=== PATIENT | female | born 1965 | race Caucasian/White ===

== ENCOUNTER 2019-06-07 08:54 | Day surgery (SDC) | payer MEDICARE, MEDICAID, SELFPAY ==
[2019-06-06 10:23] VITALS: BMI 37.8
--- NOTE | 2019-06-07 09:12 | ANES.PREANE2 ---
Pre-Anesthetic Assessment Pre-Anesthetic Assessment: Height/Weight: Height 1.52 m Weight 87.997 kg Preop Diagnosis: kidney failure Proposed Procedure: Operation Date: 06/07/19 10:30 Proposed Procedures p Colonoscopy 20597 Z12.11 Screening(Not Applicable) - Familia Elaine MD Familial anesthetic complications: Dizziness/vomiting Was Beta Fabian taken within 24 hours: N/A Last intake: NPO > 8 hrs Social: Social History: No alcohol and No tobacco Exam: Pre-Anes Outpt Exam: alert, oriented x 3, clear to auscultation bilaterally and regular rate & rhythm Airway: Cervical ROM: WNL MP: 3 Additional comments: missing Pulmonary: Pulmonary: None reported CV/HEM: CV/HEM: HTN : : Chronic renal failure Hepatic: Hepatic: None reported GI: GI: None reported Metabolic: Metabolic: DM Musc/skel: Musc/skel: Fibromyalgia and OA/DJD Neuropsych: Neuropsych: None reported Anesthetic Plan: ASA status: 4 Anesthesia: MAC Risk of > 500 ml blood loss (7ml/kg in children): No Other Pertinent Information: Eval for kidney transplant PFSH Anesthesia PFSH: Social History Smoking and tobacco status: never smoked Second hand smoke exposure: No Alcohol intake: never Adopted: No Caregiver/support person: Yes Lives independently: Yes Household members: family Housing: House Marital status: Single Highest education level completed: High School Graduate service: No Current occupational status: disabled Current occupational exposures/hazards: No Pets and animals: Yes Pets & animals: dog(s) History of recent travel: No Sexually active: No Current gender identity: Female Triston/Moravian: Orthodoxy Special triston needs: No Agree to transfusion: No Financial difficulty paying for basics: Decline to Answer Data Anesthesia Cardiac Studies: No Data to Display
[2019-06-07 09:35] VITALS: BP 191/94; PULSE 104; RESP 18; TEMP 36.4; O2SAT 98
[2019-06-07] MEDS: sodium chloride 0.9% 1,000 ML 30 ML (09:54)
[2019-06-07 09:58] LABS: Glucose Point of Care 258 mg/dL (70-110)
--- NOTE | 2019-06-07 10:42 | P.HP_ITS ---
Same Day Surgery H&P Indication for Procedure/HPI DATE OF PROCEDURE: June 07, 2019 CHIEF COMPLAINT/INDICATIONFOR SURGICAL PROCEDURE: Screening colonoscopy, no GI symptoms PREOP DIAGNOSIS: Screening colonoscopy PLANNED PROCEDRUE: Operation Date: 06/07/19 10:30 Proposed Procedures p Colonoscopy 98667 Z12.11 Screening(Not Applicable) - Familia Elaine MD Medications/Allergies* Home Medications Medication Instructions Recorded Confirmed Type amlodipine 10 mg tablet 10 mg PO QDAY 05/01/19 06/07/19 History atorvastatin 80 mg tablet 80 mg PO QDAY 05/01/19 06/07/19 History cholecalciferol (vitamin D3) 1,250 50,000 unit PO .weekly cap 05/01/19 06/07/19 History mcg (50,000 unit) capsule cyclobenzaprine 10 mg tablet 10 mg PO TID PRN 05/01/19 06/07/19 History escitalopram oxalate 20 mg tablet 40 mg PO QDAY tab 05/01/19 06/07/19 History insulin aspart U-100 100 unit/mL 15 unit SUBCUT TID 05/01/19 06/07/19 History (3 mL) subcutaneous pen insulin degludec 100 unit/mL 60 unit SUBCUT QDAY ml 05/01/19 06/07/19 History subcutaneous solution levothyroxine 50 mcg capsule 50 mcg PO QDAY 05/01/19 06/07/19 History liraglutide 0.6 mg/0.1 mL (18 mg/3 1.8 mg SUBCUT Q24H 05/01/19 06/07/19 History mL) subcutaneous pen injector metoprolol succinate 50 mg 50 mg PO QDAY 05/01/19 06/07/19 History tablet,extended release 24 hr ropinirole 5 mg tablet 10 mg PO QDAY tab 05/01/19 06/07/19 History vit B,C-folic ac 800 mcg-zinc 12.5 1 tab PO QDAY 05/01/19 06/07/19 History mg-selen-D3 2,000 unit-vit E tablet Allergies/Adverse Reactions Allergy/AdvReac Type Severity Reaction Status Date / Time acetaminophen [From Tylenol] Allergy Unknown Verified 05/01/19 14:38 codeine Allergy Unknown Verified 05/01/19 14:38 fentanyl Allergy Unknown Verified 05/01/19 14:38 gabapentin [From Neurontin] Allergy Unknown Verified 05/01/19 14:38 hydrocodone Allergy Unknown Verified 05/01/19 14:38 lisinopril Allergy Unknown Verified 05/01/19 14:38 NSAIDS (Non-Steroidal Allergy Unknown Verified 05/01/19 14:38 Anti-Inflamma ondansetron [From Zofran] Allergy Unknown Verified 05/01/19 14:38 oxycodone Allergy Unknown Verified 05/01/19 14:38 promethazine Allergy Unknown Verified 05/01/19 14:38 tramadol Allergy Unknown Verified 05/01/19 14:38 Pertinent History/Comorbid Conditions* Medical History (Updated 05/01/19 @ 15:04 by Familia Elaine MD) Anxiety Chronic back pain De Quervain's tenosynovitis Diabetes ESRD (end stage renal disease) Hyperlipidemia Hypertension Surgical History (Updated 05/01/19 @ 15:04 by Familia Elaine MD) H/O section H/O dilation and curettage H/O neck surgery fusion History of appendectomy History of carpal tunnel repair History of temporal artery biopsy Hx of cholecystectomy S/P arteriovenous (AV) fistula creation S/P dialysis catheter insertion Family History (Updated 05/01/19 @ 14:43 by Ewa Dooley RN) Diabetes Heart disease Migraines Hyperlipidemia Kidney problem Bleeding disorder Father Hypertension Stroke Denies family history of Anesthesia complication Social History Smoking and tobacco status: never smoked Second hand smoke exposure: No Alcohol intake: never Adopted: No Caregiver/support person: Yes Lives independently: Yes Household members: family Housing: House Marital status: Single Highest education level completed: High School Graduate service: No Current occupational status: disabled Current occupational exposures/hazards: No Pets and animals: Yes Pets & animals: dog(s) History of recent travel: No Sexually active: No Current gender identity: Female Sabina/Sabianism: Alevism Special sabina needs: No Agree to transfusion: No Financial difficulty paying for basics: Decline to Answer Pertinent Exam Findings alert, oriented x 3 and regular rate & rhythm Recommendations Surgery/Procedure today Coding Level of Care Code Acute Oracle Technical Developer for Danial Barfield
[2019-06-07 11:05] VITALS: BP 147/70; PULSE 82; RESP 16; TEMP 36.3; O2SAT 99
[2019-06-07 11:26] VITALS: BP 114/74; PULSE 85; RESP 18; O2SAT 100
--- NOTE | 2019-06-07 11:55 | ANE.PACU2 ---
 Inpatient post-anesthesia follow up: Airway intact: Yes Vital signs: Temperature 97.4 F Pulse Rate 85 Respiratory Rate 18 Blood Pressure 114/74 Pulse Oximetry 100 Oxygen Delivery Me thod Room Air Oxygen Flow Rate Fraction of Inspir ed Oxygen Hydration adequate: Yes Nausea and vomiting: No Mental status: Baseline
== END 2019-06-07 11:30 | disposition home or self-care (01) ==
PROVIDERS: Family Provider Internal Medicine; PCP Internal Medicine; Visit Provider Surgery
PROC: 0DJD8ZZ Inspection of Lower Intestinal Tract, Via Natural or Artificial Opening Endoscopic (ICD-10-PCS; CPT 45378; principal; 2019-06-07 10:30)
DX: Z12.11 Encounter for screening for malignant neoplasm of colon (principal); E11.22 Type 2 diabetes mellitus with diabetic chronic kidney disease; I12.0 Hypertensive chronic kidney disease with stage 5 chronic kidney disease or end stage renal disease; N18.6 End stage renal disease; E78.5 Hyperlipidemia, unspecified; Z90.49 Acquired absence of other specified parts of digestive tract; Z82.49 Family history of ischemic heart disease and other diseases of the circulatory system; Z83.3 Family history of diabetes mellitus; D12.5 Benign neoplasm of sigmoid colon; K64.8 Other hemorrhoids; M19.90 Unspecified osteoarthritis, unspecified site
CPT/HCPCS: 12345; 36416; 45380; 82962; 88305; J2704; J3490; J7030

== ENCOUNTER 2020-05-20 19:07 | Emergency (ER) | payer MEDICARE, MEDICAID, SELFPAY ==
[2020-05-20 19:16] VITALS: BP 187/94; PULSE 91; RESP 18; TEMP 36.7; O2SAT 98; BMI 39.4
--- NOTE | 2020-05-20 19:26 | ECG_ITS ---
[facility] Test Date: 2020-05-20 Pat Name: Elvi Kiaser Department: Room: Gender: Female Risk Consulting Treasury Director: : 1965 Requested By: Rebecca Wakefield Order Number: [id number] Doug MD: Heidi Singh M.D. Measurements Intervals [place] Rate: 83 P: 32 [place]: 154 QRS: -19 QRSD: 96 T: 20 QT: 440 QTc: 519 Interpretive Statements SINUS RHYTHM LOW QRS VOLTAGE IN PRECORDIAL LEADS [QRS DEFLECTION < 1.0 mV IN CHEST LEADS] VOLTAGE CRITERIA FOR LVH [MEETS CRITERIA IN ONE OF: R(aVL), S(V1), R(V5), R(V5/V6)+S(V1)] PROLONGED QT INTERVAL No previous ECG available for comparison Electronically Signed On 05-21-2020 11:46:26 EXHIBITS CURATOR by Heidi Singh M.D. [id number]
--- NOTE | 2020-05-20 19:26 | XR_ITS ---
WS: [id number] Portable AP upright chest, 05/20/2020 Clinical Data: sob Comparison: Portable chest, 01/30/2019. Findings: There is a large bore right dialysis catheter entering the internal jugular vein and ending in the superior vena cava. No pneumothorax seen. The heart is normal and the pulmonary vascularity i s not increased. No pneumonia or pneumothorax is present. The patient has had an anterior cervical di sc fusion. There are clips in the right upper quadrant from a cholecystectomy. XR/XR chest 1V portable [id number] Impression: Negative for acute cardiopulmonary abnormality.
--- NOTE | 2020-05-20 19:39 | W.ED.SOB ---
HPI - SOB/Dyspnea General: Chief Complaint: Shortness of Breath/Dyspnea Stated Complaint: graft surgery done yesterday/wheezing, SOB today Time Seen by Provider: 05/20/20 19:23 Source: patient Mode of arrival: ambulatory Limitations: no limitations History of Present Illness: HPI Narrative: 54-year-old female who states she had her AV fistula graft yesterday states she had some slight wheezing today and shortness of breath. Patient here is 98% on room air. She denies any chest pain. She had a slight cough. She had a Covid test on Tuesday that was negative. She denies any fever. She is in no distress here. She is scheduled for dialysis tomorrow and did go on Tuesday. Associated symptoms: Deny abdominal pain, chest pain, fever(s), nausea or vomiting Review of Systems Const: Denies: fever(s), chills, body aches or change in appetite Eyes: Denies: blurry vision or eye discomfort ENMT: Denies: throat pain or dental pain Card: Denies: chest pain Resp: Reports: dyspnea GI: Denies: abdominal pain, nausea, vomiting or diarrhea : Denies: dysuria Musc: Denies: neck pain or back pain Skin/Breast: Denies: rash Neuro: Denies: headache(s) Psych: Denies: depression Eduardo/Lymph: Denies: easy bruising All/Imm: Denies: urticaria PFSH ED PFSH: Medical History Anxiety Chronic back pain De Quervain's tenosynovitis Diabetes ESRD (end stage renal disease) Hyperlipidemia Hypertension Surgical History H/O section H/O dilation and curettage H/O neck surgery fusion History of appendectomy History of carpal tunnel repair History of temporal artery biopsy Hx of cholecystectomy S/P arteriovenous (AV) fistula creation S/P dialysis catheter insertion Status post colonoscopy Family History Father Bleeding disorder Other Diabetes Heart disease Hyperlipidemia Hypertension Kidney problem Migraines Stroke Denies family history of Anesthesia complication Social History Smoking and tobacco status: never smoked Second hand smoke exposure: No Alcohol intake: never Adopted: No Caregiver/support person: Yes Lives independently: Yes Household members: family Housing: House Marital status: Single Highest education level completed: High School Graduate service: No Current occupational status: disabled Current occupational exposures/hazards: No Pets and animals: Yes Pets & animals: dog(s) History of recent travel: No Sexually active: No Current gender identity: Female Sabina/Samaritan: Yarsanism Special sabina needs: No Agree to transfusion: No Financial difficulty paying for basics: Decline to Answer Physical Exam Const: COMMON NORMALS: no acute distress, patient oriented x3 and healthy appearing HENMT: COMMON NORMALS: normocephalic and atraumatic HEAD & SCALP: normocephalic and atraumatic Eye: COMMON NORMALS: Equal, round and reactive pupils present and EOMs intact bilaterally PUPIL: Yes Equal, round and reactive pupils present Neck/C-Spine: COMMON NORMALS: full ROM and supple Chest: COMMONS NORMALS: normal inspection of the chest and normal palpation of entire chest wall Resp: COMMON NORMALS: normal respiratory effort, No retractions, No use of accessory muscles and clear to auscultation bilaterally AUSCULTATION: clear to auscultation bilaterally Cardio: COMMON NORMALS: regular rate, regular rhythm and No murmurs present (Cardio) RATE: regular rate RHYTHM: regular rhythm GI: COMMON NORMALS: Normal to inspection, nondistended, normoactive bowel sounds present, Soft to palpation, non-tender and no masses PALPATION: Yes Soft to palpation Extremity: COMMON NORMALS: normal to inspection and full ROM Neuro: COMMON NORMALS: patient oriented x3, moves all extremities and no focal motor deficits Psych: COMMON NORMALS: mental status grossly normal, Normal thought process present and cooperative THOUGHT PROCESS: Normal thought process present Skin: COMMON NORMALS: no rashes or lesions noted and no wounds GENERAL SKIN EXAM: no rashes or lesions noted Course Vital Signs: Vital signs: Vital Signs Temperature 98.0 F 05/20/20 19:16 Pulse Rate 89 05/20/20 20:19 Respiratory Rate 19 H 05/20/20 20:19 Blood Pressure 156/68 05/20/20 20:19 Pulse Oximetry 92 05/20/20 20:19 MDM - SOB/Dyspnea MDM Narrative: Medical decision making narrative: Patient presents here with dyspnea with slight fluid collection. She has dialysis in the morning and she is not require any oxygen and is in no distress here. Patient had a recent Covid test believe we do not need a Covid test her again. She has no signs of acute coronary syndrome or pulmonary embolism. She is to get dialyzed tomorrow and return to ER if she has any worsening. She understands agrees to plan. Lab Data: Labs: Lab Results 05/20/20 05/20/20 Range/Units 19:50 19:50 WBC 9.1 (4.0-10.0) 10^3/ uL RBC 3.06 L (4.1-5.3) 10^6/u L Hgb 9.3 L (11.5-15.3) g/dL Hct 29.7 L (37.0-47.0) % MCV 97.1 (81-99) fL MCH 30.4 (28.0-34.0) pg MCHC 31.3 (30.0-36.0) g/dL RDW 14.0 (12.1-15.1) % Plt Count 278 (130-400) 10^3/c mm MPV 10.2 (7.4-10.4) fL Neut % (Auto) 75.8 % Lymph % (Auto) 16.5 % [place] % (Auto) 7.2 % Eos % (Auto) 0.0 % Baso % (Auto) 0.2 % Neut # (Auto) 6.86 (1.8-7.7) 10^3/u L Lymph # (Auto) 1.5 (0.8-4.8) 10^3/u L [place] # (Auto) 0.7 (0.2-0.9) 10^3/u L Eos # (Auto) 0.0 (0.0-0.8) 10^3/u L Baso # (Auto) 0.0 (0.0-0.1) 10^3/u L Nucleated RBC % (a uto) 0 % Nucleated RBCs # 0.0 /100WBC Sodium 130 L (136-145) mmol/L Potassium 4.2 (3.5-5.1) mmol/L Chloride 88 L (98-107) mmol/L Carbon Dioxide 28 (22-29) mmol/L Anion Gap 18.2 (5-19) BUN 43 H (6-20) mg/dL Creatinine 4.6 H (0.5-0.9) mg/dL GFR Calculation 9.9 L (90-130) mL/min Glucose 360 H (65-115) mg/dL Calculated Osmolal ity 295 (285-295) mOsm/k g Calcium 8.4 L (8.5-10.5) mg/dL Total Bilirubin 0.2 (0.15-1.2) mg/dL AST 14 (0-32) U/L ALT 10 (0-33) U/L Alkaline Phosphata se 91 (35-105) IU/L NT-Pro-B Natriuret Pep 2683 H (0-125) pg/mL Total Protein 6.6 (6.6-8.7) g/dL Albumin 3.2 L (3.5-5.2) g/dL Globulin 3.4 (1.3-4.6) g/dL Imaging Data^: CXR: Attestation: I personally reviewed and interpreted this imaging study as follows: My impression: no acute abnormality EKG Data^: EKG 1: Attestation: I personally reviewed and interpreted this EKG as follows: EKG Interpretation Date: 05/20/20 EKG interpretation time: 20:02 Interpretation: nsr hr [address] or t wave abnormalities qrs 96 qtc 480 Discharge Plan Discharge Patient Disposition: Home Clinical Impression: Dyspnea, ESRD on dialysis Condition: Stable Prescriptions: No Action escitalopram oxalate [Lexapro] 20 mg tablet 40 mg PO DAILY@0800 RF: 0 atorvastatin 80 mg tablet 80 mg PO DAILY@0800 RF: 0 Tresiba U-100 Insulin 100 unit/mL solution 60 unit SUBCUT DAILY@0800 RF: 0 Victoza 2-Jeffrey 0.6 mg/0.1 mL (18 mg/3 mL) pen injector 1.8 mg SUBCUT Q24H RF: 0 cyclobenzaprine 10 mg tablet 10 mg PO TID PRN (Reason: Pain) RF: 0 amlodipine [Norvasc] 10 mg tablet 10 mg PO DAILY@2000 RF: 0 Novolog Flexpen U-100 Insulin 100 unit/mL (3 mL) insulin pen 15 unit SUBCUT TID@0800,1200,2000 RF: 0 levothyroxine 50 mcg capsule 50 mcg PO DAILY@0800 RF: 0 RenaPlex-D 800 mcg-12.5 mg -2,000 unit tablet 1 tab PO DAILY@1999 RF: 0 metoprolol succinate 50 mg tablet extended release 24 hr 50 mg PO DAILY@0800 RF: 0 ropinirole [Requip] 5 mg tablet 10 mg PO DAILY@1999 RF: 0 Zyrtec 10 mg Tablet 10 mg PO DAILY@0800 RF: 0 hydromorphone 2 mg tablet 2 mg PO Q6H PRN (Reason: Pain) RF: 0 Benadryl 25 mg Capsule 25 mg PO BEDTIME@1999 RF: 0 carbidopa-levodopa 25-100 mg tablet See Rx Instructions .ROUTE .COMPLEX RF: 0 Auryxia 210 mg iron tablet 630 mg PO TID@08,, RF: 0 melatonin 5 mg Tablet,Chewable 5 mg PO BEDTIME@1999 RF: 0 Mirapex 1 tab PO DAILY@0800 RF: 0 Discharge Orders: Discharge ED (Routine); Ordered 05/20/20 Ordered By: Rebecca Wakefield Referrals: Vivienne Schulz MD [Primary Care Provider] - 1-3 days Discharge Diet: Advance as tolerated Discharge Activity: Resume usual activity Patient Instructions: Dyspnea (ED) Coding Level of Care Code ED Network Engineering Advisor for Padmajag Fwd Exam Comprehensive
[2020-05-20 19:54] LABS: Basophils % 0.2 %; Hematocrit 29.7 % (37.0-47.0); Hemoglobin 9.3 g/dL (11.5-15.3); Lymphocytes # 1.5 10^3/uL (0.8-4.8); Lymphocytes % 16.5 %; Mean Corpuscular HGB Conc 31.3 g/dL (30.0-36.0); Mean Corpuscular Hemoglobin 30.4 pg (28.0-34.0); Mean Corpuscular Volume 97.1 fL (81-99); Mean Platelet Volume 10.2 fL (7.4-10.4); Monocytes # 0.7 10^3/uL (0.2-0.9); Monocytes % 7.2 %; Neutrophils # 6.86 10^3/uL (1.8-7.7); Neutrophils % 75.8 %; Nucleated Red Blood Cells % 0 %; Platelet Count 278 10^3/cmm (130-400); Red Blood Count 3.06 10^6/uL (4.1-5.3); White Blood Count 9.1 10^3/uL (4.0-10.0)
[2020-05-20 20:05] VITALS: PULSE 85; RESP 18; O2SAT 97
[2020-05-20] MEDS: ipratropium-albuterol 3 mL Neb INHALATION (20:05)
[2020-05-20 20:12] VITALS: PULSE 88
[2020-05-20 20:19] VITALS: BP 156/68; PULSE 89; RESP 19; O2SAT 92
[2020-05-20 20:26] LABS: Alanine Aminotransferase 10 U/L (0-33); Albumin Level 3.2 g/dL (3.5-5.2); Alkaline Phosphatase 91 IU/L (35-105); Anion Gap 18.2 (5-19); Aspartate Amino Transferase 14 U/L (0-32); Blood Urea Nitrogen 43 mg/dL (6-20); Calcium 8.4 mg/dL (8.5-10.5); Carbon Dioxide 28 mmol/L (22-29); Chloride 88 mmol/L (98-107); Globulin 3.4 g/dL (1.3-4.6); Glomerular Filtration Rate 9.9 mL/min (90-130); Glucose 360 mg/dL (65-115); NT Pro B Type Natriuretic Pept 2683 pg/mL (0-125); Osmolality Calculated 295 mOsm/kg (285-295); Potassium 4.2 mmol/L (3.5-5.1); Sodium 130 mmol/L (136-145); Total Bilirubin 0.2 mg/dL (0.15-1.2); Total Protein 6.6 g/dL (6.6-8.7)
[2020-05-20 21:15] VITALS: BP 139/68; PULSE 90; RESP 16; O2SAT 93
== END 2020-05-20 21:16 | disposition home or self-care (01) ==
PROVIDERS: Emergency Provider Emergency Medicine; PCP Internal Medicine
DX: R06.00 Dyspnea, unspecified (principal); N18.6 End stage renal disease; Z99.2 Dependence on renal dialysis; I10 Essential (primary) hypertension; E78.5 Hyperlipidemia, unspecified
CPT/HCPCS: 12345; 71045; 80053; 83880; 85025; 93005; 94640; 99282; 99283

== ENCOUNTER 2020-06-15 06:00 | Emergency (ER) | payer MEDICARE, MEDICAID, SELFPAY ==
[2020-06-15 06:08] VITALS: BP 164/106; PULSE 97; RESP 28; TEMP 37.1; O2SAT 94; BMI 39.0
--- NOTE | 2020-06-15 06:47 | ED_ITS ---
HPI - General Adult General: Chief complaint: Infusion Bernice Stated complaint: Bam infusion Time Seen by Provider: 06/15/20 06:12 Source: patient Mode of arrival: ambulatory Limitations: no limitations History of Present Illness: HPI narrative: 54-year-old female who was sent here by Dr. Berman for a bam infusion. She does have a history of diabetes and is overweight. She tested positive for Covid 3 days ago. She is not requiring any oxygen here and has no symptoms at this time. Associated symptoms: Deny chest pain, dyspnea, headache(s), nausea, rash or vomiting Review of Systems Const: Denies: night sweats Eyes: Denies: blurry vision or eye discomfort ENMT: Denies: throat pain or dental pain Card: Denies: chest pain Resp: Denies: dyspnea GI: Denies: abdominal pain, nausea, vomiting or diarrhea : Denies: dysuria Musc: Denies: neck pain or back pain Skin/Breast: Denies: rash Neuro: Denies: headache(s) Psych: Denies: depression Eduardo/Lymph: Denies: easy bruising All/Imm: Denies: urticaria PFSH ED PFSH: Medical History Anxiety Chronic back pain De Quervain's tenosynovitis Diabetes ESRD (end stage renal disease) Hyperlipidemia Hypertension Surgical History H/O section H/O dilation and curettage H/O neck surgery fusion History of appendectomy History of carpal tunnel repair History of temporal artery biopsy Hx of cholecystectomy S/P arteriovenous (AV) fistula creation S/P dialysis catheter insertion Status post colonoscopy Family History Father Bleeding disorder Other Diabetes Heart disease Hyperlipidemia Hypertension Kidney problem Migraines Stroke Denies family history of Anesthesia complication Social History Smoking and tobacco status: never smoked Second hand smoke exposure: No Alcohol intake: never Adopted: No Caregiver/support person: Yes Lives independently: Yes Household members: family Housing: House Marital status: Single Highest education level completed: High School Graduate service: No Current occupational status: disabled Current occupational exposures/hazards: No Pets and animals: Yes Pets & animals: dog(s) History of recent travel: No Sexually active: No Current gender identity: Female Sabina/Orthodoxy: Taoist Special sabina needs: No Agree to transfusion: No Financial difficulty paying for basics: Decline to Answer Physical Exam Const: COMMON NORMALS: no acute distress, patient oriented x3 and healthy appearing HENMT: COMMON NORMALS: normocephalic and atraumatic HEAD & SCALP: normocephalic and atraumatic Eye: COMMON NORMALS: Equal, round and reactive pupils present and EOMs intact bilaterally PUPIL: Yes Equal, round and reactive pupils present Neck/C-Spine: COMMON NORMALS: full ROM and supple Chest: COMMONS NORMALS: normal inspection of the chest and normal palpation of entire chest wall Resp: COMMON NORMALS: normal respiratory effort, No retractions, No use of accessory muscles and clear to auscultation bilaterally AUSCULTATION: clear to auscultation bilaterally Cardio: COMMON NORMALS: regular rate, regular rhythm and No murmurs present (Cardio) RATE: regular rate RHYTHM: regular rhythm GI: COMMON NORMALS: Normal to inspection, nondistended, normoactive bowel sounds present, Soft to palpation, non-tender and no masses PALPATION: Yes Soft to palpation Extremity: COMMON NORMALS: normal to inspection and full ROM Neuro: COMMON NORMALS: patient oriented x3, moves all extremities and no focal motor deficits Psych: COMMON NORMALS: mental status grossly normal, Normal thought process present and cooperative THOUGHT PROCESS: Normal thought process present Skin: COMMON NORMALS: no rashes or lesions noted and no wounds GENERAL SKIN EXAM: no rashes or lesions noted Course Vital Signs: Vital signs: Vital Signs Temperature 98.8 F 06/15/20 06:08 Pulse Rate 79 06/15/20 07:42 Respiratory Rate 18 06/15/20 07:42 Blood Pressure 108/69 06/15/20 07:42 Pulse Oximetry 93 06/15/20 07:42 MDM - General Adult MDM Narrative: Medical decision making narrative: Patient presents here needing an outpatient BM infusion. She is well-appearing here and does meet criteria. She was observed here and is well-appearing and stable for discharge. Discharge Plan Discharge Patient Disposition: Home Clinical Impression: COVID-19 Condition: Stable Prescriptions: No Action escitalopram oxalate [Lexapro] 20 mg tablet 40 mg PO DAILY@0800 RF: 0 atorvastatin 80 mg tablet 80 mg PO DAILY@0800 RF: 0 Tresiba U-100 Insulin 100 unit/mL solution 60 unit SUBCUT DAILY@0800 RF: 0 Victoza 2-Jeffrey 0.6 mg/0.1 mL (18 mg/3 mL) pen injector 1.8 mg SUBCUT Q24H RF: 0 cyclobenzaprine 10 mg tablet 10 mg PO TID PRN (Reason: Pain) RF: 0 amlodipine [Norvasc] 10 mg tablet 10 mg PO DAILY@1999 RF: 0 Novolog Flexpen U-100 Insulin 100 unit/mL (3 mL) insulin pen 15 unit SUBCUT TID@0800,1200,1999 RF: 0 levothyroxine 50 mcg capsule 50 mcg PO DAILY@0800 RF: 0 RenaPlex-D 800 mcg-12.5 mg -2,000 unit tablet 1 tab PO DAILY@1999 RF: 0 metoprolol succinate 50 mg tablet extended release 24 hr 50 mg PO DAILY@0800 RF: 0 ropinirole [Requip] 5 mg tablet 10 mg PO DAILY@1999 RF: 0 Zyrtec 10 mg Tablet 10 mg PO DAILY@0800 RF: 0 hydromorphone 2 mg tablet 2 mg PO Q6H PRN (Reason: Pain) RF: 0 Benadryl 25 mg Capsule 25 mg PO BEDTIME@1999 RF: 0 carbidopa-levodopa 25-100 mg tablet See Rx Instructions .ROUTE .COMPLEX RF: 0 Auryxia 210 mg iron tablet 630 mg PO TID@08,, RF: 0 melatonin 5 mg Tablet,Chewable 5 mg PO BEDTIME@1999 RF: 0 Mirapex 1 tab PO DAILY@0800 RF: 0 Discharge Orders: Discharge ED (Routine); Ordered 06/15/20 Ordered By: Rebecca Wakefield Referrals: Vivienne Schulz MD [Primary Care Provider] - 1-3 days Discharge Diet: Advance as tolerated Discharge Activity: Resume usual activity Patient Instructions: Upper Respiratory Infection (ED) Coding Level of Care Code ED Corporate Bond Trader for Chg Fwd Exam Comprehensive
[2020-06-15 07:42] VITALS: BP 108/69; PULSE 79; RESP 18; O2SAT 93
[2020-06-15 08:50] VITALS: BP 174/79; PULSE 82; RESP 19; O2SAT 98
== END 2020-06-15 08:50 | disposition home or self-care (01) ==
PROVIDERS: Emergency Provider Emergency Medicine; PCP Internal Medicine
DX: U07.1 COVID-19 (principal); Z79.4 Long term (current) use of insulin; E11.22 Type 2 diabetes mellitus with diabetic chronic kidney disease; I12.0 Hypertensive chronic kidney disease with stage 5 chronic kidney disease or end stage renal disease; N18.6 End stage renal disease; E78.5 Hyperlipidemia, unspecified
CPT/HCPCS: 96365; 99283

== ENCOUNTER 2020-06-20 21:04 | Inpatient (IN) | payer MEDICARE, MEDICAID, SELFPAY ==
[2020-06-20 21:14] VITALS: BP 164/95; PULSE 131; RESP 18; TEMP 37; O2SAT 99; BMI 38.2
--- NOTE | 2020-06-20 21:32 | XRR_ITS ---
PROCEDURE INFORMATION: Exam: XR Chest Exam date and time: 06/20/2020 9:49 PM Age: 54 years old Clinical indication: Shortness of breath; Prior surgery; Surgery type: Catheter; Additional info: SOB TECHNIQUE: Imaging protocol: XR of the chest Views: 1 view. COMPARISON: CR XR chest 1V portable [id number] 05/20/2020 7:48 PM FINDINGS: Tubes, catheters and devices: Right internal jugular central venous line, tip overlying the cavoatrial junction. Lungs: The lungs are clear bilaterally. No pulmonary edema. Pleural spaces: No visible pneumothorax or pleural effusion. Heart/Mediastinum: Cardiomediastinal silhouette contour is within normal limits. Bones/joints: No emergent findings identified. XR/XR chest 1V portable [id number] IMPRESSION: 1. No radiographic findings of acute cardiopulmonary disease.
--- NOTE | 2020-06-20 21:32 | ECG_ITS ---
[facility] Test Date: 2020-06-20 Pat Name: Elvi Kaiser Department: Room: Gender: Female Seater Grinder: : 1965 Requested By: Miguel King Order Number: [id number] Doug MD: Merced Woods M.D. Measurements Intervals [place] Rate: 127 P: 41 SD: 134 QRS: -28 QRSD: 88 T: 61 QT: 404 QTc: 588 Interpretive Statements SINUS TACHYCARDIA BORDERLINE LEFT AXIS DEVIATION [QRS AXIS < -20] LEFT VENTRICULAR HYPERTROPHY AND ST-T CHANGE [VOLTAGE CRITERIA PLUS ST/T ABNORMALITY] Compared to ECG 05/20/2020 20:02:20 ST (T wave) deviation now present Sinus rhythm no longer present Prolonged QT interval no longer present Electronically Signed On 06-21-2020 19:34:15 HEAD BANDER AND LINER OPERATOR by Merced Woods M.D. [id number]
--- NOTE | 2020-06-20 21:51 | W.ED.ARRPALP ---
HPI - Arrhythmia/Palpitations General: Chief Complaint: Arrhythmia/Palpitations Stated Complaint: elevated HR Time Seen by Provider: 06/20/20 21:10 History of Present Illness: HPI narrative: 54-year-old dialysis patient who required COVID-19 on 06/13. She received a monoclonal antibody infusion Tuesday morning, and had gotten better until 2 days ago, when her cough began to worsen. She was at dialysis today, and was noted to have an increased heart rate. Evidently, there was irregular, but by the end of dialysis was more regular. She has had a significant cough, chest pain related to her cough, and some shortness of breath although she is not requiring oxygen. complaint: rapid heart beat Onset (ago): hour(s) Duration: constant Associated symptoms: Reports cough, short of breath and vomiting (post tussive); Deny anxiety or nausea Review of Systems Const: Denies: fever(s) or chills Eyes: Denies: blurry vision ENMT: Denies: swelling of lips/tongue, post nasal drip or sinus pain Card: Reports: chest pain, irregular heart rhythm and dyspnea on exertion; Denies: palpitations Resp: Reports: non-productive cough and wheezing; Denies: dyspnea or productive cough GI: Reports: vomiting (post tussive); Denies: nausea : Denies: dysuria Skin/Breast: Denies: rash Neuro: Denies: dizziness Psych: Denies: anxiety PFSH ED PFSH: Medical History (Updated 06/21/20 @ 00:13 by Tay Townsend MD) Anxiety Chronic back pain De Quervain's tenosynovitis Diabetes ESRD (end stage renal disease) Hyperlipidemia Hypertension Surgical History H/O section H/O dilation and curettage H/O neck surgery fusion History of appendectomy History of carpal tunnel repair History of temporal artery biopsy Hx of cholecystectomy S/P arteriovenous (AV) fistula creation S/P dialysis catheter insertion Status post colonoscopy Family History Father Bleeding disorder Other Diabetes Heart disease Hyperlipidemia Hypertension Kidney problem Migraines Stroke Denies family history of Anesthesia complication Social History Smoking and tobacco status: never smoked Second hand smoke exposure: No Alcohol intake: never Adopted: No Caregiver/support person: Yes Lives independently: Yes Household members: family Housing: House Marital status: Single Highest education level completed: High School Graduate service: No Current occupational status: disabled Current occupational exposures/hazards: No Pets and animals: Yes Pets & animals: dog(s) History of recent travel: No Sexually active: No Current gender identity: Female Sabina/Religious: Baptism Special sabina needs: No Agree to transfusion: No Financial difficulty paying for basics: Decline to Answer Physical Exam Const: COMMON NORMALS: alert GENERAL APPEARANCE: cooperative Eye: COMMON NORMALS: Equal, round and reactive pupils present PUPIL: Yes Equal, round and reactive pupils present Resp: EFFORT & INSPECTION: Yes tachypneic, No retractions and No uses accessory muscles AUSCULTATION: no rales, no rhonchi, wheezes and diminished lung sounds Cardio: COMMON NORMALS: regular rhythm RATE: tachycardic RHYTHM: regular rhythm GI: COMMON NORMALS: Soft to palpation PALPATION: Yes Soft to palpation Neuro: SENSORIUM/ORIENTATION: Yes alert Course Vital Signs: Vital signs: Vital Signs Temperature 98.6 F 06/20/20 21:14 Pulse Rate 104 H 06/21/20 00:23 Respiratory Rate 20 H 06/21/20 00:23 Blood Pressure 152/92 06/21/20 00:23 Pulse Oximetry 94 06/21/20 00:23 MDM - Arrhythmia/Palpitations MDM Narrative: Medical decision making narrative: 54-year-old dialysis patient who is COVID-19 positive, short of breath, and tachycardic. Oxygen saturations have been good, but respiratory rates are as high as mid 30s at times. Heart rate improved from 1 40-100 with 5 mg of metoprolol. She is getting 5 more. Chest x-ray is read as negative. Hemoglobin is 9.7, which is stable for her. Creatinine is 2 post dialysis earlier today. Potassium is 3.6. Magnesium and phosphorus are pending. Troponin is not overly elevated given her renal failure, but a second 1 can be trended. Concern in this patient for possibility of PE. We will go ahead and treat her. She has to be treated treated for CTA with hydrocortisone and Benadryl. Lab Data: Labs: Lab Results 06/20/20 06/20/2021 Range/Units 22:18 22:18 22:18 WBC 12.0 H (4.0-10.0) 10^3/ uL RBC 3.32 L (4.1-5.3) 10^6/u L Hgb 9.7 L (11.5-15.3) g/dL Hct 31.4 L (37.0-47.0) % MCV 94.6 (81-99) fL MCH 29.2 (28.0-34.0) pg MCHC 30.9 (30.0-36.0) g/dL RDW 14.7 (12.1-15.1) % Plt Count 305 (130-400) 10^3/c mm MPV 10.4 (7.4-10.4) fL Neut % (Auto) 86.4 % Lymph % (Auto) 6.8 % Stoddard % (Auto) 5.9 % Eos % (Auto) 0.0 % Baso % (Auto) 0.3 % Neut # (Auto) 10.36 H (1.8-7.7) 10^3/u L Lymph # (Auto) 0.8 (0.8-4.8) 10^3/u L Stoddard # (Auto) 0.7 (0.2-0.9) 10^3/u L Eos # (Auto) 0.0 (0.0-0.8) 10^3/u L Baso # (Auto) 0.0 (0.0-0.1) 10^3/u L Nucleated RBC % (a uto) 0 % Nucleated RBCs # 0.0 /100WBC PT 14.50 (12.1-14.9) SECO NDS INR 1.10 (0.8-1.2) APTT 33.4 (23.9-36.7) SECO NDS Sodium 133 L (136-145) mmol/L Potassium 3.6 (3.5-5.1) mmol/L Chloride 91 L (98-107) mmol/L Carbon Dioxide 28 (22-29) mmol/L Anion Gap 17.6 (5-19) BUN 9 (6-20) mg/dL Creatinine 2.0 H (0.5-0.9) mg/dL GFR Calculation 25.9 L (90-130) mL/min Glucose 240 H (65-115) mg/dL Calculated Osmolal ity 283 L (285-295) mOsm/k g Calcium 7.7 L (8.5-10.5) mg/dL Phosphorus (2.5-4.5) mg/dL Magnesium (1.7-2.3) mg/dL Total Bilirubin 0.3 (0.15-1.2) mg/dL AST 14 (0-32) U/L ALT 11 (0-33) U/L Alkaline Phosphata se 103 (35-105) IU/L Creatine Kinase 33 (26-192) U/L Troponin T Baselin e (0-10) ng/L Total Protein 6.8 (6.6-8.7) g/dL Albumin 3.2 L (3.5-5.2) g/dL Globulin 3.6 (1.3-4.6) g/dL 06/20/20 06/20/20 06/20/20 Range/Units 22:18 22:18 22:18 WBC (4.0-10.0) 10^3/ uL RBC (4.1-5.3) 10^6/u L Hgb (11.5-15.3) g/dL Hct (37.0-47.0) % MCV (81-99) fL MCH (28.0-34.0) pg MCHC (30.0-36.0) g/dL RDW (12.1-15.1) % Plt Count (130-400) 10^3/c mm MPV (7.4-10.4) fL Neut % (Auto) % Lymph % (Auto) % Stoddard % (Auto) % Eos % (Auto) % Baso % (Auto) % Neut # (Auto) (1.8-7.7) 10^3/u L Lymph # (Auto) (0.8-4.8) 10^3/u L Stoddard # (Auto) (0.2-0.9) 10^3/u L Eos # (Auto) (0.0-0.8) 10^3/u L Baso # (Auto) (0.0-0.1) 10^3/u L Nucleated RBC % (a uto) % Nucleated RBCs # /100WBC PT (12.1-14.9) SECO NDS INR (0.8-1.2) APTT (23.9-36.7) SECO NDS Sodium (136-145) mmol/L Potassium (3.5-5.1) mmol/L Chloride (98-107) mmol/L Carbon Dioxide (22-29) mmol/L Anion Gap (5-19) BUN (6-20) mg/dL Creatinine (0.5-0.9) mg/dL GFR Calculation (90-130) mL/min Glucose (65-115) mg/dL Calculated Osmolal ity (285-295) mOsm/k g Calcium (8.5-10.5) mg/dL Phosphorus 2.1 L Cancelled (2.5-4.5) mg/dL Magnesium 1.7 (1.7-2.3) mg/dL Total Bilirubin (0.15-1.2) mg/dL AST (0-32) U/L ALT (0-33) U/L Alkaline Phosphata se (35-105) IU/L Creatine Kinase (26-192) U/L Troponin T Baselin e 56 H (0-10) ng/L Total Protein (6.6-8.7) g/dL Albumin (3.5-5.2) g/dL Globulin (1.3-4.6) g/dL Discharge Plan Discharge Admit Provider: Tay Townsend Coding Level of Care Code ED Brush Holder Inspector for g Fwd Exam Detailed
[2020-06-20 22:11] VITALS: PULSE 123; RESP 18; O2SAT 99
[2020-06-20 22:21] VITALS: BP 124/97; PULSE 103; RESP 16; O2SAT 97
[2020-06-20] MEDS: metoprolol tartrate 1 mg/1 mL SDV 5 mL 5 MG IV ×2 (22:21→23:09)
--- NOTE | 2020-06-20 22:21 | PC.NURSE ---
patient family updated on patient care and plan
[2020-06-20 22:25] LABS: Basophils % 0.3 %; Hematocrit 31.4 % (37.0-47.0); Hemoglobin 9.7 g/dL (11.5-15.3); Lymphocytes # 0.8 10^3/uL (0.8-4.8); Lymphocytes % 6.8 %; Mean Corpuscular HGB Conc 30.9 g/dL (30.0-36.0); Mean Corpuscular Hemoglobin 29.2 pg (28.0-34.0); Mean Corpuscular Volume 94.6 fL (81-99); Mean Platelet Volume 10.4 fL (7.4-10.4); Monocytes # 0.7 10^3/uL (0.2-0.9); Monocytes % 5.9 %; Neutrophils # 10.36 10^3/uL (1.8-7.7); Neutrophils % 86.4 %; Nucleated Red Blood Cells % 0 %; Platelet Count 305 10^3/cmm (130-400); Red Blood Count 3.32 10^6/uL (4.1-5.3); Red Cell Distribution Width 14.7 % (12.1-15.1)
[2020-06-20 22:40] LABS: Alanine Aminotransferase 11 U/L (0-33); Albumin Level 3.2 g/dL (3.5-5.2); Alkaline Phosphatase 103 IU/L (35-105); Anion Gap 17.6 (5-19); Aspartate Amino Transferase 14 U/L (0-32); Blood Urea Nitrogen 9 mg/dL (6-20); Calcium 7.7 mg/dL (8.5-10.5); Carbon Dioxide 28 mmol/L (22-29); Chloride 91 mmol/L (98-107); Creatine Phosphokinase 33 U/L (26-192); Globulin 3.6 g/dL (1.3-4.6); Glomerular Filtration Rate 25.9 mL/min (90-130); Glucose 240 mg/dL (65-115); Osmolality Calculated 283 mOsm/kg (285-295); Potassium 3.6 mmol/L (3.5-5.1); Sodium 133 mmol/L (136-145); Total Bilirubin 0.3 mg/dL (0.15-1.2); Total Protein 6.8 g/dL (6.6-8.7)
[2020-06-20 22:42] LABS: Troponin(5th) Baseline 56 ng/L (0-10)
[2020-06-20 22:49] LABS: Partial Thromboplastin Time 33.4 SECONDS (23.9-36.7)
[2020-06-20 23:04] VITALS: BP 182/77; PULSE 110; O2SAT 96
--- NOTE | 2020-06-20 23:14 | CTR_ITS ---
PROCEDURE INFORMATION: Exam: CT Angiography Chest With Contrast Exam date and time: 06/20/2020 11:15 PM Age: 54 years old Clinical indication: Cough and shortness of breath; Prior surgery; Surgery type: Dialysis cath; Patient HX: Cough, SOB, and tachycardia. Covid +. Additional info: Tachycardia, SOB TECHNIQUE: Imaging protocol: Computed tomographic angiography of the chest with contrast. 3D rendering (Not supervised by radiologist): MIP and/or 3D reconstructed images were created by the technologist. Radiation optimization: All CT scans at this facility use at least one of these dose optimization techniques: automated exposure control; mA and/or kV adjustment per patient size (includes targeted exams where dose is matched to clinical indication); or iterative reconstruction. Contrast material: VISI 320; Contrast volume: 59 ml; Contrast route: INTRAVENOUS (IV); COMPARISON: CR XR chest 1V portable [id number] 06/20/2020 9:45 PM RADIATION DOSE METRICS: Total DLP (mGy-cm): 733.49 FINDINGS: Pulmonary arteries: No pulmonary emboli identified. Aorta: No thoracic aortic aneurysm identified. Lungs: Mild patchy airspace opacities scattered throughout both lungs. These may represent atelectasis or pneumonia. Pleural spaces: No pneumothorax. Trace left pleural effusion. Heart: Heart size within normal limits. Lymph nodes: Enlarged right paratracheal lymph node measuring 1.3 cm short axis. Enlarged aorticopulmonary window lymph node measuring 1.3 cm short axis. Enlarged subcarinal lymph node measuring 1.6 cm short axis. Enlarged right hilar lymph node measuring 2 cm short axis. Bones/joints: Status post anterior surgical fusion of the lower cervical spine. Minimal degenerative changes of the thoracic spine. Soft tissues: Unremarkable. Other findings: Images of the upper abdomen were reviewed. Status post cholecystectomy. CT/CT angio chest PE protcl [id number] IMPRESSION: 1. No pulmonary emboli identified. 2. Mild patchy airspace opacities scattered throughout both lungs. These may represent atelectasis or pneumonia. 3. Trace left pleural effusion. Radiation Dose CTDIVOL = (mGy): DLP = 733.49 (mGy-cm)
[2020-06-20 23:21] VITALS: BP 182/107; PULSE 103; O2SAT 98
[2020-06-20 23:21] LABS: Magnesium 1.7 mg/dL (1.7-2.3); Phosphorus 2.1 mg/dL (2.5-4.5)
[2020-06-20] MEDS: diphenhydrAMINE 50 mg/mL SDV 1mL IVP (23:31)
[2020-06-20] MEDS: hydrocortisone 100 mg/2 mL SDV IVP (23:32)
[2020-06-21] VITALS (65 sets, daily range): BP systolic 126–183; BP diastolic 66–102; PULSE 98–115; RESP 14–48; TEMP 36.6–37.6; O2SAT 91–100
--- NOTE | 2020-06-21 | P.HP_ITS ---
Providers/Chief Complaint Admitting Physician: Tay Townsend MD Primary Care Provider: Vivienne Schulz MD Chief Complaint: elevated HR History of Present Illness Elvi Kaiser is a 54 year old female with a past medical history of end- stage renal disease on dialysis Tuesday she does urinate, hypertension, hyperlipidemia, insulin-dependent type 2 diabetes mellitus, hypothyroidism, recent history of COVID-19 diagnosis status post bam infusion on 06/15/2020 who presents to [facility] from dialysis due to complaints of worsening cough, increased shortness of breath, and sinus tachycardia heart rates in the 160s. Patient tells me that since her diagnosis of COVID-19 on 06/12/2020 she has had a cough, shortness of breath, no particular fevers, she received a bad infusion on the , she was feeling better, but a few days ago she started developing severe coughs, with posttussive emesis, no hemoptysis, no calf pain or calf swelling, no chest pain, no headache, no blurry vision. She tells me that she has had surgeries for her AV fistula back in April and again in May. She was in dialysis this afternoon, when the nurses noted that her heart rate was in the 160s, they noted that it was irregular, no EKG was obtained, after dialysis they rechecked it and heart rate was still high and irregular, given her complaints of cough and shortness of breath she was instructed to come to the emergency room. In the emergency room patient's heart rates were as high as 140s, sinus tachycardia, no acute ST-T wave changes chest x-ray no focal pneumonia, baseline troponin 58, no chest pain complaints, no shortness of breath complaints, she is saturating high 90s on room air, she is a bit tachypneic, quite hypertensive, improving with metoprolol. The plan is for her to have a CT angiogram to evaluate for pulmonary emboli, and then get dialysis tomorrow morning, brine supervisor been consulted. Review of Systems Const: Denies: fever(s), chills, fatigue or malaise Eyes: Denies: change in vision or blurry vision ENMT: Denies: nasal congestion Card: Denies: chest pain, palpitations, edema, syncope or pre-syncope Resp: Reports: dyspnea and non-productive cough; Denies: productive cough or wheezing GI: Denies: abdominal pain, nausea, vomiting, hematemesis, diarrhea, constipation, hematochezia or melena : Denies: flank pain, dysuria or urinary frequency Musc: Denies: neck pain or back pain Skin/Breast: Denies: rash Neuro: Denies: headache(s), dizziness or vertigo Endo: Denies: polyuria or polydipsia Medications/Allergies Home Medications Medication Instructions Recorded Confirmed Last Taken Type amlodipine 10 mg tablet 10 mg PO DAILY@199905/01/19 05/20/20 05/19/20 History atorvastatin 80 mg tablet 80 mg PO DAILY@79905/01/19 05/20/20 05/20/20 History cyclobenzaprine 10 mg tablet 10 mg PO TID PRN 05/01/19 05/20/20 06/06/19 History escitalopram oxalate 20 mg tablet 40 mg PO DAILY@0800 tab 05/01/19 05/20/20 05/20/20 History insulin aspart U-100 100 unit/mL 15 unit SUBCUT TID@0800,1200,199905/01/19 05/20/20 05/20/20 History (3 mL) subcutaneous pen insulin degludec 100 unit/mL 60 unit SUBCUT DAILY@0800 ml 05/01/19 05/20/20 05/20/20 History subcutaneous solution levothyroxine 50 mcg capsule 50 mcg PO DAILY@0805/01/19 05/20/20 05/20/20 His tory liraglutide 0.6 mg/0.1 mL (18 mg/3 1.8 mg SUBCUT Q24H 05/01/19 05/20/20 05/20/20 History mL) subcutaneous pen injector metoprolol succinate 50 mg 50 mg PO DAILY@0805/01/19 05/20/20 05/20/20 History tablet,extended release 24 hr ropinirole 5 mg tablet 10 mg PO DAILY@1999 tab 05/01/19 05/20/20 05/19/20 History vit B,C-folic ac 800 mcg-zinc 12.5 1 tab PO DAILY@199905/01/19 05/20/20 05/19/20 History mg-selen-D3 2,000 unit-vit E tablet Mirapex 1 tab PO DAILY@79905/20/20 05/20/20 Unknown History carbidopa-levodopa See Rx Instructions .ROUTE .COMPLEX 05/20/20 05/20/20 Unknown History cetirizine [Zyrtec] 10 mg PO DAILY@79905/20/20 05/20/20 05/20/20 History diphenhydramine HCl [Benadryl] 25 mg PO BEDTIME@199905/20/20 05/20/20 05/19/20 History ferric citrate [Auryxia] 630 mg PO TID@05/20/20 05/20/20 05/20/20 History hydromorphone 2 mg PO Q6H PRN 05/20/20 05/20/20 05/20/20 History melatonin 5 mg PO BEDTIME@199905/20/20 05/20/20 05/19/20 History Allergies Allergy/AdvReac Type Severity Reaction Status Date / Time acetaminophen [From Tylenol] Allergy Unknown Verified 06/20/20 21:20 codeine Allergy Unknown Verified 06/20/20 21:20 fentanyl Allergy Unknown Verified 06/20/20 21:20 gabapentin [From Neurontin] Allergy Unknown Verified 06/20/20 21:20 hydrocodone Allergy Unknown Verified 06/20/20 21:20 lisinopril Allergy Unknown Verified 06/20/20 21:20 NSAIDS (Non-Steroidal Allergy Unknown Verified 06/20/20 21:20 Anti-Inflamma ondansetron [From Zofran] Allergy Unknown Verified 06/20/20 21:20 oxycodone Allergy Unknown Verified 06/20/20 21:20 promethazine Allergy Unknown Verified 06/20/20 21:20 tramadol Allergy Unknown Verified 06/20/20 21:20 PFSH Acute PFSH: Medical History Anxiety Chronic back pain De Quervain's tenosynovitis Diabetes ESRD (end stage renal disease) Hyperlipidemia Hypertension Surgical History H/O section H/O dilation and curettage H/O neck surgery fusion History of appendectomy History of carpal tunnel repair History of temporal artery biopsy Hx of cholecystectomy S/P arteriovenous (AV) fistula creation S/P dialysis catheter insertion Status post colonoscopy Family History Father Bleeding disorder Other Diabetes Heart disease Hyperlipidemia Hypertension Kidney problem Migraines Stroke Denies family history of Anesthesia complication Social History Smoking and tobacco status: never smoked Second hand smoke exposure: No Alcohol intake: never Adopted: No Caregiver/support person: Yes Lives independently: Yes Household members: family Housing: House Marital status: Single Highest education level completed: High School Graduate service: No Current occupational status: disabled Current occupational exposures/hazards: No Pets and animals: Yes Pets & animals: dog(s) History of recent travel: No Sexually active: No Current gender identity: Female Sabina/Moravian: Bahai Special sabina needs: No Agree to transfusion: No Financial difficulty paying for basics: Decline to Answer Vitals/I&O/Wt Last Vital Signs Temp 98.6 F 06/20/20 21:14 Pulse 103 H 06/20/20 23:21 Resp 16 06/20/20 22:21 BP 182/107 06/20/20 23:21 Pulse Ox 98 06/20/20 23:21 Weight last 48 hrs Weight 88.813 kg Physical Exam Const: COMMON NORMALS: no acute distress and patient oriented x3 GENERAL APPEARANCE: cooperative and comfortable HENMT: COMMON NORMALS: normocephalic HEAD & SCALP: normocephalic Eye: COMMON NORMALS: Equal, round and reactive pupils present and EOMs intact bilaterally GENERAL EYE: appearance normal, both eyes and all related structures PUPIL: Yes Equal, round and reactive pupils present Neck/C-Spine: COMMON NORMALS: full ROM, no lymphadenopathy, no JVD and Thyroid normal THYROID: Thyroid normal Lymph: LYMPHATIC: no lymphadenopathy noted Chest: OTHER: Right tunneled dialysis catheter in place Resp: COMMON NORMALS: normal respiratory effort, No retractions, No use of accessory muscles and clear to auscultation bilaterally AUSCULTATION: clear to auscultation bilaterally Cardio: COMMON NORMALS: regular rate, regular rhythm, S1 normal heart sound present, S2 normal heart sound present, No gallops present (Cardio), No clicks present (Cardio) and No murmurs present (Cardio) RATE: regular rate RHYTHM: regular rhythm HEART SOUNDS: S1 normal heart sound present and S2 normal heart sound present GI: COMMON NORMALS: Normal to inspection, nondistended, normoactive bowel sounds present, Soft to palpation, non-tender and No hepatosplenomegaly present PALPATION: Yes Soft to palpation and Yes No hepatosplenomegaly present Extremity: COMMON NORMALS: normal to inspection, full ROM and no pedal edema Neuro: COMMON NORMALS: patient oriented x3, CN's II-XII intact bilaterally, moves all extremities and no focal motor deficits Psych: COMMON NORMALS: mental status grossly normal, Normal thought process p resent and cooperative Skin: NARRATIVE SKIN EXAM: Left arm AV fistula Data : 06/20/20 22:18 06/20/20 22:18 A&P Assessment and plan (1) Sinus tachycardia: -Concerns for sinus tachycardia related to possible pulmonary emboli, will obtain CT angiogram -No focal signs of pneumonia, no significant radiographic evidence so far of COVID-19, pro-Ashkan, CRP, will obtain ABG -We will obtain a UA -We will obtain blood cultures, she does have a right temporary dialysis catheter placed in April, in addition has had recent fistula surgeries in the left arm, however left arm does not have overlying cellulitis -Baseline troponin is 58, trend troponins, serial EKGs, telemetry monitoring, cardiac echo -Has complaints of shortness of breath and cough, Tessalon Perles for cough, Advair, albuterol Status: Acute (2) Insulin dependent type 2 diabetes mellitus: Status: Acute (3) Hyperlipidemia: Status: Acute (4) Hypothyroidism: Status: Acute (5) Chronic back pain: Status: Acute (6) Hypertension: Status: Acute Additional A&P Information Full code, heparin for DVT prophylaxis Attestations Medical Necessity Statement*: Patient requires hospitalization, outpatient with observation, for sinus tachycardia Coding Level of Care Code Acute Senior Back End Java Developer for g Fwd Diagnoses Sinus tachycardia R00.0 Insulin dependent type 2 diabetes mellitus E11.9; Z79.4 Hyperlipidemia E78.5 Hypothyroidism E03.9 Chronic back pain M54.9; G89.29 Hypertension I10
[2020-06-21] MEDS: iodixanol 320 mg/mL 100mL Btl IV (01:28)
[2020-06-21] MEDS: labetalol 5 mg/mL SDV 20mL 10 MG IVP (02:08)
[2020-06-21] MEDS: heparin 5,000 unit/mL INJ 1 mL IV (02:08)
[2020-06-21] MEDS: heparin drip 25,000 UNIT/500 ML PREMIX 26 UNIT IV (02:10)
--- NOTE | 2020-06-21 02:26 | PC.NURSE ---
Patient states the dialysis center has her home medication list. She states it should all be up to date, however unable to verify home medications at this time. Patient states that she has chronic back pain, but that she does not have any more pain than normal at this time. Patient arrived to the floor at 0145 after report was received via phone. Patient is alert and oriented and is not in any distress. Patient is able to ambulate with stand-by assist. Patient is on room air, in ST at 102, and does not have any chest pain. Blood pressure is 183/102, PRN Labetalol given.
--- NOTE | 2020-06-21 03:32 | ECG_ITS ---
[facility] Test Date: 2020-06-21 Pat Name: Elvi Kaiser Department: Room: 107 Gender: Female Application Development Liaison: : 1965 Requested By: Miguel King Order Number: [id number] Doug MD: Merced Woods M.D. Measurements Intervals [place] Rate: 101 P: OK: QRS: -27 QRSD: 86 T: 21 QT: 419 QTc: 545 Interpretive Statements Sinus tachycardia BORDERLINE LEFT AXIS DEVIATION [QRS AXIS < -20] MODERATE VOLTAGE CRITERIA FOR LVH, CONSIDER NORMAL VARIANT [MEETS CRITERIA IN ONE OF: R(aVL), S(V1), R(V5), R(V5/V6)+S(V1)] ABNORMAL RHYTHM ECG Compared to ECG 06/20/2020 21:11:43 Sinus tachycardia no longer present ST (T wave) deviation no longer present Electronically Signed On 06-21-2020 19:41:22 WOODWINDS TEACHER by Merced Woods M.D. [email or web address] [id number]
--- NOTE | 2020-06-21 03:43 | PC.NURSE ---
Dr. Townsend notified of patient's chest CT report result in computer. Ordered to stop heparin drip. Ordered to start Heparin SQ q12hr 5000 uniits.
[2020-06-21 05:56] LABS: Basophils % 0.1 %; Hematocrit 28.9 % (37.0-47.0); Hemoglobin 8.8 g/dL (11.5-15.3); Lymphocytes # 0.4 10^3/uL (0.8-4.8); Lymphocytes % 5.3 %; Mean Corpuscular HGB Conc 30.4 g/dL (30.0-36.0); Mean Corpuscular Hemoglobin 28.9 pg (28.0-34.0); Mean Corpuscular Volume 94.8 fL (81-99); Mean Platelet Volume 10.5 fL (7.4-10.4); Monocytes # 0.2 10^3/uL (0.2-0.9); Monocytes % 2.3 %; Neutrophils % 91.5 %; Nucleated Red Blood Cells % 0 %; Platelet Count 281 10^3/cmm (130-400); Red Blood Count 3.05 10^6/uL (4.1-5.3); Red Cell Distribution Width 15.1 % (12.1-15.1)
--- NOTE | 2020-06-21 06:00 | ECG_ITS ---
[facility] Test Date: 2020-06-21 Pat Name: Elvi Kaiser Department: Room: 107 Gender: Female Powder Coater: : 1965 Requested By: Tay Townsend Order Number: [id number] Doug MD: Merced Woods M.D. Measurements Intervals [place] Rate: 97 P: 58 IN: 165 QRS: -32 QRSD: 93 T: 5 QT: 368 QTc: 470 Interpretive Statements SINUS RHYTHM MARKED LEFT AXIS DEVIATION [QRS AXIS < -30] PATTERN CONSISTENT WITH PULMONARY DISEASE INCOMPLETE RIGHT BUNDLE BRANCH BLOCK [90+ ms QRS DURATION, TERMINAL R IN V1/V2, 40+ ms S IN I/aVL/V4/V5/V6] MODERATE VOLTAGE CRITERIA FOR LVH, CONSIDER NORMAL VARIANT [MEETS CRITERIA IN ONE OF: R(aVL), S(V1), R(V5), R(V5/V6)+S(V1)] NONSPECIFIC T-WAVE ABNORMALITY Compared to ECG 06/21/2020 03:34:17 Incomplete right bundle-branch block now present T-wave abnormality now present Supraventricular tachycardia no longer present Electronically Signed On 06-21-2020 19:42:19 SWITCH TENDER by Merced Woods M.D. [email or web address] ([id number]
[2020-06-21 06:23] LABS: Lactic Sepsis W/Reflex 1.5 mmol/L (0.5-2.2)
[2020-06-21 06:29] LABS: Alanine Aminotransferase 9 U/L (0-33); Albumin Level 2.9 g/dL (3.5-5.2); Alkaline Phosphatase 103 IU/L (35-105); Anion Gap 16.1 (5-19); Aspartate Amino Transferase 12 U/L (0-32); Blood Urea Nitrogen 14 mg/dL (6-20); Calcium 7.7 mg/dL (8.5-10.5); Carbon Dioxide 27 mmol/L (22-29); Chloride 92 mmol/L (98-107); Globulin 3.3 g/dL (1.3-4.6); Glomerular Filtration Rate 18.3 mL/min (90-130); Glucose 387 mg/dL (65-115); Magnesium 1.8 mg/dL (1.7-2.3); Osmolality Calculated 289 mOsm/kg (285-295); Phosphorus 2.9 mg/dL (2.5-4.5); Potassium 4.1 mmol/L (3.5-5.1); Sodium 131 mmol/L (136-145); Thyroid Stimulating Hormone 2.85 uIU/mL (0.27-4.20); Total Bilirubin 0.3 mg/dL (0.15-1.2); Total Protein 6.2 g/dL (6.6-8.7)
[2020-06-21 07:24] LABS: Glucose Point of Care 390 mg/dL (70-110)
[2020-06-21 07:34] LABS: Troponin 5 6HR 57.48 ng/L (0-10); Troponin 5 6HR Delta 1.48 ng/L (0-12)
[2020-06-21] MEDS: levothyroxine 50 mcg Tablet PO (08:13)
[2020-06-21] MEDS: metoprolol succinate ER (24 HR) 50 mg Tablet PO (08:13)
[2020-06-21] MEDS: atorvastatin 40 mg Tablet 80 MG PO (08:14)
[2020-06-21] MEDS: escitalopram 10 mg Tablet 40 MG PO (08:14)
--- NOTE | 2020-06-21 08:23 | PM.CONSULT ---
Providers/Reason For Consult Consulting Physican/Specialty*: Simi Kunz DO, telenephrology Reason for Consult*: ESRD Attending Physician: Tay Townsend MD Primary Care Provider: Vivienne Schulz MD History of Present Illness History of Present Illness Elvi Kaiser is a 54 year old female sent to Er from dialysis for evaluation of tachycardia. States she arrived to HD yesterday with very high BP and heart rate. She completed treatment with 2 L UF, then sent to ER. Diagnosed with COVID 06/13/20. Received IV Ab treatment 06/15/20. Breathing had improved, but she developed cough a couple of days ago. Had failed AVF LUE, converted to AVG. Has not yet been cannulated. Using tunneled right IJ HD catheter. Review of Systems General: Reports: 10 or more systems reviewed and unremarkable except in HPI and below Card: Denies: chest pain Meds/Allergies Home Medications and Allergies Home Medications Medication Instructions Recorded Confirmed Last Taken Type amlodipine 10 mg tablet 10 mg PO DAILY@199905/01/19 05/20/20 05/19/20 History atorvastatin 80 mg tablet 80 mg PO DAILY@0800 05/01/19 05/20/20 05/20/20 History cyclobenzaprine 10 mg tablet 10 mg PO TID PRN 05/01/19 05/20/20 06/06/19 History escitalopram oxalate 20 mg tablet 40 mg PO DAILY@0800 tab 05/01/19 05/20/20 05/20/20 History insulin aspart U-100 100 unit/mL 15 unit SUBCUT TID@0800,1200,199905/01/19 05/20/20 05/20/20 History (3 mL) subcutaneous pen insulin degludec 100 unit/mL 60 unit SUBCUT DAILY@0800 ml 05/01/19 05/20/20 05/20/20 History subcutaneous solution levothyroxine 50 mcg capsule 50 mcg PO DAILY@0800 05/01/19 05/20/20 05/20/20 History liraglutide 0.6 mg/0.1 mL (18 mg/3 1.8 mg SUBCUT Q24H 05/01/19 05/20/20 05/20/20 History mL) subcutaneous pen injector metoprolol succinate 50 mg 50 mg PO DAILY@0800 05/01/19 05/20/2021 History tablet,extended release 24 hr ropinirole 5 mg tablet 10 mg PO DAILY@1999 tab 05/01/19 05/20/20 05/19/20 History vit B,C-folic ac 800 mcg-zinc 12.5 1 tab PO DAILY@199905/01/19 05/20/20 05/19/20 History mg-selen-D3 2,000 unit-vit E tablet Mirapex 1 tab PO DAILY@79905/20/20 05/20/20 Unknown History carbidopa-levodopa See Rx Instructions .ROUTE .COMPLEX 05/20/20 05/20/20 Unknown History cetirizine [Zyrtec] 10 mg PO DAILY@79905/20/20 05/20/20 05/20/20 History diphenhydramine HCl [Benadryl] 25 mg PO BEDTIME@199905/20/20 05/20/20 05/19/20 History ferric citrate [Auryxia] 630 mg PO TID@05/20/20 05/20/20 05/20/20 History hydromorphone 2 mg PO Q6H PRN 05/20/20 05/20/20 05/20/20 History melatonin 5 mg PO BEDTIME@199905/20/20 05/20/20 05/19/20 History Allergies Allergy/AdvReac Type Severity Reaction Status Date / Time acetaminophen [From Tylenol] Allergy ALGY-Hives Verified 06/21/20 01:36 codeine Allergy ALGY-Hives Verified 06/21/20 01:36 fentanyl Allergy ALGY-Hives Verified 06/21/20 01:36 gabapentin [From Neurontin] Allergy ALGY-Hives Verified 06/21/20 01:36 hydrocodone Allergy ALGY-Hives Verified 06/21/20 01:36 influenza virus vaccine qs Allergy ALGY-Hives Verified 06/21/20 02:29 [id number](65 years up) [From Fluad Quad (65y up)(PF)] Iodinated Contrast Media Allergy ALGY-Anaphy Verified 06/21/20 02:30 laxis lisinopril Allergy ADR-Cough Verified 06/21/20 01:36 NSAIDS (Non-Steroidal Allergy ALGY-Hives Verified 06/21/20 01:36 Anti-Inflamma oxycodone Allergy ALGY-Hives Verified 06/21/20 01:36 promethazine Allergy Unknown Verified 06/21/20 01:36 tramadol Allergy ALGY-Hives Verified 06/21/20 01:36 vaccine adjuvant emulsion Allergy ALGY-Hives Verified 06/21/20 02:29 [id number] [From SpotMe (65y up)(PF)] Current Medications Current Medications Generic Name Dose Route Start Last Admin Trade Name Freq PRN Reason Stop Dose Admin Labetalol HCl 10 mg 06/21/20 01:32 06/21/20 02:08 Labetalol 5 Mg/Ml Sdv 20ml IVP 10 mg Q4H PRN Administration FOR SBP>180 or DBP>100, hold if HR<60 PFSH Acute PFSH: Medical History Anxiety Chronic back pain De Quervain's tenosynovitis Diabetes ESRD (end stage renal disease) Hyperlipidemia Hypertension Surgical History H/O section H/O dilation and curettage H/O neck surgery fusion History of appendectomy History of carpal tunnel repair History of temporal artery biopsy Hx of cholecystectomy S/P arteriovenous (AV) fistula creation S/P dialysis catheter insertion Status post colonoscopy Family History Father Bleeding disorder Other Diabetes Heart disease Hyperlipidemia Hypertension Kidney problem Migraines Stroke Denies family history of Anesthesia complication Social History Smoking and tobacco status: never smoked Second hand smoke exposure: No Alcohol intake: never Adopted: No Caregiver/support person: Yes Lives independently: Yes Household members: family Housing: House Marital status: Single Highest education level completed: High School Graduate service: No Current occupational status: disabled Current occupational exposures/hazards: No Pets and animals: Yes Pets & animals: dog(s) History of recent travel: No Sexually active: No Current gender identity: Female Sabina/Voodoo: Anabaptist Special sabina needs: No Agree to transfusion: No Financial difficulty paying for basics: Decline to Answer Vitals/I&O/Wt Last Vital Signs Temp 98.4 F 06/21/20 08:00 Pulse 111 H 06/21/20 08:00 Resp 16 06/21/20 08:00 BP 174/80 06/21/20 08:00 Pulse Ox 97 06/21/20 08:00 06/20/20 06/21/20 06/21/20 22:59 06:59 14:59 Intake Total 142.467 / 142.467 Balance 142.467 / 142.467 Weight last 48 hrs Weight 91.081 kg Weight 88.813 kg Physical Exam Const: COMMON NORMALS: no acute distress GENERAL APPEARANCE: cooperative Neck/C-Spine: OTHER: tunneled right IJ catheter Extremity: GENERAL: No edema OTHER: left forearm loop AVG Data Labs: Other Labs: albumin 2.9, Ca 7.7, Phos 2.9, Mg 1.8 Micro: Micro: Microbiology 06/21/20 04:48 Blood Culture - Pr eliminary Blood SPECIMEN [facility] 06/21/20 04:42 Blood Culture - Pr eliminary Blood SPECIMEN [facility] Other Data: Other data: CTA: 1. No pulmonary emboli identified. 2. Mild patchy airspace opacities scattered throughout both lungs. These may represent atelectasis or pneumonia. 3. Trace left pleural effusion. A&P Additional A&P Information 1. ESRD, s/p CTA (no evidence PE) 2. Sinus tachycardia 3. COVID 4. IDDM, hypertension 5. Anemia Plan: HD today. 2.5 hours, no UF. Next HD Tuesday06/23/20. 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
[2020-06-21] MEDS: heparin 5,000 unit/mL INJ 1 mL 5000 UNIT SUBCUT ×2 (08:26→21:17)
[2020-06-21] MEDS: albuterol 8 gm MDI 2 PUFF INHALATION ×2 (09:22→18:33)
[2020-06-21 09:28] LABS: NT Pro B Type Natriuretic Pept 3337 pg/mL (0-125)
[2020-06-21 09:33] LABS: Hepatitis B Surface Antigen Non-Reactive (Nonreactive)
[2020-06-21 11:51] LABS: Glucose Point of Care 179 mg/dL (70-110)
--- NOTE | 2020-06-21 12:00 | PC.NURSE ---
Pt transferred to dialysis.
[2020-06-21 14:08] LABS: Urine Appearance Hazy (CLEAR); Urine Color Yellow (Yellow)
[2020-06-21 14:09] LABS: Add Urine Microscopic? YES; Bilirubin Urine Neg (Negative); Blood Urine Neg (Negative); Glucose Urine UA 4+ (Normal); Ketones Urine 1+ (Negative); Leukocyte Esterase Urine Negative (Negative); Nitrate Urine Negative (Negative); Protein Urine 3+ (Negative); Urobilinogen Urine Norm (Negative); pH Urine 8 (5-7)
[2020-06-21 14:18] LABS: Sulfosalicylic Acid Urine Positive (Negative)
[2020-06-21 14:20] LABS: Bacteria Urine 4+ /hpf; Squamous Epithelial Cell Urine 0-4 /hpf (0-5); WBC Urine 0-4 /hpf (0-5)
[2020-06-21 14:21] LABS: Add Urine Culture? Yes; Mucus Urine 1+ /hpf
--- NOTE | 2020-06-21 14:57 | PC.NURSE ---
Pt transferred to [facility]-surg floor room 273. Report given to CIARA Darling
--- NOTE | 2020-06-21 15:45 | P.PN_ITS ---
Subjective Subjective: Interval history: Patient stated she was feeling better, respiratory status improved. No fever, chills, nausea or vomiting. Medications: Reviewed: Yes Vitals/I&O/Wt Last Vital Signs Temp 98.4 F 06/21/20 08:00 Pulse 115 H 06/21/20 12:00 Resp 29 H 06/21/20 12:00 BP 167/101 06/21/20 12:00 Pulse Ox 97 06/21/20 12:00 06/21/20 06/21/20 06/21/20 06:59 14:59 22:59 Intake Total 142.467 / 142.467 120 / 120 Balance 142.467 / 142.467 120 / 120 Weight last 48 hrs Weight 91.081 kg Weight 88.813 kg Physical Exam Const: COMMON NORMALS: no acute distress and patient oriented x3 GENERAL APPEARANCE: cooperative and comfortable HENMT: COMMON NORMALS: normocephalic HEAD & SCALP: normocephalic Eye: COMMON NORMALS: Equal, round and reactive pupils present and EOMs intact bilaterally GENERAL EYE: appearance normal, both eyes and all related structures PUPIL: Yes Equal, round and reactive pupils present Neck/C-Spine: COMMON NORMALS: full ROM, no lymphadenopathy, no JVD and Thyroid normal THYROID: Thyroid normal Lymph: LYMPHATIC: no lymphadenopathy noted Chest: OTHER: Right tunneled dialysis catheter in place Resp: COMMON NORMALS: normal respiratory effort, No retractions, No use of accessory muscles and clear to auscultation bilaterally AUSCULTATION: clear to auscultation bilaterally Cardio: COMMON NORMALS: no JVD, regular rate, regular rhythm, S1 normal heart sound present, S2 normal heart sound present, No gallops present (Cardio), No clicks present (Cardio) and No murmurs present (Cardio) RATE: regular rate RHYTHM: regular rhythm HEART SOUNDS: S1 normal heart sound present and S2 normal heart sound present GI: COMMON NORMALS: Normal to inspection, nondistended, normoactive bowel sounds present, Soft to palpation, non-tender and No hepatosplenomegaly present PALPATION: Yes Soft to palpation and Yes No hepatosplenomegaly present Extremity: COMMON NORMALS: normal to inspection, full ROM and no pedal edema Neuro: COMMON NORMALS: patient oriented x3, CN's II-XII intact bilaterally, moves all extremities and no focal motor deficits Psych: COMMON NORMALS: mental status grossly normal, Normal thought process present and cooperative THOUGHT PROCESS: Normal thought process present Skin: NARRATIVE SKIN EXAM: Left arm AV fistula Data : 06/21/20 04:42 06/21/20 04:42 Micro: Microbiology 06/21/20 04:48 Blood Culture - Preliminary Blood SPECIMEN COLLECTED 06/21/20 04:42 Blood Culture - Preliminary Blood SPECIMEN COLLECTED A&P Assessment and plan (1) Sinus tachycardia: Improving No respiratory distress - supplemental [address] chest PE protocol - negative for PE - Mild patchy airspace opacities scattered throughout both lungs. These may represent atelectasis or pneumonia. - Monitor on telemetry - Labs stable - May consider ECHO once HR improves Status: Acute (2) Insulin dependent type 2 diabetes mellitus: Sliding scale insulin HD - diabetic diet Achs BS checks Status: Acute (3) Hyperlipidemia: Status: Acute (4) Hypothyroidism: Status: Acute (5) Chronic back pain: Status: Acute (6) Hypertension: Status: Acute (7) ESRD (end stage renal disease): Nephrology on consult Awaiting plan for HD Last HD prior to admission Status: Acute (8) COVID-19: Status: Acute Additional A&P Information Full code, heparin for DVT prophylaxis Attestations Medical Necessity Statement*: Will require further hospitalization for management of sinus tachycardia, repiratory distres and HD Time Spent in Patient Care: Greater than 35 minutes (>than 50% of time spent in counselling and/or direct pt care on unit) . 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
[2020-06-21 16:42] LABS: Glucose Point of Care 98 mg/dL (70-110)
[2020-06-21] MEDS: ropinirole 0.25 mg Tablet 0.5 MG PO (21:16)
[2020-06-21] MEDS: amlodipine 10 mg Tablet PO (21:17)
[2020-06-21 21:37] LABS: Glucose Point of Care 244 mg/dL (70-110)
[2020-06-22] VITALS (11 sets, daily range): BP systolic 147–192; BP diastolic 73–79; PULSE 98–128; RESP 16–20; TEMP 36.4–36.9; O2SAT 91–98
[2020-06-22] MEDS: albuterol 8 gm MDI 2 PUFF INHALATION ×3 (03:49→19:30)
--- NOTE | 2020-06-22 06:00 | ECG_ITS ---
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 Measurements Intervals [place] Rate: 103 P: 55 MN: 162 QRS: -33 QRSD: 90 T: 58 QT: 400 QTc: 524 Interpretive Statements SINUS TACHYCARDIA MARKED LEFT AXIS DEVIATION [QRS AXIS < -30] LEFT VENTRICULAR HYPERTROPHY AND ST-T CHANGE [VOLTAGE CRITERIA PLUS ST/T ABNORMALITY] POSSIBLE ANTERIOR MYOCARDIAL INFARCTION [30 ms Q WAVE IN V3/V4, OR R < 0.2 mV IN V4], PROBABLY OLD Compared to ECG 06/21/2020 06:15:29 ST (T wave) deviation now present Myocardial infarct finding now present Sinus rhythm no longer present Incomplete right bundle-branch block no longer present T-wave abnormality no longer present Electronically Signed On 06-22-2020 22:47:24 CDT by Merced Woods M.D. [id number]
[2020-06-22 06:31] LABS: Basophils % 0.3 %; Hematocrit 27.7 % (37.0-47.0); Hemoglobin 8.4 g/dL (11.5-15.3); Lymphocytes # 1.2 10^3/uL (0.8-4.8); Lymphocytes % 13.4 %; Mean Corpuscular HGB Conc 30.3 g/dL (30.0-36.0); Mean Corpuscular Hemoglobin 28.8 pg (28.0-34.0); Mean Corpuscular Volume 94.9 fL (81-99); Mean Platelet Volume 10.2 fL (7.4-10.4); Monocytes # 0.6 10^3/uL (0.2-0.9); Monocytes % 7.2 %; Neutrophils # 6.86 10^3/uL (1.8-7.7); Neutrophils % 78.5 %; Nucleated Red Blood Cells % 0 %; Platelet Count 264 10^3/cmm (130-400); Red Blood Count 2.92 10^6/uL (4.1-5.3); Red Cell Distribution Width 15.2 % (12.1-15.1); White Blood Count 8.7 10^3/uL (4.0-10.0)
[2020-06-22 06:58] LABS: Lactate (Lactic Acid level) 1.1 mmol/L (0.5-2.2)
[2020-06-22 06:59] LABS: Alanine Aminotransferase 10 U/L (0-33); Albumin Level 2.8 g/dL (3.5-5.2); Alkaline Phosphatase 86 IU/L (35-105); Aspartate Amino Transferase 16 U/L (0-32); Blood Urea Nitrogen 18 mg/dL (6-20); Calcium 8.4 mg/dL (8.5-10.5); Carbon Dioxide 26 mmol/L (22-29); Chloride 93 mmol/L (98-107); Globulin 3.2 g/dL (1.3-4.6); Glomerular Filtration Rate 16.2 mL/min (90-130); Glucose 172 mg/dL (65-115); Magnesium 1.8 mg/dL (1.7-2.3); Osmolality Calculated 276 mOsm/kg (285-295); Phosphorus 3.6 mg/dL (2.5-4.5); Sodium 130 mmol/L (136-145); Total Bilirubin 0.2 mg/dL (0.15-1.2)
[2020-06-22 07:04] LABS: Anion Gap 14.9 (5-19); Potassium 3.9 mmol/L (3.5-5.1)
[2020-06-22 07:08] LABS: NT Pro B Type Natriuretic Pept 2430 pg/mL (0-125)
[2020-06-22] MEDS: metoprolol succinate ER (24 HR) 50 mg Tablet PO ×2 (08:28→14:37)
[2020-06-22] MEDS: atorvastatin 40 mg Tablet 80 MG PO (08:28)
[2020-06-22] MEDS: levothyroxine 50 mcg Tablet PO (08:28)
[2020-06-22] MEDS: escitalopram 10 mg Tablet 40 MG PO (08:28)
[2020-06-22] MEDS: heparin 5,000 unit/mL INJ 1 mL 5000 UNIT SUBCUT ×2 (08:29→21:07)
--- NOTE | 2020-06-22 09:19 | P.PN_ITS ---
Subjective Subjective: Interval history: + nonproductive cough slightly better. At midnight, did not feel well, BP 192/77, P 128 Reports she was taking 200 mg metoprolol + 2.5 mg amlodipine a couple of weeks ago. metoprolol was reduced to 100 mg and amlodipine stopped prior to admission due to hypotension at dialysis Medications: Reviewed: Yes Vitals/I&O/Wt Last Vital Signs Temp 98.4 F 06/22/20 07:14 Pulse 108 H 06/22/20 07:46 Resp 18 06/22/20 07:30 BP 147/73 06/22/20 07:14 Pulse Ox 97 06/22/20 07:30 06/21/20 06/22/20 06/22/20 21:59 06:59 14:59 Intake Total Output Total 175 / 175 Balance -175 / -175 Weight last 48 hrs Weight 91.081 kg Weight 88.813 kg Physical Exam Const: COMMON NORMALS: no acute distress GENERAL APPEARANCE: cooperative NUTRITIONAL APPEARANCE: obese Eye: COMMON NORMALS: no scleral icterus Chest: OTHER: tunneled right IJ HD catheter Resp: EFFORT & INSPECTION: Yes Actively coughing Cardio: COMMON NORMALS: regular rhythm RHYTHM: regular rhythm Extremity: GENERAL: No edema OTHER: left forearm AVG Data : 06/22/20 06:22 06/22/20 06:22 Other Labs: Hb 8.4, Na 130, Ca 8.4, Phos 3.6, Mg 1.8, Alb 2.8 Micro: Microbiology 06/21/20 04:48 Blood Culture - Preliminary Blood NEGATIVE TO DATE 06/21/20 04:42 Blood Culture - Preliminary Blood NEGATIVE TO DATE A&P Additional A&P Information 1. ESRD, HD MWF 2. Sinus tachycardia, likely related to recent reduction in metoprolol dose, anemia, COVID 3. Hypertension 4. IDDM 5. Anemia, check iron studies, epogen at dialysis Plan: Increase metoprolol to 100 mg daily, reduce amlodipine. HD Tuesday06/23/20 via PC. 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
[2020-06-22 10:49] LABS: Glucose Point of Care 110 mg/dL (70-110)
[2020-06-22 16:49] LABS: Glucose Point of Care 180 mg/dL (70-110)
[2020-06-22] MEDS: amlodipine 10 mg Tablet 5 MG PO (21:07)
[2020-06-22] MEDS: ropinirole 0.25 mg Tablet 0.5 MG PO (21:08)
[2020-06-22] MEDS: cyclobenzaprine 10 mg Tablet PO (21:08)
[2020-06-22 21:10] LABS: Glucose Point of Care 242 mg/dL (70-110)
[2020-06-23] VITALS (7 sets, daily range): BP systolic 143–161; BP diastolic 69–78; PULSE 94–104; RESP 16–18; TEMP 36.6–37; O2SAT 94–98
[2020-06-23 05:29] LABS: Basophils % 0.3 %; Hematocrit 26.7 % (37.0-47.0); Hemoglobin 8.3 g/dL (11.5-15.3); Lymphocytes # 1.4 10^3/uL (0.8-4.8); Lymphocytes % 18.4 %; Mean Corpuscular HGB Conc 31.1 g/dL (30.0-36.0); Mean Corpuscular Volume 93.4 fL (81-99); Mean Platelet Volume 10.7 fL (7.4-10.4); Monocytes # 0.6 10^3/uL (0.2-0.9); Monocytes % 7.8 %; Neutrophils # 5.34 10^3/uL (1.8-7.7); Nucleated Red Blood Cells % 0 %; Platelet Count 251 10^3/cmm (130-400); Red Blood Count 2.86 10^6/uL (4.1-5.3); Red Cell Distribution Width 15.2 % (12.1-15.1); White Blood Count 7.3 10^3/uL (4.0-10.0)
--- NOTE | 2020-06-23 06:00 | ECG_ITS ---
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 Measurements Intervals [place] Rate: 93 P: 46 CO: 171 QRS: -29 QRSD: 97 T: 59 QT: 427 QTc: 532 Interpretive Statements SINUS RHYTHM LOW QRS VOLTAGE IN PRECORDIAL LEADS [QRS DEFLECTION < 1.0 mV IN CHEST LEADS] LEFT VENTRICULAR HYPERTROPHY AND ST-T CHANGE [VOLTAGE CRITERIA PLUS ST/T ABNORMALITY] POSSIBLE ANTERIOR MYOCARDIAL INFARCTION [30 ms Q WAVE IN V3/V4, OR R < 0.2 mV IN V4], PROBABLY OLD Compared to ECG 06/22/2020 07:35:05 Low QRS voltage now present Sinus tachycardia no longer present Left-axis deviation no longer present ST (T wave) deviation still present Myocardial infarct finding still present Electronically Signed On 06-24-2020 0:07:02 CDT by Merced Woods M.D. [id number]
--- NOTE | 2020-06-23 06:00 | USCV_ITS ---
Elvi Kaiser Age: 54 Gender: F : 1965 Exam Date: 06/23/2020 06:08 Ordering Phys: Tay Townsend MD Technologist: Camilla Paez Exam Location: [facility] [place] Indication: TACHY POST COVID BP: 161 / 78 HR: 90 Rhythm: Sinus Technical Quality: Technically difficult study MEASUREMENTS (Male / Female) Normal Values 2D ECHO LV Diastolic Diameter PLAX 3.6 cm 4.2 - 5.9 / 3.9 - 5.3 cm LV Systolic Diameter PLAX 2.3 cm LV Chamber Size 3.8 cm IVS Diastolic Thickness 0.9 cm 0.6 - 1.0 / 0.6 - 0.9 cm IVS Systolic Thickness 1.3 cm LVPW Diastolic Thickness 1.1 cm 0.6 - 1.0 / 0.6 - 0.9 cm LVPW Systolic Thickness 1.7 cm RV Chamber Size 2.8 cm LVOT Diameter 2.0 cm LV Ejection Fraction 2D Teich 67.4 % LV Ejection Fraction MOD 2C 20.0 % LV Ejection Fraction 2C AL 19.6 % LA Diameter 3.2 cm LA Width 2.9 cm LA Height 4.6 cm RA Width 3.2 cm RA Height 3.8 cm Aorta at Sinotubular Diameter 2.9 cm M-MODE LV Diastolic Diameter MM 4.3 cm 4.2 - 5.9 / 3.9 - 5.3 cm LV Systolic Diameter MM 2.8 cm LV Ejection Fraction MM Teich 66.3 % IVS Diastolic Thickness MM 1.2 cm 0.6 - 1.0 / 0.6 - 0.9 cm IVS Systolic Thickness MM 1.5 cm LVPW Diastolic Thickness MM 1.2 cm 0.6 - 1.0 / 0.6 - 0.9 cm LVPW Systolic Thickness MM 1.9 cm Aortic Annulus Diameter 3.6 cm LA Ao Ratio MM 1.0 MV E Point Septal Separation 0.3 cm DOPPLER AV Peak Velocity 138.0 cm/s LVOT Peak Velocity 69.0 cm/s AV Area Cont Eq vti 2.0 cm squared AV Area Cont Eq pk 1.6 cm squared MV Area PHT 5.8 cm squared Mitral E to A Ratio 1.1 MV E' Velocity 59.5 cm/s Mitral E to MV E' Ratio 13.7 Mitral E to LV E' Lateral Ratio 13.3 Mitral E to LV E' Septal Ratio 14.2 TR Peak Velocity 90.4 cm/s TR Peak Gradient 3.3 mmHg TR Mean Velocity 110.6 cm/s TR Mean Gradient 5.5 mmHg TR Velocity Time Integral 35.7 cm TV Peak E Velocity 92.0 cm/s Right Atrial Pressure 3.0 mmHg Pulmonary Artery Systolic Pressu 6.3 mmHg PV Peak Velocity 96.0 cm/s RV Acceleration Time 0.1 s RV Ejection Time 0.3 s RV AcT/ET 0.3 FINDINGS Left Ventricle Normal left ventricular cavity size, wall thickness and systolic function. Left ventricular ejection fraction is estimated at 65 %. Although no diagnostic regional wall motion abnormality could be identified, this possibility cannot be completely excluded based on the study. Normal diastolic function. Right Ventricle Normal right ventricular size and systolic function. Right ventricular systolic pressure 15 mmHg. Right Atrium Normal right atrial size. Left Atrium Normal left atrial size. Mitral Valve Mildly thickened mitral valve. No mitral valve stenosis. Trace mitral valve regurgitation. Aortic Valve Structurally normal trileaflet aortic valve. No aortic valve stenosis. No aortic valve regurgitation. Tricuspid Valve Structurally normal tricuspid valve. Trace to mild tricuspid valve regurgitation. Pulmonic Valve Pulmonic valve not well visualized. No pulmonary valve stenosis. No significant pulmonary valve regurgitation. Pericardium No pericardial effusion. Aorta Normal-sized aortic root. Normal-sized inferior vena cava. CONCLUSIONS 1. This is a technically difficult study. 2. Normal left ventricular cavity size, wall thickness and systolic function. Left ventricular ejection fraction is estimated at 65 %. Although no diagnostic regional wall motion abnormality could be identified, this possibility cannot be completely excluded based on the study. Normal diastolic function. 3. Normal right ventricular size and systolic function. 4. Trace to mild tricuspid valve regurgitation. 5. No prior similar studies to compare. Heidi Singh MD (Electronically Signed) Final Date: 23 June 2020 12:54 S
[2020-06-23 07:09] LABS: Glucose Point of Care 165 mg/dL (70-110)
[2020-06-23 07:12] LABS: Alanine Aminotransferase 9 U/L (0-33); Albumin Level 2.8 g/dL (3.5-5.2); Alkaline Phosphatase 82 IU/L (35-105); Anion Gap 17.5 (5-19); Aspartate Amino Transferase 13 U/L (0-32); Blood Urea Nitrogen 31 mg/dL (6-20); Calcium 8.8 mg/dL (8.5-10.5); Carbon Dioxide 24 mmol/L (22-29); Chloride 91 mmol/L (98-107); Globulin 3.1 g/dL (1.3-4.6); Glomerular Filtration Rate 9.4 mL/min (90-130); Glucose 128 mg/dL (65-115); Magnesium 1.9 mg/dL (1.7-2.3); NT Pro B Type Natriuretic Pept 1793 pg/mL (0-125); Osmolality Calculated 276 mOsm/kg (285-295); Phosphorus 3.9 mg/dL (2.5-4.5); Potassium 3.5 mmol/L (3.5-5.1); Sodium 129 mmol/L (136-145); Total Bilirubin 0.2 mg/dL (0.15-1.2); Total Protein 5.9 g/dL (6.6-8.7)
[2020-06-23 07:32] LABS: Iron 49 ug/dL (37-145); Percent Saturation 30.2 % (20-50); Total Iron Binding Capacity 162 mcg/dl; Unsaturated Iron Binding 113 ug/dL (112-347)
[2020-06-23 07:51] LABS: Ferritin 1554 ng/mL (15-150)
[2020-06-23 08:44] LABS: Arterial Blood Gas Hematocrit 30.1 % (37-47); Base Excess ABG 5.5 mmol/L (-2.0-2.0); Blood Gas Operator Identificat HARKR; Blood Gas Sample Site Brachial, right; Blood Gas Sample Type Arterial; HCO3 ABG 28.9 mmol/L (22-26); Oxygen Device ROOM AIR; PO2 ABG 78.8 mmHg (80.0-100.0)
[2020-06-23 10:56] LABS: Glucose Point of Care 131 mg/dL (70-110)
[2020-06-23] MEDS: atorvastatin 40 mg Tablet 80 MG PO (11:27)
[2020-06-23] MEDS: escitalopram 10 mg Tablet 40 MG PO (11:27)
[2020-06-23] MEDS: heparin 5,000 unit/mL INJ 1 mL 5000 UNIT SUBCUT (11:27)
[2020-06-23] MEDS: levothyroxine 50 mcg Tablet PO (11:28)
[2020-06-23] MEDS: metoprolol succinate ER (24 HR) 50 mg Tablet PO (11:36)
[2020-06-23] MEDS: albuterol 8 gm MDI 2 PUFF INHALATION (12:12)
--- NOTE | 2020-06-23 13:29 | PM.DCS ---
Discharge Providers Date of Admission: 06/21/20 22:02 Date of Discharge: June 23, 2020 Attending Provider at Admission: Tay Townsend MD Attending Provider at Discharge: Buddy Mcclellan MD Primary Care Provider: Vivienne Schulz MD Diagnoses at Discharge Discharge Diagnosis (1) Sinus tachycardia: Status: Resolved (2) Insulin dependent type 2 diabetes mellitus: Status: Acute (3) Hyperlipidemia: Status: Acute (4) Hypothyroidism: Status: Acute (5) Chronic back pain: Status: Acute (6) Hypertension: Status: Acute (7) ESRD (end stage renal disease): Status: Acute (8) COVID-19: Status: Acute Reason for Visit Reason for Visit: elevated HR Hospital Course Hospital Course 4 year old female with a past medical history of end-stage renal disease on dialysis Tuesday she does urinate, hypertension, hyperlipidemia, insulin-dependent type 2 diabetes mellitus, hypothyroidism, recent history of COVID-19 diagnosis status post bam infusion on 06/15/2020 who presents to [facility] from dialysis due to complaints of worsening cough, increased shortness of breath, and palpitations which was diagnosed as sinus tachycardia with heart rates in the 160s.She was admitted for the management of sinus tachycardia. CTA chest without contrast : No P.E: Mild patchy airspace opacities scattered throughout both lungs. These may represent atelectasis or pneumonia.Her cough and sob has resolved with teslon pearls as well as advair and ventolin inhaler.There was no concern for pneumonia,hence she was not started on abxs she was also saturating well on room air and hence there was no need for supplemental oxygen.Her Sinus tachycardia was likely 2/2 to cutting on the dose of metoprolol. she was taking 200 mg metoprolol + 2.5 mg amlodipine a couple of weeks ago. metoprolol was reduced to 100 mg and amlodipine stopped prior to admission due to hypotension at dialysis.During the hospital stay she has done well on 100 mg oral daily metoprolol and is being discharged on the same and on amlodipine 5 mg po daily. She continued with her rotuine H/D ( MWF ) last dialysis received on tuesday. 2D echo done during the hospital stay : Normal left ventricular cavity size, wall thickness and systolic function. Left ventricular ejection fraction is estimated at 65 %. Although no diagnostic regional wall motion abnormality could be identified, this possibility cannot be completely excluded based on the study. Normal diastolic function. Normal right ventricular size and systolic function. Trace to mild tricuspid valve regurgitation. She responded well to the above medical management and is being discharged in stable condition.She will continue to follow her pin maker as outpatient. Physical Exam Const: COMMON NORMALS: patient oriented x3 HENMT: COMMON NORMALS: normocephalic and atraumatic HEAD & SCALP: normocephalic and atraumatic Chest: OTHER: tunneled right IJ HD catheter Resp: COMMON NORMALS: normal respiratory effort, No retractions, No use of accessory muscles and clear to auscultation bilaterally EFFORT & INSPECTION: Yes symmetric chest movement AUSCULTATION: clear to auscultation bilaterally Cardio: COMMON NORMALS: regular rate, regular rhythm, S1 normal heart sound present, S2 normal heart sound present, No gallops present (Cardio), No murmurs present (Cardio), No rub (Cardio) and Peripheral pulses 2+ throughout RATE: regular rate RHYTHM: regular rhythm HEART SOUNDS: S1 normal heart sound present and S2 normal heart sound present PERIPHERAL PULSES: Peripheral pulses 2+ throughout GI: COMMON NORMALS: Normal to inspection, nondistended, normoactive bowel sounds present, Soft to palpation, non-tender, No hepatosplenomegaly present and no masses AUSCULTATION: Yes normoactive bowel sounds PALPATION: Yes Soft to palpation and Yes No hepatosplenomegaly present RECTAL EXAM: deferred Extremity: COMMON NORMALS: no clubbing, cyanosis or edema and no pedal edema NARRATIVE EXTREMITY EXAM: left forearm AVG Neuro: COMMON NORMALS: patient oriented x3 Discharge Data Data Completed and Pending: Completed Studies During Hospitalization Category Date Time Status CT angio chest PE protcl [id number] Urge nt Cat Scan 06/20/20 23:14 Completed XR chest 1V nito ble [id number] Stat Exams 06/20/20 21:32 Completed CV echo complete* [id number] Routine Ultrasound 06/23/20 06:00 Completed Pending at discharge Category Date Time Status Blood Culture Rou kathia Lab 06/21/20 04:48 Results Platelet Count Q2 D Lab 06/24/20 04:00 Ordered Platelet Count Q2 D Lab 06/24/20 04:00 Ordered Labs from last 24 hours 06/23/20 06/23/20 06/23/20 10:52 07:04 04:27 WBC 7.3 RBC 2.86 L Hgb 8.3 L Hct 26.7 L MCV 93.4 MCH 29.0 MCHC 31.1 RDW 15.2 H Plt Count 251 MPV 10.7 H Neut % (Auto) 73.0 Lymph % (Auto) 18.4 [place] % (Auto) 7.8 Eos % (Auto) 0.0 Baso % (Auto) 0.3 Neut # (Auto) 5.34 Lymph # (Auto) 1.4 [place] # (Auto) 0.6 Eos # (Auto) 0.0 Baso # (Auto) 0.0 Nucleated RBC % (a uto) 0 Nucleated RBCs # 0.0 Specimen Type Sample Site ABG pH ABG pCO2 ABG pO2 ABG HCO3 ABG Base Excess Marquis Test Hematocrit O2 Delivery Device [employer] Librarian ID Sodium Potassium Chloride Carbon Dioxide Anion Gap BUN Creatinine GFR Calculation Glucose POC Glucose 131 H 165 H Calculated Osmolal ity Lactate Calcium Phosphorus Magnesium Iron TIBC % Saturation Unsat Iron Binding Ferritin Total Bilirubin AST ALT Alkaline Phosphata se NT-Pro-B Natriuret Pep Total Protein Albumin Globulin 06/23/20 06/23/20 06/22/20 04:27 04:27 21:05 WBC RBC Hgb Hct MCV MCH MCHC RDW Plt Count MPV Neut % (Auto) Lymph % (Auto) [place] % (Auto) Eos % (Auto) Baso % (Auto) Neut # (Auto) Lymph # (Auto) [place] # (Auto) Eos # (Auto) Baso # (Auto) Nucleated RBC % (a uto) Nucleated RBCs # Specimen Type Sample Site ABG pH ABG pCO2 ABG pO2 ABG HCO3 ABG Base Excess [place] Test Hematocrit O2 Delivery Device [employer] Librarian ID Sodium 129 L Potassium 3.5 Chloride 91 L Carbon Dioxide 24 Anion Gap 17.5 BUN 31 H Creatinine 4.8 H GFR Calculation 9.4 L Glucose 128 H POC Glucose 242 H Calculated Osmolal ity 276 L Lactate 1.0 Calcium 8.8 Phosphorus 3.9 Magnesium 1.9 Iron 49 TIBC 162 % Saturation 30.2 Unsat Iron Binding 113 Ferritin 1554 H Total Bilirubin 0.2 AST 13 ALT 9 Alkaline Phosphata se 82 NT-Pro-B Natriuret Pep 1793 H Total Protein 5.9 L Albumin 2.8 L Globulin 3.1 06/22/20 06/21/20 16:37 02:39 WBC RBC Hgb Hct MCV MCH MCHC RDW Plt Count MPV Neut % (Auto) Lymph % (Auto) [place] % (Auto) Eos % (Auto) Baso % (Auto) Neut # (Auto) Lymph # (Auto) [place] # (Auto) Eos # (Auto) Baso # (Auto) Nucleated RBC % (a uto) Nucleated RBCs # Specimen Type Arterial Sample Site Brachial, right ABG pH 7.50 H ABG pCO2 37.0 ABG pO2 78.8 L ABG HCO3 28.9 H ABG Base Excess 5.5 H [place] Test N/a Hematocrit 30.1 L O2 Delivery Device Room air [employer] Librarian ID Harkr Sodium Potassium Chloride Carbon Dioxide Anion Gap BUN Creatinine GFR Calculation Glucose POC Glucose 180 H Calculated Osmolal ity Lactate Calcium Phosphorus Magnesium Iron TIBC % Saturation Unsat Iron Binding Ferritin Total Bilirubin AST ALT Alkaline Phosphata se NT-Pro-B Natriuret Pep Total Protein Albumin Globulin Vitals: Last Vital Signs Temp 98.6 F 06/23/20 11:41 Pulse 99 06/23/20 12:17 Resp 18 06/23/20 12:16 BP 143/70 06/23/20 11:41 Pulse Ox 96 06/23/20 12:16 Discharge Plan Discharge Patient Disposition: Home Condition: Stable Prescriptions: New amlodipine 5 mg tablet 5 mg PO DAILY Qty: 30 RF: 0 Continued escitalopram oxalate [Lexapro] 20 mg tablet 40 mg PO DAILY@0800 RF: 0 atorvastatin 80 mg tablet 80 mg PO DAILY RF: 0 Tresiba U-100 Insulin 100 unit/mL solution 60 unit SUBCUT DAILY@0800 RF: 0 Victoza 2-Jeffrey 0.6 mg/0.1 mL (18 mg/3 mL) pen injector 1.8 mg SUBCUT Q24H RF: 0 cyclobenzaprine 10 mg tablet 10 mg PO TID PRN (Reason: Pain) RF: 0 Novolog Flexpen U-100 Insulin 100 unit/mL (3 mL) insulin pen 15 unit SUBCUT TID@0800,1200,1999 RF: 0 levothyroxine 50 mcg capsule 50 mcg PO DAILY RF: 0 RenaPlex-D 800 mcg-12.5 mg -2,000 unit tablet 1 tab PO DAILY@1999 RF: 0 cetirizine [Zyrtec] 10 mg Tablet 10 mg PO DAILY@0800 RF: 0 diphenhydramine HCl [Benadryl] 25 mg Capsule 25 mg PO BEDTIME@1999 RF: 0 pramipexole [Mirapex] 0.125 mg Tablet 0.125 mg PO DAILY@0800 RF: 0 carbidopa-levodopa 25-100 mg tablet See Rx Instructions .ROUTE .COMPLEX RF: 0 Auryxia 210 mg iron tablet 630 mg PO TID@08,12,20 RF: 0 melatonin 5 mg Tablet,Chewable 5 mg PO BEDTIME@1999 RF: 0 metoprolol succinate 100 mg tablet extended release 24 hr 100 mg PO DAILY RF: 0 clopidogrel 75 mg tablet 75 mg PO DAILY@08 RF: 0 ropinirole 0.5 mg tablet 0.5 mg PO DAILY@1999 RF: 0 Discharge Orders: Discharge Order (Routine); Ordered 06/23/20 Ordered By: Buddy Mcclellan Discharge Diet: Diabetic Discharge Activity: Resume usual activity Discharge Attestations Time Spent in Discharge Care*: less than 30 min Specific Discharge Activities: educating patient, educating and/or supporting family/caregiver, discussing with pcp/other providers, discussing with casework supervisor/social workers/dc planners, documenting/other paperwork and evaluating patient/reviewing data Status at Discharge: Cognitive status at discharge: cognitively intact, Behavioral status at discharge: cooperative, Functional status at discharge: independent ambulation Overall status at discharge: patient is back to baseline Quality Metrics Clinical Quality Measures During this hospital stay, did patient experience: None Coding Level of Care Code Acute [facility] DC note Diagnoses Sinus tachycardia R00.0 Insulin dependent type 2 diabetes mellitus E11.9; Z79.4 Hyperlipidemia E78.5 Hypothyroidism E03.9 Chronic back pain M54.9; G89.29 Hypertension I10 ESRD (end stage renal disease) N18.6 COVID-19 U07.1
--- NOTE | 2020-06-23 14:57 | PC.NURSE ---
pt 2 ivs taken out and intact. pt discharge instructions explained and all questions answered. pt taken to parking lot 2 via wheelchair.
== END 2020-06-23 14:59 | disposition home or self-care (01) | DRG 308 ==
LOC: ER 21:18 → CSU 23:31 → MEDSURG 06-21 15:10
PROVIDERS: Hospitalist; Internal Medicine; Admitting Provider Family Medicine; Emergency Provider Emergency Medicine; PCP Internal Medicine; Visit Provider Internal Medicine
DX: R00.0 Tachycardia, unspecified (principal); N18.6 End stage renal disease; J18.9 Pneumonia, unspecified organism; I12.0 Hypertensive chronic kidney disease with stage 5 chronic kidney disease or end stage renal disease; J98.11 Atelectasis; I95.2 Hypotension due to drugs; T44.7X5A Adverse effect of beta-adrenoreceptor antagonists, initial encounter; E11.22 Type 2 diabetes mellitus with diabetic chronic kidney disease; Z99.2 Dependence on renal dialysis; E78.5 Hyperlipidemia, unspecified; E03.9 Hypothyroidism, unspecified; Z86.16 Personal history of COVID-19; F41.9 Anxiety disorder, unspecified; G89.29 Other chronic pain; M54.9 Dorsalgia, unspecified; Z98.1 Arthrodesis status; D63.1 Anemia in chronic kidney disease; Z79.4 Long term (current) use of insulin; I07.1 Rheumatic tricuspid insufficiency; Z79.02 Long term (current) use of antithrombotics/antiplatelets
CPT/HCPCS: 36415; 36416; 36600; 71045; 71275; 80053; 81001; 82550; 82728; 82803; 82962; 83540; 83550; 83605; 83735; 83880; 84100; 84145; 84443; 84484; 85025; 85610; 85730; 87040; 87086; 87340; 90935; 93005; 93306; 94640; 94664; 96365; 96372; 96375; 96376; 99285; G0378; J1200; J1644; J1720; J1815; J3490; J3535; Q3014; Q9967

== ENCOUNTER 2020-07-22 13:29 | Outpatient (RCR) | payer MEDICARE, MEDICAID, SELFPAY | END 2020-08-08 23:59 | disposition home or self-care (01) | LOC: SPT 13:29 | PROVIDERS: PCP Internal Medicine; Referring Provider Internal Medicine; Visit Provider Internal Medicine | DX: M54.9 Dorsalgia, unspecified (principal); G89.29 Other chronic pain | CPT/HCPCS: 97110; 97161 ==

== ENCOUNTER 2020-08-09 06:00 | Outpatient (RCR) | payer MEDICARE, MEDICAID, SELFPAY | END 2020-09-08 23:59 | disposition home or self-care (01) | LOC: SPT 06:00 | PROVIDERS: PCP Internal Medicine; Referring Provider Internal Medicine; Visit Provider Internal Medicine | DX: M54.9 Dorsalgia, unspecified (principal); G89.29 Other chronic pain | CPT/HCPCS: 97110 ==

== ENCOUNTER 2020-09-09 06:00 | Outpatient (RCR) | payer MEDICARE, MEDICAID, SELFPAY | END 2020-10-08 23:59 | disposition home or self-care (01) | LOC: SPT 06:00 | PROVIDERS: PCP Internal Medicine; Referring Provider Internal Medicine; Visit Provider Internal Medicine | DX: M54.9 Dorsalgia, unspecified (principal); G89.29 Other chronic pain | CPT/HCPCS: 97110 ==

== ENCOUNTER 2021-01-08 14:31 | Outpatient (CLI) | payer MEDICARE, MEDICAID, SELFPAY ==
--- NOTE | 2021-01-08 14:56 | XR_ITS ---
WS: [id number] Exam: XR foot LT min 3V* [id number] Date/Time of Exam: 01/08/2021 2:56 PM Reason For Exam: FOOT PAIN, LEFT No acute fracture or dislocation. Osteopenia. Extensive soft tissue calcification about the ankle. Va scular calcifications about the ankle and foot. Degenerative changes in the IP and midfoot joints. No soft tissue foreign bodies are seen. XR/XR foot LT min 3V* [id number] IMPRESSION: 1. No fracture or dislocation. 2. Degenerative changes and osteopenia.
== END 2021-01-08 14:32 | disposition home or self-care (01) ==
LOC: RAD 14:51
PROVIDERS: PCP Internal Medicine; Visit Provider Nurse Practitioner Family
DX: M79.672 Pain in left foot (principal); M85.872 Other specified disorders of bone density and structure, left ankle and foot
CPT/HCPCS: 73630

== ENCOUNTER 2021-01-27 17:08 | Emergency (ER) | payer MEDICARE, MEDICAID, SELFPAY ==
[2021-01-27 17:28] VITALS: BP 204/89; PULSE 86; RESP 18; TEMP 36.7; O2SAT 100; BMI 35.7
--- NOTE | 2021-01-27 18:02 | XRR_ITS ---
PROCEDURE INFORMATION: Exam: XR Left Tibia and Fibula Exam date and time: 01/27/2021 6:02 PM Age: 55 years old Clinical indication: Injury or trauma; Fall; Blunt trauma; Injury date: 01/27/2021; Injury details: Left sided impact; Patient HX: Left lower leg pain TECHNIQUE: Imaging protocol: XR Left tibia and fibula. Views: 2 views. COMPARISON: No relevant prior studies available. FINDINGS: Bones/joints: There is no knee joint effusion. No acute fracture or dislocation. Soft tissues: There are soft tissue calcifications which are nonspecific but may be related to venous stasis or mix connective tissue disease. XR/XR tibia fibula LT 2V [id number] IMPRESSION: No acute bony abnormality. Radiation Dose CTDIVOL = (mGy): DLP = (mGy-cm)
--- NOTE | 2021-01-27 18:02 | XRR_ITS ---
PROCEDURE INFORMATION: Exam: XR Left Hand Exam date and time: 01/27/2021 6:02 PM Age: 55 years old Clinical indication: Injury or trauma; Blunt trauma (contusions or hematomas); Injury date: 01/27/2021; Injury details: Fall - left sided impact; Prior surgery; Patient HX: Left hand pain TECHNIQUE: Imaging protocol: XR Left hand. Views: 3 or more views. COMPARISON: No relevant prior studies available. FINDINGS: Bones/joints: There are mild osteoarthritic changes of the interphalangeal joints. No acute fracture or dislocation is identified in the hand. Subtle disruption of the trabecular pattern in the distal radius concerning for microtrabecular fracture is better visualized on the wrist exam of the same day. Soft tissues: There is soft tissue edema adjacent to the distal radius. XR/XR hand LT min 3V* [id number] IMPRESSION: Subtle disruption of the trabecular pattern in the distal radius concerning for microtrabecular fracture is better visualized on the wrist exam of the same day. There is adjacent soft tissue edema. Radiation Dose CTDIVOL = (mGy): DLP = (mGy-cm)
--- NOTE | 2021-01-27 18:02 | XRR_ITS ---
PROCEDURE INFORMATION: Exam: XR Left Ankle Exam date and time: 01/27/2021 6:02 PM Age: 55 years old Clinical indication: Injury or trauma; Blunt trauma; Injury date: 01/27/2021; Injury details: Fall - left sided impact; Prior surgery; Patient HX: Left ankle pain TECHNIQUE: Imaging protocol: XR Left ankle. Views: 1 or 2 views. COMPARISON: No relevant prior studies available. FINDINGS: Bones/joints: There is osteopenia. There is a small age-indeterminate avulsion fracture of the dorsum of the talus. No additional acute fracture. No dislocation. There is calcaneal enthesopathy. There is bony remodeling of the tip of the medial malleolus and fibula compatible with old ankle injury. Soft tissues: Mild soft tissue calcifications are identified and are nonspecific. Vasculature: There are vascular calcifications. XR/XR ankle LT 2V [id number] IMPRESSION: There is a small age-indeterminate avulsion fracture of the dorsum of the talus. Radiation Dose CTDIVOL = (mGy): DLP = (mGy-cm)
--- NOTE | 2021-01-27 18:02 | XRR_ITS ---
PROCEDURE INFORMATION: Exam: XR Left Wrist Exam date and time: 01/27/2021 6:02 PM Age: 55 years old Clinical indication: Injury or trauma; Blunt trauma (contusions or hematomas); Injury date: 01/27/2021; Injury details: Fall - left sided impact; Prior surgery; Patient HX: Left wrist pain TECHNIQUE: Imaging protocol: XR Left wrist. Views: 1 or 2 views. COMPARISON: No relevant prior studies available. FINDINGS: Bones/joints: There is osteopenia. Postoperative clips are noted in the volar aspect of the distal forearm. There is subtle disruption of the trabecular pattern in the distal radial metaphysis compatible with probable microtrabecular fracture. No acute fracture of the ulna. No acute carpal bone fractures identified. Soft tissues: There is soft tissue edema greatest adjacent to the area of abnormality in the distal radius. Vasculature: There are vascular calcifications. XR/XR wrist LT 2V [id number] IMPRESSION: There is subtle disruption of the trabecular pattern in the distal radial metaphysis compatible with probable microtrabecular fracture. Radiation Dose CTDIVOL = (mGy): DLP = (mGy-cm)
--- NOTE | 2021-01-27 18:02 | XRR_ITS ---
PROCEDURE INFORMATION: Exam: XR Left Forearm Exam date and time: 01/27/2021 6:02 PM Age: 55 years old Clinical indication: Injury or trauma; Blunt trauma (contusions or hematomas); Arm, lower; Injury date: 01/27/2021; Injury details: Fall - left sided impact; Prior surgery; Patient HX: Left forearm pain TECHNIQUE: Imaging protocol: XR Left forearm. Views: 2 views. COMPARISON: No relevant prior studies available. FINDINGS: Bones/joints: There is osteopenia. No elbow joint effusion. No acute bony abnormality is identified. Subtle microtrabecular fracture of the distal radius suspect a wrist exam of the same day is not well visualized on this exam. Soft tissues: There are multiple soft tissue clips in the forearm and distal upper arm. There is soft tissue edema adjacent to the distal radius. Vasculature: There are vascular calcifications. XR/XR forearm LT 2V [id number] IMPRESSION: Subtle microtrabecular fracture of the distal radius suspect a wrist exam of the same day is not well visualized on this exam. Otherwise, no acute bony abnormality. Radiation Dose CTDIVOL = (mGy): DLP = (mGy-cm)
--- NOTE | 2021-01-27 18:13 | W.ED.GENADLT ---
HPI - General Adult General: Chief complaint: Fall Stated complaint: L EXTREMITIES PAIN FROM FALL Time Seen by Provider: 01/27/21 17:52 History of Present Illness: HPI narrative: [58]yo patient with history of dialysi, CKD, osteoporesis presenting to the emergency room after an episode of mechanical fall. This happened around an hour ago. Patient tells me that she was walking and tripped and fell earlier today. Patient denies any LOC. No associated chest pain, shortness breath, palpitation, lightheadedness, focal weakness, or other complaints at this time. Only, patient is complaining of left forearm and left leg pain. Patient reports reports pain is 2 out of 10. Declines any pain medicine given ongoing allergies. Onset:1 hr ago Duration: once Location:home Severity:mild Review of Systems Narrative: Constitutional: No fever, no chills. HEENT: No vision changes CV: No chest pain, no palpitations PULM: no cough, no dyspnea. GI: No abdominal pain, no N/V/D. : No dysuria MSKEL: +L forearm and L leg pain SKIN: No new rashes, no lesions. NEURO: No headache, no focal weakness. HEME: No visible bruises PSYCH: Normal mood PFSH ED PFSH: Medical History Anxiety Chronic back pain COVID-19 De Quervain's tenosynovitis Diabetes ESRD (end stage renal disease) Hyperlipidemia Hypertension Hypothyroidism Insulin dependent type 2 diabetes mellitus Surgical History H/O section H/O dilation and curettage H/O neck surgery fusion History of appendectomy History of carpal tunnel repair History of temporal artery biopsy Hx of cholecystectomy S/P arteriovenous (AV) fistula creation S/P dialysis catheter insertion Removed 07/14/20 Status post colonoscopy Family History Father Bleeding disorder Other Diabetes Heart disease Hyperlipidemia Hypertension Kidney problem Migraines Stroke Denies family history of Anesthesia complication Social History Smoking and tobacco status: never smoked Second hand smoke exposure: No Alcohol intake: never Adopted: No Caregiver/support person: Yes Lives independently: Yes Household members: family Housing: House Marital status: Single Highest education level completed: High School Graduate service: No Current occupational status: disabled Current occupational exposures/hazards: No Pets and animals: Yes Pets & animals: dog(s) History of recent travel: No Sexually active: No Current gender identity: Female Sabina/Hoahaoism: [employer]eterian Special sabina needs: No Agree to transfusion: No Financial difficulty paying for basics: Decline to Answer Female Reproductive History: Date of last menstrual period: 07/03/20 Physical Exam Narrative: EXAM NARRATIVE: Head: Atraumatic Eyes: PERRL, conjunctiva without injection ENT: Mucous membrane moist NECK: Supple, ROM intact LUNGS: LCTAB, no crackles/rhonchi CV: RRR ABDOMEN: Soft, nontender in all quadrants EXTREMITY: Normal ROM SKIN: No rash or erythema NEURO: Awake and alert, no focal motor deficits PSYCH: Normal mood and affect Course Vital Signs: Vital signs: Vital Signs Temperature 98.0 F 01/27/21 17:28 Pulse Rate 86 01/27/21 17:28 Respiratory Rate 18 01/27/21 17:28 Blood Pressure 204/89 01/27/21 17:28 Pulse Oximetry 100 01/27/21 17:28 MDM - General Adult MDM Narrative: Medical decision making narrative: 55-year-old female presents emergency room after an episode of mechanical fall. On exam, patient has mild tenderness palpation over the left forearm and left tib-fib. Patient is ambulatory, has no other focal complaints at this time. Neurovascular exam intact. Imaging is negative for any acute findings. Imaging showed bone contusion of the distal radius and chronic talus avulsion fracture, and findings were discussed with patient. Given patient has no pain at the site of the bone contusion or talus, decision was made to not put patient in a cast or splint at this time. I have given patient follow-up with Dr. Berman for further evaluation of the symptoms. Disposition: Discharge. Patient counseled regarding diagnostic impression, treatment plan. Patient given ED strict return precautions to return for continuation, worsening, or development of new symptoms. Instructed to f/u w/ PCP regarding symptoms today. Patient verbalized understanding. Imaging Data^: Other Imaging: Radiologist's impression: [address] [id number] ReportSigned Patient: Elvi Kaiser #: [id number]: 1965Acct#:[id number]/Sex: 55 / FADM Date: 01/27/21Loc: ERRoom/Bed:Attending Dr: Ordering Provider/Ordering MD: Gisel Bryant MD Date of Service: 01/27/21 Procedure(s): XR wrist LT 2V 89109 Accession Number(s): [id number] Report Number: [id number] PROCEDURE INFORMATION: Exam: XR Left Wrist Exam date and time: 01/27/2021 6:02 PM Age: 55 years old Clinical indication: Injury or trauma; Blunt trauma (contusions or hematomas); Injury date: 01/27/2021; Injury details: Fall - left sided impact; Prior surgery; Patient HX: Left wrist pain TECHNIQUE: Imaging protocol: XR Left wrist. Views: 1 or 2 views. COMPARISON: No relevant prior studies available. FINDINGS: Bones/joints: There is osteopenia. Postoperative clips are noted in the volar aspect of the distal forearm. There is subtle disruption of the trabecular pattern in the distal radial metaphysis compatible with probable microtrabecular fracture. No acute fracture of the ulna. No acute carpal bone fractures identified. Soft tissues: There is soft tissue edema greatest adjacent to the area of abnormality in the distal radius. Vasculature: There are vascular calcifications. XR/XR wrist LT 2V 49807 IMPRESSION: There is subtle disruption of the trabecular pattern in the distal radial metaphysis compatible with probable microtrabecular fracture. Radiation Dose CTDIVOL = (mGy): DLP = (mGy-cm) Dictated By:Chi Blumigned By:Kenton Blum Date/Time:01/27/211907DD/ [address] [id number] ReportSigned Patient: Elvi Kaiser #: [id number]: 1965Acct#:[id number]/Sex: 55 / FADM Date: 01/27/21Loc: ERRoom/Bed:Attending Dr: Ordering Provider/Ordering MD: Gisel Bryant MD Date of Service: 01/27/21 Procedure(s): XR tibia fibula LT 2V 38640 Accession Number(s): [id number] Report Number: [id number] PROCEDURE INFORMATION: Exam: XR Left Tibia and Fibula Exam date and time: 01/27/2021 6:02 PM Age: 55 years old Clinical indication: Injury or trauma; Fall; Blunt trauma; Injury date: 01/27/2021; Injury details: Left sided impact; Patient HX: Left lower leg pain TECHNIQUE: Imaging protocol: XR Left tibia and fibula. Views: 2 views. COMPARISON: No relevant prior studies available. FINDINGS: Bones/joints: There is no knee joint effusion. No acute fracture or dislocation. Soft tissues: There are soft tissue calcifications which are nonspecific but may be related to venous stasis or mix connective tissue disease. XR/XR tibia fibula LT 2V 68332 IMPRESSION: No acute bony abnormality. Radiation Dose CTDIVOL = (mGy): DLP = (mGy-cm) Dictated By:Kenton Blum By:Kenton Blum Date/Time:01/27/211914DD/ [address] [id number] ReportSigned Patient: Elvi Kaiser #: [id number]: 1965Acct#:[id number]/Sex: 55 / FADM Date: 01/27/21Loc: ERRoom/Bed:Attending Dr: Ordering Provider/Ordering MD: Gisel Bryant MD Date of Service: 01/27/21 Procedure(s): XR hand LT min 3V* 78709 Accession Number(s): [id number] Report Number: [id number] PROCEDURE INFORMATION: Exam: XR Left Hand Exam date and time: 01/27/2021 6:02 PM Age: 55 years old Clinical indication: Injury or trauma; Blunt trauma (contusions or hematomas); Injury date: 01/27/2021; Injury details: Fall - left sided impact; Prior surgery; Patient HX: Left hand pain TECHNIQUE: Imaging protocol: XR Left hand. Views: 3 or more views. COMPARISON: No relevant prior studies available. FINDINGS: Bones/joints: There are mild osteoarthritic changes of the interphalangeal joints. No acute fracture or dislocation is identified in the hand. Subtle disruption of the trabecular pattern in the distal radius concerning for microtrabecular fracture is better visualized on the wrist exam of the same day. Soft tissues: There is soft tissue edema adjacent to the distal radius. XR/XR hand LT min 3V* 18853 IMPRESSION: Subtle disruption of the trabecular pattern in the distal radius concerning for microtrabecular fracture is better visualized on the wrist exam of the same day. There is adjacent soft tissue edema. Radiation Dose CTDIVOL = (mGy): DLP = (mGy-cm) Dictated By:Kenton Blum By:Kenton Blum Date/Time:01/27/211908DD/ [address] [id number] ReportSigned Patient: Elvi Kaiser #: [id number]: 1965Acct#:[id number]/Sex: 55 / FADM Date: 01/27/21Loc: ERRoom/Bed:Attending Dr: Ordering Provider/Ordering MD: Gisel Bryant MD Date of Service: 01/27/21 Procedure(s): XR forearm LT 2V 40357 Accession Number(s): [id number] Report Number: [id number] PROCEDURE INFORMATION: Exam: XR Left Forearm Exam date and time: 01/27/2021 6:02 PM Age: 55 years old Clinical indication: Injury or trauma; Blunt trauma (contusions or hematomas); Arm, lower; Injury date: 01/27/2021; Injury details: Fall - left sided impact; Prior surgery; Patient HX: Left forearm pain TECHNIQUE: Imaging protocol: XR Left forearm. Views: 2 views. COMPARISON: No relevant prior studies available. FINDINGS: Bones/joints: There is osteopenia. No elbow joint effusion. No acute bony abnormality is identified. Subtle microtrabecular fracture of the distal radius suspect a wrist exam of the same day is not well visualized on this exam. Soft tissues: There are multiple soft tissue clips in the forearm and distal upper arm. There is soft tissue edema adjacent to the distal radius. Vasculature: There are vascular calcifications. XR/XR forearm LT 2V 85232 IMPRESSION: Subtle microtrabecular fracture of the distal radius suspect a wrist exam of the same day is not well visualized on this exam. Otherwise, no acute bony abnormality. Radiation Dose CTDIVOL = (mGy): DLP = (mGy-cm) Dictated By:Chi Blumigned By:Kenton Blum Date/Time:01/27/211917DD/ 01 [facility] Center[facility] [place] [id number] ReportSigned Patient: Elvi Kaiser #: [id number]: 1965Acct#:[id number]/Sex: 55 / FADM Date: 01/27/21Loc: ERRoom/Bed:Attending Dr: Ordering Provider/Ordering MD: Gisel rByant MD Date of Service: 01/27/21 Procedure(s): XR ankle LT 2V 32540 Accession Number(s): [id number] Report Number: [id number] PROCEDURE INFORMATION: Exam: XR Left Ankle Exam date and time: 01/27/2021 6:02 PM Age: 55 years old Clinical indication: Injury or trauma; Blunt trauma; Injury date: 01/27/2021; Injury details: Fall - left sided impact; Prior surgery; Patient HX: Left ankle pain TECHNIQUE: Imaging protocol: XR Left ankle. Views: 1 or 2 views. COMPARISON: No relevant prior studies available. FINDINGS: Bones/joints: There is osteopenia. There is a small age-indeterminate avulsion fracture of the dorsum of the talus. No additional acute fracture. No dislocation. There is calcaneal enthesopathy. There is bony remodeling of the tip of the medial malleolus and fibula compatible with old ankle injury. Soft tissues: Mild soft tissue calcifications are identified and are nonspecific. Vasculature: There are vascular calcifications. XR/XR ankle LT 2V 54050 IMPRESSION: There is a small age-indeterminate avulsion fracture of the dorsum of the talus. Radiation Dose CTDIVOL = (mGy): DLP = (mGy-cm) Dictated By:Kenton Blum By:Kenton Blum Date/Time:01/27/21 1912DD/ [address] [id number] ReportSigned Patient: Elvi Kaiser #: [id number]: 1965Acct#:[id number]/Sex: 55 / FADM Date: 01/08/21Loc: RADRoom/Bed:Attending Dr: Chris Singh [facility] C[facility] MANAGER-C Ordering Provider/Ordering MD: Chris Singh NP Date of Service: 01/08/21 Procedure(s): XR foot LT min 3V* 79003 Accession Number(s): [id number] Report Number: [id number] WS: [id number] Exam: XR foot LT min 3V* 45819 Date/Time of Exam: 01/08/2021 2:56 PM Reason For Exam: FOOT PAIN, LEFT No acute fracture or dislocation. Osteopenia. Extensive soft tissue calcification about the ankle. Vascular calcifications about the ankle and foot. Degenerative changes in the IP and midfoot joints. No soft tissue foreign bodies are seen. XR/XR foot LT min 3V* 64714 IMPRESSION: 1. No fracture or dislocation. 2. Degenerative changes and osteopenia. Dictated By:Shelli Martinez By:Shelli Martinez Date/Time:01/08/21 1513DD/ 1511 Discharge Plan Discharge Patient Disposition: Home Clinical Impression: Accident due to mechanical fall without injury, Contusion of bone Condition: Stable Prescriptions: No Action escitalopram oxalate [Lexapro] 20 mg tablet 40 mg PO DAILY@0800 RF: 0 atorvastatin 80 mg tablet 80 mg PO DAILY RF: 0 Tresiba U-100 Insulin 100 unit/mL solution 60 unit SUBCUT DAILY@0800 RF: 0 Victoza 2-Jeffrey 0.6 mg/0.1 mL (18 mg/3 mL) pen injector 1.8 mg SUBCUT Q24H RF: 0 cyclobenzaprine 10 mg tablet 10 mg PO TID PRN (Reason: Pain) RF: 0 Novolog Flexpen U-100 Insulin 100 unit/mL (3 mL) insulin pen 15 unit SUBCUT TID@0800,1200,1999 RF: 0 levothyroxine 50 mcg capsule 50 mcg PO DAILY RF: 0 RenaPlex-D 800 mcg-12.5 mg -2,000 unit tablet 1 tab PO DAILY@1999 RF: 0 cetirizine [Zyrtec] 10 mg Tablet 10 mg PO DAILY@0800 RF: 0 diphenhydramine HCl [Benadryl] 25 mg Capsule 25 mg PO BEDTIME@1999 RF: 0 pramipexole [Mirapex] 0.125 mg Tablet 0.125 mg PO DAILY@0800 RF: 0 carbidopa-levodopa 25-100 mg tablet See Rx Instructions .ROUTE .COMPLEX RF: 0 Auryxia 210 mg iron tablet 630 mg PO TID@08,, RF: 0 melatonin 5 mg Tablet,Chewable 5 mg PO BEDTIME@1999 RF: 0 metoprolol succinate 100 mg tablet extended release 24 hr 100 mg PO DAILY RF: 0 clopidogrel 75 mg tablet 75 mg PO DAILY@ RF: 0 ropinirole 0.5 mg tablet 0.5 mg PO DAILY@1999 RF: 0 amlodipine 5 mg tablet 5 mg PO DAILY Qty: 30 RF: 0 Discharge Orders: Discharge ED (Routine); Ordered 01/27/21 Ordered By: Gisel Bryant Referrals: Vivienne Schulz MD [Primary Care Provider] - Discharge Diet: Advance as tolerated Discharge Activity: Resume usual activity Patient Instructions: Contusion in Adults (ED), Fall Prevention (ED) Activity Restrictions/Additional Instructions: Come back if you have any new or concerning issues. Please follow-up with Dr. Berman for discussions of bone contusion and chronic avulsion fracture if they are still bothering you. Here's CT reports: [address] [place], [place] [address]BHab ReportSigned Patient: Elvi Kaiser #: [id number]: 1965Acct#:[id number]/Sex: 55 / FADM Date: 01/27/21Loc: ERRoom/Bed:Attending Dr: Ordering Provider/Ordering MD: Gisel Bryant MD Date of Service: 01/27/21 Procedure(s): XR wrist LT 2V 39126 Accession Number(s): [id number] Report Number: [id number] PROCEDURE INFORMATION: Exam: XR Left Wrist Exam date and time: 01/27/2021 6:02 PM Age: 55 years old Clinical indication: Injury or trauma; Blunt trauma (contusions or hematomas); Injury date: 01/27/2021; Injury details: Fall - left sided impact; Prior surgery; Patient HX: Left wrist pain TECHNIQUE: Imaging protocol: XR Left wrist. Views: 1 or 2 views. COMPARISON: No relevant prior studies available. FINDINGS: Bones/joints: There is osteopenia. Postoperative clips are noted in the volar aspect of the distal forearm. There is subtle disruption of the trabecular pattern in the distal radial metaphysis compatible with probable microtrabecular fracture. No acute fracture of the ulna. No acute carpal bone fractures identified. Soft tissues: There is soft tissue edema greatest adjacent to the area of abnormality in the distal radius. Vasculature: There are vascular calcifications. XR/XR wrist LT 2V 57327 IMPRESSION: There is subtle disruption of the trabecular pattern in the distal radial metaphysis compatible with probable microtrabecular fracture. Radiation Dose CTDIVOL = (mGy): DLP = (mGy-cm) Dictated By:Kenton Blum By:Kenton Blum Date/Time:01/27/211907DD/ [address] [address]CQwg ReportSigned Patient: Elvi Kaiser #: [id number]: 1965Acct#:[id number]/Sex: 55 / FADM Date: 01/27/21Loc: ERRoom/Bed:Attending Dr: Ordering Provider/Ordering MD: Gisel Bryant MD Date of Service: 01/27/21 Procedure(s): XR ankle LT 2V 17630 Accession Number(s): [id number] Report Number: [id number] PROCEDURE INFORMATION: Exam: XR Left Ankle Exam date and time: 01/27/2021 6:02 PM Age: 55 years old Clinical indication: Injury or trauma; Blunt trauma; Injury date: 01/27/2021; Injury details: Fall - left sided impact; Prior surgery; Patient HX: Left ankle pain TECHNIQUE: Imaging protocol: XR Left ankle. Views: 1 or 2 views. COMPARISON: No relevant prior studies available. FINDINGS: Bones/joints: There is osteopenia. There is a small age-indeterminate avulsion fracture of the dorsum of the talus. No additional acute fracture. No dislocation. There is calcaneal enthesopathy. There is bony remodeling of the tip of the medial malleolus and fibula compatible with old ankle injury. Soft tissues: Mild soft tissue calcifications are identified and are nonspecific. Vasculature: There are vascular calcifications. XR/XR ankle LT 2V 63860 IMPRESSION: There is a small age-indeterminate avulsion fracture of the dorsum of the talus. 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
== END 2021-01-27 19:36 | disposition home or self-care (01) ==
PROVIDERS: Emergency Provider Emergency Medicine; PCP Internal Medicine
DX: S50.12XA Contusion of left forearm, initial encounter (principal); Z79.02 Long term (current) use of antithrombotics/antiplatelets; Z79.4 Long term (current) use of insulin; E11.22 Type 2 diabetes mellitus with diabetic chronic kidney disease; I12.0 Hypertensive chronic kidney disease with stage 5 chronic kidney disease or end stage renal disease; N18.6 End stage renal disease; E78.5 Hyperlipidemia, unspecified; W01.0XXA Fall on same level from slipping, tripping and stumbling without subsequent striking against object, initial encounter
CPT/HCPCS: 73090; 73100; 73130; 73590; 73600; 99282

== ENCOUNTER 2021-02-04 13:11 | Outpatient (CLI) | payer MEDICARE, MEDICAID, SELFPAY | END 2021-02-04 13:12 | disposition home or self-care (01) | LOC: WOUND 13:12 | PROVIDERS: PCP Internal Medicine; Visit Provider Thoracic Surgery (Cardiothoracic Vascular Surgery) | DX: E11.22 Type 2 diabetes mellitus with diabetic chronic kidney disease (principal); I12.0 Hypertensive chronic kidney disease with stage 5 chronic kidney disease or end stage renal disease; N18.6 End stage renal disease; L97.511 Non-pressure chronic ulcer of other part of right foot limited to breakdown of skin | CPT/HCPCS: G0463 ==

== ENCOUNTER 2021-04-27 13:54 | Outpatient (CLI) | payer MEDICARE, MEDICAID, SELFPAY ==
--- NOTE | 2021-04-27 13:59 | XR_ITS ---
WS: [id number] SCREENING DEXA SCAN [facility] CLINICAL INFORMATION: OSTEOPENIA COMPARISON: None. FINDINGS: The L1-L4 bone mineral density measures 1.075 g/cm2. This corresponds to a T score score of -0.9 and Z score of -0.5. Left femoral neck bone mineral density measures 0.843 g/cm2. This corresponds to a T score of -1.3 an d Z score of -1.0. Right femoral neck bone mineral density measures 0.815 g/cm2. This corresponds to a T score -1.5of an d Z score of -1.2. Mean femoral neck bone mineral density measures 0.829 g/cm2. This corresponds to a T score of -1.4 an d Z score of -1.1. XR/XR DEXA axial skeleton* 92910 IMPRESSION: Normal bone mineralization in the lumbar spine. Osteopenia in the femoral necks . Patient's FRAX calculated 10 year probability for major osteoporotic fracture i s 11.1 % and osteoporotic hip fracture is 2.8%.
== END 2021-04-27 13:55 | disposition home or self-care (01) ==
PROVIDERS: PCP Internal Medicine; Visit Provider Internal Medicine Nephrology
DX: M85.80 Other specified disorders of bone density and structure, unspecified site (principal)
CPT/HCPCS: 77080

== ENCOUNTER 2021-07-13 10:29 | Emergency (ER) | payer MEDICARE, MEDICAID, SELFPAY ==
[2021-07-13 10:49] VITALS: BP 157/73; PULSE 116; RESP 18; TEMP 36.2; O2SAT 98; BMI 37.0
--- NOTE | 2021-07-13 11:54 | ED_ITS ---
HPI - General Adult General: Chief complaint: General Medical Stated complaint: elevated heart rate / blood pressure Time Seen by Provider: 07/13/21 11:47 History of Present Illness: Patient is a 55-year-old female with history of CKD on dialysis Tuesday/Tuesday/Tuesday who presents the emergency room for concerns of palpitation. Patient tells me that on her way to dialysis, she felt like her heart was racing. While getting dialysis, she noticed that her heart rate has not improved. Patient said that she completed dialysis had about 3.3 L of fluid removed. Patient has no other focal complaints including chest pain, shortness of breath, pleuritic chest pain, leg swelling, fever or chills abdominal complaints nausea/vomiting or diarrhea. Denies any lightheadedness sensation while getting dialysis or after the dialysis episode. Patient tells me that in the past, she has had palpitations but usually they resolve on their own. Onset: 2 hr ago Duration:2 hrs Location:home Severity:moderate Associated symptoms: Reports palpitations; Deny chest pain, dyspnea, nausea, rash or vomiting Review of Systems Const: Denies: fever(s) or chills Eyes: Denies: change in vision ENMT: Denies: mouth pain Card: Reports: palpitations; Denies: chest pain Resp: Denies: dyspnea or non-productive cough GI: Denies: abdominal pain, nausea, vomiting or diarrhea : Denies: dysuria Musc: Denies: extremity pain Skin/Breast: Denies: rash or new lesions Neuro: Denies: weakness in extremities Psych: Reports: other (Normal mood) Eduardo/Lymph: Denies: easy bruising PFSH ED PFSH: Medical History Anxiety Chronic back pain COVID-19 De Quervain's tenosynovitis Diabetes ESRD (end stage renal disease) Hyperlipidemia Hypertension Hypothyroidism Insulin dependent type 2 diabetes mellitus Surgical History H/O section H/O dilation and curettage H/O neck surgery fusion History of appendectomy History of carpal tunnel repair History of temporal artery biopsy Hx of cholecystectomy S/P arteriovenous (AV) fistula creation S/P dialysis catheter insertion Removed 07/14/20 Status post colonoscopy Family History Father Bleeding disorder Other Diabetes Heart disease Hyperlipidemia Hypertension Kidney problem Migraines Stroke Denies family history of Anesthesia complication Social History Smoking and tobacco status: never smoked Second hand smoke exposure: No Alcohol intake: never Adopted: No Caregiver/support person: Yes Lives independently: Yes Household members: family Housing: House Marital status: Single Highest education level completed: High School Graduate service: No Current occupational status: disabled Current occupational exposures/hazards: No Pets and animals: Yes Pets & animals: dog(s) History of recent travel: No Sexually active: No Current gender identity: Female Sabina/Zoroastrianism: Latter-Day Special sabina needs: No Agree to transfusion: No Financial difficulty paying for basics: Decline to Answer Physical Exam Const: COMMON NORMALS: alert HENMT: COMMON NORMALS: atraumatic HEAD & SCALP: atraumatic MOUTH: moist mucous membranes not abnormal Eye: COMMON NORMALS: EOMs intact bilaterally and conjunctivae normal CONJUNCTIVA: Yes conjunctivae normal Neck/C-Spine: COMMON NORMALS: full ROM and supple Resp: COMMON NORMALS: normal respiratory effort and clear to auscultation davon aterally AUSCULTATION: clear to auscultation bilaterally Cardio: COMMON NORMALS: regular rate RATE: regular rate GI: COMMON NORMALS: Soft to palpation and non-tender PALPATION: Yes Soft to palpation Extremity: COMMON NORMALS: full ROM NARRATIVE EXTREMITY EXAM: +L arm fistula Neuro: SENSORIUM/ORIENTATION: Yes alert MOTOR EXAM: No Abnormal motor strength present and Other motor observations present (no focal motor deficits) Psych: COMMON NORMALS: speech normal SPEECH: Yes normal speech MOOD & AFFECT: Yes euthymic mood Course Vital Signs: Vital signs: Vital Signs Temperature 98.6 F 07/13/21 12:12 Pulse Rate 97 07/13/21 12:12 Respiratory Rate 16 07/13/21 12:12 Blood Pressure 175/68 07/13/21 12:12 Pulse Oximetry 175 H 07/13/21 12:12 [facility] - General Adult Medical Decision Making Patient is a 55-year-old female with history of ESRD on dialysis Tuesday/Tuesday/Tuesday presenting to the emergency room new onset of palpitation and fast heart rate before and during dialysis. On physical exam, patient will be in sinus tachycardia with heart rate in the 116 in triage. However on arrival in the emergency room without treatment, patient was found to heart rate 97 no signs of active bleeding from the fistula site. Blood work showed WBC of 11.3. Hemoglobin 10.2 up from baseline of 8.4-10. Cr of 3.1 similar to baseline. Electrolytes are within normal limit creatinine is consistent with baseline. TSH TS/T4 within normal limit. At the present time, it is unclear what is causing this tachycardia. Given the fact the patient does not have any pleuritic chest pain, hypoxemia, leg swelling, dyspnea, I do not suspect that symptoms are consistent with a pulmonary embolism. Patient also reports bilateral feet petechiae for the last 2-month. Patient has platelet of 300K. Do not suspect that this is platelet dysfunction. No other suspicion for any acute emergent processes. Patient has had an appointment with primary care provider. I have given patient instruction to follow-up with his primary care provider to request for dermatology appointment this time as I am not able to give out dermatology appointment. Disposition: Discharge. Patient counseled regarding diagnostic impression, treatment plan. Patient given ED strict return precautions to return for continuation, worsening, or development of new symptoms. Instructed to f/u w/ PCP regarding symptoms today. Patient verbalized understanding. Lab Data : 07/13/21 12:00 07/13/21 12:00 Laboratory Results WBC 11.3 10^3/uL (4.0-10.0) H 07/13/21 12:00 RBC 3.20 10^6/uL (4.1-5.3) L 07/13/21 12:00 Hgb 10.2 g/dL (11.5-15.3) L 07/13/21 12:00 Hct 32.0 % (37.0-47.0) L 07/13/21 12:00 MCV 100.0 fl (81-99) H 07/13/21 12:00 MCH 31.9 pg (28.0-34.0) 07/13/21 12:00 MCHC 31.9 g/dL (30.0-36.0) 07/13/21 12:00 RDW 14.0 % (12.1-15.1) 07/13/21 12:00 Plt Count 300 10^3/cmm (130-400) 07/13/21 12:00 MPV 10.0 fL (7.4-10.4) 07/13/21 12:00 Neut % (Auto) 83.2 % 07/13/21 12:00 Lymph % (Auto) 9.5 % 07/13/21 12:00 Lamb % (Auto) 6.8 % 07/13/21 12:00 Eos % (Auto) 0.0 % 07/13/21 12:00 Baso % (Auto) 0.1 % 07/13/21 12:00 Neut # (Auto) 9.43 10^3/uL (1.8-7.7) H 07/13/21 12:00 Lymph # (Auto) 1.1 10^3/uL (0.8-4.8) 07/13/21 12:00 Lamb # (Auto) 0.8 10^3/uL (0.2-0.9) 07/13/21 12:00 Eos # (Auto) 0.0 10^3/uL (0.0-0.8) 07/13/21 12:00 Baso # (Auto) 0.0 10^3/uL (0.0-0.1) 07/13/21 12:00 Nucleated RBC % (auto) 0 % 07/13/21 12:00 Nucleated RBCs # 0.0 /100WBC 07/13/21 12:00 Sodium 133 mmol/L (136-145) L 07/13/21 12:00 Potassium 4.7 mmol/L (3.5-5.1) 07/13/21 12:00 Chloride 94 mmol/L (98-107) L 07/13/21 12:00 Carbon Dioxide 27 mmol/L (22-29) 07/13/21 12:00 Anion Gap 16.7 (5-19) 07/13/21 12:00 BUN 28 mg/dL (6-20) H 07/13/21 12:00 Creatinine 3.1 mg/dL (0.5-0.9) H 07/13/21 12:00 GFR Calculation 15.5 mL/min (90-130) L 07/13/21 12:00 Glucose 205 mg/dL (65-115) H 07/13/21 12:00 Calculated Osmolality 287 mOsm/kg (285-295) 07/13/21 12:00 Calcium 8.9 mg/dL (8.5-10.5) 07/13/21 12:00 Magnesium 1.9 mg/dL (1.7-2.3) 07/13/21 12:00 TSH 2.12 uIU/mL (0.27-4.20) 07/13/21 12:00 Discharge Plan Discharge Patient Disposition: Home Clinical Impression: Palpitation Condition: Stable Prescriptions: No Action escitalopram oxalate [Lexapro] 20 mg tablet 40 mg PO DAILY@0800 0RF atorvastatin 80 mg tablet 80 mg PO DAILY 0RF Tresiba U-100 Insulin 100 unit/mL solution 60 unit SUBCUT DAILY@0800 0RF Victoza 2-Jeffrey 0.6 mg/0.1 mL (18 mg/3 mL) pen injector 1.8 mg SUBCUT Q24H 0RF Rx Instructions: TAKE AT 0800 cyclobenzaprine 10 mg tablet 10 mg PO TID PRN (Reason: Pain) 0RF Novolog Flexpen U-100 Insulin 100 unit/mL (3 mL) insulin pen 15 unit SUBCUT TID@0800,1200,1999 0RF levothyroxine 50 mcg capsule 50 mcg PO DAILY 0RF RenaPlex-D 800 mcg-12.5 mg -2,000 unit tablet 1 tab PO DAILY@1999 0RF cetirizine [Zyrtec] 10 mg Tablet 10 mg PO DAILY@0800 0RF diphenhydramine HCl [Benadryl] 25 mg Capsule 25 mg PO BEDTIME@1999 0RF pramipexole [Mirapex] 0.125 mg Tablet 0.125 mg PO DAILY@0800 0RF carbidopa-levodopa 25-100 mg tablet See Rx Instructions .ROUTE .COMPLEX 0RF Rx Instructions: 0.5 tab orally BEFORE DIALYSIS Auryxia 210 mg iron tablet 630 mg PO TID@08,12,20 0RF Rx Instructions: TAKE WITH MEALS melatonin 5 mg Tablet,Chewable 5 mg PO BEDTIME@1999 0RF metoprolol succinate 100 mg tablet extended release 24 hr 100 mg PO DAILY 0RF clopidogrel 75 mg tablet 75 mg PO DAILY@08 0RF ropinirole 0.5 mg tablet 0.5 mg PO DAILY@1999 0RF amlodipine 5 mg tablet 5 mg PO DAILY Qty: 30 0RF Discharge Orders: Discharge ED (Routine); Ordered 07/13/21 Ordered By: Gisel Bryant Referrals: Vivienne Schulz MD [Primary Care Provider] - Discharge Diet: Advance as tolerated Discharge Activity: Increase activity as tolerated Patient Instructions: Heart Palpitations (ED) Activity Restrictions/Additional Instructions: Please come back to the emergency room if you notice your palpitations worse, if have any fever or chills, chest pain, shortness of breath, or any new extremity complaints. Coding Level of Care Code ED Electronic Page Makeup System Operator for Chg Fwd Exam Comprehensive
[2021-07-13] MEDS: metoprolol tartrate 1 mg/1 mL SDV 5 mL 5 MG IVP (12:05)
[2021-07-13] MEDS: sodium chloride 0.9% 1,000 ML 999 ML IV (12:06)
[2021-07-13 12:12] VITALS: BP 175/68; PULSE 97; RESP 16; TEMP 37; O2SAT 175
[2021-07-13 12:14] LABS: Basophils % 0.1 %; Hemoglobin 10.2 g/dL (11.5-15.3); Lymphocytes # 1.1 10^3/uL (0.8-4.8); Lymphocytes % 9.5 %; Mean Corpuscular HGB Conc 31.9 g/dL (30.0-36.0); Mean Corpuscular Hemoglobin 31.9 pg (28.0-34.0); Monocytes # 0.8 10^3/uL (0.2-0.9); Monocytes % 6.8 %; Neutrophils # 9.43 10^3/uL (1.8-7.7); Neutrophils % 83.2 %; Nucleated Red Blood Cells % 0 %; Platelet Count 300 10^3/cmm (130-400); White Blood Count 11.3 10^3/uL (4.0-10.0)
[2021-07-13 12:55] LABS: Anion Gap 16.7 (5-19); Blood Urea Nitrogen 28 mg/dL (6-20); Calcium 8.9 mg/dL (8.5-10.5); Carbon Dioxide 27 mmol/L (22-29); Chloride 94 mmol/L (98-107); Glomerular Filtration Rate 15.5 mL/min (90-130); Glucose 205 mg/dL (65-115); Magnesium 1.9 mg/dL (1.7-2.3); Osmolality Calculated 287 mOsm/kg (285-295); Potassium 4.7 mmol/L (3.5-5.1); Sodium 133 mmol/L (136-145); Thyroid Stimulating Hormone 2.12 uIU/mL (0.27-4.20)
[2021-07-13 13:16] LABS: Free T4 Free Thyroxine 0.87 ng/dL (0.82-1.77)
[2021-07-13 13:28] VITALS: BP 136/55; PULSE 90; RESP 16; TEMP 36.8; O2SAT 96
== END 2021-07-13 13:30 | disposition home or self-care (01) ==
PROVIDERS: Emergency Provider Emergency Medicine; PCP Internal Medicine
DX: R00.2 Palpitations (principal); E11.22 Type 2 diabetes mellitus with diabetic chronic kidney disease; I12.0 Hypertensive chronic kidney disease with stage 5 chronic kidney disease or end stage renal disease; N18.6 End stage renal disease; Z99.2 Dependence on renal dialysis; Z79.4 Long term (current) use of insulin; Z79.02 Long term (current) use of antithrombotics/antiplatelets; Z86.73 Personal history of transient ischemic attack (TIA), and cerebral infarction without residual deficits
CPT/HCPCS: 80048; 83735; 84439; 84443; 85025; 96361; 96374; 99283; J3490; J7030

== ENCOUNTER 2021-07-20 10:19 | Emergency (ER) | payer MEDICARE, MEDICAID, SELFPAY ==
[2021-07-20 10:35] VITALS: BP 154/77; PULSE 89; RESP 16; TEMP 36.6; O2SAT 95; BMI 34.2
[2021-07-20 11:41] VITALS: BP 157/67; PULSE 91; RESP 16; O2SAT 96
--- NOTE | 2021-07-20 11:41 | XRR_ITS ---
NOTE: Report was unsigned for reason: Order was edited. Original Signature date and time was: 07/20/2021 1259 PROCEDURE INFORMATION: Exam: XR Chest Exam date and time: 07/20/2021 11:52 AM Age: 55 years old Clinical indication: Dyspnea TECHNIQUE: Imaging protocol: XR of the chest. Views: 1 view. COMPARISON: CR XR chest 1V portable [id number] 06/20/2020 9:45 PM FINDINGS: Lungs: Unremarkable. No consolidation. Pleural spaces: Unremarkable. No pleural effusion. No pneumothorax. Heart/Mediastinum: Unremarkable. No cardiomegaly. Bones/joints: Postsurgical hardware is seen in the cervical spine [facility]XR chest 2V* [id number] IMPRESSION: 1. No acute findings. 2. Surgical hardware in the cervical spine
--- NOTE | 2021-07-20 11:50 | ED_ITS ---
HPI - General Adult General: Chief complaint: Shortness of Breath/Dyspnea Stated complaint: shortness of breath Time Seen by Provider: 07/20/21 11:41 History of Present Illness: Patient is a 55-year-old female with history of ESRD on dialysis who was obtaining dialysis earlier today when staff noticed that her O2 sat was in the 70 to 80s. Patient tells me that she was occasionally short of breath while getting dialysis because she was wearing a mask. Patient says that that only lasted for about a few seconds since then, she has not had any difficulty breathing. Patient denies any fever or chills, chest pain, palpitation, lightheadedness, nausea/vomiting, melena hematochezia. Patient had one episode of loose stool yesterday. Patient completed dialysis without any issues. On arrival to the emergency room, patient denies any any dyspnea. Patient denies any exertional dyspnea or fatigue. Patient tells me that she thinks that dialysis nurse did not read my pulse ox correctly. Onset:1 hr ago Duration: 5 minutes Location:dialysis clinic Severity:mild Associated symptoms: Reports dyspnea; Deny chest pain, nausea, rash, palpitations or vomiting Review of Systems Const: Denies: fever(s) or chills Eyes: Denies: change in vision ENMT: Denies: mouth pain Card: Denies: chest pain or palpitations Resp: Reports: dyspnea; Denies: non-productive cough GI: Denies: abdominal pain, nausea, vomiting or diarrhea : Denies: dysuria Musc: Denies: extremity pain Skin/Breast: Denies: rash or new lesions Neuro: Denies: weakness in extremities Psych: Reports: other (Normal mood) Eduardo/Lymph: Denies: easy bruising PFSH ED PFSH: Medical History Anxiety Chronic back pain COVID-19 De Quervain's tenosynovitis Diabetes ESRD (end stage renal disease) Hyperlipidemia Hypertension Hypothyroidism Insulin dependent type 2 diabetes mellitus Surgical History H/O section H/O dilation and curettage H/O neck surgery fusion History of appendectomy History of carpal tunnel repair History of temporal artery biopsy Hx of cholecystectomy S/P arteriovenous (AV) fistula creation S/P dialysis catheter insertion Removed 07/14/20 Status post colonoscopy Family History Father Bleeding disorder Other Diabetes Heart disease Hyperlipidemia Hypertension Kidney problem Migraines Stroke Denies family history of Anesthesia complication Social History Smoking and tobacco status: never smoked Second hand smoke exposure: No Alcohol intake: never Adopted: No Caregiver/support person: Yes Lives independently: Yes Household members: family Housing: House Marital status: Single Highest education level completed: High School Graduate service: No Current occupational status: disabled Current occupational exposures/hazards: No Pets and animals: Yes Pets & animals: dog(s) History of recent travel: No Sexually active: No Current gender identity: Female Sabina/Religious: Adventist Special sabina needs: No Agree to transfusion: No Financial difficulty paying for basics: Decline to Answer Physical Exam Const: COMMON NORMALS: alert HENMT: COMMON NORMALS: atraumatic HEAD & SCALP: atraumatic MOUTH: moist mucous membranes not abnormal Eye: COMMON NORMALS: EOMs intact bilaterally and conjunctivae normal CONJUNCTIVA: Yes conjunctivae normal Neck/C-Spine: COMMON NORMALS: full ROM and supple Resp: COMMON NORMALS: normal respiratory effort and clear to auscultation bilaterally AUSCULTATION: clear to auscultation bilaterally Cardio: COMMON NORMALS: regular rate RATE: regular rate GI: COMMON NORMALS: Soft to palpation and non-tender PALPATION: Yes Soft to palpation Extremity: COMMON NORMALS: full ROM OTHER: R AV fistula Neuro: SENSORIUM/ORIENTATION: Yes alert MOTOR EXAM: No Abnormal motor strength present and Other motor observations present (no focal motor deficits) Psych: COMMON NORMALS: speech normal SPEECH: Yes normal speech MOOD & AFFECT: Yes euthymic mood Course Vital Signs: Vital signs: Vital Signs Temperature 97.8 F 07/20/21 10:35 Pulse Rate 91 07/20/21 12:18 Respiratory Rate 16 07/20/21 12:18 Blood Pressure 157/67 07/20/21 12:18 Pulse Oximetry 95 07/20/21 12:18 [facility] - General Adult Medical Decision Making 55-year-old female history of dialysis presenting to the emergency room after concern for dyspnea during dialysis. On arrival, patient's AAOx3, in no respiratory distress. Patient continued to be satting at greater than 95% observe the emergency room for 30 minutes. At the present time, patient tells me that she would like to go home without blood work. I have offered x-ray patient agrees. X-ray did not show any signs of focal pathologies. Again patient is in no respiratory distress and elects to go home without further work-up. I have given patient strict return precaution for any worsening shortness of breath, dyspnea, or any new concerns. Disposition: Discharge. Patient counseled regarding diagnostic impression, treatment plan. Patient given ED strict return precautions to return for continuation, worsening, or development of new symptoms. Instructed to f/u w/ PCP regarding symptoms today. Patient verbalized understanding. Imaging Data Other Imaging: Radiologist's impression: [id number] [id number] XRay Report Signed Patient: Elvi Kaiser Unit #: [id number] : 1965 Age/Sex: 55 / F ADM Date: 07/20/21 Loc: ER Room/Bed: Attending Dr: Ordering Provider/Ordering MD: Gisel Bryant MD Date of Service: 07/20/21 Procedure(s): XR chest 2V* [id number] Accession Number(s): [id number] Report Number: [id number] PROCEDURE INFORMATION: Exam: XR Chest Exam date and time: 07/20/2021 11:52 AM Age: 55 years old Clinical indication: Dyspnea TECHNIQUE: Imaging protocol: XR of the chest. Views: 1 view. COMPARISON: CR XR chest 1V portable [id number] 06/20/2020 9:45 PM FINDINGS: Lungs: Unremarkable. No consolidation. Pleural spaces: Unremarkable. No pleural effusion. No pneumothorax. Heart/Mediastinum: Unremarkable. No cardiomegaly. Bones/joints: Postsurgical hardware is seen in the cervical spine XR/XR chest 2V* [id number] IMPRESSION: 1. No acute findings. 2. Surgical hardware in the cervical spine ? Dictated By: Ernesto Odonnell Signed By: Ernesto Odonnell Signed Date/Time: 07/20/21 1259 DD/ 1152 Discharge Plan Discharge Patient Disposition: Home Clinical Impression: Dyspnea Condition: Stable Prescriptions: No Action escitalopram oxalate [Lexapro] 20 mg tablet 40 mg PO DAILY@0800 0RF atorvastatin 80 mg tablet 80 mg PO DAILY 0RF Tresiba U-100 Insulin 100 unit/mL solution 60 unit SUBCUT DAILY@0800 0RF Victoza 2-Jeffrey 0.6 mg/0.1 mL (18 mg/3 mL) pen injector 1.8 mg SUBCUT Q24H 0RF Rx Instructions: TAKE AT 0800 cyclobenzaprine 10 mg tablet 10 mg PO TID PRN (Reason: Pain) 0RF Novolog Flexpen U-100 Insulin 100 unit/mL (3 mL) insulin pen 15 unit SUBCUT TID@0800,1200,2000 0RF levothyroxine 50 mcg capsule 50 mcg PO DAILY 0RF RenaPlex-D 800 mcg-12.5 mg -2,000 unit tablet 1 tab PO DAILY@1999 0RF cetirizine [Zyrtec] 10 mg Tablet 10 mg PO DAILY@0800 0RF diphenhydramine HCl [Benadryl] 25 mg Capsule 25 mg PO BEDTIME@1999 0RF pramipexole [Mirapex] 0.125 mg Tablet 0.125 mg PO DAILY@0800 0RF carbidopa-levodopa 25-100 mg tablet See Rx Instructions .ROUTE .COMPLEX 0RF Rx Instructions: 0.5 tab orally BEFORE DIALYSIS Auryxia 210 mg iron tablet 630 mg PO TID@08,12,20 0RF Rx Instructions: TAKE WITH MEALS melatonin 5 mg Tablet,Chewable 5 mg PO BEDTIME@1999 0RF metoprolol succinate 100 mg tablet extended release 24 hr 100 mg PO DAILY 0RF clopidogrel 75 mg tablet 75 mg PO DAILY@08 0RF ropinirole 0.5 mg tablet 0.5 mg PO DAILY@2000 0RF amlodipine 5 mg tablet 5 mg PO DAILY Qty: 30 0RF Discharge Orders: Discharge ED (Routine); Ordered 07/20/21 Ordered By: Gisel Bryant Referrals: Vivienne Schulz MD [Primary Care Provider] - Discharge Diet: Advance as tolerated Discharge Activity: Increase activity as tolerated Patient Instructions: Dyspnea (ED) Activity Restrictions/Additional Instructions: Please return the emergency room if your pulse ox reads less than 92%. Please come back to the emergency room for any new or concerning concerns, shortness of breath, chest pain, palpitation lightheadedness, any new extreme complaints. Coding Level of Care Code ED Custodial Officer for Chg Fwd Exam Comprehensive
[2021-07-20 12:18] VITALS: BP 157/67; PULSE 91; RESP 16; O2SAT 95
== END 2021-07-20 12:24 | disposition home or self-care (01) ==
PROVIDERS: Emergency Provider Emergency Medicine; PCP Internal Medicine
DX: R06.00 Dyspnea, unspecified (principal); I12.0 Hypertensive chronic kidney disease with stage 5 chronic kidney disease or end stage renal disease; E11.22 Type 2 diabetes mellitus with diabetic chronic kidney disease; N18.6 End stage renal disease; Z99.2 Dependence on renal dialysis; E78.5 Hyperlipidemia, unspecified; E03.9 Hypothyroidism, unspecified; Z79.4 Long term (current) use of insulin
CPT/HCPCS: 71045; 71046; 99282

== ENCOUNTER → 2021-07-21 13:18 | Outpatient (BNVA) | payer MEDICARE, MEDICAID, SELFPAY | PROVIDERS: PCP Internal Medicine; Visit Provider Emergency Medicine | DX: E11.622 Type 2 diabetes mellitus with other skin ulcer (principal); I96 Gangrene, not elsewhere classified; L97.321 Non-pressure chronic ulcer of left ankle limited to breakdown of skin | CPT/HCPCS: 99213 ==

== ENCOUNTER 2021-08-06 09:43 | Outpatient (CLI) | payer MEDICARE, MEDICAID, SELFPAY ==
--- NOTE | 2021-08-06 09:51 | XRR_ITS ---
PROCEDURE INFORMATION: Exam: XR Left Ankle Exam date and time: 08/06/2021 10:23 AM Age: 55 years old Clinical indication: Pain; Ankle; Left; Additional info: Left ankle pain TECHNIQUE: Imaging protocol: XR Left ankle. Views: 3 or more views. COMPARISON: CR XR ankle LT 2V [id number] 01/27/2021 6:10 PM FINDINGS: Bones/joints: Mild tibiotalar joint osteoarthritis. Soft tissues: Normal. Vasculature: Scattered vascular calcifications. XR/XR ankle LT min 3V* [id number] IMPRESSION: 1. Scattered vascular calcifications. 2. Mild tibiotalar joint osteoarthritis.
== END 2021-08-06 09:44 | disposition home or self-care (01) ==
LOC: RAD 09:47
PROVIDERS: PCP Internal Medicine; Visit Provider Internal Medicine
DX: M25.572 Pain in left ankle and joints of left foot (principal)
CPT/HCPCS: 73610

== ENCOUNTER → 2021-09-10 12:33 | Outpatient (BNVA) | payer MEDICARE, MEDICAID, SELFPAY | PROVIDERS: PCP Internal Medicine; Referring Provider Internal Medicine Nephrology; Visit Provider Internal Medicine | DX: E11.22 Type 2 diabetes mellitus with diabetic chronic kidney disease (principal); N18.6 End stage renal disease; G31.84 Mild cognitive impairment of uncertain or unknown etiology; E16.0 Drug-induced hypoglycemia without coma; T38.3X5A Adverse effect of insulin and oral hypoglycemic [antidiabetic] drugs, initial encounter; R63.0 Anorexia; E78.5 Hyperlipidemia, unspecified; E03.9 Hypothyroidism, unspecified; Z79.4 Long term (current) use of insulin; Z68.38 Body mass index [BMI] 38.0-38.9, adult | CPT/HCPCS: 99204 ==

== ENCOUNTER 2021-09-15 08:11 | Outpatient (CLI) | payer MEDICARE, MEDICAID, SELFPAY ==
--- NOTE | 2021-09-15 08:35 | MM_ITS ---
WS: [id number] BILATERAL SCREENING DIGITAL BREAST TOMOSYNTHESIS MAMMOGRAM WITH CAD HISTORY: SCREENING COMPARISON: 02/09/2018 and 01/21/2017 Bilateral CC and MLO views with tomosynthesis and synthetic mammography submitted. Computer aided det ection analyzed. Breast composition: There are scattered areas of fibroglandular density. No suspicious masses, microc alcifications or architectural distortion. Significant progression of bilateral breast arterial calci fications since the prior study. No new distortion or mass. MM/[place] [id number] IMPRESSION: BI-RADS: 2-Benign FOLLOW UP: 1 Year Follow-up
== END 2021-09-15 08:12 | disposition home or self-care (01) ==
LOC: RAD 08:19
PROVIDERS: PCP Internal Medicine; Visit Provider Internal Medicine
DX: Z12.31 Encounter for screening mammogram for malignant neoplasm of breast (principal)
CPT/HCPCS: 77063; 77067

== ENCOUNTER → 2021-09-24 08:46 | Outpatient (BNVA) | payer MEDICARE, MEDICAID, SELFPAY | PROVIDERS: PCP Internal Medicine; Visit Provider Internal Medicine | DX: E11.649 Type 2 diabetes mellitus with hypoglycemia without coma (principal); E16.0 Drug-induced hypoglycemia without coma; T38.3X5A Adverse effect of insulin and oral hypoglycemic [antidiabetic] drugs, initial encounter; E11.22 Type 2 diabetes mellitus with diabetic chronic kidney disease; N18.6 End stage renal disease; E03.9 Hypothyroidism, unspecified; E78.5 Hyperlipidemia, unspecified; R63.0 Anorexia; G31.84 Mild cognitive impairment of uncertain or unknown etiology; Z79.4 Long term (current) use of insulin; Z68.37 Body mass index [BMI] 37.0-37.9, adult | CPT/HCPCS: 99214 ==

== ENCOUNTER 2021-10-22 05:06 | Inpatient (IN) | payer MEDICARE, MEDICAID, SELFPAY ==
[2021-10-22] VITALS (17 sets, daily range): BP systolic 140–187; BP diastolic 69–119; PULSE 82–120; RESP 16–22; TEMP 36.3–36.8; O2SAT 91–98; BMI 38.1; BMI 38.8; BMI 40.1
--- NOTE | 2021-10-22 05:09 | CTR_ITS ---
PROCEDURE INFORMATION: Exam: CT Maxillofacial Without Contrast Exam date and time: 10/22/2021 6:48 AM Age: 55 years old Clinical indication: Injury or trauma; Fall; Blunt trauma (contusions or hematomas); Ocular (eye or eyeball) and orbit/periorbital; Left TECHNIQUE: Imaging protocol: Computed tomography of the of the face without contrast. Radiation optimization: All CT scans at this facility use at least one of these dose optimization techniques: automated exposure control; mA and/or kV adjustment per patient size (includes targeted exams where dose is matched to clinical indication); or iterative reconstruction. COMPARISON: CT head wo con* [id number] 10/22/2021 6:43 AM RADIATION DOSE METRICS: Total DLP (mGy-cm): 560.88 FINDINGS: Orbital cavities: Ocular globes are intact. No evidence of rupture. No evidence of retrobulbar hematoma, exophthalmos, or mass. Bones/joints: No evidence of acute fracture. Paranasal sinuses: There is small amount of fluid in left maxillary sinus. There is a very small left maxillary sinus retention polyp. Soft tissues: There is large left cheek, periorbital, and nasal region hematoma and soft tissue swelling. Vasculature: Calcification is noted at bilateral carotid bifurcations. Dental: The patient is edentulous. CT/CT facial bones wo con* [id number] IMPRESSION: No acute fracture. No evidence intraorbital / ocular injury.
--- NOTE | 2021-10-22 05:09 | CTR_ITS ---
PROCEDURE INFORMATION: Exam: CT Head Without Contrast Exam date and time: 10/22/2021 6:43 AM Age: 55 years old Clinical indication: Injury or trauma; Fall; Blunt trauma (contusions or hematomas); Altered mental status/memory loss TECHNIQUE: Imaging protocol: Computed tomography of the head without contrast. Radiation optimization: All CT scans at this facility use at least one of these dose optimization techniques: automated exposure control; mA and/or kV adjustment per patient size (includes targeted exams where dose is matched to clinical indication); or iterative reconstruction. COMPARISON: CT neck wo con [id number] 03/05/2015 4:57 PM RADIATION DOSE METRICS: Total DLP (mGy-cm): 1927.68 FINDINGS: Brain: There is patchy white matter lucency consistent with mild microvascular change. There is no acute intracranial hemorrhage. No extra-axial fluid collection. No evidence of acute infarct. Cee white differentiation is intact. There is no evidence of mass. There is no mass effect or midline shift. Cerebral ventricles: No ventriculomegaly. Paranasal sinuses: There is minimal fluid in partially visualized left maxillary sinus. Mastoid air cells: No significant mastoid effusion. Bones/joints: No acute fracture. Soft tissues: There is a large left cheek and periorbital hematoma with also swelling extending to left nasal bridge. Vasculature: There are carotid and vertebral arteries calcifications. CT/CT head wo con* [id number] IMPRESSION: No evidence of acute intracranial abnormality. No acute hemorrhage. No evidence of acute infarct or mass.
--- NOTE | 2021-10-22 05:09 | CTR_ITS ---
PROCEDURE INFORMATION: Exam: CT Cervical Spine Without Contrast Exam date and time: 10/22/2021 6:51 AM Age: 55 years old Clinical indication: Injury or trauma; Fall; Blunt trauma TECHNIQUE: Imaging protocol: Computed tomography of the cervical spine without contrast. Radiation optimization: All CT scans at this facility use at least one of these dose optimization techniques: automated exposure control; mA and/or kV adjustment per patient size (includes targeted exams where dose is matched to clinical indication); or iterative reconstruction. COMPARISON: CT neck wo con [id number] 03/05/2015 4:57 PM RADIATION DOSE METRICS: Total DLP (mGy-cm): 424.87 FINDINGS: Bones/joints: There is anterior plate and screw fusion of C5 through C7 without evidence of complication. Loss of cervical lordosis may be postsurgical, positional or associated with muscular spasm. Vertebral body heights are maintained. There is no fracture or dislocation. Facet joints appear well aligned. Discs/Spinal canal/Neural foramina: There are mild uncinate and facet osteophytes and small amount posterior bony ridging at levels of fusion without severe spinal stenosis or neural foraminal narrowing. Prevertebral and retropharyngeal spaces: Prevertebral soft tissues appear normal. Lungs: Lung apices are unremarkable for acute finding. Soft tissues: Unremarkable. CT/CT cervical spin wo con* [id number] IMPRESSION: 1. Loss of cervical lordosis. No evidence of fracture or dislocation. 2. Other findings as described.
--- NOTE | 2021-10-22 05:10 | W.ED.FALL ---
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 She hit her head on the floor she has a rather large hematoma to her left eye she is unsure if she had loss of consciousness she states she has facial pain and head pain denies any other injuries denies any vomiting or diarrhea. Associated symptoms-after fall: Reports headache(s) and neck pain; Denies abdominal pain or chest pain Review of Systems Const: Denies: fever(s), chills, body aches or change in appetite Eyes: Denies: blurry vision or eye discomfort ENMT: Reports: sinus pain Card: Denies: chest pain Resp: Denies: dyspnea GI: Denies: abdominal pain, nausea, vomiting or diarrhea : Denies: dysuria Musc: Reports: neck pain Skin/Breast: Denies: rash Neuro: Reports: headache(s) Psych: Denies: depression Eduardo/Lymph: Denies: easy bruising All/Imm: Denies: urticaria PFSH ED PFSH: Medical History Anxiety Chronic back pain COVID-19 De Quervain's tenosynovitis Diabetes ESRD (end stage renal disease) Hyperlipidemia Hypertension Hypothyroidism Insulin dependent type 2 diabetes mellitus Surgical History H/O section H/O dilation and curettage H/O neck surgery fusion History of appendectomy History of carpal tunnel repair History of temporal artery biopsy Hx of cholecystectomy S/P arteriovenous (AV) fistula creation S/P dialysis catheter insertion Removed 07/14/20 Status post colonoscopy Family History Father Bleeding disorder Other Diabetes Heart disease Hyperlipidemia Hypertension Kidney problem Migraines Stroke Denies family history of Anesthesia complication Social History Smoking and tobacco status: never smoked Second hand smoke exposure: No Alcohol intake: never Adopted: No Caregiver/support person: Yes Lives independently: Yes Household members: family Housing: House Marital status: Single Highest education level completed: High School Graduate service: No Current occupational status: disabled Current occupational exposures/hazards: No Pets and animals: Yes Pets & animals: dog(s) History of recent travel: No Sexually active: No Current gender identity: Female Sabina/Jewish: [employer] Special sabina needs: No Agree to transfusion: No Financial difficulty paying for basics: Decline to Answer Physical Exam Const: COMMON NORMALS: no acute distress, patient oriented x3 and healthy appearing HENMT: COMMON NORMALS: normocephalic; head/scalp not atraumatic (large hematoma over left eye) HEAD & SCALP: normocephalic; not atraumatic (large hematoma over left eye) Eye: COMMON NORMALS: Equal, round and reactive pupils present and EOMs intact bilaterally PUPIL: Yes Equal, round and reactive pupils present Neck/C-Spine: COMMON NORMALS: full ROM and supple Chest: COMMONS NORMALS: normal inspection of the chest and normal palpation of entire chest wall Resp: COMMON NORMALS: normal respiratory effort, No retractions, No use of accessory muscles and clear to auscultation bilaterally AUSCULTATION: clear to auscultation bilaterally Cardio: COMMON NORMALS: regular rate, regular rhythm and No murmurs present (Cardio) RATE: regular rate RHYTHM: regular rhythm GI: COMMON NORMALS: Normal to inspection, nondistended, normoactive bowel sounds present, Soft to palpation, non-tender and no masses PALPATION: Yes Soft to palpation Extremity: COMMON NORMALS: normal to inspection and full ROM Neuro: COMMON NORMALS: patient oriented x3, moves all extremities and no focal motor deficits Psych: COMMON NORMALS: mental status grossly normal, Normal thought process present and cooperative THOUGHT PROCESS: Normal thought process present Skin: COMMON NORMALS: no rashes or lesions noted and no wounds GENERAL SKIN EXAM: no rashes or lesions noted Course Vital Signs: Vital signs: Vital Signs Temperature 98.2 F 10/22/21 05:17 Pulse Rate 87 10/22/21 09:00 Respiratory Rate 16 10/22/21 06:08 Blood Pressure 140/76 10/22/21 09:00 Pulse Oximetry 98 10/22/21 09:00 MDM - Fall Lab Data : 10/22/21 05:18 10/22/21 05:18 Radiology Impressions Cervical Spine CT 10/22/21 05:09 IMPRESSION: 1. Loss of cervical lordosis. No evidence of fracture or dislocation. 2. Other findings as described. Face CT 10/22/21 05:09 IMPRESSION: No acute fracture. No evidence intraorbital / ocular injury. Head CT 10/22/21 05:09 IMPRESSION: No evidence of acute intracranial abnormality. No acute hemorrhage. No evidence of acute infarct or mass. Head/Neck CTA 10/22/21 08:37 IMPRESSION: 1. Minimal atherosclerotic disease within the cervical carotid arteries. Less than 50% stenosis. 2. Small caliber distal RIGHT M2 segment with acute thrombus. 3. Mild atherosclerotic disease supraclinoid carotid arteries. 4. Development of an acute infarct in the posterior division of the RIGHT middle cerebral artery. Notified Jd Mejía DO at 10/22/2021 10:24 AM. Laboratory Results WBC 7.5 10^3/uL (4.0-10.0) 10/22/21 05:18 RBC 3.69 10^6/uL (4.1-5.3) L 10/22/21 05:18 Hgb 11.1 g/dL (11.5-15.3) L 10/22/21 05:18 Hct 35.2 % (37.0-47.0) L 10/22/21 05:18 MCV 95.4 fl (81-99) 10/22/21 05:18 MCH 30.1 pg (28.0-34.0) 10/22/21 05:18 MCHC 31.5 g/dL (30.0-36.0) 10/22/21 05:18 RDW 15.6 % (12.1-15.1) H 10/22/21 05:18 Plt Count 271 10^3/cmm (130-400) 10/22/21 05:18 MPV 10.9 fL (7.4-10.4) H 10/22/21 05:18 Neut % (Auto) 71.0 % 10/22/21 05:18 Lymph % (Auto) 20.1 % 10/22/21 05:18 [place] % (Auto) 8.5 % 10/22/21 05:18 Eos % (Auto) 0.0 % 10/22/21 05:18 Baso % (Auto) 0.1 % 10/22/21 05:18 Neut # (Auto) 5.33 10^3/uL (1.8-7.7) 10/22/21 05:18 Lymph # (Auto) 1.5 10^3/uL (0.8-4.8) 10/22/21 05:18 [place] # (Auto) 0.6 10^3/uL (0.2-0.9) 10/22/21 05:18 Eos # (Auto) 0.0 10^3/uL (0.0-0.8) 10/22/21 05:18 Baso # (Auto) 0.0 10^3/uL (0.0-0.1) 10/22/21 05:18 Nucleated RBC % (auto) 0 % 10/22/21 05:18 Nucleated RBCs # 0.0 /100WBC 10/22/21 05:18 Sodium 134 mmol/L (136-145) L 10/22/21 05:18 Potassium 4.8 mmol/L (3.5-5.1) 10/22/21 05:18 Chloride 92 mmol/L (98-107) L 10/22/21 05:18 Carbon Dioxide 30 mmol/L (22-29) H 10/22/21 05:18 Anion Gap 16.8 (5-19) 10/22/21 05:18 BUN 32 mg/dL (6-20) H 10/22/21 05:18 Creatinine 4.4 mg/dL (0.5-0.9) H 10/22/21 05:18 GFR Calculation 10.4 mL/min (90-130) L 10/22/21 05:18 Glucose 284 mg/dL (65-115) H 10/22/21 05:18 Calculated Osmolality 295 mOsm/kg (285-295) 10/22/21 05:18 Calcium 8.5 mg/dL (8.5-10.5) 10/22/21 05:18 Discharge Plan Discharge Patient Disposition: Admitted As Inpatient Admit Provider: Basil Siddiqui Clinical Impression: CVA (cerebral vascular accident), Insulin dependent type 2 diabetes mellitus, ESRD (end stage renal disease), Hypothyroidism, Hyperlipidemia, MCI (mild cognitive impairment) Condition: Stable Coding Level of Care Code ED Internet Network Specialist for Chg Fwd Exam Comprehensive Documented by User: Jd Mejía DO 10/22/21 13:13 HPI - Fall General: Chief Complaint: Fall Stated Complaint: FALL Time Seen by Provider: 10/22/21 05:07 PFSH ED PFSH: Medical History Anxiety Chronic back pain COVID-19 De Quervain's tenosynovitis Diabetes ESRD (end stage renal disease) Hyperlipidemia Hypertension Hypothyroidism Insulin dependent type 2 diabetes mellitus Surgical History H/O section H/O dilation and curettage H/O neck surgery fusion History of appendectomy History of carpal tunnel repair History of temporal artery biopsy Hx of cholecystectomy S/P arteriovenous (AV) fistula creation S/P dialysis catheter insertion Removed 07/14/20 Status post colonoscopy Family History Father Bleeding disorder Other Diabetes Heart disease Hyperlipidemia Hypertension Kidney problem Migraines Stroke Denies family history of Anesthesia complication Social History Smoking and tobacco status: never smoked Second hand smoke exposure: No Alcohol intake: never Adopted: No Caregiver/support person: Yes Lives independently: Yes Household members: family Housing: House Marital status: Single Highest education level completed: High School Graduate service: No Current occupational status: disabled Current occupational exposures/hazards: No Pets and animals: Yes Pets & animals: dog(s) History of recent travel: No Sexually active: No Current gender identity: Female Sabina/Jewish: [employer] Special sabina needs: No Agree to transfusion: No Financial difficulty paying for basics: Decline to Answer Course Vital Signs: Vital signs: Vital Signs Temperature 98.2 F 10/22/21 05:17 Pulse Rate 87 10/22/21 09:00 Respiratory Rate 16 10/22/21 06:08 Blood Pressure 140/76 10/22/21 09:00 Pulse Oximetry 98 10/22/21 09:00 MDM - Fall Medical Decision Making Assumed care at change of shift. Patient reportedly had a fall. Initially they were unable to do the CTs and they reported to me they are unable to get the CTs or COVID ordered we gave her sedation because she was complaining of claustrophobia in the CT scanner after sedation earlier the CTs report came back as negative went to evaluate the patient she appears to have a left-sided facial droop and talking to the family her last known well was sometime last night but they do not know exactly when because they were not with her other other family members that were with her they are contacting for last known well. She got up this morning and fell while trying to go to the bathroom. She has ataxia of the left arm some dysarthria and weakness with drift in the left arm and leg she also appears to have some facial droop on the left. Dr. Wakefield reported to me that her vision was completely intact. She has a large amount of swelling on the left side of her face. In reviewing her medication she is on Plavix but pharmacy retail support specialist states that she has not filled it with the pharmacy for quite some time. CTA of the head was done and there appears to be a distal M2 segment thrombus and some early edema changes. I discussed Dr. Rodriguez and Dr. Sanches were uncertain if this is something that would be a candidate for embolectomy or uploading the films and will discuss with on-call neurology for [facility]. Family members present in the ER check to the family member she lives with and they are reporting a last known well time of around 9 PM last evening. Atiya reviewed the case and reviewed with her interventional radiologist at this point they do not feel this patient is a candidate for thrombectomy. Discussed with the family at time of presentation she was outside of the window of opportunity for intervention. We will go ahead and admit for stroke. She does have some pretty noticeable left-sided neglect. Discussed Dr. Siddiqui orders have been written Medical Records I reviewed the patient's medical records. Lab Data I reviewed the patient's lab results. : 10/22/21 05:18 10/22/21 05:18 Radiology Impressions Cervical Spine CT 10/22/21 05:09 IMPRESSION: 1. Loss of cervical lordosis. No evidence of fracture or dislocation. 2. Other findings as described. Face CT 10/22/21 05:09 IMPRESSION: No acute fracture. No evidence intraorbital / ocular injury. Head CT 10/22/21 05:09 IMPRESSION: No evidence of acute intracranial abnormality. No acute hemorrhage. No evidence of acute infarct or mass. Head/Neck CTA 10/22/21 08:37 IMPRESSION: 1. Minimal atherosclerotic disease within the cervical carotid arteries. Less than 50% stenosis. 2. Small caliber distal RIGHT M2 segment with acute thrombus. 3. Mild atherosclerotic disease supraclinoid carotid arteries. 4. Development of an acute infarct in the posterior division of the RIGHT middle cerebral artery. Notified Jd Mejía DO at 10/22/2021 10:24 AM. Laboratory Results WBC 7.5 10^3/uL (4.0-10.0) 10/22/21 05:18 RBC 3.69 10^6/uL (4.1-5.3) L 10/22/21 05:18 Hgb 11.1 g/dL (11.5-15.3) L 10/22/21 05:18 Hct 35.2 % (37.0-47.0) L 10/22/21 05:18 MCV 95.4 fl (81-99) 10/22/21 05:18 MCH 30.1 pg (28.0-34.0) 10/22/21 05:18 MCHC 31.5 g/dL (30.0-36.0) 10/22/21 05:18 RDW 15.6 % (12.1-15.1) H 10/22/21 05:18 Plt Count 271 10^3/cmm (130-400) 10/22/21 05:18 MPV 10.9 fL (7.4-10.4) H 10/22/21 05:18 Neut % (Auto) 71.0 % 10/22/21 05:18 Lymph % (Auto) 20.1 % 10/22/21 05:18 [place] % (Auto) 8.5 % 10/22/21 05:18 Eos % (Auto) 0.0 % 10/22/21 05:18 Baso % (Auto) 0.1 % 10/22/21 05:18 Neut # (Auto) 5.33 10^3/uL (1.8-7.7) 10/22/21 05:18 Lymph # (Auto) 1.5 10^3/uL (0.8-4.8) 10/22/21 05:18 [place] # (Auto) 0.6 10^3/uL (0.2-0.9) 10/22/21 05:18 Eos # (Auto) 0.0 10^3/uL (0.0-0.8) 10/22/21 05:18 Baso # (Auto) 0.0 10^3/uL (0.0-0.1) 10/22/21 05:18 Nucleated RBC % (auto) 0 % 10/22/21 05:18 Nucleated RBCs # 0.0 /100WBC 10/22/21 05:18 Sodium 134 mmol/L (136-145) L 10/22/21 05:18 Potassium 4.8 mmol/L (3.5-5.1) 10/22/21 05:18 Chloride 92 mmol/L (98-107) L 10/22/21 05:18 Carbon Dioxide 30 mmol/L (22-29) H 10/22/21 05:18 Anion Gap 16.8 (5-19) 10/22/21 05:18 BUN 32 mg/dL (6-20) H 10/22/21 05:18 Creatinine 4.4 mg/dL (0.5-0.9) H 10/22/21 05:18 GFR Calculation 10.4 mL/min (90-130) L 10/22/21 05:18 Glucose 284 mg/dL (65-115) H 10/22/21 05:18 Calculated Osmolality 295 mOsm/kg (285-295) 10/22/21 05:18 Calcium 8.5 mg/dL (8.5-10.5) 10/22/21 05:18 Discharge Plan Discharge Patient Disposition: Admitted As Inpatient Admit Provider: Basil Siddiqui Clinical Impression: CVA (cerebral vascular accident), Insulin dependent type 2 diabetes mellitus, ESRD (end stage renal disease), Hypothyroidism, Hyperlipidemia, MCI (mild cognitive impairment) Condition: Stable Coding Level of Care Code ED Internet Network Specialist for Danial Fwd Exam Comprehensive NIH stroke score NIHSS Level Of Consciousness - 1a: 1 Level Of Consciousness Questions - 1b: One Correct Level Of Consciousness Commands - 1c: One Correct Best Gaze - 2: Normal Visual [place]camo - 3: No Visual Loss Facial Palsy - 4: Partial Paralysis Motor Arm Right - 5: No Drift Motor Arm Left - 5: Drift Motor Leg Right - 6: No Drift Motor Leg Left - 6: Drift Limb Ataxia - 7: Present In One Limb Sensory - 8: Mild To Moderate Loss Best Language - 9: No Aphasia Dysarthia - 10: Mild/Moderate Dysarthia Extinction And Inattention - 11: 1 Score Total Score: 11
[2021-10-22] MEDS: diphenhydrAMINE 50 mg/mL SDV 1mL IVP (06:08)
[2021-10-22] MEDS: morphine 4 mg/mL SDV 1 mL IVP (06:08)
[2021-10-22] MEDS: haloperidol inj 5 mg/mL INJ 1 mL IVP (06:09)
--- NOTE | 2021-10-22 07:14 | PC.NURSE ---
WHILE AT BEDSIDE PT IS IN NAD. PT PROVIDED WITH ICE PACK. PT DOES NOT VERBALIZE ANY FURTHER NEEDS.
[2021-10-22 07:15] LABS: Basophils % 0.1 %; Hematocrit 35.2 % (37.0-47.0); Hemoglobin 11.1 g/dL (11.5-15.3); Lymphocytes # 1.5 10^3/uL (0.8-4.8); Lymphocytes % 20.1 %; Mean Corpuscular HGB Conc 31.5 g/dL (30.0-36.0); Mean Corpuscular Hemoglobin 30.1 pg (28.0-34.0); Mean Corpuscular Volume 95.4 fl (81-99); Mean Platelet Volume 10.9 fL (7.4-10.4); Monocytes # 0.6 10^3/uL (0.2-0.9); Monocytes % 8.5 %; Neutrophils # 5.33 10^3/uL (1.8-7.7); Nucleated Red Blood Cells % 0 %; Platelet Count 271 10^3/cmm (130-400); Red Blood Count 3.69 10^6/uL (4.1-5.3); Red Cell Distribution Width 15.6 % (12.1-15.1); White Blood Count 7.5 10^3/uL (4.0-10.0)
[2021-10-22 07:29] LABS: Anion Gap 16.8 (5-19); Blood Urea Nitrogen 32 mg/dL (6-20); Calcium 8.5 mg/dL (8.5-10.5); Carbon Dioxide 30 mmol/L (22-29); Chloride 92 mmol/L (98-107); Glomerular Filtration Rate 10.4 mL/min (90-130); Glucose 284 mg/dL (65-115); Osmolality Calculated 295 mOsm/kg (285-295); Potassium 4.8 mmol/L (3.5-5.1); Sodium 134 mmol/L (136-145)
--- NOTE | 2021-10-22 08:34 | PC.NURSE ---
dr. schuler at bedside speaking with pt and family. pt assisted with positioning in bed per family request.
--- NOTE | 2021-10-22 08:37 | CT_ITS ---
WS: [id number] CT ANGIOGRAM CEREBRAL AND CAROTID ARTERIES HISTORY: fall TECHNIQUE: CT angiogram is performed of the carotid and cerebral arteries. During arterial injection imaging is obtained from the skull vertex to the aortic arch in 1.25 mm imaging. Coronal and sagittal reformats are submitted. Additional multi planar reformats of the carotid and cerebral arteries are submitted, MIP imaging also reviewed. NASCET criteria utilized. All CT scans at [facility] e at least one of these dose optimization techniques: automated exposure control; mA and/or kV adjust ment per patient size (includes targeted exams where dose is matched to clinical indication); or iter ative reconstruction. CONTRAST: Visipaque 320; 95 mL IV. DLP: 536.94 mGy.cm COMPARISON: None available. On the postcontrast injection there is a large area of decreased attenuation which is not present on the prior CT involving the posterior RIGHT parietal lobe which could be an ongoing acute infarct. Carotid Angiogram: Right carotid: Common carotid artery: Arises normally from the innominate artery. No significant plaque or stenosis. Internal carotid artery: Small amount of plaque at the bifurcation. No high-grade stenosis. External carotid artery: Patent. Left carotid: Common carotid artery: Arises normally from the aorta. No significant plaque or stenosis. Internal carotid artery: Small noncalcified plaque at the bifurcation with no high-grade stenosis. External carotid artery: Patent. Right vertebral artery: Small caliber but patent. Left vertebral artery: Unremarkable. Arises normally from the subclavian artery. Subclavian arteries: No stenosis or significant abnormality. Upper thorax: Hazy opacifications in the upper lung villarreal is probably due to breathing and supine po sitioning with dependent changes. Thyroid gland: Normal. Osseous structures: Anterior cervical fusion from C5 to C7. CEREBRAL ANGIOGRAM: Intracranial vertebral arteries: Mild plaque in the supraclinoid carotid arteries. Stenosis less than 50%. Basilar artery: No significant stenosis or occlusion. No aneurysm. Intracranial Internal carotid arteries: Demonstrates no significant stenosis or plaque. Middle cerebral arteries: Patent bilaterally. The distal M2 segment on the RIGHT is smaller caliber t hen the LEFT. Focal thrombus in the distal RIGHT M2 segment is identified. In review there is acute t hrombus noted in the sylvian fissure on the prior noncontrast head CT obtained earlier today. Anterior cerebral arteries and ACOM: Normal. Posterior cerebral arteries and PCOM's: Normal. Dural venous sinuses are normally enhancing. Mastoid air cells: Normal. Paranasal sinuses: Large soft tissue hematoma with contusion centered over the LEFT zygomatic arch an d extending over the orbit and globe. Calvarium: Normal. CT/CT angio headneck* [id number] IMPRESSION: 1. Minimal atherosclerotic disease within the cervical carotid arteries. Less than 50% stenosis. 2. Small caliber distal RIGHT M2 segment with acute thrombus. 3. Mild atherosclerotic disease supraclinoid carotid arteries. 4. Development of an acute infarct in the posterior division of the RIGHT midd le cerebral artery. Notified Jd Mejía DO at 10/22/2021 10:24 AM.
--- NOTE | 2021-10-22 10:25 | PC.NURSE ---
WHILE AT BEDSIDE PT IS RESTING QUIETLY IN BED WITH EYES CLOSED SUPINE. PT IS IN NAD. PT FAMILY PROVIDED WITH WATER AND SNACK.
--- NOTE | 2021-10-22 12:02 | PM.HP ---
Providers/Chief Complaint Admitting Physician: Basil Siddiqui MD Primary Care Provider: Vivienne Schulz MD Chief Complaint: FALL History of Present Illness Elvi Kaiser is a 55 year old female department early this morning after a fall. During her evaluation it was noted she had a left facial droop, and was neglecting her left side. She was subsequently worked up for CVA, and found all caliber distal right M2 segment thrombus. In the emergency department she was evaluated by ER physician who discussed her case with neurology locally as well as at [facility]. She is not a candidate for tPA, nor candidate for thrombectomy. She obtained an 11 on her NIHSS. Patient herself reports she has no headache, shortness of breath currently. She denies any significant pain. She reports no nausea or vomiting. Neck pain. Family who is present with her report that she had a normal day yesterday and has not been ill in the last several weeks. This morning upon arising, she fell forward. Current medicine review does not delineate any antiplatelet medication. Review of Systems General: Reports: 10 or more systems reviewed and unremarkable except in HPI and below Const: Denies: fever(s) or chills Eyes: Denies: change in vision ENMT: Denies: throat pain Card: Denies: chest pain Resp: Denies: dyspnea GI: Denies: abdominal pain, hematochezia or melena : Denies: flank pain Musc: Denies: neck pain Skin/Breast: Reports: skin tenderness (contusion left cheek) Neuro: Reports: weakness in extremities, sensory changes and difficulty walking; Denies: headache(s) or dizziness Psych: Denies: anxiety or depression Eduardo/Lymph: Denies: easy bruising All/Imm: Denies: urticaria Medications/Allergies Home Medications Medication Instructions Recorded Confirmed Last Taken Type atorvastatin 80 mg tablet 80 mg PO DAILY 05/01/19 09/24/21 05/20/20 History escitalopram oxalate 20 mg tablet 40 mg PO DAILY@0800 tab 05/01/19 09/24/21 05/20/20 History (Lexapro) insulin aspart U-100 100 unit/mL 15 unit SUBCUT TID@0800,1200,2000 05/01/19 09/24/21 05/20/20 History (3 mL) subcutaneous pen (Novolog Flexpen U-100 Insulin aspart) insulin degludec 100 unit/mL 60 unit SUBCUT DAILY@0800 ml 05/01/19 09/24/21 05/20/20 History subcutaneous solution (Tresiba U-100 Insulin) vit B,C-folic ac 800 mcg-zinc 12.5 1 tab PO DAILY@199905/01/19 09/24/21 05/19/20 History mg-selen-D3 2,000 unit-vit E tablet (RenaPlex-D) carbidopa 25 mg-levodopa 100 mg See Rx Instructions .ROUTE .COMPLEX 05/20/20 09/24/21 Unknown History tablet cetirizine 10 mg tablet (Zyrtec) 10 mg PO DAILY@79905/20/20 09/24/21 05/20/20 History diphenhydramine HCl 25 mg capsule 25 mg PO BEDTIME@199905/20/20 09/24/21 05/19/20 History (Benadryl) ferric citrate 210 mg iron tablet 630 mg PO TID@05/20/20 09/24/21 05/20/20 History (Auryxia) pramipexole 0.125 mg tablet 0.125 mg PO DAILY@79905/20/20 09/24/21 Unknown History (Mirapex) ropinirole 0.5 mg tablet 0.5 mg PO DAILY@199906/21/20 09/24/21 Unknown History blood-glucose meter,continuous #1 ea 09/24/21 09/24/21 Unknown Rx (Dexcom G6 Security Installer) blood-glucose sensor (Dexcom G6 #9 ea 09/24/21 09/24/21 Unknown Rx Sensor) blood-glucose transmitter (Dexcom #3 ea 09/24/21 09/24/21 Unknown Rx G6 Transmitter) Allergies Allergy/AdvReac Type Severity Reaction Status Date / Time acetaminophen [From Tylenol] Allergy ALGY-Hives Verified 10/22/21 11:08 codeine Allergy ALGY-Hives Verified 10/22/21 11:08 fentanyl Allergy ALGY-Hives Verified 10/22/21 11:08 gabapentin [From Neurontin] Allergy ALGY-Hives Verified 10/22/21 11:08 hydrocodone Allergy ALGY-Hives Verified 10/22/21 11:08 influenza virus vaccine qs Allergy ALGY-Hives Verified 10/22/21 11:08 [id number](65 years up) [From [employer] (65y up)(PF)] Iodinated Contrast Media Allergy ALGY-Anaphy Verified 10/22/21 11:08 laxis lisinopril Allergy ADR-Cough Verified 10/22/21 11:08 NSAIDS (Non-Steroidal Allergy ALGY-Hives Verified 10/22/21 11:08 Anti-Inflamma oxycodone Allergy ALGY-Hives Verified 10/22/21 11:08 promethazine Allergy Unknown Verified 10/22/21 11:08 tramadol Allergy ALGY-Hives Verified 10/22/21 11:08 vaccine adjuvant emulsion Allergy ALGY-Hives Verified 10/22/21 11:08 [id number].[email or web address] [From [employer] (65y up)(PF)] PFSH Acute PFSH: Medical History Anxiety Chronic back pain COVID-19 De Quervain's tenosynovitis Diabetes ESRD (end stage renal disease) Hyperlipidemia Hypertension Hypothyroidism Insulin dependent type 2 diabetes mellitus Surgical History H/O section H/O dilation and curettage H/O neck surgery fusion History of appendectomy History of carpal tunnel repair History of temporal artery biopsy Hx of cholecystectomy S/P arteriovenous (AV) fistula creation S/P dialysis catheter insertion Removed 07/14/20 Status post colonoscopy Family History Father Bleeding disorder Other Diabetes Heart disease Hyperlipidemia Hypertension Kidney problem Migraines Stroke Denies family history of Anesthesia complication Social History Smoking and tobacco status: never smoked Second hand smoke exposure: No Alcohol intake: never Adopted: No Caregiver/support person: Yes Lives independently: Yes Household members: family Housing: House Marital status: Single Highest education level completed: High School Graduate service: No Current occupational status: disabled Current occupational exposures/hazards: No Pets and animals: Yes Pets & animals: dog(s) History of recent travel: No Sexually active: No Current gender identity: Female Sabina/Roman Catholic: Christianity Special sabina needs: No Agree to transfusion: No Financial difficulty paying for basics: Decline to Answer Vitals/I&O/Wt Last Vital Signs Temp 98.2 F 10/22/21 05:17 Pulse 87 10/22/21 09:00 Resp 16 10/22/21 06:08 BP 140/76 10/22/21 09:00 Pulse Ox 98 10/22/21 09:00 Weight last 48 hrs Weight 88.6 kg Physical Exam Narrative: Apparent distress, conversant but somewhat delayed response. HEENT: Right pupil round and reactive. Left difficult to see secondary to edema and hematoma left cheek area. Oropharynx clear Neck is supple obese nontender. No lymphadenopathy or thyromegaly Cardiovascular regular rate and rhythm without murmur, no S3 or S4 Lungs clear to auscultation bilaterally. No wheezes or crackles. Abdomen is soft, positive bowel sounds. Obese. No obvious organomegaly is deferred Extremities no cyanosis clubbing or edema, cap refill brisk AV fistula right upper extremity with thrill and bruit. Skin no rash Neurologic: Left facial droop apparent. Neglect noted on left side. Weakness, hemiplegia noted on the left side but still at least 5/6 strength. Response is slow. Agree with ER physician score of 11 on NIHSS Data : 10/22/21 05:18 10/22/21 05:18 Other Labs: CTA demonstrate less than 50% stenosis within the cervical carotid arteries. A small distal right M2 segment acute thrombus is noted. Acute infarct is noted to be developing right middle cerebral artery territory. Noncontrast head CT itself is negative Cervical spine CT no fracture CT demonstrates no orbital injury. An EKG Chest x-ray was not done but at this point I do not see a reason to have this performed Calcium 8.5 Recent TSH was normal A&P Assessment and plan (1) CVA (cerebral vascular accident): CVA, right MCA territory, acute Occluded small distal right M2 thrombus noted on CTA. Not candidate for tPA, or thrombectomy. This was reviewed with neurology here as well as [place] Initiate Plavix. Patient reports aspirin is an allergy for her which causes significant swelling. High-dose statin Dysphagia screening Early intervention with all therapies Will likely require jail facility placement N.p.o. most of today, with her acute stroke and need for dysphagia screening and sleepiness will provide with saline at 50 cc an hour. Status: Acute (2) Contusion of face: Significant contusion to the left face No fracture noted on multiple CTs Monitor for resolution No evidence of orbital injury on CT Consistent with closed head injury Status: Acute (3) ESRD (end stage renal disease): Receives dialysis 3 times weekly Will consult nephrology for dialysis in house No need for urgent dialysis today. Normal dialysis days are Tuesday and Tuesday Give IV fluids, but low level secondary to patient Status: Acute (4) Diabetes type 2, uncontrolled: History of type 2 diabetes, controlled with insulin Sliding scale insulin Status: Acute Plan Multiple other medical problems as listed in past medical history Full code currently Lovenox for DVT prophylaxis Attestations Medical Necessity Statement*: Will need greater than 2 midnight stay for evaluation and treatment of acute CVA Coding Level of Care Code Acute Hand Driller for Danial Barfield Diagnoses CVA (cerebral vascular accident) I63.9 Contusion of face S00.83XA ESRD (end stage renal disease) N18.6 Diabetes type 2, uncontrolled
--- NOTE | 2021-10-22 12:26 | ECG_ITS ---
[facility] Test Date: 2021-10-22 Pat Name: Elvi Kaiser Department: Room: 269 Gender: Female Physician Gynecologist: : 1965 Requested By: Basil Bunn Order Number: [id number] Doug MD: Merced Woods M.D. Measurements Intervals [place] Rate: 91 P: 51 [place]: 178 QRS: -45 QRSD: 107 T: 84 QT: 433 QTc: 533 Interpretive Statements SINUS RHYTHM LEFT ANTERIOR FASCICULAR BLOCK [QRS AXIS <= -45, QR IN I, RS IN II] NONSPECIFIC ST & T-WAVE ABNORMALITY PROLONGED QT INTERVAL Compared to ECG 06/23/2020 05:59:19 Left anterior fascicular block now present T-wave abnormality now present Prolonged QT interval now present Left ventricular hypertrophy no longer present ST (T wave) deviation no longer present Myocardial infarct finding no longer present Electronically Signed On 10-22-2021 22:16:18 CDT by Merced Woods M.D. [id number]
--- NOTE | 2021-10-22 13:19 | PC.NURSE ---
REPORT GIVEN TO BRICE URBINA
[2021-10-22 13:24] LABS: Thyroid Stimulating Hormone 2.04 uIU/mL (0.27-4.20)
[2021-10-22 14:48] LABS: Magnesium 1.8 mg/dL (1.7-2.3)
[2021-10-22] MEDS: sodium chloride 0.9% 1,000 ML 50 ML IV (16:26)
--- NOTE | 2021-10-22 16:48 | PM.CONSULT ---
Providers/Reason For Consult Consulting Physician/Specialty*: Simi Kunz DO, telenephrology Reason for Consult*: ESRD Attending Physician: Basil Siddiqui MD Primary Care Provider: Vivienne Schulz MD History of Present Illness History of Present Illness Elvi Kaiser is a 55 year old female admitted after fall. + trauma to face, + right MCA CVA. ESRD on HD x 4 years. 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 RUE AVF + thrill per RN, no signs of infection. Dialyzes at [facility], 3h, 3x weekly. Medications/Allergies Home Medications Medication Instructions Recorded Confirmed Last Taken Type atorvastatin 80 mg tablet 80 mg PO DAILY 05/01/19 10/22/21 10/22/21 History escitalopram oxalate 20 mg tablet 40 mg PO DAILY@0800 tab 05/01/19 10/22/21 10/22/21 History (Lexapro) insulin aspart U-100 100 unit/mL 15 unit SUBCUT TID@0800,1200,199905/01/19 10/22/21 10/22/21 History (3 mL) subcutaneous pen (Novolog Flexpen U-100 Insulin aspart) insulin degludec 100 unit/mL 60 unit SUBCUT DAILY@0800 ml 05/01/19 10/22/21 10/22/21 History subcutaneous solution (Tresiba U-100 Insulin) vit B,C-folic ac 800 mcg-zinc 12.5 1 tab PO DAILY@199905/01/19 10/22/21 10/21/21 History mg-selen-D3 2,000 unit-vit E tablet (RenaPlex-D) carbidopa 25 mg-levodopa 100 mg See Rx Instructions .ROUTE .COMPLEX 05/20/20 10/22/21 10/21/21 History tablet cetirizine 10 mg tablet (Zyrtec) 10 mg PO DAILY@0800 05/20/20 10/22/21 05/20/20 History diphenhydramine HCl 25 mg capsule 25 mg PO BEDTIME@199905/20/20 10/22/21 10/21/21 History (Benadryl) ferric citrate 210 mg iron tablet 630 mg PO TID@08,12,05/20/20 10/22/21 10/22/21 History (Auryxia) pramipexole 0.125 mg tablet 0.125 mg PO DAILY@0800 05/20/20 10/22/21 10/22/21 History (Mirapex) ropinirole 0.5 mg tablet 0.5 mg PO DAILY@199906/21/20 10/22/21 10/21/21 History blood-glucose meter,continuous #1 ea 09/24/21 10/22/21 Unknown Rx (Dexcom G6 Pantograph Machine Set Up Operator) blood-glucose sensor (Dexcom G6 #9 ea 09/24/21 10/22/21 Unknown Rx Sensor) blood-glucose transmitter (Dexcom #3 ea 09/24/21 10/22/21 Unknown Rx G6 Transmitter) Allergies Allergy/AdvReac Type Severity Reaction Status Date / Time acetaminophen [From Tylenol] Allergy ALGY-Hives Verified 10/22/21 11:08 codeine Allergy ALGY-Hives Verified 10/22/21 11:08 fentanyl Allergy ALGY-Hives Verified 10/22/21 11:08 gabapentin [From Neurontin] Allergy ALGY-Hives Verified 10/22/21 11:08 hydrocodone Allergy ALGY-Hives Verified 10/22/21 11:08 influenza virus vaccine qs Allergy ALGY-Hives Verified 10/22/21 11:08 (65 years up) [From [email or web address] (65y up)(PF)] Iodinated Contrast Media Allergy ALGY-Anaphy Verified 10/22/21 11:08 laxis kiwi Allergy ALGY-Anaphy Verified 10/22/21 14:30 laxis lisinopril Allergy ADR-Cough Verified 10/22/21 11:08 NSAIDS (Non-Steroidal Allergy ALGY-Hives Verified 10/22/21 11:08 Anti-Inflamma oxycodone Allergy ALGY-Hives Verified 10/22/21 11:08 pineapple Allergy ALGY-Anaphy Verified 10/22/21 14:30 laxis promethazine Allergy Unknown Verified 10/22/21 11:08 strawberry Allergy ALGY-Anaphy Verified 10/22/21 14:30 laxis tramadol Allergy ALGY-Hives Verified 10/22/21 11:08 vaccine adjuvant emulsion Allergy ALGY-Hives Verified 10/22/21 11:08 MF59C.1 [From [email or web address] (65y up)(PF)] Current Medications Generic Name Dose Route Start Last Admin Trade Name Parvin PRN Reason Stop Dose Admin Sodium Chloride 1,000 mls @ 50 mls/hr 10/22/21 14:27 10/22/21 16:26 Sodium Chloride 0.9% IV 50 mls/hr .Q20H JAMIE Administration PFSH Acute PFSH: Medical History Anxiety Chronic back pain COVID-19 De Quervain's tenosynovitis Diabetes ESRD (end stage renal disease) Hyperlipidemia Hypertension Hypothyroidism Insulin dependent type 2 diabetes mellitus Surgical History H/O section H/O dilation and curettage H/O neck surgery fusion History of appendectomy History of carpal tunnel repair History of temporal artery biopsy Hx of cholecystectomy S/P arteriovenous (AV) fistula creation S/P dialysis catheter insertion Removed 07/14/20 Status post colonoscopy Family History Father Bleeding disorder Other Diabetes Heart disease Hyperlipidemia Hypertension Kidney problem Migraines Stroke Denies family history of Anesthesia complication Social History Smoking and tobacco status: never smoked Second hand smoke exposure: No Alcohol intake: never Adopted: No Caregiver/support person: Yes Lives independently: Yes Household members: family Housing: House Marital status: Single Highest education level completed: High School Graduate service: No Current occupational status: disabled Current occupational exposures/hazards: No Pets and animals: Yes Pets & animals: dog(s) History of recent travel: No Sexually active: No Current gender identity: Female Sabina/Protestant: Zoroastrianism Special sabina needs: No Agree to transfusion: No Financial difficulty paying for basics: Decline to Answer Vitals/I&O/Wt Last Vital Signs Temp 97.7 F 10/22/21 14:45 Pulse 98 10/22/21 15:45 Resp 20 H 10/22/21 15:45 BP 182/114 10/22/21 15:45 Pulse Ox 95 10/22/21 15:45 Weight last 48 hrs Weight 90.265 kg Weight 88.6 kg Physical Exam Const: COMMON NORMALS: no acute distress and alert HENMT: OTHER: large swelling and bruising left eye and cheek Extremity: OTHER: no edema Neuro: SENSORIUM/ORIENTATION: Yes alert Urinary Catheter Management: Woodard: Cath Placed During This Visit: yes Urinary Catheter Date of Insertion: 10/22/21 Urinary Catheter Time of Insertion: 12:08 Data : 10/22/21 05:18 10/22/21 05:18 A&P Assessment and plan (1) ESRD (end stage renal disease): Status: Acute Plan 1. ESRD 2. Hypertension 3. Diabetes 4. New CVA Plan: Continue HD MWF. 3h, 1500 ml fluid removal, no heparin tomorrow. No IVs, BPs, blood draws right UE Consult Attestations Medical Necessity Statement: see above Time Spent in Patient Care: 16 - 35 minutes Coding Level of Care Code Acute Warp Tension Tester for Danial Barfield Diagnoses ESRD (end stage renal disease) N18.6
[2021-10-22 17:08] LABS: Glucose Point of Care 467 mg/dL (70-110)
[2021-10-22] MEDS: enoxaparin 40 mg/0.4 mL Syringe SUBCUT (17:25)
[2021-10-22] MEDS: insulin lispro 100 unit/1 mL SUBCUT ×2 (17:26→21:07)
[2021-10-22 20:51] LABS: Glucose Point of Care 361 mg/dL (70-110)
[2021-10-22 20:53] LABS: Glucose Point of Care 379 mg/dL (70-110)
[2021-10-22] MEDS: ropinirole 0.25 mg Tablet 0.5 MG PO (20:55)
[2021-10-23] VITALS (14 sets, daily range): BP systolic 127–158; BP diastolic 61–92; PULSE 100–130; RESP 16–23; TEMP 36.2–37.4; O2SAT 91–100
--- NOTE | 2021-10-23 06:00 | USCV_ITS ---
Elvi Kaiser Age: 55 Gender: F : 1965 Exam Date: 10/23/2021 01:25 Ordering Phys: Basil Siddiqui MD Technologist: CASSANDRA [place] [facility] [place]: CVA. BP: 157 / 73 HR: 102 Rhythm: Atrial fibrillation Technical Quality: Adequate MEASUREMENTS (Male / Female) Normal Values 2D ECHO LV Diastolic Diameter PLAX 5.0 cm 4.2 - 5.9 / 3.9 - 5.3 cm LV Systolic Diameter PLAX 3.9 cm IVS Diastolic Thickness 1.3 cm 0.6 - 1.0 / 0.6 - 0.9 cm IVS Systolic Thickness 1.7 cm LVPW Diastolic Thickness 0.8 cm 0.6 - 1.0 / 0.6 - 0.9 cm LVPW Systolic Thickness 0.9 cm LVOT Diameter 2.0 cm LV Ejection Fraction 2D Teich 48.8 % LV Ejection Fraction MOD 2C 39.9 % LV Ejection Fraction 2C AL 41.7 % LA Diameter 3.5 cm LA Width 5.3 cm LA Height 5.4 cm RA Width 2.4 cm RA Height 3.3 cm Aorta at Sinotubular Diameter 2.9 cm IVC Diameter 1.7 cm M-MODE Aortic Annulus Diameter 2.8 cm LA Ao Ratio MM 1.3 MV E Point Septal Separation 0.5 cm DOPPLER AV Peak Velocity 106.0 cm/s LVOT Peak Velocity 83.0 cm/s AV Area Cont Eq vti 2.6 cm squared AV Area Cont Eq pk 2.4 cm squared MV Peak Velocity 144.0 cm/s MV Area PHT 5.0 cm squared MV E' Velocity 79.0 cm/s Mitral E to MV E' Ratio 16.2 Mitral E to LV E' Lateral Ratio 16.6 Mitral E to LV E' Septal Ratio 16.0 TR Peak Velocity 280.0 cm/s TR Peak Gradient 31.4 mmHg TV Peak E Velocity 71.0 cm/s Right Atrial Pressure 10.0 mmHg Pulmonary Artery Systolic Pressu 41.4 mmHg PV Peak Velocity 70.0 cm/s RV Acceleration Time 0.1 s RV Ejection Time 0.4 s RV AcT/ET 0.2 FINDINGS Left Ventricle Diffuse hypokinesia of the left ventricle with an ejection fraction of 42%.Grade III/IV diastolic dysfunction (restrictive filling pattern), severely elevated filling pressures. Right Ventricle The right ventricle is normal in size and function. Right Atrium The right atrium is normal in size. Left Atrium Mildly increased left atrial size. Mitral Valve Thickened mitral valve. Moderate mitral annular calcification. Aortic Valve No gross abnormalities noted Tricuspid Valve Tcnd-yd-edzrgdlg tricuspid valve regurgitation. Pulmonic Valve Pulmonic valve not well visualized. Pericardium Normal pericardium without effusion. Aorta Normal ascending aorta dimension. IVC Normal IVC dimension with <50% respiratory change of the inferior vena cava. CONCLUSIONS Diffuse hypokinesia of the left ventricle with an ejection fraction of 42%.Grade III/IV diastolic dysfunction (restrictive filling pattern), severely elevated filling pressures. Mildly increased left atrial size. Thickened mitral valve. Moderate mitral annular calcification. Uvtu-px-gnagsevx tricuspid valve regurgitation. Estimated pulmonary artery peak systolic pressure 41 mmHg There is no pericardial effusion. Possible large left-sided pleural effusion compared to the previous study from 06/23/2020, there is a drop in the LV ejection fraction and development of pleural effusion . Dr Merced Woods MD FAC (Electronically Signed) Final Date: 23 October 2021 09:55 S
[2021-10-23 06:12] LABS: Chol HDL Ratio 2.72 mg/dL (0.0-4.40); Cholesterol 147 mg/dL (0-200); HDL Cholesterol 54 mg/dL (60-100); LDL Cholesterol Calculated 61 mg/dL (50-129); LDL HDL Ratio 1.13 RATIO (0.00-3.22); Triglycerides 158 mg/dL (0-150)
[2021-10-23 06:16] LABS: Estmated Average Glucose 192; Hemoglobin A1C 8.3 % (4.0-6.0)
[2021-10-23 06:19] LABS: Hepatitis B Surface Antigen Non-Reactive (Nonreactive); Hepatitis C Virus Antibody Non-Reactive (Nonreactive)
[2021-10-23 06:22] LABS: Glucose Point of Care 253 mg/dL (70-110)
[2021-10-23 07:34] LABS: Basophils % 0.2 %; Hematocrit 38.1 % (37.0-47.0); Hemoglobin 11.8 g/dL (11.5-15.3); Lymphocytes # 0.9 10^3/uL (0.8-4.8); Lymphocytes % 5.3 %; Mean Corpuscular Hemoglobin 29.7 pg (28.0-34.0); Mean Platelet Volume 10.9 fL (7.4-10.4); Monocytes # 0.9 10^3/uL (0.2-0.9); Monocytes % 5.1 %; Neutrophils # 15.32 10^3/uL (1.8-7.7); Neutrophils % 89.1 %; Nucleated Red Blood Cells % 0 %; Platelet Count 339 10^3/cmm (130-400); Red Blood Count 3.97 10^6/uL (4.1-5.3); Red Cell Distribution Width 15.9 % (12.1-15.1); White Blood Count 17.2 10^3/uL (4.0-10.0)
[2021-10-23 07:47] LABS: Blood Urea Nitrogen 51 mg/dL (6-20); Calcium 9.2 mg/dL (8.5-10.5); Carbon Dioxide 22 mmol/L (22-29); Chloride 87 mmol/L (98-107); Glomerular Filtration Rate 7.3 mL/min (90-130); Glucose 236 mg/dL (65-115); Osmolality Calculated 291 mOsm/kg (285-295); Sodium 130 mmol/L (136-145)
[2021-10-23 08:04] LABS: Anion Gap 25.9 (5-19); Potassium 4.9 mmol/L (3.5-5.1)
--- NOTE | 2021-10-23 08:07 | PM.PN ---
Subjective Subjective: Elvi alert today, did not answer questions. She has some facial pain, but not severe. No chest discomfort. Medications: Reviewed: Yes Vitals/I&O/Wt Last Vital Signs Temp 97.9 F 10/23/21 07:53 Pulse 117 H 10/23/21 07:53 Resp 19 H 10/23/21 07:53 BP 144/63 10/23/21 07:53 Pulse Ox 100 10/23/21 07:53 10/22/21 10/23/21 10/23/21 22:59 06:59 14:59 Intake Total 340 / 340 2550 / 2890 Output Total 300 / 300 Balance 340 / 340 2250 / 2590 Weight last 48 hrs Weight 91.671 kg Weight 90.265 kg Weight 93.259 kg Weight 88.6 kg Physical Exam Narrative: Apparent distress, conversant, quicker to respond than yesterday. HEENT: Right pupil round and reactive. Left difficult to see secondary to edema and hematoma left cheek area. Edema is improved. Oropharynx clear Neck is supple obese nontender. No lymphadenopathy or thyromegaly Cardiovascular regular rate and rhythm without murmur, no S3 or S4 Lungs clear to auscultation bilaterally. No wheezes or crackles. Abdomen is soft, positive bowel sounds. Obese. No obvious organomegaly sánchez noted Extremities no cyanosis clubbing or edema, cap refill brisk Skin no rash Neurologic: Left facial droop less apparent. Neglect noted on left side. Weakness, hemiplegia noted on the left side but still at least 5/6 strength. Urinary Catheter Management: Sánchez: Cath Placed During This Visit: yes Reason for Continuing Indwelling Catheter: Other Urinary Catheter Date of Insertion: 10/22/21 Urinary Catheter Time of Insertion: 12:08 Data : 10/23/21 05:31 10/23/21 05:31 A&P Assessment and plan (1) CVA (cerebral vascular accident): CVA, right MCA territory, acute Occluded small distal right M2 thrombus noted on CTA. Not candidate for tPA, or thrombectomy. This was reviewed with neurology here as well as Atiya Continue Plavix. Patient reports aspirin is an allergy for her which causes significant swelling. High-dose statin Dysphagia screening appreciated, soft mechanical diet currently Early intervention with all therapies Will likely require intermediate facility placement Allow permissive HTN Echocardiogram completed, awaiting reading. Status: Acute (2) Contusion of face: Significant contusion to the left face No fracture noted on multiple CTs Monitor for resolution No evidence of orbital injury on CT Consistent with closed head injury Status: Acute (3) ESRD (end stage renal disease): Receives dialysis 3 times weekly Appreciate nephrology consult. dialysis expected today. Status: Acute (4) Diabetes type 2, uncontrolled: History of type 2 diabetes, controlled with insulin Sliding scale insulin Initiate Lantus 20 units daily as po intake may be unreliable initially Status: Acute Plan Prolonged QT interval. Lexapro dose lowered. Repeat EKG pending for today Multiple other medical problems as listed in past medical history Full code currently Lovenox for DVT prophylaxis Attestations Medical Necessity Statement*: Needs continued hospital stay for post CVA evaluation, therapy, assess stability. Coding Level of Care Code Acute Optical Mechanic for andrew Barfield Diagnoses CVA (cerebral vascular accident) I63.9 Contusion of face S00.83XA ESRD (end stage renal disease) N18.6 Diabetes type 2, uncontrolled
--- NOTE | 2021-10-23 08:16 | ECG_ITS ---
[facility] Test Date: 2021-10-23 Pat Name: Elvi Kaiser Department: Room: 269 Gender: Female Shear Setter: : 1965 Requested By: Basil Bunn Order Number: [id number] Doug MD: Merced Woods M.D. Measurements Intervals [place] Rate: 122 P: 42 [place]: 135 QRS: -44 QRSD: 119 T: 91 QT: 347 QTc: 495 Interpretive Statements SINUS TACHYCARDIA LEFT AXIS DEVIATION [QRS AXIS < -30] LOW QRS VOLTAGE IN PRECORDIAL LEADS [QRS DEFLECTION < 1.0 mV IN CHEST LEADS] PATTERN CONSISTENT WITH PULMONARY DISEASE MODERATE INTRAVENTRICULAR CONDUCTION DELAY [110+ ms QRS DURATION] MINIMAL ST DEPRESSION [0.025+ mV ST DEPRESSION] ABNORMAL QRS-T ANGLE [QRS-T AXIS DIFFERENCE > 60] Compared to ECG 10/22/2021 13:58:05.Left-axis deviation now present Low QRS voltage now present.Intraventricular conduction delay now present ST (T wave) deviation now present.Sinus rhythm no longer present Left anterior fascicular block no longer present.T-wave abnormality no longer present.Prolonged QT interval no longer present Electronically Signed On 10-23-2021 17:18:31 CDT by Merced Woods M.D. [id number]
[2021-10-23] MEDS: insulin lispro 100 unit/1 mL SUBCUT ×3 (08:52→23:29)
[2021-10-23] MEDS: pramipexole 0.25 mg Tablet 0.125 MG PO (08:53)
[2021-10-23] MEDS: atorvastatin 40 mg Tablet 80 MG PO (08:54)
[2021-10-23] MEDS: escitalopram 10 mg Tablet PO (08:54)
[2021-10-23] MEDS: clopidogrel 75 mg Tablet PO (08:54)
--- NOTE | 2021-10-23 10:53 | XR_ITS ---
WS: [id number] Portable AP upright chest, 10/23/2021 Clinical Data: possible left pleural effusion Comparison: Portable chest, 07/20/2021. Findings: The heart is enlarged and the pulmonary vascularity is increased. There may be a small left effusion. No pneumonia is seen. The aortic arch shows calcification. The patient has had an anterior cervical disc fusion. Monitor leads are on the chest wall. XR/XR chest 1V portable [id number] Impression: 1. Cardiomegaly with pulmonary vascular congestion and small left effusion. 2. Atherosclerosis.
[2021-10-23 11:32] LABS: Glucose Point of Care 321 mg/dL (70-110)
[2021-10-23 11:41] LABS: Troponin T (5th) Once 209 ng/L (0-10)
[2021-10-23] MEDS: insulin glargine 100 units/1 mL 20 UNIT SUBCUT (12:08)
[2021-10-23 13:04] LABS: Troponin T (5th) Once 216 ng/L (0-10)
--- NOTE | 2021-10-23 13:10 | P.PN_ITS ---
Subjective Subjective: + face pain Vitals/I&O/Wt Last Vital Signs Temp 99.3 F 10/23/21 11:13 Pulse 122 H 10/23/21 11:13 Resp 18 10/23/21 11:13 BP 158/79 10/23/21 11:13 Pulse Ox 100 10/23/21 11:13 10/22/21 10/23/21 10/23/21 22:59 06:59 14:59 Intake Total 340 / 340 2550 / 2890 240 / 240 Output Total 300 / 300 Balance 340 / 340 2250 / 2590 240 / 240 Weight last 48 hrs Weight 91.671 kg Weight 90.265 kg Weight 93.259 kg Weight 88.6 kg Physical Exam Urinary Catheter Management: Woodard: Cath Placed During This Visit: yes Reason for Continuing Indwelling Catheter: Other Urinary Catheter Date of Insertion: 10/22/21 Urinary Catheter Time of Insertion: 12:08 Data : 10/23/21 05:31 10/23/21 05:31 Other Labs: Ca 9.2 A&P Assessment and plan (1) ESRD (end stage renal disease): Status: Acute Plan Sen via telemedicine with assistance of RN at bedside 1. ESRD 2. Hypertension 3. Diabetes 4. New CVA Plan: Continue HD MWF. 3h, 1500 ml fluid removal, no heparin. No IVs, BPs, blood draws right UE. Emla cream to access pre HD. Attestations Medical Necessity Statement*: see above Time Spent in Patient Care: 16 - 35 minutes Coding Level of Care Code Acute Art Objects Salesperson for [facility] Diagnoses ESRD (end stage renal disease) N18.6
[2021-10-23] MEDS: LORazepam 0.5 mg Tablet 0.25 MG PO ×3 (14:25→22:16)
[2021-10-23 16:58] LABS: Glucose Point of Care 147 mg/dL (70-110)
--- NOTE | 2021-10-23 18:26 | PC.HD ---
Dr Siddiqui in during treatment, aware of tachycardia. Pt was medicated for anxiety during treatment, no pain medication ordered. Persistant cramping precluded reaching UF goal, Dr Kunz aware.
[2021-10-23] MEDS: heparin 5,000 unit/mL INJ 1 mL 5000 UNIT SUBCUT (20:28)
[2021-10-23] MEDS: ropinirole 0.25 mg Tablet 0.5 MG PO (20:28)
[2021-10-23] MEDS: metoprolol tartrate 25 mg Tablet 12.5 MG PO (20:28)
[2021-10-23 21:09] LABS: Glucose Point of Care 271 mg/dL (70-110)
[2021-10-23] MEDS: haloperidol inj 5 mg/mL INJ 1 mL 1 MG IM (23:28)
[2021-10-24] VITALS (12 sets, daily range): BP systolic 104–148; BP diastolic 60–76; PULSE 80–122; RESP 17–18; TEMP 36.3–36.8; O2SAT 93–98
[2021-10-24 05:33] LABS: Basophils % 0.2 %; Hematocrit 32.7 % (37.0-47.0); Hemoglobin 10.4 g/dL (11.5-15.3); Lymphocytes # 1.4 10^3/uL (0.8-4.8); Lymphocytes % 14.4 %; Mean Corpuscular HGB Conc 31.8 g/dL (30.0-36.0); Mean Corpuscular Hemoglobin 29.9 pg (28.0-34.0); Mean Platelet Volume 10.5 fL (7.4-10.4); Monocytes % 10.3 %; Neutrophils % 74.8 %; Nucleated Red Blood Cells % 0.2 %; Platelet Count 329 10^3/cmm (130-400); Red Blood Count 3.48 10^6/uL (4.1-5.3); Red Cell Distribution Width 16.4 % (12.1-15.1); White Blood Count 9.8 10^3/uL (4.0-10.0)
[2021-10-24 06:53] LABS: Glucose Point of Care 109 mg/dL (70-110)
--- NOTE | 2021-10-24 10:13 | PC.OT ---
ATTEMPTED TO SEE PT 2X; PT SLEEPING D/T ROUGH NIGHT; PT'S FAMILY PRESENT AND REQUESTS THAT THERAPY NOT WAKE HER; WILL SEE PT TOMORROW
[2021-10-24 11:16] LABS: Glucose Point of Care 205 mg/dL (70-110)
--- NOTE | 2021-10-24 11:54 | P.PN_ITS ---
Subjective Subjective: lethargic today after receiving haldol last evening sister at bedside, states Elvi wakes up and answers questions Vitals/I&O/Wt Last Vital Signs Temp 98.2 F 10/24/21 11:37 Pulse 86 10/24/21 11:37 Resp 18 10/24/21 11:37 BP 119/68 10/24/21 11:37 Pulse Ox 96 10/24/21 11:37 10/23/21 10/24/21 10/24/21 22:59 06:59 14:59 Intake Total 300 / 540 Output Total 1071 / 1071 300 / 1371 Balance -771 / -531 -300 / -831 Weight last 48 hrs Weight 90.6 kg Weight 91.671 kg Weight 90.265 kg Weight 93.259 kg Physical Exam Urinary Catheter Management: Woodard: Cath Placed During This Visit: yes Reason for Continuing Indwelling Catheter: Other Urinary Catheter Date of Insertion: 10/22/21 Urinary Catheter Time of Insertion: 12:08 Data : 10/24/21 05:12 10/23/21 05:31 A&P Assessment and plan (1) ESRD (end stage renal disease): Seen via telemedicine with assistance of RN at bedside 1. ESRD 2. Hypertension, well-controlled 3. Diabetes, blood sugars improved 4. New CVA 5. Mild hyponatremia. She did not tolerate fluid removal at dialysis yesterday due to cramping. Net UF 770 ml 6. Anemia. Hb decreased from admission. Check iron studies. Epogen at next dialysis Plan: Continue HD MWF. 3h, 1500 ml fluid removal, no heparin. No IVs, BPs, blood draws right UE. Emla cream to access pre HD. Status: Acute Attestations Medical Necessity Statement*: per primary service Time Spent in Patient Care: 16 - 35 minutes Coding Level of Care Code Acute Supervisor Paste Mixing for [facility] Fwd Diagnoses ESRD (end stage renal disease) N18.6
--- NOTE | 2021-10-24 12:56 | P.PN_ITS ---
Subjective Subjective: X-ray from yesterday showing vascular congestion with pleural effusion This morning patient was drowsy however verbally redirectable She was able to eat chocolate pudding Family is at the bedside We are looking into inpatient rehab placement, telemetry did not show any signs of atrial flutter or A. fib She has remained in sinus rhythm Her troponins were above 200 however repeat troponin trending down, she gets Tuesday dialysis Grade 3 diastolic function EF 42%, family is in agreement with outpatient cardiac work-up Family meeting at the bedside Vitals/I&O/Wt Last Vital Signs Temp 98.2 F 10/24/21 11:37 Pulse 86 10/24/21 11:37 Resp 18 10/24/21 11:37 BP 119/68 10/24/21 11:37 Pulse Ox 96 10/24/21 11:37 10/23/21 10/24/21 10/24/21 22:59 06:59 14:59 Intake Total 300 / 540 Output Total 1071 / 1071 300 / 1371 Balance -771 / -531 -300 / -831 Weight last 48 hrs Weight 90.6 kg Weight 91.671 kg Weight 90.265 kg Weight 93.259 kg Physical Exam Narrative: Patient has a big hematoma around her left eye which as per the family is improving Patient is able to open her right eye Oriented to herself She is able to tell me that her family is at the bedside She was endorsing feeling hungry, she was able to eat chocolate pudding Abdomen is soft She has fistula in right arm Bilateral extremity trace edema Neuro exam is limited as patient was drowsy this morning Currently saturating well on room air No audible stridor or wheezing S1, S2 clinical signs of fluid overload Urinary Catheter Management: Woodard: Cath Placed During This Visit: yes Reason for Continuing Indwelling Catheter: Other Urinary Catheter Date of Insertion: 10/22/21 Urinary Catheter Time of Insertion: 12:08 Data : 10/24/21 05:12 10/23/21 05:31 A&P Assessment and plan (1) ESRD (end stage renal disease): Status: Acute (2) Contusion of face: Status: Acute (3) CVA (cerebral vascular accident): Status: Acute (4) Long-term insulin use: Status: Acute (5) Diabetes type 2, uncontrolled: Status: Acute (6) Appetite loss: Status: Acute (7) MCI (mild cognitive impairment): Status: Acute (8) Hypothyroidism: Status: Acute (9) Insulin dependent type 2 diabetes mellitus: Status: Acute (10) Acute right MCA stroke: Status: Acute Plan Acute right MCA stroke Thrombus present However I do not see any signs of atrial flutter or fibrillation on telemetry She has remained hemodynamically stable No carotid disease my suspicion is high for abnormal heart rhythm Discussed with the family, they do not want any anticoagulation as she is at risk of falls, as per her son she felt 6-7 times last year Currently she is on dysphagia diet Continue Plavix and atorvastatin she has allergies to aspirin Reduce ejection fraction, troponin above 200, ejection fraction reduction is new, EKG does have minimal ST depression in inferior lateral leads, I will be discussed with the family if they want to pursue coronary angiography during this visit versus outpatient Patient is full code Awaiting inpatient rehab placement, as per the housing case manager inpatient rehab facility is being sought Poorly controlled type 2 diabetes hemoglobin A1c is 8.3: Continue insulin sliding scale Triglyceride 158 Hyponatremia secondary to hyperglycemia Strict glucose control with recent stroke is important She has been afebrile Contusion of face As per the family it is improving Currently on Plavix End-stage renal disease Tuesday dialysis, Attestations Medical Necessity Statement*: Awaiting placement Time Spent in Patient Care: 35 Coding Level of Care Code Acute Retail Cashier Associate for [facility] Fwd Diagnoses ESRD (end stage renal disease) N18.6 Contusion of face S00.83XA CVA (cerebral vascular accident) I63.9 Long-term insulin use Z79.4 Diabetes type 2, uncontrolled Appetite loss R63.0 MCI (mild cognitive impairment) G31.84 Hypothyroidism E03.9 Insulin dependent type 2 diabetes mellitus E11.9; Z79.4 Acute right MCA stroke I63.511
[2021-10-24] MEDS: heparin 5,000 unit/mL INJ 1 mL 5000 UNIT SUBCUT ×2 (13:05→20:50)
[2021-10-24] MEDS: pramipexole 0.25 mg Tablet 0.125 MG PO (13:07)
[2021-10-24] MEDS: clopidogrel 75 mg Tablet PO (13:08)
[2021-10-24] MEDS: escitalopram 10 mg Tablet PO (13:08)
[2021-10-24] MEDS: atorvastatin 40 mg Tablet 80 MG PO (13:08)
[2021-10-24] MEDS: metoprolol tartrate 25 mg Tablet 12.5 MG PO ×2 (13:08→20:49)
[2021-10-24] MEDS: insulin lispro 100 unit/1 mL SUBCUT ×3 (13:09→21:20)
[2021-10-24 16:45] LABS: Glucose Point of Care 199 mg/dL (70-110)
[2021-10-24] MEDS: LORazepam 0.5 mg Tablet 0.25 MG PO (18:35)
[2021-10-24 19:55] LABS: Anion Gap 15.9 (5-19); Blood Urea Nitrogen 7 mg/dL (6-20); Calcium 8.3 mg/dL (8.5-10.5); Carbon Dioxide 25 mmol/L (22-29); Chloride 94 mmol/L (98-107); Glomerular Filtration Rate 127.6 mL/min (90-130); Glucose 120 mg/dL (65-115); Osmolality Calculated 271 mOsm/kg (285-295); Potassium 3.9 mmol/L (3.5-5.1); Sodium 131 mmol/L (136-145)
[2021-10-24] MEDS: ropinirole 0.25 mg Tablet 0.5 MG PO (20:49)
[2021-10-24 21:09] LABS: Glucose Point of Care 147 mg/dL (70-110)
[2021-10-25] VITALS (8 sets, daily range): BP systolic 101–154; BP diastolic 71–96; PULSE 77–115; RESP 16–18; TEMP 36.2–36.7; O2SAT 91–100
[2021-10-25] MEDS: LORazepam 0.5 mg Tablet 0.25 MG PO ×2 (02:15→21:03)
[2021-10-25 05:21] LABS: Basophils % 0.1 %; Hematocrit 30.2 % (37.0-47.0); Hemoglobin 9.7 g/dL (11.5-15.3); Lymphocytes # 1.4 10^3/uL (0.8-4.8); Lymphocytes % 16.4 %; Mean Corpuscular HGB Conc 32.1 g/dL (30.0-36.0); Mean Corpuscular Hemoglobin 30.4 pg (28.0-34.0); Mean Corpuscular Volume 94.7 fl (81-99); Mean Platelet Volume 11.1 fL (7.4-10.4); Monocytes # 0.7 10^3/uL (0.2-0.9); Monocytes % 7.8 %; Neutrophils % 75.3 %; Nucleated Red Blood Cells % 0 %; Platelet Count 274 10^3/cmm (130-400); Red Blood Count 3.19 10^6/uL (4.1-5.3); Red Cell Distribution Width 16.5 % (12.1-15.1); White Blood Count 8.5 10^3/uL (4.0-10.0)
[2021-10-25 05:48] LABS: Alanine Aminotransferase 14 U/L (0-33); Albumin Level 2.9 g/dL (3.5-5.2); Alkaline Phosphatase 83 IU/L (35-105); Blood Urea Nitrogen 39 mg/dL (6-20); Calcium 8.6 mg/dL (8.5-10.5); Carbon Dioxide 28 mmol/L (22-29); Chloride 93 mmol/L (98-107); Globulin 3.6 g/dL (1.3-4.6); Glucose 166 mg/dL (65-115); Iron 41 ug/dL (37-145); Osmolality Calculated 293 mOsm/kg (285-295); Phosphorus 5.2 mg/dL (2.5-4.5); Sodium 135 mmol/L (136-145); Total Bilirubin 0.3 mg/dL (0.15-1.2); Total Protein 6.5 g/dL (6.6-8.7)
[2021-10-25 06:05] LABS: Anion Gap 18.9 (5-19); Aspartate Amino Transferase 25 U/L (0-32); Percent Saturation 27.8 % (20-50); Potassium 4.9 mmol/L (3.5-5.1); Total Iron Binding Capacity 147 mcg/dl; Unsaturated Iron Binding 106 ug/dL (112-347)
[2021-10-25 06:08] LABS: Ferritin 2159 ng/mL (15-150); Troponin T (5th) Once 219 ng/L (0-10)
[2021-10-25 07:01] LABS: Glucose Point of Care 162 mg/dL (70-110)
[2021-10-25] MEDS: insulin lispro 100 unit/1 mL SUBCUT ×2 (07:55→22:07)
[2021-10-25] MEDS: heparin 5,000 unit/mL INJ 1 mL 5000 UNIT SUBCUT ×2 (07:55→21:05)
[2021-10-25] MEDS: pramipexole 0.25 mg Tablet 0.125 MG PO (07:56)
[2021-10-25] MEDS: atorvastatin 40 mg Tablet 80 MG PO (07:59)
[2021-10-25] MEDS: metoprolol tartrate 25 mg Tablet 12.5 MG PO ×2 (07:59→21:04)
[2021-10-25] MEDS: clopidogrel 75 mg Tablet PO (07:59)
[2021-10-25] MEDS: escitalopram 10 mg Tablet PO (07:59)
[2021-10-25] MEDS: insulin glargine 100 units/1 mL 25 UNIT SUBCUT (07:59)
[2021-10-25 11:17] LABS: Glucose Point of Care 140 mg/dL (70-110)
--- NOTE | 2021-10-25 11:33 | XRR_ITS ---
PROCEDURE INFORMATION: Exam: XR Left Foot Exam date and time: 10/25/2021 4:22 PM Age: 55 years old Clinical indication: Pain; Foot; Left; Additional info: Foot pain, bruising TECHNIQUE: Imaging protocol: Radiologic exam of the Left foot. Views: 3 or more views. COMPARISON: No relevant prior studies available. FINDINGS: Bones/joints: Bones are diffusely osteopenic. There are comminuted mildly displaced fractures of the distal 2nd through 4th metatarsal metaphyses. Joint alignment is normal. Soft tissues: Vascular calcification is present. Visible soft tissues are unremarkable. XR/XR foot LT min 3V* [id number] IMPRESSION: Comminuted and mildly displaced fractures of the 2nd through 4th distal metatarsal metaphyses.
--- NOTE | 2021-10-25 11:55 | PM.PN ---
Subjective Subjective: This morning patient was much more awake and alert She has ability to lift her arms in the air without any difficulty however left hand gas plant repairer is poor She is able to lift her legs bilaterally in the air for about 5 seconds Use normal saline to remove the crusting of left eye, she is endorsing poor vision of left eye, she able to count fingers correctly 1 feet away from her nose however she is not able to tell me time of the clock which is about 4 feet away Family at the bedside I did discuss with them the release of troponin and echo report The request to talk with the senior policy advisor Patient is tolerating her dysphagia diet No active aspiration She is currently doing well on current dysphagia diet, remove nasal cannula, wean oxygen to room air Afebrile Permissive hypertension Vitals/I&O/Wt Last Vital Signs Temp 97.1 F L 10/25/21 08:00 Pulse 77 10/25/21 08:00 Resp 16 10/25/21 08:00 BP 154/96 10/25/21 08:00 Pulse Ox 93 10/25/21 08:00 10/24/21 10/25/21 10/25/21 22:59 06:59 14:59 Intake Total 120 / 120 480 / 600 120 / 120 Output Total 300 / 300 200 / 500 Balance -180 / -180 280 / 100 120 / 120 Weight last 48 hrs Weight 90.6 kg Physical Exam Narrative: Patient is able to follow commands She has blurry vision of left eye Conjunctival hemorrhage noted however no acute worsening Left hand gas plant repairer is poor otherwise she has good strength of upper and lower extremity Able to tolerate diet No aspiration Abdomen soft S1, S2 Fistula right arm She is complaining of pain in left ankle there is mild bruise on dorsal and plantar area Urinary Catheter Management: Woodard: Cath Placed During This Visit: yes Reason for Continuing Indwelling Catheter: Other Urinary Catheter Date of Insertion: 10/22/21 Urinary Catheter Time of Insertion: 12:08 Data : 10/25/21 04:12 10/25/21 04:12 A&P Assessment and plan (1) Acute right MCA stroke: Status: Acute (2) ESRD (end stage renal disease): Status: Acute (3) Contusion of face: Status: Acute (4) CVA (cerebral vascular accident): Status: Acute (5) Long-term insulin use: Status: Acute (6) ESRD (end stage renal disease): Status: Acute (7) Diabetes type 2, uncontrolled: Status: Acute (8) Appetite loss: Status: Acute (9) MCI (mild cognitive impairment): Status: Acute (10) Hypothyroidism: Status: Acute (11) Left ankle pain: Status: Acute Plan Acute thromboembolic stroke I have not seen atrial flutter or fibrillation on her telemetry Carotids are not showing significant stenosis Echo slightly reduced EF 42%, troponin above 200 Family requested to talk with her senior policy advisor Patient working with PT, ST Tolerating dysphagia diet No active aspiration Wean oxygen to room air She will need to see an gospel worker outpatient as well Currently we are in the process of finding a placement for her Family updated She is full code On dysphagia diet DVT prophylaxis End-stage renal disease dialysis Tuesday, fistula right arm Poorly controlled type 2 diabetes hemoglobin A1c 8.3, hyponatremia related to hyperglycemia: Improved Contusion on face without acute exacerbation hemoglobin 9.7 today Attestations Medical Necessity Statement*: Anticipating discharge next week Time Spent in Patient Care: 30 Coding Level of Care Code Acute Addiction Counselor for [facility] Diagnoses Acute right MCA stroke I63.511 ESRD (end stage renal disease) N18.6 Contusion of face S00.83XA CVA (cerebral vascular accident) I63.9 Long-term insulin use Z79.4 ESRD (end stage renal disease) N18.6 Diabetes type 2, uncontrolled Appetite loss R63.0 MCI (mild cognitive impairment) G31.84 Hypothyroidism E03.9 Left ankle pain M25.572
[2021-10-25 12:31] LABS: Uric Acid 5.7 mg/dL (2.4-5.7)
--- NOTE | 2021-10-25 12:59 | PC.SOCIAL ---
Pg 2 IMM. Explained to pt 's sister Pg 2 IMM. No questions voiced. Provided pt a copy. Initialed, dated, & timed a copy & placed in chart.
--- NOTE | 2021-10-25 13:40 | P.PN_ITS ---
Subjective Subjective: more alert today Vitals/I&O/Wt Last Vital Signs Temp 98.1 F 10/25/21 12:00 Pulse 95 10/25/21 12:00 Resp 18 10/25/21 12:00 BP 133/80 10/25/21 12:00 Pulse Ox 95 10/25/21 12:00 10/24/21 10/25/21 10/25/21 22:59 06:59 14:59 Intake Total 120 / 120 480 / 600 120 / 120 Output Total 300 / 300 200 / 500 Balance -180 / -180 280 / 100 120 / 120 Weight last 48 hrs Weight 90.6 kg Physical Exam Const: COMMON NORMALS: no acute distress and alert Eye: OTHER: large bruise and swelling left eye Extremity: NARRATIVE EXTREMITY EXAM: RUE AVG + thrill per RN Neuro: SENSORIUM/ORIENTATION: Yes alert Urinary Catheter Management: Woodard: Cath Placed During This Visit: yes Reason for Continuing Indwelling Catheter: Other Urinary Catheter Date of Insertion: 10/22/21 Urinary Catheter Time of Insertion: 12:08 Data : 10/25/21 04:12 10/25/21 04:12 A&P Assessment and plan (1) ESRD (end stage renal disease): Status: Acute Plan Seen via telemedicine with assistance of RN at bedside 1. ESRD 2. Hypertension, well-controlled 3. Diabetes, blood sugars improved 4. New CVA 5. Mild hyponatremia. resolved 6. Anemia. Iron replete. Epogen at next dialysis Plan: Continue HD MWF. 3h, 1000 ml fluid removal. No IVs, BPs, blood draws right UE. Emla cream to access pre HD. Attestations Medical Necessity Statement*: per primary service Time Spent in Patient Care: 16 - 35 minutes Coding Level of Care Code Acute Underwater Photographer for [facility] Fwd Diagnoses ESRD (end stage renal disease) N18.6
[2021-10-25 16:54] LABS: Glucose Point of Care 135 mg/dL (70-110)
--- NOTE | 2021-10-25 19:01 | PM.CONSULT ---
Providers/Reason For Consult Consulting Physician/Specialty*: Stoney Montoya MD/Cardiology Reason for Consult*: Stroke Requesting Physician: Dr Flanagan Attending Physician: Jigar Flanagan MD Primary Care Provider: Vivienne Schulz MD History of Present Illness History of Present Illness Elvi Kaiser is a 55 year old female who was admitted after a fall and was found to have a stroke and was found to have small caliber distal right M2 segment thrombus. Cardiology was consulted as he echo showed mildly reduced EF of 42% and her troponins were elevated. EKG does not show acute ischemic changes. She denies any chest pain currently. EKG showed normal sinus rhythm with no acute ST changes. Review of Systems General: Reports: 10 or more systems reviewed and unremarkable except in HPI and below Const: Denies: fever(s) or chills Eyes: Denies: change in vision ENMT: Denies: throat pain Card: Denies: chest pain Resp: Denies: dyspnea GI: Denies: abdominal pain, hematochezia or melena : Denies: flank pain Musc: Denies: neck pain Skin/Breast: Reports: skin tenderness (contusion left cheek) Neuro: Reports: weakness in extremities, sensory changes and difficulty walking; Denies: headache(s) or dizziness Psych: Denies: anxiety or depression Eduardo/Lymph: Denies: easy bruising All/Imm: Denies: urticaria Medications/Allergies Home Medications Medication Instructions Recorded Confirmed Last Taken Type atorvastatin 80 mg tablet 80 mg PO DAILY 05/01/19 10/22/21 10/22/21 History escitalopram oxalate 20 mg tablet 40 mg PO DAILY@0800 tab 05/01/19 10/22/21 10/22/21 History (Lexapro) insulin aspart U-100 100 unit/mL 15 unit SUBCUT TID@0800,1200,199905/01/19 10/22/21 10/22/21 History (3 mL) subcutaneous pen (Novolog Flexpen U-100 Insulin aspart) insulin degludec 100 unit/mL 60 unit SUBCUT DAILY@0800 ml 05/01/19 10/22/21 10/22/21 History subcutaneous solution (Tresiba U-100 Insulin) vit B,C-folic ac 800 mcg-zinc 12.5 1 tab PO DAILY@199905/01/19 10/22/2113/22 History mg-selen-D3 2,000 unit-vit E tablet (RenaPlex-D) carbidopa 25 mg-levodopa 100 mg See Rx Instructions .ROUTE .COMPLEX 05/20/20 10/22/21 10/21/21 History tablet cetirizine 10 mg tablet (Zyrtec) 10 mg PO DAILY@0805/20/20 10/22/21 05/20/20 History diphenhydramine HCl 25 mg capsule 25 mg PO BEDTIME@199905/20/20 10/22/21 10/21/21 History (Benadryl) ferric citrate 210 mg iron tablet 630 mg PO TID@05/20/20 10/22/21 10/22/21 History (Auryxia) pramipexole 0.125 mg tablet 0.125 mg PO DAILY@0805/20/20 10/22/21 10/22/21 History (Mirapex) ropinirole 0.5 mg tablet 0.5 mg PO DAILY@199906/21/20 10/22/21 10/21/21 History blood-glucose meter,continuous #1 ea 09/24/21 10/22/21 Unknown Rx (Dexcom G6 Tree Specialist) blood-glucose sensor (Dexcom G6 #9 ea 09/24/21 10/22/21 Unknown Rx Sensor) blood-glucose transmitter (Dexcom #3 ea 09/24/21 10/22/21 Unknown Rx G6 Transmitter) Allergies Allergy/AdvReac Type Severity Reaction Status Date / Time acetaminophen [From Tylenol] Allergy ALGY-Hives Verified 10/22/21 11:08 codeine Allergy ALGY-Hives Verified 10/22/21 11:08 fentanyl Allergy ALGY-Hives Verified 10/22/21 11:08 gabapentin [From Neurontin] Allergy ALGY-Hives Verified 10/22/21 11:08 hydrocodone Allergy ALGY-Hives Verified 10/22/21 11:08 influenza virus vaccine qs Allergy ALGY-Hives Verified 10/22/21 11:08 (65 years up) [From Fluad Quad (65y up)(PF)] Iodinated Contrast Media Allergy ALGY-Anaphy Verified 10/22/21 11:08 laxis kiwi Allergy ALGY-Anaphy Verified 10/22/21 14:30 laxis lisinopril Allergy ADR-Cough Verified 10/22/21 11:08 NSAIDS (Non-Steroidal Allergy ALGY-Hives Verified 10/22/21 11:08 Anti-Inflamma oxycodone Allergy ALGY-Hives Verified 10/22/21 11:08 pineapple Allergy ALGY-Anaphy Verified 10/22/21 14:30 laxis promethazine Allergy Unknown Verified 10/22/21 11:08 strawberry Allergy ALGY-Anaphy Verified 10/22/21 14:30 laxis tramadol Allergy ALGY-Hives Verified 10/22/21 11:08 vaccine adjuvant emulsion Allergy ALGY-Hives Verified 10/22/21 11:08 [id number] [From [employer] (y up)(PF)] Current Medications Generic Name Dose Route Start Last Admin Trade Name Freq PRN Reason Stop Dose Admin Atorvastatin Calcium 80 mg 10/23/21 09:00 10/25/21 07:59 Atorvastatin 40 Mg Tablet PO 80 mg DAILY JAMIE Administration Clopidogrel Bisulfate 75 mg 10/23/21 09:00 10/25/21 07:59 Clopidogrel 75 Mg Tablet PO 75 mg DAILY JMAIE Administration Escitalopram Oxalate 10 mg 10/23/21 09:00 10/25/21 07:59 Escitalopram 10 Mg Tablet PO 10 mg DAILY JAMIE Administration Heparin Sodium (Porcine) 5,000 unit 10/23/21 20:00 10/25/21 07:55 Heparin 5,000 Unit/Ml Inj 1 Ml SUBCUT 5,000 unit Q12H JAMIE Administration Insulin Glargine 25 unit 10/25/21 09:00 10/25/21 07:59 Insulin Glargine 100 Units/1 Ml SUBCUT 25 unit DAILY JAMIE Administration Insulin Human Lispro 0 unit 10/22/21 18:00 10/25/21 17:24 Insulin Lispro 100 Unit/1 Ml SUBCUT Not Given WM&BEDTIME [facility] Protocol Lorazepam 0.25 mg 10/23/21 14:02 10/25/21 02:15 Lorazepam 0.5 Mg Tablet PO 0.25 mg TID PRN Administration ANXIETY Metoprolol Tartrate 12.5 mg 10/23/21 21:00 10/25/21 07:59 Metoprolol Tartrate 25 Mg Tablet PO 12.5 mg BID@0900,2100 [facility] Administration Non-Formulary Medication 630 mg 10/22/21 20:00 10/25/21 11:35 Ferric Citrate [Auryxia] PO Not Given TID@ [facility] Non-Formulary Medication 1 tab 10/22/21 20:00 10/24/21 20:55 Vit B,K-Dv-Jovs-Selen-Vit D3-E [Renaplex-D] PO Not Given DAILY@1999 [facility] Pramipexole Dihydrochloride 0.125 mg 10/23/21 08:00 10/25/21 07:56 Pramipexole 0.25 Mg Tablet PO 0.125 mg DAILY@08 [facility] Administration Ropinirole HCl 0.5 mg 10/22/21 20:00 10/24/21 20:49 Ropinirole 0.25 Mg Tablet PO 0.5 mg DAILY@1999 [facility] Administration PFSH Acute PFSH: Medical History Anxiety Chronic back pain COVID-19 De Quervain's tenosynovitis Diabetes ESRD (end stage renal disease) Hyperlipidemia Hypertension Hypothyroidism Insulin dependent type 2 diabetes mellitus Psychiatric care Surgical History H/O section H/O dilation and curettage H/O neck surgery fusion History of appendectomy History of carpal tunnel repair History of temporal artery biopsy Hx of cholecystectomy S/P arteriovenous (AV) fistula creation S/P dialysis catheter insertion Removed 07/14/20 Status post colonoscopy Family History Father Bleeding disorder Other Diabetes Heart disease Hyperlipidemia Hypertension Kidney problem Migraines Stroke Denies family history of Anesthesia complication Social History Smoking and tobacco status: never smoked Second hand smoke exposure: No Alcohol intake: never Adopted: No Caregiver/support person: Yes Lives independently: Yes Household members: family Housing: House Marital status: Single Highest education level completed: High School Graduate service: No Current occupational status: disabled Current occupational exposures/hazards: No Pets and animals: Yes Pets & animals: dog(s) History of recent travel: No Sexually active: No Current gender identity: Female Sabina/Sabianist: Hinduism Special sabina needs: No Agree to transfusion: No Financial difficulty paying for basics: Decline to Answer Vitals/I&O/Wt Last Vital Signs Temp 97.7 F 10/25/21 16:00 Pulse 100 10/25/21 16:00 Resp 16 10/25/21 16:00 BP 124/75 10/25/21 16:00 Pulse Ox 100 10/25/21 16:00 10/25/21 10/25/21 10/25/21 06:59 14:59 22:59 Intake Total 480 / 600 240 / 240 360 / 600 Output Total 200 / 500 100 / 100 Balance 280 / 100 240 / 240 260 / 500 Physical Exam Narrative: GENERAL: Patient is alert, awake and oriented x3. [] NECK: No jugular vein distension. [] HEENT: No cyanosis. No icterus. No pallor. Has hematoma on the face secondary to recent fall HEART: Regular S1 and S2. No murmur, rub or gallop. [] LUNGS: Clear to auscultate bilaterally. [] ABDOMEN: Soft, nontender and nondistended. Positive bowel sounds. No guarding, rebound or tenderness. [] CENTRAL NERVOUS SYSTEM: Grossly nonfocal. [] EXTREMITIES: Lower extremities with 1+ edema bilaterally. Urinary Catheter Management: Woodard: Cath Placed During This Visit: yes Reason for Continuing Indwelling Catheter: Other Urinary Catheter Date of Insertion: 10/22/21 Urinary Catheter Time of Insertion: 12:08 Data : 10/26/21 03:46 10/27/21 11:30 A&P Assessment and plan (1) ESRD (end stage renal disease): Status: Acute (2) CVA (cerebral vascular accident): Status: Acute (3) ESRD (end stage renal disease): Status: Acute (4) Insulin dependent type 2 diabetes mellitus: Status: Acute Plan Patient presented with stroke. She was not a tPA candidate. She will need ischemic work-up however will recommend outpatient. She is chest pain-free and no acute ST changes. Troponins were elevated however likely secondary to demand ischemia given no significant uptrend. LV systolic function is mildly reduced on echocardiogram. Will recommend event monitor at time of discharge as she was feeling palpitations at home before Thank you for involving us with care of this patient. We will continue to follow. Please call with questions. Consult Attestations Medical Necessity Statement: Care expected to cross 2 midnights. Coding Level of Care Code Acute Abrasive Grinder for [facility] Diagnoses ESRD (end stage renal disease) N18.6 CVA (cerebral vascular accident) I63.9 ESRD (end stage renal disease) N18.6 Insulin dependent type 2 diabetes mellitus E11.9; Z79.4
[2021-10-25] MEDS: ropinirole 0.25 mg Tablet 0.5 MG PO (21:04)
[2021-10-25 21:25] LABS: Glucose Point of Care 190 mg/dL (70-110)
[2021-10-26] VITALS (11 sets, daily range): BP systolic 119–157; BP diastolic 65–96; PULSE 77–108; RESP 16–18; TEMP 36.5–36.9; O2SAT 91–98
[2021-10-26 04:13] LABS: Hematocrit 32.5 % (37.0-47.0); Hemoglobin 10.2 g/dL (11.5-15.3)
[2021-10-26 04:43] LABS: Blood Urea Nitrogen 49 mg/dL (6-20); Calcium 8.9 mg/dL (8.5-10.5); Carbon Dioxide 26 mmol/L (22-29); Chloride 90 mmol/L (98-107); Glomerular Filtration Rate 6.8 mL/min (90-130); Glucose 87 mg/dL (65-115); Osmolality Calculated 286 mOsm/kg (285-295); Sodium 132 mmol/L (136-145)
[2021-10-26] MEDS: lidocaine-prilocaine cream 5 gm 1 APPLIC TOPICAL (08:50)
[2021-10-26] MEDS: pramipexole 0.25 mg Tablet 0.125 MG PO (08:51)
[2021-10-26] MEDS: metoprolol tartrate 25 mg Tablet 12.5 MG PO ×2 (08:51→20:43)
[2021-10-26] MEDS: atorvastatin 40 mg Tablet 80 MG PO (08:51)
[2021-10-26] MEDS: escitalopram 10 mg Tablet PO (08:52)
[2021-10-26] MEDS: insulin glargine 100 units/1 mL 25 UNIT SUBCUT (09:01)
[2021-10-26 09:05] LABS: Glucose Point of Care 97 mg/dL (70-110)
--- NOTE | 2021-10-26 09:22 | PC.OT ---
OT tx attempted. Pt currently in dialysis. Will attempt tx again later today if possible.
--- NOTE | 2021-10-26 09:22 | PM.PN ---
Subjective Subjective: seen during dialysis - reports face pain and foot pain Vitals/I&O/Wt Last Vital Signs Temp 98.5 F 10/26/21 07:27 Pulse 102 H 10/26/21 07:27 Resp 17 10/26/21 07:27 BP 152/80 10/26/21 07:27 Pulse Ox 93 10/26/21 07:27 10/25/21 10/26/21 10/26/21 22:59 06:59 14:59 Intake Total 480 / 720 480 / 480 Output Total 100 / 100 200 / 300 Balance 380 / 620 -200 / 420 480 / 480 Physical Exam Const: COMMON NORMALS: no acute distress and alert Extremity: NARRATIVE EXTREMITY EXAM: no edema OTHER: right UE AVF no signs of infection per RN Neuro: SENSORIUM/ORIENTATION: Yes alert Urinary Catheter Management: Woodard: Cath Placed During This Visit: yes Reason for Continuing Indwelling Catheter: Other Urinary Catheter Date of Insertion: 10/22/21 Urinary Catheter Time of Insertion: 12:08 Data : 10/26/21 03:46 10/26/21 03:46 A&P Assessment and plan (1) ESRD (end stage renal disease): Seen via telemedicine with assistance of RN at bedside 1. ESRD 2. Hypertension, well-controlled 3. Diabetes, blood sugars improved 4. New CVA 5. Mild hyponatremia. 6. Anemia. Iron replete. Epogen at next dialysis Plan: Continue HD MWF. 3h, 1000 ml fluid removal. No IVs, BPs, blood draws right UE. Emla cream to access pre HD. Status: Acute Attestations Medical Necessity Statement*: per primary service Time Spent in Patient Care: 16 - 35 minutes Coding Level of Care Code Acute Filling Machine Operator for [facility] Fwd Diagnoses ESRD (end stage renal disease) N18.6
--- NOTE | 2021-10-26 10:06 | PM.PN ---
Subjective Subjective: Dr. 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 Hematoma without acute exacerbation Hemoglobin stable at 10 Patient is much more interactive with me today as compared to yesterday Vitals/I&O/Wt Last Vital Signs Temp 98.2 F 10/26/21 09:49 Pulse 108 H 10/26/21 09:49 Resp 18 10/26/21 09:49 BP 149/96 10/26/21 09:49 Pulse Ox 93 10/26/21 07:27 10/25/21 10/26/21 10/26/21 22:59 06:59 14:59 Intake Total 480 / 720 480 / 480 Output Total 100 / 100 200 / 300 Balance 380 / 620 -200 / 420 480 / 480 Physical Exam Narrative: Patient was sitting on the bedside commode eating her breakfast She has significant left-sided neglect Left hand derrick barge operator is weak Left foot swelling has not gotten worse Good pulses of feet bilaterally No active complaints Currently saturating on room air No new focal deficit S1, S2 sinus tachycardia No audible stridor or wheezing Urinary Catheter Management: Woodard: Cath Placed During This Visit: yes Reason for Continuing Indwelling Catheter: Other Urinary Catheter Date of Insertion: 10/22/21 Urinary Catheter Time of Insertion: 12:08 Data : 10/26/21 03:46 10/26/21 03:46 A&P Assessment and plan (1) Left ankle pain: Status: Acute (2) Foot fracture, left: Status: Acute (3) Acute right MCA stroke: Status: Acute (4) ESRD (end stage renal disease): Status: Acute (5) Contusion of face: Status: Acute (6) CVA (cerebral vascular accident): Status: Acute (7) Long-term insulin use: Status: Acute (8) MCI (mild cognitive impairment): Status: Acute (9) Hyperlipidemia: Status: Acute (10) Hypothyroidism: Status: Acute (11) Insulin dependent type 2 diabetes mellitus: Status: Acute Plan Acute thromboembolic CVA Left-sided hemineglect Left hand weakness Patient working with PT on daily basis Has started to eat better Sinus tachycardia: Review of records revealed that she was sinus tachycardic on her previous admission as well and she was requiring metoprolol succinate 100 mg daily Her EF was 65% with this reduction of EF 40 to 42% this could be the compensatory mechanism of cardiovascular system for now versus metoprolol withdrawal I will start low-dose metoprolol for now Check D-dimer She will not be a good candidate for anticoagulating agent anyway Left foot fracture Dr. Adame consulted hold Plavix and heparin Appreciate cardiology and Dr. Prieto's recommendations End-stage renal disease AV fistula right arm, Tuesday, Patient is full code Currently on dysphagia diet Type II diabetic, I have increased the dose of Lantus to 25 units with her sliding scale which has improved her hyperglycemia Hyponatremia has improved as well professional services specialist: She has been declined at [facility] rehab, Attestations Medical Necessity Statement*: Continue medical management Time Spent in Patient Care: 30 Coding Level of Care Code Acute Manager Style for Chg Fwd Diagnoses Left ankle pain M25.572 Foot fracture, left S92.902A Acute right MCA stroke I63.511 ESRD (end stage renal disease) N18.6 Contusion of face S00.83XA CVA (cerebral vascular accident) I63.9 Long-term insulin use Z79.4 MCI (mild cognitive impairment) G31.84 Hyperlipidemia E78.5 Hypothyroidism E03.9 Insulin dependent type 2 diabetes mellitus E11.9; Z79.4
[2021-10-26 12:07] LABS: Glucose Point of Care 92 mg/dL (70-110)
--- NOTE | 2021-10-26 12:07 | XRR_ITS ---
PROCEDURE INFORMATION: Exam: XR Left Foot Exam date and time: 10/26/2021 6:08 PM Age: 56 years old Clinical indication: Condition or disease; Foot deformities; Other: Toes; Patient HX: Post reduction; Additional info: Met fractures 2-4 TECHNIQUE: Imaging protocol: Radiologic exam of the Left foot. Views: 1 or 2 views. COMPARISON: CR (LOW EXM, ) 10/25/2021 4:22 PM FINDINGS: Bones/joints: Comminuted mildly displaced fractures involving the distal aspect of the 2nd 3rd and 4th metatarsals. Third metatarsal appears improved in regards to alignment. XR/XR foot LT 2V [id number] IMPRESSION: Comminuted mildly displaced fractures involving the distal aspect of the 2nd 3rd and 4th metatarsals. Third metatarsal appears improved in regards to alignment.
[2021-10-26] MEDS: morphine IR 15 mg Tablet PO (12:16)
--- NOTE | 2021-10-26 12:26 | P.CONIM_ITS ---
Providers/Reason For Consult Consulting Physician/Specialty*: Eliot Adame D.P.M. Reason for Consult*: Left foot second, third and fourth metatarsal fractures Attending Physician: Jigar Flanagan MD Primary Care Provider: Vivienne Schulz MD History of Present Illness History of Present Illness Patient is a pleasant 56-year-old female admitted to the hospital service for CVA, she is insulin-dependent diabetic female with end-stage renal disease currently on dialysis. Patient has mild cognitive impairment. I was consulted for evaluation of metatarsal fractures second, third and fourth metatarsals of left foot. She sustained these fractures as result of a fall at home secondary to CVA. Her sister and parents are bedside with her. Review of Systems General: Reports: 10 or more systems reviewed and unremarkable except in HPI and below Const: Denies: fever(s) or chills Card: Denies: chest pain or palpitations Resp: Denies: productive cough GI: Denies: abdominal pain, nausea or vomiting : Denies: flank pain Musc: Reports: extremity swelling, joint pain, joint stiffness, limited range of motion and deformity Skin/Breast: Reports: nail changes and change in hair; Denies: rash or sores Neuro: Reports: numbness in extremities, sensory changes and difficulty walking Psych: Denies: suicidal ideation Eduardo/Lymph: Denies: easy bruising Medications/Allergies Home Medications Medication Instructions Recorded Confirmed Last Taken Type atorvastatin 80 mg tablet 80 mg PO DAILY 05/01/19 10/22/21 10/22/21 History escitalopram oxalate 20 mg tablet 40 mg PO DAILY@0800 tab 05/01/19 10/22/21 10/22/21 History (Lexapro) insulin aspart U-100 100 unit/mL 15 unit SUBCUT TID@0800,1200,199905/01/19 10/22/21 10/22/21 History (3 mL) subcutaneous pen (Novolog Flexpen U-100 Insulin aspart) insulin degludec 100 unit/mL 60 unit SUBCUT DAILY@0800 ml 05/01/19 10/22/21 10/22/21 History subcutaneous solution (Tresiba U-100 Insulin) vit B,C-folic ac 800 mcg-zinc 12.5 1 tab PO DAILY@199905/01/19 10/22/21 10/21/21 History mg-selen-D3 2,000 unit-vit E tablet (RenaPlex-D) carbidopa 25 mg-levodopa 100 mg See Rx Instructions .ROUTE .COMPLEX 05/20/20 10/22/21 10/21/21 History tablet cetirizine 10 mg tablet (Zyrtec) 10 mg PO DAILY@0800 05/20/20 10/22/21 05/20/20 History diphenhydramine HCl 25 mg capsule 25 mg PO BEDTIME@199905/20/20 10/22/21 10/21/21 History (Benadryl) ferric citrate 210 mg iron tablet 630 mg PO TID@,05/20/20 10/22/21 10/22/21 History (Auryxia) pramipexole 0.125 mg tablet 0.125 mg PO DAILY@79905/20/20 10/22/21 10/22/21 Hi story (Mirapex) ropinirole 0.5 mg tablet 0.5 mg PO DAILY@199906/21/20 10/22/21 10/21/21 History blood-glucose meter,continuous #1 ea 09/24/21 10/22/21 Unknown Rx (Dexcom G6 Senior Enterprise Architect) blood-glucose sensor (Dexcom G6 #9 ea 09/24/21 10/22/21 Unknown Rx Sensor) blood-glucose transmitter (Dexcom #3 ea 09/24/21 10/22/21 Unknown Rx G6 Transmitter) Allergies Allergy/AdvReac Type Severity Reaction Status Date / Time acetaminophen [From Tylenol] Allergy ALGY-Hives Verified 10/22/21 11:08 codeine Allergy ALGY-Hives Verified 10/22/21 11:08 fentanyl Allergy ALGY-Hives Verified 10/22/21 11:08 gabapentin [From Neurontin] Allergy ALGY-Hives Verified 10/22/21 11:08 hydrocodone Allergy ALGY-Hives Verified 10/22/21 11:08 influenza virus vaccine qs Allergy ALGY-Hives Verified 10/22/21 11:08 [id number](65 years up) [From Fluad Quad (65y up)(PF)] Iodinated Contrast Media Allergy ALGY-Anaphy Verified 10/22/21 11:08 laxis kiwi Allergy ALGY-Anaphy Verified 10/22/21 14:30 laxis lisinopril Allergy ADR-Cough Verified 10/22/21 11:08 NSAIDS (Non-Steroidal Allergy ALGY-Hives Verified 10/22/21 11:08 Anti-Inflamma oxycodone Allergy ALGY-Hives Verified 10/22/21 11:08 pineapple Allergy ALGY-Anaphy Verified 10/22/21 14:30 laxis promethazine Allergy Unknown Verified 10/22/21 11:08 strawberry Allergy ALGY-Anaphy Verified 10/22/21 14:30 laxis tramadol Allergy ALGY-Hives Verified 10/22/21 11:08 vaccine adjuvant emulsion Allergy ALGY-Hives Verified 10/22/21 11:08 [id number] [From SilkStart (65y up)(PF)] Current Medications Generic Name Dose Route Start Last Admin Trade Name Aidenq PRN Reason Stop Dose Admin Atorvastatin Calcium 80 mg 10/23/21 09:00 10/26/21 08:51 Atorvastatin 40 Mg Tablet PO 80 mg DAILY JAMIE Administration Clopidogrel Bisulfate 75 mg 10/23/21 09:00 10/25/21 07:59 Clopidogrel 75 Mg Tablet PO 75 mg DAILY JAMIE Administration Escitalopram Oxalate 10 mg 10/23/21 09:00 10/26/21 08:52 Escitalopram 10 Mg Tablet PO 10 mg DAILY JAMIE Administration Heparin Sodium (Porcine) 5,000 unit 10/23/21 20:00 10/25/21 21:05 Heparin 5,000 Unit/Ml Inj 1 Ml SUBCUT 5,000 unit Q12H JAMIE Administration Insulin Glargine 25 unit 10/25/21 09:00 10/26/21 09:01 Insulin Glargine 100 Units/1 Ml SUBCUT 25 unit DAILY JAMIE Administration Insulin Human Lispro 0 unit 10/22/21 18:00 10/26/21 12:15 Insulin Lispro 100 Unit/1 Ml SUBCUT Not Given WM&BEDTIME JAMIE Protocol Lorazepam 0.25 mg 10/23/21 14:02 10/25/21 21:03 Lorazepam 0.5 Mg Tablet PO 0.25 mg TID PRN Administration ANXIETY Metoprolol Tartrate 12.5 mg 10/23/21 21:00 10/26/21 08:51 Metoprolol Tartrate 25 Mg Tablet PO 12.5 mg BID@0900,2100 JAMIE Administration Morphine Sulfate 15 mg 10/26/21 11:57 10/26/21 12:16 Morphine Ir 15 Mg Tablet PO 15 mg Q4H PRN Administration SEVERE PAIN Non-Formulary Medication 630 mg 10/22/21 20:00 10/26/21 12:15 Ferric Citrate [Auryxia] PO Not Given TID@08,,20 [facility] Non-Formulary Medication 1 tab 10/22/21 20:00 10/25/21 21:05 Vit B,O-Xy-Gqoh-Selen-Vit D3-E [Renaplex-D] PO Not Given DAILY@1999 [facility] Pramipexole Dihydrochloride 0.125 mg 10/23/21 08:00 10/26/21 08:51 Pramipexole 0.25 Mg Tablet PO 0.125 mg DAILY@0800 [facility] Administration Ropinirole HCl 0.5 mg 10/22/21 20:00 10/25/21 21:04 Ropinirole 0.25 Mg Tablet PO 0.5 mg DAILY@1999 [facility] Administration PFSH Acute PFSH: Medical History (Updated 10/26/21 @ 18:43 by Eliot Adame DPM) Anxiety Chronic back pain COVID-19 De Quervain's tenosynovitis Diabetes ESRD (end stage renal disease) Hyperlipidemia Hypertension Hypothyroidism Insulin dependent type 2 diabetes mellitus Psychiatric care Surgical History H/O section H/O dilation and curettage H/O neck surgery fusion History of appendectomy History of carpal tunnel repair History of temporal artery biopsy Hx of cholecystectomy S/P arteriovenous (AV) fistula creation S/P dialysis catheter insertion Removed 07/14/20 Status post colonoscopy Family History Father Bleeding disorder Other Diabetes Heart disease Hyperlipidemia Hypertension Kidney problem Migraines Stroke Denies family history of Anesthesia complication Social History Smoking and tobacco status: never smoked Second hand smoke exposure: No Alcohol intake: never Adopted: No Caregiver/support person: Yes Lives independently: Yes Household members: family Housing: House Marital status: Single Highest education level completed: High School Graduate service: No Current occupational status: disabled Current occupational exposures/hazards: No Pets and animals: Yes Pets & animals: dog(s) History of recent travel: No Sexually active: No Current gender identity: Female Sabina/Anglican: Scientologist Special sabina needs: No Agree to transfusion: No Financial difficulty paying for basics: Decline to Answer Vitals/I&O/Wt Last Vital Signs Temp 98.2 F 10/26/21 09:49 Pulse 96 10/26/21 12:00 Resp 18 10/26/21 12:16 BP 148/85 10/26/21 12:00 Pulse Ox 96 10/26/21 08:00 10/25/21 10/26/21 10/26/21 22:59 06:59 14:59 Intake Total 480 / 720 480 / 480 Output Total 100 / 100 200 / 300 Balance 380 / 620 -200 / 420 480 / 480 Physical Exam Narrative: GENERAL: Patient is alert and oriented ?3 and in no acute distress. The following is a focused bilateral lower extremity exam. VASCULAR: Dorsalis pedis palpable bilaterally, posterior tibial arteries pa lpable. Capillary refill time less than 3 seconds to the distal hallux bilaterally. Calf is supple and nontender proximally and distally. Edema to the left forefoot. NEUROLOGICAL: Protective sensation diminished tested with [place] Angelika monofilament. DERMATOLOGICAL: No open wounds, no erythema. Ecchymosis to the left distal forefoot. No fracture blisters, no abrasions or lacerations. MUSCULOSKELETAL: Tenderness at left second, third and fourth metatarsals distally, no gross deformity or acute dislocation at the metatarsal phalangeal joints. Able to wiggle toes on command. No pain at the left ankle medially or laterally. No pain at the tarsometatarsal joint or Lisfranc complex. Urinary Catheter Management: Woodard: Cath Placed During This Visit: yes Reason for Continuing Indwelling Catheter: Other Urinary Catheter Date of Insertion: 10/22/21 Urinary Catheter Time of Insertion: 12:08 Data : 10/26/21 03:46 10/26/21 03:46 A&P Assessment and plan (1) Fracture of fourth metatarsal bone of left foot: Status: Acute Qualifiers: Encounter type: initial encounter Fracture type: closed Fracture alignment: displaced Qualified Code(s): S92.342A - Displaced fracture of fourth metatarsal bone, left foot, initial encounter for closed fracture (2) Fracture of third metatarsal bone of left foot: Status: Acute Qualifiers: Encounter type: initial encounter Fracture type: closed Fracture alignment: displaced Qualified Code(s): S92.332A - Displaced fracture of third metatarsal bone, left foot, initial encounter for closed fracture (3) Fracture of second metatarsal bone of left foot: Status: Acute Qualifiers: Encounter type: initial encounter Fracture type: closed Fracture alignment: displaced Qualified Code(s): S92.322A - Displaced fracture of second metatarsal bone, left foot, initial encounter for closed fracture (4) Left foot pain: Status: Acute Plan Patient is a pleasant 56-year-old female admitted to the hospital service for CVA, she is insulin-dependent diabetic female with end-stage renal disease currently on dialysis. Patient has mild cognitive impairment. I was consulted for evaluation of metatarsal fractures second, third and fourth metatarsals of left foot. She sustained these fractures as result of a fall at home secondary to CVA. Her sister and parents are bedside with her. After obtaining verbal and written consent hematoma block to the left second, third and fourth metatarsal fractures was performed utilizing a total of 9 cc of 1% lidocaine plain. After local anesthesia was established the left second, third and fourth toes were pulled under traction utilizing ligamentotaxis and manual manipulation and reverse mechanism of injury and attempt of closed reduction of the left second, third and fourth metatarsal fractures was performed with improved position on the second and fourth metatarsal fractures and some improvement in angulation and reestablishing the left third metatarsal out to length. Post reduction x-rays were taken and a cam boot for immobilization and offloading was applied to the left lower extremity to be utilized at all times when transferring or weightbearing. Recommending conservative management as patient is a high risk surgical candidate, has end- stage renal disease and is diabetic with peripheral neuropathy. Recommend follow-up outpatient for continued fracture care with plans for repeat x-rays in 2 weeks in podiatry clinic. Coding Level of Care Code Acute Insurance Sales Supervisor for Dan[facility] Diagnoses Fracture of fourth metatarsal bone of left foot S92.342A Encounter type: initial encounter Fracture type: closed Fracture alignment: displaced Fracture of third metatarsal bone of left foot S92.332A Encounter type: initial encounter Fracture type: closed Fracture alignment: displaced Fracture of second metatarsal bone of left foot S92.322A Encounter type: initial encounter Fracture type: closed Fracture alignment: displaced Left foot pain M79.672 Comment CPT code 70974 x3
[2021-10-26 17:01] LABS: Glucose Point of Care 109 mg/dL (70-110)
--- NOTE | 2021-10-26 18:26 | P.PN_ITS ---
Subjective Subjective: Patient is feeling better. no complaints of chest pain Vitals/I&O/Wt Last Vital Signs Temp 98.2 F 10/26/21 15:38 Pulse 93 10/26/21 15:38 Resp 16 10/26/21 15:38 BP 140/75 10/26/21 15:38 Pulse Ox 91 10/26/21 15:38 10/26/21 10/26/21 10/26/21 06:59 14:59 22:59 Intake Total 720 / 720 400 / 1120 Output Total 200 / 300 1300 / 1300 Balance -200 / 420 720 / 720 -900 / -180 Physical Exam Narrative: GENERAL: Patient is alert, awake and oriented x3. [] NECK: No jugular vein distension. [] HEENT: No cyanosis. No icterus. No pallor. Has hematoma on the face secondary to recent fall HEART: Regular S1 and S2. No murmur, rub or gallop. [] LUNGS: Clear to auscultate bilaterally. [] ABDOMEN: Soft, nontender and nondistended. Positive bowel sounds. No guarding, r ebound or tenderness. [] CENTRAL NERVOUS SYSTEM: Grossly nonfocal. [] EXTREMITIES: Lower extremities with 1+ edema bilaterally. Urinary Catheter Management: Woodard: Cath Placed During This Visit: yes Reason for Continuing Indwelling Catheter: Other Urinary Catheter Date of Insertion: 10/22/21 Urinary Catheter Time of Insertion: 12:08 Data : 10/29/21 05:41 10/29/21 05:41 A&P Assessment and plan (1) ESRD (end stage renal disease): Status: Acute (2) CVA (cerebral vascular accident): Status: Acute (3) ESRD (end stage renal disease): Status: Acute (4) Insulin dependent type 2 diabetes mellitus: Status: Acute Plan Patient presented with stroke. She was not a tPA candidate. Patient is currently stable. She is chest pain-free. Outpatient ischemic work- up recommended. LV systolic function was mildly reduced on echocardiogram. troponin elevation secondary to demand ischemia. Will recommend event monitor at time of discharge as she was feeling palpitations at home before Thank you for involving us with care of this patient. We will continue to follow. Please call with questions. Attestations Medical Necessity Statement*: Care expected to cross 2 midnights. Coding Level of Care Code Acute Supervisor Sanding for Chg Fwd Diagnoses ESRD (end stage renal disease) N18.6 CVA (cerebral vascular accident) I63.9 ESRD (end stage renal disease) N18.6 Insulin dependent type 2 diabetes mellitus E11.9; Z79.4
[2021-10-26 20:33] LABS: Glucose Point of Care 96 mg/dL (70-110)
[2021-10-26] MEDS: ropinirole 0.25 mg Tablet 0.5 MG PO (20:40)
[2021-10-26] MEDS: LORazepam 0.5 mg Tablet 0.25 MG PO (23:02)
[2021-10-27] VITALS (7 sets, daily range): BP systolic 105–142; BP diastolic 8–82; PULSE 63–91; RESP 16–18; TEMP 36.2–36.7; O2SAT 90–96
[2021-10-27 06:52] LABS: Glucose Point of Care 85 mg/dL (70-110)
--- NOTE | 2021-10-27 07:49 | P.PN_ITS ---
Subjective Subjective: c/o face pain, elg pain. had GD yesterday. no n/v/f/c/d Medications: Reviewed: Yes Medication Review Details: Current Medications Artificial Tears (Artificial Tears Op Soln 15 Ml Btl) 1 drop EYE-LEFT Q4H PRN PRN Reason: DRY EYE(S) Atorvastatin Calcium (Atorvastatin 40 Mg Tablet) 80 mg PO DAILY [facility] Last Admin: 10/26/21 08:51 Dose: 80 mg Documented by: Clopidogrel Bisulfate (Clopidogrel 75 Mg Tablet) 75 mg PO DAILY [facility] Last Admin: 10/25/21 07:59 Dose: 75 mg Documented by: Dextrose (Dextrose 50% Syringe 50 Ml) 25 ml IVP ONCE PRN; Protocol PRN Reason: hypoglycemia protocol Dextrose (Dextrose 50% Syringe 50 Ml) 50 ml IVP PRN PRN; Protocol PRN Reason: hypoglycemia protocol Escitalopram Oxalate (Escitalopram 10 Mg Tablet) 10 mg PO DAILY [facility] Last Admin: 10/26/21 08:52 Dose: 10 mg Documented by: Glucagon (Glucagon 1 Mg/Ml Inj 1 Ml) 1 mg IM ONCE PRN; Protocol PRN Reason: Adult Acute Hypoglycemia Prot. Heparin Sodium (Porcine) (Heparin 5,000 Unit/Ml Inj 1 Ml) 5,000 unit SUBCUT Q12H [facility] Last Admin: 10/25/21 21:05 Dose: 5,000 unit Documented by: Dextrose (D5w) 500 mls @ 100 mls/hr IV ONCE PRN; Protocol PRN Reason: Adult Acute Hypoglycemia Prot Sodium Chloride (Sodium Chloride 0.9%) 1,000 mls @ 0 mls/hr IV .Q0M PRN PRN Reason: hypotension or symptomatic Epoetin Bandar 5,000 unit/ N/A 0.25 mls @ 0 mls/hr IVP ONCE JAMIE Insulin Glargine (Insulin Glargine 100 Units/1 Ml) 25 unit SUBCUT DAILY [facility] Last Admin: 10/26/21 09:01 Dose: 25 unit Documented by: Insulin Human Lispro (Insulin Lispro 100 Unit/1 Ml) 0 unit SUBCUT WM&BEDTIME [facility]; Protocol Last Admin: 10/26/21 20:43 Dose: Not Given Documented by: Lorazepam (Lorazepam 0.5 Mg Tablet) 0.25 mg PO TID PRN PRN Reason: ANXIETY Last Admin: 10/26/21 23:02 Dose: 0.25 mg Documented by: Metoprolol Tartrate (Metoprolol Tartrate 25 Mg Tablet) 12.5 mg PO BID@0900,2100 [facility] Last Admin: 10/26/21 20:43 Dose: 12.5 mg Documented by: Morphine Sulfate (Morphine Ir 15 Mg Tablet) 15 mg PO Q4H PRN PRN Reason: SEVERE PAIN Last Admin: 10/26/21 12:16 Dose: 15 mg Documented by: Non-Formulary Medication (Ferric Citrate [Auryxia]) 630 mg PO TID@,, [facility] Last Admin: 10/26/21 20:40 Dose: Not Given Documented by: Non-Formulary Medication (Vit B,S-Nq-Dpkf-Selen-Vit D3-E [Renaplex-D]) 1 tab PO DAILY@1999 [facility] Last Admin: 10/26/21 20:40 Dose: Not Given Documented by: Pramipexole Dihydrochloride (Pramipexole 0.25 Mg Tablet) 0.125 mg PO DAILY@08 [facility] Last Admin: 10/26/21 08:51 Dose: 0.125 mg Documented by: Ropinirole HCl (Ropinirole 0.25 Mg Tablet) 0.5 mg PO DAILY@1999 [facility] Last Admin: 10/26/21 20:40 Dose: 0.5 mg Documented by: Vitals/I&O/Wt Last Vital Signs Temp 97.2 F L 10/27/21 04:00 Pulse 83 10/27/21 04:00 Resp 16 10/27/21 04:00 BP 122/8 10/27/21 04:00 Pulse Ox 90 10/27/21 04:00 10/26/21 10/27/21 10/27/21 22:59 06:59 14:59 Intake Total 1120 / 1840 Output Total 1500 / 1500 Balance -380 / 340 Physical Exam Narrative: obese, sitting up NARD VSS heent- ecchymoses on face neck supple lungs clear heart reg, no rub abd soft, nt, nd, + bs ext left ankle bandage/ boot. some edema RUE AVF w/ thrill and bruit neuro- a,a, o x 3, weak left side Urinary Catheter Management: Woodard: Cath Placed During This Visit: yes Reason for Continuing Indwelling Catheter: Other Urinary Catheter Date of Insertion: 10/22/21 Urinary Catheter Time of Insertion: 12:08 Data : 10/26/21 03:46 10/26/21 03:46 A&P Assessment and plan (1) ESRD (end stage renal disease): 56 yr old female 1. ESRD- HD MWF 2. Acute thromboembolic CVA 3. acute dec in EF from 64 to 41% 4. left foot fracture 5. IDDM 6. anemia- MAX iron sat 27% ferritin 2159 seen and examined w/ rN -telehealth visit time spent 30 min Status: Acute Plan see above Attestations Medical Necessity Statement*: per medicine. cva, low EF Time Spent in Patient Care: 16 - 35 minutes (>than 50% of time spent in counselling and/or direct pt care on unit) . Coding Level of Care Code Acute Aircraft Engine Technician for Danial Barfield Diagnoses ESRD (end stage renal disease) N18.6
[2021-10-27 07:57] LABS: Erythrocyte Sedimentation Rate 49 mm/hr (0-15)
[2021-10-27] MEDS: morphine IR 15 mg Tablet PO (08:27)
[2021-10-27] MEDS: escitalopram 10 mg Tablet PO (08:27)
[2021-10-27] MEDS: pramipexole 0.25 mg Tablet 0.125 MG PO (08:28)
[2021-10-27] MEDS: metoprolol tartrate 25 mg Tablet 12.5 MG PO ×2 (08:28→21:56)
[2021-10-27] MEDS: atorvastatin 40 mg Tablet 80 MG PO (08:28)
[2021-10-27] MEDS: insulin glargine 100 units/1 mL 25 UNIT SUBCUT (08:30)
--- NOTE | 2021-10-27 09:58 | P.PN_ITS ---
Subjective Subjective: Patient is doing well. Vitals/I&O/Wt Last Vital Signs Temp 98.1 F 10/27/21 08:00 Pulse 90 10/27/21 08:00 Resp 18 10/27/21 08:27 BP 142/82 10/27/21 08:00 Pulse Ox 95 10/27/21 08:27 10/26/21 10/27/21 10/27/21 22:59 06:59 14:59 Intake Total 1120 / 1840 360 / 360 Output Total 1500 / 1500 Balance -380 / 340 360 / 360 Physical Exam Narrative: GENERAL: Patient is alert, awake and oriented x3. [] NECK: No jugular vein distension. [] HEENT: No cyanosis. No icterus. No pallor. Has hematoma on the face secondary to recent fall HEART: Regular S1 and S2. No murmur, rub or gallop. [] LUNGS: Clear to auscultate bilaterally. [] ABDOMEN: Soft, nontender and nondistended. Positive bowel sounds. No guarding, rebound or tenderness. [] CENTRAL NERVOUS SYSTEM: Grossly nonfocal. [] EXTREMITIES: Lower extremities with 1+ edema bilaterally. Urinary Catheter Management: Woodard: Cath Placed During This Visit: yes Reason for Continuing Indwelling Catheter: Other Urinary Catheter Date of Insertion: 10/22/21 Urinary Catheter Time of Insertion: 12:08 Data : 10/29/21 05:41 10/29/21 05:41 A&P Assessment and plan (1) ESRD (end stage renal disease): Status: Acute (2) CVA (cerebral vascular accident): Status: Acute (3) ESRD (end stage renal disease): Status: Acute (4) Insulin dependent type 2 diabetes mellitus: Status: Acute Plan Patient is overall stable. Outpatient ischemic work-up recommended. I had a discussion with patient and family about it. Outpatient event monitor is also recommended. Continue current medication Thank you for involving us with care of this patient. We will sign off. Please call with questions. 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
--- NOTE | 2021-10-27 10:50 | PC.NURSE ---
IMM update Page 2 of IMM updated and reviewed with patient, who verbalized understanding. Initialed, dated and timed, copy placed in chart.
[2021-10-27 11:55] LABS: Glucose Point of Care 120 mg/dL (70-110)
--- NOTE | 2021-10-27 11:57 | P.PN_ITS ---
Subjective Subjective: Patient was seen today along with Dr. 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 Adame recommended outpatient evaluation for now she is not requiring cordelia gical intervention, closed reduction was done yesterday Vitals/I&O/Wt Last Vital Signs Temp 98.1 F 10/27/21 08:00 Pulse 90 10/27/21 08:00 Resp 18 10/27/21 08:27 BP 142/82 10/27/21 08:00 Pulse Ox 95 10/27/21 08:27 10/26/21 10/27/21 10/27/21 22:59 06:59 14:59 Intake Total 1120 / 1840 360 / 360 Output Total 1500 / 1500 Balance -380 / 340 360 / 360 Physical Exam Narrative: Patient sitting in chair Very pleasant cooperative Left-sided neglect, left hand funeral pre need consultant weakness persistent Her left foot is in a boot Abdomen soft, morbid obesity Her left cheek hematoma seems to be getting better, bruise is also regressing No new focal deficit Family at the bedside Currently saturating well on room air Looks euvolemic Urinary Catheter Management: Woodard: Cath Placed During This Visit: yes Reason for Continuing Indwelling Catheter: Other Urinary Catheter Date of Insertion: 10/22/21 Urinary Catheter Time of Insertion: 12:08 Data : 10/26/21 03:46 10/26/21 03:46 A&P Assessment and plan (1) Left foot pain: Status: Acute (2) Fracture of second metatarsal bone of left foot: Status: Acute Qualifiers: Encounter type: initial encounter Fracture type: closed Fracture alignment: displaced Qualified Code(s): S92.322A - Displaced fracture of second metatarsal bone, left foot, initial encounter for closed fracture (3) Fracture of third metatarsal bone of left foot: Status: Acute Qualifiers: Encounter type: initial encounter Fracture type: closed Fracture alignment: displaced Qualified Code(s): S92.332A - Displaced fracture of third metatarsal bone, left foot, initial encounter for closed fracture (4) Fracture of fourth metatarsal bone of left foot: Status: Acute Qualifiers: Encounter type: initial encounter Fracture type: closed Fracture alignment: displaced Qualified Code(s): S92.342A - Displaced fracture of fourth metatarsal bone, left foot, initial encounter for closed fracture (5) Left ankle pain: Status: Acute (6) Acute right MCA stroke: Status: Acute (7) ESRD (end stage renal disease): Status: Acute (8) Contusion of face: Status: Acute (9) Long-term insulin use: Status: Acute (10) Hyperlipidemia: Status: Acute (11) Hypothyroidism: Status: Acute (12) Insulin dependent type 2 diabetes mellitus: Status: Acute Plan Acute thromboembolic CVA Left-sided neglect, left hand funeral pre need consultant weakness She will go home on event monitor Reduced ejection fraction will need outpatient work-up no acute indication for now She is not an ideal candidate for Eliquis, family and patient decided against anticoagulating agent because of her risk of fall End-stage renal disease Tuesday, dialysis tomorrow Foot fracture status post closed reduction by Dr. Adame, she will need outpatient evaluation and follow-up no acute indication for surgical intervention, her foot is currently in a cam boot for immobilization and offloading Hemodynamically stable Currently saturating well on room air She may go to [facility] rehab currently awaiting prior Auth Renal dialysis diet Full code DVT prophylaxis Heparin Resume her Plavix Left cheek hematoma: Improving, hemoglobin stable Attestations Medical Necessity Statement*: Discharge tomorrow? 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 Left foot pain M79.672 Fracture of second metatarsal bone of left foot S92.322A Encounter type: initial encounter Fracture type: closed Fracture alignment: displaced Fracture of third metatarsal bone of left foot S92.332A Encounter type: initial encounter Fracture type: closed Fracture alignment: displaced Fracture of fourth metatarsal bone of left foot S92.342A Encounter type: initial encounter Fracture type: closed Fracture alignment: displaced Left ankle pain M25.572 Acute right MCA stroke I63.511 ESRD (end stage renal disease) N18.6 Contusion of face S00.83XA Long-term insulin use Z79.4 Hyperlipidemia E78.5 Hypothyroidism E03.9 Insulin dependent type 2 diabetes mellitus E11.9; Z79.4
[2021-10-27 12:01] LABS: D Dimer 1.74 ug/mIFEU (0-0.59)
[2021-10-27 12:15] LABS: Anion Gap 16.3 (5-19); Blood Urea Nitrogen 28 mg/dL (6-20); Calcium 8.8 mg/dL (8.5-10.5); Carbon Dioxide 29 mmol/L (22-29); Chloride 92 mmol/L (98-107); Glomerular Filtration Rate 10.1 mL/min (90-130); Glucose 124 mg/dL (65-115); Osmolality Calculated 283 mOsm/kg (285-295); Potassium 4.3 mmol/L (3.5-5.1); Sodium 133 mmol/L (136-145)
[2021-10-27 17:08] LABS: Glucose Point of Care 99 mg/dL (70-110)
--- NOTE | 2021-10-27 19:22 | PC.NURSE ---
Bedside report given to Will EVANS at this time.
[2021-10-27 20:49] LABS: Glucose Point of Care 132 mg/dL (70-110)
[2021-10-27] MEDS: ropinirole 0.25 mg Tablet 0.5 MG PO (21:56)
[2021-10-28] VITALS: BP 110/76; PULSE 92; RESP 17; TEMP 36.3; O2SAT 96
[2021-10-28 04:00] VITALS: BP 141/86; PULSE 92; RESP 17; TEMP 36.5; O2SAT 93
[2021-10-28 06:32] LABS: Glucose Point of Care 135 mg/dL (70-110)
--- NOTE | 2021-10-28 06:54 | PM.PN ---
Subjective Subjective: feels better. no n/v/f/c/d/sob. still w/ foot pain, weakness, facial pain. Medications: Reviewed: Yes Medication Review Details: Current Medications Artificial Tears (Artificial Tears Op Soln 15 Ml Btl) 1 drop EYE-LEFT Q4H PRN PRN Reason: DRY EYE(S) Atorvastatin Calcium (Atorvastatin 40 Mg Tablet) 80 mg PO DAILY [facility] Last Admin: 10/27/21 08:28 Dose: 80 mg Documented by: Clopidogrel Bisulfate (Clopidogrel 75 Mg Tablet) 75 mg PO DAILY [facility] Last Admin: 10/25/21 07:59 Dose: 75 mg Documented by: Dextrose (Dextrose 50% Syringe 50 Ml) 25 ml IVP ONCE PRN; Protocol PRN Reason: hypoglycemia protocol Dextrose (Dextrose 50% Syringe 50 Ml) 50 ml IVP PRN PRN; Protocol PRN Reason: hypoglycemia protocol Epoetin Bandar (Epoetin Bandar 1000 Unit/0.05 Ml (Esrd)) 5,000 unit SUBCUT DIALYSIS [facility] Last Admin: 10/27/21 20:31 Dose: Not Given Documented by: Escitalopram Oxalate (Escitalopram 10 Mg Tablet) 10 mg PO DAILY [facility] Last Admin: 10/27/21 08:27 Dose: 10 mg Documented by: Glucagon (Glucagon 1 Mg/Ml Inj 1 Ml) 1 mg IM ONCE PRN; Protocol PRN Reason: Adult Acute Hypoglycemia Prot. Heparin Sodium (Porcine) (Heparin 5,000 Unit/Ml Inj 1 Ml) 5,000 unit SUBCUT Q12H [facility] Last Admin: 10/25/21 21:05 Dose: 5,000 unit Documented by: Dextrose (D5w) 500 mls @ 100 mls/hr IV ONCE PRN; Protocol PRN Reason: Adult Acute Hypoglycemia Prot Sodium Chloride (Sodium Chloride 0.9%) 1,000 mls @ 0 mls/hr IV .Q0M PRN PRN Reason: hypotension or symptomatic Epoetin Bandar 5,000 unit/ N/A 0.25 mls @ 0 mls/hr IVP ONCE [facility] Insulin Glargine (Insulin Glargine 100 Units/1 Ml) 25 unit SUBCUT DAILY [facility] Last Admin: 10/27/21 08:30 Dose: 25 unit Documented by: Insulin Human Lispro (Insulin Lispro 100 Unit/1 Ml) 0 unit SUBCUT WM&BEDTIME [facility]; Protocol Last Admin: 10/27/21 21:00 Dose: Not Given Documented by: Lidocaine/Prilocaine (Lidocaine-Prilocaine Cream 5 Gm) 1 applic TOPICAL DIALYSIS [facility] Last Admin: 10/27/21 20:32 Dose: Not Given Documented by: Metoprolol Tartrate (Metoprolol Tartrate 25 Mg Tablet) 12.5 mg PO BID@0900,2100 [facility] Last Admin: 10/27/21 21:56 Dose: 12.5 mg Documented by: Morphine Sulfate (Morphine Ir 15 Mg Tablet) 15 mg PO Q4H PRN PRN Reason: SEVERE PAIN Last Admin: 10/27/21 08:27 Dose: 15 mg Documented by: Non-Formulary Medication (Ferric Citrate [Auryxia]) 630 mg PO TID@, [facility] Last Admin: 10/27/21 20:31 Dose: Not Given Documented by: Non-Formulary Medication (Vit B,Z-Fi-Hwnn-Selen-Vit D3-E [Renaplex-D]) 1 tab PO DAILY@1999 [facility] Last Admin: 10/27/21 20:31 Dose: Not Given Documented by: Pramipexole Dihydrochloride (Pramipexole 0.25 Mg Tablet) 0.125 mg PO DAILY@0800 [facility] Last Admin: 10/27/21 08:28 Dose: 0.125 mg Documented by: Ropinirole HCl (Ropinirole 0.25 Mg Tablet) 0.5 mg PO DAILY@1999 [facility] Last Admin: 10/27/21 21:56 Dose: 0.5 mg Documented by: Vitals/I&O/Wt Last Vital Signs Temp 97.7 F 10/28/21 04:00 Pulse 92 10/28/21 04:00 Resp 17 10/28/21 04:00 BP 141/86 10/28/21 04:00 Pulse Ox 93 10/28/21 04:00 10/27/21 10/27/21 10/28/21 14:59 22:59 06:59 Intake Total 360 / 360 250 / 610 Output Total 50 / 50 Balance 360 / 360 250 / 610 -50 / 560 Physical Exam Narrative: obese, comfortable in bed NARD VSS heent- ecchymoses on face neck supple lungs - dull bases b/l heart reg, no rub abd soft, nt, nd, + bs ext left ankle bandage/ boot. some edema RUE AVF w/ thrill and bruit neuro- a,a, o x 3, weak left side Urinary Catheter Management: Woodard: Cath Placed During This Visit: yes Reason for Continuing Indwelling Catheter: Acute Urinary Retention or Obstruction Urinary Catheter Date of Insertion: 10/22/21 Urinary Catheter Time of Insertion: 12:08 Data : 10/26/21 03:46 10/27/21 11:30 A&P Assessment and plan (1) ESRD (end stage renal disease): 56 yr old female 1. ESRD- HD MWF- hd today 4 hrs, 3 k, remove 2 l 2. Acute thromboembolic CVA 3. acute dec in EF from 64 to 41% -appreciate medicine/ cardiology- outpt eval 4. left foot fracture 5. IDDM 6. anemia- MAX iron sat 27% ferritin 2159 seen and examined w/ rN -telehealth visit time spent 30 min Status: Acute Plan see above Attestations Medical Necessity Statement*: per medicine Time Spent in Patient Care: 16 - 35 minutes (>than 50% of time spent in counselling and/or direct pt care on unit). Coding Level of Care Code Acute Rn Mobile for Padmajag Fwd Diagnoses ESRD (end stage renal disease) N18.6
[2021-10-28 08:00] VITALS: BP 104/70; PULSE 89; RESP 16; TEMP 36.6; O2SAT 95
[2021-10-28] MEDS: lidocaine-prilocaine cream 5 gm 1 APPLIC TOPICAL (08:42)
[2021-10-28] MEDS: pramipexole 0.25 mg Tablet 0.125 MG PO (08:44)
[2021-10-28] MEDS: escitalopram 10 mg Tablet PO (08:45)
[2021-10-28] MEDS: atorvastatin 40 mg Tablet 80 MG PO (08:45)
[2021-10-28] MEDS: metoprolol tartrate 25 mg Tablet 12.5 MG PO (08:48)
[2021-10-28] MEDS: insulin glargine 100 units/1 mL 25 UNIT SUBCUT (08:49)
[2021-10-28] MEDS: epoetin alfa 1000 Unit/0.05 mL (ESRD) 5000 UNIT SUBCUT (09:54)
[2021-10-28] MEDS: ondansetron 2 mg/ML SDV 2 mL 4 MG IVP (09:55)
[2021-10-28 10:16] LABS: Basophils % 0.1 %; Hematocrit 33.9 % (37.0-47.0); Hemoglobin 10.2 g/dL (11.5-15.3); Lymphocytes # 1.1 10^3/uL (0.8-4.8); Mean Corpuscular HGB Conc 30.1 g/dL (30.0-36.0); Mean Corpuscular Hemoglobin 30.4 pg (28.0-34.0); Mean Corpuscular Volume 101.2 fl (81-99); Mean Platelet Volume 10.1 fL (7.4-10.4); Monocytes # 0.3 10^3/uL (0.2-0.9); Monocytes % 3.9 %; Neutrophils # 6.81 10^3/uL (1.8-7.7); Neutrophils % 82.5 %; Nucleated Red Blood Cells % 0 %; Platelet Count 245 10^3/cmm (130-400); Red Blood Count 3.35 10^6/uL (4.1-5.3); Red Cell Distribution Width 17.2 % (12.1-15.1); White Blood Count 8.3 10^3/uL (4.0-10.0)
[2021-10-28 10:50] LABS: Alanine Aminotransferase 31 U/L (0-33); Albumin Level 3.2 g/dL (3.5-5.2); Alkaline Phosphatase 146 IU/L (35-105); Anion Gap 14.9 (5-19); Aspartate Amino Transferase 28 U/L (0-32); Blood Urea Nitrogen 26 mg/dL (6-20); Calcium 8.7 mg/dL (8.5-10.5); Carbon Dioxide 28 mmol/L (22-29); Chloride 92 mmol/L (98-107); Globulin 3.5 g/dL (1.3-4.6); Glomerular Filtration Rate 11.5 mL/min (90-130); Glucose 102 mg/dL (65-115); Osmolality Calculated 277 mOsm/kg (285-295); Phosphorus 4.2 mg/dL (2.5-4.5); Potassium 3.9 mmol/L (3.5-5.1); Sodium 131 mmol/L (136-145); Total Bilirubin 0.4 mg/dL (0.15-1.2); Total Protein 6.7 g/dL (6.6-8.7)
--- NOTE | 2021-10-28 10:51 | PC.OT ---
As per nursing report, patient is on Dialysis. OT services withheld. To attempt on a later date/time.
--- NOTE | 2021-10-28 11:20 | P.PN_ITS ---
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 weakness persistent Her left foot is in a boot Abdomen soft, morbid obesity No new focal deficit Family at the bedside Saturating well on room air Left cheek hematoma seems to be improving Urinary Catheter Management: Woodard: Cath Placed During This Visit: yes Reason for Continuing Indwelling Catheter: Acute Urinary Retention or Obstruction Urinary Catheter Date of Insertion: 10/22/21 Urinary Catheter Time of Insertion: 12:08 Data : 10/28/21 10:00 10/28/21 10:00 A&P Assessment and plan (1) Left foot pain: Status: Acute (2) Fracture of second metatarsal bone of left foot: Status: Acute Qualifiers: Encounter type: initial encounter Fracture type: closed Fracture alignment: displaced Qualified Code(s): S92.322A - Displaced fracture of second metatarsal bone, left foot, initial encounter for closed fracture (3) Fracture of third metatarsal bone of left foot: Status: Acute Qualifiers: Encounter type: initial encounter Fracture type: closed Fracture alignment: displaced Qualified Code(s): S92.332A - Displaced fracture of third metatarsal bone, left foot, initial encounter for closed fracture (4) Fracture of fourth metatarsal bone of left foot: Status: Acute Qualifiers: Encounter type: initial encounter Fracture type: closed Fracture alignment: displaced Qualified Code(s): S92.342A - Displaced fracture of fourth metatarsal bone, left foot, initial encounter for closed fracture (5) Foot fracture, left: Status: Acute (6) Left ankle pain: Status: Acute (7) Acute right MCA stroke: Status: Acute (8) ESRD (end stage renal disease): Status: Acute (9) Contusion of face: Status: Acute (10) ESRD (end stage renal disease): Status: Acute Plan Patient is awaiting placement she is tolerating her diet No change in medications Due for dialysis today Continue Plavix and atorvastatin for acute thromboembolic CVA Foot fracture status post closed reduction Renal dialysis diet Hemoglobin stable hematoma is improving Attestations Medical Necessity Statement*: Awaiting placement Time Spent in Patient Care: 10 Coding Level of Care Code Acute 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 Fwd Diagnoses Left foot pain M79.672 Fracture of second metatarsal bone of left foot S92.322A Encounter type: initial encounter Fracture type: closed Fracture alignment: displaced Fracture of third metatarsal bone of left foot S92.332A Encounter type: initial encounter Fracture type: closed Fracture alignment: displaced Fracture of fourth metatarsal bone of left foot S92.342A Encounter type: initial encounter Fracture type: closed Fracture alignment: displaced Foot fracture, left S92.902A Left ankle pain M25.572 Acute right MCA stroke I63.511 ESRD (end stage renal disease) N18.6 Contusion of face S00.83XA ESRD (end stage renal disease) N18.6
[2021-10-28 11:38] LABS: Glucose Point of Care 100 mg/dL (70-110)
[2021-10-28 16:00] VITALS: BP 103/72; PULSE 80; RESP 16; TEMP 36.9; O2SAT 98
[2021-10-28 17:14] LABS: Glucose Point of Care 105 mg/dL (70-110)
[2021-10-28 20:00] VITALS: BP 97/56; PULSE 95; RESP 17; TEMP 36.7; O2SAT 97
[2021-10-28 20:57] LABS: Glucose Point of Care 116 mg/dL (70-110)
[2021-10-28] MEDS: ropinirole 0.25 mg Tablet 0.5 MG PO (21:00)
[2021-10-29] VITALS (8 sets, daily range): BP systolic 99–117; BP diastolic 50–71; PULSE 83–97; RESP 16–19; TEMP 36.6–37.4; O2SAT 93–97
[2021-10-29 06:01] LABS: Basophils % 0.1 %; Hematocrit 34.8 % (37.0-47.0); Lymphocytes # 1.6 10^3/uL (0.8-4.8); Lymphocytes % 17.4 %; Mean Corpuscular HGB Conc 28.7 g/dL (30.0-36.0); Mean Corpuscular Hemoglobin 30.3 pg (28.0-34.0); Mean Corpuscular Volume 105.5 fl (81-99); Mean Platelet Volume 10.2 fL (7.4-10.4); Monocytes # 0.9 10^3/uL (0.2-0.9); Monocytes % 9.9 %; Neutrophils # 6.49 10^3/uL (1.8-7.7); Neutrophils % 72.2 %; Nucleated Red Blood Cells % 0 %; Platelet Count 262 10^3/cmm (130-400); Red Cell Distribution Width 17.6 % (12.1-15.1)
[2021-10-29 06:24] LABS: Alanine Aminotransferase 26 U/L (0-33); Alkaline Phosphatase 119 IU/L (35-105); Blood Urea Nitrogen 19 mg/dL (6-20); Carbon Dioxide 28 mmol/L (22-29); Chloride 95 mmol/L (98-107); Globulin 3.3 g/dL (1.3-4.6); Glomerular Filtration Rate 11.5 mL/min (90-130); Glucose 76 mg/dL (65-115); Magnesium 2.1 mg/dL (1.7-2.3); Osmolality Calculated 281 mOsm/kg (285-295); Phosphorus 4.7 mg/dL (2.5-4.5); Sodium 135 mmol/L (136-145); Total Bilirubin 0.4 mg/dL (0.15-1.2); Total Protein 6.3 g/dL (6.6-8.7)
[2021-10-29 06:25] LABS: Anion Gap 16.7 (5-19); Aspartate Amino Transferase 27 U/L (0-32); Potassium 4.7 mmol/L (3.5-5.1)
[2021-10-29 06:32] LABS: Glucose Point of Care 73 mg/dL (70-110)
[2021-10-29] MEDS: insulin glargine 100 units/1 mL 25 UNIT SUBCUT (09:03)
[2021-10-29] MEDS: atorvastatin 40 mg Tablet 80 MG PO (09:04)
[2021-10-29] MEDS: pramipexole 0.25 mg Tablet 0.125 MG PO (09:05)
[2021-10-29] MEDS: escitalopram 10 mg Tablet PO (09:05)
[2021-10-29] MEDS: ondansetron 2 mg/ML SDV 2 mL 4 MG IVP ×3 (09:06→21:09)
--- NOTE | 2021-10-29 09:22 | PC.SOCIAL ---
IMM Update Imm updated with patient, copy of page 2 provided. Patient verbalized understanding. Copy initialed, dated and timed, placed in chart.
--- NOTE | 2021-10-29 09:55 | P.PN_ITS ---
Subjective Subjective: feels well. dialysis went well yesterday. gaining strength. no n/v/f/c/curran/d. Medications: Reviewed: Yes Medication Review Details: Current Medications Artificial Tears (Artificial Tears Op Soln 15 Ml Btl) 1 drop EYE-LEFT Q4H PRN PRN Reason: DRY EYE(S) Atorvastatin Calcium (Atorvastatin 40 Mg Tablet) 80 mg PO DAILY [facility] Last Admin: 10/29/21 09:04 Dose: 80 mg Documented by: Clopidogrel Bisulfate (Clopidogrel 75 Mg Tablet) 75 mg PO DAILY [facility] Last Admin: 10/25/21 07:59 Dose: 75 mg Documented by: Dextrose (Dextrose 50% Syringe 50 Ml) 25 ml IVP ONCE PRN; Protocol PRN Reason: hypoglycemia protocol Dextrose (Dextrose 50% Syringe 50 Ml) 50 ml IVP PRN PRN; Protocol PRN Reason: hypoglycemia protocol Epoetin Bandar (Epoetin Bandar 1000 Unit/0.05 Ml (Esrd)) 5,000 unit SUBCUT DIALYSIS [facility] Last Admin: 10/29/21 09:45 Dose: Not Given Documented by: Escitalopram Oxalate (Escitalopram 10 Mg Tablet) 10 mg PO DAILY [facility] Last Admin: 10/29/21 09:05 Dose: 10 mg Documented by: Glucagon (Glucagon 1 Mg/Ml Inj 1 Ml) 1 mg IM ONCE PRN; Protocol PRN Reason: Adult Acute Hypoglycemia Prot. Heparin Sodium (Porcine) (Heparin 5,000 Unit/Ml Inj 1 Ml) 5,000 unit SUBCUT Q12H [facility] Last Admin: 10/25/21 21:05 Dose: 5,000 unit Documented by: Dextrose (D5w) 500 mls @ 100 mls/hr IV ONCE PRN; Protocol PRN Reason: Adult Acute Hypoglycemia Prot Sodium Chloride (Sodium Chloride 0.9%) 1,000 mls @ 0 mls/hr IV .Q0M PRN PRN Reason: hypotension or symptomatic Epoetin Bandar 5,000 unit/ N/A 0.25 mls @ 0 mls/hr IVP ONCE [facility] Insulin Glargine (Insulin Glargine 100 Units/1 Ml) 25 unit SUBCUT DAILY [facility] Last Admin: 10/29/21 09:03 Dose: 25 unit Documented by: Insulin Human Lispro (Insulin Lispro 100 Unit/1 Ml) 0 unit SUBCUT WM&BEDTIME [facility]; Protocol Last Admin: 10/29/21 08:00 Dose: Not Given Documented by: Lidocaine/Prilocaine (Lidocaine-Prilocaine Cream 5 Gm) 1 applic TOPICAL DI ALYSIS [facility] Last Admin: 10/29/21 09:45 Dose: Not Given Documented by: Metoprolol Tartrate (Metoprolol Tartrate 25 Mg Tablet) 12.5 mg PO BID@0900,2100 [facility] Last Admin: 10/28/21 21:05 Dose: Not Given Documented by: Morphine Sulfate (Morphine Ir 15 Mg Tablet) 15 mg PO Q4H PRN PRN Reason: SEVERE PAIN Last Admin: 10/27/21 08:27 Dose: 15 mg Documented by: Non-Formulary Medication (Vit B,B-Yk-Cqfl-Selen-Vit D3-E [Renaplex-D]) 1 tab PO DAILY@1999 [facility] Last Admin: 10/28/21 21:00 Dose: Not Given Documented by: Ondansetron HCl (Ondansetron 2 Mg/Ml Sdv 2 Ml) 4 mg IVP Q6H PRN PRN Reason: NAUSEA AND VOMITING Last Admin: 10/29/21 09:06 Dose: 4 mg Documented by: Pramipexole Dihydrochloride (Pramipexole 0.25 Mg Tablet) 0.125 mg PO DAILY@0800 [facility] Last Admin: 10/29/21 09:05 Dose: 0.125 mg Documented by: Ropinirole HCl (Ropinirole 0.25 Mg Tablet) 0.5 mg PO DAILY@1999 [facility] Last Admin: 10/28/21 21:00 Dose: 0.5 mg Documented by: Vitals/I&O/Wt Last Vital Signs Temp 99.4 F 10/29/21 08:00 Pulse 89 10/29/21 08:00 Resp 16 10/29/21 08:00 BP 114/61 10/29/21 08:00 Pulse Ox 97 10/29/21 08:00 10/28/21 10/29/21 10/29/21 22:59 06:59 14:59 Intake Total 240 / 240 1600 / 1840 360 / 360 Output Total 200 / 200 Balance 240 / 240 1400 / 1640 360 / 360 Physical Exam Narrative: obese, comfortable in bed NARD VSS heent- ecchymoses on face neck supple lungs - CTA b/l heart reg, no rub abd soft, nt, nd, + bs ext left ankle bandage/ boot. some edema RUE AVF w/ thrill and bruit neuro- a,a, o x 3, weak left side Urinary Catheter Management: Woodard: Cath Placed During This Visit: yes, but has since been removed by the nurse Reason for Continuing Indwelling Catheter: Not indwelling catheter Urinary Catheter Date of Insertion: 10/22/21 Urinary Catheter Time of Insertion: 12:08 Date Urinary Catheter Removed: 10/28/21 Time Urinary Catheter Discontinued: 18:14 Data : 10/29/21 05:41 10/29/21 05:41 A&P Assessment and plan (1) ESRD (end stage renal disease): 56 yr old female 1. ESRD- HD MWF- hd tomorro 4 hrs, 2 k, remove 2 l 2. Acute thromboembolic CVA 3. acute dec in EF from 64 to 41% -appreciate medicine/ cardiology- outpt eval 4. left foot fracture 5. IDDM 6. anemia- MAX iron sat 27% ferritin 2159 seen and examined w/ rN -telehealth visit time spent 20 min Status: Acute Plan see above Attestations Medical Necessity Statement*: d/c per medicine Time Spent in Patient Care: 16 - 35 minutes (>than 50% of time spent in counselling and/or direct pt care on unit) . Coding Level of Care Code Acute Rn Angiography for Danial Barfield Diagnoses ESRD (end stage renal disease) N18.6
--- NOTE | 2021-10-29 11:05 | PM.MISC ---
Miscellaneous Note Note: This will be considered progress Patient is eating breakfast No overnight events She is improving patient is endorsing feeling better Sitting in a chair eating breakfast Hematoma left cheek area improving No new focal deficit She is able to use silverware without any difficulty Left foot in the boot No new focal deficit Saturating well on room air Woodard catheter has been discontinued yesterday Assessment and plan not changing any of her medications today, her next dialysis session will be on Tuesday. We are still waiting on prior authorization from [facility] I have finished her discharge med rec We have resumed her Plavix, atorvastatin and now she is also getting heparin as DVT prophylaxis Time: 10 minutes
[2021-10-29 11:27] LABS: Glucose Point of Care 93 mg/dL (70-110)
--- NOTE | 2021-10-29 13:10 | PC.OT ---
OT tx attempted at this time. Pt with speech therapist eating lunch. Will attempt again at later time if possible.
[2021-10-29] MEDS: morphine IR 15 mg Tablet PO (15:22)
[2021-10-29 18:02] LABS: Glucose Point of Care 122 mg/dL (70-110)
[2021-10-29] MEDS: ropinirole 0.25 mg Tablet 0.5 MG PO (20:26)
[2021-10-29] MEDS: heparin 5,000 unit/mL INJ 1 mL 5000 UNIT SUBCUT (20:26)
[2021-10-30] VITALS (9 sets, daily range): BP systolic 94–145; BP diastolic 59–94; PULSE 54–107; RESP 12–18; TEMP 36.6–38.1; O2SAT 91–97
[2021-10-30 05:59] LABS: Basophils % 0.2 %; Hematocrit 32.4 % (37.0-47.0); Hemoglobin 9.3 g/dL (11.5-15.3); Lymphocytes # 1.8 10^3/uL (0.8-4.8); Lymphocytes % 27.5 %; Mean Corpuscular HGB Conc 28.7 g/dL (30.0-36.0); Mean Corpuscular Hemoglobin 30.3 pg (28.0-34.0); Mean Corpuscular Volume 105.5 fl (81-99); Mean Platelet Volume 10.3 fL (7.4-10.4); Monocytes # 0.8 10^3/uL (0.2-0.9); Monocytes % 11.7 %; Neutrophils # 3.88 10^3/uL (1.8-7.7); Nucleated Red Blood Cells % 0 %; Platelet Count 237 10^3/cmm (130-400); Red Blood Count 3.07 10^6/uL (4.1-5.3); Red Cell Distribution Width 17.5 % (12.1-15.1); White Blood Count 6.5 10^3/uL (4.0-10.0)
[2021-10-30 06:24] LABS: Glucose Point of Care 106 mg/dL (70-110)
[2021-10-30 06:27] LABS: Alanine Aminotransferase 20 U/L (0-33); Alkaline Phosphatase 102 IU/L (35-105); Anion Gap 16.7 (5-19); Aspartate Amino Transferase 20 U/L (0-32); Blood Urea Nitrogen 26 mg/dL (6-20); Calcium 8.7 mg/dL (8.5-10.5); Carbon Dioxide 26 mmol/L (22-29); Chloride 92 mmol/L (98-107); Globulin 3.3 g/dL (1.3-4.6); Glomerular Filtration Rate 8.9 mL/min (90-130); Glucose 72 mg/dL (65-115); Magnesium 2.2 mg/dL (1.7-2.3); Osmolality Calculated 273 mOsm/kg (285-295); Phosphorus 5.6 mg/dL (2.5-4.5); Potassium 4.7 mmol/L (3.5-5.1); Sodium 130 mmol/L (136-145); Total Bilirubin 0.4 mg/dL (0.15-1.2); Total Protein 6.3 g/dL (6.6-8.7)
[2021-10-30] MEDS: pramipexole 0.25 mg Tablet 0.125 MG PO (09:19)
[2021-10-30] MEDS: heparin 5,000 unit/mL INJ 1 mL 5000 UNIT SUBCUT ×2 (09:19→21:35)
[2021-10-30] MEDS: escitalopram 10 mg Tablet PO (09:20)
[2021-10-30] MEDS: atorvastatin 40 mg Tablet 80 MG PO (09:20)
[2021-10-30] MEDS: ondansetron 2 mg/ML SDV 2 mL 4 MG IVP ×3 (09:20→23:20)
[2021-10-30 11:56] LABS: Glucose Point of Care 82 mg/dL (70-110)
--- NOTE | 2021-10-30 12:16 | P.PN_ITS ---
Subjective Subjective: uneventful HD today Vitals/I&O/Wt Last Vital Signs Temp 98.1 F 10/30/21 09:36 Pulse 97 10/30/21 11:54 Resp 16 10/30/21 11:54 BP 114/94 10/30/21 11:54 Pulse Ox 95 10/30/21 05:03 10/29/21 10/30/21 10/30/21 22:59 06:59 14:59 Intake Total 440 / 800 120 / 920 Balance 440 / 800 120 / 920 Physical Exam 2 Urinary Catheter Management: Woodard: Cath Placed During This Visit: yes, but has since been removed by the nurse Reason for Continuing Indwelling Catheter: Not indwelling catheter Urinary Catheter Date of Insertion: 10/22/21 Urinary Catheter Time of Insertion: 12:08 Date Urinary Catheter Removed: 10/28/21 Time Urinary Catheter Discontinued: 18:14 Data : 10/30/21 04:43 10/30/21 04:43 Other Labs: phos 5.6 A&P Assessment and plan (1) ESRD (end stage renal disease): Status: Acute Plan Seen via telemedicine with assistance of RN at bedside 1. ESRD - cont HD MWF 2. ANemia - epogen and iron at dialysis 3. Fall, CVA, foot fracture 4. Diabetes, hypertension Attestations 2 Medical Necessity Statement*: per primary service Time Spent in Patient Care: less than 15 minutes Coding Level of Care Code Acute Ultra Sound Technician for Danial Fwd Diagnoses ESRD (end stage renal disease) N18.6
[2021-10-30 12:20] LABS: Glucose Point of Care 75 mg/dL (70-110)
--- NOTE | 2021-10-30 12:26 | PC.OT ---
OT ATTEMPTED TX AT THIS TIME. PT HAD JUST RETURNED FROM DIALYSIS AND STATED I NEED A 3 HOUR NAP. COME BACK AFTER MY NAP. PT DECLINES TO EAT LUNCH. PT LEFT IN BED TO REST. OT WILL ATTEMPT LATER IF POSSIBLE.
--- NOTE | 2021-10-30 12:45 | PM.PN ---
Subjective Subjective: Patient will need fistulogram dialysis Tetramed that she received clots when she accessed AV fistula Hemoglobin 9.3 No overnight events Awaiting placement Vitals/I&O/Wt Last Vital Signs Temp 98.1 F 10/30/21 09:36 Pulse 97 10/30/21 11:54 Resp 16 10/30/21 11:54 BP 114/94 10/30/21 11:54 Pulse Ox 95 10/30/21 05:03 10/29/21 10/30/21 10/30/21 22:59 06:59 14:59 Intake Total 440 / 800 120 / 920 Balance 440 / 800 120 / 920 Physical Exam Narrative: Patient was laying supine Lethargic Hematoma of left maxillary area improving Awake and alert No strokelike features Left foot in boot Abdomen soft Patient getting dialyzed Urinary Catheter Management: Woodard: Cath Placed During This Visit: yes, but has since been removed by the nurse Reason for Continuing Indwelling Catheter: Not indwelling catheter Urinary Catheter Date of Insertion: 10/22/21 Urinary Catheter Time of Insertion: 12:08 Date Urinary Catheter Removed: 10/28/21 Time Urinary Catheter Discontinued: 18:14 Data : 10/30/21 04:43 10/30/21 04:43 A&P Assessment and plan (1) Left foot pain: Status: Acute (2) Fracture of second metatarsal bone of left foot: Status: Acute Qualifiers: Encounter type: initial encounter Fracture type: closed Fracture alignment: displaced Qualified Code(s): S92.322A - Displaced fracture of second metatarsal bone, left foot, initial encounter for closed fracture (3) Fracture of third metatarsal bone of left foot: Status: Acute Qualifiers: Encounter type: initial encounter Fracture type: closed Fracture alignment: displaced Qualified Code(s): S92.332A - Displaced fracture of third metatarsal bone, left foot, initial encounter for closed fracture (4) Fracture of fourth metatarsal bone of left foot: Status: Acute Qualifiers: Encounter type: initial encounter Fracture type: closed Fracture alignment: displaced Qualified Code(s): S92.342A - Displaced fracture of fourth metatarsal bone, left foot, initial encounter for closed fracture (5) Foot fracture, left: Status: Acute (6) Left ankle pain: Status: Acute (7) Acute right MCA stroke: Status: Acute (8) ESRD (end stage renal disease): Status: Acute (9) Contusion of face: Status: Acute (10) Long-term insulin use: Status: Acute (11) ESRD (end stage renal disease): Status: Acute (12) Diabetes type 2, uncontrolled: Status: Acute (13) Insulin dependent type 2 diabetes mellitus: Status: Acute Plan Patient is awaiting placement She will need fistulogram She will need cardiology and podiatry follow-up at [facility] Hemoglobin stable Acute thromboembolic CVA Family opted to not add Blanca Working with PT, patient has shown significant improvement Currently on dysphagia level 2 diet no signs of aspiration Attestations Medical Necessity Statement*: Awaiting placement Time Spent in Patient Care: 20 Coding Level of Care Code Acute Medical Csr for Chg Fwd Diagnoses Left foot pain M79.672 Fracture of second metatarsal bone of left foot S92.322A Encounter type: initial encounter Fracture type: closed Fracture alignment: displaced Fracture of third metatarsal bone of left foot S92.332A Encounter type: initial encounter Fracture type: closed Fracture alignment: displaced Fracture of fourth metatarsal bone of left foot S92.342A Encounter type: initial encounter Fracture type: closed Fracture alignment: displaced Foot fracture, left S92.902A Left ankle pain M25.572 Acute right MCA stroke I63.511 ESRD (end stage renal disease) N18.6 Contusion of face S00.83XA Long-term insulin use Z79.4 ESRD (end stage renal disease) N18.6 Diabetes type 2, uncontrolled Insulin dependent type 2 diabetes mellitus E11.9; Z79.4
[2021-10-30 17:16] LABS: Glucose Point of Care 158 mg/dL (70-110)
[2021-10-30] MEDS: insulin lispro 100 unit/1 mL SUBCUT (17:33)
[2021-10-30] MEDS: morphine IR 15 mg Tablet PO (17:38)
[2021-10-30] MEDS: ropinirole 0.25 mg Tablet 0.5 MG PO (21:31)
[2021-10-30 21:36] LABS: Glucose Point of Care 97 mg/dL (70-110)
[2021-10-31 00:44] VITALS: BP 106/70; PULSE 94; RESP 16; TEMP 36.6; O2SAT 93
[2021-10-31 04:00] VITALS: BP 105/65; PULSE 91; RESP 18; TEMP 36.5; O2SAT 95
[2021-10-31 06:00] VITALS: PULSE 85
[2021-10-31 06:59] LABS: Glucose Point of Care 94 mg/dL (70-110)
[2021-10-31 07:56] VITALS: BP 151/74; PULSE 91; RESP 18; TEMP 36.7; O2SAT 98
[2021-10-31] MEDS: escitalopram 10 mg Tablet PO (08:23)
[2021-10-31] MEDS: heparin 5,000 unit/mL INJ 1 mL 5000 UNIT SUBCUT (08:23)
[2021-10-31] MEDS: pramipexole 0.25 mg Tablet 0.125 MG PO (08:24)
[2021-10-31] MEDS: atorvastatin 40 mg Tablet 80 MG PO (08:24)
[2021-10-31] MEDS: ondansetron 2 mg/ML SDV 2 mL 4 MG IVP (08:29)
[2021-10-31] MEDS: insulin glargine 100 units/1 mL 25 UNIT SUBCUT (09:51)
--- NOTE | 2021-10-31 10:24 | PC.SOCIAL ---
IMM Update Imm updated with patient, copy of page 2 provided. Patient verbalized understanding. Copy initialed, dated and timed, placed in chart.
--- NOTE | 2021-10-31 10:51 | PC.OT ---
OT TREATMENT ATTEMPTED. PATIENT IS SLEEPING SOUNDLY. PER NURSING MAY DISCHARGE IF TRANSPORTATION TO NEW FACILITY CAN BE OBTAINED.
--- NOTE | 2021-10-31 10:58 | P.DS_ITS ---
Discharge Providers Date of Admission: 10/22/21 12:17 Date of Discharge: October 28, 2021 Attending Provider at Admission: Basil Siddiqui MD Attending Provider at Discharge: Jigar Flanagan MD Primary Care Provider: Vivienne Schulz MD Diagnoses at Discharge Discharge Diagnosis (1) ESRD (end stage renal disease): Status: Acute (2) CVA (cerebral vascular accident): Status: Acute (3) ESRD (end stage renal disease): Status: Acute (4) Insulin dependent type 2 diabetes mellitus: Status: Acute Reason for Visit Reason for Visit: FALL Hospital Course Hospital Course 56-year-old female who presented to the hospital after sustaining a fall, she suffered from left maxillary facial contusion without any fractures evident on the CT scan of her face, she was diagnosed with acute thromboembolic right MCA stroke, she was not a tPA or thrombectomy candidate. Her rhythm remained sinus throughout her hospitalization. Her troponins were elevated at the time of admission it was above 200, echo showed EF to 42% which is reduced from 65%. Cardiology recommended outpatient work-up. She was also diagnosed with left foot metatarsal fractures, Dr. Adame third hand was consulted who did closed reduction and recommended cam boot. She will need cardiology and podiatry/ Ortho follow-up appointments outpatient. Cardiology follow-up for coronary angiogram in the future, patient and family decided against any anticoagulating agent because of her risk of falls, she suffered 6 falls last year, they do understand she will carry high risk for recurrent thromboembolic CVA. For her end-stage renal disease she was dialyzed Tuesday and Tuesday. She is allergic to aspirin, she received Plavix and atorvastatin throughout her hospitalization. No significant stenosis of carotid vessels on head and neck CTA. Echo did not show any intracardiac shunt EF 42% grade 3 diastolic dysfunction mild to moderate tricuspid valve regurgitation. Mild pulmonary hypertension. 06/23/2020 echo showed EF 65% She is being discharged to [facility] rehab It is very important for her to follow-up with podiatry or orthopedics for her foot x-ray She will need coronary angiogram before any surgical intervention for reduction in her left ventricular ejection fraction. 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 is weak Left foot is in cam boot S1, S2 sinus rhythm Pleasant cooperative Contusion of left side of her face is improving Abdomen soft No new focal deficit Able to work with PT Urinary Catheter Management: Woodard: Cath Placed During This Visit: yes Reason for Continuing Indwelling Catheter: Acute Urinary Retention or Obstruction Urinary Catheter Date of Insertion: 10/22/21 Urinary Catheter Time of Insertion: 12:08 Discharge Data Studies Completed and Pending Completed Studies During Hospitalization Category Date Time Status CT angio head neck [CT angio headneck* 74774/78847] Cat Scan 10/22/21 08:[address] cervical spin wo con* 57097 Urgent Cat Scan 10/22/21 05:[address] facial bones wo con* 23417 Urgent Cat Scan 10/22/21 05:[address] head wo con* 36358 Urgent Cat Scan 10/22/21 05:09 Completed XR chest 1V portable [id number] Routine Exams 10/23/21 10:53 Completed XR foot LT 2V [id number] Routine Exams 10/26/21 12:07 Completed XR foot LT min 3V* [id number] Routine Exams 10/25/21 11:33 Completed CV. echo complete* [id number] Routine Ultrasound 10/23/21 06:00 Completed Pending at discharge Category Date Time Status Complete Blood Count w/Auto AM LABS Lab 10/28/21 04:00 Ordered Complete Blood Count w/Auto AM LABS Lab 10/29/21 04:00 Ordered Complete Blood Count w/Auto AM LABS Lab 10/30/21 04:00 Ordered Comprehensive Metabolic Panel AM LABS Lab 10/28/21 04:00 Ordered Comprehensive Metabolic Panel AM LABS Lab 10/29/21 04:00 Ordered Comprehensive Metabolic Panel AM LABS Lab 10/30/21 04:00 Ordered Magnesium AM LABS Lab 10/28/21 04:00 Ordered Magnesium AM LABS Lab 10/29/21 04:00 Ordered Magnesium AM LABS Lab 10/30/21 04:00 Ordered Phosphorus AM LABS Lab 10/28/21 04:00 Ordered Phosphorus AM LABS Lab 10/29/21 04:00 Ordered Phosphorus AM LABS Lab 10/30/21 04:00 Ordered Radiology Impressions Cervical Spine CT 10/22/21 05:09 IMPRESSION: 1. Loss of cervical lordosis. No evidence of fracture or dislocation. 2. Other findings as described. Face CT 10/22/21 05:09 IMPRESSION: No acute fracture. No evidence intraorbital / ocular injury. Head CT 10/22/21 05:09 IMPRESSION: No evidence of acute intracranial abnormality. No acute hemorrhage. No evidence of acute infarct or mass. Head/Neck CTA 10/22/21 08:37 IMPRESSION: 1. Minimal atherosclerotic disease within the cervical carotid arteries. Less than 50% stenosis. 2. Small caliber distal RIGHT M2 segment with acute thrombus. 3. Mild atherosclerotic disease supraclinoid carotid arteries. 4. Development of an acute infarct in the posterior division of the RIGHT middle cerebral artery. Notified Jd Mejía DO at 10/22/2021 10:24 AM. Chest X-Ray 10/23/21 10:53 Impression: 1. Cardiomegaly with pulmonary vascular congestion and small left effusion. 2. Atherosclerosis. Foot X-Ray 10/26/21 12:07 IMPRESSION: Comminuted mildly displaced fractures involving the distal aspect of the 2nd 3rd and 4th metatarsals. Third metatarsal appears improved in regards to alignment. Laboratory Results WBC 8.5 10^3/uL (4.0-10.0) 10/25/21 04:12 RBC 3.19 10^6/uL (4.1-5.3) L 10/25/21 04:12 Hgb 10.2 g/dL (11.5-15.3) L 10/26/21 03:46 Hct 32.5 % (37.0-47.0) L 10/26/21 03:46 MCV 94.7 fl (81-99) 10/25/21 04:12 MCH 30.4 pg (28.0-34.0) 10/25/21 04:12 MCHC 32.1 g/dL (30.0-36.0) 10/25/21 04:12 RDW 16.5 % (12.1-15.1) H 10/25/21 04:12 Plt Count 274 10^3/cmm (130-400) 10/25/21 04:12 MPV 11.1 fL (7.4-10.4) H 10/25/21 04:12 Neut % (Auto) 75.3 % 10/25/21 04:12 Lymph % (Auto) 16.4 % 10/25/21 04:12 [place] % (Auto) 7.8 % 10/25/21 04:12 Eos % (Auto) 0.0 % 10/25/21 04:12 Baso % (Auto) 0.1 % 10/25/21 04:12 Neut # (Auto) 6.40 10^3/uL (1.8-7.7) 10/25/21 04:12 Lymph # (Auto) 1.4 10^3/uL (0.8-4.8) 10/25/21 04:12 [place] # (Auto) 0.7 10^3/uL (0.2-0.9) 10/25/21 04:12 Eos # (Auto) 0.0 10^3/uL (0.0-0.8) 10/25/21 04:12 Baso # (Auto) 0.0 10^3/uL (0.0-0.1) 10/25/21 04:12 Nucleated RBC % (auto) 0 % 10/25/21 04:12 Nucleated RBCs # 0.0 /100WBC 10/25/21 04:12 ESR 49 mm/hr (0-15) H 10/26/21 03:46 D-Dimer 1.74 ug/mIFEU (0-0.59) H 10/27/21 11:30 Sodium 133 mmol/L (136-145) L 10/27/21 11:30 Potassium 4.3 mmol/L (3.5-5.1) 10/27/21 11:30 Chloride 92 mmol/L (98-107) L 10/27/21 11:30 Carbon Dioxide 29 mmol/L (22-29) 10/27/21 11:30 Anion Gap 16.3 (5-19) 10/27/21 11:30 BUN 28 mg/dL (6-20) H 10/27/21 11:30 Creatinine 4.5 mg/dL (0.5-0.9) H 10/27/21 11:30 GFR Calculation 10.1 mL/min (90-130) L 10/27/21 11:30 Glucose 124 mg/dL (65-115) H 10/27/21 11:30 POC Glucose 135 mg/dL (70-110) H 10/28/21 06:04 Estimat Average Glucose 192 10/23/21 05:31 Hemoglobin A1c 8.3 % (4.0-6.0) H 10/23/21 05:31 Calculated Osmolality 283 mOsm/kg (285-295) L 10/27/21 11:30 Uric Acid 5.7 mg/dL (2.4-5.7) 10/25/21 04:12 Calcium 8.8 mg/dL (8.5-10.5) 10/27/21 11:30 Phosphorus 5.2 mg/dL (2.5-4.5) H 10/25/21 04:12 Magnesium 1.8 mg/dL (1.7-2.3) 10/22/21 05:18 Iron 41 ug/dL (37-145) 10/25/21 04:12 TIBC 147 mcg/dl 10/25/21 04:12 % Saturation 27.8 % (20-50) 10/25/21 04:12 Unsat Iron Binding 106 ug/dL (112-347) L 10/25/21 04:12 Ferritin 2159 ng/mL (15-150) H 10/25/21 04:12 Total Bilirubin 0.3 mg/dL (0.15-1.2) 10/25/21 04:12 AST 25 U/L (0-32) 10/25/21 04:12 ALT 14 U/L (0-33) 10/25/21 04:12 Alkaline Phosphatase 83 IU/L (35-105) 10/25/21 04:12 Troponin T Gen 5 ng/L 219 ng/L (0-10) H* 10/25/21 04:12 Total Protein 6.5 g/dL (6.6-8.7) L 10/25/21 04:12 Albumin 2.9 g/dL (3.5-5.2) L 10/25/21 04:12 Globulin 3.6 g/dL (1.3-4.6) 10/25/21 04:12 Triglycerides 158 mg/dL (0-150) H 10/23/21 05:31 Cholesterol 147 mg/dL (0-200) 10/23/21 05:31 LDL Cholesterol, Calc 61 mg/dL (50-129) 10/23/21 05:31 HDL Cholesterol 54 mg/dL (60-100) L 10/23/21 05:31 LDL/HDL Ratio 1.13 RATIO (0.00-3.22) 10/23/21 05:31 Cholesterol/HDL Ratio 2.72 mg/dL (0.0-4.40) 10/23/21 05:31 TSH 2.04 uIU/mL (0.27-4.20) 10/22/21 05:15 Hep Bs Antigen Non-reactive (Nonreactive) 10/23/21 05:31 Hepatitis C Antibody Non-reactive (Nonreactive) 10/23/21 05:31 Vitals Last Vital Signs Temp 97.7 F 10/28/21 04:00 Pulse 92 10/28/21 04:00 Resp 17 10/28/21 04:00 BP 141/86 10/28/21 04:00 Pulse Ox 93 10/28/21 04:00 Discharge Plan Discharge Patient Disposition: Xfer SNF Condition: Stable Prescriptions: New atorvastatin 40 mg Tablet 80 mg PO DAILY Qty: 90 2RF clopidogrel 75 mg Tablet 75 mg PO DAILY Qty: 120 3RF metoprolol tartrate 25 mg Tablet 12.5 mg PO BID@0900,2100 Qty: 60 3RF Continued escitalopram oxalate [Lexapro] 20 mg tablet 40 mg PO DAILY@0800 0RF atorvastatin 80 mg tablet 80 mg PO DAILY 0RF Tresiba U-100 Insulin 100 unit/mL solution 60 unit SUBCUT DAILY@0800 0RF Novolog Flexpen U-100 Insulin 100 unit/mL (3 mL) insulin pen 15 unit SUBCUT TID@0800,1200,2000 0RF RenaPlex-D 800 mcg-12.5 mg -2,000 unit tablet 1 tab PO DAILY@1999 0RF (DME) Dexcom G6 Taper Printed Circuit Layout Misc See Rx Instructions .Route Qty: 1 0RF Rx Instructions: Check BS continuously (DME) Dexcom G6 Sensor Device See Rx Instructions .Route Qty: 9 3RF Rx Instructions: Change every 10 days. (DME) Dexcom G6 Transmitter Device See Rx Instructions .Route Qty: 3 3RF Rx Instructions: Change every 90 days. cetirizine [Zyrtec] 10 mg Tablet 10 mg PO DAILY@0800 0RF diphenhydramine HCl [Benadryl] 25 mg Capsule 25 mg PO BEDTIME@1999 0RF pramipexole [Mirapex] 0.125 mg Tablet 0.125 mg PO DAILY@0800 0RF carbidopa-levodopa 25-100 mg tablet See Rx Instructions .ROUTE .COMPLEX 0RF Rx Instructions: 0.5 tab orally BEFORE DIALYSIS Auryxia 210 mg iron tablet 630 mg PO TID@08,12,20 0RF Rx Instructions: TAKE WITH MEALS ropinirole 0.5 mg tablet 0.5 mg PO DAILY@2000 0RF Discharge Orders: Discharge Order (Routine); Ordered 10/31/21 Ordered By: Jigar Flanagan Other Ambulatory Orders: XR foot LT 2V 13450 (Routine) Timeframe: 2 Weeks Facility: [facility] - Location: Radiology [facility] Ordered By: Jigar Flanagan Referrals: Leisa Browne [Outside] - 2 weeks Nakul Harris MD [Referring] - 1 month Discharge Diet: Diabetic Discharge Activity: As per PT/OT instructions Patient Instructions: Opioid Safety Discharge Attestations Time Spent in Discharge Care*: less than 30 min Status at Discharge: Cognitive status at discharge: cognitively intact , Behavioral status at discharge: cooperative , Quality Metrics Clinical Quality Measures [ No reported AMI, CVA or VTE this stay] Coding Level of Care Code Acute Chg FW DC note Diagnoses ESRD (end stage renal disease) N18.6 CVA (cerebral vascular accident) I63.9 ESRD (end stage renal disease) N18.6 Insulin dependent type 2 diabetes mellitus E11.9; Z79.4
[2021-10-31 11:48] VITALS: BP 116/69; PULSE 91; RESP 17; TEMP 36.5; O2SAT 96
[2021-10-31 12:00] LABS: Glucose Point of Care 154 mg/dL (70-110)
[2021-10-31 14:38] VITALS: BP 116/69; PULSE 91; RESP 17; TEMP 36.5; O2SAT 96
== END 2021-10-31 14:30 | disposition skilled nursing facility (03) | DRG 64 ==
LOC: ER 06:22 → MEDSURG 12:39
PROVIDERS: Internal Medicine; Internal Medicine Nephrology; Admitting Provider Internal Medicine; Emergency Provider Family Medicine; PCP Internal Medicine; Visit Provider Internal Medicine
DX: I63.311 Cerebral infarction due to thrombosis of right middle cerebral artery (principal); N18.6 End stage renal disease; I12.0 Hypertensive chronic kidney disease with stage 5 chronic kidney disease or end stage renal disease; G81.94 Hemiplegia, unspecified affecting left nondominant side; E87.1 Hypo-osmolality and hyponatremia; J90 Pleural effusion, not elsewhere classified; I24.8 Other forms of acute ischemic heart disease; R29.711 NIHSS score 11; R29.810 Facial weakness; G31.84 Mild cognitive impairment of uncertain or unknown etiology; S92.332A Displaced fracture of third metatarsal bone, left foot, initial encounter for closed fracture; S92.322A Displaced fracture of second metatarsal bone, left foot, initial encounter for closed fracture; S92.342A Displaced fracture of fourth metatarsal bone, left foot, initial encounter for closed fracture; S00.83XA Contusion of other part of head, initial encounter; W18.39XA Other fall on same level, initial encounter; E11.22 Type 2 diabetes mellitus with diabetic chronic kidney disease; D63.1 Anemia in chronic kidney disease; E11.65 Type 2 diabetes mellitus with hyperglycemia; E11.21 Type 2 diabetes mellitus with diabetic nephropathy; E78.5 Hyperlipidemia, unspecified; E03.9 Hypothyroidism, unspecified; E11.42 Type 2 diabetes mellitus with diabetic polyneuropathy; R93.1 Abnormal findings on diagnostic imaging of heart and coronary circulation; Z99.2 Dependence on renal dialysis; Z79.4 Long term (current) use of insulin; Z98.1 Arthrodesis status; Z82.49 Family history of ischemic heart disease and other diseases of the circulatory system; Z83.3 Family history of diabetes mellitus; Z84.1 Family history of disorders of kidney and ureter; Z86.16 Personal history of COVID-19; Z95.828 Presence of other vascular implants and grafts
CPT/HCPCS: 36415; 36416; 51702; 70450; 70486; 70496; 70498; 71045; 72125; 73620; 73630; 80048; 80053; 80061; 82728; 82962; 83036; 83540; 83550; 83735; 84100; 84443; 84484; 84550; 85014; 85018; 85025; 85378; 85651; 86803; 87340; 92507; 92523; 92526; 92610; 93005; 93306; 94760; 96372; 96374; 96375; 97110; 97112; 97116; 97162; 97166; 97530; 97535; 99285; J1200; J1630; J1644; J1650; J1815; J2270; J2405; J2920; J7030; Q3014; Q4081; Q9967

== ENCOUNTER → 2021-11-17 07:48 | Outpatient (BNVA) | payer MEDICARE, MEDICAID, SELFPAY | PROVIDERS: PCP Internal Medicine; Visit Provider Podiatrist Foot & Ankle Surgery | DX: M19.071 Primary osteoarthritis, right ankle and foot (principal); S92.322D Displaced fracture of second metatarsal bone, left foot, subsequent encounter for fracture with routine healing; S92.332D Displaced fracture of third metatarsal bone, left foot, subsequent encounter for fracture with routine healing; S92.342D Displaced fracture of fourth metatarsal bone, left foot, subsequent encounter for fracture with routine healing; R52 Pain, unspecified; N18.6 End stage renal disease; E11.9 Type 2 diabetes mellitus without complications; Z79.4 Long term (current) use of insulin; S90.31XD Contusion of right foot, subsequent encounter; W19.XXXD Unspecified fall, subsequent encounter | CPT/HCPCS: 73630; 99214 ==

== ENCOUNTER 2021-11-27 10:12 | Emergency (ER) | payer MEDICARE, MEDICAID, SELFPAY ==
[2021-11-27 10:33] VITALS: BP 176/82; PULSE 119; RESP 18; TEMP 37.3; O2SAT 92; BMI 37.6
--- NOTE | 2021-11-27 11:02 | ECG_ITS ---
[facility] Test Date: 2021-11-27 Pat Name: Elvi Kaiser Department: Room: Gender: Female Attorney At Law: : 1965 Requested By: Abebe Collins Order Number: [id number] Doug MD: Stoney Montoya M.D. Measurements Intervals [place] Rate: 115 P: -71 PA: 210 QRS: -10 QRSD: 95 T: 50 QT: 359 QTc: 497 Interpretive Statements SINUS TACHYCARDIA WITH FIRST DEGREE AV BLOCK POSSIBLE LEFT ATRIAL ENLARGEMENT [-0.1mV P-WAVE IN V1/V2] LOW QRS VOLTAGE IN PRECORDIAL LEADS [QRS DEFLECTION < 1.0 mV IN CHEST LEADS] PATTERN CONSISTENT WITH PULMONARY DISEASE Compared to ECG 10/23/2021 09:08:25 First degree AV block now present Left-axis deviation no longer present Intraventricular conduction delay no longer present ST (T wave) deviation no longer present Electronically Signed On 11-27-2021 17:46:01 CDT by Stoney Montoya M.D. [email or web address]
[2021-11-27 11:37] VITALS: BP 149/87; PULSE 115; RESP 16; TEMP 36.9; O2SAT 94
[2021-11-27 12:38] VITALS: BP 148/81; PULSE 119; RESP 16; TEMP 36.8; O2SAT 97
[2021-11-27 13:19] VITALS: BP 154/79; PULSE 115; RESP 16; TEMP 36.9; O2SAT 95
--- NOTE | 2021-11-27 13:32 | XR_ITS ---
WS: [id number] Portable AP upright chest, 11/27/2021 Clinical Data: tachycardic Comparison: Portable chest, 10/23/2021. Findings: The heart is enlarged. The pulmonary vascularity is increased. There are patchy opacities a t both lower lobes which probably represent atelectasis and effusion and/or pneumonia. The aortic arc h and descending thoracic aorta show calcification. No nodules or masses are seen. The patient has curran d an anterior cervical disc fusion.. No pneumothorax is seen. XR/XR chest 1V portable [id number] Impression: 1. Cardiomegaly, increased pulmonary vascularity and bilateral effusions consis tent with congestive heart failure. 2. Atherosclerosis.
--- NOTE | 2021-11-27 13:33 | ED_ITS ---
Documented by User: ZUHAIR Barraza 11/27/21 22:03 HPI - General Adult General: Chief complaint: General Medical Stated complaint: High BP, High HR Time Seen by Provider: 11/27/21 13:15 History of Present Illness: Patient is a 56-year-old female comes to the ED for elevated blood pressure and heart rate. Patient was seen at dialysis clinic today. Clinic said patient's blood pressure and heart rate were little elevated and told her to come to the ED after completing dialysis. She denies any current symptoms and says she feels normal. Denies any fevers, headache, vision changes, numbness or tingling to 1 side of her body or weakness to 1 side of her body, chest pain, shortness of breath, abdominal pain, nausea/vomiting, bladder or bowel symptoms. Patient also stated that she ran out of her Plavix prescription and is trying to get scheduled with her PCP to get her Plavix prescription refilled. Patient states that her heart rate is usually around 105 normally. Associated symptoms: Deny chest pain, dyspnea, headache(s), nausea, rash, palpitations or vomiting Review of Systems Const: Denies: fever(s), chills or fatigue Eyes: Denies: change in vision or eye discomfort ENMT: Denies: throat pain, odynophagia, nasal discharge or nasal congestion Card: Denies: chest pain, palpitations, edema, swelling of feet/ankles, dyspnea on exertion or orthopnea Resp: Denies: dyspnea, productive cough or non-productive cough GI: Denies: abdominal pain, nausea, vomiting, diarrhea, constipation or hematochezia : Denies: flank pain, dysuria or hematuria Musc: Denies: neck pain, back pain or extremity swelling Skin/Breast: Denies: rash or new lesions Neuro: Denies: headache(s), numbness in extremities or weakness in extremities PFS ED PFSH: Medical History (Updated 11/27/21 @ 15:14 by ZUHAIR Barraza) Anxiety Appetite loss Chronic back pain COVID-19 De Quervain's tenosynovitis Diabetes Diabetes type 2, uncontrolled ESRD (end stage renal disease) Hyperlipidemia Hypertension Hypothyroidism Insulin dependent type 2 diabetes mellitus Left foot pain Long-term insulin use MCI (mild cognitive impairment) Psychiatric care Surgical History H/O section H/O dilation and curettage H/O neck surgery fusion History of appendectomy History of carpal tunnel repair History of temporal artery biopsy Hx of cholecystectomy S/P arteriovenous (AV) fistula creation S/P dialysis catheter insertion Removed 07/14/20 Status post colonoscopy Family History Father Bleeding disorder Other Diabetes Heart disease Hyperlipidemia Hypertension Kidney problem Migraines Stroke Denies family history of Anesthesia complication Social History Smoking and tobacco status: never smoked Second hand smoke exposure: No Alcohol intake: never Adopted: No Caregiver/support person: Yes Lives independently: Yes Household members: family Housing: House Marital status: Single Highest education level completed: High School Graduate service: No Current occupational status: disabled Current occupational exposures/hazards: No Pets and animals: Yes Pets & animals: dog(s) History of recent travel: No Sexually active: No Current gender identity: Female Sabina/Anglican: Rastafari Special sabina needs: No Agree to transfusion: No Financial difficulty paying for basics: Decline to Answer Physical Exam Const: COMMON NORMALS: no acute distress, patient oriented x3 and alert GENERAL APPEARANCE: cooperative and comfortable HENMT: COMMON NORMALS: normocephalic HEAD & SCALP: normocephalic MOUTH: Normal oral and palatal mucosa present THROAT: posterior oropharynx normal and uvula midline Eye: COMMON NORMALS: Equal, round and reactive pupils present and EOMs intact bilaterally GENERAL EYE: appearance normal, both eyes and all related structures PUPIL: Yes Equal, round and reactive pupils present Neck/C-Spine: COMMON NORMALS: supple GENERAL: Yes normal visual inspection Lymph: LYMPHATIC: no lymphadenopathy noted Resp: COMMON NORMALS: normal respiratory effort, No retractions, No use of accessory muscles and clear to auscultation bilaterally AUSCULTATION: clear to auscultation bilaterally Cardio: COMMON NORMALS: regular rate, regular rhythm, S1 normal heart sound present, S2 normal heart sound present, No gallops present (Cardio), No clicks present (Cardio), No murmurs present (Cardio) and Peripheral pulses 2+ throughout RATE: regular rate RHYTHM: regular rhythm HEART SOUNDS: S1 normal heart sound present and S2 normal heart sound present PERIPHERAL PULSES: Peripheral pulses 2+ throughout GI: COMMON NORMALS: Normal to inspection, nondistended, normoactive bowel sounds present, Soft to palpation, non-tender and no masses PALPATION: Yes Soft to palpation : COMMON NORMALS: Yes no CVA tenderness BLADDER/KIDNEY EXAM: Yes no CVA tenderness Back/Pelvis: COMMON NORMALS: no CVA tenderness Extremity: GENERAL: Yes normal exam except as noted Neuro: COMMON NORMALS: patient oriented x3, CN's II-XII intact bilaterally, moves all extremities, no focal motor deficits and no sensory deficits noted SENSORIUM/ORIENTATION: Yes alert COORDINATION/BALANCE: [id number] test normal SPEECH: speech normal GAIT: Yes Normal gait present SENSORY EXAM: Yes extremities (intact) MOTOR EXAM: 5/5 motor strength present through out COORDINATION: [id number] test normal Skin: COMMON NORMALS: no rashes or lesions noted GENERAL SKIN EXAM: no rashes or lesions noted and dry skin Course Vital Signs: Vital signs: Vital Signs Temperature 98.4 F 11/27/21 13:19 Pulse Rate 116 H 11/27/21 14:55 Respiratory Rate 16 11/27/21 14:55 Blood Pressure 140/72 11/27/21 14:55 Pulse Oximetry 94 11/27/21 14:55 Oxygen Delivery Me thod 11/27/21 14:55 [facility] - General Adult Medical Decision Making Patient is a 56-year-old female comes to the ED for elevated blood pressure and heart rate. Patient was seen at dialysis clinic today. Clinic said patient's blood pressure and heart rate were little elevated and told her to come to the ED after completing dialysis. She denies any current symptoms and says she feels normal. Denies any chest pain, shortness of breath, numbness tingling or weakness to 1 side of her body or face. Patient's heart rate is a little elevated at 119 but the rest of her vitals are stable. Patient states that her heart rate is usually around 105 normally. Patient appears nontoxic in no acute distress or pain. Neuro exam showed no deficits rest of exam was benign. Her labs were unremarkable. Chest x-ray showed some cardiomegaly and some increased bilateral pulmonary lower lobe congestion. EKG showed sinus tachycardia but no other acute findings noted. Patient was stable for discharge home. She is diagnosed with end-stage renal disease and told to follow-up with her PCP within the next week for reevaluation. Patient also stated that she ran out of her Plavix prescription and is trying to get scheduled with her PCP to get her Plavix prescription refilled. Patient was sent home with a refill prescription for Plavix. Return to ED precautions given. Patient understood and agreed with plan. Lab Data I reviewed the patient's lab results. : 11/27/21 13:59 11/27/21 13:59 Radiology Impressions Chest X-Ray 11/27/21 13:32 Impression: 1. Cardiomegaly, increased pulmonary vascularity and bilateral effusions consistent with congestive heart failure. 2. Atherosclerosis. Laboratory Results WBC 9.0 10^3/uL (4.0-10.0) 11/27/21 13:59 RBC 3.63 10^6/uL (4.1-5.3) L 11/27/21 13:59 Hgb 11.0 g/dL (11.5-15.3) L 11/27/21 13:59 Hct 36.8 % (37.0-47.0) L 11/27/21 13:59 MCV 101.4 fl (81-99) H 11/27/21 13:59 MCH 30.3 pg (28.0-34.0) 11/27/21 13:59 MCHC 29.9 g/dL (30.0-36.0) L 11/27/21 13:59 RDW 17.2 % (12.1-15.1) H 11/27/21 13:59 Plt Count 344 10^3/cmm (130-400) 11/27/21 13:59 MPV 9.9 fL (7.4-10.4) 11/27/21 13:59 Neut % (Auto) 79.6 % 11/27/21 13:59 Lymph % (Auto) 13.9 % 11/27/21 13:59 [place] % (Auto) 6.1 % 11/27/21 13:59 Eos % (Auto) 0.0 % 11/27/21 13:59 Baso % (Auto) 0.1 % 11/27/21 13:59 Neut # (Auto) 7.12 10^3/uL (1.8-7.7) 11/27/21 13:59 Lymph # (Auto) 1.2 10^3/uL (0.8-4.8) 11/27/21 13:59 [place] # (Auto) 0.6 10^3/uL (0.2-0.9) 11/27/21 13:59 Eos # (Auto) 0.0 10^3/uL (0.0-0.8) 11/27/21 13:59 Baso # (Auto) 0.0 10^3/uL (0.0-0.1) 11/27/21 13:59 Nucleated RBC % (auto) 0 % 11/27/21 13:59 Nucleated RBCs # 0.0 /100WBC 11/27/21 13:59 Sodium 131 mmol/L (136-145) L 11/27/21 13:59 Potassium 4.2 mmol/L (3.5-5.1) 11/27/21 13:59 Chloride 92 mmol/L (98-107) L 11/27/21 13:59 Carbon Dioxide 27 mmol/L (22-29) 11/27/21 13:59 Anion Gap 16.2 (5-19) 11/27/21 13:59 BUN 12 mg/dL (6-20) 11/27/21 13:59 Creatinine 2.6 mg/dL (0.5-0.9) H 11/27/21 13:59 GFR Calculation 19.0 mL/min (90-130) L 11/27/21 13:59 Glucose 161 mg/dL (65-115) H 11/27/21 13:59 Calculated Osmolality 275 mOsm/kg (285-295) L 11/27/21 13:59 Calcium 10.0 mg/dL (8.5-10.5) 11/27/21 13:59 Total Bilirubin 0.6 mg/dL (0.15-1.2) 11/27/21 13:59 AST 15 U/L (0-32) 11/27/21 13:59 ALT < 5 U/L (0-33) 11/27/21 13:59 Alkaline Phosphatase 104 U/L (35-105) 11/27/21 13:59 Total Protein 8.4 g/dL (6.6-8.7) 11/27/21 13:59 Albumin 3.6 g/dL (3.5-5.2) 11/27/21 13:59 Globulin 4.8 g/dL (1.3-4.6) H 11/27/21 13:59 EKG Data EKG 1: EKG interpretation date: 11/27/21 Interpretation: Sinus tachycardia with first-degree AV block. Rate [address] segment elevation or depression seen. Computer generated interpretation: Chest X-Ray 11/27/21 13:32 Impression: 1. Cardiomegaly, increased pulmonary vascularity and bilateral effusions consistent with congestive heart failure. 2. Atherosclerosis. Discharge Plan Discharge Patient Disposition: Home Clinical Impression: ESRD (end stage renal disease) Condition: Stable Prescriptions: New clopidogrel 75 mg tablet 75 mg PO DAILY Qty: 30 0RF No Action escitalopram oxalate [Lexapro] 20 mg tablet 40 mg PO DAILY@0800 atorvastatin 80 mg tablet 80 mg PO DAILY Tresiba U-100 Insulin 100 unit/mL solution 60 unit SUBCUT DAILY@0800 Novolog Flexpen U-100 Insulin 100 unit/mL (3 mL) insulin pen 15 unit SUBCUT TID@0800,1200,2000 RenaPlex-D 800 mcg-12.5 mg -2,000 unit tablet 1 tab PO DAILY@2000 (DME) Dexcom G6 Lmft Misc See Rx Instructions .Route Qty: 1 0RF Rx Instructions: [place] BS continuously [place] Dexcom G6 Sensor Device See Rx Instructions .Route Qty: 9 3RF Rx Instructions: Change every 10 days. ([facility] Dexcom G6 Transmitter Device See Rx Instructions .Route Qty: 3 3RF Rx Instructions: Change every 90 days. cetirizine [Zyrtec] 10 mg Tablet 10 mg PO DAILY@0800 diphenhydramine HCl [Benadryl] 25 mg Capsule 25 mg PO BEDTIME@2000 pramipexole [Mirapex] 0.125 mg Tablet 0.125 mg PO DAILY@0800 carbidopa-levodopa 25-100 mg tablet See Rx Instructions .ROUTE .COMPLEX Rx Instructions: 0.5 tab orally BEFORE DIALYSIS Auryxia 210 mg iron tablet 630 mg PO TID@08,12,20 Rx Instructions: TAKE WITH MEALS ropinirole 0.5 mg tablet 0.5 mg PO DAILY@2000 atorvastatin 40 mg Tablet 80 mg PO DAILY Qty: 90 2RF clopidogrel 75 mg Tablet 75 mg PO DAILY Qty: 120 3RF metoprolol tartrate 25 mg Tablet 12.5 mg PO BID@0900,2100 Qty: 60 3RF Discharge Orders: Discharge ED (Routine); Ordered 11/27/21 Ordered By: Fernando Scruggs Referrals: Vivienne Schulz MD [Primary Care Provider] - Discharge Diet: Regular Discharge Activity: Increase activity as tolerated Activity Restrictions/Additional Instructions: Follow-up with medical provider as directed. Continue taking home medications as prescribed. Return to the ER or your medical provider if condition worsens. Please read and understand discharge instructions. Thank you for choosing [facility] for your healthcare needs today. Please realize this is an emergency room and that we are providing you with a medical screening exam and this may not be complete and all inclusive of all the testing and or work up that you may need to determine your ailment or severity of your illness. It is very important that you follow up as instructed or that you return to the Emergency Department should you have concerns or if your cond ition changes or worsens in any way. Coding Level of Care Code ED Athletic Trainer for Chg Fwd Exam Comprehensive Documented by User: Abebe Collins MD 11/28/21 11:09 HPI - General Adult General: Chief complaint: General Medical Stated complaint: High BP, High HR Time Seen by Provider: 11/27/21 13:15 [facility] ED PFSH: Medical History (Updated 11/27/21 @ 15:14 by ZUHAIR Barraza) Anxiety Appetite loss Chronic back pain COVID-19 De Quervain's tenosynovitis Diabetes Diabetes type 2, uncontrolled ESRD (end stage renal disease) Hyperlipidemia Hypertension Hypothyroidism Insulin dependent type 2 diabetes mellitus Left foot pain Long-term insulin use MCI (mild cognitive impairment) Psychiatric care Surgical History H/O section H/O dilation and curettage H/O neck surgery fusion History of appendectomy History of carpal tunnel repair History of temporal artery biopsy Hx of cholecystectomy S/P arteriovenous (AV) fistula creation S/P dialysis catheter insertion Removed 07/14/20 Status post colonoscopy Family History Father Bleeding disorder Other Diabetes Heart disease Hyperlipidemia Hypertension Kidney problem Migraines Stroke Denies family history of Anesthesia complication Social History Smoking and tobacco status: never smoked Second hand smoke exposure: No Alcohol intake: never Adopted: No Caregiver/support person: Yes Lives independently: Yes Household members: family Housing: House Marital status: Single Highest education level completed: High School Graduate service: No Current occupational status: disabled Current occupational exposures/hazards: No Pets and animals: Yes Pets & animals: dog(s) History of recent travel: No Sexually active: No Current gender identity: Female Sabina/Anglican: Rastafari Special sabina needs: No Agree to transfusion: No Financial difficulty paying for basics: Decline to Answer Course Vital Signs: Vital signs: Vital Signs Temperature 98.4 F 11/27/21 13:19 Pulse Rate 116 H 11/27/21 14:55 Respiratory Rate 16 11/27/21 14:55 Blood Pressure 140/72 11/27/21 14:55 Pulse Oximetry 94 11/27/21 14:55 Oxygen Delivery Me thod 11/27/21 14:55 MDM - General Adult Medical Decision Making Patient is a 56-year-old female comes to the ED for elevated blood pressure and heart rate. Patient was seen at dialysis clinic today. Clinic said patient's blood pressure and heart rate were little elevated and told her to come to the ED after completing dialysis. She denies any current symptoms and says she feels normal. Denies any chest pain, shortness of breath, numbness tingling or weakness to 1 side of her body or face. Patient's heart rate is a little elevated at 119 but the rest of her vitals are stable. Patient states that her heart rate is usually around 105 normally. Patient appears nontoxic in no acute distress or pain. Neuro exam showed no deficits rest of exam was benign. Her labs were unremarkable. Chest x-ray showed some cardiomegaly and some increased bilateral pulmonary lower lobe congestion. EKG showed sinus tachycardia but no other acute findings noted. Patient was stable for discharge home. She is diagnosed with end-stage renal disease and told to follow-up with her PCP within the next week for reevaluation. Patient also stated that she ran out of her Plavix prescription and is trying to get scheduled with her PCP to get her Plavix prescription refilled. Patient was sent home with a refill prescription for Plavix. Return to ED precautions given. Patient understood and agreed with plan. I discussed this case with ZUHAIR Barraza. I reviewed documentation. I reviewed laboratory studies and imaging. Patient is not requiring supplemental oxygen end while she does have evidence of worsening heart failure she feels subjectively fine. Satisfactory for continued dialysis in the outpatient setting. Abebe Collins MD Emergency Medicine Lab Data : 11/27/21 13:59 11/27/21 13:59 Radiology Impressions Chest X-Ray 11/27/21 13:32 Impression: 1. Cardiomegaly, increased pulmonary vascularity and bilateral effusions consistent with congestive heart failure. 2. Atherosclerosis. Laboratory Results WBC 9.0 10^3/uL (4.0-10.0) 11/27/21 13:59 RBC 3.63 10^6/uL (4.1-5.3) L 11/27/21 13:59 Hgb 11.0 g/dL (11.5-15.3) L 11/27/21 13:59 Hct 36.8 % (37.0-47.0) L 11/27/21 13:59 MCV 101.4 fl (81-99) H 11/27/21 13:59 MCH 30.3 pg (28.0-34.0) 11/27/21 13:59 MCHC 29.9 g/dL (30.0-36.0) L 11/27/21 13:59 RDW 17.2 % (12.1-15.1) H 11/27/21 13:59 Plt Count 344 10^3/cmm (130-400) 11/27/21 13:59 MPV 9.9 fL (7.4-10.4) 11/27/21 13:59 Neut % (Auto) 79.6 % 11/27/21 13:59 Lymph % (Auto) 13.9 % 11/27/21 13:59 [place] % (Auto) 6.1 % 11/27/21 13:59 Eos % (Auto) 0.0 % 11/27/21 13:59 Baso % (Auto) 0.1 % 11/27/21 13:59 Neut # (Auto) 7.12 10^3/uL (1.8-7.7) 11/27/21 13:59 Lymph # (Auto) 1.2 10^3/uL (0.8-4.8) 11/27/21 13:59 [place] # (Auto) 0.6 10^3/uL (0.2-0.9) 11/27/21 13:59 Eos # (Auto) 0.0 10^3/uL (0.0-0.8) 11/27/21 13:59 Baso # (Auto) 0.0 10^3/uL (0.0-0.1) 11/27/21 13:59 Nucleated RBC % (auto) 0 % 11/27/21 13:59 Nucleated RBCs # 0.0 /100WBC 11/27/21 13:59 Sodium 131 mmol/L (136-145) L 11/27/21 13:59 Potassium 4.2 mmol/L (3.5-5.1) 11/27/21 13:59 Chloride 92 mmol/L (98-107) L 11/27/21 13:59 Carbon Dioxide 27 mmol/L (22-29) 11/27/21 13:59 Anion Gap 16.2 (5-19) 11/27/21 13:59 BUN 12 mg/dL (6-20) 11/27/21 13:59 Creatinine 2.6 mg/dL (0.5-0.9) H 11/27/21 13:59 GFR Calculation 19.0 mL/min (90-130) L 11/27/21 13:59 Glucose 161 mg/dL (65-115) H 11/27/21 13:59 Calculated Osmolality 275 mOsm/kg (285-295) L 11/27/21 13:59 Calcium 10.0 mg/dL (8.5-10.5) 11/27/21 13:59 Total Bilirubin 0.6 mg/dL (0.15-1.2) 11/27/21 13:59 AST 15 U/L (0-32) 11/27/21 13:59 ALT < 5 U/L (0-33) 11/27/21 13:59 Alkaline Phosphatase 104 U/L (35-105) 11/27/21 13:59 Total Protein 8.4 g/dL (6.6-8.7) 11/27/21 13:59 Albumin 3.6 g/dL (3.5-5.2) 11/27/21 13:59 Globulin 4.8 g/dL (1.3-4.6) H 11/27/21 13:59 EKG Data EKG 1: Computer generated interpretation: Chest X-Ray 11/27/21 13:32 Impression: 1. Cardiomegaly, increased pulmonary vascularity and bilateral effusions consistent with congestive heart failure. 2. Atherosclerosis. Discharge Plan Discharge Patient Disposition: Home Clinical Impression: ESRD (end stage renal disease) Condition: Stable Prescriptions: New clopidogrel 75 mg tablet 75 mg PO DAILY Qty: 30 0RF No Action escitalopram oxalate [Lexapro] 20 mg tablet 40 mg PO DAILY@0800 atorvastatin 80 mg tablet 80 mg PO DAILY Tresiba U-100 Insulin 100 unit/mL solution 60 unit SUBCUT DAILY@0800 Novolog Flexpen U-100 Insulin 100 unit/mL (3 mL) insulin pen 15 unit SUBCUT TID@0800,1200,2000 RenaPlex-D 800 mcg-12.5 mg -2,000 unit tablet 1 tab PO DAILY@2000 (DME) Dexcom G6 Lmft Misc See Rx Instructions .Route Qty: 1 0RF Rx Instructions: Check BS continuously (DME) Dexcom G6 Sensor Device See Rx Instructions .Route Qty: 9 3RF Rx Instructions: Change every 10 days. [place] Dexcom G6 Transmitter Device See Rx Instructions .Route Qty: 3 3RF Rx Instructions: Change every 90 days. cetirizine [Zyrtec] 10 mg Tablet 10 mg PO DAILY@0800 diphenhydramine HCl [Benadryl] 25 mg Capsule 25 mg PO BEDTIME@2000 pramipexole [Mirapex] 0.125 mg Tablet 0.125 mg PO DAILY@0800 carbidopa-levodopa 25-100 mg tablet See Rx Instructions .ROUTE .COMPLEX Rx Instructions: 0.5 tab orally BEFORE DIALYSIS Auryxia 210 mg iron tablet 630 mg PO TID@08,12,20 Rx Instructions: TAKE WITH MEALS ropinirole 0.5 mg tablet 0.5 mg PO DAILY@2000 atorvastatin 40 mg Tablet 80 mg PO DAILY Qty: 90 2RF clopidogrel 75 mg Tablet 75 mg PO DAILY Qty: 120 3RF metoprolol tartrate 25 mg Tablet 12.5 mg PO BID@0900,2100 Qty: 60 3RF Discharge Orders: Discharge ED (Routine); Ordered 11/27/21 Ordered By: Fernando Scruggs Referrals: Vivienne Schulz MD [Primary Care Provider] - Discharge Diet: Regular Discharge Activity: Increase activity as tolerated Activity Restrictions/Additional Instructions: Follow-up with medical provider as directed. Continue taking home medications as prescribed. Return to the ER or your medical provider if condition worsens. Please read and understand discharge instructions. Thank you for choosing [facility] for your healthcare needs today. Please realize this is an emergency room and that we are providing you with a medical screening exam and this may not be complete and all inclusive of all the testing and or work up that you may need to determine your ailment or severity of your illness. It is very important that you follow up as instructed or that you return to the Emergency Department should you have concerns or if your condition changes or worsens in any way. Coding Level of Care Code ED Athletic Trainer for Danial Fwmary Exam Comprehensive
[2021-11-27] MEDS: sodium chloride 0.9% 250 ML 500 ML IV (14:02)
[2021-11-27 14:03] LABS: Basophils % 0.1 %; Hematocrit 36.8 % (37.0-47.0); Lymphocytes # 1.2 10^3/uL (0.8-4.8); Lymphocytes % 13.9 %; Mean Corpuscular HGB Conc 29.9 g/dL (30.0-36.0); Mean Corpuscular Hemoglobin 30.3 pg (28.0-34.0); Mean Corpuscular Volume 101.4 fl (81-99); Mean Platelet Volume 9.9 fL (7.4-10.4); Monocytes # 0.6 10^3/uL (0.2-0.9); Monocytes % 6.1 %; Neutrophils # 7.12 10^3/uL (1.8-7.7); Neutrophils % 79.6 %; Nucleated Red Blood Cells % 0 %; Platelet Count 344 10^3/cmm (130-400); Red Blood Count 3.63 10^6/uL (4.1-5.3); Red Cell Distribution Width 17.2 % (12.1-15.1)
[2021-11-27 14:25] LABS: Alanine Aminotransferase < 5 U/L (0-33); Albumin Level 3.6 g/dL (3.5-5.2); Alkaline Phosphatase 104 U/L (35-105); Anion Gap 16.2 (5-19); Aspartate Amino Transferase 15 U/L (0-32); Blood Urea Nitrogen 12 mg/dL (6-20); Carbon Dioxide 27 mmol/L (22-29); Chloride 92 mmol/L (98-107); Globulin 4.8 g/dL (1.3-4.6); Glucose 161 mg/dL (65-115); Osmolality Calculated 275 mOsm/kg (285-295); Potassium 4.2 mmol/L (3.5-5.1); Sodium 131 mmol/L (136-145); Total Bilirubin 0.6 mg/dL (0.15-1.2); Total Protein 8.4 g/dL (6.6-8.7)
[2021-11-27 14:55] VITALS: BP 140/72; PULSE 116; RESP 16; O2SAT 94
== END 2021-11-27 15:25 | disposition home or self-care (01) ==
PROVIDERS: Emergency Provider Physician Assistant; PCP Internal Medicine
DX: E11.22 Type 2 diabetes mellitus with diabetic chronic kidney disease (principal); I12.0 Hypertensive chronic kidney disease with stage 5 chronic kidney disease or end stage renal disease; N18.6 End stage renal disease; E78.5 Hyperlipidemia, unspecified; Z99.2 Dependence on renal dialysis; Z79.4 Long term (current) use of insulin; Z79.02 Long term (current) use of antithrombotics/antiplatelets
CPT/HCPCS: 71045; 80053; 85025; 93005; 96360; 99284; J7050

== ENCOUNTER → 2021-12-01 08:34 | Outpatient (BNVA) | payer MEDICARE, MEDICAID, SELFPAY | PROVIDERS: PCP Internal Medicine; Visit Provider Podiatrist Foot & Ankle Surgery | DX: S92.322D Displaced fracture of second metatarsal bone, left foot, subsequent encounter for fracture with routine healing (principal); S92.332D Displaced fracture of third metatarsal bone, left foot, subsequent encounter for fracture with routine healing; S92.342D Displaced fracture of fourth metatarsal bone, left foot, subsequent encounter for fracture with routine healing; X58.XXXD Exposure to other specified factors, subsequent encounter; N18.6 End stage renal disease; E11.9 Type 2 diabetes mellitus without complications; Z79.4 Long term (current) use of insulin; R76.8 Other specified abnormal immunological findings in serum; Z11.1 Encounter for screening for respiratory tuberculosis; R70.0 Elevated erythrocyte sedimentation rate | CPT/HCPCS: 36415; 72202; 73120; 73630; 82550; 83516; 85651; 86140; 86160; 86162; 86200; 86235; 86255; 86376; 86431; 86480; 99213; 99214 ==

== ENCOUNTER → 2021-12-17 09:31 | Outpatient (BNVA) | payer MEDICARE, MEDICAID, SELFPAY | PROVIDERS: PCP Internal Medicine; Visit Provider Podiatrist Foot & Ankle Surgery | DX: S92.322D Displaced fracture of second metatarsal bone, left foot, subsequent encounter for fracture with routine healing (principal); S92.332D Displaced fracture of third metatarsal bone, left foot, subsequent encounter for fracture with routine healing; S92.342D Displaced fracture of fourth metatarsal bone, left foot, subsequent encounter for fracture with routine healing; X58.XXXD Exposure to other specified factors, subsequent encounter; N18.6 End stage renal disease; E11.9 Type 2 diabetes mellitus without complications; Z79.4 Long term (current) use of insulin | CPT/HCPCS: 73630; 99213; 99214 ==

== ENCOUNTER → 2021-12-24 08:30 | Outpatient (BNVA) | payer MEDICARE, MEDICAID, SELFPAY | PROVIDERS: PCP Internal Medicine; Visit Provider Internal Medicine | DX: E11.22 Type 2 diabetes mellitus with diabetic chronic kidney disease (principal); E11.649 Type 2 diabetes mellitus with hypoglycemia without coma; G31.84 Mild cognitive impairment of uncertain or unknown etiology; E16.0 Drug-induced hypoglycemia without coma; T38.3X5A Adverse effect of insulin and oral hypoglycemic [antidiabetic] drugs, initial encounter; R63.0 Anorexia; E78.5 Hyperlipidemia, unspecified; E03.9 Hypothyroidism, unspecified; N18.6 End stage renal disease; Z86.73 Personal history of transient ischemic attack (TIA), and cerebral infarction without residual deficits; Z79.4 Long term (current) use of insulin; Z68.39 Body mass index [BMI] 39.0-39.9, adult | CPT/HCPCS: 99215 ==

== ENCOUNTER → 2022-01-18 11:07 | Outpatient (BNVA) | payer MEDICARE, MEDICAID, SELFPAY | PROVIDERS: PCP Internal Medicine; Visit Provider Podiatrist Foot & Ankle Surgery | DX: S92.322D Displaced fracture of second metatarsal bone, left foot, subsequent encounter for fracture with routine healing (principal); S92.332D Displaced fracture of third metatarsal bone, left foot, subsequent encounter for fracture with routine healing; S92.342D Displaced fracture of fourth metatarsal bone, left foot, subsequent encounter for fracture with routine healing; E11.22 Type 2 diabetes mellitus with diabetic chronic kidney disease; N18.6 End stage renal disease; E11.9 Type 2 diabetes mellitus without complications; Z79.4 Long term (current) use of insulin; S90.31XD Contusion of right foot, subsequent encounter; X58.XXXD Exposure to other specified factors, subsequent encounter | CPT/HCPCS: 73630; 99214 ==

== ENCOUNTER → 2022-03-16 08:48 | Outpatient (BNVA) | payer MEDICARE, MEDICAID, SELFPAY | PROVIDERS: PCP Internal Medicine; Visit Provider Internal Medicine | DX: M05.9 Rheumatoid arthritis with rheumatoid factor, unspecified (principal); R70.0 Elevated erythrocyte sedimentation rate; N18.6 End stage renal disease | CPT/HCPCS: 99214 ==

== ENCOUNTER → 2022-03-18 14:08 | Outpatient (BNVA) | payer MEDICARE, MEDICAID, SELFPAY | PROVIDERS: PCP Internal Medicine; Visit Provider Internal Medicine | DX: E11.22 Type 2 diabetes mellitus with diabetic chronic kidney disease (principal); E11.649 Type 2 diabetes mellitus with hypoglycemia without coma; N18.6 End stage renal disease; G31.84 Mild cognitive impairment of uncertain or unknown etiology; E16.0 Drug-induced hypoglycemia without coma; T38.3X5A Adverse effect of insulin and oral hypoglycemic [antidiabetic] drugs, initial encounter; R63.0 Anorexia; E78.5 Hyperlipidemia, unspecified; E03.9 Hypothyroidism, unspecified; Z79.4 Long term (current) use of insulin; Z79.890 Hormone replacement therapy; Z86.73 Personal history of transient ischemic attack (TIA), and cerebral infarction without residual deficits; Z68.37 Body mass index [BMI] 37.0-37.9, adult | CPT/HCPCS: 99215 ==

== ENCOUNTER 2022-05-10 11:33 | Emergency (ER) | payer MEDICARE, MEDICAID, SELFPAY ==
[2022-05-10 11:39] VITALS: BP 158/88; PULSE 101; RESP 16; TEMP 36.4; O2SAT 93
--- NOTE | 2022-05-10 12:05 | XRR_ITS ---
PROCEDURE INFORMATION: Exam: XR Left Elbow Exam date and time: 05/10/2022 12:32 PM Age: 56 years old Clinical indication: Injury or trauma; Fall; Blunt trauma (contusions or hematomas); Elbow; Left; Additional info: Fall with elbow pain TECHNIQUE: Imaging protocol: Radiologic exam of the Left elbow. Views: 3 or more views. COMPARISON: CR XR hand LT 2V [id number] 12/01/2021 3:37 PM FINDINGS: Bones/joints: No acute fracture, dislocation or abnormal fat pad. Arthritic changes involving the most medial aspect of the ulnar trochlear articulation. Soft tissues: Numerous surgical clips are seen in the anterior subcutaneous tissues as well as subcutaneous calcifications possibly dystrophic calcification. XR/XR elbow LT min 3V* [id number] IMPRESSION: 1. No fracture, arthritis. 2. Multiple areas of heterotopic.
[2022-05-10] MEDS: LORazepam 1 mg Tablet PO (12:10)
--- NOTE | 2022-05-10 12:52 | ED_ITS ---
HPI - Fall General: Chief Complaint: Fall Stated Complaint: fall, left side arm pain, anxiety Time Seen by Provider: 05/10/22 11:48 History of Present Illness: Patient is a 56-year-old female comes to the ED with left elbow pain after fall. Patient fell while transferring from her ch air. She fell and landed on left elbow. Denies any head trauma or loss of consciousness. She has some mild pain in the left elbow. Has full range of motion of the left elbow. Endorses feeling some increased anxiety since her fall, because it brought back bad memories of when she had her stroke in the past. Associated symptoms-after fall: Denies abdominal pain, chest pain, headache(s), hematuria or neck pain Review of Systems Const: Denies: fever(s), chills or fatigue Eyes: Denies: change in vision or eye discomfort ENMT: Denies: throat pain, odynophagia, nasal discharge or nasal congestion Card: Denies: chest pain, palpitations, edema, swelling of feet/ankles, dyspnea on exertion or orthopnea Resp: Denies: dyspnea, productive cough or non-productive cough GI: Denies: abdominal pain, nausea, vomiting, diarrhea, constipation or hematochezia : Denies: flank pain, dysuria or hematuria Musc: Reports: extremity pain (Left elbow); Denies: neck pain, back pain or extremity swelling Skin/Breast: Denies: rash or new lesions Neuro: Denies: headache(s), numbness in extremities or weakness in extremities PFSH ED PFSH: Medical History Anxiety Appetite loss Chronic back pain COVID-19 De Quervain's tenosynovitis Diabetes Diabetes type 2, uncontrolled ESRD (end stage renal disease) Hyperlipidemia Hypertension Hypothyroidism Insulin dependent type 2 diabetes mellitus Left foot pain Long-term insulin use MCI (mild cognitive impairment) Psychiatric care Seropositive rheumatoid arthritis Surgical History H/O section H/O dilation and curettage H/O neck surgery fusion History of appendectomy History of carpal tunnel repair History of temporal artery biopsy Hx of cholecystectomy S/P arteriovenous (AV) fistula creation S/P dialysis catheter insertion Removed 07/14/20 Status post colonoscopy Family History Father Bleeding disorder Other Diabetes Heart disease Hyperlipidemia Hypertension Kidney problem Migraines Stroke Denies family history of Anesthesia complication Social History Smoking and tobacco status: never smoked Second hand smoke exposure: No Alcohol intake: never Adopted: No Caregiver/support person: Yes Lives independently: Yes Household members: family Housing: House Marital status: Single Highest education level completed: High School Graduate service: No Current occupational status: disabled Current occupational exposures/hazards: No Pets and animals: Yes Pets & animals: dog(s) History of recent travel: No Sexually active: No Current gender identity: Female Sabina/Tenriism: Anabaptist Special sabina needs: No Agree to transfusion: No Financial difficulty paying for basics: Decline to Answer Physical Exam Const: COMMON NORMALS: patient oriented x3 and alert GENERAL APPEARANCE: cooperative and anxious HENMT: COMMON NORMALS: normocephalic HEAD & SCALP: normocephalic MOUTH: Normal oral and palatal mucosa present THROAT: posterior oropharynx normal and uvula midline Neck/C-Spine: COMMON NORMALS: supple GENERAL: Yes normal visual inspection Resp: COMMON NORMALS: normal respiratory effort, No retractions, No use of accessory muscles and clear to auscultation bilaterally AUSCULTATION: clear to auscultation bilaterally Cardio: COMMON NORMALS: regular rate, regular rhythm, S1 normal heart sound present, S2 normal heart sound present, No gallops present (Cardio), No clicks present (Cardio), No murmurs present (Cardio) and Peripheral pulses 2+ throughout RATE: regular rate RHYTHM: regular rhythm HEART SOUNDS: S1 normal heart sound present and S2 normal heart sound present PERIPHERAL PULSES: Peripheral pulses 2+ throughout GI: COMMON NORMALS: Normal to inspection, nondistended, normoactive bowel sounds present, Soft to palpation, non-tender and no masses PALPATION: Yes Soft to palpation : COMMON NORMALS: Yes no CVA tenderness BLADDER/KIDNEY EXAM: Yes no CVA tenderness Back/Pelvis: COMMON NORMALS: no CVA tenderness Extremity: NARRATIVE EXTREMITY EXAM: Left elbow?no visible deformity ecchymosis or swelling seen. Patient has full range of motion of elbow. Neurovascular intact distally. Neuro: COMMON NORMALS: patient oriented x3 SENSORIUM/ORIENTATION: Yes alert GAIT: Yes Normal gait present Skin: GENERAL SKIN EXAM: dry skin Course Vital Signs: Vital signs: Vital Signs Temperature 97.6 F 05/10/22 11:39 Pulse Rate 94 05/10/22 13:48 Respiratory Rate 18 05/10/22 13:48 Blood Pressure 145/87 05/10/22 13:48 Pulse Oximetry 97 05/10/22 13:48 MDM - Fall Medical Decision Making Patient is a 56-year-old female comes to the ED with left elbow pain after fall. Patient fell while transferring from her chair. She fell and landed on left elbow. Denies any head trauma or loss of consciousness. She has some mild pain in the left elbow. Has full range of motion of the left elbow. She also endorses little anxious since fall. Left elbow?no visible deformity ecchymosis or swelling seen. Patient has full range of motion of elbow. Neurovascular intact distally. X-ray of left elbow showed no acute fractures or findings. Patient was diagnosed with contusion of left elbow was stable for discharge home. Told to follow-up with the PCP in the next week for reevaluation. Return to ED precautions given. Patient understood and agreed with plan. Lab Data Radiology Impressions Elbow X-Ray 05/10/22 12:05 IMPRESSION: 1. No fracture, arthritis. 2. Multiple areas of heterotopic. Discharge Plan Discharge Patient Disposition: Home Clinical Impression: Contusion of elbow, left Qualifiers: Encounter type: initial encounter Qualified Code(s): S50.02XA - Contusion of left elbow, initial encounter Condition: Stable Prescriptions: No Action escitalopram oxalate [Lexapro] 20 mg tablet 40 mg PO DAILY@0800 atorvastatin 80 mg tablet 80 mg PO DAILY Tresiba U-100 Insulin 100 unit/mL solution 60 unit SUBCUT DAILY@0800 Novolog FlexPen U-100 Insulin 100 unit/mL (3 mL) insulin pen 15 unit SUBCUT TID@0800,1200,2000 RenaPlex-D 800 mcg-12.5 mg -2,000 unit tablet 1 tab PO DAILY@2000 (DME) Dexcom G6 Pleating Machine Operator Misc See Rx Instructions .Route Qty: 1 0RF Rx Instructions: Check BS continuously (DME) Dexcom G6 Sensor Device See Rx Instructions .Route Qty: 9 3RF Rx Instructions: Change every 10 days. (DME) Dexcom G6 Transmitter Device See Rx Instructions .Route Qty: 3 3RF Rx Instructions: Change every 90 days. Glucagon Emergency Kit (human) 1 mg recon soln 1 mg SUBCUT Q20M PRN (Reason: hypoglycemia) Qty: 1 3RF Rx Instructions: until target blood sugar attained gabapentin 100 mg capsule 100 mg PO TID prednisone 5 mg tablet See Rx Instructions PO DAILY Qty: 60 2RF Rx Instructions: 15mg po qday x 5 days , then 10mg po qday orally daily; diphenhydramine HCl [Benadryl] 25 mg Capsule 25 mg PO BEDTIME@2000 pramipexole [Mirapex] 0.125 mg Tablet 0.125 mg PO DAILY@0800 carbidopa-levodopa 25-100 mg tablet See Rx Instructions .ROUTE .COMPLEX Rx Instructions: 0.5 tab orally BEFORE DIALYSIS Auryxia 210 mg iron tablet 630 mg PO TID@08,12,20 Rx Instructions: TAKE WITH MEALS cetirizine [Zyrtec] 10 mg tablet 20 mg PO DAILY@0800 ropinirole 0.5 mg tablet 0.5 mg PO DAILY@2000 clopidogrel 75 mg tablet 75 mg PO DAILY Qty: 30 0RF atorvastatin 40 mg Tablet 80 mg PO DAILY Qty: 90 2RF clopidogrel 75 mg Tablet 75 mg PO DAILY Qty: 120 3RF metoprolol tartrate 25 mg Tablet 12.5 mg PO BID@0900,2100 Qty: 60 3RF Discharge Orders: Discharge ED (Routine); Ordered 05/10/22 Ordered By: Fernando Scruggs Referrals: Vivienne Schulz MD [Primary Care Provider] - Discharge Diet: Regular Discharge Activity: Increase activity as tolerated Patient Instructions: Contusion Activity Restrictions/Additional Instructions: Follow-up with medical provider as directed. Continue taking home medications as previously prescribed. Return to the ER or your medical provider if condition worsens. Please read and understand discharge instructions. Thank you for choosing [facility] for your healthcare needs today. Please realize this is an emergency room and that we are providing you with a medical screening exam and this may not be complete and all inclusive of all the testing and or work up that you may need to determine your ailment or severity of your illness. It is very important that you follow up as instructed or that you return to the Emergency Department should you have concerns or if your condition changes or worsens in any way. Coding Level of Care Code ED Energy Management Specialist for Danial Fwmary Exam Comprehensive
[2022-05-10 13:48] VITALS: BP 145/87; PULSE 94; RESP 18; O2SAT 97
== END 2022-05-10 13:49 | disposition home or self-care (01) ==
PROVIDERS: Emergency Provider Physician Assistant; PCP Internal Medicine
DX: S50.02XA Contusion of left elbow, initial encounter (principal); Z79.02 Long term (current) use of antithrombotics/antiplatelets; Z79.4 Long term (current) use of insulin; E11.22 Type 2 diabetes mellitus with diabetic chronic kidney disease; I12.0 Hypertensive chronic kidney disease with stage 5 chronic kidney disease or end stage renal disease; N18.6 End stage renal disease; E78.5 Hyperlipidemia, unspecified; W07.XXXA Fall from chair, initial encounter
CPT/HCPCS: 73080; 99283

== ENCOUNTER 2022-05-20 08:44 | Outpatient (CLI) | payer MEDICARE, MEDICAID, SELFPAY ==
[2022-05-20 09:30] LABS: Basophils % 0.2 %; Hematocrit 30.9 % (37.0-47.0); Hemoglobin 9.1 g/dL (11.5-15.3); Lymphocytes # 0.7 10^3/uL (0.8-4.8); Mean Corpuscular HGB Conc 29.4 g/dL (30.0-36.0); Mean Corpuscular Volume 105.1 fl (81-99); Mean Platelet Volume 10.3 fL (7.4-10.4); Monocytes # 0.6 10^3/uL (0.2-0.9); Monocytes % 10.7 %; Neutrophils # 4.54 10^3/uL (1.8-7.7); Neutrophils % 76.8 %; Nucleated Red Blood Cells % 0 %; Platelet Count 283 10^3/cmm (130-400); Red Blood Count 2.94 10^6/uL (4.1-5.3); Red Cell Distribution Width 15.6 % (12.1-15.1); White Blood Count 5.9 10^3/uL (4.0-10.0)
[2022-05-20 09:50] LABS: Alanine Aminotransferase < 5 U/L (0-33); Albumin Level 3.2 g/dL (3.5-5.2); Alkaline Phosphatase 67 U/L (35-105); Anion Gap 14.1 (5-19); Aspartate Amino Transferase 10 U/L (0-32); Blood Urea Nitrogen 25 mg/dL (6-20); C Reactive Protein 173.7 mg/L (0.0-4.9); Calcium 9.6 mg/dL (8.5-10.5); Carbon Dioxide 36 mmol/L (22-29); Chloride 90 mmol/L (98-107); Globulin 3.5 g/dL (1.3-4.6); Glomerular Filtration Rate 12.2 mL/min (90-130); Glucose 174 mg/dL (65-115); Osmolality Calculated 291 mOsm/kg (285-295); Potassium 4.1 mmol/L (3.5-5.1); Sodium 136 mmol/L (136-145); Total Bilirubin 0.3 mg/dL (0.15-1.2); Total Protein 6.7 g/dL (6.6-8.7)
[2022-05-20 10:07] LABS: Erythrocyte Sedimentation Rate 35 mm/hr (0-15)
== END 2022-05-20 08:45 | disposition home or self-care (01) ==
LOC: LAB 08:48
PROVIDERS: PCP Internal Medicine; Visit Provider Internal Medicine
DX: E03.9 Hypothyroidism, unspecified (principal); E11.9 Type 2 diabetes mellitus without complications; E16.0 Drug-induced hypoglycemia without coma; E78.5 Hyperlipidemia, unspecified; G31.84 Mild cognitive impairment of uncertain or unknown etiology; N18.6 End stage renal disease; R63.0 Anorexia; T38.3X5A Adverse effect of insulin and oral hypoglycemic [antidiabetic] drugs, initial encounter; Z79.4 Long term (current) use of insulin; M05.9 Rheumatoid arthritis with rheumatoid factor, unspecified
CPT/HCPCS: 80053; 85025; 85651; 86140; 99213

== ENCOUNTER 2022-06-02 13:26 | Emergency (ER) | payer MEDICARE, MEDICAID, SELFPAY ==
[2022-06-02] VITALS (8 sets, daily range): BP systolic 101; BP diastolic 73; PULSE 108–168; RESP 17–28; O2SAT 80–100; BMI 35.9
--- NOTE | 2022-06-02 13:47 | CT_ITS ---
WS: [id number] CT HEAD TECHNIQUE: Noncontrast CT of the head obtained from the skullbase to the vertex. CLINICAL INFORMATION: L sided weakness COMPARISON: October 22, 2021 DLP: 1076.[address] scans at [facility] use at least one of these dose optimization techniques: automated e xposure control; mA and/or kV adjustment per patient size (includes targeted exams where dose is matc hed to clinical indication); or iterative reconstruction. FINDINGS: Chronic appearing infarct involving the RIGHT frontal and parietal lobes extending just to the superi or temporal lobe with encephalomalacia. Chronic ex vacuo dilatation RIGHT lateral ventricle. Associat ed cortical calcifications. This has a chronic appearance. No evidence of acute hemorrhage. Mild small vessel changes. Mild parenchymal volume loss. No hydrocephalus. Vascular calcification. Pa ranasal sinuses and mastoid air cells well aerated. Normal posterior nasopharynx. CT/CT head wo con* [id number] IMPRESSION: 1. No evidence of intracranial hemorrhage or mass effect. 2. Chronic infarct with encephalomalacia involving the RIGHT posterior frontal lobe and parietal lobes with chronic cortical calcifications. 3. Mild small vessel changes. Mild parenchymal volume loss. 4. Vascular calcification. 5. No acute intracranial findings. Notified Jd Mejía DO at 06/02/2022 2:58 PM.
--- NOTE | 2022-06-02 13:47 | XRR_ITS ---
PROCEDURE INFORMATION: Exam: XR Chest Exam date and time: 06/02/2022 2:15 PM Age: 56 years old Clinical indication: Cough and dyspnea; Additional info: Dyspnea/cough TECHNIQUE: Imaging protocol: Radiologic exam of the chest. Views: 1 view. COMPARISON: CR XR chest 1V portable [id number] 11/27/2021 1:58 PM FINDINGS: Lungs: There is rather extensive consolidation left lower lobe progressed from previous exam suspicious for pneumonia and atelectasis. Remaining lung villarreal are clear. Pleural spaces: There is a small left basilar pleural effusion, stable. Heart/Mediastinum: Heart is enlarged. Bones/joints: The prior ACDF otherwise visualized osseous structures are unremarkable. XR/XR chest 1V portable [id number] IMPRESSION: Cardiomegaly with progressive consolidation left lower lobe with small accompanying pleural effusion that may in part be secondary to ongoing pneumonia and atelectasis. CT chest with contrast recommended for further assessment.
--- NOTE | 2022-06-02 14:00 | ED_ITS ---
HPI - Weakness General: Chief complaint: Weakness Stated complaint: WEAKNESS IN LEGS Time Seen by Provider: 06/02/22 13:34 Source: patient Mode of arrival: ambulatory History of Present Illness: 56-year-old female who presents to the emergency room with complaints of leg weakness. Particularly in her left leg. States she had a stroke in October 2021. She currently is undergoing dialysis for end-stage renal disease as well. She states earlier this week within the last 3 to 4 days she began to notice regression of her symptoms from where she had achieved poststroke she is noticing increasing need for ambulation assistance and weakness in her left hand although at the bedside she demonstrates pretty good use of her left hand. NIH score is 1, see below. Believe this is in large part due to her previous stroke. Denies chest or abdominal pain at this time. No nausea vomiting or dizziness. She has not noticed worsening in symptoms she stands up. She has not noticed any difficulty vision or speech or swallowing MD Complaint: focal weakness Onset (ago): day(s) (3-4) Duration: intermittent Location: LUE and LLE Migration: none Associated symptoms: Denies chest pain, chills, melena, dysuria, fever(s), nausea or vomiting Review of Systems Const: Denies: fever(s), chills, body aches, change in appetite, fatigue or malaise ENMT: Denies: throat pain, ear or mastoid pain, nasal discharge or nasal congestion Card: Denies: chest pain, edema, dyspnea on exertion or orthopnea Resp: Denies: dyspnea, productive cough or non-productive cough GI: Denies: abdominal pain, nausea, vomiting, hematemesis, coffee ground emesis, diarrhea, constipation, bloating, hematochezia or melena : Denies: flank pain, difficulty voiding, dysuria, urinary frequency or urinary urgency Skin/Breast: Denies: rash or pruritus PFSH ED PFSH: Medical History Anxiety Appetite loss Chronic back pain COVID-19 De Quervain's tenosynovitis Diabetes Diabetes type 2, uncontrolled ESRD (end stage renal disease) Hyperlipidemia Hypertension Hypothyroidism Insulin dependent type 2 diabetes mellitus Left foot pain Long-term insulin use MCI (mild cognitive impairment) Psychiatric care Rash Seropositive rheumatoid arthritis Surgical History H/O section H/O dilation and curettage H/O neck surgery fusion History of appendectomy History of carpal tunnel repair History of temporal artery biopsy Hx of cholecystectomy S/P arteriovenous (AV) fistula creation S/P dialysis catheter insertion Removed 07/14/20 Status post colonoscopy Family History Father Bleeding disorder Other Diabetes Heart disease Hyperlipidemia Hypertension Kidney problem Migraines Stroke Denies family history of Anesthesia complication Social History Smoking and tobacco status: never smoked Second hand smoke exposure: No Alcohol intake: never Adopted: No Caregiver/support person: Yes Lives independently: Yes Household members: family Housing: House Marital status: Single Highest education level completed: High School Graduate service: No Current occupational status: disabled Current occupational exposures/hazards: No Pets and animals: Yes Pets & animals: dog(s) Sexually active: No Current gender identity: Female Sabina/Methodist: Congregational Special sabina needs: No Agree to transfusion: No Financial difficulty paying for basics: Decline to Answer Physical Exam Const: GENERAL APPEARANCE: cooperative and comfortable ORIENTATION/CONSCIOUSNESS: Yes awake, Yes oriented to person, Yes oriented to place and Yes oriented to time HENMT: COMMON NORMALS: normocephalic, atraumatic and hearing grossly normal bilaterally HEAD & SCALP: normocephalic and atraumatic Resp: COMMON NORMALS: normal respiratory effort, No retractions, No use of accessory muscles and clear to auscultation bilaterally AUSCULTATION: clear to auscultation bilaterally Cardio: COMMON NORMALS: regular rate, regular rhythm and No murmurs present (Cardio) RATE: regular rate RHYTHM: regular rhythm GI: COMMON NORMALS: Soft to palpation and No hepatosplenomegaly present AUSCULTATION: Yes normoactive bowel sounds PALPATION: Yes Soft to palpation, No Tenderness to palpation present (GI), No Guarding due to palpation present (GI) and Yes No hepatosplenomegaly present Extremity: COMMON NORMALS: normal to inspection, capillary refill normal, no clubbing, cyanosis or edema, no calf tenderness and no pedal edema Neuro: SENSORIUM/ORIENTATION: Yes oriented to person, Yes oriented to place and Yes oriented to time Skin: COMMON NORMALS: no rashes or lesions noted GENERAL SKIN EXAM: no rashes or lesions noted Course Vital Signs: Vital signs: Vital Signs Pulse Rate 111 H 06/02/22 15:30 Respiratory Rate 24 H 06/02/22 15:30 Blood Pressure 101/73 06/02/22 14:15 Pulse Oximetry 100 06/02/22 15:30 Oxygen Delivery Me thod 06/02/22 13:37 Oxygen Flow Rate 2 06/02/22 13:37 MDM - Weakness Medical Decision Making No significant findings on exam or CT no new acute stroke. Some this may be slight volume depletion from her previous dialysis earlier today. CT showed a question of progressively consolidating left lower lobe area however there is no respiratory symptoms at this time recommend she follow-up with Dr. Berman for that. Continue her current medication including atorvastatin she should take a baby aspirin daily along with the clopidogrel. Medical Records I reviewed the patient's medical records. Lab Data I reviewed the patient's lab results. 06/02/22 16:12 06/02/22 14:10 Radiology Impressions Chest X-Ray 06/02/22 13:47 IMPRESSION: Cardiomegaly with progressive consolidation left lower lobe with small accompanying pleural effusion that may in part be secondary to ongoing pneumonia and atelectasis. CT chest with contrast recommended for further assessment. Head CT 06/02/22 13:47 IMPRESSION: 1. No evidence of intracranial hemorrhage or mass effect. 2. Chronic infarct with encephalomalacia involving the RIGHT posterior frontal lobe and parietal lobes with chronic cortical calcifications. 3. Mild small vessel changes. Mild parenchymal volume loss. 4. Vascular calcification. 5. No acute intracranial findings. Notified Jd Mejía DO at 06/02/2022 2:58 PM. Laboratory Results WBC 6.3 10^3/uL (4.0-10.0) 06/02/22 16:12 Corrected WBC Cancelled 06/02/22 14:10 RBC 2.88 10^6/uL (4.1-5.3) L 06/02/22 16:12 Hgb 8.9 g/dL (11.5-15.3) L 06/02/22 16:12 Hct 29.1 % (37.0-47.0) L 06/02/22 16:12 MCV 101.0 fl (81-99) H 06/02/22 16:12 MCH 30.9 pg (28.0-34.0) 06/02/22 16:12 MCHC 30.6 g/dL (30.0-36.0) 06/02/22 16:12 RDW 15.8 % (12.1-15.1) H 06/02/22 16:12 Plt Count 382 10^3/cmm (130-400) 06/02/22 16:12 MPV 9.9 fL (7.4-10.4) 06/02/22 16:12 Gran % Cancelled 06/02/22 14:10 Neut % (Auto) 77.5 % 06/02/22 16:12 Lymph % (Auto) 9.5 % 06/02/22 16:12 [place]upe % (Auto) 11.9 % 06/02/22 16:12 Eos % (Auto) 0.0 % 06/02/22 16:12 Baso % (Auto) 0.3 % 06/02/22 16:12 Neut # (Auto) 4.87 10^3/uL (1.8-7.7) 06/02/22 16:12 Lymph # (Auto) 0.6 10^3/uL (0.8-4.8) L 06/02/22 16:12 [place] # (Auto) 0.8 10^3/uL (0.2-0.9) 06/02/22 16:12 Eos # (Auto) 0.0 10^3/uL (0.0-0.8) 06/02/22 16:12 Baso # (Auto) 0.0 10^3/uL (0.0-0.1) 06/02/22 16:12 Absolute Gran (auto) Cancelled 06/02/22 14:10 Nucleated RBC % (auto) 0 % 06/02/22 16:12 Nucleated RBCs # 0.0 /100WBC 06/02/22 16:12 Sodium 129 mmol/L (136-145) L 06/02/22 14:10 Potassium 4.9 mmol/L (3.5-5.1) 06/02/22 14:10 Chloride 86 mmol/L (98-107) L 06/02/22 14:10 Carbon Dioxide 32 mmol/L (22-29) H 06/02/22 14:10 Anion Gap 15.9 (5-19) 06/02/22 14:10 BUN 13 mg/dL (6-20) 06/02/22 14:10 Creatinine 2.7 mg/dL (0.5-0.9) H 06/02/22 14:10 GFR Calculation 18.2 mL/min (90-130) L 06/02/22 14:10 Glucose 151 mg/dL (65-115) H 06/02/22 14:10 Calculated Osmolality 271 mOsm/kg (285-295) L 06/02/22 14:10 Calcium 8.7 mg/dL (8.5-10.5) 06/02/22 14:10 Total Bilirubin 0.5 mg/dL (0.15-1.2) 06/02/22 14:10 AST 17 U/L (0-32) 06/02/22 14:10 ALT 7 U/L (0-33) 06/02/22 14:10 Alkaline Phosphatase 83 U/L (35-105) 06/02/22 14:10 Total Protein 6.1 g/dL (6.6-8.7) L 06/02/22 14:10 Albumin 2.8 g/dL (3.5-5.2) L 06/02/22 14:10 Globulin 3.3 g/dL (1.3-4.6) 06/02/22 14:10 Discharge Plan Discharge Patient Disposition: Home Clinical Impression: Hx of completed stroke, Weakness of left side of body Condition: Stable Prescriptions: No Action escitalopram oxalate [Lexapro] 20 mg tablet 40 mg PO DAILY@0800 atorvastatin 80 mg tablet 80 mg PO DAILY Tresiba U-100 Insulin 100 unit/mL solution 60 unit SUBCUT DAILY@0800 Novolog FlexPen U-100 Insulin 100 unit/mL (3 mL) insulin pen 15 unit SUBCUT TID@0800,1200,2000 RenaPlex-D 800 mcg-12.5 mg -2,000 unit tablet 1 tab PO DAILY@2000 (DME) Dexcom G6 Tool Keeper Misc See Rx Instructions .Route Qty: 1 0RF Rx Instructions: Check BS continuously (DME) Dexcom G6 Sensor Device See Rx Instructions .Route Qty: 9 3RF Rx Instructions: Change every 10 days. (DME) Dexcom G6 Transmitter Device See Rx Instructions .Route Qty: 3 3RF Rx Instructions: Change every 90 days. Glucagon Emergency Kit (human) 1 mg recon soln 1 mg SUBCUT Q20M PRN (Reason: hypoglycemia) Qty: 1 3RF Rx Instructions: until target blood sugar attained gabapentin 100 mg capsule 100 mg PO TID prednisone 5 mg tablet See Rx Instructions PO DAILY Qty: 60 2RF Rx Instructions: 15mg po qday x 5 days , then 10mg po qday orally daily; prednisone 5 mg tablet 5 mg PO DAILY Qty: 90 0RF prednisone 2.5 mg tablet See Rx Instructions PO DAILY Qty: 30 0RF Rx Instructions: take 3 daily for one month orally daily; diphenhydramine HCl [Benadryl] 25 mg Capsule 25 mg PO BEDTIME@2000 pramipexole [Mirapex] 0.125 mg Tablet 0.125 mg PO DAILY@0800 carbidopa-levodopa 25-100 mg tablet See Rx Instructions .ROUTE .COMPLEX Rx Instructions: 0.5 tab orally BEFORE DIALYSIS Auryxia 210 mg iron tablet 630 mg PO TID@08,12,20 Rx Instructions: TAKE WITH MEALS cetirizine [Zyrtec] 10 mg tablet 20 mg PO DAILY@0800 ropinirole 0.5 mg tablet 0.5 mg PO DAILY@2000 clopidogrel 75 mg tablet 75 mg PO DAILY Qty: 30 0RF atorvastatin 40 mg Tablet 80 mg PO DAILY Qty: 90 2RF clopidogrel 75 mg Tablet 75 mg PO DAILY Qty: 120 3RF metoprolol tartrate 25 mg Tablet 12.5 mg PO BID@0900,2100 Qty: 60 3RF Discharge Orders: Discharge ED (Routine); Ordered 06/02/22 Ordered By: Jd Mejía Referrals: Vivienne Schulz MD [Primary Care Provider] - Discharge Diet: Usual diet Discharge Activity: Increase activity as tolerated Patient Instructions: Opioid Safety, Pain Management Activity Restrictions/Additional Instructions: You are seen today for left-sided weakness. Some of this is likely residual from your previous stroke or no significant findings on exam CT showed the old stroke but no acute changes. Recommend you continue with atorvastatin and clopidogrel along with a baby aspirin daily. Follow-up with your primary care doctor Coding Level of Care Code ED Archery Equipment Repairer for Danial Barfield NIH stroke score NIHSS Level Of Consciousness - 1a: 0 Level Of Consciousness Questions - 1b: Both Correct Level Of Consciousness Commands - 1c: Both Correct Best Gaze - 2: Normal Visual [place]o - 3: No Visual Loss Facial Palsy - 4: Normal Motor Arm Right - 5: No Drift Motor Arm Left - 5: No Drift Motor Leg Right - 6: No Drift Motor Leg Left - 6: No Drift Limb Ataxia - 7: Absent Sensory - 8: Mild To Moderate Loss Best Language - 9: No Aphasia Dysarthia - 10: Normal Extinction And Inattention - 11: 0 Score Total Score: 1
--- NOTE | 2022-06-02 14:27 | ECG_ITS ---
[facility] Test Date: 2022-06-02 Pat Name: Elvi Kaiser Department: Room: Gender: Female Die Maintenance: : 1965 Requested By: Jd Morillo Order Number: [id number] Doug MD: Stoney Montoya M.D. Measurements Intervals [place] Rate: 116 P: 46 MS: 161 QRS: -21 QRSD: 97 T: 116 QT: 330 QTc: 460 Interpretive Statements SINUS TACHYCARDIA LOW QRS VOLTAGE IN PRECORDIAL LEADS [QRS DEFLECTION < 1.0 mV IN CHEST LEADS] POSSIBLE ANTERIOR MYOCARDIAL INFARCTION , PROBABLY OLD [30 ms Q WAVE IN V3/V4, OR R < 0.2 mV IN V4] Compared to ECG 11/27/2021 11:08:48 Myocardial infarct finding now present First degree AV block no longer present Electronically Signed On 06-02-2022 17:27:08 CELERY WRAPPER by Stoney Montoya M.D. [id number]
[2022-06-02 14:46] LABS: Albumin Level 2.8 g/dL (3.5-5.2); Alkaline Phosphatase 83 U/L (35-105); Blood Urea Nitrogen 13 mg/dL (6-20); Calcium 8.7 mg/dL (8.5-10.5); Carbon Dioxide 32 mmol/L (22-29); Chloride 86 mmol/L (98-107); Globulin 3.3 g/dL (1.3-4.6); Glomerular Filtration Rate 18.2 mL/min (90-130); Glucose 151 mg/dL (65-115); Osmolality Calculated 271 mOsm/kg (285-295); Sodium 129 mmol/L (136-145); Total Bilirubin 0.5 mg/dL (0.15-1.2); Total Protein 6.1 g/dL (6.6-8.7)
[2022-06-02 14:47] LABS: Alanine Aminotransferase 7 U/L (0-33); Anion Gap 15.9 (5-19); Aspartate Amino Transferase 17 U/L (0-32); Potassium 4.9 mmol/L (3.5-5.1)
[2022-06-02 16:23] LABS: Basophils % 0.3 %; Hematocrit 29.1 % (37.0-47.0); Hemoglobin 8.9 g/dL (11.5-15.3); Lymphocytes # 0.6 10^3/uL (0.8-4.8); Lymphocytes % 9.5 %; Mean Corpuscular HGB Conc 30.6 g/dL (30.0-36.0); Mean Corpuscular Hemoglobin 30.9 pg (28.0-34.0); Mean Platelet Volume 9.9 fL (7.4-10.4); Monocytes # 0.8 10^3/uL (0.2-0.9); Monocytes % 11.9 %; Neutrophils # 4.87 10^3/uL (1.8-7.7); Neutrophils % 77.5 %; Nucleated Red Blood Cells % 0 %; Platelet Count 382 10^3/cmm (130-400); Red Blood Count 2.88 10^6/uL (4.1-5.3); Red Cell Distribution Width 15.8 % (12.1-15.1); White Blood Count 6.3 10^3/uL (4.0-10.0)
== END 2022-06-02 17:36 | disposition home or self-care (01) ==
PROVIDERS: Emergency Provider Family Medicine; PCP Internal Medicine
DX: R53.1 Weakness (principal); Z86.73 Personal history of transient ischemic attack (TIA), and cerebral infarction without residual deficits; Z79.4 Long term (current) use of insulin; Z79.02 Long term (current) use of antithrombotics/antiplatelets; E11.22 Type 2 diabetes mellitus with diabetic chronic kidney disease; I12.0 Hypertensive chronic kidney disease with stage 5 chronic kidney disease or end stage renal disease; N18.6 End stage renal disease; E78.5 Hyperlipidemia, unspecified
CPT/HCPCS: 36415; 70450; 71045; 80053; 85025; 93005; 99285

== ENCOUNTER 2022-06-03 14:46 | Emergency (ER) | payer MEDICARE, MEDICAID, SELFPAY ==
[2022-06-03 15:03] VITALS: BP 120/69; PULSE 92; RESP 16; TEMP 36.7; O2SAT 93
--- NOTE | 2022-06-03 15:10 | XR_ITS ---
WS: [id number] Exam: XR foot RT min 3V* [id number] Date/Time of Exam: 06/03/2022 3:11 PM Reason For Exam: fall, toe hyperextension Comparison 11/17/2021. There are fractures of the proximal aspects of the proximal phalanges of the third fourth and fifth toes. There is slight lateral angulation involving fractures of the fourth and fifth toes but alignme nt should be satisfactory for healing. No other obvious fractures. Degenerative change of the IP join ts and first MP joint. Degenerative changes in the midfoot joints. Marked osteopenia. Vascular calcif ications about the foot and ankle. Calcaneal spurs. XR/XR foot RT min 3V* [id number] IMPRESSION: 1. Fractures involving the proximal aspects of the proximal phalanges of the th ird fourth and fifth toes. The fourth and fifth phalangeal fractures demonstrat e mild angulation however alignment should be satisfactory for healing. 2. Additional nonemergent findings as above.
--- NOTE | 2022-06-03 16:45 | ED_ITS ---
HPI - Extremity Problem General: Chief complaint: Extremity Injury, Lower Stated complaint: fall, right foot pain Time Seen by Provider: 06/03/22 14:48 History of Present Illness: Patient is in today for right foot pain. She reports that today she was walking and fell forward rolling her toes up under her foot. She reports that her foot started hurting as the day went by at her toes and she started noticing bruising. She said that it feels very similar as when she broke her left foot. Patient denies injuring any other part of her body in the fall. She denies hitting her head or having a loss of consciousness. Associated symptoms: Deny chest pain or fever(s) Review of Systems Const: Denies: fever(s) or chills Card: Denies: chest pain, palpitations or irregular heart rhythm Resp: Denies: dyspnea, productive cough or non-productive cough Musc: Reports: extremity pain (Right foot) Neuro: Denies: headache(s), numbness in extremities or weakness in extremities PFSH ED PFSH: Medical History Anxiety Appetite loss Chronic back pain COVID-19 De Quervain's tenosynovitis Diabetes Diabetes type 2, uncontrolled ESRD (end stage renal disease) Hyperlipidemia Hypertension Hypothyroidism Insulin dependent type 2 diabetes mellitus Left foot pain Long-term insulin use MCI (mild cognitive impairment) Psychiatric care Rash Seropositive rheumatoid arthritis Surgical History H/O section H/O dilation and curettage H/O neck surgery fusion History of appendectomy History of carpal tunnel repair History of temporal artery biopsy Hx of cholecystectomy S/P arteriovenous (AV) fistula creation S/P dialysis catheter insertion Removed 07/14/20 Status post colonoscopy Family History Father Bleeding disorder Other Diabetes Heart disease Hyperlipidemia Hypertension Kidney problem Migraines Stroke Denies family history of Anesthesia complication Social History Smoking and tobacco status: never smoked Second hand smoke exposure: No Alcohol intake: never Adopted: No Caregiver/support person: Yes Lives independently: Yes Household members: family Housing: House Marital status: Single Highest education level completed: High School Graduate service: No Current occupational status: disabled Current occupational exposures/hazards: No Pets and animals: Yes Pets & animals: dog(s) Sexually active: No Current gender identity: Female Sabina/Roman Catholic: [employer] Special sabina needs: No Agree to transfusion: No Financial difficulty paying for basics: Decline to Answer Physical Exam Const: COMMON NORMALS: no acute distress, patient oriented x3 and alert OTHER: Frail-appearing female sitting in a wheelchair. No acute distress Resp: COMMON NORMALS: normal respiratory effort and No use of accessory muscles Extremity: NARRATIVE EXTREMITY EXAM: Right foot slightly edematous. There is bruising and increased soft tissue swelling at the base of the third through fifth toes. Tenderness to palpation. Pedal pulses palpable. Sensation and color are intact. Neuro: COMMON NORMALS: patient oriented x3 SENSORIUM/ORIENTATION: Yes alert Course Vital Signs: Vital signs: Vital Signs Temperature 98.0 F 06/03/22 15:03 Pulse Rate 92 06/03/22 15:03 Respiratory Rate 16 06/03/22 15:03 Blood Pressure 120/69 06/03/22 15:03 Pulse Oximetry 93 06/03/22 15:03 MDM - Extremity (Nontraumatic) Medical Decision Making Differentials include foot strain, foot contusion, foot fracture X-ray right foot?fracture third through fifth proximal phalanges with angulation, mild, fourth and fifth phalangeal fractures We will place patient in a postop shoe. Message sent to case management to facilitate referral to orthopedics for continued follow-up and management. Patient is unable to use crutches and does chronically use a rolling walker with a seat. She reports that she will be able to minimize weightbearing using the walker as she can sit and move herself most anywhere she needs to go in her home. We discussed conservative treatment at home including rest, elevation, ice. Follow-up with orthopedics. Follow-up with primary care provider. Return to the ER as needed for new or worsening symptoms Lab Data Radiology Impressions Foot X-Ray 06/03/22 15:10 IMPRESSION: 1. Fractures involving the proximal aspects of the proximal phalanges of the third fourth and fifth toes. The fourth and fifth phalangeal fractures demonstrate mild angulation however alignment should be satisfactory for healing. 2. Additional nonemergent findings as above. Discharge Plan Discharge Patient Disposition: Home Clinical Impression: Fracture of toe, closed Qualifiers: Encounter type: initial encounter Toe: lesser toe Phalanx: proximal Fracture alignment: displaced Laterality: right Qualified Code(s): S92.511A - Displaced fracture of proximal phalanx of right lesser toe(s), initial encounter for closed fracture Condition: Stable Prescriptions: No Action escitalopram oxalate [Lexapro] 20 mg tablet 40 mg PO DAILY@0800 atorvastatin 80 mg tablet 80 mg PO DAILY Tresiba U-100 Insulin 100 unit/mL solution 60 unit SUBCUT DAILY@0800 Novolog FlexPen U-100 Insulin 100 unit/mL (3 mL) insulin pen 15 unit SUBCUT TID@0800,1200,2000 RenaPlex-D 800 mcg-12.5 mg -2,000 unit tablet 1 tab PO DAILY@2000 (DME) Dexcom G6 Mobile Sales Consultant Misc See Rx Instructions .Route Qty: 1 0RF Rx Instructions: Check BS continuously (DME) Dexcom G6 Sensor Device See Rx Instructions .Route Qty: 9 3RF Rx Instructions: Change every 10 days. (DME) Dexcom G6 Transmitter Device See Rx Instructions .Route Qty: 3 3RF Rx Instructions: Change every 90 days. Glucagon Emergency Kit (human) 1 mg recon soln 1 mg SUBCUT Q20M PRN (Reason: hypoglycemia) Qty: 1 3RF Rx Instructions: until target blood sugar attained gabapentin 100 mg capsule 100 mg PO TID prednisone 5 mg tablet See Rx Instructions PO DAILY Qty: 60 2RF Rx Instructions: 15mg po qday x 5 days , then 10mg po qday orally daily; prednisone 5 mg tablet 5 mg PO DAILY Qty: 90 0RF prednisone 2.5 mg tablet See Rx Instructions PO DAILY Qty: 30 0RF Rx Instructions: take 3 daily for one month orally daily; diphenhydramine HCl [Benadryl] 25 mg Capsule 25 mg PO BEDTIME@2000 pramipexole [Mirapex] 0.125 mg Tablet 0.125 mg PO DAILY@0800 carbidopa-levodopa 25-100 mg tablet See Rx Instructions .ROUTE .COMPLEX Rx Instructions: 0.5 tab orally BEFORE DIALYSIS Auryxia 210 mg iron tablet 630 mg PO TID@08,12,20 Rx Instructions: TAKE WITH MEALS cetirizine [Zyrtec] 10 mg tablet 20 mg PO DAILY@0800 ropinirole 0.5 mg tablet 0.5 mg PO DAILY@2000 clopidogrel 75 mg tablet 75 mg PO DAILY Qty: 30 0RF atorvastatin 40 mg Tablet 80 mg PO DAILY Qty: 90 2RF clopidogrel 75 mg Tablet 75 mg PO DAILY Qty: 120 3RF metoprolol tartrate 25 mg Tablet 12.5 mg PO BID@0900,2100 Qty: 60 3RF Discharge Orders: Discharge ED (Routine); Ordered 06/03/22 Ordered By: Cailin Stewart Referrals: Vivienne Schulz MD [Primary Care Provider] - Discharge Diet: Usual diet Discharge Activity: Limit activity as instructed Patient Instructions: Fractures - Phalanx (Toe) Activity Restrictions/Additional Instructions: Use postop shoe and rolling seated walker to reduce weightbearing on the foot. Rest, elevate, ice the foot. Follow-up with orthopedics. Return to the ER as needed for new or worsening symptoms Coding Level of Care Code ED Asphalt Coater for Danial Barfield
--- NOTE | 2022-06-04 09:57 | DCPLANNER ---
Addendum entered by Kita Conley 06/08/22 15:09: Patient had a follow up appointment scheduled for 06.08.22 with ortho - patient did attend appointment. Original Note: automation manager had message to schedule a follow up appointment for patient with ortho. automation manager sent patients information to the front office staff at ortho. Patients information will be printed and reviewed. Clinic will call patient with appointment information.
== END 2022-06-03 17:04 | disposition home or self-care (01) ==
PROVIDERS: Emergency Provider Nurse Practitioner Family; PCP Internal Medicine
DX: S92.511A Displaced fracture of proximal phalanx of right lesser toe(s), initial encounter for closed fracture (principal); Z79.02 Long term (current) use of antithrombotics/antiplatelets; Z79.4 Long term (current) use of insulin; E11.22 Type 2 diabetes mellitus with diabetic chronic kidney disease; I12.0 Hypertensive chronic kidney disease with stage 5 chronic kidney disease or end stage renal disease; N18.6 End stage renal disease; E78.5 Hyperlipidemia, unspecified; W18.39XA Other fall on same level, initial encounter
CPT/HCPCS: 73630; 99283

== ENCOUNTER → 2022-06-08 10:17 | Outpatient (BNVA) | payer MEDICARE, MEDICAID, SELFPAY | PROVIDERS: PCP Internal Medicine; Visit Provider Podiatrist Foot & Ankle Surgery | DX: E11.8 Type 2 diabetes mellitus with unspecified complications (principal); E11.22 Type 2 diabetes mellitus with diabetic chronic kidney disease; N18.6 End stage renal disease; Z79.4 Long term (current) use of insulin; S90.31XA Contusion of right foot, initial encounter; S92.501A Displaced unspecified fracture of right lesser toe(s), initial encounter for closed fracture; R29.6 Repeated falls; X58.XXXA Exposure to other specified factors, initial encounter | CPT/HCPCS: 99215 ==

== ENCOUNTER → 2022-06-21 13:37 | Outpatient (BNVA) | payer MEDICARE, MEDICAID, SELFPAY | PROVIDERS: PCP Internal Medicine; Visit Provider Thoracic Surgery (Cardiothoracic Vascular Surgery) | DX: I96 Gangrene, not elsewhere classified (principal); E11.621 Type 2 diabetes mellitus with foot ulcer; L97.412 Non-pressure chronic ulcer of right heel and midfoot with fat layer exposed | CPT/HCPCS: 97597; 99213; A6021 ==

== ENCOUNTER → 2022-06-29 14:08 | Outpatient (BNVA) | payer MEDICARE, MEDICAID, SELFPAY | PROVIDERS: PCP Internal Medicine; Visit Provider Podiatrist Foot & Ankle Surgery | DX: S90.31XD Contusion of right foot, subsequent encounter (principal); S92.501D Displaced unspecified fracture of right lesser toe(s), subsequent encounter for fracture with routine healing; E11.8 Type 2 diabetes mellitus with unspecified complications; N18.6 End stage renal disease; E11.22 Type 2 diabetes mellitus with diabetic chronic kidney disease; Z79.4 Long term (current) use of insulin; R29.6 Repeated falls; X58.XXXD Exposure to other specified factors, subsequent encounter | CPT/HCPCS: 73630; 99213 ==

== ENCOUNTER → 2022-07-07 13:45 | Outpatient (BNVA) | payer MEDICARE, MEDICAID, SELFPAY | PROVIDERS: PCP Internal Medicine; Visit Provider Thoracic Surgery (Cardiothoracic Vascular Surgery) | DX: Z09 Encounter for follow-up examination after completed treatment for conditions other than malignant neoplasm (principal) | CPT/HCPCS: 99212 ==

== ENCOUNTER 2022-07-14 05:55 | Emergency (ER) | payer MEDICARE, MEDICAID, SELFPAY ==
--- NOTE | 2022-07-14 05:59 | W.ED.SOB ---
HPI - SOB/Dyspnea General: Chief Complaint: Shortness of Breath/Dyspnea Stated Complaint: SOB, sent by dialysis Time Seen by Provider: 07/14/22 05:57 History of Present Illness: HPI Narrative: Ms. Kaiser is a 56-year-old lady with complex past medical history including end-stage renal disease on hemodialysis presenting to the emergency department for shortness of breath. She reports typically sleeping with oxygen however her machine started alarming last night for uncertain reasons. She endorses having shortness of breath started today. She was going to go to dialysis however they told her to come to the emergency department. She notes mild congestion however no cough or fevers. Intensity symptoms moderate. Worse with exertion. No other specific changes in health, exacerbating, or alleviating factors identified. Dialysis typically Tuesday, no recent missed dialysis, patient reports full normal run on Tuesday. Onset (ago): hour(s) Timing: constant Severity: moderate Exacerbating factors: exertion Relieving factors: nothing Known history of: other Associated symptoms: Reports no associated symptoms Review of Systems General: Reports: 10 or more systems reviewed and unremarkable except in HPI and below PFSH ED PFSH: Medical History Anxiety Appetite loss Chronic back pain COVID-19 De Quervain's tenosynovitis Diabetes Diabetes type 2, uncontrolled ESRD (end stage renal disease) Hyperlipidemia Hypertension Hypothyroidism Insulin dependent type 2 diabetes mellitus Left foot pain Long-term insulin use MCI (mild cognitive impairment) Psychiatric care Rash Seropositive rheumatoid arthritis Surgical History H/O section H/O dilation and curettage H/O neck surgery fusion History of appendectomy History of carpal tunnel repair History of temporal artery biopsy Hx of cholecystectomy S/P arteriovenous (AV) fistula creation S/P dialysis catheter insertion Removed 07/14/20 Status post colonoscopy Family History Father Bleeding disorder Other Diabetes Heart disease Hyperlipidemia Hypertension Kidney problem Migraines Stroke Denies family history of Anesthesia complication Social History Smoking and tobacco status: never smoked Second hand smoke exposure: No Alcohol intake: never Adopted: No Caregiver/support person: Yes Lives independently: Yes Household members: family Housing: House Marital status: Single Highest education level completed: High School Graduate service: No Current occupational status: disabled Current occupational exposures/hazards: No Pets and animals: Yes Pets & animals: dog(s) Sexually active: No Current gender identity: Female Sabina/Caodaism: Restorationism Special sabina needs: No Agree to transfusion: No Financial difficulty paying for basics: Decline to Answer Physical Exam Const: COMMON NORMALS: alert GENERAL APPEARANCE: cooperative and well developed HENMT: COMMON NORMALS: normocephalic and atraumatic HEAD & SCALP: normocephalic and atraumatic Eye: COMMON NORMALS: conjunctivae normal CONJUNCTIVA: Yes conjunctivae normal SCLERA: sclerae normal Neck/C-Spine: COMMON NORMALS: supple GENERAL: Yes trachea midline Resp: COMMON NORMALS: normal respiratory effort and clear to auscultation bilaterally EFFORT & INSPECTION: Yes able to speak in complete sentences AUSCULTATION: clear to auscultation bilaterally Cardio: COMMON NORMALS: regular rhythm RATE: tachycardic RHYTHM: regular rhythm GI: COMMON NORMALS: Soft to palpation PALPATION: Yes Soft to palpation, No Tenderness to palpation present (GI), No Guarding due to palpation present (GI) and No Rigid due to palpation Extremity: GENERAL: Yes normal exam except as noted and No edema Neuro: COMMON NORMALS: moves all extremities SENSORIUM/ORIENTATION: Yes alert and No Orientation impaired Psych: COMMON NORMALS: mental status grossly normal and Normal thought process present THOUGHT PROCESS: Normal thought process present Course Vital Signs: Vital signs: Vital Signs Temperature 97.7 F 07/14/22 06:12 Pulse Rate 105 H 07/14/22 07:10 Respiratory Rate 19 H 07/14/22 06:12 Blood Pressure 168/78 07/14/22 07:10 Pulse Oximetry 96 07/14/22 06:12 Oxygen Delivery Me thod Room Air 07/14/22 06:12 MDM - SOB/Dyspnea Medical Decision Making 56-year-old lady presenting to the emergency department for shortness of breath. She reports that her home oxygen generator stopped functioning last night and she was anxious when she went to dialysis and was referred to the ER for further evaluation. Patient is initially hypertensive and tachycardic though nontoxic in appearance. She denies infectious symptoms. She is not requiring supplemental oxygen. EKG demonstrates sinus tachycardia, left axis deviation, nonspecific ST segment abnormalities, no STEMI. Labs with no leukocytosis, normocytic anemia, normal platelet count. Metabolic panel with mild hyponatremia and hypochloremia. Potassium is normal. Calcium is elevated though patient's symptomatology is not consistent with derangement secondary to hypercalcemia. BNP is elevated well above baseline. COVID-negative. Chest x-ray appears somewhat improved from prior though residual left sided likely pleural effusion is still present. Ultimately I believe that the patient will benefit from her routine dialysis and continued management in the outpatient setting. Dialysis makeup appt at 1155 today. Patient reports that she will be able to make this. Additionally, she plans to call [facility] regarding oxygen generator. The results of ED evaluation were discussed with the patient including prescriptions and/or symptomatic cares (if applicable) including appropriate and responsible use, followup plan, and return precautions. The patient verbalized understanding and felt safe for discharge. Medical Records I reviewed the patient's medical records. Lab Data I reviewed the patient's lab results. 07/14/22 06:30 07/14/22 07:40 Labs/Radiology: Radiology Impressions Chest X-Ray 07/14/22 06:07 IMPRESSION: Improvement in the left chest compared to the previous examination as above. No new finding identified. Laboratory Results WBC 5.0 10^3/uL (4.0-10.0) 07/14/22 06:30 RBC 3.82 10^6/uL (4.1-5.3) L 07/14/22 06:30 Hgb 10.9 g/dL (11.5-15.3) L 07/14/22 06:30 Hct 36.7 % (37.0-47.0) L 07/14/22 06:30 MCV 96.1 fl (81-99) 07/14/22 06:30 MCH 28.5 pg (28.0-34.0) 07/14/22 06:30 MCHC 29.7 g/dL (30.0-36.0) L 07/14/22 06:30 RDW 16.5 % (12.1-15.1) H 07/14/22 06:30 Plt Count 267 10^3/cmm (130-400) 07/14/22 06:30 MPV 10.3 fL (7.4-10.4) 07/14/22 06:30 Neut % (Auto) 74.6 % 07/14/22 06:30 Lymph % (Auto) 14.5 % 07/14/22 06:30 [place] % (Auto) 10.5 % 07/14/22 06:30 Eos % (Auto) 0.0 % 07/14/22 06:30 Baso % (Auto) 0.2 % 07/14/22 06:30 Neut # (Auto) 3.75 10^3/uL (1.8-7.7) 07/14/22 06:30 Lymph # (Auto) 0.7 10^3/uL (0.8-4.8) L 07/14/22 06:30 [place] # (Auto) 0.5 10^3/uL (0.2-0.9) 07/14/22 06:30 Eos # (Auto) 0.0 10^3/uL (0.0-0.8) 07/14/22 06:30 Baso # (Auto) 0.0 10^3/uL (0.0-0.1) 07/14/22 06:30 Nucleated RBC % (auto) 0 % 07/14/22 06:30 Nucleated RBCs # 0.0 /100WBC 07/14/22 06:30 Sodium 133 mmol/L (136-145) L 07/14/22 07:40 Potassium 4.5 mmol/L (3.5-5.1) 07/14/22 07:40 Chloride 91 mmol/L (98-107) L 07/14/22 07:40 Carbon Dioxide 29 mmol/L (22-29) 07/14/22 07:40 Anion Gap 17.5 (5-19) 07/14/22 07:40 BUN 22 mg/dL (6-20) H 07/14/22 07:40 Creatinine 4.6 mg/dL (0.5-0.9) H 07/14/22 07:40 GFR Calculation 9.8 mL/min (90-130) L 07/14/22 07:40 Glucose 179 mg/dL (65-115) H 07/14/22 07:40 Calculated Osmolality 284 mOsm/kg (285-295) L 07/14/22 07:40 Calcium 12.3 mg/dL (8.5-10.5) H 07/14/22 07:40 Total Bilirubin 0.3 mg/dL (0.15-1.2) 07/14/22 07:40 AST 15 U/L (0-32) 07/14/22 07:40 ALT 6 U/L (0-33) 07/14/22 07:40 Alkaline Phosphatase 65 U/L (35-105) 07/14/22 07:40 NT-Pro-B Natriuret Pep 14273 pg/mL (0-125) H 07/14/22 07:40 Total Protein 7.1 g/dL (6.6-8.7) 07/14/22 07:40 Albumin 3.4 g/dL (3.5-5.2) L 07/14/22 07:40 Globulin 3.7 g/dL (1.3-4.6) 07/14/22 07:40 SARS-CoV-2 Ag (Rapid) negative (Negative) 07/14/22 06:28 Discharge Plan Discharge Patient Disposition: Home Clinical Impression: Shortness of breath, Tachycardia, End-stage renal disease needing dialysis, Hypercalcemia Condition: Stable Prescriptions: No Action escitalopram oxalate [Lexapro] 20 mg tablet 40 mg PO DAILY@0800 atorvastatin 80 mg tablet 80 mg PO DAILY Tresiba U-100 Insulin 100 unit/mL solution 60 unit SUBCUT DAILY@0800 Novolog FlexPen U-100 Insulin 100 unit/mL (3 mL) insulin pen 15 unit SUBCUT TID@0800,1200,2000 RenaPlex-D 800 mcg-12.5 mg -2,000 unit tablet 1 tab PO DAILY@2000 (DME) Dexcom G6 Sanitation Truck Cleaner Misc See Rx Instructions .Route Qty: 1 0RF Rx Instructions: Check BS continuously (DME) Dexcom G6 Sensor Device See Rx Instructions .Route Qty: 9 3RF Rx Instructions: Change every 10 days. (DME) Dexcom G6 Transmitter Device See Rx Instructions .Route Qty: 3 3RF Rx Instructions: Change every 90 days. Glucagon Emergency Kit (human) 1 mg recon soln 1 mg SUBCUT Q20M PRN (Reason: hypoglycemia) Qty: 1 3RF Rx Instructions: until target blood sugar attained gabapentin 100 mg capsule 100 mg PO TID prednisone 5 mg tablet See Rx Instructions PO DAILY Qty: 60 2RF Rx Instructions: 15mg po qday x 5 days , then 10mg po qday orally daily; prednisone 5 mg tablet 5 mg PO DAILY Qty: 90 0RF prednisone 2.5 mg tablet See Rx Instructions PO DAILY Qty: 30 0RF Rx Instructions: take 3 daily for one month orally daily; tramadol 50 mg tablet 50 mg PO Q6H PRN (Reason: pain) 7 Days Qty: 28 0RF mupirocin 2 % ointment 1 applic topical BID Qty: 22 1RF Rx Instructions: apply to affected area twice daily until healed diphenhydramine HCl [Benadryl] 25 mg Capsule 25 mg PO BEDTIME@2000 pramipexole [Mirapex] 0.125 mg Tablet 0.125 mg PO DAILY@0800 carbidopa-levodopa 25-100 mg tablet See Rx Instructions .ROUTE .COMPLEX Rx Instructions: 0.5 tab orally BEFORE DIALYSIS Auryxia 210 mg iron tablet 630 mg PO TID@08,12,20 Rx Instructions: TAKE WITH MEALS cetirizine [Zyrtec] 10 mg tablet 20 mg PO DAILY@0800 ropinirole 0.5 mg tablet 0.5 mg PO DAILY@2000 clopidogrel 75 mg tablet 75 mg PO DAILY Qty: 30 0RF atorvastatin 40 mg Tablet 80 mg PO DAILY Qty: 90 2RF clopidogrel 75 mg Tablet 75 mg PO DAILY Qty: 120 3RF metoprolol tartrate 25 mg Tablet 12.5 mg PO BID@0900,2100 Qty: 60 3RF Discharge Orders: Discharge ED (Routine); Ordered 07/14/22 Ordered By: Abebe Collins Referrals: Vivienne Schulz MD [Primary Care Provider] - Discharge Diet: Usual diet Discharge Activity: Resume usual activity Patient Instructions: Hypercalcemia (ED), Shortness of Breath (ED) Activity Restrictions/Additional Instructions: Thank you for visiting the emergency department. You were seen and evaluated for shortness of breath. The exact cause of your symptoms is unclear though likely related to need for dialysis for volume overload. Given laboratory studies and overall clinical appearance I believe it is reasonable to discharge you to have dialysis today at 1155. Please go to dialysis for this appointment. Return to the emergency department for worsening symptoms or anything else that you are concerned about and feel needs emergency department evaluation. Coding Level of Care Code ED Resort Desk Clerk for Danial Barfield
--- NOTE | 2022-07-14 06:07 | XR_ITS ---
WS: [id number] XR chest 1V portable [id number] REASON FOR EXAM: sob FINDINGS: Compared to the examination of 06/02/2022, there has been moderate clearing of the opacities in the le ft lower lung and the left hemidiaphragm is now identifiable. There also appears to been significant decrease in the presumed left pleural effusion. Residual pleural fluid remains. The right lung remains clear. No new findings or other interval change. XR/XR chest 1V portable [id number] IMPRESSION: Improvement in the left chest compared to the previous examination as above. No new finding identified.
--- NOTE | 2022-07-14 06:08 | ECG_ITS ---
[facility] Test Date: 2022-07-14 Pat Name: Elvi Kaiser Department: Room: Gender: Female Manager Secondary: : 1965 Requested By: Abebe Collins Order Number: [id number] Doug MD: Merced Woods M.D. Measurements Intervals [place] Rate: 108 P: 42 VA: 174 QRS: -21 QRSD: 102 T: 131 QT: 398 QTc: 536 Interpretive Statements SINUS TACHYCARDIA LOW QRS VOLTAGE IN PRECORDIAL LEADS [QRS DEFLECTION < 1.0 mV IN CHEST LEADS] LEFT VENTRICULAR HYPERTROPHY AND ST-T CHANGE [VOLTAGE CRITERIA PLUS ST/T ABNORMALITY] POSSIBLE ANTERIOR MYOCARDIAL INFARCTION , PROBABLY OLD [30 ms Q WAVE IN V3/V4, OR R < 0.2 mV IN V4] Compared to ECG 06/02/2022 14:27:46 Left ventricular hypertrophy now present ST (T wave) deviation now present Myocardial infarct finding still present Electronically Signed On 07-15-2022 0:10:18 CDT by Merced Woods M.D. [email or web address]
[2022-07-14 06:12] VITALS: BP 212/100; PULSE 109; RESP 19; TEMP 36.5; O2SAT 96; BMI 31.4
[2022-07-14 06:29] VITALS: BP 164/83
[2022-07-14 06:42] LABS: Basophils % 0.2 %; Hematocrit 36.7 % (37.0-47.0); Hemoglobin 10.9 g/dL (11.5-15.3); Lymphocytes # 0.7 10^3/uL (0.8-4.8); Lymphocytes % 14.5 %; Mean Corpuscular HGB Conc 29.7 g/dL (30.0-36.0); Mean Corpuscular Hemoglobin 28.5 pg (28.0-34.0); Mean Corpuscular Volume 96.1 fl (81-99); Mean Platelet Volume 10.3 fL (7.4-10.4); Monocytes # 0.5 10^3/uL (0.2-0.9); Monocytes % 10.5 %; Neutrophils # 3.75 10^3/uL (1.8-7.7); Neutrophils % 74.6 %; Nucleated Red Blood Cells % 0 %; Platelet Count 267 10^3/cmm (130-400); Red Blood Count 3.82 10^6/uL (4.1-5.3); Red Cell Distribution Width 16.5 % (12.1-15.1)
[2022-07-14 06:58] LABS: SARS Covid-2 Antigen negative (Negative)
[2022-07-14 07:10] VITALS: BP 168/78; PULSE 105
[2022-07-14 08:22] LABS: Alanine Aminotransferase 6 U/L (0-33); Albumin Level 3.4 g/dL (3.5-5.2); Alkaline Phosphatase 65 U/L (35-105); Anion Gap 17.5 (5-19); Aspartate Amino Transferase 15 U/L (0-32); Blood Urea Nitrogen 22 mg/dL (6-20); Calcium 12.3 mg/dL (8.5-10.5); Carbon Dioxide 29 mmol/L (22-29); Chloride 91 mmol/L (98-107); Globulin 3.7 g/dL (1.3-4.6); Glomerular Filtration Rate 9.8 mL/min (90-130); Glucose 179 mg/dL (65-115); Osmolality Calculated 284 mOsm/kg (285-295); Potassium 4.5 mmol/L (3.5-5.1); Sodium 133 mmol/L (136-145); Total Bilirubin 0.3 mg/dL (0.15-1.2); Total Protein 7.1 g/dL (6.6-8.7)
== END 2022-07-14 09:14 | disposition home or self-care (01) ==
PROVIDERS: Emergency Provider Emergency Medicine; PCP Internal Medicine
DX: R06.02 Shortness of breath (principal); R00.0 Tachycardia, unspecified; E83.52 Hypercalcemia; Z79.4 Long term (current) use of insulin; Z79.02 Long term (current) use of antithrombotics/antiplatelets; Z20.822 Contact with and (suspected) exposure to COVID-19; E11.22 Type 2 diabetes mellitus with diabetic chronic kidney disease; I12.0 Hypertensive chronic kidney disease with stage 5 chronic kidney disease or end stage renal disease; N18.6 End stage renal disease; Z99.2 Dependence on renal dialysis; E78.5 Hyperlipidemia, unspecified
CPT/HCPCS: 71045; 80053; 83880; 85025; 87426; 93005; 99285

== ENCOUNTER → 2022-07-20 13:17 | Outpatient (BNVA) | payer MEDICARE, MEDICAID, SELFPAY | PROVIDERS: PCP Internal Medicine; Visit Provider Podiatrist Foot & Ankle Surgery | DX: S90.31XA Contusion of right foot, initial encounter (principal); N18.6 End stage renal disease; E11.42 Type 2 diabetes mellitus with diabetic polyneuropathy; Z79.4 Long term (current) use of insulin; R29.6 Repeated falls; X58.XXXA Exposure to other specified factors, initial encounter; S92.501A Displaced unspecified fracture of right lesser toe(s), initial encounter for closed fracture | CPT/HCPCS: 73630; 99213 ==

== ENCOUNTER → 2022-08-12 12:58 | Outpatient (BNVA) | payer MEDICARE, MEDICAID, SELFPAY | PROVIDERS: PCP Internal Medicine; Visit Provider Internal Medicine | DX: E11.649 Type 2 diabetes mellitus with hypoglycemia without coma (principal); E11.22 Type 2 diabetes mellitus with diabetic chronic kidney disease; G31.84 Mild cognitive impairment of uncertain or unknown etiology; E16.0 Drug-induced hypoglycemia without coma; T38.3X5A Adverse effect of insulin and oral hypoglycemic [antidiabetic] drugs, initial encounter; E78.5 Hyperlipidemia, unspecified; E03.9 Hypothyroidism, unspecified; N18.6 End stage renal disease; Z79.4 Long term (current) use of insulin; X58.XXXA Exposure to other specified factors, initial encounter; Z79.890 Hormone replacement therapy | CPT/HCPCS: 84439; 84443; 99214 ==

== ENCOUNTER 2022-08-25 14:56 | Outpatient (CLI) | payer MEDICARE, MEDICAID, SELFPAY ==
[2022-09-01 16:34] LABS: PTH Related Peptide (Protein) 62 pg/mL (11-20)
== END 2022-08-25 14:57 | disposition home or self-care (01) ==
LOC: LAB 15:00
PROVIDERS: PCP Internal Medicine; Visit Provider Internal Medicine Nephrology
DX: E83.52 Hypercalcemia (principal)
CPT/HCPCS: 82542

== ENCOUNTER → 2022-09-13 10:54 | Outpatient (BNVA) | payer MEDICARE, MEDICAID, SELFPAY | PROVIDERS: PCP Internal Medicine; Visit Provider Podiatrist Foot & Ankle Surgery | DX: E11.22 Type 2 diabetes mellitus with diabetic chronic kidney disease (principal); L60.8 Other nail disorders; N18.6 End stage renal disease; Z79.4 Long term (current) use of insulin; R29.6 Repeated falls | CPT/HCPCS: 99214 ==

== ENCOUNTER → 2022-09-15 13:20 | Outpatient (BNVA) | payer MEDICARE, MEDICAID, SELFPAY | PROVIDERS: PCP Internal Medicine; Visit Provider Internal Medicine | DX: M05.9 Rheumatoid arthritis with rheumatoid factor, unspecified (principal); R70.0 Elevated erythrocyte sedimentation rate; N18.6 End stage renal disease | CPT/HCPCS: 99213 ==

== ENCOUNTER 2022-09-28 08:07 | Oncology outpatient (recurring) (ONCR) | payer MEDICARE, MEDICAID, SELFPAY ==
[2022-09-28 09:59] LABS: Hematocrit 39.4 % (37.0-47.0); Hemoglobin 11.9 g/dL (11.5-15.3); Lymphocytes # 1.4 10^3/uL (0.8-4.8); Lymphocytes % 22.1 %; Mean Corpuscular HGB Conc 30.2 g/dL (30.0-36.0); Mean Corpuscular Hemoglobin 31.3 pg (28.0-34.0); Mean Corpuscular Volume 103.7 fl (81-99); Monocytes # 0.6 10^3/uL (0.2-0.9); Monocytes % 9.8 %; Neutrophils # 4.29 10^3/uL (1.8-7.7); Neutrophils % 67.8 %; Nucleated Red Blood Cells % 0 %; Platelet Count 244 10^3/cmm (130-400); Red Cell Distribution Width 16.4 % (12.1-15.1); White Blood Count 6.3 10^3/uL (4.0-10.0)
[2022-09-28 10:15] LABS: Alanine Aminotransferase 8 U/L (0-33); Albumin Level 3.9 g/dL (3.5-5.2); Alkaline Phosphatase 69 U/L (35-105); Anion Gap 18.2 (5-19); Aspartate Amino Transferase 15 U/L (0-32); Blood Urea Nitrogen 44 mg/dL (6-20); Carbon Dioxide 29 mmol/L (22-29); Chloride 96 mmol/L (98-107); Globulin 3.8 g/dL (1.3-4.6); Glomerular Filtration Rate 8.7 mL/min (90-130); Glucose 128 mg/dL (65-115); Osmolality Calculated 297 mOsm/kg (285-295); Potassium 6.2 mmol/L (3.5-5.1); Sodium 137 mmol/L (136-145); Total Bilirubin 0.3 mg/dL (0.15-1.2); Total Protein 7.7 g/dL (6.6-8.7)
[2022-09-28 11:01] LABS: Immunoglobulin IGA 398 mg/dL (70-400); Immunoglobulin IGG 1529 mg/dL (700-1600); Immunoglobulin IGM 107 mg/dL (40-230)
[2022-09-29 09:14] LABS: PROTEIN, TOTAL 7.2 g/dL (6.1-8.1)
[2022-09-29 12:48] LABS: ALBUMIN 3.8 g/dL (3.8-4.8); ALPHA 1 GLOBULIN 0.3 g/dL (0.2-0.3); ALPHA 2 GLOBULIN 0.8 g/dL (0.5-0.9); BETA 1 GLOBULIN 0.3 g/dL (0.4-0.6); BETA 2 GLOBULIN 0.5 g/dL (0.2-0.5); GAMMA GLOBULIN 1.5 g/dL (0.8-1.7); KAPPA LIGHT CHAIN, FREE, SERUM 192.3 mg/L (3.3-19.4); KAPPA/LAMBDA LIGHT CHAINS FREE 1.18 (0.26-1.65)
== END 2022-10-08 23:59 | disposition home or self-care (01) ==
PROVIDERS: PCP Internal Medicine; Visit Provider Internal Medicine Medical Oncology
DX: E11.22 Type 2 diabetes mellitus with diabetic chronic kidney disease (principal); N18.6 End stage renal disease; Z99.2 Dependence on renal dialysis; E83.52 Hypercalcemia; Z79.899 Other long term (current) drug therapy; Z79.4 Long term (current) use of insulin
CPT/HCPCS: 36415; 80053; 82784; 83883; 84155; 84165; 85025; 86334; 99204

== ENCOUNTER → 2022-10-05 14:03 | Outpatient (BNVA) | payer MEDICARE, MEDICAID, SELFPAY | PROVIDERS: PCP Internal Medicine; Visit Provider Dermatology | DX: L81.7 Pigmented purpuric dermatosis (principal); L81.4 Other melanin hyperpigmentation; I83.10 Varicose veins of unspecified lower extremity with inflammation; D18.01 Hemangioma of skin and subcutaneous tissue | CPT/HCPCS: 99203 ==

== ENCOUNTER 2022-10-13 13:32 | Oncology outpatient (recurring) (ONCR) | payer MEDICARE, MEDICAID, SELFPAY | END 2022-10-13 23:59 | disposition home or self-care (01) | PROVIDERS: PCP Internal Medicine; Visit Provider Internal Medicine Medical Oncology | DX: E83.52 Hypercalcemia (principal); N18.6 End stage renal disease; Z99.2 Dependence on renal dialysis; E11.22 Type 2 diabetes mellitus with diabetic chronic kidney disease; Z79.4 Long term (current) use of insulin | CPT/HCPCS: 99213 ==

== ENCOUNTER → 2022-11-15 13:04 | Outpatient (BNVA) | payer MEDICARE, MEDICAID, SELFPAY | PROVIDERS: PCP Internal Medicine; Visit Provider Podiatrist Foot & Ankle Surgery | DX: L60.8 Other nail disorders (principal); N18.6 End stage renal disease; Z79.4 Long term (current) use of insulin; R29.6 Repeated falls; L97.421 Non-pressure chronic ulcer of left heel and midfoot limited to breakdown of skin; E11.621 Type 2 diabetes mellitus with foot ulcer; E11.22 Type 2 diabetes mellitus with diabetic chronic kidney disease | CPT/HCPCS: 99214 ==

== ENCOUNTER → 2022-11-25 14:55 | Outpatient (BNVA) | payer MEDICARE, MEDICAID, SELFPAY | PROVIDERS: PCP Internal Medicine; Visit Provider Nurse Practitioner Family | DX: L81.7 Pigmented purpuric dermatosis (principal); L81.4 Other melanin hyperpigmentation; I83.10 Varicose veins of unspecified lower extremity with inflammation; D22.5 Melanocytic nevi of trunk | CPT/HCPCS: 99213 ==

== ENCOUNTER → 2022-12-22 14:50 | Outpatient (BNVA) | payer MEDICARE, MEDICAID, SELFPAY | PROVIDERS: PCP Internal Medicine; Visit Provider Internal Medicine | DX: M05.9 Rheumatoid arthritis with rheumatoid factor, unspecified (principal); R70.0 Elevated erythrocyte sedimentation rate; N18.6 End stage renal disease | CPT/HCPCS: 99214 ==

== ENCOUNTER → 2023-01-17 10:42 | Outpatient (BNVA) | payer MEDICARE, MEDICAID, SELFPAY | PROVIDERS: PCP Internal Medicine; Visit Provider Podiatrist Foot & Ankle Surgery | DX: N18.6 End stage renal disease (principal); Z79.4 Long term (current) use of insulin; L60.3 Nail dystrophy; E11.22 Type 2 diabetes mellitus with diabetic chronic kidney disease | CPT/HCPCS: 11721 ==

== ENCOUNTER 2023-03-14 14:14 | Outpatient (CLI) | payer MEDICARE, MEDICAID, SELFPAY ==
--- NOTE | 2023-03-14 14:18 | MM_ITS ---
WS: [id number] BILATERAL 3D TOMOSYNTHESIS DIGITAL SCREENING MAMMOGRAPHY WITH CAD CLINICAL INFORMATION: SCREENING HISTORY: Screening mammogram. No current complaints. COMPARISON: 2021 TECHNIQUE: Bilateral CC and MLO views. FINDINGS: Scattered fibroglandular densities bilaterally. No suspicious focal mass, asymmetry, calcifications, or architectural distortion. No evidence of malignancy. Extensive vascular calcifications. IMPRESSION: MM/[place] [id number] BI-RADS: 2-Benign FOLLOW UP: 1 Year Follow-up Recommend return to annual screening mammography.
== END 2023-03-14 14:15 | disposition home or self-care (01) ==
LOC: RAD 14:14
PROVIDERS: PCP Internal Medicine; Visit Provider Internal Medicine
DX: Z12.31 Encounter for screening mammogram for malignant neoplasm of breast (principal)
CPT/HCPCS: 77063; 77067

== ENCOUNTER → 2023-04-21 11:10 | Outpatient (BNVA) | payer MEDICARE, MEDICAID, SELFPAY | PROVIDERS: PCP Internal Medicine; Visit Provider Internal Medicine | DX: M05.9 Rheumatoid arthritis with rheumatoid factor, unspecified (principal); R70.0 Elevated erythrocyte sedimentation rate; N18.6 End stage renal disease | CPT/HCPCS: 99213 ==

== ENCOUNTER 2023-05-05 09:04 | Outpatient (CLI) | payer MEDICARE, MEDICAID, SELFPAY ==
--- NOTE | 2023-05-05 09:09 | US_ITS ---
WS: [id number] Complete ABDOMINAL ULTRASOUND HISTORY: RUQ PAIN COMPARISON: Renal ultrasound 03/17/2016 Liver: 16.0 cm in length. Normal size liver and echogenicity. No bile duct dilatation or mass. Portal Vein: Normal hepatopetal flow with monophasic waveform. Gallbladder: Prior cholecystectomy. CBD: 0.5 cm Pancreas: Poorly visualized. Right kidney: 8.5 cm x 4.1 x 4.0 cm. Cortex: 0.6 cm. Moderate renal atrophy. There is diffuse cortical thinning. Numerous foci in the kidney consistent wi th calcifications. Distribution suggest nephrocalcinosis. No obstruction. No mass. Left kidney: 8.7 cm x 4.1 cm x 4.3 cm. Cortex: 0.7 cm. Moderate renal atrophy. Numerous calcific densities in the renal medullary probably from nephrocalcin osis. No obstruction. Spleen: Not visualized. Aorta and IVC: Poorly visualized. Impression: 1. Difficult abdominal ultrasound due to body habitus. 2. Prior cholecystectomy. 3. Bilateral moderate renal atrophy with nephrocalcinosis. New finding since 2015. 4. Poorly visualized pancreas and spleen.
== END 2023-05-05 09:05 | disposition home or self-care (01) ==
PROVIDERS: PCP Internal Medicine; Visit Provider Internal Medicine Nephrology
DX: R10.11 Right upper quadrant pain (principal); Z90.49 Acquired absence of other specified parts of digestive tract; E83.59 Other disorders of calcium metabolism; N29 Other disorders of kidney and ureter in diseases classified elsewhere
CPT/HCPCS: 76700

== ENCOUNTER → 2023-05-10 10:20 | Outpatient (BNVA) | payer MEDICARE, MEDICAID, SELFPAY | PROVIDERS: PCP Internal Medicine; Visit Provider Podiatrist Foot & Ankle Surgery | DX: N18.6 End stage renal disease (principal); Z79.4 Long term (current) use of insulin; L60.3 Nail dystrophy; E11.29 Type 2 diabetes mellitus with other diabetic kidney complication; S91.201D Unspecified open wound of right great toe with damage to nail, subsequent encounter; X58.XXXD Exposure to other specified factors, subsequent encounter | CPT/HCPCS: 11721; 99213 ==

== ENCOUNTER 2023-07-21 17:00 | Outpatient (CLI) | payer MEDICARE, MEDICAID, SELFPAY ==
--- NOTE | 2023-07-21 17:07 | CT_ITS ---
WS: [id number] CT HEAD NONCONTRAST HISTORY: HEADACHE, UNSPECIFIED TECHNIQUE: Contiguous axial imaging performed through the brain in 2.5 mm imaging. Bone and soft tiss ue windows. Sagittal and coronal reformats reviewed. All CT scans at [facility] use at least one of these dose optimization techniques: automated exposure control; mA and/or kV adjustment per pa tient size (includes targeted exams where dose is matched to clinical indication); or iterative recon struction. DLP: 934.15 mGy.cm COMPARISON: 06/02/2022 Reidentified is a chronic infarct in the RIGHT frontal and parietal lobes with encephalomalacia. Asso ciated coarse cortical calcifications noted in the distribution of the infarct. There is no midline s hift. Mild ex vacuo dilatation of the adjacent lateral ventricle. There is adjacent decreased attenua tion in the white matter which has probably not changed. No new infarct. Otherwise there is mild volu me loss and atrophy. No additional infarcts. Ventricles: Ventricles remain unchanged in size with mild ex vacuo dilatation of the RIGHT lateral ve ntricle due to the adjacent infarct. Paranasal sinuses: As visualized are clear. Mastoid air cells: Well pneumatized. Calvarium and scalp: Skull is intact with no soft tissue edema or swelling. IMPRESSION: 1. No acute intracranial hemorrhage or edema. 2. Large remote infarct with encephalomalacia and cortical calcifications in the RIGHT posterior fro ntal and parietal lobes. 3. Otherwise mild cerebral atrophy and small vessel ischemic disease. No interval change.
== END 2023-07-21 17:01 | disposition home or self-care (01) ==
LOC: RAD 17:00
PROVIDERS: PCP Internal Medicine; Visit Provider Nurse Practitioner Family
DX: R51.9 Headache, unspecified (principal); R42 Dizziness and giddiness
CPT/HCPCS: 70450

== ENCOUNTER 2023-08-24 06:52 | Emergency (ER) | payer MEDICARE, MEDICAID, SELFPAY ==
[2023-08-24 06:54] VITALS: BP 122/66; PULSE 71; RESP 16; TEMP 36.6; O2SAT 97; BMI 39.8
--- NOTE | 2023-08-24 07:05 | CTR_ITS ---
PROCEDURE INFORMATION: Exam: CT Maxillofacial Without Contrast Exam date and time: 08/24/2023 7:14 AM Age: 57 years old Clinical indication: Injury or trauma; Fall; Blunt trauma (contusions or hematomas); Forehead TECHNIQUE: Imaging protocol: Computed tomography of the face without contrast. Radiation optimization: All CT scans at this facility use at least one of these dose optimization techniques: automated exposure control; mA and/or kV adjustment per patient size (includes targeted exams where dose is matched to clinical indication); or iterative reconstruction. COMPARISON: CT facial bones wo con* [id number] 10/22/2021 6:48 AM RADIATION DOSE METRICS: Total DLP (mGy-cm): 555.18 FINDINGS: Orbital cavities: Orbits are normal. Globes are unremarkable. Bones: Partially evaluated anterior cervical spine hardware, no evidence for acute surgical complication. Paranasal sinuses: Normal. No air-fluid levels. Soft tissues: Midline right forehead contusion. Vasculature: Severe calcified atherosclerotic disease. Dental: Absent dentition. CT/CT facial bones wo con* [id number] IMPRESSION: 1. No acute or aggressive osseous abnormality. 2. Midline right forehead contusion. 3. Additional findings as above.
--- NOTE | 2023-08-24 07:05 | XRR_ITS ---
PROCEDURE INFORMATION: Exam: XR Cervical Spine Exam date and time: 08/24/2023 7:17 AM Age: 57 years old Clinical indication: Injury or trauma; Fall; Blunt trauma TECHNIQUE: Imaging protocol: Radiologic exam of the cervical spine. Views: 2 or 3 views. COMPARISON: CT cervical spin wo con* [id number] 10/22/2021 6:51 AM FINDINGS: Bones/joints: Anterior cervical spine fusion hardware without evidence for acute surgical complication. Diffuse degenerative change of the visualized osseous structures. Soft tissues: Unremarkable. Other findings: Absent dentition. XR/XR cervical spine 3V* [id number] IMPRESSION: 1. No evidence for acute osseous abnormality. 2. Additional findings as above.
--- NOTE | 2023-08-24 07:29 | CTR_ITS ---
PROCEDURE INFORMATION: Exam: CT Head Without Contrast Exam date and time: 08/24/2023 7:31 AM Age: 57 years old Clinical indication: Injury or trauma; Fall; Blunt trauma (contusions or hematomas); Prior surgery; Surgery date: 6+ months; Surgery type: C spine TECHNIQUE: Imaging protocol: Computed tomography of the head without contrast. Radiation optimization: All CT scans at this facility use at least one of these dose optimization techniques: automated exposure control; mA and/or kV adjustment per patient size (includes targeted exams where dose is matched to clinical indication); or iterative reconstruction. COMPARISON: CT head wo con* [id number] 07/21/2023 5:30 PM RADIATION DOSE METRICS: Total DLP (mGy-cm): 333.5 FINDINGS: Brain: Stable right parietal regions of cortical necrosis with surrounding encephalomalacia changes. Pineal gland calcifications. Cerebral ventricles: No ventriculomegaly. Pituitary gland and sella: Partially empty sella, in isolation of likely little clinical consequence. Paranasal sinuses: Visualized sinuses are unremarkable. No fluid levels. Mastoid air cells: Visualized mastoid air cells are well aerated. Bones: Unremarkable. No acute fracture. Soft tissues: Mild thickening of the midline forehead soft tissues. Vasculature: Severe calcified atherosclerotic disease. Other findings: Ex vacuo dilation of the right ventricle. CT/CT head wo con* [id number] IMPRESSION: 1. No acute intracranial findings. 2. Right midline forehead contusion. Correlate with physical exam. 3. Stable findings as above.
--- NOTE | 2023-08-24 07:29 | CTR_ITS ---
PROCEDURE INFORMATION: Exam: CT Cervical Spine Without Contrast Exam date and time: 08/24/2023 7:31 AM Age: 57 years old Clinical indication: Injury or trauma; Fall; Blunt trauma TECHNIQUE: Imaging protocol: Computed tomography of the cervical spine without contrast. Radiation optimization: All CT scans at this facility use at least one of these dose optimization techniques: automated exposure control; mA and/or kV adjustment per patient size (includes targeted exams where dose is matched to clinical indication); or iterative reconstruction. COMPARISON: CT cervical spin wo con* [id number] 10/22/2021 6:51 AM RADIATION DOSE METRICS: Total DLP (mGy-cm): 333.5 FINDINGS: Bones: Anterior spinal fusion hardware, without evidence for acute surgical complication. Diffuse degenerative change of the visualized osseous structures. Lungs: Lung apices are normal. Vasculature: Calcified atherosclerotic disease, moderate to severe. Soft tissues: Unremarkable. Other findings: Additional findings as above. CT/CT cervical spin wo con* [id number] IMPRESSION: No acute or aggressive osseous abnormality.
--- NOTE | 2023-08-24 07:33 | XRR_ITS ---
PROCEDURE INFORMATION: Exam: XR Left Shoulder Exam date and time: 08/24/2023 7:28 AM Age: 57 years old Clinical indication: Injury or trauma; Fall; Blunt trauma (contusions or hematomas); Shoulder; Left TECHNIQUE: Imaging protocol: Radiologic exam of the left shoulder. Views: 2 or more views. COMPARISON: CR XR cervical spine 3V* [id number] 08/24/2023 7:17 AM FINDINGS: Bones/joints: Lateral cortical irregularity which appears to transgress the greater tubercle. Well ossified bodies are appreciated at the insertion of the rotator cuff. Soft tissues: Surgical clips are appreciated throughout the visualized left chest wall. XR/XR shoulder LT min 2V* [id number] IMPRESSION: 1. Suspicion for nondisplaced fracture of the greater tubercle, there is point tenderness, recommend cross-sectional evaluation for further definitive assessment. 2. Suspicion of superior rotator cuff calcific tendinosis/tendinitis.
--- NOTE | 2023-08-24 07:50 | PC.NURSE ---
PATIENT VERBALIZED RIGHT SHOULDER PAIN TO THIS NURSE AND LEFT SHOULDER PAIN TO SECOND NURSE. THIS NURSE WENT TO VERIFY RIGHT OR LEFT SHOULDER PAIN BY POINTING TO WHICH SHOULDER HAD PAIN. PATIENT STATES AND POINTS TO LEFT SHOULDER.
--- NOTE | 2023-08-24 08:00 | W.ED.FALL ---
HPI - Fall General: Chief Complaint: Fall Stated Complaint: FALL Time Seen by Provider: 08/24/23 07:05 Source: patient Mode of arrival: EMS History of Present Illness: 57-year-old female presents emergency room via EMS after falling at home she denies loss consciousness she stumbled discharge to turn around she hit her forehead and her nose she has some bruising in the inferior orbital region. She also complaining of left shoulder pain. No chest pain no shortness of breath no abdominal pain. MD complaint: fall Onset (ago): minute(s) Fall witnessed: yes, by family Place fall occurred: home Loss of consciousness: None Prolonged down time: no Location of injury: head and face Location of injury - extremities: Left: shoulder Associated symptoms-after fall: Denies abdominal pain, chest pain, confusion, difficulty walking, headache(s), hematuria, lightheadedness, neck pain, numbness, short of breath, vertigo or weakness Review of Systems Const: Denies: fever(s) or chills Card: Denies: chest pain or lightheadedness Resp: Denies: dyspnea GI: Denies: abdominal pain : Denies: dysuria, urinary frequency, urinary urgency or hematuria Musc: Denies: neck pain or back pain Skin/Breast: Denies: rash Neuro: Denies: headache(s), difficulty walking, vertigo or confusion PFSH ED PFSH: Medical History Rash Seropositive rheumatoid arthritis Left foot pain Long-term insulin use Diabetes type 2, uncontrolled Appetite loss MCI (mild cognitive impairment) Hypothyroidism Insulin dependent type 2 diabetes mellitus COVID-19 Hypertension Anxiety ESRD (end stage renal disease) Diabetes Hyperlipidemia Chronic back pain De Quervain's tenosynovitis Surgical History Status post colonoscopy S/P dialysis catheter insertion Removed 07/14/20 S/P arteriovenous (AV) fistula creation History of temporal artery biopsy H/O dilation and curettage H/O section Hx of cholecystectomy History of appendectomy History of carpal tunnel repair H/O neck surgery fusion Family History Father Bleeding disorder Other Diabetes Heart disease Hyperlipidemia Hypertension Kidney problem Migraines Stroke Denies family history of Anesthesia complication Social History Smoking and tobacco/nicotine status: never used tobacco/nicotine Second hand smoke exposure: No Alcohol intake: never Substance/Drug Use: never Adopted: No Caregiver/support person: Yes Lives independently: Yes Household members: family Housing: House Marital status: Single Highest education level completed: High School Graduate service: No Current occupational status: disabled Current occupational exposures/hazards: No Pets and animals: Yes Pets & animals: dog(s) Sexually active: No Do you think of yourself as: Straight/Heterosexual Current gender identity: Female Sabina/Jehovah'S Witness: Amish Special sabina needs: No Agree to transfusion: No Physical Exam Const: COMMON NORMALS: no acute distress GENERAL APPEARANCE: cooperative and comfortable ORIENTATION/CONSCIOUSNESS: Yes awake, Yes oriented to person, Yes oriented to place and Yes oriented to time HENMT: COMMON NORMALS: normocephalic, atraumatic and hearing grossly normal bilaterally HEAD & SCALP: normocephalic and atraumatic Resp: COMMON NORMALS: normal respiratory effort, No retractions, No use of accessory muscles and clear to auscultation bilaterally AUSCULTATION: clear to auscultation bilaterally Cardio: COMMON NORMALS: regular rate, regular rhythm and No murmurs present (Cardio) RATE: regular rate RHYTHM: regular rhythm GI: COMMON NORMALS: Soft to palpation and No hepatosplenomegaly present AUSCULTATION: Yes normoactive bowel sounds PALPATION: Yes Soft to palpation, No Tenderness to palpation present (GI), No Guarding due to palpation present (GI) and Yes No hepatosplenomegaly present Extremity: COMMON NORMALS: normal to inspection, capillary refill normal, no clubbing, cyanosis or edema, no calf tenderness and no pedal edema Neuro: SENSORIUM/ORIENTATION: Yes oriented to person, Yes oriented to place and Yes oriented to time Skin: COMMON NORMALS: no rashes or lesions noted GENERAL SKIN EXAM: no rashes or lesions noted Course Vital Signs: Vital signs: Vital Signs Temperature 97.9 F 08/24/23 06:54 Pulse Rate 73 08/24/23 08:55 Respiratory Rate 16 08/24/23 10:28 Blood Pressure 141/76 08/24/23 11:40 Pulse Oximetry 100 08/24/23 11:40 Oxygen Delivery Me thod Room Air 08/24/23 06:54 MDM - Fall Medical Decision Making Left greater trochanter fracture. On the CT is a question of whether or not the fracture extends into the head of the humerus. Will place her in a sling no use of the left arm and refer to orthopedics. She has multiple allergies we will have her use Tylenol and ice for pain. Medical Records I reviewed the patient's medical records. Lab Data I reviewed the patient's lab results. Radiology Impressions Cervical Spine X-Ray 08/24/23 07:05 IMPRESSION: 1. No evidence for acute osseous abnormality. 2. Additional findings as above. Face CT 08/24/23 07:05 IMPRESSION: 1. No acute or aggressive osseous abnormality. 2. Midline right forehead contusion. 3. Additional findings as above. Cervical Spine CT 08/24/23 07:29 IMPRESSION: No acute or aggressive osseous abnormality. Head CT 08/24/23 07:29 IMPRESSION: 1. No acute intracranial findings. 2. Right midline forehead contusion. Correlate with physical exam. 3. Stable findings as above. Shoulder X-Ray 08/24/23 07:33 IMPRESSION: 1. Suspicion for nondisplaced fracture of the greater tubercle, there is point tenderness, recommend cross-sectional evaluation for further definitive assessment. 2. Suspicion of superior rotator cuff calcific tendinosis/tendinitis. Shoulder CT 08/24/23 09:49 IMPRESSION: 1. Comminuted and fragmented fracture involving the greater tuberosity as seen on the recent radiograph impaction. Fractures extend into the humeral head. Minimal fracture fragment displacement. 2. Humeral shaft appears intact. 3. Normal glenoid. No dislocation. All radiology interpretation(s) finalized by discharge Discharge Plan Discharge Patient Disposition: Home Clinical Impression: Closed fracture of greater tuberosity of left humerus, Insulin dependent type 2 diabetes mellitus, Hx of completed stroke Condition: Stable Prescriptions: No Action escitalopram oxalate [Lexapro] 20 mg tablet 40 mg PO DAILY@0800 RenaPlex-D 800 mcg-12.5 mg -2,000 unit tablet 1 tab PO DAILY@2000 (DME) Dexcom G6 Integrated Pest Management Technician Misc See Rx Instructions .Route Qty: 1 0RF Rx Instructions: Check BS continuously (DME) Dexcom G6 Sensor Device See Rx Instructions .Route Qty: 9 3RF Rx Instructions: Change every 10 days. gabapentin 100 mg capsule 100 mg PO TID Qty: 90 4RF (DME) Dexcom G6 Transmitter Device See Rx Instructions .Route Qty: 3 3RF Rx Instructions: Change every 90 days. Glucagon Emergency Kit (human) 1 mg recon soln 1 mg SUBCUT Q20M PRN (Reason: hypoglycemia) Qty: 1 3RF Rx Instructions: until target blood sugar attained amlodipine [Norvasc] 2.5 mg tablet 2.5 mg PO DAILY diphenhydramine HCl [Benadryl] 25 mg Capsule 25 mg PO BEDTIME@1999 carbidopa-levodopa 25-100 mg tablet See Rx Instructions .ROUTE .COMPLEX Rx Instructions: 0.5 tab orally BEFORE DIALYSIS Auryxia 210 mg iron tablet 630 mg PO TID@08,12, Rx Instructions: TAKE WITH MEALS ropinirole 0.5 mg tablet 0.5 mg PO DAILY@1999 clopidogrel 75 mg tablet 75 mg PO DAILY Qty: 30 0RF cyclobenzaprine 10 mg tablet 10 mg PO Q8H PRN (Reason: MUSCLE SPASMS) metoprolol succinate 50 mg tablet extended release 24 hr 50 mg PO DAILY levothyroxine 50 mcg tablet 50 mcg PO DAILY rosuvastatin 20 mg tablet 20 mg PO BEDTIME mupirocin 2 % ointment 1 applic topical TID PRN (Reason: Skin Irritation) prednisone 5 mg tablet 5 mg PO DAILY PRN (Reason: Allergic Reaction) Discharge Orders: Discharge ED (Routine); Ordered 08/24/23 Ordered By: Jd Mejía Referrals: Vivienne Schulz MD [Primary Care Provider] - Discharge Diet: Usual diet Discharge Activity: Resume usual activity Patient Instructions: Opioid Safety, Pain Management Activity Restrictions/Additional Instructions: Thank you for choosing [facility] for your healthcare needs today. Please realize this is an emergency room and that we are providing you with a medical screening exam and this may not be complete and all inclusive of all the testing and or work up that you may need to determine your ailment or severity of your illness. It is very important that you follow up as instructed or that you return to the Emergency Department should you have concerns or if your condition changes or worsens in any way. You have a fracture of the greater tubercle of the humerus. It does not affect the overall structure at or integrity of the bone but will cause discomfort with movement. Recommend you leave your arm in a sling use Tylenol for pain can also use ice. Case management make arrangements for you to follow-up with orthopedics Coding Level of Care Code ED Technical Support Analyst for Danial Barfield
--- NOTE | 2023-08-24 08:22 | PC.PHAR ---
QUESTIONS ON 4 MEDICATIONS. WILL CALL PHARMACY WHEN THEY OPEN AT 9AM TO VERIFY. IN THE MEANTIME, MEDICATION ENTERED PER PT AND HELPER.
[2023-08-24 08:55] VITALS: PULSE 73; O2SAT 98
--- NOTE | 2023-08-24 09:49 | CT_ITS ---
WS: [id number] Noncontrast CT LEFT SHOULDER TECHNIQUE: Noncontrast CT LEFT shoulder with coronal and sagittal reformatted images. CLINICAL INFORMATION: trauma/pain - abnormal plain film DLP: 855.[address] scans at [facility] use at least one of these dose optimization techniques: automated e xposure control; mA and/or kV adjustment per patient size (includes targeted exams where dose is matc hed to clinical indication); or iterative reconstruction. FINDINGS: Osteopenia. Comminuted impacted fracture involving the greater tuberosity extending into the humeral head. Minimal associated displacement of the fragments. Humeral shaft remains intact. No dislocation. Glenoid appears intact. Normal acromion and coracoid. Arthritis AC joint. Distal clav icle appears intact. Scapula appears intact. Partially visualized LEFT lung appears well aerated. Aor tic calcification. Associated soft tissue hematoma. Coronary calcification. CT/CT shoulder LT wo con* [id number] IMPRESSION: 1. Comminuted and fragmented fracture involving the greater tuberosity as seen on the recent radiograph impaction. Fractures extend into the humeral head. Mi nimal fracture fragment displacement. 2. Humeral shaft appears intact. 3. Normal glenoid. No dislocation.
[2023-08-24 10:28] VITALS: RESP 16; O2SAT 98
[2023-08-24] MEDS: morphine 4 mg/mL SDV 1 mL 2 MG IVP (10:28)
[2023-08-24] MEDS: acetaminophen 500 mg Tablet 1000 MG PO (10:28)
[2023-08-24 11:20] VITALS: BP 141/76; O2SAT 100
[2023-08-24 11:40] VITALS: BP 141/76; O2SAT 100
--- NOTE | 2023-08-25 17:24 | DCPLANNER ---
messaged ortho with er f/u referral
--- NOTE | 2023-08-29 06:10 | DCPLANNER ---
Message sent to ortho for follow up l greater tubercle fracture humerus.
== END 2023-08-24 11:47 | disposition home or self-care (01) ==
PROVIDERS: Emergency Provider Family Medicine; PCP Internal Medicine
DX: S42.252A Displaced fracture of greater tuberosity of left humerus, initial encounter for closed fracture (principal); Z86.73 Personal history of transient ischemic attack (TIA), and cerebral infarction without residual deficits; Z79.4 Long term (current) use of insulin; Z79.02 Long term (current) use of antithrombotics/antiplatelets; E11.22 Type 2 diabetes mellitus with diabetic chronic kidney disease; I12.0 Hypertensive chronic kidney disease with stage 5 chronic kidney disease or end stage renal disease; N18.6 End stage renal disease; E78.5 Hyperlipidemia, unspecified; W19.XXXA Unspecified fall, initial encounter
CPT/HCPCS: 70450; 70486; 72040; 72125; 73030; 73200; 96374; 99285; J2270

== ENCOUNTER 2023-09-04 07:09 | Emergency (ER) | payer MEDICARE, MEDICAID, SELFPAY ==
[2023-09-04 07:10] VITALS: BP 134/69; PULSE 98; RESP 17; TEMP 36.8; O2SAT 96; BMI 37.8
--- NOTE | 2023-09-04 07:11 | XRR_ITS ---
PROCEDURE INFORMATION: Exam: XR Left Shoulder Exam date and time: 09/04/2023 7:18 AM Age: 57 years old Clinical indication: Pain; Shoulder; Left TECHNIQUE: Imaging protocol: Radiologic exam of the left shoulder. Views: 2 or more views. COMPARISON: CR XR shoulder LT min 2V* [id number] 08/24/2023 7:28 AM FINDINGS: Bones/joints: Bones are osteopenic. There is an impacted comminuted fracture of the humeral neck and greater tuberosity. The joint spaces are preserved. Cervical fixation hardware is incompletely imaged. Soft tissues: Normal. XR/XR shoulder LT min 2V* [id number] IMPRESSION: Fracture of the left proximal humerus.
--- NOTE | 2023-09-04 07:19 | W.ED.EXTPRO ---
HPI - Extremity Problem General: Chief complaint: Extremity Injury, Upper Stated complaint: LEFT SHOULDER PAIN Time Seen by Provider: 09/04/23 07:10 Source: patient and EMS Mode of arrival: EMS Limitations: no limitations History of Present Illness: 57-year-old female seen here 9 days ago after a fall with a left humerus fracture states she had increased pain she denies any new injuries rates her pain a 8 out of 10 currently pain is worse with movement improved with rest Associated symptoms: Deny chest pain, fever(s) or rash Review of Systems Const: Denies: fever(s), chills, body aches or change in appetite ENMT: Denies: throat pain or dental pain Card: Denies: chest pain Resp: Denies: dyspnea GI: Denies: abdominal pain, nausea, vomiting or diarrhea Musc: Reports: extremity pain; Denies: neck pain or back pain Skin/Breast: Denies: rash Neuro: Denies: headache(s) PFSH ED PFSH: Medical History Rash Seropositive rheumatoid arthritis Left foot pain Long-term insulin use Diabetes type 2, uncontrolled Appetite loss MCI (mild cognitive impairment) Hypothyroidism Insulin dependent type 2 diabetes mellitus COVID-19 Hypertension Anxiety ESRD (end stage renal disease) Diabetes Hyperlipidemia Chronic back pain De Quervain's tenosynovitis Surgical History Status post colonoscopy S/P dialysis catheter insertion Removed 07/14/20 S/P arteriovenous (AV) fistula creation History of temporal artery biopsy H/O dilation and curettage H/O section Hx of cholecystectomy History of appendectomy History of carpal tunnel repair H/O neck surgery fusion Family History Father Bleeding disorder Other Diabetes Heart disease Hyperlipidemia Hypertension Kidney problem Migraines Stroke Denies family history of Anesthesia complication Social History Smoking and tobacco/nicotine status: never used tobacco/nicotine Second hand smoke exposure: No Alcohol intake: never Substance/Drug Use: never Adopted: No Caregiver/support person: Yes Lives independently: Yes Household members: family Housing: House Marital status: Single Highest education level completed: High School Graduate service: No Current occupational status: disabled Current occupational exposures/hazards: No Pets and animals: Yes Pets & animals: dog(s) Sexually active: No Do you think of yourself as: Straight/Heterosexual Current gender identity: Female Sabina/Nondenominational: Latter Day Special sabina needs: No Agree to transfusion: No Physical Exam Const: COMMON NORMALS: no acute distress, patient oriented x3 and healthy appearing HENMT: COMMON NORMALS: normocephalic and atraumatic HEAD & SCALP: normocephalic and atraumatic Eye: COMMON NORMALS: Equal, round and reactive pupils present and EOMs intact bilaterally PUPIL: Yes Equal, round and reactive pupils present Neck/C-Spine: COMMON NORMALS: full ROM and supple Chest: COMMONS NORMALS: normal inspection of the chest Resp: COMMON NORMALS: normal respiratory effort Cardio: COMMON NORMALS: regular rate, regular rhythm and No murmurs present (Cardio) RATE: regular rate RHYTHM: regular rhythm Extremity: COMMON NORMALS: normal to inspection and full ROM NARRATIVE EXTREMITY EXAM: Tenderness over left shoulder distal pulses intact Neuro: COMMON NORMALS: patient oriented x3, moves all extremities and no focal motor deficits Psych: COMMON NORMALS: mental status grossly normal, Normal thought process present and cooperative THOUGHT PROCESS: Normal thought process present Skin: COMMON NORMALS: no rashes or lesions noted and no wounds GENERAL SKIN EXAM: no rashes or lesions noted Course Vital Signs: Vital signs: Vital Signs Temperature 98.2 F 09/04/23 07:10 Pulse Rate 87 09/04/23 08:08 Respiratory Rate 18 09/04/23 08:08 Blood Pressure 134/69 09/04/23 07:10 Pulse Oximetry 89 L 09/04/23 08:08 MDM - Extremity (Nontraumatic) Medical Decision Making Patient presents here with pain from her left proximal humerus fracture did place her in a sling she stable for discharge she is follow-up with orthopedics return if worsening. Medical Records I reviewed the patient's medical records. Lab Data Radiology Impressions Shoulder X-Ray 09/04/23 07:11 IMPRESSION: Fracture of the left proximal humerus. 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 gabapentin 100 mg capsule 100 mg PO TID Qty: 90 4RF (DME) Dexcom G6 Transmitter Device See Rx Instructions .Route Qty: 3 3RF Rx Instructions: Change every 90 days. Glucagon Emergency Kit (human) 1 mg recon soln 1 mg SUBCUT Q20M PRN (Reason: hypoglycemia) Qty: 1 3RF Rx Instructions: until target blood sugar attained amlodipine [Norvasc] 2.5 mg tablet 2.5 mg PO DAILY diphenhydramine HCl [Benadryl] 25 mg Capsule 25 mg PO BEDTIME@1999 carbidopa-levodopa 25-100 mg tablet See Rx Instructions .ROUTE .COMPLEX Rx Instructions: 0.5 tab orally BEFORE DIALYSIS Auryxia 210 mg iron tablet 630 mg PO TID@08,12,20 Rx Instructions: TAKE WITH MEALS ropinirole 0.5 mg tablet 0.5 mg PO DAILY@2000 clopidogrel 75 mg tablet 75 mg PO DAILY Qty: 30 0RF metoprolol succinate 50 mg tablet extended release 24 hr 50 mg PO DAILY levothyroxine 50 mcg tablet 50 mcg PO DAILY rosuvastatin 20 mg tablet 20 mg PO BEDTIME mupirocin 2 % ointment 1 applic topical TID PRN (Reason: Skin Irritation) prednisone 5 mg tablet 5 mg PO DAILY PRN (Reason: Allergic Reaction) Dilaudid 2 mg tablet 2 mg PO Q8H PRN (Reason: pain) Qty: 10 0RF Discharge Orders: Discharge ED (Routine); Ordered 09/04/23 Ordered By: Rebecca Wakefield Referrals: Vivienne Schulz MD [Primary Care Provider] - Otis Kaye DO [Physician] - 1-3 days Discharge Diet: Advance as tolerated Discharge Activity: Resume usual activity Patient Instructions: Arm Fracture in Adults (ED) Coding Level of Care Code ED [employer] Supervisor for Danial Barfield
[2023-09-04 07:28] VITALS: RESP 17; O2SAT 95
[2023-09-04] MEDS: morphine 4 mg/mL SDV 1 mL IM (07:28)
--- NOTE | 2023-09-04 08:05 | PC.NURSE ---
When attempting to discharge patient, patient stated that once she gets home she will be unable to get out of her recliner or take care of herself. I spoke with Dr. Wakefield he asked me to get the patient up and ambulate her and see how she did. The patient usually uses a roller walker so we got one and had her ambulate down the smiley and back and she did fine. I then instructed her that she may need to sit in a different chair than her recliner when she gets home so that she can use her walker to get up and down out of the chair so she can go to the restroom or kitchen. Patient also stated that she was completely out of her pain meds already that she was given on Tuesday, I informed Dr. Wakefiedl and he stated that he would send in another prescription for her.
[2023-09-04 08:08] VITALS: PULSE 87; RESP 18; O2SAT 89
== END 2023-09-04 08:32 | disposition home or self-care (01) ==
PROVIDERS: Emergency Provider Emergency Medicine; PCP Internal Medicine
DX: S42.202A Unspecified fracture of upper end of left humerus, initial encounter for closed fracture (principal); Z79.02 Long term (current) use of antithrombotics/antiplatelets; E11.22 Type 2 diabetes mellitus with diabetic chronic kidney disease; I12.0 Hypertensive chronic kidney disease with stage 5 chronic kidney disease or end stage renal disease; N18.6 End stage renal disease; E78.5 Hyperlipidemia, unspecified; W19.XXXA Unspecified fall, initial encounter
CPT/HCPCS: 73030; 96372; 99284; J2270

== ENCOUNTER 2023-09-05 16:16 | Observation (INO) | payer MEDICARE, MEDICAID, SELFPAY ==
[2023-09-05] VITALS (8 sets, daily range): BP systolic 97–182; BP diastolic 40–102; PULSE 70–92; RESP 16–20; TEMP 36.5–36.7; O2SAT 89–100; BMI 38.0
--- NOTE | 2023-09-05 16:20 | CTR_ITS ---
PROCEDURE INFORMATION: Exam: CT Lumbar Spine Without Contrast Exam date and time: 09/05/2023 5:17 PM Age: 57 years old Clinical indication: Pain and injury or trauma; Fall; Blunt trauma (contusions or hematomas); Low back pain TECHNIQUE: Imaging protocol: Computed tomography of the lumbar spine without contrast. Radiation optimization: All CT scans at this facility use at least one of these dose optimization techniques: automated exposure control; mA and/or kV adjustment per patient size (includes targeted exams where dose is matched to clinical indication); or iterative reconstruction. COMPARISON: CT pelvis wo con [id number] 09/05/2023 5:17 PM RADIATION DOSE METRICS: Total DLP (mGy-cm): 1360.7 FINDINGS: Bones/joints: Normal alignment. Normal lumbar kyphosis. Subtle posterior vertebral body height loss of L5 , stable compared to 2014. Vertebral body heights are otherwise well-maintained. No definitive evidence of acute fracture or dislocation. Mild multilevel degenerative change. Moderate disc protrusion at L4-L5 with apparent central canal and bilateral neural foraminal stenosis, improved compared to 2014.. Large protrusion at L5-S1 with mild central, and bilateral neural foraminal stenosis, worsened compared to 2014. Soft tissues: Unremarkable. CT/CT lumbar spine wo con* [id number] IMPRESSION: 1. No evidence of acute fracture or dislocation. 2. Moderate degenerative change of the lower lumbar spine.
--- NOTE | 2023-09-05 16:20 | CTR_ITS ---
PROCEDURE INFORMATION: Exam: CT Pelvis Without Contrast; Skeletal Exam date and time: 09/05/2023 5:17 PM Age: 57 years old Clinical indication: Injury or trauma; Fall; Blunt trauma (contusions or hematomas); Bilateral; Pelvic region; Additional info: Traumatic pelvic pain TECHNIQUE: Imaging protocol: Computed tomography of the pelvis without contrast. Exam focused on the skeleton. Radiation optimization: All CT scans at this facility use at least one of these dose optimization techniques: automated exposure control; mA and/or kV adjustment per patient size (includes targeted exams where dose is matched to clinical indication); or iterative reconstruction. COMPARISON: CT lumbar spine wo con* [id number] 09/05/2023 5:17 PM RADIATION DOSE METRICS: Total DLP (mGy-cm): 650.8 FINDINGS: Appendix: A normal appendix is not identified. There is no secondary evidence of acute appendicitis. Vasculature: Atherosclerotic vascular calcifications of the aorta. Small-vessel atherosclerotic calcifications. Reproductive: The uterus is present. Urinary bladder: The bladder is decompressed and collapsed. No abnormality identified. Bones/joints: Normal mineralization and alignment. Apparent exaggerated kyphosis of the distal coccygeal element, likely chronic based on appearance of degenerative change. Subtle irregularity of the distal coccygeal element. Sacroiliac joints appear intact. Sacrum is within normal limits. [id number] degenerative changes of the femoroacetabular joints. Soft tissues: Small bilateral inguinal hernias containing only fat are present. Nonspecific linear hyperdensities or calcifications in the subcutaneous tissues of the anterior abdominal wall. CT/CT pelvis wo con [id number] IMPRESSION: 1. No definitive evidence of acute fracture or dislocation. 2. Mild irregularity of the distal coccygeal element may be a chronic finding. Minimally displaced coccygeal fracture not excluded based on this appearance. 3. Degenerative changes of the hips.
--- NOTE | 2023-09-05 16:21 | XRR_ITS ---
PROCEDURE INFORMATION: Exam: XR Left Shoulder Exam date and time: 09/05/2023 5:23 PM Age: 57 years old Clinical indication: Pain; Shoulder; Left; Additional info: Shoulder pain, fracture, not wearing sling TECHNIQUE: Imaging protocol: Radiologic exam of the left shoulder. Views: 2 or more views. COMPARISON: CR (CHEST, ) 09/04/2023 7:18 AM FINDINGS: Bones/joints: Mildly displaced proximal left humeral fracture, similar in appearance compared to 1 day prior. No additional fractures identified. Alignment is intact on limited two view series. Acromioclavicular joint shows mild degenerative change but is otherwise intact. No obvious dislocation. Soft tissues: Normal. XR/XR shoulder LT min 2V* [id number] IMPRESSION: Mildly displaced proximal left humeral fracture, similar in appearance compared to 1 day prior.
--- NOTE | 2023-09-05 16:24 | ED_ITS ---
HPI - Extremity Problem 2 General: Chief complaint: Extremity Injury, Upper Stated complaint: lt shoulder pain Time Seen by Provider: 09/05/23 16:17 History of Present Illness: 57-year-old female with history of end-s tage renal disease on dialysis, morbid obesity, hypertension, Parkinson's, type 2 diabetes mellitus, and hyperlipidemia who presents to the emergency room by ambulance with left shoulder pain. She had fallen almost a week ago and then was seen in the emergency room on Tuesday and diagnosed with a proximal humerus fracture. She was sent home with a sling. She says when she was trying to get up at home the sling made pain worse. So she has not worn it. She cannot get up at all she says. Her only source of caregiver at home is her 80+-year-old mother. She also says she has not been able to get to the pharmacy to get her prescription of pain medications. Review of Systems 2 Narrative: Constitutional symptoms: Negative except as documented in HPI. Skin symptoms: Negative except as documented in HPI. Eye symptoms: Negative except as documented in HPI. ENMT symptoms: Negative except as documented in HPI. Respiratory symptoms: Negative except as documented in HPI. Cardiovascular symptoms: Negative except as documented in HPI. Gastrointestinal symptoms: Negative except as documented in HPI. Genitourinary symptoms: Negative except as documented in HPI. Musculoskeletal symptoms: Negative except as documented in HPI. Neurologic symptoms: Negative except as documented in HPI. Psychiatric symptoms: Negative except as documented in HPI. Endocrine symptoms: Negative except as documented in HPI. PFSH ED 2 PFSH: Medical History Rash Seropositive rheumatoid arthritis Left foot pain Long-term insulin use Diabetes type 2, uncontrolled Appetite loss MCI (mild cognitive impairment) Hypothyroidism Insulin dependent type 2 diabetes mellitus COVID-19 Hypertension Anxiety ESRD (end stage renal disease) Diabetes Hyperlipidemia Chronic back pain De Quervain's tenosynovitis Surgical History Status post colonoscopy S/P dialysis catheter insertion Removed 07/14/20 S/P arteriovenous (AV) fistula creation History of temporal artery biopsy H/O dilation and curettage H/O section Hx of cholecystectomy History of appendectomy History of carpal tunnel repair H/O neck surgery fusion Family History Father Bleeding disorder Other Diabetes Heart disease Hyperlipidemia Hypertension Kidney problem Migraines Stroke Denies family history of Anesthesia complication Social History Smoking and tobacco/nicotine status: never used tobacco/nicotine Second hand smoke exposure: No Alcohol intake: never Substance/Drug Use: never Adopted: No Caregiver/support person: Yes Lives independently: Yes Household members: family Housing: House Marital status: Single Highest education level completed: High School Graduate service: No Current occupational status: disabled Current occupational exposures/hazards: No Pets and animals: Yes Pets & animals: dog(s) Sexually active: No Do you think of yourself as: Straight/Heterosexual Current gender identity: Female Sabina/Baptist: Sikhism Special sabina needs: No Agree to transfusion: No Physical Exam 2 Narrative: EXAM NARRATIVE: General: Alert, no acute distress. Skin: Warm, dry. Head: Normocephalic, atraumatic. Neck: Supple, trachea midline. Eye: Extraocular movements are intact. Ears, nose, mouth and throat: mucosa moist. Cardiovascular: Regular, Normal peripheral perfusion. Respiratory: Lungs are clear to auscultation, respirations are non-labored, breath sounds are equal, Symmetrical chest wall expansion. Gastrointestinal: Soft, Nontender, Non distended, Normal bowel sounds. Musculoskeletal: Pain with movement of her left arm. Neurological: Alert and oriented, No focal neurological deficit observed. Psychiatric: Cooperative, appropriate mood & affect. Course 2 Vital Signs: Vital signs: Vital Signs Temperature 98.1 F 09/05/23 16:23 Pulse Rate 88 09/05/23 17:23 Respiratory Rate 20 H 09/05/23 17:10 Blood Pressure 111/53 09/05/23 16:23 Pulse Oximetry 89 L 09/05/23 17:23 MDM - Extremity (Nontraumatic) Medical Decision Making Basic lab work to evaluate her renal function at this time and her potassium. Reimaging of her shoulder and her low back were performed as well. Nothing acute. Her BUN and creatinine are 60 and 6.9 so she likely will need to be dialyzed tomorrow. She missed dialysis today secondary to her not being able to get out of bed Assessment and plan: Weakness Shoulder fracture End-stage renal disease on dialysis -I discussed the patient with the hospitalist on-call who is admitting the patient to observation. - Discussed findings and plan with patient. Answered any questions. - All laboratory values were reviewed and interpreted personally by myself, the ER physician - All imaging was reviewed and interpreted personally by myself, the ER physician. - Evaluation and treatment of this problem were appropriate in the emergency setting Lab Data 09/05/23 16:54 09/05/23 17:07 Laboratory Results WBC 11.38 10^3/uL (3.29-11.43) 09/05/23 16:54 RBC 2.68 10^6/uL (3.85-5.65) L 09/05/23 16:54 Hgb 8.30 g/dL (11.27-16.99) L 09/05/23 16:54 Hct 27.4 % (36-47) L 09/05/23 16:54 MCV 102.2 fl (85-98) H 09/05/23 16:54 MCH 31.0 pg (27-33) 09/05/23 16:54 MCHC 30.3 g/dL (30-55) 09/05/23 16:54 RDW 14.4 % (12.1-15.1) 09/05/23 16:54 Plt Count 252 10^3/cmm (157-399) 09/05/23 16:54 MPV 10.1 fL (7.4-10.4) 09/05/23 16:54 Neut % (Auto) 89.0 % 09/05/23 16:54 Lymph % (Auto) 3.1 % 09/05/23 16:54 Eagle % (Auto) 6.8 % 09/05/23 16:54 Eos % (Auto) 0.0 % 09/05/23 16:54 Baso % (Auto) 0.3 % 09/05/23 16:54 Neut # (Auto) 10.14 10^3/uL (1.8-7.7) H 09/05/23 16:54 Lymph # (Auto) 0.4 10^3/uL (0.8-4.8) L 09/05/23 16:54 Eagle # (Auto) 0.8 10^3/uL (0.2-0.9) 09/05/23 16:54 Eos # (Auto) 0.0 10^3/uL (0.0-0.8) 09/05/23 16:54 Baso # (Auto) 0.0 10^3/uL (0.0-0.1) 09/05/23 16:54 Nucleated RBC % (auto) 0 % 09/05/23 16:54 Nucleated RBCs # 0.0 /100WBC 09/05/23 16:54 Sodium 128 mmol/L (136-145) L 09/05/23 17:07 Potassium 5.4 mmol/L (3.5-5.1) H 09/05/23 17:07 Chloride 86 mmol/L (98-107) L 09/05/23 17:07 Carbon Dioxide 21 mmol/L (22-29) L 09/05/23 17:07 Anion Gap 26.4 (5-19) H 09/05/23 17:07 BUN 60 mg/dL (6-20) H 09/05/23 17:07 Creatinine 6.9 mg/dL (0.5-0.9) H* 09/05/23 17:07 GFR Calculation 6.1 mL/min (90-130) L 09/05/23 17:07 Glucose 145 mg/dL (65-115) H 09/05/23 17:07 Calculated Osmolality 285 mOsm/kg (285-295) 09/05/23 17:07 Calcium 8.1 mg/dL (8.5-10.5) L 09/05/23 17:07 Total Bilirubin 0.3 mg/dL (0.15-1.2) 09/05/23 17:07 AST 6 U/L (0-32) 09/05/23 17:07 ALT < 5 U/L (0-33) 09/05/23 17:07 Alkaline Phosphatase 94 U/L (35-105) 09/05/23 17:07 Total Protein 7.0 g/dL (6.6-8.7) 09/05/23 17:07 Albumin 3.0 g/dL (3.5-5.2) L 09/05/23 17:07 Globulin 4.0 g/dL (1.3-4.6) 09/05/23 17:07 XR interpretation done by ED provider, pending radiology final review Discharge Plan Discharge Patient Disposition: Placed in Observation Clinical Impression: Weakness, ESRD (end stage renal disease) Coding Level of Care Code ED Director Of Intercollegiate [employer] for Danial Brafield
[2023-09-05 17:01] LABS: Basophils % 0.3 %; Hematocrit 27.4 % (36-47); Lymphocytes # 0.4 10^3/uL (0.8-4.8); Lymphocytes % 3.1 %; Mean Corpuscular HGB Conc 30.3 g/dL (30-55); Mean Corpuscular Volume 102.2 fl (85-98); Mean Platelet Volume 10.1 fL (7.4-10.4); Monocytes # 0.8 10^3/uL (0.2-0.9); Monocytes % 6.8 %; Neutrophils # 10.14 10^3/uL (1.8-7.7); Nucleated Red Blood Cells % 0 %; Platelet Count 252 10^3/cmm (157-399); Red Blood Count 2.68 10^6/uL (3.85-5.65); Red Cell Distribution Width 14.4 % (12.1-15.1); White Blood Count 11.38 10^3/uL (3.29-11.43)
[2023-09-05] MEDS: ondansetron 2 mg/ML SDV 2 mL 4 MG IVP (17:10)
[2023-09-05] MEDS: HYDROmorphone 1 mg/mL INJ 1 mL IVP (17:10)
[2023-09-05 17:46] LABS: Alanine Aminotransferase < 5 U/L (0-33); Alkaline Phosphatase 94 U/L (35-105); Anion Gap 26.4 (5-19); Aspartate Amino Transferase 6 U/L (0-32); Blood Urea Nitrogen 60 mg/dL (6-20); Calcium 8.1 mg/dL (8.5-10.5); Carbon Dioxide 21 mmol/L (22-29); Chloride 86 mmol/L (98-107); Glomerular Filtration Rate 6.1 mL/min (90-130); Glucose 145 mg/dL (65-115); Osmolality Calculated 285 mOsm/kg (285-295); Potassium 5.4 mmol/L (3.5-5.1); Sodium 128 mmol/L (136-145); Total Bilirubin 0.3 mg/dL (0.15-1.2)
[2023-09-05 17:49] LABS: Creatinine Clr Calc Pharmacy 8.7939
--- NOTE | 2023-09-05 18:01 | P.HP_ITS ---
Providers/Chief Complaint 2 Primary Care Provider: Vivienne Schulz MD Chief Complaint: lt shoulder pain History of Present Illness Elvi Kaiser is a 57 year old female with a past medical history significant for end-stage renal disease on hemodialysis, obesity, hypertension, hypothyroidism, and multiple other comorbidities who presents emergency department with inability to care for self at home. Patient recently had a commuted and fragmented fracture involving the greater tuberosity/proximal left humerus. This occurred about 2 weeks ago following a mechanical fall at home. Since that time she has had significant pain. The pain is not improved and she has been unable to care for self. Her caregiver is her elderly mother who has been unable to get her up. She is dialysis dependent. She missed dialysis today due to inability to care for self. Patient and her mother have determined they are unable to care for her at her facility. They would like to seek placement until she improves. She denies other alleviating or aggravating factors. She currently rates her pain about a 7 out of 10. ED provider requesting admission for case management/social work consultation and placement. Review of Systems 2 Narrative: A complete review of systems was obtained and is negative except as stated in HPI. Medications/Allergies Home Medications Medication Instructions Recorded Confirmed Last Taken Type escitalopram oxalate 20 mg tablet 40 mg PO DAILY@0800 05/01/19 08/24/23 08/23/23 History (Lexapro) vit B,C-folic ac 800 mcg-zinc 12.5 1 tab PO DAILY@199905/01/19 08/24/23 08/23/23 History mg-selen-D3 2,000 unit-vit E tablet (RenaPlex-D) carbidopa 25 mg-levodopa 100 mg See Rx Instructions .Route .COMPLEX 05/20/20 08/24/23 08/22/23 History tablet diphenhydramine HCl 25 mg capsule 25 mg PO BEDTIME@199905/20/20 08/24/23 08/23/23 History (Benadryl) ferric citrate 210 mg iron tablet 630 mg PO TID@08,,05/20/20 08/24/23 08/23/23 History (Auryxia) ropinirole 0.5 mg tablet 0.5 mg PO DAILY@199906/21/20 08/24/23 08/23/23 History blood-glucose meter,continuous #1 ea 09/24/21 08/24/23 Unknown Rx (Dexcom G6 Otr Flatbed Driver) blood-glucose sensor (Dexcom G6 #9 ea 09/24/21 08/24/23 Unknown Rx Sensor device) clopidogrel 75 mg tablet 75 mg PO DAILY #30 tabs 11/27/21 08/24/23 08/23/23 Rx blood-glucose transmitter (Dexcom #3 ea 12/24/21 08/24/23 Unknown Rx G6 Transmitter device) glucagon 1 mg solution for 1 mg SUBCUT Q20M PRN hypoglycemia 12/24/21 08/24/23 Unknown Rx injection (Glucagon Emergency Kit) #1 ea amlodipine 2.5 mg tablet (Norvasc) 2.5 mg PO DAILY 09/28/22 08/24/23 08/23/23 History gabapentin 100 mg capsule 100 mg PO TID #90 caps 04/21/23 08/24/23 08/23/23 Rx levothyroxine 50 mcg tablet 50 mcg PO DAILY 08/24/23 08/24/23 08/23/23 History metoprolol succinate 50 mg 50 mg PO DAILY 08/24/23 08/24/23 08/23/23 History tablet,extended release 24 hr mupirocin 2 % topical ointment 1 applic topical TID PRN Skin 08/24/23 08/24/23 Unknown History Irritation prednisone 5 mg tablet 5 mg PO DAILY PRN Allergic Reaction 08/24/23 08/24/23 08/23/23 History rosuvastatin 20 mg tablet 20 mg PO BEDTIME 08/24/23 08/24/23 08/23/23 History hydromorphone 2 mg tablet 2 mg PO Q8H PRN pain #10 tabs 08/25/23 Unknown Rx (Dilaudid) cyclobenzaprine 10 mg tablet 10 mg PO Q8H PRN MUSCLE SPASMS #14 09/04/23 Unknown Rx tabs Allergies Allergy/AdvReac Type Severity Reaction Status Date / Time codeine Allergy ALGY-Hives Verified 05/10/23 10:22 fentanyl Allergy ALGY-Hives Verified 05/10/23 10:22 hydrocodone Allergy ALGY-Hives Verified 05/10/23 10:22 influenza virus vaccine qs Allergy ALGY-Hives Verified 05/10/23 10:22 [id number](65 years up) [From Fluad Quad (65y up)(PF)] Iodinated Contrast Media Allergy ALGY-Anaphy Verified 05/10/23 10:22 laxis kiwi Allergy ALGY-Anaphy Verified 05/10/23 10:22 laxis lisinopril Allergy ADR-Cough Verified 05/10/23 10:22 NSAIDS (Non-Steroidal Allergy ALGY-Hives Verified 05/10/23 10:22 Anti-Inflamma oxycodone Allergy ALGY-Hives Verified 05/10/23 10:22 pineapple Allergy ALGY-Anaphy Verified 05/10/23 10:22 laxis promethazine Allergy Unknown Verified 05/10/23 10:22 strawberry Allergy ALGY-Anaphy Verified 05/10/23 10:22 laxis tramadol Allergy ALGY-Hives Verified 05/10/23 10:22 vaccine adjuvant emulsion Allergy ALGY-Hives Verified 05/10/23 10:22 MF59C.1 [From Fluad Quad (65y up)(PF)] PFSH Acute 2 PFSH: Medical History (Updated 09/05/23 @ 18:05 by Fernando Gracia MD) Rash Seropositive rheumatoid arthritis Left foot pain Long-term insulin use Diabetes type 2, uncontrolled Appetite loss MCI (mild cognitive impairment) Hypothyroidism Insulin dependent type 2 diabetes mellitus COVID-19 Hypertension Anxiety ESRD (end stage renal disease) Diabetes Hyperlipidemia Chronic back pain De Quervain's tenosynovitis Surgical History Status post colonoscopy S/P dialysis catheter insertion Removed 07/14/20 S/P arteriovenous (AV) fistula creation History of temporal artery biopsy H/O dilation and curettage H/O section Hx of cholecystectomy History of appendectomy History of carpal tunnel repair H/O neck surgery fusion Family History Father Bleeding disorder Other Diabetes Heart disease Hyperlipidemia Hypertension Kidney problem Migraines Stroke Denies family history of Anesthesia complication Social History Smoking and tobacco/nicotine status: never used tobacco/nicotine Second hand smoke exposure: No Alcohol intake: never Substance/Drug Use: never Adopted: No Caregiver/support person: Yes Lives independently: Yes Household members: family Housing: House Marital status: Single Highest education level completed: High School Graduate service: No Current occupational status: disabled Current occupational exposures/hazards: No Pets and animals: Yes Pets & animals: dog(s) Sexually active: No Do you think of yourself as: Straight/Heterosexual Current gender identity: Female Sabina/Mu-Ism: [employer] Special sabina needs: No Agree to transfusion: No Vitals/I&O/Wt Last Vital Signs Temp 98.1 F 09/05/23 16:23 Pulse 88 09/05/23 17:23 Resp 20 H 09/05/23 17:10 BP 111/53 09/05/23 16:23 Pulse Ox 89 L 09/05/23 17:23 Weight last 48 hrs Weight 88.451 kg Physical Exam 2 Narrative: General: Patient is awake. Obese. Head: Normocephalic. Atraumatic. EOM intact. Neck: No JVD. Cardiovascular: RRR. No gallops. No murmurs. Lungs: Breath sounds manage bilateral bases, no use of accessory muscles, no crackles or wheezes. Skin: No jaundice. No rashes. Abdomen: Normal bowel sounds, abdomen soft and nontender. Genito Urinary: Genital exam not performed since complaints not related. Rectal: Rectal exam not performed since no symptoms indicated blood loss. Extremities: No cyanosis or clubbing. Musculoskeletal: No erythematous joints. Neurological: No myoclonus. Left upper extremity with limited evaluation due to known fracture. Data 09/05/23 16:54 09/05/23 17:07 A&P Assessment and plan (1) Failure to thrive: Failure to thrive in adult Debility physical deconditioning due to recent left humerus fracture Nonweightbearing of left upper extremity Request physical and Occupational Therapy Case management consult for placement Continue home muscle relaxer as needed Continue home oral Dilaudid as needed (2) ESRD (end stage renal disease): Missed dialysis today, mild hyperkalemia noted Will need nephrology consult once she gets to room, likely in the a.m. Continue other home medications Renal diet Telemetry while hyperkalemic (3) Hypothyroidism: Continue home Synthroid (4) Diabetes: Low-dose sliding scale insulin correction Avoid hypoglycemia (5) Hypertension: Continue home Norvasc Continue home metoprolol Plan DVT prophylaxis: Heparin CODE STATUS: Full code Attestations 2 Medical Necessity Statement*: Patient presents with inability to care for self due to recent humerus fracture couple weeks ago with expected hospitalization not to cross 2 midnights for placement. Coding Level of Care Code Acute Code for Chg Fwd Diagnoses Failure to thrive ESRD (end stage renal disease) N18.6 Hypothyroidism E03.9 Diabetes E11.9 Hypertension I10
[2023-09-05] MEDS: sodium chloride 0.9% 250 ML 999 ML IV (19:48)
[2023-09-05] MEDS: naloxone 0.4 mg/ml SDV 0.400000000000000022 MG IVP (19:48)
[2023-09-05] MEDS: cyclobenzaprine 10 mg Tablet PO (20:51)
[2023-09-05] MEDS: heparin 5,000 unit/mL INJ 1 mL 5000 UNIT SUBCUT (20:51)
[2023-09-05] MEDS: gabapentin 100 mg Capsule PO (20:51)
[2023-09-05] MEDS: diphenhydrAMINE 25 mg Capsule PO (20:52)
[2023-09-05 21:35] LABS: Glucose Point of Care 154 mg/dL (70-110)
[2023-09-05] MEDS: atorvastatin 40 mg Tablet 80 MG PO (21:35)
[2023-09-05] MEDS: insulin lispro 100 unit/1 mL SUBCUT (21:35)
--- NOTE | 2023-09-05 23:31 | P.CONIM_ITS ---
Providers/Reason For Consult 2 Consulting Physician/Specialty*: ana pacheco md / telenephrology Reason for Consult*: ESRD care Requesting Physician: DR Albaro Garcia Attending Physician: Fernando Garcia MD Primary Care Provider: Vivienne Schulz MD History of Present Illness History of Present Illness Elvi Kaiser is a 57 year old female with a past medical history significant for end-stage renal disease on hemodialysis, IDDM, obesity, hypertension, hypothyroidism, depression. Recent left humeral fracture following a mechanical fall at home. Since that time she has had significant pain. The pt presented w/ pain and weakness and inability to get to dialysis today and to take care of herself. She was admitted for pain cntrol and possible rehab placement Review of Systems 2 Narrative: weak, lethargic, sob, nausea, confusion rest of ROS is negative Medications/Allergies Home Medications Medication Instructions Recorded Confirmed Last Taken Type escitalopram oxalate 20 mg tablet 40 mg PO DAILY@0800 05/01/19 08/24/23 08/23/23 History (Lexapro) vit B,C-folic ac 800 mcg-zinc 12.5 1 tab PO DAILY@199905/01/19 08/24/23 08/23/23 History mg-selen-D3 2,000 unit-vit E tablet (RenaPlex-D) carbidopa 25 mg-levodopa 100 mg See Rx Instructions .Route .COMPLEX 05/20/20 08/24/23 08/22/23 History tablet diphenhydramine HCl 25 mg capsule 25 mg PO BEDTIME@199905/20/20 08/24/23 08/23/23 History (Benadryl) ferric citrate 210 mg iron tablet 630 mg PO TID@08,05/20/20 08/24/23 08/23/23 History (Auryxia) ropinirole 0.5 mg tablet 0.5 mg PO DAILY@199906/21/20 08/24/23 08/23/23 History blood-glucose meter,continuous #1 ea 09/24/21 08/24/23 Unknown Rx (Dexcom G6 Clothing Patternmaker) blood-glucose sensor (Dexcom G6 #9 ea 09/24/21 08/24/23 Unknown Rx Sensor device) clopidogrel 75 mg tablet 75 mg PO DAILY #30 tabs 11/27/21 08/24/23 08/23/23 Rx blood-glucose transmitter (Dexcom #3 ea 12/24/21 08/24/23 Unknown Rx G6 Transmitter device) glucagon 1 mg solution for 1 mg SUBCUT Q20M PRN hypoglycemia 12/24/21 08/24/23 Unknown Rx injection (Glucagon Emergency Kit) #1 ea amlodipine 2.5 mg tablet (Norvasc) 2.5 mg PO DAILY 09/28/22 08/24/23 08/23/23 History gabapentin 100 mg capsule 100 mg PO TID #90 caps 04/21/23 08/24/23 08/23/23 Rx levothyroxine 50 mcg tablet 50 mcg PO DAILY 08/24/23 08/24/23 08/23/23 History metoprolol succinate 50 mg 50 mg PO DAILY 08/24/23 08/24/23 08/23/23 History tablet,extended release 24 hr mupirocin 2 % topical ointment 1 applic topical TID PRN Skin 08/24/23 08/24/23 Unknown History Irritation prednisone 5 mg tablet 5 mg PO DAILY PRN Allergic Reaction 08/24/23 08/24/23 08/23/23 History rosuvastatin 20 mg tablet 20 mg PO BEDTIME 08/24/23 08/24/23 08/23/23 History hydromorphone 2 mg tablet 2 mg PO Q8H PRN pain #10 tabs 08/25/23 Unknown Rx (Dilaudid) cyclobenzaprine 10 mg tablet 10 mg PO Q8H PRN MUSCLE SPASMS #14 09/04/23 Unknown Rx tabs Allergies Allergy/AdvReac Type Severity Reaction Status Date / Time codeine Allergy ALGY-Hives Verified 05/10/23 10:22 fentanyl Allergy ALGY-Hives Verified 05/10/23 10:22 hydrocodone Allergy ALGY-Hives Verified 05/10/23 10:22 influenza virus vaccine qs Allergy ALGY-Hives Verified 05/10/23 10:22 [id number](65 years up) [From Fluad Quad 2019-(65y up)(PF)] Iodinated Contrast Media Allergy ALGY-Anaphy Verified 05/10/23 10:22 laxis kiwi Allergy ALGY-Anaphy Verified 05/10/23 10:22 laxis lisinopril Allergy ADR-Cough Verified 05/10/23 10:22 NSAIDS (Non-Steroidal Allergy ALGY-Hives Verified 05/10/23 10:22 Anti-Inflamma oxycodone Allergy ALGY-Hives Verified 05/10/23 10:22 pineapple Allergy ALGY-Anaphy Verified 05/10/23 10:22 laxis promethazine Allergy Unknown Verified 05/10/23 10:22 strawberry Allergy ALGY-Anaphy Verified 05/10/23 10:22 laxis tramadol Allergy ALGY-Hives Verified 05/10/23 10:22 vaccine adjuvant emulsion Allergy ALGY-Hives Verified 05/10/23 10:22 MF59C.1 [From [employer] (65y up)(PF)] Current Medications Generic Name Dose Route Start Last Admin Trade Name Freq PRN Reason Stop Dose Admin Atorvastatin Calcium 80 mg 09/05/23 21:00 09/05/23 21:35 Atorvastatin 40 Mg Tablet PO 80 mg BEDTIME JAMIE Administration Cyclobenzaprine HCl 10 mg 09/05/23 20:35 09/05/23 20:51 Cyclobenzaprine 10 Mg Tablet PO 10 mg Q8H PRN Administration MUSCLE SPASMS Diphenhydramine HCl 25 mg 09/05/23 20:35 09/05/23 20:52 Diphenhydramine 25 Mg Capsule PO 25 mg BEDTIME@1999 JAMIE Administration Gabapentin 100 mg 09/05/23 21:00 09/05/23 20:51 Gabapentin 100 Mg Capsule PO 100 mg TID JAMIE Administration Heparin Sodium (Porcine) 5,000 unit 09/05/23 20:35 09/05/23 20:51 Heparin 5,000 Unit/Ml Inj 1 Ml SUBCUT 5,000 unit Q12H JAMIE Administration Insulin Human Lispro 0 unit 09/05/23 21:00 09/05/23 21:35 Insulin Lispro 100 Unit/1 Ml SUBCUT 2 unit WM&BEDTIME JAMIE Administration Protocol PFSH Acute 2 PFSH: Medical History (Updated 09/05/23 @ 18:05 by Fernando Garcia MD) Rash Seropositive rheumatoid arthritis Left foot pain Long-term insulin use Diabetes type 2, uncontrolled Appetite loss MCI (mild cognitive impairment) Hypothyroidism Insulin dependent type 2 diabetes mellitus COVID-19 Hypertension Anxiety ESRD (end stage renal disease) Diabetes Hyperlipidemia Chronic back pain De Quervain's tenosynovitis Surgical History Status post colonoscopy S/P dialysis catheter insertion Removed 07/14/20 S/P arteriovenous (AV) fistula creation History of temporal artery biopsy H/O dilation and curettage H/O section Hx of cholecystectomy History of appendectomy History of carpal tunnel repair H/O neck surgery fusion Family History Father Bleeding disorder Other Diabetes Heart disease Hyperlipidemia Hypertension Kidney problem Migraines Stroke Denies family history of Anesthesia complication Social History Smoking and tobacco/nicotine status: never used tobacco/nicotine Second hand smoke exposure: No Alcohol intake: never Substance/Drug Use: never Adopted: No Caregiver/support person: Yes Lives independently: Yes Household members: family Housing: House Marital status: Single Highest education level completed: High School Graduate service: No Current occupational status: disabled Current occupational exposures/hazards: No Pets and animals: Yes Pets & animals: dog(s) Sexually active: No Do you think of yourself as: Straight/Heterosexual Current gender identity: Female Sabina/Gnosticism: [employer] Special sabina needs: No Agree to transfusion: No Vitals/I&O/Wt Last Vital Signs Temp 97.7 F 09/05/23 20:35 Pulse 83 09/05/23 22:25 Resp 18 09/05/23 20:35 BP 97/40 09/05/23 20:35 Pulse Ox 92 09/05/23 20:35 O2 Del Method Room Air 09/05/23 21:24 09/05/23 09/05/23 09/06/23 14:59 22:59 06:59 Intake Total 50 / 50 Balance 50 / 50 Weight last 48 hrs Weight 88.451 kg Weight 88.451 kg Physical Exam 2 Narrative: obses, confused BP low heent- nc/at, eomi neck supple lungs clear heart reg +s1, s2, +RAMA abd soft, + bs, nt, nd ext RUE AVF w/ thrill and bruit 1+ leg edema neuro- lethargic, awakens, confused Data 09/05/23 16:54 09/05/23 17:07 A&P Assessment and plan (1) ESRD (end stage renal disease): 57 yr old female 1. Left humeral fracture 2. ESRD- HD [facility]annah morning. She has ESRD since 2018 from htn, dm, obesity 3. hypothyroidism- check tsh on levothyroxine 4. IDDM 5. htn- bp low. hold meds 6. anemia - check iron studies 7. hyponatremia- monitor w/ hd. check tsh and am cortisol levels 8. renal bone mineral metabolism- check pth, vit d , ca, phos seen and examined w/ rN- telehealth visit informed consent for telehealth obtained from pt Plan see above Consult Attestations 2 Medical Necessity Statement: anemia, esrd, lethargy, left humerus fx Time Spent in Patient Care: Greater than 35 minutes Coding Level of Care Code Acute Code for Chg Fwd Diagnoses ESRD (end stage renal disease) N18.6
[2023-09-05] MEDS: FUROsemide 10 mg/mL SDV 10mL 80 MG IVP (23:55)
[2023-09-05] MEDS: sodium polystyrene sulfonate 15 gm/60 mL Btl 30 GM PO (23:56)
[2023-09-06] VITALS (11 sets, daily range): BP systolic 89–143; BP diastolic 56–71; PULSE 70–105; RESP 16–18; TEMP 36.4–37.8; O2SAT 96–100
[2023-09-06] MEDS: acetaminophen 325 mg Tablet 650 MG PO ×2 (00:18→19:37)
[2023-09-06 04:54] LABS: Basophils % 0.1 %; Hematocrit 22.8 % (36-47); Lymphocytes # 0.5 10^3/uL (0.8-4.8); Mean Corpuscular HGB Conc 32.5 g/dL (30-55); Mean Corpuscular Hemoglobin 30.8 pg (27-33); Mean Platelet Volume 10.6 fL (7.4-10.4); Monocytes # 0.8 10^3/uL (0.2-0.9); Monocytes % 7.2 %; Neutrophils # 9.95 10^3/uL (1.8-7.7); Neutrophils % 87.8 %; Nucleated Red Blood Cells % 0 %; Platelet Count 264 10^3/cmm (157-399); Red Cell Distribution Width 14.2 % (12.1-15.1); White Blood Count 11.32 10^3/uL (3.29-11.43)
[2023-09-06 05:11] LABS: Alanine Aminotransferase < 5 U/L (0-33); Alkaline Phosphatase 91 U/L (35-105); Anion Gap 27.6 (5-19); Aspartate Amino Transferase 6 U/L (0-32); Blood Urea Nitrogen 64 mg/dL (6-20); Calcium 7.7 mg/dL (8.5-10.5); Carbon Dioxide 20 mmol/L (22-29); Chloride 85 mmol/L (98-107); Creatinine Clr Calc Pharmacy 7.2128; Globulin 3.7 g/dL (1.3-4.6); Glomerular Filtration Rate 5.7 mL/min (90-130); Glucose 99 mg/dL (65-115); Iron 43 ug/dL (37-145); Magnesium 2.1 mg/dL (1.7-2.3); Osmolality Calculated 282 mOsm/kg (285-295); Percent Saturation 25.4 % (20-50); Potassium 5.6 mmol/L (3.5-5.1); Sodium 127 mmol/L (136-145); Total Bilirubin 0.2 mg/dL (0.15-1.2); Total Iron Binding Capacity 169 mcg/dl; Total Protein 6.7 g/dL (6.6-8.7); Unsaturated Iron Binding 126 ug/dL (112-347)
[2023-09-06 05:15] LABS: Calcium 7.3 mg/dL (8.5-10.5)
[2023-09-06 05:20] LABS: Parathyroid Hormone 336.4 pg/mL (15-65)
[2023-09-06 05:22] LABS: Hepatitis B Surface AB 128.1 (11.5-1000); Hepatitis B Surface Antigen Non-Reactive (Nonreactive); Hepatitis C Virus Antibody Non-Reactive (Nonreactive)
[2023-09-06 05:24] LABS: 25 Hydroxy Vitamin D 32 ng/mL (30-100)
[2023-09-06 05:34] LABS: Ferritin > 19029 ng/mL (15-150)
[2023-09-06 06:31] LABS: Glucose Point of Care 100 mg/dL (70-110)
--- NOTE | 2023-09-06 07:36 | PM.PN ---
Subjective Subjective: lethargic in bed, weak, ecchymosis under eyes. limited ROS by poor MS Medications: Reviewed: Yes Medication Review Details: Current Medications Acetaminophen (Acetaminophen 325 Mg Tablet) 650 mg PO Q6H PRN PRN Reason: Mild/Mod Pain Or Temp >/= 101 Last Admin: 09/06/23 00:18 Dose: 650 mg Atorvastatin Calcium (Atorvastatin 40 Mg Tablet) 80 mg PO BEDTIME [facility] Last Admin: 09/05/23 21:35 Dose: 80 mg Carbidopa/Levodopa (Carbidopa-Levodopa 25-100mg Tablet) 0 each PO .COMPLEX JAMIE Clopidogrel Bisulfate (Clopidogrel 75 Mg Tablet) 75 mg PO DAILY [facility] Collagenase (Collagenase Oint 30 Gm) 1 applic TOPICAL DAILY [facility] Cyclobenzaprine HCl (Cyclobenzaprine 10 Mg Tablet) 10 mg PO Q8H PRN PRN Reason: MUSCLE SPASMS Last Admin: 09/05/23 20:51 Dose: 10 mg Diphenhydramine HCl (Diphenhydramine 25 Mg Capsule) 25 mg PO BEDTIME@2000 [facility] Last Admin: 09/05/23 20:52 Dose: 25 mg Escitalopram Oxalate (Escitalopram 10 Mg Tablet) 40 mg PO DAILY@0800 [facility] Gabapentin (Gabapentin 100 Mg Capsule) 100 mg PO TID [facility] Last Admin: 09/05/23 20:51 Dose: 100 mg Heparin Sodium (Porcine) (Heparin 5,000 Unit/Ml Inj 1 Ml) 5,000 unit SUBCUT Q12H [facility] Last Admin: 09/05/23 20:51 Dose: 5,000 unit Hydromorphone HCl (Hydromorphone 4 Mg Tablet) 2 mg PO Q8H PRN PRN Reason: PAIN Dextrose (D5w) 500 mls @ 0 mls/hr IV ONCE PRN; Protocol PRN Reason: Adult Acute Hypoglycemia Prot Dextrose (D10w) 125 mls @ 750 mls/hr IV PRN PRN; Protocol PRN Reason: Adult Acute Hypoglycemia Nursing Protocol Dextrose (D10w) 250 mls @ 1,000 mls/hr IV PRN PRN; Protocol PRN Reason: Adult Acute Hypoglycemia Nursing Protocol Insulin Human Lispro (Insulin Lispro 100 Unit/1 Ml) 0 unit SUBCUT WM&BEDTIME [facility]; Protocol Last Admin: 09/05/23 21:35 Dose: 2 unit Levothyroxine Sodium (Levothyroxine 50 Mcg Tablet) 50 mcg PO DAILY [facility] Metoprolol Succinate (Metoprolol Succinate Er (24 Hr) 50 Mg Tablet) 50 mg PO DAILY [facility] Multivitamins (P-Dfmzpez-Tthtkic C Tablet) 1 each PO DAILY [facility] Nystatin (Nystatin Cream 30 Gm) 1 applic TOPICAL BID [facility] Ondansetron HCl (Ondansetron 2 Mg/Ml Sdv 2 Ml) 4 mg IVP Q8H PRN PRN Reason: vomiting, or N/V if npo Ondansetron HCl (Ondansetron 4 Mg Tablet) 4 mg PO Q8H PRN PRN Reason: NAUSEA Ropinirole HCl (Ropinirole 0.25 Mg Tablet) 0.5 mg PO DAILY@1999 [facility] Vitals/I&O/Wt Last Vital Signs Temp 97.8 F 09/06/23 04:00 Pulse 74 09/06/23 05:23 Resp 18 09/06/23 04:00 BP 94/57 09/06/23 04:00 Pulse Ox 99 09/06/23 04:00 O2 Del Method Nasal Cannula 09/06/23 04:00 09/05/23 09/06/23 09/06/23 22:59 06:59 14:59 Intake Total 50 / 50 120 / 170 Balance 50 / 50 120 / 170 Weight last 48 hrs Weight 67.727 kg Weight 88.451 kg Weight 88.451 kg Physical Exam Narrative: obese, lethargic BP low heent- nc/at, eomi neck supple lungs clear heart reg +s1, s2, +RAMA abd soft, + bs, nt, nd ext RUE AVF w/ thrill and bruit left arm broken 1+ leg edema neuro- lethargic, weak Data 09/06/23 04:19 09/06/23 04:19 A&P Assessment and plan (1) ESRD (end stage renal disease): 57 yr old female w/ weakness, anemia, and Left humeral fracture. 1. anemia- ferritin >08090- Q malignancy, Q HLH or sepsis or COVID or received significant iron -no iv iron give epo 2. ESRD- She has ESRD since 2018 from htn, dm, obesity -missed dialysis yesterday. HD today 3. hypothyroidism- check tsh on levothyroxine 4. IDDM - monitor for hypoglycemia 5. htn- bp low. hold meds 6. hyponatremia- monitor w/ hd. check tsh and am cortisol levels 7. lethargic dec meds 8. renal bone mineral metabolism- pth 336 check vit d level -give phos binder seen and examined w/ rN- telehealth visit informed consent for telehealth obtained from pt Plan see above Attestations Medical Necessity Statement*: esrd, missed hd, ams, lethargy, anemia Coding Level of Care Code Acute Code for Chg Fwd Diagnoses ESRD (end stage renal disease) N18.6
--- NOTE | 2023-09-06 09:00 | PC.HD ---
Heparin 1000 units loading dose administered via venous HD needle at 0845 per tobacco sample puller's orders.
--- NOTE | 2023-09-06 09:31 | PC.CHAP ---
Pastoral Care Encounter/Spiritual Assessment Type of Contact [] Declined corporate safety coordinator visit [] Patient/Family/Request visit [] Outpatient visit [] Follow-up visit [] Physician referral [] Code/Alert [] Routine visit [] Staff referral [] Actively dying [x] Patient sleeping [] Family support [] [] Out of room [] Palliative care [] [] Receiving care in room [] Pre-surgical visit [] Trauma [] Long length of stay [] ICU visit [] Other: Relational/Emotional Strength [] Patient feels connected with others/family/visitors/staff [] Distress [] Loneliness/isolation [] Abandonment Spirituality of Patient [] Person of Sabina [] Attends Gnosticism of their Sabina [] Believes in Prayer [] Reads Bible or Yazidism materials [] There are Spiritual issues to be addressed Car Pusher Interventions [] Prayer [] Active listening [] Non-anxious presence [] Spiritual/emotional support [] Crisis/trauma care [] Spiritual counseling [] Bereavement support [] Provided bereavement packet [] Provided Bible/devotional materials [] Provided toy/stuffed animal, coloring book to patient or family member [] Provided Communion [] Anointing/[place] [] Salvation [] Completed spiritual assessment [] Other: Impact on Illness or Injury [] Angry [] Fearful [] Anxious [] Often cries [] Exhaustion [] Unable to work [] Unable to attend catholic [] Unable to walk/stand [] Unable to read [] Unable to drive [] Unable to eat/drink [] Unable to sleep [] Unable to be with family [] Patient intubated [] Other: Summary Time spent with patient
[2023-09-06] MEDS: collagenase oint 30 gm 1 APPLIC TOPICAL (09:35)
[2023-09-06] MEDS: nystatin cream 30 gm 1 APPLIC TOPICAL ×3 (09:35→17:11)
[2023-09-06] MEDS: gabapentin 100 mg Capsule PO ×2 (09:36→17:10)
[2023-09-06] MEDS: levothyroxine 50 mcg Tablet PO (09:36)
[2023-09-06] MEDS: heparin 5,000 unit/mL INJ 1 mL 5000 UNIT SUBCUT ×2 (09:36→19:38)
[2023-09-06] MEDS: clopidogrel 75 mg Tablet PO (09:36)
[2023-09-06] MEDS: b-complex-vitamin c Tablet 1 EACH PO (09:36)
[2023-09-06] MEDS: escitalopram 10 mg Tablet 40 MG PO (09:36)
[2023-09-06 10:05] LABS: 25 Hydroxy Vitamin D 31 ng/mL (30-100); Thyroid Stimulating Hormone 2.34 uIU/mL (0.27-4.20)
[2023-09-06] MEDS: epoetin alfa 1000 Unit/0.05 mL (ESRD) 20000 UNIT SUBCUT (12:09)
--- NOTE | 2023-09-06 12:17 | PC.OT ---
OT EVALUATION ATTEMPTED; PATIENT IN DIALYSIS AND UNAVAILABLE AT THIS TIME.
--- NOTE | 2023-09-06 12:20 | P.PN_ITS ---
Subjective 2 Subjective: Patient was getting dialysis Requested topical antibiotics along nystatin powder for her abdominal pannus Patient does have cognitive impairment, mother is her caregiver Patient is not complaining of anything other than mild discomfort and soreness when I was trying to examine her abdominal pannus She is currently on 2 L nasal cannula Getting dialyzed Vitals/I&O/Wt Last Vital Signs Temp 97.6 F 09/06/23 11:24 Pulse 96 09/06/23 11:24 Resp 16 09/06/23 11:24 BP 89/66 09/06/23 11:24 Pulse Ox 100 09/06/23 11:24 O2 Del Method Nasal Cannula 09/06/23 11:24 O2 Flow Rate 2 09/06/23 08:00 09/05/23 09/06/23 09/06/23 22:59 06:59 14:59 Intake Total 50 / 50 120 / 170 Balance 50 / 50 120 / 170 Weight last 48 hrs Weight 67.727 kg Weight 88.451 kg Weight 88.451 kg Physical Exam 2 Narrative: Abdominal pannus with excoriation with skin sloughing cellulitis abdominal wall noted Mild cognitive impairment Able to answer simple questions Able to move her extremities Limited range of motion of arm secondary to recent fracture Mild hypervolemia Abdominal distended without tenderness S1, S2 Currently on 2 L Data 09/06/23 04:19 09/06/23 04:19 A&P Assessment and plan (1) Hypertension: (2) Diabetes: (3) Failure to thrive: (4) ESRD (end stage renal disease): (5) Seropositive rheumatoid arthritis: (6) Closed left humeral fracture: Qualifiers: Encounter type: initial encounter Humerus Location: proximal (7) Toe fracture: (8) Contusion of right foot: Qualifiers: Encounter type: subsequent encounter Qualified Code(s): S90.31XD - Contusion of right foot, subsequent encounter (9) Rash: (10) Weakness: (11) Abdominal wall cellulitis: Plan Failure to thrive End-stage renal disease continue dialysis as per the schedule Monitor her blood pressure Abdominal pannus cellulitis, not sure if it is calciphylaxis versus typical cellulitis will add topical antibiotics along oral regimen and nystatin powder Continue Synthroid Diabetes continue sliding scale Full code Heparin for DVT prophylaxis on board Awaiting physical therapy Nonweightbearing left upper extremity secondary to recent fall left humerus fracture Attestations 2 Medical Necessity Statement*: shelter placement is needed Diagnoses Hypertension I10 Diabetes E11.9 Failure to thrive ESRD (end stage renal disease) N18.6 Seropositive rheumatoid arthritis M05.9 Closed left humeral fracture S42.302A Encounter type: initial encounter Humerus Location: proximal Toe fracture S92.919A Contusion of right foot, subsequent encounter S90.31XD Encounter type: subsequent encounter Rash R21 Weakness R53.1 Abdominal wall cellulitis L03.311
[2023-09-06 12:51] LABS: Glucose Point of Care 65 mg/dL (70-110)
--- NOTE | 2023-09-06 14:32 | PC.NURSE ---
This nurse gave patients sister and DPOA, Ketty Boyer, an update regarding her care.
[2023-09-06] MEDS: cyclobenzaprine 10 mg Tablet PO (14:52)
[2023-09-06] MEDS: bacitracin ointment Pkt 1 EACH TOPICAL ×2 (15:07→21:43)
[2023-09-06 15:22] LABS: Glucose Point of Care 99 mg/dL (70-110)
[2023-09-06 16:29] LABS: Glucose Point of Care 122 mg/dL (70-110)
--- NOTE | 2023-09-06 17:09 | PC.OT ---
OT EVALUATION ATTEMPTED TWICE; PATIENT IN DIALYSIS AT FIRST ATTEMPT AND TOO TIRED AND IN PAIN TO PARTICIPATE IN P.M.
[2023-09-06] MEDS: doxycycline 100 mg Tablet PO (17:10)
[2023-09-06] MEDS: ropinirole 0.25 mg Tablet 0.5 MG PO (19:38)
[2023-09-06] MEDS: diphenhydrAMINE 25 mg Capsule PO (19:38)
[2023-09-06 20:20] LABS: Glucose Point of Care 139 mg/dL (70-110)
[2023-09-06] MEDS: atorvastatin 40 mg Tablet 80 MG PO (21:43)
[2023-09-07] VITALS (17 sets, daily range): BP systolic 90–170; BP diastolic 50–97; PULSE 87–113; RESP 16–21; TEMP 36.2–37; O2SAT 92–99
[2023-09-07 05:30] LABS: Basophils % 0.1 %; Lymphocytes # 0.5 10^3/uL (0.8-4.8); Lymphocytes % 4.7 %; Mean Corpuscular HGB Conc 31.7 g/dL (30-55); Mean Corpuscular Hemoglobin 30.8 pg (27-33); Mean Platelet Volume 10.3 fL (7.4-10.4); Monocytes # 0.9 10^3/uL (0.2-0.9); Monocytes % 8.7 %; Neutrophils # 8.34 10^3/uL (1.8-7.7); Neutrophils % 85.6 %; Nucleated Red Blood Cells % 0.4 %; Platelet Count 260 10^3/cmm (157-399); Red Blood Count 2.37 10^6/uL (3.85-5.65); Red Cell Distribution Width 14.2 % (12.1-15.1); White Blood Count 9.75 10^3/uL (3.29-11.43)
[2023-09-07 05:48] LABS: Alanine Aminotransferase < 5 U/L (0-33); Albumin Level 2.5 g/dL (3.5-5.2); Alkaline Phosphatase 87 U/L (35-105); Anion Gap 18.8 (5-19); Aspartate Amino Transferase 9 U/L (0-32); Blood Urea Nitrogen 27 mg/dL (6-20); Carbon Dioxide 25 mmol/L (22-29); Chloride 95 mmol/L (98-107); Globulin 3.6 g/dL (1.3-4.6); Glomerular Filtration Rate 10.9 mL/min (90-130); Glucose 97 mg/dL (65-115); Magnesium 1.9 mg/dL (1.7-2.3); Osmolality Calculated 285 mOsm/kg (285-295); Phosphorus 5.3 mg/dL (2.5-4.5); Potassium 3.8 mmol/L (3.5-5.1); Sodium 135 mmol/L (136-145); Total Bilirubin 0.3 mg/dL (0.15-1.2); Total Protein 6.1 g/dL (6.6-8.7)
[2023-09-07 06:05] LABS: Creatinine Clr Calc Pharmacy 12.2482
[2023-09-07 06:31] LABS: Glucose Point of Care 98 mg/dL (70-110)
--- NOTE | 2023-09-07 07:55 | PM.PN ---
Subjective Subjective: abdominal wall and back pain from wound. no sob or cp. has nausea. is weak, +leg and arm pains. Medications: Reviewed: Yes Medication Review Details: Current Medications Acetaminophen (Acetaminophen 325 Mg Tablet) 650 mg PO Q6H PRN PRN Reason: Mild/Mod Pain Or Temp >/= 101 Last Admin: 09/06/23 19:37 Dose: 650 mg Atorvastatin Calcium (Atorvastatin 40 Mg Tablet) 80 mg PO BEDTIME [facility] Last Admin: 09/06/23 21:43 Dose: 80 mg Bacitracin (Bacitracin Ointment Pkt) 1 each TOPICAL TID [facility]; Protocol Last Admin: 09/06/23 21:43 Dose: 1 each Carbidopa/Levodopa (Carbidopa-Levodopa 25-100mg Tablet) 0 each PO .COMPLEX [facility] Clopidogrel Bisulfate (Clopidogrel 75 Mg Tablet) 75 mg PO DAILY [facility] Last Admin: 09/06/23 09:36 Dose: 75 mg Collagenase (Collagenase Oint 30 Gm) 1 applic TOPICAL DAILY [facility] Last Admin: 09/06/23 09:35 Dose: 1 applic Cyclobenzaprine HCl (Cyclobenzaprine 10 Mg Tablet) 10 mg PO Q8H PRN PRN Reason: MUSCLE SPASMS Last Admin: 09/06/23 14:52 Dose: 10 mg Diphenhydramine HCl (Diphenhydramine 25 Mg Capsule) 25 mg PO BEDTIME@2000 [facility] Last Admin: 09/06/23 19:38 Dose: 25 mg Doxycycline Monohydrate (Doxycycline 100 Mg Tablet) 100 mg PO BID [facility]; Protocol Last Admin: 09/06/23 17:10 Dose: 100 mg Escitalopram Oxalate (Escitalopram 10 Mg Tablet) 40 mg PO DAILY@0800 [facility] Last Admin: 09/06/23 09:36 Dose: 40 mg Gabapentin (Gabapentin 100 Mg Capsule) 100 mg PO BID [facility] Last Admin: 09/06/23 17:10 Dose: 100 mg Heparin Sodium (Porcine) (Heparin 5,000 Unit/Ml Inj 1 Ml) 5,000 unit SUBCUT Q12H [facility] Last Admin: 09/06/23 19:38 Dose: 5,000 unit Hydromorphone HCl (Hydromorphone 4 Mg Tablet) 2 mg PO Q8H PRN PRN Reason: PAIN Last Admin: 09/07/23 00:56 Dose: 2 mg Dextrose (D5w) 500 mls @ 0 mls/hr IV ONCE PRN; Protocol PRN Reason: Adult Acute Hypoglycemia Prot Dextrose (D10w) 125 mls @ 750 mls/hr IV PRN PRN; Protocol PRN Reason: Adult Acute Hypoglycemia Nursing Protocol Dextrose (D10w) 250 mls @ 1,000 mls/hr IV PRN PRN; Protocol PRN Reason: Adult Acute Hypoglycemia Nursing Protocol Insulin Human Lispro (Insulin Lispro 100 Unit/1 Ml) 0 unit SUBCUT WM&BEDTIME [facility]; Protocol Last Admin: 09/07/23 07:13 Dose: Not Given Levothyroxine Sodium (Levothyroxine 50 Mcg Tablet) 50 mcg PO DAILY [facility] Last Admin: 09/06/23 09:36 Dose: 50 mcg Metoprolol Succinate (Metoprolol Succinate Er (24 Hr) 50 Mg Tablet) 50 mg PO DAILY [facility] Last Admin: 09/06/23 09:42 Dose: Not Given Multivitamins (M-Euabpuf-Hjazyqn C Tablet) 1 each PO DAILY [facility] Last Admin: 09/06/23 09:36 Dose: 1 each Nystatin (Nystatin Cream 30 Gm) 1 applic TOPICAL BID [facility] Last Admin: 09/06/23 17:11 Dose: 1 applic Ondansetron HCl (Ondansetron 2 Mg/Ml Sdv 2 Ml) 4 mg IVP Q8H PRN PRN Reason: vomiting, or N/V if npo Ondansetron HCl (Ondansetron 4 Mg Tablet) 4 mg PO Q8H PRN PRN Reason: NAUSEA Ropinirole HCl (Ropinirole 0.25 Mg Tablet) 0.5 mg PO DAILY@1999 [facility] Last Admin: 09/06/23 19:38 Dose: 0.5 mg Vitals/I&O/Wt Last Vital Signs Temp 97.9 F 09/07/23 07:40 Pulse 101 H 09/07/23 07:40 Resp 21 H 09/07/23 07:40 BP 90/53 09/07/23 07:40 Pulse Ox 92 09/07/23 07:40 O2 Del Method Room Air 09/07/23 07:40 O2 Flow Rate 2 09/06/23 08:00 09/06/23 09/07/23 09/07/23 22:59 06:59 14:59 Intake Total 240 / 660 Balance 240 / -1640 Weight last 48 hrs Weight 64.6 kg Weight 67.727 kg Weight 88.451 kg Weight 88.451 kg Physical Exam Narrative: obese, uncomfortable, NARD BP low heent- nc/at, eomi neck supple lungs clear heart reg +s1, s2, +RAMA abd soft, + bs, nt, nd ext RUE AVF w/ thrill and bruit left arm broken 1+ leg edema neuro- awake, alert skin + lesion on abdomen, pelvic area and back- examined by nurse telehealth visit- with RN Data 09/07/23 05:06 09/07/23 05:06 A&P Assessment and plan (1) ESRD (end stage renal disease): 57 yr old female w/ weakness, anemia, and Left humeral fracture. 1. anemia- ferritin >[id number]- Q malignancy, Q HLH or sepsis or COVID or received significant iron -no iv iron give epo -consider blood transfusion with next dialysis 2. ESRD- She has ESRD since 2018 from htn, dm, obesity -she is off schedule- repeat HD tomorrow 3. hypothyroidism- normal tsh on levothyroxine 4. IDDM - monitor for hypoglycemia 5. htn- bp low. hold meds 6. hyponatremia- improving w/ hd. 7. cellulitis - renal dose abx 8. renal bone mineral metabolism- pth 336 vit d level 31 - phos improving on binder seen and examined w/ rN- telehealth visit informed consent for telehealth obtained from pt Plan see above Attestations Medical Necessity Statement*: esrd, cellulitis, anemia Time Spent in Patient Care: 16 - 35 minutes Coding Level of Care Code Acute Code for Chg Fwd Diagnoses ESRD (end stage renal disease) N18.6
[2023-09-07] MEDS: heparin 5,000 unit/mL INJ 1 mL 5000 UNIT SUBCUT (08:29)
[2023-09-07] MEDS: clopidogrel 75 mg Tablet PO (08:29)
[2023-09-07] MEDS: b-complex-vitamin c Tablet 1 EACH PO (08:29)
[2023-09-07] MEDS: gabapentin 100 mg Capsule PO ×2 (08:29→17:36)
[2023-09-07] MEDS: bacitracin ointment Pkt 1 EACH TOPICAL ×3 (08:29→20:19)
[2023-09-07] MEDS: escitalopram 10 mg Tablet 40 MG PO (08:29)
[2023-09-07] MEDS: levothyroxine 50 mcg Tablet PO (08:29)
[2023-09-07] MEDS: nystatin cream 30 gm 1 APPLIC TOPICAL ×2 (08:30→17:35)
[2023-09-07] MEDS: collagenase oint 30 gm 1 APPLIC TOPICAL (08:30)
[2023-09-07] MEDS: doxycycline 100 mg Tablet PO ×2 (08:30→17:36)
[2023-09-07] MEDS: cyclobenzaprine 10 mg Tablet PO ×2 (08:30→16:01)
--- NOTE | 2023-09-07 10:36 | PC.CHAP ---
Pastoral Care Encounter/Spiritual Assessment Type of Contact [] Declined revenue manager visit [] Patient/Family/Request visit [] Outpatient visit [] Follow-up visit [] Physician referral [] Code/Alert [] Routine visit [] Staff referral [] Actively dying [] Patient sleeping [] Family support [] [] Out of room [] Palliative care [] [x] Receiving care in room [] Pre-surgical visit [] Trauma [] Long length of stay [] ICU visit [] Other: Relational/Emotional Strength [] Patient feels connected with others/family/visitors/staff [] Distress [] Loneliness/isolation [] Abandonment Spirituality of Patient [] Person of Sabina [] Attends Nondenominational of their [place]ina [] Believes in Prayer [] Reads Bible or Adventism materials [] There are Spiritual issues to be addressed Ship Joiner Interventions [x] Prayer [] Active listening [] Non-anxious presence [] Spiritual/emotional support [] Crisis/trauma care [] Spiritual counseling [] Bereavement support [] Provided bereavement packet [] Provided Bible/devotional materials [] Provided toy/stuffed animal, coloring book to patient or family member [] Provided Communion [] Anointing/[place] [] Salvation [] Completed spiritual assessment [] Other: Impact on Illness or Injury [] Angry [] Fearful [] Anxious [] Often cries [] Exhaustion [] Unable to work [] Unable to attend lutheran [] Unable to walk/stand [] Unable to read [] Unable to drive [] Unable to eat/drink [] Unable to sleep [] Unable to be with family [] Patient intubated [] Other: Summary Time spent with patient 2 min
[2023-09-07 10:43] LABS: Glucose Point of Care 117 mg/dL (70-110)
--- NOTE | 2023-09-07 11:38 | PM.PN ---
Subjective Subjective: Patient will get 1 unit PRBC Spoke with nephro Patient is complaining of her tailbone hurting Also complaining of soreness around abdominal pannus Vitals/I&O/Wt Last Vital Signs Temp 97.1 F L 09/07/23 10:38 Pulse 103 H 09/07/23 10:38 Resp 18 09/07/23 10:38 BP 132/92 09/07/23 10:38 Pulse Ox 97 09/07/23 10:38 O2 Del Method Nasal Cannula 09/07/23 10:38 O2 Flow Rate 2 09/07/23 10:38 09/06/23 09/07/23 09/07/23 22:59 06:59 14:59 Intake Total 240 / 660 120 / 120 Balance 240 / -1640 120 / 120 Weight last 48 hrs Weight 64.6 kg Weight 67.727 kg Weight 88.451 kg Weight 88.451 kg Physical Exam Narrative: Awake and alert Currently on 2 L Complaining of pain in her tailbone and abdominal pannus Abdominal pannus cellulitis with skin maceration Nonfocal neuroexam S1, S2 GCS 15 Mild cognitive impairment Data 09/07/23 05:06 09/07/23 05:06 A&P Assessment and plan (1) Hypertension: (2) Diabetes: (3) Insulin dependent type 2 diabetes mellitus: (4) Failure to thrive: (5) ESRD (end stage renal disease): (6) Abdominal wall cellulitis: (7) Closed left humeral fracture: Qualifiers: Encounter type: initial encounter Humerus Location: proximal (8) Weakness: Plan Anemia of chronic disease Will request 1 unit PRBC End-stage renal disease Dialysis as per the schedule Appreciate nephro recommendation Failure to thrive Generalized weakness Continue PT evaluation and daily basis Chronic hypoxia, patient uses 2 L of oxygen at nighttime currently requiring 2 L 01/11 Complaining of back pain, tailbone hurting and soreness for abdominal pannus Abdominal wall cellulitis Added topical antibiotic along Awaiting authorization to go to skilled nursing Full code Attestations Medical Necessity Statement*: Continue medical management Diagnoses Hypertension I10 Diabetes E11.9 Insulin dependent type 2 diabetes mellitus E11.9; Z79.4 Failure to thrive ESRD (end stage renal disease) N18.6 Abdominal wall cellulitis L03.311 Closed left humeral fracture S42.302A Encounter type: initial encounter Humerus Location: proximal Weakness R53.1
--- NOTE | 2023-09-07 13:43 | XR_ITS ---
WS: [id number] Exam: XR shoulder LT min 2V* [id number] Date/Time of Exam: 09/07/2023 1:47 PM Reason For Exam: Fracture follow-up Comparison 09/05/2023. Again noted is fracture of the greater tuberosity of the humerus remaining in satisfactory position. No positional change. No other fractures of the shoulder are noted. Mild degenerative change at the A C joint. Normal soft tissues. IMPRESSION1. Fracture proximal humerus remaining in satisfactory position without change.
[2023-09-07 17:04] LABS: Glucose Point of Care 139 mg/dL (70-110)
[2023-09-07 18:57] LABS: Basophils % 0.1 %; Hematocrit 25.4 % (36-47); Lymphocytes # 0.5 10^3/uL (0.8-4.8); Lymphocytes % 5.5 %; Mean Corpuscular HGB Conc 33.1 g/dL (30-55); Mean Corpuscular Hemoglobin 30.5 pg (27-33); Mean Corpuscular Volume 92.4 fl (85-98); Monocytes # 0.6 10^3/uL (0.2-0.9); Monocytes % 6.5 %; Neutrophils # 8.23 10^3/uL (1.8-7.7); Neutrophils % 86.8 %; Nucleated Red Blood Cells % 0 %; Platelet Count 275 10^3/cmm (157-399); Red Blood Count 2.75 10^6/uL (3.85-5.65); Red Cell Distribution Width 15.2 % (12.1-15.1); White Blood Count 9.48 10^3/uL (3.29-11.43)
[2023-09-07] MEDS: atorvastatin 40 mg Tablet 80 MG PO (20:18)
[2023-09-07] MEDS: diphenhydrAMINE 25 mg Capsule PO (20:19)
[2023-09-07] MEDS: ropinirole 0.25 mg Tablet 0.5 MG PO (20:19)
[2023-09-07 20:26] LABS: Glucose Point of Care 111 mg/dL (70-110)
[2023-09-08] VITALS (22 sets, daily range): BP systolic 92–172; BP diastolic 39–96; PULSE 75–109; RESP 10–24; TEMP 36.1–37.4; O2SAT 2–100
[2023-09-08 05:23] LABS: Basophils % 0.1 %; Hematocrit 26.4 % (36-47); Lymphocytes # 0.6 10^3/uL (0.8-4.8); Lymphocytes % 7.9 %; Mean Corpuscular HGB Conc 32.2 g/dL (30-55); Mean Corpuscular Volume 93.3 fl (85-98); Monocytes # 0.7 10^3/uL (0.2-0.9); Monocytes % 8.8 %; Neutrophils # 6.02 10^3/uL (1.8-7.7); Nucleated Red Blood Cells % 0 %; Platelet Count 273 10^3/cmm (157-399); Red Blood Count 2.83 10^6/uL (3.85-5.65); Red Cell Distribution Width 15.7 % (12.1-15.1); White Blood Count 7.35 10^3/uL (3.29-11.43)
[2023-09-08 05:53] LABS: Alanine Aminotransferase < 5 U/L (0-33); Albumin Level 2.5 g/dL (3.5-5.2); Alkaline Phosphatase 86 U/L (35-105); Aspartate Amino Transferase 12 U/L (0-32); Blood Urea Nitrogen 36 mg/dL (6-20); Calcium 8.9 mg/dL (8.5-10.5); Carbon Dioxide 25 mmol/L (22-29); Chloride 92 mmol/L (98-107); Globulin 3.6 g/dL (1.3-4.6); Glucose 98 mg/dL (65-115); Magnesium 1.9 mg/dL (1.7-2.3); Osmolality Calculated 282 mOsm/kg (285-295); Phosphorus 5.7 mg/dL (2.5-4.5); Sodium 132 mmol/L (136-145); Total Bilirubin 0.3 mg/dL (0.15-1.2); Total Protein 6.1 g/dL (6.6-8.7)
[2023-09-08 06:02] LABS: Creatinine Clr Calc Pharmacy 9.9849
[2023-09-08 06:36] LABS: Glucose Point of Care 133 mg/dL (70-110)
--- NOTE | 2023-09-08 07:25 | P.PN_ITS ---
Subjective 2 Subjective: short of breath, weak. abd wall and backside wound. nausea. poor appetite. no curran or cp Medications: Reviewed: Yes Medication Review Details: Current Medications Acetaminophen (Acetaminophen 325 Mg Tablet) 650 mg PO Q6H PRN PRN Reason: Mild/Mod Pain Or Temp >/= 101 Last Admin: 09/06/23 19:37 Dose: 650 mg Atorvastatin Calcium (Atorvastatin 40 Mg Tablet) 80 mg PO BEDTIME [facility] Last Admin: 09/07/23 20:18 Dose: 80 mg Bacitracin (Bacitracin Ointment Pkt) 1 each TOPICAL TID [facility]; Protocol Last Admin: 09/07/23 20:19 Dose: 1 each Carbidopa/Levodopa (Carbidopa-Levodopa 25-100mg Tablet) 0 each PO .COMPLEX [facility] Collagenase (Collagenase Oint 30 Gm) 1 applic TOPICAL DAILY [facility] Last Admin: 09/07/23 08:30 Dose: 1 applic Cyclobenzaprine HCl (Cyclobenzaprine 10 Mg Tablet) 10 mg PO Q8H PRN PRN Reason: MUSCLE SPASMS Last Admin: 09/07/23 16:01 Dose: 10 mg Diphenhydramine HCl (Diphenhydramine 25 Mg Capsule) 25 mg PO BEDTIME@2000 [facility] Last Admin: 09/07/23 20:19 Dose: 25 mg Doxycycline Monohydrate (Doxycycline 100 Mg Tablet) 100 mg PO BID [facility]; Protocol Last Admin: 09/07/23 17:36 Dose: 100 mg Escitalopram Oxalate (Escitalopram 10 Mg Tablet) 40 mg PO DAILY@0800 [facility] Last Admin: 09/07/23 08:29 Dose: 40 mg Gabapentin (Gabapentin 100 Mg Capsule) 100 mg PO BID [facility] Last Admin: 09/07/23 17:36 Dose: 100 mg Hydromorphone HCl (Hydromorphone 4 Mg Tablet) 2 mg PO Q8H PRN PRN Reason: PAIN Last Admin: 09/08/23 03:44 Dose: 2 mg Dextrose (D5w) 500 mls @ 0 mls/hr IV ONCE PRN; Protocol PRN Reason: Adult Acute Hypoglycemia Prot Dextrose (D10w) 125 mls @ 750 mls/hr IV PRN PRN; Protocol PRN Reason: Adult Acute Hypoglycemia Nursing Protocol Dextrose (D10w) 250 mls @ 1,000 mls/hr IV PRN PRN; Protocol PRN Reason: Adult Acute Hypoglycemia Nursing Protocol Insulin Human Lispro (Insulin Lispro 100 Unit/1 Ml) 0 unit SUBCUT WM&BEDTIME [facility]; Protocol Last Admin: 09/07/23 20:24 Dose: Not Given Levothyroxine Sodium (Levothyroxine 50 Mcg Tablet) 50 mcg PO DAILY [facility] Last Admin: 09/07/23 08:29 Dose: 50 mcg Metoprolol Succinate (Metoprolol Succinate Er (24 Hr) 50 Mg Tablet) 50 mg PO DAILY [facility] Last Admin: 09/07/23 08:34 Dose: Not Given Multivitamins (W-Glsornd-Dnepvll C Tablet) 1 each PO DAILY [facility] Last Admin: 09/07/23 08:29 Dose: 1 each Nystatin (Nystatin Cream 30 Gm) 1 applic TOPICAL BID [facility] Last Admin: 09/07/23 17:35 Dose: 1 applic Ondansetron HCl (Ondansetron 2 Mg/Ml Sdv 2 Ml) 4 mg IVP Q8H PRN PRN Reason: vomiting, or N/V if npo Ondansetron HCl (Ondansetron 4 Mg Tablet) 4 mg PO Q8H PRN PRN Reason: NAUSEA Ropinirole HCl (Ropinirole 0.25 Mg Tablet) 0.5 mg PO DAILY@1999 [facility] Last Admin: 09/07/23 20:19 Dose: 0.5 mg Sodium Chloride (Sodium Chloride 0.9% 100 Ml Bag) 50 ml IV PRN PRN PRN Reason: Blood transfusion prime and flush Stop: 09/08/23 08:54 Vitals/I&O/Wt Last Vital Signs Temp 97.8 F 09/08/23 07:22 Pulse 87 09/08/23 07:22 Resp 18 09/08/23 07:22 BP 120/67 09/08/23 07:22 Pulse Ox 98 09/08/23 07:22 O2 Del Method Nasal Cannula 09/08/23 07:22 O2 Flow Rate 2 09/07/23 20:00 09/07/23 09/08/23 09/08/23 22:59 06:59 14:59 Intake Total 470 / 710 0 / 710 Balance 470 / 710 0 / 710 Weight last 48 hrs Weight 73.573 kg Weight 64.6 kg Physical Exam 2 Narrative: obese, using nc 02- 2l, mild shortness of breath VSS heent- nc/at, eomi neck supple lungs crackles b/l heart reg +s1, s2, +RAMA abd soft, + bs, nt, nd ext RUE AVF w/ thrill and bruit left arm broken 1+ leg edema neuro- awake, alert skin + lesion on abdomen, pelvic area and back- examined by nurse telehealth visit- with RN Data 09/08/23 05:05 09/08/23 05:05 A&P Assessment and plan (1) ESRD (end stage renal disease): 57 yr old female w/ weakness, anemia, and Left humeral fracture. 1. anemia- ferritin >94698- Q malignancy, Q HLH or sepsis or COVID or received significant iron -no iv iron give epo -hgb improved s/p 1 unit prbc transfusion 2. ESRD- She has ESRD since 2018 from htn, dm, obesity -she is off schedule- repeat HD today- lower weight as tolerated 3. hypothyroidism- normal tsh on levothyroxine 4. IDDM - monitor for hypoglycemia 5. htn- bp improving 6. hyponatremia- improving w/ hd. 7. cellulitis - renal dose abx for debridement today 8. renal bone mineral metabolism- pth 336 vit d level 31 - phos improving on binder seen and examined w/ rN- telehealth visit informed consent for telehealth obtained from pt Plan see above Attestations 2 Medical Necessity Statement*: esrd, arm fx, and cellulitis Time Spent in Patient Care: 16 - 35 minutes Coding Level of Care Code Acute Code for Chg Fwd Diagnoses ESRD (end stage renal disease) N18.6
[2023-09-08] MEDS: sevelamer 800 mg Tablet 1600 MG PO ×3 (09:39→20:58)
[2023-09-08] MEDS: levothyroxine 50 mcg Tablet PO (09:39)
[2023-09-08] MEDS: b-complex-vitamin c Tablet 1 EACH PO (09:39)
[2023-09-08] MEDS: bacitracin ointment Pkt 1 EACH TOPICAL ×3 (09:39→20:58)
[2023-09-08] MEDS: gabapentin 100 mg Capsule PO ×2 (09:39→17:13)
[2023-09-08] MEDS: escitalopram 10 mg Tablet 40 MG PO (09:39)
[2023-09-08] MEDS: acetaminophen 325 mg Tablet 650 MG PO (09:40)
[2023-09-08] MEDS: doxycycline 100 mg Tablet PO ×2 (09:40→17:13)
[2023-09-08] MEDS: cyclobenzaprine 10 mg Tablet PO ×2 (09:40→16:05)
[2023-09-08] MEDS: collagenase oint 30 gm 1 APPLIC TOPICAL (09:40)
[2023-09-08] MEDS: nystatin cream 30 gm 1 APPLIC TOPICAL ×2 (09:41→17:15)
--- NOTE | 2023-09-08 10:11 | P.CONIM_ITS ---
Providers/Reason For Consult 2 Consulting Physician/Specialty*: Dr. Dario Adams, DO/General surgery Reason for Consult*: Sacral decubitus ulcer Attending Physician: Jigar Flanagan MD Primary Care Provider: Vivienne Schulz MD History of Present Illness History of Present Illness Elvi Kaiser is a 57 year old female, with history of diabetes, CVA on Plavix, end-stage renal disease on hemodialysis and other comorbidities as below, who is currently in the hospital with cellulitis of her pannus and an unstageable sacral decubitus ulcer. She reports that she has had pain at her tailbone for several months. This pain is constant and does not radiate. Laying on it causes sharp pain. Offloading pressure reduces the pain. She denies any fever or chills. General surgery was consulted for possible debridement of sacral decubitus ulcer. Review of Systems 2 General: Reports: 10 or more systems reviewed and unremarkable except in HPI and below Medications/Allergies Home Medications Medication Instructions Recorded Confirmed Last Taken Type escitalopram oxalate 20 mg tablet 40 mg PO DAILY@0800 05/01/19 09/07/23 08/23/23 History (Lexapro) vit B,C-folic ac 800 mcg-zinc 12.5 1 tab PO DAILY@199905/01/19 09/07/23 08/23/23 History mg-selen-D3 2,000 unit-vit E tablet (RenaPlex-D) carbidopa 25 mg-levodopa 100 mg See Rx Instructions .Route .COMPLEX 05/20/20 09/07/23 08/22/23 History tablet diphenhydramine HCl 25 mg capsule 25 mg PO BEDTIME@199905/20/20 09/07/23 08/23/23 History (Benadryl) ferric citrate 210 mg iron tablet 630 mg PO TID@08,12,20 05/20/20 09/07/23 08/23/23 History (Auryxia) ropinirole 0.5 mg tablet 0.5 mg PO DAILY@199906/21/20 09/07/23 08/23/23 History blood-glucose meter,continuous #1 ea 09/24/21 09/07/23 Unknown Rx (Dexcom G6 Furnace Tapper) blood-glucose sensor (Dexcom G6 #9 ea 09/24/21 09/07/23 Unknown Rx Sensor device) clopidogrel 75 mg tablet 75 mg PO DAILY #30 tabs 11/27/21 09/07/23 08/23/23 Rx blood-glucose transmitter (Dexcom #3 ea 12/24/21 09/07/23 Unknown Rx G6 Transmitter device) glucagon 1 mg solution for 1 mg SUBCUT Q20M PRN hypoglycemia 12/24/21 09/07/23 Unknown Rx injection (Glucagon Emergency Kit) #1 ea amlodipine 2.5 mg tablet (Norvasc) 2.5 mg PO DAILY 09/28/22 09/07/23 08/23/23 History gabapentin 100 mg capsule 100 mg PO TID #90 caps 04/21/23 09/07/23 08/23/23 Rx levothyroxine 50 mcg tablet 50 mcg PO DAILY 08/24/23 09/07/23 08/23/23 History metoprolol succinate 50 mg 50 mg PO DAILY 08/24/23 09/07/23 08/23/23 History tablet,extended release 24 hr mupirocin 2 % topical ointment 1 applic topical TID PRN Skin 08/24/23 09/07/23 Unknown History Irritation prednisone 5 mg tablet 5 mg PO DAILY PRN Allergic Reaction 08/24/23 09/07/23 08/23/23 History rosuvastatin 20 mg tablet 20 mg PO BEDTIME 08/24/23 09/07/23 08/23/23 History hydromorphone 2 mg tablet 2 mg PO Q8H PRN pain #10 tabs 08/25/23 09/07/23 Unknown Rx (Dilaudid) cyclobenzaprine 10 mg tablet 10 mg PO Q8H PRN MUSCLE SPASMS #14 09/04/23 09/07/23 Unknown Rx tabs atorvastatin 80 mg tablet 80 mg PO DAILY 09/06/23 09/07/23 Unknown History Allergies Allergy/AdvReac Type Severity Reaction Status Date / Time codeine Allergy ALGY-Hives Verified 09/07/23 07:46 fentanyl Allergy ALGY-Hives Verified 09/07/23 07:46 hydrocodone Allergy ALGY-Hives Verified 09/07/23 07:46 influenza virus vaccine qs Allergy ALGY-Hives Verified 09/07/23 07:46 (65 years up) [From [employer] (65y up)(PF)] Iodinated Contrast Media Allergy ALGY-Anaphy Verified 09/07/23 07:46 laxis kiwi Allergy ALGY-Anaphy Verified 09/07/23 07:46 laxis lisinopril Allergy ADR-Cough Verified 09/07/23 07:46 NSAIDS (Non-Steroidal Allergy ALGY-Hives Verified 09/07/23 07:46 Anti-Inflamma oxycodone Allergy ALGY-Hives Verified 09/07/23 07:46 pineapple Allergy ALGY-Anaphy Verified 09/07/23 07:46 laxis promethazine Allergy Unknown Verified 09/07/23 07:46 strawberry Allergy ALGY-Anaphy Verified 09/07/23 07:46 laxis tramadol Allergy ALGY-Hives Verified 09/07/23 07:46 vaccine adjuvant emulsion Allergy ALGY-Hives Verified 09/07/23 07:46 MF59C.1 [From [employer] (65y up)(PF)] Current Medications Generic Name Dose Route Start Last Admin Trade Name Freq PRN Reason Stop Dose Admin Acetaminophen 650 mg 09/05/23 20:35 09/08/23 09:40 Acetaminophen 325 Mg Tablet PO 650 mg Q6H PRN Administration Mild/Mod Pain Or Temp >/= 101 Atorvastatin Calcium 80 mg 09/05/23 21:00 09/07/23 20:18 Atorvastatin 40 Mg Tablet PO 80 mg BEDTIME JAMIE Administration Bacitracin 1 each 09/06/23 15:00 09/08/23 09:39 Bacitracin Ointment Pkt TOPICAL 1 each TID JAMIE Administration Protocol Collagenase 1 applic 09/06/23 09:00 09/08/23 09:40 Collagenase Oint 30 Gm TOPICAL 1 applic DAILY JAMIE Administration Cyclobenzaprine HCl 10 mg 09/05/23 20:35 09/08/23 09:40 Cyclobenzaprine 10 Mg Tablet PO 10 mg Q8H PRN Administration MUSCLE SPASMS Diphenhydramine HCl 25 mg 09/05/23 20:35 09/07/23 20:19 Diphenhydramine 25 Mg Capsule PO 25 mg BEDTIME@2000 JAMIE Administration Doxycycline Monohydrate 100 mg 09/06/23 18:00 09/08/23 09:40 Doxycycline 100 Mg Tablet PO 100 mg BID JAMIE Administration Protocol Escitalopram Oxalate 40 mg 09/06/23 08:00 09/08/23 09:39 Escitalopram 10 Mg Tablet PO 40 mg DAILY@0800 JAMIE Administration Gabapentin 100 mg 09/06/23 09:00 09/08/23 09:39 Gabapentin 100 Mg Capsule PO 100 mg BID JAMIE Administration Hydromorphone HCl 2 mg 09/05/23 20:51 09/08/23 03:44 Hydromorphone 4 Mg Tablet PO 2 mg Q8H PRN Administration PAIN Insulin Human Lispro 0 unit 09/05/23 21:00 09/08/23 07:40 Insulin Lispro 100 Unit/1 Ml SUBCUT Not Given WM&BEDTIME [facility] Protocol Levothyroxine Sodium 50 mcg 09/06/23 09:00 09/08/23 09:39 Levothyroxine 50 Mcg Tablet PO 50 mcg DAILY JAMIE Administration Metoprolol Succinate 50 mg 09/06/23 09:00 09/08/23 09:40 Metoprolol Succinate Er (24 Hr) 50 Mg Tablet PO Not Given DAILY [facility] Multivitamins 1 each 09/06/23 09:00 09/08/23 09:39 F-Uvjipmh-Oidezzt C Tablet PO 1 each DAILY JAMIE Administration Nystatin 1 applic 09/06/23 03:05 09/08/23 09:41 Nystatin Cream 30 Gm TOPICAL 1 applic BID JAMIE Administration Ropinirole HCl 0.5 mg 09/06/23 20:00 09/07/23 20:19 Ropinirole 0.25 Mg Tablet PO 0.5 mg DAILY@2000 JAMIE Administration Sevelamer Carbonate 1,600 mg 09/08/23 09:00 09/08/23 09:39 Sevelamer 800 Mg Tablet PO 1,600 mg TID JAMIE Administration PFSH Acute 2 PFSH: Medical History Rash Seropositive rheumatoid arthritis Left foot pain Long-term insulin use Diabetes type 2, uncontrolled Appetite loss MCI (mild cognitive impairment) Hypothyroidism Insulin dependent type 2 diabetes mellitus COVID-19 Hypertension Anxiety ESRD (end stage renal disease) Diabetes Hyperlipidemia Chronic back pain De Quervain's tenosynovitis Surgical History Status post colonoscopy S/P dialysis catheter insertion Removed 07/14/20 S/P arteriovenous (AV) fistula creation History of temporal artery biopsy H/O dilation and curettage H/O section Hx of cholecystectomy History of appendectomy History of carpal tunnel repair H/O neck surgery fusion Family History Father Bleeding disorder Other Diabetes Heart disease Hyperlipidemia Hypertension Kidney problem Migraines Stroke Denies family history of Anesthesia complication Social History Smoking and tobacco/nicotine status: never used tobacco/nicotine Second hand smoke exposure: No Alcohol intake: never Substance/Drug Use: never Adopted: No Caregiver/support person: Yes Lives independently: Yes Household members: family Housing: House Marital status: Single Highest education level completed: High School Graduate service: No Current occupational status: disabled Current occupational exposures/hazards: No Pets and animals: Yes Pets & animals: dog(s) Sexually active: No Do you think of yourself as: Straight/Heterosexual Current gender identity: Female Sabina/Muslim: Samaritan Special sabina needs: No Agree to transfusion: No Vitals/I&O/Wt Last Vital Signs Temp 97.8 F 09/08/23 07:22 Pulse 87 09/08/23 07:22 Resp 18 09/08/23 07:22 BP 120/67 09/08/23 07:22 Pulse Ox 98 09/08/23 07:22 O2 Del Method Nasal Cannula 09/08/23 07:22 O2 Flow Rate 2 09/07/23 20:00 09/07/23 09/08/23 09/08/23 22:59 06:59 14:59 Intake Total 470 / 710 0 / 710 Balance 470 / 710 0 / 710 Weight last 48 hrs Weight 162 lb 3.2 oz Weight 142 lb 6.698 oz Physical Exam 2 Narrative: General : Patient is well developed, morbidly obese, no acute distress, oriented x3 Head : Normal cephalic, a-traumatic. Ears : Pinnae and external canal are normal. Hearing is normal. Eyes : PERRLA, Sclera and injection are normal. No conjunctival discharge. Nose : Mucous membranes are without erythema. Throat : buccal mucosa is normal, gums are without significant recession or hypertrophy. Lungs : Equal chest rise bilaterally, no use of accessory muscles, trachea is midline. Cor : Rate and rhythm are normal. Abdomen : Soft, ND, mild tenderness over cellulitis of her pannus, no g/r/m Extremities : No edema, no cyanosis or clubbing, dorsalis pedis pulses are present bilaterally, non-tender to palpation of calves. Upper extremities are normal bilaterally. Skin: There is an unstageable sacral decubitus ulcer covered by eschar Back : non-tender to palpation, no CVA tenderness. Neuro : CN II - XII intact, Upper and lower extremities have equal and full strength Data 09/08/23 05:05 09/08/23 05:05 A&P Assessment and plan (1) Decubitus ulcer of sacral region, unstageable: (2) Abdominal wall cellulitis: Plan Currently on doxycycline per primary Sharp excisional debridement of sacral decubitus ulcer with possible bone biopsy The risks and benefits of procedure, including but not limited to, bleeding, scar, numbness, pain, poor wound healing, need for further surgery, were explained to the patient. She is understanding of the risks and wishes to proceed. Coding Level of Care Code 57555 Diagnoses Decubitus ulcer of sacral region, unstageable L89.150 Abdominal wall cellulitis L03.311
--- NOTE | 2023-09-08 10:44 | PC.NURSE ---
This nurse gave report to CIARA Peter at 1042am.
--- NOTE | 2023-09-08 11:02 | P.ANESASSM_ITS ---
Pre-Anesthetic Assessment Height/Weight: Height 1.52 m Weight 73.573 kg Temp Pulse Resp BP Pulse Ox O2 Del Method O2 Flow Rate 97.8 F 87 18 120/67 98 Nasal Cannula 2 09/08/23 07:22 09/08/23 07:22 09/08/23 07:22 09/08/23 07:22 09/08/23 07:22 09/08/23 07:22 09/08/23 08:00 Operation Date: 09/08/23 16:00 Proposed Procedures p debridement sacral decubitus ulcer(Not Applicable) - Dario Adams DO Last intake: Intake Last Liquid Date 09/07/23 Last Liquid Time 22:00 Last Solid Date 09/07/23 Last Solid Time 18:00 CV/HEM Hypertension Kidney Stones Metabolic Thyroid Disease Neuropsych Cerebrovascular Accident Anesthetic Plan ASA status: 4 Anesthesia: Choice Risk of > 500 ml blood loss (7ml/kg in children): No Medications/Allergies Home Medications Medication Instructions Recorded Confirmed Last Taken Type escitalopram oxalate 20 mg tablet 40 mg PO DAILY@0805/01/19 09/07/23 08/23/23 History (Lexapro) vit B,C-folic ac 800 mcg-zinc 12.5 1 tab PO DAILY@199905/01/19 09/07/23 08/23/23 History mg-selen-D3 2,000 unit-vit E tablet (RenaPlex-D) carbidopa 25 mg-levodopa 100 mg See Rx Instructions .Route .COMPLEX 05/20/20 09/07/23 08/22/23 History tablet diphenhydramine HCl 25 mg capsule 25 mg PO BEDTIME@199905/20/20 09/07/23 08/23/23 History (Benadryl) ferric citrate 210 mg iron tablet 630 mg PO TID@08,05/20/20 09/07/23 08/23/23 History (Auryxia) ropinirole 0.5 mg tablet 0.5 mg PO DAILY@199906/21/20 09/07/23 08/23/23 History blood-glucose meter,continuous #1 ea 09/24/21 09/07/23 Unknown Rx (Dexcom G6 Convenience Store Clerk) blood-glucose sensor (Dexcom G6 #9 ea 09/24/21 09/07/23 Unknown Rx Sensor device) clopidogrel 75 mg tablet 75 mg PO DAILY #30 tabs 11/27/21 09/07/23 08/23/23 Rx blood-glucose transmitter (Dexcom #3 ea 12/24/21 09/07/23 Unknown Rx G6 Transmitter device) glucagon 1 mg solution for 1 mg SUBCUT Q20M PRN hypoglycemia 12/24/21 09/07/23 Unknown Rx injection (Glucagon Emergency Kit) #1 ea amlodipine 2.5 mg tablet (Norvasc) 2.5 mg PO DAILY 09/28/22 09/07/23 08/23/23 History gabapentin 100 mg capsule 100 mg PO TID #90 caps 04/21/23 09/07/23 08/23/23 Rx levothyroxine 50 mcg tablet 50 mcg PO DAILY 08/24/23 09/07/23 08/23/23 History metoprolol succinate 50 mg 50 mg PO DAILY 08/24/23 09/07/23 08/23/23 History tablet,extended release 24 hr mupirocin 2 % topical ointment 1 applic topical TID PRN Skin 08/24/23 09/07/23 Unknown History Irritation prednisone 5 mg tablet 5 mg PO DAILY PRN Allergic Reaction 08/24/23 09/07/23 08/23/23 History rosuvastatin 20 mg tablet 20 mg PO BEDTIME 08/24/23 09/07/23 08/23/23 History hydromorphone 2 mg tablet 2 mg PO Q8H PRN pain #10 tabs 08/25/23 09/07/23 Unknown Rx (Dilaudid) cyclobenzaprine 10 mg tablet 10 mg PO Q8H PRN MUSCLE SPASMS #14 09/04/23 09/07/23 Unknown Rx tabs atorvastatin 80 mg tablet 80 mg PO DAILY 09/06/23 09/07/23 Unknown History Allergies Allergy/AdvReac Type Severity Reaction Status Date / Time codeine Allergy ALGY-Hives Verified 09/07/23 07:46 fentanyl Allergy ALGY-Hives Verified 09/07/23 07:46 hydrocodone Allergy ALGY-Hives Verified 09/07/23 07:46 influenza virus vaccine qs Allergy ALGY-Hives Verified 09/07/23 07:46 [id number](65 years up) [From [employer] (65y up)(PF)] Iodinated Contrast Media Allergy ALGY-Anaphy Verified 09/07/23 07:46 laxis kiwi Allergy ALGY-Anaphy Verified 09/07/23 07:46 laxis lisinopril Allergy ADR-Cough Verified 09/07/23 07:46 NSAIDS (Non-Steroidal Allergy ALGY-Hives Verified 09/07/23 07:46 Anti-Inflamma oxycodone Allergy ALGY-Hives Verified 09/07/23 07:46 pineapple Allergy ALGY-Anaphy Verified 09/07/23 07:46 laxis promethazine Allergy Unknown Verified 09/07/23 07:46 strawberry Allergy ALGY-Anaphy Verified 09/07/23 07:46 laxis tramadol Allergy ALGY-Hives Verified 09/07/23 07:46 vaccine adjuvant emulsion Allergy ALGY-Hives Verified 09/07/23 07:46 MF59C.1 [From [employer] (65y up)(PF)] Current Medications Generic Name Dose Route Start Last Admin Trade Name Freq PRN Reason Stop Dose Admin Acetaminophen 650 mg 09/05/23 20:35 09/08/23 09:40 Acetaminophen 325 Mg Tablet PO 650 mg Q6H PRN Administration Mild/Mod Pain Or Temp >/= 101 Atorvastatin Calcium 80 mg 09/05/23 21:00 09/07/23 20:18 Atorvastatin 40 Mg Tablet PO 80 mg BEDTIME JAMIE Administration Bacitracin 1 each 09/06/23 15:00 09/08/23 09:39 Bacitracin Ointment Pkt TOPICAL 1 each TID JAMIE Administration Protocol Collagenase 1 applic 09/06/23 09:00 09/08/23 09:40 Collagenase Oint 30 Gm TOPICAL 1 applic DAILY JAMIE Administration Cyclobenzaprine HCl 10 mg 09/05/23 20:35 09/08/23 09:40 Cyclobenzaprine 10 Mg Tablet PO 10 mg Q8H PRN Administration MUSCLE SPASMS Diphenhydramine HCl 25 mg 09/05/23 20:35 09/07/23 20:19 Diphenhydramine 25 Mg Capsule PO 25 mg BEDTIME@2000 JAMIE Administration Doxycycline Monohydrate 100 mg 09/06/23 18:00 09/08/23 09:40 Doxycycline 100 Mg Tablet PO 100 mg BID JAMIE Administration Protocol Escitalopram Oxalate 40 mg 09/06/23 08:00 09/08/23 09:39 Escitalopram 10 Mg Tablet PO 40 mg DAILY@0800 JAMIE Administration Gabapentin 100 mg 09/06/23 09:00 09/08/23 09:39 Gabapentin 100 Mg Capsule PO 100 mg BID JAMIE Administration Hydromorphone HCl 2 mg 09/05/23 20:51 09/08/23 03:44 Hydromorphone 4 Mg Tablet PO 2 mg Q8H PRN Administration PAIN Insulin Human Lispro 0 unit 09/05/23 21:00 09/08/23 07:40 Insulin Lispro 100 Unit/1 Ml SUBCUT Not Given WM&BEDTIME JAMIE Protocol Levothyroxine Sodium 50 mcg 09/06/23 09:00 09/08/23 09:39 Levothyroxine 50 Mcg Tablet PO 50 mcg DAILY JAMIE Administration Metoprolol Succinate 50 mg 09/06/23 09:00 09/08/23 09:40 Metoprolol Succinate Er (24 Hr) 50 Mg Tablet PO Not Given DAILY JAMIE Multivitamins 1 each 09/06/23 09:00 09/08/23 09:39 H-Euvbnsy-Ylhknnn C Tablet PO 1 each DAILY JAMIE Administration Nystatin 1 applic 09/06/23 03:05 09/08/23 09:41 Nystatin Cream 30 Gm TOPICAL 1 applic BID JAMIE Administration Ropinirole HCl 0.5 mg 09/06/23 20:00 09/07/23 20:19 Ropinirole 0.25 Mg Tablet PO 0.5 mg DAILY@2000 [facility] Administration Sevelamer Carbonate 1,600 mg 09/08/23 09:00 09/08/23 09:39 Sevelamer 800 Mg Tablet PO 1,600 mg TID JAMIE Administration Additional Medication Information Current Medications Acetaminophen (Acetaminophen 325 Mg Tablet) 650 mg PO Q6H PRN PRN Reason: Mild/Mod Pain Or Temp >/= 101 Last Admin: 09/06/23 19:37 Dose: 650 mg Atorvastatin Calcium (Atorvastatin 40 Mg Tablet) 80 mg PO BEDTIME JAMIE Last Admin: 09/07/23 20:18 Dose: 80 mg Bacitracin (Bacitracin Ointment Pkt) 1 each TOPICAL TID JAMIE; Protocol Last Admin: 09/07/23 20:19 Dose: 1 each Carbidopa/Levodopa (Carbidopa-Levodopa 25-100mg Tablet) 0 each PO .COMPLEX JAMIE Collagenase (Collagenase Oint 30 Gm) 1 applic TOPICAL DAILY JAMIE Last Admin: 09/07/23 08:30 Dose: 1 applic Cyclobenzaprine HCl (Cyclobenzaprine 10 Mg Tablet) 10 mg PO Q8H PRN PRN Reason: MUSCLE SPASMS Last Admin: 09/07/23 16:01 Dose: 10 mg Diphenhydramine HCl (Diphenhydramine 25 Mg Capsule) 25 mg PO BEDTIME@2000 [facility] Last Admin: 09/07/23 20:19 Dose: 25 mg Doxycycline Monohydrate (Doxycycline 100 Mg Tablet) 100 mg PO BID [facility]; Protocol Last Admin: 09/07/23 17:36 Dose: 100 mg Escitalopram Oxalate (Escitalopram 10 Mg Tablet) 40 mg PO DAILY@0800 [facility] Last Admin: 09/07/23 08:29 Dose: 40 mg Gabapentin (Gabapentin 100 Mg Capsule) 100 mg PO BID [facility] Last Admin: 09/07/23 17:36 Dose: 100 mg Hydromorphone HCl (Hydromorphone 4 Mg Tablet) 2 mg PO Q8H PRN PRN Reason: PAIN Last Admin: 09/08/23 03:44 Dose: 2 mg Dextrose (D5w) 500 mls @ 0 mls/hr IV ONCE PRN; Protocol PRN Reason: Adult Acute Hypoglycemia Prot Dextrose (D10w) 125 mls @ 750 mls/hr IV PRN PRN; Protocol PRN Reason: Adult Acute Hypoglycemia Nursing Protocol Dextrose (D10w) 250 mls @ 1,000 mls/hr IV PRN PRN; Protocol PRN Reason: Adult Acute Hypoglycemia Nursing Protocol Insulin Human Lispro (Insulin Lispro 100 Unit/1 Ml) 0 unit SUBCUT WM&BEDTIME [facility]; Protocol Last Admin: 09/07/23 20:24 Dose: Not Given Levothyroxine Sodium (Levothyroxine 50 Mcg Tablet) 50 mcg PO DAILY [facility] Last Admin: 09/07/23 08:29 Dose: 50 mcg Metoprolol Succinate (Metoprolol Succinate Er (24 Hr) 50 Mg Tablet) 50 mg PO DAILY [facility] Last Admin: 09/07/23 08:34 Dose: Not Given Multivitamins (S-Gohhbhh-Znlxsgn C Tablet) 1 each PO DAILY [facility] Last Admin: 09/07/23 08:29 Dose: 1 each Nystatin (Nystatin Cream 30 Gm) 1 applic TOPICAL BID [facility] Last Admin: 09/07/23 17:35 Dose: 1 applic Ondansetron HCl (Ondansetron 2 Mg/Ml Sdv 2 Ml) 4 mg IVP Q8H PRN PRN Reason: vomiting, or N/V if npo Ondansetron HCl (Ondansetron 4 Mg Tablet) 4 mg PO Q8H PRN PRN Reason: NAUSEA Ropinirole HCl (Ropinirole 0.25 Mg Tablet) 0.5 mg PO DAILY@1999 [facility] Last Admin: 09/07/23 20:19 Dose: 0.5 mg Sodium Chloride (Sodium Chloride 0.9% 100 Ml Bag) 50 ml IV PRN PRN PRN Reason: Blood transfusion prime and flush Stop: 09/08/23 08:54 PFSH Anesthesia Medical History Rash Seropositive rheumatoid arthritis Left foot pain Long-term insulin use Diabetes type 2, uncontrolled Appetite loss MCI (mild cognitive impairment) Hypothyroidism Insulin dependent type 2 diabetes mellitus COVID-19 Hypertension Anxiety ESRD (end stage renal disease) Diabetes Hyperlipidemia Chronic back pain De Quervain's tenosynovitis Surgical History Status post colonoscopy S/P dialysis catheter insertion Removed 07/14/20 S/P arteriovenous (AV) fistula creation History of temporal artery biopsy H/O dilation and curettage H/O section Hx of cholecystectomy History of appendectomy History of carpal tunnel repair H/O neck surgery fusion Family History Father Bleeding disorder Other Diabetes Heart disease Hyperlipidemia Hypertension Kidney problem Migraines Stroke Denies family history of Anesthesia complication Social History Smoking and tobacco/nicotine status: never used tobacco/nicotine Second hand smoke exposure: No Alcohol intake: never Substance/Drug Use: never Adopted: No Caregiver/support person: Yes Lives independently: Yes Household members: family Housing: House Marital status: Single Highest education level completed: High School Graduate service: No Current occupational status: disabled Current occupational exposures/hazards: No Pets and animals: Yes Pets & animals: dog(s) Sexually active: No Do you think of yourself as: Straight/Heterosexual Current gender identity: Female Sabina/Caodaism: Orthodox Special sabina needs: No Agree to transfusion: No Data Anesthesia 09/08/23 05:05 09/08/23 05:05 Short CBC 09/07/23 09/07/23 09/07/23 Range/Units 05:06 17:00 18:43 WBC 9.75 Cancelled 9.48 (3.29-11.43) 10^3/uL Hgb 7.30 L Cancelled 8.40 L (11.27-16.99) g/dL Hct 23.0 L Cancelled 25.4 L (36-47) % MCV 97.0 Cancelled 92.4 (85-98) fl Plt Count 260 Cancelled 275 (157-399) 10^3/cmm Neut % (Auto) 85.6 Cancelled 86.8 % Neut # (Auto) 8.34 H Cancelled 8.23 H (1.8-7.7) 10^3/uL 09/08/23 Range/Units 05:05 WBC 7.35 (3.29-11.43) 10^3/uL Hgb 8.50 L (11.27-16.99) g/dL Hct 26.4 L (36-47) % MCV 93.3 (85-98) fl Plt Count 273 (157-399) 10^3/cmm Neut % (Auto) 82.0 % Neut # (Auto) 6.02 (1.8-7.7) 10^3/uL BMP 09/07/23 09/08/23 05:06 05:05 Sodium 135 L 132 L Potassium 3.8 4.0 Chloride 95 L 92 L Carbon Dioxide 25 25 BUN 27 H 36 H Creatinine 4.2 H 5.5 H Glucose 97 98 Calcium 9.0 8.9 Liver Function 09/07/23 09/08/23 Range/Units 05:06 05:05 Total Bilirubin 0.3 0.3 (0.15-1.2) mg/dL AST 9 12 (0-32) U/L ALT < 5 < 5 (0-33) U/L Alkaline Phosphatase 87 86 (35-105) U/L Albumin 2.5 L 2.5 L (3.5-5.2) g/dL Blood Bank 09/07/23 09:44 Blood Type A Positive Rho(D) Type Rh positive Antibody Screen Negative Cardiac Studies: 2 Echocardiogram 10/23/21 Echocardiogram Ultrasound 06/23/20
--- NOTE | 2023-09-08 11:07 | PC.NURSE ---
Pt taken to pre-op via bed by CIARA Peter and Nikki URBINA at 1100.
[2023-09-08] MEDS: sodium chloride 0.9% 1,000 ML 30 ML IV (11:21)
--- NOTE | 2023-09-08 11:45 | P.PN_ITS ---
Subjective 2 Subjective: Patient original dialysis schedule is Tuesday Plan for dialysis today Hemoglobin stable after 1 unit PRBC Plan for surgical debridement of her sacral stage III ulcer Abdominal wall cellulitis has not worsened No need of surgical intervention for her left shoulder fracture Vitals/I&O/Wt Last Vital Signs Temp 99 F 09/08/23 11:05 Pulse 90 09/08/23 11:05 Resp 18 09/08/23 11:05 BP 133/83 09/08/23 11:05 Pulse Ox 99 09/08/23 11:05 O2 Del Method Nasal Cannula 09/08/23 11:05 O2 Flow Rate 2 09/08/23 11:05 09/07/23 09/08/23 09/08/23 22:59 06:59 14:59 Intake Total 470 / 710 0 / 710 Balance 470 / 710 0 / 710 Weight last 48 hrs Weight 73.573 kg Weight 64.6 kg Physical Exam 2 Narrative: Awake and alert Pleasant cooperative Laying supine Currently oxygen is not in her nose Abdomen sore on palpation Erythema around the cellulitic area has not progressed Intertrigo Abdominal pannus cellulitis S1, S2 nonfocal neuroexam Stage III sacral ulcer Data 09/08/23 05:05 09/08/23 05:05 A&P Assessment and plan (1) Hypertension: (2) Diabetes: (3) Insulin dependent type 2 diabetes mellitus: (4) Failure to thrive: (5) ESRD (end stage renal disease): (6) Abdominal wall cellulitis: (7) Seropositive rheumatoid arthritis: (8) Closed left humeral fracture: Qualifiers: Encounter type: initial encounter Humerus Location: proximal (9) Rash: (10) Weakness: (11) Stage III pressure ulcer of sacral region: Plan Stage III sacral ulcer Plan for surgical debridement today Abdominal wall cellulitis with intertrigo Abdominal pannus cellulitis has not worsened Patient is afebrile End-stage renal disease Tuesday Patient nephro recommendation Anemia of chronic disease: Status post 1 unit PRBC hemoglobin is stable Cognitive impairment Mother is a caregiver Sister was updated yesterday Plan for long-term placement Continue renal diet after surgery Adding opioids along bowel regimen Attestations 2 Medical Necessity Statement*: Continue medical management Diagnoses Hypertension I10 Diabetes E11.9 Insulin dependent type 2 diabetes mellitus E11.9; Z79.4 Failure to thrive ESRD (end stage renal disease) N18.6 Abdominal wall cellulitis L03.311 Seropositive rheumatoid arthritis M05.9 Closed left humeral fracture S42.302A Encounter type: initial encounter Humerus Location: proximal Rash R21 Weakness R53.1 Stage III pressure ulcer of sacral region L89.153
--- NOTE | 2023-09-08 12:05 | P.MISC_ITS ---
Miscellaneous Note Purpose of Documentation: Fracture follow-up Note: Patient was to be seen in my office on September 06, but she was admitted through the emergency department to the hospital. Imaging was obtained on the here at the hospital and I have personally reviewed this. Patient will continue with her current treatment. The fracture is healing and remains in satisfactory position. She should follow-up with me in the office in approximately 3 to 4 w eeks.
--- NOTE | 2023-09-08 12:23 | PC.OT ---
OT TREATMENT HELD TODAY DUE TO I&D
[2023-09-08] MEDS: piperacillin-tazobactam 3.375 GM in sodium chloride 0.9% (plus) 50 ML IV (12:55)
[2023-09-08] MEDS: lidocaine-epi 2% PF 1:200,000 20 mL SDV 10 ML XX (13:00)
--- NOTE | 2023-09-08 13:10 | PM.OP ---
Operative Report Date of procedure: September 08, 2023 Pre-op diagnosis: Unstageable sacral decubitus ulcer Post-op diagnosis: Stage III sacral decubitus ulcer 2.5 x 2.3 x 1.4 cm Procedure done: Excisional debridement of stage III sacral decubitus ulcer 2.5 x 2.3 x 1.4 cm Implants: Wet-to-dry dressing Specimens removed/disposition: Eschar for culture Surgeon: Dario Adams DO Anesthesia: General and Local Complications: None apparent Brief History: This is a very pleasant 57-year-old female who who was found to have an unstageable sacral decubitus ulcer. Sharp excisional debridement was indicated. The risk and benefits were explained and documented. Procedure: Patient was wheeled from and remained on the hospital bed in the supine position. General endotracheal ovation was achieved by the department anesthesia. The patient was then put into the right lateral decubitus position. Sacral area was inspected prepped and draped in usual sterile fashion. A timeout was performed. All present were in agreement. 2% lidocaine with epinephrine was used to anesthetize the area around the sacral wound. Sterile free cautery and cut mode was used to excise the eschar. Ulcer went down into subcutaneous fat. Ulceration did not go down to bone and therefore bone biopsy was not indicated. Wound measures 2.5 x 2.3 x 1.4 cm. Specimen was passed off for culture. Hemostasis was achieved with electrocautery. The wound bed was irrigated with normal saline. Wet-to-dry dressing was placed. Patient tolerated procedure well.
--- NOTE | 2023-09-08 13:18 | SUR.OPER ---
SACRAL ULCER MEASUREMENTS: PRE SURGERY-2.5 X 2.3 X 0.6CM POST SURGERY-2.5 X 2.3 X 1.4CM
--- NOTE | 2023-09-08 13:47 | PC.NURSE ---
This nurse received report from CIARA Duong in PACU at [id number].
--- NOTE | 2023-09-08 13:50 | ANE.PACU2 ---
Inpatient post-anesthesia follow up: Airway intact: Yes Vital signs: Temperature 97.6 F Pulse Rate 88 Respiratory Rate 18 Blood Pressure 103/60 Pulse Oximetry 97 Oxygen Delivery Me thod Nasal Cannula Oxygen Flow Rate 2 Fraction of Inspir ed Oxygen Hydration adequate: Yes Nausea and vomiting: No Pain level: 1 Mental status: Baseline
[2023-09-08] MEDS: morphine IR 15 mg Tablet PO ×2 (16:05→20:03)
[2023-09-08 16:50] LABS: Glucose Point of Care 85 mg/dL (70-110)
[2023-09-08 20:11] LABS: Glucose Point of Care 145 mg/dL (70-110)
[2023-09-08] MEDS: atorvastatin 40 mg Tablet 80 MG PO (20:59)
[2023-09-08] MEDS: insulin lispro 100 unit/1 mL SUBCUT (20:59)
[2023-09-08] MEDS: diphenhydrAMINE 25 mg Capsule PO (20:59)
[2023-09-08] MEDS: ropinirole 0.25 mg Tablet 0.5 MG PO (20:59)
[2023-09-09] VITALS (10 sets, daily range): BP systolic 102–124; BP diastolic 48–73; PULSE 77–93; RESP 17–22; TEMP 36.4–37.1; O2SAT 95–99
[2023-09-09] MEDS: morphine IR 15 mg Tablet PO ×2 (03:36→16:54)
[2023-09-09] MEDS: blistex lip oint 7 gm Tube 1 APPLIC TOPICAL (03:41)
[2023-09-09 05:12] LABS: Basophils % 0.2 %; Hematocrit 28.2 % (36-47); Lymphocytes # 0.5 10^3/uL (0.8-4.8); Lymphocytes % 7.9 %; Mean Corpuscular HGB Conc 31.9 g/dL (30-55); Mean Corpuscular Hemoglobin 30.4 pg (27-33); Mean Corpuscular Volume 95.3 fl (85-98); Mean Platelet Volume 9.8 fL (7.4-10.4); Monocytes # 0.6 10^3/uL (0.2-0.9); Monocytes % 8.8 %; Neutrophils # 5.23 10^3/uL (1.8-7.7); Neutrophils % 82.2 %; Nucleated Red Blood Cells % 0 %; Platelet Count 285 10^3/cmm (157-399); Red Blood Count 2.96 10^6/uL (3.85-5.65); Red Cell Distribution Width 15.2 % (12.1-15.1); White Blood Count 6.36 10^3/uL (3.29-11.43)
[2023-09-09 05:32] LABS: Alanine Aminotransferase 7 U/L (0-33); Albumin Level 2.5 g/dL (3.5-5.2); Alkaline Phosphatase 88 U/L (35-105); Anion Gap 15.6 (5-19); Aspartate Amino Transferase 15 U/L (0-32); Blood Urea Nitrogen 19 mg/dL (6-20); Calcium 8.9 mg/dL (8.5-10.5); Carbon Dioxide 27 mmol/L (22-29); Chloride 95 mmol/L (98-107); Globulin 3.9 g/dL (1.3-4.6); Glomerular Filtration Rate 14.9 mL/min (90-130); Glucose 96 mg/dL (65-115); Magnesium 1.9 mg/dL (1.7-2.3); Osmolality Calculated 280 mOsm/kg (285-295); Phosphorus 4.4 mg/dL (2.5-4.5); Potassium 3.6 mmol/L (3.5-5.1); Sodium 134 mmol/L (136-145); Total Bilirubin 0.3 mg/dL (0.15-1.2); Total Protein 6.4 g/dL (6.6-8.7)
[2023-09-09 05:46] LABS: Creatinine Clr Calc Pharmacy 17.0627
[2023-09-09 06:28] LABS: Glucose Point of Care 98 mg/dL (70-110)
[2023-09-09] MEDS: escitalopram 10 mg Tablet 40 MG PO (09:20)
[2023-09-09] MEDS: levothyroxine 50 mcg Tablet PO (09:21)
[2023-09-09] MEDS: gabapentin 100 mg Capsule PO ×2 (09:21→20:45)
[2023-09-09] MEDS: b-complex-vitamin c Tablet 1 EACH PO (09:21)
[2023-09-09] MEDS: bacitracin ointment Pkt 1 EACH TOPICAL ×3 (09:21→21:15)
[2023-09-09] MEDS: doxycycline 100 mg Tablet PO ×2 (09:21→20:45)
[2023-09-09] MEDS: metoprolol succinate ER (24 HR) 50 mg Tablet PO (09:21)
[2023-09-09] MEDS: sevelamer 800 mg Tablet 1600 MG PO ×3 (09:21→20:45)
[2023-09-09] MEDS: nystatin cream 30 gm 1 APPLIC TOPICAL (09:22)
[2023-09-09] MEDS: collagenase oint 30 gm 1 APPLIC TOPICAL (09:22)
--- NOTE | 2023-09-09 10:38 | P.PN_ITS ---
Subjective 2 Subjective: no new complaints. s/p wound debridement. feels well. has left arm weakness and edema. no n/v/f/c/curran/d Medications: Reviewed: Yes Medication Review Details: Current Medications Acetaminophen (Acetaminophen 325 Mg Tablet) 650 mg PO Q6H PRN PRN Reason: Mild/Mod Pain Or Temp >/= 101 Last Admin: 09/08/23 09:40 Dose: 650 mg Atorvastatin Calcium (Atorvastatin 40 Mg Tablet) 80 mg PO BEDTIME [facility] Last Admin: 09/08/23 20:59 Dose: 80 mg Bacitracin (Bacitracin Ointment Pkt) 1 each TOPICAL TID [facility]; Protocol Last Admin: 09/09/23 09:21 Dose: 1 each Camphor/Menthol/Phenol (Blistex Lip Oint 7 Gm Tube) 1 applic TOPICAL PRN PRN PRN Reason: DRYNESS Last Admin: 09/09/23 03:41 Dose: 1 applic Carbidopa/Levodopa (Carbidopa-Levodopa 25-100mg Tablet) 0 each PO .COMPLEX [facility] Collagenase (Collagenase Oint 30 Gm) 1 applic TOPICAL DAILY JAM[facility] Last Admin: 09/09/23 09:22 Dose: 1 applic Cyclobenzaprine HCl (Cyclobenzaprine 10 Mg Tablet) 10 mg PO Q8H PRN PRN Reason: MUSCLE SPASMS Last Admin: 09/08/23 16:05 Dose: 10 mg Diphenhydramine HCl (Diphenhydramine 25 Mg Capsule) 25 mg PO BEDTIME@2000 [facility] Last Admin: 09/08/23 20:59 Dose: 25 mg Doxycycline Monohydrate (Doxycycline 100 Mg Tablet) 100 mg PO BID [facility]; Protocol Last Admin: 09/09/23 09:21 Dose: 100 mg Escitalopram Oxalate (Escitalopram 10 Mg Tablet) 40 mg PO DAILY@0800 [facility] Last Admin: 09/09/23 09:20 Dose: 40 mg Gabapentin (Gabapentin 100 Mg Capsule) 100 mg PO BID [facility] Last Admin: 09/09/23 09:21 Dose: 100 mg Dextrose (D5w) 500 mls @ 0 mls/hr IV ONCE PRN; Protocol PRN Reason: Adult Acute Hypoglycemia Prot Dextrose (D10w) 125 mls @ 750 mls/hr IV PRN PRN; Protocol PRN Reason: Adult Acute Hypoglycemia Nursing Protocol Dextrose (D10w) 250 mls @ 1,000 mls/hr IV PRN PRN; Protocol PRN Reason: Adult Acute Hypoglycemia Nursing Protocol Insulin Human Lispro (Insulin Lispro 100 Unit/1 Ml) 0 unit SUBCUT WM&BEDTIME [facility]; Protocol Last Admin: 09/09/23 09:12 Dose: Not Given Levothyroxine Sodium (Levothyroxine 50 Mcg Tablet) 50 mcg PO DAILY [facility] Last Admin: 09/09/23 09:21 Dose: 50 mcg Metoprolol Succinate (Metoprolol Succinate Er (24 Hr) 50 Mg Tablet) 50 mg PO DAILY [facility] Last Admin: 09/09/23 09:21 Dose: 50 mg Morphine Sulfate (Morphine Ir 15 Mg Tablet) 15 mg PO Q4H PRN PRN Reason: SEVERE PAIN Last Admin: 09/09/23 03:36 Dose: 15 mg Multivitamins (V-Kncyuga-Cwsxpwc C Tablet) 1 each PO DAILY [facility] Last Admin: 09/09/23 09:21 Dose: 1 each Nystatin (Nystatin Cream 30 Gm) 1 applic TOPICAL BID [facility] Last Admin: 09/09/23 09:22 Dose: 1 applic Ondansetron HCl (Ondansetron 2 Mg/Ml Sdv 2 Ml) 4 mg IVP Q8H PRN PRN Reason: vomiting, or N/V if npo Ondansetron HCl (Ondansetron 4 Mg Tablet) 4 mg PO Q8H PRN PRN Reason: NAUSEA Ropinirole HCl (Ropinirole 0.25 Mg Tablet) 0.5 mg PO DAILY@1999 [facility] Last Admin: 09/08/23 20:59 Dose: 0.5 mg Sevelamer Carbonate (Sevelamer 800 Mg Tablet) 1,600 mg PO TID [facility] Last Admin: 09/09/23 09:21 Dose: 1,600 mg Vitals/I&O/Wt Last Vital Signs Temp 97.6 F 09/09/23 07:42 Pulse 90 09/09/23 07:42 Resp 17 09/09/23 07:42 BP 115/58 09/09/23 07:42 Pulse Ox 95 09/09/23 07:42 O2 Del Method Nasal Cannula 09/09/23 07:42 O2 Flow Rate 2 09/08/23 20:00 09/08/23 09/09/23 09/09/23 22:59 06:59 14:59 Intake Total 1112.5 / 1462.5 240 / 1702.5 980 / 980 Output Total 2048 Balance -936.5 / -591.5 240 / -351.5 980 / 980 Weight last 48 hrs Weight 72.756 kg Weight 64.229 kg Weight 73.573 kg Physical Exam 2 Narrative: obese, comfortable in bed, NARD VSS heent- nc/at, eomi neck supple lungs good air movement b/l heart reg +s1, s2, +RAMA abd soft, + bs, nt, nd ext RUE AVF w/ thrill and bruit left arm broken 1+ leg edema neuro- awake, alert bandage on decubitus ulcer telehealth visit- with RN Data 09/09/23 04:53 09/09/23 04:53 Micro: Microbiology 09/08/23 13:00 Gram Stain - Final Back A&P Assessment and plan (1) ESRD (end stage renal disease): 57 yr old female w/ weakness, anemia, and Left humeral fracture. 1. anemia- ferritin >[id number]- -no iv iron give epo -hgb improved s/p 1 unit prbc transfusion 2. ESRD- She has ESRD since 2018 from htn, dm, obesity -she is off schedule- repeat HD today- lower weight as tolerated 3. hypothyroidism- normal tsh on levothyroxine 4. IDDM - monitor for hypoglycemia 5. htn- bp improving 6. hyponatremia- improving w/ hd. 7. cellulitis - renal dose abx s/p I and D of decubitus ulcer yesterday 8. renal bone mineral metabolism- pth 336 vit d level 31 - phos improving on binder seen and examined w/ rN- telehealth visit informed consent for telehealth obtained from pt Plan see above. HD today, then d/c per surgery and medicine Attestations 2 Medical Necessity Statement*: decubitus ulcer, cellulitis, ESRD, left arm fx Time Spent in Patient Care: 16 - 35 minutes Coding Level of Care Code Acute Code for Chg Fwd Diagnoses ESRD (end stage renal disease) N18.6
[2023-09-09 11:15] LABS: Glucose Point of Care 144 mg/dL (70-110)
[2023-09-09] MEDS: insulin lispro 100 unit/1 mL SUBCUT (11:24)
--- NOTE | 2023-09-09 11:28 | P.PN_ITS ---
Subjective 2 Subjective: No surgical intervention needed for her humeral fracture Status post surgical debridement of her sacral ulcer stage III Wet-to-dry dressing in place Will ask nurse to apply Santyl around abdominal wall because there is still no sign of granulation around the wound Patient is on 2 L nasal cannula Hemoglobin 7 Laying supine Complaining of anything other than soreness in her back Requested nursing care/nurse, frequent positioning of the patient every 3 hours Vitals/I&O/Wt Last Vital Signs Temp 97.6 F 09/09/23 07:42 Pulse 90 09/09/23 07:42 Resp 17 09/09/23 07:42 BP 115/58 09/09/23 07:42 Pulse Ox 95 09/09/23 07:42 O2 Del Method Nasal Cannula 09/09/23 07:42 O2 Flow Rate 2 09/08/23 20:00 09/08/23 09/09/23 09/09/23 22:59 06:59 14:59 Intake Total 1112.5 / 1462.5 240 / 1702.5 980 / 980 Output Total 2048 / 2053 Balance -936.5 / -591.5 240 / -351.5 980 / 980 Weight last 48 hrs Weight 72.756 kg Weight 64.229 kg Weight 73.573 kg Physical Exam 2 Narrative: Stage III ulcer s/p debridement Wet-to-dry dressing in place Abdominal wall cellulitis with no signs of healing no sign of granulation tissue, Awake and alert Nonfocal neuroexam Currently on 2 L GCS 15 Data 09/09/23 04:53 09/09/23 04:53 Micro: Microbiology 09/08/23 13:00 Gram Stain - Final Back A&P Assessment and plan (1) Hypertension: (2) Diabetes: (3) Failure to thrive: (4) ESRD (end stage renal disease): (5) Abdominal wall cellulitis: (6) Stage III pressure ulcer of sacral region: (7) Rash: (8) Weakness: Plan Awaiting care home placement Status post stage III sacral ulcer debridement Post blood transfusion that was related to anemia of chronic disease No surgical intervention needed for humeral fracture Appreciate Dr. Florian's recommendations Appreciate general surgery recommendations for wound care Wet-to-dry dressing sacral area Apply Santyl to debride necrotic tissue around abdominal wall Continue antibiotics for abdominal wall cellulitis Frequent position change every 3 hours Full code DVT prophylaxis: Heparin Attestations 2 Medical Necessity Statement*: Awaiting placement Diagnoses Hypertension I10 Diabetes E11.9 Failure to thrive ESRD (end stage renal disease) N18.6 Abdominal wall cellulitis L03.311 Stage III pressure ulcer of sacral region L89.153 Rash R21 Weakness R53.1
[2023-09-09] MEDS: heparin 5,000 unit/mL INJ 1 mL 5000 UNIT SUBCUT ×2 (13:27→23:31)
[2023-09-09] MEDS: acetaminophen 325 mg Tablet 650 MG PO (14:08)
--- NOTE | 2023-09-09 14:44 | P.CONIM_ITS ---
Providers/Reason For Consult 2 Consulting Physician/Specialty*: Dr. Yoli Brown Reason for Consult*: Left humerus fracture Requesting Physician: Dr. Flanagan Attending Physician: Jigar Flanagan MD Primary Care Provider: Vivienne Schulz MD History of Present Illness History of Present Illness Elvi Kaiser is a 57 year old female who initially presented to the emergency department on August 24, 2023 at which time she was diagnosed with a closed left humerus fracture involving the greater tuberosity and extending into the humeral head. The patient was referred to my office, and she was to have an appointment with me on September 06. In the meantime, she was admitted through the emergency department with abdominal wall cellulitis. She was seen briefly prior to surgical intervention yesterday for a sacral decubitus, and at that time, I discussed with her the importance of using a sling. Today, she is seen in consultation for this fracture treatment. Review of Systems 2 General: Reports: 10 or more systems reviewed and unremarkable except in HPI and below Narrative: weak, lethargic, sob, nausea, confusion rest of ROS is negative Medications/Allergies Home Medications Medication Instructions Recorded Confirmed Last Taken Type escitalopram oxalate 20 mg tablet 40 mg PO DAILY@0805/01/19 09/07/23 08/23/23 History (Lexapro) vit B,C-folic ac 800 mcg-zinc 12.5 1 tab PO DAILY@199905/01/19 09/07/23 08/23/23 History mg-selen-D3 2,000 unit-vit E tablet (RenaPlex-D) carbidopa 25 mg-levodopa 100 mg See Rx Instructions .Route .COMPLEX 05/20/20 09/07/23 08/22/23 History tablet diphenhydramine HCl 25 mg capsule 25 mg PO BEDTIME@199905/20/20 09/07/23 08/23/23 History (Benadryl) ferric citrate 210 mg iron tablet 630 mg PO TID@05/20/20 09/07/23 08/23/23 History (Auryxia) ropinirole 0.5 mg tablet 0.5 mg PO DAILY@199906/21/20 09/07/23 08/23/23 History blood-glucose meter,continuous #1 ea 09/24/21 09/07/23 Unknown Rx (Dexcom G6 [employer]ley[employer] Refe[employer]) blood-glucose sensor (Dexcom G6 #9 ea 09/24/21 09/07/23 Unknown Rx Sensor device) clopidogrel 75 mg tablet 75 mg PO DAILY #30 tabs 11/27/21 09/07/23 08/23/23 Rx blood-glucose transmitter (Dexcom #3 ea 12/24/21 09/07/23 Unknown Rx G6 Transmitter device) glucagon 1 mg solution for 1 mg SUBCUT Q20M PRN hypoglycemia 12/24/21 09/07/23 Unknown Rx injection (Glucagon Emergency Kit) #1 ea amlodipine 2.5 mg tablet (Norvasc) 2.5 mg PO DAILY 09/28/22 09/07/23 08/23/23 History gabapentin 100 mg capsule 100 mg PO TID #90 caps 04/21/23 09/07/23 08/23/23 Rx levothyroxine 50 mcg tablet 50 mcg PO DAILY 08/24/23 09/07/23 08/23/23 History metoprolol succinate 50 mg 50 mg PO DAILY 08/24/23 09/07/23 08/23/23 History tablet,extended release 24 hr mupirocin 2 % topical ointment 1 applic topical TID PRN Skin 08/24/23 09/07/23 Unknown History Irritation prednisone 5 mg tablet 5 mg PO DAILY PRN Allergic Reaction 08/24/23 09/07/23 08/23/23 History rosuvastatin 20 mg tablet 20 mg PO BEDTIME 08/24/23 09/07/23 08/23/23 History hydromorphone 2 mg tablet 2 mg PO Q8H PRN pain #10 tabs 08/25/23 09/07/23 Unknown Rx (Dilaudid) cyclobenzaprine 10 mg tablet 10 mg PO Q8H PRN MUSCLE SPASMS #14 09/04/23 09/07/23 Unknown Rx tabs atorvastatin 80 mg tablet 80 mg PO DAILY 09/06/23 09/07/23 Unknown History Allergies Allergy/AdvReac Type Severity Reaction Status Date / Time codeine Allergy ALGY-Hives Verified 09/07/23 07:46 fentanyl Allergy ALGY-Hives Verified 09/07/23 07:46 hydrocodone Allergy ALGY-Hives Verified 09/07/23 07:46 influenza virus vaccine qs Allergy ALGY-Hives Verified 09/07/23 07:46 (65 years up) [From Dafiti (65y up)(PF)] Iodinated Contrast Media Allergy ALGY-Anaphy Verified 09/07/23 07:46 laxis kiwi Allergy ALGY-Anaphy Verified 09/07/23 07:46 laxis lisinopril Allergy ADR-Cough Verified 09/07/23 07:46 NSAIDS (Non-Steroidal Allergy ALGY-Hives Verified 09/07/23 07:46 Anti-Inflamma oxycodone Allergy ALGY-Hives Verified 09/07/23 07:46 pineapple Allergy ALGY-Anaphy Verified 09/07/23 07:46 laxis promethazine Allergy Unknown Verified 09/07/23 07:46 strawberry Allergy ALGY-Anaphy Verified 09/07/23 07:46 laxis tramadol Allergy ALGY-Hives Verified 09/07/23 07:46 vaccine adjuvant emulsion Allergy ALGY-Hives Verified 09/07/23 07:46 [id number] [From Dafiti (65y up)(PF)] Current Medications Generic Name Dose Route Start Last Admin Trade Name Freq PRN Reason Stop Dose Admin Acetaminophen 650 mg 09/05/23 20:35 09/09/23 14:08 Acetaminophen 325 Mg Tablet PO 650 mg Q6H PRN Administration Mild/Mod Pain Or Temp >/= 101 Atorvastatin Calcium 80 mg 09/05/23 21:00 09/08/23 20:59 Atorvastatin 40 Mg Tablet PO 80 mg BEDTIME JAMIE Administration Bacitracin 1 each 09/06/23 15:00 09/09/23 13:28 Bacitracin Ointment Pkt TOPICAL 1 each TID JAMIE Administration Protocol Camphor/Menthol/Phenol 1 applic 09/08/23 22:55 09/09/23 03:41 Blistex Lip Oint 7 Gm Tube TOPICAL 1 applic PRN PRN Administration DRYNESS Collagenase 1 applic 09/06/23 09:00 09/09/23 09:22 Collagenase Oint 30 Gm TOPICAL 1 applic DAILY JAMIE Administration Cyclobenzaprine HCl 10 mg 09/05/23 20:35 09/08/23 16:05 Cyclobenzaprine 10 Mg Tablet PO 10 mg Q8H PRN Administration MUSCLE SPASMS Diphenhydramine HCl 25 mg 09/05/23 20:35 09/08/23 20:59 Diphenhydramine 25 Mg Capsule PO 25 mg BEDTIME@1999 [facility] Administration Doxycycline Monohydrate 100 mg 09/06/23 18:00 09/09/23 09:21 Doxycycline 100 Mg Tablet PO 100 mg BID [facility] Administration Protocol Escitalopram Oxalate 40 mg 09/06/23 08:00 09/09/23 09:20 Escitalopram 10 Mg Tablet PO 40 mg DAILY@0800 JAMIE Administration Gabapentin 100 mg 09/06/23 09:00 09/09/23 09:21 Gabapentin 100 Mg Capsule PO 100 mg BID JAMIE Administration Heparin Sodium (Porcine) 5,000 unit 09/09/23 11:45 09/09/23 13:27 Heparin 5,000 Unit/Ml Inj 1 Ml SUBCUT 5,000 unit Q12H JAMIE Administration Insulin Human Lispro 0 unit 09/05/23 21:00 09/09/23 11:24 Insulin Lispro 100 Unit/1 Ml SUBCUT 2 unit WM&BEDTIME JAMIE Administration Protocol Levothyroxine Sodium 50 mcg 09/06/23 09:00 09/09/23 09:21 Levothyroxine 50 Mcg Tablet PO 50 mcg DAILY [facility] Administration Morphine Sulfate 15 mg 09/08/23 11:48 09/09/23 03:36 Morphine Ir 15 Mg Tablet PO 15 mg Q4H PRN Administration SEVERE PAIN Multivitamins 1 each 09/06/23 09:00 09/09/23 09:21 D-Kkeymfo-Muwgeam C Tablet PO 1 each DAILY JAMIE Administration Nystatin 1 applic 09/06/23 03:05 09/09/23 09:22 Nystatin Cream 30 Gm TOPICAL 1 applic BID [facility] Administration Ropinirole HCl 0.5 mg 09/06/23 20:00 09/08/23 20:59 Ropinirole 0.25 Mg Tablet PO 0.5 mg DAILY@1999 [facility] Administration Sevelamer Carbonate 1,600 mg 09/08/23 09:00 09/09/23 13:28 Sevelamer 800 Mg Tablet PO 1,600 mg TID JAMIE Administration Additional Medication Information Current Medications Acetaminophen (Acetaminophen 325 Mg Tablet) 650 mg PO Q6H PRN PRN Reason: Mild/Mod Pain Or Temp >/= 101 Last Admin: 09/08/23 09:40 Dose: 650 mg Atorvastatin Calcium (Atorvastatin 40 Mg Tablet) 80 mg PO BEDTIME JAMIE Last Admin: 09/08/23 20:59 Dose: 80 mg Bacitracin (Bacitracin Ointment Pkt) 1 each TOPICAL TID [facility]; Protocol Last Admin: 09/09/23 09:21 Dose: 1 each Camphor/Menthol/Phenol (Blistex Lip Oint 7 Gm Tube) 1 applic TOPICAL PRN PRN PRN Reason: DRYNESS Last Admin: 09/09/23 03:41 Dose: 1 applic Carbidopa/Levodopa (Carbidopa-Levodopa 25-100mg Tablet) 0 each PO .COMPLEX [facility] Collagenase (Collagenase Oint 30 Gm) 1 applic TOPICAL DAILY JAMIE Last Admin: 09/09/23 09:22 Dose: 1 applic Cyclobenzaprine HCl (Cyclobenzaprine 10 Mg Tablet) 10 mg PO Q8H PRN PRN Reason: MUSCLE SPASMS Last Admin: 09/08/23 16:05 Dose: 10 mg Diphenhydramine HCl (Diphenhydramine 25 Mg Capsule) 25 mg PO BEDTIME@2000 [facility] Last Admin: 09/08/23 20:59 Dose: 25 mg Doxycycline Monohydrate (Doxycycline 100 Mg Tablet) 100 mg PO BID [facility]; Protocol Last Admin: 09/09/23 09:21 Dose: 100 mg Escitalopram Oxalate (Escitalopram 10 Mg Tablet) 40 mg PO DAILY@0800 [facility] Last Admin: 09/09/23 09:20 Dose: 40 mg Gabapentin (Gabapentin 100 Mg Capsule) 100 mg PO BID [facility] Last Admin: 09/09/23 09:21 Dose: 100 mg Dextrose (D5w) 500 mls @ 0 mls/hr IV ONCE PRN; Protocol PRN Reason: Adult Acute Hypoglycemia Prot Dextrose (D10w) 125 mls @ 750 mls/hr IV PRN PRN; Protocol PRN Reason: Adult Acute Hypoglycemia Nursing Protocol Dextrose (D10w) 250 mls @ 1,000 mls/hr IV PRN PRN; Protocol PRN Reason: Adult Acute Hypoglycemia Nursing Protocol Insulin Human Lispro (Insulin Lispro 100 Unit/1 Ml) 0 unit SUBCUT WM&BEDTIME [facility]; Protocol Last Admin: 09/09/23 09:12 Dose: Not Given Levothyroxine Sodium (Levothyroxine 50 Mcg Tablet) 50 mcg PO DAILY [facility] Last Admin: 09/09/23 09:21 Dose: 50 mcg Metoprolol Succinate (Metoprolol Succinate Er (24 Hr) 50 Mg Tablet) 50 mg PO DAILY [facility] Last Admin: 09/09/23 09:21 Dose: 50 mg Morphine Sulfate (Morphine Ir 15 Mg Tablet) 15 mg PO Q4H PRN PRN Reason: SEVERE PAIN Last Admin: 09/09/23 03:36 Dose: 15 mg Multivitamins (E-Ycsedoo-Gtqyqvk C Tablet) 1 each PO DAILY [facility] Last Admin: 09/09/23 09:21 Dose: 1 each Nystatin (Nystatin Cream 30 Gm) 1 applic TOPICAL BID [facility] Last Admin: 09/09/23 09:22 Dose: 1 applic Ondansetron HCl (Ondansetron 2 Mg/Ml Sdv 2 Ml) 4 mg IVP Q8H PRN PRN Reason: vomiting, or N/V if npo Ondansetron HCl (Ondansetron 4 Mg Tablet) 4 mg PO Q8H PRN PRN Reason: NAUSEA Ropinirole HCl (Ropinirole 0.25 Mg Tablet) 0.5 mg PO DAILY@1999 [facility] Last Admin: 09/08/23 20:59 Dose: 0.5 mg Sevelamer Carbonate (Sevelamer 800 Mg Tablet) 1,600 mg PO TID [facility] Last Admin: 09/09/23 09:21 Dose: 1,600 mg PFSH Acute 2 PFSH: Medical History Rash Seropositive rheumatoid arthritis Left foot pain Long-term insulin use Diabetes type 2, uncontrolled Appetite loss MCI (mild cognitive impairment) Hypothyroidism Insulin dependent type 2 diabetes mellitus COVID-19 Hypertension Anxiety ESRD (end stage renal disease) Diabetes Hyperlipidemia Chronic back pain De Quervain's tenosynovitis Surgical History Status post colonoscopy S/P dialysis catheter insertion Removed 07/14/20 S/P arteriovenous (AV) fistula creation History of temporal artery biopsy H/O dilation and curettage H/O section Hx of cholecystectomy History of appendectomy History of carpal tunnel repair H/O neck surgery fusion Family History Father Bleeding disorder Other Diabetes Heart disease Hyperlipidemia Hypertension Kidney problem Migraines Stroke Denies family history of Anesthesia complication Social History Smoking and tobacco/nicotine status: never used tobacco/nicotine Second hand smoke exposure: No Alcohol intake: never Substance/Drug Use: never Adopted: No Caregiver/support person: Yes Lives independently: Yes Household members: family Housing: House Marital status: Single Highest education level completed: High School Graduate service: No Current occupational status: disabled Current occupational exposures/hazards: No Pets and animals: Yes Pets & animals: dog(s) Sexually active: No Do you think of yourself as: Straight/Heterosexual Current gender identity: Female Sabina/Jain: Bahai Special sabina needs: No Agree to transfusion: No Dietary Habits: Current diet type/program: regular Caffeine: No High-fat food intake: 2 times daily Daily servings fruits/vegetables: 0-1 Daily servings of milk/calcium: 0-1 Eating out: rarely or never Reads food labels: usually or always During the past year weight has: remained stable Exercise: What type of physical activity do you participate in?: none and walking Physical activity functional status: independent ambulation How many days of moderate to strenuous exercise, like a brisk walk, did you do in the last 7 days: 0 Safety: Seatbelt use: always Helmet use: No Drive intoxicated or ride with intoxicated sanitation 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?: never Home Safety: Water heater temperature set < 120 degrees: No Working smoke detector in home: Yes Fire extinguisher in home: No Carbon monoxide detector in home: No Firearms in home: Yes Personal Safety: Do you feel safe at home: No Victim of physical abuse: No Victim of emotional abuse: No Victim of sexual abuse: No Would you like help information on resources?: No NHANES Social Connection/Isolation: Are you now , , , , never or living with a partner?: In a typical week, how many times do you talk on the telephone with family, friends, or neighbors?: Once per Week How often do you get together with friends or relatives?: Once per Week Do you belong to any clubs or organizations such as evangelical groups unions, fraternal or athletic groups, or school groups?: No S ocial isolation score (0-1 are the most socially isolated patients): 1 Social isolation score reviewed/action taken: No Vitals/I&O/Wt Last Vital Signs Temp 97.6 F 09/09/23 11:33 Pulse 88 09/09/23 11:33 Resp 18 05/31/24 11:33 BP 103/60 09/09/23 11:33 Pulse Ox 97 09/09/23 11:33 O2 Del Method Nasal Cannula 09/09/23 11:33 O2 Flow Rate 2 09/08/23 20:00 09/08/23 09/09/23 09/09/23 22:59 06:59 14:59 Intake Total 1112.5 / 1462.5 240 / 1702.5 980 / 980 Output Total 2048 Balance -936.5 / -591.5 240 / -351.5 980 / 980 Weight last 48 hrs Weight 160 lb 6.4 oz Weight 141 lb 9.6 oz Weight 162 lb 3.2 oz Physical Exam 2 Const: COMMON NORMALS: no acute distress, patient oriented x3 and alert G ENERAL APPEARANCE: cooperative and comfortable NUTRITIONAL APPEARANCE: obese ORIENTATION/CONSCIOUSNESS: Yes awake HENMT: COMMON NORMALS: normocephalic and atraumatic HEAD & SCALP: n ormocephalic and atraumatic Eye: GENERAL EYE: appearance normal, both eyes and all related structures Chest: COMMONS NORMALS: normal inspection of the chest Resp: COMMON NORMALS: normal respiratory effort EFFORT & INSPECTION: Yes able to speak in complete sentences and Yes symmetric chest movement Extremity: LEFT UPPER EXTREMITY: Yes shoulder joint (There is bruising along the anterior humerus) Left shoulder joint: Yes ROM (Not evaluated secondary to fracture) and Yes neurovascular exam (Intact distally) Neuro: COMMON NORMALS: patient oriented x3 SENSORIUM/ORIENTATION: Yes alert Psych: COMMON NORMALS: mental status grossly normal APPEARANCE: Yes grossly normal ATTITUDE: Yes calm and Yes engaged ATTENTION/CONCENTRATION: Yes attention grossly intact Skin: COMMON NORMALS: no rashes or lesions noted GENERAL SKIN EXAM: no rashes or lesions noted Data 09/09/23 04:53 09/09/23 04:53 Micro: Microbiology 09/08/23 13:00 Gram Stain - Final Back Xray Ortho: My impression: I have personally reviewed the patient's x-rays both at the time of initial fracture and upon presentation to the hospital at the time of this admission. Also, she had a CT scan which is reviewed. CT scan demonstrated that the greater tuberosity which was minimally displaced on x-ray was indeed comminuted with fractures extending into the humeral head. The humeral shaft was noted to be intact and the glenoid was normal as well. A&P Assessment and plan (1) Fracture of humeral head, left, closed: Patient's fractures are evaluated both on plain film and CT. She has a greater tuberosity fracture which is essentially nondisplaced, but it does extend into the humeral head thereby causing humeral head fractures. Imaging demonstrates there has been no significant interval change since first x-rays which were obtained on August 23 and x-rays at the time of the admission through the emergency department and yesterday for further evaluation. The patient initially was placed in a sling for treatment. She is evaluated today in the sling essentially is nonfunctional. We will attempt to place her in a shoulder immobilizer to see if this gives her better pain management and better functionality. Qualifiers: Encounter type: initial encounter Qualified Code(s): S42.292A - Other displaced fracture of upper end of left humerus, initial encounter for closed fracture (2) Fracture of greater tuberosity of left humerus: Qualifiers: Encounter type: initial encounter Fracture type: closed Fracture alignment: nondisplaced Qualified Code(s): S42.255A - Nondisplaced fracture of greater tuberosity of left humerus, initial encounter for closed fracture Coding Level of Care Code Acute Code for Chg Fwd Diagnoses Closed fracture of head of left humerus, initial encounter S42.292A Encounter type: initial encounter Closed nondisplaced fracture of greater tuberosity of left humerus, initial encounter S42.255A Encounter type: initial encounter Fracture type: closed Fracture alignment: nondisplaced
--- NOTE | 2023-09-09 14:56 | PC.NURSE ---
Dressing change to sacrum completed per order. Tolerated well.
[2023-09-09 16:37] LABS: Glucose Point of Care 160 mg/dL (70-110)
[2023-09-09] MEDS: cyclobenzaprine 10 mg Tablet PO (16:54)
[2023-09-09] MEDS: amoxicillin-clav 875-125 mg Tablet 1 TAB PO (20:45)
[2023-09-09] MEDS: ropinirole 0.25 mg Tablet 0.5 MG PO (20:45)
[2023-09-09] MEDS: atorvastatin 40 mg Tablet 80 MG PO (20:45)
[2023-09-09 20:46] LABS: Glucose Point of Care 118 mg/dL (70-110)
[2023-09-09] MEDS: diphenhydrAMINE 25 mg Capsule PO (20:46)
[2023-09-10] VITALS (7 sets, daily range): BP systolic 90–112; BP diastolic 47–71; PULSE 72–82; RESP 18; TEMP 36.4–36.7; O2SAT 93–100
[2023-09-10 06:27] LABS: Glucose Point of Care 106 mg/dL (70-110)
[2023-09-10 08:31] LABS: Basophils % 0.1 %; Eosinophils % 0.1 %; Hematocrit 32.4 % (36-47); Lymphocytes # 0.7 10^3/uL (0.8-4.8); Lymphocytes % 9.4 %; Mean Corpuscular HGB Conc 29.6 g/dL (30-55); Mean Corpuscular Hemoglobin 29.8 pg (27-33); Mean Corpuscular Volume 100.6 fl (85-98); Mean Platelet Volume 10.2 fL (7.4-10.4); Monocytes # 0.7 10^3/uL (0.2-0.9); Monocytes % 9.1 %; Neutrophils # 5.82 10^3/uL (1.8-7.7); Neutrophils % 80.2 %; Nucleated Red Blood Cells % 0.3 %; Platelet Count 317 10^3/cmm (157-399); Red Blood Count 3.22 10^6/uL (3.85-5.65); Red Cell Distribution Width 14.9 % (12.1-15.1); White Blood Count 7.26 10^3/uL (3.29-11.43)
[2023-09-10 08:51] LABS: Albumin Level 2.5 g/dL (3.5-5.2); Alkaline Phosphatase 88 U/L (35-105); Blood Urea Nitrogen 16 mg/dL (6-20); Calcium 9.1 mg/dL (8.5-10.5); Carbon Dioxide 25 mmol/L (22-29); Chloride 95 mmol/L (98-107); Globulin 4.2 g/dL (1.3-4.6); Glomerular Filtration Rate 18.1 mL/min (90-130); Glucose 100 mg/dL (65-115); Magnesium 1.9 mg/dL (1.7-2.3); Osmolality Calculated 275 mOsm/kg (285-295); Phosphorus 3.4 mg/dL (2.5-4.5); Sodium 132 mmol/L (136-145); Total Bilirubin 0.3 mg/dL (0.15-1.2); Total Protein 6.7 g/dL (6.6-8.7)
[2023-09-10 08:55] LABS: Creatinine Clr Calc Pharmacy 21.4455
[2023-09-10 08:56] LABS: Alanine Aminotransferase 10 U/L (0-33); Anion Gap 16.8 (5-19); Aspartate Amino Transferase 32 U/L (0-32); Potassium 4.8 mmol/L (3.5-5.1)
[2023-09-10] MEDS: b-complex-vitamin c Tablet 1 EACH PO (09:10)
[2023-09-10] MEDS: doxycycline 100 mg Tablet PO ×2 (09:10→17:59)
[2023-09-10] MEDS: escitalopram 10 mg Tablet 40 MG PO (09:10)
[2023-09-10] MEDS: gabapentin 100 mg Capsule PO ×2 (09:11→17:59)
[2023-09-10] MEDS: levothyroxine 50 mcg Tablet PO (09:11)
[2023-09-10] MEDS: amoxicillin-clav 875-125 mg Tablet 1 TAB PO ×2 (09:11→17:59)
[2023-09-10] MEDS: metoprolol succinate ER (24 HR) 50 mg Tablet 25 MG PO (09:11)
[2023-09-10] MEDS: sevelamer 800 mg Tablet 1600 MG PO ×3 (09:12→20:33)
[2023-09-10] MEDS: bacitracin ointment Pkt 1 EACH TOPICAL ×3 (09:12→20:33)
[2023-09-10] MEDS: nystatin cream 30 gm 1 APPLIC TOPICAL ×2 (09:13→18:00)
[2023-09-10] MEDS: collagenase oint 30 gm 1 APPLIC TOPICAL (09:13)
[2023-09-10 11:07] LABS: Glucose Point of Care 116 mg/dL (70-110)
--- NOTE | 2023-09-10 11:14 | P.PN_ITS ---
Subjective 2 Subjective: seen and examined. has pain by I and D site and by pannus skin. no n/v/f/c/curran/d Medications: Reviewed: Yes Medication Review Details: Current Medications Acetaminophen (Acetaminophen 325 Mg Tablet) 650 mg PO Q6H PRN PRN Reason: Mild/Mod Pain Or Temp >/= 101 Last Admin: 09/09/23 14:08 Dose: 650 mg Amoxicillin/Clavulanate Potassium (Amoxicillin-Clav 875-125 Mg Tablet) 1 tab PO BID [facility]; Protocol Last Admin: 09/10/23 09:11 Dose: 1 tab Atorvastatin Calcium (Atorvastatin 40 Mg Tablet) 80 mg PO BEDTIME [facility] Last Admin: 09/09/23 20:45 Dose: 80 mg Bacitracin (Bacitracin Ointment Pkt) 1 each TOPICAL TID [facility]; Protocol Last Admin: 09/10/23 09:12 Dose: 1 each Camphor/Menthol/Phenol (Blistex Lip Oint 7 Gm Tube) 1 applic TOPICAL PRN PRN PRN Reason: DRYNESS Last Admin: 09/09/23 03:41 Dose: 1 applic Carbidopa/Levodopa (Carbidopa-Levodopa 25-100mg Tablet) 0 each PO .COMPLEX [facility] Collagenase (Collagenase Oint 30 Gm) 1 applic TOPICAL DAILY [facility] Last Admin: 09/10/23 09:13 Dose: 1 applic Cyclobenzaprine HCl (Cyclobenzaprine 10 Mg Tablet) 10 mg PO Q8H PRN PRN Reason: MUSCLE SPASMS Last Admin: 09/09/23 16:54 Dose: 10 mg Diphenhydramine HCl (Diphenhydramine 25 Mg Capsule) 25 mg PO BEDTIME@2000 [facility] Last Admin: 09/09/23 20:46 Dose: 25 mg Doxycycline Monohydrate (Doxycycline 100 Mg Tablet) 100 mg PO BID [facility]; Protocol Last Admin: 09/10/23 09:10 Dose: 100 mg Escitalopram Oxalate (Escitalopram 10 Mg Tablet) 40 mg PO DAILY@0800 [facility] Last Admin: 09/10/23 09:10 Dose: 40 mg Gabapentin (Gabapentin 100 Mg Capsule) 100 mg PO BID [facility] Last Admin: 09/10/23 09:11 Dose: 100 mg Heparin Sodium (Porcine) (Heparin 5,000 Unit/Ml Inj 1 Ml) 5,000 unit SUBCUT Q12H [facility] Last Admin: 09/09/23 23:31 Dose: 5,000 unit Dextrose (D5w) 500 mls @ 0 mls/hr IV ONCE PRN; Protocol PRN Reason: Adult Acute Hypoglycemia Prot Dextrose (D10w) 125 mls @ 750 mls/hr IV PRN PRN; Protocol PRN Reason: Adult Acute Hypoglycemia Nursing Protocol Dextrose (D10w) 250 mls @ 1,000 mls/hr IV PRN PRN; Protocol PRN Reason: Adult Acute Hypoglycemia Nursing Protocol Insulin Human Lispro (Insulin Lispro 100 Unit/1 Ml) 0 unit SUBCUT WM&BEDTIME [facility]; Protocol Last Admin: 09/10/23 08:51 Dose: Not Given Levothyroxine Sodium (Levothyroxine 50 Mcg Tablet) 50 mcg PO DAILY [facility] Last Admin: 09/10/23 09:11 Dose: 50 mcg Metoprolol Succinate (Metoprolol Succinate Er (24 Hr) 50 Mg Tablet) 25 mg PO DAILY [facility] Last Admin: 09/10/23 09:11 Dose: 25 mg Morphine Sulfate (Morphine Ir 15 Mg Tablet) 15 mg PO Q4H PRN PRN Reason: SEVERE PAIN Last Admin: 09/09/23 16:54 Dose: 15 mg Multivitamins (R-Msdgwru-Ayeocdb C Tablet) 1 each PO DAILY [facility] Last Admin: 09/10/23 09:10 Dose: 1 each Nystatin (Nystatin Cream 30 Gm) 1 applic TOPICAL BID [facility] Last Admin: 09/10/23 09:13 Dose: 1 applic Ondansetron HCl (Ondansetron 2 Mg/Ml Sdv 2 Ml) 4 mg IVP Q8H PRN PRN Reason: vomiting, or N/V if npo Ondansetron HCl (Ondansetron 4 Mg Tablet) 4 mg PO Q8H PRN PRN Reason: NAUSEA Ropinirole HCl (Ropinirole 0.25 Mg Tablet) 0.5 mg PO DAILY@1999 [facility] Last Admin: 09/09/23 20:45 Dose: 0.5 mg Sevelamer Carbonate (Sevelamer 800 Mg Tablet) 1,600 mg PO TID [facility] Last Admin: 09/10/23 09:12 Dose: 1,600 mg Vitals/I&O/Wt Last Vital Signs Temp 97.6 F 09/10/23 07:53 Pulse 82 09/10/23 07:53 Resp 18 06/01/24 07:53 BP 95/62 09/10/23 07:53 Pulse Ox 93 09/10/23 07:53 O2 Del Method Nasal Cannula 09/10/23 07:53 O2 Flow Rate 2 09/08/23 20:00 09/09/23 09/10/23 09/10/23 22:59 06:59 14:59 Intake Total 980 / 2940 0 / 2940 680 / 680 Output Total 1451 / 1451 Balance -471 / 1489 0 / 1489 680 / 680 Weight last 48 hrs Weight 81.284 kg Weight 56.3 kg Weight 72.756 kg Weight 64.229 kg Physical Exam 2 Narrative: obese, comfortable in bed, NARD VSS heent- nc/at, eomi neck supple lungs good air movement b/l heart reg +s1, s2, +RAMA abd soft, + bs, nt, nd ext RUE AVF w/ thrill and bruit left arm broken 1+ leg edema neuro- awake, alert bandage on decubitus ulcer skin pannus cellulitis, breakdown per nurse telehealth visit- with RN Data 09/10/23 08:19 09/10/23 08:19 Micro: Microbiology 09/08/23 13:00 Gram Stain - Final Back Tissue Culture - Preliminary A&P Assessment and plan (1) ESRD (end stage renal disease): 57 yr old female w/ weakness, anemia, and Left humeral fracture. 1. anemia- ferritin >44119- -no iv iron give epo -hgb improved s/p 1 unit prbc transfusion 2. ESRD- She has ESRD since 2018 from htn, dm, obesity -s/p HD yesterday- cont MWF 3. hypothyroidism- normal tsh on levothyroxine 4. IDDM - monitor for hypoglycemia 5. htn- bp low 6. hyponatremia- stable w/ hd. 7. cellulitis - renal dose abx s/p I and D of decubitus ulcer 09/08/23 8. renal bone mineral metabolism- pth 336 vit d level 31 - phos improving on binder seen and examined w/ rN- telehealth visit informed consent for telehealth obtained from pt Plan see above. Attestations 2 Medical Necessity Statement*: esrd, skin wounds, obesity, humeral fx Time Spent in Patient Care: 16 - 35 minutes Coding Level of Care Code Acute Code for Chg Fwd Diagnoses ESRD (end stage renal disease) N18.6
[2023-09-10] MEDS: heparin 5,000 unit/mL INJ 1 mL 5000 UNIT SUBCUT ×2 (11:49→23:05)
--- NOTE | 2023-09-10 12:44 | P.PN_ITS ---
Subjective 2 Subjective: Patient is very happy with the progress Satisfied with the service in the hospital Hemoglobin stable Plan to discharge her likely on Tuesday Vitals/I&O/Wt Last Vital Signs Temp 98.1 F 09/10/23 11:47 Pulse 82 09/10/23 11:47 Resp 18 09/10/23 07:53 BP 103/64 09/10/23 11:47 Pulse Ox 95 09/10/23 11:47 O2 Del Method Nasal Cannula 09/10/23 11:47 O2 Flow Rate 2 09/08/23 20:00 09/09/23 09/10/23 09/10/23 22:59 06:59 14:59 Intake Total 980 / 2940 0 / 2940 680 / 680 Output Total 1451 / 1451 Balance -471 / 1489 0 / 1489 680 / 680 Weight last 48 hrs Weight 81.284 kg Weight 56.3 kg Weight 72.756 kg Weight 64.229 kg Physical Exam 2 Narrative: Patient laying supine Nasal cannula still in her mouth Awake and alert GCS 15 Euvolemic Sacral ulcer covered with dressing Abdominal wall cellulitis less soreness No worsening of erythema progression noted Data 09/10/23 08:19 09/10/23 08:19 Micro: Microbiology 09/08/23 13:00 Gram Stain - Final Back Tissue Culture - Preliminary A&P Assessment and plan (1) Failure to thrive: (2) Insulin dependent type 2 diabetes mellitus: (3) Diabetes: (4) Hypertension: (5) Abdominal wall cellulitis: (6) Fracture of humeral head, left, closed: Qualifiers: Encounter type: initial encounter Qualified Code(s): S42.292A - Other displaced fracture of upper end of left humerus, initial encounter for closed fracture (7) Fracture of greater tuberosity of left humerus: Qualifiers: Encounter type: initial encounter Fracture type: closed Fracture alignment: nondisplaced Qualified Code(s): S42.255A - Nondisplaced fracture of greater tuberosity of left humerus, initial encounter for closed fracture (8) Closed left humeral fracture: Qualifiers: Encounter type: initial encounter Humerus Location: proximal (9) Rash: (10) Weakness: (11) Stage III pressure ulcer of sacral region: Plan Plan to discharge on Tuesday to a long-term Continue dialysis Tuesday Hemoglobin stable I am using Santyl to apply on abdominal wall for cellulitis along Augmentin and doxycycline No active sign of progressive cellulitis Continue DVT prophylaxis with heparin Continue home medications Attestations 2 Medical Necessity Statement*: Awaiting placement Diagnoses Failure to thrive Insulin dependent type 2 diabetes mellitus E11.9; Z79.4 Diabetes E11.9 Hypertension I10 Abdominal wall cellulitis L03.311 Closed fracture of head of left humerus, initial encounter S42.292A Encounter type: initial encounter Closed nondisplaced fracture of greater tuberosity of left humerus, initial encounter S42.255A Encounter type: initial encounter Fracture type: closed Fracture alignment: nondisplaced Closed left humeral fracture S42.302A Encounter type: initial encounter Humerus Location: proximal Rash R21 Weakness R53.1 Stage III pressure ulcer of sacral region L89.153
[2023-09-10 17:03] LABS: Glucose Point of Care 123 mg/dL (70-110)
[2023-09-10] MEDS: atorvastatin 40 mg Tablet 80 MG PO (20:33)
[2023-09-10] MEDS: ropinirole 0.25 mg Tablet 0.5 MG PO (20:33)
[2023-09-10] MEDS: diphenhydrAMINE 25 mg Capsule PO (20:33)
[2023-09-10 21:38] LABS: Glucose Point of Care 105 mg/dL (70-110)
[2023-09-11] VITALS (11 sets, daily range): BP systolic 100–176; BP diastolic 49–84; PULSE 73–88; RESP 16–19; TEMP 36.6–37.1; O2SAT 92–100
[2023-09-11] MEDS: morphine IR 15 mg Tablet PO ×2 (06:04→12:23)
[2023-09-11 06:26] LABS: Alanine Aminotransferase 10 U/L (0-33); Albumin Level 2.6 g/dL (3.5-5.2); Alkaline Phosphatase 86 U/L (35-105); Anion Gap 16.9 (5-19); Aspartate Amino Transferase 23 U/L (0-32); Blood Urea Nitrogen 26 mg/dL (6-20); Calcium 8.4 mg/dL (8.5-10.5); Carbon Dioxide 26 mmol/L (22-29); Chloride 91 mmol/L (98-107); Creatinine Clr Calc Pharmacy 13.3939; Globulin 3.8 g/dL (1.3-4.6); Glomerular Filtration Rate 12.2 mL/min (90-130); Glucose 81 mg/dL (65-115); Magnesium 1.8 mg/dL (1.7-2.3); Osmolality Calculated 272 mOsm/kg (285-295); Phosphorus 3.7 mg/dL (2.5-4.5); Potassium 4.9 mmol/L (3.5-5.1); Sodium 129 mmol/L (136-145); Total Bilirubin 0.3 mg/dL (0.15-1.2); Total Protein 6.4 g/dL (6.6-8.7)
[2023-09-11 06:35] LABS: Glucose Point of Care 80 mg/dL (70-110)
--- NOTE | 2023-09-11 06:44 | PM.PN ---
Subjective Subjective: feels better. wants to try to ambulate. looking forwarrd to going to rehab soon. Medications: Reviewed: Yes Medication Review Details: Current Medications Acetaminophen (Acetaminophen 325 Mg Tablet) 650 mg PO Q6H PRN PRN Reason: Mild/Mod Pain Or Temp >/= 101 Last Admin: 09/09/23 14:08 Dose: 650 mg Amoxicillin/Clavulanate Potassium (Amoxicillin-Clav 875-125 Mg Tablet) 1 tab PO BID [facility]; Protocol Last Admin: 09/10/23 17:59 Dose: 1 tab Atorvastatin Calcium (Atorvastatin 40 Mg Tablet) 80 mg PO BEDTIME [facility] Last Admin: 09/10/23 20:33 Dose: 80 mg Bacitracin (Bacitracin Ointment Pkt) 1 each TOPICAL TID [facility]; Protocol Last Admin: 09/10/23 20:33 Dose: 1 each Camphor/Menthol/Phenol (Blistex Lip Oint 7 Gm Tube) 1 applic TOPICAL PRN PRN PRN Reason: DRYNESS Last Admin: 09/09/23 03:41 Dose: 1 applic Carbidopa/Levodopa (Carbidopa-Levodopa 25-100mg Tablet) 0 each PO .COMPLEX [facility] Collagenase (Collagenase Oint 30 Gm) 1 applic TOPICAL DAILY [facility] Last Admin: 09/10/23 09:13 Dose: 1 applic Cyclobenzaprine HCl (Cyclobenzaprine 10 Mg Tablet) 10 mg PO Q8H PRN PRN Reason: MUSCLE SPASMS Last Admin: 09/09/23 16:54 Dose: 10 mg Diphenhydramine HCl (Diphenhydramine 25 Mg Capsule) 25 mg PO BEDTIME@2000 [facility] Last Admin: 09/10/23 20:33 Dose: 25 mg Doxycycline Monohydrate (Doxycycline 100 Mg Tablet) 100 mg PO BID [facility]; Protocol Last Admin: 09/10/23 17:59 Dose: 100 mg Escitalopram Oxalate (Escitalopram 10 Mg Tablet) 40 mg PO DAILY@0800 [facility] Last Admin: 09/10/23 09:10 Dose: 40 mg Gabapentin (Gabapentin 100 Mg Capsule) 100 mg PO BID [facility] Last Admin: 09/10/23 17:59 Dose: 100 mg Heparin Sodium (Porcine) (Heparin 5,000 Unit/Ml Inj 1 Ml) 5,000 unit SUBCUT Q12H [facility] Last Admin: 09/10/23 23:05 Dose: 5,000 unit Dextrose (D5w) 500 mls @ 0 mls/hr IV ONCE PRN; Protocol PRN Reason: Adult Acute Hypoglycemia Prot Dextrose (D10w) 125 mls @ 750 mls/hr IV PRN PRN; Protocol PRN Reason: Adult Acute Hypoglycemia Nursing Protocol Dextrose (D10w) 250 mls @ 1,000 mls/hr IV PRN PRN; Protocol PRN Reason: Adult Acute Hypoglycemia Nursing Protocol Insulin Human Lispro (Insulin Lispro 100 Unit/1 Ml) 0 unit SUBCUT WM&BEDTIME [facility]; Protocol Last Admin: 09/10/23 21:42 Dose: Not Given Levothyroxine Sodium (Levothyroxine 50 Mcg Tablet) 50 mcg PO DAILY [facility] Last Admin: 09/10/23 09:11 Dose: 50 mcg Metoprolol Succinate (Metoprolol Succinate Er (24 Hr) 50 Mg Tablet) 25 mg PO DAILY [facility] Last Admin: 09/10/23 09:11 Dose: 25 mg Morphine Sulfate (Morphine Ir 15 Mg Tablet) 15 mg PO Q4H PRN PRN Reason: SEVERE PAIN Last Admin: 09/11/23 06:04 Dose: 15 mg Multivitamins (R-Lfdixyj-Pveltqj C Tablet) 1 each PO DAILY [facility] Last Admin: 09/10/23 09:10 Dose: 1 each Nystatin (Nystatin Cream 30 Gm) 1 applic TOPICAL BID [facility] Last Admin: 09/10/23 18:00 Dose: 1 applic Ondansetron HCl (Ondansetron 2 Mg/Ml Sdv 2 Ml) 4 mg IVP Q8H PRN PRN Reason: vomiting, or N/V if npo Ondansetron HCl (Ondansetron 4 Mg Tablet) 4 mg PO Q8H PRN PRN Reason: NAUSEA Ropinirole HCl (Ropinirole 0.25 Mg Tablet) 0.5 mg PO DAILY@1999 [facility] Last Admin: 09/10/23 20:33 Dose: 0.5 mg Sevelamer Carbonate (Sevelamer 800 Mg Tablet) 1,600 mg PO TID [facility] Last Admin: 09/10/23 20:33 Dose: 1,600 mg Vitals/I&O/Wt Last Vital Signs Temp 98.3 F 09/11/23 03:52 Pulse 73 09/11/23 06:00 Resp 18 09/11/23 06:04 BP 100/49 09/11/23 03:52 Pulse Ox 97 09/11/23 06:04 O2 Del Method Nasal Cannula 09/11/23 03:52 O2 Flow Rate 2 09/10/23 20:00 09/10/23 09/10/23 09/11/23 14:59 22:59 06:59 Intake Total 1360 / 1360 680 / 2040 0 0 Balance 1360 / 1360 680 / 0 2039 Weight last 48 hrs Weight 63.191 kg Weight 81.284 kg Weight 56.3 kg Physical Exam Narrative: obese, comfortable in bed, NARD VSS heent- nc/at, eomi neck supple lungs good air movement b/l heart reg +s1, s2, +RAMA abd soft, + bs, nt, nd ext RUE AVF w/ thrill and bruit left arm broken 1+ leg edema neuro- awake, alert bandage on decubitus ulcer skin pannus cellulitis, breakdown per nurse telehealth visit- with RN Data 09/10/23 08:19 09/11/23 05:46 Micro: Microbiology 09/08/23 13:00 Gram Stain - Final Back Tissue Culture - Preliminary Streptococcus group c A&P Assessment and plan (1) ESRD (end stage renal disease): 57 yr old female w/ weakness, anemia, and Left humeral fracture. 1. anemia- ferritin >56399- -no iv iron give epo -hgb improved s/p 1 unit prbc transfusion 2. ESRD- She has ESRD since 2018 from htn, dm, obesity - cont MWF 3. hypothyroidism- normal tsh on levothyroxine 4. IDDM - monitor for hypoglycemia 5. htn- bp low 6. hyponatremia- stable w/ hd. 7. cellulitis - renal dose abx s/p I and D of decubitus ulcer 09/08/23 8. renal bone mineral metabolism- pth 336 vit d level 31 - phos improving on binder seen and examined w/ rN- telehealth visit informed consent for telehealth obtained from pt Plan see above. Attestations Medical Necessity Statement*: esrd, cellulitis, humeral fx, inability to ambuate and take care of her ADL's independentky Time Spent in Patient Care: 16 - 35 minutes Coding Level of Care Code Acute Code for Chg Fwd Diagnoses ESRD (end stage renal disease) N18.6
[2023-09-11] MEDS: collagenase oint 30 gm 1 APPLIC TOPICAL (08:39)
[2023-09-11] MEDS: nystatin cream 30 gm 1 APPLIC TOPICAL ×2 (08:39→17:25)
[2023-09-11] MEDS: gabapentin 100 mg Capsule PO ×2 (08:40→17:24)
[2023-09-11] MEDS: doxycycline 100 mg Tablet PO ×2 (08:40→17:24)
[2023-09-11] MEDS: escitalopram 10 mg Tablet 40 MG PO (08:40)
[2023-09-11] MEDS: levothyroxine 50 mcg Tablet PO (08:40)
[2023-09-11] MEDS: bacitracin ointment Pkt 1 EACH TOPICAL ×3 (08:40→20:54)
[2023-09-11] MEDS: amoxicillin-clav 875-125 mg Tablet 1 TAB PO ×2 (08:40→17:24)
[2023-09-11] MEDS: sevelamer 800 mg Tablet 1600 MG PO ×3 (08:41→20:54)
[2023-09-11] MEDS: b-complex-vitamin c Tablet 1 EACH PO (08:41)
[2023-09-11] MEDS: metoprolol succinate ER (24 HR) 50 mg Tablet 25 MG PO (08:41)
[2023-09-11] MEDS: cyclobenzaprine 10 mg Tablet PO (08:41)
[2023-09-11 11:20] LABS: Glucose Point of Care 168 mg/dL (70-110)
--- NOTE | 2023-09-11 11:40 | P.PN_ITS ---
Subjective 2 Subjective: Patient is doing better No active complaints Patient is happy with the progress Currently on room air Wound culture from the back growing Streptococcus group C Vitals/I&O/Wt Last Vital Signs Temp 98.4 F 09/11/23 07:44 Pulse 88 09/11/23 07:44 Resp 16 09/11/23 07:44 BP 176/84 09/11/23 07:44 Pulse Ox 100 09/11/23 07:44 O2 Del Method Nasal Cannula 09/11/23 07:44 O2 Flow Rate 2 09/10/23 20:00 09/10/23 09/11/23 09/11/23 22:59 06:59 14:59 Intake Total 680 / 2040 0 / 2040 720 / 720 Balance 680 / 2040 0 / 2040 720 / 720 Weight last 48 hrs Weight 63.191 kg Weight 81.284 kg Weight 56.3 kg Physical Exam 2 Narrative: Abdominal wall cellulitis has not shown any sign of granulation tissue Sacral ulcer with wet-to-dry dressing Awake and alert Currently on room air Pleasant and calm On tender abdomen Nonfocal neuroexam GCS 15 Euvolemic Data 09/10/23 08:19 09/11/23 05:46 Micro: Microbiology 09/08/23 13:00 Gram Stain - Final Back Tissue Culture - Preliminary Streptococcus group c A&P Assessment and plan (1) Diabetes: (2) Insulin dependent type 2 diabetes mellitus: (3) Failure to thrive: (4) ESRD (end stage renal disease): (5) Abdominal wall cellulitis: (6) Stage III pressure ulcer of sacral region: (7) Closed left humeral fracture: Qualifiers: Encounter type: initial encounter Humerus Location: proximal (8) Rash: (9) Weakness: Plan Plan is to discharge on Tuesday with oral antibiotic doxycycline and Augmentin Group C Streptococcus positive from wound culture sacral stage III ulcer We are applying Santyl and topical antibiotics on abdominal wall cellulitis There is no sign of progression however she has not shown signs of granulation tissue or healing as of yet Patient will need wound care follow-up outpatient Continue dialysis as per the schedule Tuesday Status post 1 unit PRBC for anemia of chronic disease otherwise hemoglobin is stable Attestations 2 Medical Necessity Statement*: Discharge likely tomorrow Diagnoses Diabetes E11.9 Insulin dependent type 2 diabetes mellitus E11.9; Z79.4 Failure to thrive ESRD (end stage renal disease) N18.6 Abdominal wall cellulitis L03.311 Stage III pressure ulcer of sacral region L89.153 Closed left humeral fracture S42.302A Encounter type: initial encounter Humerus Location: proximal Rash R21 Weakness R53.1
[2023-09-11] MEDS: insulin lispro 100 unit/1 mL SUBCUT (12:24)
[2023-09-11] MEDS: heparin 5,000 unit/mL INJ 1 mL 5000 UNIT SUBCUT ×2 (12:24→23:57)
[2023-09-11 16:45] LABS: Glucose Point of Care 105 mg/dL (70-110)
[2023-09-11] MEDS: acetaminophen 325 mg Tablet 650 MG PO (17:30)
[2023-09-11 20:19] LABS: Glucose Point of Care 119 mg/dL (70-110)
[2023-09-11] MEDS: ropinirole 0.25 mg Tablet 0.5 MG PO (20:54)
[2023-09-11] MEDS: diphenhydrAMINE 25 mg Capsule PO (20:54)
[2023-09-11] MEDS: atorvastatin 40 mg Tablet 80 MG PO (20:54)
[2023-09-12] VITALS (11 sets, daily range): BP systolic 88–144; BP diastolic 46–80; PULSE 68–91; RESP 17–18; TEMP 36.4–36.9; O2SAT 93–98
[2023-09-12 06:35] LABS: Glucose Point of Care 85 mg/dL (70-110)
--- NOTE | 2023-09-12 06:43 | PM.DCS ---
Discharge Providers Date of Admission: 09/05/23 20:35 Date of Discharge: September 12, 2023 Attending Provider at Admission: Fernando Garcia MD Attending Provider at Discharge: Jigar Flanagan MD Primary Care Provider: Vivienne Schulz MD Diagnoses at Discharge Discharge Diagnosis (1) Diabetes: Status: Acute (2) Insulin dependent type 2 diabetes mellitus: Status: Acute (3) Failure to thrive: Status: Acute (4) ESRD (end stage renal disease): Status: Acute (5) Abdominal wall cellulitis: Status: Acute (6) Stage III pressure ulcer of sacral region: Status: Acute (7) Closed left humeral fracture: Status: Inactive Qualifiers: Encounter type: initial encounter Humerus Location: proximal (8) Rash: Status: Acute (9) Weakness: Status: Acute Reason for Visit Reason for Visit: lt shoulder pain Hospital Course Hospital Course 57-year-old female with history of cognitive impairment, has a caregiver at home, presented with failure to thrive, she is a end-stage renal disease patient who gets dialysis Tuesday, during hospitalization we noticed she has stage III sacral ulcer, surgery was consulted for debridement, she went for surgical debridement on 09/[address] Adams, Wound measures 2.5 x 2.3 x 1.4 cm. She also has abdominal wall cellulitis with significant intertrigo without sign of progressive cellulitis or necrotizing fasciitis, she was put on Augmentin, doxycycline along Santyl topical dressing, she is getting wet-to-dry dressing for sacral ulcer. Patient was very happy with the progress in the hospital, we are discharging her to senior living because significant nursing care that she needs, caregiver at home is not very able to provide care to this extent. Patient uses 2 L of oxygen intermittently however at home uses 2 L at night. She remained hemodynamically stable, sacral wound culture showed Streptococcus, blood cultures negative, Physical Exam Narrative: Awake and alert Euvolemic GCS 15 Wet-to-dry dressing sacral area Abdominal cellulitis without significant signs of healing no granulation tissue noted On 2 L Hemodynamically stable S1, S2 Discharge Data Studies Completed and Pending Completed Studies During Hospitalization Category Date Time Status CT lumbar spine wo con* [id number] Stat Cat Scan 09/05/23 16:[address] pelvis wo con [id number] Stat Cat Scan 09/05/23 16:20 Completed XR shoulder LT min 2V* [id number] Routine Exams 09/07/23 13:43 Completed XR shoulder LT min 2V* [id number] Stat Exams 09/05/23 16:21 Completed Pending at discharge Category Date Time Status CT head wo con* [id number] Stat Cat Scan 09/10/23 19:15 Taken Comprehensive Metabolic Panel [facility] Lab 09/12/23 06:19 Received Comprehensive Metabolic Panel [facility] Lab 09/13/23 04:00 Ordered Comprehensive Metabolic Panel AM [facility] Lab 09/14/23 04:00 Ordered Magnesium AM [facility] Lab 09/12/23 06:19 Received Magnesium AM [facility] Lab 09/13/23 04:00 Ordered Magnesium AM LABS Lab 09/14/23 04:00 Ordered Phosphorus AM LABS Lab 09/12/23 06:19 Received Phosphorus AM LABS Lab 09/13/23 04:00 Ordered Phosphorus AM LABS Lab 09/14/23 04:00 Ordered Tissue Culture and Gram Stain Routine Lab 09/08/23 13:00 Results Radiology Impressions Lumbar Spine CT 09/05/23 16:20 IMPRESSION: 1. No evidence of acute fracture or dislocation. 2. Moderate degenerative change of the lower lumbar spine. Pelvis CT 09/05/23 16:20 IMPRESSION: 1. No definitive evidence of acute fracture or dislocation. 2. Mild irregularity of the distal coccygeal element may be a chronic finding. Minimally displaced coccygeal fracture not excluded based on this appearance. 3. Degenerative changes of the hips. Laboratory Results WBC 7.26 10^3/uL (3.29-11.43) 09/10/23 08:19 Corrected WBC Cancelled 09/07/23 17:00 RBC 3.22 10^6/uL (3.85-5.65) L 09/10/23 08:19 Hgb 9.60 g/dL (11.27-16.99) L 09/10/23 08:19 Hct 32.4 % (36-47) L 09/10/23 08:19 MCV 100.6 fl (85-98) H 09/10/23 08:19 MCH 29.8 pg (27-33) 09/10/23 08:19 MCHC 29.6 g/dL (30-55) L D 09/10/23 08:19 RDW 14.9 % (12.1-15.1) 09/10/23 08:19 Plt Count 317 10^3/cmm (157-399) 09/10/23 08:19 MPV 10.2 fL (7.4-10.4) 09/10/23 08:19 Gran % Cancelled 09/07/23 17:00 Neut % (Auto) 80.2 % 09/10/23 08:19 Lymph % (Auto) 9.4 % 09/10/23 08:19 [place] % (Auto) 9.1 % 09/10/23 08:19 Eos % (Auto) 0.1 % 09/10/23 08:19 Baso % (Auto) 0.1 % 09/10/23 08:19 Neut # (Auto) 5.82 10^3/uL (1.8-7.7) 09/10/23 08:19 Lymph # (Auto) 0.7 10^3/uL (0.8-4.8) L 09/10/23 08:19 [place] # (Auto) 0.7 10^3/uL (0.2-0.9) 09/10/23 08:19 Eos # (Auto) 0.0 10^3/uL (0.0-0.8) 09/10/23 08:19 Baso # (Auto) 0.0 10^3/uL (0.0-0.1) 09/10/23 08:19 Absolute Gran (auto) Cancelled 09/07/23 17:00 Nucleated RBC % (auto) 0.3 % 09/10/23 08:19 Nucleated RBCs # 0.0 /100WBC 09/10/23 08:19 Sodium 129 mmol/L (136-145) L 09/11/23 05:46 Potassium 4.9 mmol/L (3.5-5.1) 09/11/23 05:46 Chloride 91 mmol/L (98-107) L 09/11/23 05:46 Carbon Dioxide 26 mmol/L (22-29) 09/11/23 05:46 Anion Gap 16.9 (5-19) 09/11/23 05:46 BUN 26 mg/dL (6-20) H 09/11/23 05:46 Creatinine 3.8 mg/dL (0.5-0.9) H 09/11/23 05:46 GFR Calculation 12.2 mL/min (90-130) L 09/11/23 05:46 Glucose 81 mg/dL (65-115) 09/11/23 05:46 POC Glucose 85 mg/dL (70-110) 09/12/23 06:31 Calculated Osmolality 272 mOsm/kg (285-295) L 09/11/23 05:46 Uric Acid 7.0 mg/dL (2.4-5.7) H 09/05/23 17:07 Calcium 8.4 mg/dL (8.5-10.5) L 09/11/23 05:46 Phosphorus 3.7 mg/dL (2.5-4.5) 09/11/23 05:46 Magnesium 1.8 mg/dL (1.7-2.3) 09/11/23 05:46 Iron 43 ug/dL (37-145) 09/06/23 04:19 TIBC 169 mcg/dl 09/06/23 04:19 % Saturation 25.4 % (20-50) 09/06/23 04:19 Unsat Iron Binding 126 ug/dL (112-347) 09/06/23 04:19 Ferritin > 80430 ng/mL (15-150) H 09/06/23 04:19 Total Bilirubin 0.3 mg/dL (0.15-1.2) 09/11/23 05:46 AST 23 U/L (0-32) 09/11/23 05:46 ALT 10 U/L (0-33) 09/11/23 05:46 Alkaline Phosphatase 86 U/L (35-105) 09/11/23 05:46 Total Protein 6.4 g/dL (6.6-8.7) L 09/11/23 05:46 Albumin 2.6 g/dL (3.5-5.2) L 09/11/23 05:46 Globulin 3.8 g/dL (1.3-4.6) 09/11/23 05:46 25-OH Vitamin D Total 31 ng/mL (30-100) 09/06/23 04:19 25-OH Vitamin D Total 32 ng/mL (30-100) 09/06/23 04:19 TSH 2.34 uIU/mL (0.27-4.20) 09/06/23 04:19 PTH Intact 336.4 pg/mL (15-65) H 09/06/23 04:19 Calcium (PTH Intact) 7.3 mg/dL (8.5-10.5) L 09/06/23 04:19 Hep Bs Antigen Non-reactive (Nonreactive) 09/05/23 04:19 Hep Bs Antibody 128.1 (11.5-1000) 09/05/23 04:19 Hepatitis C Antibody Non-reactive (Nonreactive) 09/05/23 04:19 Blood Type A Positive 09/07/23 09:44 Rho(D) Type Rh positive 09/07/23 09:44 Antibody Screen Negative 09/07/23 09:44 Crossmatch See Detail 09/07/23 09:44 Vitals Last Vital Signs Temp 98.0 F 09/12/23 04:00 Pulse 84 09/12/23 04:00 Resp 18 09/12/23 04:00 BP 110/68 09/12/23 04:00 Pulse Ox 93 09/12/23 04:00 O2 Del Method Room Air 09/12/23 04:00 O2 Flow Rate 2 09/10/23 20:00 Discharge Plan Discharge Patient Disposition: Xfer SNF Condition: Stable Prescriptions: New doxycycline monohydrate 100 mg Tablet 100 mg PO BID Qty: 10 0RF amoxicillin-pot clavulanate 875-125 mg Tablet 1 tab PO BID Qty: 10 0RF Santyl 250 unit/gram Ointment 1 applic topical DAILY Qty: 30 0RF Rx Instructions: Twice daily daily Continued escitalopram oxalate [Lexapro] 20 mg tablet 40 mg PO DAILY@0800 [facility] 800 mcg-12.5 mg -2,000 unit tablet 1 tab PO DAILY@2000 (DME) Dexcom G6 Administrative Support Clerk Misc See Rx Instructions .Route Qty: 1 0RF Rx Instructions: Check BS continuously (DME) Dexcom G6 Sensor Device See Rx Instructions .Route Qty: 9 3RF Rx Instructions: Change every 10 days. gabapentin 100 mg capsule 100 mg PO TID Qty: 90 4RF (DME) Dexcom G6 Transmitter Device See Rx Instructions .Route Qty: 3 3RF Rx Instructions: Change every 90 days. Glucagon Emergency Kit (human) 1 mg recon soln 1 mg SUBCUT Q20M PRN (Reason: hypoglycemia) Qty: 1 3RF Rx Instructions: until target blood sugar attained amlodipine [Norvasc] 2.5 mg tablet 2.5 mg PO DAILY carbidopa-levodopa 25-100 mg tablet See Rx Instructions .ROUTE .COMPLEX Rx Instructions: 0.5 tab orally BEFORE DIALYSIS Auryxia 210 mg iron tablet 630 mg PO TID@08,12,20 Rx Instructions: TAKE WITH MEALS ropinirole 0.5 mg tablet 0.5 mg PO DAILY@1999 clopidogrel 75 mg tablet 75 mg PO DAILY Qty: 30 0RF atorvastatin 80 mg tablet 80 mg PO DAILY metoprolol succinate 50 mg tablet extended release 24 hr 50 mg PO DAILY levothyroxine 50 mcg tablet 50 mcg PO DAILY rosuvastatin 20 mg tablet 20 mg PO BEDTIME mupirocin 2 % ointment 1 applic topical TID PRN (Reason: Skin Irritation) cyclobenzaprine 10 mg tablet 10 mg PO Q8H PRN (Reason: MUSCLE SPASMS) Qty: 14 0RF Discontinued diphenhydramine HCl [Benadryl] 25 mg Capsule 25 mg PO BEDTIME@1999 prednisone 5 mg tablet 5 mg PO DAILY PRN (Reason: Allergic Reaction) hydromorphone [Dilaudid] 2 mg tablet 2 mg PO Q8H PRN (Reason: pain) Qty: 10 0RF Discharge Orders: Discharge Order (Routine); Ordered 09/12/23 Ordered By: Jigar Flanagan Referrals: Vivienne Schulz MD [Primary Care Provider] - 09/20/23 9:30 am (This appointment is scheduled with Sydni Levin. ) Patient Instructions: Dialysis Diet (DC), Hemodialysis (DC) Discharge Attestations Time Spent in Discharge Care*: greater than 30 min Status at Discharge: Cognitive status at discharge: cognitively intact, Behavioral status at discharge: cooperative, Quality Metrics Clinical Quality Measures [ No reported AMI, CVA or VTE this stay] Coding Level of Care Code Acute Code for Chg Fwd Diagnoses Diabetes E11.9 Insulin dependent type 2 diabetes mellitus E11.9; Z79.4 Failure to thrive ESRD (end stage renal disease) N18.6 Abdominal wall cellulitis L03.311 Stage III pressure ulcer of sacral region L89.153 Closed left humeral fracture S42.302A Encounter type: initial encounter Humerus Location: proximal Rash R21 Weakness R53.1
[2023-09-12 07:22] LABS: Alanine Aminotransferase 9 U/L (0-33); Albumin Level 2.9 g/dL (3.5-5.2); Alkaline Phosphatase 93 U/L (35-105); Aspartate Amino Transferase 21 U/L (0-32); Blood Urea Nitrogen 37 mg/dL (6-20); Calcium 8.9 mg/dL (8.5-10.5); Carbon Dioxide 23 mmol/L (22-29); Chloride 88 mmol/L (98-107); Creatinine Clr Calc Pharmacy 10.0301; Globulin 2.9 g/dL (1.3-4.6); Glomerular Filtration Rate 8.9 mL/min (90-130); Glucose 77 mg/dL (65-115); Magnesium 1.9 mg/dL (1.7-2.3); Osmolality Calculated 269 mOsm/kg (285-295); Phosphorus 4.9 mg/dL (2.5-4.5); Sodium 126 mmol/L (136-145); Total Bilirubin 0.3 mg/dL (0.15-1.2); Total Protein 5.8 g/dL (6.6-8.7)
--- NOTE | 2023-09-12 08:06 | P.PN_ITS ---
Subjective 2 Subjective: feels tires. still w/ skin wounds. poor appeite. weak, left arm pain. no sob or cp Medications: Reviewed: Yes Medication Review Details: Current Medications Acetaminophen (Acetaminophen 325 Mg Tablet) 650 mg PO Q6H PRN PRN Reason: Mild/Mod Pain Or Temp >/= 101 Last Admin: 09/11/23 17:30 Dose: 650 mg Amoxicillin/Clavulanate Potassium (Amoxicillin-Clav 875-125 Mg Tablet) 1 tab PO BID [facility]; Protocol Last Admin: 09/11/23 17:24 Dose: 1 tab Atorvastatin Calcium (Atorvastatin 40 Mg Tablet) 80 mg PO BEDTIME [facility] Last Admin: 09/11/23 20:54 Dose: 80 mg Bacitracin (Bacitracin Ointment Pkt) 1 each TOPICAL TID [facility]; Protocol Last Admin: 09/11/23 20:54 Dose: 1 each Camphor/Menthol/Phenol (Blistex Lip Oint 7 Gm Tube) 1 applic TOPICAL PRN PRN PRN Reason: DRYNESS Last Admin: 09/09/23 03:41 Dose: 1 applic Carbidopa/Levodopa (Carbidopa-Levodopa 25-100mg Tablet) 0 each PO .COMPLEX [facility] Collagenase (Collagenase Oint 30 Gm) 1 applic TOPICAL DAILY [facility] Last Admin: 09/11/23 08:39 Dose: 1 applic Cyclobenzaprine HCl (Cyclobenzaprine 10 Mg Tablet) 10 mg PO Q8H PRN PRN Reason: MUSCLE SPASMS Last Admin: 09/11/23 08:41 Dose: 10 mg Diphenhydramine HCl (Diphenhydramine 25 Mg Capsule) 25 mg PO BEDTIME@2000 [facility] Last Admin: 09/11/23 20:54 Dose: 25 mg Doxycycline Monohydrate (Doxycycline 100 Mg Tablet) 100 mg PO BID [facility]; Protocol Last Admin: 09/11/23 17:24 Dose: 100 mg Escitalopram Oxalate (Escitalopram 10 Mg Tablet) 40 mg PO DAILY@0800 [facility] Last Admin: 09/11/23 08:40 Dose: 40 mg Gabapentin (Gabapentin 100 Mg Capsule) 100 mg PO BID [facility] Last Admin: 09/11/23 17:24 Dose: 100 mg Heparin Sodium (Porcine) (Heparin 5,000 Unit/Ml Inj 1 Ml) 5,000 unit SUBCUT Q12H [facility] Last Admin: 09/11/23 23:57 Dose: 5,000 unit Dextrose (D5w) 500 mls @ 0 mls/hr IV ONCE PRN; Protocol PRN Reason: Adult Acute Hypoglycemia Prot Dextrose (D10w) 125 mls @ 750 mls/hr IV PRN PRN; Protocol PRN Reason: Adult Acute Hypoglycemia Nursing Protocol Dextrose (D10w) 250 mls @ 1,000 mls/hr IV PRN PRN; Protocol PRN Reason: Adult Acute Hypoglycemia Nursing Protocol Insulin Human Lispro (Insulin Lispro 100 Unit/1 Ml) 0 unit SUBCUT WM&BEDTIME [facility]; Protocol Last Admin: 09/12/23 08:06 Dose: Not Given Levothyroxine Sodium (Levothyroxine 50 Mcg Tablet) 50 mcg PO DAILY [facility] Last Admin: 09/11/23 08:40 Dose: 50 mcg Metoprolol Succinate (Metoprolol Succinate Er (24 Hr) 50 Mg Tablet) 25 mg PO DAILY [facility] Last Admin: 09/11/23 08:41 Dose: 25 mg Morphine Sulfate (Morphine Ir 15 Mg Tablet) 15 mg PO Q4H PRN PRN Reason: SEVERE PAIN Last Admin: 09/11/23 12:23 Dose: 15 mg Multivitamins (N-Cwlvnrm-Pcwwdjj C Tablet) 1 each PO DAILY [facility] Last Admin: 09/11/23 08:41 Dose: 1 each Nystatin (Nystatin Cream 30 Gm) 1 applic TOPICAL BID [facility] Last Admin: 09/11/23 17:25 Dose: 1 applic Ondansetron HCl (Ondansetron 2 Mg/Ml Sdv 2 Ml) 4 mg IVP Q8H PRN PRN Reason: vomiting, or N/V if npo Ondansetron HCl (Ondansetron 4 Mg Tablet) 4 mg PO Q8H PRN PRN Reason: NAUSEA Ropinirole HCl (Ropinirole 0.25 Mg Tablet) 0.5 mg PO DAILY@1999 [facility] Last Admin: 09/11/23 20:54 Dose: 0.5 mg Sevelamer Carbonate (Sevelamer 800 Mg Tablet) 1,600 mg PO TID [facility] Last Admin: 09/11/23 20:54 Dose: 1,600 mg Vitals/I&O/Wt Last Vital Signs Temp 98.0 F 09/12/23 04:00 Pulse 84 09/12/23 04:00 Resp 18 09/12/23 04:00 BP 110/68 09/12/23 04:00 Pulse Ox 93 09/12/23 04:00 O2 Del Method Room Air 09/12/23 04:00 O2 Flow Rate 2 09/10/23 20:00 09/11/23 09/12/23 09/12/23 22:59 06:59 14:59 Intake Total 960 / 2360 0 / 2360 Balance 960 / 2360 0 / 2360 Weight last 48 hrs Weight 61.263 kg Weight 63.191 kg Physical Exam 2 Narrative: obese, comfortable in bed, NARD VSS heent- nc/at, eomi neck supple lungs good air movement b/l heart reg +s1, s2, +RAMA abd soft, + bs, nt, nd ext RUE AVF w/ thrill and bruit left arm broken 1+ leg edema neuro- awake, alert bandage on decubitus ulcer skin pannus cellulitis, breakdown per nurse telehealth visit- with RN Data 09/10/23 08:19 09/12/23 06:19 Micro: Microbiology 09/08/23 13:00 Gram Stain - Final Back Tissue Culture - Preliminary Streptococcus group c A&P Assessment and plan (1) ESRD (end stage renal disease): 57 yr old female w/ weakness, anemia, and Left humeral fracture. 1. anemia- ferritin >90487- -no iv iron give epo -hgb improved s/p 1 unit prbc transfusion 2. ESRD- She has ESRD since 2018 from htn, dm, obesity - cont MWF- today 2 k bath 3. hypothyroidism- normal tsh on levothyroxine 4. IDDM - monitor for hypoglycemia 5. htn- bp low 6. hyponatremia- monitor for improvement w/ hd. 7. cellulitis - renal dose abx s/p I and D of decubitus ulcer 09/08/23 8. renal bone mineral metabolism- pth 336 vit d level 31 - phos improving on binder seen and examined w/ rN- telehealth visit informed consent for telehealth obtained from pt Plan see above. Attestations 2 Medical Necessity Statement*: esrds, decubitus ulcer, cellulitis, hyponatremia, humeral fx Time Spent in Patient Care: 16 - 35 minutes Coding Level of Care Code Acute Code for Chg Fwd Diagnoses ESRD (end stage renal disease) N18.6
--- NOTE | 2023-09-12 08:51 | P.PN_ITS ---
Subjective 2 Subjective: Patient discharged got canceled because she was not excepted by the long term at the last moment Patient is not requiring any IV medications we have removed her IV lines Patient not complain of any pain Vitals/I&O/Wt Last Vital Signs Temp 97.7 F 09/13/23 07:25 Pulse 73 09/13/23 07:25 Resp 16 09/13/23 07:25 BP 98/60 09/13/23 07:25 Pulse Ox 97 09/13/23 07:25 O2 Del Method Nasal Cannula 09/13/23 07:25 O2 Flow Rate 2 09/13/23 07:25 09/12/23 09/13/23 09/13/23 22:59 06:59 14:59 Intake Total 840 / 860 Output Total 432 / 432 Balance 408 / 428 Weight last 48 hrs Weight 75.863 kg Weight 75.478 kg Weight 61.263 kg Physical Exam 2 Narrative: Awake and alert Euvolemic GCS 15 Wet-to-dry dressing sacral area Abdominal cellulitis without significant signs of healing no granulation tissue noted On 2 L Hemodynamically stable S1, S2 Data 09/10/23 08:19 09/13/23 05:22 Micro: Microbiology 09/08/23 13:00 Gram Stain - Final Back Tissue Culture - Final Streptococcus Group C Strep anginosus group Klebsiella pneumoniae A&P Assessment and plan (1) Weakness: (2) Abdominal wall cellulitis: (3) ESRD (end stage renal disease): (4) Diabetes: (5) Seropositive rheumatoid arthritis: Plan Awaiting placement Group C streptococcus from sacral area, stage III ulcer currently on oral antibiotics We have applying Santyl to abdominal wall as well Abdominal wall cellulitis has not shown sign of granulation tissue I do anticipate it will take time to heal secondary to obesity and anatomy of abdominal pannus Patient will be due for dialysis on Tuesday Hemoglobin stable Attestations 2 Medical Necessity Statement*: Continue medical management Coding Level of Care Code Acute Code for g Fwd Diagnoses Weakness R53.1 Abdominal wall cellulitis L03.311 ESRD (end stage renal disease) N18.6 Diabetes E11.9 Seropositive rheumatoid arthritis M05.9
[2023-09-12] MEDS: metoprolol succinate ER (24 HR) 50 mg Tablet 25 MG PO (09:26)
[2023-09-12] MEDS: escitalopram 10 mg Tablet 40 MG PO (09:27)
[2023-09-12] MEDS: doxycycline 100 mg Tablet PO ×2 (09:28→18:24)
[2023-09-12] MEDS: sevelamer 800 mg Tablet 1600 MG PO ×3 (09:28→21:11)
[2023-09-12] MEDS: b-complex-vitamin c Tablet 1 EACH PO (09:28)
[2023-09-12] MEDS: amoxicillin-clav 875-125 mg Tablet 1 TAB PO ×2 (09:28→18:24)
[2023-09-12] MEDS: levothyroxine 50 mcg Tablet PO (09:28)
[2023-09-12] MEDS: collagenase oint 30 gm 1 APPLIC TOPICAL (09:31)
[2023-09-12] MEDS: bacitracin ointment Pkt 1 EACH TOPICAL ×2 (09:31→15:41)
[2023-09-12] MEDS: nystatin cream 30 gm 1 APPLIC TOPICAL ×2 (09:31→18:25)
[2023-09-12] MEDS: gabapentin 100 mg Capsule PO ×2 (09:36→18:24)
--- NOTE | 2023-09-12 11:02 | P.PN_ITS ---
Subjective 2 Subjective: Patient seen and examined. Pain controlled. She does have some pain at her sacral decubitus ulcer when she is lying directly on the wound Vitals/I&O/Wt Last Vital Signs Temp 97.8 F 09/14/23 07:27 Pulse 89 09/14/23 07:27 Resp 15 09/14/23 07:27 BP 139/84 09/14/23 09:39 Pulse Ox 98 09/14/23 07:27 O2 Del Method Nasal Cannula 09/14/23 07:27 O2 Flow Rate 2 09/13/23 20:00 09/13/23 09/14/23 09/14/23 22:59 06:59 14:59 Intake Total 480 / 720 0 / 720 240 / 240 Balance 480 / 720 0 / 720 240 / 240 Weight last 48 hrs Weight 161 lb Weight 167 lb 4 oz Weight 166 lb 6.4 oz Physical Exam 2 Narrative: General: No acute distress, awake alert and oriented x 3 Skin, grade 3 sacral decubitus ulcer without erythema or exudate Data 09/14/23 04:57 09/14/23 04:57 A&P Assessment and plan (1) Stage III pressure ulcer of sacral region: Plan Daily wet-to-dry dressing changes Medical management per hospitalist General surgery will sign off. Please reconsult if the need arises Attestations 2 Medical Necessity Statement*: Per primary Coding Level of Care Code 18652 Diagnoses Stage III pressure ulcer of sacral region L89.153
[2023-09-12 11:04] LABS: Glucose Point of Care 114 mg/dL (70-110)
[2023-09-12] MEDS: albumin 12.5 GM/50 ML VIAL IV (12:05)
[2023-09-12] MEDS: heparin 5,000 unit/mL INJ 1 mL 5000 UNIT SUBCUT (15:41)
[2023-09-12 16:56] LABS: Glucose Point of Care 182 mg/dL (70-110)
[2023-09-12] MEDS: morphine IR 15 mg Tablet PO (18:23)
[2023-09-12] MEDS: insulin lispro 100 unit/1 mL SUBCUT (18:25)
[2023-09-12] MEDS: ropinirole 0.25 mg Tablet 0.5 MG PO (21:11)
[2023-09-12] MEDS: diphenhydrAMINE 25 mg Capsule PO (21:11)
[2023-09-12] MEDS: atorvastatin 40 mg Tablet 80 MG PO (21:12)
[2023-09-12 21:27] LABS: Glucose Point of Care 58 mg/dL (70-110)
[2023-09-13] VITALS (11 sets, daily range): BP systolic 97–115; BP diastolic 47–69; PULSE 73–90; RESP 16–18; TEMP 36.4–37.3; O2SAT 96–100
[2023-09-13] MEDS: bacitracin ointment Pkt 1 EACH TOPICAL ×4 (00:26→20:51)
[2023-09-13] MEDS: heparin 5,000 unit/mL INJ 1 mL 5000 UNIT SUBCUT ×2 (02:30→15:53)
[2023-09-13 06:25] LABS: Alanine Aminotransferase 9 U/L (0-33); Albumin Level 2.7 g/dL (3.5-5.2); Alkaline Phosphatase 84 U/L (35-105); Anion Gap 13.5 (5-19); Aspartate Amino Transferase 19 U/L (0-32); Blood Urea Nitrogen 20 mg/dL (6-20); Calcium 8.7 mg/dL (8.5-10.5); Carbon Dioxide 28 mmol/L (22-29); Chloride 97 mmol/L (98-107); Globulin 3.5 g/dL (1.3-4.6); Glomerular Filtration Rate 13.4 mL/min (90-130); Glucose 80 mg/dL (65-115); Osmolality Calculated 280 mOsm/kg (285-295); Phosphorus 4.2 mg/dL (2.5-4.5); Potassium 4.5 mmol/L (3.5-5.1); Sodium 134 mmol/L (136-145); Total Bilirubin 0.3 mg/dL (0.15-1.2); Total Protein 6.2 g/dL (6.6-8.7)
[2023-09-13 06:27] LABS: Creatinine Clr Calc Pharmacy 15.9439
[2023-09-13 06:33] LABS: Glucose Point of Care 74 mg/dL (70-110)
[2023-09-13] MEDS: amoxicillin-clav 875-125 mg Tablet 1 TAB PO ×2 (08:23→17:18)
[2023-09-13] MEDS: sevelamer 800 mg Tablet 1600 MG PO (08:23)
[2023-09-13] MEDS: levothyroxine 50 mcg Tablet PO (08:23)
[2023-09-13] MEDS: escitalopram 10 mg Tablet 40 MG PO (08:23)
[2023-09-13] MEDS: b-complex-vitamin c Tablet 1 EACH PO (08:24)
[2023-09-13] MEDS: gabapentin 100 mg Capsule PO ×2 (08:24→17:18)
[2023-09-13] MEDS: nystatin cream 30 gm 1 APPLIC TOPICAL ×2 (08:24→17:18)
[2023-09-13] MEDS: collagenase oint 30 gm 1 APPLIC TOPICAL (08:24)
[2023-09-13] MEDS: doxycycline 100 mg Tablet PO ×2 (08:24→17:18)
--- NOTE | 2023-09-13 09:46 | P.PN_ITS ---
Subjective 2 Subjective: The patient was seen and examined. Patient is feeling better. Patient's wounds are improving. The patient has improved strength and is looking forward to going to rehab. She denies nausea vomiting fevers chills itching or cramps or diarrhea. Medications: Reviewed: Yes Medication Review Details: Current Medications Acetaminophen (Acetaminophen 325 Mg Tablet) 650 mg PO Q6H PRN PRN Reason: Mild/Mod Pain Or Temp >/= 101 Last Admin: 09/11/23 17:30 Dose: 650 mg Amoxicillin/Clavulanate Potassium (Amoxicillin-Clav 875-125 Mg Tablet) 1 tab PO BID [facility]; Protocol Last Admin: 09/13/23 08:23 Dose: 1 tab Atorvastatin Calcium (Atorvastatin 40 Mg Tablet) 80 mg PO BEDTIME [facility] Last Admin: 09/12/23 21:12 Dose: 80 mg Bacitracin (Bacitracin Ointment Pkt) 1 each TOPICAL TID [facility]; Protocol Last Admin: 09/13/23 08:25 Dose: 1 each Camphor/Menthol/Phenol (Blistex Lip Oint 7 Gm Tube) 1 applic TOPICAL PRN PRN PRN Reason: DRYNESS Last Admin: 09/09/23 03:41 Dose: 1 applic Carbidopa/Levodopa (Carbidopa-Levodopa 25-100mg Tablet) 0 each PO .COMPLEX [facility] Collagenase (Collagenase Oint 30 Gm) 1 applic TOPICAL DAILY [facility] Last Admin: 09/13/23 08:24 Dose: 1 applic Cyclobenzaprine HCl (Cyclobenzaprine 10 Mg Tablet) 10 mg PO Q8H PRN PRN Reason: MUSCLE SPASMS Last Admin: 09/11/23 08:41 Dose: 10 mg Diphenhydramine HCl (Diphenhydramine 25 Mg Capsule) 25 mg PO BEDTIME@2000 [facility] Last Admin: 09/12/23 21:11 Dose: 25 mg Doxycycline Monohydrate (Doxycycline 100 Mg Tablet) 100 mg PO BID [facility]; Protocol Last Admin: 09/13/23 08:24 Dose: 100 mg Escitalopram Oxalate (Escitalopram 10 Mg Tablet) 40 mg PO DAILY@0800 [facility] Last Admin: 09/13/23 08:23 Dose: 40 mg Gabapentin (Gabapentin 100 Mg Capsule) 100 mg PO BID [facility] Last Admin: 09/13/23 08:24 Dose: 100 mg Heparin Sodium (Porcine) (Heparin 5,000 Unit/Ml Inj 1 Ml) 5,000 unit SUBCUT Q12H [facility] Last Admin: 09/13/23 02:30 Dose: 5,000 unit Dextrose (D5w) 500 mls @ 0 mls/hr IV ONCE PRN; Protocol PRN Reason: Adult Acute Hypoglycemia Prot Dextrose (D10w) 125 mls @ 750 mls/hr IV PRN PRN; Protocol PRN Reason: Adult Acute Hypoglycemia Nursing Protocol Dextrose (D10w) 250 mls @ 1,000 mls/hr IV PRN PRN; Protocol PRN Reason: Adult Acute Hypoglycemia Nursing Protocol Sodium Chloride (Sodium Chloride 0.9%) 1,000 mls @ 0 mls/hr IV .Q0M PRN PRN Reason: hypotension or symptomatic Albumin Human (Albumin) 12.5 gm in 50 mls @ 60 mls/hr IV PRN PRN PRN Reason: Hypotension and/or symptomatic Last Infusion: 09/12/23 19:59 Dose: Infused Insulin Human Lispro (Insulin Lispro 100 Unit/1 Ml) 0 unit SUBCUT WM&BEDTIME [facility]; Protocol Last Admin: 09/13/23 08:25 Dose: Not Given Levothyroxine Sodium (Levothyroxine 50 Mcg Tablet) 50 mcg PO DAILY [facility] Last Admin: 09/13/23 08:23 Dose: 50 mcg Metoprolol Succinate (Metoprolol Succinate Er (24 Hr) 50 Mg Tablet) 25 mg PO DAILY [facility] Last Admin: 09/12/23 09:26 Dose: 25 mg Morphine Sulfate (Morphine Ir 15 Mg Tablet) 15 mg PO Q4H PRN PRN Reason: SEVERE PAIN Last Admin: 09/12/23 18:23 Dose: 15 mg Multivitamins (Q-Zwrshii-Scegvzl C Tablet) 1 each PO DAILY [facility] Last Admin: 09/13/23 08:24 Dose: 1 each Nystatin (Nystatin Cream 30 Gm) 1 applic TOPICAL BID [facility] Last Admin: 09/13/23 08:24 Dose: 1 applic Ondansetron HCl (Ondansetron 2 Mg/Ml Sdv 2 Ml) 4 mg IVP Q8H PRN PRN Reason: vomiting, or N/V if npo Ondansetron HCl (Ondansetron 4 Mg Tablet) 4 mg PO Q8H PRN PRN Reason: NAUSEA Ropinirole HCl (Ropinirole 0.25 Mg Tablet) 0.5 mg PO DAILY@1999 [facility] Last Admin: 09/12/23 21:11 Dose: 0.5 mg Sevelamer Carbonate (Sevelamer 800 Mg Tablet) 1,600 mg PO TID [facility] Last Admin: 09/13/23 08:23 Dose: 1,600 mg Vitals/I&O/Wt Last Vital Signs Temp 97.7 F 09/13/23 07:25 Pulse 73 09/13/23 07:25 Resp 16 09/13/23 07:25 BP 98/60 09/13/23 07:25 Pulse Ox 97 09/13/23 07:25 O2 Del Method Nasal Cannula 09/13/23 07:25 O2 Flow Rate 2 09/13/23 07:25 09/12/23 09/13/23 09/13/23 22:59 06:59 14:59 Intake Total 840 / 860 Output Total 432 / 432 Balance 408 / 428 Weight last 48 hrs Weight 75.863 kg Weight 75.478 kg Weight 61.263 kg Physical Exam 2 Narrative: obese, comfortable in bed, NARD VS noted blood pressure little low. heent- nc/at, eomi neck supple lungs good air movement b/l heart reg +s1, s2, +RAMA abd soft, + bs, nt, nd ext RUE AVF w/ thrill and bruit left arm broken 1+ leg edema neuro- awake, alert bandage on decubitus ulcer skin pannus cellulitis, breakdown per nurse telehealth visit- with RN Data 09/10/23 08:19 09/13/23 05:22 Micro: Microbiology 09/08/23 13:00 Gram Stain - Final Back Tissue Culture - Final Streptococcus Group C Strep anginosus group Klebsiella pneumoniae A&P Assessment and plan (1) ESRD (end stage renal disease): 57 yr old female w/ weakness, anemia, and Left humeral fracture. 1. anemia- ferritin >99293- -no iv iron give epo -hgb improved s/p 1 unit prbc transfusion. Consider repeating CBC. 2. ESRD- She has ESRD since 2018 from htn, dm, obesity - cont MWF-status post hemodialysis yesterday 3. hypothyroidism- normal tsh on levothyroxine 4. IDDM - monitor for hypoglycemia 5. htn- bp low 6. hyponatremia-improved w/ hd. 7. cellulitis - renal dose abx s/p I and D of decubitus ulcer 09/08/23 8. renal bone mineral metabolism- pth 336 vit d level 31 - phos improving on binder seen and examined w/ rN- telehealth visit informed consent for telehealth obtained from pt Plan see above. Awaiting rehab placement. Plan for hemodialysis tomorrow can be as an in or outpatient. Attestations 2 Medical Necessity Statement*: ESRD, weakness inability to ambulate on her own. Anemia. Time Spent in Patient Care: 16 - 35 minutes Coding Level of Care Code Acute Code for Chg Fwd Diagnoses ESRD (end stage renal disease) N18.6
--- NOTE | 2023-09-13 09:53 | PC.CHAP ---
Pastoral Care Encounter/Spiritual Assessment Type of Contact [] Declined senior network administrator visit [] Patient/Family/Request visit [] Outpatient visit [] Follow-up visit [] Physician referral [] Code/Alert [x] Routine visit [] Staff referral [] Actively dying [] Patient sleeping [] Family support [] [] Out of room [] Palliative care [] [] Receiving care in room [] Pre-surgical visit [] Trauma [] Long length of stay [] ICU visit [] Other: Relational/Emotional Strength [x] Patient feels connected with others/family/visitors/staff [] Distress [] Loneliness/isolation [] Abandonment Spirituality of Patient [x] Person of Sabina [] Attends Roman Catholic of their [place] [x] Believes in Prayer [] Reads Bible or Pentecostalism materials [] There are Spiritual issues to be addressed Supplier Specialist Interventions [x] Prayer [x] Active listening [] Non-anxious presence [x] Spiritual/emotional support [] Crisis/trauma care [] Spiritual counseling [] Bereavement support [] Provided bereavement packet [] Provided Bible/devotional materials [] Provided toy/stuffed animal, coloring book to patient or family member [] Provided Communion [] Anointing/[place] [] Salvation [x] Completed spiritual assessment [] Other: Impact on Illness or Injury [] Angry [] Fearful [] Anxious [] Often cries [] Exhaustion [] Unable to work [] Unable to attend orthodoxy [] Unable to walk/stand [] Unable to read [] Unable to drive [] Unable to eat/drink [] Unable to sleep [] Unable to be with family [] Patient intubated [] Other: Summary Time spent with patient 5 min
[2023-09-13 11:04] LABS: Glucose Point of Care 86 mg/dL (70-110)
--- NOTE | 2023-09-13 12:25 | P.PN_ITS ---
Subjective 2 Subjective: Awaiting placement Vitals/I&O/Wt Last Vital Signs Temp 97.6 F 09/13/23 10:55 Pulse 80 09/13/23 10:55 Resp 16 09/13/23 10:55 BP 114/59 09/13/23 10:55 Pulse Ox 99 09/13/23 10:55 O2 Del Method Nasal Cannula 09/13/23 10:55 O2 Flow Rate 2 09/13/23 10:55 09/12/23 09/13/23 09/13/23 22:59 06:59 14:59 Intake Total 840 / 860 Output Total 432 / 432 Balance 408 / 428 Weight last 48 hrs Weight 75.863 kg Weight 75.478 kg Weight 61.263 kg Physical Exam 2 Narrative: Awake and alert Euvolemic GCS 15 Wet-to-dry dressing sacral area Abdominal cellulitis without significant signs of healing no granulation tissue noted On 2 L Hemodynamically stable S1, S2 Data 09/10/23 08:19 09/13/23 05:22 Micro: Microbiology 09/08/23 13:00 Gram Stain - Final Back Tissue Culture - Final Streptococcus Group C Strep anginosus group Klebsiella pneumoniae A&P Assessment and plan (1) Rash: (2) Weakness: (3) Abdominal wall cellulitis: (4) ESRD (end stage renal disease): (5) Stage III pressure ulcer of sacral region: (6) Diabetes: (7) Hypertension: Plan SHe is due for dialysis by tomorrow Continue oral antibiotics Blood pressure was low this morning Holding off on antihypertensive regimen Santyl application abdominal wall for cellulitis and wet-to-dry dressing for sacral area stage III ulcer Full code Renal dialysis diet Attestations 2 Medical Necessity Statement*: Continue medical management Diagnoses Rash R21 Weakness R53.1 Abdominal wall cellulitis L03.311 ESRD (end stage renal disease) N18.6 Stage III pressure ulcer of sacral region L89.153 Diabetes E11.9 Hypertension I10
[2023-09-13] MEDS: morphine IR 15 mg Tablet PO ×2 (13:06→17:40)
[2023-09-13] MEDS: sevelamer 800 mg Tablet PO ×2 (15:54→20:51)
[2023-09-13 16:29] LABS: Glucose Point of Care 84 mg/dL (70-110)
[2023-09-13 20:29] LABS: Glucose Point of Care 131 mg/dL (70-110)
[2023-09-13] MEDS: ropinirole 0.25 mg Tablet 0.5 MG PO (20:51)
[2023-09-13] MEDS: atorvastatin 40 mg Tablet 80 MG PO (20:51)
[2023-09-13] MEDS: diphenhydrAMINE 25 mg Capsule PO (20:51)
[2023-09-14] VITALS (8 sets, daily range): BP systolic 89–146; BP diastolic 50–84; PULSE 59–105; RESP 15–18; TEMP 36.5–37.1; O2SAT 92–99
[2023-09-14] MEDS: heparin 5,000 unit/mL INJ 1 mL 5000 UNIT SUBCUT ×2 (02:52→16:51)
[2023-09-14 05:12] LABS: Hematocrit 31.2 % (36-47); Lymphocytes # 0.9 10^3/uL (0.8-4.8); Lymphocytes % 11.7 %; Mean Corpuscular HGB Conc 30.4 g/dL (30-55); Mean Corpuscular Hemoglobin 30.2 pg (27-33); Mean Platelet Volume 9.4 fL (7.4-10.4); Monocytes # 0.8 10^3/uL (0.2-0.9); Monocytes % 9.7 %; Neutrophils # 6.06 10^3/uL (1.8-7.7); Neutrophils % 78.1 %; Nucleated Red Blood Cells % 0 %; Platelet Count 345 10^3/cmm (157-399); Red Blood Count 3.15 10^6/uL (3.85-5.65); Red Cell Distribution Width 14.7 % (12.1-15.1); White Blood Count 7.76 10^3/uL (3.29-11.43)
[2023-09-14 05:34] LABS: Alanine Aminotransferase 10 U/L (0-33); Albumin Level 2.8 g/dL (3.5-5.2); Alkaline Phosphatase 97 U/L (35-105); Anion Gap 15.8 (5-19); Aspartate Amino Transferase 21 U/L (0-32); Blood Urea Nitrogen 29 mg/dL (6-20); Calcium 8.9 mg/dL (8.5-10.5); Carbon Dioxide 27 mmol/L (22-29); Chloride 96 mmol/L (98-107); Creatinine Clr Calc Pharmacy 11.8926; Globulin 3.7 g/dL (1.3-4.6); Glomerular Filtration Rate 9.8 mL/min (90-130); Glucose 81 mg/dL (65-115); Osmolality Calculated 283 mOsm/kg (285-295); Phosphorus 4.8 mg/dL (2.5-4.5); Potassium 4.8 mmol/L (3.5-5.1); Sodium 134 mmol/L (136-145); Total Bilirubin 0.3 mg/dL (0.15-1.2); Total Protein 6.5 g/dL (6.6-8.7)
[2023-09-14 06:38] LABS: Glucose Point of Care 90 mg/dL (70-110)
--- NOTE | 2023-09-14 07:26 | P.PN_ITS ---
Subjective 2 Subjective: Overnight events noted. The patient was very lethargic overnight. The patient is now awakening. Her blood pressure remains low. She has some swelling. She has skin breakdown under her breast. He has a sacral decubitus that was I&D. And she has abdominal wall cellulitis. Medications: Reviewed: Yes Medication Review Details: Current Medications Acetaminophen (Acetaminophen 325 Mg Tablet) 650 mg PO Q6H PRN PRN Reason: Mild/Mod Pain Or Temp >/= 101 Last Admin: 09/11/23 17:30 Dose: 650 mg Amoxicillin/Clavulanate Potassium (Amoxicillin-Clav 875-125 Mg Tablet) 1 tab PO BID [facility]; Protocol Last Admin: 09/13/23 17:18 Dose: 1 tab Atorvastatin Calcium (Atorvastatin 40 Mg Tablet) 80 mg PO BEDTIME [facility] Last Admin: 09/13/23 20:51 Dose: 80 mg Bacitracin (Bacitracin Ointment Pkt) 1 each TOPICAL TID [facility]; Protocol Last Admin: 09/13/23 20:51 Dose: 1 each Camphor/Menthol/Phenol (Blistex Lip Oint 7 Gm Tube) 1 applic TOPICAL PRN PRN PRN Reason: DRYNESS Last Admin: 09/09/23 03:41 Dose: 1 applic Carbidopa/Levodopa (Carbidopa-Levodopa 25-100mg Tablet) 0 each PO .COMPLEX [facility] Collagenase (Collagenase Oint 30 Gm) 1 applic TOPICAL DAILY [facility] Last Admin: 09/13/23 08:24 Dose: 1 applic Cyclobenzaprine HCl (Cyclobenzaprine 10 Mg Tablet) 10 mg PO Q8H PRN PRN Reason: MUSCLE SPASMS Last Admin: 09/11/23 08:41 Dose: 10 mg Diphenhydramine HCl (Diphenhydramine 25 Mg Capsule) 25 mg PO BEDTIME@2000 [facility] Last Admin: 09/13/23 20:51 Dose: 25 mg Doxycycline Monohydrate (Doxycycline 100 Mg Tablet) 100 mg PO BID [facility]; Protocol Last Admin: 09/13/23 17:18 Dose: 100 mg Escitalopram Oxalate (Escitalopram 10 Mg Tablet) 40 mg PO DAILY@0800 [facility] Last Admin: 09/13/23 08:23 Dose: 40 mg Gabapentin (Gabapentin 100 Mg Capsule) 100 mg PO BID [facility] Last Admin: 09/13/23 17:18 Dose: 100 mg Heparin Sodium (Porcine) (Heparin 5,000 Unit/Ml Inj 1 Ml) 5,000 unit SUBCUT Q12H [facility] Last Admin: 09/14/23 02:52 Dose: 5,000 unit Dextrose (D5w) 500 mls @ 0 mls/hr IV ONCE PRN; Protocol PRN Reason: Adult Acute Hypoglycemia Prot Dextrose (D10w) 125 mls @ 750 mls/hr IV PRN PRN; Protocol PRN Reason: Adult Acute Hypoglycemia Nursing Protocol Dextrose (D10w) 250 mls @ 1,000 mls/hr IV PRN PRN; Protocol PRN Reason: Adult Acute Hypoglycemia Nursing Protocol Sodium Chloride (Sodium Chloride 0.9%) 1,000 mls @ 0 mls/hr IV .Q0M PRN PRN Reason: hypotension or symptomatic Albumin Human (Albumin) 12.5 gm in 50 mls @ 60 mls/hr IV PRN PRN PRN Reason: Hypotension and/or symptomatic Last Infusion: 09/12/23 19:59 Dose: Infused Insulin Human Lispro (Insulin Lispro 100 Unit/1 Ml) 0 unit SUBCUT WM&BEDTIME [facility]; Protocol Last Admin: 09/13/23 20:52 Dose: Not Given Levothyroxine Sodium (Levothyroxine 50 Mcg Tablet) 50 mcg PO DAILY [facility] Last Admin: 09/13/23 08:23 Dose: 50 mcg Metoprolol Succinate (Metoprolol Succinate Er (24 Hr) 50 Mg Tablet) 25 mg PO DAILY [facility] Last Admin: 09/13/23 10:25 Dose: Not Given Morphine Sulfate (Morphine Ir 15 Mg Tablet) 15 mg PO Q4H PRN PRN Reason: SEVERE PAIN Last Admin: 09/13/23 17:40 Dose: 15 mg Multivitamins (A-Xkfsuxn-Vtcyyma C Tablet) 1 each PO DAILY [facility] Last Admin: 09/13/23 08:24 Dose: 1 each Nystatin (Nystatin Cream 30 Gm) 1 applic TOPICAL BID [facility] Last Admin: 09/13/23 17:18 Dose: 1 applic Ondansetron HCl (Ondansetron 2 Mg/Ml Sdv 2 Ml) 4 mg IVP Q8H PRN PRN Reason: vomiting, or N/V if npo Ondansetron HCl (Ondansetron 4 Mg Tablet) 4 mg PO Q8H PRN PRN Reason: NAUSEA Ropinirole HCl (Ropinirole 0.25 Mg Tablet) 0.5 mg PO DAILY@1999 [facility] Last Admin: 09/13/23 20:51 Dose: 0.5 mg Sevelamer Carbonate (Sevelamer 800 Mg Tablet) 800 mg PO TID [facility] Last Admin: 09/13/23 20:51 Dose: 800 mg Vitals/I&O/Wt Last Vital Signs Temp 98.7 F 09/14/23 04:00 Pulse 94 09/14/23 05:47 Resp 18 09/14/23 04:00 BP 146/70 09/14/23 04:00 Pulse Ox 99 09/14/23 04:00 O2 Del Method Nasal Cannula 09/13/23 16:20 O2 Flow Rate 2 09/13/23 20:00 09/13/23 09/14/23 09/14/23 22:59 06:59 14:59 Intake Total 480 / 720 0 / 720 Balance 480 / 720 0 / 720 Weight last 48 hrs Weight 73.028 kg Weight 75.863 kg Weight 75.478 kg Physical Exam 2 Narrative: obese, comfortable in bed, lethargic, NARD VS noted, blood pressure is low. heent- nc/at, eomi neck supple lungs good air movement b/l heart reg +s1, s2, +RAMA abd soft, + bs, nt, nd ext RUE AVF w/ thrill and bruit left arm broken 1+ leg edema neuro- awake, lethargic. However awakens and answers appropriately she is oriented. bandage on decubitus ulcer skin pannus cellulitis, breakdown under breasts and in pelvic folds as per nurse telehealth visit- with RN Data 09/14/23 04:57 09/14/23 04:57 A&P Assessment and plan (1) ESRD (end stage renal disease): 57 yr old female w/ weakness, anemia, and Left humeral fracture. 1. anemia- ferritin >03694- -no iv iron give epo -hgb improved s/p 1 unit prbc transfusion. 2. ESRD- She has ESRD since 2018 from htn, dm, obesity -Blood pressure is low today. She has no emergent need for dialysis. Will decrease medications and reassess for dialysis tomorrow, September 14. 3. hypothyroidism- normal tsh on levothyroxine 4. IDDM - monitor for hypoglycemia 5. htn- bp low. Hold sedatives. Assess for infection though no leukocytosis -i help morphine, gabapentin, and metoprolol- hopefully she will wake up 6. hyponatremia-improved w/ hd. 7. cellulitis - renal dose abx s/p I and D of decubitus ulcer 09/08/23 8. renal bone mineral metabolism- pth 336 vit d level 31 - phos stable on binder seen and examined w/ rN- telehealth visit informed consent for telehealth obtained from pt Plan see above. lethargy and hypotension- review meds. assess for sepsis. defer dialysis till tomorrow Attestations 2 Medical Necessity Statement*: esrd, infection, AMS, hypotension Time Spent in Patient Care: Greater than 35 minutes Coding Level of Care Code Acute Code for [facility] Diagnoses ESRD (end stage renal disease) N18.6
[2023-09-14] MEDS: escitalopram 10 mg Tablet 40 MG PO (08:40)
[2023-09-14] MEDS: b-complex-vitamin c Tablet 1 EACH PO (08:41)
[2023-09-14] MEDS: bacitracin ointment Pkt 1 EACH TOPICAL ×2 (08:41→16:52)
[2023-09-14] MEDS: levothyroxine 50 mcg Tablet PO (08:41)
[2023-09-14] MEDS: sevelamer 800 mg Tablet PO ×2 (08:41→16:51)
[2023-09-14] MEDS: doxycycline 100 mg Tablet PO ×2 (08:41→16:52)
[2023-09-14] MEDS: amoxicillin-clav 875-125 mg Tablet 1 TAB PO ×2 (08:41→16:51)
[2023-09-14] MEDS: collagenase oint 30 gm 1 APPLIC TOPICAL (08:42)
[2023-09-14] MEDS: nystatin cream 30 gm 1 APPLIC TOPICAL ×2 (08:42→16:52)
[2023-09-14 10:53] LABS: Glucose Point of Care 93 mg/dL (70-110)
--- NOTE | 2023-09-14 11:49 | PM.PN ---
Subjective Subjective: Patient is getting her dressing at the wound changed, there is no active sign of purulence, granulation tissue seen at the abdominal wall, sacral wound looks clean no active drainage Patient not complaining of pain other than when we change the dressing Her blood pressure when taken on left arm was better 139/84 mmHg Vitals/I&O/Wt Last Vital Signs Temp 97.7 F 09/14/23 11:39 Pulse 105 H 09/14/23 11:39 Resp 16 09/14/23 11:39 BP 112/66 09/14/23 11:39 Pulse Ox 92 09/14/23 11:39 O2 Del Method Room Air 09/14/23 11:39 O2 Flow Rate 2 09/13/23 20:00 09/13/23 09/14/23 09/14/23 22:59 06:59 14:59 Intake Total 480 / 720 0 / 720 240 / 240 Balance 480 / 720 0 / 720 240 / 240 Weight last 48 hrs Weight 73.028 kg Weight 75.863 kg Weight 75.478 kg Physical Exam Narrative: Patient is awake and alert GCS 15 Euvolemic Currently movement Sacral wound clean no active drainage Abdominal wall cellulitis no active worsening I could see some granulation tissue S1, S2 Data 09/14/23 04:57 09/14/23 04:57 A&P Assessment and plan (1) Diabetes: (2) Insulin dependent type 2 diabetes mellitus: (3) Failure to thrive: (4) ESRD (end stage renal disease): (5) Abdominal wall cellulitis: (6) Seropositive rheumatoid arthritis: (7) Rash: (8) Weakness: (9) Stage III pressure ulcer of sacral region: Plan Patient is due for dialysis today I would not change any of her medications today She is waiting for [place] [facility] Santyl being applied on abdominal wall sign of granulation tissue signs of healing present Sacral area wound is dry no active drainage No need of wound VAC as of now Continue oral antibiotics Sinus tachycardia Patient is not hypotensive, blood pressure taken on left arm shows normotensive blood pressure Attestations Medical Necessity Statement*: Awaiting placement Diagnoses Diabetes E11.9 Insulin dependent type 2 diabetes mellitus E11.9; Z79.4 Failure to thrive ESRD (end stage renal disease) N18.6 Abdominal wall cellulitis L03.311 Seropositive rheumatoid arthritis M05.9 Rash R21 Weakness R53.1 Stage III pressure ulcer of sacral region L89.153
--- NOTE | 2023-09-14 15:34 | P.DS_ITS ---
Discharge Providers Date of Admission: 09/05/23 20:35 Date of Discharge: September 14, 2023 Attending Provider at Admission: Fernando Garcia MD Attending Provider at Discharge: Jigar Flanagan MD Primary Care Provider: Vivienne Schulz MD Diagnoses at Discharge Discharge Diagnosis (1) Diabetes: Status: Acute (2) Insulin dependent type 2 diabetes mellitus: Status: Acute (3) Failure to thrive: Status: Acute (4) ESRD (end stage renal disease): Status: Acute (5) Abdominal wall cellulitis: Status: Acute (6) Seropositive rheumatoid arthritis: Status: Acute (7) Rash: Status: Acute (8) Weakness: Status: Acute (9) Stage III pressure ulcer of sacral region: Status: Acute Reason for Visit Reason for Visit: lt shoulder pain Hospital Course Hospital Course 57-year-old female with history of cognitive impairment, has a caregiver at home, presented with failure to thrive, she is a end-stage renal disease patient who gets dialysis Tuesday, during hospitalization we noticed she has stage III sacral ulcer, surgery was consulted for debridement, she went for surgical debridement on 09/[address] Adams, Wound measures 2.5 x 2.3 x 1.4 cm. She also has abdominal wall cellulitis with significant intertrigo without sign of progressive cellulitis or necrotizing fasciitis, she was put on Augmentin, doxycycline along Santyl topical dressing, she is getting wet-to-dry dressing for sacral ulcer. Patient was very happy with the progress in the hospital, we are discharging her to [facility] because significant nursing care that she needs, caregiver at home is not very able to provide care to this extent. Patient uses 2 L of oxygen intermittently however at home uses 2 L at night. She remained hemodynamically stable, sacral wound culture showed Streptococcus, blood cultures negative, Physical Exam Narrative: Patient is awake and alert GCS 15 Euvolemic Currently movement Sacral wound clean no active drainage Abdominal wall cellulitis no active worsening I could see some granulation tissue S1, S2 Discharge Data Studies Completed and Pending Completed Studies During Hospitalization Category Date Time Status CT lumbar spine wo con* [id number] Stat Cat Scan 09/05/23 16:[address] pelvis wo con [id number] Stat Cat Scan 09/05/23 16:20 Completed XR shoulder LT min 2V* [id number] Routine Exams 09/07/23 13:43 Completed XR shoulder LT min 2V* [id number] Stat Exams 09/05/23 16:21 Completed Pending at discharge Category Date Time Status Complete Blood Count w/Auto AM LABS Lab 09/15/23 04:00 Ordered Complete Blood Count w/Auto AM LABS Lab 09/15/23 04:00 Ordered Complete Blood Count w/Auto AM LABS Lab 09/16/23 04:00 Ordered Complete Blood Count w/Auto AM LABS Lab 09/16/23 04:00 Ordered Complete Blood Count w/Auto AM LABS Lab 09/17/23 04:00 Ordered Comprehensive Metabolic Panel AM LABS Lab 09/15/23 04:00 Ordered Comprehensive Metabolic Panel AM LABS Lab 09/16/23 04:00 Ordered Comprehensive Metabolic Panel AM LABS Lab 09/17/23 04:00 Ordered Magnesium AM LABS Lab 09/15/23 04:00 Ordered Magnesium AM LABS Lab 09/16/23 04:00 Ordered Magnesium AM LABS Lab 09/17/23 04:00 Ordered Phosphorus AM LABS Lab 09/15/23 04:00 Ordered Phosphorus AM LABS Lab 09/16/23 04:00 Ordered Phosphorus AM LABS Lab 09/17/23 04:00 Ordered Radiology Impressions Lumbar Spine CT 09/05/23 16:20 IMPRESSION: 1. No evidence of acute fracture or dislocation. 2. Moderate degenerative change of the lower lumbar spine. Pelvis CT 09/05/23 16:20 IMPRESSION: 1. No definitive evidence of acute fracture or dislocation. 2. Mild irregularity of the distal coccygeal element may be a chronic finding. Minimally displaced coccygeal fracture not excluded based on this appearance. 3. Degenerative changes of the hips. Laboratory Results WBC 7.76 10^3/uL (3.29-11.43) 09/14/23 04:57 Corrected WBC Cancelled 09/07/23 17:00 RBC 3.15 10^6/uL (3.85-5.65) L 09/14/23 04:57 Hgb 9.50 g/dL (11.27-16.99) L 09/14/23 04:57 Hct 31.2 % (36-47) L 09/14/23 04:57 MCV 99.0 fl (85-98) H 09/14/23 04:57 MCH 30.2 pg (27-33) 09/14/23 04:57 MCHC 30.4 g/dL (30-55) 09/14/23 04:57 RDW 14.7 % (12.1-15.1) 09/14/23 04:57 Plt Count 345 10^3/cmm (157-399) 09/14/23 04:57 MPV 9.4 fL (7.4-10.4) 09/14/23 04:57 Gran % Cancelled 09/07/23 17:00 Neut % (Auto) 78.1 % 09/14/23 04:57 Lymph % (Auto) 11.7 % 09/14/23 04:57 Preston % (Auto) 9.7 % 09/14/23 04:57 Eos % (Auto) 0.0 % 09/14/23 04:57 Baso % (Auto) 0.0 % 09/14/23 04:57 Neut # (Auto) 6.06 10^3/uL (1.8-7.7) 09/14/23 04:57 Lymph # (Auto) 0.9 10^3/uL (0.8-4.8) 09/14/23 04:57 Preston # (Auto) 0.8 10^3/uL (0.2-0.9) 09/14/23 04:57 Eos # (Auto) 0.0 10^3/uL (0.0-0.8) 09/14/23 04:57 Baso # (Auto) 0.0 10^3/uL (0.0-0.1) 09/14/23 04:57 Absolute Gran (auto) Cancelled 09/07/23 17:00 Nucleated RBC % (auto) 0 % 09/14/23 04:57 Nucleated RBCs # 0.0 /100WBC 09/14/23 04:57 Sodium 134 mmol/L (136-145) L 09/14/23 04:57 Potassium 4.8 mmol/L (3.5-5.1) 09/14/23 04:57 Chloride 96 mmol/L (98-107) L 09/14/23 04:57 Carbon Dioxide 27 mmol/L (22-29) 09/14/23 04:57 Anion Gap 15.8 (5-19) 09/14/23 04:57 BUN 29 mg/dL (6-20) H 09/14/23 04:57 Creatinine 4.6 mg/dL (0.5-0.9) H 09/14/23 04:57 GFR Calculation 9.8 mL/min (90-130) L 09/14/23 04:57 Glucose 81 mg/dL (65-115) 09/14/23 04:57 POC Glucose 93 mg/dL (70-110) 09/14/23 10:49 Calculated Osmolality 283 mOsm/kg (285-295) L 09/14/23 04:57 Uric Acid 7.0 mg/dL (2.4-5.7) H 09/05/23 17:07 Calcium 8.9 mg/dL (8.5-10.5) 09/14/23 04:57 Phosphorus 4.8 mg/dL (2.5-4.5) H 09/14/23 04:57 Magnesium 2.0 mg/dL (1.7-2.3) 09/14/23 04:57 Iron 43 ug/dL (37-145) 09/06/23 04:19 TIBC 169 mcg/dl 09/06/23 04:19 % Saturation 25.4 % (20-50) 09/06/23 04:19 Unsat Iron Binding 126 ug/dL (112-347) 09/06/23 04:19 Ferritin > 35630 ng/mL (15-150) H 09/06/23 04:19 Total Bilirubin 0.3 mg/dL (0.15-1.2) 09/14/23 04:57 AST 21 U/L (0-32) 09/14/23 04:57 ALT 10 U/L (0-33) 09/14/23 04:57 Alkaline Phosphatase 97 U/L (35-105) 09/14/23 04:57 Total Protein 6.5 g/dL (6.6-8.7) L 09/14/23 04:57 Albumin 2.8 g/dL (3.5-5.2) L 09/14/23 04:57 Globulin 3.7 g/dL (1.3-4.6) 09/14/23 04:57 25-OH Vitamin D Total 31 ng/mL (30-100) 09/06/23 04:19 25-OH Vitamin D Total 32 ng/mL (30-100) 09/06/23 04:19 TSH 2.34 uIU/mL (0.27-4.20) 09/06/23 04:19 PTH Intact 336.4 pg/mL (15-65) H 09/06/23 04:19 Calcium (PTH Intact) 7.3 mg/dL (8.5-10.5) L 09/06/23 04:19 Hep Bs Antigen Non-reactive (Nonreactive) 09/05/23 04:19 Hep Bs Antibody 128.1 (11.5-1000) 09/05/23 04:19 Hepatitis C Antibody Non-reactive (Nonreactive) 09/05/23 04:19 Blood Type A Positive 09/07/23 09:44 Rho(D) Type Rh positive 09/07/23 09:44 Antibody Screen Negative 09/07/23 09:44 Crossmatch See Detail 09/07/23 09:44 Vitals Last Vital Signs Temp 97.7 F 09/14/23 11:39 Pulse 105 H 09/14/23 11:39 Resp 16 09/14/23 11:39 BP 112/66 09/14/23 11:39 Pulse Ox 92 09/14/23 11:39 O2 Del Method Room Air 09/14/23 11:39 O2 Flow Rate 2 09/13/23 20:00 Discharge Plan Discharge Patient Disposition: Xfer SNF Condition: Stable Prescriptions: New amoxicillin-pot clavulanate 875-125 mg Tablet 1 tab PO BID Qty: 10 0RF doxycycline monohydrate 100 mg Tablet 100 mg PO BID Qty: 10 0RF Santyl 250 unit/gram Ointment 1 applic topical DAILY Qty: 30 0RF Rx Instructions: Twice daily daily Continued escitalopram oxalate [Lexapro] 20 mg tablet 40 mg PO DAILY@0800 RenaPlex-D 800 mcg-12.5 mg -2,000 unit tablet 1 tab PO DAILY@2000 (DME) Dexcom G6 [employer] Misc See Rx Instructions .Route Qty: 1 0RF Rx Instructions: Check BS continuously (DME) Dexcom G6 Sensor Device See Rx Instructions .Route Qty: 9 3RF Rx Instructions: Change every 10 days. gabapentin 100 mg capsule 100 mg PO TID Qty: 90 4RF (DME) Dexcom G6 Transmitter Device See Rx Instructions .Route Qty: 3 3RF Rx Instructions: Change every 90 days. Glucagon Emergency Kit (human) 1 mg recon soln 1 mg SUBCUT Q20M PRN (Reason: hypoglycemia) Qty: 1 3RF Rx Instructions: until target blood sugar attained amlodipine [Norvasc] 2.5 mg tablet 2.5 mg PO DAILY carbidopa-levodopa 25-100 mg tablet See Rx Instructions .ROUTE .COMPLEX Rx Instructions: 0.5 tab orally BEFORE DIALYSIS Auryxia 210 mg iron tablet 630 mg PO TID@08,12,20 Rx Instructions: TAKE WITH MEALS ropinirole 0.5 mg tablet 0.5 mg PO DAILY@1999 clopidogrel 75 mg tablet 75 mg PO DAILY Qty: 30 0RF atorvastatin 80 mg tablet 80 mg PO DAILY metoprolol succinate 50 mg tablet extended release 24 hr 50 mg PO DAILY levothyroxine 50 mcg tablet 50 mcg PO DAILY rosuvastatin 20 mg tablet 20 mg PO BEDTIME mupirocin 2 % ointment 1 applic topical TID PRN (Reason: Skin Irritation) cyclobenzaprine 10 mg tablet 10 mg PO Q8H PRN (Reason: MUSCLE SPASMS) Qty: 14 0RF Discontinued diphenhydramine HCl [Benadryl] 25 mg Capsule 25 mg PO BEDTIME@1999 prednisone 5 mg tablet 5 mg PO DAILY PRN (Reason: Allergic Reaction) hydromorphone [Dilaudid] 2 mg tablet 2 mg PO Q8H PRN (Reason: pain) Qty: 10 0RF Discharge Orders: Discharge Order (Routine); Ordered 09/14/23 Ordered By: Zelda Parr Referrals: [facility] [Outside] Vivienne Schulz MD [Primary Care Provider] - 09/20/23 9:30 am (This appointment is scheduled with Sydni Levin. ) Patient Instructions: Doxycycline (By mouth), Amoxicillin/Clavulanate Potassium (By mouth), Collagenase (On the skin), Dialysis Diet (DC), Hemodialysis (DC) Activity Restrictions/Additional Instructions: Sacral: WetSacral: Wet-to-dry dressings with 4 x 4 gauze Abdomen: Daily dry dressings with Santyl applied to midline scab unico-ft-xsc dressings with 4 x 4 gauze Discharge Attestations Time Spent in Discharge Care*: greater than 30 min Status at Discharge: Cognitive status at discharge: cognitively intact , Behavioral status at discharge: cooperative , Quality Metrics Clinical Quality Measures [ No reported AMI, CVA or VTE this stay] Coding Level of Care Code Acute Code for [facility] Diagnoses Diabetes E11.9 Insulin dependent type 2 diabetes mellitus E11.9; Z79.4 Failure to thrive ESRD (end stage renal disease) N18.6 Abdominal wall cellulitis L03.311 Seropositive rheumatoid arthritis M05.9 Rash R21 Weakness R53.1 Stage III pressure ulcer of sacral region L89.153
[2023-09-14] MEDS: cyclobenzaprine 10 mg Tablet PO (16:52)
[2023-09-14] MEDS: acetaminophen 325 mg Tablet 650 MG PO (16:52)
[2023-09-14 17:09] LABS: Glucose Point of Care 111 mg/dL (70-110)
== END 2023-09-14 19:41 | disposition skilled nursing facility (03) ==
LOC: ER 18:10 → MEDSURG 19:14
PROVIDERS: Internal Medicine Nephrology; Surgery; Admitting Provider Internal Medicine; Emergency Provider Emergency Medicine; PCP Internal Medicine; Visit Provider Internal Medicine
PROC: (CPT 11043; principal; 2023-09-08 16:00)
DX: L89.153 Pressure ulcer of sacral region, stage 3 (principal); E11.622 Type 2 diabetes mellitus with other skin ulcer; R62.7 Adult failure to thrive; Z68.31 Body mass index [BMI] 31.0-31.9, adult; E11.22 Type 2 diabetes mellitus with diabetic chronic kidney disease; I12.9 Hypertensive chronic kidney disease with stage 1 through stage 4 chronic kidney disease, or unspecified chronic kidney disease; N18.6 End stage renal disease; Z99.2 Dependence on renal dialysis; L03.311 Cellulitis of abdominal wall; M05.9 Rheumatoid arthritis with rheumatoid factor, unspecified; R21 Rash and other nonspecific skin eruption; R53.1 Weakness; Z75.1 Person awaiting admission to adequate facility elsewhere; E03.9 Hypothyroidism, unspecified; E87.1 Hypo-osmolality and hyponatremia; L03.90 Cellulitis, unspecified; B95.4 Other streptococcus as the cause of diseases classified elsewhere; Z79.4 Long term (current) use of insulin; S42.302A Unspecified fracture of shaft of humerus, left arm, initial encounter for closed fracture; S42.292A Other displaced fracture of upper end of left humerus, initial encounter for closed fracture; S42.255A Nondisplaced fracture of greater tuberosity of left humerus, initial encounter for closed fracture; X58.XXXA Exposure to other specified factors, initial encounter; M47.9 Spondylosis, unspecified; E66.01 Morbid (severe) obesity due to excess calories
CPT/HCPCS: 11043; 36415; 36416; 36430; 70450; 72131; 72192; 73030; 80053; 82306; 82310; 82728; 82962; 83540; 83550; 83735; 83970; 84100; 84443; 84550; 85025; 86706; 86803; 86850; 86900; 86920; 87070; 87077; 87176; 87186; 87205; 87340; 90935; 96372; 96374; 96375; 97110; 97116; 97161; 97167; 97530; 97535; 97760; 99285; G0378; J1170; J1644; J1815; J1940; J2310; J2405; J2543; J2704; J3010; J7030; L3670; P9040; P9047; Q3014; Q4081

== ENCOUNTER 2023-09-16 08:16 | Inpatient (IN) | payer MEDICARE, MEDICAID, SELFPAY ==
[2023-09-16] VITALS (14 sets, daily range): BP systolic 89–146; BP diastolic 54–82; PULSE 73–92; RESP 15–23; TEMP 36.4–37; O2SAT 93–98; BMI 43.0
--- NOTE | 2023-09-16 08:24 | XR_ITS ---
WS: [id number] XR chest 1V portable [id number] REASON FOR EXAM: dyspnea/cough FINDINGS: Mild tortuosity of the thoracic aorta. Mild cardiomegaly. Calcified granulomas disease in both hemithoraces. No acute pulmonary parenchymal or pleural abnormality. Moderate degenerative spondylosis in the mid and lower thoracic spine. XR/XR chest 1V portable [id number] IMPRESSION: No acute chest abnormality.
--- NOTE | 2023-09-16 08:24 | ECG_ITS ---
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 Measurements Intervals [place] Rate: 84 P: 258 PA: 127 QRS: -58 QRSD: 117 T: 104 QT: 402 QTc: 477 Interpretive Statements sinu RHYTHM LEFT AXIS DEVIATION [QRS AXIS < -30] RIGHT BUNDLE BRANCH BLOCK [120+ ms QRS DURATION, UPRIGHT V1, 40+ ms S IN I/aVL/V4/V5/V6] POSSIBLE ANTERIOR MYOCARDIAL INFARCTION , PROBABLY OLD [30 ms Q WAVE IN V3/V4, OR R < 0.2 mV IN V4] MODERATE T-WAVE ABNORMALITY, CONSIDER LATERAL ISCHEMIA [-0.1+ mV T-WAVE IN I/aVL/V5/V6] Compared to ECG 07/14/2022 06:11:25 Right bundle-branch block now present T-wave abnormality now present Possible ischemia now present Electronically Signed On 09-16-2023 8:35:31 CDT by Solis Francisco M.D. [email or web address] [id number] f
--- NOTE | 2023-09-16 08:35 | CT_ITS ---
WS: [id number] CT ABDOMEN AND PELVIS NONCONTRAST HISTORY: abd pain TECHNIQUE: Imaging performed through the abdomen and pelvis. Coronal and sagittal reformats are submi tted. All CT scans at [facility] use at least one of these dose optimization techniques: auto mated exposure control; mA and/or kV adjustment per patient size (includes targeted exams where dose is matched to clinical indication); or iterative reconstruction. DLP: 1248.94 mGy.cm COMPARISON: Pelvis CT 09/05/2023 Lower thorax: Motion artifact. Patient was unwilling to hold her breath for this exam. Liver: Normal size liver. No mass or bile duct dilatation. Gallbladder: Prior cholecystectomy. Pancreas: Normal size and attenuation. Normal pancreatic duct. No pancreatitis or mass. Spleen: Normal. Adrenal glands: Normal. No mass. Right kidney: Moderate atrophy. No obstruction. Arterial calcifications. Left kidney: Moderate atrophy. No obstruction. Moderate arterial calcifications. Aorta: Moderate to severe atherosclerosis abdominal aorta. No aneurysm. Atherosclerosis continues int o the common iliac arteries. No free fluid, intraperitoneal air or significant lymphadenopathy. GI tract: Normal noncontrast imaging of the stomach, small bowel and colon. No obstruction or wall th ickening. Normal appendix. Abdominal wall: Extensive soft tissue edema bilaterally throughout the abdominal wall and pelvis. No focal collection to suggest hematoma. Pelvis: No free fluid. Atrophic uterus. There is a soft tissue ulceration posterior to the coccyx wit h a diameter of 1.9 cm. Adjacent soft tissue inflammation. This area of inflammation extends to the d istal coccyx. No fracture and no definite osteomyelitis identified. Osseous structures: No pelvic fractures. CT/CT abdomen pelvis wo con [id number] IMPRESSION: 1. Extensive soft tissue anasarca throughout the abdomen and pelvis. 2. No acute abdominal pelvic findings are identified. 3. Bilateral renal atrophy with extensive vascular calcifications. 4. No pelvic fractures. 5. Decubitus ulcer noted at the level of the coccyx. Soft tissue inflammation extends to the coccyx but the tract does not extend to the coccyx. Cannot confi rm osteomyelitis.
--- NOTE | 2023-09-16 08:37 | ED_ITS ---
HPI - Altered Mental Status 2 General: Chief Complaint: Altered Mental Status Stated Complaint: ams Time Seen by Provider: 09/16/23 08:22 Source: patient Mode of arrival: EMS History of Present Illness: 57-year-old female presents to the emerg ency room from dialysis. She went to dialysis with short of breath confused and disoriented they transported her to the emergency room. Patient is able to talk but has difficult time providing details. She focuses on her sacral ulcer. She recently fell on her proximal humerus fracture she was placed in a sling this occurred on 515 she was discharged home she returned to the emergency room with complaint of persistent pain on 526 reimaging did not show any significant displacement. She was discharged home she returned again on 527 at that time she had missed dialysis and had worsened she was admitted to the hospital she was found to have a sacral decub which was surgically debrided and culture chills and abdominal wall cellulitis she was discharged home 2 days ago on doxycycline and Augmentin. MD complaint: altered mental status and confusion Review of Systems 2 Const: Denies: fever(s) or chills Card: Denies: chest pain Resp: Denies: dyspnea GI: Denies: abdominal pain : Denies: dysuria, urinary frequency or urinary urgency Musc: Denies: neck pain or back pain Skin/Breast: Denies: rash PFSH ED 2 PFSH: Medical History ESRD (end stage renal disease) Fracture of greater tuberosity of left humerus Fracture of humeral head, left, closed Stage III pressure ulcer of sacral region Decubitus ulcer of sacral region, unstageable Abdominal wall cellulitis Failure to thrive Weakness Toe fracture Contusion of right foot ESRD (end stage renal disease) Rash Seropositive rheumatoid arthritis Left foot pain Long-term insulin use Diabetes type 2, uncontrolled Appetite loss MCI (mild cognitive impairment) Hypothyroidism Insulin dependent type 2 diabetes mellitus COVID-19 Hypertension Anxiety ESRD (end stage renal disease) Diabetes Hyperlipidemia Chronic back pain De Quervain's tenosynovitis Surgical History Status post colonoscopy S/P dialysis catheter insertion Removed 07/14/20 S/P arteriovenous (AV) fistula creation History of temporal artery biopsy H/O dilation and curettage H/O section Hx of cholecystectomy History of appendectomy History of carpal tunnel repair H/O neck surgery fusion Family History Father Bleeding disorder Other Diabetes Heart disease Hyperlipidemia Hypertension Kidney problem Migraines Stroke Denies family history of Anesthesia complication Social History Smoking and tobacco/nicotine status: never used tobacco/nicotine Second hand smoke exposure: No Alcohol intake: never Substance/Drug Use: never Adopted: No Caregiver/support person: Yes Lives independently: Yes Household members: family Housing: House Marital status: Single Highest education level completed: High School Graduate service: No Current occupational status: disabled Current occupational exposures/hazards: No Pets and animals: Yes Pets & animals: dog(s) Sexually active: No Do you think of yourself as: Straight/Heterosexual Current gender identity: Female Sabina/Restorationist: L[employer] Special sabina needs: No Agree to transfusion: No Physical Exam 2 Const: COMMON NORMALS: no acute distress GENERAL APPEARANCE: cooperative and comfortable ORIENTATION/CONSCIOUSNESS: Yes awake HENMT: COMMON NORMALS: normocephalic, atraumatic and hearing grossly normal bilaterally HEAD & SCALP: normocephalic and atraumatic Resp: COMMON NORMALS: normal respiratory effort, No retractions, No use of accessory muscles and clear to auscultation bilaterally AUSCULTATION: clear to auscultation bilaterally Cardio: COMMON NORMALS: regular rate, regular rhythm and No murmurs present (Cardio) RATE: regular rate RHYTHM: regular rhythm GI: COMMON NORMALS: Soft to palpation and No hepatosplenomegaly present A USCULTATION: Yes normoactive bowel sounds PALPATION: Yes Soft to palpation, No Tenderness to palpation present (GI), No Guarding due to palpation present (GI) and Yes No hepatosplenomegaly present Extremity: COMMON NORMALS: normal to inspection, capillary refill normal, no clubbing, cyanosis or edema, no calf tenderness and no pedal edema Skin: COMMON NORMALS: no rashes or lesions noted GENERAL SKIN EXAM: no rashes or lesions noted Course 2 Vital Signs: Vital signs: Vital Signs Temperature 97.6 F 09/16/23 08:10 Pulse Rate 88 09/16/23 12:11 Respiratory Rate 23 H 09/16/23 12:11 Blood Pressure 125/81 09/16/23 12:11 Pulse Oximetry 97 09/16/23 12:11 Oxygen Delivery Me thod Room Air 09/16/23 10:00 MDM - Altered Mental Status Medical Decision Making Patient is altered mental status her anemia is stable but she does have some mild hyponatremia. She also has some hyperkalemia will consult nephrology she is due for dialysis today. Additionally she does have an acute cystitis which is new urine has been cultured and blood cultures drawn lactate was normal. She was sent home on doxycycline and Augmentin for the tissue cultures from the wound debridement over the sacrum previously. She was started on meropenem which should also cover the cellulitis issues that were noted previously. Discussed with hospitalist orders written. Nephrology is also been consulted. Medical Records I reviewed the patient's medical records. Lab Data I reviewed the patient's lab results. 09/16/23 09:03 09/16/23 09:21 Radiology Impressions Chest X-Ray 09/16/23 08:24 IMPRESSION: No acute chest abnormality. Abdomen/Pelvis CT 09/16/23 08:35 IMPRESSION: 1. Extensive soft tissue anasarca throughout the abdomen and pelvis. 2. No acute abdominal pelvic findings are identified. 3. Bilateral renal atrophy with extensive vascular calcifications. 4. No pelvic fractures. 5. Decubitus ulcer noted at the level of the coccyx. Soft tissue inflammation extends to the coccyx but the tract does not extend to the coccyx. Cannot confirm osteomyelitis. Laboratory Results WBC 8.87 10^3/uL (3.29-11.43) 09/16/23 09:03 RBC 3.17 10^6/uL (3.85-5.65) L 09/16/23 09:03 Hgb 9.60 g/dL (11.27-16.99) L 09/16/23 09:03 Hct 31.4 % (36-47) L 09/16/23 09:03 MCV 99.1 fl (85-98) H 09/16/23 09:03 MCH 30.3 pg (27-33) 09/16/23 09:03 MCHC 30.6 g/dL (30-55) 09/16/23 09:03 RDW 14.7 % (12.1-15.1) 09/16/23 09:03 Plt Count 365 10^3/cmm (157-399) 09/16/23 09:03 MPV 9.5 fL (7.4-10.4) 09/16/23 09:03 Neut % (Auto) 83.3 % 09/16/23 09:03 Lymph % (Auto) 7.3 % 09/16/23 09:03 Whitman % (Auto) 9.0 % 09/16/23 09:03 Eos % (Auto) 0.0 % 09/16/23 09:03 Baso % (Auto) 0.1 % 09/16/23 09:03 Neut # (Auto) 7.38 10^3/uL (1.8-7.7) 09/16/23 09:03 Lymph # (Auto) 0.7 10^3/uL (0.8-4.8) L 09/16/23 09:03 Whitman # (Auto) 0.8 10^3/uL (0.2-0.9) 09/16/23 09:03 Eos # (Auto) 0.0 10^3/uL (0.0-0.8) 09/16/23 09:03 Baso # (Auto) 0.0 10^3/uL (0.0-0.1) 09/16/23 09:03 Nucleated RBC % (auto) 0 % 09/16/23 09:03 Nucleated RBCs # 0.0 /100WBC 09/16/23 09:03 Sodium 125 mmol/L (136-145) L 09/16/23 09:21 Potassium 5.7 mmol/L (3.5-5.1) H 09/16/23 09:21 Chloride 89 mmol/L (98-107) L 09/16/23 09:21 Carbon Dioxide 21 mmol/L (22-29) L 09/16/23 09:21 Anion Gap 20.7 (5-19) H 09/16/23 09:21 BUN 53 mg/dL (6-20) H 09/16/23 09:21 Creatinine 6.1 mg/dL (0.5-0.9) H* 09/16/23 09:21 GFR Calculation 7.1 mL/min (90-130) L 09/16/23 09:21 Glucose 96 mg/dL (65-115) 09/16/23 09:21 POC Glucose 82 mg/dL (70-110) 09/16/23 12:38 Calculated Osmolality 274 mOsm/kg (285-295) L 09/16/23 09:21 Lactic Acid 1.0 mmol/L (0.5-2.2) 09/16/23 09:03 Calcium 8.5 mg/dL (8.5-10.5) 09/16/23 09:21 Total Bilirubin 0.4 mg/dL (0.15-1.2) 09/16/23 09:21 AST 25 U/L (0-32) 09/16/23 09:21 ALT 11 U/L (0-33) 09/16/23 09:21 Alkaline Phosphatase 115 U/L (35-105) H 09/16/23 09:21 Troponin T Baseline 128 ng/L (0-10) H* 09/16/23 09:03 Troponin T 120 Minute 122.0 ng/L (0-10) H 09/16/23 11:38 Delta Troponin T -6.0 ABS# (0-10) L 09/16/23 11:38 NT-Pro-B Natriuret Pep 61049 pg/mL (0-125) H 09/16/23 09:21 Total Protein 6.5 g/dL (6.6-8.7) L 09/16/23 09:21 Albumin 2.7 g/dL (3.5-5.2) L 09/16/23 09:21 Globulin 3.8 g/dL (1.3-4.6) 09/16/23 09:21 Procalcitonin 0.90 ng/mL (0-0.5) H 09/16/23 09:21 Urine Color Yellow (Yellow) 09/16/23 09:48 Urine Appearance Cloudy (CLEAR) A 09/16/23 09:48 Urine pH 8 (5-7) H 09/16/23 09:48 Ur Specific [place] 1.015 (1.005-1.030) 09/16/23 09:48 Urine Protein 2+ (Negative) H 09/16/23 09:48 Urine Glucose (UA) Norm (Normal) 09/16/23 09:48 Urine Ketones Negative (Negative) 09/16/23 09:48 Urine Blood 3+ (Negative) H 09/16/23 09:48 Urine Nitrate Negative (Negative) 09/16/23 09:48 Urine Bilirubin Neg (Negative) 09/16/23 09:48 Prot Sulfosalicylic Acd Negative (Negative) 09/16/23 09:48 Urine Urobilinogen Norm mg/dL (Negative) 09/16/23 09:48 Ur Leukocyte Esterase 2+ (Negative) H 09/16/23 09:48 Urine RBC Rare /hpf (0-2) 09/16/23 09:48 Urine WBC Too numerous to cnt /hpf (0-5) H 09/16/23 09:48 Ur Squamous Epith Cells Not Reportable 09/16/23 09:48 Ur Transition Epith Cell 5-10 /hpf 09/16/23 09:48 Amorphous Sediment Not Reportable 09/16/23 09:48 Urine Bacteria 2+ /hpf (NONE) H 09/16/23 09:48 All radiology interpretation(s) finalized by discharge Discharge Plan Discharge Patient Disposition: Admitted As Inpatient Clinical Impression: Cystitis, ESRD (end stage renal disease), Acute encephalopathy, Hyponatremia, Hyperkalemia, Elevated troponin, Cellulitis, Sacral decubitus ulcer, stage III Condition: Stable Coding Level of Care Code ED Director Of Corporate Strategy for Danial Barfield
[2023-09-16 09:11] LABS: Basophils % 0.1 %; Hematocrit 31.4 % (36-47); Lymphocytes # 0.7 10^3/uL (0.8-4.8); Lymphocytes % 7.3 %; Mean Corpuscular HGB Conc 30.6 g/dL (30-55); Mean Corpuscular Hemoglobin 30.3 pg (27-33); Mean Corpuscular Volume 99.1 fl (85-98); Mean Platelet Volume 9.5 fL (7.4-10.4); Monocytes # 0.8 10^3/uL (0.2-0.9); Neutrophils # 7.38 10^3/uL (1.8-7.7); Neutrophils % 83.3 %; Nucleated Red Blood Cells % 0 %; Platelet Count 365 10^3/cmm (157-399); Red Blood Count 3.17 10^6/uL (3.85-5.65); Red Cell Distribution Width 14.7 % (12.1-15.1); White Blood Count 8.87 10^3/uL (3.29-11.43)
[2023-09-16 09:36] LABS: Troponin(5th) Baseline 128 ng/L (0-10)
[2023-09-16 10:12] LABS: NT Pro B Type Natriuretic Pept 23557 pg/mL (0-125)
[2023-09-16 10:21] LABS: Add Urine Microscopic? YES; Bilirubin Urine Neg (Negative); Blood Urine 3+ (Negative); Glucose Urine UA Norm (Normal); Ketones Urine Negative (Negative); Leukocyte Esterase Urine 2+ (Negative); Nitrate Urine Negative (Negative); Protein Urine 2+ (Negative); Specific Gravity, Urine 1.015 (1.005-1.030); Sulfosalicylic Acid Urine Negative (Negative); Urine Appearance Cloudy (CLEAR); Urine Color Yellow (Yellow); Urobilinogen Urine Norm (Negative); pH Urine 8 (5-7)
--- NOTE | 2023-09-16 10:24 | ECG_ITS ---
[facility] Test Date: 2023-09-16 Pat Name: Elvi Kaiser Department: Room: Gender: Female County Director: : 1965 Requested By: Jd Morillo Order Number: [id number] Doug MD: Solis Francisco M.D. Measurements Intervals Walls Rate: 85 P: 263 DC: 127 QRS: -59 QRSD: 121 T: 105 QT: 401 QTc: 478 Interpretive Statements Sinus RHYTHM LEFT AXIS DEVIATION [QRS AXIS < -30] RIGHT BUNDLE BRANCH BLOCK [120+ ms QRS DURATION, UPRIGHT V1, 40+ ms S IN I/aVL/V4/V5/V6] POSSIBLE ANTERIOR MYOCARDIAL INFARCTION , PROBABLY OLD [30 ms Q WAVE IN V3/V4, OR R < 0.2 mV IN V4] MODERATE T-WAVE ABNORMALITY, CONSIDER LATERAL ISCHEMIA [-0.1+ mV T-WAVE IN I/aVL/V5/V6] Compared to ECG 09/16/2023 08:21:09 Myocardial infarct finding still present T-wave abnormality still present Possible ischemia still present Electronically Signed On 09-16-2023 13:03:40 CDT by Solis Francisco M.D. [email or web address]
[2023-09-16 10:25] LABS: Alanine Aminotransferase 11 U/L (0-33); Albumin Level 2.7 g/dL (3.5-5.2); Alkaline Phosphatase 115 U/L (35-105); Anion Gap 20.7 (5-19); Aspartate Amino Transferase 25 U/L (0-32); Blood Urea Nitrogen 53 mg/dL (6-20); Calcium 8.5 mg/dL (8.5-10.5); Carbon Dioxide 21 mmol/L (22-29); Chloride 89 mmol/L (98-107); Globulin 3.8 g/dL (1.3-4.6); Glomerular Filtration Rate 7.1 mL/min (90-130); Glucose 96 mg/dL (65-115); Osmolality Calculated 274 mOsm/kg (285-295); Potassium 5.7 mmol/L (3.5-5.1); Sodium 125 mmol/L (136-145); Total Bilirubin 0.4 mg/dL (0.15-1.2); Total Protein 6.5 g/dL (6.6-8.7)
[2023-09-16 10:25] LABS: Bacteria Urine 2+ /hpf; RBC Urine RARE /hpf (0-2); WBC Urine TOO NUMEROUS TO CNT /hpf (0-5)
[2023-09-16 10:26] LABS: Add Urine Culture? Yes
[2023-09-16] MEDS: meropenem 1,000 MG in sodium chloride 0.9% (plus) 50 ML 100 MG IV (11:03)
--- NOTE | 2023-09-16 11:32 | P.HP_ITS ---
Providers/Chief Complaint 2 Admitting Physician: Basil Siddiqui MD Primary Care Provider: Vivienne Schulz MD Chief Complaint: ams History of Present Illness Elvi Kaiser is a 57 year old female presenting from dialysis via the fpc with confusion. She was diverted to the emergency department secondary to this. No recent falls. Recently in the hospital and discharged September 13 with abdominal wall cellulitis, and got debridement of his sacral ulcer. Was discharged on Augmentin and doxycycline. She denies any chest discomfort. She seems to be reorienting. She was short of breath on arrival. She did not receive any dialysis treatment today. Denies any headache, nausea, vomiting, blood in stool. Review of Systems 2 General: Reports: 10 or more systems reviewed and unremarkable except in HPI and below Card: Denies: chest pain Resp: Reports: dyspnea; Denies: productive cough or non-productive cough GI: Denies: abdominal pain, nausea or vomiting Medications/Allergies Home Medications Medication Instructions Recorded Confirmed Last Taken Type carbidopa 25 mg-levodopa 100 mg See Rx Instructions .Route .COMPLEX 05/20/20 09/16/23 08/22/23 History tablet ferric citrate 210 mg iron tablet 630 mg PO TID@08,12,20 05/20/20 09/16/23 08/23/23 History (Auryxia) ropinirole 0.5 mg tablet 0.5 mg PO QPM 06/21/20 09/16/23 08/23/23 History blood-glucose meter,continuous #1 ea 09/24/21 09/16/23 Unknown Rx (Dexcom G6 Thermoforming Operator) blood-glucose sensor (Dexcom G6 #9 ea 09/24/21 09/16/23 Unknown Rx Sensor device) clopidogrel 75 mg tablet 75 mg PO DAILY #30 tabs 11/27/21 09/16/23 08/23/23 Rx blood-glucose transmitter (Dexcom #3 ea 12/24/21 09/16/23 Unknown Rx G6 Transmitter device) glucagon 1 mg solution for 1 mg SUBCUT Q20M PRN hypoglycemia 12/24/21 09/16/23 Unknown Rx injection (Glucagon Emergency Kit) #1 ea amlodipine 2.5 mg tablet (Norvasc) 2.5 mg PO DAILY 09/28/22 09/16/23 08/23/23 History gabapentin 100 mg capsule 100 mg PO TID #90 caps 04/21/23 09/16/23 08/23/23 Rx levothyroxine 50 mcg tablet 50 mcg PO DAILY 08/24/23 09/16/23 08/23/23 History metoprolol succinate 50 mg 50 mg PO DAILY 08/24/23 09/16/23 08/23/23 History tablet,extended release 24 hr cyclobenzaprine 10 mg tablet 10 mg PO Q8H PRN MUSCLE SPASMS #14 09/04/23 09/16/23 Unknown Rx tabs atorvastatin 80 mg tablet 80 mg PO DAILY 09/06/23 09/16/23 Unknown History amoxicillin 875 mg-potassium 1 tab PO BID #10 tabs 09/12/23 09/16/23 Unknown Rx clavulanate 125 mg tablet doxycycline monohydrate 100 mg 100 mg PO BID #10 tabs 09/12/23 09/16/23 Unknown Rx tablet cetirizine 10 mg tablet 10 mg PO DAILY 09/16/23 09/16/23 Unknown History collagenase clostridium histo. 250 1 applic topical BID 09/16/23 09/16/23 Unknown History unit/gram topical ointment (Santyl) diphenhydramine HCl 25 mg capsule 25 mg PO BID PRN ALLERGIES 09/16/23 09/16/23 Unknown History (Benadryl) hydromorphone 2 mg tablet 2 mg PO Q8H PRN Pain 09/16/23 09/16/23 Unknown History ibuprofen 200 mg capsule (Advil 200 mg PO .Q4-6H PRN Pain 09/16/23 09/16/23 Unknown History Liqui-Gel) omeprazole 20 mg capsule,delayed 20 mg PO BEDTIME 09/16/23 09/16/23 Unknown History release Allergies Allergy/AdvReac Type Severity Reaction Status Date / Time codeine Allergy ALGY-Hives Verified 09/07/23 07:46 fentanyl Allergy ALGY-Hives Verified 09/07/23 07:46 hydrocodone Allergy ALGY-Hives Verified 09/07/23 07:46 influenza virus vaccine qs Allergy ALGY-Hives Verified 09/07/23 07:46 (65 years up) [From [employer] Quad (65y up)(PF)] Iodinated Contrast Media Allergy ALGY-Anaphy Verified 09/07/23 07:46 laxis kiwi Allergy ALGY-Anaphy Verified 09/07/23 07:46 laxis lisinopril Allergy ADR-Cough Verified 09/07/23 07:46 NSAIDS (Non-Steroidal Allergy ALGY-Hives Verified 09/07/23 07:46 Anti-Inflamma oxycodone Allergy ALGY-Hives Verified 09/07/23 07:46 pineapple Allergy ALGY-Anaphy Verified 09/07/23 07:46 laxis promethazine Allergy Unknown Verified 09/07/23 07:46 strawberry Allergy ALGY-Anaphy Verified 09/07/23 07:46 laxis tramadol Allergy ALGY-Hives Verified 09/07/23 07:46 vaccine adjuvant emulsion Allergy ALGY-Hives Verified 09/07/23 07:46 [id number].1 [From [employer] (65y up)(PF)] PFSH Acute 2 PFSH: Medical History (Updated 09/16/23 @ 11:41 by Basil Siddiqui MD) ESRD (end stage renal disease) Fracture of greater tuberosity of left humerus Fracture of humeral head, left, closed Stage III pressure ulcer of sacral region Decubitus ulcer of sacral region, unstageable Abdominal wall cellulitis Failure to thrive Weakness Toe fracture Contusion of right foot ESRD (end stage renal disease) Rash Seropositive rheumatoid arthritis Left foot pain Long-term insulin use Diabetes type 2, uncontrolled Appetite loss MCI (mild cognitive impairment) Hypothyroidism Insulin dependent type 2 diabetes mellitus COVID-19 Hypertension Anxiety ESRD (end stage renal disease) Diabetes Hyperlipidemia Chronic back pain De Quervain's tenosynovitis Surgical History Status post colonoscopy S/P dialysis catheter insertion Removed 07/14/20 S/P arteriovenous (AV) fistula creation History of temporal artery biopsy H/O dilation and curettage H/O section Hx of cholecystectomy History of appendectomy History of carpal tunnel repair H/O neck surgery fusion Family History Father Bleeding disorder Other Diabetes Heart disease Hyperlipidemia Hypertension Kidney problem Migraines Stroke Denies family history of Anesthesia complication Social History Smoking and tobacco/nicotine status: never used tobacco/nicotine Second hand smoke exposure: No Alcohol intake: never Substance/Drug Use: never Adopted: No Caregiver/support person: Yes Lives independently: Yes Household members: family Housing: House Marital status: Single Highest education level completed: High School Graduate service: No Current occupational status: disabled Current occupational exposures/hazards: No Pets and animals: Yes Pets & animals: dog(s) Sexually active: No Do you think of yourself as: Straight/Heterosexual Current gender identity: Female Sabina/Mandaen: Yarsani Special sabina needs: No Agree to transfusion: No Vitals/I&O/Wt Last Vital Signs Temp 97.6 F 09/16/23 08:10 Pulse 86 09/16/23 10:48 Resp 18 09/16/23 10:48 BP 115/58 09/16/23 10:48 Pulse Ox 98 09/16/23 10:48 O2 Del Method Room Air 09/16/23 10:00 Weight last 48 hrs Weight 99.79 kg Physical Exam 2 Narrative: General exam no distress, conversant HEENT: Atraumatic normocephalic. Oropharynx clear Neck is supple no lymphadenopathy thyromegaly Cardiovascular regular rate and rhythm without murmur Lungs clear Abdomen is soft obese nontender. Some skin breakdown is noted along her folds on the left more extensively than the right. A small area of necrosis is noted on the left. exam demonstrates [place] Extremities no cyanosis clubbing. AV fistula is noted right upper extremity with thrill and bruit. Neuro no obvious focal deficits Back not examined, awaiting transfer to floor so I can adequately assess her decubitus. Urinary Catheter Management: [place]: Cath Placed During This Visit: yes Urinary Catheter Date of Insertion: 09/16/23 Urinary Catheter Time of Insertion: 10:00 Data 09/16/23 09:03 09/16/23 09:21 Other Labs: LFTs are normal with exception of alk phos of 115 Lactic acid 1.0 Calcium 8.5, albumin 2.7 BNP 2300, troponin 128. Repeat troponin pending. Procalcitonin 0.9 Urinalysis with too numerous to count white cells Abdomen/pelvis CT with extensive anasarca, no fracture, decubitus ulcer noted no definite osteomyelitis but does track to coccyx Chest x-ray by my review no infiltrate A noncontrast head CT is ordered EKG demonstrates sinus rhythm, left axis deviation, right bundle branch block, nonspecific ST-T wave changes. Poor R wave progression is noted. Micro: Microbiology 09/16/23 09:21 Blood Culture - Preliminary Blood SPECIMEN COLLECTED 09/16/23 09:03 Blood Culture - Preliminary Blood SPECIMEN COLLECTED A&P Assessment and plan (1) Acute encephalopathy: Patient presents with acute encephalopathy This is likely secondary to hyponatremia versus UTI Follow for improvement Neurochecks Check CT head Reduce dose of Neurontin considering renal function (2) UTI (urinary tract infection): Patient with UTI Urine culture Continue meropenem Blood cultures already obtained (3) Sacral decubitus ulcer: Concern last hospital stay for infection. This was debrided and patient was discharged on Augmentin and doxycycline. Initiate vancomycin currently, and continue until blood cultures are negative. Wound cultures previously grew group C strep, strep anginosus, Klebsiella (4) Hyponatremia: Fluid restriction Nephrology consult for dialysis Recheck sodium daily (5) Hyperkalemia: Patient received calcium, insulin and glucose in the ER Nephrology consult for dialysis (6) Elevated troponin: Suspect this is secondary end-stage renal disease. No acute findings on EKG Serial troponins Plavix, statin Check echocardiogram (7) ESRD (end stage renal disease): Nephrology consultation Plan Multiple other medical problems as outlined in past medical history Full code Heparin for DVT prophylaxis as well as SCDs. Attestations 2 Medical Necessity Statement*: Will need greater than 2 midnight stay for evaluation and treatment of acute encephalopathy and UTI associated with hyponatremia. Diagnoses Acute encephalopathy G93.40 UTI (urinary tract infection) N39.0 Sacral decubitus ulcer L89.159 Hyponatremia E87.1 Hyperkalemia E87.5 Elevated troponin R79.89 ESRD (end stage renal disease) N18.6 Time Spent (min) 64
[2023-09-16] MEDS: dextrose 10% 250 ML 1000 ML IV ×2 (11:35→13:32)
--- NOTE | 2023-09-16 11:36 | P.CONIM_ITS ---
Providers/Reason For Consult 2 Consulting Physician/Specialty*: eliceo pacheco md/ telenephrology Reason for Consult*: ESRD Requesting Physician: DR Young and DR Siddiqui Attending Physician: Dr Siddiqui Primary Care Provider: Vivienne Schulz MD History of Present Illness History of Present Illness Elvi Kaiser is a 57 year old female w/ ESRD. She was discharged on 09-14-23 to [facility]. Recent sacral ulcer I and D and treatment for cellulitis. She went to HD today and was disoriented and SOB and sent to the ER. Today she has pain, is weak. Renal is called for ESRD, hyponatremia, and hyperkalemia she has h/o IDDM, obesity, HTN, hypothyroidism, depression, Left humerus fx Review of Systems 2 Narrative: weak, SOB, am pain, swollen, skin lesions Medications/Allergies Home Medications Medication Instructions Recorded Confirmed Last Taken Type carbidopa 25 mg-levodopa 100 mg See Rx Instructions .Route .COMPLEX 05/20/20 09/16/23 08/22/23 History tablet ferric citrate 210 mg iron tablet 630 mg PO TID@08,12,20 05/20/20 09/16/23 08/23/23 History (Auryxia) ropinirole 0.5 mg tablet 0.5 mg PO QPM 06/21/20 09/16/23 08/23/23 History blood-glucose meter,continuous #1 ea 09/24/21 09/16/23 Unknown Rx (Dexcom G6 Human An[employer] Teacher) blood-glucose sensor (Dexcom G6 #9 ea 09/24/21 09/16/23 Unknown Rx Sensor device) clopidogrel 75 mg tablet 75 mg PO DAILY #30 tabs 11/27/21 09/16/23 08/23/23 Rx blood-glucose transmitter (Dexcom #3 ea 12/24/21 09/16/23 Unknown Rx G6 Transmitter device) glucagon 1 mg solution for 1 mg SUBCUT Q20M PRN hypoglycemia 12/24/21 09/16/23 Unknown Rx injection (Glucagon Emergency Kit) #1 ea amlodipine 2.5 mg tablet (Norvasc) 2.5 mg PO DAILY 09/28/22 09/16/23 08/23/23 History gabapentin 100 mg capsule 100 mg PO TID #90 caps 04/21/23 09/16/23 08/23/23 Rx levothyroxine 50 mcg tablet 50 mcg PO DAILY 08/24/23 09/16/23 08/23/23 History metoprolol succinate 50 mg 50 mg PO DAILY 08/24/23 09/16/23 08/23/23 History tablet,extended release 24 hr cyclobenzaprine 10 mg tablet 10 mg PO Q8H PRN MUSCLE SPASMS #14 09/04/23 09/16/23 Unknown Rx tabs atorvastatin 80 mg tablet 80 mg PO DAILY 09/06/23 09/16/23 Unknown History amoxicillin 875 mg-potassium 1 tab PO BID #10 tabs 09/12/23 09/16/23 Unknown Rx clavulanate 125 mg tablet doxycycline monohydrate 100 mg 100 mg PO BID #10 tabs 09/12/23 09/16/23 Unknown Rx tablet cetirizine 10 mg tablet 10 mg PO DAILY 09/16/23 09/16/23 Unknown History collagenase clostridium histo. 250 1 applic topical BID 09/16/23 09/16/23 Unknown History unit/gram topical ointment (Santyl) diphenhydramine HCl 25 mg capsule 25 mg PO BID PRN ALLERGIES 09/16/23 09/16/23 Unknown History (Benadryl) hydromorphone 2 mg tablet 2 mg PO Q8H PRN Pain 09/16/23 09/16/23 Unknown History ibuprofen 200 mg capsule (Advil 200 mg PO .Q4-6H PRN Pain 09/16/23 09/16/23 Unknown History Liqui-Gel) omeprazole 20 mg capsule,delayed 20 mg PO BEDTIME 09/16/23 09/16/23 Unknown History release Allergies Allergy/AdvReac Type Severity Reaction Status Date / Time codeine Allergy ALGY-Hives Verified 09/07/23 07:46 fentanyl Allergy ALGY-Hives Verified 09/07/23 07:46 hydrocodone Allergy ALGY-Hives Verified 09/07/23 07:46 influenza virus vaccine qs Allergy ALGY-Hives Verified 09/07/23 07:46 [id number](65 years up) [From Fluad Quad (65y up)(PF)] Iodinated Contrast Media Allergy ALGY-Anaphy Verified 09/07/23 07:46 laxis kiwi Allergy ALGY-Anaphy Verified 09/07/23 07:46 laxis lisinopril Allergy ADR-Cough Verified 09/07/23 07:46 NSAIDS (Non-Steroidal Allergy ALGY-Hives Verified 09/07/23 07:46 Anti-Inflamma oxycodone Allergy ALGY-Hives Verified 09/07/23 07:46 pineapple Allergy ALGY-Anaphy Verified 09/07/23 07:46 laxis promethazine Allergy Unknown Verified 09/07/23 07:46 strawberry Allergy ALGY-Anaphy Verified 09/07/23 07:46 laxis tramadol Allergy ALGY-Hives Verified 09/07/23 07:46 vaccine adjuvant emulsion Allergy ALGY-Hives Verified 09/07/23 07:46 [id number] [From [employer] (65y up)(PF)] PFSH Acute 2 PFSH: Medical History Fracture of greater tuberosity of left humerus Fracture of humeral head, left, closed Stage III pressure ulcer of sacral region Decubitus ulcer of sacral region, unstageable Abdominal wall cellulitis Failure to thrive Weakness Toe fracture ESRD (end stage renal disease) Contusion of right foot ESRD (end stage renal disease) Rash Seropositive rheumatoid arthritis Left foot pain Long-term insulin use Diabetes type 2, uncontrolled Appetite loss MCI (mild cognitive impairment) Hypothyroidism Insulin dependent type 2 diabetes mellitus COVID-19 Hypertension Anxiety ESRD (end stage renal disease) Diabetes Hyperlipidemia Chronic back pain De Quervain's tenosynovitis Surgical History Status post colonoscopy S/P dialysis catheter insertion Removed 07/14/20 S/P arteriovenous (AV) fistula creation History of temporal artery biopsy H/O dilation and curettage H/O section Hx of cholecystectomy History of appendectomy History of carpal tunnel repair H/O neck surgery fusion Family History Father Bleeding disorder Other Diabetes Heart disease Hyperlipidemia Hypertension Kidney problem Migraines Stroke Denies family history of Anesthesia complication Social History Smoking and tobacco/nicotine status: never used tobacco/nicotine Second hand smoke exposure: No Alcohol intake: never Substance/Drug Use: never Adopted: No Caregiver/support person: Yes Lives independently: Yes Household members: family Housing: House Marital status: Single Highest education level completed: High School Graduate service: No Current occupational status: disabled Current occupational exposures/hazards: No Pets and animals: Yes Pets & animals: dog(s) Sexually active: No Do you think of yourself as: Straight/Heterosexual Current gender identity: Female Sabina/Orthodoxy: Muslim Special sabina needs: No Agree to transfusion: No Vitals/I&O/Wt Last Vital Signs Temp 97.6 F 09/16/23 08:10 Pulse 86 09/16/23 10:48 Resp 18 09/16/23 10:48 BP 115/58 09/16/23 10:48 Pulse Ox 98 09/16/23 10:48 O2 Del Method Room Air 09/16/23 10:00 Weight last 48 hrs Weight 99.79 kg Physical Exam 2 Narrative: General exam - obese lady in bed, confused,no distress, conversant HEENT: Atraumatic normocephalic. Neck is supple Cardiovascular regular rate and rhythm without murmur Lungs clear Abdomen is soft obese nontender. Extremities + b/l leg edema. LUE pain w/ movement AV fistula is noted right upper extremity with thrill and bruit. Neuro - a,a, o x 2, weak examined by RN -telehealth visit. Urinary Catheter Management: Woodard: Cath Placed During This Visit: yes Urinary Catheter Date of Insertion: 09/16/23 Urinary Catheter Time of Insertion: 10:00 Data 09/16/23 09:03 09/16/23 09:21 Micro: Microbiology 09/16/23 09:21 Blood Culture - Preliminary Blood SPECIMEN COLLECTED 09/16/23 09:03 Blood Culture - Preliminary Blood SPECIMEN COLLECTED A&P Assessment and plan (1) ESRD (end stage renal disease): 57-year-old lady ESRD on dialysis Tuesday and Tuesday. The patient had 2 recent hospitalizations for left humeral fracture. Recent admission with a stage III sacral decubiti that was recently debrided on September [address] Adams. Patient was on antibiotics. The patient was discharged to rehab. At rehab she became weaker and developed worsening pain of the left arm she was confused she was sent to the dialysis center today where they felt that she had shortness of breath and confusion and the patient was sent to the emergency room. The patient is being admitted again for question of infection and she has hyponatremia and hyperkalemia. Renal is consulted for ESRD care. 1. ESRD will dialyze today on a 2K bath attempt to remove fluids as tolerated. 2. Hyponatremia can be from renal failure we will check a cortisol level, and TSH. 3. Hyperkalemia monitor with dialysis. 4. Assess for infection patient is currently on doxycycline and Augmentin. 5. Depression on Lexapro 6. Hypothyroidism on levothyroxine. 6. Anemia hemoglobin is stable. Recent very high ferritin. Can use Epogen on dialysis. 7. Blood pressure on low side will decrease medications. BNP elevated however hypotensive will attempt to remove fluids as tolerated. The patient patient was discharged on sedatives and multiple meds. Try to symbolize her medication regimen. The patient was seen via A/V equipment with the help of the nurse. Exam with nurse as telehealth visit. Consent for hemodialysis and telehealth was obtained from the patient and her mother. Plan See above. Consult Attestations 2 Medical Necessity Statement: ESRD, hypertension natremia, hyperkalemia Time Spent in Patient Care: Greater than 35 minutes (>than 50% of time spent in counselling and/or direct pt care on unit) . Coding Level of Care Code Acute Code for [facility] Diagnoses ESRD (end stage renal disease) N18.6
[2023-09-16] MEDS: calcium chloride 10% Syr 10 mL 1 GM IVP (11:40)
[2023-09-16] MEDS: insulin regular-human 100 units/1 mL 10 UNIT IVP (11:45)
--- NOTE | 2023-09-16 12:01 | USCV_ITS ---
Elvi Kaiser Age: 57 Gender: F : 1965 Exam Date: 09/16/2023 14:37 Ordering Phys: Basil Siddiqui MD Technologist: Jose Baca Exam Location: [facility] [place] Indication: elevated bnp BP: 114 / 82 HR: 81 Rhythm: Sinus Technical Quality: MEASUREMENTS (Male / Female) Normal Values 2D ECHO LV Diastolic Diameter PLAX 3.6 cm 4.2 - 5.9 / 3.9 - 5.3 cm IVS Diastolic Thickness 1.3 cm 0.6 - 1.0 / 0.6 - 0.9 cm IVS Systolic Thickness 1.9 cm LVPW Diastolic Thickness 1.5 cm 0.6 - 1.0 / 0.6 - 0.9 cm LVPW Systolic Thickness 1.6 cm LVOT Diameter 2.0 cm LV Ejection Fraction 2D Teich 86.9 % LV Ejection Fraction MOD 2C 46.0 % LV Ejection Fraction 2C AL 43.9 % LA Diameter 3.4 cm RA Systolic Volume 4C AL 58.3 ml RA Systolic Volume 4C MOD 58.6 ml Aorta at Sinotubular Diameter 2.4 cm IVC Diameter 1.9 cm M-MODE LA Ao Ratio MM 0.4 AV Cusp Separation MM 3.5 cm DOPPLER AV Peak Velocity 157.7 cm/s LVOT Peak Velocity 77.0 cm/s AV Area Cont Eq vti 1.7 cm squared AV Area Cont Eq pk 1.6 cm squared MV Peak Velocity 136.0 cm/s MV Area PHT 3.7 cm squared Mitral E to A Ratio 1.1 PV Peak Velocity 90.7 cm/s RV Ejection Time 0.3 s FINDINGS Left Ventricle Normal left ventricular size with a slightly diminished ejection fraction, EF 45%. Mild to moderate concentric left-ventricular hypertrophy.mild diffuse hypokinesia of the left ventricle. Grade III/IV diastolic dysfunction (restrictive filling pattern), severely elevated filling pressures. Right Ventricle The right ventricle is normal in size and function. Right Atrium The right atrium is normal in size. Left Atrium The left atrium is normal in size. Mitral Valve Moderate mitral annular calcification. Thickened mitral valve. Trace mitral valve regurgitation. Aortic Valve Thickened aortic valve Tricuspid Valve Mild tricuspid valve regurgitation. Pulmonic Valve Trace pulmonary valve regurgitation. Pericardium Normal pericardium without effusion. Aorta Normal ascending aorta dimension. IVC The inferior vena cava appears normal. CONCLUSIONS Normal left ventricular size with a slightly diminished EF 45%. Mild to moderate concentric left-ventricular hypertrophy.mild diffuse hypokinesis left-ventricular. Grade III/IV diastolic dysfunction (restrictive filling pattern), severely elevated filling pressures. Moderate mitral annular calcification. Thickened mitral valve. Trace mitral valve regurgitation. Thickened aortic valve. Mild tricuspid valve regurgitation. The PA pressure could not be calculated because of the poor Doppler signals. There is no pericardial effusion. There are no intracardiac masses. Compared to the study from 10/23/2021, there may not be a significant change Dr Merced Woods MD FACC (Electronically Signed) Final Date: 16 September 2023 15:57 S
--- NOTE | 2023-09-16 12:38 | PC.NURSE ---
blood glucose via fingerstick: 82
[2023-09-16 12:41] LABS: Glucose Point of Care 82 mg/dL (70-110)
--- NOTE | 2023-09-16 12:42 | PC.NURSE ---
@[address] ordered by Dr. Siddiqui. pt states she is anxious and will not do the scan. this nurse and CT staff attempted verbal de-escalation without improvement. Dr. Siddiqui notified of pt update.
[2023-09-16 13:28] LABS: Glucose Point of Care 61 mg/dL (70-110)
--- NOTE | 2023-09-16 13:28 | PC.NURSE ---
@1328 Pt glucose via fingerstick 61; Dr. Siddiqui notified @1330, verbal orders to infuse D10 250mL bolus.
--- NOTE | 2023-09-16 13:55 | PC.NURSE ---
Glucose via fingerstick @2996: 140
[2023-09-16 13:57] LABS: Glucose Point of Care 140 mg/dL (70-110)
--- NOTE | 2023-09-16 14:24 | ECG_ITS ---
[facility] Test Date: 2023-09-16 Pat Name: Elvi Kaiser Department: Room: 270 Gender: Female Gold Assayer: : 1965 Requested By: Jd Morillo Order Number: [id number] Doug MD: Merced Woods M.D. Measurements Intervals [place] Rate: 81 P: 60 IA: 211 QRS: -46 QRSD: 143 T: 109 QT: 442 QTc: 515 Interpretive Statements SINUS RHYTHM WITH FIRST DEGREE AV BLOCK INTRAVENTRICULAR CONDUCTION DELAY [130+ ms QRS DURATION] POSSIBLE ANTERIOR MYOCARDIAL INFARCTION , PROBABLY OLD [30 ms Q WAVE IN V3/V4, OR R < 0.2 mV IN V4] Compared to ECG 09/16/2023 09:50:49 First degree AV block now present Intraventricular conduction delay now present Left-axis deviation no longer present Right bundle-branch block no longer present T-wave abnormality no longer present Possible ischemia no longer present Myocardial infarct finding still present Electronically Signed On 09-18-2023 20:33:59 CDT by Merced Woods M.D. [id number]
[2023-09-16 14:30] LABS: Glucose Point of Care 103 mg/dL (70-110)
[2023-09-16] MEDS: heparin 5,000 unit/mL INJ 1 mL 5000 UNIT SUBCUT (15:11)
[2023-09-16] MEDS: vancomycin 1,250 MG/250 ML PIGGYBACK 200 MG IV (15:12)
[2023-09-16 16:06] LABS: Troponin 5 6HR 114.4 ng/L (0-10); Troponin 5 6HR Delta -13.6 ng/L (0-12)
--- NOTE | 2023-09-16 17:08 | PC.NURSE ---
Pt BP 82/46. Dr. Siddiqui advised. Also advised that pt is very sleepy and hard to arouse. New orders received for NS 250ml bolus x1.
[2023-09-16] MEDS: meropenem 500 MG in sodium chloride 0.9% (plus) 50 ML 100 MG IV (17:18)
[2023-09-16] MEDS: sodium chloride 0.9% 250 ML IV (17:18)
[2023-09-16 17:19] LABS: Glucose Point of Care 99 mg/dL (70-110)
[2023-09-16] MEDS: carbidopa-levodopa 25-100mg Tablet 0.5 EACH PO (18:29)
--- NOTE | 2023-09-16 19:58 | PC.HD ---
Per parachute panel joiner's orders, heparin 1000 units loading dose administered via venous needle at 1935.
[2023-09-16] MEDS: pantoprazole DR 40 mg Tablet PO (23:42)
[2023-09-17] VITALS (10 sets, daily range): BP systolic 101–136; BP diastolic 47–81; PULSE 78–86; RESP 16–20; TEMP 36.2–37.4; O2SAT 93–96
[2023-09-17] MEDS: meropenem 500 MG in sodium chloride 0.9% (plus) 50 ML 100 MG IV ×3 (02:28→22:33)
[2023-09-17 05:37] LABS: Basophils % 0.2 %; Hematocrit 27.7 % (36-47); Lymphocytes # 0.6 10^3/uL (0.8-4.8); Lymphocytes % 12.7 %; Mean Corpuscular HGB Conc 30.3 g/dL (30-55); Mean Corpuscular Hemoglobin 29.5 pg (27-33); Mean Corpuscular Volume 97.2 fl (85-98); Mean Platelet Volume 9.6 fL (7.4-10.4); Monocytes # 0.5 10^3/uL (0.2-0.9); Neutrophils # 3.72 10^3/uL (1.8-7.7); Neutrophils % 75.9 %; Nucleated Red Blood Cells % 0 %; Platelet Count 315 10^3/cmm (157-399); Red Blood Count 2.85 10^6/uL (3.85-5.65); Red Cell Distribution Width 14.6 % (12.1-15.1)
[2023-09-17] MEDS: heparin 5,000 unit/mL INJ 1 mL 5000 UNIT SUBCUT ×2 (05:44→18:05)
[2023-09-17 05:57] LABS: Alanine Aminotransferase 6 U/L (0-33); Albumin Level 2.3 g/dL (3.5-5.2); Alkaline Phosphatase 99 U/L (35-105); Anion Gap 13.3 (5-19); Aspartate Amino Transferase 19 U/L (0-32); Blood Urea Nitrogen 23 mg/dL (6-20); Carbon Dioxide 26 mmol/L (22-29); Chloride 102 mmol/L (98-107); Creatinine Clr Calc Pharmacy 19.2586; Glomerular Filtration Rate 13.4 mL/min (90-130); Glucose 71 mg/dL (65-115); Magnesium 1.9 mg/dL (1.7-2.3); Osmolality Calculated 286 mOsm/kg (285-295); Phosphorus 3.2 mg/dL (2.5-4.5); Potassium 4.3 mmol/L (3.5-5.1); Sodium 137 mmol/L (136-145); Total Bilirubin 0.3 mg/dL (0.15-1.2); Total Protein 5.3 g/dL (6.6-8.7)
--- NOTE | 2023-09-17 09:01 | P.PN_ITS ---
Subjective 2 Subjective: Patient is not confused Is she is sitting at the bedside stating that she probably had a panic attack yesterday during dialysis She was anxious this morning as well I reassured her that she is doing okay and we do not need CT head at this point Vitals/I&O/Wt Last Vital Signs Temp 97.6 F 09/17/23 07:42 Pulse 79 09/17/23 07:42 Resp 19 H 09/17/23 07:42 BP 122/73 09/17/23 07:42 Pulse Ox 96 09/17/23 07:42 O2 Del Method Room Air 09/17/23 07:42 09/16/23 09/17/23 09/17/23 22:59 06:59 14:59 Intake Total 550 / 1100 350 / 1450 240 / 240 Output Total 2350 / 2350 Balance 550 / 1100 -2000 / -900 240 / 240 Weight last 48 hrs Weight 105.823 kg Weight 98.4 kg Weight 99.79 kg Weight 99.79 kg Physical Exam 2 Narrative: No sign of focal deficit Awake and alert Sitting at the bedside Anxious appearing On room air Abdominal wall cellulitis with minimal granulation tissue Sacral ulcer wet-to-dry dressing Variable S1-S2 Currently on room air Pleasant and cooperative Urinary Catheter Management: Woodard: Cath Placed During This Visit: yes Reason for Continuing Indwelling Catheter: Other Urinary Catheter Date of Insertion: 09/16/23 Urinary Catheter Time of Insertion: 10:00 Data 09/17/23 05:07 09/17/23 05:07 Micro: Microbiology 09/16/23 09:21 Blood Culture - Preliminary Blood SPECIMEN COLLECTED 09/16/23 09:03 Blood Culture - Preliminary Blood SPECIMEN COLLECTED A&P Assessment and plan (1) Acute encephalopathy: Improved Likely related to UTI Continue antibiotics No focal deficit No need of CT head at this point (2) UTI (urinary tract infection): Patient with UTI Urine culture Continue meropenem Blood cultures already obtained (3) Sacral decubitus ulcer: Rule out osteomyelitis Afebrile Check ESR and CRP again For now continue antibiotics Recent debridement done by general surgery (4) Hyponatremia: Volume overloaded secondary to end-stage renal disease, improved after dialysis (5) Hyperkalemia: Resolved (6) Elevated troponin: No active chest pain Will wait on echo report Troponin trending down (7) ESRD (end stage renal disease): Nephrology consultation Plan Full code Heparin for DVT prophylaxis as well as SCDs. Attestations 2 Medical Necessity Statement*: Continue medical management Diagnoses Acute encephalopathy G93.40 UTI (urinary tract infection) N39.0 Sacral decubitus ulcer L89.159 Hyponatremia E87.1 Hyperkalemia E87.5 Elevated troponin R79.89 ESRD (end stage renal disease) N18.6
[2023-09-17] MEDS: clopidogrel 75 mg Tablet PO (09:15)
[2023-09-17] MEDS: atorvastatin 40 mg Tablet 80 MG PO (09:16)
[2023-09-17] MEDS: metoprolol succinate ER (24 HR) 50 mg Tablet PO (09:16)
[2023-09-17] MEDS: amlodipine 5 mg Tablet 2.5 MG PO (09:16)
[2023-09-17] MEDS: cetirizine 10 mg Tablet PO (09:16)
[2023-09-17] MEDS: levothyroxine 50 mcg Tablet PO (09:16)
[2023-09-17] MEDS: gabapentin 100 mg Capsule PO ×2 (09:16→18:04)
--- NOTE | 2023-09-17 10:18 | P.PN_ITS ---
Subjective 2 Subjective: The patient was seen and examined. The patient is feeling much better. The patient has no nausea vomiting fevers chills itching cramps or diarrhea. She had a panic attack during dialysis yesterday. However has improved. Medications: Reviewed: Yes Medication Review Details: Current Medications Acetaminophen (Acetaminophen 325 Mg Tablet) 650 mg PO Q6H PRN PRN Reason: Mild/Mod Pain Or Temp >/= 101 Amlodipine Besylate (Amlodipine 5 Mg Tablet) 2.5 mg PO DAILY [facility] Last Admin: 09/17/23 09:16 Dose: 2.5 mg Atorvastatin Calcium (Atorvastatin 40 Mg Tablet) 80 mg PO DAILY [facility] Last Admin: 09/17/23 09:16 Dose: 80 mg Carbidopa/Levodopa (Carbidopa-Levodopa 25-100mg Tablet) 0.5 each PO MoWeFr@1730 [facility] Last Admin: 09/16/23 18:29 Dose: 0.5 each Cetirizine HCl (Cetirizine 10 Mg Tablet) 10 mg PO DAILY [facility] Last Admin: 09/17/23 09:16 Dose: 10 mg Clopidogrel Bisulfate (Clopidogrel 75 Mg Tablet) 75 mg PO DAILY [facility] Last Admin: 09/17/23 09:15 Dose: 75 mg Gabapentin (Gabapentin 100 Mg Capsule) 100 mg PO BID [facility] Last Admin: 09/17/23 09:16 Dose: 100 mg Heparin Sodium (Porcine) (Heparin 5,000 Unit/Ml Inj 1 Ml) 5,000 unit SUBCUT Q12H [facility] Last Admin: 09/17/23 05:44 Dose: 5,000 unit Hydromorphone HCl (Hydromorphone 4 Mg Tablet) 2 mg PO Q8H PRN PRN Reason: Pain Last Admin: 09/17/23 09:16 Dose: 2 mg Dextrose (D10w) 250 mls @ 1,000 mls/hr IV ONCE PRN PRN Reason: HYPOGLYCEMIA Vancomycin HCl 750 mg/ Sodium (Chloride) 250 mls @ 250 mls/hr IV DIALYSIS [facility]; Protocol Meropenem 500 mg/ Sodium (Chloride) 50 mls @ 100 mls/hr IV Q8H [facility]; Protocol Last Infusion: 09/17/23 04:19 Dose: Infused Levothyroxine Sodium (Levothyroxine 50 Mcg Tablet) 50 mcg PO DAILY [facility] Last Admin: 09/17/23 09:16 Dose: 50 mcg Metoprolol Succinate (Metoprolol Succinate Er (24 Hr) 50 Mg Tablet) 50 mg PO DAILY [facility] Last Admin: 09/17/23 09:16 Dose: 50 mg Ondansetron HCl (Ondansetron 2 Mg/Ml Sdv 2 Ml) 4 mg IVP Q6H PRN PRN Reason: vomiting, or N/V if npo Pantoprazole Sodium (Pantoprazole Dr 40 Mg Tablet) 40 mg PO BEDTIME [facility] Last Admin: 09/16/23 23:42 Dose: 40 mg Ropinirole HCl (Ropinirole 1 Mg Tablet) 0.5 mg PO QPM [facility] Last Admin: 09/16/23 17:23 Dose: Not Given Vitals/I&O/Wt Last Vital Signs Temp 97.6 F 09/17/23 07:42 Pulse 79 09/17/23 07:42 Resp 19 H 09/17/23 09:16 BP 122/73 09/17/23 07:42 Pulse Ox 96 09/17/23 09:16 O2 Del Method Room Air 09/17/23 07:42 09/16/23 09/17/23 09/17/23 22:59 06:59 14:59 Intake Total 550 / 1100 350 / 1450 240 / 240 Output Total 2350 / 2350 Balance 550 / 1100 -2000 / -900 240 / 240 Weight last 48 hrs Weight 105.823 kg Weight 98.4 kg Weight 99.79 kg Weight 99.79 kg Physical Exam 2 Narrative: General exam - obese lady sitting in chair,no apparent distress, conversant HEENT: Atraumatic normocephalic. Neck is supple Cardiovascular regular rate and rhythm without murmur Lungs clear Abdomen is soft obese nontender. Extremities + b/l leg edema. LUE pain w/ movement AV fistula is noted right upper extremity with thrill and bruit. left arm limited ROM Neuro - a,a, o x 3 examined by RN -telehealth visit. Urinary Catheter Management: Woodard: Cath Placed During This Visit: yes Reason for Continuing Indwelling Catheter: Other Urinary Catheter Date of Insertion: 09/16/23 Urinary Catheter Time of Insertion: 10:00 Data 09/17/23 05:07 09/17/23 05:07 Micro: Microbiology 09/16/23 09:21 Blood Culture - Preliminary Blood NEGATIVE TO DATE 09/16/23 09:48 Urine Culture - Preliminary Urine,Clean Catch 09/16/23 09:03 Blood Culture - Preliminary Blood NEGATIVE TO DATE A&P Assessment and plan (1) ESRD (end stage renal disease): 57-year-old lady ESRD on dialysis Tuesday and Tuesday. The patient had 2 recent hospitalizations for left humeral fracture. Recent admission with a stage III sacral decubiti that was recently debrided on September [address] Adams. Patient was on antibiotics. 1. ESRD -s/p HD yesterday. cont MWF 2. UTI on meropenem. check vanco levels 3. sacral decubitus ulcer- s/p recent I and D 4. Anemia- recent very high ferritin. Can use Epogen 5. hypoalbuminemia- from infections. she needs protein in diet 6. Hypothyroidism on levothyroxine. recebt tsh 2.34 7. The patient patient was discharged on sedatives and multiple meds. Try to simlize her medication regimen. The patient was seen via A/V equipment with the help of the nurse. Exam with nurse as telehealth visit. Consent for hemodialysis and telehealth was obtained from the patient and her mother. Plan See above. Attestations 2 Medical Necessity Statement*: per hospitalist Time Spent in Patient Care: 16 - 35 minutes (>than 50% of time sp ent in counselling and/or direct pt care on unit) . Coding Level of Care Code Acute Code for g [facility]wd Diagnoses ESRD (end stage renal disease) N18.6
[2023-09-17] MEDS: acetaminophen 325 mg Tablet 650 MG PO (18:04)
[2023-09-17] MEDS: ropinirole 1 mg Tablet 0.5 MG PO (18:04)
[2023-09-17] MEDS: pantoprazole DR 40 mg Tablet PO (22:31)
[2023-09-18] VITALS (8 sets, daily range): BP systolic 105–137; BP diastolic 53–77; PULSE 72–84; RESP 17–20; TEMP 36.1–36.8; O2SAT 92–98
[2023-09-18] MEDS: meropenem 500 MG in sodium chloride 0.9% (plus) 50 ML 100 MG IV ×3 (04:06→20:56)
[2023-09-18] MEDS: heparin 5,000 unit/mL INJ 1 mL 5000 UNIT SUBCUT (04:07)
[2023-09-18 06:04] LABS: Basophils % 0.2 %; Hematocrit 29.8 % (36-47); Lymphocytes # 0.8 10^3/uL (0.8-4.8); Mean Corpuscular HGB Conc 28.9 g/dL (30-55); Mean Corpuscular Hemoglobin 30.4 pg (27-33); Mean Corpuscular Volume 105.3 fl (85-98); Mean Platelet Volume 9.3 fL (7.4-10.4); Monocytes # 0.7 10^3/uL (0.2-0.9); Monocytes % 11.6 %; Neutrophils # 4.13 10^3/uL (1.8-7.7); Neutrophils % 73.8 %; Nucleated Red Blood Cells % 0 %; Platelet Count 307 10^3/cmm (157-399); Red Blood Count 2.83 10^6/uL (3.85-5.65); Red Cell Distribution Width 14.8 % (12.1-15.1); White Blood Count 5.59 10^3/uL (3.29-11.43)
[2023-09-18 06:16] LABS: Vancomycin Random 10.5 ug/mL (20.0-40.0)
[2023-09-18 06:30] LABS: Alanine Aminotransferase 8 U/L (0-33); Albumin Level 2.3 g/dL (3.5-5.2); Alkaline Phosphatase 104 U/L (35-105); Anion Gap 15.5 (5-19); Aspartate Amino Transferase 21 U/L (0-32); Blood Urea Nitrogen 28 mg/dL (6-20); Carbon Dioxide 25 mmol/L (22-29); Chloride 97 mmol/L (98-107); Glucose 84 mg/dL (65-115); Magnesium 1.9 mg/dL (1.7-2.3); Osmolality Calculated 281 mOsm/kg (285-295); Phosphorus 3.8 mg/dL (2.5-4.5); Potassium 4.5 mmol/L (3.5-5.1); Sodium 133 mmol/L (136-145); Total Bilirubin 0.3 mg/dL (0.15-1.2); Total Protein 5.3 g/dL (6.6-8.7)
[2023-09-18 06:46] LABS: Creatinine Clr Calc Pharmacy 14.2529
--- NOTE | 2023-09-18 08:08 | PM.PN ---
Subjective Subjective: c/o back pain, pain in groins. rash by pannus and under breasts. more lethargic. no n/v/f/c/cp/curran/d Medications: Reviewed: Yes Medication Review Details: Current Medications Acetaminophen (Acetaminophen 325 Mg Tablet) 650 mg PO Q6H PRN PRN Reason: Mild/Mod Pain Or Temp >/= 101 Last Admin: 09/17/23 18:04 Dose: 650 mg Atorvastatin Calcium (Atorvastatin 40 Mg Tablet) 80 mg PO DAILY [facility] Last Admin: 09/17/23 09:16 Dose: 80 mg Carbidopa/Levodopa (Carbidopa-Levodopa 25-100mg Tablet) 0.5 each PO MoWeFr@1730 [facility] Last Admin: 09/16/23 18:29 Dose: 0.5 each Cetirizine HCl (Cetirizine 10 Mg Tablet) 10 mg PO DAILY [facility] Last Admin: 09/17/23 09:16 Dose: 10 mg Clopidogrel Bisulfate (Clopidogrel 75 Mg Tablet) 75 mg PO DAILY [facility] Last Admin: 09/17/23 09:15 Dose: 75 mg Gabapentin (Gabapentin 100 Mg Capsule) 100 mg PO BID [facility] Last Admin: 09/17/23 18:04 Dose: 100 mg Heparin Sodium (Porcine) (Heparin 5,000 Unit/Ml Inj 1 Ml) 5,000 unit SUBCUT Q12H [facility] Last Admin: 09/18/23 04:07 Dose: 5,000 unit Hydromorphone HCl (Hydromorphone 4 Mg Tablet) 2 mg PO Q8H PRN PRN Reason: Pain Last Admin: 09/17/23 22:31 Dose: 2 mg Dextrose (D10w) 250 mls @ 1,000 mls/hr IV ONCE PRN PRN Reason: HYPOGLYCEMIA Vancomycin HCl 750 mg/ Sodium (Chloride) 250 mls @ 250 mls/hr IV DIALYSIS [facility]; Protocol Meropenem 500 mg/ Sodium (Chloride) 50 mls @ 100 mls/hr IV Q8H [facility]; Protocol Last Infusion: 09/18/23 04:40 Dose: Infused Levothyroxine Sodium (Levothyroxine 50 Mcg Tablet) 50 mcg PO DAILY [facility] Last Admin: 09/17/23 09:16 Dose: 50 mcg Metoprolol Succinate (Metoprolol Succinate Er (24 Hr) 50 Mg Tablet) 50 mg PO DAILY [facility] Last Admin: 09/17/23 09:16 Dose: 50 mg Ondansetron HCl (Ondansetron 2 Mg/Ml Sdv 2 Ml) 4 mg IVP Q6H PRN PRN Reason: vomiting, or N/V if npo Pantoprazole Sodium (Pantoprazole Dr 40 Mg Tablet) 40 mg PO BEDTIME [facility] Last Admin: 09/17/23 22:31 Dose: 40 mg Ropinirole HCl (Ropinirole 1 Mg Tablet) 0.5 mg PO QPM [facility] Last Admin: 09/17/23 18:04 Dose: 0.5 mg Vitals/I&O/Wt Last Vital Signs Temp 97.0 F L 09/18/23 07:41 Pulse 82 09/18/23 07:41 Resp 19 H 09/18/23 07:41 BP 118/77 09/18/23 07:41 Pulse Ox 98 09/18/23 07:41 O2 Del Method Room Air 09/18/23 07:41 09/17/23 09/18/23 09/18/23 22:59 06:59 14:59 Intake Total 220 / 750 Balance 220 / 750 Weight last 48 hrs Weight 97.386 kg Weight 105.823 kg Weight 98.4 kg Weight 99.79 kg Weight 99.79 kg Physical Exam Narrative: General exam - obese lady lying in bed, no apparent respiratory distress HEENT: Atraumatic normocephalic. Neck is supple Cardiovascular regular rate and rhythm without murmur Lungs clear Abdomen is soft obese nontender. Extremities + b/l leg edema. LUE pain w/ movement AV fistula is noted right upper extremity with thrill and bruit. left arm limited ROM skin- back bandage. skin breakdown under her breasts, and by pannus in groin area. Neuro - a,a, o x 2, weak examined by RN -telehealth visit. Urinary Catheter Management: Woodard: Cath Placed During This Visit: yes Reason for Continuing Indwelling Catheter: Other Urinary Catheter Date of Insertion: 09/16/23 Urinary Catheter Time of Insertion: 10:00 Data 09/18/23 05:48 09/18/23 05:48 Micro: Microbiology 09/16/23 09:21 Blood Culture - Preliminary Blood NEGATIVE TO DATE 09/16/23 09:48 Urine Culture - Preliminary Urine,Clean Catch 09/16/23 09:03 Blood Culture - Preliminary Blood NEGATIVE TO DATE A&P Assessment and plan (1) ESRD (end stage renal disease): 57-year-old lady ESRD on dialysis Tuesday and Tuesday. The patient had 2 recent hospitalizations for left humeral fracture. Recent admission with a stage III sacral decubiti that was recently debrided on September [address] Adams. Patient was on antibiotics. 1. ESRD - cont MWF 2. UTI on meropenem. check vanco levels - keep under 19 3. sacral decubitus ulcer- s/p recent I and D 4. Anemia- recent very high ferritin. Can use Epogen -s/p 10,000 units on 09/17/23 5. hypoalbuminemia- from infections. she needs protein in diet 6. Hypothyroidism on levothyroxine. recebt tsh 2.34 7. The patient patient was discharged on sedatives and multiple meds. Try to simlize her medication regimen. she is lethargic again 8. hypotension- if okay w/ medicine- decrease her beta brock The patient was seen via A/V equipment with the help of the nurse. Exam with nurse as telehealth visit. Consent for hemodialysis and telehealth was obtained from the patient and her mother. Plan See above. Attestations Medical Necessity Statement*: lethargy, ESRD, anemia- per medicine Time Spent in Patient Care: 16 - 35 minutes (>than 50% of time spent in counselling and/or direct pt care on unit). Coding Level of Care Code Acute Code for g Fwd Diagnoses ESRD (end stage renal disease) N18.6
[2023-09-18] MEDS: atorvastatin 40 mg Tablet 80 MG PO (09:45)
[2023-09-18] MEDS: clopidogrel 75 mg Tablet PO (09:45)
[2023-09-18] MEDS: nystatin cream 30 gm 1 APPLIC TOPICAL ×2 (09:45→17:49)
[2023-09-18] MEDS: cetirizine 10 mg Tablet PO (09:45)
[2023-09-18] MEDS: metoprolol succinate ER (24 HR) 50 mg Tablet PO (09:45)
[2023-09-18] MEDS: levothyroxine 50 mcg Tablet PO (09:45)
[2023-09-18] MEDS: gabapentin 100 mg Capsule PO ×2 (09:45→17:49)
[2023-09-18] MEDS: acetaminophen 325 mg Tablet 650 MG PO ×2 (09:46→17:49)
[2023-09-18] MEDS: bacitracin ointment Pkt 1 EACH TOPICAL ×3 (09:46→20:50)
--- NOTE | 2023-09-18 10:31 | P.PN_ITS ---
Subjective 2 Subjective: Awake and alert Patient is not confused at all Requested general surgery for abdominal wall cellulitis evaluation Vitals/I&O/Wt Last Vital Signs Temp 97.0 F L 09/18/23 07:41 Pulse 82 09/18/23 07:41 Resp 19 H 09/18/23 07:41 BP 118/77 09/18/23 07:41 Pulse Ox 98 09/18/23 07:41 O2 Del Method Room Air 09/18/23 07:41 09/17/23 09/18/23 09/18/23 22:59 06:59 14:59 Intake Total 220 / 750 Balance 220 / 750 Weight last 48 hrs Weight 97.386 kg Weight 105.823 kg Weight 98.4 kg Weight 99.79 kg Physical Exam 2 Narrative: Patient is awake and alert No signs of confusion Nonfocal neuroexam Abdominal wall cellulitis with pus around the lateral abdominal pannus There is no granulation tissue at all Nonhealing ulcer Purulent cellulitis Sacral ulcer stage IV Patient looks euvolemic Currently on room air Urinary Catheter Management: Woodard: Cath Placed During This Visit: yes Reason for Continuing Indwelling Catheter: Other Urinary Catheter Date of Insertion: 09/16/23 Urinary Catheter Time of Insertion: 10:00 Data 09/18/23 05:48 09/18/23 05:48 Micro: Microbiology 09/16/23 09:21 Blood Culture - Preliminary Blood NEGATIVE TO DATE 09/16/23 09:48 Urine Culture - Preliminary Urine,Clean Catch 09/16/23 09:03 Blood Culture - Preliminary Blood NEGATIVE TO DATE A&P Assessment and plan (1) Cystitis: (2) UTI (urinary tract infection): (3) ESRD (end stage renal disease): (4) Acute encephalopathy: (5) Sacral decubitus ulcer, stage III: Plan Abdominal wall cellulitis Purulent cellulitis Currently on vancomycin and meropenem Will request general surgery for debridement of abdominal pannus cellulitis Sacral ulcer status post debridement during last admission No need of wound VAC at this point End-stage renal disease Tuesday Metabolic encephalopathy I do suspect sleep apnea will request overnight pulse ox She has cognitive impairment She is not confused this morning Please note she is waking up a little bit groggy and confused which gets better after a few minutes Full code Attestations 2 Medical Necessity Statement*: Continue medical management Diagnoses Cystitis N30.90 UTI (urinary tract infection) N39.0 ESRD (end stage renal disease) N18.6 Acute encephalopathy G93.40 Sacral decubitus ulcer, stage III L89.153
--- NOTE | 2023-09-18 11:09 | PM.CONSULT ---
Providers/Reason For Consult Consulting Physician/Specialty*: General surgery Reason for Consult*: Abdominal wall pressure ulcer Attending Physician: Jigar Flanagan MD Primary Care Provider: Vivienne Schulz MD History of Present Illness History of Present Illness Elvi Kaiser is a 57 year old female with multiple medical comorbidities who was admitted to the hospital with altered mental status. During this hospital admission she was noted to have lower abdominal wall cellulitis as well as a 10 x 3 cm area of eschar formation that most likely represents a pressure sore of the abdominal pannus. The wound around this area is also macerated consistent with pressure and humid environment. Patient also has a history of a sacral decubitus ulcer that was recently debrided and will require follow-up. Medications/Allergies Home Medications Medication Instructions Recorded Confirmed Last Taken Type carbidopa 25 mg-levodopa 100 mg See Rx Instructions .Route .COMPLEX 05/20/20 09/16/23 08/22/23 History tablet ferric citrate 210 mg iron tablet 630 mg PO TID@08,12,20 05/20/20 09/16/23 08/23/23 History (Auryxia) ropinirole 0.5 mg tablet 0.5 mg PO QPM 06/21/20 09/16/23 08/23/23 History blood-glucose meter,continuous #1 ea 09/24/21 09/16/23 Unknown Rx (Dexcom G6 [employer]) blood-glucose sensor (Dexcom G6 #9 ea 09/24/21 09/16/23 Unknown Rx Sensor device) clopidogrel 75 mg tablet 75 mg PO DAILY #30 tabs 11/27/21 09/16/23 08/23/23 Rx blood-glucose transmitter (Dexcom #3 ea 12/24/21 09/16/23 Unknown Rx G6 Transmitter device) glucagon 1 mg solution for 1 mg SUBCUT Q20M PRN hypoglycemia 12/24/21 09/16/23 Unknown Rx injection (Glucagon Emergency Kit) #1 ea amlodipine 2.5 mg tablet (Norvasc) 2.5 mg PO DAILY 09/28/22 09/16/23 08/23/23 History gabapentin 100 mg capsule 100 mg PO TID #90 caps 04/21/23 09/16/23 08/23/23 Rx levothyroxine 50 mcg tablet 50 mcg PO DAILY 08/24/23 09/16/23 08/23/23 History metoprolol succinate 50 mg 50 mg PO DAILY 08/24/23 09/16/23 08/23/23 History tablet,extended release 24 hr cyclobenzaprine 10 mg tablet 10 mg PO Q8H PRN MUSCLE SPASMS #14 09/04/23 09/16/23 Unknown Rx tabs atorvastatin 80 mg tablet 80 mg PO DAILY 09/06/23 09/16/23 Unknown History amoxicillin 875 mg-potassium 1 tab PO BID #10 tabs 09/12/23 09/16/23 Unknown Rx clavulanate 125 mg tablet doxycycline monohydrate 100 mg 100 mg PO BID #10 tabs 09/12/23 09/16/23 Unknown Rx tablet cetirizine 10 mg tablet 10 mg PO DAILY 09/16/23 09/16/23 Unknown History collagenase clostridium histo. 250 1 applic topical BID 09/16/23 09/16/23 Unknown History unit/gram topical ointment (Santyl) diphenhydramine HCl 25 mg capsule 25 mg PO BID PRN ALLERGIES 09/16/23 09/16/23 Unknown History (Benadryl) hydromorphone 2 mg tablet 2 mg PO Q8H PRN Pain 09/16/23 09/16/23 Unknown History ibuprofen 200 mg capsule (Advil 200 mg PO .Q4-6H PRN Pain 09/16/23 09/16/23 Unknown History Liqui-Gel) omeprazole 20 mg capsule,delayed 20 mg PO BEDTIME 09/16/23 09/16/23 Unknown History release Allergies Allergy/AdvReac Type Severity Reaction Status Date / Time codeine Allergy ALGY-Hives Verified 09/07/23 07:46 fentanyl Allergy ALGY-Hives Verified 09/07/23 07:46 hydrocodone Allergy ALGY-Hives Verified 09/07/23 07:46 influenza virus vaccine qs Allergy ALGY-Hives Verified 09/07/23 07:46 [id number](65 years up) [From Fluad Quad 2019-(65y up)(PF)] Iodinated Contrast Media Allergy ALGY-Anaphy Verified 09/07/23 07:46 laxis kiwi Allergy ALGY-Anaphy Verified 09/07/23 07:46 laxis lisinopril Allergy ADR-Cough Verified 09/07/23 07:46 NSAIDS (Non-Steroidal Allergy ALGY-Hives Verified 09/07/23 07:46 Anti-Inflamma oxycodone Allergy ALGY-Hives Verified 09/07/23 07:46 pineapple Allergy ALGY-Anaphy Verified 09/07/23 07:46 laxis promethazine Allergy Unknown Verified 09/07/23 07:46 strawberry Allergy ALGY-Anaphy Verified 09/07/23 07:46 laxis tramadol Allergy ALGY-Hives Verified 09/07/23 07:46 vaccine adjuvant emulsion Allergy ALGY-Hives Verified 09/07/23 07:46 [id number] [From Mosoro 2019-(65y up)(PF)] Current Medications Generic Name Dose Route Start Last Admin Trade Name Freq PRN Reason Stop Dose Admin Acetaminophen 650 mg 09/16/23 14:28 09/18/23 09:46 Acetaminophen 325 Mg Tablet PO 650 mg Q6H PRN Administration Mild/Mod Pain Or Temp >/= 101 Atorvastatin Calcium 80 mg 09/17/23 09:00 09/18/23 09:45 Atorvastatin 40 Mg Tablet PO 80 mg DAILY [facility] Administration Bacitracin 1 each 09/18/23 09:05 09/18/23 09:46 Bacitracin Ointment Pkt TOPICAL 1 each TID [facility] Administration Protocol Carbidopa/Levodopa 0.5 each 09/16/23 17:30 09/16/23 18:29 Carbidopa-Levodopa 25-100mg Tablet PO 0.5 each MoWeFr@1730 [facility] Administration Cetirizine HCl 10 mg 09/17/23 09:00 09/18/23 09:45 Cetirizine 10 Mg Tablet PO 10 mg DAILY [facility] Administration Clopidogrel Bisulfate 75 mg 09/17/23 09:00 09/18/23 09:45 Clopidogrel 75 Mg Tablet PO 75 mg DAILY [facility] Administration Gabapentin 100 mg 09/16/23 18:00 09/18/23 09:45 Gabapentin 100 Mg Capsule PO 100 mg BID [facility] Administration Heparin Sodium (Porcine) 5,000 unit 09/16/23 16:00 09/18/23 04:07 Heparin 5,000 Unit/Ml Inj 1 Ml SUBCUT 5,000 unit Q12H [facility] Administration Hydromorphone HCl 2 mg 09/16/23 14:28 09/17/23 22:31 Hydromorphone 4 Mg Tablet PO 2 mg Q8H PRN Administration Pain Meropenem 500 mg/ Sodium 50 mls @ 100 mls/hr 09/16/23 18:00 09/18/23 04:40 Chloride IV Infused Q8H [facility] Infusion Protocol Levothyroxine Sodium 50 mcg 09/17/23 09:00 09/18/23 09:45 Levothyroxine 50 Mcg Tablet PO 50 mcg DAILY [facility] Administration Metoprolol Succinate 50 mg 09/17/23 09:00 09/18/23 09:45 Metoprolol Succinate Er (24 Hr) 50 Mg Tablet PO 50 mg DAILY [facility] Administration Nystatin 1 applic 09/18/23 09:00 09/18/23 09:45 Nystatin Cream 30 Gm TOPICAL 1 applic BID [facility] Administration Pantoprazole Sodium 40 mg 09/16/23 21:00 09/17/23 22:[address] 40 Mg Tablet PO 40 mg BEDTIME [facility] Administration Ropinirole HCl 0.5 mg 09/16/23 18:00 09/17/23 18:04 Ropinirole 1 Mg Tablet PO 0.5 mg QPM [facility] Administration PFSH Acute PFSH: Medical History ESRD (end stage renal disease) Fracture of greater tuberosity of left humerus Fracture of humeral head, left, closed Stage III pressure ulcer of sacral region Decubitus ulcer of sacral region, unstageable Abdominal wall cellulitis Failure to thrive Weakness Toe fracture Contusion of right foot ESRD (end stage renal disease) Rash Seropositive rheumatoid arthritis Left foot pain Long-term insulin use Diabetes type 2, uncontrolled Appetite loss MCI (mild cognitive impairment) Hypothyroidism Insulin dependent type 2 diabetes mellitus COVID-19 Hypertension Anxiety ESRD (end stage renal disease) Diabetes Hyperlipidemia Chronic back pain De Quervain's tenosynovitis Surgical History Status post colonoscopy S/P dialysis catheter insertion Removed 07/14/20 S/P arteriovenous (AV) fistula creation History of temporal artery biopsy H/O dilation and curettage H/O section Hx of cholecystectomy History of appendectomy History of carpal tunnel repair H/O neck surgery fusion Family History Father Bleeding disorder Other Diabetes Heart disease Hyperlipidemia Hypertension Kidney problem Migraines Stroke Denies family history of Anesthesia complication Social History Smoking and tobacco/nicotine status: never used tobacco/nicotine Second hand smoke exposure: No Alcohol intake: never Substance/Drug Use: never Adopted: No Caregiver/support person: Yes Lives independently: Yes Household members: family Housing: House Marital status: Single Highest education level completed: High School Graduate service: No Current occupational status: disabled Current occupational exposures/hazards: No Pets and animals: Yes Pets & animals: dog(s) Sexually active: No Do you think of yourself as: Straight/Heterosexual Current gender identity: Female Sabina/Jewish: Yazidism Special sabina needs: No Agree to transfusion: No Vitals/I&O/Wt Last Vital Signs Temp 97.0 F L 09/18/23 07:41 Pulse 82 09/18/23 07:41 Resp 19 H 09/18/23 07:41 BP 118/77 09/18/23 07:41 Pulse Ox 98 09/18/23 07:41 O2 Del Method Room Air 09/18/23 07:41 09/17/23 09/18/23 09/18/23 22:59 06:59 14:59 Intake Total 220 / 750 Balance 220 / 750 Weight last 48 hrs Weight 214 lb 11.2 oz Weight 233 lb 4.8 oz Weight 216 lb 14.958 oz Weight 220 lb Physical Exam GI: OTHER: Abdomen soft nontender nondistended, in the left lower quadrant right below the pannus there is a area of erythema and there is eschar of about 10 x 3 cm. There is extremely tender to palpation. Skin appears to be macerated. Extremity: NARRATIVE EXTREMITY EXAM: Sacral decubitus ulcer was not uncovered today will be evaluated in the OR tomorrow. Urinary Catheter Management: Woodard: Cath Placed During This Visit: yes Reason for Continuing Indwelling Catheter: Other Urinary Catheter Date of Insertion: 09/16/23 Urinary Catheter Time of Insertion: 10:00 Data 09/18/23 05:48 09/18/23 05:48 Micro: Microbiology 09/16/23 09:21 Blood Culture - Preliminary Blood NEGATIVE TO DATE 09/16/23 09:48 Urine Culture - Preliminary Urine,Clean Catch 09/16/23 09:03 Blood Culture - Preliminary Blood NEGATIVE TO DATE A&P Assessment and plan (1) ESRD (end stage renal disease): (2) Sacral decubitus ulcer, stage III: (3) Cellulitis: Plan Is a 57-year-old female with multiple medical problems admitted with altered mental status FOUND to have pressure ulcers of the abdominal wall as well as the sacral region. I was consulted for debridement. I think patient will benefit from debridement of abdominal wall is also a sacral decubitus ulcer. I have discussed all risk and benefits of the procedure including the risk of infection, chronic wound, nonhealing, need for additional procedures and continues follow-up, injury to surrounding structures, soft tissue infection sepsis and . Patient shows understanding wishes to proceed. We will book medications for tomorrow as patient would not tolerate the bedside debridement there is extremely tender even to light touch. Will give the patient n.p.o. after midnight for surgery -OR for debridement tomorrow -N.p.o. after midnight Coding Level of Care Code 75873 Diagnoses ESRD (end stage renal disease) N18.6 Sacral decubitus ulcer, stage III L89.153 Cellulitis L03.90
--- NOTE | 2023-09-18 16:06 | XRR_ITS ---
PROCEDURE INFORMATION: Exam: XR Left Humerus Exam date and time: 09/18/2023 5:23 PM Age: 57 years old Clinical indication: Shoulder; Left; Patient HX: Lt humerus FX; Increasing pain TECHNIQUE: Imaging protocol: Radiologic exam of the left humerus. Views: 2 or more views. COMPARISON: CR (CHEST, ) 09/05/2023 5:23 PM FINDINGS: Bones/joints: Comminuted left humeral head fracture again seen. No new fractures. Soft tissues: Moderate to marked soft tissue swelling of the left proximal upper extremity. XR/[place] [id number] IMPRESSION: Comminuted left humeral head fracture again seen.
[2023-09-18 16:18] LABS: Glucose Point of Care 71 mg/dL (70-110)
[2023-09-18] MEDS: ropinirole 1 mg Tablet 0.5 MG PO (17:49)
[2023-09-18 20:20] LABS: Glucose Point of Care 92 mg/dL (70-110)
[2023-09-18] MEDS: pantoprazole DR 40 mg Tablet PO (20:57)
[2023-09-19] VITALS (15 sets, daily range): BP systolic 111–181; BP diastolic 48–102; PULSE 80–103; RESP 14–132; TEMP 36.3–37; O2SAT 93–100
[2023-09-19 04:33] LABS: Hematocrit 27.5 % (36-47); Lymphocytes # 0.8 10^3/uL (0.8-4.8); Lymphocytes % 16.5 %; Mean Corpuscular HGB Conc 30.9 g/dL (30-55); Mean Corpuscular Hemoglobin 30.1 pg (27-33); Mean Corpuscular Volume 97.5 fl (85-98); Mean Platelet Volume 8.9 fL (7.4-10.4); Monocytes # 0.5 10^3/uL (0.2-0.9); Neutrophils # 3.27 10^3/uL (1.8-7.7); Neutrophils % 72.1 %; Nucleated Red Blood Cells % 0 %; Platelet Count 303 10^3/cmm (157-399); Red Blood Count 2.82 10^6/uL (3.85-5.65); Red Cell Distribution Width 14.9 % (12.1-15.1); White Blood Count 4.54 10^3/uL (3.29-11.43)
[2023-09-19 04:55] LABS: Vancomycin Random 10.7 ug/mL (20.0-40.0)
[2023-09-19 04:56] LABS: Alanine Aminotransferase 8 U/L (0-33); Albumin Level 2.5 g/dL (3.5-5.2); Alkaline Phosphatase 111 U/L (35-105); Anion Gap 15.9 (5-19); Aspartate Amino Transferase 22 U/L (0-32); Blood Urea Nitrogen 34 mg/dL (6-20); Calcium 8.2 mg/dL (8.5-10.5); Carbon Dioxide 26 mmol/L (22-29); Chloride 98 mmol/L (98-107); Creatinine Clr Calc Pharmacy 12.2672; Globulin 2.5 g/dL (1.3-4.6); Glomerular Filtration Rate 8.3 mL/min (90-130); Glucose 74 mg/dL (65-115); Osmolality Calculated 286 mOsm/kg (285-295); Phosphorus 4.3 mg/dL (2.5-4.5); Potassium 4.9 mmol/L (3.5-5.1); Sodium 135 mmol/L (136-145); Total Bilirubin 0.3 mg/dL (0.15-1.2)
[2023-09-19] MEDS: meropenem 500 MG in sodium chloride 0.9% (plus) 50 ML 100 MG IV (05:19)
[2023-09-19 06:12] LABS: Glucose Point of Care 75 mg/dL (70-110)
[2023-09-19] MEDS: dextrose 10% 250 ML 50 ML IV (07:16)
--- NOTE | 2023-09-19 07:40 | PM.PN ---
Subjective Subjective: feels well on dialysis. no n/v/f/c/curran/d/sob/ has some leg edema. has abdominal cellulitis for debridement today. Medications: Reviewed: Yes Medication Review Details: Current Medications Acetaminophen (Acetaminophen 325 Mg Tablet) 650 mg PO Q6H PRN PRN Reason: Mild/Mod Pain Or Temp >/= 101 Last Admin: 09/18/23 17:49 Dose: 650 mg Atorvastatin Calcium (Atorvastatin 40 Mg Tablet) 80 mg PO DAILY [facility] Last Admin: 09/18/23 09:45 Dose: 80 mg Bacitracin (Bacitracin Ointment Pkt) 1 each TOPICAL TID [facility]; Protocol Last Admin: 09/18/23 20:50 Dose: 1 each Carbidopa/Levodopa (Carbidopa-Levodopa 25-100mg Tablet) 0.5 each PO MoWeFr@1730 [facility] Last Admin: 09/16/23 18:29 Dose: 0.5 each Cetirizine HCl (Cetirizine 10 Mg Tablet) 10 mg PO DAILY [facility] Last Admin: 09/18/23 09:45 Dose: 10 mg Clopidogrel Bisulfate (Clopidogrel 75 Mg Tablet) 75 mg PO DAILY [facility] Last Admin: 09/18/23 09:45 Dose: 75 mg Collagenase (Collagenase Oint 30 Gm) 1 applic TOPICAL DAILY [facility] Gabapentin (Gabapentin 100 Mg Capsule) 100 mg PO BID [facility] Last Admin: 09/18/23 17:49 Dose: 100 mg Heparin Sodium (Porcine) (Heparin 5,000 Unit/Ml Inj 1 Ml) 5,000 unit SUBCUT Q12H [facility] Last Admin: 09/18/23 04:07 Dose: 5,000 unit Hydromorphone HCl (Hydromorphone 4 Mg Tablet) 2 mg PO Q8H PRN PRN Reason: Pain Last Admin: 09/18/23 22:12 Dose: 2 mg Dextrose (D10w) 250 mls @ 1,000 mls/hr IV ONCE PRN PRN Reason: HYPOGLYCEMIA Vancomycin HCl 750 mg/ Sodium (Chloride) 250 mls @ 250 mls/hr IV DIALYSIS [facility]; Protocol Meropenem 500 mg/ Sodium (Chloride) 50 mls @ 100 mls/hr IV Q8H [facility]; Protocol Last Infusion: 09/19/23 06:02 Dose: Infused Albumin Human (Albumin) 12.5 gm in 50 mls @ 60 mls/hr IV PRN PRN PRN Reason: Hypotension and/or symptomatic Dextrose (D10w) 250 mls @ 50 mls/hr IV .Q5H [facility] Last Admin: 09/19/23 07:16 Dose: 50 mls/hr Insulin Human Lispro (Insulin Lispro 100 Unit/1 Ml) 0 unit SUBCUT WM&BEDTIME [facility]; Protocol Last Admin: 09/18/23 20:56 Dose: Not Given Levothyroxine Sodium (Levothyroxine 50 Mcg Tablet) 50 mcg PO DAILY [facility] Last Admin: 09/18/23 09:45 Dose: 50 mcg Metoprolol Succinate (Metoprolol Succinate Er (24 Hr) 50 Mg Tablet) 50 mg PO DAILY [facility] Last Admin: 09/18/23 09:45 Dose: 50 mg Nystatin (Nystatin Cream 30 Gm) 1 applic TOPICAL BID [facility] Last Admin: 09/18/23 17:49 Dose: 1 applic Ondansetron HCl (Ondansetron 2 Mg/Ml Sdv 2 Ml) 4 mg IVP Q6H PRN PRN Reason: vomiting, or N/V if npo Pantoprazole Sodium (Pantoprazole Dr 40 Mg Tablet) 40 mg PO BEDTIME [facility] Last Admin: 09/18/23 20:57 Dose: 40 mg Ropinirole HCl (Ropinirole 1 Mg Tablet) 0.5 mg PO QPM [facility] Last Admin: 09/18/23 17:49 Dose: 0.5 mg Vitals/I&O/Wt Last Vital Signs Temp 98.3 F 09/19/23 03:49 Pulse 80 09/19/23 03:49 Resp 19 H 09/19/23 03:49 BP 111/56 09/19/23 03:49 Pulse Ox 95 09/19/23 03:49 O2 Del Method Room Air 09/19/23 03:49 09/18/23 09/19/23 09/19/23 22:59 06:59 14:59 Intake Total 50 / 100 50 / 150 Output Total 100 / 100 Balance -50 / 0 50 / 50 Weight last 48 hrs Weight 99.654 kg Weight 97.386 kg Physical Exam Narrative: General exam - obese lady lying in bed, no apparent respiratory distress HEENT: ecchymosis by eyes. Neck is supple Cardiovascular regular rate and rhythm without murmur Lungs clear Abdomen is soft obese nontender. Extremities + 1+ b/l leg edema. LUE pain w/ movement AV fistula is noted right upper extremity with thrill and bruit. left arm limited ROM skin- back bandage. skin breakdown under her breasts, and by pannus in groin area. Neuro - a,a, o x 2-3. more awake and interactive. still weak examined by RN -telehealth visit. Urinary Catheter Management: Woodard: Cath Placed During This Visit: yes Reason for Continuing Indwelling Catheter: Other Urinary Catheter Date of Insertion: 09/16/23 Urinary Catheter Time of Insertion: 10:00 Data 09/19/23 04:20 09/19/23 04:20 Micro: Microbiology 09/16/23 09:48 Urine Culture - Final Urine,Clean Catch A&P Assessment and plan (1) ESRD (end stage renal disease): 57-year-old lady ESRD on dialysis Tuesday and Tuesday. The patient had 2 recent hospitalizations for left humeral fracture. Recent admission with a stage III sacral decubiti that was recently debrided on September [address] Adams. Patient was on antibiotics. 1. ESRD - cont MWF- hd now 2. UTI on meropenem. check vanco levels - keep under 19- currently 10- redose 3. sacral decubitus ulcer- s/p recent I and D -for abd wall debridement today 4. Anemia- recent very high ferritin. Can use Epogen -s/p 10,000 units on 09/17/23, redose donna 5. hypoalbuminemia- from infections. she needs protein in diet 6. Hypothyroidism on levothyroxine. recebt tsh 2.34 7. The patient patient was discharged on sedatives and multiple meds. Try to simplize her medication regimen. 8. hypotension- if okay w/ medicine- decrease her beta brock The patient was seen via A/V equipment with the help of the nurse. Exam with nurse as telehealth visit. Consent for hemodialysis and telehealth was obtained from the patient and her mother. Plan See above. Attestations Medical Necessity Statement*: hd today, abd wall debridement Time Spent in Patient Care: 16 - 35 minutes (>than 50% of time spent in counselling and/or direct pt care on unit). Coding Level of Care Code Acute Code for Chg Fwd Diagnoses ESRD (end stage renal disease) N18.6
[2023-09-19] MEDS: atorvastatin 40 mg Tablet 80 MG PO (09:00)
[2023-09-19] MEDS: metoprolol succinate ER (24 HR) 50 mg Tablet 25 MG PO (09:00)
[2023-09-19] MEDS: levothyroxine 50 mcg Tablet PO (09:00)
[2023-09-19] MEDS: gabapentin 100 mg Capsule PO (09:00)
[2023-09-19] MEDS: cetirizine 10 mg Tablet PO (09:00)
--- NOTE | 2023-09-19 09:20 | PC.CHAP ---
Pastoral Care Encounter/Spiritual Assessment Type of Contact [] Declined instrument repair supervisor visit [] Patient/Family/Request visit [] Outpatient visit [] Follow-up visit [] Physician referral [] Code/Alert [x] Routine visit [] Staff referral [] Actively dying [] Patient sleeping [] Family support [] [x] Out of room [] Palliative care [] [] Receiving care in room [] Pre-surgical visit [] Trauma [] Long length of stay [] ICU visit [] Other: Relational/Emotional Strength [] Patient feels connected with others/family/visitors/staff [] Distress [] Loneliness/isolation [] Abandonment Spirituality of Patient [] Person of Sabina [] Attends Scientologist of their Sabina [] Believes in Prayer [] Reads Bible or Advent materials [] There are Spiritual issues to be addressed Slot Service Specialist Interventions [x] Prayer [] Active listening [] Non-anxious presence [] Spiritual/emotional support [] Crisis/trauma care [] Spiritual counseling [] Bereavement support [] Provided bereavement packet [] Provided Bible/devotional materials [] Provided toy/stuffed animal, coloring book to patient or family member [] Provided Communion [] Anointing/[place] [] Salvation [] Completed spiritual assessment [] Other: Impact on Illness or Injury [] Angry [] Fearful [] Anxious [] Often cries [] Exhaustion [] Unable to work [] Unable to attend zoroastrianism [] Unable to walk/stand [] Unable to read [] Unable to drive [] Unable to eat/drink [] Unable to sleep [] Unable to be with family [] Patient intubated [] Other: Summary Time spent with patient
--- NOTE | 2023-09-19 10:28 | W.PM.OPSFHP ---
Same Day Surgery H&P Indication for Procedure/HPI DATE OF PROCEDURE: September 19, 2023 CHIEF COMPLAINT/INDICATIONFOR SURGICAL PROCEDURE: pressure ulcers of the abdominal wall and sacral region PREOP DIAGNOSIS: decubitus ulcers PLANNED PROCEDURE: Operation Date: 09/19/23 14:45 Proposed Procedures p Debridement OF ABDOMINAL WALL AND SACRUM(Not Applicable) - Willian Andrews MD Medications/Allergies* Home Medications Medication Instructions Recorded Confirmed Type carbidopa 25 mg-levodopa 100 mg See Rx Instructions .Route .COMPLEX 05/20/20 09/16/23 History tablet ferric citrate 210 mg iron tablet 630 mg PO TID@08,,05/20/20 09/16/23 History (Auryxia) ropinirole 0.5 mg tablet 0.5 mg PO QPM 06/21/20 09/16/23 History amlodipine 2.5 mg tablet (Norvasc) 2.5 mg PO DAILY 09/28/22 09/16/23 History levothyroxine 50 mcg tablet 50 mcg PO DAILY 08/24/23 09/16/23 History metoprolol succinate 50 mg 50 mg PO DAILY 08/24/23 09/16/23 History tablet,extended release 24 hr atorvastatin 80 mg tablet 80 mg PO DAILY 09/06/23 09/16/23 History cetirizine 10 mg tablet 10 mg PO DAILY 09/16/23 09/16/23 History collagenase clostridium histo. 250 1 applic topical BID 09/16/23 09/16/23 History unit/gram topical ointment (Santyl) diphenhydramine HCl 25 mg capsule 25 mg PO BID PRN ALLERGIES 09/16/23 09/16/23 History (Benadryl) hydromorphone 2 mg tablet 2 mg PO Q8H PRN Pain 09/16/23 09/16/23 History ibuprofen 200 mg capsule (Advil 200 mg PO .Q4-6H PRN Pain 09/16/23 09/16/23 History Liqui-Gel) omeprazole 20 mg capsule,delayed 20 mg PO BEDTIME 09/16/23 09/16/23 History release Allergies/Adverse Reactions Allergy/AdvReac Type Severity Reaction Status Date / Time codeine Allergy ALGY-Hives Verified 09/07/23 07:46 fentanyl Allergy ALGY-Hives Verified 09/07/23 07:46 hydrocodone Allergy ALGY-Hives Verified 09/07/23 07:46 influenza virus vaccine qs Allergy ALGY-Hives Verified 09/07/23 07:46 (65 years up) [From Paperlinks (65y up)(PF)] Iodinated Contrast Media Allergy ALGY-Anaphy Verified 09/07/23 07:46 laxis kiwi Allergy ALGY-Anaphy Verified 09/07/23 07:46 laxis lisinopril Allergy ADR-Cough Verified 09/07/23 07:46 NSAIDS (Non-Steroidal Allergy ALGY-Hives Verified 09/07/23 07:46 Anti-Inflamma oxycodone Allergy ALGY-Hives Verified 09/07/23 07:46 pineapple Allergy ALGY-Anaphy Verified 09/07/23 07:46 laxis promethazine Allergy Unknown Verified 09/07/23 07:46 strawberry Allergy ALGY-Anaphy Verified 09/07/23 07:46 laxis tramadol Allergy ALGY-Hives Verified 09/07/23 07:46 vaccine adjuvant emulsion Allergy ALGY-Hives Verified 09/07/23 07:46 MF59C.1 [From Paperlinks (65y up)(PF)] Current Medications: Generic Name Dose Route Start Last Admin Trade Name Freq PRN Reason Stop Dose Admin Acetaminophen 650 mg 09/16/23 14:28 09/18/23 17:49 Acetaminophen 325 Mg Tablet PO 650 mg Q6H PRN Administration Mild/Mod Pain Or Temp >/= 101 Atorvastatin Calcium 80 mg 09/17/23 09:00 09/18/23 09:45 Atorvastatin 40 Mg Tablet PO 80 mg DAILY JAMIE Administration Bacitracin 1 each 09/18/23 09:05 09/18/23 20:50 Bacitracin Ointment Pkt TOPICAL 1 each TID JAMIE Administration Protocol Carbidopa/Levodopa 0.5 each 09/16/23 17:30 09/16/23 18:29 Carbidopa-Levodopa 25-100mg Tablet PO 0.5 each [id number] JAMIE Administration Cetirizine HCl 10 mg 09/17/23 09:00 09/18/23 09:45 Cetirizine 10 Mg Tablet PO 10 mg DAILY JAMIE Administration Clopidogrel Bisulfate 75 mg 09/17/23 09:00 09/18/23 09:45 Clopidogrel 75 Mg Tablet PO 75 mg DAILY JAMIE Administration Gabapentin 100 mg 09/16/23 18:00 09/18/23 17:49 Gabapentin 100 Mg Capsule PO 100 mg BID JAMIE Administration Heparin Sodium (Porcine) 5,000 unit 09/16/23 16:00 09/18/23 04:07 Heparin 5,000 Unit/Ml Inj 1 Ml SUBCUT 5,000 unit Q12H JAMIE Administration Hydromorphone HCl 2 mg 09/16/23 14:28 09/18/23 22:12 Hydromorphone 4 Mg Tablet PO 2 mg Q8H PRN Administration Pain Meropenem 500 mg/ Sodium 50 mls @ 100 mls/hr 09/16/23 18:00 09/19/23 06:02 Chloride IV Infused Q8H JAMIE Infusion Protocol Dextrose 250 mls @ 50 mls/hr 09/19/23 07:00 09/19/23 07:16 D10w IV 50 mls/hr .Q5H JAMIE Administration Insulin Human Lispro 0 unit 09/18/23 18:00 09/18/23 20:56 Insulin Lispro 100 Unit/1 Ml SUBCUT Not Given WM&BEDTIME JAMIE Protocol Levothyroxine Sodium 50 mcg 09/17/23 09:00 09/18/23 09:45 Levothyroxine 50 Mcg Tablet PO 50 mcg DAILY JAMIE Administration Nystatin 1 applic 09/18/23 09:00 09/18/23 17:49 Nystatin Cream 30 Gm TOPICAL 1 applic BID JAMIE Administration Pantoprazole Sodium 40 mg 09/16/23 21:00 09/18/23 20:[address] 40 Mg Tablet PO 40 mg BEDTIME JAMIE Administration Ropinirole HCl 0.5 mg 09/16/23 18:00 09/18/23 17:49 Ropinirole 1 Mg Tablet PO 0.5 mg QPM JAMIE Administration Pertinent History/Comorbid Conditions* Medical History (Updated 09/16/23 @ 13:11 by Jd Mejía DO) ESRD (end stage renal disease) Fracture of greater tuberosity of left humerus Fracture of humeral head, left, closed Stage III pressure ulcer of sacral region Decubitus ulcer of sacral region, unstageable Abdominal wall cellulitis Failure to thrive Weakness Toe fracture Contusion of right foot ESRD (end stage renal disease) Rash Seropositive rheumatoid arthritis Left foot pain Long-term insulin use Diabetes type 2, uncontrolled Appetite loss MCI (mild cognitive impairment) Hypothyroidism Insulin dependent type 2 diabetes mellitus COVID-19 Hypertension Anxiety ESRD (end stage renal disease) Diabetes Hyperlipidemia Chronic back pain De Quervain's tenosynovitis Surgical History (Updated 07/14/20 @ 11:14 by Familia Elaine MD) Status post colonoscopy S/P dialysis catheter insertion Removed 07/14/20 S/P arteriovenous (AV) fistula creation History of temporal artery biopsy H/O dilation and curettage H/O section Hx of cholecystectomy History of appendectomy History of carpal tunnel repair H/O neck surgery fusion Family History (Updated 05/01/19 @ 14:43 by Ewa Dooley RN) Diabetes Heart disease Migraines Hyperlipidemia Kidney problem Bleeding disorder Father Hypertension Stroke Denies family history of Anesthesia complication Social History Smoking and tobacco/nicotine status: never used tobacco/nicotine Second hand smoke exposure: No Alcohol intake: never Substance/Drug Use: never Adopted: No Caregiver/support person: Yes Lives independently: Yes Household members: family Housing: House Marital status: Single Highest education level completed: High School Graduate service: No Current occupational status: disabled Current occupational exposures/hazards: No Pets and animals: Yes Pets & animals: dog(s) Sexually active: No Do you think of yourself as: Straight/Heterosexual Current gender identity: Female Sabina/Congregation: Jainism Special sabina needs: No Agree to transfusion: No Pertinent Exam Findings alert, oriented x 3, clear to auscultation bilaterally, regular rate & rhythm and operative site marked Recommendations Surgery/Procedure today Coding Level of Care Code Acute Code for Chg Fwd
--- NOTE | 2023-09-19 11:26 | PM.PN ---
Subjective Subjective: Patient does have sleep apnea evident on overnight pulse ox study Every morning in the hospital she would wake up groggy and then gets better within the next 1 to 2 hours Going for debridement of abdominal wall cellulitis Plan to discharge her back to half-way once she gets authorization likely on Tuesday Vitals/I&O/Wt Last Vital Signs Temp 97.5 F L 09/19/23 07:58 Pulse 82 09/19/23 07:58 Resp 19 H 09/19/23 07:58 BP 132/74 09/19/23 07:58 Pulse Ox 96 09/19/23 07:58 O2 Del Method Room Air 09/19/23 07:58 09/18/23 09/19/23 09/19/23 22:59 06:59 14:59 Intake Total 50 / 100 50 / 150 Output Total 100 / 100 Balance -50 / 0 50 / 50 Weight last 48 hrs Weight 99.654 kg Weight 97.386 kg Physical Exam Narrative: Patient is awake and alert Getting dialyzed Abdominal wall cellulitis with purulent necrotic material left side abdominal pannus Sacral area ulcer no active drainage Pleasant and cooperative Nonfocal neuroexam Laying supine Clinically does not look fluid overloaded No sign of compartment syndrome left arm Urinary Catheter Management: Woodard: Cath Placed During This Visit: yes Reason for Continuing Indwelling Catheter: Other Urinary Catheter Date of Insertion: 09/16/23 Urinary Catheter Time of Insertion: 10:00 Data 09/19/23 04:20 09/19/23 04:20 Micro: Microbiology 09/16/23 09:48 Urine Culture - Final Urine,Clean Catch A&P Assessment and plan (1) Elevated troponin: (2) Hyponatremia: (3) ESRD (end stage renal disease): (4) UTI (urinary tract infection): (5) Cystitis: (6) Cellulitis: (7) Sacral decubitus ulcer, stage III: Plan Patient going for debridement of abdominal wall cellulitis Continue antibiotics Cultures negative to date, afebrile Metabolic encephalopathy is related to hypoxia related to sleep apnea Will request overnight oxygen versus CPAP at the half-way Going for debridement today, most likely she will be able to go back to half-way on Tuesday versus Tuesday Continue dialysis as per the schedule Hemoglobin stable No leukocytosis, afebrile, Urine cultures negative to date, multi microorganism infection from sacral area wound Check hemoglobin A1c, ESR, CRP Attestations Medical Necessity Statement*: Continue medical management: Possible discharge in next 24 to 48 hours Diagnoses Elevated troponin R79.89 Hyponatremia E87.1 ESRD (end stage renal disease) N18.6 UTI (urinary tract infection) N39.0 Cystitis N30.90 Cellulitis L03.90 Sacral decubitus ulcer, stage III L89.153
[2023-09-19 11:32] LABS: Glucose Point of Care 71 mg/dL (70-110)
--- NOTE | 2023-09-19 11:57 | PC.SOCIAL ---
IMM Updated Updated pt on IMM. No questions voiced. Provided pt a copy. Initialed, dated, & timed a copy & placed in chart.
[2023-09-19 12:08] LABS: Erythrocyte Sedimentation Rate 19 mm/hr (0-15)
[2023-09-19 12:24] LABS: C Reactive Protein 67.3 mg/L (0.0-4.9)
[2023-09-19] MEDS: bacitracin ointment Pkt 1 EACH TOPICAL (12:24)
[2023-09-19] MEDS: nystatin cream 30 gm 1 APPLIC TOPICAL (12:24)
[2023-09-19] MEDS: acetaminophen 325 mg Tablet 650 MG PO (12:26)
[2023-09-19 12:28] LABS: Estmated Average Glucose 103; Hemoglobin A1C 5.2 % (4.0-6.0)
[2023-09-19] MEDS: glucagon 1 mg/mL KIT 1 mL IM (12:41)
[2023-09-19] MEDS: epoetin alfa 10,000 unit/mL INJ 10000 UNIT SUBCUT (12:42)
[2023-09-19] MEDS: vancomycin 750 MG in sodium chloride 0.9% 250 ML 250 MG IV (12:42)
[2023-09-19 14:08] LABS: Glucose Point of Care 121 mg/dL (70-110)
[2023-09-19] MEDS: sodium chloride 0.9% 1,000 ML 30 ML IV (14:10)
--- NOTE | 2023-09-19 14:24 | P.ANESASSM_ITS ---
Pre-Anesthetic Assessment Height/Weight: Height 1.52 m Weight 100.6 kg Temp Pulse Resp BP Pulse Ox O2 Del Method 98.2 F 95 18 158/66 94 Room Air 09/19/23 13:53 09/19/23 13:53 09/19/23 13:53 09/19/23 13:53 09/19/23 13:53 09/19/23 13:53 Preop Diagnosis: decubitus ulcers Operation Date: 09/19/23 14:45 Proposed Procedures p Debridement OF ABDOMINAL WALL AND SACRUM(Not Applicable) - Willian Andrews MD Familial anesthetic complications: none Was Beta Fabian taken within 24 hours: Yes Was Clonidine taken within 24 hours: N/A Last intake: Intake Last Liquid Date 09/18/23 Last Liquid Time 18:00 Last Solid Date 09/18/23 Last Solid Time 18:00 Social No alcohol and No tobacco Exam alert, oriented x 3, clear to auscultation bilaterally and regular rate & rhythm Airway Submandibular: within normal limits Cervical ROM: within normal limits Mallampati: Class II Dentition: false CV/HEM Anemia, Congestive Heart Failure (EF 45%) and Hypertension Chronic anemia Chronic Renal Failure GI Gastroesophageal Reflux Disease Metabolic Diabetes Mellitus, Hyperlipidemia, Morbid Obesity and Thyroid Disease Neuropsych Cognitive impairment Anesthetic Plan ASA status: 3 Medications/Allergies Home Medications Medication Instructions Recorded Confirmed Last Taken Type carbidopa 25 mg-levodopa 100 mg See Rx Instructions .Route .COMPLEX 05/20/20 09/16/23 08/22/23 History tablet ferric citrate 210 mg iron tablet 630 mg PO TID@08,12,20 05/20/20 09/16/23 08/23/23 History (Auryxia) ropinirole 0.5 mg tablet 0.5 mg PO QPM 06/21/20 09/16/23 08/23/23 History blood-glucose meter,continuous #1 ea 09/24/21 09/16/23 Unknown Rx (Dexcom G6 Continuous Process Rotary Drum Tanner) blood-glucose sensor (Dexcom G6 #9 ea 09/24/21 09/16/23 Unknown Rx Sensor device) clopidogrel 75 mg tablet 75 mg PO DAILY #30 tabs 11/27/21 09/16/23 08/23/23 Rx blood-glucose transmitter (Dexcom #3 ea 12/24/21 09/16/23 Unknown Rx G6 Transmitter device) glucagon 1 mg solution for 1 mg SUBCUT Q20M PRN hypoglycemia 12/24/21 09/16/23 Unknown Rx injection (Glucagon Emergency Kit) #1 ea amlodipine 2.5 mg tablet (Norvasc) 2.5 mg PO DAILY 09/28/22 09/16/23 08/23/23 History gabapentin 100 mg capsule 100 mg PO TID #90 caps 04/21/23 09/16/23 08/23/23 Rx levothyroxine 50 mcg tablet 50 mcg PO DAILY 08/24/23 09/16/23 08/23/23 History metoprolol succinate 50 mg 50 mg PO DAILY 08/24/23 09/16/23 08/23/23 History tablet,extended release 24 hr cyclobenzaprine 10 mg tablet 10 mg PO Q8H PRN MUSCLE SPASMS #14 09/04/23 09/16/23 Unknown Rx tabs atorvastatin 80 mg tablet 80 mg PO DAILY 09/06/23 09/16/23 Unknown History amoxicillin 875 mg-potassium 1 tab PO BID #10 tabs 09/12/23 09/16/23 Unknown Rx clavulanate 125 mg tablet doxycycline monohydrate 100 mg 100 mg PO BID #10 tabs 09/12/23 09/16/23 Unknown Rx tablet cetirizine 10 mg tablet 10 mg PO DAILY 09/16/23 09/16/23 Unknown History collagenase clostridium histo. 250 1 applic topical BID 09/16/23 09/16/23 Unknown History unit/gram topical ointment (Santyl) diphenhydramine HCl 25 mg capsule 25 mg PO BID PRN ALLERGIES 09/16/23 09/16/23 Unknown History (Benadryl) hydromorphone 2 mg tablet 2 mg PO Q8H PRN Pain 09/16/23 09/16/23 Unknown History ibuprofen 200 mg capsule (Advil 200 mg PO .Q4-6H PRN Pain 09/16/23 09/16/23 Unknown History Liqui-Gel) omeprazole 20 mg capsule,delayed 20 mg PO BEDTIME 09/16/23 09/16/23 Unknown History release Allergies Allergy/AdvReac Type Severity Reaction Status Date / Time codeine Allergy ALGY-Hives Verified 09/07/23 07:46 fentanyl Allergy ALGY-Hives Verified 09/07/23 07:46 hydrocodone Allergy ALGY-Hives Verified 09/07/23 07:46 influenza virus vaccine qs Allergy ALGY-Hives Verified 09/07/23 07:46 (65 years up) [From Anipipo (65y up)(PF)] Iodinated Contrast Media Allergy ALGY-Anaphy Verified 09/07/23 07:46 laxis kiwi Allergy ALGY-Anaphy Verified 09/07/23 07:46 laxis lisinopril Allergy ADR-Cough Verified 09/07/23 07:46 NSAIDS (Non-Steroidal Allergy ALGY-Hives Verified 09/07/23 07:46 Anti-Inflamma oxycodone Allergy ALGY-Hives Verified 09/07/23 07:46 pineapple Allergy ALGY-Anaphy Verified 09/07/23 07:46 laxis promethazine Allergy Unknown Verified 09/07/23 07:46 strawberry Allergy ALGY-Anaphy Verified 09/07/23 07:46 laxis tramadol Allergy ALGY-Hives Verified 09/07/23 07:46 vaccine adjuvant emulsion Allergy ALGY-Hives Verified 09/07/23 07:46 MF59C.1 [From Anipipo (65y up)(PF)] Current Medications Generic Name Dose Route Start Last Admin Trade Name Freq PRN Reason Stop Dose Admin Acetaminophen 650 mg 09/16/23 14:28 09/19/23 12:26 Acetaminophen 325 Mg Tablet PO 650 mg Q6H PRN Administration Mild/Mod Pain Or Temp >/= 101 Atorvastatin Calcium 80 mg 09/17/23 09:00 09/19/23 09:00 Atorvastatin 40 Mg Tablet PO 80 mg DAILY JAMIE Administration Bacitracin 1 each 09/18/23 09:05 09/19/23 12:24 Bacitracin Ointment Pkt TOPICAL 1 each TID JAMIE Administration Protocol Carbidopa/Levodopa 0.5 each 09/16/23 17:30 09/16/23 18:29 Carbidopa-Levodopa 25-100mg Tablet PO 0.5 each [id number] JAMIE Administration Cetirizine HCl 10 mg 09/17/23 09:00 09/19/23 09:00 Cetirizine 10 Mg Tablet PO 10 mg DAILY JAMIE Administration Clopidogrel Bisulfate 75 mg 09/17/23 09:00 09/18/23 09:45 Clopidogrel 75 Mg Tablet PO 75 mg DAILY JAMIE Administration Gabapentin 100 mg 09/16/23 18:00 09/19/23 09:00 Gabapentin 100 Mg Capsule PO 100 mg BID JAMIE Administration Heparin Sodium (Porcine) 5,000 unit 09/16/23 16:00 09/18/23 04:07 Heparin 5,000 Unit/Ml Inj 1 Ml SUBCUT 5,000 unit Q12H JAMIE Administration Hydromorphone HCl 2 mg 09/16/23 14:28 09/18/23 22:12 Hydromorphone 4 Mg Tablet PO 2 mg Q8H PRN Administration Pain Vancomycin HCl 750 mg/ Sodium 250 mls @ 250 mls/hr 09/19/23 10:00 09/19/23 13:56 Chloride IV Infused [facility] Infusion Protocol As Directed Sodium Chloride 1,000 mls @ 30 mls/hr 09/19/23 14:00 09/19/23 14:10 Sodium Chloride 0.9% IV 09/20/23 13:59 30 mls/hr .Q24H JAMIE Administration Insulin Human Lispro 0 unit 09/18/23 18:00 09/19/23 11:39 Insulin Lispro 100 Unit/1 Ml SUBCUT Not Given WM&BEDTIME JAMIE Protocol Levothyroxine Sodium 50 mcg 09/17/23 09:00 09/19/23 09:00 Levothyroxine 50 Mcg Tablet PO 50 mcg DAILY JAMIE Administration Metoprolol Succinate 25 mg 09/19/23 09:00 09/19/23 09:00 Metoprolol Succinate Er (24 Hr) 50 Mg Tablet PO 25 mg DAILY JAMIE Administration Nystatin 1 applic 09/18/23 09:00 09/19/23 12:24 Nystatin Cream 30 Gm TOPICAL 1 applic BID JAMIE Administration Pantoprazole Sodium 40 mg 09/16/23 21:00 09/18/23 20:[address] 40 Mg Tablet PO 40 mg BEDTIME JAMIE Administration Ropinirole HCl 0.5 mg 09/16/23 18:00 09/18/23 17:49 Ropinirole 1 Mg Tablet PO 0.5 mg QPM JAMEI Administration PFSH Anesthesia Medical History ESRD (end stage renal disease) Fracture of greater tuberosity of left humerus Fracture of humeral head, left, closed Stage III pressure ulcer of sacral region Decubitus ulcer of sacral region, unstageable Abdominal wall cellulitis Failure to thrive Weakness Toe fracture Contusion of right foot ESRD (end stage renal disease) Rash Seropositive rheumatoid arthritis Left foot pain Long-term insulin use Diabetes type 2, uncontrolled Appetite loss MCI (mild cognitive impairment) Hypothyroidism Insulin dependent type 2 diabetes mellitus COVID-19 Hypertension Anxiety ESRD (end stage renal disease) Diabetes Hyperlipidemia Chronic back pain De Quervain's tenosynovitis Surgical History Status post colonoscopy S/P dialysis catheter insertion Removed 07/14/20 S/P arteriovenous (AV) fistula creation History of temporal artery biopsy H/O dilation and curettage H/O section Hx of cholecystectomy History of appendectomy History of carpal tunnel repair H/O neck surgery fusion Family History Father Bleeding disorder Other Diabetes Heart disease Hyperlipidemia Hypertension Kidney problem Migraines Stroke Denies family history of Anesthesia complication Social History Smoking and tobacco/nicotine status: never used tobacco/nicotine Second hand smoke exposure: No Alcohol intake: never Substance/Drug Use: never Adopted: No Caregiver/support person: Yes Lives independently: Yes Household members: family Housing: House Marital status: Single Highest education level completed: High School Graduate service: No Current occupational status: disabled Current occupational exposures/hazards: No Pets and animals: Yes Pets & animals: dog(s) Sexually active: No Do you think of yourself as: Straight/Heterosexual Current gender identity: Female Sabina/Zoroastrianism: Pentecostal Special sabina needs: No Agree to transfusion: No Data Anesthesia 09/19/23 04:20 09/19/23 04:20 Short CBC 09/18/23 09/19/23 Range/Units 05:48 04:20 WBC 5.59 4.54 (3.29-11.43) 10^3/uL Hgb 8.60 L 8.50 L (11.27-16.99) g/dL Hct 29.8 L 27.5 L (36-47) % MCV 105.3 H 97.5 D (85-98) fl Plt Count 307 303 (157-399) 10^3/cmm Neut % (Auto) 73.8 72.1 % Neut # (Auto) 4.13 3.27 (1.8-7.7) 10^3/uL BMP 09/18/23 09/19/23 05:48 04:20 Sodium 133 L 135 L Potassium 4.5 4.9 Chloride 97 L 98 Carbon Dioxide 25 26 BUN 28 H 34 H Creatinine 4.5 H 5.3 H Glucose 84 74 Calcium 8.0 L 8.2 L Liver Function 09/18/23 09/19/23 Range/Units 05:48 04:20 Total Bilirubin 0.3 0.3 (0.15-1.2) mg/dL AST 21 22 (0-32) U/L ALT 8 8 (0-33) U/L Alkaline Phosphatase 104 111 H (35-105) U/L Albumin 2.3 L 2.5 L (3.5-5.2) g/dL Coags 09/19/23 04:20 ESR 19 H C-Reactive Protein 67.3 H Microbiology 09/16/23 09:48 Urine Culture - Final Urine,Clean Catch Cardiac Studies: 2 Echocardiogram 09/16/23 Echocardiogram Ultrasound 06/23/20
[2023-09-19] MEDS: HYDROmorphone 1 mg/mL INJ 1 mL 0.5 MG IVP ×3 (14:35→17:39)
--- NOTE | 2023-09-19 17:18 | PM.OP ---
Operative Report Date of procedure: September 19, 2023 Pre-op diagnosis: Stage III sacral decubitus ulcer, pressure ulceration of the left abdominal pannus Post-op diagnosis: Same Post-op findings: There was a stage III sacral decubitus ulcer measuring about 4 x 4 cm with small amount of superior undermining. On the anterior abdominal wall at the level of the left lower quadrant in the pannus there was a area of 10 x 8 cm of Roys skin, on the superior aspect of this area there was a necrotic eschar measuring 10 x 3 cm. Procedure done: Debridement of sacral decubitus ulcer, debridement of abdominal wall. Specimens removed/disposition: Abdominal wall eschar Surgeon: Willian Andrews MD Neuroscience Director Na: OR staff Estimated blood loss: 5 Brief History: 57-year-old female with known history of sacral decubitus ulcer and who also presents with cellulitis abdominal wall and maceration I was consulted for debridement. After discussion of all risk and benefits as documented my preop note with side to proceed. Procedure: Patient was brought into the OR. She was placed in a supine position. General esthesia was given. The patient was then placed on a lateral decubitus position to give access to the sacral region. The sacral region was prepped and draped in the usual sterile fashion. Timeout was conducted. a 4 x 4 centimeter sacral decubitus ulcer was noted, the base had small amount of slough and fibrinous material that was debrided with a curette to healthy bleeding tissue. Minimal amount of slough remaining at the base that was not debrided to prevent further bleeding. Dressing was then placed with wet-to-dry. Patient was then placed in a supine position. The left lower abdomen was prepped and draped in the usual sterile fashion. There was an area of raw skin measuring about 10 x 8 cm, on the superior aspect of the scrotal skin it was noted that the scar measuring 10 x 3 cm was located, this scar was excised using a scalpel, underlying the scar there was minimal amount of purulence and fibrinous material. This was debrided with a curette to healthy bleeding tissue, only debridement of the dermis was necessary, soft tissue appears healthy. I then proceeded to irrigate the wound, hemostasis was achieved. A dressing consisting of Adaptic Telfa and ABD pads was then placed. In all the folds including the abdominal pannus and below the breast we decided to place Interdry to prevent further maceration and worsening of the skin condition. At the end of the procedure all counts were correct the patient tolerated well the procedure was transferred to the PACU in stable condition.
--- NOTE | 2023-09-19 17:34 | ANE.PACU2 ---
Inpatient post-anesthesia follow up: Airway intact: Yes Vital signs: Temperature 98.2 F Pulse Rate 95 Respiratory Rate 18 Blood Pressure 158/66 Pulse Oximetry 94 Oxygen Delivery Me thod [ Room Air Current Rate & Del josh] Oxygen Delivery Me thod Room Air Oxygen Flow Rate 6 Fraction of Inspir ed Oxygen Hydration adequate: Yes Nausea and vomiting: No Pain level: 2 Mental status: Altered (sedated)
[2023-09-19] MEDS: ALPRAZolam 0.5 mg Tablet PO (18:43)
[2023-09-19 20:50] LABS: Glucose Point of Care 91 mg/dL (70-110)
[2023-09-19] MEDS: pantoprazole DR 40 mg Tablet PO (21:52)
[2023-09-20] VITALS: BP 125/74; PULSE 79; RESP 16; TEMP 36.3; O2SAT 97
[2023-09-20 04:00] VITALS: BP 113/51; PULSE 73; RESP 18; TEMP 36.4; O2SAT 100
[2023-09-20] MEDS: heparin 5,000 unit/mL INJ 1 mL 5000 UNIT SUBCUT (05:10)
[2023-09-20] MEDS: meropenem 500 MG in sodium chloride 0.9% (plus) 50 ML 100 MG IV (05:10)
[2023-09-20 05:16] VITALS: BMI 43.6
[2023-09-20 06:35] LABS: Glucose Point of Care 61 mg/dL (70-110)
[2023-09-20] MEDS: dextrose 10% 250 ML 500 ML IV (06:36)
[2023-09-20 07:38] VITALS: BP 147/82; PULSE 93; RESP 18; TEMP 36.4; O2SAT 99
[2023-09-20 08:30] LABS: Glucose Point of Care 103 mg/dL (70-110)
[2023-09-20] MEDS: metoprolol succinate ER (24 HR) 50 mg Tablet 25 MG PO (09:37)
[2023-09-20] MEDS: gabapentin 100 mg Capsule PO (09:38)
[2023-09-20] MEDS: atorvastatin 40 mg Tablet 80 MG PO (09:38)
[2023-09-20] MEDS: levothyroxine 50 mcg Tablet PO (09:38)
[2023-09-20] MEDS: cetirizine 10 mg Tablet PO (09:38)
[2023-09-20] MEDS: nystatin cream 30 gm 1 APPLIC TOPICAL (09:39)
[2023-09-20 11:01] LABS: Glucose Point of Care 118 mg/dL (70-110)
--- NOTE | 2023-09-20 11:27 | P.PN_ITS ---
Subjective 2 Subjective: Patient is awake and alert Ready to be discharged once get authorization Status post debridement of abdominal wall ulcer Vitals/I&O/Wt Last Vital Signs Temp 97.6 F 09/20/23 07:38 Pulse 93 09/20/23 07:38 Resp 18 09/20/23 07:38 BP 147/82 09/20/23 07:38 Pulse Ox 99 09/20/23 07:38 O2 Del Method Room Air 09/20/23 07:38 O2 Flow Rate 2 09/19/23 17:47 09/19/23 09/20/23 09/20/23 22:59 06:59 14:59 Intake Total 289 / 1089 235 / 1324 240 / 240 Output Total 1800 Balance 288 / -712 235 / -477 240 / 240 Weight last 48 hrs Weight 101.321 kg Weight 100.6 kg Weight 99.654 kg Physical Exam 2 Narrative: Awake and alert GCS 15 Currently on room air Sitting in chair Nonfocal neuroexam S1, S2 Hemodynamically stable Urinary Catheter Management: Woodard: Cath Placed During This Visit: yes Reason for Continuing Indwelling Catheter: Other Urinary Catheter Date of Insertion: 09/16/23 Urinary Catheter Time of Insertion: 10:00 Data 09/19/23 04:20 09/19/23 04:20 A&P Assessment and plan (1) Elevated troponin: (2) Cellulitis: (3) UTI (urinary tract infection): (4) ESRD (end stage renal disease): (5) Sacral decubitus ulcer, stage III: (6) Acute encephalopathy: Plan Metabolic encephalopathy: Resolved related to UTI and sleep apnea Will prescribe sleep study at the time of discharge Will wean oxygen at the time of discharge as well Status post debridement of sacral area ulcer stage III and abdominal wall Dressing in place Hemodynamic stable Ready to be discharged once get authorization to be released to residential End-stage renal disease: Continue dialysis Attestations 2 Medical Necessity Statement*: Continue medical management Diagnoses Elevated troponin R79.89 Cellulitis L03.90 UTI (urinary tract infection) N39.0 ESRD (end stage renal disease) N18.6 Sacral decubitus ulcer, stage III L89.153 Acute encephalopathy G93.40
[2023-09-20 11:36] VITALS: BP 128/79; PULSE 80; RESP 18; TEMP 36.6; O2SAT 99
--- NOTE | 2023-09-20 13:11 | P.PN_ITS ---
Subjective 2 Subjective: Patient is postoperative day 1 status post debridement of left lower abdominal wall wound and also debridement of sacral decubitus ulcer. Patient is doing well and in good spirits. Wound progression is appropriate. Vitals/I&O/Wt Last Vital Signs Temp 97.8 F 09/20/23 11:36 Pulse 80 09/20/23 11:36 Resp 18 09/20/23 11:36 BP 128/79 09/20/23 11:36 Pulse Ox 99 09/20/23 11:36 O2 Del Method Nasal Cannula 09/20/23 11:36 O2 Flow Rate 2 09/19/23 17:47 09/19/23 09/20/23 09/20/23 22:59 06:59 14:59 Intake Total 289 / 1089 235 / 1324 240 / 240 Output Total 1800 Balance 288 / -712 235 / -477 240 / 240 Weight last 48 hrs Weight 223 lb 6 oz Weight 221 lb 12.56 oz Weight 219 lb 11.2 oz Physical Exam 2 GI: OTHER: In the left lower abdomen there is a surgical debridement wound is covered with dressing, there is erythema on the whole left lower abdominal wall area that is likely due to maceration. The area of debridement appears healthy. Back/Pelvis: OTHER: Satiated secondary to acute close ulcer with minimal amount of slough at the base will continue Santyl l dressing. Urinary Catheter Management: Woodard: Cath Placed During This Visit: yes Reason for Continuing Indwelling Catheter: Other Urinary Catheter Date of Insertion: 09/16/23 Urinary Catheter Time of Insertion: 10:00 Data 09/19/23 04:20 09/19/23 04:20 A&P Assessment and plan (1) ESRD (end stage renal disease): (2) Cellulitis: (3) Sacral decubitus ulcer: Plan Good progression after debridement of abdominal wall and sacral decubitus ulcer. Wound care can be continued by nursing staff at the bedside. I recommend that the anal natural crevices were wide mouth sure may be encountered Interdry can be applied to prevent forward her ulceration and maceration of the skin. All other management per primary. -Please apply interdy daily to folds beloow breast and pannus. -sacral decubitus ulcer daily dressing with santyl at the base and dry gauze -on the left lower abdomen panus please apply zinc oxide cream daily to raw skin, on area of debridement plese apply wet to dry dressing. Attestations 2 Medical Necessity Statement*: Per primary Coding Level of Care Code Acute Code for [facility] Diagnoses ESRD (end stage renal disease) N18.6 Cellulitis L03.90 Sacral decubitus ulcer L89.159
[2023-09-20 13:26] LABS: Hematocrit 35.9 % (36-47); Lymphocytes # 0.7 10^3/uL (0.8-4.8); Lymphocytes % 12.8 %; Mean Corpuscular HGB Conc 30.4 g/dL (30-55); Mean Corpuscular Hemoglobin 29.9 pg (27-33); Mean Corpuscular Volume 98.4 fl (85-98); Mean Platelet Volume 9.1 fL (7.4-10.4); Monocytes # 0.6 10^3/uL (0.2-0.9); Monocytes % 9.7 %; Neutrophils # 4.39 10^3/uL (1.8-7.7); Neutrophils % 77.1 %; Nucleated Red Blood Cells % 0 %; Platelet Count 379 10^3/cmm (157-399); Red Blood Count 3.65 10^6/uL (3.85-5.65); Red Cell Distribution Width 15.1 % (12.1-15.1); White Blood Count 5.69 10^3/uL (3.29-11.43)
[2023-09-20 13:45] LABS: Alanine Aminotransferase 10 U/L (0-33); Albumin Level 2.6 g/dL (3.5-5.2); Alkaline Phosphatase 143 U/L (35-105); Anion Gap 17.3 (5-19); Aspartate Amino Transferase 25 U/L (0-32); Blood Urea Nitrogen 22 mg/dL (6-20); Calcium 8.5 mg/dL (8.5-10.5); Carbon Dioxide 23 mmol/L (22-29); Chloride 100 mmol/L (98-107); Creatinine Clr Calc Pharmacy 17.7464; Globulin 3.7 g/dL (1.3-4.6); Glomerular Filtration Rate 12.6 mL/min (90-130); Glucose 90 mg/dL (65-115); Osmolality Calculated 285 mOsm/kg (285-295); Phosphorus 3.2 mg/dL (2.5-4.5); Potassium 4.3 mmol/L (3.5-5.1); Sodium 136 mmol/L (136-145); Total Bilirubin 0.4 mg/dL (0.15-1.2); Total Protein 6.3 g/dL (6.6-8.7)
--- NOTE | 2023-09-20 14:31 | P.DS_ITS ---
Discharge Providers Date of Admission: 09/16/23 13:18 Date of Discharge: September 20, 2023 Attending Provider at Admission: Basil Siddiqui MD Attending Provider at Discharge: Jigar Flanagan MD Primary Care Provider: Vivienne Schulz MD Diagnoses at Discharge Discharge Diagnosis (1) ESRD (end stage renal disease): Status: Acute (2) Cellulitis: Status: Acute (3) Sacral decubitus ulcer: Status: Acute Reason for Visit Reason for Visit: ams Hospital Course Hospital Course 57-year-old female who was recently discharged from the hospital for management evaluation of sacral stage III decubitus ulcer status post surgical debridement, patient was treated for UTI, she was given antibiotics for metabolic encephalopathy related to UTI which was treated successfully, urine culture and sensitivity report reviewed antibiotics were prescribed accordingly. 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 For now we are recommending 2 to 3 L of oxygen at nighttime. Patient also has mild cognitive impairment, during this hospitalization troponins were trended, she never complained of chest pain, echo unremarkable. Blood cultures are negative. She can still use Augmentin and doxycycline which should suffice microorganism coverage for cellulitis and UTI. She was dialyzed Tuesday as per the schedule. She is full code No concern for compartment syndrome on the left humeral fracture, orthopedics recommended medical management. Physical Exam Narrative: Awake and alert GCS 15 Currently on room air Sitting in chair Nonfocal neuroexam S1, S2 Hemodynamically stable Urinary Catheter Management: Woodard: Cath Placed During This Visit: yes Reason for Continuing Indwelling Catheter: Other Urinary Catheter Date of Insertion: 09/16/23 Urinary Catheter Time of Insertion: 10:00 Discharge Data Studies Completed and Pending Completed Studies During Hospitalization Category Date Time Status CT abdomen pelvis wo con [id number] Stat Cat Scan 09/16/23 08:35 Completed XR chest 1V portable [id number] Stat Exams 09/16/23 08:24 [place] [id number] Routine Exams 06/09/24 16:06 Completed CV. echo complete* [id number] Stat Ultrasound 09/16/23 12:01 Completed Pending at discharge Category Date Time Status Blood Culture Stat Lab 09/16/23 09:21 Results Complete Blood Count w/Auto AM LABS Lab 09/21/23 04:00 Ordered Complete Blood Count w/Auto AM LABS Lab 09/22/23 04:00 Ordered Comprehensive Metabolic Panel AM LABS Lab 09/21/23 04:00 Ordered Comprehensive Metabolic Panel AM LABS Lab 09/22/23 04:00 Ordered Magnesium AM LABS Lab 09/21/23 04:00 Ordered Magnesium AM LABS Lab 09/22/23 04:00 Ordered Phosphorus AM LABS Lab 09/21/23 04:00 Ordered Phosphorus AM LABS Lab 09/22/23 04:00 Ordered Pathology: Surgical [PTH] Routine Pth 09/19/23 17:48 Received Radiology Impressions Chest X-Ray 09/16/23 08:24 IMPRESSION: No acute chest abnormality. Abdomen/Pelvis CT 09/16/23 08:35 IMPRESSION: 1. Extensive soft tissue anasarca throughout the abdomen and pelvis. 2. No acute abdominal pelvic findings are identified. 3. Bilateral renal atrophy with extensive vascular calcifications. 4. No pelvic fractures. 5. Decubitus ulcer noted at the level of the coccyx. Soft tissue inflammation extends to the coccyx but the tract does not extend to the coccyx. Cannot confirm osteomyelitis. Humerus X-Ray 09/18/23 16:06 IMPRESSION: Comminuted left humeral head fracture again seen. Laboratory Results WBC 5.69 10^3/uL (3.29-11.43) 09/20/23 13:15 RBC 3.65 10^6/uL (3.85-5.65) L 09/20/23 13:15 Hgb 10.90 g/dL (11.27-16.99) L 09/20/23 13:15 Hct 35.9 % (36-47) L 09/20/23 13:15 MCV 98.4 fl (85-98) H 09/20/23 13:15 MCH 29.9 pg (27-33) 09/20/23 13:15 MCHC 30.4 g/dL (30-55) 09/20/23 13:15 RDW 15.1 % (12.1-15.1) 09/20/23 13:15 Plt Count 379 10^3/cmm (157-399) 09/20/23 13:15 MPV 9.1 fL (7.4-10.4) 09/20/23 13:15 Neut % (Auto) 77.1 % 09/20/23 13:15 Lymph % (Auto) 12.8 % 09/20/23 13:15 [place] % (Auto) 9.7 % 09/20/23 13:15 Eos % (Auto) 0.0 % 09/20/23 13:15 Baso % (Auto) 0.0 % 09/20/23 13:15 Neut # (Auto) 4.39 10^3/uL (1.8-7.7) 09/20/23 13:15 Lymph # (Auto) 0.7 10^3/uL (0.8-4.8) L 09/20/23 13:15 [place] # (Auto) 0.6 10^3/uL (0.2-0.9) 09/20/23 13:15 Eos # (Auto) 0.0 10^3/uL (0.0-0.8) 09/20/23 13:15 Baso # (Auto) 0.0 10^3/uL (0.0-0.1) 09/20/23 13:15 Nucleated RBC % (auto) 0 % 09/20/23 13:15 Nucleated RBCs # 0.0 /100WBC 09/20/23 13:15 ESR 19 mm/hr (0-15) H 09/19/23 04:20 Sodium 136 mmol/L (136-145) 09/20/23 13:15 Potassium 4.3 mmol/L (3.5-5.1) 09/20/23 13:15 Chloride 100 mmol/L (98-107) 09/20/23 13:15 Carbon Dioxide 23 mmol/L (22-29) 09/20/23 13:15 Anion Gap 17.3 (5-19) 09/20/23 13:15 BUN 22 mg/dL (6-20) H 09/20/23 13:15 Creatinine 3.7 mg/dL (0.5-0.9) H 09/20/23 13:15 GFR Calculation 12.6 mL/min (90-130) L 09/20/23 13:15 Glucose 90 mg/dL (65-115) 09/20/23 13:15 POC Glucose 118 mg/dL (70-110) H 09/20/23 10:53 Estimat Average Glucose 103 09/19/23 04:20 Hemoglobin A1c 5.2 % (4.0-6.0) 09/19/23 04:20 Calculated Osmolality 285 mOsm/kg (285-295) 09/20/23 13:15 Lactic Acid 1.0 mmol/L (0.5-2.2) 09/16/23 09:03 Calcium 8.5 mg/dL (8.5-10.5) 09/20/23 13:15 Phosphorus 3.2 mg/dL (2.5-4.5) 09/20/23 13:15 Magnesium 2.0 mg/dL (1.7-2.3) 09/20/23 13:15 Total Bilirubin 0.4 mg/dL (0.15-1.2) 09/20/23 13:15 AST 25 U/L (0-32) 09/20/23 13:15 ALT 10 U/L (0-33) 09/20/23 13:15 Alkaline Phosphatase 143 U/L (35-105) H 09/20/23 13:15 Troponin T Baseline 128 ng/L (0-10) H* 09/16/23 09:03 Troponin T 120 Minute 122.0 ng/L (0-10) H 09/16/23 11:38 Delta Troponin T -6.0 ABS# (0-10) L 09/16/23 11:38 Troponin T Hi Sens 6Hr 114.4 ng/L (0-10) H 09/16/23 15:16 Troponin T Hi Sens 6Hr Delta -13.6 ng/L (0-12) L 09/16/23 15:16 C-Reactive Protein 67.3 mg/L (0.0-4.9) H 09/19/23 04:20 NT-Pro-B Natriuret Pep 69682 pg/mL (0-125) H 09/16/23 09:21 Total Protein 6.3 g/dL (6.6-8.7) L 09/20/23 13:15 Albumin 2.6 g/dL (3.5-5.2) L 09/20/23 13:15 Globulin 3.7 g/dL (1.3-4.6) 09/20/23 13:15 Procalcitonin 0.90 ng/mL (0-0.5) H 09/16/23 09:21 Urine Color Yellow (Yellow) 09/16/23 09:48 Urine Appearance Cloudy (CLEAR) A 09/16/23 09:48 Urine pH 8 (5-7) H 09/16/23 09:48 Ur Specific [place] 1.015 (1.005-1.030) 09/16/23 09:48 Urine Protein 2+ (Negative) H 09/16/23 09:48 Urine Glucose (UA) Norm (Normal) 09/16/23 09:48 Urine Ketones Negative (Negative) 09/16/23 09:48 Urine Blood 3+ (Negative) H 09/16/23 09:48 Urine Nitrate Negative (Negative) 09/16/23 09:48 Urine Bilirubin Neg (Negative) 09/16/23 09:48 Prot Sulfosalicylic Acd Negative (Negative) 09/16/23 09:48 Urine Urobilinogen Norm mg/dL (Negative) 09/16/23 09:48 Ur Leukocyte Esterase 2+ (Negative) H 09/16/23 09:48 Urine RBC Rare /hpf (0-2) 09/16/23 09:48 Urine WBC Too numerous to cnt /hpf (0-5) H 09/16/23 09:48 Ur Squamous Epith Cells Not Reportable 09/16/23 09:48 Ur Transition Epith Cell 5-10 /hpf 09/16/23 09:48 Amorphous Sediment Not Reportable 09/16/23 09:48 Urine Bacteria 2+ /hpf (NONE) H 09/16/23 09:48 Random Vancomycin 10.7 ug/mL (20.0-40.0) L 09/19/23 04:20 Vitals Last Vital Signs Temp 97.8 F 09/20/23 11:36 Pulse 80 09/20/23 11:36 Resp 18 09/20/23 11:36 BP 128/79 09/20/23 11:36 Pulse Ox 99 09/20/23 11:36 O2 Del Method Nasal Cannula 09/20/23 11:36 O2 Flow Rate 2 09/19/23 17:47 Discharge Plan Discharge Patient Disposition: Xfer SNF Condition: Stable Prescriptions: Continued (DME) Dexcom G6 Lab Rn Misc See Rx Instructions .Route Qty: 1 0RF Rx Instructions: Check BS continuously (DME) Dexcom G6 Sensor Device See Rx Instructions .Route Qty: 9 3RF Rx Instructions: Change every 10 days. gabapentin 100 mg capsule 100 mg PO TID Qty: 90 4RF (DME) Dexcom G6 Transmitter Device See Rx Instructions .Route Qty: 3 3RF Rx Instructions: Change every 90 days. Glucagon Emergency Kit (human) 1 mg recon soln 1 mg SUBCUT Q20M PRN (Reason: hypoglycemia) Qty: 1 3RF Rx Instructions: until target blood sugar attained amlodipine [Norvasc] 2.5 mg tablet 2.5 mg PO DAILY carbidopa-levodopa 25-100 mg tablet See Rx Instructions .ROUTE .COMPLEX Rx Instructions: 0.5 tab orally BEFORE DIALYSIS Auryxia 210 mg iron tablet 630 mg PO TID@08,12,20 Rx Instructions: TAKE WITH MEALS ropinirole 0.5 mg tablet 0.5 mg PO QPM clopidogrel 75 mg tablet 75 mg PO DAILY Qty: 30 0RF atorvastatin 80 mg tablet 80 mg PO DAILY amoxicillin-pot clavulanate 875-125 mg Tablet 1 tab PO BID Qty: 10 0RF doxycycline monohydrate 100 mg Tablet 100 mg PO BID Qty: 10 0RF metoprolol succinate 50 mg tablet extended release 24 hr 50 mg PO DAILY levothyroxine 50 mcg tablet 50 mcg PO DAILY cyclobenzaprine 10 mg tablet 10 mg PO Q8H PRN (Reason: MUSCLE SPASMS) Qty: 14 0RF cetirizine 10 mg Tablet 10 mg PO DAILY Advil Liqui-Gel 200 mg Capsule 200 mg PO .Q4-6H PRN (Reason: Pain) hydromorphone 2 mg tablet 2 mg PO Q8H PRN (Reason: Pain) Benadryl 25 mg Capsule 25 mg PO BID PRN (Reason: ALLERGIES) omeprazole 20 mg Capsule,Delayed Release(Dr/Ec) 20 mg PO BEDTIME Santyl 250 unit/gram ointment 1 applic topical BID Discharge Orders: Discharge Order (Routine); Ordered 09/20/23 Ordered By: Jigar Flanagan Other Ambulatory Orders: Sleep Study/Titration (Routine) Timeframe: 2 Days Facility: [facility] - Location: [facility] Ordered By: Jigar Flanagan Referrals: [facility] [Outside] Vivienne Schulz MD [Primary Care Provider] - Discharge Diet: Diabetic Discharge Activity: Increase activity as tolerated Patient Instructions: Dialysis Diet (DC), Altered Mental Status (ED), Hemodialysis (DC) Activity Restrictions/Additional Instructions: Wound Care Please apply interdry daily to folds below breast and pannus. Sacral decubitus ulcer daily dressing with santyl at the base and dry gauze On the left lower abdomen pannus, please apply zinc oxide cream daily to raw skin. On area of debridement please apply wet to dry dressing. Morning confusion is due to untreated sleep apnea gave sleep study referral For now use Oxygen 2-3 L at night time Discharge Attestations Time Spent in Discharge Care*: greater than 30 min Status at Discharge: Cognitive status at discharge: cognitively intact , Behavioral status at discharge: cooperative , Quality Metrics Clinical Quality Measures [ No reported AMI, CVA or VTE this stay] Coding Level of Care Code Acute Code for [facility] Diagnoses ESRD (end stage renal disease) N18.6 Cellulitis L03.90 Sacral decubitus ulcer L89.159
--- NOTE | 2023-09-20 15:17 | PC.NURSE ---
Report given to NATHAN Hernandez at [place].
[2023-09-20 15:18] VITALS: BP 128/79; PULSE 80; RESP 18; TEMP 36.6; O2SAT 99
== END 2023-09-20 15:19 | disposition skilled nursing facility (03) | DRG 70 ==
LOC: ER 13:11 → MEDSURG 13:18
PROVIDERS: Internal Medicine Nephrology; Surgery; Admitting Provider Internal Medicine; Emergency Provider Family Medicine; PCP Internal Medicine; Visit Provider Internal Medicine
PROC: 0HD6XZZ Extraction of Back Skin, External Approach (ICD-10-PCS; principal; 2023-09-19 14:35)
DX: G93.41 Metabolic encephalopathy (principal); L89.153 Pressure ulcer of sacral region, stage 3; N18.6 End stage renal disease; I12.0 Hypertensive chronic kidney disease with stage 5 chronic kidney disease or end stage renal disease; Z68.41 Body mass index [BMI] 40.0-44.9, adult; E87.1 Hypo-osmolality and hyponatremia; N30.00 Acute cystitis without hematuria; L03.311 Cellulitis of abdominal wall; E11.22 Type 2 diabetes mellitus with diabetic chronic kidney disease; Z99.2 Dependence on renal dialysis; M05.9 Rheumatoid arthritis with rheumatoid factor, unspecified; E03.9 Hypothyroidism, unspecified; Z86.16 Personal history of COVID-19; E78.5 Hyperlipidemia, unspecified; G89.29 Other chronic pain; M54.9 Dorsalgia, unspecified; E66.9 Obesity, unspecified; F32.A Depression, unspecified; D63.1 Anemia in chronic kidney disease; E88.09 Other disorders of plasma-protein metabolism, not elsewhere classified; G47.30 Sleep apnea, unspecified; G31.84 Mild cognitive impairment of uncertain or unknown etiology; I95.9 Hypotension, unspecified; L89.899 Pressure ulcer of other site, unspecified stage; E87.5 Hyperkalemia
CPT/HCPCS: 36415; 36416; 51702; 71045; 73060; 74176; 80053; 80202; 81001; 82962; 83036; 83605; 83735; 83880; 84100; 84145; 84484; 85025; 85651; 86140; 87040; 87086; 88307; 90935; 93005; 93306; 96365; 96372; 96375; 99285; J1170; J1610; J1644; J1815; J2185; J2704; J3370; J3490; J7030; J7050; J7799; Q3014; Q4081

== ENCOUNTER 2023-11-02 07:37 | Emergency (ER) | payer MEDICARE, MEDICAID, SELFPAY ==
[2023-11-02 07:40] VITALS: BP 101/43; PULSE 82; RESP 20; TEMP 36.2; O2SAT 100; BMI 39.6
--- NOTE | 2023-11-02 08:14 | CT_ITS ---
WS: [id number] CT FACIAL BONES HISTORY: trauamatic facial pain TECHNIQUE: Images obtained from the supraorbital location through the mandible. Soft tissue and bone windows are reviewed. Coronal and sagittal reformats have also been submitted. DLP: 2231.[address] scans at [facility] use at least one of these dose optimization techniques: automated e xposure control; mA and/or kV adjustment per patient size (includes targeted exams where dose is matc hed to clinical indication); or iterative reconstruction. COMPARISON: 08/24/2023 No acute nasal bone fracture. Similar configuration as on 08/24/2023. Zygomatic arches are intact. No air-fluid levels or blood within the sinus cavities. The visualized calvarium is negative for acute f racture. Small soft tissue hematoma centered over the midline frontal bone is improving. Degenerative rotoscoliosis in the upper cervical spine. No fracture. Mandibular condyles are negative. Negative o rbits and globes. CT/CT facial bones wo con* [id number] IMPRESSION: No acute facial bone fracture.
--- NOTE | 2023-11-02 08:14 | CT_ITS ---
WS: [id number] CT HEAD NONCONTRAST HISTORY: fall, head injury TECHNIQUE: Contiguous axial imaging performed through the brain in 2.5 mm imaging. Bone and soft tiss ue windows. Sagittal and coronal reformats reviewed. All CT scans at [facility] use at least one of these dose optimization techniques: automated exposure control; mA and/or kV adjustment per pa tient size (includes targeted exams where dose is matched to clinical indication); or iterative recon struction. DLP: 2231.86 mGy.cm COMPARISON: 08/24/2023 Remote infarct with encephalomalacia and cortical calcifications in the RIGHT posterior frontal and p arietal lobes. Long-term stability without obvious progression. Otherwise mild volume loss and atroph y. Mild small vessel ischemic disease. No hemorrhage. Ventricles: Ex vacuo dilatation occipital horn the RIGHT lateral ventricle secondary to the adjacent encephalomalacia. No inferior displacement of the cerebellar tonsils. Paranasal sinuses: As visualized are clear. Mastoid air cells: Well pneumatized. Calvarium and scalp: No skull fracture. Improving soft tissue contusion over the midline frontal bone . CT/CT head wo con* [id number] IMPRESSION: 1. No acute intracranial hemorrhage or edema. 2. Large remote infarct involving the posterior RIGHT frontal and parietal lob es with cortical calcification. No new infarct or sulcal effacement. 3. No fracture. 4. Mild atrophy and volume loss otherwise.
--- NOTE | 2023-11-02 08:16 | W.ED.FALL ---
HPI - Fall General: Chief Complaint: Fall Stated Complaint: fall Time Seen by Provider: 11/02/23 07:48 History of Present Illness: 58-year-old female with a history of stroke who presents the emergency room after she fell out of her recliner this morning. She hit her head. She has some new bruising on her left forehead and left cheek. She also has some old bruising from a fall about a week ago. She is on Plavix. No loss of consciousness. No altered mental status. No nausea or vomiting. No focal motor deficits. No chest pain. No shortness of breath. No abdominal pain. Review of Systems Narrative: Constitutional symptoms: Negative except as documented in HPI. Skin symptoms: Negative except as documented in HPI. Eye symptoms: Negative except as documented in HPI. ENMT symptoms: Negative except as documented in HPI. Respiratory symptoms: Negative except as documented in HPI. Cardiovascular symptoms: Negative except as documented in HPI. Gastrointestinal symptoms: Negative except as documented in HPI. Genitourinary symptoms: Negative except as documented in HPI. Musculoskeletal symptoms: Negative except as documented in HPI. Neurologic symptoms: Negative except as documented in HPI. Psychiatric symptoms: Negative except as documented in HPI. Endocrine symptoms: Negative except as documented in HPI. PFSH ED PFSH: Medical History ESRD (end stage renal disease) Fracture of greater tuberosity of left humerus Fracture of humeral head, left, closed Stage III pressure ulcer of sacral region Decubitus ulcer of sacral region, unstageable Abdominal wall cellulitis Failure to thrive Weakness Toe fracture Contusion of right foot ESRD (end stage renal disease) Rash Seropositive rheumatoid arthritis Left foot pain Long-term insulin use Diabetes type 2, uncontrolled Appetite loss MCI (mild cognitive impairment) Hypothyroidism Insulin dependent type 2 diabetes mellitus COVID-19 Hypertension Anxiety ESRD (end stage renal disease) Diabetes Hyperlipidemia Chronic back pain De Quervain's tenosynovitis Surgical History Status post colonoscopy S/P dialysis catheter insertion Removed 07/14/20 S/P arteriovenous (AV) fistula creation History of temporal artery biopsy H/O dilation and curettage H/O section Hx of cholecystectomy History of appendectomy History of carpal tunnel repair H/O neck surgery fusion Family History Father Bleeding disorder Other Diabetes Heart disease Hyperlipidemia Hypertension Kidney problem Migraines Stroke Denies family history of Anesthesia complication Social History Smoking and tobacco/nicotine status: never used tobacco/nicotine Second hand smoke exposure: No Alcohol intake: never Substance/Drug Use: never Adopted: No Caregiver/support person: Yes Lives independently: Yes Household members: family Housing: House Marital status: Single Highest education level completed: High School Graduate service: No Current occupational status: disabled Current occupational exposures/hazards: No Pets and animals: Yes Pets & animals: dog(s) Sexually active: No Do you think of yourself as: Straight/Heterosexual Current gender identity: Female Sabina/Orthodoxy: Yazidism Special sabina needs: No Agree to transfusion: No Physical Exam Narrative: EXAM NARRATIVE: General: Alert, no acute distress. Skin: Warm, dry. Head: Normocephalic, old and new bruising to the left forehead and left cheek. Neck: Supple, trachea midline. Eye: Extraocular movements are intact. Ears, nose, mouth and throat: mucosa moist. Cardiovascular: Regular, Normal peripheral perfusion. Respiratory: Lungs are clear to auscultation, respirations are non-labored, breath sounds are equal, Symmetrical chest wall expansion. Gastrointestinal: Soft, Nontender, Non distended Musculoskeletal: Normal ROM, no deformity. Neurological: Alert and oriented, No focal neurological deficit observed. Psychiatric: Cooperative, appropriate mood & affect. Course Vital Signs: Vital signs: Vital Signs Temperature 97.2 F L 11/02/23 07:40 Pulse Rate 77 11/02/23 09:00 Respiratory Rate 20 H 11/02/23 07:40 Blood Pressure 98/59 11/02/23 09:00 Pulse Oximetry 100 11/02/23 09:00 Oxygen Delivery Me thod Room Air 11/02/23 09:00 Oxygen Flow Rate 2 11/02/23 07:40 MDM - Fall Medical Decision Making CT head: Old encephalomalacia but no acute intracranial process. no intracranial hemorrhage, no evidence of infarct. no evidence of acute fracture.This was reviewed and interpreted by myself the ER physician. Assessment and plan: Fall Head injury - Discharged home - Discussed plan with patient. Answered any questions. - Evaluation and treatment of this problem were appropriate in the emergency setting. Lab Data Radiology Impressions Face CT 11/02/23 08:14 IMPRESSION: No acute facial bone fracture. Head CT 11/02/23 08:14 IMPRESSION: 1. No acute intracranial hemorrhage or edema. 2. Large remote infarct involving the posterior RIGHT frontal and parietal lobes with cortical calcification. No new infarct or sulcal effacement. 3. No fracture. 4. Mild atrophy and volume loss otherwise. All radiology interpretation(s) finalized by discharge Discharge Plan Discharge Patient Disposition: Home Clinical Impression: Fall, Head injury Condition: Stable Prescriptions: No Action (DME) Dexcom G6 Hotel Front Desk Agent Misc See Rx Instructions .Route Qty: 1 0RF Rx Instructions: Check BS continuously (DME) Dexcom G6 Sensor Device See Rx Instructions .Route Qty: 9 3RF Rx Instructions: Change every 10 days. gabapentin 100 mg capsule 100 mg PO TID Qty: 90 4RF (DME) Dexcom G6 Transmitter Device See Rx Instructions .Route Qty: 3 3RF Rx Instructions: Change every 90 days. Glucagon Emergency Kit (human) 1 mg recon soln 1 mg SUBCUT Q20M PRN (Reason: hypoglycemia) Qty: 1 3RF Rx Instructions: until target blood sugar attained amlodipine [Norvasc] 2.5 mg tablet 2.5 mg PO DAILY carbidopa-levodopa 25-100 mg tablet See Rx Instructions .ROUTE .COMPLEX Rx Instructions: 0.5 tab orally BEFORE DIALYSIS Auryxia 210 mg iron tablet 630 mg PO TID@08,12,20 Rx Instructions: TAKE WITH MEALS ropinirole 0.5 mg tablet 0.5 mg PO QPM clopidogrel 75 mg tablet 75 mg PO DAILY Qty: 30 0RF escitalopram oxalate 20 mg tablet 20 mg PO DAILY rosuvastatin 20 mg tablet 20 mg PO BEDTIME RenaPlex-D 800 mcg-12.5 mg -2,000 unit tablet metoprolol succinate 50 mg tablet extended release 24 hr 50 mg PO DAILY levothyroxine 50 mcg tablet 50 mcg PO DAILY cyclobenzaprine 10 mg tablet 10 mg PO Q8H PRN (Reason: MUSCLE SPASMS) Qty: 14 0RF cetirizine 10 mg Tablet 10 mg PO DAILY ibuprofen [Advil Liqui-Gel] 200 mg Capsule 200 mg PO .Q4-6H PRN (Reason: Pain) diphenhydramine HCl [Benadryl] 25 mg Capsule 25 mg PO BID PRN (Reason: ALLERGIES) omeprazole 20 mg Capsule,Delayed Release(Dr/Ec) 20 mg PO BEDTIME Santyl 250 unit/gram ointment 1 applic topical BID Discharge Orders: Discharge ED (Routine); Ordered 11/02/23 Ordered By: Tiera Richardson Referrals: Vivienne Schulz MD [Primary Care Provider] - Discharge Diet: Usual diet Discharge Activity: Increase activity as tolerated Patient Instructions: Fall Prevention for Older Adults (ED) Activity Restrictions/Additional Instructions: Thank you for choosing [facility] for your healthcare needs today. Please realize this is an emergency room and that we are providing you with a medical screening exam and this may not be complete and all inclusive of all the testing and or work up that you may need to determine your ailment or severity of your illness. You have been screened and evaluated and felt safe for discharge. Health conditions do change or evolve sometimes and as such it is important that you follow up with your Primary Doctor to be re checked, 3-5 days is a general good time frame for follow up. You are always welcome to return to the ED for re assessment if your symptoms are worsening or you have new concerns Coding Level of Care Code ED Clinical Trials Assistant for Danial Barfield
[2023-11-02 09:00] VITALS: BP 98/59; PULSE 77; O2SAT 100
[2023-11-02 10:19] VITALS: BP 113/51; PULSE 72; O2SAT 100
== END 2023-11-02 10:20 | disposition home or self-care (01) ==
PROVIDERS: Emergency Provider Emergency Medicine; PCP Internal Medicine
DX: S00.83XA Contusion of other part of head, initial encounter (principal); Z79.02 Long term (current) use of antithrombotics/antiplatelets; E11.22 Type 2 diabetes mellitus with diabetic chronic kidney disease; I12.0 Hypertensive chronic kidney disease with stage 5 chronic kidney disease or end stage renal disease; N18.6 End stage renal disease; E78.5 Hyperlipidemia, unspecified; Z86.73 Personal history of transient ischemic attack (TIA), and cerebral infarction without residual deficits; W07.XXXA Fall from chair, initial encounter
CPT/HCPCS: 70450; 70486; 99284

== ENCOUNTER 2023-11-23 01:19 | Emergency (ER) | payer MEDICARE, MEDICAID, SELFPAY ==
[2023-11-23 01:20] VITALS: BP 183/90; PULSE 96; RESP 18; TEMP 36.6; O2SAT 100; BMI 39.0
--- NOTE | 2023-11-23 01:25 | CTR_ITS ---
PROCEDURE INFORMATION: Exam: CT Head Without Contrast Exam date and time: 11/23/2023 1:34 AM Age: 58 years old Clinical indication: Injury or trauma; Fall; Blunt trauma (contusions or hematomas); Additional info: Fall, head injury TECHNIQUE: Imaging protocol: Computed tomography of the head without contrast. Radiation optimization: All CT scans at this facility use at least one of these dose optimization techniques: automated exposure control; mA and/or kV adjustment per patient size (includes targeted exams where dose is matched to clinical indication); or iterative reconstruction. COMPARISON: CT head wo con* [id number] 11/02/2023 8:27 AM RADIATION DOSE METRICS: Total DLP (mGy-cm): 1162.68 FINDINGS: Brain: No acute intracranial abnormality. Encephalomalacia in the right parietal lobe redemonstrated and similar to the prior examination. Cerebral ventricles: No ventriculomegaly. Paranasal sinuses: Visualized sinuses are unremarkable. No fluid levels. Mastoid air cells: Visualized mastoid air cells are well aerated. Bones: Unremarkable. No acute fracture. Soft tissues: Soft tissue hematoma overlying the right frontal skull near the midline with no underlying skull fracture. CT/CT head wo con* [id number] IMPRESSION: 1. No acute intracranial abnormality. 2. Soft tissue hematoma overlying the right frontal skull near the midline with no underlying skull fracture. 3. Encephalomalacia in the right parietal lobe redemonstrated and similar to the prior examination.
--- NOTE | 2023-11-23 01:42 | W.ED.HEATRA ---
HPI - Head Injury General: Chief complaint: Head Injury Stated complaint: FALL Time Seen by Provider: 11/23/23 01:24 History of Present Illness: 58-year-old female with a history of end-stage renal disease chronic pain, diabetes, obesity, who presents emergency room by ambulance after falling out of her chair and hitting her head. She has some old bruising near from a head injury recently. She was flown from the scene to [place] after that last injury. Apparently she did not have any kind of acute hemorrhage or fractures at the time. Denies she had no loss of consciousness. No altered mental status. No nausea or vomiting. She is alert and oriented on presentation. Related Data Home Medications Medication Instructions Recorded Confirmed carbidopa 25 mg-levodopa 100 mg See Rx Instructions .Route .COMPLEX 05/20/20 11/02/23 tablet ferric citrate 210 mg iron tablet 630 mg PO TID@08,12,20 05/20/20 11/02/23 (Auryxia) ropinirole 0.5 mg tablet 0.5 mg PO QPM 06/21/20 11/02/23 amlodipine 2.5 mg tablet (Norvasc) 2.5 mg PO DAILY 09/28/22 11/02/23 levothyroxine 50 mcg tablet 50 mcg PO DAILY 08/24/23 11/02/23 metoprolol succinate 50 mg 50 mg PO DAILY 08/24/23 11/02/23 tablet,extended release 24 hr cetirizine 10 mg tablet 10 mg PO DAILY 09/16/23 11/02/23 collagenase clostridium histo. 250 1 applic topical BID 09/16/23 09/16/23 unit/gram topical ointment (Santyl) diphenhydramine HCl 25 mg capsule 25 mg PO BID PRN ALLERGIES 09/16/23 11/02/23 (Benadryl) ibuprofen 200 mg capsule (Advil 200 mg PO .Q4-6H PRN Pain 09/16/23 11/02/23 Liqui-Gel) omeprazole 20 mg capsule,delayed 20 mg PO BEDTIME 09/16/23 11/02/23 release escitalopram oxalate 20 mg tablet 20 mg PO DAILY 11/02/23 11/02/23 rosuvastatin 20 mg tablet 20 mg PO BEDTIME 11/02/23 11/02/23 vit B,C-folic ac 800 mcg-zinc 12.5 tab 11/02/23 mg-selen-D3 2,000 unit-vit E tablet (RenaPlex-D) Previous Rx's Medication Instructions Recorded blood-glucose meter,continuous #1 ea 09/24/21 (Dexcom G6 Slip Bridge Operator) blood-glucose sensor (Dexcom G6 #9 ea 09/24/21 Sensor device) clopidogrel 75 mg tablet 75 mg PO DAILY #30 tabs 11/27/21 blood-glucose transmitter (Dexcom #3 ea 12/24/21 G6 Transmitter device) glucagon 1 mg solution for 1 mg SUBCUT Q20M PRN hypoglycemia 12/24/21 injection (Glucagon Emergency Kit) #1 ea gabapentin 100 mg capsule 100 mg PO TID #90 caps 04/21/23 cyclobenzaprine 10 mg tablet 10 mg PO Q8H PRN MUSCLE SPASMS #14 09/04/23 tabs Allergies Allergy/AdvReac Type Severity Reaction Status Date / Time acetaminophen Allergy Unknown ALGY-Hives Verified 11/23/23 01:26 gabapentin Allergy Unknown ALGY-Hives Verified 11/23/23 01:26 codeine Allergy ALGY-Hives Verified 11/23/23 01:26 fentanyl Allergy ALGY-Hives Verified 11/23/23 01:26 hydrocodone Allergy ALGY-Hives Verified 11/23/23 01:26 influenza virus vaccine qs Allergy ALGY-Hives Verified 11/23/23 01:26 [id number](65 years up) [From Fluad Quad (65y up)(PF)] Iodinated Contrast Media Allergy ALGY-Anaphy Verified 11/23/23 01:26 laxis kiwi Allergy ALGY-Anaphy Verified 11/23/23 01:26 laxis lisinopril Allergy ADR-Cough Verified 11/23/23 01:26 NSAIDS (Non-Steroidal Allergy ALGY-Hives Verified 11/23/23 01:26 Anti-Inflamma oxycodone Allergy ALGY-Hives Verified 11/23/23 01:26 pineapple Allergy ALGY-Anaphy Verified 11/23/23 01:26 laxis promethazine Allergy Unknown Verified 11/23/23 01:26 strawberry Allergy ALGY-Anaphy Verified 11/23/23 01:26 laxis tramadol Allergy ALGY-Hives Verified 11/23/23 01:26 vaccine adjuvant emulsion Allergy ALGY-Hives Verified 11/23/23 01:26 [id number] [From FluSaavn (65y up)(PF)] Review of Systems Narrative: Constitutional symptoms: Negative except as documented in HPI. Skin symptoms: Negative except as documented in HPI. Eye symptoms: Negative except as documented in HPI. ENMT symptoms: Negative except as documented in HPI. Respiratory symptoms: Negative except as documented in HPI. Cardiovascular symptoms: Negative except as documented in HPI. Gastrointestinal symptoms: Negative except as documented in HPI. Genitourinary symptoms: Negative except as documented in HPI. Musculoskeletal symptoms: Negative except as documented in HPI. Neurologic symptoms: Negative except as documented in HPI. Psychiatric symptoms: Negative except as documented in HPI. Endocrine symptoms: Negative except as documented in HPI. PFSH ED PFSH: Medical History ESRD (end stage renal disease) Fracture of greater tuberosity of left humerus Fracture of humeral head, left, closed Stage III pressure ulcer of sacral region Decubitus ulcer of sacral region, unstageable Abdominal wall cellulitis Failure to thrive Weakness Toe fracture Contusion of right foot ESRD (end stage renal disease) Rash Seropositive rheumatoid arthritis Left foot pain Long-term insulin use Diabetes type 2, uncontrolled Appetite loss MCI (mild cognitive impairment) Hypothyroidism Insulin dependent type 2 diabetes mellitus COVID-19 Hypertension Anxiety ESRD (end stage renal disease) Diabetes Hyperlipidemia Chronic back pain De Quervain's tenosynovitis Surgical History Status post colonoscopy S/P dialysis catheter insertion Removed 07/14/20 S/P arteriovenous (AV) fistula creation History of temporal artery biopsy H/O dilation and curettage H/O section Hx of cholecystectomy History of appendectomy History of carpal tunnel repair H/O neck surgery fusion Family History Father Bleeding disorder Other Diabetes Heart disease Hyperlipidemia Hypertension Kidney problem Migraines Stroke Denies family history of Anesthesia complication Social History Smoking and tobacco/nicotine status: never used tobacco/nicotine Second hand smoke exposure: No Alcohol intake: never Substance/Drug Use: never Adopted: No Caregiver/support person: Yes Lives independently: Yes Household members: family Housing: House Marital status: Single Highest education level completed: High School Graduate service: No Current occupational status: disabled Current occupational exposures/hazards: No Pets and animals: Yes Pets & animals: dog(s) Sexually active: No Do you think of yourself as: Straight/Heterosexual Current gender identity: Female Sabina/Confucianist: Uatsdin Special sabina needs: No Agree to transfusion: No Physical Exam Narrative: EXAM NARRATIVE: General: Alert, no acute distress. Skin: Warm, dry. Head: Normocephalic, bruising of the left forehead and around the eyes. Most of this appears old. Neck: Supple, trachea midline. Eye: Extraocular movements are intact. Ears, nose, mouth and throat: mucosa moist. Cardiovascular: Regular, Normal peripheral perfusion. Respiratory: Lungs are clear to auscultation, respirations are non-labored, breath sounds are equal, Symmetrical chest wall expansion. Gastrointestinal: Soft, Nontender, Non distended Musculoskeletal: Normal ROM, no deformity. Neurological: Alert and oriented, No focal neurological deficit observed. Psychiatric: Cooperative, appropriate mood & affect. Course Vital Signs: Vital signs: Vital Signs Temperature 97.9 F 11/23/23 01:20 Pulse Rate 94 11/23/23 02:50 Respiratory Rate 18 11/23/23 02:50 Blood Pressure 146/76 11/23/23 02:50 Pulse Oximetry 93 11/23/23 02:50 Oxygen Delivery Me thod Room Air 11/23/23 01:20 MDM - Head Injury Medcial Decision Making CT head: Old encephalomalacia. No acute intracranial process. no intracranial hemorrhage, no evidence of infarct. no evidence of acute fracture.This was reviewed and interpreted by myself the ER physician. Assessment and plan: Head injury - Discharged home - Discussed plan with patient. Answered any questions. - Evaluation and treatment of this problem were appropriate in the emergency setting. Lab Data Radiology Impressions Head CT 11/23/23 01:25 IMPRESSION: 1. No acute intracranial abnormality. 2. Soft tissue hematoma overlying the right frontal skull near the midline with no underlying skull fracture. 3. Encephalomalacia in the right parietal lobe redemonstrated and similar to the prior examination. All radiology interpretation(s) finalized by discharge Discharge Plan Discharge Patient Disposition: Home Clinical Impression: Closed head injury Condition: Stable Prescriptions: No Action (DME) Dexcom G6 Slip Bridge Operator Misc See Rx Instructions .Route Qty: 1 0RF Rx Instructions: Check BS continuously (DME) Dexcom G6 Sensor Device See Rx Instructions .Route Qty: 9 3RF Rx Instructions: Change every 10 days. gabapentin 100 mg capsule 100 mg PO TID Qty: 90 4RF (DME) Dexcom G6 Transmitter Device See Rx Instructions .Route Qty: 3 3RF Rx Instructions: Change every 90 days. Glucagon Emergency Kit (human) 1 mg recon soln 1 mg SUBCUT Q20M PRN (Reason: hypoglycemia) Qty: 1 3RF Rx Instructions: until target blood sugar attained amlodipine [Norvasc] 2.5 mg tablet 2.5 mg PO DAILY carbidopa-levodopa 25-100 mg tablet See Rx Instructions .ROUTE .COMPLEX Rx Instructions: 0.5 tab orally BEFORE DIALYSIS Auryxia 210 mg iron tablet 630 mg PO TID@08,12,20 Rx Instructions: TAKE WITH MEALS ropinirole 0.5 mg tablet 0.5 mg PO QPM clopidogrel 75 mg tablet 75 mg PO DAILY Qty: 30 0RF escitalopram oxalate 20 mg tablet 20 mg PO DAILY rosuvastatin 20 mg tablet 20 mg PO BEDTIME RenaPlex-D 800 mcg-12.5 mg -2,000 unit tablet metoprolol succinate 50 mg tablet extended release 24 hr 50 mg PO DAILY levothyroxine 50 mcg tablet 50 mcg PO DAILY cyclobenzaprine 10 mg tablet 10 mg PO Q8H PRN (Reason: MUSCLE SPASMS) Qty: 14 0RF cetirizine 10 mg Tablet 10 mg PO DAILY ibuprofen [Advil Liqui-Gel] 200 mg Capsule 200 mg PO .Q4-6H PRN (Reason: Pain) diphenhydramine HCl [Benadryl] 25 mg Capsule 25 mg PO BID PRN (Reason: ALLERGIES) omeprazole 20 mg Capsule,Delayed Release(Dr/Ec) 20 mg PO BEDTIME Santyl 250 unit/gram ointment 1 applic topical BID Discharge Orders: Discharge ED (Routine); Ordered 11/23/23 Ordered By: Tiera Richardson Referrals: Vivienne Schulz MD [Primary Care Provider] - Discharge Diet: Usual diet Discharge Activity: Increase activity as tolerated Patient Instructions: Head Injury (ED) Activity Restrictions/Additional Instructions: Thank you for choosing [facility] for your healthcare needs today. Please realize this is an emergency room and that we are providing you with a medical screening exam and this may not be complete and all inclusive of all the testing and or work up that you may need to determine your ailment or severity of your illness. You have been screened and evaluated and felt safe for discharge. Health conditions do change or evolve sometimes and as such it is important that you follow up with your Primary Doctor to be re checked, 3-5 days is a general good time frame for follow up. You are always welcome to return to the ED for re assessment if your symptoms are worsening or you have new concerns Coding Level of Care Code ED Production Operations Inspector for Danial Barfield
[2023-11-23 02:50] VITALS: BP 146/76; PULSE 94; RESP 18; O2SAT 93
[2023-11-23 03:11] VITALS: BP 146/76; PULSE 94; RESP 18; TEMP 36.6; O2SAT 93
== END 2023-11-23 03:12 | disposition home or self-care (01) ==
PROVIDERS: Emergency Provider Emergency Medicine; PCP Internal Medicine
DX: S00.83XA Contusion of other part of head, initial encounter (principal); Z79.02 Long term (current) use of antithrombotics/antiplatelets; E11.22 Type 2 diabetes mellitus with diabetic chronic kidney disease; I12.0 Hypertensive chronic kidney disease with stage 5 chronic kidney disease or end stage renal disease; N18.6 End stage renal disease; E78.5 Hyperlipidemia, unspecified; W07.XXXA Fall from chair, initial encounter
CPT/HCPCS: 70450; 99284

== ENCOUNTER 2023-11-23 06:52 | Emergency (ER) | payer MEDICARE, MEDICAID, SELFPAY ==
[2023-11-23 06:56] VITALS: BP 153/71; PULSE 95; TEMP 36.5; O2SAT 96
--- NOTE | 2023-11-23 07:00 | XR_ITS ---
WS: [id number] Examination: XR chest 1V portable [id number] Reason for Exam: dyspnea/cough Date: November 23, 2023 Comparison: September 16, 2023 Findings: The heart is prominent in size. The mediastinum not widened The lung markings are diffusely increased bilaterally. Pulmonary venous hypertension could have this appearance. There is mild thickening of the fissures. No large effusions are seen. There is no dense consolidation. XR/XR chest 1V portable [id number] Impression: The heart is prominent in size. Findings suggest pulmonary venous hypertension.
--- NOTE | 2023-11-23 07:17 | ECG_ITS ---
[facility] Test Date: 2023-11-23 Pat Name: Elvi Kaiser Department: Room: Gender: Female Director And Professor: : [id number] Requested By: Jd Morillo Order Number: [id number] Doug MD: Stoney Montoya M.D. Measurements Intervals [place] Rate: 92 P: -23 NE: 159 QRS: -51 QRSD: 112 T: 73 QT: 407 QTc: 504 Interpretive Statements SINUS RHYTHM POSSIBLE LEFT ATRIAL ENLARGEMENT [-0.1mV P-WAVE IN V1/V2] LEFT AXIS DEVIATION [QRS AXIS < -30] RIGHT BUNDLE BRANCH BLOCK [120+ ms QRS DURATION, UPRIGHT V1, 40+ ms S IN I/aVL/V4/V5/V6] POSSIBLE ANTERIOR MYOCARDIAL INFARCTION , OF INDETERMINATE AGE [30 ms Q WAVE IN V3/V4, OR R < 0.2 mV IN V4] ST DEPRESSION, CONSIDER SUBENDOCARDIAL INJURY [0.1+ mV ST DEPRESSION] Compared to ECG 09/16/2023 15:20:20 Left-axis deviation now present Right bundle-branch block now present Intraventricular conduction delay no longer present Myocardial infarct finding still present Electronically Signed On 11-23-2023 11:19:32 CDT by Stoney Montoya M.D. [id number]
--- NOTE | 2023-11-23 07:22 | ED_ITS ---
HPI - General Adult 2 General: Chief complaint: General Medical Stated complaint: weakness Time Seen by Provider: 11/23/23 06:59 History of Present Illness: 58-year-old female presents emergency ro om via EMS with difficult to wake this morning. Family could not wake her up they called EMS. EMS reported by the time they arrived she was awake and alert on arrival here she is awake alert oriented swerve time place person and intent. She recalls the events she explains is just being very tired she denies any fever sweats chills flulike symptoms any nausea vomiting diarrhea no dysuria urgency or frequency or abdominal pain. She has had some hypoglycemia in the past but currently does not have insulin on her medication list. She has bruising on the left side of her face in the subcutaneous nodule suspect from coagulated blood from a previous fall. She was seen about 3 weeks ago has not fallen since. CT done at that time did not show any acute pathology Associated symptoms: Deny chest pain, dyspnea or rash Related Data Home Medications Medication Instructions Recorded Confirmed carbidopa 25 mg-levodopa 100 mg See Rx Instructions .Route .COMPLEX 05/20/20 11/23/23 tablet ferric citrate 210 mg iron tablet 630 mg PO TID@08,12,20 05/20/20 11/23/23 (Auryxia) ropinirole 0.5 mg tablet 0.5 mg PO QPM 06/21/20 11/23/23 amlodipine 2.5 mg tablet (Norvasc) 2.5 mg PO DAILY 09/28/22 11/23/23 levothyroxine 50 mcg tablet 50 mcg PO DAILY 08/24/23 11/23/23 metoprolol succinate 50 mg 50 mg PO DAILY 08/24/23 11/23/23 tablet,extended release 24 hr cetirizine 10 mg tablet 10 mg PO DAILY 09/16/23 11/23/23 collagenase clostridium histo. 250 1 applic topical BID 09/16/23 11/23/23 unit/gram topical ointment (Santyl) diphenhydramine HCl 25 mg capsule 25 mg PO BID PRN ALLERGIES 09/16/23 11/23/23 (Benadryl) ibuprofen 200 mg capsule (Advil 200 mg PO .Q4-6H PRN Pain 09/16/23 11/23/23 Liqui-Gel) omeprazole 20 mg capsule,delayed 20 mg PO BEDTIME 09/16/23 11/23/23 release escitalopram oxalate 20 mg tablet 20 mg PO DAILY 11/02/23 11/23/23 rosuvastatin 20 mg tablet 20 mg PO BEDTIME 11/02/23 11/23/23 vit B,C-folic ac 800 mcg-zinc 12.5 1 tab PO DAILY 11/02/23 11/23/23 mg-selen-D3 2,000 unit-vit E tablet (RenaPlex-D) Previous Rx's Medication Instructions Recorded blood-glucose meter,continuous #1 ea 09/24/21 (Dexcom G6 Security Systems Technician) blood-glucose sensor (Dexcom G6 #9 ea 09/24/21 Sensor device) clopidogrel 75 mg tablet 75 mg PO DAILY #30 tabs 11/27/21 blood-glucose transmitter (Dexcom #3 ea 12/24/21 G6 Transmitter device) glucagon 1 mg solution for 1 mg SUBCUT Q20M PRN hypoglycemia 12/24/21 injection (Glucagon Emergency Kit) #1 ea gabapentin 100 mg capsule 100 mg PO TID #90 caps 04/21/23 cyclobenzaprine 10 mg tablet 10 mg PO Q8H PRN MUSCLE SPASMS #14 09/04/23 tabs cefdinir 300 mg capsule 300 mg PO BID #14 caps 11/23/23 Allergies Allergy/AdvReac Type Severity Reaction Status Date / Time acetaminophen Allergy Unknown ALGY-Hives Verified 11/23/23 07:01 gabapentin Allergy Unknown ALGY-Hives Verified 11/23/23 07:01 codeine Allergy ALGY-Hives Verified 11/23/23 07:01 fentanyl Allergy ALGY-Hives Verified 11/23/23 07:01 hydrocodone Allergy ALGY-Hives Verified 11/23/23 07:01 influenza virus vaccine qs Allergy ALGY-Hives Verified 11/23/23 07:01 [id number](65 years up) [From Fluad Quad 2019-(65y up)()] Iodinated Contrast Media Allergy ALGY-Anaphy Verified 11/23/23 07:01 laxis kiwi Allergy ALGY-Anaphy Verified 11/23/23 07:01 laxis lisinopril Allergy ADR-Cough Verified 11/23/23 07:01 NSAIDS (Non-Steroidal Allergy ALGY-Hives Verified 11/23/23 07:01 Anti-Inflamma oxycodone Allergy ALGY-Hives Verified 11/23/23 07:01 pineapple Allergy ALGY-Anaphy Verified 11/23/23 07:01 laxis promethazine Allergy Unknown Verified 11/23/23 07:01 strawberry Allergy ALGY-Anaphy Verified 11/23/23 07:01 laxis tramadol Allergy ALGY-Hives Verified 11/23/23 07:01 vaccine adjuvant emulsion Allergy ALGY-Hives Verified 11/23/23 07:01 [id number] [From tagWALLET (65y up)(PF)] Review of Systems 2 Const: Denies: fever(s) or chills Card: Denies: chest pain Resp: Denies: dyspnea GI: Denies: abdominal pain : Denies: dysuria, urinary frequency or urinary urgency Musc: Denies: neck pain or back pain Skin/Breast: Denies: rash PFSH ED 2 PFSH: Medical History Sacral decubitus ulcer, stage III Cellulitis Cystitis Elevated troponin Hyperkalemia Hyponatremia Sacral decubitus ulcer UTI (urinary tract infection) Acute encephalopathy ESRD (end stage renal disease) Fracture of greater tuberosity of left humerus Fracture of humeral head, left, closed Stage III pressure ulcer of sacral region Decubitus ulcer of sacral region, unstageable Abdominal wall cellulitis Failure to thrive Weakness Toe fracture Contusion of right foot ESRD (end stage renal disease) Rash Seropositive rheumatoid arthritis Left foot pain Long-term insulin use Diabetes type 2, uncontrolled Appetite loss MCI (mild cognitive impairment) Hypothyroidism Insulin dependent type 2 diabetes mellitus COVID-19 Hypertension Anxiety ESRD (end stage renal disease) Diabetes Hyperlipidemia Chronic back pain De Quervain's tenosynovitis Surgical History Status post colonoscopy S/P dialysis catheter insertion Removed 07/14/20 S/P arteriovenous (AV) fistula creation History of temporal artery biopsy H/O dilation and curettage H/O section Hx of cholecystectomy History of appendectomy History of carpal tunnel repair H/O neck surgery fusion Family History Father Bleeding disorder Other Diabetes Heart disease Hyperlipidemia Hypertension Kidney problem Migraines Stroke Denies family history of Anesthesia complication Social History Smoking and tobacco/nicotine status: never used tobacco/nicotine Second hand smoke exposure: No Alcohol intake: never Substance/Drug Use: never Adopted: No Caregiver/support person: Yes Lives independently: Yes Household members: family Housing: House Marital status: Single Highest education level completed: High School Graduate service: No Current occupational status: disabled Current occupational exposures/hazards: No Pets and animals: Yes Pets & animals: dog(s) Sexually active: No Do you think of yourself as: Straight/Heterosexual Current gender identity: Female Sabina/Yarsani: Jehovah'S Witness Special sabina needs: No Agree to transfusion: No Physical Exam 2 Const: COMMON NORMALS: no acute distress GENERAL APPEARANCE: cooperative and comfortable ORIENTATION/CONSCIOUSNESS: Yes awake, Yes oriented to person, Yes oriented to place and Yes oriented to time HENMT: COMMON NORMALS: normocephalic and hearing grossly normal bilaterally HEAD & SCALP: normocephalic OTHER: Healing bruises and hematoma on the left side of the face and forehead this is several weeks old there is a solid nodule suspect coagulated blood from previous fall no signs of infection. Resp: COMMON NORMALS: normal respiratory effort, No retractions, No use of accessory muscles and clear to auscultation bilaterally AUSCULTATION: clear to auscultation bilaterally Cardio: COMMON NORMALS: regular rate, regular rhythm and No murmurs present (Cardio) RATE: regular rate RHYTHM: regular rhythm GI: COMMON NORMALS: Soft to palpation and No hepatosplenomegaly present A USCULTATION: Yes normoactive bowel sounds PALPATION: Yes Soft to palpation, No Tenderness to palpation present (GI), No Guarding due to palpation present (GI) and Yes No hepatosplenomegaly present Extremity: COMMON NORMALS: normal to inspection, capillary refill normal, no clubbing, cyanosis or edema, no calf tenderness and no pedal edema Neuro: SENSORIUM/ORIENTATION: Yes oriented to person, Yes oriented to place and Yes oriented to time Skin: COMMON NORMALS: no rashes or lesions noted GENERAL SKIN EXAM: no rashes or lesions noted Course 2 Vital Signs: Vital signs: Vital Signs Temperature 97.7 F 11/23/23 11:52 Pulse Rate 95 11/23/23 11:52 Blood Pressure 140/82 11/23/23 11:52 Pulse Oximetry 96 11/23/23 11:52 Oxygen Delivery Me thod Room Air 11/23/23 08:27 MDM - General Adult Medical Decision Making Patient seemed excessively sleepy but was can easily arousable each time she does have a mild cystitis. Reviewed her labs and imaging. She is anemic but this has been chronic she is not at the point which she would need transfusion. Considered observation however patient became more awake and she is insistent on going home she is now awake and alert sitting up in the room. We had needed some oxygen when she drifts off which is not atypical for her she has sleep apnea and often uses oxygen supplementation at night. We have made arrangements for her to have catch-up dialysis tomorrow at her usual dialysis clinic. Will discharge her home on cefdinir urine has been cultured. Lab Data 11/23/23 07:42 11/23/23 07:42 Radiology Impressions Chest X-Ray 11/23/23 07:00 Impression: The heart is prominent in size. Findings suggest pulmonary venous hypertension. Laboratory Results WBC 6.35 10^3/uL (3.29-11.43) 11/23/23 07:42 RBC 2.77 10^6/uL (3.85-5.65) L 11/23/23 07:42 Hgb 8.70 g/dL (11.27-16.99) L 11/23/23 07:42 Hct 29.0 % (36-47) L 11/23/23 07:42 MCV 104.7 fl (85-98) H 11/23/23 07:42 MCH 31.4 pg (27-33) 11/23/23 07:42 MCHC 30.0 g/dL (30-55) 11/23/23 07:42 RDW 15.8 % (12.1-15.1) H 11/23/23 07:42 Plt Count 304 10^3/cmm (157-399) 11/23/23 07:42 MPV 9.3 fL (7.4-10.4) 11/23/23 07:42 Neut % (Auto) 82.2 % 11/23/23 07:42 Lymph % (Auto) 9.3 % 11/23/23 07:42 [place] % (Auto) 8.2 % 11/23/23 07:42 Eos % (Auto) 0.0 % 11/23/23 07:42 Baso % (Auto) 0.0 % 11/23/23 07:42 Neut # (Auto) 5.22 10^3/uL (1.8-7.7) 11/23/23 07:42 Lymph # (Auto) 0.6 10^3/uL (0.8-4.8) L 11/23/23 07:42 [place] # (Auto) 0.5 10^3/uL (0.2-0.9) 11/23/23 07:42 Eos # (Auto) 0.0 10^3/uL (0.0-0.8) 11/23/23 07:42 Baso # (Auto) 0.0 10^3/uL (0.0-0.1) 11/23/23 07:42 Nucleated RBC % (auto) 0 % 11/23/23 07:42 Nucleated RBCs # 0.0 /100WBC 11/23/23 07:42 Specimen Type Arterial 11/23/23 10:01 Sample Site Radial, left 11/23/23 10:01 ABG pH 7.42 (7.35-7.45) 11/23/23 10:01 ABG pCO2 46.4 mmHg (35-45) H 11/23/23 10:01 ABG pO2 77.7 mmHg (80.0-100.0) L 11/23/23 10:01 ABG PO2/FiO2 Ratio 370 11/23/23 10:01 ABG HCO3 30.2 mmol/L (22-26) H 11/23/23 10:01 ABG O2 Saturation 96.9 11/23/23 10:01 ABG Base Excess 5.2 mmol/L (-2.0-2.0) H 11/23/23 10:01 Marquis Test Pos 11/23/23 10:01 A-a O2 Gradient 2.0 mmHg (5-10) L 11/23/23 10:01 Hematocrit 25.0 % (37-47) L 11/23/23 10:01 Hgb O2 Saturation 97.1 % (95-100) 11/23/23 10:01 Carboxyhemoglobin 1.5 %THgb (0.4-20.1) 11/23/23 10:01 Methemoglobin < 0.0 % (0.4-1.5) L 11/23/23 10:01 Total Hemoglobin 8.2 g/dL (12-16) L 11/23/23 10:01 Sodium 137.0 mmol/L (131-143) 11/23/23 10:01 Potassium 3.9 mmol/L (3.5-5.0) 11/23/23 10:01 Glucose mg/dL (70-115) 11/23/23 10:01 Ionized Calcium 1.2 mmol/L (1.1-1.4) 11/23/23 10:01 O2 Delivery Device Room air 11/23/23 10:01 FiO2 21.0 % 11/23/23 10:01 Support Services Manager ID Cak 11/23/23 10:01 Sodium 136 mmol/L (136-145) 11/23/23 07:42 Potassium 3.8 mmol/L (3.5-5.1) 11/23/23 07:42 Chloride 94 mmol/L (98-107) L 11/23/23 07:42 Carbon Dioxide 27 mmol/L (22-29) 11/23/23 07:42 Anion Gap 18.8 (5-19) 11/23/23 07:42 BUN 28 mg/dL (6-20) H 11/23/23 07:42 Creatinine 4.4 mg/dL (0.5-0.9) H 11/23/23 07:42 GFR Calculation 10.3 mL/min (90-130) L 11/23/23 07:42 Glucose 128 mg/dL (65-115) H 11/23/23 07:42 Calculated Osmolality 289 mOsm/kg (285-295) 11/23/23 07:42 Calcium 9.1 mg/dL (8.5-10.5) 11/23/23 07:42 Total Bilirubin 0.3 mg/dL (0.15-1.2) 11/23/23 07:42 AST 9 U/L (0-32) 11/23/23 07:42 ALT < 5 U/L (0-33) 11/23/23 07:42 Alkaline Phosphatase 100 U/L (35-105) 11/23/23 07:42 Total Protein 7.5 g/dL (6.6-8.7) 11/23/23 07:42 Albumin 3.5 g/dL (3.5-5.2) 11/23/23 07:42 Globulin 4.0 g/dL (1.3-4.6) 11/23/23 07:42 Urine Color Yellow (Yellow) 11/23/23 08:35 Urine Appearance Turbid (CLEAR) A 11/23/23 08:35 Urine pH 8.5 (5-7) A 11/23/23 08:35 Ur Specific [place] 1.013 (1.005-1.030) 11/23/23 08:35 Urine Protein 3+ (Negative) A 11/23/23 08:35 Urine Glucose (UA) Negative (Normal) 11/23/23 08:35 Urine Ketones Negative (Negative) 11/23/23 08:35 Urine Blood 1+ (Negative) A 11/23/23 08:35 Urine Nitrate Negative (Negative) 11/23/23 08:35 Urine Bilirubin Negative (Negative) 11/23/23 08:35 Urine Urobilinogen 1.0 mg/dL (Negative) 11/23/23 08:35 Ur Leukocyte Esterase 3+ (Negative) A 11/23/23 08:35 Urine RBC 3-5 /hpf (0-2) 11/23/23 08:35 Urine WBC >100 /hpf (0-5) H 11/23/23 08:35 Ur Squamous Epith Cells 21-50 /hpf (0-5) 11/23/23 08:35 Amorphous Sediment Not Reportable 11/23/23 08:35 Urine Bacteria 4+ /hpf (NONE) H 11/23/23 08:35 Hyaline Casts 4.11 /lpf 11/23/23 08:35 All radiology interpretation(s) finalized by discharge Discharge Plan Discharge Patient Disposition: Home Clinical Impression: Cystitis, ESRD on dialysis, Fatigue, Sleep apnea Condition: Stable Prescriptions: New cefdinir 300 mg capsule 300 mg PO BID Qty: 14 0RF No Action (DME) Dexcom G6 Security Systems Technician Misc See Rx Instructions .Route Qty: 1 0RF Rx Instructions: Check BS continuously (DME) Dexcom G6 Sensor Device See Rx Instructions .Route Qty: 9 3RF Rx Instructions: Change every 10 days. gabapentin 100 mg capsule 100 mg PO TID Qty: 90 4RF (DME) Dexcom G6 Transmitter Device See Rx Instructions .Route Qty: 3 3RF Rx Instructions: Change every 90 days. Glucagon Emergency Kit (human) 1 mg recon soln 1 mg SUBCUT Q20M PRN (Reason: hypoglycemia) Qty: 1 3RF Rx Instructions: until target blood sugar attained amlodipine [Norvasc] 2.5 mg tablet 2.5 mg PO DAILY carbidopa-levodopa 25-100 mg tablet See Rx Instructions .ROUTE .COMPLEX Rx Instructions: TAKE 0.5 (1/2) TABLET BY MOUTH BEFORE DIALYSIS. Auryxia 210 mg iron tablet 630 mg PO TID@08,12,20 Rx Instructions: TAKE WITH MEALS ropinirole 0.5 mg tablet 0.5 mg PO QPM clopidogrel 75 mg tablet 75 mg PO DAILY Qty: 30 0RF escitalopram oxalate 20 mg tablet 20 mg PO DAILY rosuvastatin 20 mg tablet 20 mg PO BEDTIME RenaPlex-D 800 mcg-12.5 mg -2,000 unit tablet 1 tab PO DAILY metoprolol succinate 50 mg tablet extended release 24 hr 50 mg PO DAILY levothyroxine 50 mcg tablet 50 mcg PO DAILY cyclobenzaprine 10 mg tablet 10 mg PO Q8H PRN (Reason: MUSCLE SPASMS) Qty: 14 0RF cetirizine 10 mg Tablet 10 mg PO DAILY ibuprofen [Advil Liqui-Gel] 200 mg Capsule 200 mg PO .Q4-6H PRN (Reason: Pain) diphenhydramine HCl [Benadryl] 25 mg Capsule 25 mg PO BID PRN (Reason: ALLERGIES) omeprazole 20 mg Capsule,Delayed Release(Dr/Ec) 20 mg PO BEDTIME Santyl 250 unit/gram ointment 1 applic topical BID Discharge Orders: Discharge ED (Routine); Ordered 11/23/23 Ordered By: Jd Mejía Referrals: Vivienne Schulz MD [Primary Care Provider] - Discharge Diet: Usual diet Discharge Activity: Resume usual activity Patient Instructions: Opioid Safety, Pain Management Activity Restrictions/Additional Instructions: Thank you for choosing [facility] for your healthcare needs today. It is very important that you follow up as instructed or that you return to the Emergency Department should you have concerns or if your condition changes or worsens in any way. You were seen today for fatigue. Your laboratory chest show anemia which has been chronic. This should be continued to monitor by your physician. You do not require transfusion today. Your creatinine was elevated however this is consistent with your known end-stage renal disease. Your potassium and glucose were normal. Your white count was also normal. CT of your head and chest x-ray did not show anything acute. We do recommend that you make up for the dialysis you missed today by going to your dialysis treatment center tomorrow we did contact them they have an appointment available for you. You were found to have a mild cystitis. Recommend you start on the oral antibiotic 1 pill twice a day for 7 days. You are given initial dose of IV antibiotic in the emergency room and can start the oral antibiotic tomorrow Coding Level of Care Code ED Oil Tester for Danial Barfield
[2023-11-23 07:52] LABS: Lymphocytes # 0.6 10^3/uL (0.8-4.8); Lymphocytes % 9.3 %; Mean Corpuscular Hemoglobin 31.4 pg (27-33); Mean Corpuscular Volume 104.7 fl (85-98); Mean Platelet Volume 9.3 fL (7.4-10.4); Monocytes # 0.5 10^3/uL (0.2-0.9); Monocytes % 8.2 %; Neutrophils # 5.22 10^3/uL (1.8-7.7); Neutrophils % 82.2 %; Nucleated Red Blood Cells % 0 %; Platelet Count 304 10^3/cmm (157-399); Red Blood Count 2.77 10^6/uL (3.85-5.65); Red Cell Distribution Width 15.8 % (12.1-15.1); White Blood Count 6.35 10^3/uL (3.29-11.43)
[2023-11-23 08:10] LABS: Alanine Aminotransferase < 5 U/L (0-33); Albumin Level 3.5 g/dL (3.5-5.2); Alkaline Phosphatase 100 U/L (35-105); Anion Gap 18.8 (5-19); Aspartate Amino Transferase 9 U/L (0-32); Blood Urea Nitrogen 28 mg/dL (6-20); Calcium 9.1 mg/dL (8.5-10.5); Carbon Dioxide 27 mmol/L (22-29); Chloride 94 mmol/L (98-107); Glomerular Filtration Rate 10.3 mL/min (90-130); Glucose 128 mg/dL (65-115); Osmolality Calculated 289 mOsm/kg (285-295); Potassium 3.8 mmol/L (3.5-5.1); Sodium 136 mmol/L (136-145); Total Bilirubin 0.3 mg/dL (0.15-1.2); Total Protein 7.5 g/dL (6.6-8.7)
[2023-11-23 08:27] VITALS: BP 140/82; O2SAT 96
[2023-11-23 08:42] LABS: Charge for UA Resulting for Rev
[2023-11-23 09:09] LABS: Bilirubin Urine Negative (Negative); Blood Urine 1+ (Negative); Glucose Urine UA Negative (Normal); Ketones Urine Negative (Negative); Leukocyte Esterase Urine 3+ (Negative); Nitrate Urine Negative (Negative); Protein Urine 3+ (Negative); Specific Gravity, Urine 1.013 (1.005-1.030); Urine Appearance Turbid (CLEAR); Urine Color Yellow (Yellow); pH Urine 8.5 (5-7)
[2023-11-23 09:11] LABS: Bacteria Urine 4+ /hpf; Hyaline Casts Urine 4.11 /lpf; Squamous Epithelial Cell Urine 21-50 /hpf (0-5); WBC Urine >100 /hpf (0-5)
[2023-11-23 09:32] LABS: UA Slide Review UA Slide Review Perf
[2023-11-23 10:13] LABS: ABG PCO2 46.4 mmHg (35-45); ABG PH Result 7.42 (7.35-7.45); Base Excess ABG 5.2 mmol/L (-2.0-2.0); Blood Gas Allen Test Pos; Blood Gas Operator Identificat CAK; Blood Gas Sample Site Radial, left; Blood Gas Sample Type Arterial; Carboxyhemoglobin 1.5 %THgb (0.4-20.1); HCO3 ABG 30.2 mmol/L (22-26); HGB O2 Sat 97.1 % (95-100); Ionized Calcium Level - ABG 1.2 mmol/L (1.1-1.4); Methemoglobin < 0.0 % (0.4-1.5); Oxygen Device ROOM AIR; Oxygen Saturation ABG 96.9; PO2 ABG 77.7 mmHg (80.0-100.0); PO2 FiO2 Ratio Arterial Blood 370; Potassium Level - ABG 3.9 mmol/L (3.5-5.0); Total Hemoglobin 8.2 g/dL (12-16)
[2023-11-23] MEDS: cefTRIAXone 1,000 mg SDV 1000 MG IVP (10:30)
[2023-11-23 11:52] VITALS: BP 140/82; PULSE 95; TEMP 36.5; O2SAT 96
== END 2023-11-23 11:53 | disposition home or self-care (01) ==
PROVIDERS: Emergency Provider Family Medicine; PCP Internal Medicine
DX: N30.90 Cystitis, unspecified without hematuria (principal); R53.83 Other fatigue; G47.30 Sleep apnea, unspecified; E11.22 Type 2 diabetes mellitus with diabetic chronic kidney disease; I12.0 Hypertensive chronic kidney disease with stage 5 chronic kidney disease or end stage renal disease; N18.6 End stage renal disease; Z99.2 Dependence on renal dialysis; Z87.440 Personal history of urinary (tract) infections; E78.5 Hyperlipidemia, unspecified; Z79.02 Long term (current) use of antithrombotics/antiplatelets
CPT/HCPCS: 36415; 36600; 71045; 80051; 80053; 81003; 81015; 82330; 82805; 85025; 87040; 93005; 96374; 99285; J0696

== ENCOUNTER 2023-11-25 05:22 | Emergency (ER) | payer MEDICARE, MEDICAID, SELFPAY ==
[2023-11-25 05:25] VITALS: BP 116/84; PULSE 85; RESP 16; TEMP 36.7; O2SAT 100; BMI 38.3
--- NOTE | 2023-11-25 05:28 | CTR_ITS ---
PROCEDURE INFORMATION: Exam: CT Head Without Contrast Exam date and time: 11/25/2023 6:01 AM Age: 58 years old Clinical indication: Injury or trauma; Blunt trauma (contusions or hematomas); Without loss of consciousness; Patient HX: HX of stroke in 2021, . fall days ago and also 2 weeks ago; Additional info: Fall, head injury TECHNIQUE: Imaging protocol: Computed tomography of the head without contrast. Radiation optimization: All CT scans at this facility use at least one of these dose optimization techniques: automated exposure control; mA and/or kV adjustment per patient size (includes targeted exams where dose is matched to clinical indication); or iterative reconstruction. COMPARISON: CT head wo con* [id number] 11/23/2023 1:34 AM RADIATION DOSE METRICS: Total DLP (mGy-cm): 986.78 FINDINGS: Brain: Again is noted the old right temporoparietal infarction with encephalomalacia change and calcification as before. There is mild ex vacuo dilatation of the posterior horn of the right lateral ventricle as before. There is also an old right thalamic infarction. There is other white matter low-density consistent with small-vessel disease No acute infarction or hemorrhage is detected. Cerebral ventricles: See Brain finding. Paranasal sinuses: Visualized sinuses are unremarkable. No fluid levels. Mastoid air cells: Visualized mastoid air cells are well aerated. Bones: No skull fracture is detected. Soft tissues: There is a scalp hematoma in the left frontal region. CT/CT head wo con* [id number] IMPRESSION: 1. Old right-sided infarction with encephalomalacia change and calcification. 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 Small-vessel disease 2. Negative for acute intracranial findings 3. Scalp hematoma as before
[2023-11-25 05:30] VITALS: BP 116/84; PULSE 83; O2SAT 96
--- NOTE | 2023-11-25 05:31 | ED_ITS ---
Documented by User: Tiera Richardson MD 11/25/23 05:33 HPI - Fall General: Chief Complaint: Fall Stated Complaint: Fall Time Seen by Provider: 11/25/23 05:27 History of Present Illness: 58-year-old female who presents the [facility] room by ambulance after she had a fall and hit her head. Apparently she had a similar episode a few days back and was flown to [place]. She was not found to have any intracranial hemorrhage at the time. Today she has some old bruising from that fall. She has a new abrasion on the left side of her head. No neck pain. No loss of consciousness. No altered mental status. No focal motor deficits. No nausea or vomiting. No chest pain. No abdominal pain. Related Data Home Medications Medication Instructions Recorded Confirmed carbidopa 25 mg-levodopa 100 mg See Rx Instructions .Route .COMPLEX 05/20/20 11/23/23 tablet ferric citrate 210 mg iron tablet 630 mg PO TID@08,12,20 05/20/20 11/23/23 (Auryxia) ropinirole 0.5 mg tablet 0.5 mg PO QPM 06/21/20 11/23/23 amlodipine 2.5 mg tablet (Norvasc) 2.5 mg PO DAILY 09/28/22 11/23/23 levothyroxine 50 mcg tablet 50 mcg PO DAILY 08/24/23 11/23/23 metoprolol succinate 50 mg 50 mg PO DAILY 08/24/23 11/23/23 tablet,extended release 24 hr cetirizine 10 mg tablet 10 mg PO DAILY 09/16/23 11/23/23 collagenase clostridium histo. 250 1 applic topical BID 09/16/23 11/23/23 unit/gram topical ointment (Santyl) diphenhydramine HCl 25 mg capsule 25 mg PO BID PRN ALLERGIES 09/16/23 11/23/23 (Benadryl) ibuprofen 200 mg capsule (Advil 200 mg PO .Q4-6H PRN Pain 09/16/23 11/23/23 Liqui-Gel) omeprazole 20 mg capsule,delayed 20 mg PO BEDTIME 09/16/23 11/23/23 release escitalopram oxalate 20 mg tablet 20 mg PO DAILY 11/02/23 11/23/23 rosuvastatin 20 mg tablet 20 mg PO BEDTIME 11/02/23 11/23/23 vit B,C-folic ac 800 mcg-zinc 12.5 1 tab PO DAILY 11/02/23 11/23/23 mg-selen-D3 2,000 unit-vit E tablet (RenaPlex-D) Previous Rx's Medication Instructions Recorded blood-glucose meter,continuous #1 ea 09/24/21 (Dexcom G6 [employer]or [employer]) blood-glucose sensor (Dexcom G6 #9 ea 09/24/21 Sensor device) clopidogrel 75 mg tablet 75 mg PO DAILY #30 tabs 11/27/21 blood-glucose transmitter (Dexcom #3 ea 12/24/21 G6 Transmitter device) glucagon 1 mg solution for 1 mg SUBCUT Q20M PRN hypoglycemia 12/24/21 injection (Glucagon Emergency Kit) #1 ea gabapentin 100 mg capsule 100 mg PO TID #90 caps 04/21/23 cyclobenzaprine 10 mg tablet 10 mg PO Q8H PRN MUSCLE SPASMS #14 09/04/23 tabs cefdinir 300 mg capsule 300 mg PO BID #14 caps 11/23/23 Allergies Allergy/AdvReac Type Severity Reaction Status Date / Time acetaminophen Allergy Unknown ALGY-Hives Verified 11/23/23 07:01 gabapentin Allergy Unknown ALGY-Hives Verified 11/23/23 07:01 codeine Allergy ALGY-Hives Verified 11/23/23 07:01 fentanyl Allergy ALGY-Hives Verified 11/23/23 07:01 hydrocodone Allergy ALGY-Hives Verified 11/23/23 07:01 influenza virus vaccine qs Allergy ALGY-Hives Verified 11/23/23 07:01 [id number](65 years up) [From Fluad Quad 2019-(65y up)(PF)] Iodinated Contrast Media Allergy ALGY-Anaphy Verified 11/23/23 07:01 laxis kiwi Allergy ALGY-Anaphy Verified 11/23/23 07:01 laxis lisinopril Allergy ADR-Cough Verified 11/23/23 07:01 NSAIDS (Non-Steroidal Allergy ALGY-Hives Verified 11/23/23 07:01 Anti-Inflamma oxycodone Allergy ALGY-Hives Verified 11/23/23 07:01 pineapple Allergy ALGY-Anaphy Verified 11/23/23 07:01 laxis promethazine Allergy Unknown Verified 11/23/23 07:01 strawberry Allergy ALGY-Anaphy Verified 11/23/23 07:01 laxis tramadol Allergy ALGY-Hives Verified 11/23/23 07:01 vaccine adjuvant emulsion Allergy ALGY-Hives Verified 11/23/23 07:01 MF59C.1 [From [employer] (65y up)(PF)] Review of Systems Narrative: Constitutional symptoms: Negative except as documented in HPI. Skin symptoms: Negative except as documented in HPI. Eye symptoms: Negative except as documented in HPI. ENMT symptoms: Negative except as documented in HPI. Respiratory symptoms: Negative except as documented in HPI. Cardiovascular symptoms: Negative except as documented in HPI. Gastrointestinal symptoms: Negative except as documented in HPI. Genitourinary symptoms: Negative except as documented in HPI. Musculoskeletal symptoms: Negative except as documented in HPI. Neurologic symptoms: Negative except as documented in HPI. Psychiatric symptoms: Negative except as documented in HPI. Endocrine symptoms: Negative except as documented in HPI. PFSH ED PFSH: Medical History Sacral decubitus ulcer, stage III Cellulitis Cystitis Elevated troponin Hyperkalemia Hyponatremia Sacral decubitus ulcer UTI (urinary tract infection) Acute encephalopathy ESRD (end stage renal disease) Fracture of greater tuberosity of left humerus Fracture of humeral head, left, closed Stage III pressure ulcer of sacral region Decubitus ulcer of sacral region, unstageable Abdominal wall cellulitis Failure to thrive Weakness Toe fracture Contusion of right foot ESRD (end stage renal disease) Rash Seropositive rheumatoid arthritis Left foot pain Long-term insulin use Diabetes type 2, uncontrolled Appetite loss MCI (mild cognitive impairment) Hypothyroidism Insulin dependent type 2 diabetes mellitus COVID-19 Hypertension Anxiety ESRD (end stage renal disease) Diabetes Hyperlipidemia Chronic back pain De Quervain's tenosynovitis Surgical History Status post colonoscopy S/P dialysis catheter insertion Removed 07/14/20 S/P arteriovenous (AV) fistula creation History of temporal artery biopsy H/O dilation and curettage H/O section Hx of cholecystectomy History of appendectomy History of carpal tunnel repair H/O neck surgery fusion Family History Father Bleeding disorder Other Diabetes Heart disease Hyperlipidemia Hypertension Kidney problem Migraines Stroke Denies family history of Anesthesia complication Social History Smoking and tobacco/nicotine status: never used tobacco/nicotine Second hand smoke exposure: No Alcohol intake: never Substance/Drug Use: never Adopted: No Caregiver/support person: Yes Lives independently: Yes Household members: family Housing: House Marital status: Single Highest education level completed: High School Graduate service: No Current occupational status: disabled Current occupational exposures/hazards: No Pets and animals: Yes Pets & animals: dog(s) Sexually active: No Do you think of yourself as: Straight/Heterosexual Current gender identity: Female Sabina/Restoration: Jain Special sabina needs: No Agree to transfusion: No Physical Exam Narrative: EXAM NARRATIVE: General: Alert, no acute distress. Skin: Warm, dry. Head: Normocephalic, bruising that is old on her forehead around her eye. New abrasion on the left forehead.. Neck: Supple, trachea midline. Eye: Extraocular movements are intact. Ears, nose, mouth and throat: mucosa moist. Cardiovascular: Regular, Normal peripheral perfusion. Respiratory: Lungs are clear to auscultation, respirations are non-labored, breath sounds are equal, Symmetrical chest wall expansion. Gastrointestinal: Soft, Nontender, Non distended Musculoskeletal: Normal ROM, no deformity. Neurological: Alert and oriented, No focal neurological deficit observed. Psychiatric: Cooperative, appropriate mood & affect. Course Vital Signs: Vital signs: Vital Signs Temperature 98.1 F 11/25/23 05:25 Pulse Rate 82 11/25/23 06:41 Respiratory Rate 16 11/25/23 05:25 Blood Pressure 129/76 11/25/23 06:41 Pulse Oximetry 91 11/25/23 06:41 Oxygen Delivery Me thod Room Air 11/25/23 06:19 MDM - Fall Medical Decision Making Patient care transitioned to Dr. Wakefield at shift change awaiting results of the CT of the head. Lab Data Radiology Impressions Head CT 11/25/23 05:28 IMPRESSION: 1. Old right-sided infarction with encephalomalacia change and calcification. 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 Small-vessel disease 2. Negative for acute intracranial findings 3. 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 gabapentin 100 mg capsule 100 mg PO TID Qty: 90 4RF (DME) Dexcom G6 Transmitter Device See Rx Instructions .Route Qty: 3 3RF Rx Instructions: Change every 90 days. Glucagon Emergency Kit (human) 1 mg recon soln 1 mg SUBCUT Q20M PRN (Reason: hypoglycemia) Qty: 1 3RF Rx Instructions: until target blood sugar attained amlodipine [Norvasc] 2.5 mg tablet 2.5 mg PO DAILY carbidopa-levodopa 25-100 mg tablet See Rx Instructions .ROUTE .COMPLEX Rx Instructions: TAKE 0.5 (1/2) TABLET BY MOUTH BEFORE DIALYSIS. Auryxia 210 mg iron tablet 630 mg PO TID@08,12,20 Rx Instructions: TAKE WITH MEALS ropinirole 0.5 mg tablet 0.5 mg PO QPM clopidogrel 75 mg tablet 75 mg PO DAILY Qty: 30 0RF escitalopram oxalate 20 mg tablet 20 mg PO DAILY rosuvastatin 20 mg tablet 20 mg PO BEDTIME RenaPlex-D 800 mcg-12.5 mg -2,000 unit tablet 1 tab PO DAILY cefdinir 300 mg capsule 300 mg PO BID Qty: 14 0RF metoprolol succinate 50 mg tablet extended release 24 hr 50 mg PO DAILY levothyroxine 50 mcg tablet 50 mcg PO DAILY cyclobenzaprine 10 mg tablet 10 mg PO Q8H PRN (Reason: MUSCLE SPASMS) Qty: 14 0RF cetirizine 10 mg Tablet 10 mg PO DAILY ibuprofen [Advil Liqui-Gel] 200 mg Capsule 200 mg PO .Q4-6H PRN (Reason: Pain) diphenhydramine HCl [Benadryl] 25 mg Capsule 25 mg PO BID PRN (Reason: ALLERGIES) omeprazole 20 mg Capsule,Delayed Release(Dr/Ec) 20 mg PO BEDTIME Santyl 250 unit/gram ointment 1 applic topical BID Discharge Orders: Discharge ED (Routine); Ordered 11/25/23 Ordered By: Rebecca Wakefield Referrals: Vivienne Schulz MD [Primary Care Provider] - Discharge Diet: Advance as tolerated Discharge Activity: Resume usual activity Patient Instructions: Head Injury (ED) Coding Level of Care Code ED 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 Fwd Documented by User: Rebecca Wakefield MD 11/25/23 06:48 HPI - Fall General: Chief Complaint: Fall Stated Complaint: Fall Time Seen by Provider: 11/25/23 05:27 Related Data Home Medications Medication Instructions Recorded Confirmed carbidopa 25 mg-levodopa 100 mg See Rx Instructions .Route .COMPLEX 05/20/20 11/23/23 tablet ferric citrate 210 mg iron tablet 630 mg PO TID@08,12,20 05/20/20 11/23/23 (Auryxia) ropinirole 0.5 mg tablet 0.5 mg PO QPM 06/21/20 11/23/23 amlodipine 2.5 mg tablet (Norvasc) 2.5 mg PO DAILY 09/28/22 11/23/23 levothyroxine 50 mcg tablet 50 mcg PO DAILY 08/24/23 11/23/23 metoprolol succinate 50 mg 50 mg PO DAILY 08/24/23 11/23/23 tablet,extended release 24 hr cetirizine 10 mg tablet 10 mg PO DAILY 09/16/23 11/23/23 collagenase clostridium histo. 250 1 applic topical BID 09/16/23 11/23/23 unit/gram topical ointment (Santyl) diphenhydramine HCl 25 mg capsule 25 mg PO BID PRN ALLERGIES 09/16/23 11/23/23 (Benadryl) ibuprofen 200 mg capsule (Advil 200 mg PO .Q4-6H PRN Pain 09/16/23 11/23/23 Liqui-Gel) omeprazole 20 mg capsule,delayed 20 mg PO BEDTIME 09/16/23 11/23/23 release escitalopram oxalate 20 mg tablet 20 mg PO DAILY 11/02/23 11/23/23 rosuvastatin 20 mg tablet 20 mg PO BEDTIME 11/02/23 11/23/23 vit B,C-folic ac 800 mcg-zinc 12.5 1 tab PO DAILY 11/02/23 11/23/23 mg-selen-D3 2,000 unit-vit E tablet (RenaPlex-D) Previous Rx's Medication Instructions Recorded blood-glucose meter,continuous #1 ea 09/24/21 (Dexcom G6 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 [employer]) blood-glucose sensor (Dexcom G6 #9 ea 09/24/21 Sensor device) clopidogrel 75 mg tablet 75 mg PO DAILY #30 tabs 11/27/21 blood-glucose transmitter (Dexcom #3 ea 12/24/21 G6 Transmitter device) glucagon 1 mg solution for 1 mg SUBCUT Q20M PRN hypoglycemia 12/24/21 injection (Glucagon Emergency Kit) #1 ea gabapentin 100 mg capsule 100 mg PO TID #90 caps 04/21/23 cyclobenzaprine 10 mg tablet 10 mg PO Q8H PRN MUSCLE SPASMS #14 09/04/23 tabs cefdinir 300 mg capsule 300 mg PO BID #14 caps 11/23/23 Allergies Allergy/AdvReac Type Severity Reaction Status Date / Time acetaminophen Allergy Unknown ALGY-Hives Verified 11/23/23 07:01 gabapentin Allergy Unknown ALGY-Hives Verified 11/23/23 07:01 codeine Allergy ALGY-Hives Verified 11/23/23 07:01 fentanyl Allergy ALGY-Hives Verified 11/23/23 07:01 hydrocodone Allergy ALGY-Hives Verified 11/23/23 07:01 influenza virus vaccine qs Allergy ALGY-Hives Verified 11/23/23 07:01 [id number](65 years up) [From Fluad Quad 2019-(65y up)(PF)] Iodinated Contrast Media Allergy ALGY-Anaphy Verified 11/23/23 07:01 laxis kiwi Allergy ALGY-Anaphy Verified 11/23/23 07:01 laxis lisinopril Allergy ADR-Cough Verified 11/23/23 07:01 NSAIDS (Non-Steroidal Allergy ALGY-Hives Verified 11/23/23 07:01 Anti-Inflamma oxycodone Allergy ALGY-Hives Verified 11/23/23 07:01 pineapple Allergy ALGY-Anaphy Verified 11/23/23 07:01 laxis promethazine Allergy Unknown Verified 11/23/23 07:01 strawberry Allergy ALGY-Anaphy Verified 11/23/23 07:01 laxis tramadol Allergy ALGY-Hives Verified 11/23/23 07:01 vaccine adjuvant emulsion Allergy ALGY-Hives Verified 11/23/23 07:01 MF59C.1 [From [facility] (65y up)(PF)] PFSH ED PFSH: Medical History Sacral decubitus ulcer, stage III Cellulitis Cystitis Elevated troponin Hyperkalemia Hyponatremia Sacral decubitus ulcer UTI (urinary tract infection) Acute encephalopathy ESRD (end stage renal disease) Fracture of greater tuberosity of left humerus Fracture of humeral head, left, closed Stage III pressure ulcer of sacral region Decubitus ulcer of sacral region, unstageable Abdominal wall cellulitis Failure to thrive Weakness Toe fracture Contusion of right foot ESRD (end stage renal disease) Rash Seropositive rheumatoid arthritis Left foot pain Long-term insulin use Diabetes type 2, uncontrolled Appetite loss MCI (mild cognitive impairment) Hypothyroidism Insulin dependent type 2 diabetes mellitus COVID-19 Hypertension Anxiety ESRD (end stage renal disease) Diabetes Hyperlipidemia Chronic back pain De Quervain's tenosynovitis Surgical History Status post colonoscopy S/P dialysis catheter insertion Removed 07/14/20 S/P arteriovenous (AV) fistula creation History of temporal artery biopsy H/O dilation and curettage H/O section Hx of cholecystectomy History of appendectomy History of carpal tunnel repair H/O neck surgery fusion Family History Father Bleeding disorder Other Diabetes Heart disease Hyperlipidemia Hypertension Kidney problem Migraines Stroke Denies family history of Anesthesia complication Social History Smoking and tobacco/nicotine status: never used tobacco/nicotine Second hand smoke exposure: No Alcohol intake: never Substance/Drug Use: never Adopted: No Caregiver/support person: Yes Lives independently: Yes Household members: family Housing: House Marital status: Single Highest education level completed: High School Graduate service: No Current occupational status: disabled Current occupational exposures/hazards: No Pets and animals: Yes Pets & animals: dog(s) Sexually active: No Do you think of yourself as: Straight/Heterosexual Current gender identity: Female Sabina/Restoration: Jain Special sabina needs: No Agree to transfusion: No Course Vital Signs: Vital signs: Vital Signs Temperature 98.1 F 11/25/23 05:25 Pulse Rate 82 11/25/23 06:41 Respiratory Rate 16 11/25/23 05:25 Blood Pressure 129/76 11/25/23 06:41 Pulse Oximetry 91 11/25/23 06:41 Oxygen Delivery Me thod Room Air 11/25/23 06:19 MDM - Fall Medical Decision Making Patient care transitioned to Dr. Wakefield at shift change awaiting results of the CT of the head. Patient presented here with a fall close head injury head CT here is normal she is well-appearing she is ambulatory will discharge with her family. Lab Data Radiology Impressions Head CT 11/25/23 05:28 IMPRESSION: 1. Old right-sided infarction with encephalomalacia change and calcification. 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 Small-vessel disease 2. Negative for acute intracranial findings 3. 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 gabapentin 100 mg capsule 100 mg PO TID Qty: 90 4RF (DME) Dexcom G6 Transmitter Device See Rx Instructions .Route Qty: 3 3RF Rx Instructions: Change every 90 days. Glucagon Emergency Kit (human) 1 mg recon soln 1 mg SUBCUT Q20M PRN (Reason: hypoglycemia) Qty: 1 3RF Rx Instructions: until target blood sugar attained amlodipine [Norvasc] 2.5 mg tablet 2.5 mg PO DAILY carbidopa-levodopa 25-100 mg tablet See Rx Instructions .ROUTE .COMPLEX Rx Instructions: TAKE 0.5 (1/2) TABLET BY MOUTH BEFORE DIALYSIS. Auryxia 210 mg iron tablet 630 mg PO TID@08,12,20 Rx Instructions: TAKE WITH MEALS ropinirole 0.5 mg tablet 0.5 mg PO QPM clopidogrel 75 mg tablet 75 mg PO DAILY Qty: 30 0RF escitalopram oxalate 20 mg tablet 20 mg PO DAILY rosuvastatin 20 mg tablet 20 mg PO BEDTIME RenaPlex-D 800 mcg-12.5 mg -2,000 unit tablet 1 tab PO DAILY cefdinir 300 mg capsule 300 mg PO BID Qty: 14 0RF metoprolol succinate 50 mg tablet extended release 24 hr 50 mg PO DAILY levothyroxine 50 mcg tablet 50 mcg PO DAILY cyclobenzaprine 10 mg tablet 10 mg PO Q8H PRN (Reason: MUSCLE SPASMS) Qty: 14 0RF cetirizine 10 mg Tablet 10 mg PO DAILY ibuprofen [Advil Liqui-Gel] 200 mg Capsule 200 mg PO .Q4-6H PRN (Reason: Pain) diphenhydramine HCl [Benadryl] 25 mg Capsule 25 mg PO BID PRN (Reason: ALLERGIES) omeprazole 20 mg Capsule,Delayed Release(Dr/Ec) 20 mg PO BEDTIME Santyl 250 unit/gram ointment 1 applic topical BID Discharge Orders: Discharge ED (Routine); Ordered 11/25/23 Ordered By: Rebecca Wakefield Referrals: Vivienne Schulz MD [Primary Care Provider] - Discharge Diet: Advance as tolerated Discharge Activity: Resume usual activity Patient Instructions: Head Injury (ED) Coding Level of Care Code ED 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
[2023-11-25 06:19] VITALS: BP 132/86; PULSE 83; O2SAT 93
[2023-11-25 06:41] VITALS: BP 129/76; PULSE 82; O2SAT 91
== END 2023-11-25 06:44 | disposition home or self-care (01) ==
PROVIDERS: Emergency Provider Emergency Medicine; PCP Internal Medicine
DX: S09.8XXA Other specified injuries of head, initial encounter (principal); Z79.02 Long term (current) use of antithrombotics/antiplatelets; E11.22 Type 2 diabetes mellitus with diabetic chronic kidney disease; I12.0 Hypertensive chronic kidney disease with stage 5 chronic kidney disease or end stage renal disease; N18.6 End stage renal disease; E78.5 Hyperlipidemia, unspecified; W19.XXXA Unspecified fall, initial encounter
CPT/HCPCS: 70450; 99284

== ENCOUNTER 2023-11-29 08:50 | Outpatient (CLI) | payer MEDICARE, MEDICAID, SELFPAY ==
--- NOTE | 2023-11-29 | ECG_ITS ---
Test Date: 2023-11-29 Pat Name: Elvi Kaiser Department: Room: Gender: Female Director Of Clinical Trials: : 1965 Requested By: Vivienne Mccrary Order Number: [id number] Doug MD: Merced Woods M.D. Interpretive Statements NAME OF STUDY: LEXISCAN SESTAMIBI STRESS TEST INDICATION: Chest Pain, PROCEDURE: At the baseline, the EKG revealed normal sinus rhythm with a nonspecific IVCD. Left axis deviation. Voltage criteria for LVH. Some nonspecific ST-T changes in the high lateral leads. Poor R wave progression also was noted.. The baseline heart was 93 bpm with a blood pressue of 147/72 mm of Hg Lexiscan was infused over a period of 20 seconds. A total of 0.4 milligrams of Lexiscan was infused. The stress phase was continued for a total of 5 minutes. Heart rate at the end of the stress phase was 102 bpm with a blood pressure 141/69 mm of Hg. The EKG at the peak infusion revealed no significant changes. Sestamibi was injected 20 seconds after the Lexiscan infusion. Heart rate at the end of the recovery phase was 102 bpm with a blood pressure of 141/66 mm of Hg. CONCLUSION: 1. No significant EKG changes with the LexiScan infusion 2. No LexiScan induced chest pain or cardiac arrhythmia 3. Normal blood pressure and heart rate response 4. Sestamibi/sestamibi perfusion scan pending; see separate report. Electronically Signed On 12-02-2023 8:51:07 CDT by Merced Woods M.D. [email or web address]
[2023-11-29 09:19] VITALS: BMI 39.6
--- NOTE | 2023-11-29 09:19 | NMCV_ITS ---
NM darryl perf SPECT r/s* [id number] Elvi Kaiser Age: 58 Gender: F : 1965 Exam Date: 11/29/2023 09:37 Ordering Phys: Vivienne Schulz MD Technologist: CHA Blanco Exam Location: [facility] Indications: CP STRESS TEST [facility] IMAGE PROTOCOL Rest/Stress 1 Lexiscan Day Radiopharmaceutical Dose (mCi) Administration Site Administered by Rest: Tc-99m 10.4 IV CHA Blanco Sestamibi Stress:Tc-99m 33.0 IV CHA Blanco Sestamibi Rest: 29-Nov-2023 60 Discovery 630 Stress: 29-Nov-2023 30 Discovery 630 0.4mg Lexiscan. Supine position only as patient was unable to lay prone. SPECT RESULTS Technical Quality: Good Raw Data Analysis: Breast attenuation Image Corrections: No attenuation or motion correction applied Summed Stress Score: 29 Summed Rest Score: 28 Summed Difference Score: 2 PERFUSION FINDINGS Large area of moderate to severely decreased tracer uptake involving the inferior, inferolateral, anterolateral and apical regions with no centimeter reversibility. A small area of reversible defect in the apical septal region. FUNCTIONAL RESULTS (calculated via Gated SPECT) Stress Image LV EF (%): 38 Stress EDV (mL):128 TID: 1.21 Stress ESV (mL):79 FUNCTIONAL FINDINGS: Segmental wall motion analysis revealing severe diffuse hypokinesis of the inferior wall and the apex IMPRESSIONS 1. Myocardial perfusion imaging revealing a large area of persistent decreased tracer uptake involving the inferior, inferolateral, anterolateral and apical regions suggestive of extensive myocardial scarring involving predominantly the distribution of the left circumflex and the right coronary artery with some involvement of the left anterior descending artery. Small area of allyson- infarction ischemia in the distribution of the left anterior descending artery 3. LV wall motion analysis revealing severe diffuse hypokinesia of the inferior wall and LV apex 4. Mildly dilated LV cavity with an end-systolic volume of 79 mL 5. Elevated transient ischemic dilatation ratio 1.21 also may suggest endocardial ischemia No similar previous studies are available for comparison Revised copy of the study on 11/29/2023 Dr Merced Woods MD [facility] (Electronically Signed) Final Date: 29 November 2023 21:00 Amended: 29 November 2023 21:03 C
[2023-11-29] MEDS: regadenoson 0.4 Mg/5 ml Syringe IVP (10:46)
[2023-11-29 11:03] VITALS: BP 140/68; PULSE 98
== END 2023-11-29 08:51 | disposition home or self-care (01) ==
LOC: CDL 08:51
PROVIDERS: PCP Internal Medicine; Visit Provider Internal Medicine
DX: R07.9 Chest pain, unspecified (principal); R94.39 Abnormal result of other cardiovascular function study
CPT/HCPCS: 36415; 78452; 93017; 96375; A9500; J2785

== ENCOUNTER 2023-12-16 13:48 | Emergency (ER) | payer MEDICARE, MEDICAID, SELFPAY ==
[2023-12-16 13:57] VITALS: BP 107/66; PULSE 61; RESP 14; O2SAT 94; BMI 36.2
--- NOTE | 2023-12-16 14:45 | XRR_ITS ---
PROCEDURE INFORMATION: Exam: XR Right Foot Exam date and time: 12/16/2023 2:57 PM Age: 58 years old Clinical indication: Pain; Right; Patient HX: No known injury or trauma. She states she has broken the foot previously. TECHNIQUE: Imaging protocol: Radiologic exam of the right foot. Views: 3 or more views. COMPARISON: CR XR foot RT min 3V* [id number] 07/20/2022 1:22 PM FINDINGS: Bones/joints: Osteopenia. Plantar and Achilles spurs. No acute fracture. Healed fracture at the base of the proximal phalanx of the right 5th toe. Soft tissues: Normal. Vasculature: Vascular calcifications. XR/XR foot RT min 3V* [id number] IMPRESSION: No acute findings.
--- NOTE | 2023-12-16 14:45 | ED_ITS ---
HPI - Extremity Problem General: Chief complaint: Extremity Problem,Nontraumatic Stated complaint: rt foot inj Time Seen by Provider: 12/16/23 14:07 Source: patient Mode of arrival: ambulatory Limitations: no limitations History of Present Illness: Patient is a 58-year-old female presents to ED today with a complaint of pain to her right foot. No known injury or trauma. She states she has broken the foot previously. She has not noticed any redness or swelling to the foot. She continues to be ambulatory here. MD Complaint: extremity pain Onset (ago): day(s) (3 days) Pain Consistency: constant Location: right and lower extremity (foot) Radiation: none Relieving factors: immobilization Exacerbating factors: weight bearing and walking Associated symptoms: Deny chest pain or fever(s) Related Data Home Medications Medication Instructions Recorded Confirmed carbidopa 25 mg-levodopa 100 mg See Rx Instructions .Route .COMPLEX 05/20/20 11/23/23 tablet ferric citrate 210 mg iron tablet 630 mg PO TID@08,12,20 05/20/20 11/23/23 (Auryxia) ropinirole 0.5 mg tablet 0.5 mg PO QPM 06/21/20 11/23/23 amlodipine 2.5 mg tablet (Norvasc) 2.5 mg PO DAILY 09/28/22 11/23/23 levothyroxine 50 mcg tablet 50 mcg PO DAILY 08/24/23 11/23/23 metoprolol succinate 50 mg 50 mg PO DAILY 08/24/23 11/23/23 tablet,extended release 24 hr cetirizine 10 mg tablet 10 mg PO DAILY 09/16/23 11/23/23 collagenase clostridium histo. 250 1 applic topical BID 09/16/23 11/23/23 unit/gram topical ointment (Santyl) diphenhydramine HCl 25 mg capsule 25 mg PO BID PRN ALLERGIES 09/16/23 11/23/23 (Benadryl) ibuprofen 200 mg capsule (Advil 200 mg PO .Q4-6H PRN Pain 09/16/23 11/23/23 Liqui-Gel) omeprazole 20 mg capsule,delayed 20 mg PO BEDTIME 09/16/23 11/23/23 release escitalopram oxalate 20 mg tablet 20 mg PO DAILY 11/02/23 11/23/23 rosuvastatin 20 mg tablet 20 mg PO BEDTIME 11/02/23 11/23/23 vit B,C-folic ac 800 mcg-zinc 12.5 1 tab PO DAILY 11/02/23 11/23/23 mg-selen-D3 2,000 unit-vit E tablet (RenaPlex-D) Previous Rx's Medication Instructions Recorded blood-glucose meter,continuous #1 ea 09/24/21 (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) blood-glucose sensor (Dexcom G6 #9 ea 09/24/21 Sensor device) clopidogrel 75 mg tablet 75 mg PO DAILY #30 tabs 11/27/21 blood-glucose transmitter (Dexcom #3 ea 12/24/21 G6 Transmitter device) glucagon 1 mg solution for 1 mg SUBCUT Q20M PRN hypoglycemia 12/24/21 injection (Glucagon Emergency Kit) #1 ea gabapentin 100 mg capsule 100 mg PO TID #90 caps 04/21/23 cyclobenzaprine 10 mg tablet 10 mg PO Q8H PRN MUSCLE SPASMS #14 09/04/23 tabs cefdinir 300 mg capsule 300 mg PO BID #14 caps 11/23/23 Allergies Allergy/AdvReac Type Severity Reaction Status Date / Time acetaminophen Allergy Unknown ALGY-Hives Verified 11/23/23 07:01 gabapentin Allergy Unknown ALGY-Hives Verified 11/23/23 07:01 codeine Allergy ALGY-Hives Verified 11/23/23 07:01 fentanyl Allergy ALGY-Hives Verified 11/23/23 07:01 hydrocodone Allergy ALGY-Hives Verified 11/23/23 07:01 influenza virus vaccine qs Allergy ALGY-Hives Verified 11/23/23 07:01 (65 years up) [From Fluad Quad 2019-(65y up)(PF)] Iodinated Contrast Media Allergy ALGY-Anaphy Verified 11/23/23 07:01 laxis kiwi Allergy ALGY-Anaphy Verified 11/23/23 07:01 laxis lisinopril Allergy ADR-Cough Verified 11/23/23 07:01 NSAIDS (Non-Steroidal Allergy ALGY-Hives Verified 11/23/23 07:01 Anti-Inflamma oxycodone Allergy ALGY-Hives Verified 11/23/23 07:01 pineapple Allergy ALGY-Anaphy Verified 11/23/23 07:01 laxis promethazine Allergy Unknown Verified 11/23/23 07:01 strawberry Allergy ALGY-Anaphy Verified 11/23/23 07:01 laxis tramadol Allergy ALGY-Hives Verified 11/23/23 07:01 vaccine adjuvant emulsion Allergy ALGY-Hives Verified 11/23/23 07:01 MF59C.1 [From Perv[employer]ip (65y up)(PF)] Review of Systems Const: Denies: fever(s) Card: Denies: chest pain Resp: Denies: dyspnea Musc: Reports: extremity pain (R foot); Denies: extremity swelling, joint pain or joint swelling Neuro: Denies: numbness in extremities, sensory changes or difficulty walking PFSH ED PFSH: Medical History Sacral decubitus ulcer, stage III Cellulitis Cystitis Elevated troponin Hyperkalemia Hyponatremia Sacral decubitus ulcer UTI (urinary tract infection) Acute encephalopathy ESRD (end stage renal disease) Fracture of greater tuberosity of left humerus Fracture of humeral head, left, closed Stage III pressure ulcer of sacral region Decubitus ulcer of sacral region, unstageable Abdominal wall cellulitis Failure to thrive Weakness Toe fracture Contusion of right foot ESRD (end stage renal disease) Rash Seropositive rheumatoid arthritis Left foot pain Long-term insulin use Diabetes type 2, uncontrolled Appetite loss MCI (mild cognitive impairment) Hypothyroidism Insulin dependent type 2 diabetes mellitus COVID-19 Hypertension Anxiety ESRD (end stage renal disease) Diabetes Hyperlipidemia Chronic back pain De Quervain's tenosynovitis Surgical History Status post colonoscopy S/P dialysis catheter insertion Removed 07/14/20 S/P arteriovenous (AV) fistula creation History of temporal artery biopsy H/O dilation and curettage H/O section Hx of cholecystectomy History of appendectomy History of carpal tunnel repair H/O neck surgery fusion Family History Father Bleeding disorder Other Diabetes Heart disease Hyperlipidemia Hypertension Kidney problem Migraines Stroke Denies family history of Anesthesia complication Social History Smoking and tobacco/nicotine status: never used tobacco/nicotine Second hand smoke exposure: No Alcohol intake: never Substance/Drug Use: never Adopted: No Caregiver/support person: Yes Lives independently: Yes Household members: family Housing: House Marital status: Single Highest education level completed: High School Graduate service: No Current occupational status: disabled Current occupational exposures/hazards: No Pets and animals: Yes Pets & animals: dog(s) Sexually active: No Do you think of yourself as: Straight/Heterosexual Current gender identity: Female Sabina/Church: [employer] Special sabina needs: No Agree to transfusion: No Physical Exam Const: COMMON NORMALS: no acute distress, patient oriented x3, no limitations, alert and well nourished GENERAL APPEARANCE: cooperative Extremity: COMMON NORMALS: full ROM, capillary refill normal, no joint enlargement, no clubbing, cyanosis or edema, no calf tenderness and no pedal edema GENERAL: Yes normal exam except as noted RIGHT LOWER EXTREMITY: Yes foot & digits (TTP dorsal lateral R foot; no edema/erythema) Right foot and digits: Yes inspection (normal gross inspection), Yes ROM (normal) and Yes neurovascular exam (normal) Neuro: COMMON NORMALS: patient oriented x3, moves all extremities, no focal motor deficits, no sensory deficits noted and gait normal SENSORIUM/ORIENTATION: Yes alert Skin: NARRATIVE SKIN EXAM: normal skin findings to lower extremities/foot Course Vital Signs: Vital signs: Vital Signs Pulse Rate 61 12/16/23 13:57 Respiratory Rate 14 12/16/23 13:57 Blood Pressure 107/66 12/16/23 13:57 Pulse Oximetry 94 12/16/23 13:57 Oxygen Delivery Me thod Room Air 12/16/23 13:57 MDM - Extremity (Nontraumatic) Medical Decision Making XR personal interpretation is unremarkable. Will have her ice, elevate, offload and she can follow-up with her stripe marker/PCP if pain persists. Medical Records I reviewed the patient's medical records. 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 gabapentin 100 mg capsule 100 mg PO TID Qty: 90 4RF (DME) Dexcom G6 Transmitter Device See Rx Instructions .Route Qty: 3 3RF Rx Instructions: Change every 90 days. Glucagon Emergency Kit (human) 1 mg recon soln 1 mg SUBCUT Q20M PRN (Reason: hypoglycemia) Qty: 1 3RF Rx Instructions: until target blood sugar attained amlodipine [Norvasc] 2.5 mg tablet 2.5 mg PO DAILY carbidopa-levodopa 25-100 mg tablet See Rx Instructions .ROUTE .COMPLEX Rx Instructions: TAKE 0.5 (1/2) TABLET BY MOUTH BEFORE DIALYSIS. Auryxia 210 mg iron tablet 630 mg PO TID@08,12,20 Rx Instructions: TAKE WITH MEALS ropinirole 0.5 mg tablet 0.5 mg PO QPM clopidogrel 75 mg tablet 75 mg PO DAILY Qty: 30 0RF escitalopram oxalate 20 mg tablet 20 mg PO DAILY rosuvastatin 20 mg tablet 20 mg PO BEDTIME RenaPlex-D 800 mcg-12.5 mg -2,000 unit tablet 1 tab PO DAILY cefdinir 300 mg capsule 300 mg PO BID Qty: 14 0RF metoprolol succinate 50 mg tablet extended release 24 hr 50 mg PO DAILY levothyroxine 50 mcg tablet 50 mcg PO DAILY cyclobenzaprine 10 mg tablet 10 mg PO Q8H PRN (Reason: MUSCLE SPASMS) Qty: 14 0RF cetirizine 10 mg Tablet 10 mg PO DAILY ibuprofen [Advil Liqui-Gel] 200 mg Capsule 200 mg PO .Q4-6H PRN (Reason: Pain) diphenhydramine HCl [Benadryl] 25 mg Capsule 25 mg PO BID PRN (Reason: ALLERGIES) omeprazole 20 mg Capsule,Delayed Release(Dr/Ec) 20 mg PO BEDTIME Santyl 250 unit/gram ointment 1 applic topical BID Discharge Orders: Discharge ED (Routine); Ordered 12/16/23 Ordered By: Kassi Vincent Referrals: Vivienne Schulz MD [Primary Care Provider] - Coding Level of Care Code ED Air Carrier Inspector for Chg Lico
[2023-12-16 15:15] VITALS: BP 137/77; PULSE 96; O2SAT 92
== END 2023-12-16 15:16 | disposition home or self-care (01) ==
PROVIDERS: Emergency Provider Physician Assistant; PCP Internal Medicine
DX: M79.671 Pain in right foot (principal); Z79.02 Long term (current) use of antithrombotics/antiplatelets; E11.22 Type 2 diabetes mellitus with diabetic chronic kidney disease; N18.6 End stage renal disease; I12.0 Hypertensive chronic kidney disease with stage 5 chronic kidney disease or end stage renal disease; E78.5 Hyperlipidemia, unspecified
CPT/HCPCS: 73630; 99283

== ENCOUNTER 2023-12-23 14:03 | Observation (INO) | payer MEDICARE, MEDICAID, SELFPAY ==
[2023-12-23] VITALS (8 sets, daily range): BP systolic 90–155; BP diastolic 57–91; PULSE 86–109; RESP 16–18; TEMP 37–37.2; O2SAT 87–98; BMI 35.4
--- NOTE | 2023-12-23 14:52 | ED_ITS ---
HPI - Extremity Problem 2 General: Chief complaint: Extremity Problem,Nontraumatic Stated complaint: leg pain Time Seen by Provider: 12/23/23 14:22 History of Present Illness: 58-year-old female presents emergency ro om complaining of restless leg syndrome as well as a small wound on her left heel from when she was at dialysis she hit her heel and has a bandage on is no longer actively bleeding. Is complaining of restless leg syndrome as well as there is generalized discomfort. No fever sweats or chills. No increased swelling in her legs. She did complete her dialysis earlier today prior to coming in. Associated symptoms: Deny chest pain, fever(s) or rash Related Data Home Medications Medication Instructions Recorded Confirmed carbidopa 25 mg-levodopa 100 mg See Rx Instructions .Route .COMPLEX 05/20/20 11/23/23 tablet ferric citrate 210 mg iron tablet 630 mg PO TID@08,12,20 05/20/20 11/23/23 (Auryxia) ropinirole 0.5 mg tablet 0.5 mg PO QPM 06/21/20 11/23/23 amlodipine 2.5 mg tablet (Norvasc) 2.5 mg PO DAILY 09/28/22 11/23/23 levothyroxine 50 mcg tablet 50 mcg PO DAILY 08/24/23 11/23/23 metoprolol succinate 50 mg 50 mg PO DAILY 08/24/23 11/23/23 tablet,extended release 24 hr cetirizine 10 mg tablet 10 mg PO DAILY 09/16/23 11/23/23 collagenase clostridium histo. 250 1 applic topical BID 09/16/23 11/23/23 unit/gram topical ointment (Santyl) diphenhydramine HCl 25 mg capsule 25 mg PO BID PRN ALLERGIES 09/16/23 11/23/23 (Benadryl) ibuprofen 200 mg capsule (Advil 200 mg PO .Q4-6H PRN Pain 09/16/23 11/23/23 Liqui-Gel) omeprazole 20 mg capsule,delayed 20 mg PO BEDTIME 09/16/23 11/23/23 release escitalopram oxalate 20 mg tablet 20 mg PO DAILY 11/02/23 11/23/23 rosuvastatin 20 mg tablet 20 mg PO BEDTIME 11/02/23 11/23/23 vit B,C-folic ac 800 mcg-zinc 12.5 1 tab PO DAILY 11/02/23 11/23/23 mg-selen-D3 2,000 unit-vit E tablet (RenaPlex-D) Previous Rx's Medication Instructions Recorded blood-glucose meter,continuous #1 ea 09/24/21 (Dexcom G6 Dice Person) blood-glucose sensor (Dexcom G6 #9 ea 09/24/21 Sensor device) clopidogrel 75 mg tablet 75 mg PO DAILY #30 tabs 11/27/21 blood-glucose transmitter (Dexcom #3 ea 12/24/21 G6 Transmitter device) glucagon 1 mg solution for 1 mg SUBCUT Q20M PRN hypoglycemia 12/24/21 injection (Glucagon Emergency Kit) #1 ea gabapentin 100 mg capsule 100 mg PO TID #90 caps 04/21/23 cyclobenzaprine 10 mg tablet 10 mg PO Q8H PRN MUSCLE SPASMS #14 09/04/23 tabs cefdinir 300 mg capsule 300 mg PO BID #14 caps 11/23/23 Allergies Allergy/AdvReac Type Severity Reaction Status Date / Time acetaminophen Allergy Unknown ALGY-Hives Verified 11/23/23 07:01 gabapentin Allergy Unknown ALGY-Hives Verified 11/23/23 07:01 codeine Allergy ALGY-Hives Verified 11/23/23 07:01 fentanyl Allergy ALGY-Hives Verified 11/23/23 07:01 hydrocodone Allergy ALGY-Hives Verified 11/23/23 07:01 influenza virus vaccine qs Allergy ALGY-Hives Verified 11/23/23 07:01 [id number](65 years up) [From Fluad Quad 2019-(65y up)(PF)] Iodinated Contrast Media Allergy ALGY-Anaphy Verified 11/23/23 07:01 laxis kiwi Allergy ALGY-Anaphy Verified 11/23/23 07:01 laxis lisinopril Allergy ADR-Cough Verified 11/23/23 07:01 NSAIDS (Non-Steroidal Allergy ALGY-Hives Verified 11/23/23 07:01 Anti-Inflamma oxycodone Allergy ALGY-Hives Verified 11/23/23 07:01 pineapple Allergy ALGY-Anaphy Verified 11/23/23 07:01 laxis promethazine Allergy Unknown Verified 11/23/23 07:01 strawberry Allergy ALGY-Anaphy Verified 11/23/23 07:01 laxis tramadol Allergy ALGY-Hives Verified 11/23/23 07:01 vaccine adjuvant emulsion Allergy ALGY-Hives Verified 11/23/23 07:01 MF59C.1 [From [employer] (65y up)(PF)] Review of Systems 2 Const: Denies: fever(s) or chills Card: Denies: chest pain Resp: Denies: dyspnea GI: Denies: abdominal pain : Denies: dysuria, urinary frequency or urinary urgency Musc: Denies: neck pain or back pain Skin/Breast: Denies: rash PFSH ED 2 PFSH: Medical History (Updated 12/23/23 @ 20:19 by Jd Mejía DO) UTI (urinary tract infection) Abdominal wall cellulitis Seropositive rheumatoid arthritis Insulin dependent type 2 diabetes mellitus Sacral decubitus ulcer, stage III Cellulitis Cystitis Elevated troponin Hyperkalemia Hyponatremia Sacral decubitus ulcer Acute encephalopathy ESRD (end stage renal disease) Fracture of greater tuberosity of left humerus Fracture of humeral head, left, closed Stage III pressure ulcer of sacral region Decubitus ulcer of sacral region, unstageable Failure to thrive Weakness Toe fracture Contusion of right foot ESRD (end stage renal disease) Rash Left foot pain Long-term insulin use Diabetes type 2, uncontrolled Appetite loss MCI (mild cognitive impairment) Hypothyroidism COVID-19 Hypertension Anxiety ESRD (end stage renal disease) Diabetes Hyperlipidemia Chronic back pain De Quervain's tenosynovitis Surgical History Status post colonoscopy S/P dialysis catheter insertion Removed 07/14/20 S/P arteriovenous (AV) fistula creation History of temporal artery biopsy H/O dilation and curettage H/O section Hx of cholecystectomy History of appendectomy History of carpal tunnel repair H/O neck surgery fusion Family History Father Bleeding disorder Other Diabetes Heart disease Hyperlipidemia Hypertension Kidney problem Migraines Stroke Denies family history of Anesthesia complication Social History Smoking and tobacco/nicotine status: never used tobacco/nicotine Second hand smoke exposure: No Alcohol intake: never Substance/Drug Use: never Adopted: No Caregiver/support person: Yes Lives independently: Yes Household members: family Housing: House Marital status: Single Highest education level completed: High School Graduate service: No Current occupational status: disabled Current occupational exposures/hazards: No Pets and animals: Yes Pets & animals: dog(s) Sexually active: No Do you think of yourself as: Straight/Heterosexual Current gender identity: Female Sabina/Orthodox: Pentecostalism Special sabina needs: No Agree to transfusion: No Physical Exam 2 Const: GENERAL APPEARANCE: cooperative ORIENTATION/CONSCIOUSNESS: Yes awake HENMT: COMMON NORMALS: normocephalic, atraumatic and hearing grossly normal bilaterally HEAD & SCALP: normocephalic and atraumatic Resp: COMMON NORMALS: normal respiratory effort, No retractions, No use of accessory muscles and clear to auscultation bilaterally AUSCULTATION: clear to auscultation bilaterally Cardio: COMMON NORMALS: regular rate, regular rhythm and No murmurs present (Cardio) RATE: regular rate RHYTHM: regular rhythm GI: COMMON NORMALS: Soft to palpation and No hepatosplenomegaly present A USCULTATION: Yes normoactive bowel sounds PALPATION: Yes Soft to palpation, No Tenderness to palpation present (GI), No Guarding due to palpation present (GI) and Yes No hepatosplenomegaly present OTHER: Mild abdominal wall redness no induration no drainage Back/Pelvis: OTHER: Sacral ulcer good granulation tissue no drainage Extremity: COMMON NORMALS: normal to inspection, capillary refill normal, no clubbing, cyanosis or edema, no calf tenderness and no pedal edema Skin: COMMON NORMALS: no rashes or lesions noted GENERAL SKIN EXAM: no rashes or lesions noted Course 2 Vital Signs: Vital signs: Vital Signs Temperature 98.6 F 12/23/23 14:17 Pulse Rate 86 12/23/23 17:37 Respiratory Rate 18 12/23/23 14:17 Blood Pressure 131/91 12/23/23 17:37 Pulse Oximetry 92 12/23/23 17:37 Oxygen Delivery Me thod Room Air 12/23/23 16:43 MDM - Extremity (Nontraumatic) Medical Decision Making Patient encephalopathic's complaining of severe restless leg she gave her Tylenol Ativan Cogentin did seem to help some. She has mild cellulitis of the abdomen she does have a significant cystitis. Lactic acid mildly elevated. Will admit for encephalopathy started Rocephin cultures done as well. Discussed with hospitalist orders written Lab Data 12/23/23 15:18 12/23/23 15:18 Radiology Impressions Chest X-Ray 12/23/23 15:02 IMPRESSION: Stable abnormal chest, cardiomegaly with pulmonary venous hypertension. No pulmonary edema or acute infiltrate. Laboratory Results WBC 7.63 10^3/uL (3.29-11.43) 12/23/23 15:18 RBC 2.73 10^6/uL (3.85-5.65) L 12/23/23 15:18 Hgb 8.30 g/dL (11.27-16.99) L 12/23/23 15:18 Hct 27.6 % (36-47) L 12/23/23 15:18 MCV 101.1 fl (85-98) H 12/23/23 15:18 MCH 30.4 pg (27-33) 12/23/23 15:18 MCHC 30.1 g/dL (30-55) 12/23/23 15:18 RDW 15.9 % (12.1-15.1) H 12/23/23 15:18 Plt Count 264 10^3/cmm (157-399) 12/23/23 15:18 MPV 9.9 fL (7.4-10.4) 12/23/23 15:18 Neut % (Auto) 81.9 % 12/23/23 15:18 Lymph % (Auto) 8.3 % 12/23/23 15:18 [place] % (Auto) 9.4 % 12/23/23 15:18 Eos % (Auto) 0.0 % 12/23/23 15:18 Baso % (Auto) 0.0 % 12/23/23 15:18 Neut # (Auto) 6.25 10^3/uL (1.8-7.7) 12/23/23 15:18 Lymph # (Auto) 0.6 10^3/uL (0.8-4.8) L 12/23/23 15:18 [place] # (Auto) 0.7 10^3/uL (0.2-0.9) 12/23/23 15:18 Eos # (Auto) 0.0 10^3/uL (0.0-0.8) 12/23/23 15:18 Baso # (Auto) 0.0 10^3/uL (0.0-0.1) 12/23/23 15:18 Nucleated RBC % (auto) 0 % 12/23/23 15:18 Nucleated RBCs # 0.0 /100WBC 12/23/23 15:18 Sodium 135 mmol/L (136-145) L 12/23/23 15:18 Potassium 3.7 mmol/L (3.5-5.1) 12/23/23 15:18 Chloride 94 mmol/L (98-107) L 12/23/23 15:18 Carbon Dioxide 28 mmol/L (22-29) 12/23/23 15:18 Anion Gap 16.7 (5-19) 12/23/23 15:18 BUN 8 mg/dL (6-20) 12/23/23 15:18 Creatinine 2.1 mg/dL (0.5-0.9) H 12/23/23 15:18 GFR Calculation 24.1 mL/min (90-130) L 12/23/23 15:18 Glucose 125 mg/dL (65-115) H 12/23/23 15:18 Calculated Osmolality 280 mOsm/kg (285-295) L 12/23/23 15:18 Lactic Acid 2.2 mmol/L (0.5-2.2) 12/23/23 17:04 Calcium 8.7 mg/dL (8.5-10.5) 12/23/23 15:18 Magnesium 1.9 mg/dL (1.7-2.3) 12/23/23 15:18 Total Bilirubin 0.4 mg/dL (0.15-1.2) 12/23/23 15:18 AST 16 U/L (0-32) 12/23/23 15:18 ALT < 5 U/L (0-33) 12/23/23 15:18 Alkaline Phosphatase 96 U/L (35-105) 12/23/23 15:18 Total Protein 7.2 g/dL (6.6-8.7) 12/23/23 15:18 Albumin 3.1 g/dL (3.5-5.2) L 12/23/23 15:18 Globulin 4.1 g/dL (1.3-4.6) 12/23/23 15:18 Urine Color Yellow (Yellow) 12/23/23 16:00 Urine Appearance Cloudy (CLEAR) A 12/23/23 16:00 Urine pH 7 (5-7) 12/23/23 16:00 Ur Specific [place] 1.005 (1.005-1.030) 12/23/23 16:00 Urine Protein 3+ (Negative) H 12/23/23 16:00 Urine Glucose (UA) Norm (Normal) 12/23/23 16:00 Urine Ketones Negative (Negative) 12/23/23 16:00 Urine Blood 3+ (Negative) H 12/23/23 16:00 Urine Nitrate Negative (Negative) 12/23/23 16:00 Urine Bilirubin 1+ (Negative) H 12/23/23 16:00 Urine Urobilinogen Norm mg/dL (Negative) 12/23/23 16:00 Ur Leukocyte Esterase 2+ (Negative) H 12/23/23 16:00 Urine RBC 15-25 /hpf (0-2) H 12/23/23 16:00 Urine WBC Too numerous to cnt /hpf (0-5) H 12/23/23 16:00 Ur Squamous Epith Cells 5-10 /hpf (0-5) H 12/23/23 16:00 Ur Transition Epith Cell 5-10 /hpf 12/23/23 16:00 Amorphous Sediment Not Reportable 12/23/23 16:00 Urine Bacteria 2+ /hpf (NONE) H 12/23/23 16:00 Urine Mucus Trace /hpf 12/23/23 16:00 All radiology interpretation(s) finalized by discharge Discharge Plan Discharge Patient Disposition: Admitted As Inpatient Admit Provider: Jigar Flanagan Clinical Impression: Encephalopathy, ESRD (end stage renal disease), Cellulitis, Cystitis, Sacral ulcer Condition: Stable Coding Level of Care Code ED Want Ad Receiver for Danial Barfield
--- NOTE | 2023-12-23 15:02 | XR_ITS ---
WS: [id number] XR chest 1V portable [id number] REASON FOR EXAM: dyspnea/cough FINDINGS: The chest is unchanged compared to 11/23/2023. Cardiomegaly. Prominence of the central pulmonary veins. No definite pulmonary edema or acute infiltrate. Significant degenerative spondylosis in the thoracic spine. Healing fracture of the surgical neck of the left humerus. XR/XR chest 1V portable [id number] IMPRESSION: Stable abnormal chest, cardiomegaly with pulmonary venous hypertension. No pulmonary edema or acute infiltrate.
--- NOTE | 2023-12-23 15:04 | ECG_ITS ---
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 Measurements Intervals [place] Rate: 103 P: 61 NE: 163 QRS: -41 QRSD: 134 T: 94 QT: 423 QTc: 555 Interpretive Statements SINUS TACHYCARDIA LEFT AXIS DEVIATION [QRS AXIS < -30] RIGHT BUNDLE BRANCH BLOCK [120+ ms QRS DURATION, UPRIGHT V1, 40+ ms S IN I/aVL/V4/V5/V6] POSSIBLE ANTERIOR MYOCARDIAL INFARCTION , PROBABLY OLD [30 ms Q WAVE IN V3/V4, OR R < 0.2 mV IN V4] Compared to ECG 11/23/2023 07:17:52 Sinus rhythm no longer present ST (T wave) deviation no longer present Myocardial infarct finding still present Electronically Signed On 12-23-2023 16:51:18 CDT by Merced Woods M.D. [email or web address]
[2023-12-23 15:31] LABS: Hematocrit 27.6 % (36-47); Lymphocytes # 0.6 10^3/uL (0.8-4.8); Lymphocytes % 8.3 %; Mean Corpuscular HGB Conc 30.1 g/dL (30-55); Mean Corpuscular Hemoglobin 30.4 pg (27-33); Mean Corpuscular Volume 101.1 fl (85-98); Mean Platelet Volume 9.9 fL (7.4-10.4); Monocytes # 0.7 10^3/uL (0.2-0.9); Monocytes % 9.4 %; Neutrophils # 6.25 10^3/uL (1.8-7.7); Neutrophils % 81.9 %; Nucleated Red Blood Cells % 0 %; Platelet Count 264 10^3/cmm (157-399); Red Blood Count 2.73 10^6/uL (3.85-5.65); Red Cell Distribution Width 15.9 % (12.1-15.1); White Blood Count 7.63 10^3/uL (3.29-11.43)
[2023-12-23] MEDS: ropinirole 0.25 mg Tablet 0.5 MG PO (15:33)
[2023-12-23 15:54] LABS: Alanine Aminotransferase < 5 U/L (0-33); Albumin Level 3.1 g/dL (3.5-5.2); Alkaline Phosphatase 96 U/L (35-105); Anion Gap 16.7 (5-19); Aspartate Amino Transferase 16 U/L (0-32); Blood Urea Nitrogen 8 mg/dL (6-20); Calcium 8.7 mg/dL (8.5-10.5); Carbon Dioxide 28 mmol/L (22-29); Chloride 94 mmol/L (98-107); Creatinine Clr Calc Pharmacy 27.4216; Globulin 4.1 g/dL (1.3-4.6); Glomerular Filtration Rate 24.1 mL/min (90-130); Glucose 125 mg/dL (65-115); Magnesium 1.9 mg/dL (1.7-2.3); Osmolality Calculated 280 mOsm/kg (285-295); Potassium 3.7 mmol/L (3.5-5.1); Sodium 135 mmol/L (136-145); Total Bilirubin 0.4 mg/dL (0.15-1.2); Total Protein 7.2 g/dL (6.6-8.7)
[2023-12-23 16:18] LABS: Bilirubin Urine 1+ (Negative); Blood Urine 3+ (Negative); Glucose Urine UA Norm (Normal); Ketones Urine Negative (Negative); Leukocyte Esterase Urine 2+ (Negative); Nitrate Urine Negative (Negative); Protein Urine 3+ (Negative); Specific Gravity, Urine 1.005 (1.005-1.030); Urine Appearance Cloudy (CLEAR); Urine Color Yellow (Yellow); Urobilinogen Urine Norm (Negative); pH Urine 7 (5-7)
[2023-12-23 16:19] LABS: Add Urine Microscopic? YES
[2023-12-23 16:21] LABS: Add Urine Culture? Yes; Bacteria Urine 2+ /hpf; Mucus Urine TRACE /hpf; RBC Urine 15-25 /hpf (0-2); WBC Urine TOO NUMEROUS TO CNT /hpf (0-5)
[2023-12-23] MEDS: benztropine 1 mg/mL SDV 2 mL IM (16:42)
[2023-12-23] MEDS: LORazepam 2 mg/mL INJ 1 mL 1 MG IVP (16:43)
--- NOTE | 2023-12-23 16:43 | PC.NURSE ---
antibiotics delayed d/t need blood cultures drawn
[2023-12-23] MEDS: cefTRIAXone 1,000 mg SDV 1000 MG IVP (17:23)
[2023-12-23] MEDS: tetanus-dipt-pertussis 0.5 mL SDV IM (17:27)
[2023-12-23 17:28] LABS: Lactic Sepsis W/Reflex 2.2 mmol/L (0.5-2.2)
[2023-12-23] MEDS: morphine 4 mg/mL SDV 1 mL 2 MG IVP (17:31)
--- NOTE | 2023-12-23 17:35 | PC.NURSE ---
pt report called to Kaitlin on Med-Surg, no further questions
--- NOTE | 2023-12-23 17:50 | P.HP_ITS ---
Providers/Chief Complaint 2 Admitting Physician: Jigar Flanagan MD Primary Care Provider: Vivienne Schulz MD Chief Complaint: leg pain History of Present Illness Elvi Kaiser is a 58 year old female who was discharge in past few months after debridement of sacral area ulcer and abdominal wall cellulitis, on Tuesday dialysis dependent, cognitive impairment, full code presented after dialysis today for chief complaint leg cramps. In the ER she was agitated, was experiencing akathisia, she received Cogentin, she was diagnosed with UTI. She was bit tachycardic as well. At the time of evaluation patient is verbally redirectable but oriented to herself only. She is afebrile. Not able to provide much history. Sacral area ulcer with good granulation tissue, abdominal wall cellulitis no active drainage however it is erythematous Review of Systems 2 General: Reports: ROS unobtainable due to medical condition Medications/Allergies Home Medications Medication Instructions Recorded Confirmed Last Taken Type carbidopa 25 mg-levodopa 100 mg See Rx Instructions .Route .COMPLEX 05/20/20 11/23/23 11/01/23 History tablet ferric citrate 210 mg iron tablet 630 mg PO TID@08,12,20 05/20/20 11/23/23 11/22/23 History (Auryxia) ropinirole 0.5 mg tablet 0.5 mg PO QPM 06/21/20 11/23/23 11/22/23 History blood-glucose meter,continuous #1 ea 09/24/21 11/23/23 Unknown Rx (Dexcom G6 Animal Shelter Supervisor) blood-glucose sensor (Dexcom G6 #9 ea 09/24/21 11/23/23 Unknown Rx Sensor device) clopidogrel 75 mg tablet 75 mg PO DAILY #30 tabs 11/27/21 11/23/23 11/22/23 Rx blood-glucose transmitter (Dexcom #3 ea 12/24/21 11/23/23 Unknown Rx G6 Transmitter device) glucagon 1 mg solution for 1 mg SUBCUT Q20M PRN hypoglycemia 12/24/21 11/23/23 Unknown Rx injection (Glucagon Emergency Kit) #1 ea amlodipine 2.5 mg tablet (Norvasc) 2.5 mg PO DAILY 09/28/22 11/23/23 11/22/23 History gabapentin 100 mg capsule 100 mg PO TID #90 caps 04/21/23 11/23/23 11/22/23 Rx levothyroxine 50 mcg tablet 50 mcg PO DAILY 08/24/23 11/23/23 11/22/23 History metoprolol succinate 50 mg 50 mg PO DAILY 08/24/23 11/23/23 11/22/23 History tablet,extended release 24 hr cyclobenzaprine 10 mg tablet 10 mg PO Q8H PRN MUSCLE SPASMS #14 09/04/23 11/23/23 Unknown Rx tabs cetirizine 10 mg tablet 10 mg PO DAILY 09/16/23 11/23/23 11/22/23 History collagenase clostridium histo. 250 1 applic topical BID 09/16/23 11/23/23 Unknown History unit/gram topical ointment (Santyl) diphenhydramine HCl 25 mg capsule 25 mg PO BID PRN ALLERGIES 09/16/23 11/23/23 11/22/23 History (Benadryl) ibuprofen 200 mg capsule (Advil 200 mg PO .Q4-6H PRN Pain 09/16/23 11/23/23 Unknown History Liqui-Gel) omeprazole 20 mg capsule,delayed 20 mg PO BEDTIME 09/16/23 11/23/23 11/22/23 History release escitalopram oxalate 20 mg tablet 20 mg PO DAILY 11/02/23 11/23/23 11/22/23 History rosuvastatin 20 mg tablet 20 mg PO BEDTIME 11/02/23 11/23/23 11/22/23 History vit B,C-folic ac 800 mcg-zinc 12.5 1 tab PO DAILY 11/02/23 11/23/23 11/22/23 History mg-selen-D3 2,000 unit-vit E tablet (RenaPlex-D) cefdinir 300 mg capsule 300 mg PO BID #14 caps 11/23/23 Unknown Rx Allergies Allergy/AdvReac Type Severity Reaction Status Date / Time acetaminophen Allergy Unknown ALGY-Hives Verified 11/23/23 07:01 gabapentin Allergy Unknown ALGY-Hives Verified 11/23/23 07:01 codeine Allergy ALGY-Hives Verified 11/23/23 07:01 fentanyl Allergy ALGY-Hives Verified 11/23/23 07:01 hydrocodone Allergy ALGY-Hives Verified 11/23/23 07:01 influenza virus vaccine qs Allergy ALGY-Hives Verified 11/23/23 07:01 (65 years up) [From Beamr (65y up)(PF)] Iodinated Contrast Media Allergy ALGY-Anaphy Verified 11/23/23 07:01 laxis kiwi Allergy ALGY-Anaphy Verified 11/23/23 07:01 laxis lisinopril Allergy ADR-Cough Verified 11/23/23 07:01 NSAIDS (Non-Steroidal Allergy ALGY-Hives Verified 11/23/23 07:01 Anti-Inflamma oxycodone Allergy ALGY-Hives Verified 11/23/23 07:01 pineapple Allergy ALGY-Anaphy Verified 11/23/23 07:01 laxis promethazine Allergy Unknown Verified 11/23/23 07:01 strawberry Allergy ALGY-Anaphy Verified 11/23/23 07:01 laxis tramadol Allergy ALGY-Hives Verified 11/23/23 07:01 vaccine adjuvant emulsion Allergy ALGY-Hives Verified 11/23/23 07:01 [id number] [From Beamr (65y up)(PF)] PFSH Acute 2 PFSH: Medical History (Updated 12/23/23 @ 18:56 by Jigar Flanagan MD) UTI (urinary tract infection) Abdominal wall cellulitis Seropositive rheumatoid arthritis Insulin dependent type 2 diabetes mellitus Sacral decubitus ulcer, stage III Cellulitis Cystitis Elevated troponin Hyperkalemia Hyponatremia Sacral decubitus ulcer Acute encephalopathy ESRD (end stage renal disease) Fracture of greater tuberosity of left humerus Fracture of humeral head, left, closed Stage III pressure ulcer of sacral region Decubitus ulcer of sacral region, unstageable Failure to thrive Weakness Toe fracture Contusion of right foot ESRD (end stage renal disease) Rash Left foot pain Long-term insulin use Diabetes type 2, uncontrolled Appetite loss MCI (mild cognitive impairment) Hypothyroidism COVID-19 Hypertension Anxiety ESRD (end stage renal disease) Diabetes Hyperlipidemia Chronic back pain De Quervain's tenosynovitis Surgical History Status post colonoscopy S/P dialysis catheter insertion Removed 07/14/20 S/P arteriovenous (AV) fistula creation History of temporal artery biopsy H/O dilation and curettage H/O section Hx of cholecystectomy History of appendectomy History of carpal tunnel repair H/O neck surgery fusion Family History Father Bleeding disorder Other Diabetes Heart disease Hyperlipidemia Hypertension Kidney problem Migraines Stroke Denies family history of Anesthesia complication Social History Smoking and tobacco/nicotine status: never used tobacco/nicotine Second hand smoke exposure: No Alcohol intake: never Substance/Drug Use: never Adopted: No Caregiver/support person: Yes Lives independently: Yes Household members: family Housing: House Marital status: Single Highest education level completed: High School Graduate service: No Current occupational status: disabled Current occupational exposures/hazards: No Pets and animals: Yes Pets & animals: dog(s) Sexually active: No Do you think of yourself as: Straight/Heterosexual Current gender identity: Female Sabina/Muslim: Congregation Special sabina needs: No Agree to transfusion: No Vitals/I&O/Wt Last Vital Signs Temp 98.6 F 12/23/23 14:17 Pulse 86 12/23/23 17:37 Resp 18 12/23/23 14:17 BP 131/91 12/23/23 17:37 Pulse Ox 92 12/23/23 17:37 O2 Del Method Room Air 12/23/23 16:43 Weight last 48 hrs Weight 82.3 kg Physical Exam 2 Narrative: Akathisia Oriented to herself Moving her extremities No focal deficit S1, S2 Abdomen wall cellulitis No active necrotic tissue Sacral area ulcer present admission stage II with good clinician tissue Hemodynamically stable Currently on room air Patient is tossing in bed Data 12/23/23 15:18 12/23/23 15:18 Micro: Microbiology 12/23/23 17:00 Blood Culture - Preliminary Blood SPECIMEN COLLECTED 12/23/23 17:04 Blood Culture - Preliminary Blood SPECIMEN COLLECTED A&P Assessment and plan (1) JENNIFER positive: (2) PAPO (obstructive sleep apnea): (3) Akathisia: Plan Metabolic encephalopathy related to UTI Leg cramps and concern for akathisia She had received Cogentin in the ER Patient takes carbidopa and ropinirole which I would hold for now Can resume from tomorrow Start renal dialysis diet Start ceftriaxone No history of ESBL Patient has history of obstructive sleep apnea uses 2 to 3 L of oxygen at nighttime Has age-related cognitive impairment, restless, may need Seroquel on as-needed basis For abdominal wall cellulitis I will request topical bacitracin Hydrofera Blue for sacral ulcer management Apply Santyl Patient has had multiple admissions in the last few months, Full code Renal dialysis diet DVT prophylaxis added Attestations 2 Medical Necessity Statement*: Anticipating discharge within 48 hours Diagnoses JENNIFER positive R76.8 PAPO (obstructive sleep apnea) G47.33 Akathisia G25.71
[2023-12-23 18:55] LABS: Reflex Lactate Order REFLEX LACTIC ORDERD
[2023-12-23 19:39] LABS: Lactic Acid level (Lactate) 2.5 mmol/L (0.5-2.2)
[2023-12-23] MEDS: heparin 5,000 unit/mL INJ 1 mL 5000 UNIT SUBCUT (21:20)
[2023-12-23] MEDS: bacitracin ointment Pkt 1 EACH TOPICAL (21:20)
--- NOTE | 2023-12-23 21:35 | PC.NURSE ---
HS medications held d/t pt somnolence from receiving Morphine and Ativan in ER. Unable to complete admission assessment at this time.
[2023-12-23 21:37] LABS: Glucose Point of Care 135 mg/dL (70-110)
[2023-12-24] VITALS (9 sets, daily range): BP systolic 96–142; BP diastolic 50–74; PULSE 74–112; RESP 15–18; TEMP 36.4–36.9; O2SAT 84–100
[2023-12-24 04:48] LABS: Basophils % 0.3 %; Hematocrit 29.4 % (36-47); Lymphocytes # 0.6 10^3/uL (0.8-4.8); Lymphocytes % 7.7 %; Mean Corpuscular HGB Conc 28.9 g/dL (30-55); Mean Corpuscular Hemoglobin 30.9 pg (27-33); Mean Corpuscular Volume 106.9 fl (85-98); Mean Platelet Volume 10.3 fL (7.4-10.4); Monocytes # 0.7 10^3/uL (0.2-0.9); Monocytes % 8.9 %; Neutrophils # 6.26 10^3/uL (1.8-7.7); Neutrophils % 82.7 %; Nucleated Red Blood Cells % 0 %; Platelet Count 236 10^3/cmm (157-399); Red Blood Count 2.75 10^6/uL (3.85-5.65); Red Cell Distribution Width 16.3 % (12.1-15.1); White Blood Count 7.56 10^3/uL (3.29-11.43)
[2023-12-24 05:17] LABS: Anion Gap 18.6 (5-19); Blood Urea Nitrogen 13 mg/dL (6-20); C Reactive Protein 134.4 mg/L (0.0-4.9); Carbon Dioxide 27 mmol/L (22-29); Chloride 95 mmol/L (98-107); Creatinine Clr Calc Pharmacy 18.8535; Glomerular Filtration Rate 15.4 mL/min (90-130); Glucose 144 mg/dL (65-115); Magnesium 2.1 mg/dL (1.7-2.3); Osmolality Calculated 287 mOsm/kg (285-295); Phosphorus 4.2 mg/dL (2.5-4.5); Potassium 3.6 mmol/L (3.5-5.1); Sodium 137 mmol/L (136-145)
[2023-12-24] MEDS: levothyroxine 50 mcg Tablet PO (06:02)
[2023-12-24] MEDS: cefTRIAXone 1,000 MG in sodium chloride 0.9% (plus) 50 ML 100 MG IV (08:29)
[2023-12-24] MEDS: carbidopa-levodopa 25-100mg Tablet 0.5 EACH PO (08:30)
[2023-12-24] MEDS: amlodipine 5 mg Tablet 2.5 MG PO (08:30)
[2023-12-24] MEDS: metoprolol succinate ER (24 HR) 50 mg Tablet PO (08:30)
[2023-12-24] MEDS: heparin 5,000 unit/mL INJ 1 mL 5000 UNIT SUBCUT ×2 (08:40→21:06)
[2023-12-24] MEDS: collagenase oint 30 gm 1 APPLIC TOPICAL ×2 (10:41→17:03)
[2023-12-24] MEDS: bacitracin ointment Pkt 1 EACH TOPICAL ×3 (10:41→21:06)
[2023-12-24] MEDS: morphine 4 mg/mL SDV 1 mL 2 MG IVP (10:53)
--- NOTE | 2023-12-24 14:01 | P.PN_ITS ---
Subjective 2 Subjective: seen at bedside today. states she is feeling improved. alert, oriented to self and location. as encounter progressed she became increasingly confused. difficulty eating food as she was thinking food was on the table when it was paper. pt stats it is 2/2 previous CVA. likely some affect of morphine. Medications: Reviewed: Yes Vitals/I&O/Wt Last Vital Signs Temp 98.4 F 12/24/23 10:00 Pulse 74 12/24/23 10:00 Resp 16 12/24/23 10:53 BP 142/74 12/24/23 10:00 Pulse Ox 95 12/24/23 10:00 O2 Del Method Room Air 12/24/23 10:00 12/23/23 12/24/23 12/24/23 22:59 06:59 14:59 Intake Total 50 / 50 Balance 50 / 50 Weight last 48 hrs Weight 186 lb 6.4 oz Weight 186 lb 4 oz Weight 181 lb 7.047 oz Physical Exam 2 Narrative: Akathisia Oriented to herself Moving her extremities No focal deficit S1, S2 Abdomen wall cellulitis, improving No active necrotic tissue Sacral area ulcer present admission stage II with good clinician tissue Hemodynamically stable Currently on room air Patient is tossing in bed Data 12/24/23 04:28 12/24/23 04:28 Micro: Microbiology 12/23/23 17:00 Blood Culture - Preliminary Blood SPECIMEN COLLECTED 12/23/23 17:04 Blood Culture - Preliminary Blood SPECIMEN COLLECTED A&P Assessment and plan (1) JENNIFER positive: (2) PAPO (obstructive sleep apnea): (3) Akathisia: Plan Plan Metabolic encephalopathy related to UTI - improving Leg cramps and concern for akathisia -improving. LEATHA on CKD abdominal wall cellulitis Assessment monitor mentation She had received Cogentin in the ER - improvement in mentation Renal diet IV rocephin, pending cultures PAPO on 2-3L NC qhs Has age-related cognitive impairment, restless, may need Seroquel on as-needed basis For abdominal wall cellulitis I will request topical bacitracin Hydrofera Blue for sacral ulcer management Apply Santyl to wound Patient has had multiple admissions in the last few months, likely d/c in AM Full code Renal dialysis diet DVT prophylaxis added Attestations 2 Medical Necessity Statement*: will require 2 overnight stays Coding Level of Care Code 39621 Diagnoses JENNIFER positive R76.8 PAPO (obstructive sleep apnea) G47.33 Akathisia G25.71
[2023-12-24 16:22] LABS: Basophils % 0.1 %; Lymphocytes # 0.8 10^3/uL (0.8-4.8); Lymphocytes % 11.2 %; Mean Corpuscular HGB Conc 28.9 g/dL (30-55); Mean Corpuscular Volume 107.3 fl (85-98); Mean Platelet Volume 10.2 fL (7.4-10.4); Monocytes # 0.7 10^3/uL (0.2-0.9); Monocytes % 9.7 %; Neutrophils # 5.28 10^3/uL (1.8-7.7); Neutrophils % 78.6 %; Nucleated Red Blood Cells % 0 %; Platelet Count 229 10^3/cmm (157-399); Red Blood Count 2.61 10^6/uL (3.85-5.65); Red Cell Distribution Width 16.5 % (12.1-15.1); White Blood Count 6.72 10^3/uL (3.29-11.43)
[2023-12-24 16:40] LABS: Alanine Aminotransferase 6 U/L (0-33); Albumin Level 2.9 g/dL (3.5-5.2); Alkaline Phosphatase 91 U/L (35-105); Anion Gap 20.5 (5-19); Aspartate Amino Transferase 27 U/L (0-32); Blood Urea Nitrogen 16 mg/dL (6-20); Calcium 8.8 mg/dL (8.5-10.5); Carbon Dioxide 23 mmol/L (22-29); Chloride 94 mmol/L (98-107); Globulin 3.6 g/dL (1.3-4.6); Glomerular Filtration Rate 12.9 mL/min (90-130); Glucose 163 mg/dL (65-115); Osmolality Calculated 283 mOsm/kg (285-295); Potassium 3.5 mmol/L (3.5-5.1); Sodium 134 mmol/L (136-145); Total Bilirubin 0.3 mg/dL (0.15-1.2); Total Protein 6.5 g/dL (6.6-8.7)
[2023-12-24] MEDS: ropinirole 0.25 mg Tablet 0.5 MG PO (17:04)
[2023-12-24] MEDS: pantoprazole DR 40 mg Tablet PO (21:06)
[2023-12-25] VITALS: BP 114/55; PULSE 80; RESP 17; TEMP 37.2; O2SAT 94
[2023-12-25 04:00] VITALS: BP 108/58; PULSE 82; RESP 17; TEMP 36.7; O2SAT 94
[2023-12-25 05:44] VITALS: PULSE 80
[2023-12-25] MEDS: levothyroxine 50 mcg Tablet PO (06:17)
[2023-12-25 08:00] VITALS: BP 113/64; PULSE 82; RESP 16; TEMP 37.6; O2SAT 93
[2023-12-25] MEDS: cefTRIAXone 1,000 MG in sodium chloride 0.9% (plus) 50 ML 100 MG IV (10:01)
[2023-12-25] MEDS: amlodipine 5 mg Tablet 2.5 MG PO (10:01)
[2023-12-25] MEDS: metoprolol succinate ER (24 HR) 50 mg Tablet PO (10:02)
--- NOTE | 2023-12-25 11:07 | P.DS_ITS ---
Discharge Providers Date of Admission: 12/23/23 17:13 Date of Discharge: December 25, 2023 Attending Provider at Admission: Jigar Flanagan MD Attending Provider at Discharge: Jigar Flanagan MD Primary Care Provider: Vivienne Schulz MD Diagnoses at Discharge Discharge Diagnosis (1) JENNIFER positive: Status: Acute (2) PAPO (obstructive sleep apnea): Status: Acute (3) Akathisia: Status: Acute Reason for Visit Reason for Visit: leg pain Hospital Course Hospital Course 58 female with multiple comorbid conditions such as restless leg syndrome, histo ry of CVA, arthritis, end-stage renal disease, hypothyroidism, cognitive impairment, sacral area ulcer, abdominal wall cellulitis with recent debridement, present to the hospital for chief complaint of leg cramps after getting dialysis on Tuesday. In the hospital she was diagnosed with UTI, she was given Cogentin for concern related to extraparametal symptoms. Her mentation improved significantly. She is not showing any signs of stroke. She does get confused on and off but no signs of stroke, she has age-related cognitive impairment. Lives with her son. She will need wound care referral to the clinic. At this point abdominal wall cellulitis is not showing any sign of worsening, sacral area ulcer showing granulation tissue. Sisters was concerned that she might not do well with son at home and might require long-term placement in future. For now patient is being discharged home with wound care referral. Patient does have restless leg syndrome and takes Requip. Physical Exam Narrative: Patient is awake and alert Nonfocal neuroexam Pleasant cooperative Sitting in a recliner Currently on room air Hemodynamic stable Discharge Data Studies Completed and Pending Completed Studies During Hospitalization Category Date Time Status XR chest 1V portable [id number] Stat Exams 12/23/23 15:02 Completed Pending at discharge Category Date Time Status Blood Culture Stat Lab 12/23/23 17:00 Results CMP [Comprehensive Metabolic Panel] Routine Lab 12/25/23 09:03 Ordered Complete Blood Count w/Auto Routine Lab 12/25/23 09:03 Ordered Urine Culture Stat Lab 12/23/23 16:00 Received Radiology Impressions Chest X-Ray 12/23/23 15:02 IMPRESSION: Stable abnormal chest, cardiomegaly with pulmonary venous hypertension. No pulmonary edema or acute infiltrate. Laboratory Results WBC 6.72 10^3/uL (3.29-11.43) 12/24/23 15:46 RBC 2.61 10^6/uL (3.85-5.65) L 12/24/23 15:46 Hgb 8.10 g/dL (11.27-16.99) L 12/24/23 15:46 Hct 28.0 % (36-47) L 12/24/23 15:46 MCV 107.3 fl (85-98) H 12/24/23 15:46 MCH 31.0 pg (27-33) 12/24/23 15:46 MCHC 28.9 g/dL (30-55) L 12/24/23 15:46 RDW 16.5 % (12.1-15.1) H 12/24/23 15:46 Plt Count 229 10^3/cmm (157-399) 12/24/23 15:46 MPV 10.2 fL (7.4-10.4) 12/24/23 15:46 Neut % (Auto) 78.6 % 12/24/23 15:46 Lymph % (Auto) 11.2 % 12/24/23 15:46 Gaines % (Auto) 9.7 % 12/24/23 15:46 Eos % (Auto) 0.0 % 12/24/23 15:46 Baso % (Auto) 0.1 % 12/24/23 15:46 Neut # (Auto) 5.28 10^3/uL (1.8-7.7) 12/24/23 15:46 Lymph # (Auto) 0.8 10^3/uL (0.8-4.8) 12/24/23 15:46 Gaines # (Auto) 0.7 10^3/uL (0.2-0.9) 12/24/23 15:46 Eos # (Auto) 0.0 10^3/uL (0.0-0.8) 12/24/23 15:46 Baso # (Auto) 0.0 10^3/uL (0.0-0.1) 12/24/23 15:46 Nucleated RBC % (auto) 0 % 12/24/23 15:46 Nucleated RBCs # 0.0 /100WBC 12/24/23 15:46 Sodium 134 mmol/L (136-145) L 12/24/23 15:46 Potassium 3.5 mmol/L (3.5-5.1) 12/24/23 15:46 Chloride 94 mmol/L (98-107) L 12/24/23 15:46 Carbon Dioxide 23 mmol/L (22-29) 12/24/23 15:46 Anion Gap 20.5 (5-19) H 12/24/23 15:46 BUN 16 mg/dL (6-20) 12/24/23 15:46 Creatinine 3.6 mg/dL (0.5-0.9) H 12/24/23 15:46 GFR Calculation 12.9 mL/min (90-130) L 12/24/23 15:46 Glucose 163 mg/dL (65-115) H 12/24/23 15:46 POC Glucose 135 mg/dL (70-110) H 12/23/23 21:34 Calculated Osmolality 283 mOsm/kg (285-295) L 12/24/23 15:46 Lactic Acid 2.2 mmol/L (0.5-2.2) 12/23/23 17:04 Lactic Acid (Sepsis) 2.5 mmol/L (0.5-2.2) H 12/23/23 19:12 Calcium 8.8 mg/dL (8.5-10.5) 12/24/23 15:46 Phosphorus 4.2 mg/dL (2.5-4.5) 12/24/23 04:28 Magnesium 2.1 mg/dL (1.7-2.3) 12/24/23 04:28 Total Bilirubin 0.3 mg/dL (0.15-1.2) 12/24/23 15:46 AST 27 U/L (0-32) 12/24/23 15:46 ALT 6 U/L (0-33) 12/24/23 15:46 Alkaline Phosphatase 91 U/L (35-105) 12/24/23 15:46 C-Reactive Protein 134.4 mg/L (0.0-4.9) H 12/24/23 04:28 Total Protein 6.5 g/dL (6.6-8.7) L 12/24/23 15:46 Albumin 2.9 g/dL (3.5-5.2) L 12/24/23 15:46 Globulin 3.6 g/dL (1.3-4.6) 12/24/23 15:46 Urine Color Yellow (Yellow) 12/23/23 16:00 Urine Appearance Cloudy (CLEAR) A 12/23/23 16:00 Urine pH 7 (5-7) 12/23/23 16:00 Ur Specific [place] 1.005 (1.005-1.030) 12/23/23 16:00 Urine Protein 3+ (Negative) H 12/23/23 16:00 Urine Glucose (UA) Norm (Normal) 12/23/23 16:00 Urine Ketones Negative (Negative) 12/23/23 16:00 Urine Blood 3+ (Negative) H 12/23/23 16:00 Urine Nitrate Negative (Negative) 12/23/23 16:00 Urine Bilirubin 1+ (Negative) H 12/23/23 16:00 Urine Urobilinogen Norm mg/dL (Negative) 12/23/23 16:00 Ur Leukocyte Esterase 2+ (Negative) H 12/23/23 16:00 Urine RBC 15-25 /hpf (0-2) H 12/23/23 16:00 Urine WBC Too numerous to cnt /hpf (0-5) H 12/23/23 16:00 Ur Squamous Epith Cells 5-10 /hpf (0-5) H 12/23/23 16:00 Ur Transition Epith Cell 5-10 /hpf 12/23/23 16:00 Amorphous Sediment Not Reportable 12/23/23 16:00 Urine Bacteria 2+ /hpf (NONE) H 12/23/23 16:00 Urine Mucus Trace /hpf 12/23/23 16:00 Vitals Last Vital Signs Temp 99.6 F 12/25/23 08:00 Pulse 82 12/25/23 08:00 Resp 16 12/25/23 08:00 BP 113/64 12/25/23 08:00 Pulse Ox 93 12/25/23 08:00 O2 Del Method Room Air 12/25/23 08:00 O2 Flow Rate 2 12/24/23 20:13 Discharge Plan Discharge Patient Disposition: Home Condition: Stable Prescriptions: New cefpodoxime 200 mg tablet 200 mg PO BID Qty: 14 0RF Rx Instructions: must administer with a meal/food Continued (DME) Dexcom G6 Iron Installer Misc See Rx Instructions .Route Qty: 1 0RF Rx Instructions: Check BS continuously (DME) Dexcom G6 Sensor Device See Rx Instructions .Route Qty: 9 3RF Rx Instructions: Change every 10 days. gabapentin 100 mg capsule 100 mg PO TID Qty: 90 4RF (DME) Dexcom G6 Transmitter Device See Rx Instructions .Route Qty: 3 3RF Rx Instructions: Change every 90 days. Glucagon Emergency Kit (human) 1 mg recon soln 1 mg SUBCUT Q20M PRN (Reason: hypoglycemia) Qty: 1 3RF Rx Instructions: until target blood sugar attained amlodipine [Norvasc] 2.5 mg tablet 2.5 mg PO DAILY carbidopa-levodopa 25-100 mg tablet See Rx Instructions .ROUTE .COMPLEX Rx Instructions: TAKE 0.5 (1/2) TABLET BY MOUTH BEFORE DIALYSIS. Auryxia 210 mg iron tablet 630 mg PO TID@08,12,20 Rx Instructions: TAKE WITH MEALS ropinirole 0.5 mg tablet 0.5 mg PO QPM clopidogrel 75 mg tablet 75 mg PO DAILY Qty: 30 0RF escitalopram oxalate 20 mg tablet 20 mg PO DAILY rosuvastatin 20 mg tablet 20 mg PO BEDTIME RenaPlex-D 800 mcg-12.5 mg -2,000 unit tablet 1 tab PO DAILY metoprolol succinate 50 mg tablet extended release 24 hr 50 mg PO DAILY levothyroxine 50 mcg tablet 50 mcg PO DAILY cyclobenzaprine 10 mg tablet 10 mg PO Q8H PRN (Reason: MUSCLE SPASMS) Qty: 14 0RF ibuprofen [Advil Liqui-Gel] 200 mg Capsule 200 mg PO .Q4-6H PRN (Reason: Pain) diphenhydramine HCl [Benadryl] 25 mg Capsule 25 mg PO BID PRN (Reason: ALLERGIES) omeprazole 20 mg Capsule,Delayed Release(Dr/Ec) 20 mg PO BEDTIME Santyl 250 unit/gram ointment 1 applic topical BID Discontinued cefdinir 300 mg capsule 300 mg PO BID Qty: 14 0RF cetirizine 10 mg Tablet 10 mg PO DAILY Discharge Orders: Discharge Order (Routine); Ordered 12/25/23 Ordered By: Jigar Flanagan Referrals: Vivienne Schulz MD [Primary Care Provider] - 7-10 days (Please Call on Tuesday and make a follow up appointment for 7-10 days. ) Phyllis Cha NP [Nurse Practitioner] - 1-3 days Patient Instructions: Cefpodoxime Proxetil (By mouth), Urinary Tract Infection in Women (DC), Opioid Safety Activity Restrictions/Additional Instructions: Apply Santyl to abdominal wall twice daily. Remove dressing, cleanse with normal saline, apply hydrafera blue cut to wound size. Cover with tegaderm once daily. Discharge Attestations Time Spent in Discharge Care*: greater than 30 min Status at Discharge: Cognitive status at discharge: cognitively intact , Behavioral status at discharge: cooperative , Quality Metrics Clinical Quality Measures [ No reported AMI, CVA or VTE this stay] Coding Level of Care Code Acute Code for Chg Fwd Diagnoses JENNIFER positive R76.8 PAPO (obstructive sleep apnea) G47.33 Akathisia G25.71
[2023-12-25 13:05] VITALS: BP 113/64; PULSE 82; RESP 16; TEMP 37.6; O2SAT 93
== END 2023-12-25 13:13 | disposition home or self-care (01) ==
LOC: ER 14:53 → MEDSURG 17:13
PROVIDERS: Family Medicine; Admitting Provider Internal Medicine; Emergency Provider Family Medicine; PCP Internal Medicine; Visit Provider Internal Medicine
DX: R76.8 Other specified abnormal immunological findings in serum (principal); G47.33 Obstructive sleep apnea (adult) (pediatric); G25.71 Drug induced akathisia; Z86.73 Personal history of transient ischemic attack (TIA), and cerebral infarction without residual deficits; E11.22 Type 2 diabetes mellitus with diabetic chronic kidney disease; I12.9 Hypertensive chronic kidney disease with stage 1 through stage 4 chronic kidney disease, or unspecified chronic kidney disease; N18.6 End stage renal disease; E03.9 Hypothyroidism, unspecified; Z79.4 Long term (current) use of insulin; F41.9 Anxiety disorder, unspecified; E78.5 Hyperlipidemia, unspecified
CPT/HCPCS: 36415; 36416; 71045; 80048; 80053; 81001; 82962; 83605; 83735; 84100; 85025; 86140; 87040; 87077; 87086; 87186; 90715; 93005; 96365; 96372; 96375; 96376; 97161; 99285; G0378; J0515; J0696; J1644; J2060; J2270

== ENCOUNTER 2023-12-27 09:14 | Observation (INO) | payer MEDICARE, MEDICAID, SELFPAY ==
[2023-12-27] VITALS (10 sets, daily range): BP systolic 120–160; BP diastolic 54–84; PULSE 68–79; RESP 18; TEMP 36.4–36.8; O2SAT 94–99; BMI 34.2; BMI 36.6
--- NOTE | 2023-12-27 09:26 | CT_ITS ---
WS: [id number] CT HEAD NONCONTRAST HISTORY: fall, head injury TECHNIQUE: Contiguous axial imaging performed through the brain in 2.5 mm imaging. Bone and soft tiss ue windows. Sagittal and coronal reformats reviewed. All CT scans at [facility] use at least one of these dose optimization techniques: automated exposure control; mA and/or kV adjustment per pa tient size (includes targeted exams where dose is matched to clinical indication); or iterative recon struction. DLP: 1112.68 mGy.cm COMPARISON: 11/25/2023, 08/24/2023 No acute intracranial hemorrhage, midline shift or mass effect. Dense area of encephalomalacia with dystrophic calcifications involving a remote infarct involving th e RIGHT parietal temporal and occipital lobes. Ex vacuo dilatation of the adjacent RIGHT lateral vent ricle. Additional small vessel disease. Ventricles: No hydrocephalus. No inferior displacement of cerebellar tonsils. Paranasal sinuses: As visualized are clear. Mastoid air cells: Well pneumatized. Calvarium and scalp: Bilateral nasal bone fractures. Age-indeterminate. Patient's had multiple falls recently. No adjacent soft tissue hematoma. CT/CT head wo con* [id number] IMPRESSION: 1. No acute intracranial hemorrhage or edema. 2. Remote large infarct in the RIGHT cerebrum with dystrophic calcifications. 3. Age-indeterminate bilateral nasal bone fractures. Patient's had multiple fa lls recently. Fractures were not definitely seen on the facial bone CT of 2013.
--- NOTE | 2023-12-27 09:26 | XRR_ITS ---
PROCEDURE INFORMATION: Exam: XR Chest Exam date and time: 12/27/2023 9:39 AM Age: 58 years old Clinical indication: Injury or trauma; Fall; Blunt trauma (contusions or hematomas); Injury date: 12/27/23; Additional info: Weakness TECHNIQUE: Imaging protocol: Radiologic exam of the chest. Views: 1 view. COMPARISON: CR XR chest 1V portable [id number] 12/23/2023 3:27 PM FINDINGS: Lungs: Mild vascular and interstitial prominence. Pleural spaces: Unremarkable. No pleural effusion. No pneumothorax. Heart/Mediastinum: See Vasculature finding. Vasculature: Mild cardiomegaly and uncoiling of the thoracic aorta. Bones/joints: Unremarkable. XR/XR chest 1V portable [id number] IMPRESSION: No acute findings.
--- NOTE | 2023-12-27 09:27 | XRR_ITS ---
PROCEDURE INFORMATION: Exam: XR Bilateral Hips Exam date and time: 12/27/2023 9:40 AM Age: 58 years old Clinical indication: Injury or trauma; Fall; Blunt trauma (contusions or hematomas); Bilateral; Hip; Additional info: Fall, bilateral hip pain, 2 views each hip and pelvis done, 5 views TECHNIQUE: Imaging protocol: Radiologic exam of the bilateral hips. Views: 2 views of hips with pelvis when performed. COMPARISON: CT abdomen pelvis wo con [id number] 09/16/2023 9:30 AM FINDINGS: Bones/joints: Mild articular surface narrowing and spurring. No fracture or dislocation. No lytic or sclerotic bone lesion. No acute fracture. Soft tissues: Unremarkable. Vasculature: Arterial calcifications. XR/XR hip BI m 5V wo/w pel* [id number] IMPRESSION: No acute findings.
[2023-12-27 09:42] LABS: ABG PCO2 42.8 mmHg (35-45); ABG PH Result 7.42 (7.35-7.45); Alveolar-Arterial Oxygen Gradi 4.6 mmHg (5-10); Arterial Blood Gas Hematocrit 30.1 % (37-47); Base Excess ABG 2.7 mmol/L (-2.0-2.0); Blood Gas Operator Identificat AMH; Blood Gas Sample Site Brachial, left; Blood Gas Sample Type Arterial; Carboxyhemoglobin 1.8 %THgb (0.4-20.1); HCO3 ABG 27.6 mmol/L (22-26); Ionized Calcium Level - ABG 1.2 mmol/L (1.1-1.4); Methemoglobin 0.9 % (0.4-1.5); Oxygen Device ROOM AIR; Oxygen Saturation ABG 90.5; PO2 ABG 61.7 mmHg (80.0-100.0); PO2 FiO2 Ratio Arterial Blood 293; Potassium Level - ABG 3.3 mmol/L (3.5-5.0); Total Hemoglobin 9.8 g/dL (12-16)
--- NOTE | 2023-12-27 09:51 | W.ED.WEAKNES ---
HPI - Weakness General: Chief complaint: Weakness Stated complaint: fall. weakness Time Seen by Provider: 12/27/23 09:21 History of Present Illness: 58-year-old female with a history of end-stage renal disease on dialysis, restless leg syndrome, hypertension, diabetes, hyperlipidemia, who presents to the emergency room with generalized weakness and somnolence. She is very somnolent but arousable. Apparently she had multiple falls recently. She was admitted to the hospital recently. Apparently this was for restless legs. And she had a cellulitis on her abdomen. There is some discussion of the discharge that she might need custodial placement. Today no known fevers. Cannot obtain much other history from her as she is very somnolent. She is complaining of some bilateral hip pain from her falls. Unknown if she hit her head. Review of Systems Narrative: Constitutional symptoms: Negative except as documented in HPI. Skin symptoms: Negative except as documented in HPI. Eye symptoms: Negative except as documented in HPI. ENMT symptoms: Negative except as documented in HPI. Respiratory symptoms: Negative except as documented in HPI. Cardiovascular symptoms: Negative except as documented in HPI. Gastrointestinal symptoms: Negative except as documented in HPI. Genitourinary symptoms: Negative except as documented in HPI. Musculoskeletal symptoms: Negative except as documented in HPI. Neurologic symptoms: Negative except as documented in HPI. Psychiatric symptoms: Negative except as documented in HPI. Endocrine symptoms: Negative except as documented in HPI. [facility] PFSH: Medical History Sacral ulcer Cystitis Cellulitis Encephalopathy Akathisia PAPO (obstructive sleep apnea) UTI (urinary tract infection) Abdominal wall cellulitis Seropositive rheumatoid arthritis JENNIFER positive Insulin dependent type 2 diabetes mellitus Sacral decubitus ulcer, stage III Cellulitis Cystitis Elevated troponin Hyperkalemia Hyponatremia Sacral decubitus ulcer Acute encephalopathy ESRD (end stage renal disease) Fracture of greater tuberosity of left humerus Fracture of humeral head, left, closed Stage III pressure ulcer of sacral region Decubitus ulcer of sacral region, unstageable Failure to thrive Weakness Toe fracture Contusion of right foot ESRD (end stage renal disease) Rash Left foot pain Long-term insulin use Diabetes type 2, uncontrolled Appetite loss MCI (mild cognitive impairment) Hypothyroidism COVID-19 Hypertension Anxiety ESRD (end stage renal disease) Diabetes Hyperlipidemia Chronic back pain De Quervain's tenosynovitis Surgical History Status post colonoscopy S/P dialysis catheter insertion Removed 07/14/20 S/P arteriovenous (AV) fistula creation History of temporal artery biopsy H/O dilation and curettage H/O section Hx of cholecystectomy History of appendectomy History of carpal tunnel repair H/O neck surgery fusion Family History Father Bleeding disorder Other Diabetes Heart disease Hyperlipidemia Hypertension Kidney problem Migraines Stroke Denies family history of Anesthesia complication Social History Smoking and tobacco/nicotine status: never used tobacco/nicotine Second hand smoke exposure: No Alcohol intake: never Substance/Drug Use: never Adopted: No Caregiver/support person: Yes Lives independently: Yes Household members: family Housing: House Marital status: Single Highest education level completed: High School Graduate service: No Current occupational status: disabled Current occupational exposures/hazards: No Pets and animals: Yes Pets & animals: dog(s) Sexually active: No Do you think of yourself as: Straight/Heterosexual Current gender identity: Female Sabina/Congregational: Hoahaoism Special sabina needs: No Agree to transfusion: No Physical Exam Narrative: EXAM NARRATIVE: General: Somnolent but arousable Skin: Warm, dry Head: Normocephalic, atraumatic. Neck: Supple, trachea midline. Eye: Extraocular movements are intact. Ears, nose, mouth and throat: Dry oral mucosa. Cardiovascular: Regular rate and rhythm, Normal peripheral perfusion. Respiratory: Lungs are clear to auscultation, respirations are non-labored, breath sounds are equal, Symmetrical chest wall expansion. Gastrointestinal: Soft, Nontender, Non distended, Normal bowel sounds. Musculoskeletal: no deformity. Neurological: Somnolent but oriented when awakened, No obvious focal neurological deficit observed. Psychiatric: unable to assess. Course Vital Signs: Vital signs: Vital Signs Temperature 98.2 F 12/27/23 09:20 Pulse Rate 79 12/27/23 09:20 Respiratory Rate 18 12/27/23 09:20 Blood Pressure 155/65 12/27/23 09:55 Pulse Oximetry 95 12/27/23 10:33 Oxygen Delivery Me thod Room Air 12/27/23 10:33 MDM - Weakness Medical Decision Making Medical decision making: Differential diagnosis for patient presenting with generalized weakness including but not limited to and based on the above HPI, review of systems and physical exam: Sepsis. Dehydration. Renal failure. Electrolyte abnormalities. Anemia. Congestive heart failure. Hypotension. Coronary syndrome. Hepatitis. Cirrhosis. Infections such as pneumonia, urinary tract infection, [place]ne illness, Cellulitis, Viral infections including influenza and Covid-19. Workup: labwork and lab/exam driven imaging ordered to evaluate, rule in and rule out above pathologies. CT head: There is an old area of encephalomalacia. No acute intracranial process. no intracranial hemorrhage, no evidence of infarct. no evidence of acute fracture.This was reviewed and interpreted by myself the ER physician. Chest x-ray: Cardiomegaly. No acute process. No infiltrate. No pneumothorax. This was reviewed and interpreted by myself the ER physician. Lab Review: Laboratory results were reviewed and interpreted by myself the emergency room physician. White count is 7. This is left shifted 84%. Given her renal failure she may be a bit immunocompromise. BUN and creatinine are 36 and 6.1. Potassium 3.5. She missed her dialysis yesterday. Urinalysis shows continued urinary tract infection with too numerous to count whites in her urine. Liver enzymes are normal. Respiratory panel is negative. I reviewed the patient's medical record. Review of December 22 urine culture shows a ESBL E. coli. I am starting her on meropenem here as she continues to have a urinary tract infection and symptoms. Reexamination: Patient remained stable. No increased work of breathing. No altered mental status. No focal motor deficits. Patient seems a little less somnolent at this time. Discussed findings with family and with her. Consultation: I spoke with Dr. Kong who is on-call for the hospitalist service. He agrees to admission. Consultation: I spoke with Dr. Botello with nephrology service who will direct dialysis. Assessment and plan: Metabolic encephalopathy Urinary tract infection ESBL E. coli. End-stage renal disease on dialysis. ?IV meropenem in the emergency room. -I discussed the patient with the hospitalist on-call who is admitting the patient. - Discussed findings and plan with patient. Answered any questions. - All laboratory values were reviewed and interpreted personally by myself, the ER physician - All imaging was reviewed and interpreted personally by myself, the ER physician. - Evaluation and treatment of this problem were appropriate in the emergency setting Lab Data 12/27/23 10:43 12/27/23 10:43 Radiology Impressions Chest X-Ray 12/27/23 09:26 IMPRESSION: No acute findings. Head CT 12/27/23 09:26 IMPRESSION: 1. No acute intracranial hemorrhage or edema. 2. Remote large infarct in the RIGHT cerebrum with dystrophic calcifications. 3. Age-indeterminate bilateral nasal bone fractures. Patient's had multiple falls recently. Fractures were not definitely seen on the facial bone CT of 11/01/2013. Hip/Pelvis X-Ray 12/27/23 09:27 IMPRESSION: No acute findings. Laboratory Results WBC 7.09 10^3/uL (3.29-11.43) 12/27/23 10:43 RBC 3.21 10^6/uL (3.85-5.65) L 12/27/23 10:43 Hgb 10.10 g/dL (11.27-16.99) L 12/27/23 10:43 Hct 34.0 % (36-47) L 12/27/23 10:43 MCV 105.9 fl (85-98) H 12/27/23 10:43 MCH 31.5 pg (27-33) 12/27/23 10:43 MCHC 29.7 g/dL (30-55) L 12/27/23 10:43 RDW 16.1 % (12.1-15.1) H 12/27/23 10:43 Plt Count 260 10^3/cmm (157-399) 12/27/23 10:43 MPV 10.1 fL (7.4-10.4) 12/27/23 10:43 Neut % (Auto) 84.4 % 12/27/23 10:43 Lymph % (Auto) 7.8 % 12/27/23 10:43 Alexander % (Auto) 7.1 % 12/27/23 10:43 Eos % (Auto) 0.0 % 12/27/23 10:43 Baso % (Auto) 0.1 % 12/27/23 10:43 Neut # (Auto) 5.99 10^3/uL (1.8-7.7) 12/27/23 10:43 Lymph # (Auto) 0.6 10^3/uL (0.8-4.8) L 12/27/23 10:43 Alexander # (Auto) 0.5 10^3/uL (0.2-0.9) 12/27/23 10:43 Eos # (Auto) 0.0 10^3/uL (0.0-0.8) 12/27/23 10:43 Baso # (Auto) 0.0 10^3/uL (0.0-0.1) 12/27/23 10:43 Nucleated RBC % (auto) 0 % 12/27/23 10:43 Nucleated RBCs # 0.0 /100WBC 12/27/23 10:43 Specimen Type Arterial 12/27/23 09:31 Sample Site Brachial, left 12/27/23 09:31 ABG pH 7.42 (7.35-7.45) 12/27/23 09:31 ABG pCO2 42.8 mmHg (35-45) 12/27/23 09:31 ABG pO2 61.7 mmHg (80.0-100.0) L 12/27/23 09:31 ABG PO2/FiO2 Ratio 293 12/27/23 09:31 ABG HCO3 27.6 mmol/L (22-26) H 12/27/23 09:31 ABG O2 Saturation 90.5 12/27/23 09:31 ABG Base Excess 2.7 mmol/L (-2.0-2.0) H 12/27/23 09:31 Marquis Test N/a 12/27/23 09:31 A-a O2 Gradient 4.6 mmHg (5-10) L 12/27/23 09:31 Hematocrit 30.1 % (37-47) L 12/27/23 09:31 Hgb O2 Saturation 88.0 % (95-100) L 12/27/23 09:31 Carboxyhemoglobin 1.8 %THgb (0.4-20.1) 12/27/23 09:31 Methemoglobin 0.9 % (0.4-1.5) 12/27/23 09:31 Total Hemoglobin 9.8 g/dL (12-16) L 12/27/23 09:31 Sodium 134.0 mmol/L (131-143) 12/27/23 09:31 Potassium 3.3 mmol/L (3.5-5.0) L 12/27/23 09:31 Glucose 117.0 mg/dL (70-115) H 12/27/23 09:31 Ionized Calcium 1.2 mmol/L (1.1-1.4) 12/27/23 09:31 O2 Delivery Device Room air 12/27/23 09:31 FiO2 21.0 % 12/27/23 09:31 Sports Cartoonist ID Amh 12/27/23 09:31 Sodium 135 mmol/L (136-145) L 12/27/23 10:43 Potassium 3.5 mmol/L (3.5-5.1) 12/27/23 10:43 Chloride 92 mmol/L (98-107) L 12/27/23 10:43 Carbon Dioxide 24 mmol/L (22-29) 12/27/23 10:43 Anion Gap 22.5 (5-19) H 12/27/23 10:43 BUN 36 mg/dL (6-20) H 12/27/23 10:43 Creatinine 6.1 mg/dL (0.5-0.9) H* 12/27/23 10:43 GFR Calculation 7.0 mL/min (90-130) L 12/27/23 10:43 Glucose 114 mg/dL (65-115) 12/27/23 10:43 Calculated Osmolality 289 mOsm/kg (285-295) 12/27/23 10:43 Lactic Acid 2.1 mmol/L (0.5-2.2) 12/27/23 10:43 Calcium 8.8 mg/dL (8.5-10.5) 12/27/23 10:43 Phosphorus 4.7 mg/dL (2.5-4.5) H 12/27/23 10:43 Total Bilirubin 0.4 mg/dL (0.15-1.2) 12/27/23 10:43 AST 60 U/L (0-32) H 12/27/23 10:43 ALT 20 U/L (0-33) 12/27/23 10:43 Alkaline Phosphatase 112 U/L (35-105) H 12/27/23 10:43 C-Reactive Protein 139.3 mg/L (0.0-4.9) H 12/27/23 10:43 Total Protein 7.1 g/dL (6.6-8.7) 12/27/23 10:43 Albumin 3.1 g/dL (3.5-5.2) L 12/27/23 10:43 Globulin 4.0 g/dL (1.3-4.6) 12/27/23 10:43 Urine Color Yellow (Yellow) 12/27/23 10:55 Urine Appearance Cloudy (CLEAR) A 12/27/23 10:55 Urine pH 6.5 (5-7) 12/27/23 10:55 Ur Specific [place] 1.015 (1.005-1.030) 12/27/23 10:55 Urine Protein 2+ (Negative) H 12/27/23 10:55 Urine Glucose (UA) Norm (Normal) 12/27/23 10:55 Urine Ketones 1+ (Negative) H 12/27/23 10:55 Urine Blood 3+ (Negative) H 12/27/23 10:55 Urine Nitrate Negative (Negative) 12/27/23 10:55 Urine Bilirubin 1+ (Negative) H 12/27/23 10:55 Urine Urobilinogen Norm mg/dL (Negative) 12/27/23 10:55 Ur Leukocyte Esterase 2+ (Negative) H 12/27/23 10:55 Urine RBC 15-25 /hpf (0-2) H 12/27/23 10:55 Urine WBC Too numerous to cnt /hpf (0-5) H 12/27/23 10:55 Ur Squamous Epith Cells 10-15 /hpf (0-5) H 12/27/23 10:55 Ur Transition Epith Cell 0-4 /hpf 12/27/23 10:55 Amorphous Sediment Not Reportable 12/27/23 10:55 Urine Bacteria 2+ /hpf (NONE) H 12/27/23 10:55 Urine Mucus Trace /hpf 12/27/23 10:55 Coronavirus (PCR) Negative (Negative) 12/27/23 10:30 Influenza A (PCR) Negative (Negative) 12/27/23 10:30 Influenza Type B (PCR) Negative (Negative) 12/27/23 10:30 RSV (PCR) Negative (Negative) 12/27/23 10:30 All radiology interpretation(s) finalized by discharge Discharge Plan Discharge Patient Disposition: Admitted As Inpatient Clinical Impression: Metabolic encephalopathy, Urinary tract infection, History of infection due to ESBL Escherichia coli, End stage renal disease on dialysis Condition: Stable Coding Level of Care Code ED Gang Supervisor for Chg Fwd Related Data Home Medications Medication Instructions Recorded Confirmed carbidopa 25 mg-levodopa 100 mg See Rx Instructions .Route .COMPLEX 05/20/20 12/27/23 tablet ferric citrate 210 mg iron tablet 630 mg PO TID@08,12,20 05/20/20 12/27/23 (Auryxia) ropinirole 0.5 mg tablet 0.5 mg PO QPM 06/21/20 12/27/23 amlodipine 2.5 mg tablet (Norvasc) 2.5 mg PO DAILY 09/28/22 12/27/23 levothyroxine 50 mcg tablet 50 mcg PO DAILY 08/24/23 12/27/23 metoprolol succinate 50 mg 50 mg PO DAILY 08/24/23 12/27/23 tablet,extended release 24 hr diphenhydramine HCl 25 mg capsule 25 mg PO BID PRN ALLERGIES 09/16/23 12/27/23 (Benadryl) ibuprofen 200 mg capsule (Advil 200 mg PO .Q4-6H PRN Pain 09/16/23 12/27/23 Liqui-Gel) omeprazole 20 mg capsule,delayed 20 mg PO BEDTIME 09/16/23 12/27/23 release escitalopram oxalate 20 mg tablet 20 mg PO DAILY 11/02/23 12/27/23 rosuvastatin 20 mg tablet 20 mg PO BEDTIME 11/02/23 12/27/23 vit B,C-folic ac 800 mcg-zinc 12.5 1 tab PO DAILY 11/02/23 12/27/23 mg-selen-D3 2,000 unit-vit E tablet (RenaPlex-D) Previous Rx's Medication Instructions Recorded blood-glucose meter,continuous #1 ea 09/24/21 (Dexcom G6 Hairspring Adjuster) blood-glucose sensor (Dexcom G6 #9 ea 09/24/21 Sensor device) clopidogrel 75 mg tablet 75 mg PO DAILY #30 tabs 11/27/21 blood-glucose transmitter (Dexcom #3 ea 12/24/21 G6 Transmitter device) glucagon 1 mg solution for 1 mg SUBCUT Q20M PRN hypoglycemia 12/24/21 injection (Glucagon Emergency Kit) #1 ea gabapentin 100 mg capsule 100 mg PO TID #90 caps 04/21/23 cyclobenzaprine 10 mg tablet 10 mg PO Q8H PRN MUSCLE SPASMS #14 09/04/23 tabs cefpodoxime 200 mg tablet 200 mg PO BID #14 tabs 12/25/23 Allergies Allergy/AdvReac Type Severity Reaction Status Date / Time acetaminophen Allergy Unknown ALGY-Hives Verified 11/23/23 07:01 codeine Allergy ALGY-Hives Verified 11/23/23 07:01 fentanyl Allergy ALGY-Hives Verified 11/23/23 07:01 hydrocodone Allergy ALGY-Hives Verified 11/23/23 07:01 influenza virus vaccine qs Allergy ALGY-Hives Verified 11/23/23 07:01 (65 years up) [From [employer] (65y up)(PF)] Iodinated Contrast Media Allergy ALGY-Anaphy Verified 11/23/23 07:01 laxis kiwi Allergy ALGY-Anaphy Verified 11/23/23 07:01 laxis lisinopril Allergy ADR-Cough Verified 11/23/23 07:01 NSAIDS (Non-Steroidal Allergy ALGY-Hives Verified 12/27/23 11:18 Anti-Inflamma oxycodone Allergy ALGY-Hives Verified 11/23/23 07:01 pineapple Allergy ALGY-Anaphy Verified 11/23/23 07:01 laxis promethazine Allergy Unknown Verified 11/23/23 07:01 strawberry Allergy ALGY-Anaphy Verified 11/23/23 07:01 laxis tramadol Allergy ALGY-Hives Verified 11/23/23 07:01 vaccine adjuvant emulsion Allergy ALGY-Hives Verified 11/23/23 07:01 MF59C.1 [From [employer] (65y up)(PF)]
[2023-12-27 10:57] LABS: Basophils % 0.1 %; Lymphocytes # 0.6 10^3/uL (0.8-4.8); Lymphocytes % 7.8 %; Mean Corpuscular HGB Conc 29.7 g/dL (30-55); Mean Corpuscular Hemoglobin 31.5 pg (27-33); Mean Corpuscular Volume 105.9 fl (85-98); Mean Platelet Volume 10.1 fL (7.4-10.4); Monocytes # 0.5 10^3/uL (0.2-0.9); Monocytes % 7.1 %; Neutrophils # 5.99 10^3/uL (1.8-7.7); Neutrophils % 84.4 %; Nucleated Red Blood Cells % 0 %; Platelet Count 260 10^3/cmm (157-399); Red Blood Count 3.21 10^6/uL (3.85-5.65); Red Cell Distribution Width 16.1 % (12.1-15.1); White Blood Count 7.09 10^3/uL (3.29-11.43)
[2023-12-27 11:11] LABS: Lactic Sepsis W/Reflex 2.1 mmol/L (0.5-2.2)
[2023-12-27 11:13] LABS: Alanine Aminotransferase 20 U/L (0-33); Albumin Level 3.1 g/dL (3.5-5.2); Alkaline Phosphatase 112 U/L (35-105); Anion Gap 22.5 (5-19); Aspartate Amino Transferase 60 U/L (0-32); Blood Urea Nitrogen 36 mg/dL (6-20); C Reactive Protein 139.3 mg/L (0.0-4.9); Calcium 8.8 mg/dL (8.5-10.5); Carbon Dioxide 24 mmol/L (22-29); Chloride 92 mmol/L (98-107); Creatinine Clr Calc Pharmacy 9.2571; Glucose 114 mg/dL (65-115); Osmolality Calculated 289 mOsm/kg (285-295); Phosphorus 4.7 mg/dL (2.5-4.5); Potassium 3.5 mmol/L (3.5-5.1); Sodium 135 mmol/L (136-145); Total Bilirubin 0.4 mg/dL (0.15-1.2); Total Protein 7.1 g/dL (6.6-8.7)
[2023-12-27 11:18] LABS: Bilirubin Urine 1+ (Negative); Blood Urine 3+ (Negative); Glucose Urine UA Norm (Normal); Ketones Urine 1+ (Negative); Leukocyte Esterase Urine 2+ (Negative); Nitrate Urine Negative (Negative); Protein Urine 2+ (Negative); Specific Gravity, Urine 1.015 (1.005-1.030); Urine Appearance Cloudy (CLEAR); Urine Color Yellow (Yellow); Urobilinogen Urine Norm (Negative); pH Urine 6.5 (5-7)
[2023-12-27 11:22] LABS: Add Urine Culture? Yes; Bacteria Urine 2+ /hpf; Mucus Urine TRACE /hpf; RBC Urine 15-25 /hpf (0-2); Transitional Epi Cells Urine 0-4 /hpf; WBC Urine TOO NUMEROUS TO CNT /hpf (0-5)
[2023-12-27 11:29] LABS: Covid PCR NEGATIVE (Negative); Influenza A NEGATIVE (Negative); Influenza B NEGATIVE (Negative); Respiratory Syncytial Virus Ce NEGATIVE (Negative)
--- NOTE | 2023-12-27 11:58 | P.HP_ITS ---
Providers/Chief Complaint 2 Primary Care Provider: Vivienne Schulz MD Chief Complaint: fall. weakness History of Present Illness 58 female with multiple comorbid conditions such as restless leg syndrome, history of CVA, arthritis, end-stage renal disease, hypothyroidism, cognitive impairment, sacral area ulcer, abdominal wall cellulitis with recent debridement, present to the hospital for chief complaint of confusion. Patient in the ER is confused, urine culture consistent with ESBL. She is afebrile, hemodynamically stable Nephrology consulted for dialysis, she has missed her dialysis session. She has been given meropenem, will request case management for midline placement and half-way placement Review of Systems 2 General: Reports: ROS unobtainable due to medical condition Medications/Allergies Home Medications Medication Instructions Recorded Confirmed Last Taken Type carbidopa 25 mg-levodopa 100 mg See Rx Instructions .Route .COMPLEX 05/20/20 12/27/23 11/01/23 History tablet ferric citrate 210 mg iron tablet 630 mg PO TID@08,12,20 05/20/20 12/27/23 12/27/23 History (Auryxia) ropinirole 0.5 mg tablet 0.5 mg PO QPM 06/21/20 12/27/23 12/26/23 History blood-glucose meter,continuous #1 ea 09/24/21 12/27/23 Unknown Rx (Dexcom G6 Parts Counterperson) blood-glucose sensor (Dexcom G6 #9 ea 09/24/21 12/27/23 Unknown Rx Sensor device) clopidogrel 75 mg tablet 75 mg PO DAILY #30 tabs 11/27/21 12/27/23 12/27/23 Rx blood-glucose transmitter (Dexcom #3 ea 12/24/21 12/27/23 Unknown Rx G6 Transmitter device) glucagon 1 mg solution for 1 mg SUBCUT Q20M PRN hypoglycemia 12/24/21 12/27/23 Unknown Rx injection (Glucagon Emergency Kit) #1 ea amlodipine 2.5 mg tablet (Norvasc) 2.5 mg PO DAILY 09/28/22 12/27/23 12/27/23 History gabapentin 100 mg capsule 100 mg PO TID #90 caps 04/21/23 12/27/23 12/26/23 Rx levothyroxine 50 mcg tablet 50 mcg PO DAILY 08/24/23 12/27/23 12/27/23 History metoprolol succinate 50 mg 50 mg PO DAILY 08/24/23 12/27/23 12/27/23 History tablet,extended release 24 hr cyclobenzaprine 10 mg tablet 10 mg PO Q8H PRN MUSCLE SPASMS #14 09/04/23 12/27/23 12/26/23 Rx tabs diphenhydramine HCl 25 mg capsule 25 mg PO BID PRN ALLERGIES 09/16/23 12/27/23 11/22/23 History (Benadryl) ibuprofen 200 mg capsule (Advil 200 mg PO .Q4-6H PRN Pain 09/16/23 12/27/23 Unknown History Liqui-Gel) omeprazole 20 mg capsule,delayed 20 mg PO BEDTIME 09/16/23 12/27/23 12/26/23 History release escitalopram oxalate 20 mg tablet 20 mg PO DAILY 11/02/23 12/27/23 12/27/23 History rosuvastatin 20 mg tablet 20 mg PO BEDTIME 11/02/23 12/27/23 12/26/23 History vit B,C-folic ac 800 mcg-zinc 12.5 1 tab PO DAILY 11/02/23 12/27/23 12/26/23 History mg-selen-D3 2,000 unit-vit E tablet (RenaPlex-D) cefpodoxime 200 mg tablet 200 mg PO BID #14 tabs 12/25/23 12/27/23 12/26/23 Rx Allergies Allergy/AdvReac Type Severity Reaction Status Date / Time acetaminophen Allergy Unknown ALGY-Hives Verified 11/23/23 07:01 codeine Allergy ALGY-Hives Verified 11/23/23 07:01 fentanyl Allergy ALGY-Hives Verified 11/23/23 07:01 hydrocodone Allergy ALGY-Hives Verified 11/23/23 07:01 influenza virus vaccine qs Allergy ALGY-Hives Verified 11/23/23 07:01 [id number](65 years up) [From [employer] 2019-(65y up)(PF)] Iodinated Contrast Media Allergy ALGY-Anaphy Verified 11/23/23 07:01 laxis kiwi Allergy ALGY-Anaphy Verified 11/23/23 07:01 laxis lisinopril Allergy ADR-Cough Verified 11/23/23 07:01 NSAIDS (Non-Steroidal Allergy ALGY-Hives Verified 12/27/23 11:18 Anti-Inflamma oxycodone Allergy ALGY-Hives Verified 11/23/23 07:01 pineapple Allergy ALGY-Anaphy Verified 11/23/23 07:01 laxis promethazine Allergy Unknown Verified 11/23/23 07:01 strawberry Allergy ALGY-Anaphy Verified 11/23/23 07:01 laxis tramadol Allergy ALGY-Hives Verified 11/23/23 07:01 vaccine adjuvant emulsion Allergy ALGY-Hives Verified 11/23/23 07:01 MF59C.1 [From [employer] (65y up)(PF)] PFSH Acute 2 PFSH: Medical History Sacral ulcer Cystitis Cellulitis Encephalopathy Akathisia PAPO (obstructive sleep apnea) UTI (urinary tract infection) Abdominal wall cellulitis Seropositive rheumatoid arthritis JENNIFER positive Insulin dependent type 2 diabetes mellitus Sacral decubitus ulcer, stage III Cellulitis Cystitis Elevated troponin Hyperkalemia Hyponatremia Sacral decubitus ulcer Acute encephalopathy ESRD (end stage renal disease) Fracture of greater tuberosity of left humerus Fracture of humeral head, left, closed Stage III pressure ulcer of sacral region Decubitus ulcer of sacral region, unstageable Failure to thrive Weakness Toe fracture Contusion of right foot ESRD (end stage renal disease) Rash Left foot pain Long-term insulin use Diabetes type 2, uncontrolled Appetite loss MCI (mild cognitive impairment) Hypothyroidism COVID-19 Hypertension Anxiety ESRD (end stage renal disease) Diabetes Hyperlipidemia Chronic back pain De Quervain's tenosynovitis Surgical History Status post colonoscopy S/P dialysis catheter insertion Removed 07/14/20 S/P arteriovenous (AV) fistula creation History of temporal artery biopsy H/O dilation and curettage H/O section Hx of cholecystectomy History of appendectomy History of carpal tunnel repair H/O neck surgery fusion Family History Father Bleeding disorder Other Diabetes Heart disease Hyperlipidemia Hypertension Kidney problem Migraines Stroke Denies family history of Anesthesia complication Social History Smoking and tobacco/nicotine status: never used tobacco/nicotine Second hand smoke exposure: No Alcohol intake: never Substance/Drug Use: never Adopted: No Caregiver/support person: Yes Lives independently: Yes Household members: family Housing: House Marital status: Single Highest education level completed: High School Graduate service: No Current occupational status: disabled Current occupational exposures/hazards: No Pets and animals: Yes Pets & animals: dog(s) Sexually active: No Do you think of yourself as: Straight/Heterosexual Current gender identity: Female Sabina/Yazidism: Zoroastrianism Special sabina needs: No Agree to transfusion: No Vitals/I&O/Wt Last Vital Signs Temp 98.2 F 12/27/23 09:20 Pulse 79 12/27/23 09:20 Resp 18 12/27/23 09:20 BP 155/65 12/27/23 09:55 Pulse Ox 95 12/27/23 10:33 O2 Del Method Room Air 12/27/23 10:33 Weight last 48 hrs Weight 79.379 kg Physical Exam 2 Narrative: Oriented to herself Morbidly obese No significant volume overload Currently on room air Hemodynamically stable with hypertension Abdominal wall cellulitis with no active necrotic tissue Sacral area ulcer without any active worsening or drainage around the wound S1, S2 Nonfocal neuroexam Data 12/28/23 04:29 12/28/23 04:29 A&P Assessment and plan (1) History of infection due to ESBL Escherichia coli: Plan Metabolic encephalopathy related to ESBL UTI Start meropenem Will request PICC line and 14-day treatment with ertapenem outpatient Will request half-way placement Nephrology consulted for dialysis Patient takes Cogentin for her restless leg syndrome Avoid IV fluids for now Continue Santyl, topical bacitracin with daily dressing change abdominal wall cellulitis and sacral area Hydrofera Blue for sacral area ulcer Full code Attestations 2 Medical Necessity Statement*: More than 2 midnights anticipated Diagnoses History of infection due to ESBL Escherichia coli Z86.19
--- NOTE | 2023-12-27 12:31 | PC.NURSE ---
NO IV ACCESS, PT HARD STICK. WAITING ON PICC/MIDLINE FROM GI.
[2023-12-27 12:35] LABS: Reflex Lactate Order REFLEX LACTIC ORDERD
--- NOTE | 2023-12-27 13:09 | PC.NURSE ---
casey from GI to place midline
--- NOTE | 2023-12-27 13:59 | PICC.NOTE ---
Midline placed to left brachial vein. Referred to vascular access nurse for midline placement due to poor access. Risks and benefits discussed and informed consent obtained from pt. Left arm assessed with left vein measuring 3.2 mm, straight, and apparent best choice for placement. Using sterile technique and MST, left brachial vein accessed x 1 stick. Mid-arm circumference measured 10 cm from left AC 37 cm. Trimmed cath 12 cm with 1 cm external length noted. Line secured with stat-lock. Insertion site covered with Biopatch, gauze, and TSM. Report given to bedside nurse, CIARA Chen.
[2023-12-27] MEDS: meropenem 500 mg SDV IVP (14:08)
[2023-12-27 15:19] LABS: Lactic Acid level (Lactate) 1.9 mmol/L (0.5-2.2)
[2023-12-27] MEDS: heparin, porcine 1,000 unit/mL INJ 10 mL 1000 UNIT IV (17:00)
[2023-12-27] MEDS: heparin 5,000 unit/mL INJ 1 mL 5000 UNIT SUBCUT (17:01)
--- NOTE | 2023-12-27 17:15 | P.CONIM_ITS ---
Providers/Reason For Consult 2 Consulting Physician/Specialty*: [facility]/Nephrology Reason for Consult*: ESRD Attending Physician: Jigar Flangaan MD Primary Care Provider: Vivienne Schulz MD History of Present Illness History of Present Illness Elvi Kaiser is a 58 year old female Patient is a 58-year-old female with past medical history of congestive cardiac failure, CVA, end-stage renal disease on dialysis, hypothyroidism abdominal wall cellulitis recently and underwent debridement presented with due to altered mental status. Patient missed dialysis today. Vital signs are stable. Lab data significant for hemoglobin of 9.0, creatinine 3.6 and potassium of 3.9. Review of Systems 2 Narrative: Unable to obtain full review of system assessment Medications/Allergies Home Medications Medication Instructions Recorded Confirmed Last Taken Type carbidopa 25 mg-levodopa 100 mg See Rx Instructions .Route .COMPLEX 05/20/20 12/27/23 11/01/23 History tablet ferric citrate 210 mg iron tablet 630 mg PO TID@08,12,20 05/20/20 12/27/23 12/27/23 History (Auryxia) ropinirole 0.5 mg tablet 0.5 mg PO QPM 06/21/20 12/27/23 12/26/23 History blood-glucose meter,continuous #1 ea 09/24/21 12/27/23 Unknown Rx ([employer]ex[employer] G6 [employer]) blood-glucose sensor (Dexcom G6 #9 ea 09/24/21 12/27/23 Unknown Rx Sensor device) clopidogrel 75 mg tablet 75 mg PO DAILY #30 tabs 11/27/21 12/27/23 12/27/23 Rx blood-glucose transmitter (Dexcom #3 ea 12/24/21 12/27/23 Unknown Rx G6 Transmitter device) glucagon 1 mg solution for 1 mg SUBCUT Q20M PRN hypoglycemia 12/24/21 12/27/23 Unknown Rx injection (Glucagon Emergency Kit) #1 ea amlodipine 2.5 mg tablet (Norvasc) 2.5 mg PO DAILY 09/28/22 12/27/23 12/27/23 History gabapentin 100 mg capsule 100 mg PO TID #90 caps 04/21/23 12/27/23 12/26/23 Rx levothyroxine 50 mcg tablet 50 mcg PO DAILY 08/24/23 12/27/23 12/27/23 History metoprolol succinate 50 mg 50 mg PO DAILY 08/24/23 12/27/23 12/27/23 History tablet,extended release 24 hr cyclobenzaprine 10 mg tablet 10 mg PO Q8H PRN MUSCLE SPASMS #14 09/04/23 12/27/23 12/26/23 Rx tabs diphenhydramine HCl 25 mg capsule 25 mg PO BID PRN ALLERGIES 09/16/23 12/27/23 11/22/23 History (Benadryl) ibuprofen 200 mg capsule (Advil 200 mg PO .Q4-6H PRN Pain 09/16/23 12/27/23 Unknown History Liqui-Gel) omeprazole 20 mg capsule,delayed 20 mg PO BEDTIME 09/16/23 12/27/23 12/26/23 History release escitalopram oxalate 20 mg tablet 20 mg PO DAILY 11/02/23 12/27/23 12/27/23 History rosuvastatin 20 mg tablet 20 mg PO BEDTIME 11/02/23 12/27/23 12/26/23 History vit B,C-folic ac 800 mcg-zinc 12.5 1 tab PO DAILY 11/02/23 12/27/23 12/26/23 History mg-selen-D3 2,000 unit-vit E tablet (RenaPlex-D) cefpodoxime 200 mg tablet 200 mg PO BID #14 tabs 12/25/23 12/27/23 12/26/23 Rx Allergies Allergy/AdvReac Type Severity Reaction Status Date / Time acetaminophen Allergy Unknown ALGY-Hives Verified 11/23/23 07:01 codeine Allergy ALGY-Hives Verified 11/23/23 07:01 fentanyl Allergy ALGY-Hives Verified 11/23/23 07:01 hydrocodone Allergy ALGY-Hives Verified 11/23/23 07:01 influenza virus vaccine qs Allergy ALGY-Hives Verified 11/23/23 07:01 [id number](65 years up) [From Fluad Quad 2019-(65y up)(PF)] Iodinated Contrast Media Allergy ALGY-Anaphy Verified 11/23/23 07:01 laxis kiwi Allergy ALGY-Anaphy Verified 11/23/23 07:01 laxis lisinopril Allergy ADR-Cough Verified 11/23/23 07:01 NSAIDS (Non-Steroidal Allergy ALGY-Hives Verified 12/27/23 11:18 Anti-Inflamma oxycodone Allergy ALGY-Hives Verified 11/23/23 07:01 pineapple Allergy ALGY-Anaphy Verified 11/23/23 07:01 laxis promethazine Allergy Unknown Verified 11/23/23 07:01 strawberry Allergy ALGY-Anaphy Verified 11/23/23 07:01 laxis tramadol Allergy ALGY-Hives Verified 11/23/23 07:01 vaccine adjuvant emulsion Allergy ALGY-Hives Verified 11/23/23 07:01 [id number].1 [From Sonopia (65y up)(PF)] Current Medications Generic Name Dose Route Start Last Admin Trade Name Freq PRN Reason Stop Dose Admin Heparin Sodium (Porcine) 5,000 unit 12/27/23 15:42 12/27/23 17:01 Heparin 5,000 Unit/Ml Inj 1 Ml SUBCUT 5,000 unit Q12H JAMIE Administration PFSH Acute 2 PFSH: Medical History Sacral ulcer Cystitis Cellulitis Encephalopathy Akathisia PAPO (obstructive sleep apnea) UTI (urinary tract infection) Abdominal wall cellulitis Seropositive rheumatoid arthritis JENNIFER positive Insulin dependent type 2 diabetes mellitus Sacral decubitus ulcer, stage III Cellulitis Cystitis Elevated troponin Hyperkalemia Hyponatremia Sacral decubitus ulcer Acute encephalopathy ESRD (end stage renal disease) Fracture of greater tuberosity of left humerus Fracture of humeral head, left, closed Stage III pressure ulcer of sacral region Decubitus ulcer of sacral region, unstageable Failure to thrive Weakness Toe fracture Contusion of right foot ESRD (end stage renal disease) Rash Left foot pain Long-term insulin use Diabetes type 2, uncontrolled Appetite loss MCI (mild cognitive impairment) Hypothyroidism COVID-19 Hypertension Anxiety ESRD (end stage renal disease) Diabetes Hyperlipidemia Chronic back pain De Quervain's tenosynovitis Surgical History Status post colonoscopy S/P dialysis catheter insertion Removed 07/14/20 S/P arteriovenous (AV) fistula creation History of temporal artery biopsy H/O dilation and curettage H/O section Hx of cholecystectomy History of appendectomy History of carpal tunnel repair H/O neck surgery fusion Family History Father Bleeding disorder Other Diabetes Heart disease Hyperlipidemia Hypertension Kidney problem Migraines Stroke Denies family history of Anesthesia complication Social History Smoking and tobacco/nicotine status: never used tobacco/nicotine Second hand smoke exposure: No Alcohol intake: never Substance/Drug Use: never Adopted: No Caregiver/support person: Yes Lives independently: Yes Household members: family Housing: House Marital status: Single Highest education level completed: High School Graduate service: No Current occupational status: disabled Current occupational exposures/hazards: No Pets and animals: Yes Pets & animals: dog(s) Sexually active: No Do you think of yourself as: Straight/Heterosexual Current gender identity: Female Sabina/Temple: Spiritism Special sabina needs: No Agree to transfusion: No Vitals/I&O/Wt Last Vital Signs Temp 98.2 F 12/27/23 09:20 Pulse 68 12/27/23 16:30 Resp 18 12/27/23 16:30 BP 120/54 12/27/23 15:22 Pulse Ox 95 12/27/23 16:30 O2 Del Method Nasal Cannula 12/27/23 16:30 O2 Flow Rate 2 12/27/23 16:30 Weight last 48 hrs Weight 79.379 kg Physical Exam 2 Narrative: Patient lethargic, difficult to arouse HEENT S1-S2 regular rate and rhythm the per report Lungs clear per report No pedal edema Data 12/28/23 04:29 12/28/23 04:29 A&P Assessment and plan (1) End stage renal disease on dialysis: Plan 1. End-stage renal disease: HD today ,patient missed HD 2. Altered mental status, likely multifactorial, expect some improvement with HD 3 ESBL E. coli UTI started on meropenem 4. History of hypertension 5. History of prior CVA. 6. Anemia: Will order MAX Patient evaluated using audiovisual cart. Time spent 40-minute Consult Attestations 2 Medical Necessity Statement: Per medicine team Coding Level of Care Code Acute Code for Chg Fwd Diagnoses End stage renal disease on dialysis N18.6; Z99.2
[2023-12-27 17:30] LABS: ABG PCO2 45.5 mmHg (35-45); ABG PH Result 7.41 (7.35-7.45); Arterial Blood Gas Hematocrit 28.3 % (37-47); Base Excess ABG 3.5 mmol/L (-2.0-2.0); Blood Gas Allen Test Pos; Blood Gas Operator Identificat AMH; Blood Gas Sample Site Radial, left; Blood Gas Sample Type Arterial; Carboxyhemoglobin 1.5 %THgb (0.4-20.1); HCO3 ABG 28.6 mmol/L (22-26); HGB O2 Sat 97.6 % (95-100); Ionized Calcium Level - ABG 1.1 mmol/L (1.1-1.4); Methemoglobin 0.9 % (0.4-1.5); Oxygen Device NC; Oxygen Saturation ABG > 99.1; PO2 FiO2 Ratio Arterial Blood 535; Potassium Level - ABG 3.3 mmol/L (3.5-5.0); Total Hemoglobin 9.2 g/dL (12-16)
--- NOTE | 2023-12-27 18:55 | PC.NURSE ---
wound dressed according to order.
[2023-12-27 20:25] LABS: Glucose Point of Care 89 mg/dL (70-110)
[2023-12-28] VITALS (9 sets, daily range): BP systolic 111–167; BP diastolic 57–82; PULSE 83–100; RESP 16–19; TEMP 36.3–36.9; O2SAT 92–100; BMI 35.8
[2023-12-28] MEDS: pantoprazole DR 40 mg Tablet PO ×2 (00:32→20:17)
[2023-12-28] MEDS: gabapentin 100 mg Capsule PO ×4 (00:32→20:17)
[2023-12-28] MEDS: heparin, porcine 1,000 unit/mL INJ 10 mL 10000 UNIT INTRACATH (01:22)
[2023-12-28] MEDS: heparin 5,000 unit/mL INJ 1 mL 5000 UNIT SUBCUT ×2 (03:45→15:28)
[2023-12-28] MEDS: acetaminophen 500 mg Tablet PO (05:05)
[2023-12-28 05:17] LABS: Hematocrit 30.3 % (36-47); Lymphocytes # 0.4 10^3/uL (0.8-4.8); Mean Corpuscular HGB Conc 29.7 g/dL (30-55); Mean Corpuscular Hemoglobin 30.4 pg (27-33); Mean Corpuscular Volume 102.4 fl (85-98); Mean Platelet Volume 10.7 fL (7.4-10.4); Monocytes # 0.5 10^3/uL (0.2-0.9); Monocytes % 6.4 %; Neutrophils # 6.58 10^3/uL (1.8-7.7); Neutrophils % 88.2 %; Nucleated Red Blood Cells % 0 %; Platelet Count 239 10^3/cmm (157-399); Red Blood Count 2.96 10^6/uL (3.85-5.65); Red Cell Distribution Width 16.2 % (12.1-15.1); White Blood Count 7.46 10^3/uL (3.29-11.43)
[2023-12-28 05:37] LABS: Blood Urea Nitrogen 18 mg/dL (6-20); Calcium 8.4 mg/dL (8.5-10.5); Carbon Dioxide 28 mmol/L (22-29); Chloride 100 mmol/L (98-107); Creatinine Clr Calc Pharmacy 16.2831; Glomerular Filtration Rate 12.9 mL/min (90-130); Glucose 184 mg/dL (65-115); Osmolality Calculated 293 mOsm/kg (285-295); Sodium 138 mmol/L (136-145)
[2023-12-28 06:00] LABS: Anion Gap 13.9 (5-19); Potassium 3.9 mmol/L (3.5-5.1)
[2023-12-28 06:14] LABS: Hepatitis B Core AB, Total Non-Reactive (Nonreactive); Hepatitis B Surface AB 84.6 (11.5-1000); Hepatitis B Surface Antigen Non-Reactive (Nonreactive)
[2023-12-28] MEDS: morphine 4 mg/mL SDV 1 mL 1 MG IVP (07:47)
[2023-12-28] MEDS: metoprolol succinate ER (24 HR) 50 mg Tablet PO (08:13)
[2023-12-28] MEDS: levothyroxine 50 mcg Tablet PO (08:13)
[2023-12-28] MEDS: sennosides-docusate Tablet 1 TAB PO (08:14)
[2023-12-28] MEDS: amlodipine 5 mg Tablet 2.5 MG PO (08:14)
--- NOTE | 2023-12-28 09:17 | PC.CHAP ---
Pastoral Care Encounter/Spiritual Assessment Type of Contact [] Declined tag marker visit [] Patient/Family/Request visit [] Outpatient visit [] Follow-up visit [] Physician referral [] Code/Alert [] Routine visit [] Staff referral [] Actively dying [] Patient sleeping [] Family support [] [] Out of room [] Palliative care [] [] Receiving care in room [] Pre-surgical visit [] Trauma [] Long length of stay [] ICU visit [x] Other:Contact precautions. No visit. Relational/Emotional Strength [] Patient feels connected with others/family/visitors/staff [] Distress [] Loneliness/isolation [] Abandonment Spirituality of Patient [] Person of Sabina [] Attends Mormonism of their Sabina [] Believes in Prayer [] Reads Bible or Hindu materials [] There are Spiritual issues to be addressed Inside Sales Assistant Interventions [] Prayer [] Active listening [] Non-anxious presence [] Spiritual/emotional support [] Crisis/trauma care [] Spiritual counseling [] Bereavement support [] Provided bereavement packet [] Provided Bible/devotional materials [] Provided toy/stuffed animal, coloring book to patient or family member [] Provided Communion [] Anointing/[place] [] Salvation [] Completed spiritual assessment [] Other: Impact on Illness or Injury [] Angry [] Fearful [] Anxious [] Often cries [] Exhaustion [] Unable to work [] Unable to attend zoroastrianism [] Unable to walk/stand [] Unable to read [] Unable to drive [] Unable to eat/drink [] Unable to sleep [] Unable to be with family [] Patient intubated [] Other: Summary Time spent with patient
--- NOTE | 2023-12-28 11:46 | PM.PN ---
Subjective Subjective: This morning patient is awake and alert She is very pleasant during my evaluation I have consulted pharmacy to dose meropenem Awaiting care home placement, midline has been placed left arm Vitals/I&O/Wt Last Vital Signs Temp 98.4 F 12/28/23 08:59 Pulse 94 12/28/23 08:26 Resp 18 12/28/23 08:26 BP 131/82 12/28/23 08:10 Pulse Ox 99 12/28/23 08:59 O2 Del Method Nasal Cannula 12/28/23 08:26 O2 Flow Rate 2 12/28/23 08:26 12/27/23 12/28/23 12/28/23 22:59 06:59 14:59 Intake Total 0 / 0 120 / 120 Balance 0 / 0 120 / 120 Weight last 48 hrs Weight 83.234 kg Weight 85.003 kg Weight 79.379 kg Physical Exam Narrative: Patient is awake and alert Pleasant cooperative GCS 15 Euvolemic No active signs of stroke She seems euvolemic no active sign of congestive heart failure or hypervolemia I do not see any focal deficits Abdominal cellulitis seems to be getting better with granulation tissue, sacral area ulcer does not need any debridement as well Data 12/28/23 04:29 12/28/23 04:29 Micro: Microbiology 12/27/23 10:55 Urine Culture - Preliminary Urine,Clean Catch Gram Negative Rods A&P Assessment and plan (1) Insulin dependent type 2 diabetes mellitus: (2) End stage renal disease on dialysis: (3) Urinary tract infection: (4) History of infection due to ESBL Escherichia coli: (5) Seropositive rheumatoid arthritis: (6) Metabolic encephalopathy: Plan Metabolic encephalopathy related to UTI Continue meropenem She will need ertapenem 14-day treatment for ESBL Continue dialysis as per the schedule consulted nephro Patient is much better today, mentation has improved She is talking no signs of stroke I will keep her on insulin sliding scale Monitor her blood sugar closely She is normotensive and euvolemic Pleasant during my evaluation Full code Attestations Medical Necessity Statement*: Awaiting placement Diagnoses Insulin dependent type 2 diabetes mellitus E11.9; Z79.4 End stage renal disease on dialysis N18.6; Z99.2 Urinary tract infection N39.0 History of infection due to ESBL Escherichia coli Z86.19 Seropositive rheumatoid arthritis M05.9 Metabolic encephalopathy G93.41
[2023-12-28] MEDS: meropenem 500 mg SDV IVP ×2 (13:40→23:53)
[2023-12-28 16:37] LABS: Glucose Point of Care 158 mg/dL (70-110)
[2023-12-28 16:37] LABS: Glucose Point of Care 146 mg/dL (70-110)
[2023-12-28 17:32] LABS: C.Diff PCR (Lab) NEGATIVE (Negative)
[2023-12-28] MEDS: ropinirole 0.25 mg Tablet 0.5 MG PO (18:30)
--- NOTE | 2023-12-28 18:38 | PC.NURSE ---
midline dressing change started and pt stated, please no more tape, it hurts my skin. I educ her that we needed to apply at least the stat lock. pts midline dressing change done, stat lock applied and covered with only the webrill per pts request
[2023-12-28 20:41] LABS: Glucose Point of Care 172 mg/dL (70-110)
[2023-12-29] VITALS (8 sets, daily range): BP systolic 116–139; BP diastolic 67–85; PULSE 69–82; RESP 15–18; TEMP 36.3–36.7; O2SAT 94–100
[2023-12-29] MEDS: heparin 5,000 unit/mL INJ 1 mL 5000 UNIT SUBCUT ×2 (04:21→15:18)
[2023-12-29] MEDS: diphenhydrAMINE 25 mg Capsule PO (04:22)
[2023-12-29] MEDS: acetaminophen 500 mg Tablet PO (04:22)
--- NOTE | 2023-12-29 05:05 | PC.NURSE ---
This Nurse as well as Jahaira Cummings LPN was told in report from Freda URBINA the patient refused a covering on her midline in her Left upper arm during the dressing change on . This nurse assessed the patients midline to find it locked into place by a statlock with no transparent dressing overtop the site, with the netting around the patients arm holding the tubing in place. This nurse asked the patient why they refused the transparent dressing during the dressing change and the patient stated I didn't refuse anything, I would tell you if I didn't want something done.... I didn't want any more tape like what was placed on fistula from dialysis because it irritates my skin but I didn't refuse that dressing I educated the patient on the risks of infection with the midline not being covered and she understood and asked for dressing to be placed. This nurse cleaned the site with clorahexadine and alcohol thoroughly and placed a transparent dressing over the midline site as well as flushing to check patency, all done sterile. Patient tolerated well. Around 0330 Lab asked this nurse to draw blood from the midline for morning labs. This nurse went in and flushed the patients Line and it was leaking. After repositioning the patients arm and attempting to flush again the line continued to leak. This nurse preformed a sterile dressing change on the patients midline as well as advancing the catheter back in to the 1cm allison per records of insertion and the patients midline still leaked when flushed. The Catheter had had no complication prior to this incident. This nurse as well as Brie URBINA ( Charge Nurse) decided to pull the midline. Pressure was held until bleeding stopped and the line was charted out, pt tolerated well. This nurse as well as multiple other nurses attempted placement of a PIV and all attempts were unsuccessful. Lab attempted to draw labs as well and attempts were also unsuccessful.
[2023-12-29 06:18] LABS: Glucose Point of Care 105 mg/dL (70-110)
[2023-12-29] MEDS: gabapentin 100 mg Capsule PO ×3 (08:26→20:10)
[2023-12-29] MEDS: metoprolol succinate ER (24 HR) 50 mg Tablet PO (08:26)
[2023-12-29] MEDS: amlodipine 5 mg Tablet 2.5 MG PO (08:26)
[2023-12-29] MEDS: levothyroxine 50 mcg Tablet PO (08:26)
--- NOTE | 2023-12-29 09:50 | P.PN_ITS ---
Subjective 2 Subjective: Patient got infiltration of IV, midline removed We have to request another 1 before she gets discharged to a [facility] C. difficile panel negative Vitals/I&O/Wt Last Vital Signs Temp 97.8 F 12/29/23 08:27 Pulse 79 12/29/23 08:27 Resp 17 12/29/23 08:27 BP 127/80 12/29/23 08:27 Pulse Ox 100 12/29/23 08:27 O2 Del Method Nasal Cannula 12/29/23 08:27 O2 Flow Rate 1 12/29/23 08:27 12/28/23 12/29/23 12/29/23 22:59 06:59 14:59 Intake Total 720 / 1080 240 / 1320 Balance 720 / 1080 240 / 1320 Weight last 48 hrs Weight 82.418 kg Weight 83.234 kg Weight 85.003 kg Physical Exam 2 Narrative: Patient was able to answer simple question She was a bit groggy this morning She has not eaten breakfast, breakfast tray is at the bedside Euvolemic I do not see any focal deficit She is moving her extremities Able to answer simple question Currently on 1 L nasal cannula Hemodynamically stable Data 12/28/23 04:29 12/28/23 04:29 Micro: Microbiology 12/27/23 10:55 Urine Culture - Final Urine,Clean Catch Escherichia coli esbl A&P Assessment and plan (1) Insulin dependent type 2 diabetes mellitus: (2) End stage renal disease on dialysis: (3) Urinary tract infection: (4) History of infection due to ESBL Escherichia coli: (5) Seropositive rheumatoid arthritis: (6) Metabolic encephalopathy: Plan Metabolic encephalopathy related to UTI We have to get another midline, patient will need 14-day ertapenem outpatient Awaiting usp placement C. difficile panel is negative, Patient is afebrile, hemodynamically stable Tolerating diet Tuesday dialysis, Awaiting placement We have to get another midline Attestations 2 Medical Necessity Statement*: Awaiting placement Diagnoses Insulin dependent type 2 diabetes mellitus E11.9; Z79.4 End stage renal disease on dialysis N18.6; Z99.2 Urinary tract infection N39.0 History of infection due to ESBL Escherichia coli Z86.19 Seropositive rheumatoid arthritis M05.9 Metabolic encephalopathy G93.41
[2023-12-29 12:23] LABS: Glucose Point of Care 115 mg/dL (70-110)
--- NOTE | 2023-12-29 13:36 | P.PN_ITS ---
Subjective 2 Subjective: no new complaints Medications: Reviewed: Yes Vitals/I&O/Wt Last Vital Signs Temp 97.8 F 12/29/23 12:12 Pulse 69 12/29/23 12:12 Resp 15 12/29/23 12:12 BP 139/85 12/29/23 12:12 Pulse Ox 100 12/29/23 12:12 O2 Del Method Room Air 12/29/23 12:12 O2 Flow Rate 2 12/29/23 10:00 12/28/23 12/29/23 12/29/23 22:59 06:59 14:59 Intake Total 720 / 1080 240 / 1320 480 / 480 Balance 720 / 1080 240 / 1320 480 / 480 Weight last 48 hrs Weight 82.418 kg Weight 83.234 kg Weight 85.003 kg Physical Exam 2 Narrative: Patient awake , alert HEENT S1-S2 regular rate and rhythm the per report Lungs clear per report No pedal edema Data 12/28/23 04:29 12/28/23 04:29 Micro: Microbiology 12/27/23 10:55 Urine Culture - Final Urine,Clean Catch Escherichia coli esbl A&P Assessment and plan (1) End stage renal disease on dialysis: Plan 1. End-stage renal disease: HD today , 2. Altered mental status, likely multifactorial, expect some improvement with HD 3 ESBL E. coli UTI started on meropenem 4. History of hypertension 5. History of prior CVA. 6. Anemia: Will order MAX Patient evaluated using audiovisual cart. Time spent 40-minute Attestations 2 Medical Necessity Statement*: per medicine Coding Level of Care Code Acute Code for [facility] Fwd Diagnoses End stage renal disease on dialysis N18.6; Z99.2
[2023-12-29] MEDS: meropenem 500 mg SDV IVP (15:19)
[2023-12-29 16:27] LABS: Glucose Point of Care 219 mg/dL (70-110)
[2023-12-29] MEDS: heparin, porcine 1,000 unit/mL INJ 10 mL 1000 UNIT IV (18:20)
[2023-12-29] MEDS: heparin, porcine 1,000 unit/mL INJ 10 mL 10000 UNIT INTRACATH (18:20)
[2023-12-29] MEDS: ropinirole 0.25 mg Tablet 0.5 MG PO (20:10)
[2023-12-29] MEDS: pantoprazole DR 40 mg Tablet PO (20:10)
[2023-12-29 20:19] LABS: Basophils % 0.2 %; Hematocrit 30.7 % (36-47); Lymphocytes # 0.8 10^3/uL (0.8-4.8); Lymphocytes % 12.9 %; Mean Corpuscular Hemoglobin 30.9 pg (27-33); Mean Platelet Volume 10.5 fL (7.4-10.4); Monocytes # 0.3 10^3/uL (0.2-0.9); Monocytes % 5.8 %; Neutrophils # 4.69 10^3/uL (1.8-7.7); Neutrophils % 80.6 %; Nucleated Red Blood Cells % 0 %; Platelet Count 253 10^3/cmm (157-399); Red Blood Count 2.98 10^6/uL (3.85-5.65); Red Cell Distribution Width 16.6 % (12.1-15.1); White Blood Count 5.82 10^3/uL (3.29-11.43)
[2023-12-29 20:41] LABS: Anion Gap 17.7 (5-19); Blood Urea Nitrogen 20 mg/dL (6-20); Calcium 8.5 mg/dL (8.5-10.5); Carbon Dioxide 26 mmol/L (22-29); Chloride 95 mmol/L (98-107); Creatinine Clr Calc Pharmacy 15.1659; Glomerular Filtration Rate 12.2 mL/min (90-130); Glucose 160 mg/dL (65-115); Osmolality Calculated 286 mOsm/kg (285-295); Potassium 3.7 mmol/L (3.5-5.1); Sodium 135 mmol/L (136-145)
[2023-12-29 20:53] LABS: Glucose Point of Care 159 mg/dL (70-110)
[2023-12-29] MEDS: morphine 4 mg/mL SDV 1 mL 1 MG IVP (21:47)
[2023-12-30] VITALS (7 sets, daily range): BP systolic 94–155; BP diastolic 56–74; PULSE 82–87; RESP 15–17; TEMP 36.8; O2SAT 95–100
[2023-12-30] MEDS: meropenem 500 mg SDV IVP (02:53)
[2023-12-30] MEDS: heparin 5,000 unit/mL INJ 1 mL 5000 UNIT SUBCUT (02:53)
[2023-12-30] MEDS: morphine 4 mg/mL SDV 1 mL 1 MG IVP (04:11)
[2023-12-30 05:49] LABS: Blood Urea Nitrogen 15 mg/dL (6-20); Calcium 8.6 mg/dL (8.5-10.5); Carbon Dioxide 28 mmol/L (22-29); Chloride 97 mmol/L (98-107); Creatinine Clr Calc Pharmacy 16.3603; Glomerular Filtration Rate 12.9 mL/min (90-130); Glucose 136 mg/dL (65-115); Osmolality Calculated 281 mOsm/kg (285-295); Sodium 134 mmol/L (136-145)
[2023-12-30 06:38] LABS: Glucose Point of Care 94 mg/dL (70-110)
[2023-12-30] MEDS: amlodipine 5 mg Tablet 2.5 MG PO (08:16)
[2023-12-30] MEDS: metoprolol succinate ER (24 HR) 50 mg Tablet PO (08:16)
[2023-12-30] MEDS: levothyroxine 50 mcg Tablet PO (08:16)
[2023-12-30] MEDS: sennosides-docusate Tablet 1 TAB PO (08:16)
[2023-12-30] MEDS: gabapentin 100 mg Capsule PO (08:16)
--- NOTE | 2023-12-30 09:07 | P.DS_ITS ---
Discharge Providers Date of Admission: 12/27/23 15:24 Date of Discharge: December 30, 2023 Attending Provider at Admission: Jigar Flanagan MD Attending Provider at Discharge: Jigar Flanagan MD Primary Care Provider: Vivienne Schulz MD Diagnoses at Discharge Discharge Diagnosis (1) End stage renal disease on dialysis: Status: Acute Reason for Visit Reason for Visit: fall. weakness Hospital Course Hospital Course 58 YO female with multiple comorbid conditions such as restless leg syndrome, history of CVA, arthritis, end-stage renal disease, hypothyroidism, cognitive impairment, sacral area ulcer, abdominal wall cellulitis , presented to the hospital for chief complaint for worsening confusion at home. She has had multiple admissions in the past related to confusion, leg cramps, postdialysis complications. Her urine culture positive for E. coli ESBL, she was started on meropenem, midline was requested which got infiltrated, to avoid further infections we have decided to switch her to intramuscular ertapenem 10-day regimen and requested group home placement. Patient remained afebrile, no significant signs of sepsis, no leukocytosis. Blood cultures remain negative. Patient gets dialysis Tuesday. She is also taking Requip for her restless leg syndrome and carbidopa/levodopa for her tremors. Please note on previous admission she was given Cogentin for extraparametal symptoms. Her abdominal wall cellulitis seem to be improving we have been using topical bacitracin and Santyl daily dressing, for sacral area ulcer we have been using Hydrofera Blue offloading dressing. Her wounds were debrided 09/19/2023 by general surgery. Physical Exam Narrative: Patient was able to answer simple question She was a bit groggy this morning She has not eaten breakfast, breakfast tray is at the bedside Euvolemic I do not see any focal deficit She is moving her extremities Able to answer simple question Patient eating breakfast Currently on room air Discharge Data Studies Completed and Pending Completed Studies During Hospitalization Category Date Time Status CT head wo con* [id number] Stat Cat Scan 12/27/23 09:26 Completed XR chest 1V portable [id number] Stat Exams 12/27/23 09:26 Completed XR hip BI m 5V wo/w pel* [id number] Stat Exams 12/27/23 09:27 Completed Radiology Impressions Chest X-Ray 12/27/23 09:26 IMPRESSION: No acute findings. Head CT 12/27/23 09:26 IMPRESSION: 1. No acute intracranial hemorrhage or edema. 2. Remote large infarct in the RIGHT cerebrum with dystrophic calcifications. 3. Age-indeterminate bilateral nasal bone fractures. Patient's had multiple falls recently. Fractures were not definitely seen on the facial bone CT of 11/01/2013. Hip/Pelvis X-Ray 12/27/23 09:27 IMPRESSION: No acute findings. Laboratory Results WBC 5.82 10^3/uL (3.29-11.43) 12/29/23 17:00 RBC 2.98 10^6/uL (3.85-5.65) L 12/29/23 17:00 Hgb 9.20 g/dL (11.27-16.99) L 12/29/23 17:00 Hct 30.7 % (36-47) L 12/29/23 17:00 MCV 103.0 fl (85-98) H 12/29/23 17:00 MCH 30.9 pg (27-33) 12/29/23 17:00 MCHC 30.0 g/dL (30-55) 12/29/23 17:00 RDW 16.6 % (12.1-15.1) H 12/29/23 17:00 Plt Count 253 10^3/cmm (157-399) 12/29/23 17:00 MPV 10.5 fL (7.4-10.4) H 12/29/23 17:00 Neut % (Auto) 80.6 % 12/29/23 17:00 Lymph % (Auto) 12.9 % 12/29/23 17:00 Patrick % (Auto) 5.8 % 12/29/23 17:00 Eos % (Auto) 0.0 % 12/29/23 17:00 Baso % (Auto) 0.2 % 12/29/23 17:00 Neut # (Auto) 4.69 10^3/uL (1.8-7.7) 12/29/23 17:00 Lymph # (Auto) 0.8 10^3/uL (0.8-4.8) 12/29/23 17:00 Patrick # (Auto) 0.3 10^3/uL (0.2-0.9) 12/29/23 17:00 Eos # (Auto) 0.0 10^3/uL (0.0-0.8) 12/29/23 17:00 Baso # (Auto) 0.0 10^3/uL (0.0-0.1) 12/29/23 17:00 Nucleated RBC % (auto) 0 % 12/29/23 17:00 Nucleated RBCs # 0.0 /100WBC 12/29/23 17:00 Specimen Type Arterial 12/27/23 17:19 Sample Site Radial, left 12/27/23 17:19 ABG pH 7.41 (7.35-7.45) 12/27/23 17:19 ABG pCO2 45.5 mmHg (35-45) H 12/27/23 17:19 ABG pO2 150.0 mmHg (80.0-100.0) H 12/27/23 17:19 ABG PO2/FiO2 Ratio 535 12/27/23 17:19 ABG HCO3 28.6 mmol/L (22-26) H 12/27/23 17:19 ABG O2 Saturation > 99.1 12/27/23 17:19 ABG Base Excess 3.5 mmol/L (-2.0-2.0) H 12/27/23 17:19 Marquis Test Pos 12/27/23 17:19 A-a O2 Gradient Not Reportable 12/27/23 17:19 Hematocrit 28.3 % (37-47) L 12/27/23 17:19 Hgb O2 Saturation 97.6 % (95-100) 12/27/23 17:19 Carboxyhemoglobin 1.5 %THgb (0.4-20.1) 12/27/23 17:19 Methemoglobin 0.9 % (0.4-1.5) 12/27/23 17:19 Total Hemoglobin 9.2 g/dL (12-16) L 12/27/23 17:19 Sodium 135.0 mmol/L (131-143) 12/27/23 17:19 Potassium 3.3 mmol/L (3.5-5.0) L 12/27/23 17:19 Glucose 85.0 mg/dL (70-115) 12/27/23 17:19 Ionized Calcium 1.1 mmol/L (1.1-1.4) 12/27/23 17:19 O2 Delivery Device Nc 12/27/23 17:19 O2 Liters/Min 2.0 % 12/27/23 17:19 FiO2 28.0 % 12/27/23 17:19 Computer Builder ID Amh 12/27/23 17:19 Sodium 134 mmol/L (136-145) L 12/30/23 04:22 Potassium 4.0 mmol/L (3.5-5.1) 12/30/23 04:22 Chloride 97 mmol/L (98-107) L 12/30/23 04:22 Carbon Dioxide 28 mmol/L (22-29) 12/30/23 04:22 Anion Gap 13.0 (5-19) 12/30/23 04:22 BUN 15 mg/dL (6-20) 12/30/23 04:22 Creatinine 3.6 mg/dL (0.5-0.9) H 12/30/23 04:22 GFR Calculation 12.9 mL/min (90-130) L 12/30/23 04:22 Glucose 136 mg/dL (65-115) H 12/30/23 04:22 POC Glucose 94 mg/dL (70-110) 12/30/23 06:35 Calculated Osmolality 281 mOsm/kg (285-295) L 12/30/23 04:22 Lactic Acid 2.1 mmol/L (0.5-2.2) 12/27/23 10:43 Lactic Acid (Sepsis) 1.9 mmol/L (0.5-2.2) 12/27/23 14:40 Calcium 8.6 mg/dL (8.5-10.5) 12/30/23 04:22 Phosphorus 4.7 mg/dL (2.5-4.5) H 12/27/23 10:43 Magnesium 2.0 mg/dL (1.7-2.3) 12/28/23 04:29 Total Bilirubin 0.4 mg/dL (0.15-1.2) 12/27/23 10:43 AST 60 U/L (0-32) H 12/27/23 10:43 ALT 20 U/L (0-33) 12/27/23 10:43 Alkaline Phosphatase 112 U/L (35-105) H 12/27/23 10:43 C-Reactive Protein 139.3 mg/L (0.0-4.9) H 12/27/23 10:43 Total Protein 7.1 g/dL (6.6-8.7) 12/27/23 10:43 Albumin 3.1 g/dL (3.5-5.2) L 12/27/23 10:43 Globulin 4.0 g/dL (1.3-4.6) 12/27/23 10:43 Urine Color Yellow (Yellow) 12/27/23 10:55 Urine Appearance Cloudy (CLEAR) A 12/27/23 10:55 Urine pH 6.5 (5-7) 12/27/23 10:55 Ur Specific [place] 1.015 (1.005-1.030) 12/27/23 10:55 Urine Protein 2+ (Negative) H 12/27/23 10:55 Urine Glucose (UA) Norm (Normal) 12/27/23 10:55 Urine Ketones 1+ (Negative) H 12/27/23 10:55 Urine Blood 3+ (Negative) H 12/27/23 10:55 Urine Nitrate Negative (Negative) 12/27/23 10:55 Urine Bilirubin 1+ (Negative) H 12/27/23 10:55 Urine Urobilinogen Norm mg/dL (Negative) 12/27/23 10:55 Ur Leukocyte Esterase 2+ (Negative) H 12/27/23 10:55 Urine RBC 15-25 /hpf (0-2) H 12/27/23 10:55 Urine WBC Too numerous to cnt /hpf (0-5) H 12/27/23 10:55 Ur Squamous Epith Cells 10-15 /hpf (0-5) H 12/27/23 10:55 Ur Transition Epith Cell 0-4 /hpf 12/27/23 10:55 Amorphous Sediment Not Reportable 12/27/23 10:55 Urine Bacteria 2+ /hpf (NONE) H 12/27/23 10:55 Urine Mucus Trace /hpf 12/27/23 10:55 C. difficile (PCR) Negative (Negative) 12/28/23 16:15 Coronavirus (PCR) Negative (Negative) 12/27/23 10:30 Hep Bs Antigen Non-reactive (Nonreactive) 12/28/23 04:29 Hep Bs Antibody 84.6 (11.5-1000) 12/28/23 04:29 Hep B Core Total Ab Non-reactive (Nonreactive) 12/28/23 04:29 Influenza A (PCR) Negative (Negative) 12/27/23 10:30 Influenza Type B (PCR) Negative (Negative) 12/27/23 10:30 RSV (PCR) Negative (Negative) 12/27/23 10:30 Vitals Last Vital Signs Temp 98.3 F 12/30/23 08:02 Pulse 83 12/30/23 08:02 Resp 17 12/30/23 08:02 BP 155/67 12/30/23 08:02 Pulse Ox 100 12/30/23 08:02 O2 Del Method Room Air 12/30/23 08:02 O2 Flow Rate 2 12/29/23 20:12 Discharge Plan Discharge Patient Disposition: Xfer SNF Condition: Stable Prescriptions: New ertapenem 1 gram recon soln 1 g IM DAILY 10 Days Qty: 10 0RF Continued (DME) Dexcom G6 Electronic Gaming Device Supervisor Misc See Rx Instructions .Route Qty: 1 0RF Rx Instructions: Check BS continuously (DME) Dexcom G6 Sensor Device See Rx Instructions .Route Qty: 9 3RF Rx Instructions: Change every 10 days. gabapentin 100 mg capsule 100 mg PO TID Qty: 90 4RF (DME) Dexcom G6 Transmitter Device See Rx Instructions .Route Qty: 3 3RF Rx Instructions: Change every 90 days. Glucagon Emergency Kit (human) 1 mg recon soln 1 mg SUBCUT Q20M PRN (Reason: hypoglycemia) Qty: 1 3RF Rx Instructions: until target blood sugar attained amlodipine [Norvasc] 2.5 mg tablet 2.5 mg PO DAILY carbidopa-levodopa 25-100 mg tablet See Rx Instructions .ROUTE .COMPLEX Rx Instructions: TAKE 0.5 (1/2) TABLET BY MOUTH BEFORE DIALYSIS. Auryxia 210 mg iron tablet 630 mg PO TID@,, Rx Instructions: TAKE WITH MEALS ropinirole 0.5 mg tablet 0.5 mg PO QPM clopidogrel 75 mg tablet 75 mg PO DAILY Qty: 30 0RF escitalopram oxalate 20 mg tablet 20 mg PO DAILY rosuvastatin 20 mg tablet 20 mg PO BEDTIME RenaPlex-D 800 mcg-12.5 mg -2,000 unit tablet 1 tab PO DAILY metoprolol succinate 50 mg tablet extended release 24 hr 50 mg PO DAILY levothyroxine 50 mcg tablet 50 mcg PO DAILY cyclobenzaprine 10 mg tablet 10 mg PO Q8H PRN (Reason: MUSCLE SPASMS) Qty: 14 0RF ibuprofen [Advil Liqui-Gel] 200 mg Capsule 200 mg PO .Q4-6H PRN (Reason: Pain) diphenhydramine HCl [Benadryl] 25 mg Capsule 25 mg PO BID PRN (Reason: ALLERGIES) omeprazole 20 mg Capsule,Delayed Release(Dr/Ec) 20 mg PO BEDTIME Discontinued cefpodoxime 200 mg tablet 200 mg PO BID Qty: 14 0RF Rx Instructions: must administer with a meal/food Discharge Orders: Discharge Order (Routine); Ordered 12/30/23 Ordered By: Jigar Flanagan Referrals: [facility], [place] [Outside] Vivienne Schulz MD [Primary Care Provider] - Patient Instructions: Opioid Safety Discharge Attestations Time Spent in Discharge Care*: greater than 30 min Status at Discharge: Cognitive status at discharge: cognitively intact , Behavioral status at discharge: cooperative , Quality Metrics Clinical Quality Measures [ No reported AMI, CVA or VTE this stay] Coding Level of Care Code Acute Code for Chg Fwd Diagnoses End stage renal disease on dialysis N18.6; Z99.2
--- NOTE | 2023-12-30 11:09 | PC.SOCIAL ---
IMM Updated Updated pt on IMM. No questions voiced. Provided pt a copy. Initialed, dated, & timed a copy & placed in chart.
[2023-12-30 11:34] LABS: Glucose Point of Care 174 mg/dL (70-110)
[2023-12-30] MEDS: insulin lispro 100 unit/1 mL SUBCUT (11:49)
--- NOTE | 2023-12-30 13:08 | P.PN_ITS ---
Subjective 2 Subjective: no new complaints Medications: Reviewed: Yes Vitals/I&O/Wt Last Vital Signs Temp 98.2 F 12/30/23 15:06 Pulse 87 12/30/23 15:06 Resp 15 12/30/23 15:06 BP 147/67 12/30/23 15:06 Pulse Ox 100 12/30/23 15:06 O2 Del Method Nasal Cannula 12/30/23 11:06 O2 Flow Rate 1 12/30/23 11:06 12/30/23 12/30/23 12/30/23 06:59 14:59 22:59 Intake Total 480 / 1080 120 / 120 Balance 480 / 1080 120 / 120 Weight last 48 hrs Weight 85.729 kg Weight 82.418 kg Physical Exam 2 Narrative: Patient awake , alert HEENT S1-S2 regular rate and rhythm the per report Lungs clear per report No pedal edema Data 12/29/23 17:00 12/30/23 04:22 A&P Assessment and plan (1) End stage renal disease on dialysis: Plan 1. End-stage renal disease: HD tomorrow 2. Altered mental status, likely multifactorial, expect some improvement with HD 3 ESBL E. coli UTI started on meropenem 4. History of hypertension 5. History of prior CVA. 6. Anemia: Will order MAX Patient evaluated using audiovisual cart. Time spent 40-minute Attestations 2 Medical Necessity Statement*: per emdicine Coding Level of Care Code Acute Code for Chg Fwd Diagnoses End stage renal disease on dialysis N18.6; Z99.2
== END 2023-12-30 14:00 | disposition skilled nursing facility (03) ==
LOC: ER 12:08 → MEDSURG 16:10
PROVIDERS: Hospitalist; Admitting Provider Internal Medicine; Emergency Provider Emergency Medicine; PCP Internal Medicine; Visit Provider Internal Medicine
DX: E11.22 Type 2 diabetes mellitus with diabetic chronic kidney disease (principal); I12.9 Hypertensive chronic kidney disease with stage 1 through stage 4 chronic kidney disease, or unspecified chronic kidney disease; N18.6 End stage renal disease; Z99.2 Dependence on renal dialysis; N39.0 Urinary tract infection, site not specified; Z86.73 Personal history of transient ischemic attack (TIA), and cerebral infarction without residual deficits; D64.9 Anemia, unspecified; R41.82 Altered mental status, unspecified; G93.41 Metabolic encephalopathy; M05.9 Rheumatoid arthritis with rheumatoid factor, unspecified; Z86.19 Personal history of other infectious and parasitic diseases; Z79.4 Long term (current) use of insulin; E03.9 Hypothyroidism, unspecified; K21.9 Gastro-esophageal reflux disease without esophagitis; G25.81 Restless legs syndrome; M19.90 Unspecified osteoarthritis, unspecified site
CPT/HCPCS: 0241U; 36415; 36416; 36569; 36573; 36600; 70450; 71045; 73521; 73523; 80048; 80051; 80053; 81001; 82330; 82805; 82962; 83605; 83735; 84100; 85025; 86140; 86705; 86706; 87077; 87086; 87186; 87340; 87493; 96372; 96374; 96375; 97110; 97116; 97161; 99285; C1751; G0378; J1644; J1815; J2185; J2270; Q3014

== ENCOUNTER → 2024-01-30 10:56 | Outpatient (BNVA) | payer MEDICARE, MEDICAID, SELFPAY | PROVIDERS: PCP Internal Medicine; Visit Provider Internal Medicine Cardiovascular Disease | DX: R94.39 Abnormal result of other cardiovascular function study (principal); E11.59 Type 2 diabetes mellitus with other circulatory complications; E78.5 Hyperlipidemia, unspecified; M06.9 Rheumatoid arthritis, unspecified; I69.354 Hemiplegia and hemiparesis following cerebral infarction affecting left non-dominant side; I12.0 Hypertensive chronic kidney disease with stage 5 chronic kidney disease or end stage renal disease; E11.22 Type 2 diabetes mellitus with diabetic chronic kidney disease; N18.6 End stage renal disease; Z99.2 Dependence on renal dialysis | CPT/HCPCS: 99204 ==

== ENCOUNTER 2024-02-09 22:34 | Emergency (ER) | payer MEDICARE, MEDICAID, SELFPAY ==
[2024-02-09 22:35] VITALS: BP 155/78; PULSE 102; RESP 20; TEMP 37.1; O2SAT 93; BMI 35.2
[2024-02-10 00:05] LABS: Erythrocyte Sedimentation Rate 37 mm/hr (0-15)
[2024-02-10 00:06] LABS: Basophils % 0.4 %; Hematocrit 28.1 % (36-47); Lymphocytes # 0.5 10^3/uL (0.8-4.8); Lymphocytes % 9.7 %; Mean Corpuscular Hemoglobin 30.3 pg (27-33); Mean Corpuscular Volume 97.9 fl (85-98); Monocytes # 0.7 10^3/uL (0.2-0.9); Monocytes % 13.1 %; Neutrophils % 75.4 %; Nucleated Red Blood Cells % 0 %; Platelet Count 290 10^3/cmm (157-399); Red Blood Count 2.87 10^6/uL (3.85-5.65); Red Cell Distribution Width 18.1 % (12.1-15.1); White Blood Count 5.57 10^3/uL (3.29-11.43)
[2024-02-10 00:16] LABS: Alanine Aminotransferase < 5 U/L (0-33); Albumin Level 3.5 g/dL (3.5-5.2); Alkaline Phosphatase 107 U/L (35-105); Anion Gap 16.6 (5-19); Aspartate Amino Transferase 15 U/L (0-32); Blood Urea Nitrogen 11 mg/dL (6-20); C Reactive Protein 112.4 mg/L (0.0-4.9); Calcium 8.8 mg/dL (8.5-10.5); Carbon Dioxide 30 mmol/L (22-29); Chloride 93 mmol/L (98-107); Creatinine Clr Calc Pharmacy 26.0616; Globulin 3.1 g/dL (1.3-4.6); Glomerular Filtration Rate 22.8 mL/min (90-130); Glucose 160 mg/dL (65-115); Osmolality Calculated 285 mOsm/kg (285-295); Potassium 3.6 mmol/L (3.5-5.1); Sodium 136 mmol/L (136-145); Total Bilirubin 0.4 mg/dL (0.15-1.2); Total Protein 6.6 g/dL (6.6-8.7)
[2024-02-10 00:17] LABS: Lactic Sepsis W/Reflex 2.5 mmol/L (0.5-2.2)
[2024-02-10] MEDS: cefepime 1,000 mg SDV 1000 MG IV (00:30)
[2024-02-10] MEDS: linezolid premix 600 MG/300 ML PREMIX 300 MG IV (00:31)
--- NOTE | 2024-02-10 00:45 | CTR_ITS ---
PROCEDURE INFORMATION: Exam: CT Abdomen And Pelvis Without Contrast Exam date and time: 02/10/2024 12:47 AM Age: 58 years old Clinical indication: Other: Pannus lesions; Additional info: Lower abd pain + abdominal pannus lesions TECHNIQUE: Imaging protocol: Computed tomography of the abdomen and pelvis without contrast. Radiation optimization: All CT scans at this facility use at least one of these dose optimization techniques: automated exposure control; mA and/or kV adjustment per patient size (includes targeted exams where dose is matched to clinical indication); or iterative reconstruction. COMPARISON: CT abdomen pelvis wo con [id number] 09/16/2023 9:30 AM RADIATION DOSE METRICS: Total DLP (mGy-cm): 1087.63 FINDINGS: Limitations: The study is limited due to the lack of intravenous contrast. Lungs: Bibasilar atelectasis noted. Pleural spaces: Small left pleural effusion. Heart: There is mild cardiomegaly. Coronary arteries: There is atherosclerotic calcification coronary arteries. Liver: Normal. No mass. Gallbladder and biliary ducts: There has been cholecystectomy. Pancreas: Normal. No ductal dilation. Spleen: Normal. No splenomegaly. Adrenal glands: Normal. No mass. Kidneys and ureters: Normal. No hydronephrosis. Stomach and bowel: Unremarkable. No obstruction. No mucosal thickening. Appendix: No evidence of appendicitis. Intraperitoneal space: Unremarkable. No free air. No significant fluid collection. Vasculature: Extensive atherosclerotic calcification of the aorta and tributary arteries. Lymph nodes: Unremarkable. No enlarged lymph nodes. Urinary bladder: Unremarkable as visualized. Reproductive: Unremarkable as visualized. Bones/joints: Unremarkable. No acute fracture. Soft tissues: There is skin thickening and subcutaneous induration bilateral lower flanks at the level of the hips and upper thighs with similar appearance compared to the prior study possibly cellulitis. No abscess. There is also skin thickening and subcutaneous induration of the lower anterior abdominal wall without abscess. These findings are modestly progressed. Induration subcutaneous fat of the upper bilateral flanks similar to prior exam. No definite abscess. No soft tissue air or gas. Induration of the left posterior upper thigh subcutaneous tissues noted. CT/CT abdomen pelvis wo con [id number] IMPRESSION: 1. Findings suggesting multifocal cellulitis of the flanks and anterior abdominal wall without evidence of abscess. This is modestly progressed compared to the prior study. 2. No acute intra-abdominal findings. 3. Small left pleural effusion.
[2024-02-10 01:11] VITALS: RESP 16
[2024-02-10] MEDS: morphine 4 mg/mL SDV 1 mL IVP (01:11)
--- NOTE | 2024-02-10 01:13 | W.ED.SKABFB ---
Documented by User: ZUHAIR Cardona 02/10/24 16:59 HPI - Skin/Abscess/Foreign Bdy General: Chief complaint: Skin/Abscess/Foreign Body Stated complaint: Sores under Stomach Time Seen by Provider: 02/09/24 22:47 Source: patient Mode of arrival: ambulatory Limitations: no limitations History of Present Illness: Patient is a 58-year-old female who presents to the emergency department with lesions to her lower abdomen that have been developing over some time. She states that her sister is a nurse practitioner and told her to come to the emergency department for evaluation of potential abscesses. She is diabetic and has chronic kidney disease, denying fever, nausea or vomiting. She is noting pain in the abdomen as well as to the skin. She has applied Santyl ointment, no relief. She is reporting 10/10 pain at this time. MD complaint: rash, lesion and other (Abdominal pain) Onset (ago): week(s) Associated symptoms: Deny chills, fever(s), nausea or vomiting Related Data Home Medications Medication Instructions Recorded Confirmed carbidopa 25 mg-levodopa 100 mg See Rx Instructions .Route .COMPLEX 05/20/20 12/27/23 tablet ferric citrate 210 mg iron tablet 630 mg PO TID@08,12,20 05/20/20 12/27/23 (Auryxia) ropinirole 0.5 mg tablet 0.5 mg PO QPM 06/21/20 12/27/23 amlodipine 2.5 mg tablet (Norvasc) 2.5 mg PO DAILY 09/28/22 12/27/23 levothyroxine 50 mcg tablet 50 mcg PO DAILY 08/24/23 12/27/23 metoprolol succinate 50 mg 50 mg PO DAILY 08/24/23 12/27/23 tablet,extended release 24 hr diphenhydramine HCl 25 mg capsule 25 mg PO BID PRN ALLERGIES 09/16/23 12/27/23 (Benadryl) ibuprofen 200 mg capsule (Advil 200 mg PO .Q4-6H PRN Pain 09/16/23 12/27/23 Liqui-Gel) omeprazole 20 mg capsule,delayed 20 mg PO BEDTIME 09/16/23 12/27/23 release escitalopram oxalate 20 mg tablet 20 mg PO DAILY 11/02/23 12/27/23 rosuvastatin 20 mg tablet 20 mg PO BEDTIME 11/02/23 12/27/23 vit B,C-folic ac 800 mcg-zinc 12.5 1 tab PO DAILY 11/02/23 12/27/23 mg-selen-D3 2,000 unit-vit E tablet (RenaPlex-D) Previous Rx's Medication Instructions Recorded blood-glucose meter,continuous #1 ea 09/24/21 (Dexcom G6 Manager [employer]) blood-glucose sensor (Dexcom G6 #9 ea 09/24/21 Sensor device) clopidogrel 75 mg tablet 75 mg PO DAILY #30 tabs 11/27/21 blood-glucose transmitter (Dexcom #3 ea 12/24/21 G6 Transmitter device) glucagon 1 mg solution for 1 mg SUBCUT Q20M PRN hypoglycemia 12/24/21 injection (Glucagon Emergency Kit) #1 ea gabapentin 100 mg capsule 100 mg PO TID #90 caps 04/21/23 cyclobenzaprine 10 mg tablet 10 mg PO Q8H PRN MUSCLE SPASMS #14 09/04/23 tabs doxycycline monohydrate 100 mg 100 mg PO BID 10 days #20 caps 02/10/24 capsule fluconazole 100 mg tablet 100 mg PO BID 7 days #14 tabs 02/10/24 nystatin 100,000 unit/gram topical 1 applic topical TID 7 days #60 02/10/24 ointment grams Allergies Allergy/AdvReac Type Severity Reaction Status Date / Time acetaminophen Allergy Unknown ALGY-Hives Verified 01/30/24 11:09 codeine Allergy ALGY-Hives Verified 01/30/24 11:09 fentanyl Allergy ALGY-Hives Verified 01/30/24 11:09 hydrocodone Allergy ALGY-Hives Verified 01/30/24 11:09 influenza virus vaccine qs Allergy ALGY-Hives Verified 01/30/24 11:09 [id number](65 years up) [From Fluad Quad (65y up)(PF)] Iodinated Contrast Media Allergy ALGY-Anaphy Verified 01/30/24 11:09 laxis kiwi Allergy ALGY-Anaphy Verified 01/30/24 11:09 laxis lisinopril Allergy ADR-Cough Verified 01/30/24 11:09 NSAIDS (Non-Steroidal Allergy ALGY-Hives Verified 01/30/24 11:09 Anti-Inflamma oxycodone Allergy ALGY-Hives Verified 01/30/24 11:09 pineapple Allergy ALGY-Anaphy Verified 01/30/24 11:09 laxis promethazine Allergy Unknown Verified 01/30/24 11:09 strawberry Allergy ALGY-Anaphy Verified 01/30/24 11:09 laxis tramadol Allergy ALGY-Hives Verified 01/30/24 11:09 vaccine adjuvant emulsion Allergy ALGY-Hives Verified 01/30/24 11:09 MF59C.1 [From [employer] vascular solution (65y up)(PF)] Review of Systems General: Reports: 10 or more systems reviewed and unremarkable except in HPI and below Const: Denies: fever(s), chills, change in appetite, change in weight or diaphoresis ENMT: Denies: throat pain or hoarseness Card: Denies: chest pain, palpitations or lightheadedness Resp: Denies: dyspnea, productive cough or wheezing GI: Reports: abdominal pain; Denies: nausea, vomiting, diarrhea, constipation, bloating, change in stool character or hematochezia : Denies: flank pain, difficulty voiding, dysuria, urinary frequency or urinary urgency Musc: Denies: neck pain or back pain Skin/Breast: Reports: erythema, skin pain, skin tenderness, sores, new lesions, changing lesions and non-healing lesions; Denies: rash Neuro: Denies: headache(s) or dizziness PFS ED PFSH: Medical History Insulin dependent type 2 diabetes mellitus End stage renal disease on dialysis History of infection due to ESBL Escherichia coli Urinary tract infection Metabolic encephalopathy Sacral ulcer Cystitis Cellulitis Encephalopathy Akathisia PAPO (obstructive sleep apnea) UTI (urinary tract infection) Abdominal wall cellulitis Seropositive rheumatoid arthritis JENNIFER positive Sacral decubitus ulcer, stage III Cellulitis Cystitis Elevated troponin Hyperkalemia Hyponatremia Sacral decubitus ulcer Acute encephalopathy ESRD (end stage renal disease) Fracture of greater tuberosity of left humerus Fracture of humeral head, left, closed Stage III pressure ulcer of sacral region Decubitus ulcer of sacral region, unstageable Failure to thrive Weakness Toe fracture Contusion of right foot ESRD (end stage renal disease) Rash Left foot pain Long-term insulin use Diabetes type 2, uncontrolled Appetite loss MCI (mild cognitive impairment) Hypothyroidism COVID-19 Hypertension Anxiety ESRD (end stage renal disease) Diabetes Hyperlipidemia Chronic back pain De Quervain's tenosynovitis Surgical History Status post colonoscopy S/P dialysis catheter insertion Removed 07/14/20 S/P arteriovenous (AV) fistula creation History of temporal artery biopsy H/O dilation and curettage H/O section Hx of cholecystectomy History of appendectomy History of carpal tunnel repair H/O neck surgery fusion Family History Father Bleeding disorder Other Diabetes Heart disease Hyperlipidemia Hypertension Kidney problem Migraines Stroke Denies family history of Anesthesia complication Social History Smoking and tobacco/nicotine status: never used tobacco/nicotine Second hand smoke exposure: No Alcohol intake: never Substance/Drug Use: never Adopted: No Caregiver/support person: Yes Lives independently: Yes Household members: family Housing: House Marital status: Single Highest education level completed: High School Graduate service: No Current occupational status: disabled Current occupational exposures/hazards: No Pets and animals: Yes Pets & animals: dog(s) Sexually active: No Do you think of yourself as: Straight/Heterosexual Current gender identity: Female Sabina/Buddhism: Yazidi Special sabina needs: No Agree to transfusion: No Physical Exam Const: COMMON NORMALS: patient oriented x3, no limitations and alert GENERAL APPEARANCE: cooperative NUTRITIONAL APPEARANCE: obese morbidly obese OTHER: Very foul odor noted when entering the room HENMT: COMMON NORMALS: normocephalic and atraumatic HEAD & SCALP: normocephalic and atraumatic Eye: COMMON NORMALS: EOMs intact bilaterally and conjunctivae normal CONJUNCTIVA: Yes conjunctivae normal Resp: COMMON NORMALS: normal respiratory effort, No retractions, No use of accessory muscles and clear to auscultation bilaterally AUSCULTATION: clear to auscultation bilaterally Cardio: COMMON NORMALS: regular rhythm, S1 normal heart sound present and S2 normal heart sound present RATE: tachycardic RHYTHM: regular rhythm HEART SOUNDS: S1 normal heart sound present and S2 normal heart sound present GI: OTHER: Central obesity noted. Striate. There is tenderness to palpation of the bilateral lower quadrants. Pannus present, upon lifting this there are multiple scattered, erythematous sores with palpable areas of induration. Area appears macerated, no active bleeding or purulent drainage. Extremity: COMMON NORMALS: normal to inspection and full ROM Neuro: COMMON NORMALS: patient oriented x3, moves all extremities, no focal motor deficits and no sensory deficits noted SENSORIUM/ORIENTATION: Yes alert Skin: NARRATIVE SKIN EXAM: Extension of the sores and lesions to the groin region Course Vital Signs: Vital signs: Vital Signs Temperature 98.8 F 02/09/24 22:35 Pulse Rate 91 02/10/24 04:52 Respiratory Rate 16 02/10/24 01:11 Blood Pressure 145/91 02/10/24 04:52 Pulse Oximetry 91 02/10/24 04:52 MDM - Skin/Abscess/Foreign Bdy Lab Data 02/09/24 23:55 02/09/24 23:55 Radiology Impressions Abdomen/Pelvis CT 02/10/24 00:45 IMPRESSION: 1. Findings suggesting multifocal cellulitis of the flanks and anterior abdominal wall without evidence of abscess. This is modestly progressed compared to the prior study. 2. No acute intra-abdominal findings. 3. Small left pleural effusion. Laboratory Results WBC 5.57 10^3/uL (3.29-11.43) 02/09/24 23:55 RBC 2.87 10^6/uL (3.85-5.65) L 02/09/24 23:55 Hgb 8.70 g/dL (11.27-16.99) L 02/09/24 23:55 Hct 28.1 % (36-47) L 02/09/24 23:55 MCV 97.9 fl (85-98) 02/09/24 23:55 MCH 30.3 pg (27-33) 02/09/24 23:55 MCHC 31.0 g/dL (30-55) 02/09/24 23:55 RDW 18.1 % (12.1-15.1) H 02/09/24 23:55 Plt Count 290 10^3/cmm (157-399) 02/09/24 23:55 MPV 10.0 fL (7.4-10.4) 02/09/24 23:55 Neut % (Auto) 75.4 % 02/09/24 23:55 Lymph % (Auto) 9.7 % 10/31/24 23:55 Mclennan % (Auto) 13.1 % 02/09/24 23:55 Eos % (Auto) 0.0 % 02/09/24 23:55 Baso % (Auto) 0.4 % 02/09/24 23:55 Neut # (Auto) 4.20 10^3/uL (1.8-7.7) 02/09/24 23:55 Lymph # (Auto) 0.5 10^3/uL (0.8-4.8) L 02/09/24 23:55 Mclennan # (Auto) 0.7 10^3/uL (0.2-0.9) 02/09/24 23:55 Eos # (Auto) 0.0 10^3/uL (0.0-0.8) 02/09/24 23:55 Baso # (Auto) 0.0 10^3/uL (0.0-0.1) 02/09/24 23:55 Nucleated RBC % (auto) 0 % 02/09/24 23:55 Nucleated RBCs # 0.0 /100WBC 02/09/24 23:55 ESR 37 mm/hr (0-15) H 02/09/24 23:55 Sodium 136 mmol/L (136-145) 02/09/24 23:55 Potassium 3.6 mmol/L (3.5-5.1) 02/09/24 23:55 Chloride 93 mmol/L (98-107) L 02/09/24 23:55 Carbon Dioxide 30 mmol/L (22-29) H 02/09/24 23:55 Anion Gap 16.6 (5-19) 02/09/24 23:55 BUN 11 mg/dL (6-20) 02/09/24 23:55 Creatinine 2.2 mg/dL (0.5-0.9) H 02/09/24 23:55 GFR Calculation 22.8 mL/min (90-130) L 02/09/24 23:55 Glucose 160 mg/dL (65-115) H 02/09/24 23:55 Calculated Osmolality 285 mOsm/kg (285-295) 02/09/24 23:55 Lactic Acid 2.5 mmol/L (0.5-2.2) H 02/09/24 23:55 Lactic Acid (Sepsis) 1.8 mmol/L (0.5-2.2) 02/10/24 03:09 Calcium 8.8 mg/dL (8.5-10.5) 02/09/24 23:55 Total Bilirubin 0.4 mg/dL (0.15-1.2) 02/09/24 23:55 AST 15 U/L (0-32) 02/09/24 23:55 ALT < 5 U/L (0-33) 02/09/24 23:55 Alkaline Phosphatase 107 U/L (35-105) H 02/09/24 23:55 C-Reactive Protein 112.4 mg/L (0.0-4.9) H 02/09/24 23:55 Total Protein 6.6 g/dL (6.6-8.7) 02/09/24 23:55 Albumin 3.5 g/dL (3.5-5.2) 02/09/24 23:55 Globulin 3.1 g/dL (1.3-4.6) 02/09/24 23:55 All radiology interpretation(s) finalized by discharge Discharge Plan Discharge Patient Disposition: Home Clinical Impression: Cellulitis, Sherrill infection Condition: Stable Prescriptions: New fluconazole 100 mg tablet 100 mg PO BID 7 Days Qty: 14 0RF doxycycline monohydrate 100 mg capsule 100 mg PO BID 10 Days Qty: 20 0RF nystatin 100,000 unit/gram ointment 1 applic topical TID 7 Days Qty: 60 0RF No Action (DME) Dexcom G6 Manager [employer] Misc See Rx Instructions .Route Qty: 1 0RF Rx Instructions: Check BS continuously (DME) Dexcom G6 Sensor Device See Rx Instructions .Route Qty: 9 3RF Rx Instructions: Change every 10 days. gabapentin 100 mg capsule 100 mg PO TID Qty: 90 4RF (DME) Dexcom G6 Transmitter Device See Rx Instructions .Route Qty: 3 3RF Rx Instructions: Change every 90 days. Glucagon Emergency Kit (human) 1 mg recon soln 1 mg SUBCUT Q20M PRN (Reason: hypoglycemia) Qty: 1 3RF Rx Instructions: until target blood sugar attained amlodipine [Norvasc] 2.5 mg tablet 2.5 mg PO DAILY carbidopa-levodopa 25-100 mg tablet See Rx Instructions .ROUTE .COMPLEX Rx Instructions: TAKE 0.5 (1/2) TABLET BY MOUTH BEFORE DIALYSIS. Auryxia 210 mg iron tablet 630 mg PO TID@08,12,20 Rx Instructions: TAKE WITH MEALS ropinirole 0.5 mg tablet 0.5 mg PO QPM clopidogrel 75 mg tablet 75 mg PO DAILY Qty: 30 0RF escitalopram oxalate 20 mg tablet 20 mg PO DAILY rosuvastatin 20 mg tablet 20 mg PO BEDTIME RenaPlex-D 800 mcg-12.5 mg -2,000 unit tablet 1 tab PO DAILY metoprolol succinate 50 mg tablet extended release 24 hr 50 mg PO DAILY levothyroxine 50 mcg tablet 50 mcg PO DAILY cyclobenzaprine 10 mg tablet 10 mg PO Q8H PRN (Reason: MUSCLE SPASMS) Qty: 14 0RF ibuprofen [Advil Liqui-Gel] 200 mg Capsule 200 mg PO .Q4-6H PRN (Reason: Pain) diphenhydramine HCl [Benadryl] 25 mg Capsule 25 mg PO BID PRN (Reason: ALLERGIES) omeprazole 20 mg Capsule,Delayed Release(Dr/Ec) 20 mg PO BEDTIME Discharge Orders: Discharge ED (Routine); Ordered 02/10/24 Ordered By: Tiera Richardson Referrals: Vivienne Schulz MD [Primary Care Provider] - Discharge Diet: As Directed Discharge Activity: Increase activity as tolerated Patient Instructions: Cellulitis (ED), Skin Yeast Infection (ED), Opioid Safety, Pain Management Activity Restrictions/Additional Instructions: Thank you for choosing [facility] for your healthcare needs today. Please realize this is an emergency room and that we are providing you with a medical screening exam and this may not be complete and all inclusive of all the testing and or work up that you may need to determine your ailment or severity of your illness. You have been screened and evaluated and felt safe for discharge. Health conditions do change or evolve sometimes and as such it is important that you follow up with your Primary Doctor to be re checked, 3-5 days is a general good time frame for follow up. 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 Documented by User: Tiera Richardson MD 02/10/24 02:09 HPI - Skin/Abscess/Foreign Bdy General: Chief complaint: Skin/Abscess/Foreign Body Stated complaint: Sores under Stomach Time Seen by Provider: 02/09/24 22:47 Related Data Home Medications Medication Instructions Recorded Confirmed carbidopa 25 mg-levodopa 100 mg See Rx Instructions .Route .COMPLEX 05/20/20 12/27/23 tablet ferric citrate 210 mg iron tablet 630 mg PO TID@08,12,20 05/20/20 12/27/23 (Auryxia) ropinirole 0.5 mg tablet 0.5 mg PO QPM 06/21/20 12/27/23 amlodipine 2.5 mg tablet (Norvasc) 2.5 mg PO DAILY 09/28/22 12/27/23 levothyroxine 50 mcg tablet 50 mcg PO DAILY 08/24/23 12/27/23 metoprolol succinate 50 mg 50 mg PO DAILY 08/24/23 12/27/23 tablet,extended release 24 hr diphenhydramine HCl 25 mg capsule 25 mg PO BID PRN ALLERGIES 09/16/23 12/27/23 (Benadryl) ibuprofen 200 mg capsule (Advil 200 mg PO .Q4-6H PRN Pain 09/16/23 12/27/23 Liqui-Gel) omeprazole 20 mg capsule,delayed 20 mg PO BEDTIME 09/16/23 12/27/23 release escitalopram oxalate 20 mg tablet 20 mg PO DAILY 11/02/23 12/27/23 rosuvastatin 20 mg tablet 20 mg PO BEDTIME 11/02/23 12/27/23 vit B,C-folic ac 800 mcg-zinc 12.5 1 tab PO DAILY 11/02/23 12/27/23 mg-selen-D3 2,000 unit-vit E tablet (RenaPlex-D) Previous Rx's Medication Instructions Recorded blood-glucose meter,continuous #1 ea 09/24/21 (Dexcom G6 Manager [employer]) blood-glucose sensor (Dexcom G6 #9 ea 09/24/21 Sensor device) clopidogrel 75 mg tablet 75 mg PO DAILY #30 tabs 11/27/21 blood-glucose transmitter (Dexcom #3 ea 12/24/21 G6 Transmitter device) glucagon 1 mg solution for 1 mg SUBCUT Q20M PRN hypoglycemia 12/24/21 injection (Glucagon Emergency Kit) #1 ea gabapentin 100 mg capsule 100 mg PO TID #90 caps 04/21/23 cyclobenzaprine 10 mg tablet 10 mg PO Q8H PRN MUSCLE SPASMS #14 09/04/23 tabs doxycycline monohydrate 100 mg 100 mg PO BID 10 days #20 caps 02/10/24 capsule fluconazole 100 mg tablet 100 mg PO BID 7 days #14 tabs 02/10/24 nystatin 100,000 unit/gram topical 1 applic topical TID 7 days #60 02/10/24 ointment grams Allergies Allergy/AdvReac Type Severity Reaction Status Date / Time acetaminophen Allergy Unknown ALGY-Hives Verified 01/30/24 11:09 codeine Allergy ALGY-Hives Verified 01/30/24 11:09 fentanyl Allergy ALGY-Hives Verified 01/30/24 11:09 hydrocodone Allergy ALGY-Hives Verified 01/30/24 11:09 influenza virus vaccine qs Allergy ALGY-Hives Verified 01/30/24 11:09 (65 years up) [From [employer] vascular solution (65y up)(PF)] Iodinated Contrast Media Allergy ALGY-Anaphy Verified 01/30/24 11:09 laxis kiwi Allergy ALGY-Anaphy Verified 01/30/24 11:09 laxis lisinopril Allergy ADR-Cough Verified 01/30/24 11:09 NSAIDS (Non-Steroidal Allergy ALGY-Hives Verified 01/30/24 11:09 Anti-Inflamma oxycodone Allergy ALGY-Hives Verified 01/30/24 11:09 pineapple Allergy ALGY-Anaphy Verified 01/30/24 11:09 laxis promethazine Allergy Unknown Verified 01/30/24 11:09 strawberry Allergy ALGY-Anaphy Verified 01/30/24 11:09 laxis tramadol Allergy ALGY-Hives Verified 01/30/24 11:09 vaccine adjuvant emulsion Allergy ALGY-Hives Verified 01/30/24 11:09 MF59C.1 [From [employer] vascular solution (65y up)(PF)] PFSH ED PFSH: Medical History Insulin dependent type 2 diabetes mellitus End stage renal disease on dialysis History of infection due to ESBL Escherichia coli Urinary tract infection Metabolic encephalopathy Sacral ulcer Cystitis Cellulitis Encephalopathy Akathisia PAPO (obstructive sleep apnea) UTI (urinary tract infection) Abdominal wall cellulitis Seropositive rheumatoid arthritis JENNIFER positive Sacral decubitus ulcer, stage III Cellulitis Cystitis Elevated troponin Hyperkalemia Hyponatremia Sacral decubitus ulcer Acute encephalopathy ESRD (end stage renal disease) Fracture of greater tuberosity of left humerus Fracture of humeral head, left, closed Stage III pressure ulcer of sacral region Decubitus ulcer of sacral region, unstageable Failure to thrive Weakness Toe fracture Contusion of right foot ESRD (end stage renal disease) Rash Left foot pain Long-term insulin use Diabetes type 2, uncontrolled Appetite loss MCI (mild cognitive impairment) Hypothyroidism COVID-19 Hypertension Anxiety ESRD (end stage renal disease) Diabetes Hyperlipidemia Chronic back pain De Quervain's tenosynovitis Surgical History Status post colonoscopy S/P dialysis catheter insertion Removed 07/14/20 S/P arteriovenous (AV) fistula creation History of temporal artery biopsy H/O dilation and curettage H/O section Hx of cholecystectomy History of appendectomy History of carpal tunnel repair H/O neck surgery fusion Family History Father Bleeding disorder Other Diabetes Heart disease Hyperlipidemia Hypertension Kidney problem Migraines Stroke Denies family history of Anesthesia complication Social History Smoking and tobacco/nicotine status: never used tobacco/nicotine Second hand smoke exposure: No Alcohol intake: never Substance/Drug Use: never Adopted: No Caregiver/support person: Yes Lives independently: Yes Household members: family Housing: House Marital status: Single Highest education level completed: High School Graduate service: No Current occupational status: disabled Current occupational exposures/hazards: No Pets and animals: Yes Pets & animals: dog(s) Sexually active: No Do you think of yourself as: Straight/Heterosexual Current gender identity: Female Sabina/Buddhism: Yazidi Special sabina needs: No Agree to transfusion: No Course Vital Signs: Vital signs: Vital Signs Temperature 98.8 F 02/09/24 22:35 Pulse Rate 91 02/10/24 04:52 Respiratory Rate 16 02/10/24 01:11 Blood Pressure 145/91 02/10/24 04:52 Pulse Oximetry 91 02/10/24 04:52 MDM - Skin/Abscess/Foreign Bdy Medicial Decision Making Patient care was transitioned to la at shift change. Awaiting CT scan. CT does show cellulitis but no evidence of abscess. No other acute findings were found. Assessment and plan: Cellulitis Likely yeast infection as well. ?IV antibiotics and IV fluconazole here in the emergency room. - Discharged home - Discussed findings and plan with patient. Answered any questions. - All laboratory values were reviewed and interpreted personally by myself, the ER physician - All imaging was reviewed and interpreted personally by myself, the ER physician. - Evaluation and treatment of this problem were appropriate in the emergency setting Lab Data 02/09/24 23:55 02/09/24 23:55 Radiology Impressions Abdomen/Pelvis CT 02/10/24 00:45 IMPRESSION: 1. Findings suggesting multifocal cellulitis of the flanks and anterior abdominal wall without evidence of abscess. This is modestly progressed compared to the prior study. 2. No acute intra-abdominal findings. 3. Small left pleural effusion. Laboratory Results WBC 5.57 10^3/uL (3.29-11.43) 02/09/24 23:55 RBC 2.87 10^6/uL (3.85-5.65) L 02/09/24 23:55 Hgb 8.70 g/dL (11.27-16.99) L 02/09/24 23:55 Hct 28.1 % (36-47) L 02/09/24 23:55 MCV 97.9 fl (85-98) 02/09/24 23:55 MCH 30.3 pg (27-33) 02/09/24 23:55 MCHC 31.0 g/dL (30-55) 02/09/24 23:55 RDW 18.1 % (12.1-15.1) H 02/09/24 23:55 Plt Count 290 10^3/cmm (157-399) 02/09/24 23:55 MPV 10.0 fL (7.4-10.4) 02/09/24 23:55 Neut % (Auto) 75.4 % 02/09/24 23:55 Lymph % (Auto) 9.7 % 02/09/24 23:55 Mclennan % (Auto) 13.1 % 02/09/24 23:55 Eos % (Auto) 0.0 % 02/09/24 23:55 Baso % (Auto) 0.4 % 02/09/24 23:55 Neut # (Auto) 4.20 10^3/uL (1.8-7.7) 02/09/24 23:55 Lymph # (Auto) 0.5 10^3/uL (0.8-4.8) L 02/09/24 23:55 Mclennan # (Auto) 0.7 10^3/uL (0.2-0.9) 02/09/24 23:55 Eos # (Auto) 0.0 10^3/uL (0.0-0.8) 02/09/24 23:55 Baso # (Auto) 0.0 10^3/uL (0.0-0.1) 02/09/24 23:55 Nucleated RBC % (auto) 0 % 02/09/24 23:55 Nucleated RBCs # 0.0 /100WBC 02/09/24 23:55 ESR 37 mm/hr (0-15) H 02/09/24 23:55 Sodium 136 mmol/L (136-145) 02/09/24 23:55 Potassium 3.6 mmol/L (3.5-5.1) 02/09/24 23:55 Chloride 93 mmol/L (98-107) L 02/09/24 23:55 Carbon Dioxide 30 mmol/L (22-29) H 02/09/24 23:55 Anion Gap 16.6 (5-19) 02/09/24 23:55 BUN 11 mg/dL (6-20) 02/09/24 23:55 Creatinine 2.2 mg/dL (0.5-0.9) H 02/09/24 23:55 GFR Calculation 22.8 mL/min (90-130) L 02/09/24 23:55 Glucose 160 mg/dL (65-115) H 02/09/24 23:55 Calculated Osmolality 285 mOsm/kg (285-295) 02/09/24 23:55 Lactic Acid 2.5 mmol/L (0.5-2.2) H 02/09/24 23:55 Lactic Acid (Sepsis) 1.8 mmol/L (0.5-2.2) 02/10/24 03:09 Calcium 8.8 mg/dL (8.5-10.5) 02/09/24 23:55 Total Bilirubin 0.4 mg/dL (0.15-1.2) 02/09/24 23:55 AST 15 U/L (0-32) 02/09/24 23:55 ALT < 5 U/L (0-33) 02/09/24 23:55 Alkaline Phosphatase 107 U/L (35-105) H 02/09/24 23:55 C-Reactive Protein 112.4 mg/L (0.0-4.9) H 02/09/24 23:55 Total Protein 6.6 g/dL (6.6-8.7) 02/09/24 23:55 Albumin 3.5 g/dL (3.5-5.2) 02/09/24 23:55 Globulin 3.1 g/dL (1.3-4.6) 02/09/24 23:55 Discharge Plan Discharge Patient Disposition: Home Clinical Impression: Cellulitis, Sherrill infection Condition: Stable Prescriptions: New fluconazole 100 mg tablet 100 mg PO BID 7 Days Qty: 14 0RF doxycycline monohydrate 100 mg capsule 100 mg PO BID 10 Days Qty: 20 0RF nystatin 100,000 unit/gram ointment 1 applic topical TID 7 Days Qty: 60 0RF No Action (DME) Dexcom G6 Manager [employer] Misc See Rx Instructions .Route Qty: 1 0RF Rx Instructions: Check BS continuously (DME) Dexcom G6 Sensor Device See Rx Instructions .Route Qty: 9 3RF Rx Instructions: Change every 10 days. gabapentin 100 mg capsule 100 mg PO TID Qty: 90 4RF (DME) Dexcom G6 Transmitter Device See Rx Instructions .Route Qty: 3 3RF Rx Instructions: Change every 90 days. Glucagon Emergency Kit (human) 1 mg recon soln 1 mg SUBCUT Q20M PRN (Reason: hypoglycemia) Qty: 1 3RF Rx Instructions: until target blood sugar attained amlodipine [Norvasc] 2.5 mg tablet 2.5 mg PO DAILY carbidopa-levodopa 25-100 mg tablet See Rx Instructions .ROUTE .COMPLEX Rx Instructions: TAKE 0.5 (1/2) TABLET BY MOUTH BEFORE DIALYSIS. Auryxia 210 mg iron tablet 630 mg PO TID@08,12,20 Rx Instructions: TAKE WITH MEALS ropinirole 0.5 mg tablet 0.5 mg PO QPM clopidogrel 75 mg tablet 75 mg PO DAILY Qty: 30 0RF escitalopram oxalate 20 mg tablet 20 mg PO DAILY rosuvastatin 20 mg tablet 20 mg PO BEDTIME RenaPlex-D 800 mcg-12.5 mg -2,000 unit tablet 1 tab PO DAILY metoprolol succinate 50 mg tablet extended release 24 hr 50 mg PO DAILY levothyroxine 50 mcg tablet 50 mcg PO DAILY cyclobenzaprine 10 mg tablet 10 mg PO Q8H PRN (Reason: MUSCLE SPASMS) Qty: 14 0RF ibuprofen [Advil Liqui-Gel] 200 mg Capsule 200 mg PO .Q4-6H PRN (Reason: Pain) diphenhydramine HCl [Benadryl] 25 mg Capsule 25 mg PO BID PRN (Reason: ALLERGIES) omeprazole 20 mg Capsule,Delayed Release(Dr/Ec) 20 mg PO BEDTIME Discharge Orders: Discharge ED (Routine); Ordered 02/10/24 Ordered By: Tiera Richardson Referrals: Vivienne Schulz MD [Primary Care Provider] - Discharge Diet: As Directed Discharge Activity: Increase activity as tolerated Patient Instructions: Cellulitis (ED), Skin Yeast Infection (ED), Opioid Safety, Pain Management Activity Restrictions/Additional Instructions: Thank you for choosing [facility] for your healthcare needs today. Please realize this is an emergency room and that we are providing you with a medical screening exam and this may not be complete and all inclusive of all the testing and or work up that you may need to determine your ailment or severity of your illness. You have been screened and evaluated and felt safe for discharge. Health conditions do change or evolve sometimes and as such it is important that you follow up with your Primary Doctor to be re checked, 3-5 days is a general good time frame for follow up. You are always welcome to return to the ED for re assessment if your symptoms are worsening or you have new concerns Coding Level of Care Code ED Spouting Installer for Danial Barfield
[2024-02-10 01:45] LABS: Reflex Lactate Order REFLEX LACTIC ORDERD
[2024-02-10] MEDS: fluconazole premix 200 MG/100 ML PREMIX 100 MG IV (02:47)
[2024-02-10 02:57] VITALS: BP 148/76; PULSE 96; O2SAT 99
[2024-02-10 03:38] LABS: Lactic Acid level (Lactate) 1.8 mmol/L (0.5-2.2)
[2024-02-10 04:00] VITALS: BP 135/92; PULSE 92; O2SAT 96
[2024-02-10 04:52] VITALS: BP 145/91; PULSE 91; O2SAT 91
== END 2024-02-10 04:54 | disposition home or self-care (01) ==
PROVIDERS: Physician Assistant; Emergency Provider Emergency Medicine; PCP Internal Medicine
DX: L03.311 Cellulitis of abdominal wall (principal); B37.9 Candidiasis, unspecified; Z79.02 Long term (current) use of antithrombotics/antiplatelets; E11.22 Type 2 diabetes mellitus with diabetic chronic kidney disease; I12.0 Hypertensive chronic kidney disease with stage 5 chronic kidney disease or end stage renal disease; N18.6 End stage renal disease; Z99.2 Dependence on renal dialysis; Z79.4 Long term (current) use of insulin
CPT/HCPCS: 36415; 74176; 80053; 83605; 85025; 85651; 86140; 87040; 96365; 96366; 96367; 96375; 99285; J0692; J1450; J2020; J2270

== ENCOUNTER 2024-02-20 12:00 | Emergency (ER) | payer MEDICARE, MEDICAID, SELFPAY ==
[2024-02-20] VITALS (32 sets, daily range): BP systolic 103–117; BP diastolic 49–66; PULSE 91–100; RESP 17–18; TEMP 37; O2SAT 87–100; BMI 39.0
--- NOTE | 2024-02-20 12:05 | ECG_ITS ---
[employer] Test Date: 2024-02-20 Pat Name: Elvi Kaiser Department: Room: Gender: Female Customer Support Technician: : 1965 Requested By: Jd Morillo Order Number: [id number] Doug MD: Merced Woods M.D. Measurements Intervals [place] Rate: 99 P: 51 HI: 173 QRS: -44 QRSD: 139 T: 78 QT: 414 QTc: 534 Interpretive Statements SINUS RHYTHM LEFT AXIS DEVIATION [QRS AXIS < -30] RIGHT BUNDLE BRANCH BLOCK [120+ ms QRS DURATION, UPRIGHT V1, 40+ ms S IN I/aVL/V4/V5/V6] POSSIBLE ANTERIOR MYOCARDIAL INFARCTION , OF INDETERMINATE AGE [30 ms Q WAVE IN V3/V4, OR R < 0.2 mV IN V4] Compared to ECG 12/23/2023 15:04:05 Sinus tachycardia no longer present Myocardial infarct finding still present Electronically Signed On 02-23-2024 21:25:40 CRIMINAL LAWYER by Merced Woods M.D. [email or web address]
[2024-02-20 12:15] LABS: Basophils % 0.2 %; Hematocrit 28.6 % (36-47); Lymphocytes # 0.6 10^3/uL (0.8-4.8); Lymphocytes % 9.6 %; Mean Corpuscular HGB Conc 30.8 g/dL (30-55); Mean Corpuscular Volume 97.6 fl (85-98); Mean Platelet Volume 10.6 fL (7.4-10.4); Monocytes # 0.5 10^3/uL (0.2-0.9); Monocytes % 8.6 %; Neutrophils # 4.64 10^3/uL (1.8-7.7); Neutrophils % 81.4 %; Nucleated Red Blood Cells % 0 %; Platelet Count 243 10^3/cmm (157-399); Red Blood Count 2.93 10^6/uL (3.85-5.65); Red Cell Distribution Width 17.7 % (12.1-15.1)
--- NOTE | 2024-02-20 12:21 | W.ED.DIZZY ---
HPI - Dizziness General: Chief Complaint: Dizziness Stated Complaint: fall, dizziness Time Seen by Provider: 02/20/24 12:04 History of Present Illness: HPI Narrative: 58-year-old female presents emergency room after dizziness and falling backwards. Says she frequently falls she get dizzy and lightheaded she fell backwards hit her head. She is not currently on any anticoagulants. No loss conscious no vomiting Associated symptoms: Reports headache(s); Denies chest pain or chills Related Data Home Medications Medication Instructions Recorded Confirmed carbidopa 25 mg-levodopa 100 mg See Rx Instructions .Route .COMPLEX 05/20/20 02/20/24 tablet ferric citrate 210 mg iron tablet 630 mg PO TID@08,12,05/20/20 02/20/24 (Auryxia) amlodipine 2.5 mg tablet (Norvasc) 2.5 mg PO DAILY 09/28/22 02/20/24 levothyroxine 50 mcg tablet 50 mcg PO DAILY 08/24/23 02/20/24 metoprolol succinate 50 mg 50 mg PO DAILY 08/24/23 02/20/24 tablet,extended release 24 hr ibuprofen 200 mg capsule (Advil 200 mg PO .Q4-6H PRN Pain 09/16/23 02/20/24 Liqui-Gel) omeprazole 20 mg capsule,delayed 20 mg PO BEDTIME 09/16/23 02/20/24 release escitalopram oxalate 20 mg tablet 20 mg PO DAILY 11/02/23 02/20/24 rosuvastatin 20 mg tablet 20 mg PO BEDTIME 11/02/23 02/20/24 vit B,C-folic ac 800 mcg-zinc 12.5 1 tab PO DAILY 11/02/23 02/20/24 mg-selen-D3 2,000 unit-vit E tablet (RenaPlex-D) doxycycline monohydrate 100 mg 100 mg PO BID 02/20/24 02/20/24 capsule fluconazole 100 mg tablet 100 mg PO BID 02/20/24 02/20/24 nystatin 100,000 unit/gram topical 1 applic topical TID 02/20/24 02/20/24 ointment ropinirole 1 mg tablet 1 mg PO QPM 02/20/24 02/20/24 Previous Rx's Medication Instructions Recorded blood-glucose meter,continuous #1 ea 09/24/21 (PresentationTubecom G6 Dental Lab Technician) blood-glucose sensor (Dexcom G6 #9 ea 09/24/21 Sensor device) clopidogrel 75 mg tablet 75 mg PO DAILY #30 tabs 11/27/21 blood-glucose transmitter (Dexcom #3 ea 12/24/21 G6 Transmitter device) glucagon 1 mg solution for 1 mg SUBCUT Q20M PRN hypoglycemia 12/24/21 injection (Glucagon Emergency Kit) #1 ea gabapentin 100 mg capsule 100 mg PO TID #90 caps 04/21/23 cyclobenzaprine 10 mg tablet 10 mg PO Q8H PRN MUSCLE SPASMS #14 09/04/23 tabs Allergies Allergy/AdvReac Type Severity Reaction Status Date / Time acetaminophen Allergy Unknown ALGY-Hives Verified 01/30/24 11:09 codeine Allergy ALGY-Hives Verified 01/30/24 11:09 fentanyl Allergy ALGY-Hives Verified 01/30/24 11:09 hydrocodone Allergy ALGY-Hives Verified 01/30/24 11:09 influenza virus vaccine qs Allergy ALGY-Hives Verified 01/30/24 11:09 (65 years up) [From [employer] (65y up)(PF)] Iodinated Contrast Media Allergy ALGY-Anaphy Verified 01/30/24 11:09 laxis kiwi Allergy ALGY-Anaphy Verified 01/30/24 11:09 laxis lisinopril Allergy ADR-Cough Verified 01/30/24 11:09 NSAIDS (Non-Steroidal Allergy ALGY-Hives Verified 01/30/24 11:09 Anti-Inflamma oxycodone Allergy ALGY-Hives Verified 01/30/24 11:09 pineapple Allergy ALGY-Anaphy Verified 01/30/24 11:09 laxis promethazine Allergy Unknown Verified 01/30/24 11:09 strawberry Allergy ALGY-Anaphy Verified 01/30/24 11:09 laxis tramadol Allergy ALGY-Hives Verified 01/30/24 11:09 vaccine adjuvant emulsion Allergy ALGY-Hives Verified 01/30/24 11:09 [id number] [From [employer] (65y up)(PF)] Review of Systems Const: Denies: fever(s) or chills Card: Denies: chest pain Resp: Denies: dyspnea GI: Denies: abdominal pain : Denies: dysuria, urinary frequency or urinary urgency Musc: Denies: neck pain or back pain Skin/Breast: Denies: rash Neuro: Reports: headache(s) PFSH ED PFSH: Medical History Insulin dependent type 2 diabetes mellitus End stage renal disease on dialysis History of infection due to ESBL Escherichia coli Urinary tract infection Metabolic encephalopathy Sacral ulcer Cystitis Cellulitis Encephalopathy Akathisia PAPO (obstructive sleep apnea) UTI (urinary tract infection) Abdominal wall cellulitis Seropositive rheumatoid arthritis JENNIFER positive Sacral decubitus ulcer, stage III Cellulitis Cystitis Elevated troponin Hyperkalemia Hyponatremia Sacral decubitus ulcer Acute encephalopathy ESRD (end stage renal disease) Fracture of greater tuberosity of left humerus Fracture of humeral head, left, closed Stage III pressure ulcer of sacral region Decubitus ulcer of sacral region, unstageable Failure to thrive Weakness Toe fracture Contusion of right foot ESRD (end stage renal disease) Rash Left foot pain Long-term insulin use Diabetes type 2, uncontrolled Appetite loss MCI (mild cognitive impairment) Hypothyroidism COVID-19 Hypertension Anxiety ESRD (end stage renal disease) Diabetes Hyperlipidemia Chronic back pain De Quervain's tenosynovitis Surgical History Status post colonoscopy S/P dialysis catheter insertion Removed 07/14/20 S/P arteriovenous (AV) fistula creation History of temporal artery biopsy H/O dilation and curettage H/O section Hx of cholecystectomy History of appendectomy History of carpal tunnel repair H/O neck surgery fusion Family History Father Bleeding disorder Other Diabetes Heart disease Hyperlipidemia Hypertension Kidney problem Migraines Stroke Denies family history of Anesthesia complication Social History Smoking and tobacco/nicotine status: never used tobacco/nicotine Second hand smoke exposure: No Alcohol intake: never Substance/Drug Use: never Adopted: No Caregiver/support person: Yes Lives independently: Yes Household members: family Housing: House Marital status: Single Highest education level completed: High School Graduate service: No Current occupational status: disabled Current occupational exposures/hazards: No Pets and animals: Yes Pets & animals: dog(s) Sexually active: No Do you think of yourself as: Straight/Heterosexual Current gender identity: Female Sabina/Yazidism: Confucianist Special sabina needs: No Agree to transfusion: No Physical Exam Const: COMMON NORMALS: no acute distress GENERAL APPEARANCE: cooperative and comfortable ORIENTATION/CONSCIOUSNESS: Yes awake, Yes oriented to person, Yes oriented to place and Yes oriented to time HENMT: COMMON NORMALS: normocephalic, atraumatic and hearing grossly normal bilaterally HEAD & SCALP: normocephalic and atraumatic Resp: COMMON NORMALS: normal respiratory effort, No retractions, No use of accessory muscles and clear to auscultation bilaterally AUSCULTATION: clear to auscultation bilaterally Cardio: COMMON NORMALS: regular rate, regular rhythm and No murmurs present (Cardio) RATE: regular rate RHYTHM: regular rhythm GI: COMMON NORMALS: Soft to palpation and No hepatosplenomegaly present AUSCULTATION: Yes normoactive bowel sounds PALPATION: Yes Soft to palpation, No Tenderness to palpation present (GI), No Guarding due to palpation present (GI) and Yes No hepatosplenomegaly present Extremity: COMMON NORMALS: normal to inspection, capillary refill normal, no clubbing, cyanosis or edema, no calf tenderness and no pedal edema Neuro: SENSORIUM/ORIENTATION: Yes oriented to person, Yes oriented to place and Yes oriented to time Skin: COMMON NORMALS: no rashes or lesions noted GENERAL SKIN EXAM: no rashes or lesions noted Course Vital Signs: Vital signs: Vital Signs Temperature 98.6 F 02/20/24 12:03 Pulse Rate 91 02/20/24 16:30 Respiratory Rate 18 02/20/24 16:30 Blood Pressure 103/49 02/20/24 16:30 Pulse Oximetry 93 02/20/24 16:30 Oxygen Delivery Me thod Room Air 02/20/24 13:54 MDM - Dizziness Medical Decision Making CT of head and neck are negative. No injury. Patient is feeling well will discharge home to continue with plans previous prescribed medications. Return if has further problems. Lab Data 02/20/24 12:09 02/20/24 12:09 Radiology Impressions Cervical Spine CT 02/20/24 12:25 IMPRESSION: No acute cervical spine fracture. Stable anterior cervical fusion C5-C7. Head CT 02/20/24 12:26 IMPRESSION: 1. No acute intracranial hemorrhage or edema. 2. 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 Stable. 3. No skull fracture. Laboratory Results WBC 5.70 10^3/uL (3.29-11.43) 02/20/24 12:09 RBC 2.93 10^6/uL (3.85-5.65) L 02/20/24 12:09 Hgb 8.80 g/dL (11.27-16.99) L 02/20/24 12:09 Hct 28.6 % (36-47) L 02/20/24 12:09 MCV 97.6 fl (85-98) 02/20/24 12:09 MCH 30.0 pg (27-33) 02/20/24 12:09 MCHC 30.8 g/dL (30-55) 02/20/24 12:09 RDW 17.7 % (12.1-15.1) H 02/20/24 12:09 Plt Count 243 10^3/cmm (157-399) 02/20/24 12:09 MPV 10.6 fL (7.4-10.4) H 02/20/24 12:09 Neut % (Auto) 81.4 % 02/20/24 12:09 Lymph % (Auto) 9.6 % 02/20/24 12:09 Cottle % (Auto) 8.6 % 02/20/24 12:09 Eos % (Auto) 0.0 % 02/20/24 12:09 Baso % (Auto) 0.2 % 02/20/24 12:09 Neut # (Auto) 4.64 10^3/uL (1.8-7.7) 02/20/24 12:09 Lymph # (Auto) 0.6 10^3/uL (0.8-4.8) L 02/20/24 12:09 Cottle # (Auto) 0.5 10^3/uL (0.2-0.9) 02/20/24 12:09 Eos # (Auto) 0.0 10^3/uL (0.0-0.8) 02/20/24 12:09 Baso # (Auto) 0.0 10^3/uL (0.0-0.1) 02/20/24 12:09 Nucleated RBC % (auto) 0 % 02/20/24 12:09 Nucleated RBCs # 0.0 /100WBC 02/20/24 12:09 Sodium 129 mmol/L (136-145) L 02/20/24 12:09 Potassium 3.7 mmol/L (3.5-5.1) 02/20/24 12:09 Chloride 86 mmol/L (98-107) L 02/20/24 12:09 Carbon Dioxide 28 mmol/L (22-29) 02/20/24 12:09 Anion Gap 18.7 (5-19) 02/20/24 12:09 BUN 16 mg/dL (6-20) 02/20/24 12:09 Creatinine 3.5 mg/dL (0.5-0.9) H 02/20/24 12:09 GFR Calculation 13.4 mL/min (90-130) L 02/20/24 12:09 Glucose 114 mg/dL (65-115) 02/20/24 12:09 Calculated Osmolality 270 mOsm/kg (285-295) L 02/20/24 12:09 Calcium 9.0 mg/dL (8.5-10.5) 02/20/24 12:09 Total Bilirubin 0.4 mg/dL (0.15-1.2) 02/20/24 12:09 AST 18 U/L (0-32) 02/20/24 12:09 ALT < 5 U/L (0-33) 02/20/24 12:09 Alkaline Phosphatase 95 U/L (35-105) 02/20/24 12:09 Total Protein 6.9 g/dL (6.6-8.7) 02/20/24 12:09 Albumin 3.4 g/dL (3.5-5.2) L 02/20/24 12:09 Globulin 3.5 g/dL (1.3-4.6) 02/20/24 12:09 All radiology interpretation(s) finalized by discharge Discharge Plan Discharge Patient Disposition: Home Clinical Impression: Fall Condition: Stable Prescriptions: No Action (DME) Dexcom G6 Dental Lab Technician Misc See Rx Instructions .Route Qty: 1 0RF Rx Instructions: Check BS continuously (DME) Dexcom G6 Sensor Device See Rx Instructions .Route Qty: 9 3RF Rx Instructions: Change every 10 days. gabapentin 100 mg capsule 100 mg PO TID Qty: 90 4RF (DME) Dexcom G6 Transmitter Device See Rx Instructions .Route Qty: 3 3RF Rx Instructions: Change every 90 days. Glucagon Emergency Kit (human) 1 mg recon soln 1 mg SUBCUT Q20M PRN (Reason: hypoglycemia) Qty: 1 3RF Rx Instructions: until target blood sugar attained amlodipine [Norvasc] 2.5 mg tablet 2.5 mg PO DAILY carbidopa-levodopa 25-100 mg tablet See Rx Instructions .ROUTE .COMPLEX Rx Instructions: TAKE 0.5 (1/2) TABLET BY MOUTH BEFORE DIALYSIS. Auryxia 210 mg iron tablet 630 mg PO TID@08,12,20 Rx Instructions: TAKE WITH MEALS clopidogrel 75 mg tablet 75 mg PO DAILY Qty: 30 0RF escitalopram oxalate 20 mg tablet 20 mg PO DAILY rosuvastatin 20 mg tablet 20 mg PO BEDTIME RenaPlex-D 800 mcg-12.5 mg -2,000 unit tablet 1 tab PO DAILY metoprolol succinate 50 mg tablet extended release 24 hr 50 mg PO DAILY levothyroxine 50 mcg tablet 50 mcg PO DAILY cyclobenzaprine 10 mg tablet 10 mg PO Q8H PRN (Reason: MUSCLE SPASMS) Qty: 14 0RF ibuprofen [Advil Liqui-Gel] 200 mg Capsule 200 mg PO .Q4-6H PRN (Reason: Pain) omeprazole 20 mg Capsule,Delayed Release(Dr/Ec) 20 mg PO BEDTIME ropinirole 1 mg tablet 1 mg PO QPM fluconazole 100 mg tablet 100 mg PO BID nystatin 100,000 unit/gram ointment 1 applic TOPICAL TID doxycycline monohydrate 100 mg capsule 100 mg PO BID Discharge Orders: Discharge ED (Routine); Ordered 02/20/24 Ordered By: Jd Mejía Referrals: Vivienne Schulz MD [Primary Care Provider] - Patient Instructions: Opioid Safety, Pain Management Activity Restrictions/Additional Instructions: Thank you for choosing [facility] for your healthcare needs today. It is very important that you follow up as instructed or that you return to the Emergency Department should you have concerns or if your condition changes or worsens in any way. You are seen in the emergency room after a fall CT of the head and neck were normal. You are moderately anemic but at your usual baseline. Continue to follow-up with your primary care doctor and your track service worker as previously scheduled Coding Level of Care Code ED Pesticide Applicator for Danial Barfield
--- NOTE | 2024-02-20 12:25 | CT_ITS ---
WS: [id number] CT CERVICAL SPINE HISTORY: trauma TECHNIQUE: Contiguous 2.0 mm axial imaging performed through the entire cervical spine. Sagittal and coronal reformats also performed. All CT scans at [facility] use at least one of these dose o ptimization techniques: automated exposure control; mA and/or kV adjustment per patient size (include s targeted exams where dose is matched to clinical indication); or iterative reconstruction. DLP: 1386.31 mGy.cm COMPARISON: 08/24/2023 Straightening of the normal cervical lordosis. Anterior cervical fusion from C5-C7. No change in posi tion of the hardware. Degenerative disc disease and osteophytosis. No acute fracture. Facets are normally aligned. Cranioce rvical junction is normal. Lateral masses of C1 and C2 are aligned. Central and foraminal stenosis C4 -5, C5-6 and C6-7 particularly due to small osteophytes. Similar to the prior study. C2-C3: Normal. Normal soft tissues of the cervical change other than dense calcification in the carotid arteries. CT/CT cervical spin wo con* [id number] IMPRESSION: No acute cervical spine fracture. Stable anterior cervical fusion C5-C7.
--- NOTE | 2024-02-20 12:26 | CT_ITS ---
WS: [id number] CT HEAD NONCONTRAST HISTORY: trauma TECHNIQUE: Contiguous axial imaging performed through the brain. Bone and soft tissue windows. Sagitt al and coronal reformats reviewed. All CT scans at [facility] use at least one of these dose optimization techniques: automated exposure control; mA and/or kV adjustment per patient size (includ es targeted exams where dose is matched to clinical indication); or iterative reconstruction. DLP: 1386.31 mGy.cm COMPARISON: None available. Large remote infarct with encephalomalacia involving the RIGHT parieto-occipital lobes. Dystrophic ca lcifications throughout. Similar in appearance to the most recent study of 12/27/2023. Tiny lacunar in farct in the RIGHT thalamus. No acute infarct or edema. Mild atrophy and small vessel disease. Ventricles: Normal size ventricles. Mild ex vacuo dilatation occipital horn of the RIGHT lateral vent ricle due to the prior infarct. Paranasal sinuses: As visualized are clear. Mastoid air cells: Well pneumatized. Calvarium and scalp: Skull is intact with no soft tissue edema or swelling. CT/CT head wo con* [id number] IMPRESSION: 1. No acute intracranial hemorrhage or edema. 2. Large remote infarct with encephalomalacia involving the RIGHT parietal occ ipital region with dystrophic calcification. Stable. 3. No skull fracture.
[2024-02-20 12:30] LABS: Alanine Aminotransferase < 5 U/L (0-33); Albumin Level 3.4 g/dL (3.5-5.2); Alkaline Phosphatase 95 U/L (35-105); Aspartate Amino Transferase 18 U/L (0-32); Blood Urea Nitrogen 16 mg/dL (6-20); Carbon Dioxide 28 mmol/L (22-29); Chloride 86 mmol/L (98-107); Creatinine Clr Calc Pharmacy 17.3729; Globulin 3.5 g/dL (1.3-4.6); Glomerular Filtration Rate 13.4 mL/min (90-130); Glucose 114 mg/dL (65-115); Osmolality Calculated 270 mOsm/kg (285-295); Sodium 129 mmol/L (136-145); Total Bilirubin 0.4 mg/dL (0.15-1.2); Total Protein 6.9 g/dL (6.6-8.7)
[2024-02-20 12:32] LABS: Anion Gap 18.7 (5-19); Potassium 3.7 mmol/L (3.5-5.1)
== END 2024-02-20 16:32 | disposition home or self-care (01) ==
PROVIDERS: Emergency Provider Family Medicine; PCP Internal Medicine
DX: R42 Dizziness and giddiness (principal); W19.XXXA Unspecified fall, initial encounter; E11.22 Type 2 diabetes mellitus with diabetic chronic kidney disease; I12.0 Hypertensive chronic kidney disease with stage 5 chronic kidney disease or end stage renal disease; N18.6 End stage renal disease; Z99.2 Dependence on renal dialysis; E78.5 Hyperlipidemia, unspecified; Z79.02 Long term (current) use of antithrombotics/antiplatelets
CPT/HCPCS: 70450; 72125; 80053; 85025; 93005; 99284

== ENCOUNTER 2024-02-29 09:35 | Outpatient (CLI) | payer MEDICARE, MEDICAID, SELFPAY ==
--- NOTE | 2024-02-29 10:00 | USCV_ITS ---
Elvi Kaiser Age: 58 Gender: F : 1965 Exam Date: 02/29/2024 10:10 Ordering Phys: Merced Woods MD ([email or web address]) Technologist: CT Exam Location[place] [facility] [place] Indication: BP: 130 / 70 HR: 91 Rhythm: Sinus Technical Quality: Adequate MEASUREMENTS (Male / Female) Normal Values 2D ECHO LVOT Diameter 2.0 cm LV Ejection Fraction MOD 4C 43.1 % LV Ejection Fraction MOD 2C 46.6 % LV Ejection Fraction 2C AL 47.1 % LA Diameter 4.1 cm RA Systolic Volume 4C AL 50.0 ml RA Systolic Volume 4C MOD 48.3 ml LA Sys Volume AL 62.0 cm cubed LA Sys Volume Index AL 31.2 cm cubed/m squared Aorta at Sinotubular Diameter 2.0 cm IVC Diameter 1.8 cm M-MODE LA Ao Ratio MM 1.9 AV Cusp Separation MM 1.9 cm DOPPLER AV Peak Velocity 134.0 cm/s LVOT Peak Velocity 85.0 cm/s AV Area Cont Eq vti 2.3 cm squared AV Area Cont Eq pk 2.1 cm squared MV Peak Velocity 140.0 cm/s MV Area PHT 5.8 cm squared Mitral E to A Ratio 2.4 TV Peak Velocity 391.5 cm/s TR Peak Velocity 406.0 cm/s TR Peak Gradient 65.9 mmHg TR Mean Velocity 258.0 cm/s TR Mean Gradient 32.6 mmHg TR Velocity Time Integral 112.7 cm TV Peak E Velocity 91.0 cm/s Right Atrial Pressure 3.0 mmHg Pulmonary Artery Systolic Pressu 68.9 mmHg PV Peak Velocity 71.0 cm/s FINDINGS Left Ventricle Diffuse hypokinesia of the left ventricular with an ejection fraction of 45%.Grade III/IV diastolic dysfunction (restrictive filling pattern), severely elevated filling pressures. Right Ventricle Normal RV size with a slightly diminished ejection fraction Right Atrium Mildly increased right atrial size. Left Atrium Mildly increased left atrial size. Mitral Valve Mild mitral annular calcification. Aortic Valve Thickened aortic valve. Trace aortic valve regurgitation. Tricuspid Valve [id number] tricuspid valve regurgitation. Estimated pulmonary artery peak systolic pressure 69 mmHg Pulmonic Valve No gross abnormalities noted Pericardium Normal pericardium without effusion. Aorta Normal ascending aorta dimension. IVC Normal inferior vena cava. CONCLUSIONS Diffuse hypokinesia of the left ventricular with an ejection fraction of 45%.Grade III/IV diastolic dysfunction (restrictive filling pattern), severely elevated filling pressures. Mild biatrial enlargement. Normal RV size with a slightly diminished ejection fraction. Mild mitral annular calcification. Thickened aortic valve. Trace aortic valve regurgitation. Fpis-ji-gzhrylej tricuspid valve regurgitation. Estimated pulmonary artery peak systolic pressure 69 mmHg- moderate pulmonary hypertension There is no pericardial effusion. There are no intracardiac masses. Compared to the study from 09/16/2023, there may not be a significant change except for the mild biatrial enlargement Dr Merced Woods MD FACC (Electronically Signed) Final Date: 08 March 2024 09:34 S
== END 2024-02-29 09:36 | disposition home or self-care (01) ==
LOC: RAD 09:36
PROVIDERS: PCP Internal Medicine; Visit Provider Internal Medicine Cardiovascular Disease
DX: I50.30 Unspecified diastolic (congestive) heart failure (principal); I34.81 Nonrheumatic mitral (valve) annulus calcification; I35.0 Nonrheumatic aortic (valve) stenosis; I36.1 Nonrheumatic tricuspid (valve) insufficiency; R06.09 Other forms of dyspnea; I96 Gangrene, not elsewhere classified; L98.491 Non-pressure chronic ulcer of skin of other sites limited to breakdown of skin
CPT/HCPCS: 93306; 97597; 97598; 99204; 99213

== ENCOUNTER → 2024-03-07 08:19 | Outpatient (BNVA) | payer MEDICARE, MEDICAID, SELFPAY | PROVIDERS: PCP Internal Medicine; Visit Provider Thoracic Surgery (Cardiothoracic Vascular Surgery) | DX: I96 Gangrene, not elsewhere classified (principal); L98.491 Non-pressure chronic ulcer of skin of other sites limited to breakdown of skin | CPT/HCPCS: 97597 ==

== ENCOUNTER 2024-03-14 14:37 | Inpatient (IN) | payer OTHER, MEDICAID, SELFPAY ==
--- OUTSIDE RECORDS SUMMARY | 2024-03-14 14:40 | XMS_ITS ---
Author Name Unknown Organization [facility] ALLERGIES AND ADVERSE REACTIONS No information ASSESSMENT No information CHIEF COMPLAINT No information Vital Signs Bpsitting Date Temperature Weight Height Spo2 Respiration Bmi Fi eldcount Timerecorded Pulse 116/82 02/22 null 180,9.6 5,0 91 20 35.2 7 7 12:44:00 91 118/72 05/17 null 186,6.4 5,0 97 18 36.4 0 7 10:07:00 78 126/78 07/13 99.0 192,0 5,0 96 18 37.4 9 8 13:18:00 84 140/82 08/22 null 204,3.2 5,0 98 18 39.8 8 7 09:00:00 85 118/72 08/30 98.7 205,0 5,0 98 30 40.0 3 8 14:18:00 98 110/70 10/24 97.8 210,4 5,0 95 null 41.0 6 7 10:21:00 88 OBJECTIVE DATA No information PHYSICAL EXAMINATION No information TREATMENT PLAN No information PROBLEMS No information RESULTS No information REVIEW OF SYSTEMS No information SUBJECTIVE DATA No information MEDICATIONS No information
--- OUTSIDE RECORDS SUMMARY | 2024-03-14 14:40 | XMS_ITS ---
Author Name Unknown Organization Unknown ALLERGIES AND ADVERSE REACTIONS No information ASSESSMENT No information CHIEF COMPLAINT No information MEDICATIONS No information OBJECTIVE DATA No information PHYSICAL EXAMINATION No information TREATMENT PLAN Planned Care Start Date Provider Encounter for Check-up [id number] [facility] PROBLEMS No information RESULTS No information REVIEW OF SYSTEMS No information SUBJECTIVE DATA No information VITAL SIGNS No information
[2024-03-14 15:04] VITALS: BMI 38.7
--- NOTE | 2024-03-14 15:40 | PC.PHAR ---
patient is coming from home. No longer at [facility] or using [facility]. verified that with next of kin. called [facility] to verify all meds
[2024-03-14 16:11] VITALS: BP 112/61; PULSE 101; RESP 17; TEMP 36.4; O2SAT 95
[2024-03-14 16:31] LABS: Glucose Point of Care 127 mg/dL (70-110)
[2024-03-14 17:12] LABS: Basophils % 0.3 %; Hematocrit 28.9 % (36-47); Lymphocytes # 0.5 10^3/uL (0.8-4.8); Lymphocytes % 6.3 %; Mean Corpuscular HGB Conc 30.8 g/dL (30-55); Mean Corpuscular Hemoglobin 29.7 pg (27-33); Mean Corpuscular Volume 96.3 fl (85-98); Mean Platelet Volume 10.4 fL (7.4-10.4); Monocytes # 0.6 10^3/uL (0.2-0.9); Monocytes % 8.6 %; Neutrophils # 6.16 10^3/uL (1.8-7.7); Neutrophils % 84.5 %; Nucleated Red Blood Cells % 0 %; Platelet Count 243 10^3/cmm (157-399); Red Cell Distribution Width 17.4 % (12.1-15.1); White Blood Count 7.29 10^3/uL (3.29-11.43)
[2024-03-14 17:13] LABS: ABG PH Result 7.47 (7.35-7.45); Blood Gas Allen Test Pos; Blood Gas Sample Type Arterial; Carboxyhemoglobin 1.5 %THgb (0.4-20.1); HCO3 ABG 30.3 mmol/L (22-26); HGB O2 Sat 96.8 % (95-100); Ionized Calcium Level - ABG 1.2 mmol/L (1.1-1.4); Methemoglobin 1.1 % (0.4-1.5); Oxygen Saturation ABG > 99.1; Total Hemoglobin 9.1 g/dL (12-16)
[2024-03-14 17:14] LABS: Alveolar-Arterial Oxygen Gradi 3.2 mmHg (5-10); Blood Gas Operator Identificat MONRO; Blood Gas Sample Site Brachial, left; Oxygen Device NC; PO2 FiO2 Ratio Arterial Blood 432
--- NOTE | 2024-03-14 17:19 | P.HP_ITS ---
Providers/Chief Complaint 2 Admitting Physician: Basil Siddiqui MD Primary Care Provider: Vivienne Schulz MD Chief Complaint: Cellulitis History of Present Illness Eliv Kaiser is a 58 year old female with a past medical history of restless leg syndrome, history of CVA, thrombus, history of renal disease on dialysis, hypothyroidism, cognitive impairment, history of abdominal wall cellulitis, panniculitis, seen by wound care, receiving debridement, recently on Diflucan, has been on Bactrim after dialysis who presents to [facility] due to worsening area of cellulitis, erythema, panniculitis around pannus. Currently patient is alert to person, not to place, not to time she falls back asleep, she can follow commands she is able to smile for me, she is able to move both lower extremities, easily falls asleep, awakens to her name, but stays awake for a few seconds and falls asleep, pupils equal round reactive to light, blood sugar 126, I cannot discern any facial droop, she does say a few words she tells me she is okay I cannot discern any facial droop, blood pressure 112/61, pulse 101, respiratory 17 she is 97.5 on printer, 95% on room air, I asked respiratory therapy to do an ABG, her pH is 7.466, pCO2 42, pO2 121, sodium 131, potassium 3, on 2 L. Review of Systems 2 General: Reports: ROS unobtainable due to mental status Medications/Allergies Home Medications Medication Instructions Recorded Confirmed Last Taken Type carbidopa 25 mg-levodopa 100 mg 1 tab PO DAILY 05/20/20 03/14/24 02/20/24 History tablet ferric citrate 210 mg iron tablet 630 mg PO TID@08,12,05/20/20 03/14/24 02/20/24 History (Auryxia) blood-glucose meter,continuous #1 ea 09/24/21 03/14/24 Unknown Rx (Dexcom G6 Beam Builder) blood-glucose sensor (Dexcom G6 #9 ea 09/24/21 03/14/24 Unknown Rx Sensor device) clopidogrel 75 mg tablet 75 mg PO DAILY #30 tabs 11/27/21 03/14/24 02/20/24 Rx blood-glucose transmitter (Dexcom #3 ea 12/24/21 03/14/24 Unknown Rx G6 Transmitter device) gabapentin 100 mg capsule 100 mg PO TID #90 caps 04/21/23 03/14/24 12/26/23 Rx levothyroxine 50 mcg tablet 50 mcg PO DAILY 08/24/23 03/14/24 02/20/24 History cyclobenzaprine 10 mg tablet 10 mg PO Q8H PRN MUSCLE SPASMS #14 09/04/23 03/14/24 02/20/24 Rx tabs ibuprofen 200 mg capsule (Advil 200 mg PO .Q4-6H PRN Pain 09/16/23 03/14/24 Unknown History Liqui-Gel) omeprazole 20 mg capsule,delayed 10 mg PO BEDTIME 09/16/23 03/14/24 02/20/24 History release escitalopram oxalate 20 mg tablet 20 mg PO DAILY 11/02/23 03/14/24 02/20/24 History rosuvastatin 20 mg tablet 20 mg PO BEDTIME 11/02/23 03/14/24 02/19/24 History vit B,C-folic ac 800 mcg-zinc 12.5 1 tab PO DAILY 11/02/23 03/14/24 02/20/24 History mg-selen-D3 2,000 unit-vit E tablet (RenaPlex-D) nystatin 100,000 unit/gram topical 1 applic topical TID 02/20/24 03/14/24 Unknown History ointment sulfamethoxazole 800 1 tab PO .COMPLEX #7 tabs 03/07/24 03/14/24 Unknown Rx mg-trimethoprim 160 mg tablet (Bactrim DS) amlodipine 5 mg tablet 5 mg PO DAILY 03/14/24 03/14/24 Unknown History cetirizine 10 mg tablet 10 mg PO BID 03/14/24 03/14/24 Unknown History diphenhydramine HCl 25 mg tablet 25 mg PO BID PRN allergies 03/14/24 03/14/24 Unknown History metoprolol tartrate 50 mg tablet 50 mg PO DAILY 03/14/24 03/14/24 Unknown History ropinirole 0.5 mg tablet 0.5 mg PO QPM 03/14/24 03/14/24 Unknown History Allergies Allergy/AdvReac Type Severity Reaction Status Date / Time acetaminophen Allergy Unknown ALGY-Hives Verified 01/30/24 11:09 codeine Allergy ALGY-Hives Verified 01/30/24 11:09 fentanyl Allergy ALGY-Hives Verified 01/30/24 11:09 hydrocodone Allergy ALGY-Hives Verified 01/30/24 11:09 influenza virus vaccine qs Allergy ALGY-Hives Verified 01/30/24 11:09 (65 years up) [From [employer] (65y up)(PF)] Iodinated Contrast Media Allergy ALGY-Anaphy Verified 01/30/24 11:09 laxis kiwi Allergy ALGY-Anaphy Verified 01/30/24 11:09 laxis lisinopril Allergy ADR-Cough Verified 01/30/24 11:09 NSAIDS (Non-Steroidal Allergy ALGY-Hives Verified 01/30/24 11:09 Anti-Inflamma oxycodone Allergy ALGY-Hives Verified 01/30/24 11:09 pineapple Allergy ALGY-Anaphy Verified 01/30/24 11:09 laxis promethazine Allergy Unknown Verified 01/30/24 11:09 strawberry Allergy ALGY-Anaphy Verified 01/30/24 11:09 laxis tramadol Allergy ALGY-Hives Verified 01/30/24 11:09 vaccine adjuvant emulsion Allergy ALGY-Hives Verified 01/30/24 11:09 MF59C.1 [From [employer] (65y up)(PF)] PFSH Acute 2 PFSH: Medical History Insulin dependent type 2 diabetes mellitus End stage renal disease on dialysis History of infection due to ESBL Escherichia coli Urinary tract infection Metabolic encephalopathy Sacral ulcer Cystitis Cellulitis Encephalopathy Akathisia PAPO (obstructive sleep apnea) UTI (urinary tract infection) Abdominal wall cellulitis Seropositive rheumatoid arthritis JENNIFER positive Sacral decubitus ulcer, stage III Cellulitis Cystitis Elevated troponin Hyperkalemia Hyponatremia Sacral decubitus ulcer Acute encephalopathy ESRD (end stage renal disease) Fracture of greater tuberosity of left humerus Fracture of humeral head, left, closed Stage III pressure ulcer of sacral region Decubitus ulcer of sacral region, unstageable Failure to thrive Weakness Toe fracture Contusion of right foot ESRD (end stage renal disease) Rash Left foot pain Long-term insulin use Diabetes type 2, uncontrolled Appetite loss MCI (mild cognitive impairment) Hypothyroidism COVID-19 Hypertension Anxiety ESRD (end stage renal disease) Diabetes Hyperlipidemia Chronic back pain De Quervain's tenosynovitis Surgical History Status post colonoscopy S/P dialysis catheter insertion Removed 07/14/20 S/P arteriovenous (AV) fistula creation History of temporal artery biopsy H/O dilation and curettage H/O section Hx of cholecystectomy History of appendectomy History of carpal tunnel repair H/O neck surgery fusion Family History Father Bleeding disorder Other Diabetes Heart disease Hyperlipidemia Hypertension Kidney problem Migraines Stroke Denies family history of Anesthesia complication Social History Smoking and tobacco/nicotine status: never used tobacco/nicotine Second hand smoke exposure: No Alcohol intake: never Substance/Drug Use: never Adopted: No Caregiver/support person: Yes Lives independently: Yes Household members: family Housing: House Marital status: Single Highest education level completed: High School Graduate service: No Current occupational status: disabled Current occupational exposures/hazards: No Pets and animals: Yes Pets & animals: dog(s) Sexually active: No Do you think of yourself as: Straight/Heterosexual Current gender identity: Female Sabina/Worship: Hinduism Special sabina needs: No Agree to transfusion: No Vitals/I&O/Wt Last Vital Signs Temp 97.5 F L 03/14/24 16:11 Pulse 101 H 03/14/24 16:11 Resp 17 03/14/24 16:11 BP 112/61 03/14/24 16:11 Pulse Ox 95 03/14/24 16:11 O2 Del Method Room Air 03/14/24 16:11 Weight last 48 hrs Weight 90.01 kg Physical Exam 2 Const: COMMON NORMALS: no acute distress and patient oriented x3 O RIENTATION/CONSCIOUSNESS: Yes awake, Yes oriented to person and Yes confused Eye: COMMON NORMALS: Equal, round and reactive pupils present Neck/C-Spine: COMMON NORMALS: no JVD Resp: COMMON NORMALS: normal respiratory effort, No retractions, No use of accessory muscles and clear to auscultation bilaterally AUSCULTATION: clear to auscultation bilaterally Cardio: COMMON NORMALS: no JVD, regular rate, regular rhythm, S1 normal heart sound present and S2 normal heart sound present RATE: regular rate RHYTHM: regular rhythm HEART SOUNDS: S1 normal heart sound present and S2 normal heart sound present GI: COMMON NORMALS: Normal to inspection, nondistended, normoactive bowel sounds present, Soft to palpation and non-tender Extremity: COMMON NORMALS: no pedal edema Skin: NARRATIVE SKIN EXAM: Pannus, area of erythema, warmth, purulent drainage, foul-smelling purulent drainage, from iliac crest to iliac crest, irregular borders, Data 03/14/24 16:40 03/14/24 16:40 Micro: Microbiology 03/14/24 16:51 Blood Culture - Preliminary Blood SPECIMEN COLLECTED 03/14/24 16:46 Blood Culture - Preliminary Blood SPECIMEN COLLECTED A&P Assessment and plan (1) Altered mental status: (2) Abdominal wall cellulitis: (3) T2DM (type 2 diabetes mellitus): Qualifiers: Diabetes mellitus intermediate insulin use: without intermediate use Diabetes mellitus complication status: with circulatory complication Diabetes mellitus complication detail: with other circulatory complications Qualified Code(s): E 11.59 - Type 2 diabetes mellitus with other circulatory complications (4) Hyperlipidemia: (5) Dyslipidemia: (6) Benign essential HTN: Plan Altered mental status, metabolic and toxic encephalopathy -Etiology unclear -Blood sugar reasonable -Has a history of ESBL E. coli UTI -She has global encephalopathy, I cannot discern a facial droop no slurring of words, no focal weakness that I could discern but it is hard to do neurologic testing given her global encephalopathy -Will do a CT of her head -Urine cultures -Blood cultures -Follow CBC, CMP, troponin series, CRP, Pro-Ashkan -Urine toxicology screen -Start vancomycin -Start meropenem Abdominal wall cellulitis -Vancomycin -Meropenem -Keep area clean and dry -Nystatin powder -Has features that are like candidiasis, start IV Diflucan End-stage renal disease on dialysis, consult nephrology for dialysis, dialysis days Tuesday Acute on chronic anemia Type 2 diabetes mellitus, start low-dose sliding scale History of CHF, not in exacerbation, monitor Full code Lovenox for DVT prophylaxis Attestations 2 Medical Necessity Statement*: Patient requires hospitalization, inpatient, greater than 2 midnights, for altered mental status, abdominal wall cellulitis, Diagnoses Altered mental status R41.82 Abdominal wall cellulitis L03.311 Type 2 diabetes mellitus with other circulatory complication, without long-term current use of insulin E11.59 Diabetes mellitus marine oil terminal superintendent insulin use: without intermediate use Diabetes mellitus complication status: with circulatory complication Diabetes mellitus complication detail: with other circulatory complications Hyperlipidemia E78.5 Dyslipidemia E78.5 Benign essential HTN I10
[2024-03-14] MEDS: fluconazole premix 200 MG/100 ML PREMIX 100 MG IV (17:29)
[2024-03-14] MEDS: pantoprazole 40 mg SDV IVP (17:29)
[2024-03-14 17:35] LABS: INR 1.57 (0.8-1.2)
--- NOTE | 2024-03-14 17:36 | ECG_ITS ---
[facility] Test Date: 2024-03-14 Pat Name: Elvi Kaiser Department: Room: 256 Gender: Female Customer Acquisition Manager: : 1965 Requested By: Tay Townsend Order Number: [id number] Doug MD: Merced Woods M.D. Measurements Intervals [place] Rate: 93 P: 64 WA: 182 QRS: -43 QRSD: 143 T: 90 QT: 439 QTc: 547 Interpretive Statements SINUS RHYTHM LEFT AXIS DEVIATION [QRS AXIS < -30] RIGHT BUNDLE BRANCH BLOCK [120+ ms QRS DURATION, UPRIGHT V1, 40+ ms S IN I/aVL/V4/V5/V6] POSSIBLE ANTERIOR MYOCARDIAL INFARCTION , OF INDETERMINATE AGE [30 ms Q WAVE IN V3/V4, OR R < 0.2 mV IN V4]. diffuse nonspecific T wave changes. Compared to ECG 02/20/2024 12:07:44 No significant changes Electronically Signed On 03-14-2024 19:27:32 LINE CONSTRUCTION SUPERVISOR by Merced Woods M.D. [id number]
[2024-03-14 17:38] LABS: Lactic Sepsis W/Reflex 1.8 mmol/L (0.5-2.2)
[2024-03-14 18:04] LABS: Alanine Aminotransferase 6 U/L (0-33); Alkaline Phosphatase 93 U/L (35-105); Anion Gap 17.1 (5-19); Aspartate Amino Transferase 15 U/L (0-32); Blood Urea Nitrogen 14 mg/dL (6-20); Calcium 9.1 mg/dL (8.5-10.5); Carbon Dioxide 28 mmol/L (22-29); Chol HDL Ratio 2.28 mg/dL (0.0-4.40); Cholesterol 82 mg/dL (0-200); Globulin 3.3 g/dL (1.3-4.6); LDL HDL Ratio 0.92 RATIO (0.00-3.22); Magnesium 1.9 mg/dL (1.7-2.3); Phosphorus 3.7 mg/dL (2.5-4.5); Total Bilirubin 0.5 mg/dL (0.15-1.2); Triglycerides 66 mg/dL (0-150)
--- NOTE | 2024-03-14 18:04 | ED_ITS ---
HPI - Skin/Abscess/Foreign Bdy 2 History of Present Illness: Patient was not seen in the emergency department. Patient was a direct admit to the hospital. Related Data Home Medications Medication Instructions Recorded Confirmed carbidopa 25 mg-levodopa 100 mg 1 tab PO DAILY 05/20/20 03/14/24 tablet ferric citrate 210 mg iron tablet 630 mg PO TID@08,12,20 05/20/20 03/14/24 (Auryxia) levothyroxine 50 mcg tablet 50 mcg PO DAILY 08/24/23 03/14/24 ibuprofen 200 mg capsule (Advil 200 mg PO .Q4-6H PRN Pain 09/16/23 03/14/24 Liqui-Gel) omeprazole 20 mg capsule,delayed 10 mg PO BEDTIME 09/16/23 03/14/24 release escitalopram oxalate 20 mg tablet 20 mg PO DAILY 11/02/23 03/14/24 rosuvastatin 20 mg tablet 20 mg PO BEDTIME 11/02/23 03/14/24 vit B,C-folic ac 800 mcg-zinc 12.5 1 tab PO DAILY 11/02/23 03/14/24 mg-selen-D3 2,000 unit-vit E tablet (RenaPlex-D) nystatin 100,000 unit/gram topical 1 applic topical TID 02/20/24 03/14/24 ointment amlodipine 5 mg tablet 5 mg PO DAILY 03/14/24 03/14/24 cetirizine 10 mg tablet 10 mg PO BID 03/14/24 03/14/24 diphenhydramine HCl 25 mg tablet 25 mg PO BID PRN allergies 03/14/24 03/14/24 metoprolol tartrate 50 mg tablet 50 mg PO DAILY 03/14/24 03/14/24 ropinirole 0.5 mg tablet 0.5 mg PO QPM 03/14/24 03/14/24 Previous Rx's Medication Instructions Recorded blood-glucose meter,continuous #1 ea 09/24/21 (Dexcom G6 Manager Intranet) blood-glucose sensor (Dexcom G6 #9 ea 09/24/21 Sensor device) clopidogrel 75 mg tablet 75 mg PO DAILY #30 tabs 11/27/21 blood-glucose transmitter (Dexcom #3 ea 12/24/21 G6 Transmitter device) gabapentin 100 mg capsule 100 mg PO TID #90 caps 04/21/23 cyclobenzaprine 10 mg tablet 10 mg PO Q8H PRN MUSCLE SPASMS #14 09/04/23 tabs sulfamethoxazole 800 1 tab PO .COMPLEX #7 tabs 03/07/24 mg-trimethoprim 160 mg tablet (Bactrim DS) Allergies Allergy/AdvReac Type Severity Reaction Status Date / Time acetaminophen Allergy Unknown ALGY-Hives Verified 01/30/24 11:09 codeine Allergy ALGY-Hives Verified 01/30/24 11:09 fentanyl Allergy ALGY-Hives Verified 01/30/24 11:09 hydrocodone Allergy ALGY-Hives Verified 01/30/24 11:09 influenza virus vaccine qs Allergy ALGY-Hives Verified 01/30/24 11:09 (65 years up) [From [employer] (65y up)(PF)] Iodinated Contrast Media Allergy ALGY-Anaphy Verified 01/30/24 11:09 laxis kiwi Allergy ALGY-Anaphy Verified 01/30/24 11:09 laxis lisinopril Allergy ADR-Cough Verified 01/30/24 11:09 NSAIDS (Non-Steroidal Allergy ALGY-Hives Verified 01/30/24 11:09 Anti-Inflamma oxycodone Allergy ALGY-Hives Verified 01/30/24 11:09 pineapple Allergy ALGY-Anaphy Verified 01/30/24 11:09 laxis promethazine Allergy Unknown Verified 01/30/24 11:09 strawberry Allergy ALGY-Anaphy Verified 01/30/24 11:09 laxis tramadol Allergy ALGY-Hives Verified 01/30/24 11:09 vaccine adjuvant emulsion Allergy ALGY-Hives Verified 01/30/24 11:09 MF59C.1 [From [employer] (65y up)(PF)] PFSH ED 2 PFSH: Medical History Insulin dependent type 2 diabetes mellitus End stage renal disease on dialysis History of infection due to ESBL Escherichia coli Urinary tract infection Metabolic encephalopathy Sacral ulcer Cystitis Cellulitis Encephalopathy Akathisia PAPO (obstructive sleep apnea) UTI (urinary tract infection) Abdominal wall cellulitis Seropositive rheumatoid arthritis JENNIFER positive Sacral decubitus ulcer, stage III Cellulitis Cystitis Elevated troponin Hyperkalemia Hyponatremia Sacral decubitus ulcer Acute encephalopathy ESRD (end stage renal disease) Fracture of greater tuberosity of left humerus Fracture of humeral head, left, closed Stage III pressure ulcer of sacral region Decubitus ulcer of sacral region, unstageable Failure to thrive Weakness Toe fracture Contusion of right foot ESRD (end stage renal disease) Rash Left foot pain Long-term insulin use Diabetes type 2, uncontrolled Appetite loss MCI (mild cognitive impairment) Hypothyroidism COVID-19 Hypertension Anxiety ESRD (end stage renal disease) Diabetes Hyperlipidemia Chronic back pain De Quervain's tenosynovitis Surgical History Status post colonoscopy S/P dialysis catheter insertion Removed 07/14/20 S/P arteriovenous (AV) fistula creation History of temporal artery biopsy H/O dilation and curettage H/O section Hx of cholecystectomy History of appendectomy History of carpal tunnel repair H/O neck surgery fusion Family History Father Bleeding disorder Other Diabetes Heart disease Hyperlipidemia Hypertension Kidney problem Migraines Stroke Denies family history of Anesthesia complication Social History Smoking and tobacco/nicotine status: never used tobacco/nicotine Second hand smoke exposure: No Alcohol intake: never Substance/Drug Use: never Adopted: No Caregiver/support person: Yes Lives independently: Yes Household members: family Housing: House Marital status: Single Highest education level completed: High School Graduate service: No Current occupational status: disabled Current occupational exposures/hazards: No Pets and animals: Yes Pets & animals: dog(s) Sexually active: No Do you think of yourself as: Straight/Heterosexual Current gender identity: Female Sabina/Pentecostalism: Episcopal Special sabina needs: No Agree to transfusion: No Course 2 Vital Signs: Vital signs: Vital Signs Temperature 97.5 F L 03/14/24 16:11 Pulse Rate 101 H 03/14/24 16:11 Respiratory Rate 17 03/14/24 16:11 Blood Pressure 112/61 03/14/24 16:11 Pulse Oximetry 95 03/14/24 16:11 Oxygen Delivery Me thod Room Air 03/14/24 16:11 MDM - Skin/Abscess/Foreign Bdy Medicial Decision Making Patient was not seen in the emergency department. They were a direct admit to the hospital. Lab Data 03/14/24 16:40 03/14/24 16:40 Laboratory Results WBC 7.29 10^3/uL (3.29-11.43) 03/14/24 16:40 RBC 3.00 10^6/uL (3.85-5.65) L 03/14/24 16:40 Hgb 8.90 g/dL (11.27-16.99) L 03/14/24 16:40 Hct 28.9 % (36-47) L 03/14/24 16:40 MCV 96.3 fl (85-98) 03/14/24 16:40 MCH 29.7 pg (27-33) 03/14/24 16:40 MCHC 30.8 g/dL (30-55) 03/14/24 16:40 RDW 17.4 % (12.1-15.1) H 03/14/24 16:40 Plt Count 243 10^3/cmm (157-399) 03/14/24 16:40 MPV 10.4 fL (7.4-10.4) 03/14/24 16:40 Neut % (Auto) 84.5 % 03/14/24 16:40 Lymph % (Auto) 6.3 % 03/14/24 16:40 [place] % (Auto) 8.6 % 03/14/24 16:40 Eos % (Auto) 0.0 % 03/14/24 16:40 Baso % (Auto) 0.3 % 03/14/24 16:40 Neut # (Auto) 6.16 10^3/uL (1.8-7.7) 03/14/24 16:40 Lymph # (Auto) 0.5 10^3/uL (0.8-4.8) L 03/14/24 16:40 [place] # (Auto) 0.6 10^3/uL (0.2-0.9) 03/14/24 16:40 Eos # (Auto) 0.0 10^3/uL (0.0-0.8) 03/14/24 16:40 Baso # (Auto) 0.0 10^3/uL (0.0-0.1) 03/14/24 16:40 Nucleated RBC % (auto) 0 % 03/14/24 16:40 Nucleated RBCs # 0.0 /100WBC 03/14/24 16:40 PT 19.40 SECONDS (12.1-14.9) H 03/14/24 16:40 INR 1.57 (0.8-1.2) H 03/14/24 16:40 Specimen Type Arterial 03/14/24 17:03 Sample Site Brachial, left 03/14/24 17:03 ABG pH 7.47 (7.35-7.45) H 03/14/24 17:03 ABG pCO2 42.0 mmHg (35-45) 03/14/24 17:03 ABG pO2 121.0 mmHg (80.0-100.0) H 03/14/24 17:03 ABG PO2/FiO2 Ratio 432 03/14/24 17:03 ABG HCO3 30.3 mmol/L (22-26) H 03/14/24 17:03 ABG O2 Saturation > 99.1 03/14/24 17:03 ABG Base Excess 6.0 mmol/L (-2.0-2.0) H 03/14/24 17:03 Marquis Test Pos 03/14/24 17:03 A-a O2 Gradient 3.2 mmHg (5-10) L 03/14/24 17:03 Hematocrit 28.0 % (37-47) L 03/14/24 17:03 Hgb O2 Saturation 96.8 % (95-100) 03/14/24 17:03 Carboxyhemoglobin 1.5 %THgb (0.4-20.1) 03/14/24 17:03 Methemoglobin 1.1 % (0.4-1.5) 03/14/24 17:03 Total Hemoglobin 9.1 g/dL (12-16) L 03/14/24 17:03 Sodium 131.0 mmol/L (131-143) 03/14/24 17:03 Potassium 3.0 mmol/L (3.5-5.0) L 03/14/24 17:03 Glucose 126.0 mg/dL (70-115) H 03/14/24 17:03 Ionized Calcium 1.2 mmol/L (1.1-1.4) 03/14/24 17:03 O2 Delivery Device Nc 03/14/24 17:03 O2 Liters/Min 2.0 % 03/14/24 17:03 FiO2 28.0 % 03/14/24 17:03 Field Agronomist ID Shavon 03/14/24 17:03 Carbon Dioxide 28 mmol/L (22-29) 03/14/24 16:40 Anion Gap 17.1 (5-19) 03/14/24 16:40 BUN 14 mg/dL (6-20) 03/14/24 16:40 POC Glucose 127 mg/dL (70-110) H 03/14/24 16:23 Lactic Acid 1.8 mmol/L (0.5-2.2) 03/14/24 16:40 Calcium 9.1 mg/dL (8.5-10.5) 03/14/24 16:40 Phosphorus 3.7 mg/dL (2.5-4.5) 03/14/24 16:40 Magnesium 1.9 mg/dL (1.7-2.3) 03/14/24 16:40 Total Bilirubin 0.5 mg/dL (0.15-1.2) 03/14/24 16:40 AST 15 U/L (0-32) 03/14/24 16:40 ALT 6 U/L (0-33) 03/14/24 16:40 Alkaline Phosphatase 93 U/L (35-105) 03/14/24 16:40 Globulin 3.3 g/dL (1.3-4.6) 03/14/24 16:40 Triglycerides 66 mg/dL (0-150) 03/14/24 16:40 Cholesterol 82 mg/dL (0-200) 03/14/24 16:40 LDL/HDL Ratio 0.92 RATIO (0.00-3.22) 03/14/24 16:40 Cholesterol/HDL Ratio 2.28 mg/dL (0.0-4.40) 03/14/24 16:40 Procalcitonin 0.99 ng/mL (0-0.5) H 03/14/24 16:40 TSH 4.30 uIU/mL (0.27-4.20) H 03/14/24 16:40 No radiology studies performed this visit Discharge Plan Discharge Condition: Stable Prescriptions: No Action (DME) Dexcom G6 Manager Intranet Misc See Rx Instructions .Route Qty: 1 0RF Rx Instructions: Check BS continuously (DME) Dexcom G6 Sensor Device See Rx Instructions .Route Qty: 9 3RF Rx Instructions: Change every 10 days. gabapentin 100 mg capsule 100 mg PO TID Qty: 90 4RF (DME) Dexcom G6 Transmitter Device See Rx Instructions .Route Qty: 3 3RF Rx Instructions: Change every 90 days. sulfamethoxazole-trimethoprim [Bactrim DS] 800-160 mg tablet 1 tab PO .COMPLEX Qty: 7 0RF Rx Instructions: 1 tab orally after each dialysis session; carbidopa-levodopa 25-100 mg tablet 1 tab PO DAILY Rx Instructions: TAKE 0.5 (1/2) TABLET BY MOUTH BEFORE DIALYSIS. Auryxia 210 mg iron tablet 630 mg PO TID@08,12,20 Rx Instructions: TAKE WITH MEALS clopidogrel 75 mg tablet 75 mg PO DAILY Qty: 30 0RF escitalopram oxalate 20 mg tablet 20 mg PO DAILY rosuvastatin 20 mg tablet 20 mg PO BEDTIME RenaPlex-D 800 mcg-12.5 mg -2,000 unit tablet 1 tab PO DAILY cetirizine 10 mg Tablet 10 mg PO BID amlodipine 5 mg Tablet 5 mg PO DAILY ropinirole 0.5 mg Tablet 0.5 mg PO QPM diphenhydramine HCl 25 mg Tablet 25 mg PO BID PRN (Reason: allergies) metoprolol tartrate 50 mg Tablet 50 mg PO DAILY levothyroxine 50 mcg tablet 50 mcg PO DAILY cyclobenzaprine 10 mg tablet 10 mg PO Q8H PRN (Reason: MUSCLE SPASMS) Qty: 14 0RF ibuprofen [Advil Liqui-Gel] 200 mg Capsule 200 mg PO .Q4-6H PRN (Reason: Pain) omeprazole 20 mg Capsule,Delayed Release(Dr/Ec) 10 mg PO BEDTIME nystatin 100,000 unit/gram ointment 1 applic TOPICAL TID Referrals: Vivienne Schulz MD [Primary Care Provider] - Patient Instructions: Opioid Safety Coding Level of Care Code ED Woven Label Designer for Danial Barfield
[2024-03-14 18:05] VITALS: O2SAT 99
[2024-03-14 18:06] VITALS: PULSE 93; O2SAT 99
[2024-03-14 18:15] LABS: Troponin(5th) Baseline 67 ng/L (0-10)
[2024-03-14 18:19] LABS: Alcohol Level < 10 mg/dL (0-10); Chloride 89 mmol/L (98-107); Creatinine Clr Calc Pharmacy 20.8739; Glomerular Filtration Rate 16.6 mL/min (90-130); Glucose 121 mg/dL (65-115); Osmolality Calculated 274 mOsm/kg (285-295); Potassium 3.1 mmol/L (3.5-5.1); Sodium 131 mmol/L (136-145)
[2024-03-14 18:20] LABS: C Reactive Protein 208.9 mg/L (0.0-4.9)
[2024-03-14 18:21] LABS: Albumin Level 2.8 g/dL (3.5-5.2); HDL Cholesterol 36 mg/dL (60-100); LDL Cholesterol Calculated 33 mg/dL (50-129); Procalcitonin 0.99 ng/mL (0-0.5); Total Protein 6.1 g/dL (6.6-8.7)
[2024-03-14 18:23] LABS: NT Pro B Type Natriuretic Pept 53533 pg/mL (0-125)
[2024-03-14] MEDS: enoxaparin 30 mg/0.3 mL Syringe SUBCUT (18:56)
--- NOTE | 2024-03-14 19:17 | ECG_ITS ---
[facility] Test Date: 2024-03-14 Pat Name: Elvi Kaiser Department: Room: 256 Gender: Female Pill Packer: : 1965 Requested By: Tay Townsend Order Number: [id number] Doug MD: Stoney Montoya M.D. Measurements Intervals [place] Rate: 97 P: 90 UT: 178 QRS: -45 QRSD: 137 T: 68 QT: 417 QTc: 530 Interpretive Statements SINUS RHYTHM RIGHT BUNDLE BRANCH BLOCK [120+ ms QRS DURATION, UPRIGHT V1, 40+ ms S IN I/aVL/V4/V5/V6] LEFT ANTERIOR FASCICULAR BLOCK [QRS AXIS <= -45, QR IN I, RS IN II] POSSIBLE ANTERIOR MYOCARDIAL INFARCTION , OF INDETERMINATE AGE [30 ms Q WAVE IN V3/V4, OR R < 0.2 mV IN V4] Compared to ECG 03/14/2024 17:36:28 Left anterior fascicular block now present Left-axis deviation no longer present T-wave abnormality no longer present Myocardial infarct finding still present Electronically Signed On 03-15-2024 14:49:56 BODY SHOP MECHANIC by Stoney Montoya M.D. [id number]
[2024-03-14 19:48] LABS: Estmated Average Glucose 108; Hemoglobin A1C 5.4 % (4.0-6.0)
[2024-03-14] MEDS: meropenem 500 mg SDV IVP (19:49)
[2024-03-14] MEDS: VANCOMYCIN ADD-Vantage 1,000 MG in 0.9% NaCl ADD-Vantage 250 ML 250 MG IV ×2 (19:50→21:10)
[2024-03-14] MEDS: nystatin powder 15 gm Btl 1 APPLIC TOPICAL (19:51)
[2024-03-14 20:00] VITALS: BP 116/63; PULSE 93; PULSE 94; RESP 17; TEMP 36.4; O2SAT 100
[2024-03-14 20:28] LABS: Troponin 5 2HR 66.29 ng/L (0-10)
[2024-03-14 20:29] LABS: Troponin 5 2HR Delta -0.71 ABS# (0-10)
[2024-03-14 20:30] LABS: Glucose Point of Care 110 mg/dL (70-110)
--- NOTE | 2024-03-14 20:37 | PHA.VACGOAL ---
Vancomycin Goal - Goal Vancomycin Goal:: 10-15 mg/L Vancomycin Indication:: SSTI - Therapy Current therapy:: Meropenem, Other Antibiotic Day of therpy:: Day [1]of [] . Actual body weight (kg): 90.01 kg - Data Labs: WBC 7.29 10^3/uL (3.29-11.43) 03/14/24 16:40 RBC 3.00 10^6/uL (3.85-5.65) L 03/14/24 16:40 Hgb 8.90 g/dL (11.27-16.99) L 03/14/24 16:40 Hct 28.9 % (36-47) L 03/14/24 16:40 MCV 96.3 fl (85-98) 03/14/24 16:40 MCH 29.7 pg (27-33) 03/14/24 16:40 MCHC 30.8 g/dL (30-55) 03/14/24 16:40 RDW 17.4 % (12.1-15.1) H 03/14/24 16:40 Sodium 131 mmol/L (136-145) L 03/14/24 16:40 Potassium 3.1 mmol/L (3.5-5.1) L 03/14/24 16:40 Chloride 89 mmol/L (98-107) L 03/14/24 16:40 Carbon Dioxide 28 mmol/L (22-29) 03/14/24 16:40 Anion Gap 17.1 (5-19) 03/14/24 16:40 BUN 14 mg/dL (6-20) 03/14/24 16:40 Creatinine 2.9 mg/dL (0.5-0.9) H 03/14/24 16:40 GFR Calculation 16.6 mL/min (90-130) L 03/14/24 16:40 Treatment plan:: new consult Regimen:: Patient is a 58 year old female new start vancomycin for Abdominal wall cellulitis. Receives dialysis on MWF schedule. Loading dose of 25 mg/kg ordered (2000 mg). Pharmacy will continue to monitor daily.
[2024-03-14 23:09] LABS: Troponin 5 6HR 68.65 ng/L (0-10); Troponin 5 6HR Delta 1.65 ng/L (0-12)
--- NOTE | 2024-03-14 23:17 | ECG_ITS ---
[facility] [employer] Test Date: 2024-03-15 Pat Name: Elvi Kaiser Department: Room: 256 Gender: Female Primary Special Educator: : 1965 Requested By: Tay Townsend Order Number: [id number] Doug MD: Stoney Montoya M.D. Measurements Intervals [place] Rate: 97 P: 50 SD: 177 QRS: -42 QRSD: 134 T: 93 QT: 429 QTc: 546 Interpretive Statements SINUS RHYTHM WITH OCCASIONAL SUPRAVENTRICULAR PREMATURE COMPLEXES LEFT AXIS DEVIATION [QRS AXIS < -30] RIGHT BUNDLE BRANCH BLOCK [120+ ms QRS DURATION, UPRIGHT V1, 40+ ms S IN I/aVL/V4/V5/V6] POSSIBLE ANTERIOR MYOCARDIAL INFARCTION , PROBABLY OLD [30 ms Q WAVE IN V3/V4, OR R < 0.2 mV IN V4] Compared to ECG 03/14/2024 22:08:07 Left-axis deviation now present Left anterior fascicular block no longer present Myocardial infarct finding still present Electronically Signed On 03-15-2024 14:48:26 SHELLFISH SHUCKER by Stoney Montoya M.D. [id number]
[2024-03-15] VITALS (11 sets, daily range): BP systolic 95–128; BP diastolic 52–70; PULSE 73–103; RESP 16–19; TEMP 36.4–37.1; O2SAT 92–100
--- NOTE | 2024-03-15 | CTR_ITS ---
[facility] Final Radiology Report Call: [phone] assistance Online chat: [email or web address] Name: JEREMIAH MARIN Age: 58Years F Date: 03/15/2024 SSN: -- : 1965 Study: CT HEAD WO Requesting Physician: VARINDER OCASIO Images: 325 Add?l Studies: Provided Clinical History: ams PROCEDURE INFORMATION: Exam: CT Head Without Contrast Exam date and time: 03/15/2024 5:39 AM Age: 58 years old Clinical indication: Altered mental status/memory loss; Additional info: AMS TECHNIQUE: Imaging protocol: Computed tomography of the head without contrast. Radiation optimization: All CT scans at this facility use at least one of these dose optimization techniques: automated exposure control; mA and/or kV adjustment per patient size (includes targeted exams where dose is matched to clinical indication); or iterative reconstruction. COMPARISON: CT head wo con* [id number] 02/20/2024 12:37 PM RADIATION DOSE METRICS: Total DLP (mGy-cm): 2486.18 FINDINGS: Brain: Encephalomalacia/gliosis in the right parieto-occipital region with extensive dystrophic calcifications within the brain parenchyma. The appearance is unchanged since 02/20/2024. Cerebral ventricles: No ventriculomegaly. Paranasal sinuses: Visualized sinuses are unremarkable. No fluid levels. Mastoid air cells: Visualized mastoid air cells are well aerated. Bones: Unremarkable. No acute fracture. Soft tissues: Unremarkable. IMPRESSION: 1. No acute intracranial pathology. 2. 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 Thank you for allowing us to participate in the care of your patient. Dictated and Authenticated by: Willian Shabazz MD 03/15/2024 6:20 AM Central Time ([place] & [place]) [facility]
[2024-03-15 06:34] LABS: Glucose Point of Care 91 mg/dL (70-110)
--- OUTSIDE RECORDS SUMMARY | 2024-03-15 07:25 | XMS_ITS ---
Author Name Janis Odonnell Address [address] [place] [address] Phone [phone] Organization [facility], NA DOCUMENT DISCLAIMER Multiple document versions may exist, please be sure you review the latest version. The information in the [facility] Progress Note Document represents a providers documented clinical note containing certain health and medical information. It may not contain the complete medical history for the patient and should be independently verified. The represented time in the document is Eastern Time PROVIDER ROUNDING NOTE COMPREHENSIVE Patient:?Elvi?Job,?1965,?58y,?F Dialysis?Location[place] Attending?Laborer Salvage:?Carmen Service?Date:?01/31/2024 Service?Provider:?Janis?Blas,? I?met?face?to?face?with?the?patient?today. OVERVIEW The?patient?presented?with?ESRD?on?dialysis Primary?cause?of?renal?failure:?Type?2?diabetes?mellitus&#16 0;with?diabetic?chronic?kidney?disease Comments:?PCP:?Vivienne?Jazz VSS,?seen?on?HD?machine,?denies?needs?for?me?today She[place]She?has?not?fallen this?past?week. Medications?and?labs?reviewed. LAST?HOSPITALIZATION Discharge?Diagnosis:?R29.6?Repeated?falls R53.1?Weakness R41.0?Disorientation,?unspecified N39.0?Urinary?tract?infection,?site?not?specified Admission?Date?12/27/23 Discharge?Date?12/30/23 DIALYSIS?PRESCRIPTION ??IHD?3x?Week?Start?date:?01/31/24 ??Dialyzer:?160NRe?Optiflux ??BFR:?450 ??DFR:?Autoflow?1.5 ??Potassium:?2.0 ??Sodium:?136 ??EDW:?86.2 ??Duration:?3:30 ??Calcium:?2.0 ??Bicarb:?36 ??Rx?updated?on:?01/31/2024 TREATMENT?ASSESSMENT Comments:?End?of?HD?after?UF?BPs?are?stable?at?goal. BP?Stand?Pre ??01/28/2024:?138/67 ??01/26/2024:?139/74 ??01/24/2024:?157/72 BP?Sit?Pre ??01/28/2024:?98/56 ??01/26/2024:?125/67 ??01/24/2024:?160/68 BP?Stand?Post ??01/26/2024:?155/73 BP?Sit?Post ??01/28/2024:?149/77 ??01/26/2024:?105/88 ??01/24/2024:?146/71 Tx?Duration ??01/28/2024:?1:48 ??01/26/2024:?3:05 ??01/24/2024:?3:08 Missed?Treatments 0?-?last?30?days 0?-?last?60?days FLUID?ASSESSMENT Comments:?She?does?not?remember?how?much?she?drinks.?Sh e?is?to?use?the?same?cup?and?not?allow?her?daughter?to?refill?it.? Large?fluid?gains. Increase?time?to?3:30?until?can?get?back?to?EDW. EDW?(kg) ??01/28/2024:?86.2 ??01/26/2024:?86.2 ??01/24/2024:?86.2 Weight?Pre?(kg) ??01/28/2024:?87.8 ??01/26/2024:?88.6 ??01/24/2024:?88.7 Weight?Post?(kg) ??01/28/2024:?87.5 ??01/26/2024:?86.3 ??01/24/2024:?86.9 PWV?(kg) ??01/28/2024:?1.3 ??01/26/2024:?0.1 ??01/24/2024:?0.7 UF?Rate?(mL/kg/hr) ??01/28/2024:?1.9 ??01/26/2024:?8.6 ??01/24/2024:?6.6 ADEQUACY?ASSESSMENT Comments:???Recheck?Dmitry spKt/V,?URR ??01/11/2024:?3.36,?94.0 ??01/04/2024:?1.54,?75.0 ??12/14/2023:?1.31,?69.0 ACCESS?ASSESSMENT ??Access?Type:?AVFistula ??Access?SubType:?Transposed ??Access?Status:?Active?(In?Use)?-?12/19/2020 ??Access?Location:?Right?Upper?Arm ??Created:?10/14/2020 Flow ??11/28/2023:?1089 ??2023:?681 ??07/27/2023:?736 Vascular?access?reviewed.?Current?access?is?permanent?and?functioning?well. ANEMIA?ASSESSMENT Comments:?On?IV?iron?and?MAX?protocol. Increasing?mircera?per?alg HGB,?TSAT ??01/26/2024:?8.2,?- ??01/19/2024:?8.3,?- ??01/11/2024:?8.6,?21.0 ?? Ferritin ??12/14/2023:?3827.0 ??09/21/2023:?1973.0 Mircera,?IVP?(mcg) ??01/26/2024:?150 ??01/11/2024:?100 ??12/14/2023:?100 BMM?ASSESSMENT Comments:?Ed?to?take?phos?binders?and?avoid?high?phos foods. PTH,?Intact ??12/14/2023:?307.0 ??09/21/2023:?204.0 ??07/13/2023:?754.0 ?? Calcium,?Phosphorus ??01/11/2024:?8.8,?6.2 ??12/14/2023:?9.2,?4.7 ??11/21/2023:?8.9,?4.3 Vitamin?D?(Calcitriol)?Oral?(mcg) ??01/28/2024:?0.5 ??01/26/2024:?0.5 ??01/21/2024:?0.5 NUTRITION?ASSESSMENT Comments:??has?ongoing?injuries?of?nonhealing?wounds. Potassium,?Albumin ??01/11/2024:?5.0,?3.0 ??12/14/2023:?4.2,?3.3 ??11/21/2023:?4.6,?3.4 ?? eNPCR ??01/11/2024:?0.81 ??01/04/2024:?0.58 ??12/14/2023:?0.51 PHYSICAL?EXAM Exam?Performed.?Vital?Signs?Reviewed.?CV?-?Blood?pressure&#1 60;noted.?EXT?-?No?edema.?EXT?-?No?ulcers.?AVF/AVG Positive?thrill/bruit. DIAGNOSIS Chief?Complaint:?N18.6?End?stage?renal?disease Patient?is?stable. Patient?data?updated?01/31/2024?at?3:28?PM Signed?By:?Blas,?Janis???on?01/31/2024?3:31:20?PM END OF DOCUMENT
--- OUTSIDE RECORDS SUMMARY | 2024-03-15 07:25 | XMS_ITS ---
Author Name MoisesTarshaMary Address [address] [place] [id number] Phone [phone] Organization [facility], NA DOCUMENT DISCLAIMER Multiple document versions may exist, please be sure you review the latest version. The information in the [facility] Progress Note Document represents a providers documented clinical note containing certain health and medical information. It may not contain the complete medical history for the patient and should be independently verified. The represented time in the document is Eastern Time PROVIDER ROUNDING NOTE BASIC Patient:?Elvi?Kaiser,?1965,?58y,?F Dialysis?Location:[place] Attending?Assembler Gold Frame:?Carmen Service?Date:?12/21/2023 Service?Provider:?Mary?Moises,?MEDICAL RECORD LIBRARIAN I?met?face?to?face?with?the?patient?today. OVERVIEW The?patient?presented?with?ESRD?on?dialysis Primary?cause?of?renal?failure:?Type?2?diabetes?mellitus&#16 0;with?diabetic?chronic?kidney?disease Comments:?PCP:?Vivienne?Jazz VSS,?seen?on?HD?machine,?denies?needs?for?me?today She?has?been?at?home?now?after?falling?again?and?g oing?to?the[facility].?She?reports?no?falls?recently.?Has PT?and?OT?3?X?a?week. Medications?and?labs?reviewed. LAST?HOSPITALIZATION Discharge?Diagnosis:?S02.2XXA?Fracture?of?nasal?bones,?initial&#1 60;encounter?for?closed?fracture R29.6?Repeated?falls S42.202S?Unspecified?fracture?of?upper?end?of?left?humerus, sequela Admission?Date?11/08/23 Discharge?Date?11/17/23 DIALYSIS?PRESCRIPTION ??IHD?3x?Week?Start?date:?12/07/23 ??Dialyzer:?160NRe?Optiflux ??BFR:?450 ??DFR:?Autoflow?1.5 ??Potassium:?2.0 ??Sodium:?136 ??EDW:?84.1 ??Duration:?3:00 ??Calcium:?2.0 ??Bicarb:?36 ??Rx?updated?on:?12/07/2023 TREATMENT?ASSESSMENT Comments:?End?of?HD?after?UF?BPs?are?stable?at?goal. BP?Sit?Pre ??12/19/2023:?125/101 ??12/16/2023:?158/73 ??12/14/2023:?164/31 BP?Sit?Post ??12/19/2023:?101/70 ??12/16/2023:?166/68 ??12/14/2023:?128/100 Tx?Duration ??12/19/2023:?2:48 ??12/16/2023:?2:27 ??12/14/2023:?2:51 Missed?Treatments 0?-?last?30?days 1?-?last?60?days 8/9?-?recent FLUID?ASSESSMENT Comments:?Ed?on?fluid?gains. As?above. EDW?(kg) ??12/19/2023:?84.1 ??12/16/2023:?84.1 ??12/14/2023:?84.1 Weight?Pre?(kg) ??12/19/2023:?86.9 ??12/16/2023:?86.4 ??12/14/2023:?85.7 Weight?Post?(kg) ??12/19/2023:?84.9 ??12/16/2023:?84.3 ??12/14/2023:?84.0 PWV?(kg) ??12/19/2023:?0.8 ??12/16/2023:?0.2 ??12/14/2023:?-0.1 UF?Rate?(mL/kg/hr) ??12/19/2023:?8.4 ??12/16/2023:?10.2 ??12/14/2023:?7.1 ADEQUACY?ASSESSMENT Adequacy?target?met.? spKt/V,?URR ??12/14/2023:?1.31,?69.0 ??11/21/2023:?1.63,?77.0 ??10/12/2023:?1.49,?73.0 ACCESS?ASSESSMENT ??Access?Type:?AVFistula ??Access?SubType:?Transposed ??Access?Status:?Active?(In?Use)?-?12/19/2020 ??Access?Location:?Right?Upper?Arm ??Created:?10/14/2020 Flow ??11/28/2023:?1089 ??2023:?681 ??07/27/2023:?736 Vascular?access?reviewed.?Current?access?is?permanent?and?functioning?well. ANEMIA?ASSESSMENT Comments:?On?IV?iron?and?MAX?protocol. Increasing?mircera?per?alg HGB,?TSAT ??12/14/2023:?8.1,?19.0 ??12/07/2023:?8.4,?- ??11/30/2023:?11.1,?- ?? Ferritin ??12/14/2023:?3827.0 ??09/21/2023:?1973.0 ??06/15/2023:?1601.0 Mircera,?IVP?(mcg) ??12/14/2023:?100 ??11/21/2023:?30 ??11/02/2023:?30 BMM?ASSESSMENT Comments:?Stable?at?goal. PTH,?Intact ??12/14/2023:?307.0 ??09/21/2023:?204.0 ??07/13/2023:?754.0 ?? Calcium,?Phosphorus ??12/14/2023:?9.2,?4.7 ??11/21/2023:?8.9,?4.3 ??10/12/2023:?8.5,?6.3 Vitamin?D?(Calcitriol)?Oral?(mcg) ??12/19/2023:?0.5 ??12/16/2023:?0.5 ??12/14/2023:?0.5 NUTRITION?ASSESSMENT Potassium?controlled.?Referred?to?dietitian.? Potassium,?Albumin ??12/14/2023:?4.2,?3.3 ??11/21/2023:?4.6,?3.4 ??10/12/2023:?5.2,?3.2 ?? eNPCR ??12/14/2023:?0.51 ??10/12/2023:?0.7 ??08/10/2023:?0.64 PHYSICAL?EXAM Exam?Not?Performed. DIAGNOSIS Chief?Complaint:?N18.6?End?stage?renal?disease Patient?data?updated?12/21/2023?at?9:42?AM Signed?By:?Moises,?Mary,?MEDICAL RECORD LIBRARIAN??on?12/21/2023?9:43:47 AM END OF DOCUMENT
--- OUTSIDE RECORDS SUMMARY | 2024-03-15 07:25 | XMS_ITS | Continuity of Care Document ---
Author Name Unknown Organization [facility] [employer] Address [address] [place] [address] Phone Care Team Providers Care Distribution Warehouse Manager Name Role Phone Casey Lay MD Unavailable Unavailable Allergies, Adverse Reactions, Alerts Substance Reaction Status Criticality acetaminophen Active No Information aspirin Active No Information Medications Medication Instructions Dosage Effective Dates (start - stop) Status Comments metoprolol succinate ER 100 mg tablet,extended release 24 hr - Active cyclobenzaprine 10 mg tablet - Active amoxicillin 500 mg capsule - Active hydromorphone 2 mg tablet - Active sevelamer carbonate 2.4 gram oral powder packet - Active amlodipine 10 mg tablet - Ac tive escitalopram 20 mg tablet - Active Banophen 25 mg capsule - Act peg prednisone 50 mg tablet - Ac tive RenaPlex-D 800 mcg-12.5 mg-2,000 unit tablet TAKE 1 TABLET BY MOUTH EVERY DAY - Active Fosrenol 1,000 mg oral powder packet MIX 1 PACKET WITH SMALL AMOUNT OF APPLESAUCE OR SIMILAR FOOD. EAT IMMEDIATELY 3 TIMES/DAY WITH MEALS - Active pramipexole 0.125 mg tablet - Active ropinirole 0.5 mg tablet - A ctive amlodipine 5 mg tablet - Act peg Velphoro 500 mg chewable tablet - Active cephalexin 500 mg capsule - Active Auryxia 210 mg iron tablet TAKE 3 TABLETS BY MOUTH THREE TIMES DAILY WITH MEALS SWALLOW WHOLE, DO NOT CHEW OR CRUSH MEDICATION - Active Banophen 25 mg tablet TAKE 2 TABLETS BY MOUTH AN HOUR BEFORE TEST - Active carbidopa 25 mg-levodopa 100 mg tablet - Active clopidogrel 75 mg tablet - A ctive lidocaine-prilocaine 2.5 %-2.5 % topical cream APPLY SMALL AMOUNT TO ACCESS SITE (AVF) 1 HOUR BEFORE DIALYSIS. COVER WITH OCCLUSIVE DRESSING (SARAN WRAP) - Active prednisone 10 mg tablet - Ac tive Procedures Procedure Date INGEST CHALLENGE, INIT 120 MIN OFFICE/OUTPATIENT VISIT, [facility] ROUTINE VENIPUNCTURE COMPLETE CBC W/ AUTO DIFF WBC Advance Directives Directive Yes / No Effective Date File Name No Information Encounters Encounter Description Practice Location Reason(s) For Visit Diagnoses Date Provider Providers Copied on Encounter [facility], [address] [place] [address], [id number], tel:[phone] [facility] Body mass index (BMI) 38.0-38.9, adultAdverse effect of other drugs, medicaments and biological substances, initial encounterIdiopathic urticariaAllergy to acetaminophen 1 Alireza Peña. [address] [place] [address], [id number] , [place]. tel:[phone] Referring Provider: Casey Blackwell, [address] [place] [address], [id number] . tel:[phone] OFFICE/OUTPA TIENT VISIT, [facility], [address] [place] [address], [id number], [place] tel:[phone] [facility] Adverse effect of drug/meds/biol subst, initIdiopathic urticariaBody mass index (BMI) 38.0-38.9, adult Sep- Alireza Peña. [address] [facility] , [place], [place], [id number] , [place]. tel:[phone] Referring Provider: Brayden Greene MD, [address], [place], [address]. tel:[phone] Family History Family Member Type Diagnosis Age At Onset Mother Problem Allergies Son Problem Allergies Father Problem Thyroid disorder Daughter Problem Allergies Father Problem asthma Payers Payer name Insurance type Covered libertarian ID Authorsuleman umana(s) [facility] Dual SNP [id number] CI [id number] [facility] CI [id number] Social History Type Description Quantity Date Captured Comments Alcohol Use Details Unknown Caffeine Use Details Unknown Tobacco Use Status No Information Smoking Status No Information Sex Female Vital Signs Date / Time: Height Weight BMI Pulse Rate Blood Pressure Temperature Respiratory Rate Body Surface Area Head Circumference Head Circ. Percentile Wt./Wiliam. Percentile BMI percentile Pulse Ox Inhaled Ox 11:29 AM 59.75 in 88.178 kg (194.40 lbs) 38.2 9 kg/m eter (2) 97 /min 188/73 mm[Hg] 96.60 F 1.93 meter(2) Chief Complaint And Reason For Visit No Information Reason For Referral Reason For Referral No Information Plan Of Treatment Date Type Action Status Goal Lifestyle education regardin g diet completed Goal Lifestyle education regardin g diet completed History Of Present Illness Encounter Date Complaint History Of Prese nt Illness No Information Functional Status Date Functional Assessmen t Pain Score 0/10 Instructions Date Instruction Additional Infor mation Lifestyle education regarding di et Related to Body mass index [BMI] 38.0-38.9, adult Lifestyle education regarding di et Related to Body mass index [BMI] 38.0-38.9, adult Assessments Type Assessment Date assessment Body mass index [BMI] 38.0-38.9, adult assessment Adverse effect of ot her drugs, medicaments and biological substances, initial encounter assessment Idiopathic urticaria assessment Allergy to acetaminophen 2020 Patient Care Teams Name Effective Dates (start - stop) Status Members No Information
--- OUTSIDE RECORDS SUMMARY | 2024-03-15 07:25 | XMS_ITS | Continuity of Care Document ---
Author Name Unknown Organization [facility] Address [address] 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 Name Role Phone Vivienne Schulz MD Primary Care Physician Encounter Banks Financial Number [phone] Date(s): 11/08/23 - 11/18/23 [facility] [address] [place] [address] [phone] Encounter Diagnosis ESRD on dialysis(Discharge Diagnosis) - 11/11/23 Dependence on renal dialysis(Discharge Diagnosis) - 11/11/23 Nasal bone fracture(Discharge Diagnosis) - 11/09/23 Fracture of left humerus(Discharge Diagnosis) - 11/09/23 Fall at home(Discharge Diagnosis) - 11/09/23 Anemia(Discharge Diagnosis) - 11/09/[address] in unspecified non-institutional (private) residence as the place of occurrence of the external cause(Discharge Diagnosis) - 11/09/23 Nasal bone fracture(Discharge Diagnosis) - 11/08/23 Macrocytic anemia(Discharge Diagnosis) - 11/08/23 Fracture of left humerus(Discharge Diagnosis) - 11/08/23 Type 2 diabetes mellitus with hyperglycemia(Discharge Diagnosis) - 11/08/23 Frequent falls(Discharge Diagnosis) - 11/08/23 Hyponatremia(Discharge Diagnosis) - 11/08/23 Hypertension(Discharge Diagnosis) - 11/08/23 Hypoalbuminemia(Discharge Diagnosis) - 11/08/23 Restless leg syndrome(Discharge Diagnosis) - 11/08/23 Combined systolic and diastolic heart failure(Discharge Diagnosis) - 11/09/23 Discharge Disposition: .Discharge to Home (Routine) Attending Physician: Pako Pimentel MD Admitting Physician: Gio Adams DO Allergies, Adverse Reactions, Alerts Substance Reaction Severity Status lisinopril Cough Active Neurontin Hives Active Phenergan caused whole body t o jerk uncontrollably Severe Active Tylenol Hives Active Vicodin Hives Active Percocet 7.5/325 Swollen face Hives Vicodin Severe Active Latex 1 anaphylaxsis - throat closes up Severe Active NSAIDs as a child, hives Active contrast media (iodine-based) just about stopped my h eart Severe Active traMADol Speech impairment Active Pineapple Uncooked Unknown Active Adhesive Rash, NOS Blisters Active Kiwi Swelling Severe Active 1allergic to kiwi, strawberry and pineapple Assessment and Plan Extracted from: Title:Instructions to Patients Author:Nteo Reid Date:11/18/23 [facility] Facility to Facility Discharge Information NGACO Status:??Non NGACO Patient Palliative Care Consult:??No Palliative Care Consult Flu Result: Flu Result:??No Flu Detected History of Culture Positive for CRE:No CRE Positive Lab Result: CRE Positive Lab Result:??No CRE on Problem List 1.? Advanced Directive: Yes 2.? Allergies: ??Kiwi; Adhesive; Pineapple; traMADol; contrast media (iodine-based); NSAIDs; Latex; Percocet 7.5/325; Vicodin; Tylenol; Phenergan; Neurontin; lisinopril Last Charted Vital Signs Temperature 97.8 DegF Temperature Route Oral Pulse Rate 109 Respiratory Rate 17 br/min SBP/DBP Cuff 125 mmHg/75 mmHg MAP 92 mmHg Pulse Oximetry 98 % Oxygen Delivery Room air Oxygen Liter Flow 2 L/min Refer to additional chart documents for details. 3.? Bowel Movement: 4.? Isolation: 5.? Medical Equipment During Hospital Stay: 6.? Urinary Catheter Type: Size: a.?Date/Time: ? By: b.? Urinary Catheter Activity: c.? Urinary Catheter Indication: 7.? Peripheral IV Site: Lt, Wrist a.? Date/Time: 11/08/2023 08:30:00 By: Harjinder Campbell RN? Peripheral IV Activity: Assessment 8.? Central Line Type: a.? Date/Time: c.? Central Line Site: d.? Central Line Activity: 8.? Invasive Line Type: a.? Date/Time: c.? Invasive Line Site: d.? Invasive Line Activity: 9.? Additional Notes: Immunizations No??Immunizations??Recorded Case Management Contact Info: [facility] [phone] [facility] [phone] [facility] [phone] [facility] [phone] [facility] [phone] [facility] [phone] Discharging Nurse: Discharge Date: Receiving Facility(SGF) : Receiving Facility(OTH) : Phone # for Questions: Report called to: Diagnosis: Diagnoses This Visit ?Anemia,??unspecified??(D64.9) ?Unspecified??combined??systolic??(congestive)??and??diastolic??(congesti ve)??heart??failure??(I50.40) ?Other??specified??health??status??(Z78.9) ?Other??reduced??mobility??(Z74.09) ?Dependence??on??renal??dialysis??(Z99.2) ?Dysphagia,??oropharyngeal??phase??(R13.12) ?End??stage??renal??disease??(N18.6) ?Unspecified??fall,??initial??encounter??(W19.XXXA) ?Unspecified??fracture??of??shaft??of??humerus,??left??arm,??initial??enc ounter??for??closed??fracture??(S42.302A) ?Unspecified??fracture??of??shaft??of??humerus,??left??arm,??initial??enc ounter??for??closed??fracture??(S42.302A) ?Repeated??falls??(R29.6) ?Essential??(primary)??hypertension??(I10) ?Other??disorders??of??plasma- protein??metabolism,??not??elsewhere??classified??(E88.09) ?Hypo-osmolality??and??hyponatremia??(E87.1) ?Nutritional??anemia,??unspecified??(D53.9) ?Fracture??of??nasal??bones,??initial??encounter??for??closed??fracture?? (S02.2XXA) ?Fracture??of??nasal??bones,??initial??encounter??for??closed??fracture?? (S02.2XXA) ?Restless??legs??syndrome??(G25.81) ?Type??2??diabetes??mellitus??with??hyperglycemia??(E11.65) ?Unspecified??place??in??unspecified??non- institutional??(private)??residence??as??the??place??of??occurrence??of??the??ex ternal??cause??(Y92.009) Problems: Follow up: With: Address: When: Your home health agency is [facility]. They will call you to arrange your visits Comments: Nurse please send H&P, Progress note and discharge paperwork to [phone]. Thank you Medications: Discharge Reconciliation Status:Complete Medicine on Hold Reason why medicine is on hold None Home Medications Date/Time Next Dose Due Notes to Patient HYDROmorphone (HYDROmorphone 2 mg oral tablet)0.5 tab, By mouth, every 8 hours for 5 Days, As Needed, Pain Severe (7-10), Refills: 0, Dispense: 15 tab iron polysaccharide (iron polysaccharide 150 mg (elemental iron) oral c)1 cap, By mouth, Daily, Refills: 0, Dispense: 30 cap pantoprazole (pantoprazole 40 mg oral delayed release tablet)1 tab, By mouth, Daily, Refills: 0, Dispense: 30 tab cetirizine (cetirizine) 10 mg, By mouth, twice daily, Refills: 0 escitalopram (Lexapro 20 mg oral tablet) 1 tab, By mouth, Daily, Refills: 0 diclofenac topical (Voltaren 1% topical gel) See Instructions, , 2 g, Refills: 0 ferric citrate (Auryxia 210 mg oral tablet) 2 tab, By mouth, with meals 1 tab with snacks, Refills: 0 gabapentin (gabapentin 100 mg oral capsule) 1 cap, By mouth, three times a day, Refills: 0 multivitamin with minerals (RenaPlex-D oral tablet) 1 tab, By mouth, Daily carbidopa-levodopa (carbidopa-levodopa 25 mg-100 mg oral tablet) 0.5 tab, By mouth, as directed prior to dialysis 3 days/week metoprolol (Toprol-XL 50 mg oral tablet, extended release) 1 tab, By mouth, Daily levothyroxine (levothyroxine 50 mcg (0.05 mg) oral tablet) 1 tab, By mouth, Daily omeprazole (omeprazole 20 mg oral delayed release capsule) 1 cap, By mouth, Daily rOPINIRole (rOPINIRole 0.5 mg oral tablet) 1 tab, By mouth, at bedtime rosuvastatin (rosuvastatin 20 mg oral tablet) 1 tab, By mouth, Daily furosemide (Lasix 80 mg oral tablet) 1 tab, By mouth, Daily, Refills: 0 darbepoetin gume (darbepoetin gume 60 mcg/0.3 mL injectable solution) 0.3 mL, Subcutaneous, once a week, Refills: 0 Specific Discharge Instructions: Diet:??Renal Activity Instructions/Limitations:??As tolerated ?Instructions:??May use sling to left arm as desired for comfort. PT, OT for ROM and strengthening exercises. Discharge Plan:??Eval of SNF / Return to Baseline ?Estimated Length of Stay:??TBD Facility Discharge Occupational Therapy Eval and Treat Facility Discharge Physical Therapy Eval and Treat Facility Discharge Code Status Discharge Code Status:??Full Code Facility Discharge Diabetic MonitoringAccuchecks:??AC & HS/Sliding Scale Facility Discharge DialysisDischarge Dialysis:??Hemodialysis M-W-F Initiated and Electronically signed by ?Blessing Fu?11/17/2023 10:39 Extracted from: Title:Progress Note, Renal Author:Roger Temple Date:11/17/23 Impression and Plan Orders Orders Pharmacy: torsemide (Order): 100 mg, TAB, By mouth, Daily, Start Date: 11/17/2023 12:48 CDT, Duration: 90 Days, Stop date 02/14/2024 9:00 [employer], Routine Lasix (Discontinue): 11/17/2023 12:33 CDT Professional Fees: [facility] F/U Inpatient [id number] (Order): 11/17/2023 12:33 CDT, Neph Providers, Hospital, Combined systolic and diastolic heart failure ESRD on dialysis Anemia Hypoalbuminemia Hypertension. Extracted from: Title:Discharge Note Author:Payal Fu sa Date:11/17/23 Fine Arts Teacher 11/08/23 15:47:00 CDT, Other, Physician Order Order Comment: Discharge planning ?? Discharge 11/15/23 7:59:00 CDT, Senior Living Facility ? Discharge Work/School/Daycare Restrictions 11/15/23 7:59:00 CDT, Return to work in: No Restrictions ? Facility Discharge Plan 30 days, 11/15/23 7:59:00 CDT ? Facility Discharge Occupational Therapy Eval and Treat 11/15/23 7:59:00 CDT ? Facility Discharge Physical Therapy Eval and Treat 11/15/23 7:59:00 CDT ? Facility Discharge Code Status 11/15/23 7:59:00 CDT, Full Code ? Facility Discharge Dialysis 11/15/23 7:59:00 CDT, Hemodialysis M-W-F ? Addendum by Rosalva Fu on November 18, 2023 10:18:01 CDT S: Ms Kaiser did not discharge yesterday as was accepted.?? Insurance auth still pending.?? She was seen in follow-up today, 11/17 while in dialysis.?? C/o leg cramping while on treatment, otherwise doing okay.?? Anticipating discharge. ?? O: VSS. Gen.:?No acute distress Respiratory: Nonlabored respirations.?? Lungs clear. Cardiovascular: Regular rate and rhythm.?? Gastrointestinal: Abdomen soft, nondistended, and nontender.?? Normoactive bowel sounds throughout.?? Musculoskeletal: Freely moves extremities.?? No obvious swelling or deformity. Neurologic: Alert and oriented.?? No appreciable acute focal deficits. Psychiatric: Calm, cooperative.?? Appropriate mood and affect. ?? A/P:?? as above.?? Remains stable for discharge to skilled facility for ongoing pt/ot. discharge orders adn medications as above without revision today. Extracted from: Title:Progress SOAP Note Author:Rosalva Fu Date:11/16/23 1.??Macrocytic anemia(Nutrit ional anemia, unspecified: D53.9) 2.??Combined systolic and diastolic heart failure(Unspecified combined systolic (congestive) and diastolic (congestive) heart failure: I50.40) 3.??Frequent falls(Repeated falls: R29.6) 5.??Type 2 diabetes mellitus with hyperglycemia(Type 2 diabetes mellitus with hyperglycemia: E11.65) 6.??Restless leg syndrome(Restless legs syndrome: G25.81) 7.??Hypertension(Essential (primary) hypertension: I10) 8.??Hyponatremia(Hypo-osmolality and hyponatremia: E87.1) 9.??Hypoalbuminemia(Other disorders of plasma-protein metabolism, not elsewhere classified: E88.09) Anemia(Anemia, unspecified: D64.9) Dependence on renal dialysis(Dependence on renal dialysis: Z99.2) ESRD on dialysis(End stage renal disease: N18.6) Fall at home(Unspecified fall, initial encounter: W19.XXXA) Fracture of left humerus(Unspecified fracture of shaft of humerus, left arm, initial encounter for closed fracture: S42.302A) Fracture of left humerus(Unspecified fracture of shaft of humerus, left arm, initial encounter for closed fracture: S42.302A) Nasal bone fracture(Fracture of nasal bones, initial encounter for closed fracture: S02.2XXA) Nasal bone fracture(Fracture of nasal bones, initial encounter for closed fracture: S02.2XXA) Unspecified place in unspecified non-institutional (private) residence as the place of occurrence of the external cause(Unspecified place in unspecified non-institutional (private) residence as the place of occurrence of the external cause: Y92.009) ? PLAN: ?? Frequent Falls, Facial Fx, Humeral Fx: -ENT consulted. No operative intervention needed for facial Fx. -Orthopedics consulted for concern of chronic left humeral fracture. Appreciate recommendations. 3 View XR with stable Fx noted. OP follow up as needed -Right foot x-ray with no acute fx -PRN PO Dilaudid low dose PO given multiple allergies. PT/OT pending. Anticipating post acute placement. ? ESRD on HD: -Nephrology consulted for dialysis (Tuesday, Tuesday, and Tuesday) schedule. Aranesp per nephrology. ?? ?Chronic Systolic and Diastolic CHF: -Echocardiogram with EF 37%, Grade I DD -No previous echo for comparison -GDMT: On Metoprolol. Allergic to JACEK. No SGLT-2 with ESRD. Lasix 80 mg po daily per nephrology.?? Additional??volume management as??needed with HD.? Iron Def Anemia, Anemia of ESRD: Iron daily.?? Aranesp as above. ?? DM II: blood sugars controlled with no need for supplemental insulin.?? Will d/c protocol. No need to monitor blood sugars regularly. Will d/c insulin. ? Hypothyroid: levothyroxine as current. ?? DVT prophylaxis: Sequential compression devices ?? Dispo:??planning for post acute placement at SNF.?? Additional referrals pending as above.?? Case management following.??Medically stable for when arranged. ?? Discharge orders in. Rx for pain medication on chart. ? Extracted from: Title:Progress Note, Renal Author:Roger Temple Date:11/15/23 Impression and Plan Course: Unchanged. Orders Orders Laboratory: CMP (Order): Blood, AM Priority, 11/16/2023 1:00 CDT, Routine, 24, hr, 11/17/2023 0:59 CDT, pp_rslts_call_set_order_encntr Phosphorus (Order): Blood, AM Priority, 11/16/2023 1:00 CDT, Routine, 24, hr, 11/17/2023 0:59 CDT, pp_rslts_call_set_order_encntr Professional Fees: [facility] F/U Inpatient [id number] (Order): 11/15/2023 13:04 CDT, Neph Providers, Hospital, ESRD on dialysis Anemia Hypertension Combined systolic and diastolic heart failure. Extracted from: Title:Progress SOAP Note Author:Sam Adams DO Date:11/15/23 1.??Macrocytic anemia(Nutrit ional anemia, unspecified: D53.9) 2.??Combined systolic and diastolic heart failure(Unspecified combined systolic (congestive) and diastolic (congestive) heart failure: I50.40) 3.??Frequent falls(Repeated falls: R29.6) 5.??Type 2 diabetes mellitus with hyperglycemia(Type 2 diabetes mellitus with hyperglycemia: E11.65) 6.??Restless leg syndrome(Restless legs syndrome: G25.81) 7.??Hypertension(Essential (primary) hypertension: I10) 8.??Hyponatremia(Hypo-osmolality and hyponatremia: E87.1) 9.??Hypoalbuminemia(Other disorders of plasma-protein metabolism, not elsewhere classified: E88.09) Anemia(Anemia, unspecified: D64.9) Dependence on renal dialysis(Dependence on renal dialysis: Z99.2) ESRD on dialysis(End stage renal disease: N18.6) Fall at home(Unspecified fall, initial encounter: W19.XXXA) Fracture of left humerus(Unspecified fracture of shaft of humerus, left arm, initial encounter for closed fracture: S42.302A) Fracture of left humerus(Unspecified fracture of shaft of humerus, left arm, initial encounter for closed fracture: S42.302A) Nasal bone fracture(Fracture of nasal bones, initial encounter for closed fracture: S02.2XXA) Nasal bone fracture(Fracture of nasal bones, initial encounter for closed fracture: S02.2XXA) Unspecified place in unspecified non-institutional (private) residence as the place of occurrence of the external cause(Unspecified place in unspecified non-institutional (private) residence as the place of occurrence of the external cause: Y92.009) Orders: darbepoetin gume, 60 mcg = 0.3 mL, SubQ, QW (once a week), Refill(s) 0, INJ furosemide, 80 mg = 1 tab, By mouth, Daily, Refill(s) 0, TAB HYDROmorphone, 1 mg, = 0.5 tab, By mouth, Q8H, PRN Pain Severe (7-10), 5 Days, 15 tab, 0, 0, 11/20/23 8:00:00 CDT, Substitution Permitted iron polysaccharide, 150 mg = 1 cap, By mouth, Daily, # 30 cap, Refill(s) 0, Pharmacy: [id number], SR CAP, 1 cap By mouth Daily, 91.9, 11/13/23 6:14:00 CDT, kg, Weight (kg) (Clinical) pantoprazole, 40 mg = 1 tab, By mouth, Daily, # 30 tab, Refill(s) 0, [id number] TAB, 1 tab By mouth Daily, 91.9, 11/13/23 6:14:00 CDT, kg, Weight (kg) (Clinical) Discharge Discharge Work/School/Daycare Restrictions Facility Discharge Code Status Facility Discharge Dialysis Facility Discharge Occupational Therapy Eval and Treat Facility Discharge Physical Therapy Eval and Treat Facility Discharge Plan Initiate Plan, Discharge Inpatient/OBS Extracted from: Title:Progress SOAP Note Author:Sam Adams DO Date:11/14/23 1.??Macrocytic anemia(Nutrit ional anemia, unspecified: D53.9) 2.??Combined systolic and diastolic heart failure(Unspecified combined systolic (congestive) and diastolic (congestive) heart failure: I50.40) 3.??Frequent falls(Repeated falls: R29.6) 5.??Type 2 diabetes mellitus with hyperglycemia(Type 2 diabetes mellitus with hyperglycemia: E11.65) 6.??Restless leg syndrome(Restless legs syndrome: G25.81) 7.??Hypertension(Essential (primary) hypertension: I10) 8.??Hyponatremia(Hypo-osmolality and hyponatremia: E87.1) 9.??Hypoalbuminemia(Other disorders of plasma-protein metabolism, not elsewhere classified: E88.09) Anemia(Anemia, unspecified: D64.9) Dependence on renal dialysis(Dependence on renal dialysis: Z99.2) ESRD on dialysis(End stage renal disease: N18.6) Fall at home(Unspecified fall, initial encounter: W19.XXXA) Fracture of left humerus(Unspecified fracture of shaft of humerus, left arm, initial encounter for closed fracture: S42.302A) Fracture of left humerus(Unspecified fracture of shaft of humerus, left arm, initial encounter for closed fracture: S42.302A) Nasal bone fracture(Fracture of nasal bones, initial encounter for closed fracture: S02.2XXA) Nasal bone fracture(Fracture of nasal bones, initial encounter for closed fracture: S02.2XXA) Unspecified place in unspecified non-institutional (private) residence as the place of occurrence of the external cause(Unspecified place in unspecified non-institutional (private) residence as the place of occurrence of the external cause: Y92.009) Extracted from: Title:Progress SOAP Note Author:Sam Adams DO ryl W Date:11/13/23 1.??Macrocytic anemia(Nutrit ional anemia, unspecified: D53.9) 2.??Combined systolic and diastolic heart failure(Unspecified combined systolic (congestive) and diastolic (congestive) heart failure: I50.40) 3.??Frequent falls(Repeated falls: R29.6) 5.??Type 2 diabetes mellitus with hyperglycemia(Type 2 diabetes mellitus with hyperglycemia: E11.65) 6.??Restless leg syndrome(Restless legs syndrome: G25.81) 7.??Hypertension(Essential (primary) hypertension: I10) 8.??Hyponatremia(Hypo-osmolality and hyponatremia: E87.1) 9.??Hypoalbuminemia(Other disorders of plasma-protein metabolism, not elsewhere classified: E88.09) Anemia(Anemia, unspecified: D64.9) Dependence on renal dialysis(Dependence on renal dialysis: Z99.2) ESRD on dialysis(End stage renal disease: N18.6) Fall at home(Unspecified fall, initial encounter: W19.XXXA) Fracture of left humerus(Unspecified fracture of shaft of humerus, left arm, initial encounter for closed fracture: S42.302A) Fracture of left humerus(Unspecified fracture of shaft of humerus, left arm, initial encounter for closed fracture: S42.302A) Nasal bone fracture(Fracture of nasal bones, initial encounter for closed fracture: S02.2XXA) Nasal bone fracture(Fracture of nasal bones, initial encounter for closed fracture: S02.2XXA) Unspecified place in unspecified non-institutional (private) residence as the place of occurrence of the external cause(Unspecified place in unspecified non-institutional (private) residence as the place of occurrence of the external cause: Y92.009) Orders: H&H Extracted from: Title:Progress Note, Renal Author:Vivek Loomis Date:11/13/23 Impression and Plan Orders Orders Laboratory: Phosphorus (Order): Blood, AM Routine, 11/14/2023 3:00 CDT, Routine, 24, hr, 11/15/2023 2:59 CDT, pp_rslts_call_set_order_encntr Basic Metabolic Panel (Order): Blood, AM Routine, 11/14/2023 3:00 CDT, Routine, 24, hr, 11/15/2023 2:59 CDT, pp_rslts_call_set_order_encntr CBC-d (Order): Blood, AM Routine, 11/14/2023 3:00 CDT, Routine, 24, hr, 11/15/2023 2:59 CDT, pp_rslts_call_set_order_encntr. Extracted from: Title:Progress SOAP Note Author:Sam Adams DO Date:11/12/23 1.??Macrocytic anemia(Nutrit ional anemia, unspecified: D53.9) 2.??Combined systolic and diastolic heart failure(Unspecified combined systolic (congestive) and diastolic (congestive) heart failure: I50.40) 3.??Frequent falls(Repeated falls: R29.6) 5.??Type 2 diabetes mellitus with hyperglycemia(Type 2 diabetes mellitus with hyperglycemia: E11.65) 6.??Restless leg syndrome(Restless legs syndrome: G25.81) 7.??Hypertension(Essential (primary) hypertension: I10) 8.??Hyponatremia(Hypo-osmolality and hyponatremia: E87.1) 9.??Hypoalbuminemia(Other disorders of plasma-protein metabolism, not elsewhere classified: E88.09) Anemia(Anemia, unspecified: D64.9) Dependence on renal dialysis(Dependence on renal dialysis: Z99.2) ESRD on dialysis(End stage renal disease: N18.6) Fall at home(Unspecified fall, initial encounter: W19.XXXA) Fracture of left humerus(Unspecified fracture of shaft of humerus, left arm, initial encounter for closed fracture: S42.302A) Fracture of left humerus(Unspecified fracture of shaft of humerus, left arm, initial encounter for closed fracture: S42.302A) Nasal bone fracture(Fracture of nasal bones, initial encounter for closed fracture: S02.2XXA) Nasal bone fracture(Fracture of nasal bones, initial encounter for closed fracture: S02.2XXA) Unspecified place in unspecified non-institutional (private) residence as the place of occurrence of the external cause(Unspecified place in unspecified non-institutional (private) residence as the place of occurrence of the external cause: Y92.009) Orders: loperamide, 2 mg = 1 cap, CAP, By mouth, as needed, PRN, Diarrhea/Loose Stool, Start Date: 11/12/23 8:31:00 CDT, Duration: 90 Days, Stop date 02/10/24 8:30:00 CDT, Routine, Disp Location: [facility] 2nd Floor 1, [facility] DISP Extracted from: Title:Progress SOAP Note Author:Sam Adams DO W Date:11/11/23 1.??Macrocytic anemia(Nutrit ional anemia, unspecified: D53.9) 2.??Combined systolic and diastolic heart failure(Unspecified combined systolic (congestive) and diastolic (congestive) heart failure: I50.40) 3.??Frequent falls(Repeated falls: R29.6) 4.??ESRD (end stage renal disease)(End stage renal disease: N18.6) 5.??Type 2 diabetes mellitus with hyperglycemia(Type 2 diabetes mellitus with hyperglycemia: E11.65) 6.??Restless leg syndrome(Restless legs syndrome: G25.81) 7.??Hypertension(Essential (primary) hypertension: I10) 8.??Hyponatremia(Hypo-osmolality and hyponatremia: E87.1) 9.??Hypoalbuminemia(Other disorders of plasma-protein metabolism, not elsewhere classified: E88.09) Anemia(Anemia, unspecified: D64.9) Fall at home(Unspecified fall, initial encounter: W19.XXXA) Fracture of left humerus(Unspecified fracture of shaft of humerus, left arm, initial encounter for closed fracture: S42.302A) Fracture of left humerus(Unspecified fracture of shaft of humerus, left arm, initial encounter for closed fracture: S42.302A) Nasal bone fracture(Fracture of nasal bones, initial encounter for closed fracture: S02.2XXA) Nasal bone fracture(Fracture of nasal bones, initial encounter for closed fracture: S02.2XXA) Unspecified place in unspecified non-institutional (private) residence as the place of occurrence of the external cause(Unspecified place in unspecified non-institutional (private) residence as the place of occurrence of the external cause: Y92.009) Orders: BMP H&H Extracted from: Title:Progress SOAP Note Author:Bryan JAMES Sam ryl W Date:11/10/23 1.??Macrocytic anemia(Nutrit ional anemia, unspecified: D53.9) 2.??Combined systolic and diastolic heart failure(Unspecified combined systolic (congestive) and diastolic (congestive) heart failure: I50.40) 3.??Frequent falls(Repeated falls: R29.6) 4.??ESRD (end stage renal disease)(End stage renal disease: N18.6) 5.??Type 2 diabetes mellitus with hyperglycemia(Type 2 diabetes mellitus with hyperglycemia: E11.65) 6.??Restless leg syndrome(Restless legs syndrome: G25.81) 7.??Hypertension(Essential (primary) hypertension: I10) 8.??Hyponatremia(Hypo-osmolality and hyponatremia: E87.1) 9.??Hypoalbuminemia(Other disorders of plasma-protein metabolism, not elsewhere classified: E88.09) Anemia(Anemia, unspecified: D64.9) Fall at home(Unspecified fall, initial encounter: W19.XXXA) Fracture of left humerus(Unspecified fracture of shaft of humerus, left arm, initial encounter for closed fracture: S42.302A) Fracture of left humerus(Unspecified fracture of shaft of humerus, left arm, initial encounter for closed fracture: S42.302A) Nasal bone fracture(Fracture of nasal bones, initial encounter for closed fracture: S02.2XXA) Nasal bone fracture(Fracture of nasal bones, initial encounter for closed fracture: S02.2XXA) Unspecified place in unspecified non-institutional (private) residence as the place of occurrence of the external cause(Unspecified place in unspecified non-institutional (private) residence as the place of occurrence of the external cause: Y92.009) Orders: cetirizine, 5 mg = 0.5 tab, TAB, By mouth, Daily, Start Date: 11/09/23 12:41:00 CDT, Stop date 02/07/24 8:59:00 CDT, Routine, Disp Location: [facility], GEN [facility] BMP H&H Extracted from: Title:Progress Note, Renal Author:Vivek Loomis Date:11/10/23 Impression and Plan Orders Orders Pharmacy: darbepoetin gume (Order): 60 mcg, INJ, SubQ, QW (once a week), Start Date: 11/10/2023 16:00 CDT, Duration: 90 Days, Stop date 02/02/2024 16:00 CDT, Routine Patient Care: Provide appropriate MAX Medication Guide to patient and document if not done in the last 30 days (Order): Provide appropriate MAX Medication Guide to patient and document if not done in the last 30 days, 11/10/2023 11:40 CDT Initiate Plan (Order): 11/10/2023 11:40 CDT, Erythropoiesis Stimulating Agent (MAX) - NON-Oncology. Extracted from: Title:Progress SOAP Note Author:Sam Adams DO W Date:11/09/23 1.??Macrocytic anemia(Nutrit ional anemia, unspecified: D53.9) 2.??Combined systolic and diastolic heart failure(Unspecified combined systolic (congestive) and diastolic (congestive) heart failure: I50.40) 3.??Frequent falls(Repeated falls: R29.6) 4.??ESRD (end stage renal disease)(End stage renal disease: N18.6) 5.??Type 2 diabetes mellitus with hyperglycemia(Type 2 diabetes mellitus with hyperglycemia: E11.65) 6.??Restless leg syndrome(Restless legs syndrome: G25.81) 7.??Hypertension(Essential (primary) hypertension: I10) 8.??Hyponatremia(Hypo-osmolality and hyponatremia: E87.1) 9.??Hypoalbuminemia(Other disorders of plasma-protein metabolism, not elsewhere classified: E88.09) Anemia(Anemia, unspecified: D64.9) Fall at home(Unspecified fall, initial encounter: W19.XXXA) Fracture of left humerus(Unspecified fracture of shaft of humerus, left arm, initial encounter for closed fracture: S42.302A) Fracture of left humerus(Unspecified fracture of shaft of humerus, left arm, initial encounter for closed fracture: S42.302A) Nasal bone fracture(Fracture of nasal bones, initial encounter for closed fracture: S02.2XXA) Nasal bone fracture(Fracture of nasal bones, initial encounter for closed fracture: S02.2XXA) Unspecified place in unspecified non-institutional (private) residence as the place of occurrence of the external cause(Unspecified place in unspecified non-institutional (private) residence as the place of occurrence of the external cause: Y92.009) Orders: acetaminophen, 650 mg = 2 tab, TAB, By mouth, Q4H, PRN, Pain Mild (1-3) (2nd Line), Start Date: 11/09/23 12:04:00 CDT, Duration: 90 Days, Stop date 02/07/24 12:03:00 CDT, Routine, Disp Location: [facility] 2nd Floor 1, [facility] amLODIPine, 5 mg = 1 tab, TAB, By mouth, Daily, Start Date: 11/09/23 9:00:00 CDT, Duration: 90 Days, Stop date 02/06/24 9:00:00 CDT, Routine, Disp Location: [facility] cetirizine, 10 mg = 1 tab, TAB, By mouth, Daily, Start Date: 11/09/23 12:41:00 CDT, Duration: 90 Days, Stop date 02/07/24 8:59:00 CDT, Routine, Disp Location: [facility] insulin glargine, 55 Units = 0.55 mL, SHEA, SUBQ, Daily, Start Date: 11/09/23 22:00:00 CDT, Duration: 90 Days, Stop date 02/06/24 22:00:00 CDT, Routine, Disp Location: [facility] levothyroxine, 75 mcg = 1 tab, TAB, By mouth, Daily, Start Date: 11/09/23 7:29:00 CDT, Duration: 90 Days, Stop date 02/06/24 6:00:00 CDT, Routine, Disp Location: [facility] metoprolol, 200 mg = 2 tab, SR TAB, By mouth, Daily, Start Date: 11/09/23 9:00:00 CDT, Duration: 90 Days, Stop date 02/06/24 9:00:00 CDT, Routine, Disp Location: [facility] rOPINIRole, 0.25 mg = 1 tab, TAB, By mouth, at bedtime, Start Date: 11/09/23 21:00:00 CDT, Duration: 90 Days, Stop date 02/06/24 21:00:00 CDT, Routine, Disp Location: [facility], GEN DISP Regular diet Extracted from: Title:Nephrology Inpatient Consult Note Author:Sav hammond MD, Qurrat Ul Ain Date:11/08/23 1.??Nasal bone fracture(Frac ture of nasal bones, initial encounter for closed fracture: S02.2XXA) 2.??Fracture of left humerus(Unspecified fracture of shaft of humerus, left arm, initial encounter for closed fracture: S42.302A) 3.??Macrocytic anemia(Nutritional anemia, unspecified: D53.9) 4.??Frequent falls(Repeated falls: R29.6) 5.??ESRD (end stage renal disease)(End stage renal disease: N18.6) 6.??Type 2 diabetes mellitus with hyperglycemia(Type 2 diabetes mellitus with hyperglycemia: E11.65) 7.??Restless leg syndrome(Restless legs syndrome: G25.81) 8.??Hypertension(Essential (primary) hypertension: I10) 9.??Hyponatremia(Hypo-osmolality and hyponatremia: E87.1) 10.??Hypoalbuminemia(Other disorders of plasma-protein metabolism, not elsewhere classified: E88.09) Orders: albumin human, 25 g = 100 mL, INJ, IVP, as needed, PRN, Blood Pressure Control, Start Date: 11/08/23 15:07:00 CDT, Duration: 90 Days, Stop date 02/06/24 15:06:00 CDT, Routine, Disp Location: [facility], GEN DISP alteplase, 2 mg = 2 mL, INJ, DIAL, as needed, PRN, See Comment Note, Start Date: 11/08/23 15:07:00 CDT, Duration: 90 Days, Stop date 02/06/24 15:06:00 CDT, Routine, Disp Location: [facility], GEN DISP lidocaine, 5 mg, 0.5 mL, INJ, Route: IDERM, as needed, PRN, See Comment Note, Start Date: 11/08/23 15:07:00 CDT, Duration: 90 Days, Stop date: 02/06/24 15:06:00 CDT, Routine, Disp Location: [facility], GEN DISP Pharmacy Consult - Dialysis Patient, 1 EA, Unspecified, UNSPECIFIED-See comments, Unscheduled, Start Date: 11/08/23 15:07:00 CDT, Duration: 90 Days, Stop date 02/06/24 15:06:00 CDT, Routine, Disp Location: [facility] RX Sodium Chloride 0.9% intravenous solution, 200 mL, IVPB, Route: IVPB, as needed, PRN, Blood Pressure Control, Start Date: 11/08/23 15:07:00 CDT, Duration: 90 Days, Stop date: 02/06/24 15:06:00 CDT, Routine, Rate= 0 ml/hr, Infuse Over: 0 hr, Total Volume ml = 200, Disp Location: [facility] sodium citrate, 3 mL, INJ, Route: DIAL, as needed, PRN, Flush, Start Date: 11/08/23 15:07:00 CDT, Duration: 90 Days, Stop date: 02/06/24 15:06:00 CDT, Routine, Rate= 180 ml/hr, Infuse Over: 1 min, Total Volume ml = 3, Disp Location: [facility], GEN DISP Blood Pressure, Increase frequency if unstable Consent, Hemodailysis Dialysis Potassium Bath Protocol Hemodialysis Hepatitis Bc Ab IgM Hepatitis Bs Antibody Hepatitis Bs Antigen Isolated Ultrafiltration Notify Provider, Notify provider if systolic BP greater than 200mmHg or if diastolic BP greater than 120mmHg Nursing Communication Order, If patient is being transferred to outpatient dialysis center, may place order for TB skin test if one has not been completed in the last 12 months Nursing Communication Order, If susceptible, Hepatitis Bs Antibody is less than 10mlU/ml, Repeat Hepatitis Bs Antigen every month Nursing Communication Order, HOLD heparin bolus when bleeding, suspected bleeding, reported bleeding, active bleeding, immediate post-operative (24hr), immediate post catheter placement (24hr), eye surgery or major dental procedures (i.e. tooth extraction) Orthostatic Vital Signs, Post dialysis unless patient is wheelchair bound or in a bed Oxygen Protocol, Adult Pulse Rate, Increase frequency if unstable Temperature, Pre and Post Dialysis Vital Signs, Pre Dialysis ? ASSESSMENTS? 1. END-STAGE??RENAL DISEASE??ON DIALYSIS Tuesday 2.??Fall/nose bone fracture 3.??Edema 4. 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 7. Hypertension ?? PLAN? Dialysis planned for a.m.??with fluid removal Plan??is to avoid??anticoagulation during??dialysis due to recent??fall and fracture Start Lasix??80 mg p.o. daily Start??oral iron Start Aranesp??per??protocol?? Start Nepro??1??can b.i.d. ?? Care plan discussed with??patient's??mother in presence??of patient's at bedside, all questions answered,??she expressed??understanding ?? Thank??you for letting??us??participate??in the care of??this interesting??patient we will continue to follow??along with??primary team ? Extracted from: Title:Admission H&P Note Author:Cesar Mast Date:11/08/23 1.??Nasal bone fracture(Frac ture of nasal bones, initial encounter for closed fracture: S02.2XXA) 2.??Fracture of left humerus(Unspecified fracture of shaft of humerus, left arm, initial encounter for closed fracture: S42.302A) 3.??Macrocytic anemia(Nutritional anemia, unspecified: D53.9) 4.??Frequent falls(Repeated falls: R29.6) 5.??ESRD (end stage renal disease)(End stage renal disease: N18.6) 6.??Type 2 diabetes mellitus with hyperglycemia(Type 2 diabetes mellitus with hyperglycemia: E11.65) 7.??Restless leg syndrome(Restless legs syndrome: G25.81) 8.??Hypertension(Essential (primary) hypertension: I10) 9.??Hyponatremia(Hypo-osmolality and hyponatremia: E87.1) 10.??Hypoalbuminemia(Other disorders of plasma-protein metabolism, not elsewhere classified: E88.09) ?? Plan of care: -ENT consulted in the emergency department. Appreciate recommendations -Orthopedics consulted for concern of chronic left humeral fracture. ??Appreciate recommendations Sling was recommended in the emergency department. -Nephrology consulted for dialysis (Tuesday, Tuesday, and Tuesday) schedule -Echocardiogram ordered -H&H every 8 hours ordered to trend hemoglobin. Transfuse to keep hemoglobin > 7.0 -Iron, TIBC, ferritin, and percent transferrin ordered. Vitamin B12 serum level ordered ? -Right foot x-ray ordered, as family??member reported the patient has a sore on their foot ?? -Medium dose sliding scale as indicated and HgA1c ordered -Miconazole ordered for skin irritation below abdominal fold bilaterally -Telemetry ordered -Ammonia level ordered. Morning labs ordered -Speech therapy consultation ordered -SWOT team consulted -Physical and occupational therapy ordered -Social work consulted ? DVT prophylaxis: Sequential compression devices Code status: Full, discussed with patient's son PCP: Vivienne Schulz NP ?? Plan in collaboration with Dr. Adams. ?? ZUHAIR Flores ? Addendum by Sam Adams DO on November 09, 2023 07:16:08 CDT Patient seen independently of Kim MOFFETT. Case and plan discussed and agreed upon. Patient resting in bed, tired after medications for pain. History limited. On exam heart RRR. Lungs CTAB. Abrasion on forehead, bruising about face. ?? PLAN: Follow Hgb, holding Plavix for now. Iron studies.??Appreciate ENT, Ortho, Nephro consults. Advance diet with no immediate surgery planned. PRN for pain as above. No changes to above plan, directed by myself. ?? Extracted from: Title:Fall Author:Hayden Bolton Date:10/11 Impression and Plan Diagnosis Anemia (LUI34-QZ D64.9) Fall at home (GQO39-ZB W19.XXXA) Fracture of left humerus (PRE46-IX S42.302A) Generalized weakness (RMT35-AH R53.1) Nasal bone fracture (OAU88-SG S02.2XXA) Calls-Consults - 11/08/2023 11:45:00 , Dario Araujo DO. - 11/08/2023 12:15:00 , Orthopedic Trauma. Plan Condition: Stable. Disposition: Admit time 11/08/2023 11:57:00, Admit to Inpatient Unit, Gio Adams DO Counseled: Patient, Regarding diagnosis, Regarding diagnostic results, Regarding treatment plan, Patient indicated understanding of instructions. Notes: Patient was seen and evaluated/treated in conjunction with Dr. Newton. Medications Auryxia 210 mg oral tablet 420 mg = 2 tab, By mouth, with meals, 1 tab with snacks, Refill(s) 0 Start Date: 11/08/23 Status: Ordered carbidopa-levodopa 25 mg-100 mg oral tablet 0.5 tab, By mouth, as directed, prior to dialysis 3 days/week Start Date: 11/09/23 Status: Ordered cetirizine 10 mg, By mouth, BID, Refill(s) 0 Start Date: 04/19/18 Status: Ordered darbepoetin gume 60 mcg/0.3 mL injectable solution 60 mcg = 0.3 mL, SubQ, QW (once a week), Refill(s) 0, INJ Start Date: 11/15/23 Status: Ordered gabapentin 100 mg oral capsule 100 mg = 1 cap, By mouth, TID, Refill(s) 0 Start Date: 11/08/23 Status: Ordered HYDROmorphone 2 mg oral tablet 1 mg, = 0.5 tab, By mouth, Q8H, PRN Pain Severe (7-10), 5 Days, 15 tab, 0, 0, 11/20/23 8:00:00 CDT,Substitution Permitted Start Date: 11/15/23 Stop Date: 11/20/23 Status: Ordered iron polysaccharide 150 mg (elemental iron) oral capsule 150 mg = 1 cap, By mouth, Daily, # 30 cap, Refill(s) 0, Pharmacy: [facility], [place]-[id number], SR CAP, 1 cap By mouth Daily, 91.9, 11/13/23 6:14:00 CDT, kg, Weight (kg) (Clinical) Start Date: 11/15/23 Status: Ordered Lasix 80 mg oral tablet 80 mg = 1 tab, By mouth, Daily, Refill(s) 0, TAB Start Date: 11/15/23 Status: Ordered levothyroxine 50 mcg (0.05 mg) oral tablet 50 mcg = 1 tab, By mouth, Daily Start Date: 11/09/23 Status: Ordered Lexapro 20 mg oral tablet 20 mg = 1 tab, By mouth, Daily, # 30 tab, Refill(s) 0 Start Date: 11/21/18 Status: Ordered omeprazole 20 mg oral delayed release capsule 20 mg = 1 cap, By mouth, Daily Start Date: 11/09/23 Status: Ordered pantoprazole 40 mg oral delayed release tablet 40 mg = 1 tab, By mouth, Daily, # 30 tab, Refill(s) 0, Pharmacy: [facility], NCPDP_[id number], TAB, 1 tab By mouth Daily, 91.9, 11/13/23 6:14:00 CDT, kg, Weight (kg) (Clinical) Start Date: 11/15/23 Status: Ordered Plavix 75 mg oral tablet 75 mg = 1 tab, By mouth, Daily Start Date: 11/09/23 Status: Suspended RenaPlex-D oral tablet 1 tab, By mouth, Daily Start Date: 11/09/23 Status: Ordered rOPINIRole 0.5 mg oral tablet 0.5 mg = 1 tab, By mouth, at bedtime Start Date: 11/09/23 Status: Ordered rosuvastatin 20 mg oral tablet 20 mg = 1 tab, By mouth, Daily Start Date: 11/09/23 Status: Ordered Toprol-XL 50 mg oral tablet, extended release 50 mg = 1 tab, By mouth, Daily Start Date: 11/09/23 Status: Ordered Voltaren 1% topical gel See Instructions, 2 g, Refill(s) 0, Instructions Replace Required Details Start Date: 11/08/23 Status: Ordered Problem List Condition Confirmation Course Effective Dates Status H ealth Status Informant ESRD (end stage renal disease) Confirmed Active Type 2 diabetes mellitus with hyperglycemia Confirmed Active Hypertension Confirmed Active Restless leg syndrome Confirmed Active Procedures Procedure Date Related Diagnosis Body Site Status Fistula to Right arm 10/2020 Comp leted Neck fusion 2014 Completed Appendectomy 1999 Completed cholecystectomy 1999 Completed Tonsillectomy 1979 Completed Arteriovenous fistula, left Completed bilateral carpal tunnel 1 Completed x 2 2 Completed graft to left arm Complet ed hemodialysis catheter placement Completed 2014 Results Laboratory List Name Date CMP 11/16/23 H&H 11/16/23 Phosphorus 11/16/23 BMP 11/15/23 H&H 11/15/23 BMP (Basic Metabolic Panel) 11/14/23 CBC-d 11/14/23 Phosphorus 11/14/23 zCBC Automated Diff 11/14/23 CBC-d 11/09/23 CMP 11/09/23 zCBC Automated Diff 11/09/23 Ammonia 11/08/23 Hgb A1C (Glyc Hgb) 11/08/23 Transferrin, Serum (Transferrin) 11/08/23 zTroponin I - HS 2 Hr (zTrop I HS 2Hr) CBC-d 11/08/23 CMP 11/08/23 Ferritin 11/08/23 Hepatitis Bc Ab IgM (HBcore IgM) 11/08/23 Hepatitis Bs Antibody (HBsAb) 11/08/23 Hepatitis Bs Antigen (HBsAg) 11/08/23 Iron and TIBC (Iron&TIBC) 11/08/23 Troponin I - Series High-Sensitivity (Tr op I SeriesHS) 11/08/23 Vitamin B12 Assay ([id number]) 11/08/23 zCBC Automated Diff 11/08/23 Most recent to oldest [Reference Range]: 1 2 3 Bedside Glucose 112 mg/dL 1 (11/16/23 5:16 PM) 101 mg/dL 2 (11/16/23 11:58 AM) 112 mg/dL 3 (11/16/23 7:08 AM) [address] Ave. Glucose 111 mg/dL *NA* (11/08/23 4:40 PM) Anion Gap [2-15 mEq/L] 10 mEq/L (11/16/23 1:58 PM) 8 mEq/L (11/15/23 1:19 PM) 9 mEq/L (11/14/23 2:02 AM) Troponin I HS Delta 0-2 hr [<=3 ng/L] 0 ng/L 4 (11/08/23 12:40 PM) Troponin I HS [<=10 ng/L] 9 ng/L (11/08/23 12:40 PM) 9 ng/L (11/08/23 10:27 AM) Hepatitis B Core IgM Ab [Nonreactive] Nonreactive (11/08/23 10:27 AM) Hepatitis B Surface Ab [Nonreactive] Reactive *ABN* (11/08/23 10:27 AM) Hepatitis B Surface Ag by EI A [Nonreactive] Nonreactive (11/08/23 10:27 AM) HBsAb Conc [>=10.0 mlU/mL] 51.6 mlU/mL (11/08/23 10:27 AM) eGFR CKD-EPI [>=61 mL/min/1.73 m2] 39 mL/min/1.73 m2 *LOW* (11/16/23 1:58 PM) 17 mL/min/1.73 m2 *LOW* (11/15/23 1:19 PM) 11 mL/min/1.73 m2 *LOW* (11/14/23 2:02 AM) Transferrin Qst [188-341 mg/dL] 133 mg/dL 5 *LOW* (11/08/23 4:40 PM) Glucose, Serum/Plasma [70-10 0 mg/dL] 166 mg/dL *HI* (11/16/23 1:58 PM) 125 mg/dL *HI* (11/15/23 1:19 PM) 102 mg/dL *HI* (11/14/23 2:02 AM) WBC [4.8-10.8 Thous/mm3] 6.4 Thous/mm3 (11/14/23 2:02 AM) 6.6 Thous/mm3 (11/09/23 6:07 AM) 7.7 Thous/mm3 (11/08/23 10:27 AM) Hct [37.0-47.0 %] 29.1 % *LOW* (11/16/23 1:58 PM) 28.2 % *LOW* (11/15/23 1:19 PM) 27.6 % *LOW* (11/14/23 2:02 AM) Hgb [12.0-16.0 g/dL] 9.2 g/dL *LOW* (11/16/23 1:58 PM) 8.9 g/dL *LOW* (11/15/23 1:19 PM) 8.6 g/dL *LOW* (11/14/23 2:02 AM) RBC [4.20-5.40 Million/mm3] 2.68 Million /mm3 *LOW* (11/14/23 2:02 AM) 2.38 Million/mm3 *LOW* (11/09/23 6:07 AM) 2.35 Million/mm3 *LOW* (11/08/23 10:27 AM) MCV [80.0-100.0 fl] 103.0 fl *HI* (11/14/23 2:02 AM) 103.8 fl *HI* (11/09/23 6:07 AM) 102.1 fl *HI* (11/08/23 10:27 AM) MCH [26.0-34.0 pg] 32.1 pg (11/14/23 2:02 AM) 31.5 pg (11/09/23 6:07 AM) 31.9 pg (11/08/23 10:27 AM) MCHC [31.0-36.5 g/dL] 31.2 g/dL (11/14/23 2:02 AM) 30.4 g/dL *LOW* (11/09/23:07 AM) 31.3 g/dL (11/08/23 10:27 AM) RDW [10.4-14.4 %] 16.6 % *HI* (11/14/23 2:02 AM) 16.4 % *HI* (11/09/23 6:07 AM) 16.4 % *HI* (11/08/23 10:27 AM) Platelets [130-440 Thous/mm3] 303 Thous/ mm3 (11/14/23 2:02 AM) 246 Thous/mm3 (11/09/23 6:07 AM) 282 Thous/mm3 (11/08/23 10:27 AM) MPV [9.4-12.4 fl] 9.8 fl (11/14/23 2:02 AM) 9.7 fl (11/09/23 6:07 AM) 9.8 fl (11/08/23 10:27 AM) AutoNeutrophil [43.0-78.0 %] 74.6 % (11/14/23 2:02 AM) 83.6 % *HI* (11/09/23 6:07 AM) 85.8 % *HI* (11/08/23 10:27 AM) AutoLymphs [20.0-40.0 %] 12.0 % *LOW* (11/14/23 2:02 AM) 9.2 % *LOW* (11/09/23 6:07 AM) 6.3 % *LOW* (11/08/23 10:27 AM) AutoMono [2.0-10.0 %] 12.9 % *HI* (11/14/23 2:02 AM) 6.8 % (11/09/23 6:07 AM) 7.4 % (11/08/23 10:27 AM) Ammonia [0-33 umol/L] <10 umol/L (11/08/23 4:40 PM) AutoEo [0.0-7.0 %] 0.0 % (11/14/23 2:02 AM) 0.0 % (11/09/23 6:07 AM) 0.0 % (11/08/23 10:27 AM) Sodium [136-145 mEq/L] 135 mEq/L *LOW* (11/16/23 1:58 PM) 135 mEq/L *LOW* (11/15/23 1:19 PM) 128 mEq/L *LOW* (11/14/23 2:02 AM) Potassium [3.5-5.1 mEq/L] 3.6 mEq/L (11/16/23 1:58 PM) 4.0 mEq/L (11/15/23 1:19 PM) 4.5 mEq/L (11/14/23 2:02 AM) Chloride [98-107 mEq/L] 99 mEq/L (11/16/23 1:58 PM) 99 mEq/L (11/15/23 1:19 PM) 97 mEq/L *LOW* (11/14/23 2:02 AM) AbsNeut [2.0-8.0 Thous/mm3] 4.8 Thous/mm 3 (11/14/23 2:02 AM) 5.5 Thous/mm3 (11/09/23 6:07 AM) 6.6 Thous/mm3 (11/08/23 10:27 AM) CO2 [20-31 mEq/L] 26 mEq/L (11/16/23 1:58 PM) 28 mEq/L (11/15/23 1:19 PM) 22 mEq/L (11/14/23 2:02 AM) BUN [7-18 mg/dL] <5 mg/dL *LOW* (11/16/23 1:58 PM) 13 mg/dL (11/15/23 1:19 PM) 10 mg/dL (11/14/23 2:02 AM) Creatinine [0.55-1.02 mg/dL] 1.53 mg/dL *HI* (11/16/23 1:58 PM) 3.09 mg/dL *HI* (11/15/23 1:19 PM) 4.29 mg/dL *HI* (11/14/23 2:02 AM) AbsLymph [1.0-4.0 Thous/mm3] 0.8 Thous/m m3 *LOW* (11/14/23 2:02 AM) 0.6 Thous/mm3 *LOW* (11/09/23 6:07 AM) 0.5 Thous/mm3 *LOW* (11/08/23 10:27 AM) AbsMono [0.1-1.0 Thous/mm3] 0.8 Thous/mm 3 (11/14/23 2:02 AM) 0.4 Thous/mm3 (11/09/23 6:07 AM) 0.6 Thous/mm3 (11/08/23 10:27 AM) Bilirubin, Total [0.2-1.0 mg/dL] 0.6 mg/dL (11/16/23 1:58 PM) 0.3 mg/dL (11/09/23 6:07 AM) 0.3 mg/dL (11/08/23 10:27 AM) AbsEo [0.0-0.5 Thous/mm3] 0.0 Thous/mm3 (11/14/23 2:02 AM) 0.0 Thous/mm3 (11/09/23 6:07 AM) 0.0 Thous/mm3 (11/08/23 10:27 AM) AbsBaso [0.0-0.2 Thous/mm3] 0.0 Thous/mm 3 (11/14/23 2:02 AM) 0.0 Thous/mm3 (11/09/23 6:07 AM) 0.0 Thous/mm3 (11/08/23 10:27 AM) AutoBaso [0.0-2.5 %] 0.2 % (11/14/23 2:02 AM) 0.2 % (11/09/23 6:07 AM) 0.1 % (11/08/23 10:27 AM) Calcium [8.3-10.6 mg/dL] 7.9 mg/dL *LOW* (11/16/23 1:58 PM) 9.8 mg/dL (11/15/23 1:19 PM) 9.1 mg/dL (11/14/23 2:02 AM) Protein Total [6.4-8.5 g/dL] 7.4 g/dL (11/16/23 1:58 PM) 6.1 g/dL *LOW* (11/09/23 6:07 AM) 6.7 g/dL (11/08/23 10:27 AM) Albumin [3.4-5.0 g/dL] 3.7 g/dL (11/16/23 1:58 PM) 2.4 g/dL *LOW* (11/09/23 6:07 AM) 2.9 g/dL *LOW* (11/08/23 10:27 AM) AST [15-37 U/L] 17 U/L (11/16/23 1:58 PM) 12 U/L *LOW* (11/09/23 6:07 AM) 18 U/L (11/08/23 10:27 AM) Alk Phos [45-117 U/L] 85 U/L (11/16/23 1:58 PM) 83 U/L (11/09/23 6:07 AM) 86 U/L (11/08/23 10:27 AM) Phosphorus [2.4-5.1 mg/dL] 1.4 mg/dL *LOW* (11/16/23 1:58 PM) 4.3 mg/dL (11/14/23 2:02 AM) ALT [10-49 U/L] <7 U/L *LOW* (11/16/23 1:58 PM) <7 U/L *LOW* (11/09/23 6:07 AM) <7 U/L *LOW* (11/08/23 10:27 AM) Ferritin [8.0-252.0 ng/mL] 2239.9 ng/mL *HI* (11/08/23 10:27 AM) HgbA1c [4.2-6.4 %] 5.5 % (11/08/23 4:40 PM) Iron, Serum [50-170 mcg/dL] 30 mcg/dL *LOW* (11/08/23 10:27 AM) TIBC [250-425 ug/dL] 163 ug/dL *LOW* (11/08/23 10: AM) Percent Saturation Transferrin [20-55 %] 18 % *LOW* (11/08/23 10:27 AM) Vit B12 Assay [193-986 pg/mL] 410 pg/mL (11/08/23 10:27 AM) Imm. Grans % [0-5 %] <5 % (11/14/23 2:02 AM) <5 % (11/09/23 6:07 AM) <5 % (11/08/23 10:27 AM) Imm. Grans # [0.0-0.5 Thous/mm3] <0.5 Thous/mm3 (11/14/23 2:02 AM) <0.5 Thous/mm3 (11/09/23 6:07 AM) <0.5 Thous/mm3 (11/08/23 10:27 AM) ANC-AbsNeutCount 4.8 Thous/mm3 *NA* (11/14/23 2:02 AM) 5.5 Thous/mm3 *NA* (11/09/23 6:07 AM) 6.6 Thous/mm3 *NA* (11/08/23 10:27 AM) 1Result Comment: Notifshannan URBINA/ Performed at:[address], [address] Reference Ranges: Age 0 - 24 hours: 45 - 115 mg/dL Age 24 hours - 30 days: 55 - 115 mg/dL Age > 30 days: 70 - 100 mg/dL Critical Results Requiring Immediate Notification: Age <72 Hours: <40 or >350 mg/dL Age >72 Hours: <50 or >400 mg/dL 2Result Comment: Bianka URBINA/ Performed at:[address], [address] Reference Ranges: Age 0 - 24 hours: 45 - 115 mg/dL Age 24 hours - 30 days: 55 - 115 mg/dL Age > 30 days: 70 - 100 mg/dL Critical Results Requiring Immediate Notification: Age <72 Hours: <40 or >350 mg/dL Age >72 Hours: <50 or >400 mg/dL 3Result Comment: Notify RN/DR Performed at:[facility], [address] [facility], [place], [address] Reference Ranges: Age 0 - 24 hours: 45 - 115 mg/dL Age 24 hours - 30 days: 55 - 115 mg/dL Age > 30 days: 70 - 100 mg/dL Critical Results Requiring Immediate Notification: Age <72 Hours: <40 or >350 mg/dL Age >72 Hours: <50 or >400 mg/dL 4Result Comment: Calculated by rule: [id number]_[id number]_[id number]_DELTA 5Result Comment: Lab test performed by: [facility]: [id number] [facility] [address] [id number] Raj Bahena M.D., Ph.D.,Director of Laboratories Radiology Reports * Exam Date Time Procedure Performing Provider Status 11/08/23 10:[address] Facial Bones Adele Higgins; Dwight (Verified) Notes: (CT Facial Bones) Reason For Exam: Fall on blood thinners with hematoma. REPORT CT Facial Bones FACIAL CT WITHOUT CONTRAST CLINICAL STATEMENT: Status post fall from chair. TECHNIQUE: Contiguous axial images of the maxillofacial structures were obtained without the use ofintravenous contrast. Multiplanar reformations were created. This CT study used one or more of the following dose reduction techniques: Automated exposure control, Adjustment of the mA and/or kV according to patient size, Use of iterative reconstruction technique. Patient radiation dose is recordedfor each exam using dose tracking software. COMPARISON: No previous facial CT is available for comparison at this institution. FINDINGS: Repeat series acquired. Mid frontal superficial hematoma. Prenasal induration. Suspect linear fracture through the nasal bones and at the junction with the nasal septum. Nasofrontal suture is grossly intact. Left greater than right periorbital induration. No significant proptosis. Lens replacement. No coalescent retrobulbar hematoma. No asymmetric enlargement of the extraocular muscles. No depression of the orbital floors or medialization of the lamina papyracea. No displaced fractures of the bilateralsuperior or lateral orbital rims. Floors of the optic nerve canals is thinner on the right. Bifrontal sinuses are hypoplastic. Soft tissue thickening along the anterior/cartilaginous portion of the nasal septum. Right katelin bullosa and left katelin lamella. No destruction of the nasal turbinates. Anterior skull base is grossly intact; no pneumocephalus in the anterior cranial fossa. No air- fluid/blood levels in the paranasal sinuses. No dislocation of the temporomandibular joints. No displaced fractures of the mandible. The patientis edentulous. Zygomatic arches and plates are intact. Small torus palatini. Pterygopalatine fossa are grossly normal. No nasopharyngeal mass. Fatty septum is situated midline.No gross mass identified within the tonsillar fossa or lingual tonsils. No abnormal enlargement of the submandibular or parotid glands. No hematoma within the customer contact specialist spaces. Atherosclerotic calcification is at the carotid bifurcations. Kissing carotid configuration. Please refer to trustee of estate CT for detailed discussion of the intracranial and cervical spine findings. No expansion or destruction of the sella turcica. IMPRESSION: 1. Mid frontal superficial hematoma and prenasal induration. Suspect linear fracture through the nasal bones and at the junction with the nasal septum. Electronically signed by: Dr Vic Moss 11/09/2023 7:37 AM Vic Moss MD Signed 11/09/23 07:37:49 (Electronic Signature) Real Estate Sales Agent [facility] Technologist [facility] * Exam Date Time Procedure Performing Provider Status 11/08/23 10:[address] Cervical Spine wo Contrast Adele Higgins (Verified) Notes: (CT Cervical Spine wo Contrast) Reason For Exam: Fall on blood thinners with hematoma. REPORT CT Cervical Spine wo Contrast CT CERVICAL SPINE WITHOUT CONTRAST CLINICAL STATEMENT: Status post fall. Trauma. TECHNIQUE: Contiguous axial images of the cervical spine were obtained without the administration of intravenous contrast. Multiplanar reformations were created. This CT study used one or more of thefollowing dose reduction techniques: Automated exposure control, Adjustment of the mA and/or kV according to patient size, Use of iterative reconstruction technique. Patient radiation dose is recorded for each exam using dose tracking software. COMPARISON: No previous cervical spine CT is available for comparison at this institution. FINDINGS: Images were obtained by noise and quantum mottling. Streak artifact arising from C5 to C5 to C7 anterior interbody fusion. No evidence of hardware fracture. Evidence of interbody fusion across C5-C6 and C6- C7. No significant fusion of the posterior elements. Straightening of the normal cervical lordosis, which may positional or secondary to spasm. Ossifiedat the atlantoaxial articulation. Atlantodental and basion dental intervals are within normal limits. No substantial cerebellar tonsillar ectopia or spondylolisthesis. No acute displaced fractures ofthe odontoid process. No widening of the atlantooccipital or atlantoaxial joints. No acute compression fracture identified. No diastases of the disc spaces. Multilevel facet arthropathy. No acute displaced fractures of the spinous processes. If there is focal point tenderness, consider MRI. 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 Likely cerumen/debris in the external auditory canals. Opacification/fluid along the inferior aspect of the right mastoid air cells. Atherosclerotic calcifications in the neck vasculature. Kissing carotid configuration. No apical pneumothorax. 2 mm nodule in the right lung apex. IMPRESSION: Images degraded by noise and quantum mottling. No evidence of acute osseous injury of the cervical spine, given limitations of study. Electronically signed by: Dr Vic Moss 11/09/2023 7:37 AM Vic Moss MD Signed 11/09/23 07:37:34 (Electronic Signature) Real Estate Sales Agent [facility] Technologist [facility] * Exam Date Time Procedure Performing Provider Status 11/08/23 10:[address] Head wo Contrast Adele Higgins (Verified) Notes: (CT Head wo Contrast) Reason For Exam: Fall on blood thinners with hematoma. REPORT CT Head wo Contrast CT HEAD WITHOUT IV CONTRAST CLINICAL STATEMENT: Status post fall from chair. Trauma. TECHNIQUE: Contiguous axial images were obtained from the base of the skull to the vertex without the use of intravenous contrast. This CT study used one or more of the following dose reduction techniques: Automated exposure control, Adjustment of the mA and/or kV according to patient size, Use of iterative reconstruction technique. This is documented with the patient images in PACS, part of the medical record. COMPARISON: No previous head CT is available for comparison at this institution. FINDINGS: Zone of encephalomalacia involving the right posterior insula, parietal, and temporal lobes, with the curvilinear/gyriform-like calcification, likely from prior infarction. Mild ex vacuo dilatation of the adjacent ventricular system. Other. Ventricular and subcortical white matter hypodensities arenonspecific but can be seen in the setting of mild chronic microvascular ischemic changes. No hydrocephalus. No midline shift at the confluence of foramen of Jeferson. No uncal herniation. There is no evidence of acute large vessel infarction, hemorrhage, or parenchymal masslike lesion. No loss of the cortical insular ribbon. The basilar cisterns are patent. No acute/hyperdense intra-axial or extra-axial fluid collection is identified. No suspicion of a focally aggressive osseous lesion. No depressed calvarial fracture. Mid frontal superficial hematoma and paranasal soft tissue induration/contusion; please refer to trustee of estate facial CT. Rightward nasal septal deviation. Mucosal thickening along the anterior aspect of the nasal septum.No air-fluid levels in the included paranasal sinuses. Bifrontal sinuses are hypoplastic. Mastoid cells are aerated. Atherosclerotic calcification intracranial situation. Lens replacement. The patient is edentulous. Gripper Attacher view shows fracture of the left humeral neck. IMPRESSION: 1. No CT evidence for acute intracranial abnormality. 2. Zone of encephalomalacia involving the right posterior insula, parietal, and temporal lobes, with curvilinear/gyriform-like calcification, likely from prior infarction and/or hemorrhage. Mild ex vacuo dilatation of the adjacent ventricular system; no hydrocephalus. 3. Gripper Attacher view shows fracture of the left humeral neck. 4. Mid frontal superficial hematoma; please refer to trustee of estate facial CT. Electronically signed by: Dr Vic Moss 11/09/2023 7:37 AM Vic Moss MD Signed 11/09/23 07:37:21 (Electronic Signature) Real Estate Sales Agent [employer] Technologist [facility] * Exam Date Time Procedure Performing Provider Status 11/08/23 6:53 PM XR Shoulder 3 View Left Routine Andrei Coyle; Auth (Verified) Notes: (XR Shoulder 3 View Left Routine) Reason For Exam: L proximal humerus fx XR Shoulder 3 View Left Routine PROCEDURE INFORMATION: Exam: XR Left Shoulder Exam date and time: 11/08/2023 6:02 PM Age: 58 years old Clinical indication: Fracture of nasal bones, initial encounter for closed fracture; Nutritional anemia, unspecified; Type 2 diabetes mellitus with hyperglycemia; Hypo-osmolality and hyponatremia; Other disorders of plasma-protein metabolism, not elsewhere classified; Restless legs syndrome; Essential (primary) hypertension; End stage renal disease; Dysphagia, oropharyngeal phase; Repeated falls; Unspecified fracture of shaft of humerus, left arm, initial encounter for closed fracture; Additional info: L proximal humerus FX TECHNIQUE: Imaging protocol: Radiologic exam of the left shoulder. Views: 2 or more views. COMPARISON: DX XR Humerus 2 View Left 11/08/2023 10:58 AM FINDINGS: Bones/joints: No change in appearance of the comminuted impacted vertex anterior angulated fracture of the head and neck. The shoulder is otherwise unremarkable. Soft tissues: Normal. IMPRESSION: Unchanged proximal humeral fracture. No other findings in the shoulder. Electronically signed by: Danny Lira MD, [facility], 11/09/2023 14:36 Pankaj DUNAWAY, Danny Horowitz Signed 11/09/23 14:36:41 (Electronic Signature) Technologist ARACELI,ERASMO REPORT * Exam Date Time Procedure Performing Provider Status 11/08/23 3:36 PM ECHO Adult Complete Contributor_ system, LUMEDX_RESULTS; Auth (Verified) Notes: (ECHO Adult Complete) Reason For Exam: Fall at home, has frequent falls. Unclear etiology [facility] Resting Report [facility] [address] [place] [address] Transthoracic Echocardiogram Patient (Last, First, Middle): JEREMIAH KAISER ROSE Gender: Female CMRN: [id number] Date of : 1965 [age]: [age] Procedure Date: 11/08/2023 Location: Height: 152.00 cm Weight: 90.00 kg BSA: 1.86 m2 Heart Rate: bpm BP: 132 / 60 mmHg Digital Imager: MODE Shi MD: Alejandrina MOFFETT Classified Advertising Clerk: Harika Yoon MD Indications: Fall at home, has frequent falls. Unclear etiology Conclusions: - 1. The left ventricular systolic function is markedly reduced at 37%. 2. Moderate pulmonary hypertension with an RVSP of 56 mmHg. 3. No priors. Findings Procedure Information The quality of the study was technically difficult. Definity was administered per protocol without apparent complications. Left Ventricle Normal left ventricular cavity size. There is normal left ventricular wall thickness. The left ventricular systolic function is moderately decreased. The calculated ejection fraction is 37% by biplane method. There is moderate global hypokinesis. E/E prime ratio is >15, consistent with elevated filling pressures. Evidence suggests (grade I) diastolic dysfunction with abnormal relaxation pattern. Right Ventricle Normal right ventricular cavity size and systolic function. Atria The left atrium is normal in size. The right atrium is normal in size. Aortic Valve Normal aortic valve structure and function. There is a trileaflet aortic valve. There is mild calcification of the aortic valve. There is mild sclerosis of the aortic valve. Mitral Valve There is mild anterior and posterior mitral leaflet thickening. There is mild mitral annular calcification. There is trace mitral valve regurgitation. Pulmonic Valve The pulmonic valve was not well visualized. There is trace pulmonic valve regurgitation. Tricuspid Valve There is mild tricuspid valve regurgitation. Moderate pulmonary hypertension is present. Great Vessels No dilatation of the aortic root. The visualized portions of the pulmonary artery and branches are normal. Venous The inferior vena cava is normal in size and collapses greater than 50% with inspiration. Pericardium/Pleural Normal pericardial structure. Measurements 2D Linear Measurements RVIDd: 3.20 RVIDd Mid: 2.50 RVIDd Index: 1.72 IVSd: 0.90 0.6-0.9/0.6-1.0 cm LVIDd: 4.40 3.9-5.3/4.2-5.9 cm LVIDd Index: 2.37 2.4-3.2/2.2-3.1 cm/m2 LVIDs: 3.90 2.0-3.6 cm LVPWd: 1.00 0.7-1.1 cm Ao Root: 2.70 2.1-3.5 cm LA Diam: 3.50 2.7-3.8/3.0-4.0 cm LAIDs Index: 1.88 1.5-2.3 cm/m2 LV Mass: 171.46 67-162/88-224 g LV Mass Index: 92.18 43-95/49-115 g/m2 RA Area,s: 11.40 LA Area,s: 13.70 2D Volumes LA ESV BP: 27.00 LA ESV BP Index: 14.50 LA ESV MOD A2C: 21.40 LA ESV MOD A2C Index: 11.50 LA ESV MOD A4C: 33.00 LA ESV MOD A4C Index: 17.70 2D Systolic Function EF 4C: 37.10 >55% EF 2C: 37.10 >55% EF BiP: 37.20 >55% Mitral Valve MV Pk E: 1.15 MV PK A: 0.61 MV Decel Time: 148.00 E/A: 1.90 E'Lateral: 6.60 E'Medial: 4.10 E/E' Med: 28.00 E/E' Lat: 17.40 Aortic Valve AoV Pk Burke: 1.30 AoV Pk Grad: 8.00 Diastolic Function MV Pk E: 1.15 MV Pk A: 0.61 E/A: 1.90 E'Medial: 4.10 E/E' Med: 28.00 E' Laterial: 6.60 E/E' Lat: 17.40 Tricuspid Valve TR Pk Burke: 2.86 TR Pk Grad: 54.00 RVSP: 57.00 Great Vessels Aorta Ao Root-2D: 2.70 2.0-3.7 cm Ao Asc: 2.80 2.1-3.4 cm Updated by Harika Yoon MD on 4:50 PM with Status of Final [id number] electronically signed on 11/08/2023 4:50:25 PM with status of Final * Exam Date Time Procedure Performing Provider Status 11/08/23 2:20 PM XR Foot 2 View Right Henry Mast; Auth (Verified) Notes: (XR Foot 2 View Right) Reason For Exam: Right foot pain, reported by family REPORT XR Foot 2 View Right PROCEDURE INFORMATION: Exam: XR Right Foot Exam date and time: 11/08/2023 2:01 PM Age: 58 years old Clinical indication: Fracture of nasal bones, initial encounter for closed fracture; Nutritional anemia, unspecified; Type 2 diabetes mellitus with hyperglycemia; Hypo-osmolality and hyponatremia; Other disorders of plasma-protein metabolism, not elsewhere classified; Restless legs syndrome; Essential (primary) hypertension; End stage renal disease; Repeated falls; Unspecified fracture of shaft of humerus, left arm, initial encounter for closed fracture; Additional info: Right foot pain, reported by family TECHNIQUE: Imaging protocol: Radiologic exam of the right foot. Views: 1 or 2 views. COMPARISON: No relevant prior studies available. FINDINGS: Bones/joints: No evidence for osteomyelitis or other acute osseous or joint abnormality. There are calcaneal enthesophytes. Soft tissues: Normal. Vasculature: There are arterial calcifications. IMPRESSION: No acute findings. Electronically signed by: Danny Lira MD, [facility], 11/08/2023 14:24 Pankaj DUNAWAY, Danny Horowitz Signed 11/08/23 14:24:57 (Electronic Signature) Technologist ABEL BOWEN * Exam Date Time Procedure Performing Provider Status 11/08/23 11:27 AM XR Humerus 2 View Left Hayden Bolton; Auth (Verified) Notes: (XR Humerus 2 View Left) Reason For Exam: Old left humerus fx seen on video library assistant image; further characterization REPORT XR Humerus 2 View Left PROCEDURE INFORMATION: Exam: XR Left Humerus Exam date and time: 11/08/2023 10:58 AM Age: 58 years old Clinical indication: Old left humerus FX seen on video library assistant image; Further characterizatio TECHNIQUE: Imaging protocol: Radiologic exam of the left humerus. Views: 2 or more views. COMPARISON: CT Cervical Spine wo Contrast 11/08/2023 10:47 AM FINDINGS: Bones/joints: There is a comminuted impacted slightly vertex anteriorly angulated fracture of the humeral head and neck. The bones are demineralized. Soft tissues: Normal. IMPRESSION: Humeral head and neck fracture as described above. Electronically signed by: Danny Lira MD, [facility], 11/08/2023 11:31 Danny Lira MD Signed 11/08/23 11:31:30 (Electronic Signature) Technologist ABDULKADIR CORBETT * Exam Date Time Procedure Performing Provider Status 11/08/23 10:34 AM XR Chest 1 View Hayden Bolton; Yary h (Verified) Notes: (XR Chest 1 View) Reason For Exam: Chest Pain REPORT XR Chest 1 View PROCEDURE INFORMATION: Exam: XR Chest Exam date and time: 11/08/2023 10:20 AM Age: 58 years old Clinical indication: Chest pain TECHNIQUE: Imaging protocol: Radiologic exam of the chest. Views: 1 view. COMPARISON: No relevant prior studies available. FINDINGS: Lungs: Unremarkable. No consolidation. Pleural spaces: Unremarkable. No pleural effusion. No pneumothorax. Heart/Mediastinum: Unremarkable. No cardiomegaly. Bones/joints: A metallic plate is seen in the cervical spine. No acute findings. IMPRESSION: No acute findings. Electronically signed by: Danny Lira MD, [facility], 11/08/2023 10:45 Danny Lira MD Signed 11/08/23 10:45:45 (Electronic Signature) Technologist ABDULKDAIR CORBETT Vital Signs Most recent to oldest [Reference Range]: 1 2 3 Blood Pressure 125/75mmHg (11/18/23 12:47 PM) Blood Pressure 129/60 (8/9/24 11:24 AM) 132/67 (11/18/23 11:19 AM) Height (inches) (Clinical) 60 in (11/18/23 2:00 PM) 60 in (11/18/23 2:00 AM) 60 in (11/17/23 12:00 PM) Weight (kg) (Clinical) 83 kg (11/17/23 5:00 AM) 82.7 kg (11/16/23 5:00 AM) 91.9 kg (11/13/23 5:00 AM) BMI (Clinical) 35.7 kg/m2 (11/17/23 5:00 AM) 35.5 kg/m2 (11/16/23 5:00 AM) 39.5 kg/m2 (11/13/23 5:00 AM) Scale Type Bed (11/16/23 5:00 AM) Bed (11/12/23 5:00 AM) Bed (11/11/23 5:00 AM) Social History Social History Type Response Smoking Status Never smoker; Smokel ess tobacco use: Never; Has the patient smoked in the last 365 days, even once? No entered on: 11/08/23 Sex Female Implantable Device List Procedure Provider Procedure Date Device Type Site Unknown Unknown 11/21/18 Unknown Unknown Device Identifier Serial Number Lot or Batch Number Manufacturing Date Expiration Date Distinct Identification Code MRI Safety Implantable Status Assigning Authority Unknown Unknown [id number] Unknown Unknown Unknown Unknown Active Unk nown Procedure Provider Procedure Date Device Type Site Tunneled Cath Insertion Unknown 08/18/18 Unknown U nknown Device Identifier Serial Number Lot or Batch Number Manufacturing Date Expiration Date Distinct Identification Code MRI Safety Implantable Status Assigning Authority Unknown Unknown [id number] Unknown 01/08/21 Unknown Unknown Active Unk nown Hospital Discharge Instructions Patient Education 11/18/2023 15:38:32 End-Stage Kidney Disease End-Stage Kidney Disease End-stage kidney disease occurs when the kidneys are so damaged that they cannot function and cannot get better. This condition may also be referred to as end- stage renal disease or ESRD. The kidneysare two organs that do many important jobs in the body, including: ??? Removing waste and extra fluid from the blood to make urine. ??? Making hormones that maintain the amount of fluid in tissues and blood vessels. ??? Maintaining the right amount of fluids and chemicals in the body. Without functioning kidneys, toxins build up in the blood, and life-threatening complications can occur. What are the causes? This condition usually occurs when a long-term (chronic) kidney disease gets worse and results in permanent damage to the kidneys. It may also be caused by sudden damage to the kidneys (acute kidney injury). What increases the risk? The following factors may make you more likely to develop this condition: ??? Having a family history of chronic kidney disease (CKD). ??? Chronic medical conditions that affect the kidneys, such as: ??? Cardiovascular disease, including high blood pressure. ??? Diabetes. ??? Certain diseases that affect the body's disease-fighting system (immunesystem). ??? Smoking or a history of smoking. ??? Overuse of nmth-ntw-xfutqhx pain medicines. ??? Being around or being in contact with poisonous (toxic) substances. What are the signs or symptoms? Symptoms of this condition include: ??? Swelling of the face, legs, ankles, or feet. ??? Numbness, tingling, or loss of feeling in the hands or feet. ??? Tiredness (lethargy). ??? Nausea or vomiting. ??? Confusion, trouble concentrating, or loss of consciousness. ??? Chest pain. ??? Shortness of breath. ??? Passing little or no urine. ??? Muscle twitches and cramps, especially in the legs. ??? Skin changes, such as: ??? Dry, itchy skin. ??? Pale skin due to anemia, including the skin and tissue around the eye (conjunctiva). ??? Abnormally dark or light skin. ??? Loss of appetite. ??? Headaches. ??? Decrease in muscle size (muscle wasting). ??? Easy bruising. ??? Stopping of menstrual periods, in women. ??? Jerky movements (seizures). How is this diagnosed? This condition may be diagnosed based on: ??? A physical exam, including blood pressure measurements. ??? Urine tests. ??? Blood tests. ??? Imaging tests. ??? A test in which a sample of tissue is removed from the kidneys to be examined under a microscope (kidney biopsy). How is this treated? This condition may be treated with: ??? Dialysis, which is a procedure that removes toxic wastes from the body. There are two types of dialysis: ??? Dialysis that is done through your abdomen. This is called peritoneal dialysis and may be done several times a day. ??? Dialysis that is done by a machine. This is called hemodialysis and may be done several times aweek. ??? Kidney transplant. This is surgery to receive a new kidney. In addition to having dialysis or a kidney transplant, you may need to take medicines: ??? To control high blood pressure (hypertension). ??? To control high cholesterol. ??? To treat diabetes. ??? To maintain healthy levels of minerals in the blood (electrolytes). You may also be given a specific meal plan to follow that includes requirements or limits for: ??? Salt (sodium). ??? Protein. ??? Phosphorus. ??? Potassium. ??? Calcium. Follow these instructions at home: Medicines ??? Take rzij-pvu-wluowqh and prescription medicines only as told by your health care provider. ??? Do not take any new medicines, vitamins, or mineral supplements unless approved by your health care provider. Many medicines and supplements can worsen kidney damage. ??? Follow instructions from your health care provider about adjusting the doses of any medicines you take. Lifestyle ??? Do not use any products that contain nicotine or tobacco, such as cigarettes, e-cigarettes, andchewing tobacco. If you need help quitting, ask your health care provider. ??? Achieve and maintain a healthy weight. If you need help with this, ask your health care provider. ??? Start or continue an exercise plan. Exercise at least 30 minutes a day, 5 days a week. ??? Follow your prescribed meal plan. General instructions ??? Stay current with your shots (immunizations) as told by your health care provider. ??? Keep track of your blood pressure. Report changes in your blood pressure as told by your healthcare provider. ??? If you are being treated for diabetes, monitor and track your blood sugar (blood glucose) levels as told by your health care provider. ??? Keep all follow-up visits. This is important. Where to find more information ??? [place] [employer]: www.aakp.org ??? National Kidney Foundation: www.kidney.org ??? [place] [employer]: www.akfinc.org ??? [employer] [facility]: www.lifeoptions.org ??? [facility]: www.kidneyschool.org Contact a health care provider if: ??? Your symptoms get worse. ??? You develop new symptoms. Get help right away if: ??? You have weakness in an arm or leg on one side of your body. ??? You have difficulty speaking or you are slurring your speech. ??? You have a sudden change in your vision. ??? You have a sudden, severe headache. ??? You have a sudden weight increase. ??? You have difficulty breathing. ??? Your symptoms suddenly get worse. ??? You have chest pain. Summary ??? End-stage kidney disease occurs when the kidneys are so damaged that they cannot function and cannot get better. ??? Without functioning kidneys, toxins build up in the blood and life- threatening complications can occur. ??? Treatment may include dialysis or a kidney transplant along with medicines and lifestyle changes. This information is not intended to replace advice given to you by your health care provider. Make sure you discuss any questions you have with your health care provider. Document Revised: 07/21/2020 Document Reviewed: 06/27/2020 [employer] Patient Education ?? 2023 [employer]. 11/18/2023 15:38:32 End-Stage Kidney Disease End-Stage Kidney Disease End-stage kidney disease occurs when the kidneys are so damaged that they cannot function and cannot get better. This condition may also be referred to as end- stage renal disease or ESRD. The kidneysare two organs that do many important jobs in the body, including: ??? Removing waste and extra fluid from the blood to make urine. ??? Making hormones that maintain the amount of fluid in tissues and blood vessels. ??? Maintaining the right amount of fluids and chemicals in the body. Without functioning kidneys, toxins build up in the blood, and life-threatening complications can occur. What are the causes? This condition usually occurs when a long-term (chronic) kidney disease gets worse and results in permanent damage to the kidneys. It may also be caused by sudden damage to the kidneys (acute kidney injury). What increases the risk? The following factors may make you more likely to develop this condition: ??? Having a family history of chronic kidney disease (CKD). ??? Chronic medical conditions that affect the kidneys, such as: ??? Cardiovascular disease, including high blood pressure. ??? Diabetes. ??? Certain diseases that affect the body's disease-fighting system (immunesystem). ??? Smoking or a history of smoking. ??? Overuse of nwvm-lcr-qbejxwm pain medicines. ??? Being around or being in contact with poisonous (toxic) substances. What are the signs or symptoms? Symptoms of this condition include: ??? Swelling of the face, legs, ankles, or feet. ??? Numbness, tingling, or loss of feeling in the hands or feet. ??? Tiredness (lethargy). ??? Nausea or vomiting. ??? Confusion, trouble concentrating, or loss of consciousness. ??? Chest pain. ??? Shortness of breath. ??? Passing little or no urine. ??? Muscle twitches and cramps, especially in the legs. ??? Skin changes, such as: ??? Dry, itchy skin. ??? Pale skin due to anemia, including the skin and tissue around the eye (conjunctiva). ??? Abnormally dark or light skin. ??? Loss of appetite. ??? Headaches. ??? Decrease in muscle size (muscle wasting). ??? Easy bruising. ??? Stopping of menstrual periods, in women. ??? Jerky movements (seizures). How is this diagnosed? This condition may be diagnosed based on: ??? A physical exam, including blood pressure measurements. ??? Urine tests. ??? Blood tests. ??? Imaging tests. ??? A test in which a sample of tissue is removed from the kidneys to be examined under a microscope (kidney biopsy). How is this treated? This condition may be treated with: ??? Dialysis, which is a procedure that removes toxic wastes from the body. There are two types of dialysis: ??? Dialysis that is done through your abdomen. This is called peritoneal dialysis and may be done several times a day. ??? Dialysis that is done by a machine. This is called hemodialysis and may be done several times aweek. ??? Kidney transplant. This is surgery to receive a new kidney. In addition to having dialysis or a kidney transplant, you may need to take medicines: ??? To control high blood pressure (hypertension). ??? To control high cholesterol. ??? To treat diabetes. ??? To maintain healthy levels of minerals in the blood (electrolytes). You may also be given a specific meal plan to follow that includes requirements or limits for: ??? Salt (sodium). ??? Protein. ??? Phosphorus. ??? Potassium. ??? Calcium. Follow these instructions at home: Medicines ??? Take zjci-apl-fsbrgxp and prescription medicines only as told by your health care provider. ??? Do not take any new medicines, vitamins, or mineral supplements unless approved by your health care provider. Many medicines and supplements can worsen kidney damage. ??? Follow instructions from your health care provider about adjusting the doses of any medicines you take. Lifestyle ??? Do not use any products that contain nicotine or tobacco, such as cigarettes, e-cigarettes, andchewing tobacco. If you need help quitting, ask your health care provider. ??? Achieve and maintain a healthy weight. If you need help with this, ask your health care provider. ??? Start or continue an exercise plan. Exercise at least 30 minutes a day, 5 days a week. ??? Follow your prescribed meal plan. General instructions ??? Stay current with your shots (immunizations) as told by your health care provider. ??? Keep track of your blood pressure. Report changes in your blood pressure as told by your healthcare provider. ??? If you are being treated for diabetes, monitor and track your blood sugar (blood glucose) levels as told by your health care provider. ??? Keep all follow-up visits. This is important. Where to find more information ??? [place] [employer]: www.aakp.org ??? National Kidney Foundation: www.kidney.org ??? [place] [employer]: www.akfinc.org ??? [employer] [facility]: www.lifeoptions.org ??? [facility]: www.kidneyschool.org Contact a health care provider if: ??? Your symptoms get worse. ??? You develop new symptoms. Get help right away if: ??? You have weakness in an arm or leg on one side of your body. ??? You have difficulty speaking or you are slurring your speech. ??? You have a sudden change in your vision. ??? You have a sudden, severe headache. ??? You have a sudden weight increase. ??? You have difficulty breathing. ??? Your symptoms suddenly get worse. ??? You have chest pain. Summary ??? End-stage kidney disease occurs when the kidneys are so damaged that they cannot function and cannot get better. ??? Without functioning kidneys, toxins build up in the blood and life- threatening complications can occur. ??? Treatment may include dialysis or a kidney transplant along with medicines and lifestyle changes. This information is not intended to replace advice given to you by your health care provider. Make sure you discuss any questions you have with your health care provider. Document Revised: 07/21/2020 Document Reviewed: 06/27/2020 [employer] Patient Education ?? 2023 [employer] 11/18/2023 15:38:17 Fall Prevention in the Home, Adult, Qahl-za-Qfeg Fall Prevention in the Home, Adult Falls can cause injuries and can happen to people of all ages. There are many things you can do to make your home safer and to help prevent falls. What actions can I take to prevent falls? General information ??? Use good lighting in all rooms. Make sure to: ??? Replace any light bulbs that burn out. ??? Turn on the lights in dark areas and use night-lights. ??? Keep items that you use often in rxky-no-qgbge places. Lower the shelves around your home if needed. ??? Move furniture so that there are clear paths around it. ??? Do not use throw rugs or other things on the floor that can make you trip. ??? If any of your floors are uneven, fix them. ??? Add color or contrast paint or tape to clearly allison and help you see: ??? Grab bars or handrails. ??? First and last steps of staircases. ??? Where the edge of each step is. ??? If you use a ladder or stepladder: ??? Make sure that it is fully opened. Do not climb a closed ladder. ??? Make sure the sides of the ladder are locked in place. ??? Have someone hold the ladder while you use it. ??? Know where your pets are as you move through your home. What can I do in the bathroom? Keep the floor dry. Clean up any water on the floor right away. ??? Remove soap buildup in the bathtub or shower. Buildup makes bathtubs and showers slippery. ??? Use non-skid mats or decals on the floor of the bathtub or shower. ??? Attach bath mats securely with double-sided, non-slip rug tape. ??? If you need to sit down in the shower, use a non-slip stool. ??? Install grab bars by the toilet and in the bathtub and shower. Do not use towel bars as grab bars. What can I do in the bedroom? Make sure that you have a light by your bed that is easy to reach. ??? Do not use any sheets or blankets on your bed that hang to the floor. ??? Have a firm chair or bench with side arms that you can use for support when you get dressed. What can I do in the kitchen? Clean up any spills right away. ??? If you need to reach something above you, use a step stool with a grab bar. ??? Keep electrical cords out of the way. ??? Do not use floor macanese or wax that makes floors slippery. What can I do with my stairs? Do not leave anything on the stairs. ??? Make sure that you have a light switch at the top and the bottom of the stairs. ??? Make sure that there are handrails on both sides of the stairs. Fix handrails that are broken or loose. ??? Install non-slip stair treads on all your stairs if they do not have carpet. ??? Avoid having throw rugs at the top or bottom of the stairs. ??? Choose a carpet that does not hide the edge of the steps on the stairs. Make sure that the carpet is firmly attached to the stairs. Fix carpet that is loose or worn. What can I do on the outside of my home? Use bright outdoor lighting. ??? Fix the edges of walkways and driveways and fix any cracks. Clear paths of anything that can make you trip, such as tools or rocks. ??? Add color or contrast paint or tape to clearly allison and help you see anything that might make you trip as you walk through a door, such as a raised step or threshold. ??? Trim any bushes or trees on paths to your home. ??? Check to see if handrails are loose or broken and that both sides of all steps have handrails. Install guardrails along the edges of any raised decks and porches. ??? Have leaves, snow, or ice cleared regularly. Use sand, salt, or ice melter on paths if you livewhere there is ice and snow during the winter. ??? Clean up any spills in your garage right away. This includes grease or oil spills. What other actions can I take? Review your medicines with your doctor. Some medicines can cause dizziness or changes in blood pressure, which increase your risk of falling. ??? Wear shoes that: ??? Have a low heel. Do not wear high heels. ??? Have rubber bottoms and are closed at the toe. ??? Feel good on your feet and fit well. ??? Use tools that help you move around if needed. These include: ??? Canes. ??? Walkers. ??? Scooters. ??? Crutches. ??? Ask your doctor what else you can do to help prevent falls. This may include seeing a physical therapist to learn to do exercises to move better and get stronger. Where to find more information ??? Centers for Disease Control and Prevention, MICHAEL: cdc.gov ??? [place] [employer] A[employer]: mariaa.nih.gov ??? [place] [employer]: mariaa.nih.gov Contact a doctor if: ??? You are afraid of falling at home. ??? You feel weak, drowsy, or dizzy at home. ??? You fall at home. Get help right away if you: ??? Lose consciousness or have trouble moving after a fall. ??? Have a fall that causes a head injury. These symptoms may be an emergency. Get help right away. Call 911. ??? Do not wait to see if the symptoms will go away. ??? Do not drive yourself to the hospital. This information is not intended to replace advice given to you by your health care provider. Make sure you discuss any questions you have with your health care provider. Document Revised: 11/29/2022 Document Reviewed: 11/29/2022 [employer] Patient Education ?? 2023 [employer] 11/18/2023 15:38:17 Fall Prevention in the Home, Adult, Xdyk-pz-Iaqn Fall Prevention in the Home, Adult Falls can cause injuries and can happen to people of all ages. There are many things you can do to make your home safer and to help prevent falls. What actions can I take to prevent falls? General information ??? Use good lighting in all rooms. Make sure to: ??? Replace any light bulbs that burn out. ??? Turn on the lights in dark areas and use night-lights. ??? Keep items that you use often in oyse-lv-oucnf places. Lower the shelves around your home if needed. ??? Move furniture so that there are clear paths around it. ??? Do not use throw rugs or other things on the floor that can make you trip. ??? If any of your floors are uneven, fix them. ??? Add color or contrast paint or tape to clearly allison and help you see: ??? Grab bars or handrails. ??? First and last steps of staircases. ??? Where the edge of each step is. ??? If you use a ladder or stepladder: ??? Make sure that it is fully opened. Do not climb a closed ladder. ??? Make sure the sides of the ladder are locked in place. ??? Have someone hold the ladder while you use it. ??? Know where your pets are as you move through your home. What can I do in the bathroom? Keep the floor dry. Clean up any water on the floor right away. ??? Remove soap buildup in the bathtub or shower. Buildup makes bathtubs and showers slippery. ??? Use non-skid mats or decals on the floor of the bathtub or shower. ??? Attach bath mats securely with double-sided, non-slip rug tape. ??? If you need to sit down in the shower, use a non-slip stool. ??? Install grab bars by the toilet and in the bathtub and shower. Do not use towel bars as grab bars. What can I do in the bedroom? Make sure that you have a light by your bed that is easy to reach. ??? Do not use any sheets or blankets on your bed that hang to the floor. ??? Have a firm chair or bench with side arms that you can use for support when you get dressed. What can I do in the kitchen? Clean up any spills right away. ??? If you need to reach something above you, use a step stool with a grab bar. ??? Keep electrical cords out of the way. ??? Do not use floor macanese or wax that makes floors slippery. What can I do with my stairs? Do not leave anything on the stairs. ??? Make sure that you have a light switch at the top and the bottom of the stairs. ??? Make sure that there are handrails on both sides of the stairs. Fix handrails that are broken or loose. ??? Install non-slip stair treads on all your stairs if they do not have carpet. ??? Avoid having throw rugs at the top or bottom of the stairs. ??? Choose a carpet that does not hide the edge of the steps on the stairs. Make sure that the carpet is firmly attached to the stairs. Fix carpet that is loose or worn. What can I do on the outside of my home? Use bright outdoor lighting. ??? Fix the edges of walkways and driveways and fix any cracks. Clear paths of anything that can make you trip, such as tools or rocks. ??? Add color or contrast paint or tape to clearly allison and help you see anything that might make you trip as you walk through a door, such as a raised step or threshold. ??? Trim any bushes or trees on paths to your home. ??? Check to see if handrails are loose or broken and that both sides of all steps have handrails. Install guardrails along the edges of any raised decks and porches. ??? Have leaves, snow, or ice cleared regularly. Use sand, salt, or ice melter on paths if you livewhere there is ice and snow during the winter. ??? Clean up any spills in your garage right away. This includes grease or oil spills. What other actions can I take? Review your medicines with your doctor. Some medicines can cause dizziness or changes in blood pressure, which increase your risk of falling. ??? Wear shoes that: ??? Have a low heel. Do not wear high heels. ??? Have rubber bottoms and are closed at the toe. ??? Feel good on your feet and fit well. ??? Use tools that help you move around if needed. These include: ??? Canes. ??? Walkers. ??? Scooters. ??? Crutches. ??? Ask your doctor what else you can do to help prevent falls. This may include seeing a physical therapist to learn to do exercises to move better and get stronger. Where to find more information ??? Centers for Disease Control and Prevention, STEADI: cdc.gov ??? [place] [employer]: mariaa.nih.gov ??? [place] [employer]: mariaa.nih.gov Contact a doctor if: ??? You are afraid of falling at home. ??? You feel weak, drowsy, or dizzy at home. ??? You fall at home. Get help right away if you: ??? Lose consciousness or have trouble moving after a fall. ??? Have a fall that causes a head injury. These symptoms may be an emergency. Get help right away. Call 911. ??? Do not wait to see if the symptoms will go away. ??? Do not drive yourself to the hospital. This information is not intended to replace advice given to you by your health care provider. Make sure you discuss any questions you have with your health care provider. Document Revised: 11/29/2022 Document Reviewed: 11/29/2022 [employer] Patient Education ?? 2023 [employer] Follow Up Care 11/08/2023 09:52:37 With:Your home health agency is [facility] [place]. They will call you to arrange your visits Address:Unknown When: Unknown Comments:Nurse please send H&P, Progress note and discharge paperwork to [phone]. Thank you Otolaryngology Consult note * Dario Araujo DO: PERFORM Event Display: ENT Consultation Authored Date: Chief Complaint pt arrives to ED from home via [facility] with c/o fall this morning from recliner to the ground, -LOC, +thinners, GCS 15. 120/80, NSR 70's. General Information Nurse Intake General Information Physicians and Specialties: Dr. Vivienne Schulz, PCPDr. Bailey (11/08/23) Pain Information Nurse Intake Pain Information?? Reason for Consultation Nasal fracture History of Present Illness 58-year-old??female with??possible nasal??fracture resulting from fall? Physical Exam Vitals & Measurements T:??97.9?F?? TMIN:??97.7?F?? TMAX:??98.8?F?? HR:??79?? RR:??16?? BP:??124/82?? SpO2:??98%?? WT:??93??kg?? General: Well-developed, obese female in??no acute??distress.? Head: normocephalic,??there is diffuse periorbital??ecchymosis.?? No palpable??step-offs or depressions. ?? Cranial Nerves: II - XII grossly intact.?? Extraocular muscles intact, without diplopia Ears: External auditory canals clear, Tympanic membranes intact, No middle ear effusions, No otorrhea Nose: Nasal mucosa is dry.?? no mucopus, no polyps.?? Nasal bones appear??symmetrical and??stable to palpation.? Oral Cavity: No lesions Oropharynx: No lesions Neck: No lymphadenopathy, No palpable thyroid nodules Pulmonary: Respirations regular Cardiac: regular rate and rhythm Assessment/Plan 1.??Nasal bone fracture(Fracture of nasal bones, initial encounter for closed fracture: S02.2XXA) Possible??small nasal fracture, nondisplaced.?? No interventions required.? Ordered: [facility] [id number] ?? 2.??Fracture of left humerus(Unspecified fracture of shaft of humerus, left arm, initial encounter for closed fracture: S42.302A) [place]dered: [facility] [place] [id number] ?? 3.??Macrocytic anemia(Nutritional anemia, unspecified: D53.9) [place]dered: [facility] [place] [id number] ?? 4.??Frequent falls(Repeated falls: R29.6) [place]dered: [place] [id number] ?? 5.??ESRD (end stage renal disease)(End stage renal disease: N18.6) Ordered: [facility] [place] [id number] ?? 6.??Type 2 diabetes mellitus with hyperglycemia(Type 2 diabetes mellitus with hyperglycemia: E11.65) [place]dered: [place] [id number] ?? 7.??Restless leg syndrome(Restless legs syndrome: G25.81) [place]dered: [facility] [place] [id number] ?? 8.??Hypertension(Essential (primary) hypertension: I10) [place]dered: [place] [id number] ?? 9.??Hyponatremia(Hypo-osmolality and hyponatremia: E87.1) [place]dered: [facility] [place] [id number] ?? 10.??Hypoalbuminemia(Other disorders of plasma-protein metabolism, not elsewhere classified: E88.09) [place]dered: [place] [id number] ?? Problem List/Past Medical History ESRD (end stage renal disease): ?? Type 2 diabetes mellitus with hyperglycemia: ?? Hypertension: ?? Restless leg syndrome: ?? Procedure/Surgical History ???Fistula to Right arm ()???Neck fusion (2014)???Appendectomy (1999)???cholecystectomy (1999)???Tonsillectomy (1978)???Arteriovenous fistula, left???bilateral carpal tunnel??? x 2???graft to left arm???hemodialysis catheter placement Medications Home Medications (20) Active Auryxia 210 mg oral tablet??See Instructions:420 mg By mouth,Start_date: 11/08/23,Refills: 0 Benadryl??25 mg,Start_date: 11/26/20,Refills: 0, By mouth, at bedtime Carb/Lorb??10mg tabs - take .5tab:takes on dialysis days for restless legs,Start_date: 11/26/20,Refills: 0, By mouth cetirizine??10 mg,Start_date: 04/19/18,Refills: 0, By mouth, BID Flexeril 5 mg oral tablet??5 mg = 1 tab,Start_date: 04/19/18,Refills: 0, PRN, By mouth, as needed gabapentin 100 mg oral capsule??100 mg = 1 cap,Start_date: 11/08/23,Refills: 0, By mouth, TID levothyroxine??75 mcg,Start_date: 04/19/18,Refills: 0, By mouth, Daily Lexapro 20 mg oral tablet??20 mg = 1 tab,Start_date: 11/21/18,Refills: 0, By mouth, Daily Melatonin??3 mg,Start_date: 11/26/20,Refills: 0, By mouth, at bedtime Metoprolol Succinate ER 200 mg oral tablet, extended release??200 mg = 1 tab,Start_date: 11/26/20,Refills: 0, By mouth, Daily Luisa Plus Supplement??1 cap,Start_date: 11/26/20,Refills: 0, By mouth, Daily Norvasc 5 mg oral tablet??5 mg = 1 tab,Start_date: 11/08/23,Refills: 0, By mouth, Daily NovoLOG FlexPen 100 units/mL injectable solution??12 Units,Start_date: 04/19/18,Refills: 0, SubQ, TIDAC (three times a day before meals) omeprazole??20 mg,Start_date: 11/26/20,Refills: 0, By mouth, at bedtime Plavix??75 mg,Start_date: 11/26/20,Refills: 0, By mouth, Daily Renal plex??1 cap,Start_date: 11/26/20,Refills: 0, By mouth, at bedtime Requip 0.25 mg oral tablet??0.25 mg = 1 tab,Start_date: 11/21/18,Refills: 0, By mouth, at bedtime Tresiba FlexTouch 100 units/mL subcutaneous solution??55 Units,Start_date: 04/19/18,Refills: 0, SubQ, Daily Victoza 18 mg/3 mL subcutaneous solution??1.8 mg,Start_date: 04/19/18,Refills: 0, SubQ, Daily Voltaren 1% topical gel??See Instructions:2 g,Start_date: 11/08/23,Refills: 0 Allergies Latex??(anaphylaxsis - throat closes up) Percocet 7.5/325??(Swollen face, Hives, Vicodin) Phenergan??( caused whole body to jerk uncontrollably) contrast media (iodine-based)??( just about stopped my heart ) Adhesive??(Rash, NOS, Blisters) NSAIDs??(as a child, hives) Neurontin??(Hives) Tylenol??(Hives) Vicodin??(Hives) lisinopril??(Cough) traMADol??(Speech impairment) Social History Alcohol Denies Substance Abuse Denies Tobacco Smoking Status: Never smoker. Smokeless tobacco use: Never. Has the patient smoked in the last 365 days, even once? No. Family History Diabetes mellitus: MOTHER. Heart disease: MOTHER, FATHER, MGF, MGM, PGF and UNCLE. Hypertension: MOTHER, MGF and MGM. Prostate cancer.: FATHER. Stroke: FATHER, MGF, MGM and PGM. Diagnostic Results CT??scan of the facial bones, reviewed?? Other Respiratory Oxygen Delivery: Nasal cannula Oxygen Liter Flow: 2 L/min Respiratory Effort: Regular, Unlabored, Even Shortness of Breath: None Cough: None Left Lower Breath Sounds: Diminished Left Upper Breath Sounds: Clear Right Lower Breath Sounds: Diminished Right Upper Breath Sounds: Clear Incision/Wound Breast, Skin folds 11/08/2023 - Incision/Wound Abnormality Type: Moisture associated skin damage (02:00) Axilla Lt 11/08/2023 - Incision/Wound Abnormality Type: Moisture associated skin damage (02:00) ABD, Skin folds 11/08/2023 - Incision/Wound Abnormality Type: Moisture associated skin damage (05:36) ABD Lower, Middle - Incision/Wound Abnormality Type: Moisture associated skin damage, Ulceration (non decubitus), Other: Multiple ulcerations-pt states they were being treated but she thought they were healed (05:36) Gluteal fold RT 11/08/2023 - Incision/Wound Abnormality Type: Pressure ulcer (02:00) Coccyx 11/08/2023 - Incision/Wound Abnormality Type: Pressure ulcer (02:00) Coccyx 11/08/2023 - Incision/Wound Pressure Ulcer Stage: Stage 3 (17:38) Gluteal fold RT 11/08/2023 - Pressure Ulcer Present on Admission: Yes (17:38) Coccyx 11/08/2023 - Pressure Ulcer Present on Admission: Yes (17:38) Coccyx 11/08/2023 - Incision/Wound Pressure Point: Bony prominence (17:38) ABD, Skin folds 11/08/2023 - Incision/Wound Dressing Activity: Applied (05:36) ABD Lower, Middle - Incision/Wound Dressing Activity: Applied (05:36) ABD, Skin folds 11/08/2023 - Incision/Wound Dressing Type: Other: Miconazole and DriGo (05:36) ABD Lower, Middle - Incision/Wound Dressing Type: Other: Miconazole and DriGo (05:36) Gluteal fold RT 11/08/2023 - Incision/Wound Dressing Type: None (19:11) Coccyx 11/08/2023 - Incision/Wound Dressing Type: None (19:11) ABD, Skin folds 11/08/2023 - Incision/Wound Cleansed With: Other: Theraworx (05:36) ABD Lower, Middle - Incision/Wound Cleansed With: Other: Theraworx (05:36) Nutrition Diet: Low sodium, Renal Nutrition Risks: N/A, Age Does Not Qualify Time Placed in Bed: 11/08/23 15:29:00 Electronically signed by:Dario Araujo DO 11/09/23 06:56 Orthopaedic surgery Consult note * Jazmin MOFFETT, Andrei M: PERFORM Event Display: Orthopedic Consultation Authored Date: Chief Complaint pt arrives to ED from home via [facility] with c/o fall this morning from recliner to the ground, -LOC, +thinners, GCS 15. 120/80, NSR 70's. General Information Nurse Intake General Information Physicians and Specialties: Dr. Vivienne Schulz, PCPDr. Bailey (11/08/23) Pain Information Nurse Intake Pain Information?? Reason for Consultation L nonhealing humerus fracture History of Present Illness 58-year-old female presenting to the ED for evaluation of fall.??Patient reported to ED provider??she fell forward out of her recliner striking her face on a carpeted floor. ??She reported a headacheand had a hematoma to her forehead. ??She denied loss of??consciousness. ??She does take Plavix. XRL humerus showed a proximal humerus fracture and when patient was questioned by ED provider about it, patient??denied L shoulder pain and reported the fracture was several weeks old from a previous fall??and was being managed by [facility] but wanted a second opinion.??Ortho Trauma was then consulted for a nonhealing L proximal humerus fracture. As I see patient she is sleeping and awakens only to answer some questions. Her mother is present at bedside to help to provide history.?? She denies LUE pain or pain in any of her extremities.?? Patient denied numbness or tingling??to her extremities. ?? Patient has a past medical history of ESRD on HD, DM, and HTN. Mother reported patient takes Plavix and denied a history of cancer, PE, or DVT.?? Mother reported a patient has no adverse reactionsto anesthesia.?? Patient is , disabled, and lives in [place] with her daughter.?? She??uses a walker at baseline for ambulation. Mother reported patient has no past history of tobacco, alcohol, or illicit drug use. ? Review of Systems Limited due to mentation, see HPI. Physical Exam Vitals & Measurements T:??97.7?F?? TMIN:??97.7?F?? TMAX:??98.8?F?? HR:??79?? RR:??15?? BP:??128/83?? SpO2:??94%?? WT:??90.2??kg?? General: well-developed??58 year old??female in NAD.?? Sleeping and awakens to answer some questions and follows some commands. Skin: warm and well perfused HEENT: normocephalic traumatic hematoma with ecchymosis to forehead. Hearing intact bilaterally. Neck: trachea midline Respiratory: symmetric chest rise with nonlabored, deep breaths CV: Regular rate as noted on vitals ?? MSK: ?? RUE: Skin is clean, dry, intact.?? No obvious??deformity noted. ?? Warm and well perfused. Nontender to palpation over??the??clavicle, shoulder,??humerus, elbow, forearm, wrist,??hand, and fingers. Compartments soft and compressible Palpable 2+ radial??pulse. Cap refill is less than??2 seconds?? Light touch sensation intact to??the axillary/radial/ulna/median nerve distributions.? Able to wiggle fingers, but does patriciate further in AROM. Able to extend/flex wrist, pronate and supinate forearm, extend/flex elbow, and full shoulder ROM. Able to PROM extend/flex wrist, pronate and supinate forearm, extend/flex elbow, and shoulder PROM without pain elicited. ? LUE: Skin is clean, dry, intact.?? No obvious??deformity noted. ?? Warm and well perfused. Nontender to palpation over??the clavicle, shoulder, humerus, elbow, forearm, wrist,??hand,??and??fingers.? Compartments soft and compressible Palpable 2+ radial??pulse. Cap refill is less than??2 seconds?? Light touch sensation intact to??the axillary/radial/ulna/median nerve distributions.? Able to wiggle fingers but does not participate further with AROM. Able to PROM extend/flex wrist, pronate and supinate forearm, extend/flex elbow, and shoulder ROM to 90 degrees abduction without pain elicited. ? Imaging: XR L humerus: L subacute displaced comminuted proximal humerus fracture, no shoulder dislocation. XR L shoulder: L subacute displaced comminuted proximal humerus fracture, no shoulder dislocation. ?? I have personally reviewed the images above and descriptions provided are my personal interpretations. ?? Assessment/Plan 1.??Nasal bone fracture(Fracture of nasal bones, initial encounter for closed fracture: S02.2XXA) ?? 2.??Fracture of left humerus(Unspecified fracture of shaft of humerus, left arm, initial encounter for closed fracture: S42.302A) Ordered: XR Shoulder 3 View Left Routine ?? 3.??Macrocytic anemia(Nutritional anemia, unspecified: D53.9) ?? 4.??Frequent falls(Repeated falls: R29.6) ?? 5.??ESRD (end stage renal disease)(End stage renal disease: N18.6) ?? 6.??Type 2 diabetes mellitus with hyperglycemia(Type 2 diabetes mellitus with hyperglycemia: E11.65) ?? 7.??Restless leg syndrome(Restless legs syndrome: G25.81) ?? 8.??Hypertension(Essential (primary) hypertension: I10) ?? 9.??Hyponatremia(Hypo-osmolality and hyponatremia: E87.1) ?? 10.??Hypoalbuminemia(Other disorders of plasma-protein metabolism, not elsewhere classified: E88.09) ?? Patient is a 58yo female with a subacute healing L displaced comminuted proximal humerus fracture sustained from a previous fall and [facility]?? No pain reported on exam or elicited with PROM abduction to 90 degrees with the L shoulder.?? No further imaging needed at this time.?? Recommend continued non-operative management and to follow-up with Leisa Browne upon discharge.?? She may wear a sling for comfort but needs to come out of sling for PT/OT for exercises to start to ROM shoulder, elbow, and wrist to prevent stiffness. Ortho Trauma will sign off. Call with any questions or concerns. ?? Other I will discuss the plan of care at the Ortho Trauma conference and patient will be updated with anychange in plans. ?? Andrei Wu PA-C Collaborating with Dr. Soto [facility] phone number [phone] and fax [phone]?? Problem List/Past Medical History ESRD (end stage renal disease): ?? Type 2 diabetes mellitus with hyperglycemia: ?? Hypertension: ?? Restless leg syndrome: ?? Procedure/Surgical History ???Fistula to Right arm ()???Neck fusion (2014)???Appendectomy (2000)???cholecystectomy (1999)???Tonsillectomy (1978)???Arteriovenous fistula, left???bilateral carpal tunnel??? x 2???graft to left arm???hemodialysis catheter placement Medications Home Auryxia 210 mg oral tablet, See Instructions Benadryl, 25 mg, By mouth, at bedtime Carb/Lorb, 10mg tabs - take .5tab, By mouth cetirizine, 10 mg, By mouth, BID Flexeril 5 mg oral tablet, 5 mg= 1 tab, By mouth, as needed, PRN gabapentin 100 mg oral capsule, 100 mg= 1 cap, By mouth, TID levothyroxine, 75 mcg, By mouth, Daily Lexapro 20 mg oral tablet, 20 mg= 1 tab, By mouth, Daily Melatonin, 3 mg, By mouth, at bedtime Metoprolol Succinate ER 200 mg oral tablet, extended release, 200 mg= 1 tab, By mouth, Daily Luisa Plus Supplement, 1 cap, By mouth, Daily Norvasc 5 mg oral tablet, 5 mg= 1 tab, By mouth, Daily NovoLOG FlexPen 100 units/mL injectable solution, 12 Units, SUBQ, TIDAC (three times a day before meals) omeprazole, 20 mg, By mouth, at bedtime Plavix, 75 mg, By mouth, Daily Renal plex, 1 cap, By mouth, at bedtime Requip 0.25 mg oral tablet, 0.25 mg= 1 tab, By mouth, at bedtime Tresiba FlexTouch 100 units/mL subcutaneous solution, 55 Units, SUBQ, Daily Victoza 18 mg/3 mL subcutaneous solution, 1.8 mg, SUBQ, Daily Voltaren 1% topical gel, See Instructions Allergies Latex??(anaphylaxsis - throat closes up) Percocet 7.5/325??(Swollen face, Hives, Vicodin) Phenergan??( caused whole body to jerk uncontrollably) contrast media (iodine-based)??( just about stopped my heart ) Adhesive??(Rash, NOS, Blisters) NSAIDs??(as a child, hives) Neurontin??(Hives) Tylenol??(Hives) Vicodin??(Hives) lisinopril??(Cough) traMADol??(Speech impairment) Social History Alcohol Denies Substance Abuse Denies Tobacco Smoking Status: Never smoker. Smokeless tobacco use: Never. Has the patient smoked in the last 365 days, even once? No. Family History Diabetes mellitus: MOTHER. Heart disease: MOTHER, FATHER, MGF, MGM, PGF and UNCLE. Hypertension: MOTHER, MGF and MGM. Prostate cancer.: FATHER. Stroke: FATHER, MGF, MGM and PGM. Other Respiratory Oxygen Delivery: Nasal cannula Oxygen Liter Flow: 2 L/min Respiratory Effort: Regular, Even, Symmetrical Shortness of Breath: No, None Incision/Wound Breast, Skin folds 11/08/2023 - Incision/Wound Abnormality Type: Moisture associated skin damage (17:38) Axilla Lt 11/08/2023 - Incision/Wound Abnormality Type: Moisture associated skin damage (17:38) ABD, Skin folds 11/08/2023 - Incision/Wound Abnormality Type: Moisture associated skin damage (17:38) ABD Lower, Middle - Incision/Wound Abnormality Type: Moisture associated skin damage, Ulceration (non decubitus), Other: Multiple ulcerations-pt states they were being treated but she thought they were healed (17:38) Gluteal fold RT 11/08/2023 - Incision/Wound Abnormality Type: Pressure ulcer (17:38) Coccyx 11/08/2023 - Incision/Wound Abnormality Type: Pressure ulcer (17:38) Coccyx 11/08/2023 - Incision/Wound Pressure Ulcer Stage: Stage 3 (17:38) Gluteal fold RT 11/08/2023 - Pressure Ulcer Present on Admission: Yes (17:38) Coccyx 11/08/2023 - Pressure Ulcer Present on Admission: Yes (17:38) Coccyx 11/08/2023 - Incision/Wound Pressure Point: Bony prominence (17:38) Gluteal fold RT 11/08/2023 - Incision/Wound Dressing Type: None (17:38) Coccyx 11/08/2023 - Incision/Wound Dressing Type: None (17:38) Nutrition Diet: Low sodium, Renal Nutrition Risks: N/A, Age Does Not Qualify Time Placed in Bed: 11/08/23 15:29:00 Electronically signed by:Andrei Coyle 11/08/23 22:04 Electronically cosigned by: Willian Soto MD 11/09/23 06:12 Progress note * Susy Temple: PERFORM, SIGN, VERIFY Event Display: Progress Notes Authored Date: [id number] Patient: JEREMIAH KAISER Age: 58 years Sex: Female : 1965 Associated Diagnoses: None Author: Susy Temple Procedure Hemodialysis Note : The patient ??was seen ??during dialysis. Procedure:??Hemodialysis Indication:??ESRD Procedure : Dialysis duration 3.5 hrs Access: Right AVF Dialysis Potassium Bath : ?? 3K Dialyzer : ?? F200 Blood Flow Rate : ?? 400 Dialysate Rate : ?? 800 Na : 137 Ca : 2.0 Ultrafiltration Goal : ?? 2300 Sodium Modeling : ?? No I, Susy Wiggins NP-BC, am acting as a scribe for Dr. Bailey. Electronically signed by:Susy Temple 11/18/23 11:37 Electronically cosigned by: Leo DUNAWAY, Deepak Ang * Susy Temple: PERFORM, SIGN, VERIFY Event Display: Progress Notes Authored Date: Patient: JEREMIAH KAISER Age: 58 years Sex: Female : 1965 Associated Diagnoses: None Author: Susy Temple Basic Information Admit information: 58 years old lady with past medical history of hypertension, restless leg syndrome, diabetes mellitus type 2, end-stage renal disease on dialysis Tuesday last dialysis was on Tuesday did not miss any dialysis goes to for [facility] dialysis unit in [place] 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 Meneses with [facility], still makes significant amount of urine, does not remember her dry weight gets dialysis through right AV fistula. Patient thinks the reason of her renal failure was use of NSAIDs. Came in after slipping off from her recliner and hitting her face, and head, patient also have chronic left humeral fracture. Per patient patient has been sleeping on a recliner for a while she feelsshort of breath if she lies down in bed she is also facing significant amount of swelling for several months. Not on any diuretics at home. , Today's Information: Patient seen at bedside, sitting up in recliner. Last HD treatment yesterday with 2.8 L UF. Still with some lower extremity edema on exam, but she reports this is improving. She denies dyspnea, remains on room air. She denies new questions or concerns today. She is awaiting facility placement. . Review of Systems See HPI. All other ROS reviewed as negative or not pertinent. Health Status Allergies: Allergic Reactions (Selected) Severe Contrast media (iodine-based)- just about stopped my heart . Kiwi- Swelling. Latex- Anaphylaxsis - throat closes up. Percocet 7.5/325- Swollen face, hives and vicodin. Phenergan- caused whole body to jerk uncontrollably. Unknown Pineapple- Uncooked. Severity Not Documented Adhesive- Blisters and rash, nos. Lisinopril- Cough. Neurontin- Hives. NSAIDs- As a child, hives. TraMADol- Speech impairment. Tylenol- Hives. Vicodin- Hives., Allergies (14) Active Severity Reaction Percocet 7.5/325 Severe Vicodin, Hives contrast media (iodine-based) Severe just about stopped my heart Latex Severe anaphylaxsis - throat closes up Phenergan Severe caused whole body to jerk uncontrollably Percocet 7.5/325 Severe Swollen face Kiwi Severe Swelling Neurontin Hives NSAIDs as a child, hives Tylenol Hives traMADol Speech impairment Vicodin Hives lisinopril Cough Adhesive Blisters, Rash, NOS Pineapple Unknown Uncooked General: In no acute distress. Alert & oriented x3. Skin: Warm and dry. HEENT: Normocephalic. Facial bruising noted CV: Regular rate and rhythm. Chest: Respirations even and unlabored. Lungs clear to auscultation. No wheezing. ABD: Normoactive bowel sounds. Soft; No tenderness to palpation. Neurologic: No obvious focal deficit. Cooperative Extremities: 1+ peripheral edema. Dialysis access: Right AVF, WNL Physical Examination Vital Signs (last 24 hrs) Last Charted Minimum Maximum Temp 98.7 (NOV 16:07) 97.5 (NOV 15 23:14) 98.7 (NOV 15 15:00) Heart Rate 95 (NOV 16:) 82 (NOV 16 03:46) 118 (NOV 15 13:40) Resp Rate 18 (NOV 16:07) 17 (NOV 16 03:46) 18 (NOV 15 15:00) SBP 114 (NOV 16 11:07) 99 (NOV 15 18:55) 132 (NOV 15 15:00) DBP 56 (NOV 16:07) 56 (AUG 08 11:07) 79 (NOV 15 15:00) SpO2 96 (NOV 16 11:07) 94 (NOV 16 07:34) 100 (NOV 15 15:00) O2 Room a (NOV 16:07) Nasal (NOV 15 15:00) Nasal (NOV 15 15:00) O2 Flow 2 (NOV 15 19:08) 2 (NOV 15 15:00) 2 (NOV 15 15:00) Weight 83 (NOV 16 05:00) 83 (NOV 16 05:00) 83 (NOV 16 05:00) Measurements from flowsheet : Measurements(Clinical) 11/17/2023 12:00 CDT Height (inches) (Clinical) 60 in 11/17/2023 5:00 CDT Height (inches) (Clinical) 60 in Weight (kg) (Clinical) 83 kg BMI (Clinical) 35.7 kg/m2 11/17/2023 2:00 CDT Height (inches) (Clinical) 60 in 11/16/2023 14:00 CDT Height (inches) (Clinical) 60 in 11/16/2023 11:40 CDT Post Dialysis Weight (kg) 85.8 kg 11/16/2023 7:35 CDT Pre Dialysis Weight (kg) 88.3 kg 11/16/2023 5:00 CDT Height (inches) (Clinical) 60 in Weight (kg) (Clinical) 82.7 kg Scale Type Bed BMI (Clinical) 35.5 kg/m2 11/16/2023 2:00 CDT Height (inches) (Clinical) 60 in Review / Management Results review: Labs (Last four charted values) WBC 6.4 (NOV 13) 6.6 (NOV 08) 7.7 (NOV 07) Hgb L 9.2 (NOV 15) L 8.9 (NOV 14) L 8.6 (NOV 13) L 8.3 (NOV 12) Hct L 29.1 (NOV 15) L 28.2 (NOV 14) L 27.6 (NOV 13) L 27.1 (NOV 12) Plt 303 (NOV 13) 246 (NOV 08) 282 (NOV 07) Na L 135 (NOV 15) L 135 (NOV 14) L 128 (NOV 13) L 134 (NOV 10) K 3.6 (NOV 15) 4.0 (NOV 14) 4.5 (NOV 13) 4.8 (NOV 10) CO2 26 (NOV 15) 28 (NOV 14) 22 (NOV 13) 29 (NOV 10) Cl 99 (NOV 15) 99 (NOV 14) L 97 (NOV 13) 99 (NOV 10) Cr H 1.53 (NOV 15) H 3.09 (NOV 14) H 4.29 (NOV 13) H 3.62 (NOV 10) BUN L <5 (NOV 15) 13 (NOV 14) 10 (NOV 13) 15 (NOV 10) Glucose Random H 166 (NOV 15) H 125 (NOV 14) H 102 (NOV 13) H 128 (NOV 10) Phos L 1.4 (NOV 15) 4.3 (NOV 13) Ca L 7.9 (NOV 15) 9.8 (NOV 14) 9.1 (NOV 13) 8.6 (NOV 10) . 58-year-old female with ESRD presented to the hospital following a fall at home. ESRD: Continue Tuesday, Tuesday, Tuesday dialysis schedule. Next HD will be on Tuesday, 11/17 Volume overload: Improving - continue to UF with HD. Continue fluid restriction, augment PO diuretics Fall at home/chronic left humerus fracture Anemia in ESRD: Hemoglobin stable, continue MAX BMD: Continue home medications Hypertension: BP stable Electrolytes: Currently stable, modulate with HD Impression and Plan Orders Orders Pharmacy: [facility] (Order): 100 mg, TAB, By mouth, Daily, Start Date: 11/17/2023 12:48 CDT, Duration: 90 Days,Stop date 02/14/2024 9:00 [employer], Routine Lasix (Discontinue): 11/17/2023 12:33 CDT Professional Fees: [facility] F/U Inpatient [id number] (Order): 11/17/2023 12:33 CDT, Neph Providers, Hospital, Combined systolic and diastolic heart failure ESRD on dialysis Anemia Hypoalbuminemia Hypertension. Professional Services Susy Harris NP-BC, am acting as a scribe for Dr. Bailey. Electronically signed by:Susy Temple 11/17/23 12:34 Electronically cosigned by: Leo DUNAWAY, Pako Sherman MD: MODIFY Pako Pimentel MD: MODIFY Event Display: Progress Notes Authored Date: [id number] Hospital Course 58-year-old??female??with a past medical history that includes??end-stage renal disease??on dialysis (Tuesday, Tuesday, and Tuesday),??type 2 diabetes, hypertension. ??Admitted for??falls with subsequent facial??fractures.?? Evaluated by??trauma services??in the emergency department with no acute??n eed.?? ENT??consulted??for facial fractures, no surgical??intervention??needed..?? Orthopedics??consulted as patient was found??to have a chronic left humeral??fracture.?? Outpatient??follow-up recomm ended for this.? The patient did have??anemia which appears??to be close to baseline.?? Plavix??has been held due??to facial??fractures??and hematoma.?? Given multiple??falls and weakness??social work working??on placement.?? Patient otherwise stable for placement.?? Orders??placed and medication reconciliation c ompleted. Subjective Seen in dialysis.?? Admits to having some discomfort this morning while on treatment which she reports is not uncommon, but otherwise denies concerns or complaints. Was denied by initial facility of choice yesterday and was able to meet with case management with new referrals pending. Objective Vitals & Measurements ??Vital Signs (last 24 hrs)?Last Charted?Minimum?Maximum?Temp?97.9 (NOV 15 07:35)?97.9 (NOV 15 07:35)?98.4 (NOV 14 15:49)?Heart Rate?101 (NOV 15 10:00)?84 (NOV 14 23:15)?101 (NOV 15 10:00)?Resp Rate?23 (NOV 15 10:00)?17 (NOV 14 19:27)?23 (NOV 15 08:30)?SBP?126 (NOV 15 10:00)?104 (NOV 14 23:15)?161 (NOV 15 07:35)?DBP?62 (NOV 15 10:00)?57 (NOV 15 07:43)?73 (NOV 14 15:49)?SpO2?100 (NOV 15 10:00)?94 (NOV 14 19:27)?100 (NOV 15:35)?O2?Nasal (NOV 15 10:00)?Room a (NOV 14 15:49)?Room a (NOV 14 15:49)?O2 Flow?2 (NOV 15 10:00)?2 (NOV 14 23:15)?2 (NOV 14 23:15)?Weight?82.7 (NOV 15 05:00)?82.7 (NOV 15 05:00)?82.7 (NOV 15 05:00)?? Physical Exam Gen.:??Sitting up in bed in dialysis.?No acute distress Eye: Conjunctiva pink, sclera white HENT: Head normocephalic. Facial bruising and abrasions appear to be healing with now more of a dark green colored ecchymosis?? Mucous membranes moist Neck:?? Supple, trachea midline. Respiratory: Nonlabored respirations.?? Lungs clear Confirmed.?? frj Cardiovascular: Regular rate and rhythm Confirmed.?? frj Gastrointestinal: Abdomen soft, nondistended, and nontender.?? Normoactive bowel sounds throughout.?? Confirmed.?? frj Musculoskeletal: Freely moves extremities.?? No obvious swelling or deformity. Neurologic: No appreciable acute focal deficits. Integumentary: [place], warm, and dry.?? Psychiatric: Calm, cooperative.?? Assessment/Plan 1.??Macrocytic anemia(Nutritional anemia, unspecified: D53.9) 2.??Combined systolic and diastolic heart failure(Unspecified combined systolic (congestive) and diastolic (congestive) heart failure: I50.40) 3.??Frequent falls(Repeated falls: R29.6) 5.??Type 2 diabetes mellitus with hyperglycemia(Type 2 diabetes mellitus with hyperglycemia: E11.65) 6.??Restless leg syndrome(Restless legs syndrome: G25.81) 7.??Hypertension(Essential (primary) hypertension: I10) 8.??Hyponatremia(Hypo-osmolality and hyponatremia: E87.1) 9.??Hypoalbuminemia(Other disorders of plasma-protein metabolism, not elsewhere classified: E88.09) Anemia(Anemia, unspecified: D64.9) Dependence on renal dialysis(Dependence on renal dialysis: Z99.2) ESRD on dialysis(End stage renal disease: N18.6) Fall at home(Unspecified fall, initial encounter: W19.XXXA) Fracture of left humerus(Unspecified fracture of shaft of humerus, left arm, initial encounter for closed fracture: S42.302A) Fracture of left humerus(Unspecified fracture of shaft of humerus, left arm, initial encounter for closed fracture: S42.302A) Nasal bone fracture(Fracture of nasal bones, initial encounter for closed fracture: S02.2XXA) Nasal bone fracture(Fracture of nasal bones, initial encounter for closed fracture: S02.2XXA) Unspecified place in unspecified non-institutional (private) residence as the place of occurrence of the external cause(Unspecified place in unspecified non- institutional (private) residence as the place of occurrence of the external cause: Y92.009) ? PLAN: ?? Frequent Falls, Facial Fx, Humeral Fx: -ENT consulted. No operative intervention needed for facial Fx. -Orthopedics consulted for concern of chronic left humeral fracture. Appreciate recommendations. 3 View XR with stable Fx noted. OP follow up as needed -Right foot x-ray with no acute fx -PRN PO Dilaudid low dose PO given multiple allergies. PT/OT pending. Anticipating post acute placement. ? ESRD on HD: -Nephrology consulted for dialysis (Tuesday, Tuesday, and Tuesday) schedule. Aranesp per nephrology. ?? ?Chronic Systolic and Diastolic CHF: -Echocardiogram with EF 37%, Grade I DD -No previous echo for comparison -GDMT: On Metoprolol. Allergic to JACEK. No SGLT-2 with ESRD. Lasix 80 mg po daily per nephrology.?? Additional??volume management as??needed with HD.? Iron Def Anemia, Anemia of ESRD: Iron daily.?? Aranesp as above. ?? DM II: blood sugars controlled with no need for supplemental insulin.?? Will d/c protocol. No need to monitor blood sugars regularly. Will d/c insulin. ? Hypothyroid: levothyroxine as current. ?? DVT prophylaxis: Sequential compression devices ?? Dispo:??planning for post acute placement at SNF.?? Additional referrals pending as above.?? Case management following.??Medically stable for when arranged. ?? Discharge orders in. Rx for pain medication on chart. Other Patient seen face to face and examined. ??All information reviewed in detail. ??Agree with NPP evaluation and edited documentation. ??The plan of care is as I have directed. ??FRJ. Medications Medications (13) Active Scheduled: (13) aaPC-DIALYSIS PT ??1 EA, UNSPECIFIED-See comments, Unscheduled cetirizine 10 mg TAB ??5 mg 0.5 tab, By mouth, Daily darbepoetin 60 mcg SYR ??60 mcg 0.3 mL, SubQ, QW (once a week) furosemide 80 mg TAB ??80 mg 1 tab, By mouth, Daily insulin lispro (HumaLOG) 100 units/mL 3 mL PEN ??Medium dose scale, SUBQ, With Meals & Bedtime iron complex 150 mg CAP ??150 mg 1 cap, By mouth, Daily levothyroxine 50 mcg TAB ??50 mcg 1 tab, By mouth, Daily metoprolol SUCCINATE ??ER 50 mg TAB ??50 mg 1 tab, By mouth, Daily miconazole 2% topical POWDER ??1 application, Topical, Q8H miconazole nitrate 2% CREAM (1 TUBE) ??1 application, Topical, BID pantoprazole 40 mg TAB ??40 mg 1 tab, By mouth, Daily rOPINIRole 0.5 mg TAB ??0.5 mg 1 tab, By mouth, at bedtime sodium chloride 0.9% INJ SYR 5 mL ??5 mL, IVP, Q12H Continuous: (0) Lab Results Labs??(Last two charted values on this encounter) WBC 6.4 ??(NOV 13) 6.6 ??(NOV 08) Hgb 8.9 ??(NOV 14) 8.6 ??(NOV 13) Hct 28.2 ??(NOV 14) 27.6 ??(NOV 13) Platelets 303 ??(NOV 13) 246 ??(NOV 08) Na 135 ??(NOV 14) 128 ??(NOV 13) K 4.0 ??(NOV 14) 4.5 ??(NOV 13) Cl 99 ??(NOV 14) 97 ??(NOV 13) CO2 28 ??(NOV 14) 22 ??(NOV 13) BUN 13 ??(NOV 14) 10 ??(NOV 13) Cr 3.09 ??(NOV 14) 4.29 ??(NOV 13) Phos ?4.3 ??(NOV 13) ?? ProteinT ?6.1 ??(NOV 08) ?6.7 ??(NOV 07) Albumin ?2.4 ??(NOV 08) ?2.9 ??(NOV 07) Bilirubin ,Total ??0.3 ??(NOV 08) ??0.3 ??(NOV 07) Alk Phos ?83 ??(NOV 08) ?86 ??(NOV 07) ALT ?<7 ??(NOV 08) ?<7 ??(NOV 07) AST ?12 ??(NOV 08) ?18 ??(NOV 07) Bedside Glucose 112 ??(NOV 15) 106 ??(NOV 14) Glucose,Plasma 125 ??(NOV 14) 102 ??(NOV 13) Electronically signed by:Blessing Fu 11/16/23 11:46 Electronically cosigned by: Pako Pimentel MD 11/16/23 12:52 Consult note * Seven DUNAWAY, Kai Shukla: PERFORM Event Display: Consultation Report Authored Date: [id number] Adams Reason for Consultation ESRD management Chief Complaint pt arrives to ED from home via [facility] with c/o fall this morning from recliner to the ground, -LOC, +thinners, GCS 15. 120/80, NSR 70's. History of Present Illness Ms. Kaiser is a very??pleasant??58 years old lady??with past??medical history??of hypertension, restless??leg syndrome, diabetes??mellitus type 2,??end-stage renal disease??on dialysis??Tuesday??last dialysis??was on Tuesday??did not miss??any??dialysis goes to??for seniors??dialysis unit in [place]??Dorota her outpatient security guard dispatcher??is Dr. Meneses??with [facility], still makes significant??amount??of urine,??does not??remember??her dry??weight??gets??dialysis through right AV fistula.?? Patient thinks??the reason??of her renal failure was use of NSAIDs.? Came??in after slipping??off from her recliner??and hitting her face, and head, patient also??have chronic left humeral fracture.?? Per patient patient??has been sleeping??on a recliner??for??mely stone feels short??of breath if she lies??down??in bed??she is also??facing significant amount of swelling??for several months.?? Not on any??diuretics??at home. ?? pt denies?? nausea, vomiting , burning during micturition, blood in urine, foamy bubbly urine , flank pain , fever , chest pain , abdominal pain, diarrhea, constipation, any new rash Review of Systems Ten systems??reviewed??positives??are added??in history of present illness Physical Exam Vitals & Measurements T:??97.7?F?? TMIN:??97.7?F?? TMAX:??98.8?F?? HR:??78?? RR:??15?? BP:??136/75?? SpO2:??90%?? WT:??90.2??kg? Gen: NAD, cooperative. ?? HEENT: throat clear.Mucous membranes are moist ?? Skin: warm, dry. ?? Lungs: unlabored breathing, equal chest expansion NAKUL ?? Abd: soft, nontender, non distended ?? Exts:??++ ??nakul ankle edema ?? Neuro: awake, follow commands appropriately ?? Psych: normal mood & affect. ? Assessment/Plan 1.??Nasal bone fracture(Fracture of nasal bones, initial encounter for closed fracture: S02.2XXA) 2.??Fracture of left humerus(Unspecified fracture of shaft of humerus, left arm, initial encounter for closed fracture: S42.302A) 3.??Macrocytic anemia(Nutritional anemia, unspecified: D53.9) 4.??Frequent falls(Repeated falls: R29.6) 5.??ESRD (end stage renal disease)(End stage renal disease: N18.6) 6.??Type 2 diabetes mellitus with hyperglycemia(Type 2 diabetes mellitus with hyperglycemia: E11.65) 7.??Restless leg syndrome(Restless legs syndrome: G25.81) 8.??Hypertension(Essential (primary) hypertension: I10) 9.??Hyponatremia(Hypo-osmolality and hyponatremia: E87.1) 10.??Hypoalbuminemia(Other disorders of plasma-protein metabolism, not elsewhere classified: E88.09) Orders: albumin human, 25 g = 100 mL, INJ, IVP, as needed, PRN, Blood Pressure Control, Start Date: 11/08/23 15:07:00 CDT, Duration: 90 Days, Stop date 02/06/24 15:06:00 CDT, Routine, Disp Location: [facility] ER 1235, GEN DISP alteplase, 2 mg = 2 mL, INJ, DIAL, as needed, PRN, See Comment Note, Start Date: 11/08/23 15:07:00 CDT, Duration: 90 Days, Stop date 02/06/24 15:06:00 CDT, Routine, Disp Location: [facility], GEN DISP lidocaine, 5 mg, 0.5 mL, INJ, Route: IDERM, as needed, PRN, See Comment Note, Start Date: 11/08/23 15:07:00 CDT, Duration: 90 Days, Stop date: 02/06/24 15:06:00 CDT, Routine, Disp Location: [facility] ER CH[facility], GEN DISP Pharmacy Consult - Dialysis Patient, 1 EA, Unspecified, UNSPECIFIED-See comments, Unscheduled, Start Date: 11/08/23 15:07:00 CDT, Duration: 90 Days, Stop date 02/06/24 15:06:00 CDT, Routine, Disp Location: [facility] Sodium Chloride 0.9% intravenous solution, 200 mL, IVPB, Route: IVPB, as needed, PRN, Blood Pressure Control, Start Date: 11/08/23 15:07:00 CDT, Duration: 90 Days, Stop date: 02/06/24 15:06:00 CDT, Routine, Rate= 0 ml/hr, Infuse Over: 0 hr, Total Volume ml = 200, Disp Location: [facility] sodium citrate, 3 mL, INJ, Route: DIAL, as needed, PRN, Flush, Start Date: 11/08/23 15:07:00 CDT, Duration: 90 Days, Stop date: 02/06/24 15:06:00 CDT, Routine, Rate= 180 ml/hr, Infuse Over: 1 min, Total Volume ml = 3, Disp Location: [facility], GEN DISP Blood Pressure, Increase frequency if unstable Consent, Hemodailysis Dialysis Potassium Bath Protocol Hemodialysis Hepatitis Bc Ab IgM Hepatitis Bs Antibody Hepatitis Bs Antigen Isolated Ultrafiltration Notify Provider, Notify provider if systolic BP greater than 200mmHg or if diastolic BP greater than 120mmHg Nursing Communication Order, If patient is being transferred to outpatient dialysis center, may place order for TB skin test if one has not been completed in the last 12 months Nursing Communication Order, If susceptible, Hepatitis Bs Antibody is less than 10mlU/ml, Repeat Hepatitis Bs Antigen every month Nursing Communication Order, HOLD heparin bolus when bleeding, suspected bleeding, reported bleeding, active bleeding, immediate post-operative (24hr), immediate post catheter placement (24hr), eye surgery or major dental procedures (i.e. tooth extraction) Orthostatic Vital Signs, Post dialysis unless patient is wheelchair bound or in a bed Oxygen Protocol, Adult Pulse Rate, Increase frequency if unstable Temperature, Pre and Post Dialysis Vital Signs, Pre Dialysis ? ASSESSMENTS? 1. END-STAGE??RENAL DISEASE??ON DIALYSIS Tuesday 2.??Fall/nose bone fracture 3.??Edema 4. 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 7. Hypertension ?? PLAN? Dialysis planned for a.m.??with fluid removal Plan??is to avoid??anticoagulation during??dialysis due to recent??fall and fracture Start Lasix??80 mg p.o. daily Start??oral iron Start Aranesp??per??protocol?? Start Nepro??1??can b.i.d. ?? Care plan discussed with??patient's??mother in presence??of patient's at bedside, all questions answered,??she expressed??understanding ?? Thank??you for letting??us??participate??in the care of??this interesting??patient we will continue to follow??along with??primary team Problem List/Past Medical History Ongoing ESRD (end stage renal disease) Hypertension Restless leg syndrome Type 2 diabetes mellitus with hyperglycemia Historical No qualifying data Procedure/Surgical History ???Fistula to Right arm ()???Neck fusion (2014)???Appendectomy (1999)???cholecystectomy (1999)???Tonsillectomy (1978)???Arteriovenous fistula, left???bilateral carpal tunnel??? x 2???graft to left arm???hemodialysis catheter placement Medications Medication List ? Active Medications ?Ordered ? albumin human: 25 g, 100 mL, IVP, as needed, PRN: Blood Pressure ? Control. ? alteplase: 2 mg, 2 mL, DIAL, as needed, PRN: See Comment Note. ? benzocaine-menthol topical: 1 lozenge, By mouth, as needed, PRN: Sore ? Throat. ? Dextrose 10% in Water: per scale or Glucommander, IVP, as directed, ? PRN: Hypoglycemia Severe. ? docusate: 100 mg, 1 cap, By mouth, BID, PRN: Constipation. ? glucagon: 1 mg, 1 mL, IM, as directed, PRN: Hypoglycemia Severe. ? glucose: 16 g, 4 tab, By mouth, as directed, PRN: See Comment Note. ? glucose: 15 g, 1 tube, By mouth, as directed, PRN: See Comment Note. ? insulin lispro: Medium dose scale, SUBQ, With Meals & Bedtime. ? Juice (orange/apple): 15 g, 118 mL, By mouth, as directed, PRN: See ? Comment Note. ? lidocaine: 5 mg, 0.5 mL, IDERM, as needed, PRN: See Comment Note. ? Melatonin: 3 mg, 1 tab, By mouth, at bedtime, PRN: Sleep. ? miconazole topical: 1 application, Topical, Q8H, PRN: Skin Protection. ? miconazole topical: 1 application, Topical, Q8H. ? morphine: 2 mg, 0.5 mL, IVP, Q4H, PRN: Pain Moderate (4-6) (2nd Line). ? morphine: 4 mg, 1 mL, IVP, Q4H, PRN: Pain Severe (2nd Line). ? ondansetron: 4 mg, 2 mL, IVP, Q8H, PRN: Nausea and Vomiting. ? Pharmacy Consult - Dialysis Patient: 1 EA, UNSPECIFIED-See comments, ? Unscheduled. ? sodium chloride: 1 spray, Both Nostrils, as needed, PRN: Dry ? Nose/Congestion. ? Sodium Chloride 0.9% intravenous solution: 200 mL, 0 ml/hr, IVPB, as ? needed, PRN: Blood Pressure Control. ? sodium chloride flush: 5 mL, IVP, Q12H. ? sodium chloride flush: 5 mL, IVP, Q10Min, PRN: See Comment Note. ? sodium citrate: 3 mL, 180 ml/hr, DIAL, as needed, PRN: Flush. ?Documented ? amLODIPine: 5 mg, 1 tab, By mouth, Daily, 0 Refill(s). ? cetirizine: 10 mg, By mouth, BID, 0 Refill(s). ? clopidogrel: 75 mg, By mouth, Daily, Will check with provider (Ana ? Erin ALBA at [facility]) and see when patient needs to ? stop - will have proof follow up with patient., 0 Refill(s). ? cyclobenzaprine: 5 mg, 1 tab, By mouth, as needed, PRN: Pain Mild or ? Temp (2nd Line), 0 Refill(s). ? diclofenac topical: See Instructions, 2 g, 0 Refill(s). ? diphenhydrAMINE: 25 mg, By mouth, at bedtime, 0 Refill(s). ? escitalopram: 20 mg, 1 tab, By mouth, Daily, 30 tab, 0 Refill(s). ? ferric citrate: See Instructions, 420 mg By mouth, 0 Refill(s). ? gabapentin: 100 mg, 1 cap, By mouth, TID, 0 Refill(s). ? insulin aspart: 12 Units, SubQ, TIDAC (three times a day before ? meals), 0 Refill(s). ? insulin degludec: 55 Units, SubQ, Daily, 0 Refill(s). ? levothyroxine: 75 mcg, By mouth, Daily, 0 Refill(s). ? liraglutide: 1.8 mg, SubQ, Daily, 0 Refill(s). ? Melatonin: 3 mg, By mouth, at bedtime, Hold melatonin dose the night ? prior to procedure on 12/05/20., 0 Refill(s). ? metoprolol: 200 mg, 1 tab, By mouth, Daily, 0 Refill(s). ? omeprazole: 20 mg, By mouth, at bedtime, 0 Refill(s). ? rOPINIRole: 0.25 mg, 1 tab, By mouth, at bedtime, 0 Refill(s). ? Special Drug Order-MED: 1 cap, By mouth, Daily, 0 Refill(s). ? Special Drug Order-MED: 1 cap, By mouth, at bedtime, 0 Refill(s). ? Special Drug Order-MED: 10mg tabs - take .5tab, By mouth, takes on ? dialysis days for restless legs, 0 Refill(s). ? Medications Inactivated in the Last 72 Hours ? morphine: 4 mg, 1 mL, IVP, ONCE. ? ondansetron: 4 mg, 2 mL, IVP, ONCE. ? perflutren: 0.3 mL, IVP, ONCE. Allergies Latex??(anaphylaxsis - throat closes up) Percocet 7.5/325??(Swollen face, Hives, Vicodin) Phenergan??( caused whole body to jerk uncontrollably) contrast media (iodine-based)??( just about stopped my heart ) Adhesive??(Rash, NOS, Blisters) NSAIDs??(as a child, hives) Neurontin??(Hives) Tylenol??(Hives) Vicodin??(Hives) lisinopril??(Cough) traMADol??(Speech impairment) Social History Social History Alcohol ??Denies Substance Abuse ??Denies Tobacco ??Smoking Status: Never smoker. ??Smokeless tobacco use: Never. Family History Diabetes mellitus: MOTHER. Heart disease: MOTHER, FATHER, MGF, MGM, PGF and UNCLE. Hypertension: MOTHER, MGF and MGM. Prostate cancer.: FATHER. Stroke: FATHER, MGF, MGM and PGM. Lab Results Labs??(Last two charted values on this encounter) WBC 7.7 ??(NOV 07) ?? Hgb 7.9 ??(NOV 07) 7.7 ??(NOV 07) Hct 25.2 ??(NOV 07) 25.4 ??(NOV 07) Platelets 282 ??(NOV 07) ?? Na 131 ??(NOV 07) ?? K 3.6 ??(NOV 07) ?? Cl 96 ??(NOV 07) ?? CO2 31 ??(NOV 07) ?? BUN 15 ??(NOV 07) ?? Cr 3.42 ??(NOV 07) ?? ProteinT ?6.7 ??(NOV 07) ?? Albumin ?2.9 ??(NOV 07) ?? Bilirubin ,Total ??0.3 ??(NOV 07) ?? Alk Phos ?86 ??(NOV 07) ?? ALT ?<7 ??(NOV 07) ?? AST ?18 ??(NOV 07) ?? Bedside Glucose 74 ??(NOV 07) 114 ??(NOV 07) Glucose,Plasma 138 ??(NOV 07) ?? Electronically signed by:Kai Amezcua MD 11/08/23 23:49 History and physical note * Alejandrina Mast: PERFORM, MODIFY, MODIFY, MODIFY Event Display: History and Physicals Authored Date: [id number] Chief Complaint pt arrives to ED from home via [facility] [employer] with c/o fall this morning from recliner to the ground, -LOC, +thinners, GCS 15. 120/80, NSR 70's. Arrival Date/Time??- 11/08/2023 09:51:00 History of Present Illness 58-year-old??female??with a past medical history that includes??end-stage renal disease??on dialysis (Tuesday, Tuesday, and Tuesday),??type 2 diabetes, hypertension. ??His??back to the emergency department via??helicopter??for concern??after??the patient had a fall at home.?? Per??emergency departme nt??note, the patient had decrease in sleep recently, and??fell asleep while in the recliner.?? Shehad a fall from her recliner and hit her head on??carpeted??floor.?? Patient was brought??to the emergency department via??air??care.?? ENT??consulted.?? Orthopedics??consulted as patient was found??to have a chronic left humeral??fracture.?? Hospitalist??called??for admission. Of note, last dialysis on??11/06. ?? Patient was??seen and??examined in the emergency department.?? History is difficult to obtain??frompatient at this time, as??patient is resting.?? She is able??to share??her name.?? She initially shares she is not??in pain.?Later shares she??has??had an??abdominal??pain.?? History is primarily obtained??from emergency??department??note as noted above. ?? Discussed with patient's son via phone conference. Shares she fell from chair around 0800 am on 11/07.?? She was sluggish after the fall. Son told his sister to call 911, because it was hard to gethis mom up after the fall, and because?? it looked bad. ??He reports she has been having??increasedfalls at home, from the recliner.??They have had to have EMS??come to help her get??up after??fallsin the past.??No known history of seizures. She has restless leg syndrome. He shares she will move while she sleeps, and this leads her to fall.??She lives at home with him, and he believes she wouldbenefit from going to a place after discharge for additional care and support, as it has been difficult for her to be cared for at home. Of note,??the patient??goes to [place] for dialysis, and has dialysis on Tuesday, Tuesday, and Tuesday. Review of Systems Difficult??to obtain at??this??time due to current state. Physical Exam Vitals & Measurements T:??98.8?F?? HR:??80?? RR:??18?? BP:??139/66?? SpO2:??100%?? WT:??90.2??kg?? Physical Examination General: Resting in bed. Difficult to arouse. Does not appear to be??in acute distress HEENT: Trauma noted on the frontal aspect of her head. Laceration on forehead. Trauma to??nose. Edema and ecchymosis noted on frontal aspect of head, and proximal to nose.? Respiratory: Lungs are clear to auscultation, Respirations are non-labored Cardiovascular: Regular rate and rhythm. No apparent lower extremity pitting edema Abdominal: Soft, non-tender, non-distended. Bowel sounds present. Musculoskeletal: Full exam differed due to current medical state. 2+ radial, posterior tibialis, and dorsalis pedal pulses bilaterally Integumentary: Warm, Dry. Laceration noted on forehead. Erythema noted below abdominal fold bilaterally, with odor Neurologic: Full exam differed due to current medical state Psychiatric: Sleeping in bed. Difficult to arouse at this time Assessment/Plan 1.??Nasal bone fracture(Fracture of nasal bones, initial encounter for closed fracture: S02.2XXA) 2.??Fracture of left humerus(Unspecified fracture of shaft of humerus, left arm, initial encounter for closed fracture: S42.302A) 3.??Macrocytic anemia(Nutritional anemia, unspecified: D53.9) 4.??Frequent falls(Repeated falls: R29.6) 5.??ESRD (end stage renal disease)(End stage renal disease: N18.6) 6.??Type 2 diabetes mellitus with hyperglycemia(Type 2 diabetes mellitus with hyperglycemia: E11.65) 7.??Restless leg syndrome(Restless legs syndrome: G25.81) 8.??Hypertension(Essential (primary) hypertension: I10) 9.??Hyponatremia(Hypo-osmolality and hyponatremia: E87.1) 10.??Hypoalbuminemia(Other disorders of plasma-protein metabolism, not elsewhere classified: E88.09) ?? Plan of care: -ENT consulted in the emergency department. Appreciate recommendations -Orthopedics consulted for concern of chronic left humeral fracture. Appreciate recommendations Sling was recommended in the emergency department. -Nephrology consulted for dialysis (Tuesday, Tuesday, and Tuesday) schedule -Echocardiogram ordered -H&H every 8 hours ordered to trend hemoglobin. Transfuse to keep hemoglobin > 7.0 -Iron, TIBC, ferritin, and percent transferrin ordered. Vitamin B12 serum level ordered -Right foot x-ray ordered, as family??member reported the patient has a sore on their foot ?? -Medium dose sliding scale as indicated and HgA1c ordered -Miconazole ordered for skin irritation below abdominal fold bilaterally -Telemetry ordered -Ammonia level ordered. Morning labs ordered -Speech therapy consultation ordered -SWOT team consulted -Physical and occupational therapy ordered -Social work consulted ?? DVT prophylaxis: Sequential compression devices Code status: Full, discussed with patient's son PCP: Vivienne Schulz NP ?? Plan in collaboration with Dr. Adams. ?? ZUHAIR Flores Problem List/Past Medical History Ongoing ESRD (end stage renal disease) Hypertension Restless leg syndrome Type 2 diabetes mellitus with hyperglycemia Historical No qualifying data Procedure/Surgical History ???Fistula to Right arm ()???Neck fusion (2014)???Appendectomy (2000)???cholecystectomy (1999)???Tonsillectomy (1978)???Arteriovenous fistula, left???bilateral carpal tunnel??? x 2???graft to left arm???hemodialysis catheter placement Medications Home Medications (16) Active Benadryl??50 mg, By mouth, at bedtime Carb/Lorb??10mg tabs - take .5tab, By mouth cetirizine??10 mg, By mouth, Daily Flexeril 5 mg oral tablet??5 mg = 1 tab, PRN, By mouth, TID levothyroxine??75 mcg, By mouth, Daily Lexapro 20 mg oral tablet??20 mg = 1 tab, By mouth, Daily Melatonin??3 mg, By mouth, at bedtime Metoprolol Succinate ER 200 mg oral tablet, extended release??200 mg = 1 tab, By mouth, Daily Luisa Plus Supplement??1 cap, By mouth, Daily NovoLOG FlexPen 100 units/mL injectable solution??12 Units, SubQ, TIDAC (three times a day before meals) omeprazole??, By mouth, at bedtime Plavix??75 mg, By mouth, Daily Renal plex??1 cap, By mouth, at bedtime Requip 0.25 mg oral tablet??0.25 mg = 1 tab, By mouth, at bedtime Tresiba FlexTouch 100 units/mL subcutaneous solution??55 Units, SubQ, Daily Victoza 18 mg/3 mL subcutaneous solution??1.8 mg, SubQ, Daily Allergies Latex??(anaphylaxsis - throat closes up) Phenergan??( caused whole body to jerk uncontrollably) contrast media (iodine-based)??( just about stopped my heart ) Adhesive??(Rash, NOS, Blisters) NSAIDs??(as a child, hives) Neurontin??(Hives) Percocet 7.5/325??(Hives, Vicodin) Tylenol??(Hives) Vicodin??(Hives) lisinopril??(Cough) traMADol??(Speech impairment) Social History Social History Alcohol ??Denies Substance Abuse ??Denies Tobacco ??Smoking Status: Never smoker. ??Smokeless tobacco use: Never. Family History Diabetes mellitus: MOTHER. Heart disease: MOTHER, FATHER, MGF, MGM, PGF and UNCLE. Hypertension: MOTHER, MGF and MGM. Prostate cancer.: FATHER. Stroke: FATHER, MGF, MGM and PGM. Lab Results Labs??(Last two charted values on this encounter) WBC 7.7 ??(NOV 07) ?? Hgb 7.5 ??(NOV 07) ?? Hct 24.0 ??(NOV 07) ?? Platelets 282 ??(NOV 07) ?? Na 131 ??(NOV 07) ?? K 3.6 ??(NOV 07) ?? Cl 96 ??(NOV 07) ?? CO2 31 ??(NOV 07) ?? BUN 15 ??(NOV 07) ?? Cr 3.42 ??(NOV 07) ?? ProteinT ?6.7 ??(NOV 07) ?? Albumin ?2.9 ??(NOV 07) ?? Bilirubin ,Total ??0.3 ??(NOV 07) ?? Alk Phos ?86 ??(NOV 07) ?? ALT ?<7 ??(NOV 07) ?? AST ?18 ??(NOV 07) ?? Bedside Glucose 132 ??(NOV 07) ?? Glucose,Plasma 138 ??(NOV 07) ?? Diagnostic Results Radiology Results:?? XR Humerus 2 View Left - ??Auth (Verified) - 11/08/23 10:58 ( Danny Lira MD )?? IMPRESSION: Humeral head and neck fracture as described above. ??Electronically signed by: Danny Lira MD, ??[facility], 11/08/2023 11:31 ?? XR Chest 1 View - ??Auth (Verified) - 11/08/23 10:20 ( Danny Lira MD )?? IMPRESSION: No acute findings. ??Electronically signed by: Danny Lira MD, ??[facility], 11/08/2023 10:45 ?*PRELIMINARY*?? CT Facial Bones - ??Transcribed - 11/08/23 10:59 ( Ajay DUNAWAY, Vic Ang )?? IMPRESSION:1. Mid frontal superficial hematoma and prenasal induration. Suspect linear fracture through the nasal bones and at the junction with the nasal septum. ? CT Cervical Spine wo Contrast - ??Transcribed - 11/08/23 10:53 ( Vic Moss MD )?? IMPRESSION: Images degraded by noise and quantum mottling. ?? No evidence of acute osseous injury of the cervical spine, given limitations of study. ? CT Head wo Contrast - ??Transcribed - 11/08/23 10:52 ( Vic Moss MD )?? IMPRESSION:1. ??No CT evidence for acute intracranial abnormality. ?? 2. ??Zone of encephalomalaciainvolving the right posterior insula, parietal, and temporal lobes, with curvilinear/gyriform-like calcification, likely from prior infarction and/or hemorrhage. ??Mild ex vacuo dilatation of the adjacent ventricular system; no hydrocephalus. 3. ??Gripper Attacher view shows fracture of the left humeral neck.4. ??Mid frontal superficial hematoma; please refer to trustee of estate facial CT.?? Electronically signed by:Alejandrina Mast 11/08/23 14:31 Electronically cosigned by: Alejandrina Mast 11/08/23 14:32 Electronically cosigned by: Alejandrina Mast 11/08/23 14:33 * Gio Adams DO: PERFORM Event Display: History and Physicals Authored Date: Patient seen independently of Kim MOFFETT. Case and plan discussed and agreed upon. Patient resting in bed, tired after medications for pain. History limited. On exam heart RRR. Lungs CTAB. Abrasion on forehead, bruising about face. ?? PLAN: Follow Hgb, holding Plavix for now. Iron studies.??Appreciate ENT, Ortho, Nephro consults. Advance diet with no immediate surgery planned. PRN for pain as above. No changes to above plan, directed bymyself. ?? Electronically signed by:Gio Adams DO 11/09/23 07:19 Discharge summary * Pako Pimentel MD: MODIFY Abramovitz PA, Blessing A: PERFORM Event Display: Discharge Summary Authored Date: [id number] Discharge Information Admit date:11/08/2023 Discharge date:11/17/2023 Attending Physician:Pako Pimentel MD Consulting Physician:;Megan DUNAWAY, Raffy Irvin;Dario Araujo DO Admitting Physician:Gio Adams DO Discharge Diagnosis Nasal bone fracture Fall at home Frequent falls Fracture of left humerus Dependence on renal dialysis ESRD on dialysis Macrocytic anemia Combined systolic and diastolic heart failure Type 2 diabetes mellitus with hyperglycemia Restless leg syndrome Hypertension Hyponatremia Hypoalbuminemia Admission History History of Present Illness 58-year-old??female??with a past medical history that includes??end-stage renal disease??on dialysis (Tuesday, Tuesday, and Tuesday),??type 2 diabetes, hypertension. ??His??back to the emergency department via??helicopter??for concern??after??the patient had a fall at home.?? Per??emergency departme nt??note, the patient had decrease in sleep recently, and??fell asleep while in the recliner.?? Shehad a fall from her recliner and hit her head on??carpeted??floor.?? Patient was brought??to the emergency department via??air??care.?? ENT??consulted.?? Orthopedics??consulted as patient was found??to have a chronic left humeral??fracture.?? Hospitalist??called??for admission. Of note, last dialysis on??11/06. ?? Patient was??seen and??examined in the emergency department.?? History is difficult to obtain??frompatient at this time, as??patient is resting.?? She is able??to share??her name.?? She initially shares she is not??in pain.?Later shares she??has??had an??abdominal??pain.?? History is primarily obtained??from emergency??department??note as noted above. ?? Discussed with patient's son via phone conference. Shares she fell from chair around 0800 am on 11/07.?? She was sluggish after the fall. Son told his sister to call 911, because it was hard to gethis mom up after the fall, and because?? it looked bad. ??He reports she has been having??increasedfalls at home, from the recliner.??They have had to have EMS??come to help her get??up after??fallsin the past.??No known history of seizures. She has restless leg syndrome. He shares she will move while she sleeps, and this leads her to fall.??She lives at home with him, and he believes she wouldbenefit from going to a place after discharge for additional care and support, as it has been difficult for her to be cared for at home. Of note,??the patient??goes to [place] for dialysis, and has dialysis on Tuesday, Tuesday, and Tuesday. [1] Hospital Course Ms Kaiser was admitted to the Hospitalist service??for??falls with subsequent facial??fractures.??Evaluated by??ENT with no recommendations for intervention.?? Evaluated by orthopedic trauma service as well whom noted humerus fracture was subacute and healing with no additional plans for intervent ion or further imaging/ work up. She was treated supportively for pain.?? Acute care therapies wereconsulted and post acute placement was recommended at a long term facility for ongoing??PT and OT.? Nephrology followed along due to ESRD and she continued on hemodialysis per her routine schedule.? Vitals & Measurements ??Vital Signs (last 24 hrs)?Last Charted?Minimum?Maximum?Temp?97.5 (NOV 16 07:34)?97.5 (NOV 15 23:14)?98.7 (NOV 15 15:00)?Heart Rate?98 (NOV 16 08:08)?82 (NOV 16 03:46)?118 (NOV 15 11:57)?Resp Rate?18 (NOV 16 07:34)?17 (NOV 16 03:46)?C??30(NOV 15 11:00)?SBP?123 (NOV 16:34)?99 (NOV 15 18:55)?132 (NOV 15 15:00)?DBP?72 (NOV 16:34)?57 (NOV 15 11:00)?79 (NOV 15 15:00)?SpO2?94 (NOV 16:34)?C??80(NOV 15 11:19)?100 (NOV 15 10:30)?O2?Room a (NOV 16:)?Nasal (NOV 15:30)?Nasal (NOV 15:30)?O2 Flow?2 (NOV 15 19:08)?2 (NOV 15 10:30)?2 (NOV 15 10:30)?Weight?83 (NOV 16 05:00)?83 (NOV 16 05:)?83 (NOV 16 05:)?? Physical Exam Gen.:??Resting in bed.?No acute distress Eye: Conjunctiva pink, sclera white HENT: Head normocephalic. Facial bruising and abrasions appear to be healing.?? Mucous membranes moist Neck:?? Supple, trachea midline. Respiratory: Nonlabored respirations.?? Lungs clear Confirmed.?? frj Cardiovascular: Regular rate and rhythm Confirmed.?? frj Gastrointestinal: Abdomen soft, nondistended Confirmed.?? frj Musculoskeletal: Freely moves extremities.?? No obvious swelling or deformity. Neurologic: Occasional conversational confusion noted. No appreciable acute focal deficits. Integumentary: [place], warm, and dry.?? Psychiatric: Calm, cooperative.?? Subspecialty Recommendations ??subacute healing L displaced comminuted proximal humerus fracture sustained from a previous fall and was previously being managed non-operatively with a sling by [facility].?? No pain reported on exam or elicited with PROM abduction to 90 degrees with the L shoulder.?? No further imaging needed at this time.?? Recommend continued non-operative management and to follow-up with Leisa Benitez discharge.?? She may wear a sling for comfort but needs to come out of sling for PT/OT for exercises to start to ROM shoulder, elbow, and wrist to prevent stiffness. Ortho Trauma will sign off. Call with any questions or concerns. [2] Patient Discharge Condition stable. ?? Patient seen and examined at the time of discharge. ??Discharge instructions personally given topatient. ??Discharge plan of care reviewed and discussed with patient. ??I have reviewed and agree with documented and edited summary. ? FRJ. ?? Discharge Orders Fine Arts Teacher 11/08/23 15:47:00 CDT, Other, Physician Order Order Comment: Discharge planning ?? Discharge 11/15/23 7:59:00 CDT, Senior Living Facility ? Discharge Work/School/Daycare Restrictions 11/15/23 7:59:00 CDT, Return to work in: No Restrictions ? Facility Discharge Plan 30 days, 11/15/23 7:59:00 CDT ? Facility Discharge Occupational Therapy Eval and Treat 11/15/23 7:59:00 CDT ? Facility Discharge Physical Therapy Eval and Treat 11/15/23 7:59:00 CDT ? Facility Discharge Code Status 11/15/23 7:59:00 CDT, Full Code ? Facility Discharge Dialysis 11/15/23 7:59:00 CDT, Hemodialysis M-W-F ? Medications Home Medications (17) Active Auryxia 210 mg oral tablet??420 mg = 2 tab, By mouth, with meals carbidopa-levodopa 25 mg-100 mg oral tablet??0.5 tab, By mouth, as directed cetirizine??10 mg, By mouth, BID darbepoetin gume 60 mcg/0.3 mL injectable solution??60 mcg = 0.3 mL, SubQ, QW (once a week) gabapentin 100 mg oral capsule??100 mg = 1 cap, By mouth, TID HYDROmorphone 2 mg oral tablet??1 mg = 0.5 tab, PRN, By mouth, Q8H iron polysaccharide 150 mg (elemental iron) oral capsule??150 mg = 1 cap, By mouth, Daily Lasix 80 mg oral tablet??80 mg = 1 tab, By mouth, Daily levothyroxine 50 mcg (0.05 mg) oral tablet??50 mcg = 1 tab, By mouth, Daily Lexapro 20 mg oral tablet??20 mg = 1 tab, By mouth, Daily omeprazole 20 mg oral delayed release capsule??20 mg = 1 cap, By mouth, Daily pantoprazole 40 mg oral delayed release tablet??40 mg = 1 tab, By mouth, Daily RenaPlex-D oral tablet??1 tab, By mouth, Daily rOPINIRole 0.5 mg oral tablet??0.5 mg = 1 tab, By mouth, at bedtime rosuvastatin 20 mg oral tablet??20 mg = 1 tab, By mouth, Daily Toprol-XL 50 mg oral tablet, extended release??50 mg = 1 tab, By mouth, Daily Voltaren 1% topical gel??See Instructions Medication reconciliation completed on this patient today Pending Labs PENDING LABS No Laboratory Orders Pending ? Lab Results Labs??(Last two charted values on this encounter) WBC 6.4 ??(NOV 13) 6.6 ??(NOV 08) Hgb 9.2 ??(NOV 15) 8.9 ??(NOV 14) Hct 29.1 ??(NOV 15) 28.2 ??(NOV 14) Platelets 303 ??(NOV 13) 246 ??(NOV 08) Na 135 ??(NOV 15) 135 ??(NOV 14) K 3.6 ??(NOV 15) 4.0 ??(NOV 14) Cl 99 ??(NOV 15) 99 ??(NOV 14) CO2 26 ??(NOV 15) 28 ??(NOV 14) BUN <5 ??(NOV 15) 13 ??(NOV 14) Cr 1.53 ??(NOV 15) 3.09 ??(NOV 14) Phos ?1.4 ??(NOV 15) ?4.3 ??(NOV 13) ProteinT ?7.4 ??(NOV 15) ?6.1 ??(NOV 08) Albumin ?3.7 ??(NOV 15) ?2.4 ??(NOV 08) Bilirubin ,Total ??0.6 ??(NOV 15) ??0.3 ??(NOV 08) Alk Phos ?85 ??(NOV 15) ?83 ??(NOV 08) ALT ?<7 ??(NOV 15) ?<7 ??(NOV 08) AST ?17 ??(NOV 15) ?12 ??(NOV 08) Bedside Glucose 112 ??(NOV 15) 101 ??(NOV 15) Glucose,Plasma 166 ??(NOV 15) 125 ??(NOV 14) Diagnostic Results Radiology Results:?? CT Facial Bones - 11/09/23 07:37 ( Ajay DUNAWAY, Vic Ang )?? IMPRESSION:1. ?? Mid frontal superficial hematoma and prenasal induration. ?? Suspect linear fracture through the nasal bones and at the junction with the nasal septum. ?? Electronically signed by: Dr Vic Moss ??11/09/2023 7:37 AM ?? CT Cervical Spine wo Contrast - 11/09/23 07:37 ( Ajay DUNAWAY, Vic Ang )?? IMPRESSION: Images degraded by noise and quantum mottling. ??No evidence of acute osseous injury ofthe cervical spine, given limitations of study. Electronically signed by: Dr Vic Moss ??47:37 AM ?? CT Head wo Contrast - 11/09/23 07:37 ( Ajay DUNAWAY, Vic Ang )?? IMPRESSION:1. No CT evidence for acute intracranial abnormality. ??2. Zone of encephalomalacia involving the right posterior insula, parietal, and temporal lobes, with curvilinear/gyriform-like calcification, likely from prior infarction and/or hemorrhage. Mild ex vacuo dilatation of the adjacent ve ntricular system; no hydrocephalus. ?? 3. Gripper Attacher view shows fracture of the left humeral neck. ?? 4.Mid frontal superficial hematoma; please refer to trustee of estate facial CT. ?? Electronically signed by:Dr Vic Moss ??11/09/2023 7:37 AM ?? XR Shoulder 3 View Left Routine - 11/08/23 18:02 ( Pankaj DUNAWAY, Danny Horowitz )?? IMPRESSION: Unchanged proximal humeral fracture. No other findings in the shoulder. ??Electronically signed by: Danny Lira MD, ??[facility], 11/09/2023 14:36 ?? ECHO Adult Complete - 11/08/23 14:52 ( Car DUNAWAY, Uzochukwu )?? Conclusions:- 1. ??The left ventricular systolic function is markedly reduced at 37%. 2. ?? Moderate pulmonary hypertension with an RVSP of 56 mmHg. ?? 3. ??No priors. ??FindingsProcedure InformationThe quality of the study was technically difficult. ?? Definity was administered per protocol without apparent complications. Left VentricleNormal left ventricular cavity size. ?? There is normal leftventricular wallthickness. ?? The left ventricular systolic function is moderately decreased. ??Thecalculated ejection fraction is 37% by biplane method. ?? There ismoderate global hypokinesis. ?? E/E prime ratio is >15, consistent withelevated filling pressures. ?? Evidence suggests (grade I) d iastolicdysfunction with abnormal relaxation pattern. Right VentricleNormal right ventricular cavity size and systolic function. AtriaThe left atrium is normal in size. ?? The right atrium is normal in size. Aortic ValveNormal aortic valve structure and function. ?? There is a trileaflet aorticvalve. ?? There is mild calcification of the aortic valve. ?? There is mildsclerosis of the aortic valve. Mitral ValveThere is mild anterior and posterior mitral leaflet thickening. ??There ismild mitral annular calcification. ?? There is trace mitral valveregurgitation. Pulmonic ValveThe pulmonic valvewas not well visualized. ?? There is trace pulmonic valveregurgitation. Tricuspid ValveThere is mild tricuspid valve regurgitation. ?? Moderate pulmonaryhypertension is present. Great VesselsNo dilatation of the aortic root. ?? The visualized portions of the pulmonaryartery and branches are normal.VenousThe inferior vena cava is normal in size and collapses greater than 50% withinspiration. Peric ardium/PleuralNormal pericardial structure. ? Measurements ??2D Linear MeasurementsRVIDd:?? 3. 20RVIDd Mid: ??2. 50RVIDd Index: ?? 1. 72IVSd: 0. 90 0. 6-0. 9/0. 6-1. 0 cmLVIDd: ?? 4. 40 3.9-5. 3/4. 2-5. 9 cmLVIDd Index: ?? 2. 37 2. 4-3. 2/2. 2-3. 1 cm/n1XDNJr: ?? 3. 90 2. 0-3. 6 cmLVPWd: ?? 1. 00 0. 7-1. 1 cmAo Root: 2. 70 2. 1-3. 5 cmLA Diam: 3. 50 2. 7-3. 8/3. 0-4. 0 cmLAIDs Index: ? ? 1. 88 1. 5-2. 3 cm/m2LV Mass: 171. 46 ??67-162/88-224 gLV Mass Index: 92. 18 ?? 43-95/49-115 g/m2RA Area,s: ??11. 40LA Area,s: ??13. 70 ?? 2D VolumesLA ESV BP: ??27. 00LA ESV BP Index: ??14. 50LA ESV MOD A2C: ?? 21. 40LA ESV MOD A2C Index: ?? 11. 50LA ESV MOD A4C: ?? 33. 00LA ESV MOD A4C Index: ?? 17. 70 ?? 2D Systolic FunctionEF 4C: ?? 37. 10 ?? >55%EF 2C: ?? 37. 10 ?? >55%EF BiP: ??37. 2 0 ?? >55% ? Mitral ValveMV Pk E: 1. 15MV PK A: 0. 61MV Decel Time: 148. 00E/A: ??1. 90E'Lateral: ??6. 60E'Medial: ?? 4. 10E/E' Med: ?? 28. 00E/E' Lat: ?? 17. 40 ?? Aortic ValveAoV Pk Burke: 1. 30AoV Pk Grad: ?? 8. 00 ?? Diastolic FunctionMV Pk E: 1. 15MV Pk A: 0. 61E/A: ??1. 90E'Medial: ?? 4. 10E/E' Med: ?? 28. 00E' Laterial: ?? 6. 60E/E' Lat: ?? 17. 40 ??Tricuspid ValveTR Pk Burke: ??2. 86TR Pk Grad: 54. 00RVSP: 57. 00 ?? Great VesselsAortaAo Root-2D: 2. 70 2. 0-3. 7 cmAo Asc: ??2. 80 2. 1-3. 4 cm ?Updated by Harika Yoon MD on 4:50 PM with Status of Final ??[id number] electronically signed on 11/08/2023 4:50:25 PM with status ofFinal ?? XR Foot 2 View Right - 11/08/23 14:01 ( Pankaj DUNAWAY, Danny Horowitz )?? IMPRESSION: No acute findings. ?? Electronically signed by: Danny Lira MD, ??[facility], 11/08/2023 14:24 ?? XR Humerus 2 View Left - 11/08/23 10:58 ( Danny Lira MD )?? IMPRESSION: Humeral head and neck fracture as described above. ??Electronically signed by: Danny Lira MD, ??[facility], 11/08/2023 11:31 ?? XR Chest 1 View - 11/08/23 10:20 ( Danny Lira MD )?? IMPRESSION: No acute findings. ??Electronically signed by: Danny Lira MD, ??[facility], 11/08/2023 10:45 Other No qualifying data available. Airway Management No Data Available [1]??Admission H&P Note; Alejandrina Mast 11/08/2023 14:23 CDT [2]??Surgical Consult Note; Andrei Coyle 11/08/2023 21:19 CDT Electronically signed by:Blessing Fu 11/17/23 10:33 Electronically cosigned by: Pako Pimentel MD 11/17/23 11:16 * Blessing Fu: PERFORM Event Display: Discharge Summary Authored Date: S: Ms Kaiser did not discharge yesterday as was accepted.?? Insurance auth still pending.?? She was seen in follow-up today, 11/17 while in dialysis.?? C/o leg cramping while on treatment, otherwise doing okay.?? Anticipating discharge. ?? O: VSS. Gen.:?No acute distress Respiratory: Nonlabored respirations.?? Lungs clear. Cardiovascular: Regular rate and rhythm.?? Gastrointestinal: Abdomen soft, nondistended, and nontender.?? Normoactive bowel sounds throughout.?? Musculoskeletal: Freely moves extremities.?? No obvious swelling or deformity. Neurologic: Alert and oriented.?? No appreciable acute focal deficits. Psychiatric: Calm, cooperative.?? Appropriate mood and affect. ?? A/P:?? as above.?? Remains stable for discharge to skilled facility for ongoing pt/ot. discharge orders adn medications as above without revision today. Electronically signed by:Blessing Fu 11/18/23 10:20 CT Cervical spine WO contrast * Vic Moss MD: PERFORM, TRANSCRIBE, VERIFY, VERIFY Event Display: Report Authored Date: [id number] Note * Vic Moss MD: PERFORM, TRANSCRIBE, VERIFY, VERIFY Event Display: Powerscribe Read Authored Date: CT CERVICAL SPINE WITHOUT CONTRAST CLINICAL STATEMENT: Status post fall. Trauma. TECHNIQUE: Contiguous axial images of the cervical spine were obtained without the administration of intravenous contrast. Multiplanar reformations were created. This CT study used one or more of thefollowing dose reduction techniques: Automated exposure control, Adjustment of the mA and/or kV according to patient size, Use of iterative reconstruction technique. Patient radiation dose is recorded for each exam using dose tracking software. COMPARISON: No previous cervical spine CT is available for comparison at this institution. FINDINGS: Images were obtained by noise and quantum mottling. Streak artifact arising from C5 to C5 to C7 anterior interbody fusion. No evidence of hardware fracture. Evidence of interbody fusion across C5-C6 and C6- C7. No significant fusion of the posterior elements. Straightening of the normal cervical lordosis, which may positional or secondary to spasm. Ossifiedat the atlantoaxial articulation. Atlantodental and basion dental intervals are within normal limits. No substantial cerebellar tonsillar ectopia or spondylolisthesis. No acute displaced fractures ofthe odontoid process. No widening of the atlantooccipital or atlantoaxial joints. No acute compression fracture identified. No diastases of the disc spaces. Multilevel facet arthropathy. No acute displaced fractures of the spinous processes. If there is focal point tenderness, consider MRI. 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 Likely cerumen/debris in the external auditory canals. Opacification/fluid along the inferior aspect of the right mastoid air cells. Atherosclerotic calcifications in the neck vasculature. Kissing carotid configuration. No apical pneumothorax. 2 mm nodule in the right lung apex. IMPRESSION: Images degraded by noise and quantum mottling. No evidence of acute osseous injury of the cervical spine, given limitations of study. Electronically signed by: Dr Vic Moss 11/09/2023 7:37 AM Vic Moss MD Signed 11/09/23 07:37:34 (Electronic Signature) Real Estate Sales Agent [facility] Technologist [facility] * Vic Moss MD: TRANSCRIBE, PERFORM, VERIFY, VERIFY Event Display: PingMD Read Authored Date: [id number] CT HEAD WITHOUT IV CONTRAST CLINICAL STATEMENT: Status post fall from chair. Trauma. TECHNIQUE: Contiguous axial images were obtained from the base of the skull to the vertex without the use of intravenous contrast. This CT study used one or more of the following dose reduction techniques: Automated exposure control, Adjustment of the mA and/or kV according to patient size, Use of iterative reconstruction technique. This is documented with the patient images in PACS, part of the medical record. COMPARISON: No previous head CT is available for comparison at this institution. FINDINGS: Zone of encephalomalacia involving the right posterior insula, parietal, and temporal lobes, with the curvilinear/gyriform-like calcification, likely from prior infarction. Mild ex vacuo dilatation of the adjacent ventricular system. Other. Ventricular and subcortical white matter hypodensities arenonspecific but can be seen in the setting of mild chronic microvascular ischemic changes. No hydrocephalus. No midline shift at the confluence of foramen of Jeferson. No uncal herniation. There is no evidence of acute large vessel infarction, hemorrhage, or parenchymal masslike lesion. No loss of the cortical insular ribbon. The basilar cisterns are patent. No acute/hyperdense intra-axial or extra-axial fluid collection is identified. No suspicion of a focally aggressive osseous lesion. No depressed calvarial fracture. Mid frontal superficial hematoma and paranasal soft tissue induration/contusion; please refer to trustee of estate facial CT. Rightward nasal septal deviation. Mucosal thickening along the anterior aspect of the nasal septum.No air-fluid levels in the included paranasal sinuses. Bifrontal sinuses are hypoplastic. Mastoid cells are aerated. Atherosclerotic calcification intracranial situation. Lens replacement. The patient is edentulous. Gripper Attacher view shows fracture of the left humeral neck. IMPRESSION: 1. No CT evidence for acute intracranial abnormality. 2. Zone of encephalomalacia involving the right posterior insula, parietal, and temporal lobes, with curvilinear/gyriform-like calcification, likely from prior infarction and/or hemorrhage. Mild ex vacuo dilatation of the adjacent ventricular system; no hydrocephalus. 3. Gripper Attacher view shows fracture of the left humeral neck. 4. Mid frontal superficial hematoma; please refer to trustee of estate facial CT. Electronically signed by: Dr Vic Moss 11/09/2023 7:37 AM Vic Moss MD Signed 11/09/23 07:37:21 (Electronic Signature) Real Estate Sales Agent [facility] Technologist [facility] * Vic Moss MD: PERFORM, TRANSCRIBE, VERIFY, VERIFY Event Display: PingMD Read Authored Date: [id number] WITHOUT CONTRAST CLINICAL STATEMENT: Status post fall from chair. TECHNIQUE: Contiguous axial images of the maxillofacial structures were obtained without the use ofintravenous contrast. Multiplanar reformations were created. This CT study used one or more of the following dose reduction techniques: Automated exposure control, Adjustment of the mA and/or kV according to patient size, Use of iterative reconstruction technique. Patient radiation dose is recordedfor each exam using dose tracking software. COMPARISON: No previous facial CT is available for comparison at this institution. FINDINGS: Repeat series acquired. Mid frontal superficial hematoma. Prenasal induration. Suspect linear fracture through the nasal bones and at the junction with the nasal septum. Nasofrontal suture is grossly intact. Left greater than right periorbital induration. No significant proptosis. Lens replacement. No coalescent retrobulbar hematoma. No asymmetric enlargement of the extraocular muscles. No depression of the orbital floors or medialization of the lamina papyracea. No displaced fractures of the bilateralsuperior or lateral orbital rims. Floors of the optic nerve canals is thinner on the right. Bifrontal sinuses are hypoplastic. Soft tissue thickening along the anterior/cartilaginous portion of the nasal septum. Right katelin bullosa and left katelin lamella. No destruction of the nasal turbinates. Anterior skull base is grossly intact; no pneumocephalus in the anterior cranial fossa. No air- fluid/blood levels in the paranasal sinuses. No dislocation of the temporomandibular joints. No displaced fractures of the mandible. The patientis edentulous. Zygomatic arches and plates are intact. Small torus palatini. Pterygopalatine fossa are grossly normal. No nasopharyngeal mass. Fatty septum is situated midline.No gross mass identified within the tonsillar fossa or lingual tonsils. No abnormal enlargement of the submandibular or parotid glands. No hematoma within the customer contact specialist spaces. Atherosclerotic calcification is at the carotid bifurcations. Kissing carotid configuration. Please refer to trustee of estate CT for detailed discussion of the intracranial and cervical spine findings. No expansion or destruction of the sella turcica. IMPRESSION: 1. Mid frontal superficial hematoma and prenasal induration. Suspect linear fracture through the nasal bones and at the junction with the nasal septum. Electronically signed by: Dr Vic Moss 11/09/2023 7:37 AM Vic Moss MD Signed 11/09/23 07:37:49 (Electronic Signature) Real Estate Sales Agent [employer] Technologist Danny Mueller MD: PERFORM, VERIFY, VERIFY Event Display: Powerscribe Read Authored Date: [id number] PROCEDURE INFORMATION: Exam: XR Chest Exam date and time: 11/08/2023 10:20 AM Age: 58 years old Clinical indication: Chest pain TECHNIQUE: Imaging protocol: Radiologic exam of the chest. Views: 1 view. COMPARISON: No relevant prior studies available. FINDINGS: Lungs: Unremarkable. No consolidation. Pleural spaces: Unremarkable. No pleural effusion. No pneumothorax. Heart/Mediastinum: Unremarkable. No cardiomegaly. Bones/joints: A metallic plate is seen in the cervical spine. No acute findings. IMPRESSION: No acute findings. Electronically signed by: Danny Lira MD, [facility], 11/08/2023 10:45 Danny Lira MD Signed 11/08/23 10:45:45 (Electronic Signature) Technologist ABDULKADIR CORBETT MD, Richard O: PERFORM, VERIFY, VERIFY Event Display: Powerscribe Read Authored Date: [id number] PROCEDURE INFORMATION: Exam: XR Left Humerus Exam date and time: 11/08/2023 10:58 AM Age: 58 years old Clinical indication: Old left humerus FX seen on video library assistant image; Further characterizatio TECHNIQUE: Imaging protocol: Radiologic exam of the left humerus. Views: 2 or more views. COMPARISON: CT Cervical Spine wo Contrast 11/08/2023 10:47 AM FINDINGS: Bones/joints: There is a comminuted impacted slightly vertex anteriorly angulated fracture of the humeral head and neck. The bones are demineralized. Soft tissues: Normal. IMPRESSION: Humeral head and neck fracture as described above. Electronically signed by: Danny Lira MD, [facility], 11/08/2023 11:31 Danny Lira MD Signed 11/08/23 11:31:30 (Electronic Signature) Technologist ABDULKADIR CORBETT * Danny Liar MD: PERFORM, VERIFY, VERIFY Event Display: Powerscribe Read Authored Date: [id number] PROCEDURE INFORMATION: Exam: XR Right Foot Exam date and time: 11/08/2023 2:01 PM Age: 58 years old Clinical indication: Fracture of nasal bones, initial encounter for closed fracture; Nutritional anemia, unspecified; Type 2 diabetes mellitus with hyperglycemia; Hypo-osmolality and hyponatremia; Other disorders of plasma-protein metabolism, not elsewhere classified; Restless legs syndrome; Essential (primary) hypertension; End stage renal disease; Repeated falls; Unspecified fracture of shaft of humerus, left arm, initial encounter for closed fracture; Additional info: Right foot pain, reported by family TECHNIQUE: Imaging protocol: Radiologic exam of the right foot. Views: 1 or 2 views. COMPARISON: No relevant prior studies available. FINDINGS: Bones/joints: No evidence for osteomyelitis or other acute osseous or joint abnormality. There are calcaneal enthesophytes. Soft tissues: Normal. Vasculature: There are arterial calcifications. IMPRESSION: No acute findings. Electronically signed by: Danny Lira MD, [facility], 11/08/2023 14:24 Danny Lira MD Signed 11/08/23 14:24:57 (Electronic Signature) Technologist ABEL BOWEN * Danny Lira MD: PERFORM, VERIFY, VERIFY Event Display: Report Authored Date: [id number] CT Head WO contrast * Vic Moss MD: TRANSCRIBE, PERFORM, VERIFY, VERIFY Event Display: Report Authored Date: [id number] XR Chest Single view * Danny Lira MD: PERFORM, VERIFY, VERIFY Event Display: Report Authored Date: [id number] CT Facial bones * Vic Moss MD: PERFORM, TRANSCRIBE, VERIFY, VERIFY Event Display: Report Authored Date: XR Humerus - left 2 Views * Danny Lira MD: PERFORM, VERIFY, VERIFY Event Display: Report Authored Date: XR Foot - right 2 Views * Danny Lira MD: PERFORM, VERIFY, VERIFY Event Display: Report Authored Date: [id number] XR Shoulder - left 3 Views * Danny Lira MD: PERFORM, VERIFY, VERIFY Event Display: Powerscribe Read Authored Date: [id number] PROCEDURE INFORMATION: Exam: XR Left Shoulder Exam date and time: 11/08/2023 6:02 PM Age: 58 years old Clinical indication: Fracture of nasal bones, initial encounter for closed fracture; Nutritional anemia, unspecified; Type 2 diabetes mellitus with hyperglycemia; Hypo-osmolality and hyponatremia; Other disorders of plasma-protein metabolism, not elsewhere classified; Restless legs syndrome; Essential (primary) hypertension; End stage renal disease; Dysphagia, oropharyngeal phase; Repeated falls; Unspecified fracture of shaft of humerus, left arm, initial encounter for closed fracture; Additional info: L proximal humerus FX TECHNIQUE: Imaging protocol: Radiologic exam of the left shoulder. Views: 2 or more views. COMPARISON: DX XR Humerus 2 View Left 11/08/2023 10:58 AM FINDINGS: Bones/joints: No change in appearance of the comminuted impacted vertex anterior angulated fracture of the head and neck. The shoulder is otherwise unremarkable. Soft tissues: Normal. IMPRESSION: Unchanged proximal humeral fracture. No other findings in the shoulder. Electronically signed by: Danny Lira MD, [facility], 11/09/2023 14:36 Danny Lira MD Signed 11/09/23 14:36:41 (Electronic Signature) Technologist SP,ERASMO US Heart * Car [place]NAWAY, [place]: VERIFY, VERIFY, PERFORM Event Display: Powerscribe Read Authored Date: [id number] [address] Transthoracic Echocardiogram Patient (Last, First, Middle): JEREMIAH KAISER ROSE Gender: Female CMRN: [id number] Date of : 1965 [age] Procedure Date: 11/08/2023 Location: Height: 152.00 cm Weight: 90.00 kg BSA: 1.86 m2 Heart Rate: bpm BP: 132 / 60 mmHg Digital Imager: MODE Shi MD: Alejandrina MOFFETT Classified Advertising Clerk: Harika Yoon MD Indications: Fall at home, has frequent falls. Unclear etiology Conclusions: - 1. The left ventricular systolic function is markedly reduced at 37%. 2. Moderate pulmonary hypertension with an RVSP of 56 mmHg. 3. No priors. Findings Procedure Information The quality of the study was technically difficult. Definity was administered per protocol without apparent complications. Left Ventricle Normal left ventricular cavity size. There is normal left ventricular wall thickness. The left ventricular systolic function is moderately decreased. The calculated ejection fraction is 37% by biplane method. There is moderate global hypokinesis. E/E prime ratio is >15, consistent with elevated filling pressures. Evidence suggests (grade I) diastolic dysfunction with abnormal relaxation pattern. Right Ventricle Normal right ventricular cavity size and systolic function. Atria The left atrium is normal in size. The right atrium is normal in size. Aortic Valve Normal aortic valve structure and function. There is a trileaflet aortic valve. There is mild calcification of the aortic valve. There is mild sclerosis of the aortic valve. Mitral Valve There is mild anterior and posterior mitral leaflet thickening. There is mild mitral annular calcification. There is trace mitral valve regurgitation. Pulmonic Valve The pulmonic valve was not well visualized. There is trace pulmonic valve regurgitation. Tricuspid Valve There is mild tricuspid valve regurgitation. Moderate pulmonary hypertension is present. Great Vessels No dilatation of the aortic root. The visualized portions of the pulmonary artery and branches are normal. Venous The inferior vena cava is normal in size and collapses greater than 50% with inspiration. Pericardium/Pleural Normal pericardial structure. Measurements 2D Linear Measurements RVIDd: 3.20 RVIDd Mid: 2.50 RVIDd Index: 1.72 IVSd: 0.90 0.6-0.9/0.6-1.0 cm LVIDd: 4.40 3.9-5.3/4.2-5.9 cm LVIDd Index: 2.37 2.4-3.2/2.2-3.1 cm/m2 LVIDs: 3.90 2.0-3.6 cm LVPWd: 1.00 0.7-1.1 cm Ao Root: 2.70 2.1-3.5 cm LA Diam: 3.50 2.7-3.8/3.0-4.0 cm LAIDs Index: 1.88 1.5-2.3 cm/m2 LV Mass: 171.46 67-162/88-224 g LV Mass Index: 92.18 43-95/49-115 g/m2 RA Area,s: 11.40 LA Area,s: 13.70 2D Volumes LA ESV BP: 27.00 LA ESV BP Index: 14.50 LA ESV MOD A2C: 21.40 LA ESV MOD A2C Index: 11.50 LA ESV MOD A4C: 33.00 LA ESV MOD A4C Index: 17.70 2D Systolic Function EF 4C: 37.10 >55% EF 2C: 37.10 >55% EF BiP: 37.20 >55% Mitral Valve MV Pk E: 1.15 MV PK A: 0.61 MV Decel Time: 148.00 E/A: 1.90 E'Lateral: 6.60 E'Medial: 4.10 E/E' Med: 28.00 E/E' Lat: 17.40 Aortic Valve AoV Pk Burke: 1.30 AoV Pk Grad: 8.00 Diastolic Function MV Pk E: 1.15 MV Pk A: 0.61 E/A: 1.90 E'Medial: 4.10 E/E' Med: 28.00 E' Laterial: 6.60 E/E' Lat: 17.40 Tricuspid Valve TR Pk Burke: 2.86 TR Pk Grad: 54.00 RVSP: 57.00 Great Vessels Aorta Ao Root-2D: 2.70 2.0-3.7 cm Ao Asc: 2.80 2.1-3.4 cm Updated by Harika Yoon MD on 4:50 PM with Status of Final [id number] electronically signed on 11/08/2023 4:50:25 PM with status of Final Cardiology * Mayank Gunter MD: SIGN, VERIFY Event Display: EKG 12-Lead Authored Date: Patient Care team information Care Team Personnel Name: Nelia Stein Position: Inpatient-Midlevel Member Role: Nurse Practitioner Address: Address: [address] [place] [address]- Name: Gio Adams DO Position: Physician-Hospitalist Med Service: Obstetrics & Gynecology Member Role: Admitting Physician Address: Address: [address] [place] [address]- Name: Siena Foster CNA Position: Patient Enamel Buffer (E) Member Role: Nurse Pathology Tech Name: Neto Clark Position: Nurse (MAR) Member Role: Nurse Care Team Related Persons Name: JOY SIM Name: JACOB SIM Name: JACOB SIM Name: WENDY KAISER Name: WENDY KAISER
--- OUTSIDE RECORDS SUMMARY | 2024-03-15 07:25 | XMS_ITS ---
Author Name Janis Odonnell Address [address] [place] [address] Phone [phone] Organization [facility], NA DOCUMENT DISCLAIMER Multiple document versions may exist, please be sure you review the latest version. The information in the [facility] Progress Note Document represents a providers documented clinical note containing certain health and medical information. It may not contain the complete medical history for the patient and should be independently verified. The represented time in the document is Eastern Time PROVIDER ROUNDING NOTE COMPREHENSIVE Patient:?Elvi?Job,?1965,?58y,?F Dialysis?Location:?[place] Attending?Configuration Technician:?Carmen Service?Date:?01/02/2024 Service?Provider:?Janis?Blas,? I?met?face?to?face?with?the?patient?today. OVERVIEW The?patient?presented?with?ESRD?on?dialysis Primary?cause?of?renal?failure:?Type?2?diabetes?mellitus&#16 0;with?diabetic?chronic?kidney?disease Comments:?PCP:?Vivienne?Jazz VSS,?seen?on?HD?machine,?denies?needs?for?me?today She?did?fall?again.?She?is?now?at?a?[place]?for?PT/OT. Medications?and?labs?reviewed. LAST?HOSPITALIZATION Discharge?Diagnosis:?R29.6?Repeated?falls R53.1?Weakness R41.0?Disorientation,?unspecified N39.0?Urinary?tract?infection,?site?not?specified Admission?Date?12/27/23 Discharge?Date?12/30/23 DIALYSIS?PRESCRIPTION ??IHD?3x?Week?Start?date:?12/07/23 ??Dialyzer:?160NRe?Optiflux ??BFR:?450 ??DFR:?Autoflow?1.5 ??Potassium:?2.0 ??Sodium:?136 ??EDW:?84.1 ??Duration:?3:00 ??Calcium:?2.0 ??Bicarb:?36 ??Rx?updated?on:?12/07/2023 TREATMENT?ASSESSMENT Comments:?End?of?HD?after?UF?BPs?are?stable?at?goal. BP?Sit?Pre ??12/23/2023:?132/50 ??12/21/2023:?130/112 ??12/19/2023:?125/101 BP?Sit?Post ??12/23/2023:?168/72 ??12/21/2023:?113/87 ??12/19/2023:?101/70 Tx?Duration ??12/23/2023:?2:59 ??12/21/2023:?3:11 ??12/19/2023:?2:48 Missed?Treatments 0?-?last?30?days 1?-?last?60?days 8/9?-?recent FLUID?ASSESSMENT Comments:?Ed?on?fluid?gains. As?above. EDW?(kg) ??12/23/2023:?84.1 ??12/21/2023:?84.1 ??12/19/2023:?84.1 Weight?Pre?(kg) ??12/23/2023:?85.5 ??12/21/2023:?86.2 ??12/19/2023:?86.9 Weight?Post?(kg) ??12/23/2023:?85.0 ??12/21/2023:?83.9 ??12/19/2023:?84.9 PWV?(kg) ??12/23/2023:?0.9 ??12/21/2023:?-0.2 ??12/19/2023:?0.8 UF?Rate?(mL/kg/hr) ??12/23/2023:?2 ??12/21/2023:?8.6 ??12/19/2023:?8.4 ADEQUACY?ASSESSMENT Adequacy?target?met.?Prescription?compliance?acceptable.? spKt/V,?URR ??12/14/2023:?1.31,?69.0 ??11/21/2023:?1.63,?77.0 ??10/12/2023:?1.49,?73.0 ACCESS?ASSESSMENT ??Access?Type:?AVFistula ??Access?SubType:?Transposed ??Access?Status:?Active?(In?Use)?-?12/19/2020 ??Access?Location:?Right?Upper?Arm ??Created:?10/14/2020 Flow ??11/28/2023:?1089 ??2023:?681 ??07/27/2023:?736 Vascular?access?reviewed.?Current?access?is?permanent?and?functioning?well. ANEMIA?ASSESSMENT Comments:?On?IV?iron?and?MAX?protocol. Increasing?mircera?per?alg HGB,?TSAT ??12/21/2023:?7.9,?- ??12/14/2023:?8.1,?19.0 ??12/07/2023:?8.4,?- ?? Ferritin ??12/14/2023:?3827.0 ??09/21/2023:?1973.0 ??06/15/2023:?1601.0 Mircera,?IVP?(mcg) ??12/14/2023:?100 ??11/21/2023:?30 ??11/02/2023:?30 BMM?ASSESSMENT Comments:?Stable?at?goal. PTH,?Intact ??12/14/2023:?307.0 ??09/21/2023:?204.0 ??07/13/2023:?754.0 ?? Calcium,?Phosphorus ??12/14/2023:?9.2,?4.7 ??11/21/2023:?8.9,?4.3 ??10/12/2023:?8.5,?6.3 Vitamin?D?(Calcitriol)?Oral?(mcg) ??12/23/2023:?0.5 ??12/21/2023:?0.5 ??12/19/2023:?0.5 NUTRITION?ASSESSMENT Potassium?controlled.?Albumin?below?goal.?Referred?to?dietitian. Potassium,?Albumin ??12/14/2023:?4.2,?3.3 ??11/21/2023:?4.6,?3.4 ??10/12/2023:?5.2,?3.2 ?? eNPCR ??12/14/2023:?0.51 ??10/12/2023:?0.7 ??08/10/2023:?0.64 PHYSICAL?EXAM Exam?Performed.?Vital?Signs?Reviewed.?CV?-?Blood?pressure&#1 60;noted.?EXT?-?No?edema.?EXT?-?No?ulcers.?AVF/AVG Positive?thrill/bruit. DIAGNOSIS Chief?Complaint:?N18.6?End?stage?renal?disease Patient?is?stable. ADDITIONAL?DIAGNOSES Additional?conditions?addressed?during?visit: ??R29.6?Repeated?falls ??Comments:?Now?at?NH. 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 Continue?on?current?medications. Patient?data?updated?01/02/2024?at?10:44?AM Signed?By:?Blas,?Janis,???on?01/02/2024?10:52:44?AM END OF DOCUMENT
--- OUTSIDE RECORDS SUMMARY | 2024-03-15 07:25 | XMS_ITS ---
Author Name Janis Odonnell Address [address] [place] [address] Phone [phone] Organization [facility], NA DOCUMENT DISCLAIMER Multiple document versions may exist, please be sure you review the latest version. The information in the [facility] Progress Note Document represents a providers documented clinical note containing certain health and medical information. It may not contain the complete medical history for the patient and should be independently verified. The represented time in the document is Eastern Time PROVIDER ROUNDING NOTE COMPREHENSIVE Patient:?Elvi?Job,?1965,?58y,?F Dialysis?Location:?[place] Attending?[employer] App[employer] Tech:?Carmen Service?Date:?12/05/2023 Service?Provider:?Janis?Blas,? I?met?face?to?face?with?the?patient?today. OVERVIEW The?patient?presented?with?ESRD?on?dialysis Primary?cause?of?renal?failure:?Type?2?diabetes?mellitus&#16 0;with?diabetic?chronic?kidney?disease Comments:?PCP:?Vivienne?Jazz VSSav,?seen?on?HD?machine, She?has?been?at?home?now?after?falling?again?and?g oing?to?the?ER.?She?reports?no?falls?recently.?Has PT?and?OT?3?X?a?week. Medications?and?labs?reviewed. LAST?HOSPITALIZATION Discharge?Diagnosis:?S02.2XXA?Fracture?of?nasal?bones,?initial&#1 60;encounter?for?closed?fracture R29.6?Repeated?falls S42.202S?Unspecified?fracture?of?upper?end?of?left?humerus, sequela Admission?Date?11/08/23 Discharge?Date?11/17/23 DIALYSIS?PRESCRIPTION ??IHD?3x?Week?Start?date:?11/28/23 ??Dialyzer:?160NRe?Optiflux ??BFR:?450 ??DFR:?Autoflow?1.5 ??Potassium:?2.0 ??Sodium:?136 ??EDW:?84.7 ??Duration:?3:00 ??Calcium:?2.0 ??Bicarb:?36 ??Rx?updated?on:?11/28/2023 TREATMENT?ASSESSMENT Comments:?End?of?HD?after?UF?BPs?are?stable?at?goal. BP?Sit?Pre ??12/03/2023:?164/70 ??11/30/2023:?143/64 ??11/28/2023:?158/82 BP?Sit?Post ??12/03/2023:?162/79 ??11/30/2023:?140/84 ??11/28/2023:?154/103 Tx?Duration ??12/03/2023:?3:06 ??11/30/2023:?3:01 ??11/28/2023:?3:00 Missed?Treatments 1?-?last?30?days 2?-?last?60?days 8/9?-?recent FLUID?ASSESSMENT Comments:?Ed?on?fluid?gains. As?above. EDW?(kg) ??12/03/2023:?84.7 ??11/30/2023:?84.7 ??11/28/2023:?85.1 Weight?Pre?(kg) ??12/03/2023:?87.9 ??11/30/2023:?85.6 ??11/28/2023:?86.6 Weight?Post?(kg) ??12/03/2023:?85.1 ??11/30/2023:?85.0 ??11/28/2023:?84.7 PWV?(kg) ??12/03/2023:?0.4 ??11/30/2023:?0.3 ??11/28/2023:?-0.4 UF?Rate?(mL/kg/hr) ??12/03/2023:?10.6 ??11/30/2023:?2.3 ??11/28/2023:?7.5 ADEQUACY?ASSESSMENT Adequacy?target?met.? spKt/V,?URR ??11/21/2023:?1.63,?77.0 ??10/12/2023:?1.49,?73.0 ??09/21/2023:?1.48,?71.0 ACCESS?ASSESSMENT ??Access?Type:?AVFistula ??Access?SubType:?Transposed ??Access?Status:?Active?(In?Use)?-?12/19/2020 ??Access?Location:?Right?Upper?Arm ??Created:?10/14/2020 Flow ??11/28/2023:?1089 ??2023:?681 ??07/27/2023:?736 Vascular?access?reviewed.?Current?access?is?permanent?and?functioning?well. ANEMIA?ASSESSMENT Comments:?On?IV?iron?and?MAX?protocol. HGB?at?goal.? HGB,?TSAT ??11/30/2023:?11.1,?- ??11/24/2023:?8.6,?- ??11/21/2023:?9.1,?33.0 ?? Ferritin ??09/21/2023:?1973.0 ??06/15/2023:?1601.0 Mircera,?IVP?(mcg) ??11/21/2023:?30 ??11/02/2023:?30 ??09/21/2023:?50 BMM?ASSESSMENT Comments:?Stable?at?goal. PTH,?Intact ??09/21/2023:?204.0 ??07/13/2023:?754.0 ??06/15/2023:?414.0 ?? Calcium,?Phosphorus ??11/21/2023:?8.9,?4.3 ??10/12/2023:?8.5,?6.3 ??09/21/2023:?7.7,?3.6 Vitamin?D?(Calcitriol)?Oral?(mcg) ??12/03/2023:?0.5 ??11/30/2023:?0.5 ??11/28/2023:?0.5 NUTRITION?ASSESSMENT Potassium?controlled.?Albumin?below?goal.?Referred?to?dietitian. Potassium,?Albumin ??11/21/2023:?4.6,?3.4 ??10/12/2023:?5.2,?3.2 ??09/21/2023:?4.8,?2.7 ?? eNPCR ??10/12/2023:?0.7 ??08/10/2023:?0.64 ??07/13/2023:?0.95 PHYSICAL?EXAM Exam?Performed.?Vital?Signs?Reviewed.?EXT?-?No?edema.?E XT?-?No?ulcers.?AVF/AVG?Positive?thrill/bruit. 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 5?chronic?kidney?disease?or?end?stage?renal?disease ??Comments:?Stable?after?UF.? Monitor. Patient?data?updated?12/05/2023?at?10:19?AM Signed?By:?Blas,?Janis???on?12/05/2023?10:22:58?AM END OF DOCUMENT
--- OUTSIDE RECORDS SUMMARY | 2024-03-15 07:25 | XMS_ITS ---
Author Name Moises Mary Address [address] [place] [address] Phone [phone] Organization [facility], NA DOCUMENT DISCLAIMER Multiple document versions may exist, please be sure you review the latest version. The information in the [facility] Progress Note Document represents a providers documented clinical note containing certain health and medical information. It may not contain the complete medical history for the patient and should be independently verified. The represented time in the document is Eastern Time PROVIDER ROUNDING NOTE BASIC Patient:?Elvi?Job,?1965,?58y,?F Dialysis?Location:?[place] Attending?Corporate Development Manager:?Carmen Service?Date:?01/17/2024 Service?Provider:?Mary?Moises,?ANESTHESIOLOGIST ATTENDING I?met?face?to?face?with?the?patient?today. OVERVIEW The?patient?presented?with?ESRD?on?dialysis Primary?cause?of?renal?failure:?Type?2?diabetes?mellitus&#16 0;with?diabetic?chronic?kidney?disease Comments:?PCP:?Vivienne?Jazz VSSav,?seen?on?HD?machine,?denies?needs?for?me?today ?lowered?leading?to?this?world?with?liver?disease?or little?limits. Discharged?home?from?nursing?home?over?the?weekend?and? was?unable?to?attend?treatment?yesterday?because?she?was&#16 0;struggling?with?being?able?to?walk.??Saphenous?provider&#1 60;reviewed?with?patient?today?the?risk?to?her?health?a nd?well-being?from?being?at?home?with?minimal?to?no&#16 0;support.??Refer?to?social?worker Medications?and?labs?reviewed. LAST?HOSPITALIZATION Discharge?Diagnosis:?R29.6?Repeated?falls R53.1?Weakness R41.0?Disorientation,?unspecified N39.0?Urinary?tract?infection,?site?not?specified Admission?Date?12/27/23 Discharge?Date?12/30/23 Comments:?UTI,?subsequent?fall?episodes,?remains?at?[facility] DIALYSIS?PRESCRIPTION ??IHD?3x?Week?Start?date:?01/13/24 ??Dialyzer:?160NRe?Optiflux ??BFR:?450 ??DFR:?Autoflow?1.5 ??Potassium:?2.0 ??Sodium:?136 ??EDW:?84 ??Duration:?3:00 ??Calcium:?2.0 ??Bicarb:?36 ??Rx?updated?on:?01/13/2024 TREATMENT?ASSESSMENT Comments:?End?of?HD?after?UF?BPs?are?stable?at?goal. BP?Stand?Pre ??01/17/2024:?147/54 BP?Sit?Pre ??01/17/2024:?185/89 ??01/13/2024:?149/66 ??01/11/2024:?140/68 BP?Stand?Post ??01/17/2024:?186/101 BP?Sit?Post ??01/17/2024:?136/78 ??01/13/2024:?118/63 ??01/11/2024:?102/81 Tx?Duration ??01/17/2024:?3:33 ??01/13/2024:?3:07 ??01/11/2024:?3:04 Missed?Treatments 0?-?last?30?days 0?-?last?60?days FLUID?ASSESSMENT Comments:?Ed?on?fluid?gains. As?above. EDW?(kg) ??01/17/2024:?84.0 ??01/13/2024:?84.0 ??01/11/2024:?84.1 Weight?Pre?(kg) ??01/17/2024:?93.3 ??01/13/2024:?89.2 ??01/11/2024:?86.0 Weight?Post?(kg) ??01/17/2024:?88.6 ??01/13/2024:?85.0 ??01/11/2024:?84.0 PWV?(kg) ??01/17/2024:?4.6 ??01/13/2024:?1.0 ??01/11/2024:?-0.1 UF?Rate?(mL/kg/hr) ??01/17/2024:?14.9 ??01/13/2024:?15.9 ??01/11/2024:?7.8 ADEQUACY?ASSESSMENT Comments:???Recheck?Dmitry spKt/V,?URR ??01/11/2024:?3.36,?94.0 ??01/04/2024:?1.54,?75.0 ??12/14/2023:?1.31,?69.0 ACCESS?ASSESSMENT ??Access?Type:?AVFistula ??Access?SubType:?Transposed ??Access?Status:?Active?(In?Use)?-?12/19/2020 ??Access?Location:?Right?Upper?Arm ??Created:?10/14/2020 Flow ??11/28/2023:?1089 ??2023:?681 ??07/27/2023:?736 ANEMIA?ASSESSMENT Comments:?On?IV?iron?and?MAX?protocol. Increasing?mircera?per?alg HGB,?TSAT ??01/11/2024:?8.6,?21.0 ??01/04/2024:?8.8,?- ??01/02/2024:?9.2,?- ?? Ferritin ??12/14/2023:?3827.0 ??09/21/2023:?1973.0 Mircera,?IVP?(mcg) ??01/11/2024:?100 ??12/14/2023:?100 ??11/21/2023:?30 BMM?ASSESSMENT Comments:?Stable?at?goal.?? Referred?to?dietitian.? PTH,?Intact ??12/14/2023:?307.0 ??09/21/2023:?204.0 ??07/13/2023:?754.0 ?? Calcium,?Phosphorus ??01/11/2024:?8.8,?6.2 ??12/14/2023:?9.2,?4.7 ??11/21/2023:?8.9,?4.3 Vitamin?D?(Calcitriol)?Oral?(mcg) ??01/17/2024:?0.5 ??01/13/2024:?0.5 ??01/11/2024:?0.5 NUTRITION?ASSESSMENT Comments:??has?ongoing?injuries?of?nonhealing?wounds. Referred?to?dietitian.? Potassium,?Albumin ??01/11/2024:?5.0,?3.0 ??12/14/2023:?4.2,?3.3 ??11/21/2023:?4.6,?3.4 ?? eNPCR ??01/11/2024:?0.81 ??01/04/2024:?0.58 ??12/14/2023:?0.51 PHYSICAL?EXAM Exam?Not?Performed. DIAGNOSIS Chief?Complaint:?N18.6?End?stage?renal?disease Patient?data?updated?01/18/2024?at?3:19?PM Signed?By:?Moises,?Mary,?ANESTHESIOLOGIST ATTENDING??on?01/18/2024?3:22:02 PM END OF DOCUMENT
--- OUTSIDE RECORDS SUMMARY | 2024-03-15 07:25 | XMS_ITS ---
Author Name Janis Odonnell Address [address] [place] [address] Phone [phone] Organization [facility], NA DOCUMENT DISCLAIMER Multiple document versions may exist, please be sure you review the latest version. The information in the [facility] Progress Note Document represents a providers documented clinical note containing certain health and medical information. It may not contain the complete medical history for the patient and should be independently verified. The represented time in the document is Eastern Time PROVIDER ROUNDING NOTE COMP HD PROVIDER?ROUNDING?NOTE?COMP?HD Clinic:?[address] [place] [address]?[place] Visit?date:?08/28/2018?00:00?Modality/setting:?IHD Elvi?Job?-?Chart?#:?[id number] Method?of?Interaction:?Face?to?face Date?of?Interaction:?11/07/2023 ?-?Patient?is?stable ?-?Optimal?weight?addressed?with?patient?and?staff. Patient?issues?include: She?has?been?having?fgalls?at?home.?She?has?PT?at& #160;home.?Educated?she?may?need?to move?to?a?[place].?To?use?a?wheelchair?and?walker. Prior?Treatment:?11/04/2023? Dialyzer:?160NRe?Optiflux? Dialysate:?2.0?K,?2.0 Ca,?1.0?Mg,?100?Dextrose?(G2201)? Prescribed?Time:?3:0?Avg?BFR:?& #160;??460?Wt?Gain?(kg):?1.30? Actual?Time:?03:09?Avg?DFR:?700?&#16 0;EDW?(kg):?92.00? Adequacy ?spKt/V?eKdrt/V?&#160 ; ???OLC?(Del)?spKtv?URR?%?1.49?10/12/23?? ?1.28?10/12/23?? ?1.77?0 11/04/23?? ?73?10/12/23? ?1.48?09/21/23?? ?1.30?08/10/23?? ?1.83?0 11/02/23?? ?71?09/21/23? ?1.54?08/10/23?? ?1.48?07/13/23?? ?1.79?0 10/31/23?? ?74?08/10/23? ?Potassium,?Serum?mEq/L?Bicarbonate?mEq/L??&# 160;?Creatinine?mg/dL?5.2?10/12/23? 22?10/12/23?4. 59?10/12/23?4.8?09/21/23? 24?09/21/23?4. 64?09/21/23?4.8?08/10/23? 23?08/10/23?5. 55?08/10/23?-?Adequacy?parameters?reviewed Adequacy ?-?Adequacy?target?met ?Sitting?BP?Pre?Sitting BP?Post?Systolic/Diastolic?Systolic/Diastolic?110?/?51??11/04/23?128?/?74??11/04/23?142?/?66??11/02/23?? ?155?/?136? 11/02/23?112?/?51??10/31/23?121?/?51??10/31/23?? Blood?Pressure ?-?Blood?pressure?controlled Fluid?Status ?-?Fluid?status?acceptable Prescription?Compliance ?-?Potassium?controlled Ed?on?fluid?gains. Anemia ?HGB?g/dL? Transferrin?Sat.?(Calc)?%?Ferritin?ng/mL&#160 ;?8.3?11/02/23? 34?10/12/23?1973?09/21/23?? ?7.7?10/26/23? See?jawogcr07/12/24?1601?&# 160;06/15/23?? ?8.2?10/21/23? 50?08/10/23?1815?05/04/23?? MAX?Administrations ??30?mcg?Mircera?11/02/23 ??50?mcg?Mircera?09/21/23 ??0?mcg?Mircera?09/21/23 IV?Iron?Administrations ??100?mg?Venofer?07/27/23 ??100?mg?Venofer?07/13/23 ??100?mg?Venofer?06/29/23 ?-?Anemia?reviewed ?-?MAX?adjusted?per?protocol Ferritin?high Bone?and?Mineral?Metabolism ??Calcium,?Total?mg/dL?? Calcium,?Corrected?mg/dL ?&#1 60;??Phosphorous?mg/dL??? PTH-Intact,?Plasma?pg/mL ??8.5?10/12/23? 9.1?10/12/23?6.3&#16 0;?10/12/23?204?09/21/23?7.7?09/21/23? 8.7?09/21/23?3.6&#16 0;?09/21/23?754?07/13/23?7.9?08/10/23? 8.3?08/10/23?6.7&#16 0;?08/10/23?414?06/15/23?Vitamin?D?25?Hydroxy?ng/mL? ?Vitamin?D?Analogue? Administrations?Calcimimetics?40.0?06/15/23?0.5?mcg?Vitamin?D?(?11/04/23??& #160;?-?49.3?12/14/22?0.5?mcg?Vitamin?D?(?11/02/23??& #160;?-?48.7?04/14/22?0.5?mcg?Vitamin?D?(?10/31/23??& #160;?-? PTH ?-?PTH?within?target ?-?Bone?and?mineral?metabolism?parameters?reviewed ?-?Calcium?controlled ?-?Counseled?regarding?dietary?compliance ?-?Hyperphosphatemia?noted Nutrition ?Albumin?g/dL? eNPCR?g/kg/day?3.2?10/12/23?? ?0.70?10/12/23?? ?2.7?09/21/23?? ?0.64?08/10/23?? ?3.5?08/10/23?? ?0.95?07/13/23?? ?-?Nutrition?reviewed ?-?Caloric?intake?addressed ?-?Referred?to?dietitian?for?further?counseling ?-?Patient?taking?protein?supplements Home?Medications ?Allergy?(diphenhydramine?hcl) 25?mg,?oral,?1?tablet?twice?a?day ??amlodipine?(amlodipine) 2.5?mg,?oral,?1?tablet?once?a?day [at?bedtime] ??Auryxia?(ferric?citrate) 210?mg?iron,?oral,?2?tablet?three?times?a?day [1?tabs?with?snacks] ??carbidopa-levodopa?(carbidopa-levodopa) 25-100?mg,?oral,?1/2?tablet?as?directed [before?dialysis] ??cetirizine?(cetirizine) 10?mg,?oral,?1?tablet?once?a?day ??clopidogrel?(clopidogrel) 75?mg,?oral,?1?tablet?every?evening ??cyclobenzaprine?(cyclobenzaprine) 10?mg,?oral,?1?tablet?every?eight?hours [muscle?spasms] ??escitalopram?oxalate?(escitalopram?oxalate) 20?mg,?oral,?1?tablet?once?a?day ??gabapentin?(gabapentin) 100?mg,?oral,?1?capsule?three?times?a?day ??levothyroxine?(levothyroxine) 50?mcg,?oral,?1?tablet?once?a?day [take?by?itself?in?the?evening] ??metoprolol?succinate?(metoprolol?succinate) 50?mg,?oral,?1?tablet?once?a?day ??omeprazole?(omeprazole) 20?mg,?oral,?1?capsule?once?a?day ??Renal?Plex?D?() ,?,?1?tablet?once?a?day [noon] ??ropinirole?(ropinirole) 0.5?mg,?oral,?1?tablet?every?evening ??rosuvastatin?(rosuvastatin) 20?mg,?oral,?1?tablet?every?evening Vascular?Access?-?Active/Maturing ?Type?Position/Location?Status?Access?ID?AVFistula-Transposed?Upper?Arm-Right?Active?(In?Use) ?[id number]?-?-?&# 160;?-? -?-?-?&# 160;?-? -? Access?Flows ??681mL?per?min?10/26/23 ??736mL?per?min?07/27/23 ??1237mL?per?min?06/24/23 ?-?Vascular?access?reviewed Exam ?-?Vital?signs?reviewed Edema ?-?EXT?-?1+?edema Feet ?-?EXT?-?no?ulcers Other ?-?AVF/AVG?positive?thrill/bruit . Transplant?Status Topic Exploring?Alternative?Treatment?Options: Kidney?Transplant ?Person?Taught: ?-?Patient ?Additional?Education?Required:?No ?Date?Given:?09/08/2018 Interest?and?Eligibility?(If?changes?are?made,?Please?notify?SW?via?alert?below) ?Date?of?discussion?from?transplant?assessment:?08/22/2023 ?Patient?already?on?transplant?list??No ?Patient?interested?in?transplantation??Yes ?Has?patient's?physician?identified?one?or?more?exclusions per?the ?Contraindication?list?provided?by?the?transplant?center? ??No ?Patient?referred?for?transplantation??Yes,?per?patient?self?referral ?Trans[facility] Tobacco?Cessation ??Tobacco?use:?Never?used Janis?Blas,? END OF DOCUMENT
--- OUTSIDE RECORDS SUMMARY | 2024-03-15 07:25 | XMS_ITS ---
Laboratory report Created on: March 06, 2024 JEREMIAH MARIN : 1965 Sex: Female Author Name SARA General Specific Unknown PROBLEMS Problems List Code Description E87.1 RESULTS Laboratory Orders Date Order Code Test 2024-02-27 419572 BASIC METABOLIC PANEL (8) Laboratory Results Date LOINC Test Value Unit Reference Range Interpre tation 2024-02-27 2345-7 GLUCOSE 111 MG/DL 70-99 H 2024-02-27 3094-0 BUN 18 MG/DL 6-24 2024-02-27 2160-0 CREATININE 3.08 MG/DL 0.57-1.00 H 2024-02-27 51786-2 EGFR 17 ML/MIN/1.73 >59 L 2024-02-27 3097-3 BUN/CREATININE RATIO 6 9-23 L 2024-02-27 2951-2 SODIUM 131 MMOL/L 134-144 L 2024-02-27 2823-3 POTASSIUM 3.6 MMOL/L 3.5-5.2 2024-02-27 2075-0 CHLORIDE 89 MMOL/L 96-106 L 2024-02-27 2028-9 CARBON DIOXIDE, TOTAL 21 MMOL/L 20-29 2024-02-27 53871-8 CALCIUM 9.2 MG/DL 8.7-10.2
--- OUTSIDE RECORDS SUMMARY | 2024-03-15 07:25 | XMS_ITS ---
Author Name Jnais Odonnell Address [address] [place] [address] Phone [phone] Organization [facility] e, NA DOCUMENT DISCLAIMER Multiple document versions may exist, please be sure you review the latest version. The information in the [facility] Progress Note Document represents a providers documented clinical note containing certain health and medical information. It may not contain the complete medical history for the patient and should be independently verified. The represented time in the document is Eastern Time PROVIDER ROUNDING NOTE COMPREHENSIVE Patient:?Elvi?Job,?1965,?57y,?F Dialysis?Location:[place] Attending?[place] Blocking Operator:?Carmen Service?Date:?10/05/2023 Service?Provider:?Janis?Blas,? I?met?face?to?face?with?the?patient?today. OVERVIEW The?patient?presented?with?ESRD?on?dialysis Primary?cause?of?renal?failure:?Type?2?diabetes?mellitus&#16 0;with?diabetic?chronic?kidney?disease Comments:?PCP:?Vivienne?Jazz VSS,?seen?on?HD?machine,?denies?needs?for?me?today. She?did?fall.?She?broke?her?left?clavicle.?No?surgery.& #160;Her?arm?is?in?a?sling. Her?appetite?did?decrease?during?this?time.?Her?phos?an?albumin?did?decrease. Now?at?[place]?and?is?feeling?better.?Is?requesting?more&#16 0;protein?on?her?meal?tray?and?will?rx?a?protein?s keesha.?She?is?beign?told?to?drink?more?in?the?NH&#1 60;and?has?been?pushed?to?drink?more?fluids.?She?is&#16 0;to?educate?them?that?she?is?to?limit?her?fluids.&#160 ;Will?right?an?order?for?fluid?restriction?as?well. Medications?and?labs?reviewed. LAST?HOSPITALIZATION Discharge?Diagnosis:?L03.90?Cellulitis,?unspecified Admission?Date?09/16/23 Discharge?Date?09/20/23 DIALYSIS?PRESCRIPTION ??IHD?3x?Week?Start?date:?09/16/23 ??Dialyzer:?160NRe?Optiflux ??BFR:?450 ??DFR:?Autoflow?1.5 ??Potassium:?2.0 ??Sodium:?136 ??EDW:?91 ??Duration:?3:00 ??Calcium:?2.0 ??Bicarb:?36 ??Rx?updated?on:?09/15/2023 TREATMENT?ASSESSMENT Comments:?End?of?HD?after?UF?BPs?are?stable?at?goal. BP?Sit?Pre ??10/03/2023:?134/56 ??09/30/2023:?194/100 ??09/28/2023:?174/95 BP?Sit?Post ??10/03/2023:?140/103 ??09/30/2023:?146/95 ??09/28/2023:?159/80 Tx?Duration ??10/03/2023:?3:00 ??09/30/2023:?2:23 ??09/28/2023:?3:08 Missed?Treatments 0?-?last?30?days 1?-?last?60?days 5/10?-?recent FLUID?ASSESSMENT Comments:?Ed?on?fluid?gains. As?above. EDW?(kg) ??10/03/2023:?91.0 ??09/30/2023:?91.0 ??09/28/2023:?91.0 Weight?Pre?(kg) ??10/03/2023:?93.0 ??09/30/2023:?91.2 ??09/28/2023:?92.6 Weight?Post?(kg) ??10/03/2023:?91.9 ??09/30/2023:?89.9 ??09/28/2023:?91.2 PWV?(kg) ??10/03/2023:?0.9 ??09/30/2023:?-1.1 ??09/28/2023:?0.2 UF?Rate?(mL/kg/hr) ??10/03/2023:?4 ??09/30/2023:?6.1 ??09/28/2023:?4.9 ADEQUACY?ASSESSMENT Comments:?Stable?at?goal?range. spKt/V,?URR ??09/21/2023:?1.48,?71.0 ??08/10/2023:?1.54,?74.0 ??07/13/2023:?1.72,?78.0 ACCESS?ASSESSMENT ??Access?Type:?AVFistula ??Access?SubType:?Transposed ??Access?Status:?Active?(In?Use)?-?12/19/2020 ??Access?Location:?Right?Upper?Arm ??Created:?10/14/2020 Flow ??07/27/2023:?736 ??06/24/2023:?1237 ??05/20/2023:?909 Vascular?access?reviewed.?Current?access?is?permanent?and?functioning?well. ANEMIA?ASSESSMENT Comments:?On?IV?iron?and?MAX?protocol. Misssed?mircera?doses?with?missed?tx,??increase?mircera&#160 ;dose?per?alg,?review?process?to?catch?missed?doses? Hgb?is?better. HGB ??09/28/2023:?10.3 ??09/21/2023:?10.3 ??08/31/2023:?9.0 ?? Ferritin ??09/21/2023:?1973.0 ??06/15/2023:?1601.0 ??05/04/2023:?1815.0 Mircera,?IVP?(mcg) ??09/21/2023:?50 ??08/26/2023:?30 Iron?Sucrose?(Venofer)?(mg) ??07/27/2023:?100 ??07/13/2023:?100 BMM?ASSESSMENT Comments:?As?above.?Monitor?phos?as?has?had?a?decreased ?appetite?but?now?with?better?food?intake. PTH,?Intact ??09/21/2023:?204.0 ??07/13/2023:?754.0 ??06/15/2023:?414.0 ?? Calcium,?Phosphorus ??09/21/2023:?7.7,?3.6 ??08/10/2023:?7.9,?6.7 ??08/06/2023:?8.6,?6.8 Vitamin?D?(Calcitriol)?Oral?(mcg) ??10/03/2023:?0.5 ??09/30/2023:?0.5 ??09/28/2023:?0.5 NUTRITION?ASSESSMENT Comments:?As?above. Potassium,?Albumin ??09/21/2023:?4.8,?2.7 ??08/10/2023:?4.8,?3.5 ??07/13/2023:?4.8,?3.7 ?? eNPCR ??08/10/2023:?0.64 ??07/13/2023:?0.95 ??06/15/2023:?0.8 PHYSICAL?EXAM Exam?Performed.?Vital?Signs?Reviewed.?CV?-?Blood?pressure&#1 60;noted.?EXT?-?1+?edema.?EXT?-?No?ulcers.?AVF/AVG Positive?thrill/bruit. DIAGNOSIS Chief?Complaint:?N18.6?End?stage?renal?disease Patient?is?stable. Patient?data?updated?10/05/2023?at?10:50?AM Signed?By:?Blas,?Janis???on?10/05/2023?10:56:49?AM END OF DOCUMENT
--- OUTSIDE RECORDS SUMMARY | 2024-03-15 07:25 | XMS_ITS ---
Laboratory report Created on: December 23, 2023 MARINJEREMIAH CUELLAR : 1965 Sex: Female Author Name FIONA JACOBS [employer] Unknown PROBLEMS Problems List Code Description E11.65 E03.9 RESULTS Laboratory Orders Date Order Code Test 2023-03-15 493026 CMP14+CBC/D/PLT+ TSH 2023-03-15 874051 LIPID PANEL W/ C HOL/HDL RATIO 2023-03-15 891489 HEMOGLOBIN A1C Laboratory Results Date LOINC Test Value Unit Reference Range Interpre tation 2023-03-15 2345-7 GLUCOSE 176 MG/DL 70-99 H 2023-03-15 3094-0 BUN 36 MG/DL 6-24 H 2023-03-15 2160-0 CREATININE 4.39 MG/DL 0.57-1.00 H 2023-03-15 47726-3 EGFR 11 ML/MIN/1.73 >59 L 2023-03-15 3097-3 BUN/CREATININE RATIO 8 9-23 L 2023-03-15 2951-2 SODIUM 136 MMOL/L 223-558 9925-12-05 2823-3 POTASSIUM 4.4 MMOL/L 3.5-5.2 2023-03-15 2075-0 CHLORIDE 94 MMOL/L 96-106 L 2023-03-15 2028-9 CARBON DIOXIDE, TOTAL 25 MMOL/L 20-29 2023-03-15 62953-3 CALCIUM 9.5 MG/DL 8.7-10.2 2023-03-15 2885-2 PROTEIN, TOTAL 7.1 G/DL 6.0-8.5 2023-03-15 1751-7 ALBUMIN 4 G/DL 3.8-4.9 2023-03-15 06513-8 GLOBULIN, TOTAL 3.1 G/DL 1.5-4.5 2023-03-15 1759-0 A/G RATIO 1.3 1.2-2.2 2023-03-15 1975-2 BILIRUBIN, TOTAL .3 MG/DL 0.0-1.2 2023-03-15 6768-6 ALKALINE PHOSPHATASE 93 IU/L 44-121 2023-03-15 1920-8 AST (SGOT) 9 IU/L 0-40 2023-03-15 1742-6 ALT (SGPT) 6 IU/L 0-32 2023-03-15 86977-1 TSH 2.01 UIU/ML 0.450-4.500 2023-03-15 6690-2 WBC 6 X10E3/UL 3.4-10.8 2023-03-15 789-8 RBC 3.45 X10E6/UL 3.77-5.28 L 2023-03-15 718-7 HEMOGLOBIN 10.8 G/DL 11.1-15.9 L 2023-03-15 4544-3 HEMATOCRIT 31.8 % 34.0-46.6 L 2023-03-15 787-2 MCV 92 FL 79-97 2023-03-15 785-6 MCH 31.3 PG 26.6-33.0 2023-03-15 786-4 MCHC 34 G/DL 31.5-35.7 2023-03-15 788-0 RDW 13.2 % 11.7-15.4 2023-03-15 777-3 PLATELETS 279 X10E3/UL 055-652 5129-12-05 770-8 NEUTROPHILS 68 % 2023-03-15 736-9 LYMPHS 23 % 2023-03-15 5905-5 MONOCYTES 8 % 2023-03-15 713-8 EOS 0 % 2023-03-15 706-2 BASOS 0 % 2023-03-15 751-8 NEUTROPHILS (ABSOLUTE) 4.1 X10E3/UL 1.4-7.0 2023-03-15 731-0 LYMPHS (ABSOLUTE) 1.4 X10E3/UL 0.7-3.1 2023-03-15 742-7 MONOCYTES(ABSOLUTE) .5 X10E3/UL 0.1-0.9 2023-03-15 711-2 EOS (ABSOLUTE) 0 X10E3/UL 0.0-0.4 2023-03-15 704-7 BASO (ABSOLUTE) 0 X10E3/UL 0.0-0.2 2023-03-15 94216-1 IMMATURE GRANULOCYTES 1 % 2023-03-15 21874-5 IMMATURE GRANS (ABS) 0 X10E3/UL 0.0-0.1 2023-03-153-3 CHOLESTEROL, TOTAL 152 MG/DL 061-191 0393-12-05 2571-8 TRIGLYCERIDES 118 MG/DL 0-149 2023-03-155-9 HDL CHOLESTEROL 39 MG/DL >39 L 2023-03-15 91408-1 VLDL CHOLESTEROL IAM 21 MG/DL 5-40 2023-03-15 73283-5 LDL CHOL CALC ([facility]) 92 MG/DL 0-99 2023-03-15 9830-1 T CHOL/HDL RATIO 3.9 RATIO 0.0-4.4 2023-03-15 4548-4 HEMOGLOBIN A1C 6.2 % 4.8-5.6 H
--- OUTSIDE RECORDS SUMMARY | 2024-03-15 07:25 | XMS_ITS ---
Author Name Mary De Leon Address [address] [place] [address] Phone [phone] Organization [facility] e, NA DOCUMENT DISCLAIMER Multiple document versions may exist, please be sure you review the latest version. The information in the [facility] Progress Note Document represents a providers documented clinical note containing certain health and medical information. It may not contain the complete medical history for the patient and should be independently verified. The represented time in the document is Eastern Time PROVIDER ROUNDING NOTE BASIC Revised?By:?Mary?Moises,?BRAIDED BAND ASSEMBLER Revised?Date:?03/02/2024?11:58:20?AM Revised?Reason:?Date?correction,?rounded?on?dialysis?on?03/01/24 Patient:?Elvi?Kaiser,?1965,?58y,?F Dialysis?Location:[facility] Attending?Senior Java Web Developer:?Carmen Service?Date:?03/02/2024 Service?Provider:?Mary?Moises,?BRAIDED BAND ASSEMBLER I?met?face?to?face?with?the?patient?today. 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 Medications?and?labs?reviewed. LAST?HOSPITALIZATION Discharge?Diagnosis:?R29.6?Repeated?falls R53.1?Weakness R41.0?Disorientation,?unspecified N39.0?Urinary?tract?infection,?site?not?specified Admission?Date?12/27/23 Discharge?Date?12/30/23 DIALYSIS?PRESCRIPTION ??IHD?3x?Week?Start?date:?02/25/24 ??Dialyzer:?160NRe?Optiflux ??BFR:?450 ??DFR:?Autoflow?1.5 ??Potassium:?2.0 ??Sodium:?136 ??EDW:?88.7 ??Duration:?3:30 ??Calcium:?2.0 ??Bicarb:?36 ??Rx?updated?on:?02/25/2024 TREATMENT?ASSESSMENT Comments:?End?of?HD?after?UF?BPs?are?stable?at?goal. BP?Stand?Pre ??02/25/2024:?158/74 BP?Sit?Pre ??03/01/2024:?153/70 ??02/28/2024:?129/77 ??02/25/2024:?156/63 BP?Stand?Post ??02/25/2024:?135/51 BP?Sit?Post ??03/01/2024:?133/66 ??02/28/2024:?146/58 ??02/25/2024:?119/59 Tx?Duration ??03/01/2024:?3:33 ??02/28/2024:?3:35 ??02/25/2024:?3:40 Missed?Treatments 1?-?last?30?days 1?-?last?60?days 11/2?-?recent FLUID?ASSESSMENT Comments:? Increase?time?to?3:30?until?can?get?back?to?EDW.?& #160;Fluid?gains?have?improved?some.??No?change?to?tx time?as?of?yet EDW?(kg) ??03/01/2024:?88.7 ??02/28/2024:?88.7 ??02/25/2024:?89.0 Weight?Pre?(kg) ??03/01/2024:?92.1 ??02/28/2024:?93.3 ??02/25/2024:?90.9 Weight?Post?(kg) ??03/01/2024:?88.4 ??02/28/2024:?90.3 ??02/25/2024:?88.7 PWV?(kg) ??03/01/2024:?-0.3 ??02/28/2024:?1.6 ??02/25/2024:?-0.3 UF?Rate?(mL/kg/hr) ??03/01/2024:?11.8 ??02/28/2024:?9.3 ??02/25/2024:?6.8 ADEQUACY?ASSESSMENT Adequacy?target?met.? spKt/V,?URR ??02/16/2024:?1.45,?71.0 ??01/11/2024:?3.36,?94.0 ??01/04/2024:?1.54,?75.0 ACCESS?ASSESSMENT ??Access?Type:?AVFistula ??Access?SubType:?Transposed ??Access?Status:?Active?(In?Use)?-?12/19/2020 ??Access?Location:?Right?Upper?Arm ??Created:?10/14/2020 Flow ??11/28/2023:?1089 ??2023:?681 ??07/27/2023:?736 Comments:?Need?af?completed ANEMIA?ASSESSMENT Comments:?On?IV?iron?and?MAX Improving:?has?ongoing?active?infections?with?active?treatment. ?? HGB,?TSAT ??02/23/2024:?9.4,?20.0 ??02/16/2024:?8.8,?- ??02/09/2024:?8.7,?- ?? Ferritin ??12/14/2023:?3827.0 ??09/21/2023:?1973.0 Mircera,?IVP?(mcg) ??02/23/2024:?150 ??02/09/2024:?150 ??01/26/2024:?150 BMM?ASSESSMENT PTH,?Intact ??12/14/2023:?307.0 ??09/21/2023:?204.0 ?? Calcium,?Phosphorus ??02/23/2024:?9.1,?4.7 ??01/11/2024:?8.8,?6.2 ??12/14/2023:?9.2,?4.7 Vitamin?D?(Calcitriol)?Oral?(mcg) ??03/01/2024:?0.5 ??02/28/2024:?0.5 ??02/25/2024:?0.5 NUTRITION?ASSESSMENT Comments:??has?ongoing?injuries?of?nonhealing?wounds. Potassium,?Albumin ??02/23/2024:?3.7,?- ??02/16/2024:?-,?3.1 ??01/11/2024:?5.0,?3.0 ?? eNPCR ??02/16/2024:?0.58 ??01/11/2024:?0.81 ??01/04/2024:?0.58 PHYSICAL?EXAM Exam?Not?Performed. DIAGNOSIS Chief?Complaint:?N18.6?End?stage?renal?disease Patient?data?updated?03/02/2024?at?11:51?AM Signed?By:?Moises,?Mary,?BRAIDED BAND ASSEMBLER??on?03/02/2024?11:58:20 AM END OF DOCUMENT
--- OUTSIDE RECORDS SUMMARY | 2024-03-15 07:25 | XMS_ITS ---
Author Name Mary De Leon Address [address] [place] [address] Phone [phone] Organization [facility] e, NA DOCUMENT DISCLAIMER Multiple document versions may exist, please be sure you review the latest version. The information in the [facility] Progress Note Document represents a providers documented clinical note containing certain health and medical information. It may not contain the complete medical history for the patient and should be independently verified. The represented time in the document is Eastern Time PROVIDER ROUNDING NOTE COMPREHENSIVE Patient:?Elvi?Kaiser,?1965,?58y,?F Dialysis?Location:?[place] Attending?Lens Coating Technician:?Carmen Service?Date:?11/21/2023 Service?Provider:?Mary?Moises,?PLASTER MOLDER I?met?face?to?face?with?the?patient?today. OVERVIEW The?patient?presented?with?ESRD?on?dialysis Primary?cause?of?renal?failure:?Type?2?diabetes?mellitus&#16 0;with?diabetic?chronic?kidney?disease Comments:?PCP:?Vivienne?Jazz VSS,?seen?on?HD?machine, Fell?two?days?ago,?bruising?above?and?below?L?eye:&#160 ;reports?she?went?to?ER?and?had?it?assessed Medications?and?labs?reviewed. LAST?HOSPITALIZATION Discharge?Diagnosis:?L03.90?Cellulitis,?unspecified Admission?Date?09/16/23 Discharge?Date?09/20/23 DIALYSIS?PRESCRIPTION ??IHD?3x?Week?Start?date:?11/09/23 ??Dialyzer:?160NRe?Optiflux ??BFR:?450 ??DFR:?Autoflow?1.5 ??Potassium:?2.0 ??Sodium:?136 ??EDW:?91 ??Duration:?3:00 ??Calcium:?2.0 ??Bicarb:?36 ??Rx?updated?on:?11/07/2023 TREATMENT?ASSESSMENT Comments:?End?of?HD?after?UF?BPs?are?stable?at?goal. BP?Stand?Pre ??11/07/2023:?135/100 BP?Sit?Pre ??11/07/2023:?106/55 ??11/04/2023:?110/51 ??11/02/2023:?142/66 BP?Sit?Post ??11/07/2023:?110/63 ??11/04/2023:?128/74 ??11/02/2023:?155/136 Tx?Duration ??11/07/2023:?3:00 ??11/04/2023:?3:09 ??11/02/2023:?3:02 Missed?Treatments 0?-?last?30?days 1?-?last?60?days 7/10?-?recent FLUID?ASSESSMENT Comments:?Ed?on?fluid?gains. As?above. EDW?(kg) ??11/07/2023:?91.5 ??11/04/2023:?92.0 ??11/02/2023:?92.0 Weight?Pre?(kg) ??11/07/2023:?93.7 ??11/04/2023:?92.9 ??11/02/2023:?91.5 Weight?Post?(kg) ??11/07/2023:?90.9 ??11/04/2023:?91.4 ??11/02/2023:?91.6 PWV?(kg) ??11/07/2023:?-0.6 ??11/04/2023:?-0.6 ??11/02/2023:?-0.4 UF?Rate?(mL/kg/hr) ??11/07/2023:?10.3 ??11/04/2023:?5.2 ??11/02/2023:?-0.4 ADEQUACY?ASSESSMENT Comments:?No?new?labs spKt/V,?URR ??10/12/2023:?1.49,?73.0 ??09/21/2023:?1.48,?71.0 ??08/10/2023:?1.54,?74.0 ACCESS?ASSESSMENT ??Access?Type:?AVFistula ??Access?SubType:?Transposed ??Access?Status:?Active?(In?Use)?-?12/19/2020 ??Access?Location:?Right?Upper?Arm ??Created:?10/14/2020 Flow ??2023:?681 ??07/27/2023:?736 ??06/24/2023:?1237 Comments:?If?further?decline?this?month,?send?for?Fistulogram. ANEMIA?ASSESSMENT Comments:?On?IV?iron?and?MAX?protocol. Misssed?mircera?doses?with?missed?tx,??increase?mircera&#160 ;dose?per?alg,?review?process?to?catch?missed?doses? Hgb?improving HGB ??11/02/2023:?8.3 ??2023:?7.7 ??10/21/2023:?8.2 ?? Ferritin ??09/21/2023:?1973.0 ??06/15/2023:?1601.0 Mircera,?IVP?(mcg) ??11/02/2023:?30 ??09/21/2023:?50 ??08/26/2023:?30 BMM?ASSESSMENT Comments:?No?new?labs PTH,?Intact ??09/21/2023:?204.0 ??07/13/2023:?754.0 ??06/15/2023:?414.0 ?? Calcium,?Phosphorus ??10/12/2023:?8.5,?6.3 ??09/21/2023:?7.7,?3.6 ??08/10/2023:?7.9,?6.7 Vitamin?D?(Calcitriol)?Oral?(mcg) ??11/07/2023:?0.5 ??11/04/2023:?0.5 ??11/02/2023:?0.5 NUTRITION?ASSESSMENT Comments:?NO?new?labs Potassium,?Albumin ??10/12/2023:?5.2,?3.2 ??09/21/2023:?4.8,?2.7 ??08/10/2023:?4.8,?3.5 ?? eNPCR ??10/12/2023:?0.7 ??08/10/2023:?0.64 ??07/13/2023:?0.95 PHYSICAL?EXAM Exam?Not?Performed. DIAGNOSIS Chief?Complaint:?N18.6?End?stage?renal?disease Patient?data?updated?11/21/2023?at?8:06?AM Signed?By:?Moises,?Mary,?PLASTER MOLDER??on?11/21/2023?8:11:04 AM END OF DOCUMENT
--- OUTSIDE RECORDS SUMMARY | 2024-03-15 07:25 | XMS_ITS ---
Author Name Moises Mary Address [address] [place] [address] Phone [phone] Organization [facility] e, NA DOCUMENT DISCLAIMER Multiple document versions may exist, please be sure you review the latest version. The information in the [facility] Progress Note Document represents a providers documented clinical note containing certain health and medical information. It may not contain the complete medical history for the patient and should be independently verified. The represented time in the document is Eastern Time PROVIDER ROUNDING NOTE BASIC Patient:?Elvi?Kaiser,?1965,?58y,?F Dialysis?Location:[place] Attending?Rolls Baker:?Carmen Service?Date:?01/09/2024 Service?Provider:?Mary?Moises,?SPONGE HOOKER I?met?face?to?face?with?the?patient?today. OVERVIEW The?patient?presented?with?ESRD?on?dialysis Primary?cause?of?renal?failure:?Type?2?diabetes?mellitus&#16 0;with?diabetic?chronic?kidney?disease Comments:?PCP:?Vivienne?Jazz VSSav,?seen?on?HD?machine,?denies?needs?for?me?today Remains?at?a?NH?for?PT/OT. Medications?and?labs?reviewed. LAST?HOSPITALIZATION Discharge?Diagnosis:?R29.6?Repeated?falls R53.1?Weakness R41.0?Disorientation,?unspecified N39.0?Urinary?tract?infection,?site?not?specified Admission?Date?12/27/23 Discharge?Date?12/30/23 Comments:?UTI,?subsequent?fall?episodes,?remains?at?[facility] DIALYSIS?PRESCRIPTION ??IHD?3x?Week?Start?date:?12/07/23 ??Dialyzer:?160NRe?Optiflux ??BFR:?450 ??DFR:?Autoflow?1.5 ??Potassium:?2.0 ??Sodium:?136 ??EDW:?84.1 ??Duration:?3:00 ??Calcium:?2.0 ??Bicarb:?36 ??Rx?updated?on:?12/07/2023 TREATMENT?ASSESSMENT Comments:?End?of?HD?after?UF?BPs?are?stable?at?goal. BP?Sit?Pre ??01/06/2024:?98/88 ??01/04/2024:?127/72 ??01/02/2024:?161/74 BP?Sit?Post ??01/06/2024:?143/64 ??01/04/2024:?121/77 ??01/02/2024:?117/85 Tx?Duration ??01/06/2024:?3:16 ??01/04/2024:?3:01 ??01/02/2024:?3:05 Missed?Treatments 0?-?last?30?days 1?-?last?60?days 8/9?-?recent FLUID?ASSESSMENT Comments:?Ed?on?fluid?gains. As?above. EDW?(kg) ??01/06/2024:?84.1 ??01/04/2024:?84.1 ??01/02/2024:?84.1 Weight?Pre?(kg) ??01/06/2024:?86.6 ??01/04/2024:?85.8 ??01/02/2024:?85.8 Weight?Post?(kg) ??01/06/2024:?84.7 ??01/04/2024:?84.5 ??01/02/2024:?84.1 PWV?(kg) ??01/06/2024:?0.6 ??01/04/2024:?0.4 ??01/02/2024:?0.0 UF?Rate?(mL/kg/hr) ??01/06/2024:?6.9 ??01/04/2024:?5.1 ??01/02/2024:?6.6 ADEQUACY?ASSESSMENT Adequacy?target?met.? spKt/V,?URR ??01/04/2024:?1.54,?75.0 ??12/14/2023:?1.31,?69.0 ??11/21/2023:?1.63,?77.0 ACCESS?ASSESSMENT ??Access?Type:?AVFistula ??Access?SubType:?Transposed ??Access?Status:?Active?(In?Use)?-?12/19/2020 ??Access?Location:?Right?Upper?Arm ??Created:?10/14/2020 Flow ??11/28/2023:?1089 ??2023:?681 ??07/27/2023:?736 Vascular?access?reviewed.?Current?access?is?permanent?and?functioning?well. ANEMIA?ASSESSMENT Comments:?On?IV?iron?and?MAX?protocol. Increasing?mircera?per?alg HGB ??01/04/2024:?8.8 ??01/02/2024:?9.2 ??12/21/2023:?7.9 ?? Ferritin ??12/14/2023:?3827.0 ??09/21/2023:?1973.0 ??06/15/2023:?1601.0 Mircera,?IVP?(mcg) ??12/14/2023:?100 ??11/21/2023:?30 ??11/02/2023:?30 BMM?ASSESSMENT Comments:?Stable?at?goal.??No?new?labs?to?review PTH,?Intact ??12/14/2023:?307.0 ??09/21/2023:?204.0 ??07/13/2023:?754.0 ?? Calcium,?Phosphorus ??12/14/2023:?9.2,?4.7 ??11/21/2023:?8.9,?4.3 ??10/12/2023:?8.5,?6.3 Vitamin?D?(Calcitriol)?Oral?(mcg) ??01/06/2024:?0.5 ??01/04/2024:?0.5 ??01/02/2024:?0.5 NUTRITION?ASSESSMENT Comments:?No?new?labs?to?review Potassium,?Albumin ??12/14/2023:?4.2,?3.3 ??11/21/2023:?4.6,?3.4 ??10/12/2023:?5.2,?3.2 ?? eNPCR ??01/04/2024:?0.58 ??12/14/2023:?0.51 ??10/12/2023:?0.7 PHYSICAL?EXAM Exam?Not?Performed. DIAGNOSIS Chief?Complaint:?N18.6?End?stage?renal?disease Patient?data?updated?01/09/2024?at?7:57?AM Signed?By:?Moises,?Mary,?SPONGE HOOKER??on?01/09/2024?7:59:02 AM END OF DOCUMENT
--- OUTSIDE RECORDS SUMMARY | 2024-03-15 07:25 | XMS_ITS ---
Author Name MoisesTarshaMary Address [address] [place] [address] Phone [phone] Organization [facility], NA DOCUMENT DISCLAIMER Multiple document versions may exist, please be sure you review the latest version. The information in the [facility] Emergency Department Progress Note Document represents a providers documented clinical note containing certain health and medical information. It may not contain the complete medical history for the patient and should be independently verified. The represented time in the document is Eastern Time PROVIDER ROUNDING NOTE COMPREHENSIVE Patient:?Elvi?Kaiser,?1965,?58y,?F Dialysis?Location:?[place] Attending?Network Control Operator:?Carmen Service?Date:?02/16/2024 Service?Provider:?Mary?Moises,?BOILER REPAIR SUPERVISOR I?met?face?to?face?with?the?patient?today. OVERVIEW The?patient?presented?with?ESRD?on?dialysis Primary?cause?of?renal?failure:?Type?2?diabetes?mellitus&#16 0;with?diabetic?chronic?kidney?disease Comments:?PCP:?Vivienne?Jazz VSS,?seen?on?HD?machine,?denies?needs?for?me?today Medications?and?labs?reviewed. LAST?HOSPITALIZATION Discharge?Diagnosis:?R29.6?Repeated?falls R53.1?Weakness R41.0?Disorientation,?unspecified N39.0?Urinary?tract?infection,?site?not?specified Admission?Date?12/27/23 Discharge?Date?12/30/23 DIALYSIS?PRESCRIPTION ??IHD?3x?Week?Start?date:?02/14/24 ??Dialyzer:?160NRe?Optiflux ??BFR:?450 ??DFR:?Autoflow?1.5 ??Potassium:?2.0 ??Sodium:?136 ??EDW:?89 ??Duration:?3:30 ??Calcium:?2.0 ??Bicarb:?36 ??Rx?updated?on:?02/14/2024 TREATMENT?ASSESSMENT Comments:?End?of?HD?after?UF?BPs?are?stable?at?goal. BP?Stand?Pre ??02/18/2024:?164/72 ??02/16/2024:?139/56 ??02/14/2024:?148/71 BP?Sit?Pre ??02/18/2024:?185/74 ??02/16/2024:?140/68 ??02/14/2024:?142/53 BP?Stand?Post ??02/18/2024:?150/81 ??02/16/2024:?158/68 ??02/14/2024:?159/73 BP?Sit?Post ??02/18/2024:?134/59 ??02/16/2024:?131/57 ??02/14/2024:?151/78 Tx?Duration ??02/18/2024:?3:34 ??02/16/2024:?3:30 ??02/14/2024:?4:05 Missed?Treatments 1?-?last?30?days 1?-?last?60?days 11/2?-?recent FLUID?ASSESSMENT Comments:? Increase?time?to?3:30?until?can?get?back?to?EDW.?& #160;Fluid?gains?have?improved?some.??No?change?to?tx time?as?of?yet EDW?(kg) ??02/18/2024:?89.0 ??02/16/2024:?89.0 ??02/14/2024:?88.0 Weight?Pre?(kg) ??02/18/2024:?91.9 ??02/16/2024:?92.3 ??02/14/2024:?94.4 Weight?Post?(kg) ??02/18/2024:?89.1 ??02/16/2024:?89.0 ??02/14/2024:?89.8 PWV?(kg) ??02/18/2024:?0.1 ??02/16/2024:?0.0 ??02/14/2024:?1.8 UF?Rate?(mL/kg/hr) ??02/18/2024:?8.8 ??02/16/2024:?10.6 ??02/14/2024:?12.5 ADEQUACY?ASSESSMENT Adequacy?target?met.? spKt/V,?URR ??02/16/2024:?1.45,?71.0 ??01/11/2024:?3.36,?94.0 ??01/04/2024:?1.54,?75.0 ACCESS?ASSESSMENT ??Access?Type:?AVFistula ??Access?SubType:?Transposed ??Access?Status:?Active?(In?Use)?-?12/19/2020 ??Access?Location:?Right?Upper?Arm ??Created:?10/14/2020 Flow ??11/28/2023:?1089 ??2023:?681 ??07/27/2023:?736 Comments:?Need?af?completed ANEMIA?ASSESSMENT Comments:?On?IV?iron?and?MAX HGB ??02/16/2024:?8.8 ??02/09/2024:?8.7 ??02/02/2024:?8.8 ?? Ferritin ??12/14/2023:?3827.0 ??09/21/2023:?1973.0 Mircera,?IVP?(mcg) ??02/09/2024:?150 ??01/26/2024:?150 ??01/11/2024:?100 BMM?ASSESSMENT Referred?to?dietitian.? PTH,?Intact ??12/14/2023:?307.0 ??09/21/2023:?204.0 ?? Calcium,?Phosphorus ??01/11/2024:?8.8,?6.2 ??12/14/2023:?9.2,?4.7 ??11/21/2023:?8.9,?4.3 Vitamin?D?(Calcitriol)?Oral?(mcg) ??02/18/2024:?0.5 ??02/16/2024:?0.5 ??02/14/2024:?0.5 NUTRITION?ASSESSMENT Comments:??has?ongoing?injuries?of?nonhealing?wounds. Potassium,?Albumin ??02/16/2024:?-,?3.1 ??01/11/2024:?5.0,?3.0 ??12/14/2023:?4.2,?3.3 ?? eNPCR ??02/16/2024:?0.58 ??01/11/2024:?0.81 ??01/04/2024:?0.58 PHYSICAL?EXAM Exam?Not?Performed. DIAGNOSIS Chief?Complaint:?N18.6?End?stage?renal?disease Patient?data?updated?02/20/2024?at?8:11?PM Signed?By:?Moises,?Mary,?BOILER REPAIR SUPERVISOR??on?02/20/2024?8:13:52 PM END OF DOCUMENT
--- OUTSIDE RECORDS SUMMARY | 2024-03-15 07:25 | XMS_ITS | Continuity of Care Document ---
Author Name Unknown Organization [facility] Address [id number] [address] Phone Care Team Providers Care Reconciliation Specialist Name Role Phone Marcell SANCHEZ MD, Pako Unavailable Unavailab le Allergies, Adverse Reactions, Alerts Substance Reaction Status Criticality TRAMADOL HCL Active No Information adhesive Active No Information latex Active No Information kiwi Active No Information IODINE Active No Information gabapentin Active No Information OXYCODONE HCL Active No Information HYDROCODONE BITARTRATE Active No In formation acetaminophen Active No Information codeine Active No Information acetaminophen Active No Information aspirin Active No Information Medications Medication Instructions Dosage Effective Dates (start - stop) Status Comments Dilaudid 2 mg tablet take 1 tablet by or al route every 6 hours as needed 2 MG - Active amoxicillin 500 mg capsule take 1 capsule (500MG) by ORAL route every 8 hours after procedure - Active Victoza 2-Jeffrey 0.6 mg/0.1 mL (18 mg/3 mL) subcutaneous pen injector inject (1.2MG) by subcutaneous route every day 1.2 MG - Active levothyroxine 13 mcg capsule take 1 capsule by oral route every day 13 MCG - Active Lexapro 5 mg tablet take 1 tablet by ora l route every day 5 MG - Active melatonin 3 mg capsule - Active Benadryl 25 mg capsule take 2 capsule by oral route every 4 - 6 hours as needed 50 MG - Active atorvastatin 10 mg tablet take 1 tablet by oral route every day 10 MG - Active All Day Allergy (cetirizine) 10 mg capsule - Active Novolog Flexpen U-100 Insulin aspart 100 unit/mL (3 mL) subcutaneous inject by subcutaneous route per prescriber's instructions. Insulin dosing requires individualization. 0.00 - Active Requip 0.25 mg tablet take 1 tablet by o ral route 3 times every day - Active Mirapex 0.125 mg tablet take 1 tablet by oral route 3 times every day - Active Renal Vitamin 0.8 mg tablet - Active Procedures Procedure Date Extraction, Erupted Tooth Or Exposed Allyson t ( Extraction, Erupted Tooth Or Exposed Allyson t ( Extraction, Erupted Tooth Or Exposed Allyson t ( Extraction, Erupted Tooth Or Exposed Allyson t ( Extraction, Erupted Tooth Or Exposed Allyson t ( Extraction, Erupted Tooth Or Exposed Allyson t ( Extraction, Erupted Tooth Or Exposed Allyson t ( Extraction, Erupted Tooth Or Exposed Allyson t ( Extraction, Erupted Tooth Or Exposed Allyson t ( Extraction, Erupted Tooth Or Exposed Allyson t ( Extraction, Erupted Tooth Or Exposed Allyson t ( Extraction, Erupted Tooth Or Exposed Allyson t ( Extraction, Erupted Tooth Or Exposed Allyson t ( Extraction, Erupted Tooth Or Exposed Allyson t ( Extraction, Erupted Tooth Or Exposed Allyson t ( Extraction, Erupted Tooth Or Exposed Allyson t ( Extraction, Erupted Tooth Or Exposed Allyson t ( Extraction, Erupted Tooth Or Exposed Allyson t ( Extraction, Erupted Tooth Or Exposed Allyson t ( Extraction, Erupted Tooth Or Exposed Allyson t ( Extraction, Erupted Tooth Or Exposed Allyson t ( Limited Oral Evaluation ??? Problem Focu sed EDR Approval Note Limited Oral Evaluation ??? Problem Focu sed EDR Approval Note Comprehensive Oral Evaluation ??? New Or Established Panoramic Film EDR Approval Note Intraoral ??? Periapical First Film Intraoral ??? Periapical Each Additional Film Limited Oral Evaluation ??? Problem Focu sed Extraction, Erupted Tooth Or Exposed Allyson t (Elevati Extraction, Erupted Tooth Or Exposed Allyson t (Elevati EDR Approval Note Advance Directives Directive Yes / No Effective Date File Name No Information Encounters Encounter Description Practice Location Reason(s) For Visit Diagnoses Date Provider Providers Copied on Encounter [facility], [id number], [id number], [place] tel:[phone] Dental [facility] Encounter for dental exam and cleaning w/o abnormal findings Marcell Min. [address] [place], [address], [place]. tel:[phone] Referring Provider: Pako Tellez, [address] [place], [address]. tel:[phone] [facility], [id number], [id number], [place] tel:[phone] Dental General No Information Marcell Min. [address] [place], [address], [place]. tel:[phone] [facility], [id number], [id number], [place] tel:[phone] Dental [facility] Encounter for dental exam and cleaning w/o abnormal findings Marcell Min. [address] [place], [address], [place]. tel:[phone] Referring Provider: Pako Tellez, [address] [place], [address]. tel:[phone] [facility], [id number], [id number], [place] tel:[phone] [facility] Encounter for dental exam and cleaning w/o abnormal findings Marcell Min. [address] [place], [address], [place]. tel:[phone] Referring Provider: Pako Tellez, [address] [place], [address]. tel:[phone] [facility], [id number] [id number], [id number], [place] tel:[phone] [facility] Encounter for dental exam and cleaning w/o abnormal findings Parviz Fitzgearld. [address] [place], [address], [place]. tel:[phone] Referring Provider: Amilcar Polanco, [address] [place], [address]. tel:[phone] [facility], [id number] [address], [id number], [place] tel:[phone] [facility] Encounter for dental exam and cleaning w/o abnormal findings Prachi Guo. [address], [place], [id number], [place]. tel:[phone] Referring Provider: Brant Jean Baptiste, [address] [place], [address]. tel:[phone] Family History Family Member Type Diagnosis Age At Onset No Information Payers Payer name Insurance type Covered republican ID Manuela umana(princess) Ita [facility] Advantage CI [id number] Social History Type Description Quantity Date Captured Comments Sex Female Smoking Status No Information Sexual Orientation Decline To Specify Gender Identity Female Chief Complaint And Reason For Visit No Information Reason For Referral Reason For Referral No Information History Of Present Illness Encounter Date Complaint History Of Prese nt Illness No Information Functional Status Date Functional Assessmen t No Information Instructions Date Instruction Additional Infor mation No Information Assessments Type Assessment Date No Information Patient Care Teams Name Effective Dates (start - stop) Status Members No Information
--- OUTSIDE RECORDS SUMMARY | 2024-03-15 07:25 | XMS_ITS ---
Author Name Janis Odonnell Address [address] [place] [address] Phone [phone] Organization [facility], NA DOCUMENT DISCLAIMER Multiple document versions may exist, please be sure you review the latest version. The information in the [facility] Progress Note Document represents a providers documented clinical note containing certain health and medical information. It may not contain the complete medical history for the patient and should be independently verified. The represented time in the document is Eastern Time PROVIDER ROUNDING NOTE COMPREHENSIVE Patient:?Elvi?Job,?1965,?58y,?F Dialysis?Location:?[place] Attending?Consumer Affairs Director:?Carmen Service?Date:?03/05/2024 Service?Provider:?Janis?Blas,? I?met?face?to?face?with?the?patient?today. 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 Medications?and?labs?reviewed. LAST?HOSPITALIZATION Discharge?Diagnosis:?R29.6?Repeated?falls R53.1?Weakness R41.0?Disorientation,?unspecified N39.0?Urinary?tract?infection,?site?not?specified Admission?Date?12/27/23 Discharge?Date?12/30/23 DIALYSIS?PRESCRIPTION ??IHD?3x?Week?Start?date:?02/25/24 ??Dialyzer:?160NRe?Optiflux ??BFR:?450 ??DFR:?Autoflow?1.5 ??Potassium:?2.0 ??Sodium:?136 ??EDW:?88.7 ??Duration:?3:30 ??Calcium:?2.0 ??Bicarb:?36 ??Rx?updated?on:?02/25/2024 TREATMENT?ASSESSMENT Comments:?End?of?HD?after?UF?BPs?are?stable?at?goal. BP?Sit?Pre ??03/05/2024:?136/73 ??03/03/2024:?135/70 ??03/01/2024:?153/70 BP?Sit?Post ??03/05/2024:?138/63 ??03/03/2024:?136/72 ??03/01/2024:?133/66 Tx?Duration ??03/05/2024:?3:20 ??03/03/2024:?3:32 ??03/01/2024:?3:33 Missed?Treatments 1?-?last?30?days 1?-?last?60?days 11/2?-?recent FLUID?ASSESSMENT Comments:? Increase?time?to?3:30?until?can?get?back?to?EDW.?& #160;Fluid?gains?have?improved?some.??No?change?to?tx time?as?of?yet EDW?(kg) ??03/05/2024:?88.7 ??03/03/2024:?88.7 ??03/01/2024:?88.7 Weight?Pre?(kg) ??03/05/2024:?89.9 ??03/03/2024:?91.7 ??03/01/2024:?92.1 Weight?Post?(kg) ??03/05/2024:?88.9 ??03/03/2024:?88.7 ??03/01/2024:?88.4 PWV?(kg) ??03/05/2024:?0.2 ??03/03/2024:?0.0 ??03/01/2024:?-0.3 UF?Rate?(mL/kg/hr) ??03/05/2024:?3.4 ??03/03/2024:?9.6 ??03/01/2024:?11.8 ADEQUACY?ASSESSMENT Comments:?Stable. spKt/V,?URR ??02/16/2024:?1.45,?71.0 ??01/11/2024:?3.36,?94.0 ??01/04/2024:?1.54,?75.0 ACCESS?ASSESSMENT ??Access?Type:?AVFistula ??Access?SubType:?Transposed ??Access?Status:?Active?(In?Use)?-?12/19/2020 ??Access?Location:?Right?Upper?Arm ??Created:?10/14/2020 Flow ??11/28/2023:?1089 ??2023:?681 ??07/27/2023:?736 Comments:?Need?af?completed-pending ANEMIA?ASSESSMENT Comments:?On?IV?iron?and?MAX Improving:?has?ongoing?active?infections?with?active?treatment. ?? HGB,?TSAT ??03/01/2024:?10.0,?- ??02/23/2024:?9.4,?20.0 ??02/16/2024:?8.8,?- ?? Ferritin ??12/14/2023:?3827.0 ??09/21/2023:?1973.0 Mircera,?IVP?(mcg) ??02/23/2024:?150 ??02/09/2024:?150 ??01/26/2024:?150 BMM?ASSESSMENT PTH?controlled.?Calcium?controlled.?Phosphorus?controlled.?BMM?me ds?adherence?acceptable.?No?changes?indicated.? PTH,?Intact ??12/14/2023:?307.0 ??09/21/2023:?204.0 ?? Calcium,?Phosphorus ??02/23/2024:?9.1,?4.7 ??01/11/2024:?8.8,?6.2 ??12/14/2023:?9.2,?4.7 Vitamin?D?(Calcitriol)?Oral?(mcg) ??03/03/2024:?0.5 ??03/01/2024:?0.5 ??02/28/2024:?0.5 NUTRITION?ASSESSMENT Comments:??Has?ongoing?injuries?of?nonhealing?wounds. Referred?to?dietitian.? Potassium,?Albumin ??02/23/2024:?3.7,?- ??02/16/2024:?-,?3.1 ??01/11/2024:?5.0,?3.0 ?? eNPCR ??02/16/2024:?0.58 ??01/11/2024:?0.81 ??01/04/2024:?0.58 PHYSICAL?EXAM Exam?Performed.?Vital?Signs?Reviewed.?CV?-?Blood?pressure&#1 60;noted.?EXT?-?No?edema.?EXT?-?No?ulcers. DIAGNOSIS Chief?Complaint:?N18.6?End?stage?renal?disease Patient?is?stable. Patient?data?updated?03/05/2024?at?3:50?PM Signed?By:?Blas,?Janis???on?03/05/2024?3:51:45?PM END OF DOCUMENT
--- OUTSIDE RECORDS SUMMARY | 2024-03-15 07:25 | XMS_ITS ---
Author Name Kiley Estevez Address [address] [place] [address] Phone [phone] [facility], NA DOCUMENT DISCLAIMER Multiple document versions may exist, please be sure you review the latest version. The information in the [facility] Emergency Department Progress Note Document represents a providers documented clinical note containing certain health and medical information. It may not contain the complete medical history for the patient and should be independently verified. The represented time in the document is Eastern Time PROVIDER ROUNDING NOTE COMPREHENSIVE Patient:?Elvi?Job,?1965,?58y,?F Dialysis?Location:?[place] Attending?Food Service Associate:?Janis?Blas Service?Date:?01/11/2024 Service?Provider:?Kiley?Herb,?HIGH SCHOOL HOME ECONOMICS TEACHER I?met?face?to?face?with?the?patient?today. 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 LAST?HOSPITALIZATION Discharge?Diagnosis:?R29.6?Repeated?falls R53.1?Weakness R41.0?Disorientation,?unspecified N39.0?Urinary?tract?infection,?site?not?specified Admission?Date?12/27/23 Discharge?Date?12/30/23 Comments:?UTI,?subsequent?fall?episodes,?remains?at?[facility] DIALYSIS?PRESCRIPTION ??IHD?3x?Week?Start?date:?12/07/23 ??Dialyzer:?160NRe?Optiflux ??BFR:?450 ??DFR:?Autoflow?1.5 ??Potassium:?2.0 ??Sodium:?136 ??EDW:?84.1 ??Duration:?3:00 ??Calcium:?2.0 ??Bicarb:?36 ??Rx?updated?on:?12/07/2023 TREATMENT?ASSESSMENT Comments:?End?of?HD?after?UF?BPs?are?stable?at?goal. Blood?pressure?controlled.?No?changes?indicated.? BP?Sit?Pre ??01/11/2024:?140/68 ??01/09/2024:?165/94 ??01/06/2024:?98/88 BP?Sit?Post ??01/11/2024:?102/81 ??01/09/2024:?134/85 ??01/06/2024:?143/64 Tx?Duration ??01/11/2024:?3:04 ??01/09/2024:?3:09 ??01/06/2024:?3:16 Missed?Treatments 0?-?last?30?days 1?-?last?60?days 8/9?-?recent FLUID?ASSESSMENT Comments:?Ed?on?fluid?gains. As?above. Fluid?status?acceptable.?Interdialytic?weight?gain?acceptable.?No ?changes?indicated.? EDW?(kg) ??01/11/2024:?84.1 ??01/09/2024:?84.1 ??01/06/2024:?84.1 Weight?Pre?(kg) ??01/11/2024:?86.0 ??01/09/2024:?85.2 ??01/06/2024:?86.6 Weight?Post?(kg) ??01/11/2024:?84.0 ??01/09/2024:?83.8 ??01/06/2024:?84.7 PWV?(kg) ??01/11/2024:?-0.1 ??01/09/2024:?-0.3 ??01/06/2024:?0.6 UF?Rate?(mL/kg/hr) ??01/11/2024:?7.8 ??01/09/2024:?5.3 ??01/06/2024:?6.9 ADEQUACY?ASSESSMENT Adequacy?target?met.?Prescription?compliance?acceptable.?No?changes?indicated.? spKt/V,?URR ??01/04/2024:?1.54,?75.0 ??12/14/2023:?1.31,?69.0 ??11/21/2023:?1.63,?77.0 ACCESS?ASSESSMENT ??Access?Type:?AVFistula ??Access?SubType:?Transposed ??Access?Status:?Active?(In?Use)?-?12/19/2020 ??Access?Location:?Right?Upper?Arm ??Created:?10/14/2020 Flow ??11/28/2023:?1089 ??2023:?681 ??07/27/2023:?736 Vascular?access?reviewed.?Current?access?is?permanent?and?functioning?well. ANEMIA?ASSESSMENT Comments:?On?IV?iron?and?MAX?protocol. Increasing?mircera?per?alg HGB?below?goal.? HGB ??01/04/2024:?8.8 ??01/02/2024:?9.2 ??12/21/2023:?7.9 ?? Ferritin ??12/14/2023:?3827.0 ??09/21/2023:?1973.0 Mircera,?IVP?(mcg) ??12/14/2023:?100 ??11/21/2023:?30 ??11/02/2023:?30 BMM?ASSESSMENT Comments:?Stable?at?goal.?? PTH?controlled.?Calcium?controlled.?Phosphorus?controlled.?No?[place] nges?indicated.? PTH,?Intact ??12/14/2023:?307.0 ??09/21/2023:?204.0 ??07/13/2023:?754.0 ?? Calcium,?Phosphorus ??12/14/2023:?9.2,?4.7 ??11/21/2023:?8.9,?4.3 ??10/12/2023:?8.5,?6.3 Vitamin?D?(Calcitriol)?Oral?(mcg) ??01/09/2024:?0.5 ??01/06/2024:?0.5 ??01/04/2024:?0.5 NUTRITION?ASSESSMENT Potassium?controlled.?Albumin?controlled.?No?changes?indicated.? Potassium,?Albumin ??12/14/2023:?4.2,?3.3 ??11/21/2023:?4.6,?3.4 ??10/12/2023:?5.2,?3.2 ?? eNPCR ??01/04/2024:?0.58 ??12/14/2023:?0.51 ??10/12/2023:?0.7 PHYSICAL?EXAM Exam?Performed.?Vital?Signs?Reviewed.?Lungs?-?Clear.?CV&#160 ;-?Blood?pressure?noted.?CV?-?RRR.?EXT?-?No?edema.?EXT?-?No?ulcers. DIAGNOSIS Chief?Complaint:?N18.6?End?stage?renal?disease Patient?is?stable.?Patient?discussed?with?nursing. Patient?data?updated?01/11/2024?at?3:35?PM Signed?By:?Herb,?Kiley,?HIGH SCHOOL HOME ECONOMICS TEACHER??on?01/11/2024?3:37:07?PM END OF DOCUMENT
--- NOTE | 2024-03-15 09:44 | PC.HD ---
Heparin 1000 units loading dose administered at 0915 via venous needle per ship propeller finisher's orders.
[2024-03-15 11:03] LABS: Basophils % 0.1 %; Hematocrit 28.4 % (36-47); Lymphocytes # 0.3 10^3/uL (0.8-4.8); Lymphocytes % 4.6 %; Mean Corpuscular HGB Conc 30.6 g/dL (30-55); Mean Corpuscular Hemoglobin 28.6 pg (27-33); Mean Corpuscular Volume 93.4 fl (85-98); Mean Platelet Volume 10.2 fL (7.4-10.4); Monocytes # 0.6 10^3/uL (0.2-0.9); Monocytes % 8.1 %; Neutrophils % 86.9 %; Nucleated Red Blood Cells % 0 %; Platelet Count 262 10^3/cmm (157-399); Red Blood Count 3.04 10^6/uL (3.85-5.65); Red Cell Distribution Width 17.5 % (12.1-15.1); White Blood Count 6.79 10^3/uL (3.29-11.43)
[2024-03-15 11:15] LABS: Alanine Aminotransferase 7 U/L (0-33); Albumin Level 2.6 g/dL (3.5-5.2); Alkaline Phosphatase 97 U/L (35-105); Anion Gap 13.3 (5-19); Aspartate Amino Transferase 13 U/L (0-32); Blood Urea Nitrogen 11 mg/dL (6-20); Calcium 8.6 mg/dL (8.5-10.5); Carbon Dioxide 27 mmol/L (22-29); Chloride 96 mmol/L (98-107); Creatinine Clr Calc Pharmacy 28.1673; Globulin 3.4 g/dL (1.3-4.6); Glomerular Filtration Rate 22.8 mL/min (90-130); Glucose 114 mg/dL (65-115); Osmolality Calculated 276 mOsm/kg (285-295); Potassium 3.3 mmol/L (3.5-5.1); Sodium 133 mmol/L (136-145); Total Bilirubin 0.5 mg/dL (0.15-1.2)
--- NOTE | 2024-03-15 11:33 | PM.CONSULT ---
Providers/Reason For Consult Consulting Physician/Specialty*: kommana /nEPHROLOGY Reason for Consult*: esrd Attending Physician: Tay Townsend MD Primary Care Provider: Vivienne Schulz MD History of Present Illness History of Present Illness Elvi Kaiser is a 58 year old female patient is a 58-year-old female with past medical history of end-stage renal disease on dialysis per TTS schedule, history of CVA, hypothyroidism history of abdominal wall cellulitis and was receiving debridement and by wound care was sent to the emergency department due to worsening cellulitis erythema and panniculitis. Vital signs are stable in the ED and lab data is significant for hemoglobin of 8.9. Patient is admitted for further management. Patient was also noted to be very confused and thought to be metabolic encephalopathy. Placed on IV Vanco and meropenem and IV Diflucan. Review of Systems Narrative: Negative Medications/Allergies Home Medications Medication Instructions Recorded Confirmed Last Taken Type carbidopa 25 mg-levodopa 100 mg 1 tab PO DAILY 05/20/20 03/14/24 02/20/24 History tablet ferric citrate 210 mg iron tablet 630 mg PO TID@08,12,05/20/20 03/14/24 02/20/24 History (Auryxia) blood-glucose meter,continuous #1 ea 09/24/21 03/14/24 Unknown Rx ([employer]ex[employer] G6 Transportation Maintenance Worker) blood-glucose sensor (Dexcom G6 #9 ea 09/24/21 03/14/24 Unknown Rx Sensor device) clopidogrel 75 mg tablet 75 mg PO DAILY #30 tabs 11/27/21 03/14/24 02/20/24 Rx blood-glucose transmitter (Dexcom #3 ea 12/24/21 03/14/24 Unknown Rx G6 Transmitter device) gabapentin 100 mg capsule 100 mg PO TID #90 caps 04/21/23 03/14/24 12/26/23 Rx levothyroxine 50 mcg tablet 50 mcg PO DAILY 08/24/23 03/14/24 02/20/24 History cyclobenzaprine 10 mg tablet 10 mg PO Q8H PRN MUSCLE SPASMS #14 09/04/23 03/14/24 02/20/24 Rx tabs ibuprofen 200 mg capsule (Advil 200 mg PO .Q4-6H PRN Pain 09/16/23 03/14/24 Unknown History Liqui-Gel) omeprazole 20 mg capsule,delayed 10 mg PO BEDTIME 09/16/23 03/14/24 02/20/24 History release escitalopram oxalate 20 mg tablet 20 mg PO DAILY 11/02/23 03/14/24 02/20/24 History rosuvastatin 20 mg tablet 20 mg PO BEDTIME 11/02/23 03/14/24 02/19/24 History vit B,C-folic ac 800 mcg-zinc 12.5 1 tab PO DAILY 11/02/23 03/14/24 02/20/24 History mg-selen-D3 2,000 unit-vit E tablet (RenaPlex-D) nystatin 100,000 unit/gram topical 1 applic topical TID 02/20/24 03/14/24 Unknown History ointment sulfamethoxazole 800 1 tab PO .COMPLEX #7 tabs 03/07/24 03/14/24 Unknown Rx mg-trimethoprim 160 mg tablet (Bactrim DS) amlodipine 5 mg tablet 5 mg PO DAILY 03/14/24 03/14/24 Unknown History cetirizine 10 mg tablet 10 mg PO BID 03/14/24 03/14/24 Unknown History diphenhydramine HCl 25 mg tablet 25 mg PO BID PRN allergies 03/14/24 03/14/24 Unknown History metoprolol tartrate 50 mg tablet 50 mg PO DAILY 03/14/24 03/14/24 Unknown History ropinirole 0.5 mg tablet 0.5 mg PO QPM 03/14/24 03/14/24 Unknown History Allergies Allergy/AdvReac Type Severity Reaction Status Date / Time acetaminophen Allergy Unknown ALGY-Hives Verified 01/30/24 11:09 codeine Allergy ALGY-Hives Verified 01/30/24 11:09 fentanyl Allergy ALGY-Hives Verified 01/30/24 11:09 hydrocodone Allergy ALGY-Hives Verified 01/30/24 11:09 influenza virus vaccine qs Allergy ALGY-Hives Verified 01/30/24 11:09 [id number](65 years up) [From [employer] (65y up)(PF)] Iodinated Contrast Media Allergy ALGY-Anaphy Verified 01/30/24 11:09 laxis kiwi Allergy ALGY-Anaphy Verified 01/30/24 11:09 laxis lisinopril Allergy ADR-Cough Verified 01/30/24 11:09 NSAIDS (Non-Steroidal Allergy ALGY-Hives Verified 01/30/24 11:09 Anti-Inflamma oxycodone Allergy ALGY-Hives Verified 01/30/24 11:09 pineapple Allergy ALGY-Anaphy Verified 01/30/24 11:09 laxis promethazine Allergy Unknown Verified 01/30/24 11:09 strawberry Allergy ALGY-Anaphy Verified 01/30/24 11:09 laxis tramadol Allergy ALGY-Hives Verified 01/30/24 11:09 vaccine adjuvant emulsion Allergy ALGY-Hives Verified 01/30/24 11:09 [id number] [From [employer] (65y up)(PF)] Current Medications Generic Name Dose Route Start Last Admin Trade Name Freq PRN Reason Stop Dose Admin Atorvastatin Calcium 80 mg 03/14/24 21:00 03/14/24 19:52 Atorvastatin 40 Mg Tablet PO Not Given BEDTIME JAMIE Enoxaparin Sodium 30 mg 03/14/24 19:00 03/14/24 18:56 Enoxaparin 30 Mg/0.3 Ml Syringe SUBCUT 30 mg Q24H JAMIE Administration Gabapentin 100 mg 03/14/24 21:00 03/14/24 19:52 Gabapentin 100 Mg Capsule PO Not Given TID JAMIE Fluconazole 200 mg in 100 mls @ 100 mls/hr 03/14/24 17:15 03/14/24 18:43 Diflucan Premix IV Infused Q24H JAMIE Infusion Insulin Human Lispro 0 unit 03/14/24 18:00 03/15/24 07:56 Insulin Lispro 100 Unit/1 Ml SUBCUT Not Given WM&BEDTIME JAMIE Protocol Meropenem 500 mg 03/14/24 20:00 03/14/24 19:49 Meropenem 500 Mg Sdv IVP 500 mg Q12H JAMIE Administration Protocol Nystatin 1 applic 03/14/24 21:00 03/14/24 19:51 Nystatin Powder 15 Gm Btl TOPICAL 1 applic TID JAMIE Administration Pantoprazole Sodium 40 mg 03/14/24 16:15 03/14/24 17:29 Pantoprazole 40 Mg Sdv IVP 40 mg Q24H JAMIE Administration Ropinirole HCl 0.5 mg 03/14/24 18:00 03/14/24 17:30 Ropinirole 0.25 Mg Tablet PO Not Given QPM JAMIE PFSH Acute PFSH: Medical History (Updated 03/15/24 @ 11:37 by Rubia March MD) End stage renal disease on dialysis Insulin dependent type 2 diabetes mellitus History of infection due to ESBL Escherichia coli Urinary tract infection Metabolic encephalopathy Sacral ulcer Cystitis Cellulitis Encephalopathy Akathisia PAPO (obstructive sleep apnea) UTI (urinary tract infection) Abdominal wall cellulitis Seropositive rheumatoid arthritis JENNIFER positive Sacral decubitus ulcer, stage III Cellulitis Cystitis Elevated troponin Hyperkalemia Hyponatremia Sacral decubitus ulcer Acute encephalopathy ESRD (end stage renal disease) Fracture of greater tuberosity of left humerus Fracture of humeral head, left, closed Stage III pressure ulcer of sacral region Decubitus ulcer of sacral region, unstageable Failure to thrive Weakness Toe fracture Contusion of right foot ESRD (end stage renal disease) Rash Left foot pain Long-term insulin use Diabetes type 2, uncontrolled Appetite loss MCI (mild cognitive impairment) Hypothyroidism COVID-19 Hypertension Anxiety ESRD (end stage renal disease) Diabetes Hyperlipidemia Chronic back pain De Quervain's tenosynovitis Surgical History Status post colonoscopy S/P dialysis catheter insertion Removed 07/14/20 S/P arteriovenous (AV) fistula creation History of temporal artery biopsy H/O dilation and curettage H/O section Hx of cholecystectomy History of appendectomy History of carpal tunnel repair H/O neck surgery fusion Family History Father Bleeding disorder Other Diabetes Heart disease Hyperlipidemia Hypertension Kidney problem Migraines Stroke Denies family history of Anesthesia complication Social History Smoking and tobacco/nicotine status: never used tobacco/nicotine Second hand smoke exposure: No Alcohol intake: never Substance/Drug Use: never Adopted: No Caregiver/support person: Yes Lives independently: Yes Household members: family Housing: House Marital status: Single Highest education level completed: High School Graduate service: No Current occupational status: disabled Current occupational exposures/hazards: No Pets and animals: Yes Pets & animals: dog(s) Sexually active: No Do you think of yourself as: Straight/Heterosexual Current gender identity: Female Sabina/Evangelical: Gnosticist Special sabina needs: No Agree to transfusion: No Vitals/I&O/Wt Last Vital Signs Temp 98.8 F 03/15/24 09:42 Pulse 98 03/15/24 09:42 Resp 16 03/15/24 09:42 BP 119/60 03/15/24 09:42 Pulse Ox 95 03/15/24 08:01 O2 Del Method Nasal Cannula 03/15/24 08:01 O2 Flow Rate 1 03/15/24 04:00 03/14/24 03/15/24 03/15/24 22:59 06:59 14:59 Intake Total 600 / 600 120 / 720 240 / 240 Balance 600 / 600 120 / 720 240 / 240 Weight last 48 hrs Weight 93.758 kg Weight 90.01 kg Physical Exam Narrative: Getting hemodialysis, no distress S1-S2 regular rate rhythm per report Lungs clear per report, no pedal edema, patient confused Data 03/15/24 10:25 03/15/24 10:25 Micro: Microbiology 03/14/24 16:51 Blood Culture - Preliminary Blood SPECIMEN COLLECTED 03/14/24 16:46 Blood Culture - Preliminary Blood SPECIMEN COLLECTED A&P Assessment and plan (1) End stage renal disease on dialysis: Plan 1. End-stage renal disease: On TTS schedule, plan for HD today and ultrafiltration as tolerated 2. Abdominal wall cellulitis: Worsening, antibiotics broadened to IV vancomycin and meropenem and IV Diflucan for possible fungal infection, cultures pending 3. History of CHF 4. Anemia: Will order MAX 5. History of hypertension, resumed home meds 6. Hyponatremia: Mild, should improve after HD 's 7. Hypokalemia,, reevaluate after HD. Patient evaluated using audiovisual cart. Time spent 40 minutes. Consult Attestations Medical Necessity Statement: Per medicine team Coding Level of Care Code Acute Code for Chg Fwd Diagnoses End stage renal disease on dialysis N18.6; Z99.2
[2024-03-15 11:35] LABS: Glucose Point of Care 116 mg/dL (70-110)
[2024-03-15] MEDS: EPOETIN ALFA-EPBX 10,000 UNIT/ML SDV (ESRD) 10000 UNIT SUBCUT (12:12)
--- NOTE | 2024-03-15 12:47 | P.PN_ITS ---
Subjective 2 Subjective: Patient was seen this morning, she is in dialysis, she is alert to person, to place, not to time she follows all commands, she complains of pain and irritation around her pannus location, no fevers overnight, no chills, Vitals/I&O/Wt Last Vital Signs Temp 98.0 F 03/15/24 11:55 Pulse 103 H 03/15/24 11:55 Resp 18 03/15/24 11:55 BP 128/61 03/15/24 11:55 Pulse Ox 92 03/15/24 11:55 O2 Del Method Nasal Cannula 03/15/24 11:55 O2 Flow Rate 1 03/15/24 04:00 03/14/24 03/15/24 03/15/24 22:59 06:59 14:59 Intake Total 600 / 600 120 / 720 240 / 240 Balance 600 / 600 120 / 720 240 / 240 Weight last 48 hrs Weight 93.758 kg Weight 90.01 kg Physical Exam 2 Const: COMMON NORMALS: no acute distress ORIENTATION/CONSCIOUSNESS: Yes awake, Yes oriented to person and Yes oriented to place; not oriented to time Resp: COMMON NORMALS: normal respiratory effort, No retractions, No use of accessory muscles and clear to auscultation bilaterally AUSCULTATION: clear to auscultation bilaterally Cardio: COMMON NORMALS: regular rate, regular rhythm, S1 normal heart sound present and S2 normal heart sound present RATE: regular rate RHYTHM: r egular rhythm HEART SOUNDS: S1 normal heart sound present and S2 normal heart sound present GI: COMMON NORMALS: Normal to inspection, nondistended, normoactive bowel sounds present and non-tender Extremity: COMMON NORMALS: no pedal edema Neuro: SENSORIUM/ORIENTATION: Yes oriented to person, Yes oriented to place and No oriented to time Psych: COMMON NORMALS: mental status grossly normal Skin: NARRATIVE SKIN EXAM: Pannus from iliac crest iliac crest, erythema, swelling, tenderness, mucopurulent drainage with open sores largest measuring 1 x 1 cm Data 03/15/24 10:25 03/15/24 10:25 Micro: Microbiology 03/14/24 16:51 Blood Culture - Preliminary Blood SPECIMEN COLLECTED 03/14/24 16:46 Blood Culture - Preliminary Blood SPECIMEN COLLECTED A&P Assessment and plan (1) Altered mental status: (2) Abdominal wall cellulitis: (3) T2DM (type 2 diabetes mellitus): Qualifiers: Diabetes mellitus longterm insulin use: without longterm use Diabetes mellitus complication status: with circulatory complication Diabetes mellitus complication detail: with other circulatory complications Qualified Code(s): E 11.59 - Type 2 diabetes mellitus with other circulatory complications (4) Hyperlipidemia: (5) Dyslipidemia: (6) Benign essential HTN: Plan Altered mental status, metabolic and toxic encephalopathy -Etiology resolving -Blood sugar reasonable -Has a history of ESBL E. coli UTI -She has global encephalopathy, I cannot discern a facial droop no slurring of words, no focal weakness that I could discern but it is hard to do neurologic testing given her global encephalopathy -Will do a CT of her head -Urine cultures -Blood cultures -Urine toxicology screen -Start vancomycin -Start meropenem Abdominal wall cellulitis, -Vancomycin -Meropenem -Keep area clean and dry, continue dry dressing changes -Nystatin powder -Has features of candidiasis skin infection, start IV Diflucan, topical nystatin, keep area clean and dry End-stage renal disease on dialysis, consult nephrology for dialysis, dialysis days Tuesday Acute on chronic anemia Type 2 diabetes mellitus, start low-dose sliding scale History of CHF, not in exacerbation, monitor Fluid overload, receiving dialysis today Full code Lovenox for DVT prophylaxis Attestations 2 Medical Necessity Statement*: Patient requires hospitalization for abdominal wall cellulitis Diagnoses Altered mental status R41.82 Abdominal wall cellulitis L03.311 Type 2 diabetes mellitus with other circulatory complication, without long-term current use of insulin E11.59 Diabetes mellitus longterm insulin use: without longterm use Diabetes mellitus complication status: with circulatory complication Diabetes mellitus complication detail: with other circulatory complications Hyperlipidemia E78.5 Dyslipidemia E78.5 Benign essential HTN I10
[2024-03-15] MEDS: morphine 4 mg/mL SDV 1 mL 2 MG IVP (13:03)
[2024-03-15] MEDS: metoprolol tartrate 50 mg Tablet PO (13:05)
[2024-03-15] MEDS: b-complex-vitamin c Tablet 1 EACH PO (13:05)
[2024-03-15] MEDS: gabapentin 100 mg Capsule PO ×2 (13:05→21:22)
[2024-03-15] MEDS: levothyroxine 50 mcg Tablet PO (13:05)
[2024-03-15] MEDS: amlodipine 5 mg Tablet PO (13:05)
[2024-03-15] MEDS: clopidogrel 75 mg Tablet PO (13:05)
[2024-03-15] MEDS: escitalopram 10 mg Tablet 20 MG PO (13:05)
[2024-03-15] MEDS: carbidopa-levodopa 25-100mg Tablet 1 EACH PO (13:05)
[2024-03-15] MEDS: cyclobenzaprine 10 mg Tablet PO (13:05)
[2024-03-15] MEDS: meropenem 500 mg SDV IVP (13:06)
[2024-03-15] MEDS: nystatin powder 15 gm Btl 1 APPLIC TOPICAL ×2 (13:07→22:21)
[2024-03-15] MEDS: ropinirole 0.25 mg Tablet 0.5 MG PO (17:27)
[2024-03-15] MEDS: enoxaparin 30 mg/0.3 mL Syringe SUBCUT (17:27)
[2024-03-15] MEDS: insulin lispro 100 unit/1 mL SUBCUT ×2 (17:28→22:16)
[2024-03-15] MEDS: fluconazole premix 200 MG/100 ML PREMIX 100 MG IV (17:28)
[2024-03-15] MEDS: pantoprazole 40 mg SDV IVP (17:28)
[2024-03-15] MEDS: atorvastatin 40 mg Tablet 80 MG PO (21:21)
[2024-03-15 21:47] LABS: Glucose Point of Care 200 mg/dL (70-110)
[2024-03-16] VITALS (8 sets, daily range): BP systolic 88–108; BP diastolic 55–67; PULSE 79–93; RESP 16–24; TEMP 36.6–36.9; O2SAT 91–98
[2024-03-16] MEDS: meropenem 500 mg SDV IVP ×2 (00:30→18:03)
[2024-03-16] MEDS: morphine 4 mg/mL SDV 1 mL 2 MG IVP (00:31)
[2024-03-16 05:17] LABS: Basophils % 0.1 %; Hematocrit 30.1 % (36-47); Lymphocytes # 0.5 10^3/uL (0.8-4.8); Lymphocytes % 5.8 %; Mean Corpuscular HGB Conc 28.9 g/dL (30-55); Mean Corpuscular Hemoglobin 29.2 pg (27-33); Mean Platelet Volume 10.4 fL (7.4-10.4); Monocytes # 0.8 10^3/uL (0.2-0.9); Monocytes % 9.4 %; Neutrophils % 84.2 %; Nucleated Red Blood Cells % 0 %; Platelet Count 256 10^3/cmm (157-399); Red Blood Count 2.98 10^6/uL (3.85-5.65); Red Cell Distribution Width 17.6 % (12.1-15.1); White Blood Count 8.31 10^3/uL (3.29-11.43)
[2024-03-16 05:37] LABS: C Reactive Protein 200.5 mg/L (0.0-4.9)
[2024-03-16 06:26] LABS: Anion Gap 18.6 (5-19); Blood Urea Nitrogen 14 mg/dL (6-20); Carbon Dioxide 23 mmol/L (22-29); Chloride 94 mmol/L (98-107); Creatinine Clr Calc Pharmacy 22.6491; Glucose 50 mg/dL (65-115); Osmolality Calculated 272 mOsm/kg (285-295); Potassium 3.6 mmol/L (3.5-5.1); Sodium 132 mmol/L (136-145)
--- NOTE | 2024-03-16 06:33 | PM.PN ---
Subjective Subjective: Patient was seen this morning, she is alert to person, not to place, time she easily falls back asleep, no acute events overnight, nursing staff advised me that she was able to take her medications this morning, pupils equal round reactive to light, she does withdraw from pain, blood pressures have been soft throughout the night, no fevers, Vitals/I&O/Wt Last Vital Signs Temp 98.3 F 03/16/24 04:00 Pulse 83 03/16/24 04:00 Resp 19 H 03/16/24 04:00 BP 88/55 03/16/24 04:00 Pulse Ox 95 03/16/24 04:00 O2 Del Method Nasal Cannula 03/16/24 04:00 O2 Flow Rate 2 03/15/24 20:00 03/15/24 03/15/24 03/16/24 14:59 22:59 06:59 Intake Total 740 / 740 220 / 960 Output Total 3000 / 3000 Balance -2260 / -2260 220 / -2040 Weight last 48 hrs Weight 91.626 kg Weight 90 kg Weight 93.758 kg Weight 90.01 kg Physical Exam Const: COMMON NORMALS: no acute distress ORIENTATION/CONSCIOUSNESS: Yes awake and Yes oriented to person; not oriented to place, not oriented to time and not confused Eye: COMMON NORMALS: Equal, round and reactive pupils present PUPIL: Yes Equal, round and reactive pupils present Resp: COMMON NORMALS: normal respiratory effort, No retractions, No use of accessory muscles and clear to auscultation bilaterally AUSCULTATION: clear to auscultation bilaterally Cardio: COMMON NORMALS: regular rate, regular rhythm, S1 normal heart sound present and S2 normal heart sound present RATE: regular rate RHYTHM: regular rhythm HEART SOUNDS: S1 normal heart sound present and S2 normal heart sound present GI: COMMON NORMALS: Normal to inspection, nondistended, normoactive bowel sounds present and non-tender Extremity: COMMON NORMALS: no pedal edema Neuro: SENSORIUM/ORIENTATION: Yes oriented to person, No oriented to place and No oriented to time Data 03/16/24 04:40 03/16/24 04:40 Micro: Microbiology 03/14/24 16:51 Blood Culture - Preliminary Blood NEGATIVE TO DATE 03/14/24 16:46 Blood Culture - Preliminary Blood NEGATIVE TO DATE A&P Assessment and plan (1) Altered mental status: (2) Abdominal wall cellulitis: (3) T2DM (type 2 diabetes mellitus): Qualifiers: Diabetes mellitus senior living insulin use: without senior living use Diabetes mellitus complication status: with circulatory complication Diabetes mellitus complication detail: with other circulatory complications Qualified Code(s): E11.59 - Type 2 diabetes mellitus with other circulatory complications (4) Hyperlipidemia: (5) Dyslipidemia: (6) Benign essential HTN: Plan Altered mental status, metabolic and toxic encephalopathy -Etiology resolving -Blood sugar reasonable -Has a history of ESBL E. coli UTI -She has global encephalopathy, I cannot discern a facial droop no slurring of words, no focal weakness that I could discern but it is hard to do neurologic testing given her global encephalopathy -Will do a CT of her head -Urine cultures -Blood cultures -Urine toxicology screen -Start vancomycin -Start meropenem Soft blood pressures ? Lactic acid # Likely secondary to dialysis # Hold p.o. blood pressure medications Abdominal wall cellulitis, -Vancomycin -Meropenem -Keep area clean and dry, continue dry dressing changes -Nystatin powder -Has features of candidiasis skin infection, start IV Diflucan, topical nystatin, keep area clean and dry End-stage renal disease on dialysis, consult nephrology for dialysis, dialysis days Tuesday Acute on chronic anemia Type 2 diabetes mellitus, start low-dose sliding scale History of CHF, not in exacerbation, monitor Fluid overload, receiving dialysis today Full code Lovenox for DVT prophylaxis Continues to have altered mental status this morning, lactic acid, ABG, placed in Trendelenburg, low for permissive hypertension, hold p.o. blood pressure medications, awaiting head CT results, continue IV antibiotics for cellulitis, continue IV Diflucan for candidiasis skin infection Attestations Medical Necessity Statement*: Patient requires hospitalization for altered mental status, abdominal wall cellulitis, possible fungal infection, soft blood pressures, altered mental status Diagnoses Altered mental status R41.82 Abdominal wall cellulitis L03.311 Type 2 diabetes mellitus with other circulatory complication, without long-term current use of insulin E11.59 Diabetes mellitus senior living insulin use: without termite control service representative use Diabetes mellitus complication status: with circulatory complication Diabetes mellitus complication detail: with other circulatory complications Hyperlipidemia E78.5 Dyslipidemia E78.5 Benign essential HTN I10
[2024-03-16 06:34] LABS: Procalcitonin 0.92 ng/mL (0-0.5)
[2024-03-16] MEDS: dextrose 10% 125 ML 750 ML IV (06:38)
--- NOTE | 2024-03-16 06:45 | CTR_ITS ---
PROCEDURE INFORMATION: Exam: CT Pelvis Without Contrast, Skeleton Exam date and time: 03/17/2024 4:37 PM Age: 58 years old Clinical indication: Other: Sacral abscess? TECHNIQUE: Imaging protocol: Computed tomography of the pelvis without contrast. Exam focused on the skeleton. Radiation optimization: All CT scans at this facility use at least one of these dose optimization techniques: automated exposure control; mA and/or kV adjustment per patient size (includes targeted exams where dose is matched to clinical indication); or iterative reconstruction. COMPARISON: CT abdomen pelvis wo con [id number] 02/10/2024 12:47 AM RADIATION DOSE METRICS: Total DLP (mGy-cm): 652.88 FINDINGS: Vasculature: Diffuse aortoiliac calcifications. Reproductive: Diffuse uterine calcifications are similar to prior. Bones/joints: Unremarkable. No acute fracture. No dislocation. Soft tissues: Diffuse body wall edema. Areas of skin thickening and induration within the upper thighs as well as the wall of the pelvis. Skin thickening and focal induration overlying the lower sacrum and coccyx. However, there is no loculated fluid collection to suggest abscess. No soft tissue gas is seen. CT/CT pelvis wo con [id number] IMPRESSION: 1. Skin thickening and induration overlying the lower sacrum and coccyx. However, no definite abscess is seen. 2. Similar body wall edema with areas of induration involving the pelvic wall and bilateral thighs. As before, findings may represent multifocal cellulitis.
[2024-03-16 06:46] LABS: Glucose Point of Care 66 mg/dL (70-110)
[2024-03-16 06:53] LABS: ABG PCO2 47.7 mmHg (35-45); ABG PH Result 7.42 (7.35-7.45); Arterial Blood Gas Hematocrit 25.9 % (37-47); Base Excess ABG 5.4 mmol/L (-2.0-2.0); Blood Gas Allen Test Pos; Blood Gas Sample Site Brachial, left; Blood Gas Sample Type Arterial; HCO3 ABG 30.6 mmol/L (22-26); Oxygen Device NC; PO2 ABG 95.6 mmHg (80.0-100.0)
[2024-03-16] MEDS: glucagon 1 mg/mL KIT 1 mL IM (06:56)
[2024-03-16 08:35] LABS: Lactic Sepsis W/Reflex 1.3 mmol/L (0.5-2.2)
[2024-03-16] MEDS: gabapentin 100 mg Capsule PO ×2 (10:34→18:02)
[2024-03-16] MEDS: escitalopram 10 mg Tablet 20 MG PO (10:35)
[2024-03-16] MEDS: clopidogrel 75 mg Tablet PO (10:35)
[2024-03-16] MEDS: cyclobenzaprine 10 mg Tablet PO (10:35)
[2024-03-16] MEDS: b-complex-vitamin c Tablet 1 EACH PO (10:35)
[2024-03-16] MEDS: carbidopa-levodopa 25-100mg Tablet 1 EACH PO (10:35)
[2024-03-16] MEDS: nystatin powder 15 gm Btl 1 APPLIC TOPICAL ×3 (10:35→23:52)
[2024-03-16] MEDS: levothyroxine 50 mcg Tablet PO (10:35)
[2024-03-16 12:05] LABS: Vancomycin Random 13.2 ug/mL (20.0-40.0)
--- NOTE | 2024-03-16 12:17 | P.PN_ITS ---
Subjective 2 Subjective: Lethargic Medications: Reviewed: Yes Vitals/I&O/Wt Last Vital Signs Temp 98.0 F 03/16/24 11:58 Pulse 93 03/16/24 11:58 Resp 17 03/16/24 11:58 BP 108/65 03/16/24 11:58 Pulse Ox 93 03/16/24 11:58 O2 Del Method Nasal Cannula 03/16/24 11:58 O2 Flow Rate 0.5 03/16/24 07:32 03/15/24 03/16/24 03/16/24 22:59 06:59 14:59 Intake Total 220 / 960 125 / 125 Balance 220 / -2040 125 / 125 Weight last 48 hrs Weight 91.626 kg Weight 90 kg Weight 93.758 kg Weight 90.01 kg Physical Exam 2 Narrative: lethargic no distress sS1S2 RRR per report Lungs clear per report no edema Data 03/16/24 04:40 03/16/24 04:40 Micro: Microbiology 03/14/24 16:51 Blood Culture - Preliminary Blood NEGATIVE TO DATE 03/14/24 16:46 Blood Culture - Preliminary Blood NEGATIVE TO DATE A&P Assessment and plan (1) End stage renal disease on dialysis: Plan 1. End-stage renal disease: On TTS schedule, 2. Abdominal wall cellulitis: Worsening, antibiotics broadened to IV vancomycin and meropenem and IV Diflucan for possible fungal infection, cultures pending 3. History of CHF 4. Anemia: Will order MAX 5. History of hypertension, resumed home meds 6. Hyponatremia: Mild, should improve after HD 7. AMS , luc metabolic encephalopathy , work up in process Patient evaluated using audiovisual cart. Time spent 40 minutes. Attestations 2 Medical Necessity Statement*: per mandeep Coding Level of Care Code Acute Code for Chg Fwd Diagnoses End stage renal disease on dialysis N18.6; Z99.2
[2024-03-16 12:43] LABS: Glucose Point of Care 152 mg/dL (70-110)
[2024-03-16 12:43] LABS: Glucose Point of Care 45 mg/dL (70-110)
[2024-03-16 12:43] LABS: Glucose Point of Care 103 mg/dL (70-110)
[2024-03-16 12:43] LABS: Glucose Point of Care 74 mg/dL (70-110)
[2024-03-16 13:14] LABS: Glucose Point of Care 95 mg/dL (70-110)
[2024-03-16 16:52] LABS: Glucose Point of Care 144 mg/dL (70-110)
[2024-03-16] MEDS: ropinirole 0.25 mg Tablet 0.5 MG PO (18:02)
[2024-03-16] MEDS: pantoprazole 40 mg SDV IVP (18:02)
[2024-03-16] MEDS: enoxaparin 30 mg/0.3 mL Syringe SUBCUT (18:03)
[2024-03-16] MEDS: VANCOMYCIN ADD-Vantage 1,000 MG in 0.9% NaCl ADD-Vantage 250 ML 250 MG IV (18:10)
[2024-03-16 21:08] LABS: Glucose Point of Care 122 mg/dL (70-110)
[2024-03-16] MEDS: fluconazole premix 100 MG in empty flexible container 1 EACH 50 MG IV (21:31)
[2024-03-17] VITALS (8 sets, daily range): BP systolic 107–129; BP diastolic 48–92; PULSE 68–108; RESP 15–18; TEMP 36.4–36.8; O2SAT 90–95
[2024-03-17] MEDS: meropenem 500 mg SDV IVP ×2 (02:51→15:31)
[2024-03-17 05:55] LABS: Basophils % 0.2 %; Hematocrit 26.3 % (36-47); Lymphocytes # 0.6 10^3/uL (0.8-4.8); Lymphocytes % 12.7 %; Mean Corpuscular HGB Conc 30.8 g/dL (30-55); Mean Corpuscular Hemoglobin 29.1 pg (27-33); Mean Corpuscular Volume 94.6 fl (85-98); Monocytes # 0.7 10^3/uL (0.2-0.9); Monocytes % 13.5 %; Neutrophils # 3.63 10^3/uL (1.8-7.7); Neutrophils % 73.2 %; Nucleated Red Blood Cells % 0 %; Platelet Count 227 10^3/cmm (157-399); Red Blood Count 2.78 10^6/uL (3.85-5.65); Red Cell Distribution Width 17.4 % (12.1-15.1); White Blood Count 4.96 10^3/uL (3.29-11.43)
[2024-03-17 06:14] LABS: Anion Gap 12.8 (5-19); Blood Urea Nitrogen 20 mg/dL (6-20); Calcium 8.7 mg/dL (8.5-10.5); Carbon Dioxide 27 mmol/L (22-29); Chloride 94 mmol/L (98-107); Creatinine Clr Calc Pharmacy 16.5951; Glomerular Filtration Rate 12.5 mL/min (90-130); Glucose 115 mg/dL (65-115); Osmolality Calculated 274 mOsm/kg (285-295); Potassium 3.8 mmol/L (3.5-5.1); Sodium 130 mmol/L (136-145)
[2024-03-17 06:15] LABS: Vancomycin Random 24.2 ug/mL (20.0-40.0)
[2024-03-17 06:22] LABS: Procalcitonin 1.84 ng/mL (0-0.5)
[2024-03-17 06:24] LABS: Glucose Point of Care 117 mg/dL (70-110)
--- NOTE | 2024-03-17 07:35 | P.PN_ITS ---
Subjective 2 Subjective: events noted Medications: Reviewed: Yes Vitals/I&O/Wt Last Vital Signs Temp 98.1 F 03/17/24 04:00 Pulse 92 03/17/24 04:00 Resp 17 03/17/24 04:00 BP 121/69 03/17/24 04:00 Pulse Ox 90 03/17/24 04:00 O2 Del Method Room Air 03/17/24 04:00 O2 Flow Rate 0.5 03/16/24 07:32 03/16/24 03/17/24 03/17/24 22:59 06:59 14:59 Intake Total 300 / 665 Balance 300 / 665 Weight last 48 hrs Weight 92.278 kg Weight 91.626 kg Weight 90 kg Physical Exam 2 Narrative: no distress S1S2 RRR per report Lungs clear per report No edema Data 03/22/24 05:33 03/22/24 05:33 A&P Assessment and plan (1) End stage renal disease on dialysis: Plan 1. End-stage renal disease: On TTS schedule, 2. Abdominal wall cellulitis: Worsening, antibiotics broadened to IV vancomycin and meropenem and IV Diflucan for possible fungal infection, cultures pending 3. History of CHF 4. Anemia: Will order MAX 5. History of hypertension, resumed home meds 6. Hyponatremia: Mild, should improve after HD 7. AMS , luc metabolic encephalopathy , work up in process Patient evaluated using audiovisual cart. Time spent 40 minutes. Attestations 2 Medical Necessity Statement*: per mediicne team Coding Level of Care Code Acute Code for Chg Fwd Diagnoses End stage renal disease on dialysis N18.6; Z99.2
[2024-03-17] MEDS: gabapentin 100 mg Capsule PO ×3 (08:27→20:23)
[2024-03-17] MEDS: carbidopa-levodopa 25-100mg Tablet 1 EACH PO (08:27)
[2024-03-17] MEDS: escitalopram 10 mg Tablet 20 MG PO (08:27)
[2024-03-17] MEDS: b-complex-vitamin c Tablet 1 EACH PO (08:27)
[2024-03-17] MEDS: levothyroxine 50 mcg Tablet PO (08:27)
[2024-03-17] MEDS: clopidogrel 75 mg Tablet PO (08:27)
[2024-03-17] MEDS: cyclobenzaprine 10 mg Tablet PO ×2 (08:27→17:12)
[2024-03-17] MEDS: nystatin powder 15 gm Btl 1 APPLIC TOPICAL ×3 (08:28→20:25)
--- NOTE | 2024-03-17 09:47 | PC.HD ---
Heparin 1000 units loading dose administered via venous needle of [facility] at 0935 per manager ambulatory's orders. Patient c/o nausea; primary RN called to request Zofran.
[2024-03-17] MEDS: ondansetron 2 mg/ML SDV 2 mL 4 MG IVP (10:26)
[2024-03-17 10:32] LABS: Glucose Point of Care 129 mg/dL (70-110)
--- NOTE | 2024-03-17 13:07 | PC.HD ---
Last 30 minutes of trx, patient c/o leg/foot cramps. UF rate reduced to 300. UF goal not met: Attempted 2500, removed 2271.
[2024-03-17] MEDS: pantoprazole 40 mg SDV IVP (15:31)
--- NOTE | 2024-03-17 15:59 | PM.PN ---
Subjective Subjective: Patient is alert and awake, currently sitting up in chair, self-feeding. Awaiting CT of the pelvis today. Hemoglobin stable at 8.1. Medications: Reviewed: Yes Vitals/I&O/Wt Last Vital Signs Temp 98.2 F 03/17/24 13:05 Pulse 97 03/17/24 13:05 Resp 16 03/17/24 13:05 BP 122/48 03/17/24 13:05 Pulse Ox 92 03/17/24 12:54 O2 Del Method Room Air 03/17/24 08:00 O2 Flow Rate 0.5 03/16/24 07:32 03/17/24 03/17/24 03/17/24 06:59 14:59 22:59 Intake Total 740 / 740 Output Total 2 / 2772 Balance -2031 / -2031 Weight last 48 hrs Weight 90.6 kg Weight 92.278 kg Weight 91.626 kg Physical Exam Narrative: General: No acute distress, AO x3 HEENT: PERRLA, pupils bilaterally equal and reactive, pallors not present Chest: Normal vesicular breath sounds, no added sounds, equal good air entry bilaterally CVS: S1-S2 regular, no murmurs, no tachycardia, no gallops, no rubs Abdomen: Soft, nontender, no organomegaly, bowel sounds present Neuro: No focal deficits, no facial deformity, AO x3, power 5/5 in all limbs Data 03/17/24 05:48 03/17/24 05:48 A&P Assessment and plan (1) Altered mental status: (2) Abdominal wall cellulitis: (3) T2DM (type 2 diabetes mellitus): Qualifiers: Diabetes mellitus detention insulin use: without terminal worker use Diabetes mellitus complication status: with circulatory complication Diabetes mellitus complication detail: with other circulatory complications Qualified Code(s): E11.59 - Type 2 diabetes mellitus with other circulatory complications (4) Hyperlipidemia: (5) Dyslipidemia: (6) Benign essential HTN: Plan Altered mental status, metabolic and toxic encephalopathy -Etiology resolving -Blood sugar reasonable -Has a history of ESBL E. coli UTI -She has global encephalopathy, I cannot discern a facial droop no slurring of words, no focal weakness that I could discern but it is hard to do neurologic testing given her global encephalopathy -Will do a CT of her head -Urine cultures -Blood cultures -Urine toxicology screen -Start vancomycin -Start meropenem Soft blood pressures ? Lactic acid # Likely secondary to dialysis # Hold p.o. blood pressure medications Abdominal wall cellulitis, -Vancomycin -Meropenem -Keep area clean and dry, continue dry dressing changes -Nystatin powder -Has features of candidiasis skin infection, start IV Diflucan, topical nystatin, keep area clean and dry End-stage renal disease on dialysis, consult nephrology for dialysis, dialysis days Tuesday Acute on chronic anemia Type 2 diabetes mellitus, start low-dose sliding scale History of CHF, not in exacerbation, monitor Fluid overload, receiving dialysis today Full code Lovenox for DVT prophylaxis Continues to have altered mental status this morning, lactic acid, ABG, placed in Trendelenburg, low for permissive hypertension, hold p.o. blood pressure medications, awaiting head CT results, continue IV antibiotics for cellulitis, continue IV Diflucan for candidiasis skin infection 03/17/2024. Mentation is better today. Patient is sitting up independently in the bed, self-feeding. States she feels better however is complaining of pain in the back. Awaiting CT of the pelvis today to assess for underlying sacral osteomyelitis. In the interim continue IV antibiotics, awaiting blood and urine cultures. Attestations Medical Necessity Statement*: Continued need of IV antibiotics while pending cultures, pending CT pelvis to assess for underlying osteo Coding Level of Care Code Acute Code for Chg Fwd Diagnoses Altered mental status R41.82 Abdominal wall cellulitis L03.311 Type 2 diabetes mellitus with other circulatory complication, without long-term current use of insulin E11.59 Diabetes mellitus detention insulin use: without terminal worker use Diabetes mellitus complication status: with circulatory complication Diabetes mellitus complication detail: with other circulatory complications Hyperlipidemia E78.5 Dyslipidemia E78.5 Benign essential HTN I10
[2024-03-17 16:58] LABS: Glucose Point of Care 166 mg/dL (70-110)
[2024-03-17] MEDS: insulin lispro 100 unit/1 mL SUBCUT ×2 (17:11→21:31)
[2024-03-17] MEDS: ropinirole 0.25 mg Tablet 0.5 MG PO (17:12)
[2024-03-17] MEDS: enoxaparin 30 mg/0.3 mL Syringe SUBCUT (17:12)
[2024-03-17] MEDS: VANCOMYCIN ADD-Vantage 1,000 MG in 0.9% NaCl ADD-Vantage 250 ML 250 MG IV (20:21)
[2024-03-17] MEDS: atorvastatin 40 mg Tablet 80 MG PO (20:23)
[2024-03-17 20:24] LABS: Glucose Point of Care 181 mg/dL (70-110)
[2024-03-17] MEDS: fluconazole premix 100 MG in empty flexible container 1 EACH 50 MG IV (21:29)
[2024-03-18] VITALS: BP 117/69; PULSE 94; RESP 19; TEMP 36.9; O2SAT 93
[2024-03-18] MEDS: meropenem 500 mg SDV IVP (03:25)
[2024-03-18 04:00] VITALS: BP 126/75; PULSE 94; RESP 15; TEMP 36.7; O2SAT 93
[2024-03-18 06:28] LABS: Glucose Point of Care 101 mg/dL (70-110)
[2024-03-18 08:15] LABS: Basophils % 0.2 %; Hematocrit 27.7 % (36-47); Lymphocytes # 0.7 10^3/uL (0.8-4.8); Mean Corpuscular HGB Conc 30.3 g/dL (30-55); Mean Corpuscular Hemoglobin 29.3 pg (27-33); Mean Corpuscular Volume 96.5 fl (85-98); Monocytes # 0.7 10^3/uL (0.2-0.9); Monocytes % 14.5 %; Neutrophils # 3.65 10^3/uL (1.8-7.7); Neutrophils % 71.7 %; Nucleated Red Blood Cells % 0 %; Platelet Count 243 10^3/cmm (157-399); Red Blood Count 2.87 10^6/uL (3.85-5.65); Red Cell Distribution Width 17.5 % (12.1-15.1); White Blood Count 5.09 10^3/uL (3.29-11.43)
[2024-03-18 08:23] VITALS: BP 113/71; PULSE 93; RESP 16; TEMP 36.5; O2SAT 92
[2024-03-18 08:37] LABS: Blood Urea Nitrogen 15 mg/dL (6-20); Calcium 9.3 mg/dL (8.5-10.5); Carbon Dioxide 30 mmol/L (22-29); Chloride 96 mmol/L (98-107); Creatinine Clr Calc Pharmacy 22.8098; Glucose 106 mg/dL (65-115); Osmolality Calculated 277 mOsm/kg (285-295); Sodium 133 mmol/L (136-145)
[2024-03-18 08:40] LABS: Anion Gap 11.6 (5-19); Potassium 4.6 mmol/L (3.5-5.1)
[2024-03-18 08:41] LABS: Procalcitonin 1.48 ng/mL (0-0.5)
[2024-03-18] MEDS: cyclobenzaprine 10 mg Tablet PO ×2 (08:45→17:16)
[2024-03-18] MEDS: escitalopram 10 mg Tablet 20 MG PO (08:45)
[2024-03-18] MEDS: levothyroxine 50 mcg Tablet PO (08:45)
[2024-03-18] MEDS: clopidogrel 75 mg Tablet PO (08:45)
[2024-03-18] MEDS: gabapentin 100 mg Capsule PO ×3 (08:45→20:17)
[2024-03-18] MEDS: nystatin powder 15 gm Btl 1 APPLIC TOPICAL ×3 (08:45→20:17)
[2024-03-18] MEDS: carbidopa-levodopa 25-100mg Tablet 1 EACH PO (08:45)
[2024-03-18] MEDS: b-complex-vitamin c Tablet 1 EACH PO (08:45)
[2024-03-18 08:53] LABS: C Reactive Protein 186.9 mg/L (0.0-4.9)
--- NOTE | 2024-03-18 10:44 | P.PN_ITS ---
Subjective 2 Subjective: The patient was seen and examined. Patient speech is improving. Patient still has abdominal wall rash and swelling. The patient states she is eating and has no nausea or vomiting or diarrhea. Medications: Reviewed: Yes Medication Review Details: Current Medications Amlodipine Besylate (Amlodipine 5 Mg Tablet) 5 mg PO DAILY [facility] Last Admin: 03/15/24 13:05 Dose: 5 mg Atorvastatin Calcium (Atorvastatin 40 Mg Tablet) 80 mg PO BEDTIME [facility] Last Admin: 03/17/24 20:23 Dose: 80 mg Carbidopa/Levodopa (Carbidopa-Levodopa 25-100mg Tablet) 1 each PO DAILY [facility] Last Admin: 03/18/24 08:45 Dose: 1 each Clopidogrel Bisulfate (Clopidogrel 75 Mg Tablet) 75 mg PO DAILY [facility] Last Admin: 03/18/24 08:45 Dose: 75 mg Cyclobenzaprine HCl (Cyclobenzaprine 10 Mg Tablet) 10 mg PO Q8H PRN PRN Reason: MUSCLE SPASMS Last Admin: 03/18/24 08:45 Dose: 10 mg Enoxaparin Sodium (Enoxaparin 30 Mg/0.3 Ml Syringe) 30 mg SUBCUT Q24H [facility] Last Admin: 03/17/24 17:12 Dose: 30 mg Escitalopram Oxalate (Escitalopram 10 Mg Tablet) 20 mg PO DAILY [facility] Last Admin: 03/18/24 08:45 Dose: 20 mg Gabapentin (Gabapentin 100 Mg Capsule) 100 mg PO TID [facility] Last Admin: 03/18/24 08:45 Dose: 100 mg Glucagon (Glucagon 1 Mg/Ml Kit 1 Ml) 1 mg IM ONCE PRN; Protocol PRN Reason: Adult Acute Hypoglycemia Nursing Prot. Fluconazole 100 mg/ N/A 50 mls @ 50 mls/hr IV Q24H [facility] Last Infusion: 03/17/24 22:20 Dose: Infused Dextrose (D5w) 500 mls @ 0 mls/hr IV ONCE PRN; Protocol PRN Reason: Adult Acute Hypoglycemia Prot Dextrose (D10w) 125 mls @ 750 mls/hr IV PRN PRN; Protocol PRN Reason: Adult Acute Hypoglycemia Nursing Protocol Dextrose (D10w) 250 mls @ 1,000 mls/hr IV PRN PRN; Protocol PRN Reason: Adult Acute Hypoglycemia Nursing Protocol Sodium Chloride (Sodium Chloride 0.9%) 1,000 mls @ 0 mls/hr IV .Q0M PRN PRN Reason: hypotension or symptomatic Albumin Human (Albumin) 12.5 gm in 50 mls @ 60 mls/hr IV PRN PRN PRN Reason: Hypotension and/or symptomatic Insulin Human Lispro (Insulin Lispro 100 Unit/1 Ml) 0 unit SUBCUT WM&BEDTIME [facility]; Protocol Last Admin: 03/18/24 07:04 Dose: Not Given Levothyroxine Sodium (Levothyroxine 50 Mcg Tablet) 50 mcg PO DAILY [facility] Last Admin: 03/18/24 08:45 Dose: 50 mcg Meropenem (Meropenem 500 Mg Sdv) 500 mg IVP Q12H [facility]; Protocol Last Admin: 03/18/24 03:25 Dose: 500 mg Metoprolol Tartrate (Metoprolol Tartrate 50 Mg Tablet) 50 mg PO DAILY [facility] Last Admin: 03/15/24 13:05 Dose: 50 mg Morphine Sulfate (Morphine 4 Mg/Ml Sdv 1 Ml) 2 mg IVP Q4H PRN PRN Reason: SEVERE PAIN Last Admin: 03/16/24 00:31 Dose: 2 mg Multivitamins (L-Npgkfuu-Phcvdae C Tablet) 1 each PO DAILY [facility] Last Admin: 03/18/24 08:45 Dose: 1 each Naloxone HCl (Naloxone 0.4 Mg/Ml Sdv) 0.1 mg IVP Q2M PRN PRN Reason: OPIATERV Nystatin (Nystatin Powder 15 Gm Btl) 1 applic TOPICAL TID [facility] Last Admin: 03/18/24 08:45 Dose: 1 applic Ondansetron HCl (Ondansetron 2 Mg/Ml Sdv 2 Ml) 4 mg IVP Q8H PRN PRN Reason: vomiting, or N/V if npo Last Admin: 03/17/24 10:26 Dose: 4 mg Pantoprazole Sodium (Pantoprazole 40 Mg Sdv) 40 mg IVP Q24H [facility] Last Admin: 03/17/24 15:31 Dose: 40 mg Ropinirole HCl (Ropinirole 0.25 Mg Tablet) 0.5 mg PO QPM [facility] Last Admin: 03/17/24 17:12 Dose: 0.5 mg Vancomycin HCl (Vancomycin 1,000 Mg Sdv (Pharmacy Mix)) 0 mg XX PRN PRN PRN Reason: Pharmacy to Dose Vitals/I&O/Wt Last Vital Signs Temp 97.7 F 03/18/24 08:23 Pulse 93 03/18/24 08:23 Resp 16 03/18/24 08:23 BP 113/71 03/18/24 08:23 Pulse Ox 92 03/18/24 08:23 O2 Del Method Room Air 03/18/24 08:23 O2 Flow Rate 0.5 03/16/24 07:32 03/17/24 03/18/24 03/18/24 22:59 06:59 14:59 Intake Total 780 / 1520 120 / 1640 480 / 480 Balance 780 / -1252 120 / -1132 480 / 480 Weight last 48 hrs Weight 92.76 kg Weight 90.6 kg Weight 92.278 kg Physical Exam 2 Narrative: Vital signs noted. Blood pressure acceptable, afebrile Obese in bed comfortable HEENT normocephalic atraumatic. Neck is supple. Lungs have good air movement. Heart regular positive S1-S2. Abdomen is soft superficial tenderness to touch by cellulitis. Positive bowel sounds. Extremities 1+ edema Neuro she is talking and following commands and interactive. Data 03/18/24 06:00 03/18/24 06:00 A&P Assessment and plan (1) End stage renal disease on dialysis: 58-year-old lady, obesity, type 2 diabetes, hyperlipidemia, hypertension. 1. Abdominal wall cellulitis renal dose antibiotics as per Dr. Andrews 2. ESRD dialysis Tuesday and Tuesday. 3. Monitor neuroexam. 4. Blood pressure on low side. 5. Anemia check iron studies ferritin in August was greater than 19,000 6. Hyponatremia stable Calcium 9.3 is elevated given albumin of 2.6. Please note that patient had elevated PTH and PTH RP in the past will repeat PTH RP. Please ensure full cancer workup has been done. With altered mental status consider decreasing gabapentin Medications reviewed. Patient was seen and examined with the aid of A/V equipment and the nurse examining the patient. Plan See above. Attestations 2 Medical Necessity Statement*: Per medicine abdominal wall cellulitis altered mental status ESRD. Time Spent in Patient Care: 16 - 35 minutes (>than 50% of time sp ent in counselling and/or direct pt care on unit) . Coding Level of Care Code Acute Code for Chg Fwd Diagnoses End stage renal disease on dialysis N18.6; Z99.2
[2024-03-18 11:17] LABS: Uric Acid 3.1 mg/dL (2.4-5.7)
[2024-03-18 11:41] LABS: Glucose Point of Care 129 mg/dL (70-110)
[2024-03-18 12:26] VITALS: BP 124/78; PULSE 96; RESP 18; TEMP 36.4; O2SAT 94
--- NOTE | 2024-03-18 14:02 | P.PN_ITS ---
Subjective 2 Subjective: No new complaints today. Patient is awake alert able to carry on a full conversation. Medications: Reviewed: Yes Medication Review Details: Current Medications Amlodipine Besylate (Amlodipine 5 Mg Tablet) 5 mg PO DAILY [facility] Last Admin: 03/15/24 13:05 Dose: 5 mg Atorvastatin Calcium (Atorvastatin 40 Mg Tablet) 80 mg PO BEDTIME [facility] Last Admin: 03/17/24 20:23 Dose: 80 mg Carbidopa/Levodopa (Carbidopa-Levodopa 25-100mg Tablet) 1 each PO DAILY [facility] Last Admin: 03/18/24 08:45 Dose: 1 each Clopidogrel Bisulfate (Clopidogrel 75 Mg Tablet) 75 mg PO DAILY [facility] Last Admin: 03/18/24 08:45 Dose: 75 mg Cyclobenzaprine HCl (Cyclobenzaprine 10 Mg Tablet) 10 mg PO Q8H PRN PRN Reason: MUSCLE SPASMS Last Admin: 03/18/24 08:45 Dose: 10 mg Enoxaparin Sodium (Enoxaparin 30 Mg/0.3 Ml Syringe) 30 mg SUBCUT Q24H [facility] Last Admin: 03/17/24 17:12 Dose: 30 mg Escitalopram Oxalate (Escitalopram 10 Mg Tablet) 20 mg PO DAILY [facility] Last Admin: 03/18/24 08:45 Dose: 20 mg Gabapentin (Gabapentin 100 Mg Capsule) 100 mg PO TID [facility] Last Admin: 03/18/24 08:45 Dose: 100 mg Glucagon (Glucagon 1 Mg/Ml Kit 1 Ml) 1 mg IM ONCE PRN; Protocol PRN Reason: Adult Acute Hypoglycemia Nursing Prot. Fluconazole 100 mg/ N/A 50 mls @ 50 mls/hr IV Q24H [facility] Last Infusion: 03/17/24 22:20 Dose: Infused Dextrose (D5w) 500 mls @ 0 mls/hr IV ONCE PRN; Protocol PRN Reason: Adult Acute Hypoglycemia Prot Dextrose (D10w) 125 mls @ 750 mls/hr IV PRN PRN; Protocol PRN Reason: Adult Acute Hypoglycemia Nursing Protocol Dextrose (D10w) 250 mls @ 1,000 mls/hr IV PRN PRN; Protocol PRN Reason: Adult Acute Hypoglycemia Nursing Protocol Sodium Chloride (Sodium Chloride 0.9%) 1,000 mls @ 0 mls/hr IV .Q0M PRN PRN Reason: hypotension or symptomatic Albumin Human (Albumin) 12.5 gm in 50 mls @ 60 mls/hr IV PRN PRN PRN Reason: Hypotension and/or symptomatic Insulin Human Lispro (Insulin Lispro 100 Unit/1 Ml) 0 unit SUBCUT WM&BEDTIME [facility]; Protocol Last Admin: 03/18/24 07:04 Dose: Not Given Levothyroxine Sodium (Levothyroxine 50 Mcg Tablet) 50 mcg PO DAILY [facility] Last Admin: 03/18/24 08:45 Dose: 50 mcg Meropenem (Meropenem 500 Mg Sdv) 500 mg IVP Q12H [facility]; Protocol Last Admin: 03/18/24 03:25 Dose: 500 mg Metoprolol Tartrate (Metoprolol Tartrate 50 Mg Tablet) 50 mg PO DAILY [facility] Last Admin: 03/15/24 13:05 Dose: 50 mg Morphine Sulfate (Morphine 4 Mg/Ml Sdv 1 Ml) 2 mg IVP Q4H PRN PRN Reason: SEVERE PAIN Last Admin: 03/16/24 00:31 Dose: 2 mg Multivitamins (V-Mdumdhi-Vmozahi C Tablet) 1 each PO DAILY [facility] Last Admin: 03/18/24 08:45 Dose: 1 each Naloxone HCl (Naloxone 0.4 Mg/Ml Sdv) 0.1 mg IVP Q2M PRN PRN Reason: OPIATERV Nystatin (Nystatin Powder 15 Gm Btl) 1 applic TOPICAL TID [facility] Last Admin: 03/18/24 08:45 Dose: 1 applic Ondansetron HCl (Ondansetron 2 Mg/Ml Sdv 2 Ml) 4 mg IVP Q8H PRN PRN Reason: vomiting, or N/V if npo Last Admin: 03/17/24 10:26 Dose: 4 mg Pantoprazole Sodium (Pantoprazole 40 Mg Sdv) 40 mg IVP Q24H [facility] Last Admin: 03/17/24 15:31 Dose: 40 mg Ropinirole HCl (Ropinirole 0.25 Mg Tablet) 0.5 mg PO QPM [facility] Last Admin: 03/17/24 17:12 Dose: 0.5 mg Vancomycin HCl (Vancomycin 1,000 Mg Sdv (Pharmacy Mix)) 0 mg XX PRN PRN PRN Reason: Pharmacy to Dose Vitals/I&O/Wt Last Vital Signs Temp 97.6 F 03/18/24 12:26 Pulse 96 03/18/24 12:26 Resp 18 03/18/24 12:26 BP 124/78 03/18/24 12:26 Pulse Ox 94 03/18/24 12:26 O2 Del Method Room Air 03/18/24 12:26 O2 Flow Rate 0.5 03/16/24 07:32 03/17/24 03/18/24 03/18/24 22:59 06:59 14:59 Intake Total 780 / 1520 120 / 1640 960 / 960 Balance 780 / -1252 120 / -1132 960 / 960 Weight last 48 hrs Weight 92.76 kg Weight 90.6 kg Weight 92.278 kg Physical Exam 2 Narrative: General: No acute distress, AO x3 HEENT: PERRLA, pupils bilaterally equal and reactive, pallors not present Chest: Normal vesicular breath sounds, no added sounds, equal good air entry bilaterally CVS: S1-S2 regular, no murmurs, no tachycardia, no gallops, no rubs Abdomen: Soft, nontender, no organomegaly, bowel sounds present Extremities: Candidiasis affecting bilateral groin folds with overlying cellulitis. Overall appears to be improving. Data 03/18/24 06:00 03/18/24 06:00 A&P Assessment and plan (1) Altered mental status: (2) Abdominal wall cellulitis: (3) T2DM (type 2 diabetes mellitus): Qualifiers: Diabetes mellitus long term care social worker insulin use: without long term care social worker use Diabetes mellitus complication status: with circulatory complication Diabetes mellitus complication detail: with other circulatory complications Qualified Code(s): E 11.59 - Type 2 diabetes mellitus with other circulatory complications (4) Hyperlipidemia: (5) Dyslipidemia: (6) Benign essential HTN: Plan Altered mental status, metabolic and toxic encephalopathy -Etiology resolving -Blood sugar reasonable -Has a history of ESBL E. coli UTI -She has global encephalopathy, I cannot discern a facial droop no slurring of words, no focal weakness that I could discern but it is hard to do neurologic testing given her global encephalopathy -Will do a CT of her head -Urine cultures -Blood cultures -Urine toxicology screen -Start vancomycin -Start meropenem Soft blood pressures ? Lactic acid # Likely secondary to dialysis # Hold p.o. blood pressure medications Abdominal wall cellulitis, -Vancomycin -Meropenem -Keep area clean and dry, continue dry dressing changes -Nystatin powder -Has features of candidiasis skin infection, start IV Diflucan, topical nystatin, keep area clean and dry End-stage renal disease on dialysis, consult nephrology for dialysis, dialysis days Tuesday Acute on chronic anemia Type 2 diabetes mellitus, start low-dose sliding scale History of CHF, not in exacerbation, monitor Fluid overload, receiving dialysis today Full code Lovenox for DVT prophylaxis Continues to have altered mental status this morning, lactic acid, ABG, placed in Trendelenburg, low for permissive hypertension, hold p.o. blood pressure medications, awaiting head CT results, continue IV antibiotics for cellulitis, continue IV Diflucan for candidiasis skin infection 03/17/2024. Mentation is better today. Patient is sitting up independently in the bed, self-feeding. States she feels better however is complaining of pain in the back. Awaiting CT of the pelvis today to assess for underlying sacral osteomyelitis. In the interim continue IV antibiotics, awaiting blood and urine cultures. 03/18/2024 Patient is awake alert oriented. Able to have a full conversation today. CT of the pelvis negative for any underlying osteomyelitis. Shows skin thickening and cellulitic changes. Discontinue IV fluconazole and switch to oral fluconazole 100 mg p.o. daily. Reduce dose of meropenem to 500 mg IV every 24 hours. Check MRSA screen. If negative discontinue vancomycin. Overall patient is clinically improving. Anticipate discharge in the upcoming 24 hours if continues to show clinical improvement. Attestations 2 Medical Necessity Statement*: Change IV to oral medications today. Monitor for stability next 24 hours, discharge back to SNF tomorrow. Coding Level of Care Code Acute Code for Chg Fwd Moderate MDM includes number and complexity of problems actively addressed during encounter, amount and/or complexity of data reviewed/ordered and described risk of complication, morbidity or mortality of management as documented Diagnoses Altered mental status R41.82 Abdominal wall cellulitis L03.311 Type 2 diabetes mellitus with other circulatory complication, without long-term current use of insulin E11.59 Diabetes mellitus long term care social worker insulin use: without correction use Diabetes mellitus complication status: with circulatory complication Diabetes mellitus complication detail: with other circulatory complications Hyperlipidemia E78.5 Dyslipidemia E78.5 Benign essential HTN I10
[2024-03-18 14:20] LABS: MRSA PCR OZH (swab) NOT DETECTED (Not Detecte)
[2024-03-18 15:57] VITALS: BP 139/57; PULSE 95; RESP 18; TEMP 36.5; O2SAT 97
[2024-03-18 16:46] LABS: Glucose Point of Care 166 mg/dL (70-110)
[2024-03-18] MEDS: pantoprazole 40 mg SDV IVP (17:15)
[2024-03-18] MEDS: insulin lispro 100 unit/1 mL SUBCUT ×2 (17:16→21:40)
[2024-03-18] MEDS: enoxaparin 30 mg/0.3 mL Syringe SUBCUT (17:16)
[2024-03-18] MEDS: ropinirole 0.25 mg Tablet 0.5 MG PO (17:16)
[2024-03-18 20:00] VITALS: BP 120/76; PULSE 94; RESP 16; TEMP 36.8; O2SAT 96
[2024-03-18] MEDS: atorvastatin 40 mg Tablet 80 MG PO (20:17)
[2024-03-18 20:58] LABS: Glucose Point of Care 153 mg/dL (70-110)
[2024-03-19] VITALS (10 sets, daily range): BP systolic 101–136; BP diastolic 55–81; PULSE 85–96; RESP 17–19; TEMP 36.4–37; O2SAT 90–96
[2024-03-19] MEDS: meropenem 500 mg SDV IVP (04:12)
[2024-03-19] MEDS: cyclobenzaprine 10 mg Tablet PO ×2 (04:53→15:50)
[2024-03-19 06:32] LABS: Glucose Point of Care 82 mg/dL (70-110)
--- NOTE | 2024-03-19 07:30 | P.PN_ITS ---
Subjective 2 Subjective: abd cellulitis, back ulcer. weak, poor appetite. no sob or cp or curran Medications: Reviewed: Yes Medication Review Details: Current Medications Amlodipine Besylate (Amlodipine 5 Mg Tablet) 5 mg PO DAILY [facility] Last Admin: 03/15/24 13:05 Dose: 5 mg Atorvastatin Calcium (Atorvastatin 40 Mg Tablet) 80 mg PO BEDTIME [facility] Last Admin: 03/18/24 20:17 Dose: 80 mg Carbidopa/Levodopa (Carbidopa-Levodopa 25-100mg Tablet) 1 each PO DAILY [facility] Last Admin: 03/18/24 08:45 Dose: 1 each Clopidogrel Bisulfate (Clopidogrel 75 Mg Tablet) 75 mg PO DAILY [facility] Last Admin: 03/18/24 08:45 Dose: 75 mg Cyclobenzaprine HCl (Cyclobenzaprine 10 Mg Tablet) 10 mg PO Q8H PRN PRN Reason: MUSCLE SPASMS Last Admin: 03/19/24 04:53 Dose: 10 mg Enoxaparin Sodium (Enoxaparin 30 Mg/0.3 Ml Syringe) 30 mg SUBCUT Q24H [facility] Last Admin: 03/18/24 17:16 Dose: 30 mg Escitalopram Oxalate (Escitalopram 10 Mg Tablet) 20 mg PO DAILY [facility] Last Admin: 03/18/24 08:45 Dose: 20 mg Fluconazole (Fluconazole 100 Mg Tablet) 100 mg PO DAILY [facility] Gabapentin (Gabapentin 100 Mg Capsule) 100 mg PO TID [facility] Last Admin: 03/18/24 20:17 Dose: 100 mg Glucagon (Glucagon 1 Mg/Ml Kit 1 Ml) 1 mg IM ONCE PRN; Protocol PRN Reason: Adult Acute Hypoglycemia Nursing Prot. Dextrose (D5w) 500 mls @ 0 mls/hr IV ONCE PRN; Protocol PRN Reason: Adult Acute Hypoglycemia Prot Dextrose (D10w) 125 mls @ 750 mls/hr IV PRN PRN; Protocol PRN Reason: Adult Acute Hypoglycemia Nursing Protocol Dextrose (D10w) 250 mls @ 1,000 mls/hr IV PRN PRN; Protocol PRN Reason: Adult Acute Hypoglycemia Nursing Protocol Sodium Chloride (Sodium Chloride 0.9%) 1,000 mls @ 0 mls/hr IV .Q0M PRN PRN Reason: hypotension or symptomatic Albumin Human (Albumin) 12.5 gm in 50 mls @ 60 mls/hr IV PRN PRN PRN Reason: Hypotension and/or symptomatic Insulin Human Lispro (Insulin Lispro 100 Unit/1 Ml) 0 unit SUBCUT WM&BEDTIME [facility]; Protocol Last Admin: 03/18/24 21:40 Dose: 2 unit Levothyroxine Sodium (Levothyroxine 50 Mcg Tablet) 50 mcg PO DAILY [facility] Last Admin: 03/18/24 08:45 Dose: 50 mcg Meropenem (Meropenem 500 Mg Sdv) 500 mg IVP Q24H [facility]; Protocol Last Admin: 03/19/24 04:12 Dose: 500 mg Metoprolol Tartrate (Metoprolol Tartrate 50 Mg Tablet) 50 mg PO DAILY [facility] Last Admin: 03/15/24 13:05 Dose: 50 mg Multivitamins (V-Opdokdp-Breexrz C Tablet) 1 each PO DAILY [facility] Last Admin: 03/18/24 08:45 Dose: 1 each Naloxone HCl (Naloxone 0.4 Mg/Ml Sdv) 0.1 mg IVP Q2M PRN PRN Reason: OPIATERV Nystatin (Nystatin Powder 15 Gm Btl) 1 applic TOPICAL TID [facility] Last Admin: 03/18/24 20:17 Dose: 1 applic Ondansetron HCl (Ondansetron 2 Mg/Ml Sdv 2 Ml) 4 mg IVP Q8H PRN PRN Reason: vomiting, or N/V if npo Last Admin: 03/17/24 10:26 Dose: 4 mg Pantoprazole Sodium (Pantoprazole 40 Mg Sdv) 40 mg IVP Q24H [facility] Last Admin: 03/18/24 17:15 Dose: 40 mg Ropinirole HCl (Ropinirole 0.25 Mg Tablet) 0.5 mg PO QPM [facility] Last Admin: 03/18/24 17:16 Dose: 0.5 mg Vitals/I&O/Wt Last Vital Signs Temp 97.9 F 03/19/24 04:00 Pulse 93 03/19/24 04:00 Resp 17 03/19/24 04:00 BP 118/55 03/19/24 04:00 Pulse Ox 96 03/19/24 04:00 O2 Del Method Room Air 03/19/24 04:00 O2 Flow Rate 0.5 03/16/24 07:32 03/18/24 03/19/24 03/19/24 22:59 06:59 14:59 Intake Total 720 / 1680 0 / 1680 Balance 720 / 1680 0 / 1680 Weight last 48 hrs Weight 93.984 kg Weight 92.76 kg Weight 90.6 kg Physical Exam 2 Narrative: Vital signs noted. Blood pressure acceptable, afebrile Obese in bed comfortable HEENT normocephalic atraumatic. Neck is supple. Lungs have good air movement. Heart regular positive S1-S2. Abdomen is soft superficial tenderness to touch by cellulitis. Positive bowel sounds. sacral decubitus per nurse Extremities legs improved edema Neuro she is talking and following commands and interactive. Data 03/18/24 06:00 03/18/24 06:00 A&P Assessment and plan (1) End stage renal disease on dialysis: 58-year-old lady, obesity, type 2 diabetes, hyperlipidemia, hypertension. 1. Abdominal wall cellulitis renal dose antibiotics as per Dr. Andrews 2. ESRD dialysis Tuesday and Tuesday. 3. Monitor neuro exam. improved speech 4. Blood pressure okay. 5. Anemia check iron studies ferritin in August was greater than 19,000. give rosemary 6. Hyponatremia stable Calcium 9.3 is elevated given albumin of 2.6. Please note that patient had elevated PTH and PTH RP. In the past her PTH RP was 62 Please ensure full cancer workup has been done. Medications reviewed. Patient was seen and examined with the aid of A/V equipment and the nurse examining the patient. Plan See above. Attestations 2 Medical Necessity Statement*: per hospitalist Time Spent in Patient Care: 16 - 35 minutes (>than 50% of time sp ent in counselling and/or direct pt care on unit) . Coding Level of Care Code Acute Code for Chg Fwd Diagnoses End stage renal disease on dialysis N18.6; Z99.2
[2024-03-19] MEDS: levothyroxine 50 mcg Tablet PO (08:22)
[2024-03-19] MEDS: clopidogrel 75 mg Tablet PO (08:22)
[2024-03-19] MEDS: escitalopram 10 mg Tablet 20 MG PO (08:22)
[2024-03-19] MEDS: b-complex-vitamin c Tablet 1 EACH PO (08:22)
[2024-03-19] MEDS: carbidopa-levodopa 25-100mg Tablet 1 EACH PO (08:22)
[2024-03-19] MEDS: fluconazole 100 mg Tablet PO (08:22)
[2024-03-19] MEDS: nystatin powder 15 gm Btl 1 APPLIC TOPICAL ×2 (08:23→15:50)
[2024-03-19 10:51] LABS: Glucose Point of Care 100 mg/dL (70-110)
--- NOTE | 2024-03-19 12:39 | PC.SOCIAL ---
IMM Updated Updated pt on IMM. No questions voiced. Provided pt a copy. Initialed, dated, & timed copy in chart.
--- NOTE | 2024-03-19 15:05 | P.PN_ITS ---
Subjective 2 Subjective: No new complaints today. Labs unable to be drawn today in spite of multiple sticks by either phlebotomy over the nursing staff. Will attempt labs tomorrow at the time of dialysis. Medications: Reviewed: Yes Medication Review Details: Current Medications Amlodipine Besylate (Amlodipine 5 Mg Tablet) 5 mg PO DAILY [facility] [place] Last Admin: 03/15/24 13:05 Dose: 5 mg Atorvastatin Calcium (Atorvastatin 40 Mg Tablet) 80 mg PO BEDTIME [facility] Last Admin: 03/18/24 20:17 Dose: 80 mg Carbidopa/Levodopa (Carbidopa-Levodopa 25-100mg Tablet) 1 each PO DAILY [facility] Last Admin: 03/18/24 08:45 Dose: 1 each Clopidogrel Bisulfate (Clopidogrel 75 Mg Tablet) 75 mg PO DAILY [facility] Last Admin: 03/18/24 08:45 Dose: 75 mg Cyclobenzaprine HCl (Cyclobenzaprine 10 Mg Tablet) 10 mg PO Q8H PRN PRN Reason: MUSCLE SPASMS Last Admin: 03/19/24 04:53 Dose: 10 mg Enoxaparin Sodium (Enoxaparin 30 Mg/0.3 Ml Syringe) 30 mg SUBCUT Q24H [facility] [place] Last Admin: 03/18/24 17:16 Dose: 30 mg Escitalopram Oxalate (Escitalopram 10 Mg Tablet) 20 mg PO DAILY [facility] Last Admin: 03/18/24 08:45 Dose: 20 mg Fluconazole (Fluconazole 100 Mg Tablet) 100 mg PO DAILY [facility] Gabapentin (Gabapentin 100 Mg Capsule) 100 mg PO TID [facility] [place] Last Admin: 03/18/24 20:17 Dose: 100 mg Glucagon (Glucagon 1 Mg/Ml Kit 1 Ml) 1 mg IM ONCE PRN; Protocol PRN Reason: Adult Acute Hypoglycemia Nursing Prot. Dextrose (D5w) 500 mls @ 0 mls/hr IV ONCE PRN; Protocol PRN Reason: Adult Acute Hypoglycemia Prot Dextrose (D10w) 125 mls @ 750 mls/hr IV PRN PRN; Protocol PRN Reason: Adult Acute Hypoglycemia Nursing Protocol Dextrose (D10w) 250 mls @ 1,000 mls/hr IV PRN PRN; Protocol PRN Reason: Adult Acute Hypoglycemia Nursing Protocol Sodium Chloride (Sodium Chloride 0.9%) 1,000 mls @ 0 mls/hr IV .Q0M PRN PRN Reason: hypotension or symptomatic Albumin Human (Albumin) 12.5 gm in 50 mls @ 60 mls/hr IV PRN PRN PRN Reason: Hypotension and/or symptomatic Insulin Human Lispro (Insulin Lispro 100 Unit/1 Ml) 0 unit SUBCUT WM&BEDTIME [facility] [place]; Protocol Last Admin: 03/18/24 21:40 Dose: 2 unit Levothyroxine Sodium (Levothyroxine 50 Mcg Tablet) 50 mcg PO DAILY [facility] Last Admin: 03/18/24 08:45 Dose: 50 mcg Meropenem (Meropenem 500 Mg Sdv) 500 mg IVP Q24H [facility] [place]; Protocol Last Admin: 03/19/24 04:12 Dose: 500 mg Metoprolol Tartrate (Metoprolol Tartrate 50 Mg Tablet) 50 mg PO DAILY [facility] [place] Last Admin: 03/15/24 13:05 Dose: 50 mg Multivitamins (V-Ubsohwc-Spjxznn C Tablet) 1 each PO DAILY [facility] Last Admin: 03/18/24 08:45 Dose: 1 each Naloxone HCl (Naloxone 0.4 Mg/Ml Sdv) 0.1 mg IVP Q2M PRN PRN Reason: OPIATERV Nystatin (Nystatin Powder 15 Gm Btl) 1 applic TOPICAL TID [facility] Last Admin: 03/18/24 20:17 Dose: 1 applic Ondansetron HCl (Ondansetron 2 Mg/Ml Sdv 2 Ml) 4 mg IVP Q8H PRN PRN Reason: vomiting, or N/V if npo Last Admin: 03/17/24 10:26 Dose: 4 mg Pantoprazole Sodium (Pantoprazole 40 Mg Sdv) 40 mg IVP Q24H [facility] [place] Last Admin: 03/18/24 17:15 Dose: 40 mg Ropinirole HCl (Ropinirole 0.25 Mg Tablet) 0.5 mg PO QPM [facility] [place] Last Admin: 03/18/24 17:16 Dose: 0.5 mg Vitals/I&O/Wt Last Vital Signs Temp 98.2 F 03/19/24 12:42 Pulse 85 03/19/24 12:42 Resp 18 03/19/24 12:42 BP 127/72 03/19/24 12:42 Pulse Ox 94 03/19/24 12:42 O2 Del Method Room Air 03/19/24 12:42 O2 Flow Rate 0.5 03/16/24 07:32 03/19/24 03/19/24 03/19/24 06:59 14:59 22:59 Intake Total 0 / 1680 720 / 720 Balance 0 / 1680 720 / 720 Weight last 48 hrs Weight 93.984 kg Weight 92.76 kg Physical Exam 2 Narrative: General: No acute distress, AO x3 HEENT: PERRLA, pupils bilaterally equal and reactive, pallors not present Chest: Normal vesicular breath sounds, no added sounds, equal good air entry bilaterally CVS: S1-S2 regular, no murmurs, no tachycardia, no gallops, no rubs Abdomen: Soft, nontender, no organomegaly, bowel sounds present Extremities: Candidiasis affecting bilateral groin folds with overlying cellulitis. Overall appears to be improving. Data 03/18/24 06:00 03/18/24 06:00 A&P Assessment and plan (1) Altered mental status: (2) Abdominal wall cellulitis: (3) T2DM (type 2 diabetes mellitus): Qualifiers: Diabetes mellitus continuous churn buttermaker insulin use: without continuous churn buttermaker use Diabetes mellitus complication status: with circulatory complication Diabetes mellitus complication detail: with other circulatory complications Qualified Code(s): E 11.59 - Type 2 diabetes mellitus with other circulatory complications (4) Hyperlipidemia: (5) Dyslipidemia: (6) Benign essential HTN: Plan Altered mental status, metabolic and toxic encephalopathy -Etiology resolving -Blood sugar reasonable -Has a history of ESBL E. coli UTI -She has global encephalopathy, I cannot discern a facial droop no slurring of words, no focal weakness that I could discern but it is hard to do neurologic testing given her global encephalopathy -Will do a CT of her head -Urine cultures -Blood cultures -Urine toxicology screen -Start vancomycin -Start meropenem Soft blood pressures ? Lactic acid # Likely secondary to dialysis # Hold p.o. blood pressure medications Abdominal wall cellulitis, -Vancomycin -Meropenem -Keep area clean and dry, continue dry dressing changes -Nystatin powder -Has features of candidiasis skin infection, start IV Diflucan, topical nystatin, keep area clean and dry End-stage renal disease on dialysis, consult nephrology for dialysis, dialysis days Tuesday Acute on chronic anemia Type 2 diabetes mellitus, start low-dose sliding scale History of CHF, not in exacerbation, monitor Fluid overload, receiving dialysis today Full code Lovenox for DVT prophylaxis Continues to have altered mental status this morning, lactic acid, ABG, placed in Trendelenburg, low for permissive hypertension, hold p.o. blood pressure medications, awaiting head CT results, continue IV antibiotics for cellulitis, continue IV Diflucan for candidiasis skin infection 03/17/2024. Mentation is better today. Patient is sitting up independently in the bed, self-feeding. States she feels better however is complaining of pain in the back. Awaiting CT of the pelvis today to assess for underlying sacral osteomyelitis. In the interim continue IV antibiotics, awaiting blood and urine cultures. 03/18/2024 Patient is awake alert oriented. Able to have a full conversation today. CT of the pelvis negative for any underlying osteomyelitis. Shows skin thickening and cellulitic changes. Discontinue IV fluconazole and switch to oral fluconazole 100 mg p.o. daily. Reduce dose of meropenem to 500 mg IV every 24 hours. Check MRSA screen. If negative discontinue vancomycin. Overall patient is clinically improving. Anticipate discharge in the upcoming 24 hours if continues to show clinical improvement. 03/19/2024 No acute interim events. Patient feels much better today. Cellulitis about the same. Continue oral fluconazole and IV meropenem given that patient is colonized with ESBL E. coli. Interdry to be placed in the groin folds. Patient overall clinically better, stable for discharge, however awaiting appropriate disposition planning. Attestations 2 Medical Necessity Statement*: Ongoing appropriate disposition planning Coding Level of Care Code Acute Code for Chg Fwd Straight Forward/Low MDM includes number and complexity of problems actively addressed during encounter, amount and/or complexity of data reviewed/ordered and described risk of complication, morbidity or mortality of management as documented Diagnoses Altered mental status R41.82 Abdominal wall cellulitis L03.311 Type 2 diabetes mellitus with other circulatory complication, without long-term current use of insulin E11.59 Diabetes mellitus shelter insulin use: without continuous churn buttermaker use Diabetes mellitus complication status: with circulatory complication Diabetes mellitus complication detail: with other circulatory complications Hyperlipidemia E78.5 Dyslipidemia E78.5 Benign essential HTN I10
[2024-03-19 16:46] LABS: Glucose Point of Care 116 mg/dL (70-110)
[2024-03-19] MEDS: enoxaparin 30 mg/0.3 mL Syringe SUBCUT (17:42)
[2024-03-19] MEDS: ropinirole 0.25 mg Tablet 0.5 MG PO (17:43)
[2024-03-19] MEDS: atorvastatin 40 mg Tablet 80 MG PO (20:39)
[2024-03-19] MEDS: gabapentin 100 mg Capsule PO (20:39)
[2024-03-19 20:49] LABS: Glucose Point of Care 199 mg/dL (70-110)
[2024-03-19] MEDS: insulin lispro 100 unit/1 mL SUBCUT (22:10)
[2024-03-20] VITALS (8 sets, daily range): BP systolic 91–124; BP diastolic 51–87; PULSE 51–100; RESP 14–20; TEMP 36.4–37.3; O2SAT 91–98
[2024-03-20] MEDS: meropenem 500 mg SDV IVP (03:09)
[2024-03-20 05:38] LABS: Basophils % 0.4 %; Hematocrit 26.6 % (36-47); Lymphocytes # 0.6 10^3/uL (0.8-4.8); Lymphocytes % 11.2 %; Mean Corpuscular HGB Conc 31.2 g/dL (30-55); Mean Corpuscular Hemoglobin 29.1 pg (27-33); Mean Corpuscular Volume 93.3 fl (85-98); Mean Platelet Volume 10.5 fL (7.4-10.4); Monocytes # 0.7 10^3/uL (0.2-0.9); Monocytes % 12.2 %; Neutrophils # 4.27 10^3/uL (1.8-7.7); Neutrophils % 75.7 %; Nucleated Red Blood Cells % 0 %; Platelet Count 278 10^3/cmm (157-399); Red Blood Count 2.85 10^6/uL (3.85-5.65); Red Cell Distribution Width 17.6 % (12.1-15.1); White Blood Count 5.64 10^3/uL (3.29-11.43)
[2024-03-20 06:10] LABS: Calcium 8.8 mg/dL (8.5-10.5)
[2024-03-20 06:15] LABS: Parathyroid Hormone 69.4 pg/mL (15-65)
[2024-03-20 06:23] LABS: Alanine Aminotransferase < 5 U/L (0-33); Albumin Level 2.5 g/dL (3.5-5.2); Alkaline Phosphatase 86 U/L (35-105); Anion Gap 16.1 (5-19); Aspartate Amino Transferase 16 U/L (0-32); Blood Urea Nitrogen 24 mg/dL (6-20); Carbon Dioxide 25 mmol/L (22-29); Chloride 91 mmol/L (98-107); Creatinine Clr Calc Pharmacy 16.9049; Globulin 3.4 g/dL (1.3-4.6); Glomerular Filtration Rate 12.9 mL/min (90-130); Glucose 59 mg/dL (65-115); Iron 30 ug/dL (37-145); Osmolality Calculated 266 mOsm/kg (285-295); Percent Saturation 32.9 % (20-50); Potassium 5.1 mmol/L (3.5-5.1); Sodium 127 mmol/L (136-145); Total Bilirubin 0.5 mg/dL (0.15-1.2); Total Iron Binding Capacity 91 mcg/dl; Total Protein 5.9 g/dL (6.6-8.7); Unsaturated Iron Binding 61 ug/dL (112-347)
[2024-03-20 06:27] LABS: Glucose Point of Care 131 mg/dL (70-110)
[2024-03-20 06:37] LABS: Ferritin 1362 ng/mL (15-150)
[2024-03-20] MEDS: nystatin powder 15 gm Btl 1 APPLIC TOPICAL ×3 (07:21→22:15)
[2024-03-20] MEDS: pantoprazole DR 40 mg Tablet PO (07:21)
[2024-03-20] MEDS: escitalopram 10 mg Tablet 20 MG PO (07:21)
[2024-03-20] MEDS: levothyroxine 50 mcg Tablet PO (07:21)
[2024-03-20] MEDS: carbidopa-levodopa 25-100mg Tablet 1 EACH PO (07:22)
[2024-03-20] MEDS: b-complex-vitamin c Tablet 1 EACH PO (07:22)
[2024-03-20] MEDS: fluconazole 100 mg Tablet PO (07:22)
[2024-03-20] MEDS: clopidogrel 75 mg Tablet PO (07:22)
[2024-03-20 07:44] LABS: 25 Hydroxy Vitamin D 36 ng/mL (30-100)
--- NOTE | 2024-03-20 08:20 | PM.PN ---
Subjective Subjective: Patient was seen and examined. She is eating well she feels better no nausea vomiting shortness of breath or chest pain or headaches. Medications: Reviewed: Yes Medication Review Details: Current Medications Amlodipine Besylate (Amlodipine 5 Mg Tablet) 5 mg PO DAILY [facility] Last Admin: 03/15/24 13:05 Dose: 5 mg Atorvastatin Calcium (Atorvastatin 40 Mg Tablet) 80 mg PO BEDTIME [facility] Last Admin: 03/19/24 20:39 Dose: 80 mg Carbidopa/Levodopa (Carbidopa-Levodopa 25-100mg Tablet) 1 each PO DAILY [facility] Last Admin: 03/20/24 07:22 Dose: 1 each Clopidogrel Bisulfate (Clopidogrel 75 Mg Tablet) 75 mg PO DAILY [facility] Last Admin: 03/20/24 07:22 Dose: 75 mg Cyclobenzaprine HCl (Cyclobenzaprine 10 Mg Tablet) 10 mg PO Q8H PRN PRN Reason: MUSCLE SPASMS Last Admin: 03/19/24 15:50 Dose: 10 mg Enoxaparin Sodium (Enoxaparin 30 Mg/0.3 Ml Syringe) 30 mg SUBCUT Q24H [facility] Last Admin: 03/19/24 17:42 Dose: 30 mg Epoetin Bandar-epbx (Epoetin Bandar-Epbx 10,000 Unit/Ml Sdv (Esrd)) 5,000 unit SUBCUT [facility]YS[facility] Escitalopram Oxalate (Escitalopram 10 Mg Tablet) 20 mg PO DAILY [facility] Last Admin: 03/20/24 07:21 Dose: 20 mg Fluconazole (Fluconazole 100 Mg Tablet) 100 mg PO DAILY [facility] Last Admin: 03/20/24 07:22 Dose: 100 mg Gabapentin (Gabapentin 100 Mg Capsule) 100 mg PO BEDTIME [facility] Last Admin: 03/19/24 20:39 Dose: 100 mg Glucagon (Glucagon 1 Mg/Ml Kit 1 Ml) 1 mg IM ONCE PRN; Protocol PRN Reason: Adult Acute Hypoglycemia Nursing Prot. Dextrose (D5w) 500 mls @ 0 mls/hr IV ONCE PRN; Protocol PRN Reason: Adult Acute Hypoglycemia Prot Dextrose (D10w) 125 mls @ 750 mls/hr IV PRN PRN; Protocol PRN Reason: Adult Acute Hypoglycemia Nursing Protocol Dextrose (D10w) 250 mls @ 1,000 mls/hr IV PRN PRN; Protocol PRN Reason: Adult Acute Hypoglycemia Nursing Protocol Sodium Chloride (Sodium Chloride 0.9%) 1,000 mls @ 0 mls/hr IV .Q0M PRN PRN Reason: hypotension or symptomatic Albumin Human (Albumin) 12.5 gm in 50 mls @ 60 mls/hr IV PRN PRN PRN Reason: Hypotension and/or symptomatic Insulin Human Lispro (Insulin Lispro 100 Unit/1 Ml) 0 unit SUBCUT WM&BEDTIME [facility]; Protocol Last Admin: 03/20/24 06:51 Dose: Not Given Levothyroxine Sodium (Levothyroxine 50 Mcg Tablet) 50 mcg PO DAILY [facility] Last Admin: 03/20/24 07:21 Dose: 50 mcg Meropenem (Meropenem 500 Mg Sdv) 500 mg IVP Q24H [facility]; Protocol Last Admin: 03/20/24 03:09 Dose: 500 mg Metoprolol Tartrate (Metoprolol Tartrate 50 Mg Tablet) 50 mg PO DAILY [facility] Last Admin: 03/15/24 13:05 Dose: 50 mg Multivitamins (S-Ygwsgmo-Mhvkvmj C Tablet) 1 each PO DAILY [facility] Last Admin: 03/20/24 07:22 Dose: 1 each Naloxone HCl (Naloxone 0.4 Mg/Ml Sdv) 0.1 mg IVP Q2M PRN PRN Reason: OPIATERV Nystatin (Nystatin Powder 15 Gm Btl) 1 applic TOPICAL TID [facility] Last Admin: 03/20/24 07:21 Dose: 1 applic Ondansetron HCl (Ondansetron 2 Mg/Ml Sdv 2 Ml) 4 mg IVP Q8H PRN PRN Reason: vomiting, or N/V if npo Last Admin: 03/17/24 10:26 Dose: 4 mg Pantoprazole Sodium (Pantoprazole Dr 40 Mg Tablet) 40 mg PO DAILY [facility] Last Admin: 03/20/24 07:21 Dose: 40 mg Ropinirole HCl (Ropinirole 0.25 Mg Tablet) 0.5 mg PO QPM [facility] Last Admin: 03/19/24 17:43 Dose: 0.5 mg Vitals/I&O/Wt Last Vital Signs Temp 97.5 F L 03/20/24 07:52 Pulse 89 03/20/24 07:52 Resp 18 03/20/24 07:52 BP 124/87 03/20/24 07:52 Pulse Ox 94 03/20/24 07:52 O2 Del Method Room Air 03/20/24 07:52 O2 Flow Rate 0.5 03/16/24 07:32 03/19/24 03/20/24 03/20/24 22:59 06:59 14:59 Intake Total 860 / 1580 350 / 1930 60 / 60 Balance 860 / 1580 350 / 1930 60 / 60 Weight last 48 hrs Weight 90.855 kg Weight 93.984 kg Physical Exam Narrative: Vital signs noted. afebrile Obese in bed comfortable HEENT normocephalic atraumatic. Neck is supple. Lungs have good air movement. Heart regular positive S1-S2. Abdomen is soft superficial tenderness to touch by cellulitis. Positive bowel sounds. sacral decubitus per nurse Extremities legs + b/l edema Neuro she is talking and following commands and interactive, alert , eating RUE AVF w/ thrill and bruit. Data 03/20/24 04:30 03/20/24 04:30 Micro: Microbiology 03/14/24 16:51 Blood Culture - Final Blood NO GROWTH AFTER 5 DAYS 03/14/24 16:46 Blood Culture - Final Blood NO GROWTH AFTER 5 DAYS A&P Assessment and plan (1) End stage renal disease on dialysis: 58-year-old lady, obesity, type 2 diabetes, hyperlipidemia, hypertension. 1. Abdominal wall cellulitis renal dose antibiotics as per Dr. Andrews 2. ESRD dialysis Tuesday and Tuesday. HD today remove fluids as tolerated 3. hyponatremia and hyperkalemia- monitor w/ dialysis 4. Blood pressure okay. d.c norvasc 5. Anemia - iron sat 33% ferritin 1362 give rosemary. no iron 6. Calcium 9.0 albumin of 2.6. pth 69.4- no vit d analouges In the past her PTH RP was 62. repeat is pending. Medications reviewed. keep vanco trough under 19 Patient was seen and examined with the aid of A/V equipment and the nurse examining the patient. Plan See above. HD today Attestations Medical Necessity Statement*: abd wall cellulitis, electrolyte abnormalities, ESRD HD today Time Spent in Patient Care: Greater than 35 minutes Coding Level of Care Code Acute Code for Chg Fwd Diagnoses End stage renal disease on dialysis N18.6; Z99.2
[2024-03-20 10:38] LABS: Glucose Point of Care 58 mg/dL (70-110)
[2024-03-20 11:04] LABS: Glucose Point of Care 81 mg/dL (70-110)
[2024-03-20] MEDS: cyclobenzaprine 10 mg Tablet PO (11:35)
--- NOTE | 2024-03-20 12:29 | PC.OT ---
OT TREATMENT ATTEMPTED; PATIENT IN PROCESS OF BEING TRANSFERRED TO DIALYSIS
[2024-03-20 13:02] LABS: Glucose Point of Care 79 mg/dL (70-110)
--- NOTE | 2024-03-20 14:36 | PC.OT ---
OT TREATMENT ATTEMPTED; PATIENT STILL IN DIALYSIS
[2024-03-20 16:28] LABS: Glucose Point of Care 81 mg/dL (70-110)
--- NOTE | 2024-03-20 16:45 | PM.PN ---
Subjective Subjective: No acute interim events. Hemoglobin stable at 8.3. Complains of pain over the left hip Medications: Reviewed: Yes Medication Review Details: Current Medications Amlodipine Besylate (Amlodipine 5 Mg Tablet) 5 mg PO DAILY [facility] Last Admin: 03/15/24 13:05 Dose: 5 mg Atorvastatin Calcium (Atorvastatin 40 Mg Tablet) 80 mg PO BEDTIME [facility] Last Admin: 03/19/24 20:39 Dose: 80 mg Carbidopa/Levodopa (Carbidopa-Levodopa 25-100mg Tablet) 1 each PO DAILY [facility] Last Admin: 03/20/24 07:22 Dose: 1 each Clopidogrel Bisulfate (Clopidogrel 75 Mg Tablet) 75 mg PO DAILY [facility] Last Admin: 03/20/24 07:22 Dose: 75 mg Cyclobenzaprine HCl (Cyclobenzaprine 10 Mg Tablet) 10 mg PO Q8H PRN PRN Reason: MUSCLE SPASMS Last Admin: 03/19/24 15:50 Dose: 10 mg Enoxaparin Sodium (Enoxaparin 30 Mg/0.3 Ml Syringe) 30 mg SUBCUT Q24H [facility] Last Admin: 03/19/24 17:42 Dose: 30 mg Epoetin Bandar-epbx (Epoetin Bandar-Epbx 10,000 Unit/Ml Sdv (Esrd)) 5,000 unit SUBCUT DIALYSIS [facility] Escitalopram Oxalate (Escitalopram 10 Mg Tablet) 20 mg PO DAILY [facility] Last Admin: 03/20/24 07:21 Dose: 20 mg Fluconazole (Fluconazole 100 Mg Tablet) 100 mg PO DAILY [facility] Last Admin: 03/20/24 07:22 Dose: 100 mg Gabapentin (Gabapentin 100 Mg Capsule) 100 mg PO BEDTIME [facility] Last Admin: 03/19/24 20:39 Dose: 100 mg Glucagon (Glucagon 1 Mg/Ml Kit 1 Ml) 1 mg IM ONCE PRN; Protocol PRN Reason: Adult Acute Hypoglycemia Nursing Prot. Dextrose (D5w) 500 mls @ 0 mls/hr IV ONCE PRN; Protocol PRN Reason: Adult Acute Hypoglycemia Prot Dextrose (D10w) 125 mls @ 750 mls/hr IV PRN PRN; Protocol PRN Reason: Adult Acute Hypoglycemia Nursing Protocol Dextrose (D10w) 250 mls @ 1,000 mls/hr IV PRN PRN; Protocol PRN Reason: Adult Acute Hypoglycemia Nursing Protocol Sodium Chloride (Sodium Chloride 0.9%) 1,000 mls @ 0 mls/hr IV .Q0M PRN PRN Reason: hypotension or symptomatic Albumin Human (Albumin) 12.5 gm in 50 mls @ 60 mls/hr IV PRN PRN PRN Reason: Hypotension and/or symptomatic Insulin Human Lispro (Insulin Lispro 100 Unit/1 Ml) 0 unit SUBCUT WM&BEDTIME [facility]; Protocol Last Admin: 03/20/24 06:51 Dose: Not Given Levothyroxine Sodium (Levothyroxine 50 Mcg Tablet) 50 mcg PO DAILY [facility] Last Admin: 03/20/24 07:21 Dose: 50 mcg Meropenem (Meropenem 500 Mg Sdv) 500 mg IVP Q24H [facility]; Protocol Last Admin: 03/20/24 03:09 Dose: 500 mg Metoprolol Tartrate (Metoprolol Tartrate 50 Mg Tablet) 50 mg PO DAILY [facility] Last Admin: 03/15/24 13:05 Dose: 50 mg Multivitamins (P-Udjxbal-Ygujuwy C Tablet) 1 each PO DAILY [facility] Last Admin: 03/20/24 07:22 Dose: 1 each Naloxone HCl (Naloxone 0.4 Mg/Ml Sdv) 0.1 mg IVP Q2M PRN PRN Reason: OPIATERV Nystatin (Nystatin Powder 15 Gm Btl) 1 applic TOPICAL TID [facility] Last Admin: 03/20/24 07:21 Dose: 1 applic Ondansetron HCl (Ondansetron 2 Mg/Ml Sdv 2 Ml) 4 mg IVP Q8H PRN PRN Reason: vomiting, or N/V if npo Last Admin: 03/17/24 10:26 Dose: 4 mg Pantoprazole Sodium (Pantoprazole Dr 40 Mg Tablet) 40 mg PO DAILY [facility] Last Admin: 03/20/24 07:21 Dose: 40 mg Ropinirole HCl (Ropinirole 0.25 Mg Tablet) 0.5 mg PO QPM [facility] Last Admin: 03/19/24 17:43 Dose: 0.5 mg Vitals/I&O/Wt Last Vital Signs Temp 97.5 F L 03/20/24 07:52 Pulse 100 03/20/24 15:35 Resp 20 H 03/20/24 15:35 BP 107/78 03/20/24 15:35 Pulse Ox 93 03/20/24 11:45 O2 Del Method Nasal Cannula 03/20/24 11:45 O2 Flow Rate 0.5 03/16/24 07:32 03/20/24 03/20/24 03/20/24 06:59 14:59 22:59 Intake Total 350 / 1930 60 / 60 Balance 350 / 1930 60 / 60 Weight last 48 hrs Weight 90.855 kg Weight 93.984 kg Physical Exam Narrative: General: No acute distress, AO x3, appears older than stated age HEENT: PERRLA, pupils bilaterally equal and reactive, pallors not present Chest: Normal vesicular breath sounds, no added sounds, equal good air entry bilaterally CVS: S1-S2 regular, no murmurs, no tachycardia, no gallops, no rubs Abdomen: Soft, nontender, no organomegaly, bowel sounds present Extremities: Candidiasis affecting bilateral groin folds with overlying cellulitis. Overall appears to be improving. Data 03/20/24 04:30 03/20/24 04:30 Micro: Microbiology 03/14/24 16:51 Blood Culture - Final Blood NO GROWTH AFTER 5 DAYS 03/14/24 16:46 Blood Culture - Final Blood NO GROWTH AFTER 5 DAYS A&P Assessment and plan (1) Altered mental status: (2) Abdominal wall cellulitis: (3) T2DM (type 2 diabetes mellitus): Qualifiers: Diabetes mellitus complication detail: with other circulatory complications Diabetes mellitus complication status: with circulatory complication Diabetes mellitus nursing home insulin use: without terminal computer operator use Qualified Code(s): E11.59 - Type 2 diabetes mellitus with other circulatory complications (4) Hyperlipidemia: (5) Dyslipidemia: (6) Benign essential HTN: Plan Altered mental status, metabolic and toxic encephalopathy -Etiology resolving -Blood sugar reasonable -Has a history of ESBL E. coli UTI -She has global encephalopathy, I cannot discern a facial droop no slurring of words, no focal weakness that I could discern but it is hard to do neurologic testing given her global encephalopathy -Will do a CT of her head -Urine cultures -Blood cultures -Urine toxicology screen -Start vancomycin -Start meropenem Soft blood pressures ? Lactic acid # Likely secondary to dialysis # Hold p.o. blood pressure medications Abdominal wall cellulitis, -Vancomycin -Meropenem -Keep area clean and dry, continue dry dressing changes -Nystatin powder -Has features of candidiasis skin infection, start IV Diflucan, topical nystatin, keep area clean and dry End-stage renal disease on dialysis, consult nephrology for dialysis, dialysis days Tuesday Acute on chronic anemia Type 2 diabetes mellitus, start low-dose sliding scale History of CHF, not in exacerbation, monitor Fluid overload, receiving dialysis today Full code Lovenox for DVT prophylaxis Continues to have altered mental status this morning, lactic acid, ABG, placed in Trendelenburg, low for permissive hypertension, hold p.o. blood pressure medications, awaiting head CT results, continue IV antibiotics for cellulitis, continue IV Diflucan for candidiasis skin infection 03/17/2024. Mentation is better today. Patient is sitting up independently in the bed, self-feeding. States she feels better however is complaining of pain in the back. Awaiting CT of the pelvis today to assess for underlying sacral osteomyelitis. In the interim continue IV antibiotics, awaiting blood and urine cultures. 03/18/2024 Patient is awake alert oriented. Able to have a full conversation today. CT of the pelvis negative for any underlying osteomyelitis. Shows skin thickening and cellulitic changes. Discontinue IV fluconazole and switch to oral fluconazole 100 mg p.o. daily. Reduce dose of meropenem to 500 mg IV every 24 hours. Check MRSA screen. If negative discontinue vancomycin. Overall patient is clinically improving. Anticipate discharge in the upcoming 24 hours if continues to show clinical improvement. 03/19/2024 No acute interim events. Patient feels much better today. Cellulitis about the same. Continue oral fluconazole and IV meropenem given that patient is colonized with ESBL E. coli. Interdry to be placed in the groin folds. Patient overall clinically better, stable for discharge, however awaiting appropriate disposition planning. 03/20/2024 No acute interim events. Getting dialyzed today. Afebrile hemodynamically stable. Hypoglycemic this morning with blood sugar down to 58. Thereafter improved between 79-81.Last HbA1c reviewed from this admission at 5.4. Patient received 4 units of insulin at 10 PM overnight per low-dose sliding scale. Will discontinue all insulin for now. Hemoglobin stable. Gets erythropoietin at dialysis. Rash continues to heal. Interdry has been placed. Continue oral fluconazole. Add clotrimazole and mupirocin for local application. Will aim to discontinue meropenem after 7-day course for skin and soft tissue infection. Attestations Medical Necessity Statement*: Awaiting appropriate disposition planning. HD today. Coding Level of Care Code Acute Code for Chg Fwd Diagnoses Altered mental status R41.82 Abdominal wall cellulitis L03.311 Type 2 diabetes mellitus with other circulatory complication, without long-term current use of insulin E11.59 Diabetes mellitus complication detail: with other circulatory complications Diabetes mellitus complication status: with circulatory complication Diabetes mellitus terminal computer operator insulin use: without terminal computer operator use Hyperlipidemia E78.5 Dyslipidemia E78.5 Benign essential HTN I10
[2024-03-20 17:01] LABS: Glucose Point of Care 117 mg/dL (70-110)
[2024-03-20] MEDS: ropinirole 0.25 mg Tablet 0.5 MG PO (17:18)
[2024-03-20] MEDS: enoxaparin 30 mg/0.3 mL Syringe SUBCUT (17:19)
[2024-03-20] MEDS: clotrimazole 1% cream 30 gm 1 APPLIC TOPICAL (17:25)
[2024-03-20] MEDS: mupirocin oint 22 gm 1 APPLIC TOPICAL (17:26)
[2024-03-20 21:05] LABS: Glucose Point of Care 170 mg/dL (70-110)
[2024-03-20] MEDS: atorvastatin 40 mg Tablet 80 MG PO (22:14)
[2024-03-20] MEDS: gabapentin 100 mg Capsule PO (22:15)
[2024-03-21] VITALS (7 sets, daily range): BP systolic 104–123; BP diastolic 52–57; PULSE 92–100; RESP 16–20; TEMP 36.3–36.7; O2SAT 94–99
[2024-03-21] MEDS: meropenem 500 mg SDV IVP ×2 (02:19→14:41)
[2024-03-21 06:04] LABS: Basophils % 0.2 %; Hematocrit 27.7 % (36-47); Lymphocytes # 0.6 10^3/uL (0.8-4.8); Lymphocytes % 10.3 %; Mean Corpuscular HGB Conc 29.6 g/dL (30-55); Mean Corpuscular Hemoglobin 28.7 pg (27-33); Mean Corpuscular Volume 96.9 fl (85-98); Mean Platelet Volume 10.1 fL (7.4-10.4); Monocytes # 0.7 10^3/uL (0.2-0.9); Neutrophils # 4.29 10^3/uL (1.8-7.7); Neutrophils % 76.1 %; Nucleated Red Blood Cells % 0 %; Platelet Count 267 10^3/cmm (157-399); Red Blood Count 2.86 10^6/uL (3.85-5.65); White Blood Count 5.63 10^3/uL (3.29-11.43)
[2024-03-21 06:25] LABS: Glucose Point of Care 130 mg/dL (70-110)
[2024-03-21 06:33] LABS: Alanine Aminotransferase < 5 U/L (0-33); Albumin Level 2.4 g/dL (3.5-5.2); Alkaline Phosphatase 94 U/L (35-105); Anion Gap 14.2 (5-19); Aspartate Amino Transferase 19 U/L (0-32); Blood Urea Nitrogen 14 mg/dL (6-20); Calcium 8.6 mg/dL (8.5-10.5); Carbon Dioxide 27 mmol/L (22-29); Chloride 99 mmol/L (98-107); Creatinine Clr Calc Pharmacy 21.2516; Globulin 3.3 g/dL (1.3-4.6); Glomerular Filtration Rate 17.3 mL/min (90-130); Glucose 94 mg/dL (65-115); Osmolality Calculated 282 mOsm/kg (285-295); Phosphorus 3.4 mg/dL (2.5-4.5); Potassium 4.2 mmol/L (3.5-5.1); Sodium 136 mmol/L (136-145); Total Bilirubin 0.6 mg/dL (0.15-1.2); Total Protein 5.7 g/dL (6.6-8.7)
--- NOTE | 2024-03-21 09:01 | PM.PN ---
Subjective Subjective: The patient was seen and examined. The patient feels well no nausea vomiting or diarrhea. The patient had an episode of confusion yesterday. Decreasing abdominal and hip pain. Mental status continues to improve. Medications: Reviewed: Yes Medication Review Details: Current Medications Atorvastatin Calcium (Atorvastatin 40 Mg Tablet) 80 mg PO BEDTIME [facility] Last Admin: 03/20/24 22:14 Dose: 80 mg Carbidopa/Levodopa (Carbidopa-Levodopa 25-100mg Tablet) 1 each PO DAILY [facility] Last Admin: 03/20/24 07:22 Dose: 1 each Clopidogrel Bisulfate (Clopidogrel 75 Mg Tablet) 75 mg PO DAILY [facility] Last Admin: 03/20/24 07:22 Dose: 75 mg Clotrimazole (Clotrimazole 1% Cream 30 Gm) 1 applic TOPICAL BID [facility] Last Admin: 03/20/24 17:25 Dose: 1 applic Cyclobenzaprine HCl (Cyclobenzaprine 10 Mg Tablet) 10 mg PO Q8H PRN PRN Reason: MUSCLE SPASMS Last Admin: 03/20/24 11:35 Dose: 10 mg Enoxaparin Sodium (Enoxaparin 30 Mg/0.3 Ml Syringe) 30 mg SUBCUT Q24H [facility] Last Admin: 03/20/24 17:19 Dose: 30 mg Epoetin Bandar-epbx (Epoetin Bandar-Epbx 10,000 Unit/Ml Sdv (Esrd)) 5,000 unit SUBCUT DIALYSIS [facility] Last Admin: 03/20/24 16:39 Dose: Not Given Escitalopram Oxalate (Escitalopram 10 Mg Tablet) 20 mg PO DAILY [facility] Last Admin: 03/20/24 07:21 Dose: 20 mg Fluconazole (Fluconazole 100 Mg Tablet) 100 mg PO DAILY [facility] Last Admin: 03/20/24 07:22 Dose: 100 mg Gabapentin (Gabapentin 100 Mg Capsule) 100 mg PO BEDTIME [facility] Last Admin: 03/20/24 22:15 Dose: 100 mg Glucagon (Glucagon 1 Mg/Ml Kit 1 Ml) 1 mg IM ONCE PRN; Protocol PRN Reason: Adult Acute Hypoglycemia Nursing Prot. Dextrose (D5w) 500 mls @ 0 mls/hr IV ONCE PRN; Protocol PRN Reason: Adult Acute Hypoglycemia Prot Dextrose (D10w) 125 mls @ 750 mls/hr IV PRN PRN; Protocol PRN Reason: Adult Acute Hypoglycemia Nursing Protocol Dextrose (D10w) 250 mls @ 1,000 mls/hr IV PRN PRN; Protocol PRN Reason: Adult Acute Hypoglycemia Nursing Protocol Sodium Chloride (Sodium Chloride 0.9%) 1,000 mls @ 0 mls/hr IV .Q0M PRN PRN Reason: hypotension or symptomatic Albumin Human (Albumin) 12.5 gm in 50 mls @ 60 mls/hr IV PRN PRN PRN Reason: Hypotension and/or symptomatic Insulin Human Lispro (Insulin Lispro 100 Unit/1 Ml) 0 unit SUBCUT WM&BEDTIME [facility]; Protocol Last Admin: 03/20/24 16:40 Dose: Not Given Levothyroxine Sodium (Levothyroxine 50 Mcg Tablet) 50 mcg PO DAILY [facility] Last Admin: 03/20/24 07:21 Dose: 50 mcg Meropenem (Meropenem 500 Mg Sdv) 500 mg IVP Q24H [facility]; Protocol Last Admin: 03/21/24 02:19 Dose: 500 mg Metoprolol Tartrate (Metoprolol Tartrate 50 Mg Tablet) 50 mg PO DAILY [facility] Last Admin: 03/15/24 13:05 Dose: 50 mg Morphine Sulfate (Morphine 4 Mg/Ml Sdv 1 Ml) 2 mg IVP Q6H PRN PRN Reason: SEVERE PAIN Multivitamins (Z-Zhuzoez-Mqkmmkp C Tablet) 1 each PO DAILY [facility] Last Admin: 03/20/24 07:22 Dose: 1 each Mupirocin (Mupirocin Oint 22 Gm) 1 applic TOPICAL BID [facility] Last Admin: 03/20/24 17:26 Dose: 1 applic Naloxone HCl (Naloxone 0.4 Mg/Ml Sdv) 0.1 mg IVP Q2M PRN PRN Reason: OPIATERV Nystatin (Nystatin Powder 15 Gm Btl) 1 applic TOPICAL TID [facility] Last Admin: 03/20/24 22:15 Dose: 1 applic Ondansetron HCl (Ondansetron 2 Mg/Ml Sdv 2 Ml) 4 mg IVP Q8H PRN PRN Reason: vomiting, or N/V if npo Last Admin: 03/17/24 10:26 Dose: 4 mg Pantoprazole Sodium (Pantoprazole Dr 40 Mg Tablet) 40 mg PO DAILY [facility] Last Admin: 03/20/24 07:21 Dose: 40 mg Ropinirole HCl (Ropinirole 0.25 Mg Tablet) 0.5 mg PO QPM [facility] Last Admin: 03/20/24 17:18 Dose: 0.5 mg Vitals/I&O/Wt Last Vital Signs Temp 97.7 F 03/21/24 07:37 Pulse 95 03/21/24 07:37 Resp 17 03/21/24 07:37 BP 111/53 03/21/24 07:37 Pulse Ox 97 03/21/24 07:37 O2 Del Method Nasal Cannula 03/21/24 07:37 O2 Flow Rate 2 03/21/24 07:28 03/20/24 03/21/24 03/21/24 22:59 06:59 14:59 Intake Total 860 / 920 240 / 1160 60 / 60 Output Total 2423 / 2423 Balance -1563 / -1503 240 / -1263 60 / 60 Weight last 48 hrs Weight 87.317 kg Weight 92.3 kg Weight 90.855 kg Physical Exam Narrative: Vital signs noted. afebrile Obese in chair, NARD comfortable HEENT normocephalic atraumatic. Neck is supple. Lungs have good air movement. Heart regular positive S1-S2. Abdomen is soft superficial tenderness to touch by cellulitis. Positive bowel sounds. sacral decubitus per nurse Extremities legs + b/l edema Neuro she is talking and following commands and interactive, alert , eating RUE AVF w/ thrill and bruit. Data 03/21/24 05:46 03/21/24 05:46 A&P Assessment and plan (1) End stage renal disease on dialysis: 58-year-old lady, obesity, type 2 diabetes, hyperlipidemia, hypertension. 1. Abdominal wall cellulitis renal dose antibiotics as per Dr. Andrews 2. ESRD dialysis Tuesday and Tuesday. 3. hyponatremia and hyperkalemia- improving w/ dialysis 4. Blood pressure low off meds. midodrine for hd 5. Anemia - iron sat 33% ferritin 1362 give rosemary. no iron 6. Calcium normal. albumin of 2.6. pth 69.4- no vit d analouges In the past her PTH RP was 62. repeat is pending. Medications reviewed. keep vanco trough under 19 Patient was seen and examined with the aid of A/V equipment and the nurse examining the patient. Plan See above. HD TTS Attestations Medical Necessity Statement*: per hospitalist Time Spent in Patient Care: 16 - 35 minutes Coding Level of Care Code Acute Code for Chg Fwd Diagnoses End stage renal disease on dialysis N18.6; Z99.2
--- NOTE | 2024-03-21 09:28 | PC.CHAP ---
Pastoral Care Encounter/Spiritual Assessment Type of Contact [] Declined scallop shucker visit [] Patient/Family/Request visit [] Outpatient visit [] Follow-up visit [] Physician referral [] Code/Alert [x] Routine visit [] Staff referral [] Actively dying [] Patient sleeping [] Family support [] [] Out of room [] Palliative care [] [] Receiving care in room [] Pre-surgical visit [] Trauma [] Long length of stay [] ICU visit [] Other: Relational/Emotional Strength [x] Patient feels connected with others/family/visitors/staff [] Distress [] Loneliness/isolation [] Abandonment Spirituality of Patient [x] Person of Sabina [] Attends Zoroastrian of their Sabina [x] Believes in Prayer [] Reads Bible or Evangelical materials [] There are Spiritual issues to be addressed Accounting System Expert Interventions [x] Prayer [x] Active listening [x] Non-anxious presence [x] Spiritual/emotional support [] Crisis/trauma care [] Spiritual counseling [] Bereavement support [] Provided bereavement packet [] Provided Bible/devotional materials [] Provided toy/stuffed animal, coloring book to patient or family member [] Provided Communion [] Anointing/Gordon [] Salvation [x] Completed spiritual assessment [] Other: Impact on Illness or Injury [] Angry [] Fearful [] Anxious [] Often cries [] Exhaustion [] Unable to work [] Unable to attend advent [] Unable to walk/stand [] Unable to read [] Unable to drive [] Unable to eat/drink [] Unable to sleep [] Unable to be with family [] Patient intubated [] Other: Summary Time spent with patient 5 min
[2024-03-21] MEDS: nystatin powder 15 gm Btl 1 APPLIC TOPICAL ×3 (09:42→21:55)
[2024-03-21] MEDS: mupirocin oint 22 gm 1 APPLIC TOPICAL ×2 (09:42→21:55)
[2024-03-21] MEDS: levothyroxine 50 mcg Tablet PO (09:43)
[2024-03-21] MEDS: fluconazole 100 mg Tablet PO (09:43)
[2024-03-21] MEDS: clopidogrel 75 mg Tablet PO (09:43)
[2024-03-21] MEDS: carbidopa-levodopa 25-100mg Tablet 1 EACH PO (09:43)
[2024-03-21] MEDS: b-complex-vitamin c Tablet 1 EACH PO (09:43)
[2024-03-21] MEDS: clotrimazole 1% cream 30 gm 1 APPLIC TOPICAL ×2 (09:43→21:55)
[2024-03-21] MEDS: pantoprazole DR 40 mg Tablet PO (09:43)
[2024-03-21] MEDS: escitalopram 10 mg Tablet 20 MG PO (09:43)
[2024-03-21] MEDS: cyclobenzaprine 10 mg Tablet PO (09:47)
[2024-03-21 11:05] LABS: Glucose Point of Care 165 mg/dL (70-110)
[2024-03-21] MEDS: TRAMadol 50 mg Tablet PO (11:48)
--- NOTE | 2024-03-21 12:04 | PC.SOCIAL ---
IMM Update Pg. 2 of IMM updated. Initialed, dated, and timed, copy provided at bedside.
--- NOTE | 2024-03-21 14:00 | PM.PN ---
Subjective Subjective: no acute interim events. c/o genralized bodyache, worst over the left hip Medications: Reviewed: Yes Medication Review Details: Current Medications Atorvastatin Calcium (Atorvastatin 40 Mg Tablet) 80 mg PO BEDTIME [facility] Last Admin: 03/21/24 21:55 Dose: 80 mg Carbidopa/Levodopa (Carbidopa-Levodopa 25-100mg Tablet) 1 each PO DAILY [facility] Last Admin: 03/22/24 09:11 Dose: 1 each Clopidogrel Bisulfate (Clopidogrel 75 Mg Tablet) 75 mg PO DAILY [facility] Last Admin: 03/22/24 09:11 Dose: 75 mg Clotrimazole (Clotrimazole 1% Cream 30 Gm) 1 applic TOPICAL BID [facility] Last Admin: 03/22/24 09:12 Dose: 1 applic Cyclobenzaprine HCl (Cyclobenzaprine 10 Mg Tablet) 10 mg PO Q8H PRN PRN Reason: MUSCLE SPASMS Last Admin: 03/21/24 09:47 Dose: 10 mg Enoxaparin Sodium (Enoxaparin 30 Mg/0.3 Ml Syringe) 30 mg SUBCUT Q24H [facility] Last Admin: 03/21/24 17:17 Dose: 30 mg Epoetin Bandar-epbx (Epoetin Bandar-Epbx 10,000 Unit/Ml Sdv (Esrd)) 5,000 unit SUBCUT DIALYSIS [facility] Last Admin: 03/20/24 16:39 Dose: Not Given Escitalopram Oxalate (Escitalopram 10 Mg Tablet) 20 mg PO DAILY [facility] Last Admin: 03/22/24 09:11 Dose: 20 mg Fluconazole (Fluconazole 100 Mg Tablet) 100 mg PO DAILY [facility] Last Admin: 03/22/24 09:13 Dose: 100 mg Glucagon (Glucagon 1 Mg/Ml Kit 1 Ml) 1 mg IM ONCE PRN; Protocol PRN Reason: Adult Acute Hypoglycemia Nursing Prot. Dextrose (D5w) 500 mls @ 0 mls/hr IV ONCE PRN; Protocol PRN Reason: Adult Acute Hypoglycemia Prot Dextrose (D10w) 125 mls @ 750 mls/hr IV PRN PRN; Protocol PRN Reason: Adult Acute Hypoglycemia Nursing Protocol Dextrose (D10w) 250 mls @ 1,000 mls/hr IV PRN PRN; Protocol PRN Reason: Adult Acute Hypoglycemia Nursing Protocol Sodium Chloride (Sodium Chloride 0.9%) 1,000 mls @ 0 mls/hr IV .Q0M PRN PRN Reason: hypotension or symptomatic Albumin Human (Albumin) 12.5 gm in 50 mls @ 60 mls/hr IV PRN PRN PRN Reason: Hypotension and/or symptomatic Insulin Human Lispro (Insulin Lispro 100 Unit/1 Ml) 0 unit SUBCUT WM&BEDTIME [facility]; Protocol Last Admin: 03/20/24 16:40 Dose: Not Given Levothyroxine Sodium (Levothyroxine 50 Mcg Tablet) 50 mcg PO DAILY [facility] Last Admin: 03/22/24 09:11 Dose: 50 mcg Metoprolol Tartrate (Metoprolol Tartrate 50 Mg Tablet) 50 mg PO DAILY [facility] Last Admin: 03/15/24 13:05 Dose: 50 mg Midodrine (Midodrine 5 Mg Tablet) 10 mg PO DIALYSIS [facility] Multivitamins (P-Txysnyc-Yrszugt C Tablet) 1 each PO DAILY [facility] Last Admin: 03/22/24 09:11 Dose: 1 each Mupirocin (Mupirocin Oint 22 Gm) 1 applic TOPICAL BID [facility] Last Admin: 03/22/24 09:12 Dose: 1 applic Naloxone HCl (Naloxone 0.4 Mg/Ml Sdv) 0.1 mg IVP Q2M PRN PRN Reason: OPIATERV Nystatin (Nystatin Powder 15 Gm Btl) 1 applic TOPICAL TID [facility] Last Admin: 03/22/24 09:12 Dose: 1 applic Ondansetron HCl (Ondansetron 2 Mg/Ml Sdv 2 Ml) 4 mg IVP Q8H PRN PRN Reason: vomiting, or N/V if npo Last Admin: 03/17/24 10:26 Dose: 4 mg Pantoprazole Sodium (Pantoprazole Dr 40 Mg Tablet) 40 mg PO DAILY [facility] Last Admin: 03/22/24 09:11 Dose: 40 mg Ropinirole HCl (Ropinirole 0.25 Mg Tablet) 0.5 mg PO QPM [facility] Last Admin: 03/21/24 17:18 Dose: 0.5 mg Tramadol HCl (Tramadol 50 Mg Tablet) 50 mg PO Q12H PRN PRN Reason: MODERATE PAIN Vitals/I&O/Wt Last Vital Signs Temp 97.4 F L 03/22/24 04:00 Pulse 102 H 03/22/24 04:00 Resp 20 H 03/22/24 04:00 BP 113/65 03/22/24 04:00 Pulse Ox 99 03/22/24 04:00 O2 Del Method Nasal Cannula 03/22/24 04:00 O2 Flow Rate 2 03/22/24 04:00 03/21/24 03/21/24 03/22/24 14:59 22:59 06:59 Intake Total 420 / 420 120 / 540 0 / 540 Balance 420 / 420 120 / 540 0 / 540 Weight last 48 hrs Weight 87.453 kg Weight 87.317 kg Weight 92.3 kg Physical Exam Narrative: General: No acute distress, AO x3, appears older than stated age HEENT: PERRLA, pupils bilaterally equal and reactive, pallors not present Chest: Normal vesicular breath sounds, no added sounds, equal good air entry bilaterally CVS: S1-S2 regular, no murmurs, no tachycardia, no gallops, no rubs Abdomen: Soft, nontender, no organomegaly, bowel sounds present Extremities: Candidiasis affecting bilateral groin folds with overlying cellulitis. Overall appears to be improving. Data 03/22/24 05:33 03/22/24 05:33 A&P Assessment and plan (1) Altered mental status: (2) Abdominal wall cellulitis: (3) T2DM (type 2 diabetes mellitus): Qualifiers: Diabetes mellitus termite helper insulin use: without group home use Diabetes mellitus complication status: with circulatory complication Diabetes mellitus complication detail: with other circulatory complications Qualified Code(s): E11.59 - Type 2 diabetes mellitus with other circulatory complications (4) Hyperlipidemia: (5) Dyslipidemia: (6) Benign essential HTN: Plan Altered mental status, metabolic and toxic encephalopathy -Etiology resolving -Blood sugar reasonable -Has a history of ESBL E. coli UTI -She has global encephalopathy, I cannot discern a facial droop no slurring of words, no focal weakness that I could discern but it is hard to do neurologic testing given her global encephalopathy -Will do a CT of her head -Urine cultures -Blood cultures -Urine toxicology screen -Start vancomycin -Start meropenem Soft blood pressures ? Lactic acid # Likely secondary to dialysis # Hold p.o. blood pressure medications Abdominal wall cellulitis, -Vancomycin -Meropenem -Keep area clean and dry, continue dry dressing changes -Nystatin powder -Has features of candidiasis skin infection, start IV Diflucan, topical nystatin, keep area clean and dry End-stage renal disease on dialysis, consult nephrology for dialysis, dialysis days Tuesday Acute on chronic anemia Type 2 diabetes mellitus, start low-dose sliding scale History of CHF, not in exacerbation, monitor Fluid overload, receiving dialysis today Full code Lovenox for DVT prophylaxis Continues to have altered mental status this morning, lactic acid, ABG, placed in Trendelenburg, low for permissive hypertension, hold p.o. blood pressure medications, awaiting head CT results, continue IV antibiotics for cellulitis, continue IV Diflucan for candidiasis skin infection 03/17/2024. Mentation is better today. Patient is sitting up independently in the bed, self-feeding. States she feels better however is complaining of pain in the back. Awaiting CT of the pelvis today to assess for underlying sacral osteomyelitis. In the interim continue IV antibiotics, awaiting blood and urine cultures. 03/18/2024 Patient is awake alert oriented. Able to have a full conversation today. CT of the pelvis negative for any underlying osteomyelitis. Shows skin thickening and cellulitic changes. Discontinue IV fluconazole and switch to oral fluconazole 100 mg p.o. daily. Reduce dose of meropenem to 500 mg IV every 24 hours. Check MRSA screen. If negative discontinue vancomycin. Overall patient is clinically improving. Anticipate discharge in the upcoming 24 hours if continues to show clinical improvement. 03/19/2024 No acute interim events. Patient feels much better today. Cellulitis about the same. Continue oral fluconazole and IV meropenem given that patient is colonized with ESBL E. coli. Interdry to be placed in the groin folds. Patient overall clinically better, stable for discharge, however awaiting appropriate disposition planning. 03/20/2024 No acute interim events. Getting dialyzed today. Afebrile hemodynamically stable. Hypoglycemic this morning with blood sugar down to 58. Thereafter improved between 79-81.Last HbA1c reviewed from this admission at 5.4. Patient received 4 units of insulin at 10 PM overnight per low-dose sliding scale. Will discontinue all insulin for now. Hemoglobin stable. Gets erythropoietin at dialysis. Rash continues to heal. Interdry has been placed. Continue oral fluconazole. Add clotrimazole and mupirocin for local application. Will aim to discontinue meropenem after 7-day course for skin and soft tissue infection. 03/21/24: Blood sugar better today, no further hypoglcemia, no acute interim events. Pain control not optimal, ordered for prn morhine however appeared to be getting lethargic in HD, therefore discontinued. Rash appears to be unchanged over yesterday. improved since admission, continue meropenem, to complete 7 day empriic course. Attestations Medical Necessity Statement*: awaiting appropriate dispositon planning Coding Level of Care Code Acute Code for Chg Fwd Diagnoses Altered mental status R41.82 Abdominal wall cellulitis L03.311 Type 2 diabetes mellitus with other circulatory complication, without long-term current use of insulin E11.59 Diabetes mellitus group home insulin use: without group home use Diabetes mellitus complication status: with circulatory complication Diabetes mellitus complication detail: with other circulatory complications Hyperlipidemia E78.5 Dyslipidemia E78.5 Benign essential HTN I10
[2024-03-21 16:36] LABS: Glucose Point of Care 145 mg/dL (70-110)
[2024-03-21] MEDS: enoxaparin 30 mg/0.3 mL Syringe SUBCUT (17:17)
[2024-03-21] MEDS: ropinirole 0.25 mg Tablet 0.5 MG PO (17:18)
[2024-03-21 20:54] LABS: Glucose Point of Care 138 mg/dL (70-110)
[2024-03-21] MEDS: atorvastatin 40 mg Tablet 80 MG PO (21:55)
[2024-03-21] MEDS: gabapentin 100 mg Capsule PO (21:55)
[2024-03-22] MEDS: meropenem 500 mg SDV IVP (03:31)
[2024-03-22 04:00] VITALS: BP 113/65; PULSE 102; RESP 20; TEMP 36.3; O2SAT 99
[2024-03-22 06:16] LABS: Glucose Point of Care 100 mg/dL (70-110)
[2024-03-22 06:45] LABS: Basophils % 0.3 %; Hematocrit 27.9 % (36-47); Lymphocytes # 0.6 10^3/uL (0.8-4.8); Lymphocytes % 9.9 %; Mean Corpuscular HGB Conc 29.7 g/dL (30-55); Mean Corpuscular Hemoglobin 29.4 pg (27-33); Mean Corpuscular Volume 98.9 fl (85-98); Mean Platelet Volume 10.3 fL (7.4-10.4); Monocytes # 0.7 10^3/uL (0.2-0.9); Monocytes % 10.9 %; Neutrophils # 4.66 10^3/uL (1.8-7.7); Neutrophils % 78.4 %; Nucleated Red Blood Cells % 0 %; Platelet Count 274 10^3/cmm (157-399); Red Blood Count 2.82 10^6/uL (3.85-5.65); Red Cell Distribution Width 17.9 % (12.1-15.1); White Blood Count 5.95 10^3/uL (3.29-11.43)
[2024-03-22 07:02] LABS: Vancomycin Random 18.2 ug/mL (20.0-40.0)
[2024-03-22 07:03] LABS: Alanine Aminotransferase < 5 U/L (0-33); Albumin Level 2.4 g/dL (3.5-5.2); Alkaline Phosphatase 93 U/L (35-105); Anion Gap 16.3 (5-19); Aspartate Amino Transferase 18 U/L (0-32); Blood Urea Nitrogen 18 mg/dL (6-20); Calcium 8.8 mg/dL (8.5-10.5); Carbon Dioxide 26 mmol/L (22-29); Chloride 95 mmol/L (98-107); Creatinine Clr Calc Pharmacy 17.5166; Globulin 3.6 g/dL (1.3-4.6); Glomerular Filtration Rate 13.8 mL/min (90-130); Glucose 102 mg/dL (65-115); Magnesium 2.1 mg/dL (1.7-2.3); Osmolality Calculated 278 mOsm/kg (285-295); Phosphorus 3.8 mg/dL (2.5-4.5); Potassium 4.3 mmol/L (3.5-5.1); Sodium 133 mmol/L (136-145); Total Bilirubin 0.5 mg/dL (0.15-1.2)
[2024-03-22 07:37] VITALS: BP 112/65; PULSE 88; RESP 18; TEMP 36.6; O2SAT 96
[2024-03-22] MEDS: escitalopram 10 mg Tablet 20 MG PO (09:11)
[2024-03-22] MEDS: carbidopa-levodopa 25-100mg Tablet 1 EACH PO (09:11)
[2024-03-22] MEDS: levothyroxine 50 mcg Tablet PO (09:11)
[2024-03-22] MEDS: clopidogrel 75 mg Tablet PO (09:11)
[2024-03-22] MEDS: pantoprazole DR 40 mg Tablet PO (09:11)
[2024-03-22] MEDS: b-complex-vitamin c Tablet 1 EACH PO (09:11)
[2024-03-22] MEDS: mupirocin oint 22 gm 1 APPLIC TOPICAL ×2 (09:12→17:09)
[2024-03-22] MEDS: clotrimazole 1% cream 30 gm 1 APPLIC TOPICAL ×2 (09:12→17:09)
[2024-03-22] MEDS: nystatin powder 15 gm Btl 1 APPLIC TOPICAL ×3 (09:12→22:57)
[2024-03-22] MEDS: fluconazole 100 mg Tablet PO (09:13)
[2024-03-22 10:25] LABS: ABG PH Result 7.36 (7.35-7.45); Arterial Blood Gas Hematocrit 27.9 % (37-47); Blood Gas Operator Identificat GD; Blood Gas Sample Site Brachial, left; Blood Gas Sample Type Venous; Carboxyhemoglobin 1.1 %THgb (0.4-20.1); HCO3 ABG 33.7 mmol/L (22-26); HGB O2 Sat 15.3 % (95-100); Ionized Calcium Level - ABG 1.2 mmol/L (1.1-1.4); Methemoglobin 1.2 % (0.4-1.5); Oxygen Device NC; Oxygen Saturation ABG 15.7; PO2 FiO2 Ratio Arterial Blood 60; Potassium Level - ABG 4.3 mmol/L (3.5-5.0); Total Hemoglobin 9.1 g/dL (12-16)
--- NOTE | 2024-03-22 10:26 | PC.RESP ---
Dr. Hernandez called about venous abg results. He stated the results were ok and to keep abg.
[2024-03-22 11:18] VITALS: BP 156/90; PULSE 101; RESP 16; TEMP 36.4; O2SAT 98
--- NOTE | 2024-03-22 11:31 | P.PN_ITS ---
Subjective 2 Subjective: Patient was seen and examined. She is weak and lethargic not able to answer appropriately. More confused than yesterday. More SOB on Medications: Reviewed: Yes Medication Review Details: Current Medications Atorvastatin Calcium (Atorvastatin 40 Mg Tablet) 80 mg PO BEDTIME [facility] Last Admin: 03/21/24 21:55 Dose: 80 mg Carbidopa/Levodopa (Carbidopa-Levodopa 25-100mg Tablet) 1 each PO DAILY [facility] Last Admin: 03/22/24 09:11 Dose: 1 each Clopidogrel Bisulfate (Clopidogrel 75 Mg Tablet) 75 mg PO DAILY [facility] Last Admin: 03/22/24 09:11 Dose: 75 mg Clotrimazole (Clotrimazole 1% Cream 30 Gm) 1 applic TOPICAL BID [facility] Last Admin: 03/22/24 09:12 Dose: 1 applic Cyclobenzaprine HCl (Cyclobenzaprine 10 Mg Tablet) 10 mg PO Q8H PRN PRN Reason: MUSCLE SPASMS Last Admin: 03/21/24 09:47 Dose: 10 mg Enoxaparin Sodium (Enoxaparin 30 Mg/0.3 Ml Syringe) 30 mg SUBCUT Q24H [facility] Last Admin: 03/21/24 17:17 Dose: 30 mg Epoetin Bandar-epbx (Epoetin Bandar-Epbx 10,000 Unit/Ml Sdv (Esrd)) 5,000 unit SUBCUT DIALYSIS [facility] Last Admin: 03/20/24 16:39 Dose: Not Given Escitalopram Oxalate (Escitalopram 10 Mg Tablet) 20 mg PO DAILY [facility] Last Admin: 03/22/24 09:11 Dose: 20 mg Fluconazole (Fluconazole 100 Mg Tablet) 100 mg PO DAILY [facility] Last Admin: 03/22/24 09:13 Dose: 100 mg Glucagon (Glucagon 1 Mg/Ml Kit 1 Ml) 1 mg IM ONCE PRN; Protocol PRN Reason: Adult Acute Hypoglycemia Nursing Prot. Dextrose (D5w) 500 mls @ 0 mls/hr IV ONCE PRN; Protocol PRN Reason: Adult Acute Hypoglycemia Prot Dextrose (D10w) 125 mls @ 750 mls/hr IV PRN PRN; Protocol PRN Reason: Adult Acute Hypoglycemia Nursing Protocol Dextrose (D10w) 250 mls @ 1,000 mls/hr IV PRN PRN; Protocol PRN Reason: Adult Acute Hypoglycemia Nursing Protocol Sodium Chloride (Sodium Chloride 0.9%) 1,000 mls @ 0 mls/hr IV .Q0M PRN PRN Reason: hypotension or symptomatic Albumin Human (Albumin) 12.5 gm in 50 mls @ 60 mls/hr IV PRN PRN PRN Reason: Hypotension and/or symptomatic Insulin Human Lispro (Insulin Lispro 100 Unit/1 Ml) 0 unit SUBCUT WM&BEDTIME [facility]; Protocol Last Admin: 03/20/24 16:40 Dose: Not Given Levothyroxine Sodium (Levothyroxine 50 Mcg Tablet) 50 mcg PO DAILY [facility] Last Admin: 03/22/24 09:11 Dose: 50 mcg Metoprolol Tartrate (Metoprolol Tartrate 50 Mg Tablet) 50 mg PO DAILY [facility] Last Admin: 03/15/24 13:05 Dose: 50 mg Midodrine (Midodrine 5 Mg Tablet) 10 mg PO DIALYSIS [facility] Multivitamins (X-Eokpwrr-Fmsvlyr C Tablet) 1 each PO DAILY [facility] Last Admin: 03/22/24 09:11 Dose: 1 each Mupirocin (Mupirocin Oint 22 Gm) 1 applic TOPICAL BID [facility] Last Admin: 03/22/24 09:12 Dose: 1 applic Naloxone HCl (Naloxone 0.4 Mg/Ml Sdv) 0.1 mg IVP Q2M PRN PRN Reason: OPIATERV Nystatin (Nystatin Powder 15 Gm Btl) 1 applic TOPICAL TID [facility] Last Admin: 03/22/24 09:12 Dose: 1 applic Ondansetron HCl (Ondansetron 2 Mg/Ml Sdv 2 Ml) 4 mg IVP Q8H PRN PRN Reason: vomiting, or N/V if npo Last Admin: 03/17/24 10:26 Dose: 4 mg Pantoprazole Sodium (Pantoprazole Dr 40 Mg Tablet) 40 mg PO DAILY [facility] Last Admin: 03/22/24 09:11 Dose: 40 mg Ropinirole HCl (Ropinirole 0.25 Mg Tablet) 0.5 mg PO QPM [facility] Last Admin: 03/21/24 17:18 Dose: 0.5 mg Tramadol HCl (Tramadol 50 Mg Tablet) 50 mg PO Q12H PRN PRN Reason: MODERATE PAIN Vitals/I&O/Wt Last Vital Signs Temp 97.9 F 03/22/24 07:37 Pulse 88 03/22/24 07:37 Resp 18 03/22/24 07:37 BP 112/65 03/22/24 07:37 Pulse Ox 96 03/22/24 07:37 O2 Del Method Nasal Cannula 03/22/24 07:37 O2 Flow Rate 2 03/22/24 07:37 03/21/24 03/22/24 03/22/24 22:59 06:59 14:59 Intake Total 120 / 540 0 / 540 Balance 120 / 540 0 / 540 Weight last 48 hrs Weight 87.453 kg Weight 87.317 kg Weight 92.3 kg Physical Exam 2 Narrative: Vital signs noted. afebrile, lethargic in bed HEENT normocephalic atraumatic. Neck is supple. Lungs have dull bases, and poor air movement b/l Heart regular positive S1-S2. Abdomen is soft superficial tenderness to touch by cellulitis. Positive bowel sounds. sacral decubitus per nurse Extremities legs + b/l edema Neuro she isconfused and lethargic RUE AVF w/ thrill and bruit. Data 03/22/24 05:33 03/22/24 05:33 A&P Assessment and plan (1) End stage renal disease on dialysis: 58-year-old lady, obesity, type 2 diabetes, hyperlipidemia, hypertension. 1. Abdominal wall cellulitis renal dose antibiotics as per Dr. Andrews 1b. lethargic- pCO2 of 60- consider bipap 2. ESRD dialysis today. she is malina Tuesday and Tuesday schedule. 3. hyponatremia and hyperkalemia- improving w/ dialysis 4. Blood pressure low off meds. midodrine for hd 5. Anemia - iron sat 33% ferritin 1362 give rosemary. no iron 6. Calcium normal. albumin of 2.6. pth 69.4- no vit d analouges In the past her PTH RP was 62. repeat is pending. Medications reviewed. keep vanco trough under 19 Patient was seen and examined with the aid of A/V equipment and the nurse examining the patient. Plan See above. HD TTS. consider bipap Attestations 2 Medical Necessity Statement*: per hospitalis. she has ESRD, hypercapneic resp acidosis Time Spent in Patient Care: 16 - 35 minutes (>than 50% of time sp ent in counselling and/or direct pt care on unit) . Coding Level of Care Code Acute Code for Chg Fwd Diagnoses End stage renal disease on dialysis N18.6; Z99.2
[2024-03-22 11:38] LABS: Glucose Point of Care 90 mg/dL (70-110)
--- NOTE | 2024-03-22 12:30 | PM.PN ---
Subjective Subjective: rachel was lethargic on waking up this am however more awake and alert as the day has progressed. At the time of this assessment she is awake, alert , sitting in a chair by bedside, able to have a full coherent conversation. She is self feeding. no episodes of hypoglycemia today Medications: Reviewed: Yes Medication Review Details: Current Medications Atorvastatin Calcium (Atorvastatin 40 Mg Tablet) 80 mg PO BEDTIME [facility] Last Admin: 03/21/24 21:55 Dose: 80 mg Carbidopa/Levodopa (Carbidopa-Levodopa 25-100mg Tablet) 1 each PO DAILY JAMIE Last Admin: 03/22/24 09:11 Dose: 1 each Clopidogrel Bisulfate (Clopidogrel 75 Mg Tablet) 75 mg PO DAILY [facility] Last Admin: 03/22/24 09:11 Dose: 75 mg Clotrimazole (Clotrimazole 1% Cream 30 Gm) 1 applic TOPICAL BID [facility] Last Admin: 03/22/24 09:12 Dose: 1 applic Cyclobenzaprine HCl (Cyclobenzaprine 10 Mg Tablet) 10 mg PO Q8H PRN PRN Reason: MUSCLE SPASMS Last Admin: 03/21/24 09:47 Dose: 10 mg Enoxaparin Sodium (Enoxaparin 30 Mg/0.3 Ml Syringe) 30 mg SUBCUT Q24H [facility] Last Admin: 03/21/24 17:17 Dose: 30 mg Epoetin Bandar-epbx (Epoetin Bandar-Epbx 10,000 Unit/Ml Sdv (Esrd)) 5,000 unit SUBCUT DIALYSIS [facility] Last Admin: 03/20/24 16:39 Dose: Not Given Escitalopram Oxalate (Escitalopram 10 Mg Tablet) 20 mg PO DAILY [facility] Last Admin: 03/22/24 09:11 Dose: 20 mg Fluconazole (Fluconazole 100 Mg Tablet) 100 mg PO DAILY [facility] Last Admin: 03/22/24 09:13 Dose: 100 mg Glucagon (Glucagon 1 Mg/Ml Kit 1 Ml) 1 mg IM ONCE PRN; Protocol PRN Reason: Adult Acute Hypoglycemia Nursing Prot. Dextrose (D5w) 500 mls @ 0 mls/hr IV ONCE PRN; Protocol PRN Reason: Adult Acute Hypoglycemia Prot Dextrose (D10w) 125 mls @ 750 mls/hr IV PRN PRN; Protocol PRN Reason: Adult Acute Hypoglycemia Nursing Protocol Dextrose (D10w) 250 mls @ 1,000 mls/hr IV PRN PRN; Protocol PRN Reason: Adult Acute Hypoglycemia Nursing Protocol Sodium Chloride (Sodium Chloride 0.9%) 1,000 mls @ 0 mls/hr IV .Q0M PRN PRN Reason: hypotension or symptomatic Albumin Human (Albumin) 12.5 gm in 50 mls @ 60 mls/hr IV PRN PRN PRN Reason: Hypotension and/or symptomatic Insulin Human Lispro (Insulin Lispro 100 Unit/1 Ml) 0 unit SUBCUT WM&BEDTIME [facility]; Protocol Last Admin: 03/20/24 16:40 Dose: Not Given Levothyroxine Sodium (Levothyroxine 50 Mcg Tablet) 50 mcg PO DAILY [facility] Last Admin: 03/22/24 09:11 Dose: 50 mcg Metoprolol Tartrate (Metoprolol Tartrate 50 Mg Tablet) 50 mg PO DAILY [facility] Last Admin: 03/15/24 13:05 Dose: 50 mg Midodrine (Midodrine 5 Mg Tablet) 10 mg PO DIALYSIS [facility] Multivitamins (P-Nwicvlr-Njwmikz C Tablet) 1 each PO DAILY [facility] Last Admin: 03/22/24 09:11 Dose: 1 each Mupirocin (Mupirocin Oint 22 Gm) 1 applic TOPICAL BID [facility] Last Admin: 03/22/24 09:12 Dose: 1 applic Naloxone HCl (Naloxone 0.4 Mg/Ml Sdv) 0.1 mg IVP Q2M PRN PRN Reason: OPIATERV Nystatin (Nystatin Powder 15 Gm Btl) 1 applic TOPICAL TID [facility] Last Admin: 03/22/24 09:12 Dose: 1 applic Ondansetron HCl (Ondansetron 2 Mg/Ml Sdv 2 Ml) 4 mg IVP Q8H PRN PRN Reason: vomiting, or N/V if npo Last Admin: 03/17/24 10:26 Dose: 4 mg Pantoprazole Sodium (Pantoprazole Dr 40 Mg Tablet) 40 mg PO DAILY [facility] Last Admin: 03/22/24 09:11 Dose: 40 mg Ropinirole HCl (Ropinirole 0.25 Mg Tablet) 0.5 mg PO QPM [facility] Last Admin: 03/21/24 17:18 Dose: 0.5 mg Tramadol HCl (Tramadol 50 Mg Tablet) 50 mg PO Q12H PRN PRN Reason: MODERATE PAIN Vitals/I&O/Wt Last Vital Signs Temp 97.4 F L 03/22/24 16:00 Pulse 93 03/22/24 16:00 Resp 16 03/22/24 16:00 BP 156/74 03/22/24 16:00 Pulse Ox 100 03/22/24 16:00 O2 Del Method Nasal Cannula 03/22/24 16:00 O2 Flow Rate 2 03/22/24 16:00 03/22/24 03/22/24 03/23/24 14:59 22:59 06:59 Intake Total 236 / 236 240 / 476 Balance 236 / 236 240 / 476 Weight last 48 hrs Weight 87.453 kg Weight 87.317 kg Physical Exam Narrative: General: No acute distress, AO x3, appears older than stated age HEENT: PERRLA, pupils bilaterally equal and reactive, pallors not present Chest: Normal vesicular breath sounds, no added sounds, equal good air entry bilaterally CVS: S1-S2 regular, no murmurs, no tachycardia, no gallops, no rubs Abdomen: Soft, nontender, no organomegaly, bowel sounds present Extremities: Candidiasis affecting bilateral groin folds with overlying cellulitis. Overall appears to be improving. Data 03/22/24 05:33 03/22/24 05:33 A&P Assessment and plan (1) Altered mental status: (2) Abdominal wall cellulitis: (3) T2DM (type 2 diabetes mellitus): Qualifiers: Diabetes mellitus rodent exterminator insulin use: without rodent exterminator use Diabetes mellitus complication status: with circulatory complication Diabetes mellitus complication detail: with other circulatory complications Qualified Code(s): E11.59 - Type 2 diabetes mellitus with other circulatory complications (4) Hyperlipidemia: (5) Dyslipidemia: (6) Benign essential HTN: Plan Altered mental status, metabolic and toxic encephalopathy -Etiology resolving -Blood sugar reasonable -Has a history of ESBL E. coli UTI -She has global encephalopathy, I cannot discern a facial droop no slurring of words, no focal weakness that I could discern but it is hard to do neurologic testing given her global encephalopathy -Will do a CT of her head -Urine cultures -Blood cultures -Urine toxicology screen -Start vancomycin -Start meropenem Soft blood pressures ? Lactic acid # Likely secondary to dialysis # Hold p.o. blood pressure medications Abdominal wall cellulitis, -Vancomycin -Meropenem -Keep area clean and dry, continue dry dressing changes -Nystatin powder -Has features of candidiasis skin infection, start IV Diflucan, topical nystatin, keep area clean and dry End-stage renal disease on dialysis, consult nephrology for dialysis, dialysis days Tuesday Acute on chronic anemia Type 2 diabetes mellitus, start low-dose sliding scale History of CHF, not in exacerbation, monitor Fluid overload, receiving dialysis today Full code Lovenox for DVT prophylaxis Continues to have altered mental status this morning, lactic acid, ABG, placed in Trendelenburg, low for permissive hypertension, hold p.o. blood pressure medications, awaiting head CT results, continue IV antibiotics for cellulitis, continue IV Diflucan for candidiasis skin infection 03/17/2024. Mentation is better today. Patient is sitting up independently in the bed, self-feeding. States she feels better however is complaining of pain in the back. Awaiting CT of the pelvis today to assess for underlying sacral osteomyelitis. In the interim continue IV antibiotics, awaiting blood and urine cultures. 03/18/2024 Patient is awake alert oriented. Able to have a full conversation today. CT of the pelvis negative for any underlying osteomyelitis. Shows skin thickening and cellulitic changes. Discontinue IV fluconazole and switch to oral fluconazole 100 mg p.o. daily. Reduce dose of meropenem to 500 mg IV every 24 hours. Check MRSA screen. If negative discontinue vancomycin. Overall patient is clinically improving. Anticipate discharge in the upcoming 24 hours if continues to show clinical improvement. 03/19/2024 No acute interim events. Patient feels much better today. Cellulitis about the same. Continue oral fluconazole and IV meropenem given that patient is colonized with ESBL E. coli. Interdry to be placed in the groin folds. Patient overall clinically better, stable for discharge, however awaiting appropriate disposition planning. 03/20/2024 No acute interim events. Getting dialyzed today. Afebrile hemodynamically stable. Hypoglycemic this morning with blood sugar down to 58. Thereafter improved between 79-81.Last HbA1c reviewed from this admission at 5.4. Patient received 4 units of insulin at 10 PM overnight per low-dose sliding scale. Will discontinue all insulin for now. Hemoglobin stable. Gets erythropoietin at dialysis. Rash continues to heal. Interdry has been placed. Continue oral fluconazole. Add clotrimazole and mupirocin for local application. Will aim to discontinue meropenem after 7-day course for skin and soft tissue infection. 03/21/24: Blood sugar better today, no further hypoglcemia, no acute interim events. Pain control not optimal, ordered for prn morhine however appeared to be getting lethargic in HD, therefore discontinued. Rash appears to be unchanged over yesterday. improved since admission, continue meropenem, to complete 7 day empriic course. 03/22/24 : awake and alert this afternoon. ABG WNL, d/c meropenem today, cellulitis improving. change clotrimazole to clotrimazole- hydrocortisone. ongoing disposition planning Attestations Medical Necessity Statement*: appropriate disposition planning Coding Level of Care Code Acute Code for [facility] Fwd Diagnoses Altered mental status R41.82 Abdominal wall cellulitis L03.311 Type 2 diabetes mellitus with other circulatory complication, without long-term current use of insulin E11.59 Diabetes mellitus rodent exterminator insulin use: without group home use Diabetes mellitus complication status: with circulatory complication Diabetes mellitus complication detail: with other circulatory complications Hyperlipidemia E78.5 Dyslipidemia E78.5 Benign essential HTN I10
[2024-03-22 12:50] LABS: ABG PCO2 41.7 mmHg (35-45); ABG PH Result 7.45 (7.35-7.45); Arterial Blood Gas Hematocrit 30.9 % (37-47); Base Excess ABG 4.2 mmol/L (-2.0-2.0); Blood Gas Operator Identificat GD; Blood Gas Sample Site Brachial, left; Blood Gas Sample Type Arterial; HCO3 ABG 28.7 mmol/L (22-26); Oxygen Device NC; PO2 FiO2 Ratio Arterial Blood 450
[2024-03-22 13:08] LABS: Blood Gas Drawn By GD
[2024-03-22 14:00] VITALS: PULSE 60
[2024-03-22] MEDS: TRAMadol 50 mg Tablet PO (14:36)
[2024-03-22 16:00] VITALS: BP 156/74; PULSE 93; RESP 16; TEMP 36.3; O2SAT 100
[2024-03-22] MEDS: cyclobenzaprine 10 mg Tablet PO (17:06)
[2024-03-22 17:54] LABS: Glucose Point of Care 107 mg/dL (70-110)
[2024-03-22] MEDS: midodrine 5 mg TABLET 10 MG PO (18:15)
[2024-03-22] MEDS: enoxaparin 30 mg/0.3 mL Syringe SUBCUT (18:39)
[2024-03-22] MEDS: EPOETIN ALFA-EPBX 10,000 UNIT/ML SDV (ESRD) 5000 UNIT SUBCUT (19:41)
[2024-03-22] MEDS: heparin, porcine 1,000 unit/mL INJ 10 mL 10000 UNIT HE (20:15)
[2024-03-22 22:30] VITALS: BP 113/48; BP 124/47; PULSE 100; PULSE 98; RESP 18; TEMP 36.5
[2024-03-22] MEDS: atorvastatin 40 mg Tablet 80 MG PO (22:56)
[2024-03-22] MEDS: ropinirole 0.25 mg Tablet 0.5 MG PO (22:56)
[2024-03-23] VITALS: BP 105/56; PULSE 99; RESP 18; TEMP 36.7; O2SAT 100
[2024-03-23 04:00] VITALS: BP 104/65; PULSE 77; RESP 16; TEMP 36.5; O2SAT 98
[2024-03-23 06:39] LABS: Glucose Point of Care 88 mg/dL (70-110)
[2024-03-23 08:00] VITALS: BP 108/67; PULSE 94; RESP 16; TEMP 36.8; O2SAT 96
[2024-03-23] MEDS: clopidogrel 75 mg Tablet PO (09:37)
[2024-03-23] MEDS: carbidopa-levodopa 25-100mg Tablet 1 EACH PO (09:37)
[2024-03-23] MEDS: fluconazole 100 mg Tablet PO (09:37)
[2024-03-23] MEDS: escitalopram 10 mg Tablet 20 MG PO (09:37)
[2024-03-23] MEDS: b-complex-vitamin c Tablet 1 EACH PO (09:37)
[2024-03-23] MEDS: levothyroxine 50 mcg Tablet PO (09:37)
[2024-03-23] MEDS: pantoprazole DR 40 mg Tablet PO (09:37)
[2024-03-23] MEDS: mupirocin oint 22 gm 1 APPLIC TOPICAL (09:38)
[2024-03-23] MEDS: nystatin powder 15 gm Btl 1 APPLIC TOPICAL (09:38)
[2024-03-23] MEDS: clotrimazole 1% cream 30 gm 1 APPLIC TOPICAL (09:38)
[2024-03-23 11:19] LABS: Glucose Point of Care > 600 mg/dL (70-110)
[2024-03-23 11:19] LABS: Glucose Point of Care 147 mg/dL (70-110)
--- NOTE | 2024-03-23 11:20 | P.PN_ITS ---
Subjective 2 Subjective: no new complaints Medications: Reviewed: Yes Vitals/I&O/Wt Last Vital Signs Temp 98.3 F 03/23/24 08:00 Pulse 94 03/23/24 08:00 Resp 16 03/23/24 08:00 BP 108/67 03/23/24 08:00 Pulse Ox 96 03/23/24 08:00 O2 Del Method Nasal Cannula 03/23/24 08:00 O2 Flow Rate 2 03/22/24 16:00 03/22/24 03/23/24 03/23/24 22:59 06:59 14:59 Intake Total 740 / 976 240 / 240 Output Total 1701 / 1701 Balance -961 / -725 240 / 240 Weight last 48 hrs Weight 91.716 kg Weight 91.762 kg Weight 87.453 kg Physical Exam 2 Narrative: Vital signs noted. afebrile, lethargic in bed HEENT normocephalic atraumatic. Neck is supple. Lungs have dull bases, and poor air movement b/l Heart regular positive S1-S2. Abdomen is soft superficial tenderness to touch by cellulitis. Positive bowel sounds. sacral decubitus per nurse Extremities legs + b/l edema Neuro she isconfused and lethargic RUE AVF w/ thrill and bruit. Data 03/22/24 05:33 03/22/24 05:33 A&P Assessment and plan (1) End stage renal disease on dialysis: 58-year-old lady, obesity, type 2 diabetes, hyperlipidemia, hypertension. 1. Abdominal wall cellulitis renal dose antibiotics as per Dr. Andrews 1b. lethargic- pCO2 of 60- consider bipap 2. ESRD - she is on Tuesday and Tuesday schedule. 3. hyponatremia and hyperkalemia- improving w/ dialysis 4. Blood pressure low off meds. midodrine for hd 5. Anemia - iron sat 33% ferritin 1362 give rosemary. no iron 6. Calcium normal. albumin of 2.6. pth 69.4- no vit d analouges In the past her PTH RP was 62. repeat is pending. Medications reviewed. keep vanco trough under 19 Patient was seen and examined with the aid of A/V equipment and the nurse examining the patient. Plan See above. HD TTS. consider bipap Attestations 2 Medical Necessity Statement*: per mandeep Coding Level of Care Code Acute Code for [facility] Fwd Diagnoses End stage renal disease on dialysis N18.6; Z99.2
[2024-03-23 11:47] VITALS: BP 109/59; PULSE 68; RESP 16; TEMP 36.7; O2SAT 93
--- NOTE | 2024-03-23 12:34 | PC.SOCIAL ---
IMM Updated Updated pt on IMM. No questions voiced. Provided pt a copy. Initialed, dated, & timed copy in chart.
[2024-03-23 13:23] LABS: SARS Covid-2 Antigen negative (Negative)
--- NOTE | 2024-03-23 13:35 | PC.OT ---
OT treatment session attempted with pt very lethargic and unable to remain alert; will attempt again at later time.
--- NOTE | 2024-03-23 14:03 | PC.NURSE ---
Attempted to call report to [facility] multiple times. Goes to voicemail each time.
--- NOTE | 2024-03-23 15:53 | PM.DCS ---
Discharge Providers Date of Admission: 03/15/24 08:05 Date of Discharge: March 23, 2024 Attending Provider at Admission: Basil Siddiqui MD Attending Provider at Discharge: Yolanda Andrews MD Primary Care Provider: Vivienne Schulz MD Diagnoses at Discharge Discharge Diagnosis (1) End stage renal disease on dialysis: Status: Acute (2) Abdominal wall cellulitis: Status: Acute (3) Rheumatoid arthritis: Status: Acute Qualifiers: Rheumatoid arthritis location: unspecified site Rheumatoid factor presence: unspecified presence Qualified Code(s): M06.9 - Rheumatoid arthritis, unspecified Reason for Visit Reason for Visit: Cellulitis Hospital Course Hospital Course francis Kaiser is a 58 year old female with a past medical history of restless leg syndrome, history of CVA, thrombus, history of renal disease on dialysis, hypothyroidism, cognitive impairment, history of abdominal wall cellulitis, panniculitis, seen by wound care, receiving debridement presented to [facility] due to worsening area of cellulitis, erythema, panniculitis around pannus. She was found to have global encephalopathy upon presentation without any focal motor deficits. CT of the head had shown encephalomalacia/gliosis in the right parieto-occipital region with extensive dystrophic calcifications within the brain parenchyma. Overall the appearance was unchanged compared to February 20, 2024. This likely correlated with old infarct in the right parieto-occipital region. No acute intracranial pathology was noted. Blood culture was negative. She did not urinate significantly related to her CKD therefore UA with urine culture was not available. From December 2023 she had ESBL E. coli on urine cultures. For her abdominal wall cellulitis and panniculitis she received empiric antibiotic treatment with meropenem between 03/14/2024 to 03/22/2024. Additionally she received vancomycin between 03/14/2024 to 03/18/2024. Vancomycin was discontinued once MRSA screen was negative. Patient was noted to have a sacral decubitus ulcer, please see nursing note for description of the wound. CT of the abdomen and pelvis was performed to evaluate for underlying osteomyelitis, study was negative for the same. She also received fluconazole 100 mg p.o. daily for treatment of crural candidiasis. Her rash in bilateral groin folds and under the breast improved with these interventions. She is recommended to continue local treatment with clotrimazole ointment, mupirocin ointment, Interdry placement in the groin folds as outpatient. Continued follow-up with wound care is recommended. She received dialysis on her schedule days. Her mental status improved significantly during the course of this admission. She was alert awake and oriented. Self feeds. Able to sit in chair for prolonged time, however does need help with ambulation. She was intermittently somnolent during multiple occasions during the day where she was hard to awaken. However a few hours later she would be completely awake alert and oriented. Increased daytime somnolence may be related to underlying sleep apnea, and outpatient sleep study is recommended and has been ordered. She may need a CPAP. ABG was performed most recently on March 22, 2024 and was within normal limits with a pH of 7.45/pCO2 of 41.7/CO2 of 126/HCO3 of 28.7. Previously seen blood gas in the system from 03/22/2024 with a pCO2 of 60 was a venous blood gas and as such has not been considered for evidence of hypercapnia. Patient did receive a few doses of morphine for pain management. She reports generalized aches and pains, however this was eventually discontinued in case contributing to the daytime intermittent somnolence. Tramadol has been prescribed at discharge for pain management instead. Patient is listed as being diabetic previously, however most recent A1c was at 5.4. Insulin has been discontinued at the time of discharge. Additionally patient was noted to be becoming hypotensive with her home doses of amlodipine and metoprolol therefore these have been discontinued at discharge. Midodrine has been added prior to dialysis. Patient is being discharged in improved condition to SNF. Physical Exam Narrative: General: No acute distress, AO x3 HEENT: PERRLA, pupils bilaterally equal and reactive, pallors not present Chest: Normal vesicular breath sounds, no added sounds, equal good air entry bilaterally CVS: S1-S2 regular, no murmurs, no tachycardia, no gallops, no rubs Abdomen: Soft, nontender, no organomegaly, bowel sounds present Neuro: No focal deficits, no facial deformity, AO x3, power 5/5 in all limbs Discharge Data Studies Completed and Pending Completed Studies During Hospitalization Category Date Time Status CT head wo con* [id number] Routine Cat Scan 03/15/24 12:[address] pelvis wo con [id number] Routine Cat Scan 03/16/24 06:45 Completed Pending at discharge Category Date Time Status Drug Screen, Urine Routine Lab 03/14/24 17:28 Uncollected PTH Related Peptide (Protein) Routine Lab 03/18/24 10:50 Received Urinalysis Routine Lab 03/14/24 16:11 Uncollected Urine Culture Stat Lab 03/14/24 17:18 Uncollected Radiology Impressions Pelvis CT 03/16/24 06:45 IMPRESSION: 1. Skin thickening and induration overlying the lower sacrum and coccyx. However, no definite abscess is seen. 2. Similar body wall edema with areas of induration involving the pelvic wall and bilateral thighs. As before, findings may represent multifocal cellulitis. Laboratory Results WBC 5.95 10^3/uL (3.29-11.43) 03/22/24 05:33 RBC 2.82 10^6/uL (3.85-5.65) L 03/22/24 05:33 Hgb 8.30 g/dL (11.27-16.99) L 03/22/24 05:33 Hct 27.9 % (36-47) L 03/22/24 05:33 MCV 98.9 fl (85-98) H 03/22/24 05:33 MCH 29.4 pg (27-33) 03/22/24 05:33 MCHC 29.7 g/dL (30-55) L 03/22/24 05:33 RDW 17.9 % (12.1-15.1) H 03/22/24 05:33 Plt Count 274 10^3/cmm (157-399) 03/22/24 05:33 MPV 10.3 fL (7.4-10.4) 03/22/24 05:33 Neut % (Auto) 78.4 % 03/22/24 05:33 Lymph % (Auto) 9.9 % 03/22/24 05:33 Crisp % (Auto) 10.9 % 03/22/24 05:33 Eos % (Auto) 0.0 % 03/22/24 05:33 Baso % (Auto) 0.3 % 03/22/24 05:33 Neut # (Auto) 4.66 10^3/uL (1.8-7.7) 03/22/24 05:33 Lymph # (Auto) 0.6 10^3/uL (0.8-4.8) L 03/22/24 05:33 Crisp # (Auto) 0.7 10^3/uL (0.2-0.9) 03/22/24 05:33 Eos # (Auto) 0.0 10^3/uL (0.0-0.8) 03/22/24 05:33 Baso # (Auto) 0.0 10^3/uL (0.0-0.1) 03/22/24 05:33 Nucleated RBC % (auto) 0 % 03/22/24 05:33 Nucleated RBCs # 0.0 /100WBC 03/22/24 05:33 PT 19.40 SECONDS (12.1-14.9) H 03/14/24 16:40 INR 1.57 (0.8-1.2) H 03/14/24 16:40 Specimen Type Arterial 03/22/24 12:35 Sample Site Brachial, left 03/22/24 12:35 ABG pH 7.45 (7.35-7.45) 03/22/24 12:35 ABG pCO2 41.7 mmHg (35-45) 03/22/24 12:35 ABG pO2 126.0 mmHg (80.0-100.0) H 03/22/24 12:35 ABG PO2/FiO2 Ratio 450 03/22/24 12:35 ABG HCO3 28.7 mmol/L (22-26) H 03/22/24 12:35 ABG O2 Saturation 15.7 03/22/24 10:10 ABG Base Excess 4.2 mmol/L (-2.0-2.0) H 03/22/24 12:35 Marquis Test N/a 03/22/24 12:35 A-a O2 Gradient Not Reportable 03/22/24 10:10 Hematocrit 30.9 % (37-47) L 03/22/24 12:35 Hgb O2 Saturation 15.3 % (95-100) L 03/22/24 10:10 Carboxyhemoglobin 1.1 %THgb (0.4-20.1) 03/22/24 10:10 Methemoglobin 1.2 % (0.4-1.5) 03/22/24 10:10 Total Hemoglobin 9.1 g/dL (12-16) L 03/22/24 10:10 Sodium 135.0 mmol/L (131-143) 03/22/24 10:10 Potassium 4.3 mmol/L (3.5-5.0) 03/22/24 10:10 Glucose 88.0 mg/dL (70-115) 03/22/24 10:10 Ionized Calcium 1.2 mmol/L (1.1-1.4) 03/22/24 10:10 O2 Delivery Device Nc 03/22/24 12:35 O2 Liters/Min 2.0 % 03/22/24 12:35 FiO2 28.0 % 03/22/24 12:35 Specimen Drawn By Gd 03/22/24 10:10 Cell Repairer ID Gd 03/22/24 12:35 Sodium 133 mmol/L (136-145) L 03/22/24 05:33 Potassium 4.3 mmol/L (3.5-5.1) 03/22/24 05:33 Chloride 95 mmol/L (98-107) L 03/22/24 05:33 Carbon Dioxide 26 mmol/L (22-29) 03/22/24 05:33 Anion Gap 16.3 (5-19) 03/22/24 05:33 BUN 18 mg/dL (6-20) 03/22/24 05:33 Creatinine 3.4 mg/dL (0.5-0.9) H 03/22/24 05:33 GFR Calculation 13.8 mL/min (90-130) L 03/22/24 05:33 Glucose 102 mg/dL (65-115) 03/22/24 05:33 POC Glucose 147 mg/dL (70-110) H 03/23/24 10:56 Estimat Average Glucose 108 03/14/24 16:40 Hemoglobin A1c 5.4 % (4.0-6.0) 03/14/24 16:40 Calculated Osmolality 278 mOsm/kg (285-295) L 03/22/24 05:33 Lactic Acid 1.3 mmol/L (0.5-2.2) 03/16/24 07:55 Uric Acid 3.1 mg/dL (2.4-5.7) 03/18/24 06:00 Calcium 8.8 mg/dL (8.5-10.5) 03/22/24 05:33 Phosphorus 3.8 mg/dL (2.5-4.5) 03/22/24 05:33 Magnesium 2.1 mg/dL (1.7-2.3) 03/22/24 05:33 Iron 30 ug/dL (37-145) L 03/20/24 04:30 TIBC 91 mcg/dl 03/20/24 04:30 % Saturation 32.9 % (20-50) 03/20/24 04:30 Unsat Iron Binding 61 ug/dL (112-347) L 03/20/24 04:30 Ferritin 1362 ng/mL (15-150) H 03/20/24 04:30 Total Bilirubin 0.5 mg/dL (0.15-1.2) 03/22/24 05:33 AST 18 U/L (0-32) 03/22/24 05:33 ALT < 5 U/L (0-33) 03/22/24 05:33 Alkaline Phosphatase 93 U/L (35-105) 03/22/24 05:33 Troponin T Baseline 67 ng/L (0-10) H 03/14/24 16:40 Troponin T 120 Minute 66.29 ng/L (0-10) H 03/14/24 19:29 Delta Troponin T -0.71 ABS# (0-10) L 03/14/24 19:29 Troponin T Hi Sens 6Hr 68.65 ng/L (0-10) H 03/14/24 22:36 Troponin T Hi Sens 6Hr Delta 1.65 ng/L (0-12) 03/14/24 22:36 C-Reactive Protein 186.9 mg/L (0.0-4.9) H 03/18/24 06:00 NT-Pro-B Natriuret Pep 60538 pg/mL (0-125) H 03/14/24 16:40 Total Protein 6.0 g/dL (6.6-8.7) L 03/22/24 05:33 Albumin 2.4 g/dL (3.5-5.2) L 03/22/24 05:33 Globulin 3.6 g/dL (1.3-4.6) 03/22/24 05:33 Triglycerides 66 mg/dL (0-150) 03/14/24 16:40 Cholesterol 82 mg/dL (0-200) 03/14/24 16:40 LDL Cholesterol, Calc 33 mg/dL (50-129) L 03/14/24 16:40 HDL Cholesterol 36 mg/dL (60-100) L 03/14/24 16:40 LDL/HDL Ratio 0.92 RATIO (0.00-3.22) 03/14/24 16:40 Cholesterol/HDL Ratio 2.28 mg/dL (0.0-4.40) 03/14/24 16:40 25-OH Vitamin D Total 36 ng/mL (30-100) 03/20/24 04:30 Procalcitonin 1.48 ng/mL (0-0.5) H 03/18/24 06:00 TSH 4.30 uIU/mL (0.27-4.20) H 03/14/24 16:40 PTH Intact 69.4 pg/mL (15-65) H 03/20/24 04:30 Calcium (PTH Intact) 8.8 mg/dL (8.5-10.5) 03/20/24 04:30 Nasal MRSA (PCR) Not detected (Not Detecte) 03/18/24 12:15 Random Vancomycin 18.2 ug/mL (20.0-40.0) L 03/22/24 05:33 Ethyl Alcohol < 10 mg/dL (0-10) 03/14/24 16:40 SARS-CoV-2 Ag (Rapid) negative (Negative) 03/23/24 13:01 Vitals Last Vital Signs Temp 98.0 F 03/23/24 11:47 Pulse 68 03/23/24 11:47 Resp 16 03/23/24 11:47 BP 109/59 03/23/24 11:47 Pulse Ox 93 03/23/24 11:47 O2 Del Method Nasal Cannula 03/23/24 11:47 O2 Flow Rate 2 03/22/24 16:00 Discharge Plan Discharge Patient Disposition: Xfer SNF Condition: Stable Prescriptions: New fluconazole 100 mg Tablet 100 mg PO DAILY 4 Days Qty: 4 0RF midodrine 5 mg Tablet 10 mg PO DIALYSIS 30 Days Qty: 30 0RF tramadol 50 mg Tablet 50 mg PO Q12H PRN (Reason: Moderate Pain) 5 Days Qty: 10 0RF clotrimazole-betamethasone 1-0.05 % cream 1 applic topical BID 14 Days Qty: 45 1RF mupirocin 2 % ointment 1 applic topical BID Qty: 15 1RF metoprolol succinate 25 mg tablet extended release 24 hr 12.5 mg PO DAILY Qty: 30 0RF Continued (DME) Dexcom G6 Semiconductor Engineer Misc See Rx Instructions .Route Qty: 1 0RF Rx Instructions: Check BS continuously (DME) Dexcom G6 Sensor Device See Rx Instructions .Route Qty: 9 3RF Rx Instructions: Change every 10 days. (DME) Dexcom G6 Transmitter Device See Rx Instructions .Route Qty: 3 3RF Rx Instructions: Change every 90 days. carbidopa-levodopa 25-100 mg tablet 1 tab PO DAILY Rx Instructions: TAKE 0.5 (1/2) TABLET BY MOUTH BEFORE DIALYSIS. Auryxia 210 mg iron tablet 630 mg PO TID@08,12,20 Rx Instructions: TAKE WITH MEALS clopidogrel 75 mg tablet 75 mg PO DAILY Qty: 30 0RF escitalopram oxalate 20 mg tablet 20 mg PO DAILY rosuvastatin 20 mg tablet 20 mg PO BEDTIME RenaPlex-D 800 mcg-12.5 mg -2,000 unit tablet 1 tab PO DAILY ropinirole 0.5 mg Tablet 0.5 mg PO QPM levothyroxine 50 mcg tablet 50 mcg PO DAILY cyclobenzaprine 10 mg tablet 10 mg PO Q8H PRN (Reason: MUSCLE SPASMS) Qty: 14 0RF omeprazole 20 mg Capsule,Delayed Release(Dr/Ec) 10 mg PO BEDTIME nystatin 100,000 unit/gram ointment 1 applic TOPICAL TID Changed cetirizine 10 mg Tablet 10 mg PO DAILY PRN (Reason: allergy) Qty: 10 0RF gabapentin 100 mg capsule 100 mg PO BEDTIME Qty: 90 4RF Discontinued sulfamethoxazole-trimethoprim [Bactrim DS] 800-160 mg tablet 1 tab PO .COMPLEX Qty: 7 0RF Rx Instructions: 1 tab orally after each dialysis session; amlodipine 5 mg Tablet 5 mg PO DAILY diphenhydramine HCl 25 mg Tablet 25 mg PO BID PRN (Reason: allergies) metoprolol tartrate 50 mg Tablet 50 mg PO DAILY ibuprofen [Advil Liqui-Gel] 200 mg Capsule 200 mg PO .Q4-6H PRN (Reason: Pain) Discharge Orders: Discharge Order (Routine); Ordered 03/23/24 Ordered By: Yolanda Andrews Other Ambulatory Orders: Sleep Study/Titration (Routine) Timeframe: 2 Weeks Facility: [facility] - Location: [facility] Ordered By: Yolanda Andrews Referrals: [facility] [Outside] Vivienne Schulz MD [Primary Care Provider] - 7-10 days Discharge Diet: Diabetic Discharge Activity: Increase activity as tolerated and As per PT/OT instructions Patient Instructions: Dialysis Nutrition Plan (DC), Hemodialysis (DC), Opioid Safety Discharge Attestations Time Spent in Discharge Care*: greater than 30 min Status at Discharge: Cognitive status at discharge: cognitively intact, Behavioral status at discharge: cooperative, Quality Metrics Clinical Quality Measures [ No reported AMI, CVA or VTE this stay] Coding Level of Care Code Acute Code for Chg Fwd Diagnoses End stage renal disease on dialysis N18.6; Z99.2 Abdominal wall cellulitis L03.311 Rheumatoid arthritis, involving unspecified site, unspecified whether rheumatoid factor present M06.9 Rheumatoid arthritis location: unspecified site Rheumatoid factor presence: unspecified presence
[2024-03-23] MEDS: ibuprofen 200 mg Tablet PO (15:59)
[2024-03-23 16:01] VITALS: BP 109/59; PULSE 68; RESP 16; TEMP 36.7; O2SAT 93
--- NOTE | 2024-03-23 16:08 | PC.NURSE ---
Pt has glucose reading of >600. This was incorrect, and retaken for an accurate reading of 147.
== END 2024-03-23 16:02 | disposition intermediate care facility (04) | DRG 602 ==
PROVIDERS: Family Medicine; Internal Medicine Nephrology; Admitting Provider Internal Medicine; PCP Internal Medicine; Visit Provider Student in an Organized Health Care Education/Training Program
DX: L03.311 Cellulitis of abdominal wall (principal); G92.8 Other toxic encephalopathy; L89.153 Pressure ulcer of sacral region, stage 3; N18.6 End stage renal disease; I13.2 Hypertensive heart and chronic kidney disease with heart failure and with stage 5 chronic kidney disease, or end stage renal disease; E87.1 Hypo-osmolality and hyponatremia; M79.3 Panniculitis, unspecified; E11.22 Type 2 diabetes mellitus with diabetic chronic kidney disease; E11.649 Type 2 diabetes mellitus with hypoglycemia without coma; I50.9 Heart failure, unspecified; M05.9 Rheumatoid arthritis with rheumatoid factor, unspecified; G25.81 Restless legs syndrome; E03.9 Hypothyroidism, unspecified; G47.33 Obstructive sleep apnea (adult) (pediatric); E78.5 Hyperlipidemia, unspecified; D64.89 Other specified anemias; F41.9 Anxiety disorder, unspecified; E87.6 Hypokalemia; E87.70 Fluid overload, unspecified; Z99.2 Dependence on renal dialysis; Z86.73 Personal history of transient ischemic attack (TIA), and cerebral infarction without residual deficits; Z79.02 Long term (current) use of antithrombotics/antiplatelets
CPT/HCPCS: 36415; 36416; 36600; 70450; 72192; 80048; 80051; 80053; 80061; 80202; 80307; 82306; 82310; 82330; 82542; 82728; 82803; 82805; 82962; 83036; 83540; 83550; 83605; 83735; 83880; 83970; 84100; 84145; 84443; 84484; 84550; 85025; 85610; 86140; 87040; 87426; 90935; 93005; 94664; 96372; 97110; 97161; 97167; 97530; 97535; 99213; G0378; G0379; J1450; J1610; J1644; J1650; J1815; J2185; J2270; J2405; J2470; J3370; J7050; J7799; Q3014; Q5105

== ENCOUNTER 2024-03-27 08:17 | Inpatient (IN) | payer OTHER, MEDICAID, SELFPAY ==
[2024-03-27] VITALS (12 sets, daily range): BP systolic 108–136; BP diastolic 40–96; PULSE 90–101; RESP 12–20; TEMP 36.4–36.9; O2SAT 90–100; BMI 35.2
--- NOTE | 2024-03-27 08:22 | XRR_ITS ---
PROCEDURE INFORMATION: Exam: XR Chest Exam date and time: 03/27/2024 8:29 AM Age: 58 years old Clinical indication: Cough and dyspnea; Patient HX: AMS; Additional info: Dyspnea/cough TECHNIQUE: Imaging protocol: Radiologic exam of the chest. Views: 1 view. COMPARISON: CR XR chest 1V portable [id number] 12/27/2023 9:39 AM FINDINGS: Lungs: Moderate bronchovascular prominence and interstitial thickening bilaterally. Pleural spaces: The left costophrenic angle is obscured possibly relating to small left pleural effusion and/or atelectasis. No right-sided pleural effusion. No definitive pneumothorax. Heart/Mediastinum: Moderate cardiomegaly. Bones/joints: Partially visualized cervical fixation hardware. XR/XR chest 1V portable [id number] IMPRESSION: Moderate cardiomegaly with small left pleural effusion and findings compatible with pulmonary edema.
--- NOTE | 2024-03-27 08:25 | ECG_ITS ---
[employer] Test Date: 2024-03-27 Pat Name: Elvi Kaiser Department: Room: Gender: Female Research Group Director: : [id number] Requested By: Jd Morillo Order Number: [id number] Doug MD: tSoney Montoya M.D. Measurements Intervals [place] Rate: 97 P: 67 CO: 201 QRS: -59 QRSD: 101 T: 120 QT: 367 QTc: 467 Interpretive Statements SINUS RHYTHM LEFT AXIS DEVIATION [QRS AXIS < -30] LOW QRS VOLTAGE IN PRECORDIAL LEADS [QRS DEFLECTION < 1.0 mV IN CHEST LEADS] INCOMPLETE RIGHT BUNDLE BRANCH BLOCK [90+ ms QRS DURATION, TERMINAL R IN V1/V2, 40+ ms S IN I/aVL/V4/V5/V6] POSSIBLE ANTERIOR MYOCARDIAL INFARCTION , PROBABLY OLD [30 ms Q WAVE IN V3/V4, OR R < 0.2 mV IN V4] Compared to ECG 03/15/2024 03:51:11 Low QRS voltage now present Incomplete right bundle-branch block now present Right bundle-branch block no longer present Myocardial infarct finding still present Electronically Signed On 03-27-2024 15:10:14 SURFACE WATER MANAGER by Stoney Montoya M.D. [id number]
--- NOTE | 2024-03-27 08:36 | PC.PHAR ---
patient from [facility]
--- NOTE | 2024-03-27 08:38 | ED_ITS ---
HPI - Altered Mental Status 2 General: Chief Complaint: Altered Mental Status Stated Complaint: AMS Time Seen by Provider: 03/27/24 08:22 History of Present Illness: 58-year-old female presents emergency ro om from local halfway with altered mental status. Patient has end-stage renal disease and is on dialysis she was supposed to be at dialysis today. She is altered this morning she does have some ecchymosis around her left eye that appears several days old. With almost any stimuli patient states do not hurt me leave me alone etc. She does not answer any specific questions at all. No report of any specific problem per the halfway. Related Data Home Medications Medication Instructions Recorded Confirmed carbidopa 25 mg-levodopa 100 mg 0.5 tab PO DAILY 05/20/20 03/27/24 tablet ferric citrate 210 mg iron tablet 630 mg PO TID@08,,05/20/20 03/27/24 (Auryxia) levothyroxine 50 mcg tablet 50 mcg PO DAILY 08/24/23 03/27/24 omeprazole 20 mg capsule,delayed 10 mg PO BEDTIME 09/16/23 03/27/24 release escitalopram oxalate 20 mg tablet 20 mg PO DAILY 11/02/23 03/27/24 rosuvastatin 20 mg tablet 20 mg PO BEDTIME 11/02/23 03/27/24 vit B,C-folic ac 800 mcg-zinc 12.5 1 tab PO DAILY 11/02/23 03/27/24 mg-selen-D3 2,000 unit-vit E tablet (RenaPlex-D) nystatin 100,000 unit/gram topical 1 applic topical TID 02/20/24 03/27/24 ointment ropinirole 0.5 mg tablet 0.5 mg PO QPM 03/14/24 03/27/24 carbidopa 25 mg-levodopa 100 mg 1 tab PO DAILY 03/27/24 03/27/24 tablet fluconazole 100 mg tablet 100 mg PO DAILY 03/27/24 03/27/24 midodrine 10 mg tablet 10 mg PO DAILY as needed for 03/27/24 03/27/24 dialysis Previous Rx's Medication Instructions Recorded blood-glucose meter,continuous #1 ea 09/24/21 (Dexcom G6 Teletypesetter Monitor) blood-glucose sensor (Dexcom G6 #9 ea 09/24/21 Sensor device) clopidogrel 75 mg tablet 75 mg PO DAILY #30 tabs 11/27/21 blood-glucose transmitter (Dexcom #3 ea 12/24/21 G6 Transmitter device) cyclobenzaprine 10 mg tablet 10 mg PO Q8H PRN MUSCLE SPASMS #14 09/04/23 tabs cetirizine 10 mg tablet 10 mg PO DAILY PRN allergy #10 tabs 03/23/24 clotrimazole-betamethasone 1 1 applic topical BID 2 weeks #45 03/23/24 %-0.05 % topical cream grams gabapentin 100 mg capsule 100 mg PO BEDTIME #90 caps 03/23/24 metoprolol succinate 25 mg 12.5 mg (1/2 x 25 mg) PO DAILY #30 03/23/24 tablet,extended release 24 hr tabs mupirocin 2 % topical ointment 1 applic topical BID #15 grams 03/23/24 tramadol 50 mg tablet 50 mg PO Q12H PRN Moderate Pain 5 03/23/24 days #10 tabs Allergies Allergy/AdvReac Type Severity Reaction Status Date / Time acetaminophen Allergy Unknown ALGY-Hives Verified 01/30/24 11:09 codeine Allergy ALGY-Hives Verified 01/30/24 11:09 fentanyl Allergy ALGY-Hives Verified 01/30/24 11:09 hydrocodone Allergy ALGY-Hives Verified 01/30/24 11:09 influenza virus vaccine qs Allergy ALGY-Hives Verified 01/30/24 11:09 [id number](65 years up) [From [employer] (65y up)(PF)] Iodinated Contrast Media Allergy ALGY-Anaphy Verified 01/30/24 11:09 laxis kiwi Allergy ALGY-Anaphy Verified 01/30/24 11:09 laxis lisinopril Allergy ADR-Cough Verified 01/30/24 11:09 NSAIDS (Non-Steroidal Allergy ALGY-Hives Verified 01/30/24 11:09 Anti-Inflamma oxycodone Allergy ALGY-Hives Verified 01/30/24 11:09 pineapple Allergy ALGY-Anaphy Verified 01/30/24 11:09 laxis promethazine Allergy Unknown Verified 01/30/24 11:09 strawberry Allergy ALGY-Anaphy Verified 01/30/24 11:09 laxis tramadol Allergy ALGY-Hives Verified 01/30/24 11:09 vaccine adjuvant emulsion Allergy ALGY-Hives Verified 01/30/24 11:09 MF59C.1 [From [employer] (65y up)(PF)] Review of Systems 2 General: Reports: ROS unobtainable due to medical condition PFSH ED 2 PFSH: Medical History (Updated 03/27/24 @ 12:40 by Basil Siddiqui MD) Acute encephalopathy End stage renal disease on dialysis Insulin dependent type 2 diabetes mellitus History of infection due to ESBL Escherichia coli Urinary tract infection Metabolic encephalopathy Sacral ulcer Cystitis Cellulitis Encephalopathy Akathisia PAPO (obstructive sleep apnea) UTI (urinary tract infection) Abdominal wall cellulitis Seropositive rheumatoid arthritis JENNIFER positive Sacral decubitus ulcer, stage III Cellulitis Cystitis Elevated troponin Hyperkalemia Hyponatremia Sacral decubitus ulcer ESRD (end stage renal disease) Fracture of greater tuberosity of left humerus Fracture of humeral head, left, closed Stage III pressure ulcer of sacral region Decubitus ulcer of sacral region, unstageable Failure to thrive Weakness Toe fracture Contusion of right foot ESRD (end stage renal disease) Rash Left foot pain Long-term insulin use Diabetes type 2, uncontrolled Appetite loss MCI (mild cognitive impairment) Hypothyroidism COVID-19 Hypertension Anxiety ESRD (end stage renal disease) Diabetes Hyperlipidemia Chronic back pain De Quervain's tenosynovitis Surgical History Status post colonoscopy S/P dialysis catheter insertion Removed 07/14/20 S/P arteriovenous (AV) fistula creation History of temporal artery biopsy H/O dilation and curettage H/O section Hx of cholecystectomy History of appendectomy History of carpal tunnel repair H/O neck surgery fusion Family History Father Bleeding disorder Other Diabetes Heart disease Hyperlipidemia Hypertension Kidney problem Migraines Stroke Denies family history of Anesthesia complication Social History Smoking and tobacco/nicotine status: never used tobacco/nicotine Second hand smoke exposure: No Alcohol intake: never Substance/Drug Use: never Adopted: No Caregiver/support person: Yes Lives independently: Yes Household members: family Housing: House Marital status: Single Highest education level completed: High School Graduate service: No Current occupational status: disabled Current occupational exposures/hazards: No Pets and animals: Yes Pets & animals: dog(s) Sexually active: No Do you think of yourself as: Straight/Heterosexual Current gender identity: Female Sabina/Sikhism: Samaritan Special sabina needs: No Agree to transfusion: No Physical Exam 2 HENMT: COMMON NORMALS: normocephalic and atraumatic HEAD & SCALP: n ormocephalic and atraumatic Resp: COMMON NORMALS: normal respiratory effort, No retractions, No use of accessory muscles and clear to auscultation bilaterally AUSCULTATION: clear to auscultation bilaterally Cardio: COMMON NORMALS: regular rate, regular rhythm and No murmurs present (Cardio) RATE: regular rate RHYTHM: regular rhythm GI: COMMON NORMALS: Soft to palpation and No hepatosplenomegaly present A USCULTATION: Yes normoactive bowel sounds PALPATION: Yes Soft to palpation, No Tenderness to palpation present (GI), No Guarding due to palpation present (GI) and Yes No hepatosplenomegaly present OTHER: Anasarca above the level of the umbilicus Extremity: OTHER: 2+ pitting edema Skin: OTHER: Sacral decub ulcer. Additionally patient has multiple punctate areas under the pannus and in the groin appear to be resolving staph infections no significant erythema or induration surrounding them dry eschars except under the pannus where there is mucousy fibrin eschar present. No vesicles noted. Healing ulcer on the left heel. Course 2 Vital Signs: Vital signs: Vital Signs Temperature 97.6 F 03/27/24 08:20 Pulse Rate 90 03/27/24 11:07 Respiratory Rate 12 03/27/24 11:07 Blood Pressure 130/71 03/27/24 11:07 Pulse Oximetry 100 03/27/24 11:07 Oxygen Delivery Me thod Room Air 03/27/24 08:20 MDM - Altered Mental Status Medical Decision Making Patient has significant altered mental status with cystitis. Will admit start meropenem previous cultures that showed resistant E. coli with ESBL E. coli. Will admit. Consult nephrology for dialysis. Medical Records I reviewed the patient's medical records. Lab Data I reviewed the patient's lab results. 03/27/24 08:59 03/27/24 08:59 Radiology Impressions Chest X-Ray 03/27/24 08:22 IMPRESSION: Moderate cardiomegaly with small left pleural effusion and findings compatible with pulmonary edema. Head CT 03/27/24 08:39 Impression: 1. No acute intracerebral change. 2. 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 Laboratory Results WBC 6.41 10^3/uL (3.29-11.43) 03/27/24 08:59 RBC 3.21 10^6/uL (3.85-5.65) L 03/27/24 08:59 Hgb 9.30 g/dL (11.27-16.99) L 03/27/24 08:59 Hct 30.6 % (36-47) L 03/27/24 08:59 MCV 95.3 fl (85-98) 03/27/24 08:59 MCH 29.0 pg (27-33) 03/27/24 08:59 MCHC 30.4 g/dL (30-55) 03/27/24 08:59 RDW 18.2 % (12.1-15.1) H 03/27/24 08:59 Plt Count 364 10^3/cmm (157-399) 03/27/24 08:59 MPV 9.9 fL (7.4-10.4) 03/27/24 08:59 Neut % (Auto) 79.1 % 03/27/24 08:59 Lymph % (Auto) 10.3 % 03/27/24 08:59 Tyrrell % (Auto) 10.0 % 03/27/24 08:59 Eos % (Auto) 0.0 % 03/27/24 08:59 Baso % (Auto) 0.3 % 03/27/24 08:59 Neut # (Auto) 5.07 10^3/uL (1.8-7.7) 03/27/24 08:59 Lymph # (Auto) 0.7 10^3/uL (0.8-4.8) L 03/27/24 08:59 Tyrrell # (Auto) 0.6 10^3/uL (0.2-0.9) 03/27/24 08:59 Eos # (Auto) 0.0 10^3/uL (0.0-0.8) 03/27/24 08:59 Baso # (Auto) 0.0 10^3/uL (0.0-0.1) 03/27/24 08:59 Nucleated RBC % (auto) 0 % 03/27/24 08:59 Nucleated RBCs # 0.0 /100WBC 03/27/24 08:59 Sodium 134 mmol/L (136-145) L 03/27/24 08:59 Potassium 4.6 mmol/L (3.5-5.1) 03/27/24 08:59 Chloride 91 mmol/L (98-107) L 03/27/24 08:59 Carbon Dioxide 26 mmol/L (22-29) 03/27/24 08:59 Anion Gap 21.6 (5-19) H 03/27/24 08:59 BUN 18 mg/dL (6-20) 03/27/24 08:59 Creatinine 3.3 mg/dL (0.5-0.9) H 03/27/24 08:59 GFR Calculation 14.3 mL/min (90-130) L 03/27/24 08:59 Glucose 88 mg/dL (65-115) 03/27/24 08:59 Calculated Osmolality 279 mOsm/kg (285-295) L 03/27/24 08:59 Lactic Acid 2.2 mmol/L (0.5-2.2) 03/27/24 08:59 Calcium 9.0 mg/dL (8.5-10.5) 03/27/24 08:59 Total Bilirubin 0.6 mg/dL (0.15-1.2) 03/27/24 08:59 AST 38 U/L (0-32) H 03/27/24 08:59 ALT 10 U/L (0-33) 03/27/24 08:59 Alkaline Phosphatase 111 U/L (35-105) H 03/27/24 08:59 Ammonia 22 umol/L (11-51) 03/27/24 08:59 Creatine Kinase 372 U/L (26-192) H* 03/27/24 08:59 Troponin T Baseline 98 ng/L (0-10) H 03/27/24 08:59 Total Protein 6.2 g/dL (6.6-8.7) L 03/27/24 08:59 Albumin 3.0 g/dL (3.5-5.2) L 03/27/24 08:59 Globulin 3.2 g/dL (1.3-4.6) 03/27/24 08:59 Urine Color Yellow (Yellow) 03/27/24 08:51 Urine Appearance Turbid (CLEAR) A 03/27/24 08:51 Urine pH Not Reportable 03/27/24 08:51 Ur Specific [place] Not Reportable 03/27/24 08:51 Urine Protein Not Reportable 03/27/24 08:51 Urine Glucose (UA) Not Reportable 03/27/24 08:51 Urine Ketones Not Reportable 03/27/24 08:51 Urine Blood Not Reportable 03/27/24 08:51 Urine Nitrate Not Reportable 03/27/24 08:51 Urine Bilirubin Not Reportable 03/27/24 08:51 Urine Urobilinogen Not Reportable 03/27/24 08:51 Ur Leukocyte Esterase Not Reportable 03/27/24 08:51 Urine RBC 0-4 /hpf (0-2) H 03/27/24 08:51 Urine WBC Too numerous to cnt /hpf (0-5) H 03/27/24 08:51 Ur Squamous Epith Cells 10-15 /hpf (0-5) H 03/27/24 08:51 Amorphous Sediment Not Reportable 03/27/24 08:51 Urine Bacteria 4+ /hpf (NONE) H 03/27/24 08:51 All radiology interpretation(s) finalized by discharge Discharge Plan Discharge Admit Provider: Basil Siddiqui Condition: Stable Coding Level of Care Code ED Inter Com Installer for Danial Barfield
--- NOTE | 2024-03-27 08:39 | CT_ITS ---
WS: [id number] CT scan of the head, 03/27/2024 Clinical Data: Altered mental status Comparison: CT head, 03/15/2024 DLP: 2288.[address] scans at [facility] use at least one of these dose optimization techniques: automated e xposure control; mA and/or kV adjustment per patient size (includes targeted exams where dose is matc hed to clinical indication); or iterative reconstruction. Findings: The right parietal occipital region shows encephalomalacia with dystrophic calcifications. No change is noted. The ventricular system is normal without shift. No recent infarct or hemorrhage is seen. There are no abnormal intracerebral masses. The cerebellum and brainstem are not remarkable. Bony windows of the skull and skull base show no fractures or erosions. The mastoid air cells, supply chain intern al auditory canals, sella turcica, intraorbital contents, and paranasal sinuses are unremarkable. CT/CT head wo con* [id number] Impression: 1. No acute intracerebral change. 2. Encephalomalacia in the right parietal occipital region with dystrophic calc ification from an old CVA unchanged.
[2024-03-27 09:04] LABS: Urine Color Yellow (Yellow)
[2024-03-27 09:05] LABS: UA Manual Slide Review YES; Urine Appearance Turbid (CLEAR)
[2024-03-27 09:09] LABS: Basophils % 0.3 %; Hematocrit 30.6 % (36-47); Lymphocytes # 0.7 10^3/uL (0.8-4.8); Lymphocytes % 10.3 %; Mean Corpuscular HGB Conc 30.4 g/dL (30-55); Mean Corpuscular Volume 95.3 fl (85-98); Mean Platelet Volume 9.9 fL (7.4-10.4); Monocytes # 0.6 10^3/uL (0.2-0.9); Neutrophils # 5.07 10^3/uL (1.8-7.7); Neutrophils % 79.1 %; Nucleated Red Blood Cells % 0 %; Platelet Count 364 10^3/cmm (157-399); Red Blood Count 3.21 10^6/uL (3.85-5.65); Red Cell Distribution Width 18.2 % (12.1-15.1); White Blood Count 6.41 10^3/uL (3.29-11.43)
[2024-03-27 09:13] LABS: RBC Urine 0-4 /hpf (0-2)
[2024-03-27 09:14] LABS: Bacteria Urine 4+ /hpf; WBC Urine TOO NUMEROUS TO CNT /hpf (0-5)
[2024-03-27 09:15] LABS: Add Urine Culture? Yes
[2024-03-27 09:28] LABS: Ammonia 22 umol/L (11-51)
[2024-03-27 09:31] LABS: Alanine Aminotransferase 10 U/L (0-33); Alkaline Phosphatase 111 U/L (35-105); Anion Gap 21.6 (5-19); Aspartate Amino Transferase 38 U/L (0-32); Blood Urea Nitrogen 18 mg/dL (6-20); Carbon Dioxide 26 mmol/L (22-29); Chloride 91 mmol/L (98-107); Creatinine Clr Calc Pharmacy 17.3744; Globulin 3.2 g/dL (1.3-4.6); Glomerular Filtration Rate 14.3 mL/min (90-130); Glucose 88 mg/dL (65-115); Osmolality Calculated 279 mOsm/kg (285-295); Potassium 4.6 mmol/L (3.5-5.1); Sodium 134 mmol/L (136-145); Total Bilirubin 0.6 mg/dL (0.15-1.2); Total Protein 6.2 g/dL (6.6-8.7)
[2024-03-27 09:32] LABS: Lactic Sepsis W/Reflex 2.2 mmol/L (0.5-2.2); Troponin(5th) Baseline 98 ng/L (0-10)
[2024-03-27 09:35] LABS: Creatine Phosphokinase 372 U/L (26-192)
--- NOTE | 2024-03-27 10:22 | ECG_ITS ---
[facility] Test Date: 2024-03-27 Pat Name: Elvi Kaiser Department: Room: Gender: Female Long Term Acute Care Registered Nurse: : 1965 Requested By: Jd Morillo Order Number: [id number] Doug MD: Stoney Montoya M.D. Measurements Intervals [place] Rate: 92 P: 197 LA: 126 QRS: -58 QRSD: 104 T: 120 QT: 386 QTc: 478 Interpretive Statements SINUS RHYTHM LEFT AXIS DEVIATION [QRS AXIS < -30] LOW QRS VOLTAGE IN PRECORDIAL LEADS [QRS DEFLECTION < 1.0 mV IN CHEST LEADS] INCOMPLETE RIGHT BUNDLE BRANCH BLOCK [90+ ms QRS DURATION, TERMINAL R IN V1/V2, 40+ ms S IN I/aVL/V4/V5/V6] POSSIBLE ANTERIOR MYOCARDIAL INFARCTION , OF INDETERMINATE AGE [30 ms Q WAVE IN V3/V4, OR R < 0.2 mV IN V4] Compared to ECG 03/27/2024 08:25:54 T-wave abnormality now present Possible ischemia now present Myocardial infarct finding still present Electronically Signed On 03-27-2024 15:13:22 HOME INSURANCE AGENT by Stoney Montoya M.D. [email or web address]
--- NOTE | 2024-03-27 10:55 | PM.HP ---
Providers/Chief Complaint Admitting Physician: Basil Siddiqui MD, hospitalist Primary Care Provider: Vivienne Schulz MD Chief Complaint: AMS History of Present Illness Elvi Kaiser is a 58 year old female presenting from alf with confusion. She was in the hospital from March 15 through March 23 with concern of cellulitis, encephalopathy. She received antibiotics consisting of meropenem and vancomycin. She transition to a local alf. Family reports since Tuesday/Tuesday she had been gradually worsening with thinks been some confusion. residential reports it has been significantly worse in last 24 hours and she has not been eating or drinking much. She has been confused. She has had occasional loose stool. Her heart rate has varied quite a bit. She has not had any fever, vomiting. She is not currently on any antibiotics. Patient herself cannot give much history, but does awaken, and recognizes her sister. Review of Systems General: Reports: 10 or more systems reviewed and unremarkable except in HPI and below Medications/Allergies Home Medications Medication Instructions Recorded Confirmed Last Taken Type carbidopa 25 mg-levodopa 100 mg 0.5 tab PO DAILY 05/20/20 03/27/24 02/20/24 History tablet ferric citrate 210 mg iron tablet 630 mg PO TID@08,12,20 05/20/20 03/27/24 02/20/24 History (Auryxia) blood-glucose meter,continuous #1 ea 09/24/21 03/27/24 Unknown Rx (Dexcom G6 Community Service Officer Coordinator) blood-glucose sensor (Dexcom G6 #9 ea 09/24/21 03/27/24 Unknown Rx Sensor device) clopidogrel 75 mg tablet 75 mg PO DAILY #30 tabs 11/27/21 03/27/24 02/20/24 Rx blood-glucose transmitter (Dexcom #3 ea 12/24/21 03/27/24 Unknown Rx G6 Transmitter device) levothyroxine 50 mcg tablet 50 mcg PO DAILY 08/24/23 03/27/24 02/20/24 History cyclobenzaprine 10 mg tablet 10 mg PO Q8H PRN MUSCLE SPASMS #14 09/04/23 03/27/24 02/20/24 Rx tabs omeprazole 20 mg capsule,delayed 10 mg PO BEDTIME 09/16/23 03/27/24 02/20/24 History release escitalopram oxalate 20 mg tablet 20 mg PO DAILY 11/02/23 03/27/24 02/20/24 History rosuvastatin 20 mg tablet 20 mg PO BEDTIME 11/02/23 03/27/24 02/19/24 History vit B,C-folic ac 800 mcg-zinc 12.5 1 tab PO DAILY 11/02/23 03/27/24 02/20/24 History mg-selen-D3 2,000 unit-vit E tablet (RenaPlex-D) nystatin 100,000 unit/gram topical 1 applic topical TID 02/20/24 03/27/24 Unknown History ointment ropinirole 0.5 mg tablet 0.5 mg PO QPM 03/14/24 03/27/24 Unknown History cetirizine 10 mg tablet 10 mg PO DAILY PRN allergy #10 tabs 03/23/24 03/27/24 Unknown Rx clotrimazole-betamethasone 1 1 applic topical BID 2 weeks #45 03/23/24 03/27/24 Unknown Rx %-0.05 % topical cream grams gabapentin 100 mg capsule 100 mg PO BEDTIME #90 caps 03/23/24 03/27/24 12/26/23 Rx metoprolol succinate 25 mg 12.5 mg (1/2 x 25 mg) PO DAILY #30 03/23/24 03/27/24 Unknown Rx tablet,extended release 24 hr tabs mupirocin 2 % topical ointment 1 applic topical BID #15 grams 03/23/24 03/27/24 Unknown Rx tramadol 50 mg tablet 50 mg PO Q12H PRN Moderate Pain 5 03/23/24 03/27/24 Unknown Rx days #10 tabs carbidopa 25 mg-levodopa 100 mg 1 tab PO DAILY 03/27/24 03/27/24 Unknown History tablet fluconazole 100 mg tablet 100 mg PO DAILY 03/27/24 03/27/24 Unknown History midodrine 10 mg tablet 10 mg PO DAILY as needed for 03/27/24 03/27/24 Unknown History dialysis Allergies Allergy/AdvReac Type Severity Reaction Status Date / Time acetaminophen Allergy Unknown ALGY-Hives Verified 01/30/24 11:09 codeine Allergy ALGY-Hives Verified 01/30/24 11:09 fentanyl Allergy ALGY-Hives Verified 01/30/24 11:09 hydrocodone Allergy ALGY-Hives Verified 01/30/24 11:09 influenza virus vaccine qs Allergy ALGY-Hives Verified 01/30/24 11:09 (65 years up) [From [employer] (65y up)(PF)] Iodinated Contrast Media Allergy ALGY-Anaphy Verified 01/30/24 11:09 laxis kiwi Allergy ALGY-Anaphy Verified 01/30/24 11:09 laxis lisinopril Allergy ADR-Cough Verified 01/30/24 11:09 NSAIDS (Non-Steroidal Allergy ALGY-Hives Verified 01/30/24 11:09 Anti-Inflamma oxycodone Allergy ALGY-Hives Verified 01/30/24 11:09 pineapple Allergy ALGY-Anaphy Verified 01/30/24 11:09 laxis promethazine Allergy Unknown Verified 01/30/24 11:09 strawberry Allergy ALGY-Anaphy Verified 01/30/24 11:09 laxis tramadol Allergy ALGY-Hives Verified 01/30/24 11:09 vaccine adjuvant emulsion Allergy ALGY-Hives Verified 01/30/24 11:09 MF59C.1 [From [employer] (65y up)(PF)] PFSH Acute PFSH: Medical History (Updated 03/27/24 @ 12:40 by Basil Siddiqui MD) Acute encephalopathy End stage renal disease on dialysis Insulin dependent type 2 diabetes mellitus History of infection due to ESBL Escherichia coli Urinary tract infection Metabolic encephalopathy Sacral ulcer Cystitis Cellulitis Encephalopathy Akathisia PAPO (obstructive sleep apnea) UTI (urinary tract infection) Abdominal wall cellulitis Seropositive rheumatoid arthritis JENNIFER positive Sacral decubitus ulcer, stage III Cellulitis Cystitis Elevated troponin Hyperkalemia Hyponatremia Sacral decubitus ulcer ESRD (end stage renal disease) Fracture of greater tuberosity of left humerus Fracture of humeral head, left, closed Stage III pressure ulcer of sacral region Decubitus ulcer of sacral region, unstageable Failure to thrive Weakness Toe fracture Contusion of right foot ESRD (end stage renal disease) Rash Left foot pain Long-term insulin use Diabetes type 2, uncontrolled Appetite loss MCI (mild cognitive impairment) Hypothyroidism COVID-19 Hypertension Anxiety ESRD (end stage renal disease) Diabetes Hyperlipidemia Chronic back pain De Quervain's tenosynovitis Surgical History Status post colonoscopy S/P dialysis catheter insertion Removed 07/14/20 S/P arteriovenous (AV) fistula creation History of temporal artery biopsy H/O dilation and curettage H/O section Hx of cholecystectomy History of appendectomy History of carpal tunnel repair H/O neck surgery fusion Family History Father Bleeding disorder Other Diabetes Heart disease Hyperlipidemia Hypertension Kidney problem Migraines Stroke Denies family history of Anesthesia complication Social History Smoking and tobacco/nicotine status: never used tobacco/nicotine Second hand smoke exposure: No Alcohol intake: never Substance/Drug Use: never Adopted: No Caregiver/support person: Yes Lives independently: Yes Household members: family Housing: House Marital status: Single Highest education level completed: High School Graduate service: No Current occupational status: disabled Current occupational exposures/hazards: No Pets and animals: Yes Pets & animals: dog(s) Sexually active: No Do you think of yourself as: Straight/Heterosexual Current gender identity: Female Sabina/Amish: Oriental Orthodox Special sabina needs: No Agree to transfusion: No Vitals/I&O/Wt Last Vital Signs Temp 97.6 F 03/27/24 08:20 Pulse 100 03/27/24 08:20 Resp 16 03/27/24 08:20 BP 133/96 03/27/24 08:20 Pulse Ox 92 03/27/24 08:20 O2 Del Method Room Air 03/27/24 08:20 Weight last 48 hrs Weight 81.647 kg Physical Exam Narrative: General exam is a confused white female, who can come alert and answer few simple questions. HEENT: Atraumatic normocephalic. Oropharynx clear Neck is supple no lymphadenopathy thyromegaly Cardiovascular regular rate and rhythm, heart sounds distant Lungs clear no wheezing or crackles Abdomen soft obese. Nontender. Pannus is edematous. Some punctate lesions are noted underneath it consistent with skin breakdown but no overt erythema. exam is deferred Extremities no cyanosis clubbing. Right upper extremity with AV fistula with thrill and bruit. Some fissuring left heel but no overt signs of infection Skin no rash Neuro no obvious focal deficits Back demonstrates a stage II decub, approximately nickel size on sacrum without any erythema or odor or drainage. Data 03/27/24 08:59 03/27/24 08:59 Other Labs: ABG demonstrates pH 7.48, pCO2 35, pO2 66 on room air LFTs are normal with the exception of AST of 38 and alk phos of 111 Lactic acid 2.2 CK3 72 Albumin 3 and calcium 9 Urinalysis with too numerous to count white blood cells, 0-4 reds 4+ bacteria. Blood and urine cultures were obtained Head CT no acute findings. Encephalomalacia in the right paraduodenal occipital region unchanged. I reviewed this as well Chest x-ray small effusions, which I reviewed as well and cardiomegaly. Previous cervical surgery is noted. EKG per my review demonstrates sinus rhythm, left axis deviation, right bundle branch block, incomplete. No obvious acute changes. Ammonia level is 22. Micro: Microbiology 03/27/24 09:00 Blood Culture - Preliminary Blood SPECIMEN COLLECTED 03/27/24 08:58 Blood Culture - Preliminary Blood SPECIMEN COLLECTED A&P Assessment and plan (1) Complicated UTI (urinary tract infection): Patient presents with complicated UTI She has had ESBL multiple times in the past Initiate meropenem Hold off on vancomycin for now. Recent MRSA PCR negative. (2) Acute encephalopathy: Patient with acute encephalopathy presumably secondary to acute UTI Monitor for improvement Avoid medication which we could worsen confusion (3) End stage renal disease on dialysis: Consult nephrology (4) Insulin dependent type 2 diabetes mellitus: Patient with past history of significant diabetes requiring insulin. This has been discontinued secondary to hypoglycemia. Blood sugar is not elevated on admission. Plan Sacral decub, small pressure ulcers and pannus area. Keep pressure off area. Nystatin cream. Multiple other medical problems as outlined in past medical history Full code currently Heparin will be used for DVT prophylaxis Attestations Medical Necessity Statement*: Will need greater than 2 midnight stay for evaluation and treatment of acute encephalopathy and complicated UTI in this patient with end-stage renal disease.. Diagnoses Complicated UTI (urinary tract infection) N39.0 Acute encephalopathy G93.40 End stage renal disease on dialysis N18.6; Z99.2 Insulin dependent type 2 diabetes mellitus E11.9; Z79.4 Time Spent (min) 56
[2024-03-27 11:08] LABS: Reflex Lactate Order REFLEX LACTIC ORDERD
--- NOTE | 2024-03-27 11:27 | PC.NURSE ---
upon pts arrival, another ED RN put an ultrasound IV in pts left upper arm d/t a fistula being in her right arm. pts moving around in the bed caused the IV access to be lost shortly after it being established. this RN contacted Dr Siddiqui in regards to pts peripheral access. provider gave verbal order over the phone for a PICC line to be put in. this RN put in the order and contacted catracho Howard and gave her information on the pt and procedure needed. Anita stated that there is someone in house that can do the PICC line and she will let her know.
--- NOTE | 2024-03-27 12:22 | XR_ITS ---
WS: [id number] Portable AP semiupright chest, 03/27/2024 Clinical Data: POST PICC INSERTION Comparison: Portable chest, 03/27/2024, 0831 hours Findings: The left PICC line has entered the superior vena cava and ends in the midportion. No pneumo thorax is seen. XR/XR chest 1V portable [id number] Impression: Satisfactory insertion of left PICC line.
[2024-03-27 12:30] LABS: ABG PCO2 35.1 mmHg (35-45); ABG PH Result 7.48 (7.35-7.45); Alveolar-Arterial Oxygen Gradi 5.4 mmHg (5-10); Arterial Blood Gas Hematocrit 28.2 % (37-47); Base Excess ABG 2.4 mmol/L (-2.0-2.0); Blood Gas Allen Test Pos; Blood Gas Operator Identificat AMH; Blood Gas Sample Site Radial, left; Blood Gas Sample Type Arterial; Carboxyhemoglobin 1.7 %THgb (0.4-20.1); HCO3 ABG 25.9 mmol/L (22-26); HGB O2 Sat 90.1 % (95-100); Ionized Calcium Level - ABG 1.1 mmol/L (1.1-1.4); Oxygen Device ROOM AIR; Oxygen Saturation ABG 92.6; PO2 ABG 65.6 mmHg (80.0-100.0); PO2 FiO2 Ratio Arterial Blood 312; Potassium Level - ABG 4.3 mmol/L (3.5-5.0); Total Hemoglobin 9.2 g/dL (12-16)
[2024-03-27 12:49] LABS: Hepatitis B Surface AB 67.8 (11.5-1000); Hepatitis C Virus Antibody Non-Reactive (Nonreactive)
[2024-03-27 13:03] LABS: Hepatitis B Surface Antigen Non-Reactive (Nonreactive)
--- NOTE | 2024-03-27 13:08 | PC.NURSE ---
PATIENT IN PROCEDURE FOR PICC LINE. PT UNABLE TO TAKE BP DUE TO FISTULA.
[2024-03-27 13:14] LABS: Uric Acid 4.5 mg/dL (2.4-5.7)
[2024-03-27] MEDS: midodrine 5 mg TABLET 10 MG PO (13:41)
[2024-03-27] MEDS: MEROPENEM 2,000 MG in sodium chloride 0.9% (plus) 50 ML 100 MG IV (13:44)
[2024-03-27 14:09] LABS: Lactic Acid level (Lactate) 2.1 mmol/L (0.5-2.2)
[2024-03-27 14:11] LABS: Troponin 5 2HR 92.77 ng/L (0-10)
[2024-03-27 14:15] LABS: Troponin 5 2HR Delta -5.23 ABS# (0-10)
--- NOTE | 2024-03-27 14:15 | PICC.NOTE ---
Double lumen PICC placed to left basilic vein per Jailyn Whittington RN. Referred to vascular access nurse for PICC placement due to poor access. Risks and benefits discussed and informed consent obtained from pt sister, Ketty Boyer. Right arm with fistula in place. Left arm assessed with left basilic vein measuring 5.1 mm, straight, and apparent best choice for placement. Using sterile technique and MST, left basilic vein accessed x 1 stick. Mid-arm circumference measured 10 cm from left AC 48 cm. Trimmed cath 41 cm with 1 cm external length noted. CXR shows tip in SVC, in good position for use per radiologist. Line secured with stat-lock. Insertion site covered with Biopatch and TSM. Report given to bedside nurse, CIARA Guevara.
--- NOTE | 2024-03-27 14:22 | ECG_ITS ---
[facility] Test Date: 2024-03-27 Pat Name: Elvi Kaiser Department: Room: 256 Gender: Female Printer Repair Technician: : [id number] Requested By: Jd Morillo Order Number: [id number] Doug MD: Merced Woods M.D. Measurements Intervals [place] Rate: 92 P: 65 IA: 200 QRS: -62 QRSD: 103 T: 120 QT: 395 QTc: 490 Interpretive Statements SINUS RHYTHM LEFT AXIS DEVIATION [QRS AXIS < -30] LOW QRS VOLTAGE IN PRECORDIAL LEADS [QRS DEFLECTION < 1.0 mV IN CHEST LEADS] INCOMPLETE RIGHT BUNDLE BRANCH BLOCK [90+ ms QRS DURATION, TERMINAL R IN V1/V2, 40+ ms S IN I/aVL/V4/V5/V6] POSSIBLE ANTERIOR MYOCARDIAL INFARCTION , PROBABLY OLD [30 ms Q WAVE IN V3/V4, OR R < 0.2 mV IN V4] Compared to ECG 03/27/2024 10:47:43 No significant changes Electronically Signed On 03-28-2024 21:39:26 CASHIER MANAGER by Merced Woods M.D. [email or web address]
--- NOTE | 2024-03-27 14:57 | PC.HD ---
Heparin 1000 units loading dose administered at 1440 via venous fistula needle per cabana attendant's orders.
[2024-03-27 17:11] LABS: Troponin 5 6HR 84.04 ng/L (0-10)
[2024-03-27 17:12] LABS: Troponin 5 6HR Delta -13.96 ng/L (0-12)
[2024-03-27 17:38] LABS: Glucose Point of Care 74 mg/dL (70-110)
--- NOTE | 2024-03-27 18:36 | PC.HD ---
Toward end of dialysis, patient's BP began trending downwards. Per Dr. Hernandez's instructions, UF rate reduced to 300 mL/emelina. Full UF goal not met: Attempted 1000 mL, removed 935 mL. BP improved after treatment adjustments made.
[2024-03-27] MEDS: nystatin cream 30 gm 1 APPLIC TOPICAL (18:52)
[2024-03-27 20:23] LABS: Glucose Point of Care 82 mg/dL (70-110)
[2024-03-27] MEDS: LORazepam 2 mg/mL INJ 1 mL 1 MG IVP (20:49)
[2024-03-27] MEDS: haloperidol inj 5 mg/mL INJ 1 mL 1 MG IM (23:23)
[2024-03-28] VITALS (8 sets, daily range): BP systolic 112–137; BP diastolic 70–84; PULSE 65–107; RESP 15–19; TEMP 36.4–36.7; O2SAT 90–94; BMI 38.7
[2024-03-28] MEDS: OLANZapine 10 mg VIAL 5 MG IM (02:22)
[2024-03-28] MEDS: meropenem 500 mg SDV IVP ×2 (02:22→12:56)
[2024-03-28 05:42] LABS: Basophils % 0.1 %; Hematocrit 29.1 % (36-47); Lymphocytes # 0.5 10^3/uL (0.8-4.8); Lymphocytes % 6.3 %; Mean Corpuscular HGB Conc 30.2 g/dL (30-55); Mean Corpuscular Hemoglobin 28.9 pg (27-33); Mean Corpuscular Volume 95.4 fl (85-98); Mean Platelet Volume 10.4 fL (7.4-10.4); Monocytes # 0.7 10^3/uL (0.2-0.9); Monocytes % 10.1 %; Neutrophils # 5.89 10^3/uL (1.8-7.7); Neutrophils % 83.1 %; Nucleated Red Blood Cells % 0.3 %; Platelet Count 338 10^3/cmm (157-399); Red Blood Count 3.05 10^6/uL (3.85-5.65); Red Cell Distribution Width 18.9 % (12.1-15.1)
--- NOTE | 2024-03-28 07:50 | PM.PN ---
Subjective Subjective: confused. not able to give a hx. is moaning in bed Medications: Reviewed: Yes Medication Review Details: Current Medications Atorvastatin Calcium (Atorvastatin 40 Mg Tablet) 80 mg PO BEDTIME [facility] Last Admin: 03/27/24 20:40 Dose: Not Given Carbidopa/Levodopa (Carbidopa-Levodopa 25-100mg Tablet) 1 each PO DAILY [facility] Carbidopa/Levodopa (Carbidopa-Levodopa 25-100mg Tablet) 0.5 each PO DAILY [facility] Clopidogrel Bisulfate (Clopidogrel 75 Mg Tablet) 75 mg PO DAILY [facility] Escitalopram Oxalate (Escitalopram 10 Mg Tablet) 20 mg PO DAILY [facility] Fluconazole (Fluconazole 100 Mg Tablet) 100 mg PO DAILY [facility] Heparin Sodium (Porcine) (Heparin 5,000 Unit/Ml Inj 1 Ml) 5,000 unit SUBCUT Q12H [facility] Last Admin: 03/27/24 20:40 Dose: Not Given Albumin Human (Albumin) 12.5 gm in 50 mls @ 60 mls/hr IV PRN PRN PRN Reason: Hypotension and/or symptomatic Levothyroxine Sodium (Levothyroxine 50 Mcg Tablet) 50 mcg PO DAILY [facility] Lorazepam (Lorazepam 2 Mg/Ml Inj 1 Ml) 1 mg IVP ONCE PRN PRN Reason: AGITATION Meropenem (Meropenem 500 Mg Sdv) 500 mg IVP Q12H [facility]; Protocol Last Admin: 03/28/24 02:22 Dose: 500 mg Metoprolol Succinate (Metoprolol Succinate Er (24 Hr) 25 Mg Tablet) 12.5 mg PO DAILY [facility] Midodrine (Midodrine 5 Mg Tablet) 10 mg PO DIALYSIS [facility] Last Admin: 03/27/24 13:41 Dose: 10 mg Nystatin (Nystatin Cream 30 Gm) 1 applic TOPICAL TID [facility] Last Admin: 03/27/24 18:52 Dose: 1 applic Ondansetron HCl (Ondansetron 2 Mg/Ml Sdv 2 Ml) 4 mg IVP Q6H PRN PRN Reason: NAUSEA AND VOMITING Pantoprazole Sodium (Pantoprazole Dr 40 Mg Tablet) 40 mg PO BEDTIME [facility] Last Admin: 03/27/24 20:40 Dose: Not Given Ropinirole HCl (Ropinirole 0.25 Mg Tablet) 0.5 mg PO QPM [facility] Last Admin: 03/27/24 20:40 Dose: Not Given Vitals/I&O/Wt Last Vital Signs Temp 98.1 F 03/28/24 04:01 Pulse 65 03/28/24 04:01 Resp 17 03/28/24 04:01 BP 108/59 03/27/24 19:52 Pulse Ox 92 03/28/24 04:01 O2 Del Method Room Air 03/28/24 04:01 03/27/24 03/28/24 03/28/24 22:59 06:59 14:59 Intake Total 550 / 550 Output Total 1435 / 1435 Balance -885 / -885 Weight last 48 hrs Weight 89.811 kg Weight 90.129 kg Weight 91.5 kg Weight 81.647 kg Physical Exam Narrative: Vital signs noted. afebrile, confused in bed HEENT normocephalic atraumatic. Neck is supple. Lungs clear b/l Heart regular positive S1-S2. Abdomen is soft+ bs, less red, matrix drier tender. sacral decubitus per nurse Extremities legs no edema Neuro she is confused and more lethargic then last week lethargic RUE AVF w/ thrill and bruit. seen and examined using A/V technology- aided by Nurse. Data 03/28/24 04:50 03/27/24 08:59 Micro: Microbiology 03/27/24 09:00 Blood Culture - Preliminary Blood SPECIMEN COLLECTED 03/27/24 08:58 Blood Culture - Preliminary Blood SPECIMEN COLLECTED A&P Assessment and plan (1) End stage renal disease on dialysis: 58-year-old lady, obesity, type 2 diabetes, hyperlipidemia, hypertension. 1. Abdominal wall cellulitis renal dose antibiotics as per Dr. Andrews 2. AMS- she is more confused. 3. ESRD dialysis yesterday. cont Tuesday and Tuesday schedule. 3. hyponatremia: monitor w/ dialysis 4. Blood pressure low- keep off of meds. midodrine for hd 5. Anemia - iron sat 33% ferritin 1362 give rosemary. no iron 6. Calcium of 9 is high, given albumin of 3. monitor pth 69.4- no vit d analouges In the past her PTH RP was 62. repeat from 03-20-24 is pending. seen and examine dw/ AV equipement Plan AMS per [facility] repeat hd tomorrow Attestations Medical Necessity Statement*: AMS Time Spent in Patient Care: 16 - 35 minutes (>than 50% of time spent in counselling and/or direct pt care on unit). Coding Level of Care Code Acute Code for Chg Fwd Diagnoses End stage renal disease on dialysis N18.6; Z99.2
[2024-03-28] MEDS: heparin 5,000 unit/mL INJ 1 mL 5000 UNIT SUBCUT ×2 (08:39→17:42)
--- NOTE | 2024-03-28 10:40 | PC.CHAP ---
Pastoral Care Encounter/Spiritual Assessment Type of Contact [] Declined backpackers manager visit [] Patient/Family/Request visit [] Outpatient visit [] Follow-up visit [] Physician referral [] Code/Alert [] Routine visit [] Staff referral [] Actively dying [x] Patient sleeping [] Family support [] [] Out of room [] Palliative care [] [] Receiving care in room [] Pre-surgical visit [] Trauma [] Long length of stay [] ICU visit [] Other: Relational/Emotional Strength [] Patient feels connected with others/family/visitors/staff [] Distress [] Loneliness/isolation [] Abandonment Spirituality of Patient [] Person of Sabina [] Attends [employer] of their Sabina [] Believes in Prayer [] Reads Bible or Cheondoism materials [] There are Spiritual issues to be addressed Shoer Interventions [] Prayer [] Active listening [] Non-anxious presence [] Spiritual/emotional support [] Crisis/trauma care [] Spiritual counseling [] Bereavement support [] Provided bereavement packet [] Provided Bible/devotional materials [] Provided toy/stuffed animal, coloring book to patient or family member [] Provided Communion [] Anointing/[place] [] Salvation [] Completed spiritual assessment [] Other: Impact on Illness or Injury [] Angry [] Fearful [] Anxious [] Often cries [] Exhaustion [] Unable to work [] Unable to attend jain [] Unable to walk/stand [] Unable to read [] Unable to drive [] Unable to eat/drink [] Unable to sleep [] Unable to be with family [] Patient intubated [] Other: Summary Time spent with patient
[2024-03-28 10:56] LABS: Glucose Point of Care 87 mg/dL (70-110)
[2024-03-28] MEDS: carbidopa-levodopa 25-100mg Tablet 0.5 EACH PO (12:54)
[2024-03-28] MEDS: carbidopa-levodopa 25-100mg Tablet 1 EACH PO (12:54)
[2024-03-28] MEDS: metoprolol succinate ER (24 HR) 25 mg Tablet 12.5 MG PO (12:54)
[2024-03-28] MEDS: escitalopram 10 mg Tablet 20 MG PO (12:55)
[2024-03-28] MEDS: levothyroxine 50 mcg Tablet PO (12:55)
[2024-03-28] MEDS: clopidogrel 75 mg Tablet PO (12:55)
[2024-03-28] MEDS: fluconazole 100 mg Tablet PO (12:55)
--- NOTE | 2024-03-28 13:54 | P.PN_ITS ---
Subjective 2 Subjective: This morning when I evaluated patient she was very confused. When I went back this afternoon, she is alert, oriented and visiting with her parents. She appears to be significantly improved. I visited with her sister yesterday, and she has some waxing and waning symptoms at the intermediate, which are obviously worse when she gets ill. Medications: Reviewed: Yes Vitals/I&O/Wt Last Vital Signs Temp 97.6 F 03/28/24 07:34 Pulse 100 03/28/24 11:44 Resp 18 03/28/24 11:44 BP 126/70 03/28/24 11:44 Pulse Ox 90 03/28/24 11:44 O2 Del Method Room Air 03/28/24 11:44 03/27/24 03/28/24 03/28/24 22:59 06:59 14:59 Intake Total 550 / 550 Output Total 1435 / 1435 Balance -885 / -885 Weight last 48 hrs Weight 89.811 kg Weight 90.129 kg Weight 91.5 kg Weight 81.647 kg Physical Exam 2 Narrative: General exam now alert, conversive Neck is supple no lymphadenopathy thyromegaly Cardiovascular regular rate and rhythm, heart sounds distant Lungs clear no wheezing or crackles Abdomen soft obese. Nontender. Pannus is edematous. Some punctate lesions are noted underneath it consistent with skin breakdown but no overt erythema. exam is deferred Extremities no cyanosis clubbing. Right upper extremity with AV fistula with thrill and bruit. Some fissuring left heel but no overt signs of infection Neuro no focal deficits Data 03/28/24 04:50 03/27/24 08:59 Micro: Microbiology 03/27/24 08:51 Urine Culture - Preliminary Urine Catheterized 03/27/24 09:00 Blood Culture - Preliminary Blood NEGATIVE TO DATE 03/27/24 08:58 Blood Culture - Preliminary Blood NEGATIVE TO DATE A&P Assessment and plan (1) Complicated UTI (urinary tract infection): Patient presents with complicated UTI She has had ESBL multiple times in the past Continue meropenem Hold off on vancomycin for now. Recent MRSA PCR negative. Await urine cultures (2) Acute encephalopathy: Patient with acute encephalopathy presumably secondary to acute UTI Monitor for improvement Avoid medication which we could worsen confusion Improving. Add Zyprexa nightly (3) End stage renal disease on dialysis: Appreciate nephrology consultation (4) Insulin dependent type 2 diabetes mellitus: Patient with past history of significant diabetes requiring insulin. This has been discontinued secondary to hypoglycemia. Blood sugar is not elevated on admission. Plan Sacral decub, small pressure ulcers and pannus area. Keep pressure off area. Nystatin cream. Multiple other medical problems as outlined in past medical history Full code currently Heparin will be used for DVT prophylaxis Attestations 2 Medical Necessity Statement*: Needs continued hospital stay for IV antibiotics secondary to UTI Diagnoses Complicated UTI (urinary tract infection) N39.0 Acute encephalopathy G93.40 End stage renal disease on dialysis N18.6; Z99.2 Insulin dependent type 2 diabetes mellitus E11.9; Z79.4 Time Spent (min) 24
[2024-03-28 16:34] LABS: Glucose Point of Care 109 mg/dL (70-110)
[2024-03-28] MEDS: ropinirole 0.25 mg Tablet 0.5 MG PO (17:43)
[2024-03-28] MEDS: OLANZapine 5 mg ODT PO (20:13)
[2024-03-28] MEDS: atorvastatin 40 mg Tablet 80 MG PO (20:13)
[2024-03-28] MEDS: pantoprazole DR 40 mg Tablet PO (20:13)
[2024-03-28] MEDS: nystatin cream 30 gm 1 APPLIC TOPICAL (20:14)
[2024-03-28 20:49] LABS: Glucose Point of Care 97 mg/dL (70-110)
[2024-03-29] VITALS (10 sets, daily range): BP systolic 115–143; BP diastolic 59–96; PULSE 85–93; RESP 13–18; TEMP 36.4–37.1; O2SAT 90–94
[2024-03-29] MEDS: meropenem 500 mg SDV IVP ×2 (00:25→13:30)
[2024-03-29] MEDS: heparin 5,000 unit/mL INJ 1 mL 5000 UNIT SUBCUT ×2 (05:18→18:42)
[2024-03-29 06:13] LABS: Basophils % 0.2 %; Hematocrit 27.9 % (36-47); Lymphocytes # 0.6 10^3/uL (0.8-4.8); Lymphocytes % 12.3 %; Mean Corpuscular HGB Conc 30.1 g/dL (30-55); Mean Corpuscular Hemoglobin 28.5 pg (27-33); Mean Corpuscular Volume 94.6 fl (85-98); Mean Platelet Volume 10.2 fL (7.4-10.4); Monocytes # 0.6 10^3/uL (0.2-0.9); Monocytes % 11.5 %; Neutrophils # 3.88 10^3/uL (1.8-7.7); Neutrophils % 75.8 %; Nucleated Red Blood Cells % 0 %; Platelet Count 308 10^3/cmm (157-399); Red Blood Count 2.95 10^6/uL (3.85-5.65); Red Cell Distribution Width 18.9 % (12.1-15.1); White Blood Count 5.12 10^3/uL (3.29-11.43)
[2024-03-29 06:29] LABS: Glucose Point of Care 96 mg/dL (70-110)
[2024-03-29 07:17] LABS: Alanine Aminotransferase < 5 U/L (0-33); Albumin Level 2.3 g/dL (3.5-5.2); Alkaline Phosphatase 113 U/L (35-105); Aspartate Amino Transferase 49 U/L (0-32); Blood Urea Nitrogen 15 mg/dL (6-20); Calcium 8.4 mg/dL (8.5-10.5); Carbon Dioxide 26 mmol/L (22-29); Chloride 96 mmol/L (98-107); Creatinine Clr Calc Pharmacy 18.9655; Globulin 3.1 g/dL (1.3-4.6); Glomerular Filtration Rate 15.4 mL/min (90-130); Glucose 83 mg/dL (65-115); Osmolality Calculated 286 mOsm/kg (285-295); Phosphorus 3.4 mg/dL (2.5-4.5); Sodium 138 mmol/L (136-145); Total Bilirubin 0.6 mg/dL (0.15-1.2); Total Protein 5.4 g/dL (6.6-8.7)
--- NOTE | 2024-03-29 08:40 | P.PN_ITS ---
Subjective 2 Subjective: Sleepy this morning but responsive. I will need to check her again later on this afternoon to see if she becomes awake alert and even more appropriate that she did yesterday. I do not see any PRNs given in the night. Medications: Reviewed: Yes Vitals/I&O/Wt Last Vital Signs Temp 97.7 F 03/29/24 07:21 Pulse 91 03/29/24 07:21 Resp 18 03/29/24 07:21 BP 143/81 03/29/24 07:21 Pulse Ox 91 03/29/24 07:21 O2 Del Method Room Air 03/29/24 07:21 03/28/24 03/29/24 03/29/24 22:59 06:59 14:59 Intake Total 480 / 480 0 / 480 Output Total 0 / 0 Balance 480 / 480 0 / 480 Weight last 48 hrs Weight 85.457 kg Weight 89.811 kg Weight 90.129 kg Weight 91.5 kg Physical Exam 2 Narrative: General exam Sleepy, but acknowledges my presence and eventually says hello Neck is supple no lymphadenopathy thyromegaly Cardiovascular regular rate and rhythm, heart sounds distant Lungs clear no wheezing or crackles Abdomen soft obese. Nontender. Pannus is edematous. Some punctate lesions are noted underneath it consistent with skin breakdown but no overt erythema. exam is deferred Extremities no cyanosis clubbing. Right upper extremity with AV fistula with thrill and bruit. Some fissuring left heel but no overt signs of infection Neuro no focal deficits Data 03/29/24 05:28 03/29/24 06:43 Micro: Microbiology 03/27/24 08:51 Urine Culture - Preliminary Urine Catheterized 03/27/24 09:00 Blood Culture - Preliminary Blood NEGATIVE TO DATE 03/27/24 08:58 Blood Culture - Preliminary Blood NEGATIVE TO DATE A&P Assessment and plan (1) Complicated UTI (urinary tract infection): Patient presents with complicated UTI She has had ESBL multiple times in the past Continue meropenem Hold off on vancomycin for now. Recent MRSA PCR negative. Urine culture no growth to date but has been on multiple antibiotics recently. If urine culture does not grow anything she will have presumed ESBL as she has had multiple times in the past and will require 14 days IV treatment. Blood culture negative to date (2) Acute encephalopathy: Patient with acute encephalopathy presumably secondary to acute UTI Appears to be improving Avoid medication which we could worsen confusion Zyprexa 5 mg at night was added yesterday. Will reevaluate later and decide if dose should be decreased to 2.5 mg or current dose should be continued. (3) End stage renal disease on dialysis: Appreciate nephrology consultation Probable dialysis today (4) Insulin dependent type 2 diabetes mellitus: Patient with past history of significant diabetes requiring insulin. This has been discontinued secondary to hypoglycemia. Blood sugar is not elevated on admission. Plan Sacral decub, small pressure ulcers and pannus area. Keep pressure off area. Nystatin cream. May discontinue fluconazole. Multiple other medical problems as outlined in past medical history Full code currently Heparin will be used for DVT prophylaxis Attestations 2 Medical Necessity Statement*: Needs continued hospital stay for IV antibiotics secondary to complicated UTI in this patient with acute encephalopathy that is not completely resolved. Diagnoses Complicated UTI (urinary tract infection) N39.0 Acute encephalopathy G93.40 End stage renal disease on dialysis N18.6; Z99.2 Insulin dependent type 2 diabetes mellitus E11.9; Z79.4 Time Spent (min) 24
[2024-03-29] MEDS: carbidopa-levodopa 25-100mg Tablet 1 EACH PO (09:33)
[2024-03-29] MEDS: carbidopa-levodopa 25-100mg Tablet 0.5 EACH PO (09:33)
[2024-03-29] MEDS: escitalopram 10 mg Tablet 20 MG PO (09:33)
[2024-03-29] MEDS: clopidogrel 75 mg Tablet PO (09:34)
[2024-03-29] MEDS: metoprolol succinate ER (24 HR) 25 mg Tablet 12.5 MG PO (09:34)
[2024-03-29] MEDS: levothyroxine 50 mcg Tablet PO (09:34)
--- NOTE | 2024-03-29 10:31 | PM.PN ---
Subjective Subjective: awake, alert, interactive.denies n/v/f/c/curran/d/sob Medications: Reviewed: Yes Medication Review Details: Current Medications Atorvastatin Calcium (Atorvastatin 40 Mg Tablet) 20 mg PO BEDTIME [facility] Carbidopa/Levodopa (Carbidopa-Levodopa 25-100mg Tablet) 1 each PO DAILY [facility] Last Admin: 03/29/24 09:33 Dose: 1 each Carbidopa/Levodopa (Carbidopa-Levodopa 25-100mg Tablet) 0.5 each PO DAILY [facility] Last Admin: 03/29/24 09:33 Dose: 0.5 each Clopidogrel Bisulfate (Clopidogrel 75 Mg Tablet) 75 mg PO DAILY [facility] Last Admin: 03/29/24 09:34 Dose: 75 mg Escitalopram Oxalate (Escitalopram 10 Mg Tablet) 20 mg PO DAILY [facility] Last Admin: 03/29/24 09:33 Dose: 20 mg Heparin Sodium (Porcine) (Heparin 5,000 Unit/Ml Inj 1 Ml) 5,000 unit SUBCUT Q12H [facility] Last Admin: 03/29/24 05:18 Dose: 5,000 unit Albumin Human (Albumin) 12.5 gm in 50 mls @ 60 mls/hr IV PRN PRN PRN Reason: Hypotension and/or symptomatic Levothyroxine Sodium (Levothyroxine 50 Mcg Tablet) 50 mcg PO DAILY [facility] Last Admin: 03/29/24 09:34 Dose: 50 mcg Meropenem (Meropenem 500 Mg Sdv) 500 mg IVP Q12H [facility]; Protocol Last Admin: 03/29/24 00:25 Dose: 500 mg Metoprolol Succinate (Metoprolol Succinate Er (24 Hr) 25 Mg Tablet) 12.5 mg PO DAILY [facility] Last Admin: 03/29/24 09:34 Dose: 12.5 mg Midodrine (Midodrine 5 Mg Tablet) 10 mg PO DIALYSIS [facility] Last Admin: 03/28/24 12:52 Dose: Not Given Nystatin (Nystatin Cream 30 Gm) 1 applic TOPICAL TID [facility] Last Admin: 03/28/24 20:14 Dose: 1 applic Olanzapine (Olanzapine 5 Mg Odt) 5 mg PO BEDTIME [facility] Last Admin: 03/28/24 20:13 Dose: 5 mg Ondansetron HCl (Ondansetron 2 Mg/Ml Sdv 2 Ml) 4 mg IVP Q6H PRN PRN Reason: NAUSEA AND VOMITING Pantoprazole Sodium (Pantoprazole Dr 40 Mg Tablet) 40 mg PO BEDTIME [facility] Last Admin: 03/28/24 20:13 Dose: 40 mg Ropinirole HCl (Ropinirole 0.25 Mg Tablet) 0.5 mg PO QPM [facility] Last Admin: 03/28/24 17:43 Dose: 0.5 mg Vitals/I&O/Wt Last Vital Signs Temp 97.7 F 03/29/24 08:22 Pulse 91 03/29/24 08:22 Resp 18 03/29/24 08:22 BP 143/81 03/29/24 08:22 Pulse Ox 91 03/29/24 07:21 O2 Del Method Room Air 03/29/24 07:21 03/28/24 03/29/24 03/29/24 22:59 06:59 14:59 Intake Total 480 / 480 0 / 480 Output Total 0 / 0 Balance 480 / 480 0 / 480 Weight last 48 hrs Weight 85.457 kg Weight 89.811 kg Weight 90.129 kg Weight 91.5 kg Physical Exam Narrative: Vital signs noted. afebrile, comfortable in bed HEENT normocephalic atraumatic. Neck is supple. Lungs clear b/l Heart regular positive S1-S2. 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 sacral decubitus per nurse Extremities legs no edema Neuro she is awake, alert, moving, interactive RUE AVF w/ thrill and bruit. seen and examined using A/V technology- aided by Nurse. Data 03/29/24 05:28 03/29/24 06:43 Micro: Microbiology 03/27/24 08:51 Urine Culture - Preliminary Urine Catheterized 03/27/24 09:00 Blood Culture - Preliminary Blood NEGATIVE TO DATE 03/27/24 08:58 Blood Culture - Preliminary Blood NEGATIVE TO DATE A&P Assessment and plan (1) End stage renal disease on dialysis: 58-year-old lady, obesity, type 2 diabetes, hyperlipidemia, hypertension. 1. Abdominal wall cellulitis renal dose antibiotics as per Dr. Andrews 2. AMS- she is more awake and appropriate 3. ESRD dialysis today cont Tuesday and Tuesday schedule. 3. hyponatremia: improved w/ dialysis 4. Blood pressure low- improving. midodrine for hd 5. Anemia - iron sat 33% ferritin 1362 give rosemary. no iron 6. Calcium of 9 is high, given albumin of 3. monitor pth 69.4- no vit d analouges In the past her PTH RP was 62. repeat from 03-20-24 is pending. The case was discussed with the patient's nurse patient overall is improving. . Overall patient is improving. Mental status has improved and blood pressure has improved. seen and examined w/ AV equipement Plan AMS per [facility] repeat hd tomorrow Attestations Medical Necessity Statement*: as per hospitalist Time Spent in Patient Care: 16 - 35 minutes (>than 50% of time spent in counselling and/or direct pt care on unit). Coding Level of Care Code Acute Code for Chg Fwd Diagnoses End stage renal disease on dialysis N18.6; Z99.2
[2024-03-29 10:59] LABS: Glucose Point of Care 96 mg/dL (70-110)
[2024-03-29] MEDS: nystatin cream 30 gm 1 APPLIC TOPICAL ×2 (12:28→20:33)
[2024-03-29] MEDS: midodrine 5 mg TABLET 10 MG PO (12:48)
--- NOTE | 2024-03-29 12:57 | PC.OT ---
OT NOTE: OT orders received. Chart reviewed. OT Evaluation attempted this PM though was completing dialysis. Will attempt evaluation when available. Carlos Garcia, OTR/L
--- NOTE | 2024-03-29 13:21 | PC.HD ---
Prior to HD initiation, patient received po Midodrine. Pre-dialysis BPs ranged from 79/54 to 116/59. Dr. Hernandez, quality consultant, contacted. Per verbal orders, Treatment was initiated with a 300 mL fluid bolus administered at onset. Initial HD BP 124/66; will continue to monitor closely. Heparin 1000 units loading dose administered via venous needle of LAVF at 1310 per quality consultant's orders.
[2024-03-29 16:55] LABS: Glucose Point of Care 89 mg/dL (70-110)
[2024-03-29] MEDS: ropinirole 0.25 mg Tablet 0.5 MG PO (18:42)
[2024-03-29] MEDS: atorvastatin 40 mg Tablet 20 MG PO (20:29)
[2024-03-29] MEDS: OLANZapine 5 mg ODT 2.5 MG PO (20:30)
[2024-03-29] MEDS: pantoprazole DR 40 mg Tablet PO (20:30)
[2024-03-30] VITALS: BP 125/77; PULSE 92; RESP 19; TEMP 36.8; O2SAT 90
[2024-03-30] MEDS: meropenem 500 mg SDV IVP (02:00)
[2024-03-30] MEDS: cyclobenzaprine 10 mg Tablet 5 MG PO (03:51)
[2024-03-30 04:00] VITALS: BP 130/75; PULSE 92; RESP 20; TEMP 36.5; O2SAT 90
[2024-03-30] MEDS: heparin 5,000 unit/mL INJ 1 mL 5000 UNIT SUBCUT (05:17)
[2024-03-30 05:53] LABS: Basophils % 0.2 %; Hematocrit 28.8 % (36-47); Lymphocytes # 0.7 10^3/uL (0.8-4.8); Mean Corpuscular HGB Conc 29.5 g/dL (30-55); Mean Corpuscular Hemoglobin 28.7 pg (27-33); Mean Corpuscular Volume 97.3 fl (85-98); Mean Platelet Volume 10.1 fL (7.4-10.4); Monocytes # 1.1 10^3/uL (0.2-0.9); Monocytes % 18.3 %; Neutrophils # 4.02 10^3/uL (1.8-7.7); Neutrophils % 66.2 %; Nucleated Red Blood Cells % 0.5 %; Platelet Count 316 10^3/cmm (157-399); Red Blood Count 2.96 10^6/uL (3.85-5.65); Red Cell Distribution Width 18.3 % (12.1-15.1); White Blood Count 6.07 10^3/uL (3.29-11.43)
[2024-03-30 06:08] LABS: Alanine Aminotransferase 10 U/L (0-33); Albumin Level 2.5 g/dL (3.5-5.2); Alkaline Phosphatase 135 U/L (35-105); Aspartate Amino Transferase 55 U/L (0-32); Blood Urea Nitrogen 9 mg/dL (6-20); Calcium 8.3 mg/dL (8.5-10.5); Carbon Dioxide 24 mmol/L (22-29); Chloride 97 mmol/L (98-107); Creatinine Clr Calc Pharmacy 24.6488; Globulin 3.2 g/dL (1.3-4.6); Glomerular Filtration Rate 20.7 mL/min (90-130); Glucose 109 mg/dL (65-115); Magnesium 1.9 mg/dL (1.7-2.3); Osmolality Calculated 287 mOsm/kg (285-295); Phosphorus 2.5 mg/dL (2.5-4.5); Sodium 139 mmol/L (136-145); Total Bilirubin 0.8 mg/dL (0.15-1.2); Total Protein 5.7 g/dL (6.6-8.7)
[2024-03-30 06:23] LABS: Glucose Point of Care 112 mg/dL (70-110)
--- NOTE | 2024-03-30 07:38 | PM.PN ---
Subjective Subjective: comfortable , confused in bed.She has no complaints. However she is not able to tell me why she is there. She has no edema no chest pain she is eating. Medications: Reviewed: Yes Medication Review Details: Current Medications Atorvastatin Calcium (Atorvastatin 40 Mg Tablet) 20 mg PO BEDTIME [facility] Last Admin: 03/29/24 20:29 Dose: 20 mg Carbidopa/Levodopa (Carbidopa-Levodopa 25-100mg Tablet) 1 each PO DAILY JAMIE Last Admin: 03/29/24 09:33 Dose: 1 each Carbidopa/Levodopa (Carbidopa-Levodopa 25-100mg Tablet) 0.5 each PO DAILY JAMIE Last Admin: 03/29/24 09:33 Dose: 0.5 each Clopidogrel Bisulfate (Clopidogrel 75 Mg Tablet) 75 mg PO DAILY [facility] Last Admin: 03/29/24 09:34 Dose: 75 mg Cyclobenzaprine HCl (Cyclobenzaprine 10 Mg Tablet) 5 mg PO BID PRN PRN Reason: MUSCLE SPASMS Last Admin: 03/30/24 03:51 Dose: 5 mg Escitalopram Oxalate (Escitalopram 10 Mg Tablet) 20 mg PO DAILY [facility] Last Admin: 03/29/24 09:33 Dose: 20 mg Heparin Sodium (Porcine) (Heparin 5,000 Unit/Ml Inj 1 Ml) 5,000 unit SUBCUT Q12H [facility] Last Admin: 03/30/24 05:17 Dose: 5,000 unit Albumin Human (Albumin) 12.5 gm in 50 mls @ 60 mls/hr IV PRN PRN PRN Reason: Hypotension and/or symptomatic Levothyroxine Sodium (Levothyroxine 50 Mcg Tablet) 50 mcg PO DAILY [facility] Last Admin: 03/29/24 09:34 Dose: 50 mcg Meropenem (Meropenem 500 Mg Sdv) 500 mg IVP Q12H [facility]; Protocol Last Admin: 03/30/24 02:00 Dose: 500 mg Metoprolol Succinate (Metoprolol Succinate Er (24 Hr) 25 Mg Tablet) 12.5 mg PO DAILY JAMIE Last Admin: 03/29/24 09:34 Dose: 12.5 mg Midodrine (Midodrine 5 Mg Tablet) 10 mg PO DIALYSIS [facility] Last Admin: 03/29/24 12:48 Dose: 10 mg Nystatin (Nystatin Cream 30 Gm) 1 applic TOPICAL TID JAMIE Last Admin: 03/29/24 20:33 Dose: 1 applic Olanzapine (Olanzapine 5 Mg Odt) 2.5 mg PO BEDTIME [facility] Last Admin: 03/29/24 20:30 Dose: 2.5 mg Ondansetron HCl (Ondansetron 2 Mg/Ml Sdv 2 Ml) 4 mg IVP Q6H PRN PRN Reason: NAUSEA AND VOMITING Pantoprazole Sodium (Pantoprazole Dr 40 Mg Tablet) 40 mg PO BEDTIME [facility] Last Admin: 03/29/24 20:30 Dose: 40 mg Ropinirole HCl (Ropinirole 0.25 Mg Tablet) 0.5 mg PO QPM [facility] Last Admin: 03/29/24 18:42 Dose: 0.5 mg Vitals/I&O/Wt Last Vital Signs Temp 97.7 F 03/30/24 04:00 Pulse 92 03/30/24 04:00 Resp 20 H 03/30/24 04:00 BP 130/75 03/30/24 04:00 Pulse Ox 90 03/30/24 04:00 O2 Del Method Room Air 03/30/24 04:00 03/29/24 03/30/24 03/30/24 22:59 06:59 14:59 Intake Total 1738 / 1938 0 / 1938 Output Total 1500 / 1500 Balance 238 / 438 0 / 438 Weight last 48 hrs Weight 86.409 kg Weight 89.4 kg Weight 85.457 kg Physical Exam Narrative: Vital signs noted. afebrile, comfortable in bed HEENT normocephalic atraumatic. Neck is supple. Lungs clear b/l Heart regular positive S1-S2. Abdomen is soft+ bs, less red, loom winder tender. sacral decubitus per nurse Extremities - legs haveno edema Neuro she is awake, alert, moving, interactive RUE AVF w/ thrill and bruit. seen and examined using A/V technology- aided by Nurse. Data 03/30/24 05:37 03/30/24 05:37 Micro: Microbiology 03/27/24 08:51 Urine Culture - Final Urine Catheterized A&P Assessment and plan (1) End stage renal disease on dialysis: 58-year-old lady, obesity, type 2 diabetes, hyperlipidemia, hypertension. 1. Abdominal wall cellulitis- renal dose antibiotics as per Dr. Andrews 2. AMS- she is more awake, but still confused 3. ESRD dialysis today cont Tuesday and Tuesday schedule. 3. Blood pressure low- improving. midodrine for hd 4. Anemia - iron sat 33% ferritin 1362 give rosemary. no iron 5. Calcium has improved -PTH rp was 62, it is now 59. please assess for cancer The case was discussed with the patient's nurse patient overall is improving. . Overall patient is improving. Mental status has improved and blood pressure has improved. seen and examined w/ AV equipement Plan AMS per [facility] repeat hd tomorrow Attestations Medical Necessity Statement*: per medicine Time Spent in Patient Care: 16 - 35 minutes (>than 50% of time spent in counselling and/or direct pt care on unit). Coding Level of Care Code Acute Code for Chg Fwd Diagnoses End stage renal disease on dialysis N18.6; Z99.2
[2024-03-30 08:00] VITALS: BP 118/71; PULSE 95; RESP 18; TEMP 37.4; O2SAT 93
[2024-03-30] MEDS: levothyroxine 50 mcg Tablet PO (08:04)
[2024-03-30] MEDS: carbidopa-levodopa 25-100mg Tablet 1 EACH PO (08:04)
[2024-03-30] MEDS: carbidopa-levodopa 25-100mg Tablet 0.5 EACH PO (08:05)
[2024-03-30] MEDS: metoprolol succinate ER (24 HR) 25 mg Tablet 12.5 MG PO (08:06)
[2024-03-30] MEDS: escitalopram 10 mg Tablet 20 MG PO (08:06)
[2024-03-30] MEDS: nystatin cream 30 gm 1 APPLIC TOPICAL (08:06)
[2024-03-30] MEDS: clopidogrel 75 mg Tablet PO (08:06)
--- NOTE | 2024-03-30 09:02 | PM.DCS ---
Discharge Providers Date of Admission: 03/27/24 11:15 Date of Discharge: March 30, 2024 Attending Provider at Admission: Basil Siddiqui MD Attending Provider at Discharge: Basil Siddiqui MD Primary Care Provider: Vivienne Schulz MD Diagnoses at Discharge Discharge Diagnosis (1) End stage renal disease on dialysis: Status: Acute Reason for Visit Reason for Visit: AMS Hospital Course Hospital Course Patient is a 58-year-old white female, who presented with acute encephalopathy and UTI, complicated. She has history of ESBL in the past and has been on multiple antibiotics recently. She was placed in the hospital and sedating medication held. She was placed on meropenem for concern of UTI. CT scan that had recently been done did not show any obvious obstruction. Secondary to some agitation Zyprexa was added, and dose adjusted. With these treatments she became alert and oriented. At time of discharge she was afebrile. Urine culture had grown less than 5000 colony count, but considering multiple antibiotics before and urinalysis tumorous numerous to count white blood cells and bacteria and her history of ESBL she will complete 12 more days of IV or ertapenem via PICC. I discussed this with the patient, and her power of assistant district attorney. They were able to ask questions and agreed with the plan. Her Neurontin will be discontinued. She did receive dialysis while inpatient. Physical Exam Narrative: General Exam no distress Neck supple Cardiovascular regular rate and rhythm Lungs clear Abdomen unchanged, some hard induration that is chronic of her lower abdomen and chronic ulcerations that are currently being treated with by wound care Extremities no cyanosis clubbing. AV fistula right upper extremity with thrill and bruit and left sided PICC noted Discharge Data Studies Completed and Pending Completed Studies During Hospitalization Category Date Time Status CT head wo con* [id number] Stat Cat Scan 03/27/24 08:39 Completed CXRP [XR chest 1V portable [id number]] Routine Exams 03/27/24 12:22 Completed XR chest 1V portable [id number] Stat Exams 03/27/24 08:22 Completed Pending at discharge Category Date Time Status Blood Culture Stat Lab 03/27/24 09:00 Results COVID [SARS Covid-2 Antigen] Routine Lab 03/30/24 08:09 Uncollected Comprehensive Metabolic Panel AM LABS Lab 03/31/24 04:00 Ordered Comprehensive Metabolic Panel AM LABS Lab 04/01/24 04:00 Ordered Comprehensive Metabolic Panel AM LABS Lab 04/02/24 04:00 Ordered Magnesium AM LABS Lab 03/31/24 04:00 Ordered Magnesium AM LABS Lab 04/01/24 04:00 Ordered Magnesium AM LABS Lab 04/02/24 04:00 Ordered Phosphorus AM LABS Lab 03/31/24 04:00 Ordered Phosphorus AM LABS Lab 04/01/24 04:00 Ordered Phosphorus AM LABS Lab 04/02/24 04:00 Ordered Radiology Impressions Head CT 03/27/24 08:39 Impression: 1. No acute intracerebral change. 2. 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 Chest X-Ray 03/27/24 12:22 Impression: Satisfactory insertion of left PICC line. Laboratory Results WBC 6.07 10^3/uL (3.29-11.43) 03/30/24 05:37 RBC 2.96 10^6/uL (3.85-5.65) L 03/30/24 05:37 Hgb 8.50 g/dL (11.27-16.99) L 03/30/24 05:37 Hct 28.8 % (36-47) L 03/30/24 05:37 MCV 97.3 fl (85-98) 03/30/24 05:37 MCH 28.7 pg (27-33) 03/30/24 05:37 MCHC 29.5 g/dL (30-55) L 03/30/24 05:37 RDW 18.3 % (12.1-15.1) H 03/30/24 05:37 Plt Count 316 10^3/cmm (157-399) 03/30/24 05:37 MPV 10.1 fL (7.4-10.4) 03/30/24 05:37 Neut % (Auto) 66.2 % 03/30/24 05:37 Lymph % (Auto) 12.0 % 03/30/24 05:37 Hall % (Auto) 18.3 % 03/30/24 05:37 Eos % (Auto) 0.0 % 03/30/24 05:37 Baso % (Auto) 0.2 % 03/30/24 05:37 Neut # (Auto) 4.02 10^3/uL (1.8-7.7) 03/30/24 05:37 Lymph # (Auto) 0.7 10^3/uL (0.8-4.8) L 03/30/24 05:37 Hall # (Auto) 1.1 10^3/uL (0.2-0.9) H 03/30/24 05:37 Eos # (Auto) 0.0 10^3/uL (0.0-0.8) 03/30/24 05:37 Baso # (Auto) 0.0 10^3/uL (0.0-0.1) 03/30/24 05:37 Nucleated RBC % (auto) 0.5 % 03/30/24 05:37 Nucleated RBCs # 0.0 /100WBC 03/30/24 05:37 Specimen Type Arterial 03/27/24 12:19 Sample Site Radial, left 03/27/24 12:19 ABG pH 7.48 (7.35-7.45) H 03/27/24 12:19 ABG pCO2 35.1 mmHg (35-45) 03/27/24 12:19 ABG pO2 65.6 mmHg (80.0-100.0) L 03/27/24 12:19 ABG PO2/FiO2 Ratio 312 03/27/24 12:19 ABG HCO3 25.9 mmol/L (22-26) 03/27/24 12:19 ABG O2 Saturation 92.6 03/27/24 12:19 ABG Base Excess 2.4 mmol/L (-2.0-2.0) H 03/27/24 12:19 Marquis Test Pos 03/27/24 12:19 A-a O2 Gradient 5.4 mmHg (5-10) 03/27/24 12:19 Hematocrit 28.2 % (37-47) L 03/27/24 12:19 Hgb O2 Saturation 90.1 % (95-100) L 03/27/24 12:19 Carboxyhemoglobin 1.7 %THgb (0.4-20.1) 03/27/24 12:19 Methemoglobin 1.0 % (0.4-1.5) 03/27/24 12:19 Total Hemoglobin 9.2 g/dL (12-16) L 03/27/24 12:19 Sodium 130.0 mmol/L (131-143) L 03/27/24 12:19 Potassium 4.3 mmol/L (3.5-5.0) 03/27/24 12:19 Glucose 91.0 mg/dL (70-115) 03/27/24 12:19 Ionized Calcium 1.1 mmol/L (1.1-1.4) 03/27/24 12:19 O2 Delivery Device Room air 03/27/24 12:19 FiO2 21.0 % 03/27/24 12:19 Credit Risk Management Director ID Amh 03/27/24 12:19 Sodium 139 mmol/L (136-145) 03/30/24 05:37 Potassium 4.0 mmol/L (3.5-5.1) 03/30/24 05:37 Chloride 97 mmol/L (98-107) L 03/30/24 05:37 Carbon Dioxide 24 mmol/L (22-29) 03/30/24 05:37 Anion Gap 22.0 (5-19) H 03/30/24 05:37 BUN 9 mg/dL (6-20) 03/30/24 05:37 Creatinine 2.4 mg/dL (0.5-0.9) H 03/30/24 05:37 GFR Calculation 20.7 mL/min (90-130) L 03/30/24 05:37 Glucose 109 mg/dL (65-115) 03/30/24 05:37 POC Glucose 112 mg/dL (70-110) H 03/30/24 06:13 Calculated Osmolality 287 mOsm/kg (285-295) 03/30/24 05:37 Lactic Acid 2.2 mmol/L (0.5-2.2) 03/27/24 08:59 Lactic Acid (Sepsis) 2.1 mmol/L (0.5-2.2) 03/27/24 13:35 Uric Acid 4.5 mg/dL (2.4-5.7) 03/27/24 08:59 Calcium 8.3 mg/dL (8.5-10.5) L 03/30/24 05:37 Phosphorus 2.5 mg/dL (2.5-4.5) 03/30/24 05:37 Magnesium 1.9 mg/dL (1.7-2.3) 03/30/24 05:37 Total Bilirubin 0.8 mg/dL (0.15-1.2) 03/30/24 05:37 AST 55 U/L (0-32) H 03/30/24 05:37 ALT 10 U/L (0-33) 03/30/24 05:37 Alkaline Phosphatase 135 U/L (35-105) H 03/30/24 05:37 Ammonia 22 umol/L (11-51) 03/27/24 08:59 Creatine Kinase 372 U/L (26-192) H* 03/27/24 08:59 Troponin T Baseline 98 ng/L (0-10) H 03/27/24 08:59 Troponin T 120 Minute 92.77 ng/L (0-10) H 03/27/24 13:35 Delta Troponin T -5.23 ABS# (0-10) L 03/27/24 13:35 Troponin T Hi Sens 6Hr 84.04 ng/L (0-10) H 03/27/24 16:22 Troponin T Hi Sens 6Hr Delta -13.96 ng/L (0-12) L 03/27/24 16:22 Total Protein 5.7 g/dL (6.6-8.7) L 03/30/24 05:37 Albumin 2.5 g/dL (3.5-5.2) L 03/30/24 05:37 Globulin 3.2 g/dL (1.3-4.6) 03/30/24 05:37 Urine Color Yellow (Yellow) 03/27/24 08:51 Urine Appearance Turbid (CLEAR) A 03/27/24 08:51 Urine pH Not Reportable 03/27/24 08:51 Ur Specific [place] Not Reportable 03/27/24 08:51 Urine Protein Not Reportable 03/27/24 08:51 Urine Glucose (UA) Not Reportable 03/27/24 08:51 Urine Ketones Not Reportable 03/27/24 08:51 Urine Blood Not Reportable 03/27/24 08:51 Urine Nitrate Not Reportable 03/27/24 08:51 Urine Bilirubin Not Reportable 03/27/24 08:51 Urine Urobilinogen Not Reportable 03/27/24 08:51 Ur Leukocyte Esterase Not Reportable 03/27/24 08:51 Urine RBC 0-4 /hpf (0-2) H 03/27/24 08:51 Urine WBC Too numerous to cnt /hpf (0-5) H 03/27/24 08:51 Ur Squamous Epith Cells 10-15 /hpf (0-5) H 03/27/24 08:51 Amorphous Sediment Not Reportable 03/27/24 08:51 Urine Bacteria 4+ /hpf (NONE) H 03/27/24 08:51 Hep Bs Antigen Non-reactive (Nonreactive) 03/27/24 08:59 Hep Bs Antibody 67.8 (11.5-1000) 03/27/24 08:59 Hepatitis C Antibody Non-reactive (Nonreactive) 03/27/24 08:59 Vitals Last Vital Signs Temp 99.3 F 03/30/24 08:00 Pulse 95 03/30/24 08:00 Resp 18 03/30/24 08:00 BP 118/71 03/30/24 08:00 Pulse Ox 93 03/30/24 08:00 O2 Del Method Room Air 03/30/24 08:00 Discharge Plan Discharge Patient Disposition: Xfer SNF Condition: Stable Prescriptions: New olanzapine 5 mg Tablet,Disintegrating 2.5 mg PO BEDTIME Qty: 15 0RF cyclobenzaprine 10 mg Tablet 5 mg PO BID PRN (Reason: Muscle Spasms) Qty: 20 0RF Continued (DME) Dexcom G6 Critical Care Specialist Misc See Rx Instructions .Route Qty: 1 0RF Rx Instructions: Check BS continuously (DME) Dexcom G6 Sensor Device See Rx Instructions .Route Qty: 9 3RF Rx Instructions: Change every 10 days. (DME) Dexcom G6 Transmitter Device See Rx Instructions .Route Qty: 3 3RF Rx Instructions: Change every 90 days. carbidopa-levodopa 25-100 mg tablet 0.5 tab PO DAILY Rx Instructions: TAKE 0.5 (1/2) TABLET BY MOUTH BEFORE DIALYSIS. Auryxia 210 mg iron tablet 630 mg PO TID@08,,20 Rx Instructions: TAKE WITH MEALS clopidogrel 75 mg tablet 75 mg PO DAILY Qty: 30 0RF escitalopram oxalate 20 mg tablet 20 mg PO DAILY rosuvastatin 20 mg tablet 20 mg PO BEDTIME RenaPlex-D 800 mcg-12.5 mg -2,000 unit tablet 1 tab PO DAILY ropinirole 0.5 mg Tablet 0.5 mg PO QPM clotrimazole-betamethasone 1-0.05 % cream 1 applic topical BID 14 Days Qty: 45 1RF mupirocin 2 % ointment 1 applic topical BID Qty: 15 1RF cetirizine 10 mg Tablet 10 mg PO DAILY PRN (Reason: allergy) Qty: 10 0RF metoprolol succinate 25 mg tablet extended release 24 hr 12.5 mg PO DAILY Qty: 30 0RF levothyroxine 50 mcg tablet 50 mcg PO DAILY omeprazole 20 mg Capsule,Delayed Release(Dr/Ec) 10 mg PO BEDTIME nystatin 100,000 unit/gram ointment 1 applic TOPICAL TID carbidopa-levodopa 25-100 mg Tablet 1 tab PO DAILY midodrine 10 mg Tablet 10 mg PO DAILY Rx Instructions: do not give last dose of day after 6PM or within 4 hrs of bedtime Discontinued tramadol 50 mg Tablet 50 mg PO Q12H PRN (Reason: Moderate Pain) 5 Days Qty: 10 0RF gabapentin 100 mg capsule 100 mg PO BEDTIME Qty: 90 4RF cyclobenzaprine 10 mg tablet 10 mg PO Q8H PRN (Reason: MUSCLE SPASMS) Qty: 14 0RF fluconazole 100 mg Tablet 100 mg PO DAILY Discharge Orders: Discharge Order (Routine); Ordered 03/30/24 Ordered By: Basil Siddiqui Referrals: [facility] [Outside] Vivienne Schulz MD [Primary Care Provider] - Discharge Diet: Diabetic Discharge Activity: Increase activity as tolerated Patient Instructions: Altered Mental Status (ED), Opioid Safety Activity Restrictions/Additional Instructions: Ertapenem 1 g IV every 24 hours for 12 days. After that may remove PICC. Take all medicine as prescribed Oxygen 2 L per nasal cannula for sat less than 88%. Check O2 sat per shift Return for any concerns See primary care provider at half-way facility within 3 to 5 days. Discharge Attestations Time Spent in Discharge Care*: greater than 30 min Status at Discharge: Cognitive status at discharge: cognitively intact, Behavioral status at discharge: cooperative, Quality Metrics Clinical Quality Measures [ No reported AMI, CVA or VTE this stay] Coding Level of Care Code 64867 Total time (in minutes) for Discharge: 46 Diagnoses End stage renal disease on dialysis N18.6; Z99.2
--- NOTE | 2024-03-30 10:46 | PC.SOCIAL ---
IMM Update pg 2 of IMM Updated and reviewed w/ patient's DPOA. Copy provided and copy dated, initialed and placed in chart.
--- NOTE | 2024-03-30 11:56 | PC.NURSE ---
Report called to Rebecca
[2024-03-30 12:00] VITALS: BP 116/51; PULSE 88; RESP 15; TEMP 36.7; O2SAT 92
[2024-03-30 12:55] VITALS: BP 116/51; PULSE 88; RESP 15; TEMP 36.7; O2SAT 92
[2024-03-30 13:43] LABS: SARS Covid-2 Antigen Negative (Negative)
== END 2024-03-30 12:56 | disposition skilled nursing facility (03) | DRG 689 ==
LOC: ER 09:36 → ER IP 11:15 → MEDSURG 13:37
PROVIDERS: Internal Medicine Nephrology; Admitting Provider Internal Medicine; Emergency Provider Family Medicine; PCP Internal Medicine; Visit Provider Internal Medicine
DX: N39.0 Urinary tract infection, site not specified (principal); G93.41 Metabolic encephalopathy; L89.154 Pressure ulcer of sacral region, stage 4; N18.6 End stage renal disease; I12.0 Hypertensive chronic kidney disease with stage 5 chronic kidney disease or end stage renal disease; E87.1 Hypo-osmolality and hyponatremia; L03.311 Cellulitis of abdominal wall; E11.649 Type 2 diabetes mellitus with hypoglycemia without coma; E11.22 Type 2 diabetes mellitus with diabetic chronic kidney disease; G47.33 Obstructive sleep apnea (adult) (pediatric); M05.9 Rheumatoid arthritis with rheumatoid factor, unspecified; G31.84 Mild cognitive impairment of uncertain or unknown etiology; E03.9 Hypothyroidism, unspecified; F41.9 Anxiety disorder, unspecified; E78.5 Hyperlipidemia, unspecified; D63.1 Anemia in chronic kidney disease; G89.29 Other chronic pain; M54.9 Dorsalgia, unspecified; Z99.2 Dependence on renal dialysis; Z79.02 Long term (current) use of antithrombotics/antiplatelets; Z88.5 Allergy status to narcotic agent; Z87.440 Personal history of urinary (tract) infections; Z86.16 Personal history of COVID-19; Z90.49 Acquired absence of other specified parts of digestive tract
CPT/HCPCS: 36415; 36416; 36573; 36592; 36600; 70450; 71045; 80051; 80053; 82140; 82330; 82550; 82805; 82962; 83605; 83735; 84100; 84484; 84550; 85025; 86706; 86803; 87040; 87086; 87340; 87426; 90935; 93005; 96365; 96372; 96375; 97161; 97530; 99291; J1630; J1644; J2060; J2185; J3490

== ENCOUNTER 2024-04-01 12:20 | Emergency (ER) | payer MEDICARE, MEDICAID, SELFPAY ==
[2024-04-01] VITALS (15 sets, daily range): BP systolic 82–143; BP diastolic 31–79; PULSE 94–107; RESP 15–97; TEMP 37.1; O2SAT 90–100; BMI 39.0
--- NOTE | 2024-04-01 12:25 | XRR_ITS ---
PROCEDURE INFORMATION: Exam: XR Chest Exam date and time: 04/01/2024 12:32 PM Age: 58 years old Clinical indication: Other: Weakness; Patient HX: AMS TECHNIQUE: Imaging protocol: Radiologic exam of the chest. Views: 1 view. COMPARISON: CR XR chest 1V portable [id number] 03/27/2024 1:06 PM FINDINGS: Tubes, catheters and devices: Left peripherally inserted PICC line with tip silhouetting of the proximal right atrium. Lungs: Diffuse increase in interstitial lung markings with perhaps [id number] superimposed infiltrates. Pleural spaces: Blunting of the left costophrenic angle, no right costophrenic angle blunting. Heart/Mediastinum: Cardiomegaly. Vasculature: Atherosclerotic disease of the aortic arch. Bones/joints: Cervical spine hardware seen without evidence for acute surgical complication. Chronic posttraumatic change of the proximal left humerus. XR/XR chest 1V portable [id number] IMPRESSION: Findings compatible with CHF/pulmonary edema. Correlate clinically. Difficult to exclude superimposed infection.
--- NOTE | 2024-04-01 12:44 | CTR_ITS ---
PROCEDURE INFORMATION: Exam: CT Head Without Contrast Exam date and time: 04/01/2024 1:12 PM Age: 58 years old Clinical indication: Altered mental status/memory loss; Additional info: Encephalopathy, altered mental status TECHNIQUE: Imaging protocol: Computed tomography of the head without contrast. Radiation optimization: All CT scans at this facility use at least one of these dose optimization techniques: automated exposure control; mA and/or kV adjustment per patient size (includes targeted exams where dose is matched to clinical indication); or iterative reconstruction. COMPARISON: CT head wo con* [id number] 03/27/2024 9:03 AM RADIATION DOSE METRICS: Total DLP (mGy-cm): 1110.49 FINDINGS: Brain: Encephalomalacia in the right posterior MCA territory involving the right temporal and parietal lobes. Age related diffuse parenchymal volume loss. No recent infarct, intracranial bleed or mass effect. Cerebral ventricles: Ex vacuo dilatation of the ventricles. Paranasal sinuses: Visualized sinuses are unremarkable. No fluid levels. Mastoid air cells: Visualized mastoid air cells are well aerated. Orbital cavities: Post bilateral cataract surgery. Bones: Unremarkable. No acute fracture. Soft tissues: Unremarkable. CT/CT head wo con* [id number] IMPRESSION: No large territorial infarct or intracranial bleed.
[2024-04-01 12:47] LABS: Basophils % 0.2 %; Lymphocytes # 0.7 10^3/uL (0.8-4.8); Lymphocytes % 12.1 %; Mean Corpuscular HGB Conc 30.7 g/dL (30-55); Mean Corpuscular Hemoglobin 28.8 pg (27-33); Mean Corpuscular Volume 93.9 fl (85-98); Monocytes # 0.8 10^3/uL (0.2-0.9); Monocytes % 13.6 %; Neutrophils # 4.38 10^3/uL (1.8-7.7); Neutrophils % 73.4 %; Nucleated Red Blood Cells % 0.5 %; Platelet Count 250 10^3/cmm (157-399); Red Blood Count 3.09 10^6/uL (3.85-5.65); Red Cell Distribution Width 20.1 % (12.1-15.1); White Blood Count 5.96 10^3/uL (3.29-11.43)
[2024-04-01 13:04] LABS: Alanine Aminotransferase 22 U/L (0-33); Albumin Level 2.6 g/dL (3.5-5.2); Alkaline Phosphatase 158 U/L (35-105); Anion Gap 19.2 (5-19); Blood Urea Nitrogen 9 mg/dL (6-20); Calcium 8.6 mg/dL (8.5-10.5); Carbon Dioxide 26 mmol/L (22-29); Chloride 93 mmol/L (98-107); Creatinine Clr Calc Pharmacy 25.3355; Globulin 3.4 g/dL (1.3-4.6); Glomerular Filtration Rate 20.7 mL/min (90-130); Glucose 122 mg/dL (65-115); Osmolality Calculated 278 mOsm/kg (285-295); Potassium 4.2 mmol/L (3.5-5.1); Sodium 134 mmol/L (136-145); Total Bilirubin 1.1 mg/dL (0.15-1.2)
[2024-04-01 13:05] LABS: Aspartate Amino Transferase 166 U/L (0-32)
[2024-04-01 13:07] LABS: Urine Color Orange (Yellow)
[2024-04-01 13:08] LABS: Urine Appearance Cloudy (CLEAR)
[2024-04-01 13:09] LABS: RBC Urine 0-4 /hpf (0-2); UA Manual Slide Review YES; UA Slide Review UA Slide Review Perf; WBC Urine 15-25 /hpf (0-5)
[2024-04-01 13:10] LABS: Add Urine Culture? Yes; Bacteria Urine 1+ /hpf
[2024-04-01 13:35] LABS: ABG PCO2 39.9 mmHg (35-45); ABG PH Result 7.47 (7.35-7.45); Arterial Blood Gas Hematocrit 27.3 % (37-47); Base Excess ABG 4.7 mmol/L (-2.0-2.0); Blood Gas Allen Test Pos; Blood Gas Operator Identificat WALCI; Blood Gas Sample Site Radial, left; Blood Gas Sample Type Arterial; Carboxyhemoglobin 1.6 %THgb (0.4-20.1); HCO3 ABG 28.8 mmol/L (22-26); HGB O2 Sat 97.2 % (95-100); Ionized Calcium Level - ABG 1.1 mmol/L (1.1-1.4); Methemoglobin 1.2 % (0.4-1.5); Oxygen Device NC; Oxygen Saturation ABG > 99.1; Potassium Level - ABG 3.2 mmol/L (3.5-5.0); Total Hemoglobin 8.9 g/dL (12-16)
--- NOTE | 2024-04-01 13:38 | ED_ITS ---
HPI - Altered Mental Status 2 General: Chief Complaint: Altered Mental Status Stated Complaint: ams Time Seen by Provider: 04/01/24 12:21 History of Present Illness: 58-year-old female with a history of end -stage renal disease on dialysis, insulin-dependent type 2 diabetes, recurrent urinary tract infections, obstructive sleep apnea, who presents the emergency room with generalized pain and agitation. EMS reports that the skilled nursing reports that she gets worse after she does dialysis usually. They are having trouble treating her pain that they say. She is somewhat agitated but will answer some questions appropriately and others not. No known fevers. No vomiting. She did go to dialysis yesterday. Related Data Home Medications Medication Instructions Recorded Confirmed carbidopa 25 mg-levodopa 100 mg 0.5 tab PO DAILY 05/20/20 03/27/24 tablet ferric citrate 210 mg iron tablet 630 mg PO TID@08,,05/20/20 03/27/24 (Auryxia) levothyroxine 50 mcg tablet 50 mcg PO DAILY 08/24/23 03/27/24 omeprazole 20 mg capsule,delayed 10 mg PO BEDTIME 09/16/23 03/27/24 release escitalopram oxalate 20 mg tablet 20 mg PO DAILY 11/02/23 03/27/24 rosuvastatin 20 mg tablet 20 mg PO BEDTIME 11/02/23 03/27/24 vit B,C-folic ac 800 mcg-zinc 12.5 1 tab PO DAILY 11/02/23 03/27/24 mg-selen-D3 2,000 unit-vit E tablet (RenaPlex-D) nystatin 100,000 unit/gram topical 1 applic topical TID 02/20/24 03/27/24 ointment ropinirole 0.5 mg tablet 0.5 mg PO QPM 03/14/24 03/27/24 carbidopa 25 mg-levodopa 100 mg 1 tab PO DAILY 03/27/24 03/27/24 tablet midodrine 10 mg tablet 10 mg PO DAILY as needed for 03/27/24 03/27/24 dialysis Previous Rx's Medication Instructions Recorded blood-glucose meter,continuous #1 ea 09/24/21 (Dexcom G6 Third Rail Installer) blood-glucose sensor (Dexcom G6 #9 ea 09/24/21 Sensor device) clopidogrel 75 mg tablet 75 mg PO DAILY #30 tabs 11/27/21 blood-glucose transmitter (Dexcom #3 ea 12/24/21 G6 Transmitter device) cetirizine 10 mg tablet 10 mg PO DAILY PRN allergy #10 tabs 03/23/24 clotrimazole-betamethasone 1 1 applic topical BID 2 weeks #45 03/23/24 %-0.05 % topical cream grams metoprolol succinate 25 mg 12.5 mg (1/2 x 25 mg) PO DAILY #30 03/23/24 tablet,extended release 24 hr tabs mupirocin 2 % topical ointment 1 applic topical BID #15 grams 03/23/24 cyclobenzaprine 10 mg tablet 5 mg (1/2 x 10 mg) PO BID PRN 03/30/24 Muscle Spasms #20 tabs olanzapine 5 mg disintegrating 2.5 mg (1/2 x 5 mg) PO BEDTIME #15 03/30/24 tablet tabs diphenhydramine HCl 25 mg capsule 25 mg PO Q8H PRN allergic reaction 04/01/24 (Benadryl) #30 caps tramadol 50 mg tablet 50 mg PO Q8H PRN pain #20 tabs 04/01/24 Allergies Allergy/AdvReac Type Severity Reaction Status Date / Time acetaminophen Allergy Unknown ALGY-Hives Verified 01/30/24 11:09 codeine Allergy ALGY-Hives Verified 01/30/24 11:09 fentanyl Allergy ALGY-Hives Verified 01/30/24 11:09 hydrocodone Allergy ALGY-Hives Verified 01/30/24 11:09 influenza virus vaccine qs Allergy ALGY-Hives Verified 01/30/24 11:09 [id number](65 years up) [From Fluad Quad 2019-(65y up)(PF)] Iodinated Contrast Media Allergy ALGY-Anaphy Verified 01/30/24 11:09 laxis kiwi Allergy ALGY-Anaphy Verified 01/30/24 11:09 laxis lisinopril Allergy ADR-Cough Verified 01/30/24 11:09 NSAIDS (Non-Steroidal Allergy ALGY-Hives Verified 01/30/24 11:09 Anti-Inflamma oxycodone Allergy ALGY-Hives Verified 01/30/24 11:09 pineapple Allergy ALGY-Anaphy Verified 01/30/24 11:09 laxis promethazine Allergy Unknown Verified 01/30/24 11:09 strawberry Allergy ALGY-Anaphy Verified 01/30/24 11:09 laxis tramadol Allergy ALGY-Hives Verified 01/30/24 11:09 vaccine adjuvant emulsion Allergy ALGY-Hives Verified 01/30/24 11:09 [id number] [From [employer] (65y up)(PF)] Review of Systems 2 General: Reports: ROS unobtainable due to medical condition PFSH ED 2 PFSH: Medical History (Updated 04/01/24 @ 15:32 by Tiera Richardson MD) Acute encephalopathy End stage renal disease on dialysis Insulin dependent type 2 diabetes mellitus History of infection due to ESBL Escherichia coli Urinary tract infection Metabolic encephalopathy Sacral ulcer Cystitis Cellulitis Encephalopathy Akathisia PAPO (obstructive sleep apnea) UTI (urinary tract infection) Abdominal wall cellulitis Seropositive rheumatoid arthritis JENNIFER positive Sacral decubitus ulcer, stage III Cellulitis Cystitis Elevated troponin Hyperkalemia Hyponatremia Sacral decubitus ulcer ESRD (end stage renal disease) Fracture of greater tuberosity of left humerus Fracture of humeral head, left, closed Stage III pressure ulcer of sacral region Decubitus ulcer of sacral region, unstageable Failure to thrive Weakness Toe fracture Contusion of right foot ESRD (end stage renal disease) Rash Left foot pain Long-term insulin use Diabetes type 2, uncontrolled Appetite loss MCI (mild cognitive impairment) Hypothyroidism COVID-19 Hypertension Anxiety ESRD (end stage renal disease) Diabetes Hyperlipidemia Chronic back pain De Quervain's tenosynovitis Surgical History Status post colonoscopy S/P dialysis catheter insertion Removed 07/14/20 S/P arteriovenous (AV) fistula creation History of temporal artery biopsy H/O dilation and curettage H/O section Hx of cholecystectomy History of appendectomy History of carpal tunnel repair H/O neck surgery fusion Family History Father Bleeding disorder Other Diabetes Heart disease Hyperlipidemia Hypertension Kidney problem Migraines Stroke Denies family history of Anesthesia complication Social History Smoking and tobacco/nicotine status: never used tobacco/nicotine Second hand smoke exposure: No Alcohol intake: never Substance/Drug Use: never Adopted: No Caregiver/support person: Yes Lives independently: Yes Household members: family Housing: House Marital status: Single Highest education level completed: High School Graduate service: No Current occupational status: disabled Current occupational exposures/hazards: No Pets and animals: Yes Pets & animals: dog(s) Sexually active: No Do you think of yourself as: Straight/Heterosexual Current gender identity: Female Sabina/Rastafari: Sabianism Special sabina needs: No Agree to transfusion: No Physical Exam 2 Narrative: General: Alert, no acute distress. Skin: Warm, dry. PICC line in place in the left upper arm. There is extensive bruising in that area. Head: Normocephalic, atraumatic. Neck: Supple, trachea midline. Eye: Extraocular movements are intact. Ears, nose, mouth and throat: mucosa moist. Cardiovascular: Regular, Normal peripheral perfusion. Respiratory: Lungs are clear to auscultation, respirations are non-labored, breath sounds are equal, Symmetrical chest wall expansion. Gastrointestinal: Soft, Nontender, Non distended Musculoskeletal: Normal ROM, no deformity. Neurological: Patient is alert, she will answer some questions and then starts saying I need my mommy . No focal neurological deficit observed. Psychiatric: Patient somewhat agitated. Unable to assess Course 2 Vital Signs: Vital signs: Vital Signs Temperature 98.7 F 04/01/24 12:25 Pulse Rate 96 04/01/24 15:45 Respiratory Rate 16 04/01/24 15:45 Blood Pressure 119/79 04/01/24 15:30 Pulse Oximetry 100 04/01/24 15:45 Oxygen Delivery Me thod Room Air 04/01/24 15:45 Oxygen Flow Rate 2 04/01/24 13:48 MDM - Altered Mental Status Medical Decision Making Medical decision making: Differential diagnosis including but not limited to and based on the above HPI, review of systems and physical exam: In this patient with altered mental status: Stroke. Hypoglycemia. Metabolic encephalopathy. Infections such as pneumonia, urinary tract infection, Covid-19, Influenza. Electrolyte abnormalities such as hypernatremia. Renal failure / uremia. Hepatic encephalopathy. Hypoxemia. Hypercapnic respiratory failure. Psychosis. Drug or alcohol intoxication. Medication overdose. Orders placed to evaluate differential diagnosis based on the above differential, HPI and physical exam CT head: No acute intracranial process. no intracranial hemorrhage, no evidence of infarct. no evidence of acute fracture.This was reviewed and interpreted by myself the ER physician. CT of the chest without contrast: Pleural effusions and what I think is most likely compressive atelectasis and not pneumonia she is on antibiotics and does not have an elevation in her white count or cough or fevers. This was reviewed and interpreted by myself the emergency room physician. I also reviewed the radiology report. Lab Review: Laboratory results were reviewed and interpreted by myself the emergency room physician. No leukocytosis. Stable anemia with hemoglobin 8.9. BUN/creatinine are 9 and 2.4 which would be expected this dialysis patient. Urine still has a slight bit of infection. Lactic acid is stable at 2.4 mildly elevated. Most likely related to her kidney failure. Is quite a difficult situation. I am not finding anything on the workup today that would justify admission to the hospital rather than going back to the skilled nursing. I reviewed the patient's medical record. Reexamination: Spoke at length with family. Sister is an SHAFT REPAIRER. She feels like a big part of what needs done as pain control. She had listed Ultram as a hives reaction but says that is not the reaction that she has and that she tolerates it. She would like to have that put back on her med list at the skilled nursing. Also had some concern that the mirror might be causing itching. I spoke with family about all these issues at length. Assessment and plan: Generalized pain Pruritus End-stage renal disease on dialysis Altered mental status ? Ultram and Benadryl in the emergency room. - Discharged home - Discussed plan with patient. Answered any questions. - Evaluation and treatment of this problem were appropriate in the emergency setting. Lab Data 04/01/24 12:30 04/01/24 12:[address] 04/01/24 12:44 IMPRESSION: No large territorial infarct or intracranial bleed. Chest CT 04/01/24 13:55 IMPRESSION: 1. Bilateral pleural effusions with lower lobe compressive atelectasis. 2. Patchy ground-glass opacities in both lungs that might be related to congestion versus pneumonia. Laboratory Results WBC 5.96 10^3/uL (3.29-11.43) 04/01/24 12:30 RBC 3.09 10^6/uL (3.85-5.65) L 04/01/24 12:30 Hgb 8.90 g/dL (11.27-16.99) L 04/01/24 12:30 Hct 29.0 % (36-47) L 04/01/24 12:30 MCV 93.9 fl (85-98) 04/01/24 12:30 MCH 28.8 pg (27-33) 04/01/24 12:30 MCHC 30.7 g/dL (30-55) 04/01/24 12:30 RDW 20.1 % (12.1-15.1) H 04/01/24 12:30 Plt Count 250 10^3/cmm (157-399) 04/01/24 12:30 MPV 10.0 fL (7.4-10.4) 04/01/24 12:30 Neut % (Auto) 73.4 % 04/01/24 12:30 Lymph % (Auto) 12.1 % 04/01/24 12:30 Warrick % (Auto) 13.6 % 04/01/24 12:30 Eos % (Auto) 0.0 % 04/01/24 12:30 Baso % (Auto) 0.2 % 04/01/24 12:30 Neut # (Auto) 4.38 10^3/uL (1.8-7.7) 04/01/24 12:30 Lymph # (Auto) 0.7 10^3/uL (0.8-4.8) L 04/01/24 12:30 Warrick # (Auto) 0.8 10^3/uL (0.2-0.9) 04/01/24 12:30 Eos # (Auto) 0.0 10^3/uL (0.0-0.8) 04/01/24 12:30 Baso # (Auto) 0.0 10^3/uL (0.0-0.1) 04/01/24 12:30 Nucleated RBC % (auto) 0.5 % 04/01/24 12:30 Nucleated RBCs # 0.0 /100WBC 04/01/24 12:30 Specimen Type Arterial 04/01/24 13:24 Sample Site Radial, left 04/01/24 13:24 ABG pH 7.47 (7.35-7.45) H 04/01/24 13:24 ABG pCO2 39.9 mmHg (35-45) 04/01/24 13:24 ABG pO2 158.0 mmHg (80.0-100.0) H 04/01/24 13:24 ABG HCO3 28.8 mmol/L (22-26) H 04/01/24 13:24 ABG O2 Saturation > 99.1 04/01/24 13:24 ABG Base Excess 4.7 mmol/L (-2.0-2.0) H 04/01/24 13:24 Marquis Test Pos 04/01/24 13:24 A-a O2 Gradient Not Reportable 04/01/24 13:24 Hematocrit 27.3 % (37-47) L 04/01/24 13:24 Hgb O2 Saturation 97.2 % (95-100) 04/01/24 13:24 Carboxyhemoglobin 1.6 %THgb (0.4-20.1) 04/01/24 13:24 Methemoglobin 1.2 % (0.4-1.5) 04/01/24 13:24 Total Hemoglobin 8.9 g/dL (12-16) L 04/01/24 13:24 Sodium 134.0 mmol/L (131-143) 04/01/24 13:24 Potassium 3.2 mmol/L (3.5-5.0) L 04/01/24 13:24 Glucose 112.0 mg/dL (70-115) 04/01/24 13:24 Ionized Calcium 1.1 mmol/L (1.1-1.4) 04/01/24 13:24 O2 Delivery Device Nc 04/01/24 13:24 O2 Liters/Min 3.0 % 04/01/24 13:24 Supervisor Pipe Manufacture ID [place] 04/01/24 13:24 Sodium 134 mmol/L (136-145) L 04/01/24 12:30 Potassium 4.2 mmol/L (3.5-5.1) 04/01/24 12:30 Chloride 93 mmol/L (98-107) L 04/01/24 12:30 Carbon Dioxide 26 mmol/L (22-29) 04/01/24 12:30 Anion Gap 19.2 (5-19) H 04/01/24 12:30 BUN 9 mg/dL (6-20) 04/01/24 12:30 Creatinine 2.4 mg/dL (0.5-0.9) H 04/01/24 12:30 GFR Calculation 20.7 mL/min (90-130) L 04/01/24 12:30 Glucose 122 mg/dL (65-115) H 04/01/24 12:30 Calculated Osmolality 278 mOsm/kg (285-295) L 04/01/24 12:30 Lactic Acid 2.4 mmol/L (0.5-2.2) H 04/01/24 14:09 Calcium 8.6 mg/dL (8.5-10.5) 04/01/24 12:30 Total Bilirubin 1.1 mg/dL (0.15-1.2) 04/01/24 12:30 AST 166 U/L (0-32) H 04/01/24 12:30 ALT 22 U/L (0-33) 04/01/24 12:30 Alkaline Phosphatase 158 U/L (35-105) H 04/01/24 12:30 Total Protein 6.0 g/dL (6.6-8.7) L 04/01/24 12:30 Albumin 2.6 g/dL (3.5-5.2) L 04/01/24 12:30 Globulin 3.4 g/dL (1.3-4.6) 04/01/24 12:30 Urine Color Good [place] (Yellow) A 04/01/24 12:50 Urine Appearance Cloudy (CLEAR) A 04/01/24 12:50 Urine pH TNP 04/01/24 12:50 Ur Specific [place] TNP 04/01/24 12:50 Urine Protein TNP 04/01/24 12:50 Urine Glucose (UA) TNP 04/01/24 12:50 Urine Ketones TNP 04/01/24 12:50 Urine Blood TNP 04/01/24 12:50 Urine Nitrate TNP 04/01/24 12:50 Urine Bilirubin TNP 04/01/24 12:50 Urine Urobilinogen TNP 04/01/24 12:50 Ur Leukocyte Esterase TNP 04/01/24 12:50 Urine RBC 0-4 /hpf (0-2) H 04/01/24 12:50 Urine WBC 15-25 /hpf (0-5) H 04/01/24 12:50 Ur Squamous Epith Cells 5-10 /hpf (0-5) H 04/01/24 12:50 Amorphous Sediment Not Reportable 04/01/24 12:50 Urine Bacteria 1+ /hpf (NONE) H 04/01/24 12:50 All radiology interpretation(s) finalized by discharge Discharge Plan Discharge Patient Disposition: Home Clinical Impression: Chronic pain, End stage renal disease on dialysis, Encephalopathy Condition: Stable Prescriptions: New tramadol 50 mg tablet 50 mg PO Q8H PRN (Reason: pain) Qty: 20 0RF diphenhydramine HCl [Benadryl] 25 mg capsule 25 mg PO Q8H PRN (Reason: allergic reaction) Qty: 30 0RF Rx Instructions: give with meropenem if she continues to have reaction No Action (DME) Dexcom G6 Third Rail Installer Misc See Rx Instructions .Route Qty: 1 0RF Rx Instructions: Check BS continuously (DME) Dexcom G6 Sensor Device See Rx Instructions .Route Qty: 9 3RF Rx Instructions: Change every 10 days. (DME) Dexcom G6 Transmitter Device See Rx Instructions .Route Qty: 3 3RF Rx Instructions: Change every 90 days. carbidopa-levodopa 25-100 mg tablet 0.5 tab PO DAILY Rx Instructions: TAKE 0.5 (1/2) TABLET BY MOUTH BEFORE DIALYSIS. Auryxia 210 mg iron tablet 630 mg PO TID@08,12,20 Rx Instructions: TAKE WITH MEALS clopidogrel 75 mg tablet 75 mg PO DAILY Qty: 30 0RF escitalopram oxalate 20 mg tablet 20 mg PO DAILY rosuvastatin 20 mg tablet 20 mg PO BEDTIME RenaPlex-D 800 mcg-12.5 mg -2,000 unit tablet 1 tab PO DAILY ropinirole 0.5 mg Tablet 0.5 mg PO QPM clotrimazole-betamethasone 1-0.05 % cream 1 applic topical BID 14 Days Qty: 45 1RF mupirocin 2 % ointment 1 applic topical BID Qty: 15 1RF cetirizine 10 mg Tablet 10 mg PO DAILY PRN (Reason: allergy) Qty: 10 0RF metoprolol succinate 25 mg tablet extended release 24 hr 12.5 mg PO DAILY Qty: 30 0RF levothyroxine 50 mcg tablet 50 mcg PO DAILY omeprazole 20 mg Capsule,Delayed Release(Dr/Ec) 10 mg PO BEDTIME nystatin 100,000 unit/gram ointment 1 applic TOPICAL TID carbidopa-levodopa 25-100 mg Tablet 1 tab PO DAILY midodrine 10 mg Tablet 10 mg PO DAILY Rx Instructions: do not give last dose of day after 6PM or within 4 hrs of bedtime cyclobenzaprine 10 mg Tablet 5 mg PO BID PRN (Reason: Muscle Spasms) Qty: 20 0RF olanzapine 5 mg Tablet,Disintegrating 2.5 mg PO BEDTIME Qty: 15 0RF Discharge Orders: Discharge ED (Routine); Ordered 04/01/24 Ordered By: Tiera Richardson Referrals: Vivienne Schulz MD [Primary Care Provider] - Patient Instructions: Altered Mental Status (ED), Opioid Safety, Pain Management Activity Restrictions/Additional Instructions: Thank you for choosing [facility] for your healthcare needs today. Please realize this is an emergency room and that we are providing you with a medical screening exam and this may not be complete and all inclusive of all the testing and or work up that you may need to determine your ailment or severity of your illness. You have been screened and evaluated and felt safe for discharge. Health conditions do change or evolve sometimes and as such it is important that you follow up with your Primary Doctor to be re checked, 3-5 days is a general good time frame for follow up. You are always welcome to return to the ED for re assessment if your symptoms are worsening or you have new concerns Coding Level of Care Code ED [employer] for Danial Barfield
--- NOTE | 2024-04-01 13:55 | CTR_ITS ---
PROCEDURE INFORMATION: Exam: CT Chest Without Contrast; Diagnostic Exam date and time: 04/01/2024 2:41 PM Age: 58 years old Clinical indication: Abnormal findings; Abnormal radiologic exam of lung or chest; Additional info: Abnormal chest xray TECHNIQUE: Imaging protocol: Diagnostic computed tomography of the chest without contrast. Radiation optimization: All CT scans at this facility use at least one of these dose optimization techniques: automated exposure control; mA and/or kV adjustment per patient size (includes targeted exams where dose is matched to clinical indication); or iterative reconstruction. COMPARISON: CT angio chest PE protcl [id number] 06/21/2020 1:33 AM RADIATION DOSE METRICS: Total DLP (mGy-cm): 558.61 FINDINGS: Lungs: Bilateral patchy ground-glass opacities involving the upper lobes and to a lesser extent right middle lobe. Bilateral lower lobe compressive atelectasis. Pleural spaces: Moderate bilateral pleural effusions. Heart: Decreased density of the blood pool when compared to the ventricular wall, suggestive of anemia. The heart is enlarged. Coronary arteries: There is severe atherosclerotic calcification of the coronary arteries. Lymph nodes: Unremarkable. No enlarged lymph nodes. Vasculature: Unremarkable. No aortic aneurysm. Gallbladder and biliary ducts: There has been a cholecystectomy. Bones/joints: Curvature of the thoracic spine convex to the right. Post ACDF of the lower cervical spine. The thoracic spine demonstrates mild degenerative changes at multiple levels. Soft tissues: Unremarkable. CT/CT chest wo con [id number] IMPRESSION: 1. Bilateral pleural effusions with lower lobe compressive atelectasis. 2. Patchy ground-glass opacities in both lungs that might be related to congestion versus pneumonia.
[2024-04-01] MEDS: TRAMadol 50 mg Tablet PO (14:36)
[2024-04-01] MEDS: diphenhydrAMINE 50 mg/mL SDV 1mL 25 MG IVP (14:39)
[2024-04-01 14:42] LABS: Lactic Sepsis W/Reflex 2.4 mmol/L (0.5-2.2)
[2024-04-01 16:09] LABS: Reflex Lactate Order REFLEX LACTIC ORDERD
== END 2024-04-01 17:43 | disposition home or self-care (01) ==
PROVIDERS: Emergency Provider Emergency Medicine; PCP Internal Medicine
DX: E11.22 Type 2 diabetes mellitus with diabetic chronic kidney disease (principal); I12.0 Hypertensive chronic kidney disease with stage 5 chronic kidney disease or end stage renal disease; N18.6 End stage renal disease; Z99.2 Dependence on renal dialysis; E78.5 Hyperlipidemia, unspecified; G93.40 Encephalopathy, unspecified; Z79.02 Long term (current) use of antithrombotics/antiplatelets; Z79.4 Long term (current) use of insulin
CPT/HCPCS: 36415; 36600; 70450; 71045; 71250; 80051; 80053; 81001; 82330; 82805; 83605; 85025; 87040; 87086; 87106; 96374; 99285; J1200